=== PATIENT | male | born 2000 | race Caucasian/White ===

== ENCOUNTER 2021-07-08 21:49 | Inpatient (IN) | payer MEDICAID, SELFPAY ==
[2021-07-08 22:00] VITALS: BP 147/99; PULSE 80; RESP 16; TEMP 36.8; O2SAT 95
[2021-07-08 22:20] LABS: Basophils # 0.1 10^3/uL (0.0-0.1); Basophils % 0.8 %; Eosinophils # 0.2 10^3/uL (0.0-0.8); Eosinophils % 1.7 %; Hematocrit 43.1 % (42.0-52.0); Hemoglobin 13.6 g/dL (11.7-16.6); Lymphocytes # 1.1 10^3/uL (1.5-6.5); Lymphocytes % 11.6 %; Mean Corpuscular HGB Conc 31.6 g/dL (30.0-36.0); Mean Corpuscular Hemoglobin 30.4 pg (28.0-34.0); Mean Corpuscular Volume 96.2 fl (80-94); Mean Platelet Volume 10.5 fL (7.4-10.4); Monocytes % 10.2 %; Neutrophils # 6.85 10^3/uL (1.8-8.0); Neutrophils % 73.8 %; Nucleated Red Blood Cells % 0 %; Platelet Count 234 10^3/cmm (130-400); Red Blood Count 4.48 10^6/uL (4.1-5.3); Red Cell Distribution Width 13.8 % (12.1-15.1); White Blood Count 9.3 10^3/uL (4.5-13.0)
--- NOTE | 2021-07-08 22:29 | W.ED.PSYCH ---
HPI - Psych General: Chief Complaint: Psychiatric Symptoms Stated Complaint: MHE Time Seen by Provider: 07/08/21 22:11 Source: patient Mode of arrival: ambulatory Limitations: no limitations History of Present Illness: HPI Narrative: 20-year-old male states has been having some increased depression over the last 2 weeks. He states he recently started BuSpar and his depression has been worsening. He states that he voluntarily wants to get help. He states he voluntarily wants him admitted the psych unit. Denies any suicidality or plan. Denies any worsening proving factors. Associated symptoms: Reports depression Review of Systems Const: Denies: fever(s), chills, body aches or change in appetite Eyes: Denies: blurry vision or eye discomfort ENMT: Denies: throat pain or dental pain Card: Denies: chest pain Resp: Denies: dyspnea GI: Denies: abdominal pain, nausea, vomiting or diarrhea : Denies: dysuria Musc: Denies: neck pain or back pain Skin/Breast: Denies: rash Neuro: Denies: headache(s) Psych: Reports: depression Zachary/Lymph: Denies: easy bruising All/Imm: Denies: urticaria PFSH ED PFSH: Social History Smoking and tobacco status: current every day smoker e-cigarettes E-Cigarette Details: vaporizer device and with nicotine E-cig/vape details: 6 mg and smokeless tobacco Smokeless tobacco user: chewing tobacco Smokeless tobacco details: 1 can/3 days. Quit status (tobacco): has tried quititng Number of times tried to quit tobacco: 4 Second hand smoke exposure: No Physical Exam Const: COMMON NORMALS: no acute distress, patient oriented x3 and healthy appearing HENMT: COMMON NORMALS: normocephalic and atraumatic HEAD & SCALP: normocephalic and atraumatic Eye: COMMON NORMALS: Equal, round and reactive pupils present and EOMs intact bilaterally PUPIL: Yes Equal, round and reactive pupils present Neck/C-Spine: COMMON NORMALS: full ROM and supple Chest: COMMONS NORMALS: normal inspection of the chest and normal palpation of entire chest wall Resp: COMMON NORMALS: normal respiratory effort, No retractions, No use of accessory muscles and clear to auscultation bilaterally AUSCULTATION: clear to auscultation bilaterally Cardio: COMMON NORMALS: regular rate, regular rhythm and No murmurs present (Cardio) RATE: regular rate RHYTHM: regular rhythm GI: COMMON NORMALS: Normal to inspection, nondistended, normoactive bowel sounds present, Soft to palpation, non-tender and no masses PALPATION: Yes Soft to palpation Extremity: COMMON NORMALS: normal to inspection and full ROM Neuro: COMMON NORMALS: patient oriented x3, moves all extremities and no focal motor deficits Psych: COMMON NORMALS: mental status grossly normal, Normal thought process present and cooperative THOUGHT PROCESS: Normal thought process present Skin: COMMON NORMALS: no rashes or lesions noted and no wounds GENERAL SKIN EXAM: no rashes or lesions noted Course Vital Signs: Vital signs: Vital Signs Temperature 98.2 F 07/08/21 22:00 Pulse Rate 80 07/08/21 22:00 Respiratory Rate 16 07/08/21 22:00 Blood Pressure 147/99 07/08/21 22:00 Pulse Oximetry 95 07/08/21 22:00 MDM - Psych MDM Narrative: Medical decision making narrative: Patient presents here with depression voluntarily wants to be admitted to the psych facility. Patient is medically cleared I spoke to Dr. Marroquin who is admitting. Lab Data: Labs: Lab Results 07/08/21 22:15 WBC 9.3 10^3/uL 10^3/ uL (4.5-13.0) RBC 4.48 10^6/uL 10^6 /uL (4.1-5.3) Hgb 13.6 g/dL g/dL (11.7-16.6) Hct 43.1 % % (42.0-52.0) MCV 96.2 fl H fl (80-94) MCH 30.4 pg pg (28.0-34.0) MCHC 31.6 g/dL g/dL (30.0-36.0) RDW 13.8 % % (12.1-15.1) Plt Count 234 10^3/cmm 10^3 /cmm (130-400) MPV 10.5 fL H fL (7.4-10.4) Neut % (Auto) 73.8 % % Lymph % (Auto) 11.6 % % Nobles % (Auto) 10.2 % % Eos % (Auto) 1.7 % % Baso % (Auto) 0.8 % % Neut # (Auto) 6.85 10^3/uL 10^3 /uL (1.8-8.0) Lymph # (Auto) 1.1 10^3/uL L 10^ 3/uL (1.5-6.5) Nobles # (Auto) 1.0 10^3/uL H 10^ 3/uL (0.2-0.9) Eos # (Auto) 0.2 10^3/uL 10^3/ uL (0.0-0.8) Baso # (Auto) 0.1 10^3/uL 10^3/ uL (0.0-0.1) Nucleated RBC % (a uto) 0 % % Nucleated RBCs # 0.0 /100WBC /100W BC Discharge Plan Discharge Patient Disposition: Admitted As Inpatient Clinical Impression: Depression Qualifiers: Depression Type: unspecified Qualified Code(s): F32.9 - Major depressive disorder, single episode, unspecified Condition: Stable Coding Level of Care Code ED Steel Rule Die Maker for Diannag Fwd Exam Comprehensive
[2021-07-08 22:49] LABS: Alanine Aminotransferase 21 U/L (0-41); Albumin Level 4.2 g/dL (3.5-5.2); Alkaline Phosphatase 67 IU/L (40-130); Anion Gap 16.1 (5-19); Aspartate Amino Transferase 14 U/L (0-40); Blood Urea Nitrogen 11 mg/dL (6-20); Calcium 9.4 mg/dL (8.5-10.5); Carbon Dioxide 21 mmol/L (22-29); Chloride 107 mmol/L (98-107); Creatinine Clr Calc Pharmacy 130.8733; Globulin 1.9 g/dL (1.3-4.6); Glomerular Filtration Rate 143.8 mL/min (90-130); Glucose 110 mg/dL (65-115); Osmolality Calculated 290 mOsm/kg (285-295); Potassium 4.1 mmol/L (3.5-5.1); Sodium 140 mmol/L (136-145); Total Bilirubin 0.2 mg/dL (0.15-1.2); Total Protein 6.1 g/dL (6.6-8.7)
[2021-07-08 22:56] LABS: Acetaminophen < 5.0 ug/mL (10-30); Alcohol Level < 10 mg/dL (0-10); Salicylate < 0.3 mg/dL (3-10)
[2021-07-08 22:57] LABS: Amphetamines Screen Urine Negative (Negative); Barbiturates Screen Urine Negative (Negative); Benzodiazepines Screen Urine Negative (Negative); Cocaine Screen Urine Negative (Negative); Opiate Screen Urine Negative (Negative); PCP Screen Urine Negative (Negative); THC Screen Urine Positive (Negative)
--- NOTE | 2021-07-08 23:16 | PC.NURSE ---
called NPU to give report and nurse is not at nurses station at this time. stated nurse would call me back for report.
[2021-07-08 23:34] VITALS: RESP 16; TEMP 36.8; O2SAT 95
--- NOTE | 2021-07-08 23:34 | PC.NURSE ---
report called to Anne BELLO npu
[2021-07-08 23:41] VITALS: BP 153/90; PULSE 85; RESP 19; TEMP 36.6; O2SAT 96
[2021-07-09] MEDS: trazodone 50 mg Tablet PO ×2 (00:17→21:23)
[2021-07-09] MEDS: nicotine 2 mg Gum BUCCAL ×2 (00:17→22:28)
[2021-07-09 06:00] VITALS: BP 127/84; PULSE 95; RESP 20; TEMP 36.8; O2SAT 98
[2021-07-09] MEDS: tacrolimus 0.5 mg Capsule 1.5 MG PO ×2 (08:12→21:23)
[2021-07-09] MEDS: labetalol 200 mg Tablet PO ×2 (08:12→21:21)
[2021-07-09] MEDS: pantoprazole DR 40 mg Tablet PO (08:12)
[2021-07-09] MEDS: amlodipine 5 mg Tablet PO (08:12)
[2021-07-09] MEDS: buPROPion XL (24 HR) 150 mg Tablet PO (08:12)
[2021-07-09] MEDS: nicotine 21 mg Patch 1 PATCH TRANSDERMA (09:17)
--- NOTE | 2021-07-09 12:35 | NPU.GN ---
[facility] Topic:Coping Skills General Mood of Group:Refused group.
[2021-07-09 14:00] VITALS: BP 114/71; PULSE 68; RESP 18; TEMP 36.5; O2SAT 96
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
[2021-07-09 20:12] VITALS: BP 130/87; PULSE 72; RESP 15; TEMP 36.6; O2SAT 99
[2021-07-09] MEDS: doxepin 10 mg Capsule PO (21:20)
[2021-07-09 21:21] VITALS: BP 130/87
[2021-07-09] MEDS: losartan 50 mg Tablet 25 MG PO (21:21)
[2021-07-09] MEDS: escitalopram 10 mg Tablet 5 MG PO (21:24)
[2021-07-10 06:00] VITALS: BP 101/63; PULSE 68; RESP 18; TEMP 37.1; O2SAT 96
[2021-07-10] MEDS: amlodipine 5 mg Tablet PO (08:21)
[2021-07-10] MEDS: nicotine 2 mg Gum BUCCAL ×2 (08:21→17:29)
[2021-07-10] MEDS: pantoprazole DR 40 mg Tablet PO (08:21)
[2021-07-10] MEDS: escitalopram 10 mg Tablet PO (08:21)
[2021-07-10] MEDS: buPROPion XL (24 HR) 150 mg Tablet PO (08:22)
[2021-07-10] MEDS: labetalol 200 mg Tablet PO ×2 (08:23→22:07)
[2021-07-10] MEDS: tacrolimus 0.5 mg Capsule 1.5 MG PO ×2 (08:29→22:05)
[2021-07-10] MEDS: nicotine 21 mg Patch 1 PATCH TRANSDERMA (09:32)
[2021-07-10 14:00] VITALS: BP 105/71; PULSE 79; RESP 18; TEMP 36.9; O2SAT 97
--- NOTE | 2021-07-10 16:37 | PM.NPN ---
Subjective NPU Subjective: Interval history: Patient presents today reporting that he is feeling a little better. He denies any clear changes in his mood or depression. However, he does report that he slept as good as he is slept in a long time. And that he feels has lifted his mood a little. He endorses that overall things have been well here and he is optimistic about the possibility that the medication might help. He definitely denied any side effects of the medication. Mental Status Exam MSE Comments: This is a short, diminutive, white male, with hospital scrubs on with adequate grooming and eye contact. No abnormal movements except for psychomotor retardation. Cooperative with exam in no acute distress. Speech was decreased rate and volume. Mood described as depressed, but more optimistic; affect congruent. Thought process, organized. Thought content: patient denied any suicidal or homicidal ideation, there were no delusions reported or noted, patient denied any auditory or visual hallucinations. Attention, concentration, and memory appear intact but were not formally tested. He is alert and oriented times three. Insight and judgment are fair, impulse control limited. Vitals/I&O/Wt Last Vital Signs Temp 98.3 F 07/10/21 22:00 Pulse 87 07/10/21 22:00 Resp 19 H 07/10/21 22:00 BP 113/62 07/10/21 22:07 Pulse Ox 97 07/10/21 22:00 Data NPU : 07/08/21 22:15 07/08/21 22:15 A&P Additional A&P Information (1) Depression: (2) PTSD (post-traumatic stress disorder): (3) Methamphetamine abuse: Additional A&P Information This is a nearly 21-year-old, white male, with a long history of trauma, post-traumatic stress disorder, addiction, and loss, who presents struggling with his depression with a fairly recent medication change, open to changes in his medication. RECOMMENDATION AND PLAN: 1. Continue current medication. 2. Encourage individual, group, and milieu therapy. 3. Continue q-15 minute checks for safety. 4. Encourage sober living treatment after discharge at the highest level of care to which she is willing to commit. Involuntary Hold Information 96 Hour Hold: 96 Hour Involuntary Admission: No Attestations NPU Medical Necessity Statement*: Inpatient hospitalization is medically necessary and the clinically appropriate intervention, at this time. We will monitor medications and make changes as indicated. Likely length of stay is 2-4 days. Coding Level of Care Code Acute Talent Management Manager for Loida Menon
[2021-07-10 22:00] VITALS: BP 113/62; PULSE 87; RESP 19; TEMP 36.8; O2SAT 97
[2021-07-10] MEDS: doxepin 10 mg Capsule PO (22:04)
[2021-07-10] MEDS: trazodone 50 mg Tablet PO (22:06)
[2021-07-10 22:07] VITALS: BP 113/62
[2021-07-10] MEDS: losartan 50 mg Tablet 25 MG PO (22:07)
[2021-07-11 06:00] VITALS: BP 105/68; PULSE 61; RESP 17; TEMP 36.7; O2SAT 97
[2021-07-11] MEDS: tacrolimus 0.5 mg Capsule 1.5 MG PO ×2 (09:18→19:36)
[2021-07-11] MEDS: sulfamethoxazole-trimeth DS 160-800 mg Tablet 0.5 TAB PO (09:19)
[2021-07-11] MEDS: pantoprazole DR 40 mg Tablet PO (09:19)
[2021-07-11] MEDS: buPROPion XL (24 HR) 150 mg Tablet PO (09:19)
[2021-07-11] MEDS: predniSONE 10 mg Tablet PO (09:19)
[2021-07-11] MEDS: amlodipine 5 mg Tablet PO (09:19)
[2021-07-11] MEDS: escitalopram 10 mg Tablet PO (09:19)
[2021-07-11] MEDS: labetalol 200 mg Tablet PO ×2 (09:19→19:38)
[2021-07-11] MEDS: nicotine 21 mg Patch 1 PATCH TRANSDERMA (12:11)
--- NOTE | 2021-07-11 12:36 | PM.NPN ---
Subjective NPU Subjective: Interval history: Patient presents today reporting that he is feeling little bit better. He wondered about the length of time before the medication could be deemed effective though he reports that he does feel better today. We discussed his overall treatment, and making sure he gets in to see a parer since he has not seen one in a year, as well as the possibility of the COVID vaccination which he is currently against getting. We also discussed the risk benefits and alternatives of discharging in the next 48 hours possibly tomorrow and he understood and agreed to proceed as documented in this note. Mental Status Exam MSE Comments: This is a short, diminutive, white male, with hospital scrubs on with adequate grooming and eye contact. No abnormal movements except for psychomotor retardation. Cooperative with exam in no acute distress. Speech was decreased rate and volume. Mood described as a little better; affect congruent. Thought process, organized. Thought content: patient denied any suicidal or homicidal ideation, there were no delusions reported or noted, patient denied any auditory or visual hallucinations. Attention, concentration, and memory appear intact but were not formally tested. He is alert and oriented times three. Insight and judgment are fair, impulse control limited but improving. Vitals/I&O/Wt Last Vital Signs Temp 98.1 F 07/11/21 06:00 Pulse 61 07/11/21 06:00 Resp 17 07/11/21 06:00 BP 105/68 07/11/21 06:00 Pulse Ox 97 07/11/21 06:00 Data NPU : 07/08/21 22:15 07/08/21 22:15 A&P Additional A&P Information (1) Depression: (2) PTSD (post-traumatic stress disorder): (3) Methamphetamine abuse: This is a nearly 21-year-old, white male, with a long history of trauma, post-traumatic stress disorder, addiction, and loss, who presents struggling with his depression with a fairly recent medication change, open to changes in his medication. RECOMMENDATION AND PLAN: 1. Continue current medication. 2. Encourage individual, group, and milieu therapy. 3. Continue q-15 minute checks for safety. 4. Encourage sober living treatment after discharge at the highest level of care to which she is willing to commit. Involuntary Hold Information 96 Hour Hold: 96 Hour Involuntary Admission: No Attestations NPU Medical Necessity Statement*: Inpatient hospitalization is medically necessary and the clinically appropriate intervention, at this time. We will monitor medications and make changes as indicated. Likely length of stay is 1-3 days. Coding Level of Care Code Acute Automotive Brake Technician for Loida Menon
[2021-07-11 14:00] VITALS: BP 115/82; PULSE 71; RESP 20; TEMP 36.5; O2SAT 97
[2021-07-11] MEDS: hyDROXYzine 25 mg Capsule 50 MG PO (19:37)
[2021-07-11] MEDS: nicotine 2 mg Gum BUCCAL (19:37)
[2021-07-11] MEDS: trazodone 50 mg Tablet PO (19:37)
[2021-07-11] MEDS: doxepin 10 mg Capsule PO (19:38)
[2021-07-11] MEDS: losartan 50 mg Tablet 25 MG PO (19:38)
--- NOTE | 2021-07-11 19:40 | PC.NURSE ---
VISTERIL 50MG po GIVEN FOR ANXIETY REASSESSED @2034 PT REPORTS LESS ANXIETY.
[2021-07-11 20:19] VITALS: BP 111/75; PULSE 95; RESP 18; TEMP 36.8; O2SAT 97
[2021-07-12 06:00] VITALS: BP 111/75; PULSE 95; RESP 18; TEMP 36.8; O2SAT 97
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
[2021-07-12 09:02] VITALS: BP 111/75; PULSE 95; RESP 18; TEMP 36.8; O2SAT 97
[2021-07-12] MEDS: sulfamethoxazole-trimeth DS 160-800 mg Tablet 0.5 TAB PO (09:05)
[2021-07-12] MEDS: nicotine 21 mg Patch 1 PATCH TRANSDERMA (09:08)
[2021-07-12] MEDS: tacrolimus 0.5 mg Capsule 1.5 MG PO (09:52)
[2021-07-12] MEDS: predniSONE 10 mg Tablet PO (09:52)
[2021-07-12] MEDS: pantoprazole DR 40 mg Tablet PO (09:52)
[2021-07-12] MEDS: amlodipine 5 mg Tablet PO (09:52)
[2021-07-12] MEDS: labetalol 200 mg Tablet PO (09:53)
[2021-07-12] MEDS: buPROPion XL (24 HR) 150 mg Tablet PO (09:53)
[2021-07-12] MEDS: escitalopram 10 mg Tablet PO (09:53)
--- NOTE | 2021-07-12 15:32 | PC.RESP ---
SMOKING CESSATION INFORMATION SENT TO PATIENT.
== END 2021-07-12 16:00 | disposition home or self-care (01) | DRG 881 ==
LOC: ER 23:25 → NP 23:26
PROVIDERS: Admitting Provider Psychiatry & Neurology Psychiatry; Emergency Provider Emergency Medicine; PCP Family Medicine; Visit Provider Psychiatry & Neurology Psychiatry
DX: F32.9 Major depressive disorder, single episode, unspecified (principal); Z94.0 Kidney transplant status; F43.10 Post-traumatic stress disorder, unspecified; F15.10 Other stimulant abuse, uncomplicated; F12.90 Cannabis use, unspecified, uncomplicated; F17.290 Nicotine dependence, other tobacco product, uncomplicated; F17.220 Nicotine dependence, chewing tobacco, uncomplicated; Z62.810 Personal history of physical and sexual abuse in childhood; Z62.29 Other upbringing away from parents; Z81.8 Family history of other mental and behavioral disorders; Z81.3 Family history of other psychoactive substance abuse and dependence; Z81.1 Family history of alcohol abuse and dependence; Z79.899 Other long term (current) drug therapy
CPT/HCPCS: 80053; 80306; 80307; 85025; 97150; 97165; 99285; J7507; J7512; J7517

== ENCOUNTER → 2021-10-07 13:27 | Outpatient (BNVA) | payer MEDICAID, SELFPAY | PROVIDERS: PCP Family Medicine; Visit Provider Nurse Practitioner Family | DX: Z20.822 Contact with and (suspected) exposure to COVID-19 (principal) | CPT/HCPCS: 87635 ==

== ENCOUNTER 2022-02-03 14:37 | Emergency (ER) | payer MEDICARE, MEDICAID, SELFPAY ==
[2022-02-03 14:49] VITALS: BP 138/60; PULSE 86; RESP 16; TEMP 36.5; O2SAT 98; BMI 20.1
--- NOTE | 2022-02-03 15:05 | W.ED.GENADLT ---
HPI - General Adult General: Chief complaint: Anxiety Stated complaint: depression/anxiety Time Seen by Provider: 02/03/22 14:46 History of Present Illness: Patient is a 21-year-old male with a history anxiety and depression presenting to the emergency room for evaluation of worsening anxiety x 3-4 days. Patient tells me that he has been dealing with anxiety and paranoia for the last year. Patient currently takes hydralazine 50 mg of fluoxetine, 10 mg and haloperidol 5 mg daily for concerns of anxiety and takes medicine compliantly. Patient said in the last few days, he has feels overwhelmed and request for medicine for anxiety. Patient denies any focal medical complaints today. Patient denies any suicidal ideation or homicidal ideation. Patient denies any hearing voices or or seeing any hallucinations. Patient denies any paranoia since starting the Haldol. Onset: 3-4 days ago Duration:3-4days Location:home Severity:moderate Associated symptoms: Deny chest pain, dyspnea, nausea, rash, palpitations or vomiting Review of Systems Const: Denies: fever(s) or chills Eyes: Denies: change in vision ENMT: Denies: mouth pain Card: Denies: chest pain or palpitations Resp: Denies: dyspnea or non-productive cough GI: Denies: abdominal pain, nausea, vomiting or diarrhea : Denies: dysuria Musc: Denies: extremity pain Skin/Breast: Denies: rash or new lesions Neuro: Denies: weakness in extremities Psych: Reports: panic attacks Zachary/Lymph: Denies: easy bruising [facility] ED PFSH: Medical History (Updated 02/03/22 @ 15:08 by Andi Mahajan MD) Anxiety Depression Psychiatric care Social History Smoking and tobacco status: current every day smoker e-cigarettes E-Cigarette Details: vaporizer device and with nicotine E-cig/vape details: 6 mg and smokeless tobacco Smokeless tobacco user: chewing tobacco Smokeless tobacco details: 1 can/3 days. Quit status (tobacco): has tried quititng Number of times tried to quit tobacco: 4 Second hand smoke exposure: No Physical Exam Const: COMMON NORMALS: alert HENMT: COMMON NORMALS: atraumatic HEAD & SCALP: atraumatic MOUTH: moist mucous membranes not abnormal Eye: COMMON NORMALS: EOMs intact bilaterally and conjunctivae normal CONJUNCTIVA: Yes conjunctivae normal Neck/C-Spine: COMMON NORMALS: full ROM and supple Resp: COMMON NORMALS: normal respiratory effort and clear to auscultation bilaterally AUSCULTATION: clear to auscultation bilaterally Cardio: COMMON NORMALS: regular rate RATE: regular rate GI: COMMON NORMALS: Soft to palpation and non-tender PALPATION: Yes Soft to palpation Extremity: COMMON NORMALS: full ROM Neuro: SENSORIUM/ORIENTATION: Yes alert MOTOR EXAM: No Abnormal motor strength present and Other motor observations present (no focal motor deficits) Psych: COMMON NORMALS: speech normal SPEECH: Yes normal speech MOOD & AFFECT: Yes anxious Course Vital Signs: Vital signs: Vital Signs Temperature 97.7 F 02/03/22 14:49 Pulse Rate 86 02/03/22 14:49 Respiratory Rate 16 02/03/22 14:49 Blood Pressure 138/60 02/03/22 14:49 Pulse Oximetry 98 02/03/22 14:49 MDM - General Adult Medical Decision Making 21-year-old male presents emergency room with concerns for worsening anxiety in the last 3 to 4 days. On physical exam, patient is anxious mood. Rest of exam within normal limits. Patient denies any SI/HI or active hallucination currently. Patient received Ativan 2 mg with significant improvement in anxiety. I have given patient follow up with our rehabilitation caseworker to be seen by our outpatient C. Patient aware of a call from our rehabilitation caseworker to schedule for appointment(s) and verbalizes understanding of the importance of following up. Rx ativan PRN anxiety Disposition: Discharge. Patient counseled regarding diagnostic impression, treatment plan. Patient given ED strict return precautions to return for continuation, worsening, or development of new symptoms. Instructed to f/u w/ PCP regarding symptoms today. Patient verbalized understanding. Discharge Plan Discharge Patient Disposition: Home Clinical Impression: Anxiety Condition: Stable Prescriptions: New Ativan 1 mg tablet 1 mg PO Q8H PRN (Reason: anxiety) 3 Days Qty: 9 0RF No Action tacrolimus [Prograf] 1 mg capsule 1 mg PO Q12H 0RF Rx Instructions: take 1 1mg cap with tacrolimus 0.5mg cap every 12 hours mycophenolate mofetil 250 mg capsule 500 mg PO BID 0RF labetalol 200 mg tablet 200 mg PO BID 0RF tacrolimus 0.5 mg Capsule 0.5 mg PO Q12H 0RF Rx Instructions: take 1 0.5mg cap with tacrolimus 1mg cap every 12 hours losartan 50 mg Tablet 50 mg PO DAILY 0RF prednisone 10 mg Tablet 10 mg PO DAILY 0RF haloperidol 5 mg Tablet 2.5 mg PO BID 0RF Prozac 10 mg Tablet 10 mg PO DAILY 0RF hydroxyzine HCl 50 mg Tablet 50 mg PO Q6H PRN (Reason: Anxiety) 0RF amlodipine 5 mg Tablet 5 mg PO BEDTIME 0RF allopurinol 100 mg Tablet 100 mg PO DAILY 0RF Prilosec 40 mg Capsule,Delayed Release(Dr/Ec) 40 mg PO DAILY 0RF Vitamin D3 25 mcg (1,000 unit) Capsule 2,000 unit PO DAILY 0RF Discharge Orders: Discharge ED (Routine); Ordered 02/03/22 Ordered By: Andi Mahajan Referrals: Emanuel Pickett MD [Primary Care Provider] - Discharge Diet: Advance as tolerated Discharge Activity: Increase activity as tolerated Patient Instructions: Anxiety (ED) Activity Restrictions/Additional Instructions: Please come back to the emergency room if you need help, have any hallucinations, or you have any depression or have thoughts about hurting yourself or other people. Do not drive under the influence of medicine that you are prescribed today. Come back to the emergency room you have any new or concerning complaints. Our rehabilitation caseworker will have you [facility] in the next few days. You would be expected to have a phone call with our rehabilitation caseworker who will put you on the schedule. You can expect a call from us in the next 2-3 days. If you don't hear from us, call us back in the emergency room at [phone]. 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
[2022-02-03] MEDS: LORazepam 2 mg Tablet PO (15:19)
--- NOTE | 2022-02-03 15:34 | PC.PHAR ---
pt brought in medication bottles and pts verified medications
--- NOTE | 2022-02-05 13:45 | DCPLANNER ---
manager web application had message to speak with patient about services at [facility]. manager web application was unable to speak with patient or leave a voicemail at this time.
== END 2022-02-03 16:04 | disposition home or self-care (01) ==
PROVIDERS: Emergency Provider Emergency Medicine; PCP Family Medicine
DX: F41.9 Anxiety disorder, unspecified (principal); F17.290 Nicotine dependence, other tobacco product, uncomplicated; F17.220 Nicotine dependence, chewing tobacco, uncomplicated
CPT/HCPCS: 99283

== ENCOUNTER 2022-08-07 11:17 | Emergency (ER) | payer MEDICARE, MEDICAID, SELFPAY ==
[2022-08-07 11:24] VITALS: BP 132/94; BP 137/84; PULSE 67; PULSE 83; RESP 16; TEMP 36.5; O2SAT 97; O2SAT 99; BMI 23.8; BMI 25.6
--- NOTE | 2022-08-07 11:24 | ED_ITS ---
HPI - General Adult General: Chief complaint: Headache Stated complaint: nausea.migraine Time Seen by Provider: 08/07/22 11:21 History of Present Illness: Mr. 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 Onset of symptoms was this morning and was present when he awoke. Associated nausea which is improved with EMS treatment. Primarily frontal with some radiation of the back of the head and throbbing in nature. He does describe a history of headaches however he reports this is worse than prior though is now improved somewhat. Denies associated generalized changes in health. No new neurologic symptoms. No other specific changes in health, exacerbating, or alleviating factors identified. Onset (ago): hour(s) Location: head Severity: severe Quality: other (Throbbing) Associated symptoms: Reports nausea Review of Systems General: Reports: 10 or more systems reviewed and unremarkable except in HPI and below GI: Reports: nausea PFSH ED PFSH: Medical History Anxiety Depression Problems related to lack of adequate sleep Psychiatric care Substance abuse Social History Smoking and tobacco status: current every day smoker e-cigarettes E-Cigarette Details: vaporizer device and with nicotine E-cig/vape details: 6 mg and smokeless tobacco Smokeless tobacco user: chewing tobacco Smokeless tobacco details: 1 can/3 days. Quit status (tobacco): has tried quititng Number of times tried to quit tobacco: 4 Second hand smoke exposure: No Physical Exam Const: COMMON NORMALS: alert GENERAL APPEARANCE: cooperative and well developed HENMT: COMMON NORMALS: normocephalic and atraumatic HEAD & SCALP: normocephalic and atraumatic Eye: COMMON NORMALS: conjunctivae normal CONJUNCTIVA: Yes conjunctivae normal SCLERA: sclerae normal Neck/C-Spine: COMMON NORMALS: supple GENERAL: Yes trachea midline Resp: COMMON NORMALS: normal respiratory effort and clear to auscultation bilaterally EFFORT & INSPECTION: Yes able to speak in complete sentences AUSCULTATION: clear to auscultation bilaterally Cardio: COMMON NORMALS: regular rate and regular rhythm RATE: regular rate RHYTHM: regular rhythm GI: COMMON NORMALS: Soft to palpation PALPATION: Yes Soft to palpation and No Tenderness to palpation present (GI) Extremity: GENERAL: Yes normal exam except as noted and No edema Neuro: COMMON NORMALS: moves all extremities SENSORIUM/ORIENTATION: Yes alert and No Orientation impaired Psych: COMMON NORMALS: mental status grossly normal and Normal thought process present THOUGHT PROCESS: Normal thought process present Course Vital Signs: Vital signs: Vital Signs Temperature 97.7 F 08/07/22 11:24 Pulse Rate 78 08/07/22 13:37 Respiratory Rate 18 08/07/22 11:28 Blood Pressure 130/83 08/07/22 13:37 Pulse Oximetry 98 08/07/22 13:37 Oxygen Delivery Me thod 08/07/22 11:28 [facility] - General Adult Medical Decision Making 22-year-old gentleman with complex history including renal transplant presenting with GI complaints. Patient is nontoxic in appearance and vitals are satisfactory. Lab was notable for no leukocytosis, normal hemoglobin. Metabolic panel with mild evidence of dehydration. Given change in characteristic of headache CT imaging felt to be warranted and negative for acute intracranial pathology. Patient had significant improvement in symptoms with migraine cocktail medications. Satisfactory for outpatient management. The results of ED evaluation were discussed with the patient including prescriptions and/or symptomatic cares (if applicable) including appropriate and responsible use, followup plan, and return precautions. The patient verbalized understanding and felt safe for discharge. Medical Records I reviewed the patient's medical records. Lab Data I reviewed the patient's lab results. : 08/07/22 12:10 08/07/22 12:[address] 08/07/22 12:28 IMPRESSION: 1. No evidence of intracranial hemorrhage or mass effect. 2. No acute intracranial findings. Laboratory Results WBC 9.4 10^3/uL (4.0-10.0) 08/07/22 12:10 RBC 4.17 10^6/uL (4.1-5.3) 08/07/22 12:10 Hgb 12.4 g/dL (11.7-16.6) 08/07/22 12:10 Hct 37.1 % (42.0-52.0) L 08/07/22 12:10 MCV 89.0 fl (80-94) 08/07/22 12:10 MCH 29.7 pg (28.0-34.0) 08/07/22 12:10 MCHC 33.4 g/dL (30.0-36.0) 08/07/22 12:10 RDW 13.2 % (12.1-15.1) 08/07/22 12:10 Plt Count 250 10^3/cmm (130-400) 08/07/22 12:10 MPV 10.2 fL (7.4-10.4) 08/07/22 12:10 Neut % (Auto) 75.2 % 08/07/22 12:10 Lymph % (Auto) 8.7 % 08/07/22 12:10 [place] % (Auto) 13.2 % 08/07/22 12:10 Eos % (Auto) 1.9 % 08/07/22 12:10 Baso % (Auto) 0.6 % 08/07/22 12:10 Neut # (Auto) 7.08 10^3/uL (1.8-7.7) 08/07/22 12:10 Lymph # (Auto) 0.8 10^3/uL (0.8-4.8) 08/07/22 12:10 [place] # (Auto) 1.2 10^3/uL (0.2-0.9) H 08/07/22 12:10 Eos # (Auto) 0.2 10^3/uL (0.0-0.8) 08/07/22 12:10 Baso # (Auto) 0.1 10^3/uL (0.0-0.1) 08/07/22 12:10 Nucleated RBC % (auto) 0 % 08/07/22 12:10 Nucleated RBCs # 0.0 /100WBC 08/07/22 12:10 Sodium 134 mmol/L (136-145) L 08/07/22 12:10 Potassium 3.6 mmol/L (3.5-5.1) 08/07/22 12:10 Chloride 102 mmol/L (98-107) 08/07/22 12:10 Carbon Dioxide 18 mmol/L (22-29) L 08/07/22 12:10 Anion Gap 17.6 (5-19) 08/07/22 12:10 BUN 16 mg/dL (6-20) 08/07/22 12:10 Creatinine 1.1 mg/dL (0.7-1.2) 08/07/22 12:10 GFR Calculation 83.7 mL/min (90-130) L 08/07/22 12:10 Glucose 121 mg/dL (65-115) H 08/07/22 12:10 Calculated Osmolality 280 mOsm/kg (285-295) L 08/07/22 12:10 Calcium 9.5 mg/dL (8.5-10.5) 08/07/22 12:10 Total Bilirubin 0.4 mg/dL (0.15-1.2) 08/07/22 12:10 AST 12 U/L (0-40) 08/07/22 12:10 ALT 10 U/L (0-41) 08/07/22 12:10 Alkaline Phosphatase 128 U/L (40-130) 08/07/22 12:10 Total Protein 7.3 g/dL (6.6-8.7) 08/07/22 12:10 Albumin 4.1 g/dL (3.5-5.2) 08/07/22 12:10 Globulin 3.2 g/dL (1.3-4.6) 08/07/22 12:10 Discharge Plan Discharge Patient Disposition: Home Clinical Impression: Headache, Nausea Condition: Stable Prescriptions: New Reglan 10 mg tablet 10 mg PO Q6H PRN (Reason: headache) Qty: 10 0RF No Action tacrolimus [Prograf] 1 mg capsule 1 mg PO Q12H Rx Instructions: take 1 1mg cap with tacrolimus 0.5mg cap every 12 hours mycophenolate mofetil 250 mg capsule 500 mg PO BID labetalol 200 mg tablet 200 mg PO BID tacrolimus 0.5 mg Capsule 0.5 mg PO Q12H Rx Instructions: take 1 0.5mg cap with tacrolimus 1mg cap every 12 hours trazodone 50 mg tablet 50 mg PO BEDTIME doxepin 10 mg capsule 10 mg PO BEDTIME losartan 50 mg Tablet 50 mg PO DAILY prednisone 10 mg Tablet 10 mg PO DAILY amlodipine 5 mg Tablet 5 mg PO BEDTIME allopurinol 100 mg Tablet 100 mg PO DAILY omeprazole [Prilosec] 40 mg Capsule,Delayed Release(Dr/Ec) 40 mg PO DAILY cholecalciferol (vitamin D3) [Vitamin D3] 25 mcg (1,000 unit) Capsule 2,000 unit PO DAILY Discharge Orders: Discharge ED (Routine); Ordered 08/07/22 Ordered By: Adan Pisano Referrals: Emanuel Pickett MD [Primary Care Provider] - Discharge Diet: Usual diet Discharge Activity: Increase activity as tolerated Patient Instructions: Acute Headache (ED) Activity Restrictions/Additional Instructions: Thank you for visiting the emergency department. You were seen and evaluated for headache with nausea. The exact cause of your symptoms is unclear though may be related to migraine headache or other underlying headache disorder. We are pleased that you had improvement in the emergency department. I can prescribe Reglan which you can take with Benadryl, Tylenol, and ensure that you are staying hydrated for continued headache or nausea. Please follow-up with a primary care provider. Return to the emergency department for worsening symptoms, any new neurologic changes, or anything else that you are concerned about a feel needs emergency department evaluation. Coding Level of Care Code ED Digital Sales Manager for Loida Fwd Exam Comprehensive
[2022-08-07 11:28] VITALS: BP 132/94; PULSE 67; RESP 18; O2SAT 97
[2022-08-07] MEDS: acetaminophen 500 mg Tablet 1000 MG PO (12:05)
[2022-08-07] MEDS: metoclopramide 5 mg/mL SDV 2 mL 10 MG IVP (12:09)
[2022-08-07] MEDS: sodium chloride 0.9% 1,000 ML 999 ML IV (12:09)
[2022-08-07] MEDS: diphenhydrAMINE 50 mg/mL SDV 1mL 12.5 MG IVP (12:09)
[2022-08-07 12:27] LABS: Basophils # 0.1 10^3/uL (0.0-0.1); Basophils % 0.6 %; Eosinophils # 0.2 10^3/uL (0.0-0.8); Eosinophils % 1.9 %; Hematocrit 37.1 % (42.0-52.0); Hemoglobin 12.4 g/dL (11.7-16.6); Lymphocytes # 0.8 10^3/uL (0.8-4.8); Lymphocytes % 8.7 %; Mean Corpuscular HGB Conc 33.4 g/dL (30.0-36.0); Mean Corpuscular Hemoglobin 29.7 pg (28.0-34.0); Mean Platelet Volume 10.2 fL (7.4-10.4); Monocytes # 1.2 10^3/uL (0.2-0.9); Monocytes % 13.2 %; Neutrophils # 7.08 10^3/uL (1.8-7.7); Neutrophils % 75.2 %; Nucleated Red Blood Cells % 0 %; Platelet Count 250 10^3/cmm (130-400); Red Blood Count 4.17 10^6/uL (4.1-5.3); Red Cell Distribution Width 13.2 % (12.1-15.1); White Blood Count 9.4 10^3/uL (4.0-10.0)
--- NOTE | 2022-08-07 12:28 | CT_ITS ---
WS: [id number] CT HEAD TECHNIQUE: Noncontrast CT of the head obtained from the skullbase to the vertex. CLINICAL INFORMATION: headache COMPARISON: None. DLP: 1019.[address] scans at [facility] use at least one of these dose optimization techniques: automated e xposure control; mA and/or kV adjustment per patient size (includes targeted exams where dose is matc hed to clinical indication); or iterative reconstruction. FINDINGS: No evidence of intracranial hemorrhage or mass effect. Ventricular system and basal cisterns are phipps nt. No extra-axial fluid collections. No evidence of mass or mass effect. Normal aguayo-white different iation. Paranasal sinuses and mastoid air cells are well aerated. Mucosal thickening sphenoid sinus. .Normal visualized soft tissues. CT/CT head wo con* [id number] IMPRESSION: 1. No evidence of intracranial hemorrhage or mass effect. 2. No acute intracranial findings.
[2022-08-07 12:44] LABS: Alanine Aminotransferase 10 U/L (0-41); Albumin Level 4.1 g/dL (3.5-5.2); Alkaline Phosphatase 128 U/L (40-130); Aspartate Amino Transferase 12 U/L (0-40); Chloride 102 mmol/L (98-107); Glucose 121 mg/dL (65-115); Potassium 3.6 mmol/L (3.5-5.1); Sodium 134 mmol/L (136-145)
[2022-08-07 12:59] LABS: Anion Gap 17.6 (5-19); Blood Urea Nitrogen 16 mg/dL (6-20); Calcium 9.5 mg/dL (8.5-10.5); Carbon Dioxide 18 mmol/L (22-29); Globulin 3.2 g/dL (1.3-4.6); Glomerular Filtration Rate 83.7 mL/min (90-130); Osmolality Calculated 280 mOsm/kg (285-295); Total Bilirubin 0.4 mg/dL (0.15-1.2); Total Protein 7.3 g/dL (6.6-8.7)
[2022-08-07 13:37] VITALS: BP 130/83; PULSE 78; O2SAT 98
== END 2022-08-07 13:39 | disposition home or self-care (01) ==
PROVIDERS: Emergency Provider Emergency Medicine; PCP Family Medicine
DX: R51.9 Headache, unspecified (principal); R11.0 Nausea; F17.290 Nicotine dependence, other tobacco product, uncomplicated
CPT/HCPCS: 36415; 70450; 80053; 85025; 96361; 96374; 99285; J1200; J2765; J7030

== ENCOUNTER 2023-01-21 14:45 | Emergency (ER) | payer MEDICARE, MEDICAID, SELFPAY ==
[2023-01-21] VITALS (7 sets, daily range): BP systolic 129–151; BP diastolic 84–110; PULSE 81–88; RESP 16–20; TEMP 36.6; O2SAT 99–100; BMI 23.8
--- NOTE | 2023-01-21 14:44 | ED_ITS ---
Documented by User: Adan Pisano MD 02/04/23 01:46 HPI - Abdominal Pain General: Chief Complaint: Abdominal Pain Stated Complaint: Abdominal Pain Time Seen by Provider: 01/21/23 21:14 History of Present Illness: Mr Sainz is a 22-year-old gentleman with history of renal transplant secondary to FSGS presenting to the emergency department for abdominal pain. He reports 3 days ago he drank more soda than typical and subsequently developed flank pain on the right side near where his transplant is. Notes associated generalized malaise with some nausea and vomiting. Intensity is moderate to severe. No other specific changes in health, exacerbating, or alleviating factors identified. Patient typically follows with [facility] Onset (ago): day(s) Pain Consistency: constant Location: RLQ Quality: cramping and aching Exacerbating factors: nothing Relieving factors: nothing Associated Symptoms: Reports nausea and vomiting Review of Systems General: Reports: 10 or more systems reviewed and unremarkable except in HPI and below GI: Reports: nausea and vomiting PFSH ED PFSH: Medical History Anxiety Depression Problems related to lack of adequate sleep Psychiatric care Substance abuse Social History Smoking and tobacco status: current every day smoker e-cigarettes E-Cigarette Details: vaporizer device and with nicotine E-cig/vape details: 6 mg and smokele ss tobacco Smokeless tobacco user: chewing tobacco Smokeless tobacco details: 1 can/3 days. Quit status (tobacco): has tried quititng Number of times tried to quit tobacco: 4 Second hand smoke exposure: No Physical Exam Const: COMMON NORMALS: alert GENERAL APPEARANCE: cooperative and well developed HENMT: COMMON NORMALS: normocephalic and atraumatic HEAD & SCALP: normocephalic and atraumatic Eye: COMMON NORMALS: conjunctivae normal CONJUNCTIVA: Yes conjunctivae normal SCLERA: sclerae normal Neck/C-Spine: COMMON NORMALS: supple GENERAL: Yes trachea midline Resp: COMMON NORMALS: normal respiratory effort EFFORT & INSPECTION: Yes able to speak in complete sentences Cardio: COMMON NORMALS: regular rate and regular rhythm RATE: regular rate RHYTHM: regular rhythm GI: COMMON NORMALS: Soft to palpation PALPATION: Yes Soft to palpation, Yes Tenderness to palpation present (GI) Details: RLQ, No Guarding due to palpation present (GI) and No Rigid due to palpation Extremity: GENERAL: Yes normal exam except as noted and No edema Neuro: COMMON NORMALS: moves all extremities SENSORIUM/ORIENTATION: Yes alert and No Orientation impaired Psych: COMMON NORMALS: mental status grossly normal and Normal thought process present THOUGHT PROCESS: Normal thought process present Course Vital Signs: Vital signs: Vital Signs Temperature 97.9 F 01/21/23 14:51 Pulse Rate 83 01/21/23 21:20 Respiratory Rate 16 01/21/23 21:20 Blood Pressure 139/94 01/21/23 21:20 Pulse Oximetry 99 01/21/23 21:20 Oxygen Delivery Me thod Room Air 01/21/23 21:20 MDM - Abdominal Pain Medical Decision Making 22-year-old male with significant past medical history of renal transplant presenting to the emergency department for 2-day history of abdominal pain. Exam as above. No evidence of acute surgical abdomen. Labs notable for normal white blood cell count, hemoglobin 10.6, normal platelet count. Metabolic panel notable for significant elevation in creatinine compared to recent value from 6 months ago. He does report a hospitalization in the meantime where his discharge creatinine 2.1, admission creatinine 2.5 from past hospitalization in November. Urinalysis demonstrates 3+ protein on dipstick, 0- 4 white blood cells, 0-4 hyaline casts. Renal transplant ultrasound shows no hydronephrosis or perinephric fluid and reportedly appears within normal limits. I discussed the case with nephrology at [facility] who recommended transfer for further evaluation of rejection. Medical Records I reviewed the patient's medical records. Lab Data I reviewed the patient's lab results. 01/21/23 16:05 01/21/23 16:05 Labs/Radiology: Laboratory Results WBC 7.5 10^3/uL (4.0-10.0) 01/21/23 16:05 RBC 3.65 10^6/uL (4.1-5.3) L 01/21/23 16:05 Hgb 10.6 g/dL (11.7-16.6) L 01/21/23 16:05 Hct 32.8 % (42.0-52.0) L 01/21/23 16:05 MCV 89.9 fl (80-94) 01/21/23 16:05 MCH 29.0 pg (28.0-34.0) 01/21/23 16:05 MCHC 32.3 g/dL (30.0-36.0) 01/21/23 16:05 RDW 14.4 % (12.1-15.1) 01/21/23 16:05 Plt Count 223 10^3/cmm (130-400) 01/21/23 16:05 MPV 10.3 fL (7.4-10.4) 01/21/23 16:05 Neut % (Auto) 78.0 % 01/21/23 16:05 Lymph % (Auto) 7.6 % 01/21/23 16:05 [place] % (Auto) 12.5 % 01/21/23 16:05 Eos % (Auto) 1.1 % 01/21/23 16:05 Baso % (Auto) 0.5 % 01/21/23 16:05 Neut # (Auto) 5.87 10^3/uL (1.8-7.7) 01/21/23 16:05 Lymph # (Auto) 0.6 10^3/uL (0.8-4.8) L 01/21/23 16:05 [place] # (Auto) 0.9 10^3/uL (0.2-0.9) 01/21/23 16:05 Eos # (Auto) 0.1 10^3/uL (0.0-0.8) 01/21/23 16:05 Baso # (Auto) 0.0 10^3/uL (0.0-0.1) 01/21/23 16:05 Nucleated RBC % (auto) 0 % 01/21/23 16:05 Nucleated RBCs # 0.0 /100WBC 01/21/23 16:05 Sodium 140 mmol/L (136-145) 01/21/23 16:05 Potassium 3.9 mmol/L (3.5-5.1) 01/21/23 16:05 Chloride 105 mmol/L (98-107) 01/21/23 16:05 Carbon Dioxide 22 mmol/L (22-29) 01/21/23 16:05 Anion Gap 16.9 (5-19) 01/21/23 16:05 BUN 31 mg/dL (6-20) H 01/21/23 16:05 Creatinine 2.9 mg/dL (0.7-1.2) H 01/21/23 16:05 GFR Calculation 27.3 mL/min (90-130) L 01/21/23 16:05 Glucose 76 mg/dL (65-115) 01/21/23 16:05 Calculated Osmolality 295 mOsm/kg (285-295) 01/21/23 16:05 Lactate 0.9 mmol/L (0.5-2.2) 01/21/23 16:05 Calcium 9.3 mg/dL (8.5-10.5) 01/21/23 16:05 Total Bilirubin 0.4 mg/dL (0.15-1.2) 01/21/23 16:05 AST 11 U/L (0-40) 01/21/23 16:05 ALT 15 U/L (0-41) 01/21/23 16:05 Alkaline Phosphatase 102 U/L (40-130) 01/21/23 16:05 Total Protein 7.9 g/dL (6.6-8.7) 01/21/23 16:05 Albumin 4.9 g/dL (3.5-5.2) 01/21/23 16:05 Globulin 3.0 g/dL (1.3-4.6) 01/21/23 16:05 Lipase 21 U/L (13-60) 01/21/23 16:05 Urine Color Yellow (Yellow) 01/21/23 15:38 Urine Appearance Clear (CLEAR) 01/21/23 15:38 Urine pH 5 (5-7) 01/21/23 15:38 Ur Specific [place] 1.020 (1.005-1.030) 01/21/23 15:38 Urine Protein 3+ (Negative) H 01/21/23 15:38 Urine Glucose (UA) Norm (Normal) 01/21/23 15:38 Urine Ketones Negative (Negative) 01/21/23 15:38 Urine Blood Neg (Negative) 01/21/23 15:38 Urine Nitrate Negative (Negative) 01/21/23 15:38 Urine Bilirubin Neg (Negative) 01/21/23 15:38 Urine Urobilinogen Norm mg/dL (Negative) 01/21/23 15:38 Ur Leukocyte Esterase Negative (Negative) 01/21/23 15:38 Urine RBC None /hpf (0-2) 01/21/23 15:38 Urine WBC 0-4 /hpf (0-5) H 01/21/23 15:38 Ur Squamous Epith Cells None /hpf (0-5) 01/21/23 15:38 Amorphous Sediment Not Reportable 01/21/23 15:38 Urine Bacteria Trace /hpf (NONE) 01/21/23 15:38 Hyaline Casts 0-4 /lpf H 01/21/23 15:38 Ur Random Sodium 61 mmol/L 01/21/23 15:39 Urine Creatinine 132 mg/dL (39-259) 01/21/23 15:39 Tacrolimus (FK 506) 3.7 mcg/L L 01/21/23 16:05 Discharge Plan Discharge Patient Disposition: Left Against Medical Advice Clinical Impression: Abdominal pain Condition: Stable Prescriptions: No Action tacrolimus [Prograf] 1 mg capsule 1 mg PO Q12H Rx Instructions: take 1 1mg cap with tacrolimus 0.5mg cap every 12 hours mycophenolate mofetil 250 mg capsule 500 mg PO BID labetalol 200 mg tablet 200 mg PO BID tacrolimus 0.5 mg Capsule 0.5 mg PO Q12H Rx Instructions: take 1 0.5mg cap with tacrolimus 1mg cap every 12 hours metoclopramide HCl [Reglan] 10 mg tablet 10 mg PO Q6H PRN (Reason: headache) Qty: 10 0RF losartan 50 mg Tablet 50 mg PO DAILY amlodipine 5 mg Tablet 5 mg PO BEDTIME allopurinol 100 mg Tablet 100 mg PO DAILY cholecalciferol (vitamin D3) [Vitamin D3] 25 mcg (1,000 unit) Capsule 2,000 unit PO DAILY prednisone 20 mg tablet 20 mg PO DAILY trazodone 100 mg tablet 100 mg PO QPM methylphenidate HCl 5 mg tablet 5 mg PO BID sumatriptan succinate 50 mg tablet 50 mg PO DAILY pantoprazole 40 mg tablet,delayed release (DR/EC) 40 mg PO DAILY buspirone 10 mg tablet 10 mg PO BID mirtazapine 15 mg tablet 15 mg PO DAILY ondansetron 4 mg tablet,disintegrating 4 mg PO Q8H PRN (Reason: Nausea) Referrals: Emanuel Pickett MD [Primary Care Provider] - Coding Level of Care Code ED Muffler Tender for Chg Fwd Documented by User: Serafin Peña MD 01/21/23 21:30 HPI - Abdominal Pain General: Chief Complaint: Abdominal Pain Stated Complaint: Abdominal Pain Time Seen by Provider: 01/21/23 21:14 PFS ED PFSH: Medical History Anxiety Depression Problems related to lack of adequate sleep Psychiatric care Substance abuse Social History Smoking and tobacco status: current every day smoker e-cigarettes E-Cigarette Details: vaporizer device and with nicotine E-cig/vape details: 6 mg and smokeless tobacco Smokeless tobacco user: chewing tobacco Smokeless tobacco details: 1 can/3 days. Quit status (tobacco): has tried quititng Number of times tried to quit tobacco: 4 Second hand smoke exposure: No Course Vital Signs: Vital signs: Vital Signs Temperature 97.9 F 01/21/23 14:51 Pulse Rate 83 01/21/23 21:20 Respiratory Rate 16 01/21/23 21:20 Blood Pressure 139/94 01/21/23 21:20 Pulse Oximetry 99 01/21/23 21:20 Oxygen Delivery Me thod Room Air 01/21/23 21:20 MDM - Abdominal Pain Medical Decision Making 22-year-old male with significant past medical history of renal transplant presenting to the emergency department for 2-day history of abdominal pain. Exam as above. No evidence of acute surgical abdomen. Labs notable for normal white blood cell count, hemoglobin 10.6, normal platelet count. Metabolic panel notable for significant elevation in creatinine compared to recent value from 6 months ago. He does report a hospitalization in the meantime where his discharge creatinine 2.1, admission creatinine 2.5 from past hospitalization in November. Urinalysis demonstrates 3+ protein on dipstick, 0- 4 white blood cells, 0-4 hyaline casts. Renal transplant ultrasound shows no hydronephrosis or perinephric fluid and re portedly appears within normal limits. I discussed the case with nephrology at [facility] who recommended transfer for further evaluation of rejection. Dr. Butcher had this patient set up for transfer to [facility] while patient is sent here he decided that he did not want to go up spoke to him twice and informed him that his transplant physicians up there wanted him transferred as there is concern with his renal function I informed him that it is highly recommended for him to go if he signed out AMA he could go into renal rejection and failure he understands this and he did sign out AGAINST MEDICAL ADVICE he has medical decision-making capacity. Lab Data 01/21/23 16:05 01/21/23 16:05 Labs/Radiology: Laboratory Results WBC 7.5 10^3/uL (4.0-10.0) 01/21/23 16:05 RBC 3.65 10^6/uL (4.1-5.3) L 01/21/23 16:05 Hgb 10.6 g/dL (11.7-16.6) L 01/21/23 16:05 Hct 32.8 % (42.0-52.0) L 01/21/23 16:05 MCV 89.9 fl (80-94) 01/21/23 16:05 MCH 29.0 pg (28.0-34.0) 01/21/23 16:05 MCHC 32.3 g/dL (30.0-36.0) 01/21/23 16:05 RDW 14.4 % (12.1-15.1) 01/21/23 16:05 Plt Count 223 10^3/cmm (130-400) 01/21/23 16:05 MPV 10.3 fL (7.4-10.4) 01/21/23 16:05 Neut % (Auto) 78.0 % 01/21/23 16:05 Lymph % (Auto) 7.6 % 01/21/23 16:05 [place] % (Auto) 12.5 % 01/21/23 16:05 Eos % (Auto) 1.1 % 01/21/23 16:05 Baso % (Auto) 0.5 % 01/21/23 16:05 Neut # (Auto) 5.87 10^3/uL (1.8-7.7) 01/21/23 16:05 Lymph # (Auto) 0.6 10^3/uL (0.8-4.8) L 01/21/23 16:05 [place] # (Auto) 0.9 10^3/uL (0.2-0.9) 01/21/23 16:05 Eos # (Auto) 0.1 10^3/uL (0.0-0.8) 01/21/23 16:05 Baso # (Auto) 0.0 10^3/uL (0.0-0.1) 01/21/23 16:05 Nucleated RBC % (auto) 0 % 01/21/23 16:05 Nucleated RBCs # 0.0 /100WBC 01/21/23 16:05 Sodium 140 mmol/L (136-145) 01/21/23 16:05 Potassium 3.9 mmol/L (3.5-5.1) 01/21/23 16:05 Chloride 105 mmol/L (98-107) 01/21/23 16:05 Carbon Dioxide 22 mmol/L (22-29) 01/21/23 16:05 Anion Gap 16.9 (5-19) 01/21/23 16:05 BUN 31 mg/dL (6-20) H 01/21/23 16:05 Creatinine 2.9 mg/dL (0.7-1.2) H 01/21/23 16:05 GFR Calculation 27.3 mL/min (90-130) L 01/21/23 16:05 Glucose 76 mg/dL (65-115) 01/21/23 16:05 Calculated Osmolality 295 mOsm/kg (285-295) 01/21/23 16:05 Lactate 0.9 mmol/L (0.5-2.2) 01/21/23 16:05 Calcium 9.3 mg/dL (8.5-10.5) 01/21/23 16:05 Total Bilirubin 0.4 mg/dL (0.15-1.2) 01/21/23 16:05 AST 11 U/L (0-40) 01/21/23 16:05 ALT 15 U/L (0-41) 01/21/23 16:05 Alkaline Phosphatase 102 U/L (40-130) 01/21/23 16:05 Total Protein 7.9 g/dL (6.6-8.7) 01/21/23 16:05 Albumin 4.9 g/dL (3.5-5.2) 01/21/23 16:05 Globulin 3.0 g/dL (1.3-4.6) 01/21/23 16:05 Lipase 21 U/L (13-60) 01/21/23 16:05 Urine Color Yellow (Yellow) 01/21/23 15:38 Urine Appearance Clear (CLEAR) 01/21/23 15:38 Urine pH 5 (5-7) 01/21/23 15:38 Ur Specific [place] 1.020 (1.005-1.030) 01/21/23 15:38 Urine Protein 3+ (Negative) H 01/21/23 15:38 Urine Glucose (UA) Norm (Normal) 01/21/23 15:38 Urine Ketones Negative (Negative) 01/21/23 15:38 Urine Blood Neg (Negative) 01/21/23 15:38 Urine Nitrate Negative (Negative) 01/21/23 15:38 Urine Bilirubin Neg (Negative) 01/21/23 15:38 Urine Urobilinogen Norm mg/dL (Negative) 01/21/23 15:38 Ur Leukocyte Esterase Negative (Negative) 01/21/23 15:38 Urine RBC None /hpf (0-2) 01/21/23 15:38 Urine WBC 0-4 /hpf (0-5) H 01/21/23 15:38 Ur Squamous Epith Cells None /hpf (0-5) 01/21/23 15:38 Amorphous Sediment Not Reportable 01/21/23 15:38 Urine Bacteria Trace /hpf (NONE) 01/21/23 15:38 Hyaline Casts 0-4 /lpf H 01/21/23 15:38 Ur Random Sodium 61 mmol/L 01/21/23 15:39 Urine Creatinine 132 mg/dL (39-259) 01/21/23 15:39 Tacrolimus (FK 506) 3.7 mcg/L L 01/21/23 16:05 Discharge Plan Discharge Patient Disposition: Left Against Medical Advice Clinical Impression: Abdominal pain Condition: Stable Prescriptions: No Action tacrolimus [Prograf] 1 mg capsule 1 mg PO Q12H Rx Instructions: take 1 1mg cap with tacrolimus 0.5mg cap every 12 hours mycophenolate mofetil 250 mg capsule 500 mg PO BID labetalol 200 mg tablet 200 mg PO BID tacrolimus 0.5 mg Capsule 0.5 mg PO Q12H Rx Instructions: take 1 0.5mg cap with tacrolimus 1mg cap every 12 hours metoclopramide HCl [Reglan] 10 mg tablet 10 mg PO Q6H PRN (Reason: headache) Qty: 10 0RF losartan 50 mg Tablet 50 mg PO DAILY amlodipine 5 mg Tablet 5 mg PO BEDTIME allopurinol 100 mg Tablet 100 mg PO DAILY cholecalciferol (vitamin D3) [Vitamin D3] 25 mcg (1,000 unit) Capsule 2,000 unit PO DAILY prednisone 20 mg tablet 20 mg PO DAILY trazodone 100 mg tablet 100 mg PO QPM methylphenidate HCl 5 mg tablet 5 mg PO BID sumatriptan succinate 50 mg tablet 50 mg PO DAILY pantoprazole 40 mg tablet,delayed release (DR/EC) 40 mg PO DAILY buspirone 10 mg tablet 10 mg PO BID mirtazapine 15 mg tablet 15 mg PO DAILY ondansetron 4 mg tablet,disintegrating 4 mg PO Q8H PRN (Reason: Nausea) Referrals: Emanuel Pickett MD [Primary Care Provider] - Coding Level of Care Code ED Muffler Tender for Loida Menon
--- NOTE | 2023-01-21 16:05 | PC.NURSE ---
Medications were late due to inability to get IV. Left AC just now placed.
[2023-01-21] MEDS: sodium chloride 0.9% 1,000 ML 999 ML IV (16:08)
[2023-01-21] MEDS: morphine 4 mg/mL SDV 1 mL IVP ×2 (16:10→17:04)
[2023-01-21] MEDS: ondansetron 2 mg/ML SDV 2 mL 4 MG IVP (16:10)
[2023-01-21 16:12] LABS: Add Urine Microscopic? YES; Bilirubin Urine Neg (Negative); Blood Urine Neg (Negative); Glucose Urine UA Norm (Normal); Ketones Urine Negative (Negative); Leukocyte Esterase Urine Negative (Negative); Nitrate Urine Negative (Negative); Protein Urine 3+ (Negative); Urine Appearance Clear (CLEAR); Urine Color Yellow (Yellow); Urobilinogen Urine Norm (Negative); WBC Urine 0-4 /hpf (0-5); pH Urine 5 (5-7)
[2023-01-21 16:13] LABS: Add Urine Culture? No; Bacteria Urine TRACE /hpf; Hyaline Casts Urine 0-4 /lpf
[2023-01-21 16:32] LABS: Basophils % 0.5 %; Eosinophils # 0.1 10^3/uL (0.0-0.8); Eosinophils % 1.1 %; Hematocrit 32.8 % (42.0-52.0); Hemoglobin 10.6 g/dL (11.7-16.6); Lymphocytes # 0.6 10^3/uL (0.8-4.8); Lymphocytes % 7.6 %; Mean Corpuscular HGB Conc 32.3 g/dL (30.0-36.0); Mean Corpuscular Volume 89.9 fl (80-94); Mean Platelet Volume 10.3 fL (7.4-10.4); Monocytes # 0.9 10^3/uL (0.2-0.9); Monocytes % 12.5 %; Neutrophils # 5.87 10^3/uL (1.8-7.7); Nucleated Red Blood Cells % 0 %; Platelet Count 223 10^3/cmm (130-400); Red Blood Count 3.65 10^6/uL (4.1-5.3); Red Cell Distribution Width 14.4 % (12.1-15.1); White Blood Count 7.5 10^3/uL (4.0-10.0)
--- NOTE | 2023-01-21 16:36 | USR_ITS ---
PROCEDURE INFORMATION: Exam: US Retroperitoneal; Complete; Kidneys and Bladder Exam date and time: 01/21/2023 5:44 PM Age: 22 years old Clinical indication: Abdominal pain; Prior surgery; Surgery date: 6+ months; Surgery type: Transplant kd; Additional info: Abd pain, pain in transplanted kidney TECHNIQUE: Imaging protocol: Real-time ultrasound of the retroperitoneum with image documentation. Complete exam focused on the kidneys and bladder. COMPARISON: No relevant prior studies available. FINDINGS: Right kidney: Right-sided renal transplant seen with color blood flow without hydronephrosis or perinephric fluid.
[2023-01-21 17:00] LABS: Lactate (Lactic Acid level) 0.9 mmol/L (0.5-2.2)
[2023-01-21 17:01] LABS: Alanine Aminotransferase 15 U/L (0-41); Albumin Level 4.9 g/dL (3.5-5.2); Alkaline Phosphatase 102 U/L (40-130); Anion Gap 16.9 (5-19); Aspartate Amino Transferase 11 U/L (0-40); Blood Urea Nitrogen 31 mg/dL (6-20); Calcium 9.3 mg/dL (8.5-10.5); Carbon Dioxide 22 mmol/L (22-29); Chloride 105 mmol/L (98-107); Glomerular Filtration Rate 27.3 mL/min (90-130); Glucose 76 mg/dL (65-115); Lipase 21 U/L (13-60); Osmolality Calculated 295 mOsm/kg (285-295); Potassium 3.9 mmol/L (3.5-5.1); Sodium 140 mmol/L (136-145); Total Bilirubin 0.4 mg/dL (0.15-1.2); Total Protein 7.9 g/dL (6.6-8.7)
[2023-01-21 19:46] LABS: Urine Creatinine 132 mg/dL (39-259); Urine Random Sodium 61 mmol/L
[2023-01-21] MEDS: HYDROmorphone 1 mg/mL INJ 1 mL IVP (20:43)
== END 2023-01-21 21:21 | disposition left against medical advice (07) ==
PROVIDERS: Emergency Medicine; Emergency Provider Emergency Medicine; PCP Family Medicine
DX: R10.9 Unspecified abdominal pain (principal); Z53.21 Procedure and treatment not carried out due to patient leaving prior to being seen by health care provider; F17.290 Nicotine dependence, other tobacco product, uncomplicated; F17.220 Nicotine dependence, chewing tobacco, uncomplicated; Z94.0 Kidney transplant status
CPT/HCPCS: 76770; 76776; 80053; 80197; 81001; 82570; 83605; 83690; 84300; 85025; 87040; 96361; 96374; 96375; 96376; 99285; J1170; J2270; J2405; J7030

== ENCOUNTER 2023-10-28 20:42 | Inpatient (IN) | payer MEDICARE, MEDICAID, SELFPAY ==
[2023-10-28 20:44] VITALS: PULSE 84; RESP 20; TEMP 36.6; O2SAT 94; BMI 17.7
--- NOTE | 2023-10-28 21:02 | ECG_ITS ---
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 Measurements Intervals [place] Rate: 81 P: 73 KS: 141 QRS: 66 QRSD: 99 T: 71 QT: 420 QTc: 489 Interpretive Statements SINUS RHYTHM No previous ECG available for comparison Electronically Signed On 10-29-2023 21:47:13 [employer] by Nuha Garcia M.D. [id number]
--- NOTE | 2023-10-28 21:04 | W.ED.PSYCHS ---
Documented by User: SAMSON Ferrera 10/28/23 22:30 HPI - Psych General: Chief Complaint: Psychiatric Symptoms Stated Complaint: MHE Time Seen by Provider: 10/28/23 21:02 History of Present Illness: 23-year-old male patient comes in today for increased anxiety, increased depression, and reported hearing voices and seeing things. Tonight patient was upset and called EMS for assistance. Patient reports that it would be better for everyone if he was admitted to the stress unit. Patient denies suicidal homicidal thoughts. Patient is very guarded on what he discusses with me. At this time patient is voluntary. Patient has a history of renal transplant to [facility] with rejection and now is on dialysis on Thursday and Thursday. Last dialysis was today. Patient reports marijuana usage but has not used in the last 24 hours. Patient reports stopping tobacco use 5 months ago. Patient had used alcohol in the past when he was younger but has not recently. Patient also has a reported history of methamphetamine use when he was [age]. MD complaint: feels depressed Onset (ago): day(s) Duration: getting worse History of same: Yes Relieving factors: none Associated symptoms: Reports auditory hallucinations, visual hallucinations, delusions and depression; Deny homicidal ideation or suicidal ideation Treatments prior to arrival: none Review of Systems General: Reports: 10 or more systems reviewed and unremarkable except in HPI and below ENMT: Denies: throat pain Card: Denies: chest pain Resp: Denies: dyspnea Psych: Reports: anxiety, depression, visual hallucinations and auditory hallucinations; Denies: suicidal ideation or homicidal ideation [facility] ED PFSH: Medical History (Updated 10/28/23 @ 21:50 by SAMSON Ferrera) Problems related to lack of adequate sleep Substance abuse Depression Anxiety Social History Smoking and tobacco/nicotine status: current every day tobacco/nicotine user e-cigarettes E-Cigarette Details: vaporizer device and with nicotine E-cig/vape details: 6 mg and smokeless tobacco Smokeless tobacco user: chewing tobacco Smokeless tobacco details: 1 can/3 days. Quit status (tobacco/nicotine): has tried quititng Number of times tried to quit tobacco: 4 Second hand smoke exposure: No Physical Exam Const: COMMON NORMALS: alert HENMT: COMMON NORMALS: normocephalic HEAD & SCALP: normocephalic Neck/C-Spine: COMMON NORMALS: full ROM Chest: COMMONS NORMALS: normal inspection of the chest Resp: COMMON NORMALS: normal respiratory effort and clear to auscultation bilaterally AUSCULTATION: clear to auscultation bilaterally Cardio: COMMON NORMALS: regular rate and regular rhythm RATE: regular rate RHYTHM: regular rhythm GI: COMMON NORMALS: Soft to palpation and non-tender PALPATION: Yes Soft to palpation Back/Pelvis: COMMON NORMALS: thoracic and lumbar spine normal to inspection Extremity: COMMON NORMALS: normal to inspection Neuro: SENSORIUM/ORIENTATION: Yes alert Psych: COMMON NORMALS: cooperative and speech normal APPEARANCE: Yes disheveled ATTITUDE: Yes paranoid and Yes evasive ACTIVITY/MOTOR BEHAVIOR: Yes fidgeting and Yes restless SPEECH: Yes normal speech and Yes Pressured speech present MOOD & AFFECT: Yes depressed mood, Yes anxious and Yes tearful THOUGHT PROCESS: Circumstantial thought process present THOUGHT CONTENT: Yes delusions INSIGHT: Fair insight present (Psych) JUDGEMENT: Fair judgement present (Psych) Skin: COMMON NORMALS: turgor normal GENERAL SKIN EXAM: turgor normal Course Vital Signs: Vital signs: Vital Signs Temperature 98.5 F 10/28/23 23:39 Pulse Rate 81 10/28/23 23:39 Respiratory Rate 17 10/28/23 23:49 Blood Pressure 127/91 10/28/23 23:39 Pulse Oximetry 98 10/28/23 23:39 Oxygen Delivery Me thod Room Air 10/28/23 23:42 [facility] - Psych Medical Decision Making 23-year-old male patient comes in today for worsening depression and endorses having visual and auditory hallucinations over the last 2 to 3 days. Patient reports that he had recently stopped his marijuana usage in the last 2 to 3 days. Patient denies any other drug or alcohol use. Patient does get routine dialysis Wednesdays and Fridays. Patient routinely is on labetalol, hydralazine, and doxazosin. Lungs are clear to auscultation on exam. Skin is warm and dry. Differential diagnoses includes not limited to major depressive disorder with psychosis, substance use disorder, suicidal ideation, acute psychosis. Discussed patient with Dr. Marroquin, psychiatry, he agreed to your the patient to be admitted with consult for medicine. Discussed with Dr. Lange who agreed to consult for medicine. Reviewed with Dr. Stallworth, attending ER physician, he agreed with plan. Lab Data 10/28/23 21:26 10/28/23 21: Laboratory Results WBC 4.23 10^3/uL (3.29-11.43) 10/28/23 21: RBC 4.42 10^6/uL (3.85-5.65) 10/28/23 21: Hgb 14.00 g/dL (11.27-16.99) 10/28/23 21: Hct 42.5 % (37-53) 10/28/23 21: MCV 96.2 fl (82-101) 10/28/23 21: MCH 31.7 pg (27-33) 10/28/23: MCHC 32.9 g/dL (30-55) 10/28/23: RDW 14.1 % (12.1-15.1) 10/28/23: Plt Count 187 10^3/cmm (157-399) 10/28/23 21: MPV 10.8 fL (7.4-10.4) H 10/28/23 21: Neut % (Auto) 57.0 % 10/28/23: Lymph % (Auto) 15.8 % 10/28/23: Hardeman % (Auto) 23.6 % 10/28/23: Eos % (Auto) 1.7 % 10/28/23: Baso % (Auto) 1.7 % 10/28/23: Neut # (Auto) 2.41 10^3/uL (1.8-7.7) 10/28/23: Lymph # (Auto) 0.7 10^3/uL (0.8-4.8) L 10/28/23: Hardeman # (Auto) 1.0 10^3/uL (0.2-0.9) H 10/28/23 21: Eos # (Auto) 0.1 10^3/uL (0.0-0.8) 10/28/23 21: Baso # (Auto) 0.1 10^3/uL (0.0-0.1) 10/28/23: Nucleated RBC % (auto) 0 % 10/28/23 21: Nucleated RBCs # 0.0 /100WBC 10/28/23 21: Sodium 139 mmol/L (136-145) 10/28/23 21: Potassium 4.1 mmol/L (3.5-5.1) 10/28/23 21: Chloride 94 mmol/L (98-107) L 10/28/23 21: Carbon Dioxide 26 mmol/L (22-29) 10/28/23: Anion Gap 23.1 (5-19) H 10/28/23 21:26 BUN 12 mg/dL (6-20) 10/28/23 21: Creatinine 4.1 mg/dL (0.7-1.2) H 10/28/23 21: GFR Calculation 18.2 mL/min (90-130) L 10/28/23 21: Glucose 69 mg/dL (65-115) 10/28/23: Calculated Osmolality 286 mOsm/kg (285-295) 10/28/23: Calcium 10.7 mg/dL (8.5-10.5) H 10/28/23: Total Bilirubin 0.5 mg/dL (0.15-1.2) 10/28/23 21: AST 20 U/L (0-40) 10/28/23: ALT 13 U/L (0-41) 10/28/23: Alkaline Phosphatase 89 U/L (40-130) 10/28/23 21: Total Protein 7.6 g/dL (6.6-8.7) 10/28/23: Albumin 5.2 g/dL (3.5-5.2) 10/28/23: Globulin 2.4 g/dL (1.3-4.6) 10/28/23: TSH 1.38 uIU/mL (0.27-4.20) 10/28/23 21: Salicylates < 0.3 mg/dL (3-10) L 10/28/23: Acetaminophen < 5.0 ug/mL (10-30) L 10/28/23 21: Ethyl Alcohol < 10 mg/dL (0-10) 10/28/23 21:26 No radiology studies performed this visit Discharge Plan Discharge Patient Disposition: Admitted As Inpatient Admit Provider: Zach Marroquin Clinical Impression: Major depress, sev w/ psych, CKD (chronic kidney disease) stage V requiring chronic dialysis Condition: Stable Coding Level of Care Code ED Drive Tester for [place] Fwd Documented by User: Андрей Stallworth MD 10/29/23 03:30 HPI - Psych General: Chief Complaint: Psychiatric Symptoms Stated Complaint: MHE Time Seen by Provider: 10/28/23 21:02 [facility] ED PFSH: Medical History (Updated 10/28/23 @ 21:50 by SAMSON Ferrera) Problems related to lack of adequate sleep Substance abuse Depression Anxiety Social History Smoking and tobacco/nicotine status: current every day tobacco/nicotine user e-cigarettes E-Cigarette Details: vaporizer device and with nicotine E-cig/vape details: 6 mg and smokeless tobacco Smokeless tobacco user: chewing tobacco Smokeless tobacco details: 1 can/3 days. Quit status (tobacco/nicotine): has tried quititng Number of times tried to quit tobacco: 4 Second hand smoke exposure: No Course Vital Signs: Vital signs: Vital Signs Temperature 98.5 F 10/28/23 23:39 Pulse Rate 81 10/28/23 23:39 Respiratory Rate 17 10/28/23 23:49 Blood Pressure 127/91 10/28/23 23:39 Pulse Oximetry 98 10/28/23 23:39 Oxygen Delivery Me thod Room Air 10/28/23 23:42 MDM - Psych Medical Decision Making 23-year-old male patient comes in today for worsening depression and endorses having visual and auditory hallucinations over the last 2 to 3 days. Patient reports that he had recently stopped his marijuana usage in the last 2 to 3 days. Patient denies any other drug or alcohol use. Patient does get routine dialysis Wednesdays and Fridays. Patient routinely is on labetalol, hydralazine, and doxazosin. Lungs are clear to auscultation on exam. Skin is warm and dry. Differential diagnoses includes not limited to major depressive disorder with psychosis, substance use disorder, suicidal ideation, acute psychosis. Discussed patient with Dr. Marroquin, psychiatry, he agreed to your the patient to be admitted with consult for medicine. Discussed with Dr. Lange who agreed to consult for medicine. Reviewed with Dr. Stallworth, attending ER physician, he agreed with plan. I discussed the patient's history of present illness, physical exam findings, pertinent labs, pertinent radiographic exams and plan of care with the midlevel provider. I did personally have a [id number] evaluation and discussion with the patient regarding the plan of care and the need for further admission/transfer. Medical Records I reviewed the patient's medical records. Lab Data I reviewed the patient's lab results. 10/28/23 21:26 10/28/23: Laboratory Results WBC 4.23 10^3/uL (3.29-11.43) 10/28/23: RBC 4.42 10^6/uL (3.85-5.65) 10/28/23: Hgb 14.00 g/dL (11.27-16.99) 10/28/23: Hct 42.5 % (37-53) 10/28/23: MCV 96.2 fl (82-101) 10/28/23: MCH 31.7 pg (27-33) 10/28/23: MCHC 32.9 g/dL (30-55) 10/28/23: RDW 14.1 % (12.1-15.1) 10/28/23: Plt Count 187 10^3/cmm (157-399) 10/28/23: MPV 10.8 fL (7.4-10.4) H 10/28/23: Neut % (Auto) 57.0 % 10/28/23: Lymph % (Auto) 15.8 % 10/28/23: Hardeman % (Auto) 23.6 % 10/28/23: Eos % (Auto) 1.7 % 10/28/23: Baso % (Auto) 1.7 % 10/28/23 21: Neut # (Auto) 2.41 10^3/uL (1.8-7.7) 10/28/23: Lymph # (Auto) 0.7 10^3/uL (0.8-4.8) L 10/28/23 21: [place] # (Auto) 1.0 10^3/uL (0.2-0.9) H 10/28/23: Eos # (Auto) 0.1 10^3/uL (0.0-0.8) 10/28/23: Baso # (Auto) 0.1 10^3/uL (0.0-0.1) 10/28/23: Nucleated RBC % (auto) 0 % 10/28/23: Nucleated RBCs # 0.0 /100WBC 10/28/23 21: Sodium 139 mmol/L (136-145) 10/28/23 21: Potassium 4.1 mmol/L (3.5-5.1) 10/28/23 21: Chloride 94 mmol/L (98-107) L 10/28/23: Carbon Dioxide 26 mmol/L (22-29) 10/28/23: Anion Gap 23.1 (5-19) H 10/28/23 21: BUN 12 mg/dL (6-20) 10/28/23: Creatinine 4.1 mg/dL (0.7-1.2) H 10/28/23: GFR Calculation 18.2 mL/min (90-130) L 10/28/23 21: Glucose 69 mg/dL (65-115) 10/28/23 21: Calculated Osmolality 286 mOsm/kg (285-295) 10/28/23: Calcium 10.7 mg/dL (8.5-10.5) H 10/28/23: Total Bilirubin 0.5 mg/dL (0.15-1.2) 10/28/23: AST 20 U/L (0-40) 10/28/23: ALT 13 U/L (0-41) 10/28/23:26 Alkaline Phosphatase 89 U/L (40-130) 10/28/23 21:26 Total Protein 7.6 g/dL (6.6-8.7) 10/28/23 21:26 Albumin 5.2 g/dL (3.5-5.2) 10/28/23 21:26 Globulin 2.4 g/dL (1.3-4.6) 10/28/23 21:26 TSH 1.38 uIU/mL (0.27-4.20) 10/28/23 21:26 Salicylates < 0.3 mg/dL (3-10) L 10/28/23 21:26 Acetaminophen < 5.0 ug/mL (10-30) L 10/28/23 21:26 Ethyl Alcohol < 10 mg/dL (0-10) 10/28/23 21:26 Discharge Plan Discharge Patient Disposition: Admitted As Inpatient Admit Provider: Zach Marroquin Clinical Impression: Major depress, sev w/ psych, CKD (chronic kidney disease) stage V requiring chronic dialysis Condition: Stable Coding Level of Care Code ED Drive Tester for Loida Menon
[2023-10-28 21:29] LABS: Basophils # 0.1 10^3/uL (0.0-0.1); Basophils % 1.7 %; Eosinophils # 0.1 10^3/uL (0.0-0.8); Eosinophils % 1.7 %; Hematocrit 42.5 % (37-53); Lymphocytes # 0.7 10^3/uL (0.8-4.8); Lymphocytes % 15.8 %; Mean Corpuscular HGB Conc 32.9 g/dL (30-55); Mean Corpuscular Hemoglobin 31.7 pg (27-33); Mean Corpuscular Volume 96.2 fl (82-101); Mean Platelet Volume 10.8 fL (7.4-10.4); Monocytes % 23.6 %; Neutrophils # 2.41 10^3/uL (1.8-7.7); Nucleated Red Blood Cells % 0 %; Platelet Count 187 10^3/cmm (157-399); Red Blood Count 4.42 10^6/uL (3.85-5.65); Red Cell Distribution Width 14.1 % (12.1-15.1); White Blood Count 4.23 10^3/uL (3.29-11.43)
[2023-10-28 21:58] LABS: Alanine Aminotransferase 13 U/L (0-41); Albumin Level 5.2 g/dL (3.5-5.2); Alkaline Phosphatase 89 U/L (40-130); Aspartate Amino Transferase 20 U/L (0-40); Blood Urea Nitrogen 12 mg/dL (6-20); Calcium 10.7 mg/dL (8.5-10.5); Carbon Dioxide 26 mmol/L (22-29); Chloride 94 mmol/L (98-107); Globulin 2.4 g/dL (1.3-4.6); Glomerular Filtration Rate 18.2 mL/min (90-130); Glucose 69 mg/dL (65-115); Osmolality Calculated 286 mOsm/kg (285-295); Sodium 139 mmol/L (136-145); Thyroid Stimulating Hormone 1.38 uIU/mL (0.27-4.20); Total Bilirubin 0.5 mg/dL (0.15-1.2); Total Protein 7.6 g/dL (6.6-8.7)
[2023-10-28 22:01] LABS: Acetaminophen < 5.0 ug/mL (10-30); Alcohol Level < 10 mg/dL (0-10); Anion Gap 23.1 (5-19); Potassium 4.1 mmol/L (3.5-5.1); Salicylate < 0.3 mg/dL (3-10)
[2023-10-28 22:16] VITALS: BP 128/60
--- NOTE | 2023-10-28 22:19 | PC.NURSE ---
pt meds pt mother called about pt meds. this nurse asked pt about mom/ meds and he stated he needed her to bring them here since they are specialized meds.
[2023-10-28 23:39] VITALS: BP 127/91; PULSE 81; RESP 16; TEMP 36.9; O2SAT 98
[2023-10-28 23:49] VITALS: RESP 17
[2023-10-29 06:00] VITALS: RESP 16
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
--- NOTE | 2023-10-29 06:56 | P.CONIM_ITS ---
Providers/Reason For Consult 2 Consulting Physician/Specialty*: Melissa Lange MD/Hospitalist Reason for Consult*: Medical comorbidties, dialysis Requesting Physician: CHARITY Mccray Attending Physician: Zach Marroquin MD Primary Care Provider: Emanuel Pickett MD History of Present Illness History of Present Illness Vance Sainz is a 23 year old male with a history of renal transplant at [facility] in 2010 which was complicated by graft failure for which she is now back on dialysis over the past 1 year. It appears patient continues to take tacrolimus 2 mg every day, he does not take mycophenolate anymore though it does appear on his DEC. His HD schedule is MWF, he had last session on thursday. He is admitted today to [facility] due to depression and suicidal thoughts. Medicine service consulted to assist with BP medications and HD. Denies any chest pain, dyspnea, palpiattions, syncope. He is concerned about losing weight over the past year and poor appetite Review of Systems 2 General: Reports: 10 or more systems reviewed and unremarkable except in HPI and below Const: Denies: fever(s), chills or body aches Eyes: Denies: change in vision, blurry vision or photophobia ENMT: Reports: hoarseness; Denies: throat pain, enlarged tonsils, odynophagia or nasal congestion Card: Denies: chest pain, palpitations, irregular heart rhythm, edema, swelling of feet/ankles, lightheadedness, pre-syncope, dyspnea on exertion or orthopnea Resp: Denies: dyspnea, productive cough, non-productive cough, wheezing, stridor, pain on inspiration, change in phlegm color, hemoptysis or chest congestion GI: Denies: abdominal pain, nausea, vomiting, hematemesis, coffee ground emesis, dysphagia, heartburn, diarrhea, constipation, GI cramping, change in stool character, hematochezia or melena : Denies: flank pain, dysuria, urinary frequency, urinary urgency, urinary hesitancy or hematuria Musc: Denies: neck pain, back pain, extremity pain, joint swelling, joint warmth or deformity Neuro: Denies: headache(s), numbness in extremities, weakness in extremities, sensory changes, difficulty walking, frequent falls, dizziness, vertigo, behavioral changes, Slurred speech present or seizure-like activity Psych: Denies: anxiety, depression, suicidal ideation or homicidal ideation Endo: Denies: polyuria, polydipsia, tired all the time, cold intolerance or hot flashes Zachary/Lymph: Denies: easy bruising or easy bleeding Medications/Allergies Home Medications Medication Instructions Recorded Confirmed Last Taken Type labetalol 200 mg tablet 200 mg PO BID 05/10/21 01/21/23 01/20/23 History mycophenolate mofetil 250 mg 500 mg PO BID 05/10/21 10/28/23 01/20/23 History capsule (CellCept) tacrolimus 1 mg capsule, 1 mg PO Q12H 05/10/21 10/28/23 01/20/23 History immediate-release (Prograf) tacrolimus 0.5 mg capsule, 0.5 mg PO Q12H 07/09/21 01/21/23 01/20/23 History immediate-release allopurinol 100 mg tablet 100 mg PO DAILY 02/03/22 01/21/23 08/07/22 History amlodipine 5 mg tablet (Norvasc) 5 mg PO BEDTIME 02/03/22 10/28/23 01/20/23 History cholecalciferol (vitamin D3) 25 2,000 unit PO DAILY 02/03/22 01/21/23 01/20/23 History mcg (1,000 unit) capsule (Vitamin D3) losartan 50 mg tablet (Cozaar) 50 mg PO DAILY 02/03/22 10/28/23 01/20/23 History metoclopramide HCl 10 mg tablet 10 mg PO Q6H PRN headache #10 tabs 08/07/22 01/21/23 Unknown Rx (Reglan) buspirone 10 mg tablet 10 mg PO BID 01/21/23 01/21/23 Unknown History methylphenidate HCl 5 mg tablet 5 mg PO BID 01/21/23 01/21/23 01/20/23 History mirtazapine 15 mg tablet 15 mg PO DAILY 01/21/23 01/21/23 Unknown History ondansetron 4 mg disintegrating 4 mg PO Q8H PRN Nausea 01/21/23 01/21/23 Unknown History tablet pantoprazole 40 mg tablet,delayed 40 mg PO DAILY 01/21/23 01/21/23 Unknown History release prednisone 20 mg tablet 20 mg PO DAILY 01/21/23 10/28/2301/20/23 History sumatriptan succinate 50 mg tablet 50 mg PO DAILY migraine 01/21/23 01/21/23 Unknown History trazodone 100 mg tablet 100 mg PO QPM 01/21/23 10/28/23 01/20/23 History citalopram 10 mg tablet (Celexa) 10 mg PO DAILY 10/28/23 10/28/23 Unknown History doxazosin 4 mg tablet (Cardura) 4 mg PO DAILY 10/28/23 10/28/23 Unknown History hydralazine 100 mg tablet 100 mg PO BID 10/28/23 10/28/23 Unknown History vit B,C-folic ac 800 mcg-zinc 12.5 See Rx Instructions .Route .COMPLEX 10/28/23 10/28/23 Unknown History mg-selen-D3 2,000 unit-vit E tablet (RenaPlex-D) Allergies Allergy/AdvReac Type Severity Reaction Status Date / Time NSAIDS (Non-Steroidal Allergy Severe unable to Verified 01/21/23 15:17 Anti-Inflamma take due to kidney disease sertraline [From Zoloft] Allergy Unknown Verified 10/28/23 20:53 PFSH Acute 2 PFSH: Medical History Problems related to lack of adequate sleep Substance abuse Depression Anxiety Social History Smoking and tobacco/nicotine status: current every day tobacco/nicotine user e- cigarettes E-Cigarette Details: vaporizer device and with nicotine E-cig/vape details: 6 mg and smokeless tobacco Smokeless tobacco user: chewing tobacco Smokeless tobacco details: 1 can/3 days. Quit status (tobacco/nicotine): has tried quititng Number of times tried to quit tobacco: 4 Second hand smoke exposure: No Vitals/I&O/Wt Last Vital Signs Temp 98.5 F 10/28/23 23:39 Pulse 81 10/28/23 23:39 Resp 16 10/29/23 06:00 BP 127/91 10/28/23 23:39 Pulse Ox 98 10/28/23 23:39 O2 Del Method Room Air 10/28/23 23:42 Weight last 48 hrs Weight 43.998 kg Physical Exam 2 Narrative: General: No acute distress, AO x3 HEENT: PERRLA, pupils bilaterally equal and reactive, pallors not present Chest: Normal vesicular breath sounds, no added sounds, equal good air entry bilaterally CVS: S1-S2 regular, no murmurs, no tachycardia, no gallops, no rubs Abdomen: Soft, nontender, no organomegaly, bowel sounds present Neuro: No focal deficits, no facial deformity, AO x3, power 5/5 in all limbs Data 10/28/23 21:26 10/28/23 21:26 A&P Assessment and plan (1) CKD (chronic kidney disease): History of renal transplant and graft rejection. Follows with wheelchair van operator first responder out of [facility]. Currently on tacrolimus 2 mg every day. Patient states that he no longer takes mycophenolate. All his medications will need to be confirmed this morning by pharmacy. Will check tacrolimus level Nephrology service has been consulted to continue his maintenance hemodialysis schedule of Thursday. No current urgent indication for dialysis at this time. (2) Renal transplant failure and rejection: History of transplant at [facility] in 2010 It appears transplant failure and rejection may have been in the setting of medication noncompliance. (3) Hypertension: Continue his home regimen of doxazosin, labetalol, hydralazine and amlodipine 10 mg daily. Has medications that are listed on DEC need to be verified, I am able to see the above medications from the bottles that his mother has brought in today. Plan Depression and suicidal ideation: Admitted to n.p.o. for the same. Management per psychiatry Consult Attestations 2 Medical Necessity Statement: Per admitting Coding Level of Care Code Acute Code for Chg Fwd Moderate MDM includes number and complexity of problems actively addressed during encounter, amount and/or complexity of data reviewed/ordered and described risk of complication, morbidity or mortality of management as documented Diagnoses CKD (chronic kidney disease) N18.9 Renal transplant failure and rejection T86.12; T86.11 Hypertension I10
--- NOTE | 2023-10-29 07:55 | PC.NURSE ---
Patient reports that he is frustrated with poeople not being honest. Patient states that it is in general, not a specific person. Patient reports stressed and anxious. Patient states that he is not angry or depressed. Patient states that he is worried about the safety of everybody. Patient went on to say that everything in the dark will come to light.
[2023-10-29 08:27] LABS: Basophils # 0.1 10^3/uL (0.0-0.1); Basophils % 1.4 %; Eosinophils # 0.1 10^3/uL (0.0-0.8); Eosinophils % 2.9 %; Hematocrit 41.9 % (37-53); Lymphocytes # 0.7 10^3/uL (0.8-4.8); Lymphocytes % 15.2 %; Mean Corpuscular HGB Conc 32.2 g/dL (30-55); Mean Corpuscular Hemoglobin 31.1 pg (27-33); Mean Corpuscular Volume 96.5 fl (82-101); Mean Platelet Volume 10.7 fL (7.4-10.4); Monocytes % 19.9 %; Neutrophils # 2.95 10^3/uL (1.8-7.7); Neutrophils % 60.4 %; Nucleated Red Blood Cells % 0 %; Platelet Count 212 10^3/cmm (157-399); Red Blood Count 4.34 10^6/uL (3.85-5.65); White Blood Count 4.88 10^3/uL (3.29-11.43)
[2023-10-29 08:54] LABS: Anion Gap 25.2 (5-19); Blood Urea Nitrogen 21 mg/dL (6-20); Calcium 10.5 mg/dL (8.5-10.5); Carbon Dioxide 28 mmol/L (22-29); Chloride 93 mmol/L (98-107); Glomerular Filtration Rate 11.7 mL/min (90-130); Glucose 62 mg/dL (65-115); Osmolality Calculated 295 mOsm/kg (285-295); Potassium 4.2 mmol/L (3.5-5.1); Sodium 142 mmol/L (136-145)
[2023-10-29] MEDS: amlodipine 10 mg Tablet PO (09:01)
[2023-10-29] MEDS: hyDRALAzine 50 mg Tablet 100 MG PO ×3 (09:01→20:55)
[2023-10-29] MEDS: tacrolimus 0.5 mg Capsule 2 MG PO (11:17)
[2023-10-29] MEDS: sevelamer 800 mg Tablet PO ×3 (11:17→20:55)
[2023-10-29] MEDS: doxazosin 4 mg Tablet PO (11:17)
[2023-10-29] MEDS: labetalol 200 mg Tablet PO ×2 (11:17→17:46)
[2023-10-29 14:00] VITALS: BP 119/76; PULSE 91; RESP 16; TEMP 36.6; O2SAT 99
[2023-10-29 20:22] VITALS: BP 108/69; PULSE 101; RESP 17; TEMP 36.9; O2SAT 96
--- NOTE | 2023-10-29 20:26 | P.CONIM_ITS ---
Providers/Reason For Consult 2 Consulting Physician/Specialty*: kommana/Nephrology Reason for Consult*: ESRD Attending Physician: Zach Marroquin MD Primary Care Provider: Emanuel Pickett MD History of Present Illness History of Present Illness Vance Sainz is a 23 year old male with past medical history of failed renal transplant and now on dialysis for the last 1 year. Patient has right arm AV fistula. He is admitted today due to depression and suicidal ideations. Nephrology service consulted for continued dialysis. He is HD schedule is usually Thursday and last dialysis was on Thursday. He continues to take immunosuppressive meds including tacrolimus. He currently denies any complaints. Review of Systems 2 Narrative: Other ROS negative Medications/Allergies Home Medications Medication Instructions Recorded Confirmed Last Taken Type labetalol 200 mg tablet 200 mg PO BID 05/10/21 01/21/23 01/20/23 History mycophenolate mofetil 250 mg 500 mg PO BID 05/10/21 10/28/23 01/20/23 History capsule (CellCept) tacrolimus 1 mg capsule, 1 mg PO Q12H 05/10/21 10/28/23 01/20/23 History immediate-release (Prograf) tacrolimus 0.5 mg capsule, 0.5 mg PO Q12H 07/09/21 01/21/23 01/20/23 History immediate-release allopurinol 100 mg tablet 100 mg PO DAILY 02/03/22 01/21/23 08/07/22 History amlodipine 5 mg tablet (Norvasc) 5 mg PO BEDTIME 02/03/22 10/28/23 01/20/23 History cholecalciferol (vitamin D3) 25 2,000 unit PO DAILY 02/03/22 01/21/23 01/20/23 History mcg (1,000 unit) capsule (Vitamin D3) losartan 50 mg tablet (Cozaar) 50 mg PO DAILY 02/03/22 10/28/23 01/20/23 History metoclopramide HCl 10 mg tablet 10 mg PO Q6H PRN headache #10 tabs 08/07/22 01/21/23 Unknown Rx (Reglan) buspirone 10 mg tablet 10 mg PO BID 01/21/23 01/21/23 Unknown History methylphenidate HCl 5 mg tablet 5 mg PO BID 01/21/23 01/21/23 01/20/23 History mirtazapine 15 mg tablet 15 mg PO DAILY 01/21/23 01/21/23 Unknown History ondansetron 4 mg disintegrating 4 mg PO Q8H PRN Nausea 01/21/23 01/21/23 Unknown History tablet pantoprazole 40 mg tablet,delayed 40 mg PO DAILY 01/21/23 01/21/23 Unknown History release prednisone 20 mg tablet 20 mg PO DAILY 01/21/23 10/28/23 01/20/23 History sumatriptan succinate 50 mg tablet 50 mg PO DAILY migraine 01/21/23 01/21/23 Unknown History trazodone 100 mg tablet 100 mg PO QPM 01/21/23 10/28/23 01/20/23 History citalopram 10 mg tablet (Celexa) 10 mg PO DAILY 10/28/23 10/28/23 Unknown History doxazosin 4 mg tablet (Cardura) 4 mg PO DAILY 10/28/23 10/28/23 Unknown History hydralazine 100 mg tablet 100 mg PO BID 10/28/23 10/28/23 Unknown History vit B,C-folic ac 800 mcg-zinc 12.5 See Rx Instructions .Route .COMPLEX 10/28/23 10/28/23 Unknown History mg-selen-D3 2,000 unit-vit E tablet (RenaPlex-D) Allergies Allergy/AdvReac Type Severity Reaction Status Date / Time NSAIDS (Non-Steroidal Allergy Severe unable to Verified 01/21/23 15:17 Anti-Inflamma take due to kidney disease sertraline [From Zoloft] Allergy Unknown Verified 10/28/23 20:53 Current Medications Generic Name Dose Route Start Last Admin Trade Name Freq PRN Reason Stop Dose Admin Amlodipine Besylate 10 mg 10/29/23 09:00 10/29/23 09:01 Amlodipine 10 Mg Tablet PO 10 mg DAILY OMAR Administration Doxazosin Mesylate 4 mg 10/29/23 09:00 10/29/23 11:17 Doxazosin 4 Mg Tablet PO 4 mg DAILY OMAR Administration Hydralazine HCl 100 mg 10/29/23 09:00 10/29/23 15:13 Hydralazine 50 Mg Tablet PO 100 mg TID OMAR Administration Sevelamer Carbonate 800 mg 10/29/23 09:00 10/29/23 15:13 Sevelamer 800 Mg Tablet PO 800 mg TID OMAR Administration Tacrolimus 2 mg 10/29/23 09:00 10/29/23 11:17 Tacrolimus 0.5 Mg Capsule PO 2 mg DAILY OMAR Administration PFSH Acute 2 PFSH: Medical History Problems related to lack of adequate sleep Substance abuse Depression Anxiety Social History Smoking and tobacco/nicotine status: current every day tobacco/nicotine user e- cigarettes E-Cigarette Details: vaporizer device and with nicotine E-cig/vape details: 6 mg and smokeless tobacco Smokeless tobacco user: chewing tobacco Smokeless tobacco details: 1 can/3 days. Quit status (tobacco/nicotine): has tried quititng Number of times tried to quit tobacco: 4 Second hand smoke exposure: No Vitals/I&O/Wt Last Vital Signs Temp 98.4 F 10/29/23 20:22 Pulse 101 H 10/29/23 20:22 Resp 17 10/29/23 20:22 BP 108/69 10/29/23 20:22 Pulse Ox 96 10/29/23 20:22 O2 Del Method Room Air 10/29/23 20:22 Weight last 48 hrs Weight 43.998 kg Physical Exam 2 Narrative: awake, alert no edema Data 10/29/23 08:06 10/29/23 08:06 A&P Assessment and plan (1) CKD (chronic kidney disease) stage V requiring chronic dialysis: Plan 1. End-stage renal disease: On MWF schedule as outpatient last hemodialysis Thursday, plan for HD in a.m. 2. History of failed renal transplant, continue tacrolimus at home dose-to prevent acute rejection 3. Hypertension: Restart home meds Patient evaluated using audiovisual cart. Time spent 40 minutes. Consult Attestations 2 Medical Necessity Statement: per medicine team Coding Level of Care Code Acute Code for Chg Fwd Diagnoses CKD (chronic kidney disease) stage V requiring chronic dialysis N18.6; Z99.2
[2023-10-29 21:30] LABS: Hepatitis B Surface AB 46.6 (11.5-1000); Hepatitis B Surface Antigen Non-Reactive (Nonreactive)
[2023-10-29 23:05] LABS: Amphetamines Screen Urine Negative (Negative); Barbiturates Screen Urine Negative (Negative); Benzodiazepines Screen Urine Negative (Negative); Cocaine Screen Urine Negative (Negative); Glucose Urine UA Norm (Normal); Ketones Urine 1+ (Negative); Opiate Screen Urine Negative (Negative); PCP Screen Urine Negative (Negative); Protein Urine 3+ (Negative); THC Screen Urine Positive (Negative); Urine Appearance Turbid (CLEAR); Urine Color Yellow (Yellow); pH Urine 5 (5-7)
[2023-10-29 23:06] LABS: Add Urine Microscopic? YES; Bilirubin Urine 1+ (Negative); Blood Urine 2+ (Negative); Leukocyte Esterase Urine 1+ (Negative); Nitrate Urine Negative (Negative); Urobilinogen Urine Norm (Negative)
[2023-10-29 23:07] LABS: Bacteria Urine 2+ /hpf; Coarse Granular Casts Urine 0-4 /lpf; Mucus Urine 2+ /hpf; RBC Urine 15-25 /hpf (0-2); Squamous Epithelial Cell Urine 0-4 /hpf (0-5); WBC Urine 40-55 /hpf (0-5)
[2023-10-29 23:10] LABS: Hyaline Casts Urine 0-4 /lpf
[2023-10-29 23:11] LABS: Add Urine Culture? Yes
[2023-10-30 06:00] VITALS: RESP 16
--- NOTE | 2023-10-30 07:40 | P.NPUPN_ITS ---
Subjective NPU 2 Subjective: Patient presented today reporting that he was really struggling with excepting some of his behaviors from the past. He reported 1 behavior particular involved a cat dying but it was quite confusing as he described not killing the cat or doing anything to intentionally cause it harm but endorsing I have to be held responsible but although while denying any intentional harm to the cat. He reported there were many things like this and we discussed concerns of whether this was consistent with some of the reports of his phone and screen being compromised however represented something real in his life. We agreed we would check back in with him tomorrow to see where he is with these thoughts. He was set to have his dialysis today and has not received the Invega. We discussed the risks, benefits and alternatives he understood and agreed to proceed as is documented in this note. Mental Status Exam 2 MSE Comments: This is a short, diminutive, white male, in hospital scrubs on with adequate grooming and eye contact. No abnormal movements except for psychomotor retardation. Cooperative with exam in mild distress. Some tattoos on exposed skin and noted torturous vein versus port in his right forearm. Speech was decreased rate and volume with some significant pauses possibly consistent with thought blocking. Mood described as depressed; affect congruent, tearful and labile. Thought process, linear and at times organized. Thought content: patient denied any suicidal or homicidal ideation, there were no delusions reported or but some guardedness and likely paranoia noted, patient denied any auditory or visual hallucinations but some of the things that he described could be consistent with auditory and visual hallucinations. Attention and concentration appear limited, and memory appear unreliable but none were formally tested. He is alert and oriented times person and place. Insight and judgment are limited versus impaired, impulse control limited versus impaired. Vitals/I&O/Wt Last Vital Signs Temp 98.4 F 10/29/23 20:22 Pulse 101 H 10/29/23 20:22 Resp 16 10/30/23 06:00 BP 108/69 10/29/23 20:22 Pulse Ox 96 10/29/23 20:22 O2 Del Method Room Air 10/29/23 20:22 Weight last 48 hrs Weight 43.998 kg Data NPU 10/29/23 08:06 10/29/23 08:06 A&P Assessment and plan (1) Major depress, sev w/ psych: (2) Cannabis use disorder: (3) History of methamphetamine use: (4) PTSD (post-traumatic stress disorder): (5) Hypertension: (6) CKD (chronic kidney disease) stage V requiring chronic dialysis: (7) CKD (chronic kidney disease): (8) Renal transplant failure and rejection: Plan This is a 23-year-old, white male, with a long history of trauma, post-traumatic stress disorder, addiction, and loss, who presents struggling with his depression and likely psychosis and paranoia now receiving dialysis because he had organ rejection about 3 months ago with unclear sense of his last methamphetamine use, open to changes in his medication. RECOMMENDATION AND PLAN: 1. Continue current medication. Started Invega 3 mg p.o. daily. 2. Encourage individual, group, and milieu therapy. 3. Continue q-15 minute checks for safety. 4. Encourage sober living treatment after discharge at the highest level care to which he is willing to commit. Involuntary Hold Information 2 96 Hour Hold: 96 Hour Involuntary Admission: No Attestations NPU 2 Medical Necessity Statement*: Inpatient hospitalization is medically necessary and the clinically appropriate intervention, at this time. We will monitor medications and make changes as indicated. Likely length of stay is 3-5 days. Coding Level of Care Code Acute Code for [facility] Fwd Diagnoses Major depress, sev w/ psych F32.3 Cannabis use disorder F12.90 History of methamphetamine use F15.91 PTSD (post-traumatic stress disorder) F43.10 Hypertension I10 CKD (chronic kidney disease) stage V requiring chronic dialysis N18.6; Z99.2 CKD (chronic kidney disease) N18.9 Renal transplant failure and rejection T86.12; T86.11
--- NOTE | 2023-10-30 07:48 | PC.NURSE ---
patient escorted off unit with this nurse and security to room 274 for dialysis treatment. Patient left in the care of EUGENIA Rudolph. Approximation of treatment is 4 to 4.5 hours.
[2023-10-30 08:31] VITALS: BP 123/87; PULSE 73; RESP 16; TEMP 36.5
--- NOTE | 2023-10-30 08:33 | PC.HD ---
Consent for dialysis signed by patient. Venous acces x3 attempts. [id number] unit loading dose administered via venous needle at 0815 per gear cutting machine set up operator's orders.
[2023-10-30] MEDS: hyDRALAzine 50 mg Tablet 100 MG PO ×2 (11:57→19:52)
[2023-10-30] MEDS: sevelamer 800 mg Tablet PO ×3 (11:57→19:52)
[2023-10-30] MEDS: predniSONE 5 mg Tablet PO (11:57)
[2023-10-30] MEDS: tacrolimus 0.5 mg Capsule 2 MG PO (11:57)
[2023-10-30] MEDS: amlodipine 10 mg Tablet PO (11:57)
[2023-10-30] MEDS: labetalol 200 mg Tablet PO ×2 (11:58→19:52)
[2023-10-30] MEDS: paliperidone ER 3 mg Tablet PO (11:58)
[2023-10-30] MEDS: doxazosin 4 mg Tablet PO (11:58)
--- NOTE | 2023-10-30 13:08 | PC.NURSE ---
patient in room. patient appears anxious. Patient states that he is worried about the safety of everybody. Patient states that he cannot talk about it because of the repurcussions. Patient was able to draw with his finger the letter V as the first initial. Patient pointed at his blue sock; this nurse asked him if the color blue was an issue. Patient said no, that it was the police.
[2023-10-30 14:00] VITALS: BP 96/61; PULSE 89; RESP 13; TEMP 36.9; O2SAT 97
--- NOTE | 2023-10-30 14:48 | P.PN_ITS ---
Subjective 2 Subjective: GETTING hd Medications: Reviewed: Yes Vitals/I&O/Wt Last Vital Signs Temp 98.4 F 10/30/23 14:00 Pulse 89 10/30/23 14:00 Resp 13 10/30/23 14:00 BP 96/61 10/30/23 14:00 Pulse Ox 97 10/30/23 14:00 O2 Del Method Room Air 10/29/23 20:22 Weight last 48 hrs Weight 43.998 kg Physical Exam 2 Narrative: awake, alert no edema Data 10/29/23 08:06 10/29/23 08:06 A&P Assessment and plan (1) CKD (chronic kidney disease) stage V requiring chronic dialysis: Plan 1. End-stage renal disease: On MWF schedule as outpatient last hemodialysis Thursday, hd today 2. History of failed renal transplant, continue tacrolimus at home dose-to prevent acute rejection 3. Hypertension: Restart home meds Patient evaluated using audiovisual cart. Time spent 20 minutes. Attestations 2 Medical Necessity Statement*: per medicine Coding Level of Care Code Acute Code for Chg Fwd Diagnoses CKD (chronic kidney disease) stage V requiring chronic dialysis N18.6; Z99.2
[2023-10-30 14:51] VITALS: BP 124/79; PULSE 77; RESP 16; TEMP 36.8
--- NOTE | 2023-10-30 15:36 | PC.NURSE ---
Klaudia, promotional representative nurse, sent note down to this nurse with information pertaining to patient's dialysis treatment. Patient received heparin 1000 units at 0815; heparin 500 units at 0915; heparin 500 units at 1015. Dialysis was for three hours. NSS boluses 300. Removed 1100, with a net removal of 700. Patient complained of cramps, so Klaudia adjusted HD Rx per casino duty manager. This nurse unsure how to document heparin usage. Called Klaudia and left voice message for her to return call.
[2023-10-30 21:17] VITALS: BP 129/80; PULSE 95; RESP 18; TEMP 36.4; O2SAT 97
[2023-10-31] MEDS: ondansetron 4 MG Tablet PO (01:51)
[2023-10-31 06:00] VITALS: RESP 16
[2023-10-31] MEDS: sevelamer 800 mg Tablet PO ×3 (08:37→20:37)
[2023-10-31] MEDS: tacrolimus 0.5 mg Capsule 2 MG PO (08:37)
[2023-10-31] MEDS: amlodipine 10 mg Tablet PO (08:37)
[2023-10-31] MEDS: paliperidone ER 3 mg Tablet PO ×2 (08:37→15:09)
[2023-10-31] MEDS: labetalol 200 mg Tablet PO ×2 (08:37→20:37)
[2023-10-31] MEDS: hyDRALAzine 50 mg Tablet 100 MG PO ×2 (08:38→20:38)
[2023-10-31] MEDS: predniSONE 5 mg Tablet PO (08:38)
[2023-10-31] MEDS: acetaminophen 325 mg Tablet 650 MG PO ×2 (08:41→16:34)
--- NOTE | 2023-10-31 11:07 | P.PN_ITS ---
Subjective 2 Subjective: no new complaints Medications: Reviewed: Yes Vitals/I&O/Wt Last Vital Signs Temp 97.6 F 10/30/23 21:17 Pulse 95 10/30/23 21:17 Resp 16 10/31/23 06:00 BP 129/80 10/30/23 21:17 Pulse Ox 97 10/30/23 21:17 O2 Del Method Room Air 10/29/23 20:22 Weight last 48 hrs Weight 46.8 kg Physical Exam 2 Narrative: awake, alert no edema Data 10/29/23 08:06 10/29/23 08:06 A&P Assessment and plan (1) CKD (chronic kidney disease) stage V requiring chronic dialysis: Plan 1. End-stage renal disease: On MWF schedule as outpatient , next HD thursday 2. History of failed renal transplant, continue tacrolimus at home dose-to prevent acute rejection 3. Hypertension: Restart home meds Patient evaluated using audiovisual cart. Time spent 20 minutes. Attestations 2 Medical Necessity Statement*: per medicine team Coding Level of Care Code Acute Code for Chg Fwd Diagnoses CKD (chronic kidney disease) stage V requiring chronic dialysis N18.6; Z99.2
[2023-10-31 14:00] VITALS: BP 120/80; PULSE 93; RESP 15; TEMP 36.6; O2SAT 97
--- NOTE | 2023-10-31 19:25 | P.NPUPN_ITS ---
Subjective NPU 2 Subjective: Patient presented today continuing to be quite emotional and tearful but with the subject matter seeming incongruent with what was making him so tearful. 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 We discussed believing that he is having psychosis and the Invega being the treatment of choice. We discussed the risks, benefits and alternatives of increasing the Invega to 6 mg and he understood and agreed to proceed as is documented in this note. Mental Status Exam 2 MSE Comments: This is a short, diminutive, white male, in hospital scrubs on with adequate grooming and eye contact. No abnormal movements except for psychomotor retardation. Cooperative with exam in mild distress. Some tattoos on exposed skin and noted torturous vein versus port in his right forearm. Speech was decreased rate and volume with some significant pauses possibly consistent with thought blocking. Mood described as depressed; affect congruent, tearful and labile. Thought process, linear and at times organized. Thought content: patient denied any suicidal or homicidal ideation, there were no delusions reported or but some guardedness and likely paranoia noted, patient denied any auditory or visual hallucinations but some of the things that he described could be consistent with auditory and visual hallucinations. Attention and concentration appear limited, and memory appear unreliable but none were formally tested. He is alert and oriented times person and place. Insight and judgment are limited versus impaired, impulse control limited versus impaired. Vitals/I&O/Wt Last Vital Signs Temp 97.9 F 10/31/23 23:30 Pulse 84 10/31/23 23:30 Resp 18 10/31/23 23:30 BP 124/80 10/31/23 23:30 Pulse Ox 98 10/31/23 23:30 O2 Del Method Room Air 10/29/23 20:22 Weight last 48 hrs Weight 46.8 kg Data NPU 10/29/23 08:06 10/29/23 08:06 Micro: Microbiology 10/29/23 21:40 Urine Culture - Preliminary Urine,Clean Catch Microbiology 10/29/23 21:40 Urine,Clean Catch Urine Culture - Preliminary A&P Assessment and plan (1) CKD (chronic kidney disease) stage V requiring chronic dialysis: (2) Major depress, sev w/ psych: (3) Cannabis use disorder: (4) History of methamphetamine use: (5) PTSD (post-traumatic stress disorder): (6) Hypertension: (7) CKD (chronic kidney disease): (8) Renal transplant failure and rejection: Plan This is a 23-year-old, white male, with a long history of trauma, post-traumatic stress disorder, addiction, and loss, who presents struggling with his depression and likely psychosis and paranoia now receiving dialysis because he had organ rejection about 3 months ago with unclear sense of his last methamphetamine use, open to changes in his medication. RECOMMENDATION AND PLAN: 1. Continue current medication. Started Invega 3 mg p.o. daily. Increase to 6 mg p.o. daily. 2. Encourage individual, group, and milieu therapy. 3. Continue q-15 minute checks for safety. 4. Encourage sober living treatment after discharge at the highest level care to which he is willing to commit. Involuntary Hold Information 2 96 Hour Hold: 96 Hour Involuntary Admission: No Attestations NPU 2 Medical Necessity Statement*: Inpatient hospitalization is medically necessary and the clinically appropriate intervention, at this time. We will monitor medications and make changes as indicated. Likely length of stay is 3-5 days. Coding Level of Care Code Acute Code for [facility] Fwd Diagnoses CKD (chronic kidney disease) stage V requiring chronic dialysis N18.6; Z99.2 Major depress, sev w/ psych F32.3 Cannabis use disorder F12.90 History of methamphetamine use F15.91 PTSD (post-traumatic stress disorder) F43.10 Hypertension I10 CKD (chronic kidney disease) N18.9 Renal transplant failure and rejection T86.12; T86.11
[2023-10-31] MEDS: trazodone 50 mg Tablet PO ×2 (20:37→21:39)
[2023-10-31] MEDS: allopurinol 300 mg Tablet PO (20:39)
[2023-10-31 20:45] VITALS: BP 142/89; PULSE 81; RESP 18; O2SAT 99
[2023-10-31] MEDS: OLANZapine 5 mg ODT PO (23:26)
[2023-10-31 23:30] VITALS: BP 124/80; PULSE 84; RESP 18; TEMP 36.6; O2SAT 98
[2023-11-01 06:00] VITALS: RESP 16
--- NOTE | 2023-11-01 06:28 | P.NPUPN_ITS ---
Subjective NPU 2 Subjective: Patient presented today reporting that he is feeling a little better this morning. We discussed that it seems that could be the case as he was much less emotional and seemed less stuck on overvalued thoughts. We discussed that Dr. Tracy would be here tomorrow and work with him on continuing this progress. We discussed that he seems to be doing better on the 6 mg of Invega. He denied any side effects to the medications. Mental Status Exam 2 MSE Comments: This is a short, diminutive, white male, in hospital scrubs on with adequate grooming and eye contact. No abnormal movements except for psychomotor retardation. Cooperative with exam in mild distress. Some tattoos on exposed skin and noted torturous vein versus port in his right forearm. Speech was decreased rate and volume with some significant pauses possibly consistent with thought blocking. Mood described as a little better this morning; affect congruent, and less tearful and labile. Thought process, linear and at times organized. Thought content: patient denied any suicidal or homicidal ideation, there were no delusions reported or but some guardedness and likely paranoia noted, patient denied any auditory or visual hallucinations but some of the things that he described could be consistent with auditory and visual hallucinations. Attention and concentration appear limited, and memory appears unreliable but none were formally tested. He is alert and oriented times person and place. Insight and judgment are limited, impulse control impaired. Vitals/I&O/Wt Last Vital Signs Temp 97.9 F 10/31/23 23:30 Pulse 84 10/31/23 23:30 Resp 16 11/01/23 06:00 BP 124/80 10/31/23 23:30 Pulse Ox 98 10/31/23 23:30 O2 Del Method Room Air 10/29/23 20:22 Weight last 48 hrs Weight 46.8 kg Data NPU 10/29/23 08:06 10/29/23 08:06 Micro: Microbiology 10/29/23 21:40 Urine Culture - Preliminary Urine,Clean Catch Microbiology 10/29/23 21:40 Urine,Clean Catch Urine Culture - Preliminary A&P Assessment and plan (1) CKD (chronic kidney disease) stage V requiring chronic dialysis: (2) Major depress, sev w/ psych: (3) Cannabis use disorder: (4) History of methamphetamine use: (5) PTSD (post-traumatic stress disorder): (6) Hypertension: (7) CKD (chronic kidney disease): (8) Renal transplant failure and rejection: Plan This is a 23-year-old, white male, with a long history of trauma, post-traumatic stress disorder, addiction, and loss, who presents struggling with his depression and likely psychosis and paranoia now receiving dialysis because he had organ rejection about 3 months ago with unclear sense of his last methamphetamine use, open to changes in his medication. RECOMMENDATION AND PLAN: 1. Continue current medication. Started Invega 3 mg p.o. daily. Increased to 6 mg p.o. daily. 2. Encourage individual, group, and milieu therapy. 3. Continue q-15 minute checks for safety. 4. Encourage sober living treatment after discharge at the highest level care to which he is willing to commit. Involuntary Hold Information 2 96 Hour Hold: 96 Hour Involuntary Admission: No Attestations NPU 2 Medical Necessity Statement*: Inpatient hospitalization is medically necessary and the clinically appropriate intervention, at this time. We will monitor medications and make changes as indicated. Likely length of stay is 2-4 days. Coding Level of Care Code Acute Code for [facility] Fwd Diagnoses CKD (chronic kidney disease) stage V requiring chronic dialysis N18.6; Z99.2 Major depress, sev w/ psych F32.3 Cannabis use disorder F12.90 History of methamphetamine use F15.91 PTSD (post-traumatic stress disorder) F43.10 Hypertension I10 CKD (chronic kidney disease) N18.9 Renal transplant failure and rejection T86.12; T86.11
--- NOTE | 2023-11-01 06:34 | P.PN_ITS ---
Subjective 2 Subjective: no new complaints Medications: Reviewed: Yes Vitals/I&O/Wt Last Vital Signs Temp 97.9 F 10/31/23 23:30 Pulse 84 10/31/23 23:30 Resp 16 11/01/23 06:00 BP 124/80 10/31/23 23:30 Pulse Ox 98 10/31/23 23:30 O2 Del Method Room Air 10/29/23 20:22 Weight last 48 hrs Weight 46.8 kg Physical Exam 2 Narrative: awake, alert no edema Data 10/29/23 08:06 10/29/23 08:06 Micro: Microbiology 10/29/23 21:40 Urine Culture - Preliminary Urine,Clean Catch A&P Assessment and plan (1) CKD (chronic kidney disease) stage V requiring chronic dialysis: Plan 1. End-stage renal disease: On MWF schedule , next HD thursday 2. History of failed renal transplant, continue tacrolimus at home dose-to prevent acute rejection 3. Hypertension: Restart home meds Patient evaluated using audiovisual cart. Time spent 20 minutes. Attestations 2 Medical Necessity Statement*: per medicine Coding Level of Care Code Acute Code for [facility] Fwd Diagnoses CKD (chronic kidney disease) stage V requiring chronic dialysis N18.6; Z99.2
[2023-11-01] MEDS: paliperidone ER 6 mg Tablet PO (09:23)
[2023-11-01] MEDS: amlodipine 10 mg Tablet PO (09:23)
[2023-11-01] MEDS: predniSONE 5 mg Tablet PO (09:23)
[2023-11-01] MEDS: sevelamer 800 mg Tablet PO ×3 (09:24→20:32)
[2023-11-01] MEDS: tacrolimus 0.5 mg Capsule 2 MG PO (09:24)
[2023-11-01] MEDS: labetalol 200 mg Tablet PO ×2 (09:24→20:32)
[2023-11-01] MEDS: hyDRALAzine 50 mg Tablet 100 MG PO ×2 (09:24→20:32)
[2023-11-01] MEDS: doxazosin 4 mg Tablet PO (09:24)
[2023-11-01 14:00] VITALS: BP 136/84; PULSE 95; RESP 16; TEMP 36.6; O2SAT 96
[2023-11-01 20:04] VITALS: BP 141/109; PULSE 92; RESP 18; TEMP 36.6; O2SAT 98
[2023-11-01] MEDS: trazodone 50 mg Tablet PO (20:32)
[2023-11-01] MEDS: allopurinol 300 mg Tablet PO (20:32)
[2023-11-02 06:00] VITALS: BP 137/76; PULSE 82; RESP 16; O2SAT 97
--- NOTE | 2023-11-02 10:12 | P.PN_ITS ---
Subjective 2 Subjective: getting HD Medications: Reviewed: Yes Vitals/I&O/Wt Last Vital Signs Temp 97.9 F 11/01/23 20:04 Pulse 82 11/02/23 06:00 Resp 16 11/02/23 06:00 BP 137/76 11/02/23 06:00 Pulse Ox 97 11/02/23 06:00 O2 Del Method Room Air 11/01/23 20:04 Weight last 48 hrs Weight 46.04 kg Physical Exam 2 Narrative: awake, alert no edema Data 10/29/23 08:06 10/29/23 08:06 Micro: Microbiology 10/29/23 21:40 Urine Culture - Final Urine,Clean Catch A&P Assessment and plan (1) CKD (chronic kidney disease) stage V requiring chronic dialysis: Plan 1. End-stage renal disease: On MWF schedule , HD today 2. History of failed renal transplant, continue tacrolimus at home dose-to prevent acute rejection 3. Hypertension: Restarted home meds Patient evaluated using audiovisual cart. Time spent 20 minutes. Attestations 2 Medical Necessity Statement*: per medicne Coding Level of Care Code Acute Code for [facility] Fwd Diagnoses CKD (chronic kidney disease) stage V requiring chronic dialysis N18.6; Z99.2
[2023-11-02] MEDS: paliperidone ER 6 mg Tablet PO (11:56)
[2023-11-02] MEDS: predniSONE 5 mg Tablet PO (11:56)
[2023-11-02] MEDS: sevelamer 800 mg Tablet PO ×3 (11:56→20:09)
[2023-11-02] MEDS: amlodipine 10 mg Tablet PO (11:57)
[2023-11-02] MEDS: doxazosin 4 mg Tablet PO (11:57)
[2023-11-02 12:00] VITALS: BP 125/91
[2023-11-02] MEDS: labetalol 200 mg Tablet PO ×2 (12:01→20:09)
[2023-11-02] MEDS: hyDRALAzine 50 mg Tablet 100 MG PO ×2 (12:01→20:09)
[2023-11-02 14:00] VITALS: BP 123/77; PULSE 87; RESP 15; TEMP 36.7; O2SAT 98
[2023-11-02] MEDS: tacrolimus 0.5 mg Capsule 2 MG PO (17:40)
--- NOTE | 2023-11-02 18:55 | P.NPUPN_ITS ---
Subjective NPU 2 Subjective: 23-year-old male with a past history of methamphetamine abuse along with chronic kidney disease admitted with psychosis and depression. The patient continued to report that his thoughts were slowing down. He continued to describe hearing his own thoughts and stated that they were frequently negative. He continued to ruminate about the problems with his kidney were his own and somehow he reported feeling blame for not being able to manage his own medications and indirectly contributing to his kidney being rejected. He had reported no side effects from his Invega. He had expressed concern about wanting to have his thoughts under better control before he left the hospital. Mental Status Exam 2 MSE Comments: This is a short, diminutive, white male, in hospital scrubs on with adequate grooming and eye contact. No abnormal movements except for psychomotor retardation. He was cooperative with exam in mild distress. Some tattoos on exposed skin and noted torturous vein versus port in his right forearm. Speech was decreased rate and volume with some significant pauses possibly consistent with thought blocking. Mood described okay. His affect was mood incongruent and flat. Thought process was linear and organized. Thought content: patient denied any suicidal or homicidal ideation, there were no overt delusions but some overvalued ideas and some strange ideas of influence. Patient denied any auditory or visual hallucinations. Attention and concentration appear limited, and memory appears unreliable but none were formally tested. He is alert and oriented times person and place. Insight and judgment are limited, impulse control is impaired. Vitals/I&O/Wt Last Vital Signs Temp 98.0 F 11/02/23 14:00 Pulse 87 11/02/23 14:00 Resp 15 11/02/23 14:00 BP 123/77 11/02/23 14:00 Pulse Ox 98 11/02/23 14:00 O2 Del Method Room Air 11/01/23 20:04 Weight last 48 hrs Weight 46.04 kg Data NPU 10/29/23 08:06 10/29/23 08:06 A&P Assessment and plan (1) CKD (chronic kidney disease) stage V requiring chronic dialysis: Plan 1. End-stage renal disease: On MWF schedule , dialysis as scheduled. 2. History of failed renal transplant, continue tacrolimus at home dose-to prevent acute rejection 3. Continue invega 6 mg at night to target psychosis. Restart celexa 10mg daily. Involuntary Hold Information 2 96 Hour Hold: 96 Hour Involuntary Admission: No Attestations NPU 2 Medical Necessity Statement*: Inpatient hospitalization is medically necessary and the clinically appropriate intervention, at this time. We will monitor medications and make changes as indicated. His Likely length of stay is 2-4 days. Coding Level of Care Code Acute Code for [facility] Fwd Diagnoses CKD (chronic kidney disease) stage V requiring chronic dialysis N18.6; Z99.2
[2023-11-02 20:05] VITALS: BP 108/71; PULSE 97; RESP 16; TEMP 37.1; O2SAT 97
[2023-11-02] MEDS: allopurinol 300 mg Tablet PO (20:09)
[2023-11-02] MEDS: trazodone 50 mg Tablet PO ×2 (20:09→21:14)
[2023-11-03 06:00] VITALS: BP 109/63; PULSE 98; RESP 17; TEMP 36.8; O2SAT 98
--- NOTE | 2023-11-03 09:01 | P.PN_ITS ---
Subjective 2 Subjective: s/p HD yesterday Medications: Reviewed: Yes Vitals/I&O/Wt Last Vital Signs Temp 98.2 F 11/03/23 06:00 Pulse 98 11/03/23 06:00 Resp 17 11/03/23 06:00 BP 109/63 11/03/23 06:00 Pulse Ox 98 11/03/23 06:00 O2 Del Method Room Air 11/03/23 06:00 Physical Exam 2 Narrative: awake, alert no edema Data 10/29/23 08:06 10/29/23 08:06 A&P Assessment and plan (1) CKD (chronic kidney disease) stage V requiring chronic dialysis: Plan 1. End-stage renal disease: On MWF schedule , next HD tomorrow 2. History of failed renal transplant, continue tacrolimus at home dose-to prevent acute rejection 3. Hypertension: Restart home meds Patient evaluated using audiovisual cart. Time spent 20 minutes. Attestations 2 Medical Necessity Statement*: per primary team Coding Level of Care Code Acute Code for [facility] Fwd Diagnoses CKD (chronic kidney disease) stage V requiring chronic dialysis N18.6; Z99.2
[2023-11-03] MEDS: citalopram 20 mg Tablet 10 MG PO (09:24)
[2023-11-03] MEDS: predniSONE 5 mg Tablet PO (09:25)
[2023-11-03] MEDS: hyDRALAzine 50 mg Tablet 100 MG PO ×2 (09:25→21:06)
[2023-11-03] MEDS: labetalol 200 mg Tablet PO ×2 (09:25→21:07)
[2023-11-03] MEDS: doxazosin 4 mg Tablet PO (09:25)
[2023-11-03] MEDS: paliperidone ER 6 mg Tablet PO (09:25)
[2023-11-03] MEDS: amlodipine 10 mg Tablet PO (09:25)
[2023-11-03] MEDS: tacrolimus 0.5 mg Capsule 2 MG PO ×2 (09:26→21:07)
[2023-11-03] MEDS: sevelamer 800 mg Tablet PO ×2 (12:21→21:07)
[2023-11-03 14:00] VITALS: BP 119/76; PULSE 96; RESP 16; TEMP 36.6; O2SAT 97
--- NOTE | 2023-11-03 17:01 | P.NPUPN_ITS ---
Subjective NPU 2 Subjective: 23-year-old male with a past history of methamphetamine abuse along with chronic kidney disease admitted with psychosis and depression. The patient denied any psychotic symptoms at this time. He had reported ruminating less about his problems. He reported that he had not been as distracted by his own thoughts. He had continued to endorse depressed mood. He had endorsed some feelings of loneliness and reported being frustrated by his active medical problems including his kidney disease. He had reported that he had some blurriness of vision and was uncertain as to whether this was associated with his medications or his own chronic anxiety. Mental Status Exam 2 MSE Comments: This is a short, diminutive, white male, in hospital scrubs on with adequate grooming and eye contact. No abnormal movements except for psychomotor retardation. He was cooperative with exam in mild distress. Some tattoos on exposed skin and noted torturous vein versus port in his right forearm. Speech was more normal in rate and volume with no evidence of thought blocking noted. Mood described as depressed. His affect was mood congruent and restricted. Thought process was linear and organized. Thought content: patient denied any suicidal or homicidal ideation, there were no overt delusions and no clear paranoia noted. Patient denied any auditory or visual hallucinations. Attention and concentration appear limited, and memory appears unreliable but none were formally tested. He is alert and oriented times person and place. Insight and judgment are limited, impulse control is impaired. Vitals/I&O/Wt Last Vital Signs Temp 97.8 F 11/03/23 14:00 Pulse 96 11/03/23 14:00 Resp 16 11/03/23 14:00 BP 119/76 11/03/23 14:00 Pulse Ox 97 11/03/23 14:00 O2 Del Method Room Air 11/03/23 14:00 Data NPU 10/29/23 08:06 10/29/23 08:06 A&P Assessment and plan (1) CKD (chronic kidney disease) stage V requiring chronic dialysis: (2) Major depress, sev w/ psych: (3) Cannabis use disorder: (4) History of methamphetamine use: (5) PTSD (post-traumatic stress disorder): (6) Hypertension: (7) CKD (chronic kidney disease): (8) Renal transplant failure and rejection: Plan This is a 23-year-old, white male, with a long history of trauma, post-traumatic stress disorder, addiction, and loss, who presents struggling with his depression and likely psychosis and paranoia now receiving dialysis because he had organ rejection about 3 months ago with unclear sense of his last methamphetamine use, open to changes in his medication. RECOMMENDATION AND PLAN: 1. Continue current medication. Continue invega 6mg in am. Increase celexa to 20mg daily to target depression. 2. Encourage individual, group, and milieu therapy. 3. Continue q-15 minute checks for safety. 4. Encourage sober living treatment after discharge at the highest level care to which he is willing to commit. Involuntary Hold Information 2 96 Hour Hold: 96 Hour Involuntary Admission: No Attestations NPU 2 Medical Necessity Statement*: Inpatient hospitalization is medically necessary and the clinically appropriate intervention, at this time. We will monitor medications and make changes as indicated. His Likely length of stay is 3-5 days. Coding Level of Care Code Acute Code for [facility] Fwd Diagnoses CKD (chronic kidney disease) stage V requiring chronic dialysis N18.6; Z99.2 Major depress, sev w/ psych F32.3 Cannabis use disorder F12.90 History of methamphetamine use F15.91 PTSD (post-traumatic stress disorder) F43.10 Hypertension I10 CKD (chronic kidney disease) N18.9 Renal transplant failure and rejection T86.12; T86.11
[2023-11-03 20:46] VITALS: BP 134/81; PULSE 122; RESP 18; TEMP 36.8; O2SAT 98
[2023-11-03] MEDS: allopurinol 300 mg Tablet PO (21:07)
[2023-11-03] MEDS: trazodone 50 mg Tablet PO (22:22)
[2023-11-04 06:00] VITALS: BP 115/69; PULSE 86; RESP 16; TEMP 36.4; O2SAT 97
--- NOTE | 2023-11-04 10:46 | P.PN_ITS ---
Subjective 2 Subjective: geting hd Medications: Reviewed: Yes Vitals/I&O/Wt Last Vital Signs Temp 97.6 F 11/04/23 06:00 Pulse 86 11/04/23 06:00 Resp 16 11/04/23 06:00 BP 115/69 11/04/23 06:00 Pulse Ox 97 11/04/23 06:00 O2 Del Method Room Air 11/04/23 06:00 Physical Exam 2 Narrative: awake, alert no edema Data 10/29/23 08:06 10/29/23 08:06 A&P Assessment and plan (1) CKD (chronic kidney disease) stage V requiring chronic dialysis: Plan 1. End-stage renal disease: On MWF schedule , HD postponed till tomorow due to schedule issues 2. History of failed renal transplant, continue tacrolimus at home dose-to prevent acute rejection 3. Hypertension: Restart home meds Patient evaluated using audiovisual cart. Time spent 20 minutes. Attestations 2 Medical Necessity Statement*: per medicine Coding Level of Care Code Acute Code for [facility] Fwd Diagnoses CKD (chronic kidney disease) stage V requiring chronic dialysis N18.6; Z99.2
[2023-11-04] MEDS: doxazosin 4 mg Tablet PO ×2 (11:22→11:25)
[2023-11-04] MEDS: paliperidone ER 6 mg Tablet PO (11:22)
[2023-11-04] MEDS: tacrolimus 0.5 mg Capsule 2 MG PO ×2 (11:22→17:59)
[2023-11-04] MEDS: sevelamer 800 mg Tablet PO ×4 (11:23→21:26)
[2023-11-04] MEDS: predniSONE 5 mg Tablet PO (11:23)
[2023-11-04] MEDS: citalopram 20 mg Tablet PO (11:23)
[2023-11-04] MEDS: amlodipine 10 mg Tablet PO (11:23)
[2023-11-04] MEDS: hyDRALAzine 50 mg Tablet 100 MG PO ×2 (11:30→21:25)
[2023-11-04] MEDS: labetalol 200 mg Tablet PO ×2 (11:30→21:26)
[2023-11-04] MEDS: acetaminophen 325 mg Tablet 650 MG PO (11:39)
[2023-11-04 14:00] VITALS: BP 100/54; PULSE 103; RESP 14; TEMP 36.9; O2SAT 97
--- NOTE | 2023-11-04 17:08 | P.NPUPN_ITS ---
Subjective NPU 2 Subjective: 23-year-old male with a past history of methamphetamine abuse along with chronic kidney disease admitted with psychosis and depression. Patient reported that he was feeling better. He reported no side effects from his medications. He had reported having less worries about the future. He did not complain of any blurriness in vision today. He reported that he would be ready to return home soon. He had reported that he was not distracted by any internal thoughts at this time and denied any hallucinations. Mental Status Exam 2 MSE Comments: This is a short, diminutive, white male, in hospital scrubs on with adequate grooming and eye contact. No abnormal movements except for psychomotor retardation. He was cooperative with exam in mild distress. Some tattoos on exposed skin and noted torturous vein versus port in his right forearm. Speech was more normal in rate and volume with no evidence of thought blocking noted. Mood described as better. His affect remained somewhat flat. Thought process was linear and organized. Thought content: patient denied any suicidal or homicidal ideation, there were no overt delusions and no clear paranoia noted. Patient denied any auditory or visual hallucinations. Attention and concentration appear limited, and memory appears unreliable but none were formally tested. He is alert and oriented times person and place. Insight was improving and judgment is improving. Impulse control appeared to be improving as well. Vitals/I&O/Wt Last Vital Signs Temp 98.4 F 11/04/23 14:00 Pulse 103 H 11/04/23 14:00 Resp 14 11/04/23 14:00 BP 100/54 11/04/23 14:00 Pulse Ox 97 11/04/23 14:00 O2 Del Method Room Air 11/04/23 06:00 Data NPU 10/29/23 08:06 10/29/23 08:06 A&P Assessment and plan (1) CKD (chronic kidney disease) stage V requiring chronic dialysis: (2) Major depress, sev w/ psych: (3) Cannabis use disorder: (4) History of methamphetamine use: (5) PTSD (post-traumatic stress disorder): (6) Hypertension: (7) CKD (chronic kidney disease): (8) Renal transplant failure and rejection: Plan This is a 23-year-old, white male, with a long history of trauma, post-traumatic stress disorder, addiction, and loss, who presents struggling with his depression and likely psychosis and paranoia now receiving dialysis because he had organ rejection about 3 months ago with unclear sense of his last methamphetamine use, open to changes in his medication. RECOMMENDATION AND PLAN: 1. Continue current medication. Continue invega 6mg in am. Continue celexa at 20mg daily to target depression. 2. Encourage individual, group, and milieu therapy. 3. Continue q-15 minute checks for safety. 4. Encourage sober living treatment after discharge at the highest level care to which he is willing to commit. Involuntary Hold Information 2 96 Hour Hold: 96 Hour Involuntary Admission: No Attestations NPU 2 Medical Necessity Statement*: Inpatient hospitalization is medically necessary and the clinically appropriate intervention, at this time. We will monitor medications and make changes as indicated. His Likely length of stay is 1-2 days. Coding Level of Care Code Acute Code for [facility] Fwd Diagnoses CKD (chronic kidney disease) stage V requiring chronic dialysis N18.6; Z99.2 Major depress, sev w/ psych F32.3 Cannabis use disorder F12.90 History of methamphetamine use F15.91 PTSD (post-traumatic stress disorder) F43.10 Hypertension I10 CKD (chronic kidney disease) N18.9 Renal transplant failure and rejection T86.12; T86.11
[2023-11-04 20:46] VITALS: BP 138/89; PULSE 92; RESP 18; O2SAT 96
[2023-11-04] MEDS: trazodone 50 mg Tablet PO (21:27)
[2023-11-05 06:00] VITALS: BP 147/94; PULSE 83; RESP 16; TEMP 36.4; O2SAT 98
[2023-11-05] MEDS: ondansetron 4 MG Tablet PO (07:28)
--- NOTE | 2023-11-05 09:56 | P.PN_ITS ---
Subjective 2 Subjective: getting hD Medications: Reviewed: Yes Vitals/I&O/Wt Last Vital Signs Temp 97.5 F L 11/05/23 06:00 Pulse 83 11/05/23 06:00 Resp 16 11/05/23 06:00 BP 147/94 11/05/23 06:00 Pulse Ox 98 11/05/23 06:00 O2 Del Method Room Air 11/05/23 06:00 Physical Exam 2 Narrative: awake, alert no edema Data 10/29/23 08:06 10/29/23 08:06 A&P Assessment and plan (1) CKD (chronic kidney disease) stage V requiring chronic dialysis: Plan 1. End-stage renal disease: On MWF schedule , HD today 2. History of failed renal transplant, continue tacrolimus at home dose-to prevent acute rejection 3. Hypertension: Restart home meds Patient evaluated using audiovisual cart. Time spent 20 minutes. Attestations 2 Medical Necessity Statement*: per medicine Coding Level of Care Code Acute Code for [facility] Fwd Diagnoses CKD (chronic kidney disease) stage V requiring chronic dialysis N18.6; Z99.2
--- NOTE | 2023-11-05 12:00 | PC.NURSE ---
1000 Pt is off the unit having dialysis on med surg room 274.
--- NOTE | 2023-11-05 13:03 | PC.NURSE ---
1220 Escorted pt back to the unit with security, pt went straight to dayroom for lunch.
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
[2023-11-05 14:00] VITALS: BP 119/61; PULSE 99; RESP 14; TEMP 37; O2SAT 98
--- NOTE | 2023-11-05 14:10 | DCPLANNER ---
IMM was completed on 11/05/23 @ 2:07pm. Pt was given a copy of rights.
[2023-11-05 15:23] VITALS: BP 147/94; PULSE 83; RESP 16; TEMP 36.4; O2SAT 98
== END 2023-11-05 17:45 | disposition home or self-care (01) | DRG 885 ==
LOC: ER 22:44 → NP 23:24
PROVIDERS: Hospitalist; Internal Medicine; Student in an Organized Health Care Education/Training Program; Admitting Provider Psychiatry & Neurology Psychiatry; Emergency Provider Nurse Practitioner Family; PCP Family Medicine; Visit Provider Psychiatry & Neurology Psychiatry
DX: F33.3 Major depressive disorder, recurrent, severe with psychotic symptoms (principal); N18.6 End stage renal disease; Z94.0 Kidney transplant status; T86.11 Kidney transplant rejection; R45.851 Suicidal ideations; I12.0 Hypertensive chronic kidney disease with stage 5 chronic kidney disease or end stage renal disease; D84.821 Immunodeficiency due to drugs; F12.90 Cannabis use, unspecified, uncomplicated; F15.11 Other stimulant abuse, in remission; F43.10 Post-traumatic stress disorder, unspecified; Z72.0 Tobacco use; Z99.2 Dependence on renal dialysis; Z79.621 Long term (current) use of calcineurin inhibitor; Y83.8 Other surgical procedures as the cause of abnormal reaction of the patient, or of later complication, without mention of misadventure at the time of the procedure
CPT/HCPCS: 36415; 80048; 80053; 80197; 80306; 80307; 81001; 84443; 85025; 86706; 87086; 87340; 90935; 93005; 97150; 97165; 99285; J7507; J7512; Q0162

== ENCOUNTER 2024-04-22 14:31 | Inpatient (IN) | payer MEDICARE, MEDICAID, SELFPAY ==
[2024-04-22] VITALS (24 sets, daily range): BP systolic 122–167; BP diastolic 77–116; PULSE 65–86; RESP 12–27; TEMP 36.7; O2SAT 93–100
--- NOTE | 2024-04-22 14:43 | ECG_ITS ---
[facility] Test Date: 2024-04-22 Pat Name: Vance Sainz Department: Room: Gender: Male Radio Repairman: : [id number] Requested By: Serafin Peña Order Number: [id number] Danisha MD: Koby Shook M.D. Measurements Intervals [place] Rate: 70 P: 76 PA: 153 QRS: 78 QRSD: 95 T: 68 QT: 409 QTc: 442 Interpretive Statements SINUS RHYTHM Compared to ECG 10/28/2023 22:04:25 No significant changes Electronically Signed On 04-22-2024 18:39:48 CDT by Koby Shook M.D. [id number]
[2024-04-22] MEDS: ondansetron 2 mg/ML SDV 2 mL 4 MG IVP (15:14)
[2024-04-22 15:18] LABS: Basophils # 0.1 10^3/uL (0.0-0.1); Basophils % 1.3 %; Eosinophils # 0.3 10^3/uL (0.0-0.8); Hematocrit 33.1 % (37-53); Lymphocytes # 0.6 10^3/uL (0.8-4.8); Lymphocytes % 12.4 %; Mean Corpuscular Hemoglobin 31.3 pg (27-33); Mean Corpuscular Volume 97.6 fl (82-101); Mean Platelet Volume 10.5 fL (7.4-10.4); Monocytes # 0.7 10^3/uL (0.2-0.9); Monocytes % 14.9 %; Neutrophils # 2.99 10^3/uL (1.8-7.7); Neutrophils % 63.8 %; Nucleated Red Blood Cells % 0 %; Platelet Count 169 10^3/cmm (157-399); Red Blood Count 3.39 10^6/uL (3.85-5.65); Red Cell Distribution Width 14.6 % (12.1-15.1); White Blood Count 4.69 10^3/uL (3.29-11.43)
[2024-04-22 15:34] LABS: Alanine Aminotransferase 16 U/L (0-41); Albumin Level 4.6 g/dL (3.5-5.2); Alkaline Phosphatase 84 U/L (40-130); Anion Gap 20.3 (5-19); Aspartate Amino Transferase 15 U/L (0-40); Blood Urea Nitrogen 39 mg/dL (6-20); Calcium 9.3 mg/dL (8.5-10.5); Carbon Dioxide 27 mmol/L (22-29); Chloride 93 mmol/L (98-107); Globulin 2.2 g/dL (1.3-4.6); Glomerular Filtration Rate 8.8 mL/min (90-130); Glucose 74 mg/dL (65-115); Osmolality Calculated 286 mOsm/kg (285-295); Potassium 6.3 mmol/L (3.5-5.1); Sodium 134 mmol/L (136-145); Total Bilirubin 0.3 mg/dL (0.15-1.2); Total Protein 6.8 g/dL (6.6-8.7)
[2024-04-22 15:35] LABS: Acetaminophen < 5.0 ug/mL (10-30); Alcohol Level < 10 mg/dL (0-10); Salicylate < 0.3 mg/dL (3-10)
--- NOTE | 2024-04-22 15:38 | PC.NURSE ---
96 hr rights reviewed with patient @[id number] with assistance of [facility] alumni relations officer Mahamed. All education reviewed. Patient verbalized no concerns at this time to HS. Patient copy left with patient @bedside. No needs at this time.
--- NOTE | 2024-04-22 15:58 | W.ED.PSYCHS ---
HPI - Psych General: Chief Complaint: Psychiatric Symptoms Stated Complaint: intentional OD Time Seen by Provider: 04/22/24 14:36 Source: patient Mode of arrival: ambulatory Limitations: no limitations History of Present Illness: 23-year-old male is here with suicidal ideation he had taken 10 of his hydralazine and attempt to kill himself. This was roughly 2 hours ago. Patient has a history of dialysis he goes his receives dialysis Thursday. He states she is feels worthless and no one around living want to kill himself. Associated symptoms: Reports depression and suicidal ideation Review of Systems Const: Denies: fever(s), chills, body aches or change in appetite ENMT: Denies: throat pain or dental pain Card: Denies: chest pain Resp: Denies: dyspnea GI: Denies: abdominal pain, nausea, vomiting or diarrhea Musc: Denies: neck pain or back pain Skin/Breast: Denies: rash Neuro: Denies: headache(s) Psych: Reports: depression and suicidal ideation [facility] PFSH: Medical History Generalized anxiety disorder Other stimulant dependence, in remission Psychiatric care Problems related to lack of adequate sleep Substance abuse Depression Anxiety Social History Smoking and tobacco/nicotine status: current every day tobacco/nicotine user e-cigarettes E-Cigarette Details: vaporizer device and with nicotine E-cig/vape details: 6 mg and smokeless tobacco Smokeless tobacco user: chewing tobacco Smokeless tobacco details: 1 can/3 days. Quit status (tobacco/nicotine): has tried quititng Number of times tried to quit tobacco: 4 Second hand smoke exposure: No Physical Exam Const: COMMON NORMALS: patient oriented x3 HENMT: COMMON NORMALS: normocephalic and atraumatic HEAD & SCALP: normocephalic and atraumatic Neck/C-Spine: COMMON NORMALS: full ROM and supple Chest: COMMONS NORMALS: normal inspection of the chest Resp: COMMON NORMALS: normal respiratory effort, No retractions, No use of accessory muscles and clear to auscultation bilaterally AUSCULTATION: clear to auscultation bilaterally Cardio: COMMON NORMALS: regular rate, regular rhythm and No murmurs present (Cardio) RATE: regular rate RHYTHM: regular rhythm Extremity: COMMON NORMALS: normal to inspection and full ROM Neuro: COMMON NORMALS: patient oriented x3, moves all extremities and no focal motor deficits Psych: COMMON NORMALS: mental status grossly normal and cooperative MOOD & AFFECT: Yes depressed mood THOUGHT CONTENT: Yes Suicidality present Skin: COMMON NORMALS: no rashes or lesions noted and no wounds GENERAL SKIN EXAM: no rashes or lesions noted Course Vital Signs: Vital signs: Vital Signs Temperature 98.1 F 04/22/24 14:36 Pulse Rate 67 04/22/24 20:13 Respiratory Rate 20 H 04/22/24 20:13 Blood Pressure 152/97 04/22/24 20:13 Pulse Oximetry 100 04/22/24 20:13 Oxygen Delivery Me thod Room Air 04/22/24 14:36 [facility] - Psych Medical Decision Making Patient was presenting here after he tried to overdose on hydralazine he is found to be hyperkalemic he is a end-stage renal disease patient on dialysis I spoke to the hospitalist will admit as he likely needs dialysis before he is stable to go to the psych unit. I also spoke to psychiatrist and patient is on a 96-hour hold for suicidal ideations Lab Data 04/22/24 14:56 04/22/24 14:56 Laboratory Results WBC 4.69 10^3/uL (3.29-11.43) 04/22/24 14:56 RBC 3.39 10^6/uL (3.85-5.65) L 04/22/24 14:56 Hgb 10.60 g/dL (11.27-16.99) L 04/22/24 14:56 Hct 33.1 % (37-53) L 04/22/24 14:56 MCV 97.6 fl (82-101) 04/22/24 14:56 MCH 31.3 pg (27-33) 04/22/24 14:56 MCHC 32.0 g/dL (30-55) 04/22/24 14:56 RDW 14.6 % (12.1-15.1) 04/22/24 14:56 Plt Count 169 10^3/cmm (157-399) 04/22/24 14:56 MPV 10.5 fL (7.4-10.4) H 04/22/24 14:56 Neut % (Auto) 63.8 % 04/22/24 14:56 Lymph % (Auto) 12.4 % 04/22/24 14:56 [place] % (Auto) 14.9 % 04/22/24 14:56 Eos % (Auto) 7.0 % 04/22/24 14:56 Baso % (Auto) 1.3 % 04/22/24 14:56 Neut # (Auto) 2.99 10^3/uL (1.8-7.7) 04/22/24 14:56 Lymph # (Auto) 0.6 10^3/uL (0.8-4.8) L 04/22/24 14:56 [place] # (Auto) 0.7 10^3/uL (0.2-0.9) 04/22/24 14:56 Eos # (Auto) 0.3 10^3/uL (0.0-0.8) 04/22/24 14:56 Baso # (Auto) 0.1 10^3/uL (0.0-0.1) 04/22/24 14:56 Nucleated RBC % (auto) 0 % 04/22/24 14:56 Nucleated RBCs # 0.0 /100WBC 04/22/24 14:56 PT 12.90 SECONDS (12.1-14.9) 04/22/24 14:56 INR 0.94 (0.8-1.2) 04/22/24 14:56 Sodium 134 mmol/L (136-145) L 04/22/24 14:56 Sodium 139 mmol/L (136-145) 04/22/24 14:56 Potassium 6.3 mmol/L (3.5-5.1) H 04/22/24 14:56 Potassium 6.5 mmol/L (3.5-5.1) H* 04/22/24 14:56 Chloride 93 mmol/L (98-107) L 04/22/24 14:56 Chloride 96 mmol/L (98-107) L 04/22/24 14:56 Carbon Dioxide 26 mmol/L (22-29) 04/22/24 14:56 Carbon Dioxide 27 mmol/L (22-29) 04/22/24 14:56 Anion Gap 20.3 (5-19) H 04/22/24 14:56 Anion Gap 23.5 (5-19) H 04/22/24 14:56 BUN 39 mg/dL (6-20) H 04/22/24 14:56 BUN 40 mg/dL (6-20) H 04/22/24 14:56 Creatinine 7.7 mg/dL (0.7-1.2) H* 04/22/24 14:56 Creatinine 7.8 mg/dL (0.7-1.2) H* 04/22/24 14:56 GFR Calculation 8.7 mL/min (90-130) L 04/22/24 14:56 GFR Calculation 8.8 mL/min (90-130) L 04/22/24 14:56 Glucose 69 mg/dL (65-115) 04/22/24 14:56 Glucose 74 mg/dL (65-115) 04/22/24 14:56 POC Glucose 163 mg/dL (70-110) H 04/22/24 19:16 Calculated Osmolality 286 mOsm/kg (285-295) 04/22/24 14:56 Calculated Osmolality 296 mOsm/kg (285-295) H 04/22/24 14:56 Lactic Acid 1.6 mmol/L (0.5-2.2) 04/22/24 14:56 Calcium 9.3 mg/dL (8.5-10.5) 04/22/24 14:56 Calcium 9.5 mg/dL (8.5-10.5) 04/22/24 14:56 Total Bilirubin 0.3 mg/dL (0.15-1.2) 04/22/24 14:56 AST 15 U/L (0-40) 04/22/24 14:56 ALT 16 U/L (0-41) 04/22/24 14:56 Alkaline Phosphatase 84 U/L (40-130) 04/22/24 14:56 Creatine Kinase 111 U/L (39-308) 04/22/24 14:56 Troponin T Baseline 74 ng/L (0-15) H 04/22/24 17:50 NT-Pro-B Natriuret Pep 1042 pg/mL (0-125) H 04/22/24 17:50 Total Protein 6.8 g/dL (6.6-8.7) 04/22/24 14:56 Albumin 4.6 g/dL (3.5-5.2) 04/22/24 14:56 Globulin 2.2 g/dL (1.3-4.6) 04/22/24 14:56 Procalcitonin 0.47 ng/mL (0-0.5) 04/22/24 17:50 Salicylates < 0.3 mg/dL (3-10) L 04/22/24 14:56 Acetaminophen < 5.0 ug/mL (10-30) L 04/22/24 14:56 Ethyl Alcohol < 10 mg/dL (0-10) 04/22/24 14:56 All radiology interpretation(s) finalized by discharge Discharge Plan Discharge Patient Disposition: Admitted As Inpatient Admit Provider: Eliceo Hays Clinical Impression: Suicide attempt, Overdose of hydralazine, Hyperkalemia Condition: Stable Coding Level of Care Code ED Mysql Database Administrator for Loida Menon
[2024-04-22] MEDS: LORazepam 2 mg/mL INJ 1 mL 1 MG IVP (16:13)
[2024-04-22] MEDS: dextrose 10% 250 ML 1000 ML IV (16:14)
[2024-04-22] MEDS: insulin regular-human 100 units/1 mL 10 UNIT IVP (16:29)
[2024-04-22 17:32] LABS: Glucose Point of Care 36 mg/dL (70-110)
--- NOTE | 2024-04-22 17:47 | ECG_ITS ---
[facility] Test Date: 2024-04-22 Pat Name: Vance Sainz Department: Room: Gender: Male Architect: : 2000 Requested By: Eliceo Hays Order Number: [id number] Danisha MD: Koby Shook M.D. Measurements Intervals [place] Rate: 72 P: 70 CT: 148 QRS: 62 QRSD: 106 T: 60 QT: 430 QTc: 471 Interpretive Statements SINUS RHYTHM Compared to ECG 04/22/2024 15:16:21 No significant changes Electronically Signed On 04-22-2024 18:39:29 CDT by Koby Shook M.D. [email or web address] general hospitalAnimal Kingdomselect medical [facility], [facility].MyWants/store/OM/[id number]/[id number]
--- NOTE | 2024-04-22 18:08 | PM.HP ---
Providers/Chief Complaint Chief Complaint: intentional OD History of Present Illness Vance Sainz is a 23 year old male history of end-stage renal disease, on dialysis, history of renal transplant results from 2010, complicated by graft failure, currently on transplant rejection medications, dialysis schedule Thursday, who presents to [facility] due to suicide attempt. Patient was currently seen in the emergency room, normotensive, on room air, alert to person, to place, to time, he is tells me that he missed dialysis today, he reports taking hydralazine today and attempt to kill himself, he tells me he wants to kill himself. During my discussion, nursing staff will try to get an IV in him as he removed his IV he is easily redirectable, at times does become agitated, but can be redirected easily, he denies any drug use, he tells me he has not taken his transplant medications this morning. On examination patient appeared cool, clammy, he tells me he feels lightheaded, blood sugar was checked, it was 36, immediately we got him a cup of orange juice which he drank, I had ordered a milligram of glucagon subcu, in the meantime nurses were trying to get an IV, as soon as a got an IV which was within about 2 to 3 minutes, he was given an amp of D50, he feels a lot better, much more alert awake, at times does become agitated as the nurses keep trying for a second IV, but is redirectable, reexamined about 15 minutes later, recheck blood sugar in the 200s, denies feeling cool, does not appear to be clammy, denies feeling lightheaded again becoming very agitated with nurses answer attempting to get a second IV Review of Systems Const: Reports: fatigue and malaise; Denies: fever(s) or chills Card: Denies: chest pain Resp: Denies: dyspnea GI: Denies: abdominal pain Neuro: Denies: headache(s) Medications/Allergies Home Medications Medication Instructions Recorded Confirmed Last Taken Type labetalol 200 mg tablet 200 mg PO BID 05/10/21 01/07/24 01/20/23 History allopurinol 100 mg tablet 100 mg PO DAILY 04/18/22 03/21/24 10/20/22 History amlodipine 5 mg tablet (Norvasc) 5 mg PO BEDTIME 02/03/22 01/07/24 01/20/23 History cholecalciferol (vitamin D3) 25 2,000 unit PO DAILY 02/03/22 01/07/24 01/20/23 History mcg (1,000 unit) capsule (Vitamin D3) ondansetron 4 mg disintegrating 4 mg PO Q8H PRN Nausea 01/21/23 01/07/24 Unknown History tablet prednisone 20 mg tablet 20 mg PO DAILY 01/21/23 01/07/24 01/20/23 History doxazosin 4 mg tablet (Cardura) 4 mg PO DAILY 10/28/23 01/07/24 Unknown History hydralazine 100 mg tablet 100 mg PO BID 10/28/23 01/07/24 Unknown History vit B,C-folic ac 800 mcg-zinc 12.5 See Rx Instructions .Route .COMPLEX 10/28/23 01/07/24 Unknown History mg-selen-D3 2,000 unit-vit E tablet (RenaPlex-D) diphenhydramine HCl 25 mg capsule 25 mg PO Q8H PRN 12/03/23 01/07/24 Unknown History (Allergy (diphenhydramine)) heparin (porcine) 1,000 unit/mL intraperitoneal 12/03/23 01/07/24 Unknown History injection solution iron sucrose 100 mg iron/5 mL 100 mg IV DAILY 12/03/23 01/07/24 Unknown History intravenous solution nitroglycerin 0.4 mg sublingual 0.4 mg sublingual Q5M 12/03/23 01/07/24 Unknown History tablet tacrolimus 1 mg capsule, 2 mg PO Q12H 12/03/23 01/07/24 Unknown History immediate-release trazodone 100 mg tablet 100 mg PO QPM #30 tabs 12/03/23 01/07/24 Unknown Rx citalopram 20 mg tablet 30 mg (1.5 x 20 mg) PO DAILY #45 03/07/24 Unknown Rx tabs Allergies Allergy/AdvReac Type Severity Reaction Status Date / Time NSAIDS (Non-Steroidal Allergy Severe unable to Verified 01/07/24 11:42 Anti-Inflamma take due to kidney disease sertraline [From Zoloft] Allergy Unknown Verified 01/07/24 11:42 PFSH Acute PFSH: Medical History Generalized anxiety disorder Other stimulant dependence, in remission Psychiatric care Problems related to lack of adequate sleep Substance abuse Depression Anxiety Social History Smoking and tobacco/nicotine status: current every day tobacco/nicotine user e-cigarettes E-Cigarette Details: vaporizer device and with nicotine E-cig/vape details: 6 mg and smokeless tobacco Smokeless tobacco user: chewing tobacco Smokeless tobacco details: 1 can/3 days. Quit status (tobacco/nicotine): has tried quititng Number of times tried to quit tobacco: 4 Second hand smoke exposure: No Vitals/I&O/Wt Last Vital Signs Temp 98.1 F 04/22/24 14:36 Pulse 71 04/22/24 14:36 Resp 18 04/22/24 14:36 BP 128/77 04/22/24 14:36 Pulse Ox 99 04/22/24 14:36 O2 Del Method Room Air 04/22/24 14:36 04/22/24 04/22/24 04/22/24 06:59 14:59 22:59 Intake Total 250 / 250 Balance 250 / 250 Physical Exam Const: COMMON NORMALS: no acute distress and patient oriented x3 HENMT: COMMON NORMALS: normocephalic HEAD & SCALP: normocephalic Eye: COMMON NORMALS: Equal, round and reactive pupils present Resp: COMMON NORMALS: normal respiratory effort, No retractions and No use of accessory muscles Cardio: COMMON NORMALS: regular rate, regular rhythm, S1 normal heart sound present and S2 normal heart sound present RATE: regular rate RHYTHM: regular rhythm HEART SOUNDS: S1 normal heart sound present and S2 normal heart sound present GI: COMMON NORMALS: Normal to inspection, nondistended, normoactive bowel sounds present Extremity: COMMON NORMALS: no pedal edema Neuro: OTHER: Alert to person, to place, time moves upper and lower extremities, is able to talk, Data 04/22/24 14:56 04/22/24 14:56 A&P Assessment and plan (1) Acute encephalopathy: (2) Agitation: (3) Suicide attempt: (4) Overdose of hydralazine: (5) Hyperkalemia: (6) Missed dialysis: (7) Hypoglycemia: Plan Acute encephalopathy ? Can follow most commands easily becomes agitated at times does appear confused ? Could be from hypoglycemia -It could be from hydralazine overdose ? Neurochecks ? Aspiration precautions, -nih stroke scale ? Suicide precautions Agitation ? Ativan as needed Hyperkalemia -?has received insulin, D50 ? EKG no acute ST-T wave changes ? Will give an amp of calcium gluconate ? Recheck BMP, spoke to nephrology, if patient continues to have hyperkalemia, will need to receive dialysis urgently due to persistent hyperkalemia Missed dialysis Is possible dialysis today Hypoglycemia ? Status post D50, orange juice ? D10 at 75 cc an hour -Accu-Cheks q. hourly Suicide attempt ? Suicide precautions, admit to ICU Overdose of hydralazine ? Monitor EKGs every 4 hours ? Monitor for hypotension, dizziness, nausea ? Nausea control Full code SCDs for DVT prophylaxis Spoke to ER provider, spoke to Dr. Davis, severe hypoglycemia Attestations Medical Necessity Statement*: Patient requires hospitalization, inpatient, greater than 2 midnights, for hypoglycemia, missed dialysis, hyperkalemia, suicide attempt, agitation, encephalopathy Coding Level of Care Code Critical Care >/= 30 minutes Critical care time (in minutes): 35 The high probability of a clinically significant, sudden or life threatening deterioration, as referenced in this documentation, required my full and direct attention, intervention and personal management. The critical care time shown is in addition to time spent performing any reported separately billable procedures and includes the following: [x] Data and vital sign review and interpretation [x] Patient assessment, examination and intervention [x] Medication orders and management [x] Patient/Family updates as able [x] Care Coordination and Documentation. Diagnoses Acute encephalopathy G93.40 Agitation R45.1 Suicide attempt T14.91XA Overdose of hydralazine T46.5X1A Hyperkalemia E87.5 Missed dialysis Hypoglycemia E16.2
[2024-04-22 18:18] LABS: Anion Gap 23.5 (5-19); Blood Urea Nitrogen 40 mg/dL (6-20); Calcium 9.5 mg/dL (8.5-10.5); Carbon Dioxide 26 mmol/L (22-29); Chloride 96 mmol/L (98-107); Glomerular Filtration Rate 8.7 mL/min (90-130); Glucose 69 mg/dL (65-115); Lactic Sepsis W/Reflex 1.6 mmol/L (0.5-2.2); Osmolality Calculated 296 mOsm/kg (285-295); Sodium 139 mmol/L (136-145)
[2024-04-22 18:19] LABS: Troponin(5th) Baseline 74 ng/L (0-15)
[2024-04-22] MEDS: dextrose 50% syringe 50 mL (18:25)
[2024-04-22 18:26] LABS: Potassium 6.5 mmol/L (3.5-5.1)
[2024-04-22 18:27] LABS: Glucose Point of Care 111 mg/dL (70-110)
[2024-04-22 18:27] LABS: Glucose Point of Care 215 mg/dL (70-110)
[2024-04-22 18:27] LABS: Glucose Point of Care 108 mg/dL (70-110)
[2024-04-22 18:28] LABS: INR 0.94 (0.8-1.2)
[2024-04-22 18:30] LABS: Creatine Phosphokinase 111 U/L (39-308)
[2024-04-22 18:30] LABS: NT Pro B Type Natriuretic Pept 1042 pg/mL (0-125); Procalcitonin 0.47 ng/mL (0-0.5)
[2024-04-22] MEDS: calcium gluconate 0.1 gm/mL 10% SDV 10mL 1 GM IVP (18:37)
[2024-04-22] MEDS: pantoprazole 40 mg SDV IVP (18:37)
[2024-04-22 19:20] LABS: Glucose Point of Care 163 mg/dL (70-110)
[2024-04-22] MEDS: dextrose 10% 1,000 ML 75 ML IV ×2 (19:35→22:20)
--- NOTE | 2024-04-22 19:53 | P.CONIM_ITS ---
Providers/Reason For Consult 2 Consulting Physician/Specialty*: kommana/Nephrology Reason for Consult*: ESRD History of Present Illness History of Present Illness Vance Sainz is a 23 year old male Patient is a 23-year-old male with past medical history of end-stage renal disease on dialysis, failed renal transplant currently on MWF schedule presented to the emergency department due to intentional overdose with suicidal intent. In the emergency department his vital signs are stable but lab data is significant for severe hyperkalemia with a potassium of 6.3 on presentation. Potassium failed to improve with medical management. Patient denies any complaints and currently being admitted to ICU. Medications/Allergies Home Medications Medication Instructions Recorded Confirmed Last Taken Type labetalol 200 mg tablet 200 mg PO BID 05/10/21 01/07/24 01/20/23 History allopurinol 100 mg tablet 100 mg PO DAILY 02/03/22 01/07/24 08/07/22 History amlodipine 5 mg tablet (Norvasc) 5 mg PO BEDTIME 02/03/22 01/07/24 01/20/23 History cholecalciferol (vitamin D3) 25 2,000 unit PO DAILY 02/03/22 01/07/24 01/20/23 History mcg (1,000 unit) capsule (Vitamin D3) ondansetron 4 mg disintegrating 4 mg PO Q8H PRN Nausea 01/21/23 01/07/24 Unknown History tablet prednisone 20 mg tablet 20 mg PO DAILY 01/21/23 01/07/24 01/20/23 History doxazosin 4 mg tablet (Cardura) 4 mg PO DAILY 10/28/23 01/07/24 Unknown History hydralazine 100 mg tablet 100 mg PO BID 10/28/23 01/07/24 Unknown History vit B,C-folic ac 800 mcg-zinc 12.5 See Rx Instructions .Route .COMPLEX 10/28/23 01/07/24 Unknown History mg-selen-D3 2,000 unit-vit E tablet (RenaPlex-D) diphenhydramine HCl 25 mg capsule 25 mg PO Q8H PRN 12/03/23 01/07/24 Unknown History (Allergy (diphenhydramine)) heparin (porcine) 1,000 unit/mL intraperitoneal 12/03/23 01/07/24 Unknown History injection solution iron sucrose 100 mg iron/5 mL 100 mg IV DAILY 12/03/23 01/07/24 Unknown History intravenous solution nitroglycerin 0.4 mg sublingual 0.4 mg sublingual Q5M 12/03/23 01/07/24 Unknown History tablet tacrolimus 1 mg capsule, 2 mg PO Q12H 12/03/23 01/07/24 Unknown History immediate-release trazodone 100 mg tablet 100 mg PO QPM #30 tabs 12/03/23 01/07/24 Unknown Rx citalopram 20 mg tablet 30 mg (1.5 x 20 mg) PO DAILY #45 03/07/24 Unknown Rx tabs Allergies Allergy/AdvReac Type Severity Reaction Status Date / Time NSAIDS (Non-Steroidal Allergy Severe unable to Verified 01/07/24 11:42 Anti-Inflamma take due to kidney disease sertraline [From Zoloft] Allergy Unknown Verified 01/07/24 11:42 Current Medications Generic Name Dose Route Start Last Admin Trade Name Freq PRN Reason Stop Dose Admin Dextrose 1,000 mls @ 75 mls/hr 04/22/24 18:00 04/22/24 19:35 D10w IV 75 mls/hr .[id number] OMAR Administration Pantoprazole Sodium 40 mg 04/22/24 17:48 04/22/24 18:37 Pantoprazole 40 Mg Sdv IVP 40 mg Q24H OMAR Administration PFSH Acute 2 PFSH: Medical History (Updated 04/23/24 @ 09:40 by Kay Hurtado MD) CKD (chronic kidney disease) stage V requiring chronic dialysis Generalized anxiety disorder Other stimulant dependence, in remission Psychiatric care Problems related to lack of adequate sleep Substance abuse Depression Anxiety Social History Smoking and tobacco/nicotine status: current every day tobacco/nicotine user e- cigarettes E-Cigarette Details: vaporizer device and with nicotine E-cig/vape details: 6 mg and smokeless tobacco Smokeless tobacco user: chewing tobacco Smokeless tobacco details: 1 can/3 days. Quit status (tobacco/nicotine): has tried quititng Number of times tried to quit tobacco: 4 Second hand smoke exposure: No Vitals/I&O/Wt Last Vital Signs Temp 98.1 F 04/22/24 14:36 Pulse 71 04/22/24 14:36 Resp 18 04/22/24 14:36 BP 128/77 04/22/24 14:36 Pulse Ox 99 04/22/24 14:36 O2 Del Method Room Air 04/22/24 14:36 04/22/24 04/22/24 04/22/24 06:59 14:59 22:59 Intake Total 250 / 250 Balance 250 / 250 Data 04/23/24 06:09 04/23/24 04:14 A&P Assessment and plan (1) ESRD on hemodialysis: Plan 1. End-stage renal disease: On MWF schedule, HD today for hyperkalemia 2. Hyperkalemia: Low K diet and HD as above 3. Anemia: Hemoglobin 10.6, monitor RUBA with HD 4. Failed renal transplant, on tacrolimus 1 mg twice a day and prednisone 20 Mg daily 5. Depression with suicidal intent, management per primary team 6. Hypoglycemia, Patient evaluated using audiovisual cart. Time spent 40 minutes. Consult Attestations 2 Medical Necessity Statement: PER STEPHANIE Coding Level of Care Code Acute Code for Chg Fwd Diagnoses ESRD on hemodialysis N18.6; Z99.2
[2024-04-22] MEDS: sodium polystyrene sulfonate 15 gm/60 mL Btl PO (20:01)
[2024-04-22] MEDS: TACROLIMUS 1 MG PO (20:02)
--- NOTE | 2024-04-22 20:35 | PC.NURSE ---
Arrival to ICU: Pt arrived to ICU 7 @approximately 2029 and was connected to continuos cardiac monitoring. Pt immediately stated that he does not want any of this and will not let us do dialysis. Pt stated, You'll have to tie me down to do that, ill move until it infiltrates . Pt continued to refuse stating he wants to go on hospice care. Dr. Asher called @2111 to update on situation. About an hour later, after talking w/ Dr. Asher at bedside, pt agreed to do dialysis tonight. At approximately 2229 new order received for Benadryl 12.5 mg IVP ONCE for anxiety during dialysis.
--- NOTE | 2024-04-22 20:51 | ECG_ITS ---
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 Measurements Intervals [place] Rate: 68 P: 56 [place]: 131 QRS: 68 QRSD: 96 T: 64 QT: 410 QTc: 436 Interpretive Statements SINUS RHYTHM WITH SINUS ARRHYTHMIA VOLTAGE CRITERIA FOR LVH [MEETS CRITERIA IN ONE OF: R(aVL), S(V1), R(V5), R(V5/V6)+S(V1)] Compared to ECG 04/22/2024 18:05:46 Left ventricular hypertrophy now present Electronically Signed On 04-24-2024 19:33:33 CDT by Koby Shook M.D. https://[email or web address] Labsallegiance specialty hospital of greenvillePropellerblanchard valley health system [facility].Tactiga/store/NU/[id number] f
--- NOTE | 2024-04-22 20:51 | ECG_ITS ---
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 Measurements Intervals [place] Rate: 68 P: 56 [place]: 131 QRS: 68 QRSD: 96 T: 64 QT: 410 QTc: 436 Interpretive Statements SINUS RHYTHM WITH SINUS ARRHYTHMIA VOLTAGE CRITERIA FOR LVH [MEETS CRITERIA IN ONE OF: R(aVL), S(V1), R(V5), R(V5/V6)+S(V1)] Compared to ECG 04/22/2024 18:05:46 Left ventricular hypertrophy now present Electronically Signed On 04-24-2024 19:33:26 CDT by Koby Shook M.D. [email or web address].SueEasyjasper general hospitalWatrHubmercy health spring[facility].Tapit/store/NU/[id number] f
[2024-04-22 20:56] LABS: Glucose Point of Care 100 mg/dL (70-110)
[2024-04-22 21:16] LABS: Chol HDL Ratio 3.24 mg/dL (1.0-5.00); Cholesterol 149 mg/dL (0-200); HDL Cholesterol 46 mg/dL (60-100); LDL Cholesterol Calculated 91 mg/dL (50-129); LDL HDL Ratio 1.98 RATIO (0.00-3.22); Triglycerides 59 mg/dL (0-150)
[2024-04-22 21:54] LABS: Glucose Point of Care 122 mg/dL (70-110)
[2024-04-22 22:02] LABS: Troponin 5 2HR 69.48 ng/L (0-15)
[2024-04-22 22:03] LABS: Estmated Average Glucose 82; Hemoglobin A1C 4.5 % (4.0-6.0)
[2024-04-22] MEDS: heparin, porcine 1,000 unit/mL INJ 10 mL 1000 UNIT IV (22:03)
[2024-04-22 22:06] LABS: Troponin 5 2HR Delta -4.52 ABS# (0-10)
--- NOTE | 2024-04-22 22:19 | PC.NURSE ---
D10 Infusion: Pt arrived w/ 250ml bag of d10 hanging, bag infused @2220, MAR edited to reflect this.
--- NOTE | 2024-04-22 22:33 | PC.HD ---
Patient originally refusing dialysis, has agreed to proceed and electronic consent signed. Heparin 1000 units loading dose administered at 2204 via venous needle per squeezer operator's orders. Patient lying quietly.
[2024-04-22 22:44] LABS: Hepatitis B Surface AB 37.9 (11.5-1000); Hepatitis B Surface Antigen Non-Reactive (Nonreactive)
[2024-04-22] MEDS: diphenhydrAMINE 50 mg/mL SDV 1mL 12.5 MG IVP (22:50)
[2024-04-22 23:01] LABS: Glucose Point of Care 104 mg/dL (70-110)
--- NOTE | 2024-04-22 23:38 | ECG_ITS ---
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 Measurements Intervals [place] Rate: 91 P: 72 [place]: 132 QRS: 72 QRSD: 101 T: 73 QT: 378 QTc: 466 Interpretive Statements SINUS RHYTHM RIGHT ATRIAL ENLARGEMENT [0.3mV P-WAVE] Compared to ECG 04/22/2024 20:51:07 Atrial abnormality now present Sinus arrhythmia no longer present Left ventricular hypertrophy no longer present Electronically Signed On 04-24-2024 19:33:09 CDT by Koyb Shook M.D. [email or web address].Gilian Technologiesmartin luther hospital medical center.CinemaNow/store/OM/[id number]/[id number]
[2024-04-23] VITALS (30 sets, daily range): BP systolic 110–151; BP diastolic 59–115; PULSE 74–111; RESP 10–31; TEMP 36.6–37.7; O2SAT 93–99
[2024-04-23 00:21] LABS: Glucose Point of Care 118 mg/dL (70-110)
[2024-04-23 01:00] LABS: Troponin 5 6HR 69.26 ng/L (0-15)
[2024-04-23 01:06] LABS: Troponin 5 6HR Delta -4.74 ng/L (0-12)
[2024-04-23 01:19] LABS: Glucose Point of Care 122 mg/dL (70-110)
[2024-04-23 02:04] LABS: Glucose Point of Care 113 mg/dL (70-110)
--- NOTE | 2024-04-23 02:30 | ECG_ITS ---
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 Measurements Intervals [place] Rate: 108 P: 82 [place]: 135 QRS: 80 QRSD: 98 T: 68 QT: 345 QTc: 464 Interpretive Statements SINUS TACHYCARDIA RIGHT ATRIAL ENLARGEMENT [0.3mV P-WAVE] Compared to ECG 04/22/2024 23:38:04 Sinus rhythm no longer present Electronically Signed On 04-24-2024 19:32:50 CDT by Koby Shook M.D. [email or web address].Plan B Fundingjack hughston memorial hospitalChargemasteruniversity hospitals beachwood [facility] center.ThinAir [employer]/store/OM/[id number]/ecg/[id number]
[2024-04-23] MEDS: LORazepam 2 mg/mL INJ 1 mL 0.5 MG IVP (03:12)
[2024-04-23 03:27] LABS: Glucose Point of Care 115 mg/dL (70-110)
[2024-04-23 04:00] LABS: Glucose Point of Care 101 mg/dL (70-110)
[2024-04-23 05:09] LABS: Alanine Aminotransferase 17 U/L (0-41); Albumin Level 4.6 g/dL (3.5-5.2); Alkaline Phosphatase 90 U/L (40-130); Aspartate Amino Transferase 20 U/L (0-40); Blood Urea Nitrogen 18 mg/dL (6-20); Calcium 9.5 mg/dL (8.5-10.5); Carbon Dioxide 25 mmol/L (22-29); Chloride 95 mmol/L (98-107); Creatinine Clr Calc Pharmacy 14.4592; Globulin 2.5 g/dL (1.3-4.6); Glomerular Filtration Rate 14.8 mL/min (90-130); Glucose 96 mg/dL (65-115); Magnesium 2.4 mg/dL (1.7-2.3); Osmolality Calculated 286 mOsm/kg (285-295); Phosphorus 5.2 mg/dL (2.5-4.5); Sodium 137 mmol/L (136-145); Total Bilirubin 0.4 mg/dL (0.15-1.2); Total Protein 7.1 g/dL (6.6-8.7)
[2024-04-23 05:10] LABS: Glucose Point of Care 102 mg/dL (70-110)
[2024-04-23 05:11] LABS: Anion Gap 21.2 (5-19); Potassium 4.2 mmol/L (3.5-5.1)
[2024-04-23 06:01] LABS: Glucose Point of Care 107 mg/dL (70-110)
--- NOTE | 2024-04-23 06:30 | ECG_ITS ---
[facility] Test Date: 2024-04-23 Pat Name: Vance Sainz Department: Room: ICU07 Gender: Male Service Supervisor: : [id number] Requested By: Eliceo Hays Order Number: [id number] Danisha MD: Koby Shook M.D. Measurements Intervals [place] Rate: 81 P: 79 MN: 143 QRS: 77 QRSD: 98 T: 69 QT: 378 QTc: 440 Interpretive Statements SINUS RHYTHM WITH SINUS ARRHYTHMIA POSSIBLE RIGHT ATRIAL ENLARGEMENT [0.25mV P-WAVE] Compared to ECG 04/23/2024 02:30:10 Sinus tachycardia no longer present Electronically Signed On 04-24-2024 19:32:05 CDT by Koby Shook M.D. [email or web address]
[2024-04-23 06:44] LABS: Add Urine Microscopic? YES; Bilirubin Urine Neg (Negative); Blood Urine Neg (Negative); Glucose Urine UA Norm (Normal); Ketones Urine Negative (Negative); Leukocyte Esterase Urine Trace (Negative); Nitrate Urine Negative (Negative); Protein Urine 1+ (Negative); Urine Appearance Clear (CLEAR); Urine Color Yellow (Yellow); Urobilinogen Urine Norm (Negative); pH Urine 9 (5-7)
[2024-04-23 06:45] LABS: Add Urine Culture? No; Bacteria Urine TRACE /hpf
[2024-04-23 06:46] LABS: Amphetamines Screen Urine Negative (Negative); Barbiturates Screen Urine Negative (Negative); Benzodiazepines Screen Urine Negative (Negative); Cocaine Screen Urine Negative (Negative); Opiate Screen Urine Negative (Negative); PCP Screen Urine Negative (Negative); THC Screen Urine Positive (Negative)
[2024-04-23 06:53] LABS: Basophils # 0.1 10^3/uL (0.0-0.1); Basophils % 1.3 %; Eosinophils # 0.3 10^3/uL (0.0-0.8); Eosinophils % 5.6 %; Lymphocytes # 0.6 10^3/uL (0.8-4.8); Lymphocytes % 9.9 %; Mean Corpuscular HGB Conc 32.6 g/dL (30-55); Mean Corpuscular Hemoglobin 31.8 pg (27-33); Mean Corpuscular Volume 97.5 fl (82-101); Mean Platelet Volume 10.8 fL (7.4-10.4); Monocytes # 0.9 10^3/uL (0.2-0.9); Monocytes % 15.9 %; Neutrophils % 65.8 %; Nucleated Red Blood Cells % 0 %; Platelet Count 180 10^3/cmm (157-399); Red Blood Count 3.59 10^6/uL (3.85-5.65); Red Cell Distribution Width 14.6 % (12.1-15.1); White Blood Count 5.93 10^3/uL (3.29-11.43)
[2024-04-23 07:12] LABS: Glucose Point of Care 92 mg/dL (70-110)
[2024-04-23] MEDS: acetaminophen 325 mg Tablet 650 MG PO (07:46)
[2024-04-23] MEDS: ondansetron 2 mg/ML SDV 2 mL 4 MG IVP (07:46)
[2024-04-23] MEDS: predniSONE 20 mg Tablet PO (08:06)
[2024-04-23 09:41] LABS: Glucose Point of Care 106 mg/dL (70-110)
--- NOTE | 2024-04-23 09:41 | P.PN_ITS ---
Subjective 2 Subjective: Denies any complaints Medications: Reviewed: Yes Vitals/I&O/Wt Last Vital Signs Temp 98.8 F 04/23/24 08:00 Pulse 87 04/23/24 09:00 Resp 19 H 04/23/24 09:00 BP 110/74 04/23/24 09:00 Pulse Ox 98 04/23/24 09:00 O2 Del Method Room Air 04/23/24 09:00 04/22/24 04/23/24 04/23/24 22:59 06:59 14:59 Intake Total 400 / 400 880.00 / 1280.00 200 / 200 Output Total 3150 / 3150 Balance 400 / 400 -2270.00 / -1870.00 200 / 200 Weight last 48 hrs Weight 45.405 kg Weight 43.6 kg Weight 45.904 kg Physical Exam 2 Narrative: awake, alert , no distress On room air S1-S2 and regular rate and rhythm per report Lungs clear per report no edema Data 04/23/24 06:09 04/23/24 04:14 A&P Assessment and plan (1) ESRD on hemodialysis: Plan 1. End-stage renal disease: On MWF schedule, HD done as today due to hyperkalemia , next HD thursday 2. Hyperkalemia: Low K diet and HD as above 3. Anemia: Hemoglobin 10.6, monitor RUBA with HD 4. Failed renal transplant, on tacrolimus 1 mg twice a day and prednisone 20 Mg daily 5. Depression with suicidal intent, management per primary team 6. Hypoglycemia, Patient evaluated using audiovisual cart. Time spent 40 minutes. Attestations 2 Medical Necessity Statement*: Per medicine team Coding Level of Care Code Acute Code for [facility] Fwd Diagnoses ESRD on hemodialysis N18.6; Z99.2
[2024-04-23] MEDS: NON-FORMULARY MEDICATION (Vit B,C-Fa-Zinc-Selen-Vit D3-E [Renaplex-D] 800 mcg-12.5 mg -2,0 PO (10:03)
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
[2024-04-23] MEDS: dextrose 10% 1,000 ML 75 ML IV (10:59)
[2024-04-23 11:06] LABS: Glucose Point of Care 142 mg/dL (70-110)
[2024-04-23 11:06] LABS: Glucose Point of Care 105 mg/dL (70-110)
[2024-04-23 12:00] LABS: Glucose Point of Care 123 mg/dL (70-110)
[2024-04-23 13:16] LABS: Glucose Point of Care 106 mg/dL (70-110)
--- NOTE | 2024-04-23 13:56 | P.PN_ITS ---
Subjective 2 Subjective: Patient was seen this morning, he is alert oriented x 4, following all commands, he received dialysis last night for hyperkalemia, missed dialysis, denies any headache, no lightheadedness, dizziness, he continues to be on D10 due to development of hypoglycemic episodes, he denies any use of glipizide or glimepiride, the only medication he took was the hydralazine, we discussed that there are some associations with hypoglycemia and hydralazine, will wean him off the D10 and watch his blood sugars, if reasonable we can move him to neuropsych, he also tells me that he uses tacrolimus 2 mg p.o. every 12 hours will adjust his dose Vitals/I&O/Wt Last Vital Signs Temp 99.8 F H 04/23/24 12:00 Pulse 79 04/23/24 12:00 Resp 19 H 04/23/24 12:00 BP 133/88 04/23/24 12:00 Pulse Ox 96 04/23/24 12:00 O2 Del Method Room Air 04/23/24 12:00 04/22/24 04/23/24 04/23/24 22:59 06:59 14:59 Intake Total 400 / 400 880.00 / 1280.00 697.50 / 697.50 Output Total 3150 / 3150 Balance 400 / 400 -2270.00 / -1870.00 697.50 / 697.50 Weight last 48 hrs Weight 45.405 kg Weight 43.6 kg Weight 45.904 kg Physical Exam 2 Const: COMMON NORMALS: no acute distress and patient oriented x3 Resp: COMMON NORMALS: normal respiratory effort, No retractions, No use of accessory muscles and clear to auscultation bilaterally AUSCULTATION: clear to auscultation bilaterally Cardio: COMMON NORMALS: regular rate, regular rhythm, S1 normal heart sound present and S2 normal heart sound present RATE: regular rate RHYTHM: r egular rhythm HEART SOUNDS: S1 normal heart sound present and S2 normal heart sound present GI: COMMON NORMALS: Normal to inspection, nondistended, normoactive bowel sounds present and non-tender Extremity: COMMON NORMALS: no pedal edema Neuro: COMMON NORMALS: patient oriented x3 Psych: COMMON NORMALS: mental status grossly normal Data 04/23/24 06:09 04/23/24 04:14 A&P Assessment and plan (1) Acute encephalopathy: (2) Agitation: (3) Suicide attempt: (4) Overdose of hydralazine: (5) Hyperkalemia: (6) Missed dialysis: (7) Hypoglycemia: Plan Acute encephalopathy, resolved ? Can follow most commands easily becomes agitated at times does appear confused ? Could be from hypoglycemia -It could be from hydralazine overdose ? Neurochecks ? Aspiration precautions, -nih stroke scale ? Suicide precautions Agitation, resolved ? Ativan as needed Hyperkalemia, resolved -?has received insulin, D50 ? EKG no acute ST-T wave changes ? calcium gluconate ? Status post dialysis Missed dialysis Status post dialysis Hypoglycemia ? Status post D50, orange juice ? D10 at 75 cc an hour -Accu-Cheks q. hourly ? Will wean off D10 continue monitoring blood sugars Suicide attempt ? Suicide precautions, admit to ICU Overdose of hydralazine ? Monitor EKGs every 4 hours ? Monitor for hypotension, dizziness, nausea ? Nausea control End-stage renal disease, status post renal transplant, continue home prednisone, tacrolimus Full code SCDs for DVT prophylaxis Plan for today, monitor blood sugars, wean off D10 moved to the neuropsychiatric unit Attestations 2 Medical Necessity Statement*: Patient requires hospitalization for hydralazine overdose, persistent hypoglycemia potentially late effect of hydralazine Diagnoses Acute encephalopathy G93.40 Agitation R45.1 Suicide attempt T14.91XA Overdose of hydralazine T46.5X1A Hyperkalemia E87.5 Missed dialysis Hypoglycemia E16.2
[2024-04-23 14:06] LABS: Glucose Point of Care 111 mg/dL (70-110)
[2024-04-23 14:19] LABS: Glucose Point of Care 137 mg/dL (70-110)
[2024-04-23 15:13] LABS: Glucose Point of Care 119 mg/dL (70-110)
--- NOTE | 2024-04-23 15:49 | PC.NURSE ---
Report called to Julianna in NPU, Patient is to go to room 129. Patient will be transported after 1600.
[2024-04-23 16:03] LABS: Glucose Point of Care 107 mg/dL (70-110)
--- NOTE | 2024-04-23 16:17 | PC.NURSE ---
Patient transferred to NPU 129, via wheelchair with security. All belongings left with staff at manager front office including home meds. Patient in green scrubs with wristbands in place as well as dressing over fistula. Patient had no complaints and only request was to let his former PA know he was sorry for his actions on admission. Staff updated on glucose monitoring.
[2024-04-23 17:11] LABS: Glucose Point of Care 102 mg/dL (70-110)
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
--- NOTE | 2024-04-23 18:59 | PC.NURSE ---
Spoke with Dr. Hays on the phone who requested patient be taken off hourly glucose monitoring orders. He said to watch the patient's status and if he became cold or clammy to restart them. He requested staff take the patient's glucose at 2100.
[2024-04-23] MEDS: TACROLIMUS 1 MG PO (19:07)
[2024-04-23] MEDS: OLANZapine 5 mg ODT PO (21:07)
[2024-04-23 21:26] LABS: Glucose Point of Care 102 mg/dL (70-110)
[2024-04-23] MEDS: zolpidem 5 mg Tablet PO (22:42)
[2024-04-24 06:00] VITALS: BP 136/79; PULSE 70; RESP 16; TEMP 36.5; O2SAT 99
[2024-04-24] MEDS: TACROLIMUS 1 MG PO ×2 (08:51→18:24)
[2024-04-24] MEDS: NON-FORMULARY MEDICATION (Vit B,C-Fa-Zinc-Selen-Vit D3-E [Renaplex-D] 800 mcg-12.5 mg -2,0 PO (08:51)
[2024-04-24] MEDS: sevelamer 800 mg Tablet 1600 MG PO ×3 (08:51→17:40)
[2024-04-24] MEDS: predniSONE 20 mg Tablet PO (08:51)
--- NOTE | 2024-04-24 09:07 | P.PN_ITS ---
Subjective 2 Subjective: Feels well no nausea vomiting or shortness of breath. He states he is sorry that he took a blood pressure pills. He no longer wants to harm himself. Medications: Reviewed: Yes Medication Review Details: Current Medications Acetaminophen (Acetaminophen 325 Mg Tablet) 650 mg PO Q6H PRN PRN Reason: Mild/Mod Pain Or Temp >/= 101 Last Admin: 04/23/24 07:46 Dose: 650 mg Acetaminophen (Acetaminophen 325 Mg Tablet) 650 mg PO Q4H PRN PRN Reason: MILD PAIN Benztropine Mesylate (Benztropine 1 Mg Tablet) 1 mg PO BID PRN PRN Reason: Mild Extrapyramidal symptoms Camphor/Menthol/Phenol (Blistex Lip Oint 7 Gm Tube) 1 applic TOPICAL Q1H PRN PRN Reason: DRYNESS Diphenhydramine HCl (Diphenhydramine 50 Mg/Ml Sdv 1ml) 50 mg IM ONCE PRN PRN Reason: Severe Extrapyramidal Symptoms Diphenhydramine HCl (Diphenhydramine 50 Mg/Ml Sdv 1ml) 50 mg IM Q4H PRN PRN Reason: Severe Aggression Glucagon (Glucagon 1 Mg/Ml Kit 1 Ml) 1 mg IM ONCE PRN; Protocol PRN Reason: Adult Acute Hypoglycemia Nursing Prot. Haloperidol (Haloperidol 5 Mg Tablet) 5 mg PO Q4H PRN PRN Reason: AGITATION Haloperidol Lactate (Haloperidol Inj 5 Mg/Ml Inj 1 Ml) 5 mg IM Q4H PRN PRN Reason: Severe Aggression Hydroxyzine Pamoate (Hydroxyzine 25 Mg Capsule) 50 mg PO Q6H PRN PRN Reason: ANXIETY Dextrose (D5w) 500 mls @ 0 mls/hr IV ONCE PRN; Protocol PRN Reason: Adult Acute Hypoglycemia Prot Dextrose (D10w) 125 mls @ 750 mls/hr IV PRN PRN; Protocol PRN Reason: Adult Acute Hypoglycemia Nursing Protocol Dextrose (D10w) 250 mls @ 1,000 mls/hr IV PRN PRN; Protocol PRN Reason: Adult Acute Hypoglycemia Nursing Protocol Sodium Chloride (Sodium Chloride 0.9%) 1,000 mls @ 0 mls/hr IV .Q0M PRN PRN Reason: hypotension or symptomatic Albumin Human (Albumin) 12.5 gm in 50 mls @ 60 mls/hr IV PRN PRN PRN Reason: Hypotension and/or symptomatic Loperamide HCl (Loperamide 2 Mg Capsule) 2 mg PO Q6H PRN PRN Reason: DIARRHEA Lorazepam (Lorazepam 2 Mg/Ml Inj 1 Ml) 2 mg IM Q4H PRN PRN Reason: Severe Aggression Nicotine (Nicotine 21 Mg Patch) 1 patch TRANSDERMA DAILY PRN PRN Reason: NICOTINE WITHDRAWAL Nicotine Polacrilex (Nicotine 2 Mg Gum) 2 mg BUCCAL Q2H PRN PRN Reason: NICOTINE WITHDRAWAL Non-Formulary Medication (Vit B,B-Pb-Niic-Selen-Vit D3-E [Renaplex-D]) 0 tab PO DAILY [facility] Last Admin: 04/24/24 08:51 Dose: 1 tab Non-Formulary Medication Tacrolimus 1 Mg Capsule 0 each PO Q12H [facility] Last Admin: 04/24/24 08:51 Dose: 1 each Olanzapine (Olanzapine 5 Mg Odt) 5 mg PO Q4H PRN PRN Reason: Agitation/Psychosis Last Admin: 04/23/24 21:07 Dose: 5 mg Ondansetron HCl (Ondansetron 2 Mg/Ml Sdv 2 Ml) 4 mg IVP Q8H PRN PRN Reason: vomiting, or N/V if npo Last Admin: 04/23/24 07:46 Dose: 4 mg Ondansetron HCl (Ondansetron 4 Mg Tablet) 4 mg PO Q6H PRN PRN Reason: NAUSEA AND VOMITING Prednisone (Prednisone 20 Mg Tablet) 20 mg PO DAILY [facility] Last Admin: 04/24/24 08:51 Dose: 20 mg Sevelamer Carbonate (Sevelamer 800 Mg Tablet) 1,600 mg PO TIDWM [facility] Last Admin: 04/24/24 08:51 Dose: 1,600 mg Trazodone HCl (Trazodone 50 Mg Tablet) 50 mg PO BEDTIME PRN PRN Reason: SLEEP Zolpidem Tartrate (Zolpidem 5 Mg Tablet) 5 mg PO BEDTIME [facility] Last Admin: 04/23/24 22:42 Dose: 5 mg Vitals/I&O/Wt Last Vital Signs Temp 97.7 F 04/24/24 06:00 Pulse 70 04/24/24 06:00 Resp 16 04/24/24 06:00 BP 136/79 04/24/24 06:00 Pulse Ox 99 04/24/24 06:00 O2 Del Method Room Air 04/23/24 21:09 04/23/24 04/24/24 04/24/24 22:59 06:59 14:59 Intake Total 200 / 1097.50 Output Total 50 / 100 Balance 150 / 997.50 Weight last 48 hrs Weight 44.906 kg Weight 44.906 kg Weight 45.405 kg Weight 43.6 kg Weight 45.904 kg Physical Exam 2 Narrative: Comfortable sitting up no apparent distress. Vital signs noted. HEENT normocephalic atraumatic Neck is supple no JVP no carotid bruits. Lungs are clear to auscultation. Heart is regular no rubs or gallops. Abdomen soft positive bowel sounds. Remedies no edema. Right upper extremity AV fistula with good thrill and bruit. Neuro awake alert oriented x 3 Data 04/23/24 06:09 04/23/24 04:14 A&P Assessment and plan (1) ESRD on hemodialysis: Plan 1. End-stage renal disease: On MWF schedule 2. Hyperkalemia: Low K diet and HD Thursday and Thursday 3. Anemia: Hemoglobin 11.2, monitor RUBA with HD, may be able to lower his dose 4. Failed renal transplant, on tacrolimus 1 mg twice a day and prednisone 20 Mg daily. Would consider decreasing steroids if okay with his housecleaner given his suicidal intentions. Can continue tacrolimus and monitor levels. 5. Depression with suicidal intent, management per primary team 6. Hypoglycemia, Patient evaluated using audiovisual cart. Nurse examined the patient with hospice. Attestations 2 Medical Necessity Statement*: Per medicine and psychiatry. Time Spent in Patient Care: 16 - 35 minutes (>than 50% of time sp ent in counselling and/or direct pt care on unit) . Coding Level of Care Code Acute Code for Chg Fwd Diagnoses ESRD on hemodialysis N18.6; Z99.2
[2024-04-24 11:27] LABS: Albumin Level 4.6 g/dL (3.5-5.2); Alkaline Phosphatase 73 U/L (40-130); Blood Urea Nitrogen 41 mg/dL (6-20); Calcium 9.8 mg/dL (8.5-10.5); Carbon Dioxide 32 mmol/L (22-29); Chloride 92 mmol/L (98-107); Creatinine Clr Calc Pharmacy 8.3876; Globulin 2.4 g/dL (1.3-4.6); Glomerular Filtration Rate 7.6 mL/min (90-130); Glucose 74 mg/dL (65-115); Magnesium 2.7 mg/dL (1.7-2.3); Osmolality Calculated 297 mOsm/kg (285-295); Phosphorus 4.8 mg/dL (2.5-4.5); Sodium 139 mmol/L (136-145); Total Bilirubin 0.3 mg/dL (0.15-1.2)
[2024-04-24 11:45] LABS: Alanine Aminotransferase 18 U/L (0-41); Anion Gap 19.9 (5-19); Aspartate Amino Transferase 35 U/L (0-40); Potassium 4.9 mmol/L (3.5-5.1)
--- NOTE | 2024-04-24 12:01 | PC.NURSE ---
DR. GARCIA AND DR AGGARWAL NOTIFIED OF PATIENTS CREATININE LEVEL OF 8.7 PER PROTOCOL OF CRITICAL LAB VALUE CALLED BY LAB. PT ALERT AND ORIENTATED SPEAKING WITH DR. AGGARWAL VITAL SIGNS WITH IN NORMAL LIMITS. PT TO HAVE DIALYSIS TOMORROW IN THE AM. NO NEW ORDERS RECEIVED AT THIS TIME.
--- NOTE | 2024-04-24 13:49 | P.NPUPN_ITS ---
Subjective NPU 2 Subjective: 23-year-old male with a past history of methamphetamine abuse along with chronic kidney disease admitted with depression and anxiety. The patient had described having used a liquid form of THC and excessive amounts on the day prior to his dialysis. He had reported that he had been increasingly confused and agitated and acknowledges that he had refused lithium and had reported that he was different to the extent that the patient had reported that he wished to stop using marijuana as it appears to have affected him negatively. He had reported that he had been on an unspecified dose of Abilify to target mood instability. He had reported that his psychiatrist had been concerned about possible manic symptoms and had attempted to reduce the Celexa from 40 mg to 20 mg. Patient did not endorse any clear symptoms suggestive of nain but did report having problems with managing chronic worry. He had endorsed some chronic feelings of abandonment and reported having a difficult upbringing. He reports desire to get back on kidney transplant list. He had reported improved sleep with the Ambien last night. He had reported having chronic problems with managing worry. Mental Status Exam 2 MSE Comments: This is a short diminutive white male with adequate grooming and fair eye contact. There is no evidence of any abnormal involuntary motor movements, tics or tremors appreciated. There was evidence of moderate psychomotor retardation. He was cooperative on interview and appeared in moderate distress. There was some tattoos on his exposed skin. His speech was normal in regards to rate,rhythm, and prosody. His mood was described as depressed. His affect was restricted in range and mood congruent. His thought process was linear, logical and goal-directed. His thought content showed no evidence of homicidal ideation. He denied suicidal ideation but acknowledged the intent of his medication overdose. There was no clear evidence of delusional thinking. He did not appear to be responding to internal stimuli. He denied any auditory visual hallucinations. His attention span appeared adequate. His concentration appeared fair. His recent and remote memory was grossly intact. He was alert and oriented to person place time and situation. His insight is poor. His judgment is poor. His impulse control appeared impaired. Vitals/I&O/Wt Last Vital Signs Temp 97.7 F 04/24/24 06:00 Pulse 70 04/24/24 06:00 Resp 16 04/24/24 06:00 BP 136/79 04/24/24 06:00 Pulse Ox 99 04/24/24 06:00 O2 Del Method Room Air 04/23/24 21:09 04/23/24 04/24/24 04/24/24 22:59 06:59 14:59 Intake Total 200 / 1097.50 240 / 240 Output Total 50 / 100 Balance 150 / 997.50 240 / 240 Weight last 48 hrs Weight 44.906 kg Weight 44.906 kg Weight 45.405 kg Weight 43.6 kg Weight 45.904 kg Data NPU 04/23/24 06:09 04/24/24 10:44 A&P Assessment and plan (1) ESRD on hemodialysis: (2) Major depress, sev w/ psych: (3) Cannabis use disorder: (4) History of methamphetamine use: (5) PTSD (post-traumatic stress disorder): (6) Hypertension: (7) CKD (chronic kidney disease) stage V requiring chronic dialysis: (8) CKD (chronic kidney disease): (9) Renal transplant failure and rejection: Plan This is a 23-year-old, white male, with a long history of trauma, post-traumatic stress disorder, addiction, and multiple stressors , who presents after overdose on hydralazine with suicidal intent and endorsing depression. RECOMMENDATION AND PLAN: 1. Continue current medication including restarting Celexa as prescribed. Will restart abilify to target depression and mood instability. Continue ambien 5mg at night. 2. Encourage individual, group, and milieu therapy. 3. Continue q-15 minute checks for safety. 4. Encourage sober living treatment after discharge at the highest level care to which he is willing to commit. Involuntary Hold Information 2 96 Hour Hold: 96 Hour Involuntary Admission: Yes 96 Hour Hold Ending Date: 04/28/24 96 Hour Hold Ending Time: 15:00 Attestations NPU 2 Medical Necessity Statement*: Inpatient hospitalization is medically necessary and the clinically appropriate intervention, at this time. We will monitor medications and make changes as indicated.His likely length of stay is 5-7 days. Coding Level of Care Code Acute Code for g Fwd Diagnoses ESRD on hemodialysis N18.6; Z99.2 Major depress, sev w/ psych F32.3 Cannabis use disorder F12.90 History of methamphetamine use F15.91 PTSD (post-traumatic stress disorder) F43.10 Hypertension I10 CKD (chronic kidney disease) stage V requiring chronic dialysis N18.6; Z99.2 CKD (chronic kidney disease) N18.9 Renal transplant failure and rejection T86.12; T86.11
[2024-04-24 14:00] VITALS: BP 140/89; PULSE 84; RESP 15; TEMP 36.7; O2SAT 98
[2024-04-24] MEDS: citalopram 20 mg Tablet PO (14:15)
[2024-04-24] MEDS: ARIPiprazole 10 mg Tablet 5 MG PO (14:15)
[2024-04-24] MEDS: calcium carbonate 500 mg Chew Tablet PO (16:55)
[2024-04-24 20:51] VITALS: BP 129/73; PULSE 75; RESP 16; TEMP 36.8; O2SAT 98
[2024-04-24] MEDS: zolpidem 5 mg Tablet PO (21:17)
[2024-04-25 06:00] VITALS: BP 152/94; PULSE 76; RESP 16; TEMP 36.8; O2SAT 97
--- NOTE | 2024-04-25 08:23 | PM.PN ---
Subjective Subjective: The patient was seen and examined. Denies any complaints denies suicidal ideation. No nausea vomiting shortness of breath chest pain headaches itching cramps or diarrhea. Still urinates. Medications: Reviewed: Yes Medication Review Details: Current Medications Acetaminophen (Acetaminophen 325 Mg Tablet) 650 mg PO Q6H PRN PRN Reason: Mild/Mod Pain Or Temp >/= 101 Last Admin: 04/23/24 07:46 Dose: 650 mg Acetaminophen (Acetaminophen 325 Mg Tablet) 650 mg PO Q4H PRN PRN Reason: MILD PAIN Aripiprazole (Aripiprazole 10 Mg Tablet) 5 mg PO DAILY [facility] Last Admin: 04/24/24 14:15 Dose: 5 mg Benztropine Mesylate (Benztropine 1 Mg Tablet) 1 mg PO BID PRN PRN Reason: Mild Extrapyramidal symptoms Calcium Carbonate (Calcium Carbonate 500 Mg Chew Tablet) 500 mg PO Q4H PRN PRN Reason: INDIGESTION Last Admin: 04/24/24 16:55 Dose: 500 mg Camphor/Menthol/Phenol (Blistex Lip Oint 7 Gm Tube) 1 applic TOPICAL Q1H PRN PRN Reason: DRYNESS Citalopram Hydrobromide (Citalopram 20 Mg Tablet) 20 mg PO DAILY [facility] Diphenhydramine HCl (Diphenhydramine 50 Mg/Ml Sdv 1ml) 50 mg IM ONCE PRN PRN Reason: Severe Extrapyramidal Symptoms Diphenhydramine HCl (Diphenhydramine 50 Mg/Ml Sdv 1ml) 50 mg IM Q4H PRN PRN Reason: Severe Aggression Glucagon (Glucagon 1 Mg/Ml Kit 1 Ml) 1 mg IM ONCE PRN; Protocol PRN Reason: Adult Acute Hypoglycemia Nursing Prot. Haloperidol (Haloperidol 5 Mg Tablet) 5 mg PO Q4H PRN PRN Reason: AGITATION Haloperidol Lactate (Haloperidol Inj 5 Mg/Ml Inj 1 Ml) 5 mg IM Q4H PRN PRN Reason: Severe Aggression Hydroxyzine Pamoate (Hydroxyzine 25 Mg Capsule) 50 mg PO Q6H PRN PRN Reason: ANXIETY Dextrose (D5w) 500 mls @ 0 mls/hr IV ONCE PRN; Protocol PRN Reason: Adult Acute Hypoglycemia Prot Dextrose (D10w) 125 mls @ 750 mls/hr IV PRN PRN; Protocol PRN Reason: Adult Acute Hypoglycemia Nursing Protocol Dextrose (D10w) 250 mls @ 1,000 mls/hr IV PRN PRN; Protocol PRN Reason: Adult Acute Hypoglycemia Nursing Protocol Sodium Chloride (Sodium Chloride 0.9%) 1,000 mls @ 0 mls/hr IV .Q0M PRN PRN Reason: hypotension or symptomatic Albumin Human (Albumin) 12.5 gm in 50 mls @ 60 mls/hr IV PRN PRN PRN Reason: Hypotension and/or symptomatic Loperamide HCl (Loperamide 2 Mg Capsule) 2 mg PO Q6H PRN PRN Reason: DIARRHEA Lorazepam (Lorazepam 2 Mg/Ml Inj 1 Ml) 2 mg IM Q4H PRN PRN Reason: Severe Aggression Nicotine (Nicotine 21 Mg Patch) 1 patch TRANSDERMA DAILY PRN PRN Reason: NICOTINE WITHDRAWAL Nicotine Polacrilex (Nicotine 2 Mg Gum) 2 mg BUCCAL Q2H PRN PRN Reason: NICOTINE WITHDRAWAL Non-Formulary Medication (Vit B,I-Hi-Jmhz-Selen-Vit D3-E [Renaplex-D]) 0 tab PO DAILY [facility] Last Admin: 04/24/24 08:51 Dose: 1 tab Non-Formulary Medication Tacrolimus 1 Mg Capsule 0 each PO Q12H [facility] Last Admin: 04/24/24 18:24 Dose: 1 each Olanzapine (Olanzapine 5 Mg Odt) 5 mg PO Q4H PRN PRN Reason: Agitation/Psychosis Last Admin: 04/23/24 21:07 Dose: 5 mg Ondansetron HCl (Ondansetron 2 Mg/Ml Sdv 2 Ml) 4 mg IVP Q8H PRN PRN Reason: vomiting, or N/V if npo Last Admin: 04/23/24 07:46 Dose: 4 mg Ondansetron HCl (Ondansetron 4 Mg Tablet) 4 mg PO Q6H PRN PRN Reason: NAUSEA AND VOMITING Prednisone (Prednisone 20 Mg Tablet) 20 mg PO DAILY [facility] Last Admin: 04/24/24 08:51 Dose: 20 mg Sevelamer Carbonate (Sevelamer 800 Mg Tablet) 1,600 mg PO TIDWM [facility] Last Admin: 04/24/24 17:40 Dose: 1,600 mg Trazodone HCl (Trazodone 50 Mg Tablet) 50 mg PO BEDTIME PRN PRN Reason: SLEEP Zolpidem Tartrate (Zolpidem 5 Mg Tablet) 5 mg PO BEDTIME [facility] Last Admin: 04/24/24 21:17 Dose: 5 mg Vitals/I&O/Wt Last Vital Signs Temp 98.3 F 04/25/24 06:00 Pulse 76 04/25/24 06:00 Resp 16 04/25/24 06:00 BP 152/94 04/25/24 06:00 Pulse Ox 97 04/25/24 06:00 O2 Del Method Room Air 04/23/24 21:09 Weight last 48 hrs Weight 47.809 kg Weight 44.906 kg Weight 44.906 kg Physical Exam Narrative: Comfortable sitting up no apparent distress. Vital signs noted. HEENT normocephalic atraumatic Neck is supple no JVP no carotid bruits. Lungs are clear to auscultation. Heart is regular no rubs or gallops. Abdomen soft positive bowel sounds. Remedies no edema. Right upper extremity AV fistula with good thrill and bruit. Neuro awake alert oriented x 3 Data 04/23/24 06:09 04/24/24 10:44 A&P Assessment and plan (1) ESRD on hemodialysis: Plan 1. End-stage renal disease: On MWF schedule - hd today 2. Hyperkalemia: Low K diet and HD Thursday and Thursday 3. Anemia: Hemoglobin 11.4, lower RUBA dose with HD 4. Failed renal transplant, on tacrolimus 1 mg twice a day and prednisone 20 Mg daily. The patient is back on dialysis. The patient had suicidal ideations. Will decrease his steroid dose. 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 Can continue tacrolimus and monitor levels. 5. Depression with suicidal intent, management per primary team 6. Hypoglycemia-monitor sugar. Patient evaluated using audiovisual cart and the Nurse. Attestations Medical Necessity Statement*: As per medicine and psychiatry. Continue dialysis Thursday and Thursday. Time Spent in Patient Care: 16 - 35 minutes (>than 50% of time spent in counselling and/or direct pt care on unit). Coding Level of Care Code Acute Code for Chg Fwd Diagnoses ESRD on hemodialysis N18.6; Z99.2
--- NOTE | 2024-04-25 11:39 | PC.NURSE ---
[id number] pt off unit for dialysis. accompanied by CSU staff and security.
[2024-04-25 11:50] VITALS: BP 169/114; PULSE 68; RESP 16; TEMP 36.9
--- NOTE | 2024-04-25 11:53 | PC.HD ---
Patient requesting Benadryl during dialysis, as he receives it in clinic and it helps his anxiety. Primary RN notified of request.
[2024-04-25] MEDS: hyDRALAzine 50 mg Tablet 100 MG PO ×3 (12:56→20:22)
[2024-04-25 14:00] VITALS: BP 148/102; PULSE 101; RESP 16; TEMP 36.8; O2SAT 97
--- NOTE | 2024-04-25 14:30 | P.PN_ITS ---
Subjective 2 Subjective: This is progress note from 04/24/2024 -Patient was seen this morning, alert aw ramrio, following all commands, no complaints no nausea, no vomiting no abdominal pain, Vitals/I&O/Wt Last Vital Signs Temp 98.4 F 04/25/24 11:50 Pulse 68 04/25/24 11:50 Resp 16 04/25/24 11:50 BP 169/114 04/25/24 11:50 Pulse Ox 97 04/25/24 06:00 O2 Del Method Room Air 04/23/24 21:09 Weight last 48 hrs Weight 47.809 kg Weight 44.906 kg Weight 44.906 kg Physical Exam 2 Const: COMMON NORMALS: no acute distress and patient oriented x3 Resp: COMMON NORMALS: normal respiratory effort, No retractions, No use of accessory muscles and clear to auscultation bilaterally AUSCULTATION: clear to auscultation bilaterally Cardio: COMMON NORMALS: regular rate, regular rhythm, S1 normal heart sound present and S2 normal heart sound present RATE: regular rate RHYTHM: r egular rhythm HEART SOUNDS: S1 normal heart sound present and S2 normal heart sound present GI: COMMON NORMALS: Normal to inspection, nondistended, normoactive bowel sounds present and non-tender Extremity: COMMON NORMALS: no pedal edema Neuro: COMMON NORMALS: patient oriented x3 Psych: COMMON NORMALS: mental status grossly normal Data 04/23/24 06:09 04/24/24 10:44 A&P Assessment and plan (1) Acute encephalopathy: (2) Agitation: (3) Suicide attempt: (4) Overdose of hydralazine: (5) Hyperkalemia: (6) Missed dialysis: (7) Hypoglycemia: Plan Acute encephalopathy, resolved ? Can follow most commands easily becomes agitated at times does appear confused ? Could be from hypoglycemia -It could be from hydralazine overdose ? Neurochecks ? Aspiration precautions, -nih stroke scale ? Suicide precautions Agitation, resolved ? Ativan as needed Hyperkalemia, resolved -?has received insulin, D50 ? EKG no acute ST-T wave changes ? calcium gluconate ? Status post dialysis Missed dialysis Will receive dialysis tomorrow, Thursday Hypoglycemia, resolved ? Status post D50, orange juice ? D10 at 75 cc an hour -Accu-Cheks q. hourly ? Will wean off D10 continue monitoring blood sugars Suicide attempt ? Currently in neuropsychiatric unit Overdose of hydralazine, resolved ? Monitor EKGs every 4 hours ? Monitor for hypotension, dizziness, nausea ? Nausea control End-stage renal disease, status post renal transplant, continue home prednisone, tacrolimus Full code Plan for today, monitor neuropsychiatric unit, plans on dialysis tomorrow Attestations 2 Medical Necessity Statement*: Patient requires hospitalization for suicide attempt Diagnoses Acute encephalopathy G93.40 Agitation R45.1 Suicide attempt T14.91XA Overdose of hydralazine T46.5X1A Hyperkalemia E87.5 Missed dialysis Hypoglycemia E16.2
--- NOTE | 2024-04-25 14:51 | P.NPUPN_ITS ---
Subjective NPU 2 Subjective: 23-year-old male with a past history of methamphetamine abuse along with chronic kidney disease admitted with depression and anxiety. Patient completed dialysis today. He had reported that he was feeling better. Patient had a rise in blood pressure today and was restarted on his antihypertensives. He had reported feeling less hopeless and more motivated to discontinue using marijuana. He had continued to report some isolation. He had denied having any suicidal thoughts currently. He was pleasant and cooperative on the milieu and was able to attend groups without difficulty. He had reported improved sleep on Ambien at 5 mg at night. He denied feeling confused. He had attributed his confusion initially and suicidal ideation to a large dose of a powerful form of marijuana in a liquid form. . Mental Status Exam 2 MSE Comments: This is a short diminutive white male with adequate grooming and fair eye contact. There is no evidence of any abnormal involuntary motor movements, tics or tremors appreciated. There was evidence of mild psychomotor retardation. He was cooperative on interview and appeared in mild distress. There was some tattoos on his exposed skin. His speech was normal in regards to rate,rhythm, and prosody. His mood was described as a bit better. His affect was less restricted in range. His thought process was linear, logical and goal-directed. His thought content showed no evidence of homicidal ideation. He denied suicidal ideation currently. There was no clear evidence of delusional thinking. He did not appear to be responding to internal stimuli. He denied any auditory visual hallucinations. His attention span appeared adequate. His concentration appeared fair. His recent and remote memory was grossly intact. He was alert and oriented to person place time and situation. His insight is improving. His judgment is improving. His impulse control appeared better. Vitals/I&O/Wt Last Vital Signs Temp 98.4 F 04/25/24 11:50 Pulse 68 04/25/24 11:50 Resp 16 04/25/24 11:50 BP 169/114 04/25/24 11:50 Pulse Ox 97 04/25/24 06:00 O2 Del Method Room Air 04/23/24 21:09 Weight last 48 hrs Weight 47.809 kg Weight 44.906 kg Weight 44.906 kg Data NPU 04/23/24 06:09 04/24/24 10:44 A&P Assessment and plan (1) Acute encephalopathy: (2) Agitation: (3) Suicide attempt: (4) Overdose of hydralazine: (5) Hyperkalemia: (6) Missed dialysis: (7) Hypoglycemia: (8) ESRD on hemodialysis: (9) Major depress, sev w/ psych: (10) Cannabis use disorder: (11) History of methamphetamine use: (12) PTSD (post-traumatic stress disorder): (13) Hypertension: (14) CKD (chronic kidney disease) stage V requiring chronic dialysis: (15) CKD (chronic kidney disease): (16) Renal transplant failure and rejection: Plan This is a 23-year-old, white male, with a long history of trauma, post-traumatic stress disorder, addiction, and multiple stressors , who presents after overdose on hydralazine with suicidal intent and endorsing depression. RECOMMENDATION AND PLAN: 1. Increase Celexa to 30mg at night, abilify 10mg at night, Continue ambien 5mg at night for insomnia. 2. Encourage individual, group, and milieu therapy. 3. Continue q-15 minute checks for safety. 4. Encourage sober living treatment after discharge at the highest level care to which he is willing to commit. Involuntary Hold Information 2 96 Hour Hold: 96 Hour Involuntary Admission: Yes 96 Hour Hold Ending Date: 04/28/24 96 Hour Hold Ending Time: 15:00 Attestations NPU 2 Medical Necessity Statement*: Inpatient hospitalization is medically necessary and the clinically appropriate intervention, at this time. We will monitor medications and make changes as indicated.His likely length of stay is 3-5 days. Coding Level of Care Code Acute Code for [facility] Diagnoses Acute encephalopathy G93.40 Agitation R45.1 Suicide attempt T14.91XA Overdose of hydralazine T46.5X1A Hyperkalemia E87.5 Missed dialysis Hypoglycemia E16.2 ESRD on hemodialysis N18.6; Z99.2 Major depress, sev w/ psych F32.3 Cannabis use disorder F12.90 History of methamphetamine use F15.91 PTSD (post-traumatic stress disorder) F43.10 Hypertension I10 CKD (chronic kidney disease) stage V requiring chronic dialysis N18.6; Z99.2 CKD (chronic kidney disease) N18.9 Renal transplant failure and rejection T86.12; T86.11
--- NOTE | 2024-04-25 15:28 | PC.NURSE ---
@[id number] recieved critical lab results BUN 3, PHOSPHURUS 0.4, POTASSIUM 2.3 BY SEWING INSPECTOR CRISTINA MENDOZA. NOTIFED DR. GARCIA OF PT LAB VALUES. DR. ZHU STAT LAB REDRAW ON PT.
[2024-04-25 15:37] VITALS: BP 128/92; PULSE 75; RESP 16; TEMP 36.9
[2024-04-25] MEDS: ARIPiprazole 10 mg Tablet 5 MG PO ×2 (15:54→18:18)
[2024-04-25] MEDS: predniSONE 20 mg Tablet 10 MG PO (15:56)
[2024-04-25] MEDS: citalopram 20 mg Tablet PO (15:56)
[2024-04-25] MEDS: NON-FORMULARY MEDICATION (Vit B,C-Fa-Zinc-Selen-Vit D3-E [Renaplex-D] 800 mcg-12.5 mg -2,0 PO (16:00)
[2024-04-25] MEDS: sevelamer 800 mg Tablet 1600 MG PO (16:02)
[2024-04-25] MEDS: TACROLIMUS 1 MG PO (18:13)
[2024-04-25] MEDS: labetalol 200 mg Tablet PO (18:15)
[2024-04-25] MEDS: citalopram 20 mg Tablet 10 MG PO (18:19)
[2024-04-25 18:51] VITALS: BP 121/71
[2024-04-25 19:10] LABS: Basophils # 0.1 10^3/uL (0.0-0.1); Basophils % 0.9 %; Eosinophils # 0.1 10^3/uL (0.0-0.8); Eosinophils % 2.2 %; Hematocrit 29.5 % (37-53); Lymphocytes # 0.4 10^3/uL (0.8-4.8); Lymphocytes % 6.9 %; Mean Corpuscular HGB Conc 33.9 g/dL (30-55); Mean Corpuscular Hemoglobin 32.1 pg (27-33); Mean Corpuscular Volume 94.6 fl (82-101); Mean Platelet Volume 10.8 fL (7.4-10.4); Monocytes # 0.5 10^3/uL (0.2-0.9); Monocytes % 9.3 %; Neutrophils # 4.33 10^3/uL (1.8-7.7); Neutrophils % 80.3 %; Nucleated Red Blood Cells % 0 %; Platelet Count 161 10^3/cmm (157-399); Red Blood Count 3.12 10^6/uL (3.85-5.65); Red Cell Distribution Width 14.4 % (12.1-15.1); White Blood Count 5.39 10^3/uL (3.29-11.43)
[2024-04-25 19:25] LABS: Blood Urea Nitrogen 21 mg/dL (6-20); Calcium 9.6 mg/dL (8.5-10.5); Carbon Dioxide 30 mmol/L (22-29); Chloride 101 mmol/L (98-107); Creatinine Clr Calc Pharmacy 17.1786; Glomerular Filtration Rate 17.7 mL/min (90-130); Glucose 108 mg/dL (65-115); Magnesium 2.5 mg/dL (1.7-2.3); Osmolality Calculated 300 mOsm/kg (285-295); Phosphorus 1.9 mg/dL (2.5-4.5); Sodium 143 mmol/L (136-145)
[2024-04-25 19:29] LABS: Anion Gap 16.9 (5-19); Potassium 4.9 mmol/L (3.5-5.1)
[2024-04-25 19:50] LABS: Slide Review Slide Review Perform
[2024-04-25] MEDS: zolpidem 5 mg Tablet PO (20:22)
[2024-04-25 22:00] VITALS: BP 109/65; PULSE 90; RESP 17; TEMP 36.8; O2SAT 97
[2024-04-25] MEDS: trazodone 50 mg Tablet PO (23:20)
[2024-04-26 06:00] VITALS: BP 125/79; PULSE 73; RESP 16; TEMP 36.6; O2SAT 96
[2024-04-26 08:00] VITALS: BP 125/79; PULSE 73; RESP 16; TEMP 36.6
[2024-04-26] MEDS: sevelamer 800 mg Tablet 1600 MG PO ×2 (08:11→12:05)
[2024-04-26] MEDS: NON-FORMULARY MEDICATION (Vit B,C-Fa-Zinc-Selen-Vit D3-E [Renaplex-D] 800 mcg-12.5 mg -2,0 PO (08:42)
[2024-04-26] MEDS: citalopram 20 mg Tablet 30 MG PO (08:43)
[2024-04-26] MEDS: TACROLIMUS 1 MG PO (08:44)
[2024-04-26] MEDS: predniSONE 20 mg Tablet 10 MG PO (08:44)
[2024-04-26] MEDS: ARIPiprazole 10 mg Tablet PO (08:44)
[2024-04-26] MEDS: hyDRALAzine 50 mg Tablet 100 MG PO (08:44)
[2024-04-26] MEDS: labetalol 200 mg Tablet PO (08:44)
--- NOTE | 2024-04-26 09:37 | P.PN_ITS ---
Subjective 2 Subjective: The patient was seen and examined. The patient denies suicidal ideation. The patient states he is feeling better and handled dialysis well yesterday. He is sleeping well with Ambien. He denies nausea vomiting fevers chills itching or cramps or diarrhea. Medications: Reviewed: Yes Medication Review Details: Current Medications Acetaminophen (Acetaminophen 325 Mg Tablet) 650 mg PO Q6H PRN PRN Reason: Mild/Mod Pain Or Temp >/= 101 Last Admin: 04/23/24 07:46 Dose: 650 mg Acetaminophen (Acetaminophen 325 Mg Tablet) 650 mg PO Q4H PRN PRN Reason: MILD PAIN Amlodipine Besylate (Amlodipine 5 Mg Tablet) 5 mg PO DAILY [facility] Aripiprazole (Aripiprazole 10 Mg Tablet) 10 mg PO DAILY [facility] Last Admin: 04/26/24 08:44 Dose: 10 mg Benztropine Mesylate (Benztropine 1 Mg Tablet) 1 mg PO BID PRN PRN Reason: Mild Extrapyramidal symptoms Calcium Carbonate (Calcium Carbonate 500 Mg Chew Tablet) 500 mg PO Q4H PRN PRN Reason: INDIGESTION Last Admin: 04/24/24 16:55 Dose: 500 mg Camphor/Menthol/Phenol (Blistex Lip Oint 7 Gm Tube) 1 applic TOPICAL Q1H PRN PRN Reason: DRYNESS Citalopram Hydrobromide (Citalopram 20 Mg Tablet) 30 mg PO DAILY [facility] Last Admin: 04/26/24 08:43 Dose: 30 mg Diphenhydramine HCl (Diphenhydramine 50 Mg/Ml Sdv 1ml) 50 mg IM ONCE PRN PRN Reason: Severe Extrapyramidal Symptoms Diphenhydramine HCl (Diphenhydramine 50 Mg/Ml Sdv 1ml) 50 mg IM Q4H PRN PRN Reason: Severe Aggression Glucagon (Glucagon 1 Mg/Ml Kit 1 Ml) 1 mg IM ONCE PRN; Protocol PRN Reason: Adult Acute Hypoglycemia Nursing Prot. Haloperidol (Haloperidol 5 Mg Tablet) 5 mg PO Q4H PRN PRN Reason: AGITATION Haloperidol Lactate (Haloperidol Inj 5 Mg/Ml Inj 1 Ml) 5 mg IM Q4H PRN PRN Reason: Severe Aggression Hydralazine HCl (Hydralazine 50 Mg Tablet) 100 mg PO TID [facility] Last Admin: 04/26/24 08:44 Dose: 100 mg Hydroxyzine Pamoate (Hydroxyzine 25 Mg Capsule) 50 mg PO Q6H PRN PRN Reason: ANXIETY Dextrose (D5w) 500 mls @ 0 mls/hr IV ONCE PRN; Protocol PRN Reason: Adult Acute Hypoglycemia Prot Dextrose (D10w) 125 mls @ 750 mls/hr IV PRN PRN; Protocol PRN Reason: Adult Acute Hypoglycemia Nursing Protocol Dextrose (D10w) 250 mls @ 1,000 mls/hr IV PRN PRN; Protocol PRN Reason: Adult Acute Hypoglycemia Nursing Protocol Sodium Chloride (Sodium Chloride 0.9%) 1,000 mls @ 0 mls/hr IV .Q0M PRN PRN Reason: hypotension or symptomatic Albumin Human (Albumin) 12.5 gm in 50 mls @ 60 mls/hr IV PRN PRN PRN Reason: Hypotension and/or symptomatic Labetalol HCl (Labetalol 200 Mg Tablet) 200 mg PO BID [facility] Last Admin: 04/26/24 08:44 Dose: 200 mg Loperamide HCl (Loperamide 2 Mg Capsule) 2 mg PO Q6H PRN PRN Reason: DIARRHEA Lorazepam (Lorazepam 2 Mg/Ml Inj 1 Ml) 2 mg IM Q4H PRN PRN Reason: Severe Aggression Nicotine (Nicotine 21 Mg Patch) 1 patch TRANSDERMA DAILY PRN PRN Reason: NICOTINE WITHDRAWAL Nicotine Polacrilex (Nicotine 2 Mg Gum) 2 mg BUCCAL Q2H PRN PRN Reason: NICOTINE WITHDRAWAL Non-Formulary Medication (Vit B,A-Gp-[id number]-Selen-Vit D3-E [Renaplex-D]) 0 tab PO DAILY [facility] Last Admin: 04/26/24 08:42 Dose: 1 tab Non-Formulary Medication Tacrolimus 1 Mg Capsule 0 each PO Q12H OMAR Last Admin: 04/26/24 08:44 Dose: 1 each Olanzapine (Olanzapine 5 Mg Odt) 5 mg PO Q4H PRN PRN Reason: Agitation/Psychosis Last Admin: 04/23/24 21:07 Dose: 5 mg Ondansetron HCl (Ondansetron 2 Mg/Ml Sdv 2 Ml) 4 mg IVP Q8H PRN PRN Reason: vomiting, or N/V if npo Last Admin: 04/23/24 07:46 Dose: 4 mg Ondansetron HCl (Ondansetron 4 Mg Tablet) 4 mg PO Q6H PRN PRN Reason: NAUSEA AND VOMITING Prednisone (Prednisone 20 Mg Tablet) 10 mg PO DAILY [facility] Last Admin: 04/26/24 08:44 Dose: 10 mg Sevelamer Carbonate (Sevelamer 800 Mg Tablet) 1,600 mg PO TIDWM [facility] Last Admin: 04/26/24 08:11 Dose: 1,600 mg Trazodone HCl (Trazodone 50 Mg Tablet) 50 mg PO BEDTIME PRN PRN Reason: SLEEP Last Admin: 04/25/24 23:20 Dose: 50 mg Zolpidem Tartrate (Zolpidem 5 Mg Tablet) 5 mg PO BEDTIME [facility] Last Admin: 04/25/24 20:22 Dose: 5 mg Vitals/I&O/Wt Last Vital Signs Temp 97.9 F 04/26/24 06:00 Pulse 73 04/26/24 06:00 Resp 16 04/26/24 06:00 BP 125/79 04/26/24 06:00 Pulse Ox 96 04/26/24 06:00 O2 Del Method Room Air 04/26/24 06:00 04/25/24 04/26/24 04/26/24 22:59 06:59 14:59 Intake Total 300 / 300 Output Total 2300 / 2300 Balance -1999 / -1999 Weight last 48 hrs Weight 45.359 kg Weight 44.4 kg Weight 47.809 kg Physical Exam 2 Narrative: Comfortable sitting up no apparent distress. Vital signs noted. HEENT normocephalic atraumatic Neck is supple no JVP no carotid bruits. Lungs are clear to auscultation. Heart is regular no rubs or gallops. Abdomen soft positive bowel sounds. extremedies no edema. Right upper extremity AV fistula with good thrill and bruit. Neuro awake alert oriented x 3 Data 04/25/24 19:00 04/25/24 19:00 A&P Assessment and plan (1) ESRD on hemodialysis: See below Plan 1. End-stage renal disease: On MWF schedule - hd tomorrow 2. Hypertension- lower medications 3. Anemia: Hemoglobin 10 - RUBA dose with HD 4. Failed renal transplant, on tacrolimus 1 mg twice a day and prednisone 20 Mg daily. The patient is back on dialysis. The patient had suicidal ideations. I decrease his steroid dose. Please ensure that his outpatient flight operations specialist knows this. Can continue tacrolimus and monitor levels. 5. Depression with suicidal intent, management per primary team -agree w/ not using drugs 6. monitor sugar. Patient evaluated using audiovisual cart and the Nurse. Attestations 2 Medical Necessity Statement*: per psychiatry Time Spent in Patient Care: Greater than 35 minutes (>than 50% of time spent in counselling and/or direct pt care on unit) . Coding Level of Care Code Acute Code for [facility] Diagnoses ESRD on hemodialysis N18.6; Z99.2
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
[2024-04-26 12:58] VITALS: BP 125/79; PULSE 73; RESP 16; TEMP 36.6
--- NOTE | 2024-04-26 13:23 | DCPLANNER ---
IMM was given to pt and rights explained and copy was placed in pts file.
[2024-04-26 14:00] VITALS: BP 150/86; PULSE 76; RESP 16; TEMP 36.6; O2SAT 98
[2024-04-26] MEDS: hyDRALAzine 50 mg Tablet PO (15:30)
[2024-04-30 11:30] LABS: Amphetamine negative; Barbiturates negative; Benzodiazepines negative; Cocaine Metabolites negative; Delta 9 THC 12 ng/mL; Delta 9 THC Carboxy Acid 240 ng/mL; Marijuana(Tetrahydrocannabino) POSITIVE; Opiates negative; PCP (Phencyclidine) negative
== END 2024-04-26 16:20 | disposition home or self-care (01) | DRG 917 ==
LOC: ER 16:01 → ICU 19:56 → NP 04-23 16:00
PROVIDERS: Hospitalist; Admitting Provider Family Medicine; Emergency Provider Emergency Medicine; Visit Provider Family Medicine
DX: T46.5X2A Poisoning by other antihypertensive drugs, intentional self-harm, initial encounter (principal); N18.6 End stage renal disease; F32.3 Major depressive disorder, single episode, severe with psychotic features; R45.851 Suicidal ideations; G93.40 Encephalopathy, unspecified; T86.11 Kidney transplant rejection; I12.0 Hypertensive chronic kidney disease with stage 5 chronic kidney disease or end stage renal disease; Y99.9 Unspecified external cause status; Z99.2 Dependence on renal dialysis; Z62.810 Personal history of physical and sexual abuse in childhood; R45.1 Restlessness and agitation; F43.10 Post-traumatic stress disorder, unspecified; F17.290 Nicotine dependence, other tobacco product, uncomplicated; F17.220 Nicotine dependence, chewing tobacco, uncomplicated; E87.5 Hyperkalemia; E16.2 Hypoglycemia, unspecified; Z79.899 Other long term (current) drug therapy; D63.1 Anemia in chronic kidney disease; F15.11 Other stimulant abuse, in remission; F12.90 Cannabis use, unspecified, uncomplicated
CPT/HCPCS: 36415; 36416; 80048; 80053; 80061; 80197; 80306; 80307; 81001; 82550; 82962; 83036; 83605; 83735; 83880; 84100; 84145; 84443; 84484; 85025; 85610; 86706; 87340; 90935; 93005; 94664; 96374; 96375; 97150; 97165; 99285; C9113; J0612; J1200; J1644; J1815; J2060; J2405; J7512; J7799

== ENCOUNTER 2024-05-27 13:50 | Emergency (ER) | payer MEDICARE, MEDICAID, SELFPAY ==
[2024-05-27 13:51] VITALS: BP 145/106; PULSE 71; RESP 16; TEMP 36.4; O2SAT 98; BMI 20.7
--- NOTE | 2024-05-27 13:53 | ED_ITS ---
HPI - Nausea/Vomiting/Diarrhea 2 General: Chief complaint: Nausea/Vomiting/Diarrhea Stated complaint: n/v/d Time Seen by Provider: 05/27/24 13:51 Source: patient Mode of arrival: EMS Limitations: no limitations History of Present Illness: Patient is a 23-year-old male who presents to ED today via ambulance for evaluation of nausea, vomiting, diarrhea, abdominal pain that began today. He has not been running fevers. No sick contacts. No obvious poor food exposures. 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 He states he missed his dialysis appointment today secondary to symptoms. He does use marijuana daily. MD elicited complaint: nausea, vomiting, diarrhea and abdominal pain Onset (ago): hour(s) Associated nausea: Yes Associated abdominal pain: Yes Location of pain: Diffuse Radiation: diffuse Pain consistency: constant Severity: severe Quality: cramping Exacerbating factors: none Relieving factors: none Associated symtoms: Reports nausea; Denies chest pain, dizziness, dysuria, fatigue, headache(s) or malaise Review of Systems 2 Const: Denies: fever(s), chills, body aches, fatigue or malaise Card: Denies: chest pain Resp: Denies: dyspnea GI: Reports: abdominal pain, nausea, vomiting, diarrhea and GI cramping; Denies: hematemesis, hematochezia or melena : Denies: flank pain, difficulty urinating, dysuria, urinary frequency, urinary urgency or urinary hesitancy Musc: Denies: neck pain, back pain, extremity pain or joint pain Skin/Breast: Denies: rash Neuro: Denies: headache(s), numbness in extremities, weakness in extremities, sensory changes or dizziness PFSH ED 2 PFSH: Medical History CKD (chronic kidney disease) stage V requiring chronic dialysis Generalized anxiety disorder Other stimulant dependence, in remission Psychiatric care Problems related to lack of adequate sleep Substance abuse Depression Anxiety Social History Smoking and tobacco/nicotine status: current every day tobacco/nicotine user e- cigarettes E-Cigarette Details: vaporizer device and with nicotine E-cig/vape details: 6 mg and smokeless tobacco Smokeless tobacco user: chewing tobacco Smokeless tobacco details: 1 can/3 days. Quit status (tobacco/nicotine): has tried quititng Number of times tried to quit tobacco: 4 Second hand smoke exposure: No Physical Exam 2 Const: COMMON NORMALS: average body habitus, patient oriented x3, no limitations, alert and well nourished ORIENTATION/CONSCIOUSNESS: Yes awake, Yes oriented to person, Yes oriented to place and Yes oriented to time OTHER: mildly ill appearing; strong marijuana odor HENMT: COMMON NORMALS: normocephalic and atraumatic HEAD & SCALP: normal to inspection, normocephalic and atraumatic Eye: GENERAL EYE: appearance normal, both eyes and all related structures Resp: COMMON NORMALS: normal respiratory effort and clear to auscultation bilaterally AUSCULTATION: clear to auscultation bilaterally Cardio: COMMON NORMALS: regular rate and regular rhythm RATE: regular rate RHYTHM: regular rhythm GI: COMMON NORMALS: Normal to inspection, nondistended, normoactive bowel sounds present, Soft to palpation, No hepatosplenomegaly present and no masses INSPECTION: Yes normal to inspection AUSCULTATION: Yes normoactive bowel sounds PALPATION: Yes Soft to palpation, Yes Tenderness to palpation present (GI) (diffuse), No Guarding due to palpation present (GI), No Rigid due to palpation and Yes No hepatosplenomegaly present : COMMON NORMALS: Yes no CVA tenderness BLADDER/KIDNEY EXAM: Yes no CVA tenderness Back/Pelvis: COMMON NORMALS: no CVA tenderness and thoracic and lumbar spine normal to inspection Extremity: GENERAL: Yes normal exam except as noted Neuro: PHUC COMA SCALE: document GCS findings [place] coma scale eye opening: Spontaneous [place] coma scale verbal response: Orientated [place] coma scale motor response: Obey commands [place] coma scale total score: 15 COMMON NORMALS: patient oriented x3 SENSORIUM/ORIENTATION: Yes alert, Yes oriented to person, Yes oriented to place and Yes oriented to time Skin: COMMON NORMALS: no rashes or lesions noted GENERAL SKIN EXAM: no rashes or lesions noted Course 2 Consultations: Consultation #1: Dr. Michael-does not feel patient requires admission and recommend he receives dialysis tomorrow (1/2 session) and then normal (full session) as scheduled on Thursday. Vital Signs: Vital signs: Vital Signs Temperature 97.6 F 05/27/24 13:51 Pulse Rate 74 05/27/24 18:52 Respiratory Rate 16 05/27/24 13:51 Blood Pressure 118/76 05/27/24 18:52 Pulse Oximetry 96 05/27/24 18:52 Oxygen Delivery Me thod Room Air 05/27/24 13:51 MDM - Nausea/Vomiting/Diarrhea Medical Decision Making Patient has not had any further vomiting or diarrhea while here/after Ativan and Haldol. Suspect hyperemesis cannabis syndrome although CT scan showing findings consistent with gastritis. Will go and place on Protonix and Carafate. Patient missed his dialysis session today. I did discuss case/labs with Dr. Michael who does not feel patient needs to be hospitalized at this time. Patient states he was able to contact his dialysis clinic and they are agreeable to do a partial session tomorrow. He will then complete his full session as scheduled on Thursday. Strict return to ED precautions given. Medical Records I reviewed the patient's medical records. Lab Data I reviewed the patient's lab results. 05/27/24 14:28 05/27/24 15:06 Radiology Impressions Abdomen/Pelvis CT 05/27/24 17:03 IMPRESSION: 1. Mild gastric wall thickening suggestive of gastritis. 2. Urinary bladder wall questionably mildly thickened. Correlation for any evidence of cystitis suggested. 3. Expected appearance of the right lower quadrant transplant kidney on noncontrast CT. Other chronic findings above. COMMENTS: Consistent with the [employer]'s Incidental Findings Committee white paper (J Am Addie Radiol 2018): Any incidental renal lesion less than 1 cm or classified as too small to characterize, or any incidental cystic renal lesion characterized as simple-appearing, is likely benign. No follow-up imaging is recommended for these lesions per consensus recommendations based on imaging criteria. Laboratory Results WBC 12.20 10^3/uL (3.29-11.43) H 05/27/24 14:28 RBC 2.86 10^6/uL (3.85-5.65) L 05/27/24 14:28 Hgb 9.50 g/dL (11.27-16.99) L 05/27/24 14:28 Hct 28.9 % (37-53) L 05/27/24 14:28 MCV 101.0 fl (82-101) 05/27/24 14:28 MCH 33.2 pg (27-33) H 05/27/24 14:28 MCHC 32.9 g/dL (30-55) 05/27/24 14:28 RDW 16.9 % (12.1-15.1) H 05/27/24 14:28 Plt Count 163 10^3/cmm (157-399) 05/27/24 14:28 MPV 10.4 fL (7.4-10.4) 05/27/24 14:28 Neut % (Auto) 83.8 % 05/27/24 14:28 Lymph % (Auto) 3.2 % 05/27/24 14:28 [place] % (Auto) 10.8 % 05/27/24 14:28 Eos % (Auto) 1.4 % 05/27/24 14:28 Baso % (Auto) 0.4 % 05/27/24 14: Neut # (Auto) 10.22 10^3/uL (1.8-7.7) H 05/27/24 14:28 Lymph # (Auto) 0.4 10^3/uL (0.8-4.8) L 05/27/24 14:28 [place] # (Auto) 1.3 10^3/uL (0.2-0.9) H 05/27/24 14:28 Eos # (Auto) 0.2 10^3/uL (0.0-0.8) 05/27/24 14:28 Baso # (Auto) 0.1 10^3/uL (0.0-0.1) 05/27/24 14:28 Nucleated RBC % (auto) 0 % 05/27/24 14:28 Nucleated RBCs # 0.0 /100WBC 05/27/24 14:28 Sodium 142 mmol/L (136-145) 05/27/24 15:06 Potassium 5.1 mmol/L (3.5-5.1) 05/27/24 15:06 Chloride 96 mmol/L (98-107) L 05/27/24 15:06 Carbon Dioxide 25 mmol/L (22-29) 05/27/24 15:06 Anion Gap 26.1 (5-19) H 05/27/24 15:06 BUN 64 mg/dL (6-20) H 05/27/24 15:06 Creatinine 8.3 mg/dL (0.7-1.2) H* 05/27/24 15:06 GFR Calculation 8.1 mL/min (90-130) L 05/27/24 15:06 Glucose 72 mg/dL (65-115) 05/27/24 15:06 Calculated Osmolality 311 mOsm/kg (285-295) H 05/27/24 15:06 Calcium 9.3 mg/dL (8.5-10.5) 05/27/24 15:06 Phosphorus 8.6 mg/dL (2.5-4.5) H* 05/27/24 15:06 Magnesium 2.9 mg/dL (1.7-2.3) H 05/27/24 15:06 Total Bilirubin 0.3 mg/dL (0.15-1.2) 05/27/24 15:06 AST 14 U/L (0-40) 05/27/24 15:06 ALT 12 U/L (0-41) 05/27/24 15:06 Alkaline Phosphatase 74 U/L (40-130) 05/27/24 15:06 Total Protein 6.8 g/dL (6.6-8.7) 05/27/24 15:06 Albumin 4.7 g/dL (3.5-5.2) 05/27/24 15:06 Globulin 2.1 g/dL (1.3-4.6) 05/27/24 15:06 Lipase 74 U/L (13-60) H 05/27/24 15:06 All radiology interpretation(s) finalized by discharge Discharge Plan Discharge Patient Disposition: Home Clinical Impression: Renal transplant failure and rejection CKD (chronic kidney disease) Qualifiers: Chronic kidney disease stage: on chronic dialysis Qualified Code(s): N18.6 - End stage renal disease Gastritis Qualifiers: Gastritis type: unspecified gastritis Chronicity: acute Gastritis bleeding: w ithout bleeding Qualified Code(s): K29.00 - Acute gastritis without bleeding Condition: Stable Prescriptions: New Protonix 40 mg tablet,delayed release (DR/EC) 40 mg PO BID 14 Days Qty: 28 0RF Carafate 1 gram tablet 1 g PO TID 14 Days Qty: 42 0RF No Action labetalol 200 mg tablet 200 mg PO BID nitroglycerin 0.4 mg tablet, sublingual 0.4 mg sublingual Q5M Rx Instructions: do not exceed 3 doses per episode trazodone 100 mg tablet 100 mg PO QPM Qty: 30 0RF hydralazine 100 mg tablet 100 mg PO BID doxazosin [Cardura] 4 mg tablet 4 mg PO DAILY RenaPlex-D 800 mcg-12.5 mg -2,000 unit tablet 1 tab PO DAILY sevelamer carbonate 800 mg tablet 1,600 mg PO TIDWM zolpidem 5 mg Tablet 5 mg PO BEDTIME 30 Days Qty: 30 1RF aripiprazole 10 mg Tablet 10 mg PO DAILY 30 Days Qty: 30 1RF amlodipine [Norvasc] 5 mg Tablet 5 mg PO BEDTIME allopurinol 100 mg Tablet 100 mg PO DAILY prednisone 5 mg tablet 5 mg PO DAILY tacrolimus 1 mg capsule 2 mg PO BID aripiprazole 5 mg tablet 5 mg PO DAILY citalopram 20 mg tablet 20 mg PO DAILY Discharge Orders: Discharge ED (Routine); Ordered 05/27/24 Ordered By: Sandra Rojas Activity Restrictions/Additional Instructions: As we discussed I would like you to contact your [facility] dialysis clinic early tomorrow morning so you have an exact time of when to arrive for your partial dialysis session tomorrow. You need to then resume your full dialysis appointment on Thursday as scheduled. You may take your nausea meds that you have at home as needed. 2 prescriptions have been called into your pharmacy on file to help with your stomach pain. You need to return to the emergency department for worsening pain, worsening vomiting or diarrhea, fevers, generally feeling worse or unwell, or any other concerns you may have. 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
[2024-05-27 14:36] LABS: Basophils # 0.1 10^3/uL (0.0-0.1); Basophils % 0.4 %; Eosinophils # 0.2 10^3/uL (0.0-0.8); Eosinophils % 1.4 %; Hematocrit 28.9 % (37-53); Lymphocytes # 0.4 10^3/uL (0.8-4.8); Lymphocytes % 3.2 %; Mean Corpuscular HGB Conc 32.9 g/dL (30-55); Mean Corpuscular Hemoglobin 33.2 pg (27-33); Mean Platelet Volume 10.4 fL (7.4-10.4); Monocytes # 1.3 10^3/uL (0.2-0.9); Monocytes % 10.8 %; Neutrophils # 10.22 10^3/uL (1.8-7.7); Neutrophils % 83.8 %; Nucleated Red Blood Cells % 0 %; Platelet Count 163 10^3/cmm (157-399); Red Blood Count 2.86 10^6/uL (3.85-5.65); Red Cell Distribution Width 16.9 % (12.1-15.1)
[2024-05-27] MEDS: haloperidol inj 5 mg/mL INJ 1 mL 2.5 MG IVP (14:39)
[2024-05-27] MEDS: sodium chloride 0.9% 1,000 ML 999 ML IV (14:39)
[2024-05-27] MEDS: LORazepam 2 mg/mL INJ 1 mL 1 MG IVP (14:42)
[2024-05-27 15:36] VITALS: BP 123/81; PULSE 76; O2SAT 96
[2024-05-27 15:54] LABS: Alanine Aminotransferase 12 U/L (0-41); Albumin Level 4.7 g/dL (3.5-5.2); Alkaline Phosphatase 74 U/L (40-130); Anion Gap 26.1 (5-19); Aspartate Amino Transferase 14 U/L (0-40); Blood Urea Nitrogen 64 mg/dL (6-20); Calcium 9.3 mg/dL (8.5-10.5); Carbon Dioxide 25 mmol/L (22-29); Chloride 96 mmol/L (98-107); Creatinine Clr Calc Pharmacy 10.0511; Globulin 2.1 g/dL (1.3-4.6); Glomerular Filtration Rate 8.1 mL/min (90-130); Glucose 72 mg/dL (65-115); Lipase 74 U/L (13-60); Magnesium 2.9 mg/dL (1.7-2.3); Osmolality Calculated 311 mOsm/kg (285-295); Potassium 5.1 mmol/L (3.5-5.1); Sodium 142 mmol/L (136-145); Total Bilirubin 0.3 mg/dL (0.15-1.2); Total Protein 6.8 g/dL (6.6-8.7)
[2024-05-27 16:49] LABS: Phosphorus 8.6 mg/dL (2.5-4.5)
--- NOTE | 2024-05-27 17:03 | CTR_ITS ---
PROCEDURE INFORMATION: Exam: CT Abdomen And Pelvis Without Contrast Exam date and time: 05/27/2024 5:18 PM Age: 23 years old Clinical indication: Abdominal pain; Generalized; Prior surgery; Surgery date: 6+ months; Surgery type: Kidney transplant; Additional info: Abdominal pain, n/v/d TECHNIQUE: Imaging protocol: Computed tomography of the abdomen and pelvis without contrast. Radiation optimization: All CT scans at this facility use at least one of these dose optimization techniques: automated exposure control; mA and/or kV adjustment per patient size (includes targeted exams where dose is matched to clinical indication); or iterative reconstruction. COMPARISON: No relevant prior studies available. RADIATION DOSE METRICS: Total DLP (mGy-cm): 310.98 FINDINGS: Liver: Punctate calcified hepatic granulomas incidentally noted. Gallbladder and biliary ducts: Normal. No calcified stones. No ductal dilation. Pancreas: Normal. No ductal dilation. Spleen: Borderline splenic enlargement, nonspecific. Adrenal glands: Normal. No mass. Kidneys and ureters: Severely atrophic/small [place] kidneys. Nonobstructive left renal stones X 2 up to 2 mm. Nonobstructive punctate right renal stone. A 1.2 cm cyst in the upper pole of the right [place] kidney. Right lower quadrant transplant kidney appears normal in size without hydronephrosis or perinephric collection. No stone in the transplant kidney. Stomach and bowel: Mild thickening of the gastric wall especially of the antrum. Appendix: No evidence of appendicitis. Intraperitoneal space: Unremarkable. No free air. No significant fluid collection. Vasculature: Unremarkable. No abdominal aortic aneurysm. Lymph nodes: Unremarkable. No enlarged lymph nodes. Urinary bladder: Mild urinary bladder wall thickening. Reproductive: Unremarkable as visualized. Bones/joints: Unremarkable. No acute fracture. Soft tissues: Unremarkable. CT/CT abdomen pelvis wo con [id number] IMPRESSION: 1. Mild gastric wall thickening suggestive of gastritis. 2. Urinary bladder wall questionably mildly thickened. Correlation for any evidence of cystitis suggested. 3. Expected appearance of the right lower quadrant transplant kidney on noncontrast CT. Other chronic findings above. COMMENTS: Consistent with the [employer]'s Incidental Findings Committee white paper (J Am Addie Radiol 2018): Any incidental renal lesion less than 1 cm or classified as too small to characterize, or any incidental cystic renal lesion characterized as simple-appearing, is likely benign. No follow-up imaging is recommended for these lesions per consensus recommendations based on imaging criteria.
[2024-05-27 18:00] VITALS: BP 130/79; PULSE 76; O2SAT 96
[2024-05-27 18:25] VITALS: O2SAT 100
[2024-05-27] MEDS: morphine 4 mg/mL SDV 1 mL IVP (18:25)
[2024-05-27] MEDS: lidocaine 2% viscous 15 ML, aluminum-mag hydrox-simethicon 30 ML, sucralfate oral liq 1 GM PO (18:26)
[2024-05-27 18:52] VITALS: BP 118/76; PULSE 74; O2SAT 96
== END 2024-05-27 18:53 | disposition home or self-care (01) ==
PROVIDERS: Emergency Provider Physician Assistant
DX: N18.6 End stage renal disease (principal); K29.00 Acute gastritis without bleeding; T86.12 Kidney transplant failure; T86.11 Kidney transplant rejection; Y83.0 Surgical operation with transplant of whole organ as the cause of abnormal reaction of the patient, or of later complication, without mention of misadventure at the time of the procedure; N26.9 Renal sclerosis, unspecified
CPT/HCPCS: 36415; 74176; 80053; 83690; 83735; 84100; 85025; 96374; 96375; 99285; J1630; J2060; J2270; J7030

== ENCOUNTER 2024-07-02 19:25 | Emergency (ER) | payer MEDICARE, MEDICAID, SELFPAY ==
[2024-07-02 19:33] VITALS: BP 143/90; PULSE 87; RESP 14; TEMP 36.7; O2SAT 99; BMI 20.1
== END 2024-07-02 20:34 | disposition left against medical advice (07) ==
LOC: ER 19:35
PROVIDERS: Emergency Provider Family Medicine
DX: Z53.21 Procedure and treatment not carried out due to patient leaving prior to being seen by health care provider (principal)

== ENCOUNTER 2024-07-03 17:43 | Emergency (ER) | payer MEDICARE, MEDICAID, SELFPAY ==
[2024-07-03 17:50] VITALS: BP 155/102; PULSE 81; TEMP 36.6; O2SAT 99; BMI 20.7
--- NOTE | 2024-07-03 19:10 | W.ED.ANXIETY ---
HPI - Anxiety General: Chief Complaint: Anxiety Stated Complaint: MHE Time Seen by Provider: 07/03/24 18:15 History of Present Illness: 23-year-old male with multiple medical problems including end-stage renal disease on dialysis. He has longstanding anxiety. He has required more than 1 admission to our neuropsychiatric unit. He has been quite anxious about his health, more recent. He is transitioned off of aripiprazole, and onto Zyprexa, which does not seem to be helping. He presented to the crisis center last week and that medicine change was made at that point. He is not suicidal or homicidal. He says he does not wish to be in the hospital unless he absolutely has to be. He does however relate increasing anxiety, especially before and during dialysis on those days. He has missed 1 session of dialysis, and had to cut another short in the last week. Related Data Home Medications Medication Instructions Recorded Confirmed labetalol 200 mg tablet 200 mg PO BID 05/10/21 05/27/24 allopurinol 100 mg tablet 100 mg PO DAILY 02/03/22 05/27/24 amlodipine 5 mg tablet (Norvasc) 5 mg PO BEDTIME 02/03/22 05/27/24 doxazosin 4 mg tablet (Cardura) 4 mg PO DAILY 10/28/23 05/27/24 hydralazine 100 mg tablet 100 mg PO BID 10/28/23 05/27/24 vit B,C-folic ac 800 mcg-zinc 12.5 1 tab PO DAILY 10/28/23 05/27/24 mg-selen-D3 2,000 unit-vit E tablet (RenaPlex-D) nitroglycerin 0.4 mg sublingual 0.4 mg sublingual Q5M Chest Pain 12/03/23 05/27/24 tablet sevelamer carbonate 800 mg tablet 1,600 mg PO TIDWM phosphate binder 04/23/24 05/27/24 aripiprazole 5 mg tablet 5 mg PO DAILY 05/27/24 05/27/24 citalopram 20 mg tablet 20 mg PO DAILY 05/27/24 05/27/24 prednisone 5 mg tablet 5 mg PO DAILY 05/27/24 05/27/24 tacrolimus 1 mg capsule, 2 mg PO BID 05/27/24 05/27/24 immediate-release Previous Rx's Medication Instructions Recorded trazodone 100 mg tablet 100 mg PO QPM #30 tabs 12/03/23 aripiprazole 10 mg tablet 10 mg PO DAILY 30 days #30 tabs 04/26/24 zolpidem 5 mg tablet 5 mg PO BEDTIME 30 days #30 tabs 04/26/24 alprazolam 0.5 mg tablet 0.5 mg PO DAILY PRN anxiety #10 07/03/24 tabs Allergies Allergy/AdvReac Type Severity Reaction Status Date / Time NSAIDS (Non-Steroidal Allergy Severe unable to Verified 07/03/24 17:56 Anti-Inflamma take due to kidney disease grapefruit Allergy Unknown Verified 07/03/24 17:56 sertraline [From Zoloft] Allergy Unknown Verified 07/03/24 17:56 PFSH ED PFSH: Medical History CKD (chronic kidney disease) stage V requiring chronic dialysis Generalized anxiety disorder Other stimulant dependence, in remission Psychiatric care Problems related to lack of adequate sleep Substance abuse Depression Anxiety Social History Smoking and tobacco/nicotine status: current every day tobacco/nicotine user e-cigarettes E-Cigarette Details: vaporizer device and with nicotine E-cig/vape details: 6 mg and smokeless tobacco Smokeless tobacco user: chewing tobacco Smokeless tobacco details: 1 can/3 days. Quit status (tobacco/nicotine): has tried quititng Number of times tried to quit tobacco: 4 Second hand smoke exposure: No Physical Exam Const: GENERAL APPEARANCE: cooperative and anxious; not ill appearing and not frail appearing HENMT: COMMON NORMALS: normocephalic, atraumatic and Normal external nose present HEAD & SCALP: normocephalic and atraumatic FACE & SINUS: normal facial exam and face symmetric NOSE: Normal external nose present Eye: COMMON NORMALS: Equal, round and reactive pupils present and EOMs intact bilaterally PUPIL: Yes Equal, round and reactive pupils present Neck/C-Spine: GENERAL: Yes trachea midline Chest: CHEST: Yes Symmetrical chest wall rise Resp: COMMON NORMALS: normal respiratory effort, No retractions, No use of accessory muscles and clear to auscultation bilaterally AUSCULTATION: clear to auscultation bilaterally Cardio: COMMON NORMALS: regular rate and regular rhythm RATE: regular rate RHYTHM: regular rhythm GI: COMMON NORMALS: Normal to inspection, nondistended, normoactive bowel sounds present Extremity: COMMON NORMALS: no pedal edema Neuro: [place] COMA SCALE: document GCS findings [place] coma scale eye opening: Spontaneous [place] coma scale verbal response: Orientated [place] coma scale motor response: Obey commands [place] coma scale total score: 15 SENSORY EXAM: Yes extremities (intact) Psych: COMMON NORMALS: speech normal SPEECH: Yes normal speech Skin: COMMON NORMALS: no rashes or lesions noted GENERAL SKIN EXAM: no rashes or lesions noted Course Vital Signs: Vital signs: Vital Signs Temperature 97.8 F 07/03/24 17:50 Pulse Rate 81 07/03/24 21:02 Respiratory Rate 18 07/03/24 21:02 Blood Pressure 141/91 07/03/24 21:02 Pulse Oximetry 99 07/03/24 21:02 Oxygen Delivery Me thod Room Air 07/03/24 17:50 MDM - Anxiety Medical Decision Making Patient is essentially medically stable. He is quite anxious. As he relates, increases in his blood urea nitrogen have caused encephalopathic changes before, he would like these parameters checked. This is sound clinically. He is given 0.5 mg of alprazolam here while we wait to see if this helps his anxiety. Patient believes anxiety is reduced with small dose of alprazolam. BUN is 59, creatinine is 11, which is significantly elevated after short session of dialysis on Thursday. He has dialysis scheduled again tomorrow. Laboratories otherwise not terribly remarkable. His phosphorus is back down. Discussed the possibilities of treatment. 1 could consider propranolol on dialysis days to reduce anxiety. Benzodiazepines are another option. Since he was given a trial here and has seemed to help, he will be prescribed a short course of benzodiazepines. He has a [facility] appointment next week, where further discussion can be had about his anxiety. They know to return for any other symptoms. Lab Data 07/03/24 19:34 07/03/24 19:34 Laboratory Results WBC 6.37 10^3/uL (3.29-11.43) 07/03/24 19:34 RBC 3.79 10^6/uL (3.85-5.65) L 07/03/24 19:34 Hgb 12.70 g/dL (11.27-16.99) 07/03/24 19:34 Hct 38.3 % (37-53) 07/03/24 19:34 MCV 101.1 fl (82-101) H 07/03/24 19:34 MCH 33.5 pg (27-33) H 07/03/24 19:34 MCHC 33.2 g/dL (30-55) 07/03/24 19:34 RDW 14.6 % (12.1-15.1) 07/03/24 19:34 Plt Count 196 10^3/cmm (157-399) 07/03/24 19:34 MPV 10.3 fL (7.4-10.4) 07/03/24 19:34 Neut % (Auto) 67.5 % 07/03/24 19:34 Lymph % (Auto) 13.7 % 07/03/24 19:34 [place] % (Auto) 12.7 % 07/03/24 19:34 Eos % (Auto) 5.0 % 07/03/24 19:34 Baso % (Auto) 0.9 % 07/03/24 19:34 Neut # (Auto) 4.30 10^3/uL (1.8-7.7) 07/03/24 19:34 Lymph # (Auto) 0.9 10^3/uL (0.8-4.8) 07/03/24 19:34 [place] # (Auto) 0.8 10^3/uL (0.2-0.9) 07/03/24 19:34 Eos # (Auto) 0.3 10^3/uL (0.0-0.8) 07/03/24 19:34 Baso # (Auto) 0.1 10^3/uL (0.0-0.1) 07/03/24 19:34 Nucleated RBC % (auto) 0 % 07/03/24 19:34 Nucleated RBCs # 0.0 /100WBC 07/03/24 19:34 Sodium 142 mmol/L (136-145) 07/03/24 19:34 Potassium 3.7 mmol/L (3.5-5.1) 07/03/24 19:34 Chloride 93 mmol/L (98-107) L 07/03/24 19:34 Carbon Dioxide 29 mmol/L (22-29) 07/03/24 19:34 Anion Gap 23.7 (5-19) H 07/03/24 19:34 BUN 59 mg/dL (6-20) H 07/03/24 19:34 Creatinine 10.9 mg/dL (0.7-1.2) H* 07/03/24 19:34 GFR Calculation 5.9 mL/min (90-130) L 07/03/24 19:34 Glucose 74 mg/dL (65-115) 07/03/24 19:34 Calculated Osmolality 309 mOsm/kg (285-295) H 07/03/24 19:34 Calcium 9.8 mg/dL (8.5-10.5) 07/03/24 19:34 Phosphorus 7.8 mg/dL (2.5-4.5) H* 07/03/24 19:34 Magnesium 3.3 mg/dL (1.7-2.3) H 07/03/24 19:34 Total Bilirubin 0.3 mg/dL (0.15-1.2) 07/03/24 19:34 AST 13 U/L (0-40) 07/03/24 19:34 ALT 10 U/L (0-41) 07/03/24 19:34 Alkaline Phosphatase 77 U/L (40-130) 07/03/24 19:34 Total Protein 7.5 g/dL (6.6-8.7) 07/03/24 19:34 Albumin 5.2 g/dL (3.5-5.2) 07/03/24 19:34 Globulin 2.3 g/dL (1.3-4.6) 07/03/24 19:34 No radiology studies performed this visit Discharge Plan Discharge Patient Disposition: Home Clinical Impression: Acute anxiety Condition: Stable Prescriptions: New alprazolam 0.5 mg tablet 0.5 mg PO DAILY PRN (Reason: anxiety) Qty: 10 0RF No Action labetalol 200 mg tablet 200 mg PO BID nitroglycerin 0.4 mg tablet, sublingual 0.4 mg sublingual Q5M Rx Instructions: do not exceed 3 doses per episode trazodone 100 mg tablet 100 mg PO QPM Qty: 30 0RF hydralazine 100 mg tablet 100 mg PO BID doxazosin [Cardura] 4 mg tablet 4 mg PO DAILY RenaPlex-D 800 mcg-12.5 mg -2,000 unit tablet 1 tab PO DAILY sevelamer carbonate 800 mg tablet 1,600 mg PO TIDWM zolpidem 5 mg Tablet 5 mg PO BEDTIME 30 Days Qty: 30 1RF aripiprazole 10 mg Tablet 10 mg PO DAILY 30 Days Qty: 30 1RF amlodipine [Norvasc] 5 mg Tablet 5 mg PO BEDTIME allopurinol 100 mg Tablet 100 mg PO DAILY prednisone 5 mg tablet 5 mg PO DAILY tacrolimus 1 mg capsule 2 mg PO BID aripiprazole 5 mg tablet 5 mg PO DAILY citalopram 20 mg tablet 20 mg PO DAILY Discharge Orders: Discharge ED (Routine); Ordered 07/03/24 Ordered By: Barak Roberts Patient Instructions: Anxiety (ED), Opioid Safety, Pain Management Activity Restrictions/Additional Instructions: Take medication prior to dialysis as we discussed. Try to do this strictly, and not at other times. Discussed treatment options with your doctor at [facility] next week. It is imperative that you are able to attend full sessions of dialysis for your health. Return for any problems. 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
[2024-07-03] MEDS: ALPRAZolam 0.5 mg Tablet PO ×2 (19:30→21:01)
[2024-07-03 19:43] LABS: Basophils # 0.1 10^3/uL (0.0-0.1); Basophils % 0.9 %; Eosinophils # 0.3 10^3/uL (0.0-0.8); Hematocrit 38.3 % (37-53); Lymphocytes # 0.9 10^3/uL (0.8-4.8); Lymphocytes % 13.7 %; Mean Corpuscular HGB Conc 33.2 g/dL (30-55); Mean Corpuscular Hemoglobin 33.5 pg (27-33); Mean Corpuscular Volume 101.1 fl (82-101); Mean Platelet Volume 10.3 fL (7.4-10.4); Monocytes # 0.8 10^3/uL (0.2-0.9); Monocytes % 12.7 %; Neutrophils % 67.5 %; Nucleated Red Blood Cells % 0 %; Platelet Count 196 10^3/cmm (157-399); Red Blood Count 3.79 10^6/uL (3.85-5.65); Red Cell Distribution Width 14.6 % (12.1-15.1); White Blood Count 6.37 10^3/uL (3.29-11.43)
[2024-07-03 20:06] LABS: Alanine Aminotransferase 10 U/L (0-41); Albumin Level 5.2 g/dL (3.5-5.2); Alkaline Phosphatase 77 U/L (40-130); Anion Gap 23.7 (5-19); Aspartate Amino Transferase 13 U/L (0-40); Blood Urea Nitrogen 59 mg/dL (6-20); Calcium 9.8 mg/dL (8.5-10.5); Carbon Dioxide 29 mmol/L (22-29); Chloride 93 mmol/L (98-107); Creatinine Clr Calc Pharmacy 7.6536; Globulin 2.3 g/dL (1.3-4.6); Glomerular Filtration Rate 5.9 mL/min (90-130); Glucose 74 mg/dL (65-115); Magnesium 3.3 mg/dL (1.7-2.3); Osmolality Calculated 309 mOsm/kg (285-295); Potassium 3.7 mmol/L (3.5-5.1); Sodium 142 mmol/L (136-145); Total Bilirubin 0.3 mg/dL (0.15-1.2); Total Protein 7.5 g/dL (6.6-8.7)
[2024-07-03 20:19] LABS: Phosphorus 7.8 mg/dL (2.5-4.5)
[2024-07-03 21:02] VITALS: BP 141/91; PULSE 81; RESP 18; O2SAT 99
== END 2024-07-03 21:05 | disposition home or self-care (01) ==
PROVIDERS: Emergency Provider Emergency Medicine
DX: F41.9 Anxiety disorder, unspecified (principal); N18.5 Chronic kidney disease, stage 5; Z99.2 Dependence on renal dialysis; F17.290 Nicotine dependence, other tobacco product, uncomplicated; F17.220 Nicotine dependence, chewing tobacco, uncomplicated
CPT/HCPCS: 80053; 83735; 84100; 85025; 99283

== ENCOUNTER 2024-07-30 02:43 | Inpatient (IN) | payer MEDICARE, MEDICAID, SELFPAY ==
[2024-07-30 02:48] VITALS: BP 130/67; PULSE 78; RESP 20; TEMP 36.4; O2SAT 98; BMI 22.6
--- NOTE | 2024-07-30 03:00 | ED_ITS ---
Documented by User: Arturo Lacy DO 07/30/24 05:11 HPI - Anxiety 2 General: Chief Complaint: Anxiety Stated Complaint: panic attack SI Time Seen by Provider: 07/30/24 02:57 History of Present Illness: Patient presents to the ER with complaints of panic attacks worsening anxiety and intermittent suicidal thoughts. Patient says the doctor's been lowering his such psychiatric medicines and he feels like his anxiety and panic attacks are getting worse. He is seeing a psychiatrist out in [place] currently but they referred him to another psychiatrist has not seen yet. He has been having worsening anxiety and depression especially at times of dialysis where he is feels like he is just hooked up to machine and he does not have any reason to live. Patient states he does have occasional suicidal thoughts but can never go through with it because he does not want to .. Related Data Home Medications Medication Instructions Recorded Confirmed labetalol 200 mg tablet 200 mg PO BID 05/10/21 05/27/24 allopurinol 100 mg tablet 100 mg PO DAILY 02/03/22 05/27/24 amlodipine 5 mg tablet (Norvasc) 5 mg PO BEDTIME 02/03/22 05/27/24 doxazosin 4 mg tablet (Cardura) 4 mg PO DAILY 10/28/23 05/27/24 hydralazine 100 mg tablet 100 mg PO BID 10/28/23 05/27/24 vit B,C-folic ac 800 mcg-zinc 12.5 1 tab PO DAILY 10/28/23 05/27/24 mg-selen-D3 2,000 unit-vit E tablet (RenaPlex-D) nitroglycerin 0.4 mg sublingual 0.4 mg sublingual Q5M Chest Pain 12/03/23 05/27/24 tablet sevelamer carbonate 800 mg tablet 1,600 mg PO TIDWM phosphate binder 04/23/24 05/27/24 aripiprazole 5 mg tablet 5 mg PO DAILY 05/27/24 05/27/24 citalopram 20 mg tablet 20 mg PO DAILY 05/27/24 05/27/24 prednisone 5 mg tablet 5 mg PO DAILY 05/27/24 05/27/24 tacrolimus 1 mg capsule, 2 mg PO BID 05/27/24 05/27/24 immediate-release Previous Rx's Medication Instructions Recorded trazodone 100 mg tablet 100 mg PO QPM #30 tabs 12/03/23 aripiprazole 10 mg tablet 10 mg PO DAILY 30 days #30 tabs 04/26/24 zolpidem 5 mg tablet 5 mg PO BEDTIME 30 days #30 tabs 04/26/24 alprazolam 0.5 mg tablet 0.5 mg PO DAILY PRN anxiety #10 07/03/24 tabs Allergies Allergy/AdvReac Type Severity Reaction Status Date / Time NSAIDS (Non-Steroidal Allergy Severe unable to Verified 07/03/24 17:56 Anti-Inflamma take due to kidney disease grapefruit Allergy Unknown Verified 07/03/24 17:56 sertraline [From Zoloft] Allergy Unknown Verified 07/03/24 17:56 Review of Systems 2 General: Reports: 10 or more systems reviewed and unremarkable except in HPI and below PFSH ED 2 PFSH: Medical History CKD (chronic kidney disease) stage V requiring chronic dialysis Generalized anxiety disorder Other stimulant dependence, in remission Psychiatric care Problems related to lack of adequate sleep Substance abuse Depression Anxiety Social History Smoking and tobacco/nicotine status: current every day tobacco/nicotine user e- cigarettes E-Cigarette Details: vaporizer device and with nicotine E-cig/vape details: 6 mg and smokeless tobacco Smokeless tobacco user: chewing tobacco Smokeless tobacco details: 1 can/3 days. Quit status (tobacco/nicotine): has tried quititng Number of times tried to quit tobacco: 4 Second hand smoke exposure: No Physical Exam 2 Const: COMMON NORMALS: no acute distress, average body habitus, patient oriented x3, no limitations, healthy appearing, alert and well nourished HENMT: COMMON NORMALS: normocephalic, atraumatic, hearing grossly normal bilaterally, external ears normal, Normal external nose present and moist oral mucous membranes HEAD & SCALP: normocephalic and atraumatic NOSE: Normal external nose present EXTERNAL EAR: Yes external ears normal Neck/C-Spine: COMMON NORMALS: full ROM, no lymphadenopathy, supple, no meningeal signs, no JVD and Thyroid normal THYROID: Thyroid normal Chest: COMMONS NORMALS: normal inspection of the chest and normal palpation of entire chest wall Resp: COMMON NORMALS: normal respiratory effort, No retractions, No use of accessory muscles and clear to auscultation bilaterally AUSCULTATION: clear to auscultation bilaterally Cardio: COMMON NORMALS: no JVD, regular rate, regular rhythm, S1 normal heart sound present, S2 normal heart sound present, No gallops present (Cardio), No clicks present (Cardio), No murmurs present (Cardio) and No rub (Cardio) R ATE: regular rate RHYTHM: regular rhythm HEART SOUNDS: S1 normal heart sound present and S2 normal heart sound present GI: COMMON NORMALS: Normal to inspection, nondistended, normoactive bowel sounds present, Soft to palpation, non-tender, No hepatosplenomegaly present and no masses PALPATION: Yes Soft to palpation and Yes No hepatosplenomegaly present Neuro: COMMON NORMALS: patient oriented x3 SENSORIUM/ORIENTATION: Yes alert MENINGEAL SIGNS: Yes no meningeal signs Course 2 Vital Signs: Vital signs: Vital Signs Temperature 97.6 F 07/30/24 02:48 Pulse Rate 70 07/30/24 08:17 Respiratory Rate 20 H 07/30/24 02:48 Blood Pressure 143/93 07/30/24 08:17 Pulse Oximetry 97 07/30/24 08:17 Oxygen Delivery Me thod Room Air 07/30/24 08:17 MDM - Anxiety Medical Decision Making While waiting for lab work to clear patient made multiple suicidal type comments such as he has done he wants it all to be over, he does not have to write a note to anybody because he is already wrote 1, he is sick and tired of living this way, his mom said that he told her if he was going to commit suicide he would/open his dialysis fistula, and that if he tried the crisis center in the ER and neither one of them was able to give him help he was done and just wanted to end it. Medical Records I reviewed the patient's medical records. Lab Data I reviewed the patient's lab results. 07/30/24 03:40 07/30/24 03:40 Laboratory Results WBC 5.36 10^3/uL (3.29-11.43) 07/30/24 03:40 RBC 3.54 10^6/uL (3.85-5.65) L 07/30/24 03:40 Hgb 11.40 g/dL (11.27-16.99) 07/30/24 03:40 Hct 36.2 % (37-53) L 07/30/24 03:40 MCV 102.3 fl (82-101) H 07/30/24 03:40 MCH 32.2 pg (27-33) 07/30/24 03:40 MCHC 31.5 g/dL (30-55) 07/30/24 03:40 RDW 14.1 % (12.1-15.1) 07/30/24 03:40 Plt Count 198 10^3/cmm (157-399) 07/30/24 03:40 MPV 10.3 fL (7.4-10.4) 07/30/24 03:40 Neut % (Auto) 61.9 % 07/30/24 03:40 Lymph % (Auto) 16.8 % 07/30/24 03:40 [place] % (Auto) 12.3 % 07/30/24 03:40 Eos % (Auto) 6.9 % 07/30/24 03:40 Baso % (Auto) 1.5 % 07/30/24 03:40 Neut # (Auto) 3.32 10^3/uL (1.8-7.7) 07/30/24 03:40 Lymph # (Auto) 0.9 10^3/uL (0.8-4.8) 07/30/24 03:40 [place] # (Auto) 0.7 10^3/uL (0.2-0.9) 07/30/24 03:40 Eos # (Auto) 0.4 10^3/uL (0.0-0.8) 07/30/24 03:40 Baso # (Auto) 0.1 10^3/uL (0.0-0.1) 07/30/24 03:40 Nucleated RBC % (auto) 0 % 07/30/24 03:40 Nucleated RBCs # 0.0 /100WBC 07/30/24 03:40 Sodium 142 mmol/L (136-145) 07/30/24 03:40 Potassium 5.0 mmol/L (3.5-5.1) 07/30/24 03:40 Chloride 94 mmol/L (98-107) L 07/30/24 03:40 Carbon Dioxide 32 mmol/L (22-29) H 07/30/24 03:40 Anion Gap 21.0 (5-19) H 07/30/24 03:40 BUN 40 mg/dL (6-20) H 07/30/24 03:40 Creatinine 8.2 mg/dL (0.7-1.2) H* 07/30/24 03:40 GFR Calculation 8.1 mL/min (90-130) L 07/30/24 03:40 Glucose 90 mg/dL (65-115) 07/30/24 03:40 POC Glucose 97 mg/dL (70-110) 07/30/24 08:14 Calculated Osmolality 303 mOsm/kg (285-295) H 07/30/24 03:40 Calcium 9.6 mg/dL (8.5-10.5) 07/30/24 03:40 Phosphorus 7.2 mg/dL (2.5-4.5) H 07/30/24 03:40 Magnesium 3.0 mg/dL (1.7-2.3) H 07/30/24 03:40 Total Bilirubin 0.3 mg/dL (0.15-1.2) 07/30/24 03:40 AST 15 U/L (0-40) 07/30/24 03:40 ALT 14 U/L (0-41) 07/30/24 03:40 Alkaline Phosphatase 96 U/L (40-130) 07/30/24 03:40 Total Protein 8.1 g/dL (6.6-8.7) 07/30/24 03:40 Albumin 5.2 g/dL (3.5-5.2) 07/30/24 03:40 Globulin 2.9 g/dL (1.3-4.6) 07/30/24 03:40 Salicylates < 0.3 mg/dL (3-10) L 07/30/24 03:40 Acetaminophen 12.0 ug/mL (10-30) 07/30/24 03:40 Ethyl Alcohol < 10 mg/dL (0-10) 07/30/24 03:40 No radiology studies performed this visit Discharge Plan Discharge Patient Disposition: Admitted As Inpatient Clinical Impression: Acute anxiety, Suicidal ideation, ESRD on dialysis Condition: Stable Prescriptions: No Action labetalol 200 mg tablet 200 mg PO BID nitroglycerin 0.4 mg tablet, sublingual 0.4 mg sublingual Q5M Rx Instructions: do not exceed 3 doses per episode trazodone 100 mg tablet 100 mg PO QPM Qty: 30 0RF hydralazine 100 mg tablet 100 mg PO BID doxazosin [Cardura] 4 mg tablet 4 mg PO DAILY RenaPlex-D 800 mcg-12.5 mg -2,000 unit tablet 1 tab PO DAILY sevelamer carbonate 800 mg tablet 1,600 mg PO TIDWM zolpidem 5 mg Tablet 5 mg PO BEDTIME 30 Days Qty: 30 1RF aripiprazole 10 mg Tablet 10 mg PO DAILY 30 Days Qty: 30 1RF amlodipine [Norvasc] 5 mg Tablet 5 mg PO BEDTIME allopurinol 100 mg Tablet 100 mg PO DAILY prednisone 5 mg tablet 5 mg PO DAILY tacrolimus 1 mg capsule 2 mg PO BID aripiprazole 5 mg tablet 5 mg PO DAILY citalopram 20 mg tablet 20 mg PO DAILY alprazolam 0.5 mg tablet 0.5 mg PO DAILY PRN (Reason: anxiety) Qty: 10 0RF Referrals: Renetta Cole EMAIL PRODUCTION SPECIALIST [Primary Care Provider] - Sign Out Sign Out Data: Patient Sign Out occurred on 07/30/24 at 06:41. Patient's care was discussed, and care was transferred from Arturo Lacy DO to Wade Dan DO. Coding Level of Care Code ED Film Examiner for Chg Fwd Documented by User: Wade Dan DO 07/30/24 08:44 HPI - Anxiety 2 General: Chief Complaint: Anxiety Stated Complaint: panic attack SI Time Seen by Provider: 07/30/24 02:57 Related Data Home Medications Medication Instructions Recorded Confirmed labetalol 200 mg tablet 200 mg PO BID 05/10/21 05/27/24 allopurinol 100 mg tablet 100 mg PO DAILY 02/03/22 05/27/24 amlodipine 5 mg tablet (Norvasc) 5 mg PO BEDTIME 02/03/22 05/27/24 doxazosin 4 mg tablet (Cardura) 4 mg PO DAILY 10/28/23 05/27/24 hydralazine 100 mg tablet 100 mg PO BID 10/28/23 05/27/24 vit B,C-folic ac 800 mcg-zinc 12.5 1 tab PO DAILY 10/28/23 05/27/24 mg-selen-D3 2,000 unit-vit E tablet (RenaPlex-D) nitroglycerin 0.4 mg sublingual 0.4 mg sublingual Q5M Chest Pain 12/03/23 05/27/24 tablet sevelamer carbonate 800 mg tablet 1,600 mg PO TIDWM phosphate binder 04/23/24 05/27/24 aripiprazole 5 mg tablet 5 mg PO DAILY 05/27/24 05/27/24 citalopram 20 mg tablet 20 mg PO DAILY 05/27/24 05/27/24 prednisone 5 mg tablet 5 mg PO DAILY 05/27/24 05/27/24 tacrolimus 1 mg capsule, 2 mg PO BID 05/27/24 05/27/24 immediate-release Previous Rx's Medication Instructions Recorded trazodone 100 mg tablet 100 mg PO QPM #30 tabs 12/03/23 aripiprazole 10 mg tablet 10 mg PO DAILY 30 days #30 tabs 04/26/24 zolpidem 5 mg tablet 5 mg PO BEDTIME 30 days #30 tabs 04/26/24 alprazolam 0.5 mg tablet 0.5 mg PO DAILY PRN anxiety #10 07/03/24 tabs Allergies Allergy/AdvReac Type Severity Reaction Status Date / Time NSAIDS (Non-Steroidal Allergy Severe unable to Verified 07/03/24 17:56 Anti-Inflamma take due to kidney disease grapefruit Allergy Unknown Verified 07/03/24 17:56 sertraline [From Zoloft] Allergy Unknown Verified 07/03/24 17:56 PFSH ED 2 PFSH: Medical History CKD (chronic kidney disease) stage V requiring chronic dialysis Generalized anxiety disorder Other stimulant dependence, in remission Psychiatric care Problems related to lack of adequate sleep Substance abuse Depression Anxiety Social History Smoking and tobacco/nicotine status: current every day tobacco/nicotine user e- cigarettes E-Cigarette Details: vaporizer device and with nicotine E-cig/vape details: 6 mg and smokeless tobacco Smokeless tobacco user: chewing tobacco Smokeless tobacco details: 1 can/3 days. Quit status (tobacco/nicotine): has tried quititng Number of times tried to quit tobacco: 4 Second hand smoke exposure: No Course 2 Vital Signs: Vital signs: Vital Signs Temperature 97.6 F 07/30/24 02:48 Pulse Rate 70 07/30/24 08:17 Respiratory Rate 20 H 07/30/24 02:48 Blood Pressure 143/93 07/30/24 08:17 Pulse Oximetry 97 07/30/24 08:17 Oxygen Delivery Me thod Room Air 07/30/24 08:17 MDM - Anxiety Medical Decision Making While waiting for lab work to clear patient made multiple suicidal type comments such as he has done he wants it all to be over, he does not have to write a note to anybody because he is already wrote 1, he is sick and tired of living this way, his mom said that he told her if he was going to commit suicide he would/open his dialysis fistula, and that if he tried the crisis center in the ER and neither one of them was able to give him help he was done and just wanted to end it. Care assumed at change of shift. Patient previously was admitted for psychiatric issues but at that time he had overdosed on hydralazine and missed dialysis and he was hyperkalemic he was admitted to the floor and psychiatry was consulted. At this time he is stable he did receive his full course of dialysis yesterday he is not hyperkalemic. Discussed Dr. Marroquin will admit to [facility] consult nephrology for his regular dialysis with as scheduled. Lab Data 07/30/24 03:40 07/30/24 03:40 Laboratory Results WBC 5.36 10^3/uL (3.29-11.43) 07/30/24 03:40 RBC 3.54 10^6/uL (3.85-5.65) L 07/30/24 03:40 Hgb 11.40 g/dL (11.27-16.99) 07/30/24 03:40 Hct 36.2 % (37-53) L 07/30/24 03:40 MCV 102.3 fl (82-101) H 07/30/24 03:40 MCH 32.2 pg (27-33) 07/30/24 03:40 MCHC 31.5 g/dL (30-55) 07/30/24 03:40 RDW 14.1 % (12.1-15.1) 07/30/24 03:40 Plt Count 198 10^3/cmm (157-399) 07/30/24 03:40 MPV 10.3 fL (7.4-10.4) 07/30/24 03:40 Neut % (Auto) 61.9 % 07/30/24 03:40 Lymph % (Auto) 16.8 % 07/30/24 03:40 [place] % (Auto) 12.3 % 07/30/24 03:40 Eos % (Auto) 6.9 % 07/30/24 03:40 Baso % (Auto) 1.5 % 07/30/24 03:40 Neut # (Auto) 3.32 10^3/uL (1.8-7.7) 07/30/24 03:40 Lymph # (Auto) 0.9 10^3/uL (0.8-4.8) 07/30/24 03:40 [place] # (Auto) 0.7 10^3/uL (0.2-0.9) 07/30/24 03:40 Eos # (Auto) 0.4 10^3/uL (0.0-0.8) 07/30/24 03:40 Baso # (Auto) 0.1 10^3/uL (0.0-0.1) 07/30/24 03:40 Nucleated RBC % (auto) 0 % 07/30/24 03:40 Nucleated RBCs # 0.0 /100WBC 07/30/24 03:40 Sodium 142 mmol/L (136-145) 07/30/24 03:40 Potassium 5.0 mmol/L (3.5-5.1) 07/30/24 03:40 Chloride 94 mmol/L (98-107) L 07/30/24 03:40 Carbon Dioxide 32 mmol/L (22-29) H 07/30/24 03:40 Anion Gap 21.0 (5-19) H 07/30/24 03:40 BUN 40 mg/dL (6-20) H 07/30/24 03:40 Creatinine 8.2 mg/dL (0.7-1.2) H* 07/30/24 03:40 GFR Calculation 8.1 mL/min (90-130) L 07/30/24 03:40 Glucose 90 mg/dL (65-115) 07/30/24 03:40 POC Glucose 97 mg/dL (70-110) 07/30/24 08:14 Calculated Osmolality 303 mOsm/kg (285-295) H 07/30/24 03:40 Calcium 9.6 mg/dL (8.5-10.5) 07/30/24 03:40 Phosphorus 7.2 mg/dL (2.5-4.5) H 07/30/24 03:40 Magnesium 3.0 mg/dL (1.7-2.3) H 07/30/24 03:40 Total Bilirubin 0.3 mg/dL (0.15-1.2) 07/30/24 03:40 AST 15 U/L (0-40) 07/30/24 03:40 ALT 14 U/L (0-41) 07/30/24 03:40 Alkaline Phosphatase 96 U/L (40-130) 07/30/24 03:40 Total Protein 8.1 g/dL (6.6-8.7) 07/30/24 03:40 Albumin 5.2 g/dL (3.5-5.2) 07/30/24 03:40 Globulin 2.9 g/dL (1.3-4.6) 07/30/24 03:40 Salicylates < 0.3 mg/dL (3-10) L 07/30/24 03:40 Acetaminophen 12.0 ug/mL (10-30) 07/30/24 03:40 Ethyl Alcohol < 10 mg/dL (0-10) 07/30/24 03:40 Discharge Plan Discharge Patient Disposition: Admitted As Inpatient Clinical Impression: Acute anxiety, Suicidal ideation, ESRD on dialysis Condition: Stable Prescriptions: No Action labetalol 200 mg tablet 200 mg PO BID nitroglycerin 0.4 mg tablet, sublingual 0.4 mg sublingual Q5M Rx Instructions: do not exceed 3 doses per episode trazodone 100 mg tablet 100 mg PO QPM Qty: 30 0RF hydralazine 100 mg tablet 100 mg PO BID doxazosin [Cardura] 4 mg tablet 4 mg PO DAILY RenaPlex-D 800 mcg-12.5 mg -2,000 unit tablet 1 tab PO DAILY sevelamer carbonate 800 mg tablet 1,600 mg PO TIDWM zolpidem 5 mg Tablet 5 mg PO BEDTIME 30 Days Qty: 30 1RF aripiprazole 10 mg Tablet 10 mg PO DAILY 30 Days Qty: 30 1RF amlodipine [Norvasc] 5 mg Tablet 5 mg PO BEDTIME allopurinol 100 mg Tablet 100 mg PO DAILY prednisone 5 mg tablet 5 mg PO DAILY tacrolimus 1 mg capsule 2 mg PO BID aripiprazole 5 mg tablet 5 mg PO DAILY citalopram 20 mg tablet 20 mg PO DAILY alprazolam 0.5 mg tablet 0.5 mg PO DAILY PRN (Reason: anxiety) Qty: 10 0RF Referrals: Renetta Cole, EMAIL PRODUCTION SPECIALIST [Primary Care Provider] - Sign Out Sign Out Data: Patient Sign Out occurred on 07/30/24 at 06:41. Patient's care was discussed, and care was transferred from Arturo Lacy DO to Wade Dan DO. Coding Level of Care Code ED Film Examiner for Loida Menon
[2024-07-30] MEDS: LORazepam 2 mg/mL INJ 1 mL 1 MG IM ×2 (03:07→03:52)
--- NOTE | 2024-07-30 03:40 | PC.NURSE ---
pt now stating he wants to kill himself. in room.
[2024-07-30 03:50] LABS: Basophils # 0.1 10^3/uL (0.0-0.1); Basophils % 1.5 %; Eosinophils # 0.4 10^3/uL (0.0-0.8); Eosinophils % 6.9 %; Hematocrit 36.2 % (37-53); Lymphocytes # 0.9 10^3/uL (0.8-4.8); Lymphocytes % 16.8 %; Mean Corpuscular HGB Conc 31.5 g/dL (30-55); Mean Corpuscular Hemoglobin 32.2 pg (27-33); Mean Corpuscular Volume 102.3 fl (82-101); Mean Platelet Volume 10.3 fL (7.4-10.4); Monocytes # 0.7 10^3/uL (0.2-0.9); Monocytes % 12.3 %; Neutrophils # 3.32 10^3/uL (1.8-7.7); Neutrophils % 61.9 %; Nucleated Red Blood Cells % 0 %; Platelet Count 198 10^3/cmm (157-399); Red Blood Count 3.54 10^6/uL (3.85-5.65); Red Cell Distribution Width 14.1 % (12.1-15.1); White Blood Count 5.36 10^3/uL (3.29-11.43)
[2024-07-30 04:10] LABS: Alanine Aminotransferase 14 U/L (0-41); Albumin Level 5.2 g/dL (3.5-5.2); Alcohol Level < 10 mg/dL (0-10); Alkaline Phosphatase 96 U/L (40-130); Aspartate Amino Transferase 15 U/L (0-40); Blood Urea Nitrogen 40 mg/dL (6-20); Calcium 9.6 mg/dL (8.5-10.5); Carbon Dioxide 32 mmol/L (22-29); Chloride 94 mmol/L (98-107); Creatinine Clr Calc Pharmacy 10.4432; Globulin 2.9 g/dL (1.3-4.6); Glomerular Filtration Rate 8.1 mL/min (90-130); Glucose 90 mg/dL (65-115); Osmolality Calculated 303 mOsm/kg (285-295); Phosphorus 7.2 mg/dL (2.5-4.5); Salicylate < 0.3 mg/dL (3-10); Sodium 142 mmol/L (136-145); Total Bilirubin 0.3 mg/dL (0.15-1.2); Total Protein 8.1 g/dL (6.6-8.7)
[2024-07-30 04:14] LABS: Slide Review Slide Review Perform
--- NOTE | 2024-07-30 05:30 | PC.NURSE ---
96 Hour Involuntary Hold Patient Rights have been read to the patient and a copy of the same has been provided to him. Shipwright Renzo Joe was present at bedside at the time of presentation of Rights.
[2024-07-30] MEDS: OLANZapine 10 mg TABLET PO (07:00)
[2024-07-30] MEDS: LORazepam 2 mg/mL INJ 1 mL IM ×2 (07:00→16:57)
--- NOTE | 2024-07-30 07:29 | PC.NURSE ---
ASSUMED CARE OF PT FROM EUGENIA JAMES. PT VISIBLY UPSET AND ANXIOUS IN ROOM. PT SPEAKING IN HIGH PITCHED ON COMPREHENSIBLE SOUNDS. PSA OUTSIDE OF ROOM.
[2024-07-30 08:17] VITALS: BP 143/93; PULSE 70; O2SAT 97
--- NOTE | 2024-07-30 08:18 | PC.NURSE ---
PT REFUSED BREAKFAST DUE TO NOT FEELING HUNGRY. THIS NURSE WENT IN TO PT ROOM TO OBTAIN VITAL SIGNS AND CHECK BLOOD SUGAR DUE TO PT NOT EATING. PT STATES I WISH WEEKENDS COUNTED FOR MY HOLD. THIS NURSE VERBALIZED UNDERSTANDING AND ACKNOWLEDGED PT COMMENT. PT CONTINUED TO VERBALIZE BEING UPSET AND STATES I KNOW THIS PROCESS IS LONG, BUT I CAN'T KEEP LIVING LIKE THIS. SO I NEED TO BE HERE. BUT I CAN'T KEEP FEELING IN THIS WAY. MAYBE THIS MEANS MY TIME IS UP.
[2024-07-30 08:19] LABS: Glucose Point of Care 97 mg/dL (70-110)
[2024-07-30 15:14] VITALS: BP 121/67; PULSE 68; O2SAT 96
[2024-07-30 15:27] VITALS: BP 98/61; PULSE 113; RESP 17; O2SAT 97
[2024-07-30] MEDS: haloperidol 5 mg Tablet PO (16:03)
[2024-07-30] MEDS: hyDROXYzine 25 mg Capsule 50 MG PO (16:03)
[2024-07-30] MEDS: diphenhydrAMINE 50 mg/mL SDV 1mL IM (16:57)
--- NOTE | 2024-07-30 17:08 | PC.NURSE ---
During assessment, patient said to this nurse and to EUGENIA Ann that he is going to kill himself by cutting his fistula. Patient also said that after he is released, he is going to go home and kill himself. Patient pacing back and forth in his room. Attempts to verbally redirect were not successful. Patient fixated on feeling like he doesn't have any point to live any more. Patient also keeps saying that he is having a panic attack and no medications work for him. Patient said that being on the unit increases his anxiety level. Patient given vistaril and haldol by mouth. Patient still pacing room, crying, bumping into the wall. Patient given ativan 2mg IM and benadryl 50mg IM to patient for agitation and panic attack.
--- NOTE | 2024-07-30 17:18 | PC.NURSE ---
1:1 Patient told this nurse and EUGENIA Ann that he is going to kill himself by slitting his fistula. Patient said he is going to bleed out and there is nothing anybody will be able to do about it. Patient also said that he is not going to go to dialysis any longer so that he can . Because of his suicidal plan with access, 1:1 placed
--- NOTE | 2024-07-30 19:30 | P.CONIM_ITS ---
Providers/Reason For Consult 2 Consulting Physician/Specialty*: [facility] Reason for Consult*: ESRD Attending Physician: Zach Marroquin MD Primary Care Provider: Renetta Cole NP History of Present Illness History of Present Illness Vance Sainz is a 24 year old male Patient is a 24-year-old male with past medical history significant for end-stage renal disease on dialysis per Thursday schedule, history of hypertension, prior failed renal transplant, history of depression presented to the emergency department due to anxiety and suicidal ideation. Patient reported that he was going to end his life by cutting his aVF .with the emergency department vital signs are stable, lab data reviewed. Patient is admitted to the hospital due to suicidal ideation and/psychiatric evaluation. Review of Systems 2 Narrative: NEGATIVE Medications/Allergies Home Medications Medication Instructions Recorded Confirmed Last Taken Type labetalol 200 mg tablet 200 mg PO BID 05/10/21 05/27/24 05/26/24 History allopurinol 100 mg tablet 100 mg PO DAILY 02/03/22 07/30/24 1 Day Ago History ~07/29/24 amlodipine 5 mg tablet (Norvasc) 5 mg PO BEDTIME 02/03/22 07/30/24 1 Day Ago History ~07/29/24 doxazosin 4 mg tablet (Cardura) 4 mg PO DAILY 10/28/23 05/27/24 05/26/24 History hydralazine 100 mg tablet 100 mg PO BID 10/28/23 05/27/24 05/26/24 History vit B,C-folic ac 800 mcg-zinc 12.5 1 tab PO DAILY 10/28/23 05/27/24 05/26/24 History mg-selen-D3 2,000 unit-vit E tablet (RenaPlex-D) nitroglycerin 0.4 mg sublingual 0.4 mg sublingual Q5M Chest Pain 12/03/23 05/27/24 Unknown History tablet trazodone 100 mg tablet 100 mg PO QPM #30 tabs 12/03/23 05/27/24 05/26/24 Rx sevelamer carbonate 800 mg tablet 1,600 mg PO TIDWM phosphate binder 04/23/24 05/27/24 05/26/24 History aripiprazole 10 mg tablet 10 mg PO DAILY 30 days #30 tabs 04/26/24 05/27/24 Unknown Rx zolpidem 5 mg tablet 5 mg PO BEDTIME 30 days #30 tabs 04/26/24 05/27/24 05/26/24 Rx aripiprazole 5 mg tablet 5 mg PO DAILY 05/27/24 05/27/24 05/26/24 History citalopram 20 mg tablet 20 mg PO DAILY 05/27/24 05/27/24 05/26/24 History prednisone 5 mg tablet 5 mg PO DAILY 05/27/24 05/27/24 05/26/24 History tacrolimus 1 mg capsule, 2 mg PO BID 05/27/24 05/27/24 05/26/24 History immediate-release alprazolam 0.5 mg tablet 0.5 mg PO DAILY PRN anxiety #10 07/03/24 Unknown Rx tabs allopurinol 100 mg tablet mg 07/30/24 1 Day Ago History ~07/29/24 clonazepam 0.5 mg tablet mg 07/30/24 1 Day Ago History ~07/29/24 clonazepam 0.5 mg tablet mg 07/30/24 1 Day Ago History ~07/29/24 clonazepam 0.5 mg tablet mg 07/30/24 1 Day Ago History ~07/29/24 doxazosin 4 mg tablet mg 07/30/24 1 Day Ago History ~07/29/24 doxazosin 4 mg tablet mg 07/30/24 1 Day Ago History ~07/29/24 mycophenolate mofetil 250 mg mg PO 07/30/24 1 Day Ago History capsule ~07/29/24 mycophenolate mofetil 250 mg mg PO 07/30/24 1 Day Ago History capsule ~07/29/24 olanzapine 10 mg disintegrating mg 07/30/24 1 Day Ago History tablet ~07/29/24 olanzapine 10 mg disintegrating 10 mg PO BEDTIME 07/30/24 07/30/24 Unknown History tablet (Zyprexa Zydis) sevelamer carbonate 800 mg tablet mg 07/30/24 1 Day Ago History ~07/29/24 sevelamer carbonate 800 mg tablet mg 07/30/24 1 Day Ago History ~07/29/24 trazodone 100 mg tablet mg 07/30/24 1 Day Ago History ~07/29/24 zolpidem 5 mg tablet mg 07/30/24 1 Day Ago History ~07/29/24 zolpidem 5 mg tablet mg 07/30/24 1 Day Ago History ~07/29/24 Allergies Allergy/AdvReac Type Severity Reaction Status Date / Time NSAIDS (Non-Steroidal Allergy Severe unable to Verified 07/03/24 17:56 Anti-Inflamma take due to kidney disease grapefruit Allergy Unknown Verified 07/03/24 17:56 sertraline [From Zoloft] Allergy Unknown Verified 07/03/24 17:56 Current Medications Generic Name Dose Route Start Last Admin Trade Name Freq PRN Reason Stop Dose Admin Diphenhydramine HCl 50 mg 07/30/24 15:27 07/30/24 16:57 Diphenhydramine 50 Mg/Ml Sdv 1ml IM 50 mg ONCE PRN Administration Severe Extrapyramidal Symptoms Haloperidol 5 mg 07/30/24 15:27 07/30/24 16:03 Haloperidol 5 Mg Tablet PO 5 mg Q4H PRN Administration AGITATION Hydroxyzine Pamoate 50 mg 07/30/24 15:27 07/30/24 16:03 Hydroxyzine 25 Mg Capsule PO 50 mg Q6H PRN Administration ANXIETY Lorazepam 2 mg 07/30/24 15:27 07/30/24 16:57 Lorazepam 2 Mg/Ml Inj 1 Ml IM 2 mg Q4H PRN Administration Severe Aggression PFSH Acute 2 PFSH: Medical History CKD (chronic kidney disease) stage V requiring chronic dialysis Generalized anxiety disorder Other stimulant dependence, in remission Psychiatric care Problems related to lack of adequate sleep Substance abuse Depression Anxiety Social History Smoking and tobacco/nicotine status: current every day tobacco/nicotine user e- cigarettes E-Cigarette Details: vaporizer device and with nicotine E-cig/vape details: 6 mg and smokeless tobacco Smokeless tobacco user: chewing tobacco Smokeless tobacco details: 1 can/3 days. Quit status (tobacco/nicotine): has tried quititng Number of times tried to quit tobacco: 4 Second hand smoke exposure: No Vitals/I&O/Wt Last Vital Signs Temp 97.6 F 07/30/24 02:48 Pulse 113 H 07/30/24 15:27 Resp 17 07/30/24 15:27 BP 98/61 07/30/24 15:27 Pulse Ox 97 07/30/24 15:27 O2 Del Method Room Air 07/30/24 15:29 Weight last 48 hrs Weight 54.431 kg Physical Exam 2 Narrative: Awake , alert , depressed mood , HEENT s1s2 RRR per report Lungs clear per report no edema Data 07/30/24 03:40 07/30/24 03:40 A&P Assessment and plan (1) ESRD on hemodialysis: 1. End-stage renal disease: MWF schedule, status post dialysis on Thursday, next dialysis with Thursday 2. History of hypertension blood pressure stable, resume home meds 3. History of failed renal transplant , he takes tacrolimus 1 mg twice a day, will continue that. 4. Anemia: RUBA with HD 5. Depression and suicidal ideation, management per psychiatric team Patient evaluated using audiovisual cart. Time spent 40 minutes. Consult Attestations 2 Medical Necessity Statement: per medicine Coding Level of Care Code Acute Code for [facility] Fwd Diagnoses ESRD on hemodialysis N18.6; Z99.2
[2024-07-30 20:19] VITALS: BP 131/87; PULSE 83; RESP 16; O2SAT 97
[2024-07-30] MEDS: trazodone 50 mg Tablet PO (20:29)
[2024-07-30] MEDS: amlodipine 5 mg Tablet PO (20:30)
--- NOTE | 2024-07-30 22:37 | PC.NURSE ---
The patient has a sitter for active SI but when asked at this time he said he was not SI, sitter remains with patient.
[2024-07-31 06:00] VITALS: BP 116/75; PULSE 74; RESP 15; O2SAT 100
--- NOTE | 2024-07-31 06:24 | P.PN_ITS ---
Subjective 2 Subjective: Patient was seen and examined. No nausea vomiting shortness of breath chest pain headaches itching or cramps. No diarrhea Medications: Reviewed: Yes Medication Review Details: Current Medications Acetaminophen (Acetaminophen 325 Mg Tablet) 650 mg PO Q4H PRN PRN Reason: MILD PAIN Allopurinol (Allopurinol 100 Mg Tablet) 100 mg PO DAILY OMAR Alprazolam (Alprazolam 0.5 Mg Tablet) 0.5 mg PO PRN PRN PRN Reason: anxiety Amlodipine Besylate (Amlodipine 5 Mg Tablet) 5 mg PO BEDTIME OMAR Last Admin: 07/30/24 20:30 Dose: 5 mg Benztropine Mesylate (Benztropine 1 Mg Tablet) 1 mg PO BID PRN PRN Reason: Mild Extrapyramidal symptoms Camphor/Menthol/Phenol (Blistex Lip Oint 7 Gm Tube) 1 applic TOPICAL Q1H PRN PRN Reason: DRYNESS Citalopram Hydrobromide (Citalopram 20 Mg Tablet) 10 mg PO DAILY OMAR Clonazepam (Clonazepam 0.5 Mg Tablet) 0.5 mg PO BID OMAR Diphenhydramine HCl (Diphenhydramine 50 Mg/Ml Sdv 1ml) 50 mg IM ONCE PRN PRN Reason: Severe Extrapyramidal Symptoms Last Admin: 07/30/24 16:57 Dose: 50 mg Diphenhydramine HCl (Diphenhydramine 50 Mg/Ml Sdv 1ml) 50 mg IM Q4H PRN PRN Reason: Severe Aggression Doxazosin Mesylate (Doxazosin 4 Mg Tablet) 4 mg PO DAILY [facility] Doxazosin Mesylate (Doxazosin 4 Mg Tablet) 4 mg PO DAILY [facility] Haloperidol (Haloperidol 5 Mg Tablet) 5 mg PO Q4H PRN PRN Reason: AGITATION Last Admin: 07/30/24 16:03 Dose: 5 mg Haloperidol Lactate (Haloperidol Inj 5 Mg/Ml Inj 1 Ml) 5 mg IM Q4H PRN PRN Reason: Severe Aggression Hydroxyzine Pamoate (Hydroxyzine 25 Mg Capsule) 50 mg PO Q6H PRN PRN Reason: ANXIETY Last Admin: 07/30/24 16:03 Dose: 50 mg Loperamide HCl (Loperamide 2 Mg Capsule) 2 mg PO Q6H PRN PRN Reason: DIARRHEA Lorazepam (Lorazepam 2 Mg/Ml Inj 1 Ml) 2 mg IM Q4H PRN PRN Reason: Severe Aggression Last Admin: 07/30/24 16:57 Dose: 2 mg Nicotine (Nicotine 21 Mg Patch) 1 patch TRANSDERMA DAILY PRN PRN Reason: NICOTINE WITHDRAWAL Nicotine Polacrilex (Nicotine 2 Mg Gum) 2 mg BUCCAL Q2H PRN PRN Reason: NICOTINE WITHDRAWAL Non-Formulary Medication (Mycophenolate Mofetil) 250 mg PO BID OMAR Olanzapine (Olanzapine 5 Mg Odt) 5 mg PO Q4H PRN PRN Reason: Agitation/Psychosis Olanzapine (Olanzapine 10 Mg Odt) 10 mg PO BEDTIME OMAR Ondansetron HCl (Ondansetron 4 Mg Tablet) 4 mg PO Q6H PRN PRN Reason: NAUSEA AND VOMITING Sevelamer Carbonate (Sevelamer 800 Mg Tablet) 800 mg PO TIDWM OMAR Trazodone HCl (Trazodone 50 Mg Tablet) 50 mg PO BEDTIME PRN PRN Reason: SLEEP Last Admin: 07/30/24 20:29 Dose: 50 mg Trazodone HCl (Trazodone 100 Mg Tablet) 100 mg PO BEDTIME OMAR Zolpidem Tartrate (Zolpidem 5 Mg Tablet) 5 mg PO BEDTIME OMAR Vitals/I&O/Wt Last Vital Signs Temp 97.6 F 07/30/24 02:48 Pulse 74 07/31/24 06:00 Resp 15 07/31/24 06:00 BP 116/75 07/31/24 06:00 Pulse Ox 100 07/31/24 06:00 O2 Del Method Room Air 07/31/24 06:00 Weight last 48 hrs Weight 53.977 kg Weight 54.431 kg Physical Exam 2 Narrative: Comfortable in bed no apparent distress. HEENT normocephalic atraumatic. Vital signs noted. Neck is supple. Lungs are clear to auscultation. Heart is regular. Abdomen is soft positive bowel sounds. Extremities no edema right upper extremity AV fistula with good thrill and bruit. Neuro awake alert oriented x 3 Data 07/30/24 03:40 07/30/24 03:40 A&P Assessment and plan (1) ESRD on dialysis: 24-year-old gentleman history of ESRD failed renal transplant. History of anxiety history of drug use in the past. Patient here with suicidal ideation. 1. Psych evaluation appreciated. 2. ESRD plan dialysis tomorrow. 3. Blood pressure very well-controlled can hold amlodipine. 4. Hemoglobin acceptable. 5. Renal bone mineral metabolism check PTH and increase Renvela as phosphorus is elevated. If patient's potassium rises please give me a call in case needs dialysis today versus tomorrow. Plan see above Attestations 2 Medical Necessity Statement*: esrd, suicidial ideation Time Spent in Patient Care: 16 - 35 minutes (>than 50% of time sp ent in counselling and/or direct pt care on unit) . Coding Level of Care Code Acute Code for [facility] Fwd Diagnoses ESRD on dialysis N18.6; Z99.2
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
[2024-07-31] MEDS: CLONazepam 0.5 mg Tablet PO ×2 (08:59→17:28)
[2024-07-31] MEDS: citalopram 20 mg Tablet 10 MG PO (08:59)
[2024-07-31] MEDS: doxazosin 4 mg Tablet PO (08:59)
[2024-07-31] MEDS: allopurinol 100 mg Tablet PO (09:00)
[2024-07-31 09:25] LABS: Anion Gap 22.4 (5-19); Blood Urea Nitrogen 53 mg/dL (6-20); Carbon Dioxide 26 mmol/L (22-29); Chloride 98 mmol/L (98-107); Creatinine Clr Calc Pharmacy 7.6198; Glomerular Filtration Rate 5.7 mL/min (90-130); Glucose 71 mg/dL (65-115); Osmolality Calculated 305 mOsm/kg (285-295); Potassium 5.4 mmol/L (3.5-5.1); Sodium 141 mmol/L (136-145); Uric Acid 6.9 mg/dL (3.4-7.0)
--- NOTE | 2024-07-31 09:34 | PC.NURSE ---
This nurse notified by lab of critical creatinine level 11.2. This nurse notified Dr. Marroquin. Dr. Reyes Wilson also notified of critical creatinine level. Dr. Wilson said that this was fine. Dr. Wilson instructed this nurse to notify him of patient's potassium level to determine whether dialysis should be completed today verses tomorrow.
--- NOTE | 2024-07-31 09:38 | PC.NURSE ---
Shift assessment During shift assessment, patient denies suicidal ideation, homicidal ideation, and AVH. Patient rates anxiety 04/27 and depression /. Patient said that he wants to sleep the day away. Patient stated that he does not remember making the statements about wanting to slit his fistula to end his life. Patient denies these thoughts at this time. Patient calm during assessment. Sitter present.
[2024-07-31 09:49] LABS: Hepatitis B Surface Antigen Non-Reactive (Nonreactive); Hepatitis C Virus Antibody Non-Reactive (Nonreactive)
--- NOTE | 2024-07-31 10:19 | PC.NURSE ---
Attempted to notify nephrology Dr. Rankin of patient's potassium level, 5.4. Left voicemail for to return call.
--- NOTE | 2024-07-31 10:26 | PC.NURSE ---
Tiffanyyexalate Dr. Wilson returned phone call at approximately 1025. Telephone orders given to this nurse for kayexalate 30 grams by mouth, one time order. This nurse read back the order; order placed.
[2024-07-31] MEDS: sodium polystyrene sulfonate 15 gm/60 mL Btl 30 GM PO (11:17)
[2024-07-31] MEDS: sevelamer 800 mg Tablet 2400 MG PO ×2 (12:34→17:31)
[2024-07-31 14:00] VITALS: BP 129/81; PULSE 85; RESP 16; O2SAT 98
[2024-07-31] MEDS: loperamide 2 mg Capsule PO (14:32)
--- NOTE | 2024-07-31 19:07 | PC.NURSE ---
Per Dr. Marroquin order, patient taken off of 1:[address] Marroquin stated that he does not feel as though patient is a risk to self.
[2024-07-31] MEDS: trazodone 100 mg Tablet PO (19:44)
[2024-07-31] MEDS: zolpidem 5 mg Tablet PO (19:44)
[2024-07-31] MEDS: OLANZapine 10 mg ODT PO (19:45)
[2024-07-31] MEDS: divalproex DR 250 mg Tablet PO (20:39)
[2024-07-31 21:12] VITALS: BP 144/83; PULSE 89; RESP 18; TEMP 36.6; O2SAT 97
[2024-08-01] MEDS: propranolol 20 mg Tablet PO ×3 (00:35→15:43)
[2024-08-01 06:00] VITALS: BP 138/86; PULSE 63; RESP 18; TEMP 36.9; O2SAT 99
--- NOTE | 2024-08-01 06:58 | P.PN_ITS ---
Subjective 2 Subjective: feels better. denies further suicidial iseation. is tired. no n/v/f/c/bro/d Medications: Reviewed: Yes Medication Review Details: Current Medications Acetaminophen (Acetaminophen 325 Mg Tablet) 650 mg PO Q4H PRN PRN Reason: MILD PAIN Allopurinol (Allopurinol 100 Mg Tablet) 100 mg PO DAILY [facility] Last Admin: 07/31/24 09:00 Dose: 100 mg Benztropine Mesylate (Benztropine 1 Mg Tablet) 1 mg PO BID PRN PRN Reason: Mild Extrapyramidal symptoms Camphor/Menthol/Phenol (Blistex Lip Oint 7 Gm Tube) 1 applic TOPICAL Q1H PRN PRN Reason: DRYNESS Citalopram Hydrobromide (Citalopram 20 Mg Tablet) 10 mg PO DAILY [facility] Last Admin: 07/31/24 08:59 Dose: 10 mg Diphenhydramine HCl (Diphenhydramine 50 Mg/Ml Sdv 1ml) 50 mg IM ONCE PRN PRN Reason: Severe Extrapyramidal Symptoms Last Admin: 07/30/24 16:57 Dose: 50 mg Diphenhydramine HCl (Diphenhydramine 50 Mg/Ml Sdv 1ml) 50 mg IM Q4H PRN PRN Reason: Severe Aggression Divalproex Sodium (Divalproex Dr 250 Mg Tablet) 250 mg PO BID [facility] Last Admin: 07/31/24 20:39 Dose: 250 mg Doxazosin Mesylate (Doxazosin 4 Mg Tablet) 4 mg PO DAILY [facility] Last Admin: 07/31/24 09:09 Dose: Not Given Haloperidol (Haloperidol 5 Mg Tablet) 5 mg PO Q4H PRN PRN Reason: AGITATION Last Admin: 07/30/24 16:03 Dose: 5 mg Haloperidol Lactate (Haloperidol Inj 5 Mg/Ml Inj 1 Ml) 5 mg IM Q4H PRN PRN Reason: Severe Aggression Labetalol HCl (Labetalol 200 Mg Tablet) 200 mg PO BID [facility] Loperamide HCl (Loperamide 2 Mg Capsule) 2 mg PO Q6H PRN PRN Reason: DIARRHEA Last Admin: 07/31/24 14:32 Dose: 2 mg Lorazepam (Lorazepam 2 Mg/Ml Inj 1 Ml) 2 mg IM Q4H PRN PRN Reason: Severe Aggression Last Admin: 07/30/24 16:57 Dose: 2 mg Multivitamins (D-Yjualbb-Roepvtg C Tablet) 1 each PO DAILY [facility] Mycophenolate Mofetil (Mycophenolate Mofetil 500 Mg Tablet) 250 mg PO BID [facility] Last Admin: 07/31/24 19:44 Dose: 250 mg Nicotine (Nicotine 21 Mg Patch) 1 patch TRANSDERMA DAILY PRN PRN Reason: NICOTINE WITHDRAWAL Nicotine Polacrilex (Nicotine 2 Mg Gum) 2 mg BUCCAL Q2H PRN PRN Reason: NICOTINE WITHDRAWAL Olanzapine (Olanzapine 5 Mg Odt) 5 mg PO Q4H PRN PRN Reason: Agitation/Psychosis Olanzapine (Olanzapine 10 Mg Odt) 10 mg PO BEDTIME [facility] Last Admin: 07/31/24 19:45 Dose: 10 mg Ondansetron HCl (Ondansetron 4 Mg Tablet) 4 mg PO Q6H PRN PRN Reason: NAUSEA AND VOMITING Propranolol HCl (Propranolol 20 Mg Tablet) 20 mg PO TID PRN PRN Reason: ANXIETY Last Admin: 08/01/24 00:35 Dose: 20 mg Sevelamer Carbonate (Sevelamer 800 Mg Tablet) 2,400 mg PO TIDWM [facility] Last Admin: 07/31/24 17:31 Dose: 2,400 mg Tacrolimus (Tacrolimus 0.5 Mg Capsule) 1 mg PO BID [facility] Trazodone HCl (Trazodone 50 Mg Tablet) 50 mg PO BEDTIME PRN PRN Reason: SLEEP Last Admin: 07/30/24 20:29 Dose: 50 mg Trazodone HCl (Trazodone 100 Mg Tablet) 100 mg PO BEDTIME [facility] Last Admin: 07/31/24 19:44 Dose: 100 mg Zolpidem Tartrate (Zolpidem 5 Mg Tablet) 5 mg PO BEDTIME [facility] Last Admin: 07/31/24 19:44 Dose: 5 mg Vitals/I&O/Wt Last Vital Signs Temp 98.4 F 08/01/24 06:00 Pulse 63 08/01/24 06:00 Resp 18 08/01/24 06:00 BP 138/86 08/01/24 06:00 Pulse Ox 99 08/01/24 06:00 O2 Del Method Room Air 07/31/24 06:00 Weight last 48 hrs Weight 53.977 kg Physical Exam 2 Narrative: Comfortable in bed no apparent distress. HEENT normocephalic atraumatic. Vital signs noted. Neck is supple. Lungs are clear to auscultation. Heart is regular. Abdomen is soft positive bowel sounds. Extremities no edema right upper extremity AV fistula with good thrill and bruit. Neuro awake alert oriented x 3 Data 07/30/24 03:40 07/31/24 08:44 A&P Assessment and plan (1) ESRD on dialysis: 24-year-old gentleman history of ESRD failed renal transplant. History of anxiety history of drug use in the past. Patient here with suicidal ideation. 1. Psych evaluation appreciated. 2. ESRD plan dialysis today phos binders -check tacrolimus level prior to am dose 3. Blood pressure very well-controlled can hold amlodipine. 4. Hemoglobin acceptable. 5. Renal bone mineral metabolism check PTH and increase Renvela as phosphorus is elevated. 6. renal diet seen and examined w/ RN- telehealth visit using A/V equipement- RN examined pt. Plan see above Attestations 2 Medical Necessity Statement*: per psych Time Spent in Patient Care: 16 - 35 minutes (>than 50% of time sp ent in counselling and/or direct pt care on unit) . Coding Level of Care Code Acute Code for Chg Fwd Diagnoses ESRD on dialysis N18.6; Z99.2
[2024-08-01] MEDS: OLANZapine 5 mg ODT PO (08:28)
[2024-08-01] MEDS: nicotine 21 mg Patch 1 PATCH TRANSDERMA (08:28)
[2024-08-01 09:55] LABS: Basophils # 0.1 10^3/uL (0.0-0.1); Basophils % 1.2 %; Eosinophils # 0.3 10^3/uL (0.0-0.8); Eosinophils % 6.2 %; Hematocrit 30.2 % (37-53); Lymphocytes % 19.3 %; Mean Corpuscular HGB Conc 33.1 g/dL (30-55); Mean Corpuscular Volume 99.7 fl (82-101); Mean Platelet Volume 9.8 fL (7.4-10.4); Monocytes # 0.8 10^3/uL (0.2-0.9); Monocytes % 15.7 %; Neutrophils # 2.88 10^3/uL (1.8-7.7); Neutrophils % 57.2 %; Nucleated Red Blood Cells % 0 %; Platelet Count 157 10^3/cmm (157-399); Red Blood Count 3.03 10^6/uL (3.85-5.65); Red Cell Distribution Width 13.7 % (12.1-15.1); White Blood Count 5.03 10^3/uL (3.29-11.43)
[2024-08-01 10:19] LABS: Calcium 9.2 mg/dL (8.5-10.5)
[2024-08-01] MEDS: acetaminophen 325 mg Tablet 650 MG PO (10:22)
[2024-08-01 10:23] LABS: Parathyroid Hormone 247.8 pg/mL (15-65)
[2024-08-01 10:37] LABS: 25 Hydroxy Vitamin D 56 ng/mL (30-100); Alanine Aminotransferase 12 U/L (0-41); Albumin Level 4.2 g/dL (3.5-5.2); Alkaline Phosphatase 72 U/L (40-130); Anion Gap 23.4 (5-19); Aspartate Amino Transferase 20 U/L (0-40); Blood Urea Nitrogen 63 mg/dL (6-20); Carbon Dioxide 29 mmol/L (22-29); Chloride 92 mmol/L (98-107); Glomerular Filtration Rate 4.5 mL/min (90-130); Glucose 96 mg/dL (65-115); Osmolality Calculated 308 mOsm/kg (285-295); Potassium 4.4 mmol/L (3.5-5.1); Sodium 140 mmol/L (136-145); Thyroid Stimulating Hormone 0.27 uIU/mL (0.27-4.20); Total Bilirubin 0.2 mg/dL (0.15-1.2); Total Protein 6.2 g/dL (6.6-8.7)
[2024-08-01 10:49] LABS: Creatinine Clr Calc Pharmacy 6.2293; Phosphorus 10.2 mg/dL (2.5-4.5)
[2024-08-01] MEDS: diphenhydrAMINE 50 mg/mL SDV 1mL IM (11:14)
[2024-08-01] MEDS: LORazepam 2 mg/mL INJ 1 mL IM (12:41)
--- NOTE | 2024-08-01 12:46 | PC.NURSE ---
I received a call from Sharri Carey blanket maker and she states that she received a call from Sunshine Dao, coin wrapping machine operator stating that patient was requesting anxiety medication during dialysis. I presented to dialysis suite and discussed medication options with patient and Sunshine Dao in regards to being compatible with dialysis. Patient verbalized increased anxiety d/t dialysis procedure and it was decided between him, myself, and Sunshine Dao to administer Ativan PRN as ordered. I obtained medication from the [facility] and noted it was IM route. I called and spoke with Adam pharmacist and inquired if this could be administered via dialysis port. He stated yes, the formula was the same. I attempted to scan the medication, however the scanner didn't connect. I manually administered the medication while verifying patient's name and and comparing to the order. I observed as Sunshine Dao administered the medication via dialysis port. Patient tolerated procedure well. I called and spoke with Sunshine Goodman RN and informed her of the information noted above. She verbalizes understanding.
--- NOTE | 2024-08-01 12:55 | PC.NURSE ---
This RN was contacted by lab at approximately some time between [id number] with critical labs on patient's creatinine and phosphorus levels. Dr. Marroquin was immediately notified. No further orders at this time as patient has dialysis scheduled for today.
[2024-08-01 14:00] VITALS: BP 149/87; PULSE 80; RESP 16; TEMP 36.6; O2SAT 97
--- NOTE | 2024-08-01 15:06 | P.NPUPN_ITS ---
Subjective NPU 2 Subjective: Patient presented today reporting that he is feeling a little better after having a pretty bad night. He reports getting fairly anxious prior to dialysis. He reports being hopeful that the medication continues to assist him as he reports having thoughts today about things he might do when he gets home which has not been the case recently as far as where his mind drifts to. He denies any side effects to the medication and we discussed the possible increase in the Depakote tomorrow. We also discussed the possibility of considering an antidepressant but we would take 1 day at a time. Mental Status Exam 2 MSE Comments: This is a short, diminutive, white male, in hospital scrubs on with adequate grooming and eye contact. No abnormal movements except for psychomotor retardation. Cooperative with exam in moderate distress. Some tattoos on exposed skin and noted torturous port in his right forearm. Speech was decreased rate and volume with some significant pauses possibly related to his tearfulness. Mood described as possibly less depressed; affect congruent and less tearful. Thought process, linear and at times organized. Thought content: patient denied homicidal but endorsed suicidal ideation, there were no delusions reported or noted, patient denied any auditory or visual hallucinations. Attention and concentration appear intact, and memory appear mostly reliable but none were formally tested. He is alert and oriented times 3. Insight and judgment are limited versus impaired, impulse control limited versus impaired. Vitals/I&O/Wt Last Vital Signs Temp 98.4 F 08/01/24 06:00 Pulse 63 08/01/24 06:00 Resp 18 08/01/24 06:00 BP 138/86 08/01/24 06:00 Pulse Ox 99 08/01/24 06:00 O2 Del Method Room Air 07/31/24 06:00 Weight last 48 hrs Weight 53.977 kg Data NPU 08/01/24 09:32 08/01/24 09:32 A&P Assessment and plan (1) Other stimulant dependence, in remission: (2) Generalized anxiety disorder: (3) Acute anxiety: (4) Suicidal ideation: (5) Major depressive disorder, recurrent: (6) ESRD on hemodialysis: Plan This is a 24-year-old, white male, with a long history of trauma, post-traumatic stress disorder, addiction, and loss, who presents struggling with his depression but without psychosis and paranoia on this visit really struggling with finding a purpose to live as he is frustrated with his continual anxiety and depression. He has a history of addiction but denies recent problems with that. RECOMMENDATION AND PLAN: 1. Continue current medication. Started Depakote 250 mg p.o. twice daily. Consider a dialysis appropriate antidepressant. Also added propranolol for anxiety with the consideration of a benzodiazepine if that is ineffective. We also reviewed the possibility of Spravato or TMS as an alternative. Likely increased Depakote to 500 mg p.o. twice daily tomorrow. 2. Encourage individual, group, and milieu therapy. 3. Discontinue supposed to be one-to-one and placed on every 15 minute checks for safety. 4. Encourage sober living treatment after discharge at the highest level care to which he is willing to commit. Involuntary Hold Information 2 96 Hour Hold: 96 Hour Involuntary Admission: Yes 96 Hour Hold Ending Date: 08/05/24 96 Hour Hold Ending Time: 00:01 Attestations NPU 2 Medical Necessity Statement*: Inpatient hospitalization is medically necessary and the clinically appropriate intervention, at this time. We will monitor medications and make changes as indicated. His likely length of stay is 3 -6 days. Coding Level of Care Code Acute Code for Chg Fwd Diagnoses Other stimulant dependence, in remission F15.21 Generalized anxiety disorder F41.1 Acute anxiety F41.9 Suicidal ideation R45.851 Major depressive disorder, recurrent F33.9 ESRD on hemodialysis N18.6; Z99.2
[2024-08-01] MEDS: divalproex DR 250 mg Tablet PO ×2 (15:33→18:39)
[2024-08-01] MEDS: doxazosin 4 mg Tablet PO (15:33)
[2024-08-01] MEDS: b-complex-vitamin c Tablet 1 EACH PO (15:33)
[2024-08-01] MEDS: citalopram 20 mg Tablet 10 MG PO (15:34)
[2024-08-01] MEDS: labetalol 200 mg Tablet PO ×2 (15:34→18:39)
[2024-08-01] MEDS: allopurinol 100 mg Tablet PO (15:34)
[2024-08-01] MEDS: tacrolimus 0.5 mg Capsule 1 MG PO ×2 (15:34→18:38)
[2024-08-01 18:10] VITALS: BP 156/88; BP 160/115; PULSE 74; PULSE 76; RESP 18; TEMP 36.8
--- NOTE | 2024-08-01 18:43 | PC.NURSE ---
Patient refused cellcept and stated he didn't believe he needed to be taking this any longer. Patient also refused sevelamer because he says there was not much phosphorus in the dinner tonight. Importance of medication stressed to patient. Continued to refuse.
[2024-08-01] MEDS: OLANZapine 10 mg ODT PO (19:52)
[2024-08-01] MEDS: zolpidem 5 mg Tablet PO (19:52)
[2024-08-01] MEDS: trazodone 100 mg Tablet PO (19:52)
[2024-08-01 21:03] VITALS: BP 109/75; PULSE 105; RESP 18; TEMP 37.1; O2SAT 98
[2024-08-02 06:00] VITALS: BP 122/75; PULSE 63; RESP 16; TEMP 36.6; O2SAT 97
--- NOTE | 2024-08-02 07:59 | P.NPUPN_ITS ---
Subjective NPU 2 Subjective: Patient presented today reporting that he is doing better. He reports that he is feeling more optimistic and he feels the medication is helping. He reports that he is tolerating the medication without any side effects that are specific. We discussed seeing how he is feeling after his dialysis tomorrow. Mental Status Exam 2 MSE Comments: This is a short, diminutive, white male, in hospital scrubs on with adequate grooming and eye contact. No abnormal movements except for psychomotor retardation. Cooperative with exam in moderate distress. Some tattoos on exposed skin and noted torturous port in his right forearm. Speech was decreased rate and volume with some significant pauses possibly related to his tearfulness. Mood described as possibly less depressed; affect congruent and less tearful. Thought process, linear and at times organized. Thought content: patient denied homicidal but endorsed suicidal ideation, there were no delusions reported or noted, patient denied any auditory or visual hallucinations. Attention and concentration appear intact, and memory appear mostly reliable but none were formally tested. He is alert and oriented times 3. Insight and judgment are limited versus impaired, impulse control limited versus impaired. Vitals/I&O/Wt Last Vital Signs Temp 97.9 F 08/02/24 06:00 Pulse 63 08/02/24 06:00 Resp 16 08/02/24 06:00 BP 122/75 08/02/24 06:00 Pulse Ox 97 08/02/24 06:00 O2 Del Method Room Air 08/01/24 21:03 08/01/24 08/02/24 08/02/24 22:59 06:59 14:59 Intake Total 500 / 500 Output Total 2177 / 2177 Balance -1677 / -1677 Weight last 48 hrs Weight 0 g Data NPU 08/02/24 08:39 08/02/24 08:39 A&P Assessment and plan (1) Other stimulant dependence, in remission: (2) Generalized anxiety disorder: (3) Acute anxiety: (4) Suicidal ideation: (5) Major depressive disorder, recurrent: (6) ESRD on hemodialysis: Plan This is a 24-year-old, white male, with a long history of trauma, post-traumatic stress disorder, addiction, and loss, who presents struggling with his depression but without psychosis and paranoia on this visit really struggling with finding a purpose to live as he is frustrated with his continual anxiety and depression. He has a history of addiction but denies recent problems with that. RECOMMENDATION AND PLAN: 1. Continue current medication. Started Depakote 250 mg p.o. twice daily. Consider a dialysis appropriate antidepressant. Also added propranolol for anxiety with the consideration of a benzodiazepine if that is ineffective. We also reviewed the possibility of Spravato or TMS as an alternative. Increase Depakote to 500 mg p.o. twice daily. 2. Encourage individual, group, and milieu therapy. 3. Discontinue supposed to be one-to-one and placed on every 15 minute checks for safety. 4. Encourage sober living treatment after discharge at the highest level care to which he is willing to commit. Involuntary Hold Information 2 96 Hour Hold: 96 Hour Involuntary Admission: Yes 96 Hour Hold Ending Date: 08/05/24 96 Hour Hold Ending Time: 00:01 Attestations NPU 2 Medical Necessity Statement*: Inpatient hospitalization is medically necessary and the clinically appropriate intervention, at this time. We will monitor medications and make changes as indicated. His likely length of stay is 2-5 days. Coding Level of Care Code Acute Code for Chg Fwd Diagnoses Other stimulant dependence, in remission F15.21 Generalized anxiety disorder F41.1 Acute anxiety F41.9 Suicidal ideation R45.851 Major depressive disorder, recurrent F33.9 ESRD on hemodialysis N18.6; Z99.2
--- NOTE | 2024-08-02 08:05 | PM.PN ---
Subjective Subjective: seen and examined. feels well. not taking his renvela Medications: Reviewed: Yes Medication Review Details: Current Medications Acetaminophen (Acetaminophen 325 Mg Tablet) 650 mg PO Q4H PRN PRN Reason: MILD PAIN Last Admin: 08/01/24 10:22 Dose: 650 mg Allopurinol (Allopurinol 100 Mg Tablet) 100 mg PO DAILY [facility] Last Admin: 08/01/24 15:34 Dose: 100 mg Benztropine Mesylate (Benztropine 1 Mg Tablet) 1 mg PO BID PRN PRN Reason: Mild Extrapyramidal symptoms Camphor/Menthol/Phenol (Blistex Lip Oint 7 Gm Tube) 1 applic TOPICAL Q1H PRN PRN Reason: DRYNESS Citalopram Hydrobromide (Citalopram 20 Mg Tablet) 10 mg PO DAILY [facility] Last Admin: 08/01/24 15:34 Dose: 10 mg Diphenhydramine HCl (Diphenhydramine 50 Mg/Ml Sdv 1ml) 50 mg IM ONCE PRN PRN Reason: Severe Extrapyramidal Symptoms Last Admin: 07/30/24 16:57 Dose: 50 mg Diphenhydramine HCl (Diphenhydramine 50 Mg/Ml Sdv 1ml) 50 mg IM Q4H PRN PRN Reason: Severe Aggression Last Admin: 08/01/24 11:14 Dose: 50 mg Divalproex Sodium (Divalproex Dr 250 Mg Tablet) 250 mg PO BID [facility] Last Admin: 08/01/24 18:39 Dose: 250 mg Doxazosin Mesylate (Doxazosin 4 Mg Tablet) 4 mg PO DAILY [facility] Last Admin: 08/01/24 15:33 Dose: 4 mg Haloperidol (Haloperidol 5 Mg Tablet) 5 mg PO Q4H PRN PRN Reason: AGITATION Last Admin: 07/30/24 16:03 Dose: 5 mg Haloperidol Lactate (Haloperidol Inj 5 Mg/Ml Inj 1 Ml) 5 mg IM Q4H PRN PRN Reason: Severe Aggression Labetalol HCl (Labetalol 200 Mg Tablet) 200 mg PO BID [facility] Last Admin: 08/01/24 18:39 Dose: 200 mg Loperamide HCl (Loperamide 2 Mg Capsule) 2 mg PO Q6H PRN PRN Reason: DIARRHEA Last Admin: 07/31/24 14:32 Dose: 2 mg Lorazepam (Lorazepam 2 Mg/Ml Inj 1 Ml) 2 mg IM Q4H PRN PRN Reason: Severe Aggression Last Admin: 08/01/24 12:41 Dose: 2 mg Multivitamins (R-Asgbjtk-Gngkpci C Tablet) 1 each PO DAILY [facility] Last Admin: 08/01/24 15:33 Dose: 1 each Nicotine (Nicotine 21 Mg Patch) 1 patch TRANSDERMA DAILY PRN PRN Reason: NICOTINE WITHDRAWAL Last Admin: 08/01/24 08:28 Dose: 1 patch Nicotine Polacrilex (Nicotine 2 Mg Gum) 2 mg BUCCAL Q2H PRN PRN Reason: NICOTINE WITHDRAWAL Olanzapine (Olanzapine 5 Mg Odt) 5 mg PO Q4H PRN PRN Reason: Agitation/Psychosis Last Admin: 08/01/24 08:28 Dose: 5 mg Olanzapine (Olanzapine 10 Mg Odt) 10 mg PO BEDTIME [facility] Last Admin: 08/01/24 19:52 Dose: 10 mg Ondansetron HCl (Ondansetron 4 Mg Tablet) 4 mg PO Q6H PRN PRN Reason: NAUSEA AND VOMITING Propranolol HCl (Propranolol 20 Mg Tablet) 20 mg PO TID PRN PRN Reason: ANXIETY Last Admin: 08/01/24 15:43 Dose: 20 mg Sevelamer Carbonate (Sevelamer 800 Mg Tablet) 2,400 mg PO TIDWM [facility] Last Admin: 08/01/24 18:42 Dose: Not Given Tacrolimus (Tacrolimus 0.5 Mg Capsule) 1 mg PO BID [facility] Last Admin: 08/01/24 18:38 Dose: 1 mg Trazodone HCl (Trazodone 50 Mg Tablet) 50 mg PO BEDTIME PRN PRN Reason: SLEEP Last Admin: 07/30/24 20:29 Dose: 50 mg Trazodone HCl (Trazodone 100 Mg Tablet) 100 mg PO BEDTIME [facility] Last Admin: 08/01/24 19:52 Dose: 100 mg Zolpidem Tartrate (Zolpidem 5 Mg Tablet) 5 mg PO BEDTIME [facility] Last Admin: 08/01/24 19:52 Dose: 5 mg Vitals/I&O/Wt Last Vital Signs Temp 97.9 F 08/02/24 06:00 Pulse 63 08/02/24 06:00 Resp 16 08/02/24 06:00 BP 122/75 08/02/24 06:00 Pulse Ox 97 08/02/24 06:00 O2 Del Method Room Air 08/01/24 21:03 08/01/24 08/02/24 08/02/24 22:59 06:59 14:59 Intake Total 500 / 500 Output Total 2177 / 2177 Balance -1677 / -1677 Weight last 48 hrs Weight 0 g Physical Exam Narrative: Comfortable in bed no apparent distress. HEENT normocephalic atraumatic. Vital signs noted. Neck is supple. Lungs are clear to auscultation. Heart is regular. Abdomen is soft positive bowel sounds. Extremities no edema right upper extremity AV fistula with good thrill and bruit. Neuro awake alert oriented x 3 Data 08/01/24 09:32 08/01/24 09:32 A&P Assessment and plan (1) ESRD on dialysis: 24-year-old gentleman history of ESRD failed renal transplant. History of anxiety history of drug use in the past. Patient here with suicidal ideation. 1. Psych evaluation appreciated. 2. ESRD - thu phos binders -check tacrolimus level prior to am dose- taken 08-01-24 await results 3. Blood pressure very well-controlled 4. Hemoglobin acceptable. check iron studies 5. Renal bone mineral metabolism PTH 247. await vit d and increase Renvela as phosphorus is elevated. 6. renal diet hd tomorrow seen and examined w/ RN- telehealth visit using A/V equipement- RN examined pt. Plan see above Attestations Medical Necessity Statement*: per psych Time Spent in Patient Care: 16 - 35 minutes (>than 50% of time spent in counselling and/or direct pt care on unit). Coding Level of Care Code Acute Code for Chg Fwd Diagnoses ESRD on dialysis N18.6; Z99.2
[2024-08-02] MEDS: allopurinol 100 mg Tablet PO (08:24)
[2024-08-02] MEDS: citalopram 20 mg Tablet 10 MG PO (08:24)
[2024-08-02] MEDS: sevelamer 800 mg Tablet 2400 MG PO ×2 (08:24→17:30)
[2024-08-02] MEDS: tacrolimus 0.5 mg Capsule 1 MG PO ×2 (08:25→17:30)
[2024-08-02] MEDS: divalproex DR 250 mg Tablet PO (08:25)
[2024-08-02] MEDS: b-complex-vitamin c Tablet 1 EACH PO (08:25)
[2024-08-02] MEDS: labetalol 200 mg Tablet PO ×2 (08:25→17:31)
[2024-08-02] MEDS: OLANZapine 5 mg ODT PO (08:32)
[2024-08-02 08:51] LABS: Basophils # 0.1 10^3/uL (0.0-0.1); Basophils % 1.4 %; Eosinophils # 0.3 10^3/uL (0.0-0.8); Eosinophils % 6.4 %; Hematocrit 37.5 % (37-53); Lymphocytes # 1.1 10^3/uL (0.8-4.8); Mean Corpuscular HGB Conc 32.5 g/dL (30-55); Mean Corpuscular Hemoglobin 33.2 pg (27-33); Mean Corpuscular Volume 101.9 fl (82-101); Mean Platelet Volume 9.5 fL (7.4-10.4); Monocytes # 0.8 10^3/uL (0.2-0.9); Monocytes % 16.6 %; Neutrophils # 2.58 10^3/uL (1.8-7.7); Nucleated Red Blood Cells % 0 %; Platelet Count 181 10^3/cmm (157-399); Red Blood Count 3.68 10^6/uL (3.85-5.65); Red Cell Distribution Width 13.9 % (12.1-15.1); White Blood Count 4.87 10^3/uL (3.29-11.43)
[2024-08-02 09:10] LABS: Alanine Aminotransferase 13 U/L (0-41); Albumin Level 4.9 g/dL (3.5-5.2); Alkaline Phosphatase 85 U/L (40-130); Anion Gap 23.8 (5-19); Aspartate Amino Transferase 25 U/L (0-40); Blood Urea Nitrogen 32 mg/dL (6-20); Calcium 9.9 mg/dL (8.5-10.5); Carbon Dioxide 25 mmol/L (22-29); Chloride 95 mmol/L (98-107); Creatinine Clr Calc Pharmacy 0; Globulin 2.4 g/dL (1.3-4.6); Glomerular Filtration Rate 7.8 mL/min (90-130); Glucose 138 mg/dL (65-115); Magnesium 2.7 mg/dL (1.7-2.3); Osmolality Calculated 297 mOsm/kg (285-295); Phosphorus 7.5 mg/dL (2.5-4.5); Potassium 4.8 mmol/L (3.5-5.1); Sodium 139 mmol/L (136-145); Total Bilirubin 0.3 mg/dL (0.15-1.2); Total Protein 7.3 g/dL (6.6-8.7)
[2024-08-02 09:31] LABS: Iron 89 ug/dL (59-158); Percent Saturation 45.8 % (20-50); Total Iron Binding Capacity 194 mcg/dl; Unsaturated Iron Binding 105 ug/dL (112-347)
[2024-08-02 09:55] LABS: Ferritin > 1000 ng/mL (30-400)
[2024-08-02 14:00] VITALS: BP 102/68; PULSE 69; RESP 16; TEMP 36.5; O2SAT 98
[2024-08-02] MEDS: divalproex DR 250 mg Tablet 500 MG PO (17:30)
[2024-08-02 19:29] VITALS: BP 115/74; PULSE 76; RESP 16; TEMP 36.6; O2SAT 98
[2024-08-02] MEDS: OLANZapine 10 mg ODT PO (19:37)
[2024-08-02] MEDS: trazodone 100 mg Tablet PO (19:37)
[2024-08-02] MEDS: zolpidem 5 mg Tablet PO (19:38)
[2024-08-03] MEDS: OLANZapine 5 mg ODT PO ×2 (02:26→08:31)
[2024-08-03] MEDS: haloperidol 5 mg Tablet PO (03:30)
[2024-08-03 06:00] VITALS: BP 117/77; PULSE 75; RESP 16; TEMP 36.6; O2SAT 98
--- NOTE | 2024-08-03 07:13 | P.PN_ITS ---
Subjective 2 Subjective: no new c/o Medications: Reviewed: Yes Vitals/I&O/Wt Last Vital Signs Temp 97.8 F 08/03/24 06:00 Pulse 75 08/03/24 06:00 Resp 16 08/03/24 06:00 BP 117/77 08/03/24 06:00 Pulse Ox 98 08/03/24 06:00 O2 Del Method Room Air 08/03/24 06:00 Weight last 48 hrs Weight 0 g Physical Exam 2 Narrative: Comfortable in bed no apparent distress. HEENT normocephalic atraumatic. Vital signs noted. Neck is supple. Lungs are clear to auscultation. Heart is regular. Abdomen is soft positive bowel sounds. Extremities no edema right upper extremity AV fistula with good thrill and bruit. Neuro awake alert oriented x 3 Data 08/03/24 08:21 08/03/24 08:21 A&P Assessment and plan (1) ESRD on dialysis: 24-year-old gentleman history of ESRD failed renal transplant. History of anxiety history of drug use in the past. Patient here with suicidal ideation. 1. Psych evaluation appreciated. 2. ESRD - thu phos binders -check tacrolimus level prior to am dose- taken 08-01-24 await results 3. Blood pressure very well-controlled 4. Hemoglobin acceptable. check iron studies 5. Renal bone mineral metabolism PTH 247. await vit d and increase Renvela as phosphorus is elevated. 6. renal diet seen and examined w/ RN- telehealth visit using A/V equipement- RN examined pt. Plan see above Attestations 2 Medical Necessity Statement*: per anju Coding Level of Care Code Acute Code for Chg Fwd Diagnoses ESRD on dialysis N18.6; Z99.2
--- NOTE | 2024-08-03 07:26 | P.NPUPN_ITS ---
Subjective NPU 2 Subjective: Patient presented today reporting that he is doing okay. He reports that he is often spent after dialysis and hopes to get back to work. He reports that his schedule was pretty good as he worked last time on days other than dialysis. He also reports that he is trying to get on the move his dialysis to the last 1 in the day so that he could also possibly work on the early part of the days that he does dialysis. He reports that he is not feeling depressed and he is felt more optimistic over the last few days. He denied any problems with the increase in the Depakote. He denied any side effects to the medication we discussed discharge by Thursday morning but possibly tomorrow. Mental Status Exam 2 MSE Comments: This is a short, diminutive, white male, in hospital scrubs on with adequate grooming and eye contact. No abnormal movements except for psychomotor retardation. Cooperative with exam in no acute distress. Some tattoos on exposed skin and noted torturous port in his right forearm. Speech was more normal rate and volume with no notable pauses. Mood described as a lot better; affect congruent . Thought process, linear and at times organized. Thought content: patient denied homicidal but endorsed suicidal ideation, there were no delusions reported or noted, patient denied any auditory or visual hallucinations. Attention and concentration appear intact, and memory appear mostly reliable but none were formally tested. He is alert and oriented times 3. Insight, judgment and impulse control are all improving. Vitals/I&O/Wt Last Vital Signs Temp 97.8 F 08/03/24 06:00 Pulse 75 08/03/24 06:00 Resp 16 08/03/24 06:00 BP 117/77 08/03/24 06:00 Pulse Ox 98 08/03/24 06:00 O2 Del Method Room Air 08/03/24 06:00 Weight last 48 hrs Weight 0 g Data NPU 08/03/24 08:21 08/03/24 08:21 A&P Assessment and plan (1) Other stimulant dependence, in remission: (2) Generalized anxiety disorder: (3) Acute anxiety: (4) Suicidal ideation: (5) Major depressive disorder, recurrent: (6) ESRD on hemodialysis: Plan This is a 24-year-old, white male, with a long history of trauma, post-traumatic stress disorder, addiction, and loss, who presents struggling with his depression but without psychosis and paranoia on this visit really struggling with finding a purpose to live as he is frustrated with his continual anxiety and depression. He has a history of addiction but denies recent problems with that. RECOMMENDATION AND PLAN: 1. Continue current medication. Started Depakote 250 mg p.o. twice daily. Consider a dialysis appropriate antidepressant. Also added propranolol for anxiety with the consideration of a benzodiazepine if that is ineffective. We also reviewed the possibility of Spravato or TMS as an alternative. Increase Depakote to 500 mg p.o. twice daily. 2. Encourage individual, group, and milieu therapy. 3. Discontinue supposed to be one-to-one and placed on every 15 minute checks for safety. 4. Encourage sober living treatment after discharge at the highest level care to which he is willing to commit. 5. Likely discharge by Thursday. Involuntary Hold Information 2 96 Hour Hold: 96 Hour Involuntary Admission: Yes 96 Hour Hold Ending Date: 08/05/24 96 Hour Hold Ending Time: 00:01 Attestations NPU 2 Medical Necessity Statement*: Inpatient hospitalization is medically necessary and the clinically appropriate intervention, at this time. We will monitor medications and make changes as indicated. His likely length of stay is 1-3 days. Coding Level of Care Code Acute Code for Chg Fwd Diagnoses Other stimulant dependence, in remission F15.21 Generalized anxiety disorder F41.1 Acute anxiety F41.9 Suicidal ideation R45.851 Major depressive disorder, recurrent F33.9 ESRD on hemodialysis N18.6; Z99.2
[2024-08-03 08:30] LABS: Basophils # 0.1 10^3/uL (0.0-0.1); Basophils % 1.1 %; Eosinophils # 0.4 10^3/uL (0.0-0.8); Eosinophils % 7.6 %; Lymphocytes # 1.1 10^3/uL (0.8-4.8); Lymphocytes % 20.1 %; Mean Corpuscular HGB Conc 32.3 g/dL (30-55); Mean Corpuscular Hemoglobin 31.9 pg (27-33); Mean Corpuscular Volume 98.9 fl (82-101); Mean Platelet Volume 9.4 fL (7.4-10.4); Monocytes # 0.7 10^3/uL (0.2-0.9); Monocytes % 13.7 %; Neutrophils % 57.3 %; Nucleated Red Blood Cells % 0 %; Platelet Count 175 10^3/cmm (157-399); Red Blood Count 3.54 10^6/uL (3.85-5.65); Red Cell Distribution Width 13.7 % (12.1-15.1); White Blood Count 5.41 10^3/uL (3.29-11.43)
[2024-08-03 08:47] LABS: Alanine Aminotransferase 10 U/L (0-41); Albumin Level 4.9 g/dL (3.5-5.2); Alkaline Phosphatase 77 U/L (40-130); Anion Gap 25.5 (5-19); Aspartate Amino Transferase 14 U/L (0-40); Blood Urea Nitrogen 46 mg/dL (6-20); Calcium 9.5 mg/dL (8.5-10.5); Carbon Dioxide 24 mmol/L (22-29); Chloride 93 mmol/L (98-107); Creatinine Clr Calc Pharmacy 0; Globulin 2.3 g/dL (1.3-4.6); Glomerular Filtration Rate 5.8 mL/min (90-130); Glucose 127 mg/dL (65-115); Magnesium 2.7 mg/dL (1.7-2.3); Osmolality Calculated 299 mOsm/kg (285-295); Potassium 4.5 mmol/L (3.5-5.1); Sodium 138 mmol/L (136-145); Total Bilirubin 0.3 mg/dL (0.15-1.2); Total Protein 7.2 g/dL (6.6-8.7)
[2024-08-03 09:01] LABS: Phosphorus 7.9 mg/dL (2.5-4.5)
--- NOTE | 2024-08-03 09:01 | PC.NURSE ---
Lab contacted this RN to report critical labs. Creatinine was [address] Marroquin notified and no new orders at this time. Patient scheduled for dialysis this morning.
--- NOTE | 2024-08-03 10:03 | PC.NURSE ---
PT OFF UNIT FOR DIALYSIS.
--- NOTE | 2024-08-03 10:06 | PC.NURSE ---
SOME MEDICATION HELD DO TO PT HAVING DIALYSIS THIS AM.
[2024-08-03] MEDS: LORazepam 2 mg/mL INJ 1 mL 1 MG IVP ×2 (10:32→11:19)
[2024-08-03] MEDS: diphenhydrAMINE 50 mg/mL SDV 1mL IM (12:17)
[2024-08-03] MEDS: allopurinol 100 mg Tablet PO (13:58)
[2024-08-03] MEDS: sevelamer 800 mg Tablet 2400 MG PO ×2 (13:58→17:20)
[2024-08-03] MEDS: citalopram 20 mg Tablet 10 MG PO (13:58)
[2024-08-03] MEDS: divalproex DR 250 mg Tablet 500 MG PO ×2 (13:59→17:20)
[2024-08-03] MEDS: tacrolimus 0.5 mg Capsule 1 MG PO ×2 (13:59→17:20)
[2024-08-03] MEDS: b-complex-vitamin c Tablet 1 EACH PO (13:59)
[2024-08-03] MEDS: labetalol 200 mg Tablet PO ×2 (13:59→17:20)
[2024-08-03 14:00] VITALS: BP 126/92; PULSE 74; RESP 18
[2024-08-03] MEDS: nicotine 2 mg Gum BUCCAL (15:33)
[2024-08-03 16:02] VITALS: BP 133/86; BP 139/95; PULSE 80; PULSE 84; RESP 18; TEMP 36.9
[2024-08-03 16:15] LABS: Tacrolimus, Highly Sensitive <1.0 mcg/L
[2024-08-03 20:17] VITALS: BP 108/66; PULSE 65; RESP 18; TEMP 36.6; O2SAT 99
[2024-08-03] MEDS: zolpidem 5 mg Tablet PO (20:51)
[2024-08-03] MEDS: trazodone 100 mg Tablet PO (20:51)
[2024-08-03] MEDS: OLANZapine 10 mg ODT PO (20:51)
[2024-08-04] MEDS: nicotine 2 mg Gum BUCCAL (05:59)
[2024-08-04 06:00] VITALS: BP 100/64; PULSE 88; RESP 20; TEMP 36.7; O2SAT 99
[2024-08-04] MEDS: CLONazepam 0.5 mg Tablet PO (06:40)
--- NOTE | 2024-08-04 06:44 | PC.NURSE ---
Klonopin Patient stated he had mild anxiety and requested anxiety medication. Dr. Marroquin contacted and order received for klonopin 0.5 mg BID PRN for anxiety.
[2024-08-04] MEDS: b-complex-vitamin c Tablet 1 EACH PO (08:10)
[2024-08-04] MEDS: divalproex DR 250 mg Tablet 500 MG PO (08:11)
[2024-08-04] MEDS: allopurinol 100 mg Tablet PO (08:11)
[2024-08-04] MEDS: sevelamer 800 mg Tablet 2400 MG PO (08:11)
[2024-08-04] MEDS: labetalol 200 mg Tablet PO (08:11)
[2024-08-04] MEDS: citalopram 20 mg Tablet 10 MG PO (08:11)
[2024-08-04] MEDS: tacrolimus 0.5 mg Capsule 1 MG PO (08:11)
--- NOTE | 2024-08-04 08:28 | P.PN_ITS ---
Subjective 2 Subjective: no new c/o Medications: Reviewed: Yes Vitals/I&O/Wt Last Vital Signs Temp 98.1 F 08/04/24 06:00 Pulse 88 08/04/24 06:00 Resp 20 H 08/04/24 06:00 BP 100/64 08/04/24 06:00 Pulse Ox 99 08/04/24 06:00 O2 Del Method Room Air 08/03/24 06:00 08/03/24 08/04/24 08/04/24 22:59 06:59 14:59 Intake Total 400 / 400 Output Total 1904 / 1904 Balance -1504 / -1504 Weight last 48 hrs Weight 0 g Physical Exam 2 Narrative: Comfortable in bed no apparent distress. HEENT normocephalic atraumatic. Vital signs noted. Neck is supple. Lungs are clear to auscultation. Heart is regular. Abdomen is soft positive bowel sounds. Extremities no edema right upper extremity AV fistula with good thrill and bruit. Neuro awake alert oriented x 3 Data 08/03/24 08:21 08/03/24 08:21 A&P Assessment and plan (1) ESRD on dialysis: 24-year-old gentleman history of ESRD failed renal transplant. History of anxiety history of drug use in the past. Patient here with suicidal ideation. 1. Psych evaluation appreciated. 2. ESRD - thu phos binders -check tacrolimus level prior to am dose- taken 08-01-24 await results 3. Blood pressure very well-controlled 4. Hemoglobin acceptable. check iron studies 5. Renal bone mineral metabolism PTH 247. await vit d and increase Renvela as phosphorus is elevated. 6. renal diet seen and examined w/ RN- telehealth visit using A/V equipement- RN examined pt. Plan see above Attestations 2 Medical Necessity Statement*: per medicne Coding Level of Care Code Acute Code for Chg Fwd Diagnoses ESRD on dialysis N18.6; Z99.2
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
[2024-08-04 09:51] LABS: Alanine Aminotransferase 10 U/L (0-41); Alkaline Phosphatase 83 U/L (40-130); Anion Gap 21.5 (5-19); Aspartate Amino Transferase 16 U/L (0-40); Blood Urea Nitrogen 30 mg/dL (6-20); Calcium 9.9 mg/dL (8.5-10.5); Carbon Dioxide 30 mmol/L (22-29); Chloride 93 mmol/L (98-107); Creatinine Clr Calc Pharmacy 0; Globulin 2.4 g/dL (1.3-4.6); Glomerular Filtration Rate 9.1 mL/min (90-130); Glucose 78 mg/dL (65-115); Magnesium 2.8 mg/dL (1.7-2.3); Osmolality Calculated 295 mOsm/kg (285-295); Phosphorus 5.4 mg/dL (2.5-4.5); Potassium 4.5 mmol/L (3.5-5.1); Sodium 140 mmol/L (136-145); Total Bilirubin 0.3 mg/dL (0.15-1.2); Total Protein 7.4 g/dL (6.6-8.7)
--- NOTE | 2024-08-04 10:06 | DCPLANNER ---
IMM completed on 08/04/2024 @ 1005. Pt was given a copy of rights and he stated he understood his rights.
[2024-08-04 10:32] VITALS: BP 100/64; PULSE 88; RESP 20; TEMP 36.7; O2SAT 99
[2024-08-04] MEDS: nicotine 21 mg Patch 1 PATCH TRANSDERMA (12:15)
[2024-08-04 15:21] LABS: Vit D 1,25 (Oh)2, Total 35 pg/mL (18-72); Vit D2 1,25 (Oh)2 <8 pg/mL; Vit D3 1,25 (Oh)2 35 pg/mL
== END 2024-08-04 13:08 | disposition home or self-care (01) | DRG 885 ==
LOC: ER 08:44 → NP 13:47
PROVIDERS: Emergency Medicine; Hospitalist; Internal Medicine Nephrology; Admitting Provider Psychiatry & Neurology Psychiatry; Emergency Provider Family Medicine; PCP Nurse Practitioner Family; Visit Provider Psychiatry & Neurology Psychiatry
DX: F33.9 Major depressive disorder, recurrent, unspecified (principal); N18.6 End stage renal disease; R45.851 Suicidal ideations; I13.11 Hypertensive heart and chronic kidney disease without heart failure, with stage 5 chronic kidney disease, or end stage renal disease; Z94.0 Kidney transplant status; F41.1 Generalized anxiety disorder; F15.21 Other stimulant dependence, in remission; F17.290 Nicotine dependence, other tobacco product, uncomplicated; Z99.2 Dependence on renal dialysis; D64.9 Anemia, unspecified; F43.10 Post-traumatic stress disorder, unspecified
CPT/HCPCS: 36415; 36416; 80048; 80053; 80197; 80307; 82306; 82310; 82652; 82728; 82962; 83540; 83550; 83735; 83970; 84100; 84443; 84550; 85025; 86706; 86803; 87340; 90935; 96372; 97150; 97165; 99285; J1200; J2060; J7507; J7517; Q0162

== ENCOUNTER 2024-08-25 18:33 | Emergency (ER) | payer MEDICARE, MEDICAID, SELFPAY ==
[2024-08-25 18:37] VITALS: BP 132/76; PULSE 80; RESP 16; TEMP 36.6; O2SAT 97; BMI 20.7
--- NOTE | 2024-08-25 18:54 | ED.C_ITS ---
HPI - Psych General: Chief Complaint: Psychiatric Symptoms Stated Complaint: MHE Time Seen by Provider: 08/25/24 18:41 History of Present Illness: 24-year-old male with a history of anxie ty and chronic benzodiazepine use who presents to the emergency room with anxiety and panic attacks all day. He says he is not suicidal or homicidal but is afraid he is going to . He ran out of his [employer]. He has not had anything for couple days. He says he accidentally took it all early. His refill is due in 2 days. He is afraid he might be withdrawing. Related Data Home Medications Medication Instructions Recorded Confirmed allopurinol 100 mg tablet 100 mg PO DAILY 02/03/22 07/30/24 citalopram 10 mg tablet (Celexa) 10 mg PO DAILY 07/30/24 07/30/24 doxazosin 4 mg tablet (Cardura) 4 mg PO DAILY 07/30/24 07/30/24 olanzapine 10 mg disintegrating 10 mg PO BEDTIME 07/30/24 07/30/24 tablet (Zyprexa Zydis) trazodone 100 mg tablet 100 mg PO BEDTIME 07/30/24 07/30/24 zolpidem 5 mg tablet (Ambien) 5 mg PO BEDTIME 07/30/24 07/30/24 Previous Rx's Medication Instructions Recorded B-complex with vitamin C 1 tab PO DAILY 30 days #30 tabs 08/04/24 clonazepam 0.5 mg tablet (Klonopin) 0.5 mg PO BID 30 days #60 tabs 08/04/24 divalproex 500 mg tablet,delayed 500 mg PO BID 30 days #60 tabs 08/04/24 release haloperidol 5 mg tablet 5 mg PO DAILY PRN Agitation 30 08/04/24 days #30 tabs labetalol 200 mg tablet 200 mg PO BID 30 days #60 tabs 08/04/24 propranolol 20 mg tablet 20 mg PO TID PRN Anxiety 30 days 08/04/24 #90 tabs sevelamer carbonate 800 mg tablet 2,400 mg (3 x 800 mg) PO TIDWM 30 08/04/24 days #270 tabs tacrolimus 1 mg capsule, 1 mg PO BID 30 days #60 caps 08/04/24 immediate-release clonazepam 0.5 mg tablet (Klonopin) 0.5 mg PO Q8H PRN anxiety #6 tabs 08/25/24 Allergies Allergy/AdvReac Type Severity Reaction Status Date / Time NSAIDS (Non-Steroidal Allergy Severe unable to Verified 07/03/24 17:56 Anti-Inflamma take due to kidney disease grapefruit Allergy Unknown Verified 07/03/24 17:56 sertraline [From Zoloft] Allergy Unknown Verified 07/03/24 17:56 Review of Systems Narrative: Constitutional symptoms: Negative except as documented in HPI. Skin symptoms: Negative except as documented in HPI. Eye symptoms: Negative except as documented in HPI. ENMT symptoms: Negative except as documented in HPI. Respiratory symptoms: Negative except as documented in HPI. Cardiovascular symptoms: Negative except as documented in HPI. Gastrointestinal symptoms: Negative except as documented in HPI. Genitourinary symptoms: Negative except as documented in HPI. Musculoskeletal symptoms: Negative except as documented in HPI. Neurologic symptoms: Negative except as documented in HPI. Psychiatric symptoms: Negative except as documented in HPI. Endocrine symptoms: Negative except as documented in HPI. PFSH ED PFSH: Medical History CKD (chronic kidney disease) stage V requiring chronic dialysis Generalized anxiety disorder Other stimulant dependence, in remission Psychiatric care Problems related to lack of adequate sleep Substance abuse Depression Anxiety Social History Smoking and tobacco/nicotine status: current every day tobacco/nicotine user e- cigarettes E-Cigarette Details: vaporizer device and with nicotine E-cig/vape details: 6 mg and smokeless tobacco Smokeless tobacco user: chewing tobacco Smokeless tobacco details: 1 can/3 days. Quit status (tobacco/nicotine): has tried quititng Number of times tried to quit tobacco: 4 Second hand smoke exposure: No Physical Exam Narrative: EXAM NARRATIVE: General: Alert, no acute distress. Skin: Warm, dry. Head: Normocephalic, atraumatic. Neck: Supple, trachea midline. Eye: Extraocular movements are intact. Ears, nose, mouth and throat: mucosa moist. Cardiovascular: Regular, Normal peripheral perfusion. Respiratory: Lungs are clear to auscultation, respirations are non-labored, breath sounds are equal, Symmetrical chest wall expansion. Gastrointestinal: Soft, Nontender, Non distended Musculoskeletal: Normal ROM, no deformity. Neurological: Alert and oriented, No focal neurological deficit observed. Psychiatric: Cooperative, patient is very anxious and tearful. He denies suicidal and homicidal ideation. Course Vital Signs: Vital signs: Vital Signs Temperature 98 F 08/25/24 18:37 Pulse Rate 80 08/25/24 18:37 Respiratory Rate 16 08/25/24 18:37 Blood Pressure 132/76 08/25/24 18:37 Pulse Oximetry 97 08/25/24 18:37 Oxygen Delivery Me thod Room Air 08/25/24 18:37 MDM - Psych Medical Decision Making Patient's vitals do not indicate that he is actively withdrawing but he is having an acute panic attack. He is at risk for withdrawal so I will give him a couple of days of Klonopin until he can get his filled. I discussed with him that if he does this repeatedly that likely his prescribing physician will stop prescribing benzodiazepines for him. Assessment and plan: Anxiety, panic attack ?IM Ativan here in the emergency room. - Discharged home - Discussed plan with patient. Answered any questions. - Evaluation and treatment of this problem were appropriate in the emergency setting. No radiology studies performed this visit Discharge Plan Discharge Patient Disposition: Home Clinical Impression: Acute anxiety Condition: Stable Prescriptions: New clonazepam [Klonopin] 0.5 mg tablet 0.5 mg PO Q8H PRN (Reason: anxiety) Qty: 6 0RF No Action trazodone 100 mg tablet 100 mg PO BEDTIME zolpidem [Ambien] 5 mg tablet 5 mg PO BEDTIME doxazosin [Cardura] 4 mg tablet 4 mg PO DAILY olanzapine [Zyprexa Zydis] 10 mg tablet,disintegrating 10 mg PO BEDTIME citalopram [Celexa] 10 mg Tablet 10 mg PO DAILY B-complex with vitamin C Tablet 1 tab PO DAILY 30 Days Qty: 30 1RF sevelamer carbonate 800 mg Tablet 2,400 mg PO TIDWM 30 Days Qty: 270 1RF divalproex 500 mg tablet,delayed release (DR/EC) 500 mg PO BID 30 Days Qty: 60 1RF labetalol 200 mg Tablet 200 mg PO BID 30 Days Qty: 60 1RF haloperidol 5 mg Tablet 5 mg PO DAILY PRN (Reason: Agitation) 30 Days Qty: 30 1RF propranolol 20 mg Tablet 20 mg PO TID PRN (Reason: Anxiety) 30 Days Qty: 90 1RF tacrolimus 1 mg capsule 1 mg PO BID 30 Days Qty: 60 1RF clonazepam [Klonopin] 0.5 mg tablet 0.5 mg PO BID 30 Days Qty: 60 1RF allopurinol 100 mg Tablet 100 mg PO DAILY Discharge Orders: Discharge ED (Routine); Ordered 08/25/24 Ordered By: Nadia Pepe Referrals: Renetta Cole INK PRINTER [Primary Care Provider] - Discharge Diet: Usual diet Discharge Activity: Increase activity as tolerated Patient Instructions: Opioid Safety, Pain Management Activity Restrictions/Additional Instructions: Please follow-up with the [facility] behavioral health crisis center tomorrow or the next day. Phone number is [phone]. There is a 24-hour crisis hotline with the number of [phone]. Hours of operation are 8 AM to 6 PM. Thank you for choosing [facility] for your healthcare needs today. Please realize this is an emergency room and that we are providing you with a medical screening exam and this may not be complete and all inclusive of all the testing and or work up that you may need to determine your ailment or severity of your illness. You have been screened and evaluated and felt safe for discharge. Health conditions do change or evolve sometimes and as such it is important that you follow up with your Primary Doctor to be re checked, 3-5 days is a general good time frame for follow up. You are always welcome to return to the ED for re assessment if your symptoms are worsening or you have new concerns Coding Level of Care Code ED Curtain Inspector for Loida Menon
[2024-08-25] MEDS: LORazepam 2 mg/mL INJ 1 mL IM (19:21)
[2024-08-25 19:35] VITALS: BP 148/78; PULSE 89; O2SAT 99
== END 2024-08-25 19:36 | disposition home or self-care (01) ==
PROVIDERS: Emergency Provider Emergency Medicine; PCP Nurse Practitioner Family
DX: F41.9 Anxiety disorder, unspecified (principal); F17.290 Nicotine dependence, other tobacco product, uncomplicated; N18.9 Chronic kidney disease, unspecified
CPT/HCPCS: 96372; 99284; J2060

== ENCOUNTER 2024-09-11 08:19 | Emergency (ER) | payer MEDICARE, MEDICAID, SELFPAY ==
[2024-09-11 08:24] VITALS: BP 147/87; PULSE 74; RESP 22; TEMP 36.7; O2SAT 98; BMI 20.7
[2024-09-11 08:53] LABS: Basophils # 0.1 10^3/uL (0.0-0.1); Basophils % 1.2 %; Eosinophils # 0.3 10^3/uL (0.0-0.8); Hematocrit 29.1 % (37-53); Lymphocytes # 0.7 10^3/uL (0.8-4.8); Lymphocytes % 11.6 %; Mean Corpuscular HGB Conc 30.9 g/dL (30-55); Mean Corpuscular Hemoglobin 32.6 pg (27-33); Mean Corpuscular Volume 105.4 fl (82-101); Mean Platelet Volume 10.7 fL (7.4-10.4); Monocytes # 0.7 10^3/uL (0.2-0.9); Monocytes % 12.5 %; Neutrophils # 3.87 10^3/uL (1.8-7.7); Neutrophils % 68.2 %; Nucleated Red Blood Cells % 0 %; Platelet Count 127 10^3/cmm (157-399); Red Blood Count 2.76 10^6/uL (3.85-5.65); White Blood Count 5.68 10^3/uL (3.29-11.43)
--- NOTE | 2024-09-11 09:04 | W.ED.PSYCHS ---
HPI - Psych General: Chief Complaint: Psychiatric Symptoms Stated Complaint: mhe, back and neck pain Time Seen by Provider: 09/11/24 08:22 History of Present Illness: 24-year-old male presents emergency room planing neck and back pain which is chronic he is also extremely anxious he took 2 doses of his Klonopin this morning about 3 hours ago for a total of 1 mg he usually takes 1/2 mg twice a day. He was hospitalized last month for suicidal ideation in the interim he has been hospitalized for hyperkalemia and fever earlier in the week that was a [facility] in [place] he says they never found a specific cause of the fever and he was discharged home. He has taken his sumatriptan prior to coming in for migraine. He is also on Haldol propranolol as needed for anxiety and citalopram. Associated symptoms: Reports depression Related Data Home Medications Medication Instructions Recorded Confirmed allopurinol 100 mg tablet 100 mg PO DAILY 02/03/22 09/11/24 citalopram 10 mg tablet (Celexa) 10 mg PO DAILY 07/30/24 09/11/24 doxazosin 4 mg tablet (Cardura) 4 mg PO DAILY 07/30/24 09/11/24 olanzapine 10 mg disintegrating 10 mg PO BEDTIME 07/30/24 09/11/24 tablet (Zyprexa Zydis) trazodone 100 mg tablet 100 mg PO BEDTIME 07/30/24 09/11/24 amlodipine 10 mg tablet 10 mg PO DAILY 09/11/24 09/11/24 clonazepam 1 mg tablet 1 mg PO TID PRN Anxiety 09/11/24 09/11/24 labetalol 100 mg tablet 200 mg PO BID 09/11/24 09/11/24 ondansetron 4 mg disintegrating 4 mg PO Q6H PRN Nausea And Vomiting 09/11/24 09/11/24 tablet sumatriptan succinate 25 mg tablet See Rx Instructions .Route .COMPLEX 09/11/24 09/11/24 venlafaxine 37.5 mg 37.5 mg PO DAILY 09/11/24 09/11/24 capsule,extended release 24 hr vit B,C-folic ac 800 mcg-zinc 12.5 1 tab PO DAILY 09/11/24 09/11/24 mg-selen-D3 2,000 unit-vit E tablet (RenaPlex-D) Previous Rx's Medication Instructions Recorded B-complex with vitamin C 1 tab PO DAILY 30 days #30 tabs 08/04/24 divalproex 500 mg tablet,delayed 500 mg PO BID 30 days #60 tabs 08/04/24 release sevelamer carbonate 800 mg tablet 2,400 mg (3 x 800 mg) PO TIDWM 30 08/04/24 days #270 tabs tacrolimus 1 mg capsule, 1 mg PO BID 30 days #60 caps 08/04/24 immediate-release Allergies Allergy/AdvReac Type Severity Reaction Status Date / Time NSAIDS (Non-Steroidal Allergy Severe unable to Verified 09/11/24 08:42 Anti-Inflamma take due to kidney disease grapefruit Allergy Unknown Verified 09/11/24 08:42 sertraline [From Zoloft] Allergy Unknown Verified 09/11/24 08:42 Review of Systems Const: Denies: fever(s) or chills Card: Denies: chest pain Resp: Denies: dyspnea GI: Denies: abdominal pain : Denies: dysuria, urinary frequency or urinary urgency Musc: Denies: neck pain or back pain Skin/Breast: Denies: rash Psych: Reports: anxiety, depression and mood swings PFSH ED PFSH: Medical History CKD (chronic kidney disease) stage V requiring chronic dialysis Generalized anxiety disorder Other stimulant dependence, in remission Psychiatric care Problems related to lack of adequate sleep Substance abuse Depression Anxiety Social History Smoking and tobacco/nicotine status: current every day tobacco/nicotine user e-cigarettes E-Cigarette Details: vaporizer device and with nicotine E-cig/vape details: 6 mg and smokeless tobacco Smokeless tobacco user: chewing tobacco Smokeless tobacco details: 1 can/3 days. Quit status (tobacco/nicotine): has tried quititng Number of times tried to quit tobacco: 4 Second hand smoke exposure: No Physical Exam Const: GENERAL APPEARANCE: cooperative ORIENTATION/CONSCIOUSNESS: Yes awake, Yes oriented to person, Yes oriented to place and Yes oriented to time HENMT: COMMON NORMALS: normocephalic, atraumatic and hearing grossly normal bilaterally HEAD & SCALP: normocephalic and atraumatic Resp: COMMON NORMALS: normal respiratory effort, No retractions, No use of accessory muscles and clear to auscultation bilaterally AUSCULTATION: clear to auscultation bilaterally Cardio: COMMON NORMALS: regular rate, regular rhythm and No murmurs present (Cardio) RATE: regular rate RHYTHM: regular rhythm GI: COMMON NORMALS: Soft to palpation and No hepatosplenomegaly present AUSCULTATION: Yes normoactive bowel sounds PALPATION: Yes Soft to palpation, No Tenderness to palpation present (GI), No Guarding due to palpation present (GI) and Yes No hepatosplenomegaly present Extremity: COMMON NORMALS: normal to inspection, capillary refill normal, no clubbing, cyanosis or edema, no calf tenderness and no pedal edema Neuro: SENSORIUM/ORIENTATION: Yes oriented to person, Yes oriented to place and Yes oriented to time Skin: COMMON NORMALS: no rashes or lesions noted GENERAL SKIN EXAM: no rashes or lesions noted Course Vital Signs: Vital signs: Vital Signs Temperature 98.1 F 09/11/24 08:24 Pulse Rate 74 09/11/24 08:24 Respiratory Rate 22 H 09/11/24 08:24 Blood Pressure 147/87 09/11/24 08:24 Pulse Oximetry 98 09/11/24 08:24 Oxygen Delivery Me thod Room Air 09/11/24 08:24 [facility] - Psych Medical Decision Making Patient denies suicidal and homicidal ideation. His back and neck pain is chronic. He is taken milligram of Klonopin at clonazepam this morning I do not feel comfortable giving any more benzodiazepines this time he took them just now 2 hours prior to arrival. We recommended propranolol 20 mg and 5 mg of Haldol which was previously on his as needed last he refuses those stating that he gets more aggressive with the Haldol and that his kidney doctor told him he should not take propranolol. Reviewed his case with Dr. Berg is on-call and Dr. Marroquin who is managing crisis stabilization. At this point I do not have anything that requires admission. Dr. Berg and Dr. Marroquin are both familiar with him. After reviewing the case and discussing his presentation today will discharge patient from the emergency room and have him go proceed to crisis stabilization Dr. Marroquin will review his medications and make adjustments as appropriate. Labs do not indicate patient scheduled dialysis will be appropriate. Medical Records I reviewed the patient's medical records. Lab Data I reviewed the patient's lab results. 09/11/24 08:47 09/11/24 08:47 Laboratory Results WBC 5.68 10^3/uL (3.29-11.43) 09/11/24 08:47 RBC 2.76 10^6/uL (3.85-5.65) L 09/11/24 08:47 Hgb 9.00 g/dL (11.27-16.99) L 09/11/24 08:47 Hct 29.1 % (37-53) L 09/11/24 08:47 MCV 105.4 fl (82-101) H 09/11/24 08:47 MCH 32.6 pg (27-33) 09/11/24 08:47 MCHC 30.9 g/dL (30-55) 09/11/24 08:47 RDW 17.0 % (12.1-15.1) H 09/11/24 08:47 Plt Count 127 10^3/cmm (157-399) L 09/11/24 08:47 MPV 10.7 fL (7.4-10.4) H 09/11/24 08:47 Neut % (Auto) 68.2 % 09/11/24 08:47 Lymph % (Auto) 11.6 % 09/11/24 08:47 Jerauld % (Auto) 12.5 % 09/11/24 08:47 Eos % (Auto) 6.0 % 09/11/24 08:47 Baso % (Auto) 1.2 % 09/11/24 08:47 Neut # (Auto) 3.87 10^3/uL (1.8-7.7) 09/11/24 08:47 Lymph # (Auto) 0.7 10^3/uL (0.8-4.8) L 09/11/24 08:47 Jerauld # (Auto) 0.7 10^3/uL (0.2-0.9) 09/11/24 08:47 Eos # (Auto) 0.3 10^3/uL (0.0-0.8) 09/11/24 08:47 Baso # (Auto) 0.1 10^3/uL (0.0-0.1) 09/11/24 08:47 Nucleated RBC % (auto) 0 % 09/11/24 08:47 Nucleated RBCs # 0.0 /100WBC 09/11/24 08:47 Sodium 143 mmol/L (136-145) 09/11/24 08:47 Potassium 4.8 mmol/L (3.5-5.1) 09/11/24 08:47 Chloride 101 mmol/L (98-107) 09/11/24 08:47 Carbon Dioxide 27 mmol/L (22-29) 09/11/24 08:47 Anion Gap 19.8 (5-19) H 09/11/24 08:47 BUN 33 mg/dL (6-20) H 09/11/24 08:47 Creatinine 8.6 mg/dL (0.7-1.2) H* 09/11/24 08:47 GFR Calculation 7.7 mL/min (90-130) L 09/11/24 08:47 Glucose 92 mg/dL (65-115) 09/11/24 08:47 Calculated Osmolality 303 mOsm/kg (285-295) H 09/11/24 08:47 Calcium 9.3 mg/dL (8.5-10.5) 09/11/24 08:47 Total Bilirubin 0.2 mg/dL (0.15-1.2) 09/11/24 08:47 AST 12 U/L (0-40) 09/11/24 08:47 ALT 9 U/L (0-41) 09/11/24 08:47 Alkaline Phosphatase 67 U/L (40-130) 09/11/24 08:47 Total Protein 6.2 g/dL (6.6-8.7) L 09/11/24 08:47 Albumin 4.3 g/dL (3.5-5.2) 09/11/24 08:47 Globulin 1.9 g/dL (1.3-4.6) 09/11/24 08:47 Salicylates < 0.3 mg/dL (3-10) L 09/11/24 08:47 Acetaminophen 5.4 ug/mL (10-30) L 09/11/24 08:47 No radiology studies performed this visit Discharge Plan Discharge Patient Disposition: Home Clinical Impression: Acute anxiety, ESRD on hemodialysis, Chronic back pain Depression Qualifiers: Depression Type: unspecified Qualified Code(s): F32.9 - Major depressive disorder, single episode, unspecified Condition: Stable Prescriptions: No Action trazodone 100 mg tablet 100 mg PO BEDTIME doxazosin [Cardura] 4 mg tablet 4 mg PO DAILY olanzapine [Zyprexa Zydis] 10 mg tablet,disintegrating 10 mg PO BEDTIME citalopram [Celexa] 10 mg Tablet 10 mg PO DAILY B-complex with vitamin C Tablet 1 tab PO DAILY 30 Days Qty: 30 1RF sevelamer carbonate 800 mg Tablet 2,400 mg PO TIDWM 30 Days Qty: 270 1RF divalproex 500 mg tablet,delayed release (DR/EC) 500 mg PO BID 30 Days Qty: 60 1RF tacrolimus 1 mg capsule 1 mg PO BID 30 Days Qty: 60 1RF allopurinol 100 mg Tablet 100 mg PO DAILY venlafaxine 37.5 mg capsule,extended release 24hr 37.5 mg PO DAILY sumatriptan succinate 25 mg tablet See Rx Instructions .ROUTE .COMPLEX Rx Instructions: TAKE 1 TO 2 TABS BY MOUTH EVERY 2 HOURS NEEDED FOR PAIN FOR MIGRAINE HEADACHE-DO NOT EXCEED 4 TABS IN 24 HOURS. clonazepam 1 mg tablet 1 mg PO TID PRN (Reason: Anxiety) labetalol 100 mg tablet 200 mg PO BID ondansetron 4 mg tablet,disintegrating 4 mg PO Q6H PRN (Reason: Nausea And Vomiting) RenaPlex-D 800 mcg-12.5 mg -2,000 unit tablet 1 tab PO DAILY amlodipine 10 mg tablet 10 mg PO DAILY Discharge Orders: Discharge ED (Routine); Ordered 09/11/24 Ordered By: Wade aDn Referrals: Renetta Cole NP [Primary Care Provider] - Discharge Diet: Usual diet Discharge Activity: Increase activity as tolerated Patient Instructions: Opioid Safety, Pain Management Activity Restrictions/Additional Instructions: Thank you for choosing [facility] for your healthcare needs today. It is very important that you follow up as instructed or that you return to the Emergency Department should you have concerns or if your condition changes or worsens in any way. You are seen in the emergency room for anxiety. After reviewing all your medications and discussing with the on-call psychiatrist and the psychiatrist managing crisis stabilization they recommended that we have you go to crisis stabilization from the emergency room where they can review your medications and adjust. Because of your dialysis and the multiple medications you are on medication adjustments are complicated. Coding Level of Care Code ED Machine Clerical Verifier for Loida Menon
[2024-09-11 09:10] LABS: Acetaminophen 5.4 ug/mL (10-30); Alanine Aminotransferase 9 U/L (0-41); Albumin Level 4.3 g/dL (3.5-5.2); Alkaline Phosphatase 67 U/L (40-130); Anion Gap 19.8 (5-19); Aspartate Amino Transferase 12 U/L (0-40); Blood Urea Nitrogen 33 mg/dL (6-20); Calcium 9.3 mg/dL (8.5-10.5); Carbon Dioxide 27 mmol/L (22-29); Chloride 101 mmol/L (98-107); Creatinine Clr Calc Pharmacy 9.6176; Globulin 1.9 g/dL (1.3-4.6); Glomerular Filtration Rate 7.7 mL/min (90-130); Glucose 92 mg/dL (65-115); Osmolality Calculated 303 mOsm/kg (285-295); Potassium 4.8 mmol/L (3.5-5.1); Salicylate < 0.3 mg/dL (3-10); Sodium 143 mmol/L (136-145); Total Bilirubin 0.2 mg/dL (0.15-1.2); Total Protein 6.2 g/dL (6.6-8.7)
--- NOTE | 2024-09-11 09:48 | PC.PHAR ---
states on the doctor wrote new order for Venlafaxine 37.5 that has not been picked up yet. Pt is to take Citalopram 10 mg 5 more days then stop. states do not give the Haloperidol 5mg-removed from list. also states pt saw kidney doctor on Thursday who said to stop Propranolol 20 mg due to kidney function.
[2024-09-11] MEDS: orphenadrine 30 mg/mL Inj 2 mL 60 MG IM (11:04)
[2024-09-11] MEDS: ketorolac 60 mg/2 mL INJ IM (11:04)
== END 2024-09-11 12:02 | disposition home or self-care (01) ==
PROVIDERS: Emergency Provider Family Medicine; PCP Nurse Practitioner Family
DX: F41.8 Other specified anxiety disorders (principal); M54.9 Dorsalgia, unspecified; F32.9 Major depressive disorder, single episode, unspecified; N18.6 End stage renal disease; Z99.2 Dependence on renal dialysis; F17.290 Nicotine dependence, other tobacco product, uncomplicated
CPT/HCPCS: 80053; 80307; 85025; 96372; 99284; J1885; J2360

== ENCOUNTER 2024-10-27 22:30 | Emergency (ER) | payer MEDICARE, MEDICAID, SELFPAY ==
[2024-10-27 22:35] VITALS: BP 168/113; PULSE 104; RESP 18; TEMP 36.8; O2SAT 98; BMI 20.7
--- NOTE | 2024-10-27 23:46 | ED_ITS ---
HPI - Anxiety 2 General: Chief Complaint: Anxiety Stated Complaint: anxious doc said get labs Time Seen by Provider: 10/27/24 23:31 Source: patient and family Mode of arrival: ambulatory Limitations: no limitations History of Present Illness: Patient is a 24-year-old male who presents to ED today with a complaint of severe anxiety over the past several days. He is having significant fear of . He states he has made suicidal comments recently to his parents but states that he did not mean them. He states he would never attempt suicide as he fears too much. He has recently had some superficial cutting to his wrist that he did out of anger. Patient states he was told by his nurse practitioner for mental health provider at [facility] that anytime he feels this way he needs to immediately go to the emergency department for his labs to be checked as there could be a physical reason instead of mental. He does have a history of kidney disease and is on chronic dialysis. He did receive his Thursday and Thursday dialysis and is scheduled for dialysis tomorrow 1:00. I did speak to patient's mother and father in the waiting room. He has a follow-up appointment with at [facility] next . Patient does not want to be admitted to [facility] as he is gone here previously and it has not helped . Parents state they do not have anything to 96 him at this time. complaint: anxiety Onset (ago): day(s) Provoking factors: emotional stress and medication change (parents state he is not compliant with medications) Associated symptoms: Reports no associated symptoms; Deny chest pain, fever(s), nausea, palpitations or vomiting Related Data Home Medications Medication Instructions Recorded Confirmed allopurinol 100 mg tablet 100 mg PO DAILY 02/03/22 09/11/24 citalopram 10 mg tablet (Celexa) 10 mg PO DAILY 07/30/24 09/11/24 doxazosin 4 mg tablet (Cardura) 4 mg PO DAILY 07/30/24 09/11/24 olanzapine 10 mg disintegrating 10 mg PO BEDTIME 07/30/24 09/11/24 tablet (Zyprexa Zydis) trazodone 100 mg tablet 100 mg PO BEDTIME 07/30/24 09/11/24 amlodipine 10 mg tablet 10 mg PO DAILY 09/11/24 09/11/24 clonazepam 1 mg tablet 1 mg PO TID PRN Anxiety 09/11/24 09/11/24 labetalol 100 mg tablet 200 mg PO BID 09/11/24 09/11/24 ondansetron 4 mg disintegrating 4 mg PO Q6H PRN Nausea And Vomiting 09/11/24 09/11/24 tablet sumatriptan succinate 25 mg tablet See Rx Instructions .Route .COMPLEX 09/11/24 09/11/24 venlafaxine 37.5 mg 37.5 mg PO DAILY 09/11/24 09/11/24 capsule,extended release 24 hr vit B,C-folic ac 800 mcg-zinc 12.5 1 tab PO DAILY 09/11/24 09/11/24 mg-selen-D3 2,000 unit-vit E tablet (RenaPlex-D) Previous Rx's Medication Instructions Recorded B-complex with vitamin C 1 tab PO DAILY 30 days #30 tabs 08/04/24 divalproex 500 mg tablet,delayed 500 mg PO BID 30 days #60 tabs 08/04/24 release sevelamer carbonate 800 mg tablet 2,400 mg (3 x 800 mg) PO TIDWM 30 08/04/24 days #270 tabs tacrolimus 1 mg capsule, 1 mg PO BID 30 days #60 caps 08/04/24 immediate-release Allergies Allergy/AdvReac Type Severity Reaction Status Date / Time NSAIDS (Non-Steroidal Allergy Severe unable to Verified 09/11/24 08:42 Anti-Inflamma take due to kidney disease grapefruit Allergy Unknown Verified 09/11/24 08:42 sertraline [From Zoloft] Allergy Unknown Verified 09/11/24 08:42 Review of Systems 2 Const: Denies: fever(s) Card: Denies: chest pain or palpitations Resp: Denies: dyspnea GI: Denies: abdominal pain, nausea or vomiting : Denies: flank pain Psych: Reports: anxiety and irritability; Denies: visual hallucinations, auditory hallucinations, suicidal ideation or homicidal ideation PFSH ED 2 PFSH: Medical History CKD (chronic kidney disease) stage V requiring chronic dialysis Generalized anxiety disorder Other stimulant dependence, in remission Psychiatric care Problems related to lack of adequate sleep Substance abuse Depression Anxiety Social History Smoking and tobacco/nicotine status: never used tobacco/nicotine Quit status (tobacco/nicotine): has tried quititng Number of times tried to quit tobacco: 4 Second hand smoke exposure: No Physical Exam 2 Const: COMMON NORMALS: no acute distress, patient oriented x3, alert and well nourished GENERAL APPEARANCE: cooperative Resp: COMMON NORMALS: normal respiratory effort and clear to auscultation bilaterally AUSCULTATION: clear to auscultation bilaterally Cardio: COMMON NORMALS: regular rate and regular rhythm RATE: regular rate RHYTHM: regular rhythm Neuro: PHUC COMA SCALE: document GCS findings Vichy coma scale eye opening: Spontaneous Vichy coma scale verbal response: Orientated Phuc coma scale motor response: Obey commands Phuc coma scale total score: 15 COMMON NORMALS: patient oriented x3, moves all extremities, no focal motor deficits, no sensory deficits noted and gait normal SENSORIUM/ORIENTATION: Yes alert Psych: COMMON NORMALS: mental status grossly normal, Normal thought process present, cooperative, normal affect, activity/motor behavior normal, denies hallucinations, denies homicidal ideation and denies suicidal ideation A PPEARANCE: Yes grossly normal ATTITUDE: Yes engaged ACTIVITY/MOTOR BEHAVIOR: Yes appropriate eye contact and No psychomotor agitation SPEECH: Y es excessive MOOD & AFFECT: Yes euthymic mood THOUGHT PROCESS: Normal thought process present THOUGHT CONTENT: Yes Normal thought content present ATTENTION/CONCENTRATION: Yes attention grossly intact and Yes concentration grossly intact MEMORY/COGNITION: Yes memory grossly intact and Yes cognition grossly intact INSIGHT: Fair insight present (Psych) JUDGEMENT: Fair judgement present (Psych) Skin: COMMON NORMALS: no rashes or lesions noted GENERAL SKIN EXAM: no rashes or lesions noted Course 2 Vital Signs: Vital signs: Vital Signs Temperature 98.3 F 10/27/24 22:35 Pulse Rate 97 10/28/24 00:11 Respiratory Rate 16 10/28/24 00:11 Blood Pressure 168/113 10/27/24 22:35 Pulse Oximetry 99 10/28/24 00:11 Oxygen Delivery Me thod Room Air 10/27/24 22:35 MDM - Anxiety Medical Decision Making Patient is a 24-year-old male here requesting blood work to see if there is anything physically that could be causing his increased anxiety. Patient clinically appears in no acute distress. I do not have any indication for a 96- hour hold. His blood work overall at this point is nonactionable. He has chronic kidney disease on dialysis. He is scheduled for dialysis today at 1:00. He has follow-up with [facility] on . Return to ED precautions given. Medical Records I reviewed the patient's medical records. Lab Data I reviewed the patient's lab results. 10/28/24 00:01 10/28/24 00:01 Laboratory Results WBC 5.08 10^3/uL (3.29-11.43) 10/28/24 00:01 RBC 3.45 10^6/uL (3.85-5.65) L 10/28/24 00:01 Hgb 11.40 g/dL (11.27-16.99) 10/28/24 00:01 Hct 34.4 % (37-53) L 10/28/24 00: MCV 99.7 fl (82-101) 10/28/24 00:01 MCH 33.0 pg (27-33) 10/28/24 00: MCHC 33.1 g/dL (30-55) 10/28/24 00:01 RDW 15.3 % (12.1-15.1) H 10/28/24 00:01 Plt Count 172 10^3/cmm (157-399) 10/28/24 00:01 MPV 11.2 fL (7.4-10.4) H 10/28/24 00:01 Neut % (Auto) 59.8 % 10/28/24 00:01 Lymph % (Auto) 20.1 % 10/28/24 00:01 Ciales % (Auto) 15.2 % 10/28/24 00:01 Eos % (Auto) 3.9 % 10/28/24 00:01 Baso % (Auto) 1.0 % 10/28/24 00:01 Neut # (Auto) 3.04 10^3/uL (1.8-7.7) 10/28/24 00:01 Lymph # (Auto) 1.0 10^3/uL (0.8-4.8) 10/28/24 00:01 [place]es # (Auto) 0.8 10^3/uL (0.2-0.9) 10/28/24 00:01 Eos # (Auto) 0.2 10^3/uL (0.0-0.8) 10/28/24 00:01 Baso # (Auto) 0.1 10^3/uL (0.0-0.1) 10/28/24 00:01 Nucleated RBC % (auto) 0 % 10/28/24 00:01 Nucleated RBCs # 0.0 /100WBC 10/28/24 00:01 Sodium 139 mmol/L (136-145) 10/28/24 00:01 Potassium 3.2 mmol/L (3.5-5.1) L 10/28/24 00:01 Chloride 95 mmol/L (98-107) L 10/28/24 00:01 Carbon Dioxide 29 mmol/L (22-29) 10/28/24 00:01 Anion Gap 18.2 (5-19) 10/28/24 00:01 BUN 24 mg/dL (6-20) H 10/28/24 00:01 Creatinine 8.3 mg/dL (0.7-1.2) H* 10/28/24 00:01 GFR Calculation 8.0 mL/min (90-130) L 10/28/24 00:01 Glucose 115 mg/dL (65-115) 10/28/24 00:01 Calculated Osmolality 293 mOsm/kg (285-295) 10/28/24 00:01 Calcium 9.1 mg/dL (8.5-10.5) 10/28/24 00:01 Phosphorus 3.7 mg/dL (2.5-4.5) 10/28/24 00:01 Magnesium 2.4 mg/dL (1.7-2.3) H 10/28/24 00:01 Total Bilirubin 0.3 mg/dL (0.15-1.2) 10/28/24 00:01 AST 14 U/L (0-40) 10/28/24 00:01 ALT 7 U/L (0-41) 10/28/24 00:01 Alkaline Phosphatase 68 U/L (40-130) 10/28/24 00:01 Total Protein 6.6 g/dL (6.6-8.7) 10/28/24 00:01 Albumin 4.6 g/dL (3.5-5.2) 10/28/24 00: Globulin 2.0 g/dL (1.3-4.6) 10/28/24 00:01 No radiology studies performed this visit Discharge Plan Discharge Patient Disposition: Home Clinical Impression: Chronic anxiety CKD (chronic kidney disease) Qualifiers: Chronic kidney disease stage: on chronic dialysis Qualified Code(s): N18.6 - End stage renal disease Condition: Stable Prescriptions: No Action trazodone 100 mg tablet 100 mg PO BEDTIME doxazosin [Cardura] 4 mg tablet 4 mg PO DAILY olanzapine [Zyprexa Zydis] 10 mg tablet,disintegrating 10 mg PO BEDTIME citalopram [Celexa] 10 mg Tablet 10 mg PO DAILY B-complex with vitamin C Tablet 1 tab PO DAILY 30 Days Qty: 30 1RF sevelamer carbonate 800 mg Tablet 2,400 mg PO TIDWM 30 Days Qty: 270 1RF divalproex 500 mg tablet,delayed release (DR/EC) 500 mg PO BID 30 Days Qty: 60 1RF tacrolimus 1 mg capsule 1 mg PO BID 30 Days Qty: 60 1RF allopurinol 100 mg Tablet 100 mg PO DAILY venlafaxine 37.5 mg capsule,extended release 24hr 37.5 mg PO DAILY sumatriptan succinate 25 mg tablet See Rx Instructions .ROUTE .COMPLEX Rx Instructions: TAKE 1 TO 2 TABS BY MOUTH EVERY 2 HOURS NEEDED FOR PAIN FOR MIGRAINE HEADACHE-DO NOT EXCEED 4 TABS IN 24 HOURS. clonazepam 1 mg tablet 1 mg PO TID PRN (Reason: Anxiety) labetalol 100 mg tablet 200 mg PO BID ondansetron 4 mg tablet,disintegrating 4 mg PO Q6H PRN (Reason: Nausea And Vomiting) RenaPlex-D 800 mcg-12.5 mg -2,000 unit tablet 1 tab PO DAILY amlodipine 10 mg tablet 10 mg PO DAILY Discharge Orders: Discharge ED (Routine); Ordered 10/28/24 Ordered By: Sandra Rojas Referrals: Renetta Cole TITLE CHECKER [Primary Care Provider] - Activity Restrictions/Additional Instructions: Plan for your scheduled dialysis today at 1:00. Your parents have stated you have a mental health appointment at [facility] next -please attend this appointment so they can adjust medications if needed. Return to the emergency department immediately for any suicidal or homicidal thoughts. You can also utilize our Crisis [facility]. Coding Level of Care Code ED Tracer Lathe Set Up Operator for Loida Menon
[2024-10-28 00:08] LABS: Basophils # 0.1 10^3/uL (0.0-0.1); Eosinophils # 0.2 10^3/uL (0.0-0.8); Eosinophils % 3.9 %; Hematocrit 34.4 % (37-53); Lymphocytes % 20.1 %; Mean Corpuscular HGB Conc 33.1 g/dL (30-55); Mean Corpuscular Volume 99.7 fl (82-101); Mean Platelet Volume 11.2 fL (7.4-10.4); Monocytes # 0.8 10^3/uL (0.2-0.9); Monocytes % 15.2 %; Neutrophils # 3.04 10^3/uL (1.8-7.7); Neutrophils % 59.8 %; Nucleated Red Blood Cells % 0 %; Platelet Count 172 10^3/cmm (157-399); Red Blood Count 3.45 10^6/uL (3.85-5.65); Red Cell Distribution Width 15.3 % (12.1-15.1); White Blood Count 5.08 10^3/uL (3.29-11.43)
[2024-10-28 00:11] VITALS: PULSE 97; RESP 16; O2SAT 99
[2024-10-28] MEDS: ALPRAZolam 0.5 mg Tablet PO (00:27)
[2024-10-28 00:28] LABS: Alanine Aminotransferase 7 U/L (0-41); Albumin Level 4.6 g/dL (3.5-5.2); Alkaline Phosphatase 68 U/L (40-130); Anion Gap 18.2 (5-19); Aspartate Amino Transferase 14 U/L (0-40); Blood Urea Nitrogen 24 mg/dL (6-20); Calcium 9.1 mg/dL (8.5-10.5); Carbon Dioxide 29 mmol/L (22-29); Chloride 95 mmol/L (98-107); Creatinine Clr Calc Pharmacy 9.9652; Glucose 115 mg/dL (65-115); Magnesium 2.4 mg/dL (1.7-2.3); Osmolality Calculated 293 mOsm/kg (285-295); Phosphorus 3.7 mg/dL (2.5-4.5); Potassium 3.2 mmol/L (3.5-5.1); Sodium 139 mmol/L (136-145); Total Bilirubin 0.3 mg/dL (0.15-1.2); Total Protein 6.6 g/dL (6.6-8.7)
[2024-10-28] MEDS: LORazepam 1 mg Tablet PO (01:01)
== END 2024-10-28 00:55 | disposition home or self-care (01) ==
PROVIDERS: Emergency Provider Physician Assistant; PCP Nurse Practitioner Family
DX: F41.8 Other specified anxiety disorders (principal); N18.5 Chronic kidney disease, stage 5; Z99.2 Dependence on renal dialysis
CPT/HCPCS: 36415; 80053; 83735; 84100; 85025; 99283

== ENCOUNTER 2024-11-05 03:04 | Emergency (ER) | payer MEDICARE, MEDICAID, SELFPAY ==
[2024-11-05 03:09] VITALS: BP 171/132; PULSE 78; RESP 18; TEMP 37; O2SAT 100; BMI 21.3
--- NOTE | 2024-11-05 03:38 | W.ED.ANXIETY ---
HPI - Anxiety General: Chief Complaint: Anxiety Stated Complaint: severe anxiety chest tightness migraine Time Seen by Provider: 11/05/24 03:23 History of Present Illness: Patient presents to the ER with complaint of anxiety. Patient said he has been out of his Klonopin for the last 3 days and can pick it up tomorrow. Patient said he had a migraine today and his chest was tight he is short of breath due to his anxiety he says dog ate his bottle of Klonopin. Was seen earlier at [facility] was given 1 Klonopin. Patient is still having anxiety. Related Data Home Medications Medication Instructions Recorded Confirmed allopurinol 100 mg tablet 100 mg PO DAILY 02/03/22 09/11/24 citalopram 10 mg tablet (Celexa) 10 mg PO DAILY 07/30/24 09/11/24 doxazosin 4 mg tablet (Cardura) 4 mg PO DAILY 07/30/24 09/11/24 olanzapine 10 mg disintegrating 10 mg PO BEDTIME 07/30/24 09/11/24 tablet (Zyprexa Zydis) trazodone 100 mg tablet 100 mg PO BEDTIME 07/30/24 09/11/24 amlodipine 10 mg tablet 10 mg PO DAILY 09/11/24 09/11/24 clonazepam 1 mg tablet 1 mg PO TID PRN Anxiety 09/11/24 09/11/24 labetalol 100 mg tablet 200 mg PO BID 09/11/24 09/11/24 ondansetron 4 mg disintegrating 4 mg PO Q6H PRN Nausea And Vomiting 09/11/24 09/11/24 tablet sumatriptan succinate 25 mg tablet See Rx Instructions .Route .COMPLEX 09/11/24 09/11/24 venlafaxine 37.5 mg 37.5 mg PO DAILY 09/11/24 09/11/24 capsule,extended release 24 hr vit B,C-folic ac 800 mcg-zinc 12.5 1 tab PO DAILY 09/11/24 09/11/24 mg-selen-D3 2,000 unit-vit E tablet (RenaPlex-D) Previous Rx's Medication Instructions Recorded B-complex with vitamin C 1 tab PO DAILY 30 days #30 tabs 08/04/24 divalproex 500 mg tablet,delayed 500 mg PO BID 30 days #60 tabs 10/17/24 release sevelamer carbonate 800 mg tablet 2,400 mg (3 x 800 mg) PO TIDWM 30 08/04/24 days #270 tabs tacrolimus 1 mg capsule, 1 mg PO BID 30 days #60 caps 08/04/24 immediate-release Allergies Allergy/AdvReac Type Severity Reaction Status Date / Time NSAIDS (Non-Steroidal Allergy Severe unable to Verified 09/11/24 08:42 Anti-Inflamma take due to kidney disease grapefruit Allergy Unknown Verified 09/11/24 08:42 sertraline [From Zoloft] Allergy Unknown Verified 09/11/24 08:42 Review of Systems General: Reports: 10 or more systems reviewed and unremarkable except in HPI and below PFSH ED PFSH: Medical History CKD (chronic kidney disease) stage V requiring chronic dialysis Generalized anxiety disorder Other stimulant dependence, in remission Psychiatric care Problems related to lack of adequate sleep Substance abuse Depression Anxiety Social History Smoking and tobacco/nicotine status: never used tobacco/nicotine Quit status (tobacco/nicotine): has tried quititng Number of times tried to quit tobacco: 4 Second hand smoke exposure: No Physical Exam Const: COMMON NORMALS: no acute distress, average body habitus, patient oriented x3, no limitations, healthy appearing, alert and well nourished HENMT: COMMON NORMALS: normocephalic, atraumatic, hearing grossly normal bilaterally, external ears normal, Normal external nose present and moist oral mucous membranes HEAD & SCALP: normocephalic and atraumatic NOSE: Normal external nose present EXTERNAL EAR: Yes external ears normal Neck/C-Spine: COMMON NORMALS: no JVD Chest: COMMONS NORMALS: normal inspection of the chest and normal palpation of entire chest wall Resp: COMMON NORMALS: normal respiratory effort, No retractions, No use of accessory muscles and clear to auscultation bilaterally AUSCULTATION: clear to auscultation bilaterally Cardio: COMMON NORMALS: no JVD, regular rate, regular rhythm, S1 normal heart sound present, S2 normal heart sound present, No gallops present (Cardio), No clicks present (Cardio), No murmurs present (Cardio) and No rub (Cardio) RATE: regular rate RHYTHM: regular rhythm HEART SOUNDS: S1 normal heart sound present and S2 normal heart sound present GI: COMMON NORMALS: Normal to inspection, nondistended, normoactive bowel sounds present, Soft to palpation, non-tender, No hepatosplenomegaly present and no masses PALPATION: Yes Soft to palpation and Yes No hepatosplenomegaly present Neuro: COMMON NORMALS: patient oriented x3 SENSORIUM/ORIENTATION: Yes alert Course Vital Signs: Vital signs: Vital Signs Temperature 98.6 F 11/05/24 03:09 Pulse Rate 78 11/05/24 03:09 Respiratory Rate 18 11/05/24 03:09 Blood Pressure 171/132 11/05/24 03:09 Pulse Oximetry 100 11/05/24 03:09 Oxygen Delivery Me thod Room Air 11/05/24 03:09 MDM - Anxiety Medical Decision Making Patient spends Klonopin for last 3 days. Patient will be given 1 mg Ativan IM. Discharged home. He can fill his Klonopin tomorrow. Medical Records I reviewed the patient's medical records. Lab Data I reviewed the patient's lab results. No radiology studies performed this visit Discharge Plan Discharge Patient Disposition: Home Clinical Impression: Acute anxiety Condition: Stable Prescriptions: No Action trazodone 100 mg tablet 100 mg PO BEDTIME doxazosin [Cardura] 4 mg tablet 4 mg PO DAILY olanzapine [Zyprexa Zydis] 10 mg tablet,disintegrating 10 mg PO BEDTIME citalopram [Celexa] 10 mg Tablet 10 mg PO DAILY B-complex with vitamin C Tablet 1 tab PO DAILY 30 Days Qty: 30 1RF sevelamer carbonate 800 mg Tablet 2,400 mg PO TIDWM 30 Days Qty: 270 1RF divalproex 500 mg tablet,delayed release (DR/EC) 500 mg PO BID 30 Days Qty: 60 1RF tacrolimus 1 mg capsule 1 mg PO BID 30 Days Qty: 60 1RF allopurinol 100 mg Tablet 100 mg PO DAILY venlafaxine 37.5 mg capsule,extended release 24hr 37.5 mg PO DAILY sumatriptan succinate 25 mg tablet See Rx Instructions .ROUTE .COMPLEX Rx Instructions: TAKE 1 TO 2 TABS BY MOUTH EVERY 2 HOURS NEEDED FOR PAIN FOR MIGRAINE HEADACHE-DO NOT EXCEED 4 TABS IN 24 HOURS. clonazepam 1 mg tablet 1 mg PO TID PRN (Reason: Anxiety) labetalol 100 mg tablet 200 mg PO BID ondansetron 4 mg tablet,disintegrating 4 mg PO Q6H PRN (Reason: Nausea And Vomiting) RenaPlex-D 800 mcg-12.5 mg -2,000 unit tablet 1 tab PO DAILY amlodipine 10 mg tablet 10 mg PO DAILY Discharge Orders: Discharge ED (Routine); Ordered 11/05/24 Ordered By: Arturo Lacy Referrals: Renetta Cole SECURITY PATROL OFFICER [Primary Care Provider] - 1 week Patient Instructions: Anxiety (ED) Activity Restrictions/Additional Instructions: Thank you for choosing [facility] for your healthcare needs today. Please realize that you were seen in the emergency department and that we are providing you with an emergency medical screening exam and this may not be a complete and all exclusive of all testing and/or medical workup we may need to determine your element or severity of your illness. It is very important that you follow-up as instructed with your primary care provider or specialist for the additional evaluation and to discuss your medical treatment plan. You may return to the emergency department should you have concerns or if your condition changes or worsens in any way. Coding Level of Care Code ED Sprinkler Fitter Apprentice for Loida Menon
[2024-11-05] MEDS: LORazepam 2 mg/mL INJ 1 mL 1 MG IM (03:45)
[2024-11-05 03:52] VITALS: BP 154/109; PULSE 72; O2SAT 98
[2024-11-05 03:54] VITALS: BP 154/109; PULSE 72; O2SAT 98
== END 2024-11-05 03:56 | disposition home or self-care (01) ==
PROVIDERS: Emergency Provider Emergency Medicine; PCP Nurse Practitioner Family
DX: F41.8 Other specified anxiety disorders (principal); N18.5 Chronic kidney disease, stage 5; Z99.2 Dependence on renal dialysis
CPT/HCPCS: 96372; 99284; J2060

== ENCOUNTER 2024-12-19 23:25 | Emergency (ER) | payer MEDICARE, MEDICAID, SELFPAY ==
[2024-12-19 23:39] VITALS: BP 126/72; PULSE 77; RESP 16; TEMP 36.3; O2SAT 98
--- NOTE | 2024-12-19 23:46 | ECG_ITS ---
[facility] Test Date: 2024-12-19 Pat Name: Vance Sainz Department: Room: Gender: Male Dining Chair Seat Cushion Trimmer: : [id number] Requested By: Arturo Lacy Order Number: [id number] Raman MD: Koby Shook M.D. Measurements Intervals [employer] Rate: 80 P: 76 RI: 142 QRS: 73 QRSD: 99 T: 52 QT: 403 QTc: 467 Interpretive Statements SINUS RHYTHM Compared to ECG 04/23/2024 06:25:37 Sinus arrhythmia no longer present Electronically Signed On 12-24-2024 18:13:36 LAW FIRM CONSULTANT by Koby Shook M.D. [email or web address]
[2024-12-20 01:48] LABS: Basophils % 1.1 %; Eosinophils # 0.2 10^3/uL (0.0-0.8); Eosinophils % 4.4 %; Hematocrit 31.7 % (37-53); Lymphocytes # 0.4 10^3/uL (0.8-4.8); Lymphocytes % 9.7 %; Mean Corpuscular HGB Conc 32.8 g/dL (30-55); Mean Corpuscular Hemoglobin 31.4 pg (27-33); Mean Corpuscular Volume 95.8 fl (82-101); Mean Platelet Volume 10.9 fL (7.4-10.4); Monocytes # 0.6 10^3/uL (0.2-0.9); Monocytes % 16.1 %; Neutrophils # 2.47 10^3/uL (1.8-7.7); Neutrophils % 68.4 %; Nucleated Red Blood Cells % 0 %; Platelet Count 156 10^3/cmm (157-399); Red Blood Count 3.31 10^6/uL (3.85-5.65); Red Cell Distribution Width 14.6 % (12.1-15.1); White Blood Count 3.61 10^3/uL (3.29-11.43)
[2024-12-20 02:09] LABS: Alanine Aminotransferase 9 U/L (0-41); Albumin Level 4.7 g/dL (3.5-5.2); Alkaline Phosphatase 82 U/L (40-130); Aspartate Amino Transferase 12 U/L (0-40); Blood Urea Nitrogen 60 mg/dL (6-20); Calcium 9.1 mg/dL (8.5-10.5); Carbon Dioxide 27 mmol/L (22-29); Chloride 94 mmol/L (98-107); Creatinine Clr Calc Pharmacy 4.9599; Globulin 2.3 g/dL (1.3-4.6); Glomerular Filtration Rate 3.7 mL/min (90-130); Glucose 119 mg/dL (65-115); Osmolality Calculated 310 mOsm/kg (285-295); Sodium 141 mmol/L (136-145); Total Bilirubin 0.3 mg/dL (0.15-1.2)
[2024-12-20 02:28] LABS: Magnesium 3.4 mg/dL (1.7-2.3); Phosphorus 7.4 mg/dL (2.5-4.5)
[2024-12-20 02:59] VITALS: BP 135/63; PULSE 73; RESP 16; O2SAT 99
--- NOTE | 2024-12-20 03:01 | W.ED.GENADLT ---
HPI - General Adult General: Chief complaint: General Medical Stated complaint: Neck Pain\Vomit\Hurts All Over Time Seen by Provider: 12/20/24 02:52 History of Present Illness: Patient presents to the ER with complaining of being sick and in pain for the last couple days. He says the pain is more in his neck and his upper back. Patient says he also has burning in his eyes. Has been around sick contacts. Patient is a dialysis patient he said he missed a treatment on Thursday and treatment today because he could not get out of bed. Patient does think his phosphorus is high because when this usually happens he has itchy. Bumps on his arms. Patient does say he has dialysis at 7:30 in the morning if we can just get his pain under control he will go to dialysis which should make him feel better overall. Related Data Home Medications ?Medication ?Instructions ?Recorded ?Confirmed allopurinol 100 mg tablet 100 mg PO DAILY 02/03/22 09/11/24 citalopram 10 mg tablet (Celexa) 10 mg PO DAILY 07/30/24 09/11/24 doxazosin 4 mg tablet (Cardura) 4 mg PO DAILY 07/30/24 09/11/24 olanzapine 10 mg disintegrating 10 mg PO BEDTIME 07/30/24 09/11/24 tablet (Zyprexa Zydis) trazodone 100 mg tablet 100 mg PO BEDTIME 07/30/24 09/11/24 amlodipine 10 mg tablet 10 mg PO DAILY 09/11/24 09/11/24 clonazepam 1 mg tablet 1 mg PO TID PRN Anxiety 09/11/24 09/11/24 labetalol 100 mg tablet 200 mg PO BID 09/11/24 09/11/24 ondansetron 4 mg disintegrating 4 mg PO Q6H PRN Nausea And Vomiting 09/11/24 09/11/24 tablet sumatriptan succinate 25 mg tablet See Rx Instructions .Route .COMPLEX 09/11/24 09/11/24 venlafaxine 37.5 mg 37.5 mg PO DAILY 09/11/24 09/11/24 capsule,extended release 24 hr vit B,C-folic ac 800 mcg-zinc 12.5 1 tab PO DAILY 09/11/24 09/11/24 mg-selen-D3 2,000 unit-vit E tablet (RenaPlex-D) Previous Rx's ?Medication ?Instructions ?Recorded B-complex with vitamin C 1 tab PO DAILY 30 days #30 tabs 08/04/24 divalproex 500 mg tablet,delayed 500 mg PO BID 30 days #60 tabs 08/04/24 release sevelamer carbonate 800 mg tablet 2,400 mg (3 x 800 mg) PO TIDWM 30 08/04/24 days #270 tabs tacrolimus 1 mg capsule, 1 mg PO BID 30 days #60 caps 08/04/24 immediate-release Allergies Allergy/AdvReac Type Severity Reaction Status Date / Time NSAIDS (Non-Steroidal Allergy Severe unable to Verified 12/19/24 23:47 Anti-Inflamma take due to kidney disease grapefruit Allergy Unknown Verified 12/19/24 23:47 sertraline (From Zoloft) Allergy Unknown Verified 12/19/24 23:47 Review of Systems General: Reports: 10 or more systems reviewed and unremarkable except in HPI and below PFSH ED PFSH: Medical History CKD (chronic kidney disease) stage V requiring chronic dialysis Generalized anxiety disorder Other stimulant dependence, in remission Psychiatric care Problems related to lack of adequate sleep Substance abuse Depression Anxiety Social History Smoking and tobacco/nicotine status: never used tobacco/nicotine Quit status (tobacco/nicotine): has tried quititng Number of times tried to quit tobacco: 4 Second hand smoke exposure: No Physical Exam Const: COMMON NORMALS: no acute distress, average body habitus, patient oriented x3, no limitations, healthy appearing, alert and well nourished HENMT: COMMON NORMALS: normocephalic, atraumatic, hearing grossly normal bilaterally, external ears normal, Normal external nose present, moist oral mucous membranes and oropharynx normal HEAD & SCALP: normocephalic and atraumatic NOSE: Normal external nose present EXTERNAL EAR: Yes external ears normal Neck/C-Spine: COMMON NORMALS: full ROM, no lymphadenopathy, supple, no meningeal signs, no JVD and Thyroid normal THYROID: Thyroid normal Chest: COMMONS NORMALS: normal inspection of the chest and normal palpation of entire chest wall Resp: COMMON NORMALS: normal respiratory effort, No retractions, No use of accessory muscles and clear to auscultation bilaterally AUSCULTATION: clear to auscultation bilaterally Cardio: COMMON NORMALS: no JVD, regular rate, regular rhythm, S1 normal heart sound present, S2 normal heart sound present, No gallops present (Cardio), No clicks present (Cardio), No murmurs present (Cardio) and No rub (Cardio) RATE: regular rate RHYTHM: regular rhythm HEART SOUNDS: S1 normal heart sound present and S2 normal heart sound present GI: COMMON NORMALS: Normal to inspection, nondistended, normoactive bowel sounds present, Soft to palpation, non-tender, No hepatosplenomegaly present and no masses PALPATION: Yes Soft to palpation and Yes No hepatosplenomegaly present Neuro: COMMON NORMALS: patient oriented x3 SENSORIUM/ORIENTATION: Yes alert MENINGEAL SIGNS: Yes no meningeal signs Course Vital Signs: Vital signs: Vital Signs Temperature 97.4 F L 12/19/24 23:39 Pulse Rate 69 12/20/24 04:35 Respiratory Rate 16 12/20/24 04:35 Blood Pressure 117/71 12/20/24 04:35 Pulse Oximetry 98 12/20/24 04:35 Oxygen Delivery Me thod Room Air 12/20/24 04:19 [facility] - General Adult Medical Decision Making Labwork was obtained revealed a white count 3.6, elevated BUN/creatinine of 60 and 16.3, Potassium 4.0,calcium 9.1, phosphorus 7.4, magnesium 3.4, negative for flu COVID RSV. Patient was given 0.5 mg of Dilaudid, patient will be discharging instructed to go straight to dialysis at his 730 appointment this morning. Lab Data 12/20/24 01:31 12/20/24 01:31 Laboratory Results WBC 3.61 10^3/uL (3.29-11.43) 12/20/24 01:31 RBC 3.31 10^6/uL (3.85-5.65) L 12/20/24 01:31 Hgb 10.40 g/dL (11.27-16.99) L 12/20/24 01:31 Hct 31.7 % (37-53) L 12/20/24 01:31 MCV 95.8 fl (82-101) 12/20/24 01:31 MCH 31.4 pg (27-33) 12/20/24 01:31 MCHC 32.8 g/dL (30-55) 12/20/24 01: RDW 14.6 % (12.1-15.1) 12/20/24 01:31 Plt Count 156 10^3/cmm (157-399) L 12/20/24 01:31 MPV 10.9 fL (7.4-10.4) H 12/20/24 01:31 Neut % (Auto) 68.4 % 12/20/24 01: Lymph % (Auto) 9.7 % 12/20/24 01: [place] % (Auto) 16.1 % 12/20/24 01: Eos % (Auto) 4.4 % 12/20/24 01: Baso % (Auto) 1.1 % 12/20/24 01: Neut # (Auto) 2.47 10^3/uL (1.8-7.7) 12/20/24 01: Lymph # (Auto) 0.4 10^3/uL (0.8-4.8) L 12/20/24 01:31 [place] # (Auto) 0.6 10^3/uL (0.2-0.9) 12/20/24 01: Eos # (Auto) 0.2 10^3/uL (0.0-0.8) 12/20/24 01: Baso # (Auto) 0.0 10^3/uL (0.0-0.1) 12/20/24 01: Nucleated RBC % (auto) 0 % 12/20/24 01: Nucleated RBCs # 0.0 /100WBC 12/20/24 01: Sodium 141 mmol/L (136-145) 12/20/24 01: Potassium 4.0 mmol/L (3.5-5.1) 12/20/24 01: Chloride 94 mmol/L (98-107) L 12/20/24 01: Carbon Dioxide 27 mmol/L (22-29) 12/20/24 01: Anion Gap 24.0 (5-19) H 12/20/24 01:31 BUN 60 mg/dL (6-20) H 12/20/24 01:31 Creatinine 16.3 mg/dL (0.7-1.2) H* 12/20/24 01:31 GFR Calculation 3.7 mL/min (90-130) L 12/20/24 01:31 Glucose 119 mg/dL (65-115) H 12/20/24 01:31 Calculated Osmolality 310 mOsm/kg (285-295) H 12/20/24 01:31 Calcium 9.1 mg/dL (8.5-10.5) 12/20/24 01:31 Phosphorus 7.4 mg/dL (2.5-4.5) H 12/20/24 01:31 Magnesium 3.4 mg/dL (1.7-2.3) H 12/20/24 01:31 Total Bilirubin 0.3 mg/dL (0.15-1.2) 12/20/24 01:31 AST 12 U/L (0-40) 12/20/24 01:31 ALT 9 U/L (0-41) 12/20/24 01:31 Alkaline Phosphatase 82 U/L (40-130) 12/20/24 01:31 Total Protein 7.0 g/dL (6.6-8.7) 12/20/24 01:31 Albumin 4.7 g/dL (3.5-5.2) 12/20/24 01:31 Globulin 2.3 g/dL (1.3-4.6) 12/20/24 01:31 Influenza A (PCR) Negative (Negative) 12/20/24 03:01 Influenza Type B (PCR) Negative (Negative) 12/20/24 03:01 RSV (PCR) Negative (Negative) 12/20/24 03:01 SARS-CoV-2 (PCR) Negative (Negative) 12/20/24 03:01 All radiology interpretation(s) finalized by discharge Discharge Plan Discharge Patient Disposition: Home Clinical Impression: ESRD on hemodialysis, Acute neck pain Condition: Stable Prescriptions: No Action trazodone 100 mg tablet 100 mg PO BEDTIME doxazosin [Cardura] 4 mg tablet 4 mg PO DAILY olanzapine [Zyprexa Zydis] 10 mg tablet,disintegrating 10 mg PO BEDTIME citalopram [Celexa] 10 mg Tablet 10 mg PO DAILY B-complex with vitamin C Tablet 1 tab PO DAILY 30 Days Qty: 30 1RF sevelamer carbonate 800 mg Tablet 2,400 mg PO TIDWM 30 Days Qty: 270 1RF divalproex 500 mg tablet,delayed release (DR/EC) 500 mg PO BID 30 Days Qty: 60 1RF tacrolimus 1 mg capsule 1 mg PO BID 30 Days Qty: 60 1RF allopurinol 100 mg Tablet 100 mg PO DAILY venlafaxine 37.5 mg capsule,extended release 24hr 37.5 mg PO DAILY sumatriptan succinate 25 mg tablet See Rx Instructions .ROUTE .COMPLEX Rx Instructions: TAKE 1 TO 2 TABS BY MOUTH EVERY 2 HOURS NEEDED FOR PAIN FOR MIGRAINE HEADACHE-DO NOT EXCEED 4 TABS IN 24 HOURS. clonazepam 1 mg tablet 1 mg PO TID PRN (Reason: Anxiety) labetalol 100 mg tablet 200 mg PO BID ondansetron 4 mg tablet,disintegrating 4 mg PO Q6H PRN (Reason: Nausea And Vomiting) RenaPlex-D 800 mcg-12.5 mg -2,000 unit tablet 1 tab PO DAILY amlodipine 10 mg tablet 10 mg PO DAILY Discharge Orders: Discharge ED (Routine); Ordered 12/20/24 Ordered By: Arturo Lacy Patient Instructions: Back Pain (ED), End Stage Kidney Disease (ED), Acute Neck Pain (ED) Activity Restrictions/Additional Instructions: Your labs in the ER showed you are negative for COVID flu and influenza. It also showed your BUNs/creatinine, magnesium, phosphorus are all high. Please follow-up with dialysis this morning at 730 at your previously scheduled time dialysis is the treatment of choice for all your lab abnormalities.Activity restrictions/additional instructions: Thank you for choosing [facility] for your healthcare needs today. Please realize that you were seen in the emergency department and that we are providing you with an emergency medical screening exam and this may not be a complete and all exclusive of all testing and/or medical workup we may need to determine your element or severity of your illness. It is very important that you follow-up as instructed with your primary care provider or specialist for the additional evaluation and to discuss your medical treatment plan. You may return to the emergency department should you have concerns or if your condition changes or worsens in any way. Print Language: Frisian Coding Level of Care Code ED Through Operator for Loida Menon
[2024-12-20 03:46] LABS: Influenza A NEGATIVE (Negative); Influenza B NEGATIVE (Negative); Respiratory Syncytial Virus Ce NEGATIVE (Negative); SARS-CoV-2 PCR NEGATIVE (Negative)
[2024-12-20 03:53] VITALS: BP 135/63; PULSE 71; RESP 16; O2SAT 98
[2024-12-20 04:12] VITALS: RESP 16; O2SAT 99
[2024-12-20] MEDS: HYDROmorphone 1 mg/mL INJ 1 mL 0.5 MG IVP (04:12)
[2024-12-20 04:19] VITALS: BP 125/84; PULSE 69; RESP 16; O2SAT 95
[2024-12-20 04:35] VITALS: BP 117/71; PULSE 69; RESP 16; O2SAT 98
== END 2024-12-20 04:35 | disposition home or self-care (01) ==
PROVIDERS: Emergency Provider Emergency Medicine
DX: N18.6 End stage renal disease (principal); Z99.2 Dependence on renal dialysis; M54.2 Cervicalgia; Z11.52 Encounter for screening for COVID-19; Z87.891 Personal history of nicotine dependence
CPT/HCPCS: 36415; 80053; 83735; 84100; 85025; 87637; 93005; 96374; 99284; J1171

== ENCOUNTER 2025-01-09 16:49 | Emergency (ER) | payer MEDICARE, MEDICAID, SELFPAY ==
[2025-01-09 16:51] VITALS: PULSE 71; RESP 20; TEMP 36.4; O2SAT 100
--- NOTE | 2025-01-09 17:00 | ED_ITS ---
HPI - Weakness 2 General: Chief complaint: Weakness Stated complaint: headache Time Seen by Provider: 01/09/25 16:50 Source: patient Mode of arrival: ambulatory Limitations: no limitations History of Present Illness: 24-year-old male history of end-stage re nal disease he is on dialysis last dialysis was Thursday states that he had a friend freddy Garcia on Thursday and feels like he is going to withdrawal states he has been feeling shaky has been having pain all over states he missed dialysis today due to that. He denies any vomiting or diarrhea denies any fevers. PFSH ED 2 PFSH: Medical History (Updated 01/09/25 @ 19:15 by Serafin Peña MD) CKD (chronic kidney disease) stage V requiring chronic dialysis Generalized anxiety disorder Other stimulant dependence, in remission Problems related to lack of adequate sleep Substance abuse Depression Anxiety Social History Smoking and tobacco/nicotine status: never used tobacco/nicotine Quit status (tobacco/nicotine): has tried quititng Number of times tried to quit tobacco: 4 Second hand smoke exposure: No Course 2 Vital Signs: Vital signs: Vital Signs Temperature 97.5 F L 01/09/25 16:51 Pulse Rate 69 01/09/25 18:31 Respiratory Rate 20 H 01/09/25 16:51 Pulse Oximetry 100 01/09/25 18:31 Oxygen Delivery Me thod Room Air 01/09/25 16:51 MDM - Weakness Medical Decision Making Patient presents here with back pain headache concerns of withdrawals from his Klonopin. He feels much improved here after meds some mild hyperkalemia did give him a dose insulin he states he is getting dialysis tomorrow he stable for discharge did write him 10 Klonopin he is follow-up with PCP is to receive dialysis schedule tomorrow return if worsening. Medical Records I reviewed the patient's medical records. Lab Data I reviewed the patient's lab results. 01/09/25 17:04 01/09/25 17:04 Laboratory Results WBC 4.96 10^3/uL (3.29-11.43) 01/09/25 17:04 RBC 3.60 10^6/uL (3.85-5.65) L 01/09/25 17:04 Hgb 11.10 g/dL (11.27-16.99) L 01/09/25 17:04 Hct 35.0 % (37-53) L 01/09/25 17:04 MCV 97.2 fl (82-101) 01/09/25 17:04 MCH 30.8 pg (27-33) 01/09/25 17:04 MCHC 31.7 g/dL (30-55) 01/09/25 17:04 RDW 14.6 % (12.1-15.1) 01/09/25 17:04 Plt Count 187 10^3/cmm (157-399) 01/09/25 17:04 MPV 11.5 fL (7.4-10.4) H 01/09/25 17:04 Neut % (Auto) 67.2 % 01/09/25 17:04 Lymph % (Auto) 16.3 % 01/09/25 17:04 [place] % (Auto) 10.5 % 01/09/25 17:04 Eos % (Auto) 4.2 % 01/09/25 17:04 Baso % (Auto) 1.4 % 01/09/25 17:04 Neut # (Auto) 3.33 10^3/uL (1.8-7.7) 01/09/25 17:04 Lymph # (Auto) 0.8 10^3/uL (0.8-4.8) 01/09/25 17:04 [place] # (Auto) 0.5 10^3/uL (0.2-0.9) 01/09/25 17:04 Eos # (Auto) 0.2 10^3/uL (0.0-0.8) 01/09/25 17:04 Baso # (Auto) 0.1 10^3/uL (0.0-0.1) 01/09/25 17:04 Nucleated RBC % (auto) 0 % 01/09/25 17:04 Nucleated RBCs # 0.0 /100WBC 01/09/25 17:04 Sodium 140 mmol/L (136-145) 01/09/25 17:04 Potassium 5.8 mmol/L (3.5-5.1) H 01/09/25 17:04 Chloride 98 mmol/L (98-107) 01/09/25 17:04 Carbon Dioxide 19 mmol/L (22-29) L 01/09/25 17:04 Anion Gap 28.8 (5-19) H 01/09/25 17:04 BUN 74 mg/dL (6-20) H 01/09/25 17:04 Creatinine 11.0 mg/dL (0.7-1.2) H* 01/09/25 17:04 GFR Calculation 5.8 mL/min (90-130) L 01/09/25 17:04 Glucose 75 mg/dL (65-115) 01/09/25 17:04 POC Glucose 101 mg/dL (70-110) 01/09/25 19:12 Calculated Osmolality 311 mOsm/kg (285-295) H 01/09/25 17:04 Calcium 9.6 mg/dL (8.5-10.5) 01/09/25 17:04 Total Bilirubin 0.3 mg/dL (0.15-1.2) 01/09/25 17:04 AST 15 U/L (0-40) 01/09/25 17:04 ALT 8 U/L (0-41) 01/09/25 17:04 Alkaline Phosphatase 92 U/L (40-130) 01/09/25 17:04 Total Protein 7.2 g/dL (6.6-8.7) 01/09/25 17:04 Albumin 4.9 g/dL (3.5-5.2) 01/09/25 17:04 Globulin 2.3 g/dL (1.3-4.6) 01/09/25 17:04 All radiology interpretation(s) finalized by discharge EKG Data EKG 1: I personally reviewed and interpreted this EKG as follows: EKG interpretation date: 01/09/25 EKG interpretation time: 17:02 Interpretation: nsr hr [address] or t wave abnormalities qrs 98 qtc 426 Discharge Plan Discharge Patient Disposition: Home Clinical Impression: ESRD on dialysis, Generalized anxiety disorder, Head ache Condition: Stable Prescriptions: New clonazepam [Klonopin] 1 mg tablet 1 mg PO BID PRN (Reason: anxiety) Qty: 10 0RF No Action trazodone 100 mg tablet 100 mg PO BEDTIME doxazosin [Cardura] 4 mg tablet 4 mg PO DAILY olanzapine [Zyprexa Zydis] 10 mg tablet,disintegrating 10 mg PO BEDTIME citalopram [Celexa] 10 mg Tablet 10 mg PO DAILY B-complex with vitamin C Tablet 1 tab PO DAILY 30 Days Qty: 30 1RF sevelamer carbonate 800 mg Tablet 2,400 mg PO TIDWM 30 Days Qty: 270 1RF divalproex 500 mg tablet,delayed release (DR/EC) 500 mg PO BID 30 Days Qty: 60 1RF tacrolimus 1 mg capsule 1 mg PO BID 30 Days Qty: 60 1RF allopurinol 100 mg Tablet 100 mg PO DAILY venlafaxine 37.5 mg capsule,extended release 24hr 37.5 mg PO DAILY sumatriptan succinate 25 mg tablet See Rx Instructions .ROUTE .COMPLEX Rx Instructions: TAKE 1 TO 2 TABS BY MOUTH EVERY 2 HOURS NEEDED FOR PAIN FOR MIGRAINE HEADACHE-DO NOT EXCEED 4 TABS IN 24 HOURS. clonazepam 1 mg tablet 1 mg PO TID PRN (Reason: Anxiety) labetalol 100 mg tablet 200 mg PO BID ondansetron 4 mg tablet,disintegrating 4 mg PO Q6H PRN (Reason: Nausea And Vomiting) RenaPlex-D 800 mcg-12.5 mg -2,000 unit tablet 1 tab PO DAILY amlodipine 10 mg tablet 10 mg PO DAILY Discharge Orders: Discharge ED (Routine); Ordered 01/09/25 Ordered By: Serafin Peña Discharge Diet: Advance as tolerated Discharge Activity: Resume usual activity Patient Instructions: End Stage Kidney Disease (ED) Print Language: Kazakh Coding Level of Care Code ED Team Driver for [facility] Fwd Related Data Home Medications ?Medication ?Instructions ?Recorded ?Confirmed allopurinol 100 mg tablet 100 mg PO DAILY 02/03/22 citalopram 10 mg tablet (Celexa) 10 mg PO DAILY 09/11/24 doxazosin 4 mg tablet (Cardura) 4 mg PO DAILY 07/30/24 09/11/24 olanzapine 10 mg disintegrating 10 mg PO BEDTIME 07/3009/11/24 tablet (Zyprexa Zydis) trazodone 100 mg tablet 100 mg PO BEDTIME 07/30/24 1 11/11/23 amlodipine 10 mg tablet 10 mg PO DAILY 09/11/2408/20 clonazepam 1 mg tablet 1 mg PO TID PRN Anxiety 08/2009/11/24 labetalol 100 mg tablet 200 mg PO BID 09/11/2409/11 ondansetron 4 mg disintegrating 4 mg PO Q6H PRN Nausea And Vomiting 09/11/24 09/11/24 tablet sumatriptan succinate 25 mg tablet See Rx Instructions .Route .COMPLEX 09/11/24 09/11/24 venlafaxine 37.5 mg 37.5 mg PO DAILY 09/11/24 capsule,extended release 24 hr vit B,C-folic ac 800 mcg-zinc 12.5 1 tab PO DAILY 08/2009/11/24 mg-selen-D3 2,000 unit-vit E tablet (RenaPlex-D) Previous Rx's ?Medication ?Instructions ?Recorded B-complex with vitamin C 1 tab PO DAILY 30 days #30 t abs 08/04/24 divalproex 500 mg tablet,delayed 500 mg PO BID 30 days #60 tabs 08/04/24 release sevelamer carbonate 800 mg tablet 2,400 mg (3 x 800 mg ) PO TIDWM 30 08/04/24 days #270 tabs tacrolimus 1 mg capsule, 1 mg PO BID 30 days #60 caps 08/04/24 immediate-release clonazepam 1 mg tablet (Klonopin) 1 mg PO BID PRN anxi ety #10 tabs 01/09/25 Allergies Allergy/AdvReac Type Severity Reaction Status Date / Time NSAIDS (Non-Steroidal Allergy Severe unable to Verified 12/19/24 23:47 Anti-Inflamma take due to kidney disease grapefruit Allergy Unknown Verified 12/19/24 23:47 sertraline (From Zoloft) Allergy Unknown Verified 12/19/24 23:47
--- NOTE | 2025-01-09 17:02 | ECG_ITS ---
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 Measurements Intervals [place] Rate: 62 P: 78 MS: 142 QRS: 89 QRSD: 98 T: 74 QT: 420 QTc: 429 Interpretive Statements SINUS RHYTHM Compared to ECG 12/19/2024 23:50:16 No significant changes Electronically Signed On 01-09-2025 20:56:50 CDT by Nuha Garcia M.D. [email or web address]
[2025-01-09] MEDS: LORazepam 2 mg/mL INJ 1 mL 1 MG IVP (17:07)
[2025-01-09] MEDS: morphine 4 mg/mL SDV 1 mL IVP (17:07)
[2025-01-09 17:11] LABS: Basophils # 0.1 10^3/uL (0.0-0.1); Basophils % 1.4 %; Eosinophils # 0.2 10^3/uL (0.0-0.8); Eosinophils % 4.2 %; Lymphocytes # 0.8 10^3/uL (0.8-4.8); Lymphocytes % 16.3 %; Mean Corpuscular HGB Conc 31.7 g/dL (30-55); Mean Corpuscular Hemoglobin 30.8 pg (27-33); Mean Corpuscular Volume 97.2 fl (82-101); Mean Platelet Volume 11.5 fL (7.4-10.4); Monocytes # 0.5 10^3/uL (0.2-0.9); Monocytes % 10.5 %; Neutrophils # 3.33 10^3/uL (1.8-7.7); Neutrophils % 67.2 %; Nucleated Red Blood Cells % 0 %; Platelet Count 187 10^3/cmm (157-399); Red Cell Distribution Width 14.6 % (12.1-15.1); White Blood Count 4.96 10^3/uL (3.29-11.43)
[2025-01-09 17:32] LABS: Alanine Aminotransferase 8 U/L (0-41); Albumin Level 4.9 g/dL (3.5-5.2); Alkaline Phosphatase 92 U/L (40-130); Anion Gap 28.8 (5-19); Aspartate Amino Transferase 15 U/L (0-40); Blood Urea Nitrogen 74 mg/dL (6-20); Calcium 9.6 mg/dL (8.5-10.5); Carbon Dioxide 19 mmol/L (22-29); Chloride 98 mmol/L (98-107); Creatinine Clr Calc Pharmacy 7.1737; Globulin 2.3 g/dL (1.3-4.6); Glomerular Filtration Rate 5.8 mL/min (90-130); Glucose 75 mg/dL (65-115); Osmolality Calculated 311 mOsm/kg (285-295); Potassium 5.8 mmol/L (3.5-5.1); Sodium 140 mmol/L (136-145); Total Bilirubin 0.3 mg/dL (0.15-1.2); Total Protein 7.2 g/dL (6.6-8.7)
[2025-01-09] MEDS: HYDROmorphone 0.5 MG/0.5 ML INJ IVP (18:27)
[2025-01-09] MEDS: insulin regular-human 100 units/1 mL 10 UNIT IVP (18:28)
[2025-01-09] MEDS: dextrose 10% 250 ML 1000 ML IV (18:30)
[2025-01-09 18:31] VITALS: PULSE 69; O2SAT 100
[2025-01-09 19:15] LABS: Glucose Point of Care 101 mg/dL (70-110)
[2025-01-09 19:41] VITALS: BP 151/115; PULSE 68; O2SAT 100
== END 2025-01-09 19:37 | disposition home or self-care (01) ==
PROVIDERS: Emergency Provider Emergency Medicine
DX: N18.6 End stage renal disease (principal); Z99.2 Dependence on renal dialysis; F41.8 Other specified anxiety disorders; R51.9 Headache, unspecified; Z72.0 Tobacco use
CPT/HCPCS: 36416; 80053; 82962; 85025; 93005; 96361; 96374; 96375; 99284; J1171; J1815; J2060; J2270; J7799

== ENCOUNTER 2025-02-08 08:09 | Emergency (ER) | payer MEDICARE, MEDICAID, SELFPAY ==
[2025-02-08 08:22] VITALS: BP 143/98; PULSE 75; RESP 18; TEMP 36.3; O2SAT 99; BMI 20.7
[2025-02-08 09:00] VITALS: BP 148/97
[2025-02-08] MEDS: labetalol 5 mg/mL SDV 20mL 20 MG IVP (09:09)
[2025-02-08] MEDS: acetaminophen 500 mg Tablet 1000 MG PO (09:09)
[2025-02-08] MEDS: CLONazepam 0.5 mg Tablet 1 MG PO (09:10)
[2025-02-08] MEDS: prochlorperazine 10 mg/2 mL Inj IVP (09:20)
[2025-02-08] MEDS: diphenhydrAMINE 50 mg/mL SDV 1mL IVP (09:20)
[2025-02-08] MEDS: sodium chloride 0.9% 500 ML 999 ML IV (09:21)
[2025-02-08 09:35] VITALS: PULSE 74; O2SAT 97
[2025-02-08 10:11] VITALS: BP 129/92; PULSE 76; O2SAT 99
--- NOTE | 2025-02-08 10:11 | W.ED.HA ---
HPI - Headache General: Chief Complaint: Headache Stated Complaint: Headache Time Seen by Provider: 02/08/25 08:20 History of Present Illness: 24-year-old male presents emergency department reporting a headache for 2 hours prior to arrival. No thunderclap headache. In fact, patient states his headache has been persistent for about 1 week. He has a history of uncontrolled hypertension. He is ESRD on dialysis Thursday. 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 He reports this morning he has taken his hydralazine, amlodipine, labetalol. Blood pressure 143/98 on arrival. Patient reports the headache has been persistent since discharge from the hospital. This blood pressure is actually quite good for him. He usually runs in the 160s to 180s systolic. No neurologic symptoms, fevers, trauma. He reports some light sensitivity and nausea without vomiting. Patient reports he does have a history of headaches even before his hospitalization last week. Associated symptoms: Deny chest pain, fever(s), rash, syncope or vomiting Related Data Home Medications ?Medication ?Instructions ?Recorded ?Confirmed allopurinol 100 mg tablet 100 mg PO DAILY 02/03/22 09/11/24 citalopram 10 mg tablet (Celexa) 10 mg PO DAILY 07/30/24 09/11/24 doxazosin 4 mg tablet (Cardura) 4 mg PO DAILY 07/30/24 09/11/24 olanzapine 10 mg disintegrating 10 mg PO BEDTIME 07/30/24 09/11/24 tablet (Zyprexa Zydis) trazodone 100 mg tablet 100 mg PO BEDTIME 07/30/24 09/11/24 amlodipine 10 mg tablet 10 mg PO DAILY 09/11/24 09/11/24 clonazepam 1 mg tablet 1 mg PO TID PRN Anxiety 09/11/24 09/11/24 labetalol 100 mg tablet 200 mg PO BID 09/11/24 09/11/24 ondansetron 4 mg disintegrating 4 mg PO Q6H PRN Nausea And Vomiting 09/11/24 09/11/24 tablet sumatriptan succinate 25 mg tablet See Rx Instructions .Route .COMPLEX 09/11/24 09/11/24 venlafaxine 37.5 mg 37.5 mg PO DAILY 09/11/24 09/11/24 capsule,extended release 24 hr vit B,C-folic ac 800 mcg-zinc 12.5 1 tab PO DAILY 09/11/24 09/11/24 mg-selen-D3 2,000 unit-vit E tablet (RenaPlex-D) Previous Rx's ?Medication ?Instructions ?Recorded B-complex with vitamin C 1 tab PO DAILY 30 days #30 tabs 08/04/24 divalproex 500 mg tablet,delayed 500 mg PO BID 30 days #60 tabs 08/04/24 release sevelamer carbonate 800 mg tablet 2,400 mg (3 x 800 mg) PO TIDWM 30 08/04/24 days #270 tabs tacrolimus 1 mg capsule, 1 mg PO BID 30 days #60 caps 08/04/24 immediate-release clonazepam 1 mg tablet (Klonopin) 1 mg PO BID PRN anxiety #10 tabs 01/09/25 Allergies Allergy/AdvReac Type Severity Reaction Status Date / Time NSAIDS (Non-Steroidal Allergy Severe unable to Verified 12/19/24 23:47 Anti-Inflamma take due to kidney disease grapefruit Allergy Unknown Verified 12/19/24 23:47 sertraline (From Zoloft) Allergy Unknown Verified 12/19/24 23:47 Review of Systems General: Reports: 10 or more systems reviewed and unremarkable except in HPI and below Const: Denies: fever(s), chills or body aches Eyes: Denies: change in vision ENMT: Denies: throat pain Card: Denies: chest pain, edema or syncope Resp: Denies: dyspnea or productive cough GI: Denies: abdominal pain, vomiting or diarrhea Musc: Denies: neck pain, back pain, extremity pain or extremity swelling Skin/Breast: Denies: rash or erythema Neuro: Denies: numbness in extremities, weakness in extremities, lack of coordination or difficulty walking PFSH ED PFSH: Medical History (Updated 02/08/25 @ 10:13 by Mahamed Smith MD) CKD (chronic kidney disease) stage V requiring chronic dialysis Generalized anxiety disorder Other stimulant dependence, in remission Problems related to lack of adequate sleep Substance abuse Depression Anxiety Social History Smoking and tobacco/nicotine status: never used tobacco/nicotine Quit status (tobacco/nicotine): has tried quititng Number of times tried to quit tobacco: 4 Second hand smoke exposure: No Physical Exam Const: COMMON NORMALS: no limitations, alert and well nourished EXAM LIMITATIONS: no altered mental status HENMT: COMMON NORMALS: normocephalic, atraumatic and external ears normal HEAD & SCALP: normocephalic and atraumatic EXTERNAL EAR: Yes external ears normal MOUTH: no muffled voice Eye: COMMON NORMALS: EOMs intact bilaterally, conjunctivae normal and no scleral icterus CONJUNCTIVA: Yes conjunctivae normal Neck/C-Spine: COMMON NORMALS: no JVD GENERAL: Yes normal visual inspection and Yes trachea midline Resp: COMMON NORMALS: normal respiratory effort and No use of accessory muscles Cardio: COMMON NORMALS: no JVD, regular rate and regular rhythm RATE: regular rate RHYTHM: regular rhythm Extremity: COMMON NORMALS: normal to inspection Neuro: COMMON NORMALS: moves all extremities, no focal motor deficits and no sensory deficits noted SENSORIUM/ORIENTATION: Yes alert SPEECH: speech normal Psych: COMMON NORMALS: mental status grossly normal, Normal thought process present, cooperative, normal affect and speech normal SPEECH: Yes normal speech THOUGHT PROCESS: Normal thought process present Skin: COMMON NORMALS: no rashes or lesions noted, turgor normal and no jaundice GENERAL SKIN EXAM: no rashes or lesions noted and turgor normal Course Vital Signs: Vital signs: Vital Signs Temperature 97.4 F L 02/08/25 08:22 Pulse Rate 74 02/08/25 09:35 Respiratory Rate 18 02/08/25 08:22 Blood Pressure 148/97 02/08/25 09:00 Pulse Oximetry 97 02/08/25 09:35 Oxygen Delivery Me thod Room Air 02/08/25 08:22 MDM - Headache Medical Decision Making 24-year-old male with recent hypertension related encephalopathy with reported seizures from it. He was treated and discharged on multiple blood pressure medications. He endorses he did take his blood pressure medications prior to coming here. He has had a headache since he left the hospital. He reports location is in the back of his head and in the front of his head and behind his eyes. His examination today is reassuring. Low suspicion for subarachnoid hemorrhage, meningitis, dural venous sinus thrombosis, press, stroke, and other malignant causes of headache. There is some concern there may be intention for secondary gain. Patient was given Tylenol, clonazepam, Compazine and Benadryl. Update:1010 am BP 129/92 Patient resting comfortably. Dialysis is at noon. Pt will be discharged. No radiology studies performed this visit Discharge Plan Discharge Patient Disposition: Home Clinical Impression: Headache, Elevated blood pressure reading Condition: Stable Prescriptions: No Action trazodone 100 mg tablet 100 mg PO BEDTIME doxazosin [Cardura] 4 mg tablet 4 mg PO DAILY olanzapine [Zyprexa Zydis] 10 mg tablet,disintegrating 10 mg PO BEDTIME citalopram [Celexa] 10 mg Tablet 10 mg PO DAILY B-complex with vitamin C Tablet 1 tab PO DAILY 30 Days Qty: 30 1RF sevelamer carbonate 800 mg Tablet 2,400 mg PO TIDWM 30 Days Qty: 270 1RF divalproex 500 mg tablet,delayed release (DR/EC) 500 mg PO BID 30 Days Qty: 60 1RF tacrolimus 1 mg capsule 1 mg PO BID 30 Days Qty: 60 1RF allopurinol 100 mg Tablet 100 mg PO DAILY venlafaxine 37.5 mg capsule,extended release 24hr 37.5 mg PO DAILY sumatriptan succinate 25 mg tablet See Rx Instructions .ROUTE .COMPLEX Rx Instructions: TAKE 1 TO 2 TABS BY MOUTH EVERY 2 HOURS NEEDED FOR PAIN FOR MIGRAINE HEADACHE-DO NOT EXCEED 4 TABS IN 24 HOURS. clonazepam 1 mg tablet 1 mg PO TID PRN (Reason: Anxiety) labetalol 100 mg tablet 200 mg PO BID ondansetron 4 mg tablet,disintegrating 4 mg PO Q6H PRN (Reason: Nausea And Vomiting) RenaPlex-D 800 mcg-12.5 mg -2,000 unit tablet 1 tab PO DAILY amlodipine 10 mg tablet 10 mg PO DAILY clonazepam [Klonopin] 1 mg tablet 1 mg PO BID PRN (Reason: anxiety) Qty: 10 0RF Discharge Orders: Discharge ED (Routine); Ordered 02/08/25 Ordered By: Mahamed Smith Referrals: Renetta Cole NP [Primary Care Provider] - Patient Instructions: Hypertension (ED), General Headache (ED), Pain Management Activity Restrictions/Additional Instructions: Your blood pressure has been controlled. You have received multiple medications for your headache. Please proceed to dialysis today for your noon appointment, 02/08/2025 Please read all discharge instructions and abide by recommendations and return precautions. Make an appointment to follow-up with your primary care doctor as directed for follow-up. Return to ER if getting worse or other emergent symptoms. Print Language: Guinean Coding Level of Care Code ED Patient Services Clerk for Loida Menon
[2025-02-08 10:28] VITALS: BP 125/84; PULSE 74; O2SAT 97
== END 2025-02-08 10:34 | disposition home or self-care (01) ==
PROVIDERS: Emergency Provider Emergency Medicine; PCP Nurse Practitioner Family
DX: R51.9 Headache, unspecified (principal); R03.0 Elevated blood-pressure reading, without diagnosis of hypertension; N18.5 Chronic kidney disease, stage 5; Z99.2 Dependence on renal dialysis
CPT/HCPCS: 96361; 96374; 96375; 99284; J0780; J1200; J3490; J7040; J9999

== ENCOUNTER 2025-02-12 05:59 | Inpatient (IN) | payer MEDICARE, MEDICAID, SELFPAY ==
[2025-02-12] VITALS (50 sets, daily range): BP systolic 117–165; BP diastolic 77–113; PULSE 66–108; RESP 2–33; TEMP 36.1–36.6; O2SAT 88–100; BMI 24.5; BMI 25.8
--- NOTE | 2025-02-12 06:11 | XRR_ITS ---
PROCEDURE INFORMATION: Exam: XR Chest Exam date and time: 02/12/2025 6:14 AM Age: 24 years old Clinical indication: Cough and shortness of breath; Cough with SOB TECHNIQUE: Imaging protocol: Radiologic exam of the chest. Views: 1 view. COMPARISON: CT abdomen pelvis con [id number] 05/27/2024 5:18 PM FINDINGS: Lungs: There is moderately extensive right lower lobe infiltrate. Pleural spaces: Unremarkable. No pleural effusion. No pneumothorax. Heart/Mediastinum: The heart size is not well assessed. Bones/joints: Unremarkable. XR/XR chest 1V portable [id number] IMPRESSION: Moderately extensive right lower lobe infiltrate.
--- NOTE | 2025-02-12 06:11 | CTR_ITS ---
PROCEDURE INFORMATION: Exam: CT Head Without Contrast Exam date and time: 02/12/2025 6:22 AM Age: 24 years old Clinical indication: Pain; Headache; Persistent BHANDARI x 1 week TECHNIQUE: Imaging protocol: Computed tomography of the head without contrast. Radiation optimization: All CT scans at this facility use at least one of these dose optimization techniques: automated exposure control; mA and/or kV adjustment per patient size (includes targeted exams where dose is matched to clinical indication); or iterative reconstruction. COMPARISON: CT head wo con* [id number] 08/07/2022 12:38 PM RADIATION DOSE METRICS: Total DLP (mGy-cm): 999.78 FINDINGS: Brain: Normal. No hemorrhage. Unremarkable white matter. No mass effect. Cerebral ventricles: No ventriculomegaly. Paranasal sinuses: There is mild sphenoid sinus mucosal thickening. Mastoid air cells: Visualized mastoid air cells are well aerated. Bones: Unremarkable. No acute fracture. Soft tissues: Unremarkable. CT/CT head wo con* [id number] IMPRESSION: No acute intracranial abnormality.
[2025-02-12 06:21] LABS: Basophils # 0.1 10^3/uL (0.0-0.1); Basophils % 0.5 %; Eosinophils # 0.3 10^3/uL (0.0-0.8); Eosinophils % 2.9 %; Hematocrit 29.4 % (37-53); Lymphocytes # 0.8 10^3/uL (0.8-4.8); Lymphocytes % 8.1 %; Mean Corpuscular HGB Conc 31.3 g/dL (30-55); Mean Corpuscular Hemoglobin 30.9 pg (27-33); Mean Corpuscular Volume 98.7 fl (82-101); Mean Platelet Volume 10.8 fL (7.4-10.4); Monocytes # 1.4 10^3/uL (0.2-0.9); Monocytes % 13.8 %; Neutrophils # 7.29 10^3/uL (1.8-7.7); Neutrophils % 74.3 %; Nucleated Red Blood Cells % 0 %; Platelet Count 123 10^3/cmm (157-399); Red Blood Count 2.98 10^6/uL (3.85-5.65); Red Cell Distribution Width 15.6 % (12.1-15.1); White Blood Count 9.82 10^3/uL (3.29-11.43)
--- NOTE | 2025-02-12 06:30 | W.ED.HA ---
HPI - Headache General: Chief Complaint: Headache Stated Complaint: headache Time Seen by Provider: 02/12/25 06:01 Source: patient and EMS Mode of arrival: EMS Limitations: no limitations History of Present Illness: 24-year-old male history of end-stage renal disease on dialysis he receives dialysis Thursday. He states he had missed dialysis last Thursday he did not get his full session on Thursday due to having a headache. Has had a history of headache in the past with migraines states that this headache it started 5 days ago rates it a 6 out of 10 he states he is also developed cough and shortness of breath that started yesterday he is requiring 3 L of oxygen here denies any fever Associated symptoms: Deny chest pain, fever(s), nausea, rash or vomiting Related Data Home Medications ?Medication ?Instructions ?Recorded ?Confirmed trazodone 100 mg tablet 100 mg PO BEDTIME 07/30/24 02/08/25 amlodipine 10 mg tablet 10 mg PO DAILY 09/11/24 02/08/25 labetalol 100 mg tablet 200 mg PO BID 09/11/24 02/08/25 sumatriptan succinate 25 mg tablet See Rx Instructions .Route .COMPLEX 09/11/24 02/08/25 venlafaxine 37.5 mg 37.5 mg PO DAILY 09/11/24 02/08/25 capsule,extended release 24 hr vit B,C-folic ac 800 mcg-zinc 12.5 1 tab PO DAILY 09/11/24 02/08/25 mg-selen-D3 2,000 unit-vit E tablet (RenaPlex-D) hydralazine 50 mg tablet See Rx Instructions .Route .COMPLEX 02/08/25 02/08/25 hydrocodone 5 mg-acetaminophen 325 1 tab PO QID PRN Pain 02/08/25 02/08/25 mg tablet levetiracetam 500 mg tablet See Rx Instructions .Route .COMPLEX 02/08/25 02/08/25 losartan 25 mg tablet 25 mg PO DAILY 02/08/25 02/08/25 Previous Rx's ?Medication ?Instructions ?Recorded B-complex with vitamin C 1 tab PO DAILY 30 days #30 tabs 08/04/24 divalproex 500 mg tablet,delayed 500 mg PO BID 30 days #60 tabs 08/04/24 release sevelamer carbonate 800 mg tablet 2,400 mg (3 x 800 mg) PO TIDWM 30 08/04/24 days #270 tabs clonazepam 1 mg tablet (Klonopin) 1 mg PO BID PRN anxiety #10 tabs 01/09/25 Allergies Allergy/AdvReac Type Severity Reaction Status Date / Time NSAIDS (Non-Steroidal Allergy Severe unable to Verified 12/19/24 23:47 Anti-Inflamma take due to kidney disease grapefruit Allergy Unknown Verified 12/19/24 23:47 sertraline (From Zoloft) Allergy Unknown Verified 12/19/24 23:47 Review of Systems Const: Denies: fever(s), chills, body aches or change in appetite ENMT: Denies: throat pain or dental pain Card: Denies: chest pain Resp: Reports: dyspnea and non-productive cough GI: Denies: abdominal pain, nausea, vomiting or diarrhea : Denies: dysuria Musc: Denies: neck pain or back pain Skin/Breast: Denies: rash Neuro: Reports: headache(s) PFSH ED PFSH: Medical History CKD (chronic kidney disease) stage V requiring chronic dialysis Generalized anxiety disorder Other stimulant dependence, in remission Problems related to lack of adequate sleep Substance abuse Depression Anxiety Social History Smoking and tobacco/nicotine status: never used tobacco/nicotine Quit status (tobacco/nicotine): has tried quititng Number of times tried to quit tobacco: 4 Second hand smoke exposure: No Physical Exam Const: COMMON NORMALS: patient oriented x3 HENMT: COMMON NORMALS: normocephalic and atraumatic HEAD & SCALP: normocephalic and atraumatic Eye: COMMON NORMALS: Equal, round and reactive pupils present and EOMs intact bilaterally PUPIL: Yes Equal, round and reactive pupils present Neck/C-Spine: COMMON NORMALS: full ROM and supple Chest: COMMONS NORMALS: normal inspection of the chest Resp: EFFORT & INSPECTION: Yes respiratory distress AUSCULTATION: rales Cardio: COMMON NORMALS: regular rate, regular rhythm and No murmurs present (Cardio) RATE: regular rate RHYTHM: regular rhythm GI: COMMON NORMALS: Normal to inspection, nondistended, normoactive bowel sounds present, Soft to palpation, non-tender and no masses PALPATION: Yes Soft to palpation Extremity: COMMON NORMALS: normal to inspection and full ROM Neuro: COMMON NORMALS: patient oriented x3, moves all extremities and no focal motor deficits Psych: COMMON NORMALS: mental status grossly normal, Normal thought process present and cooperative THOUGHT PROCESS: Normal thought process present Skin: COMMON NORMALS: no rashes or lesions noted and no wounds GENERAL SKIN EXAM: no rashes or lesions noted Course Vital Signs: Vital signs: Vital Signs Temperature 98 F 02/12/25 06:06 Pulse Rate 93 02/12/25 06:40 Respiratory Rate 19 H 02/12/25 06:10 Blood Pressure 158/113 02/12/25 06:10 Pulse Oximetry 94 02/12/25 06:40 Oxygen Delivery Me thod Oxymask 02/12/25 06:40 Oxygen Flow Rate 6 02/12/25 06:40 MDM - Headache Medical Decision Making Patient presents here with right lower lobe infiltrate with respiratory failure with hypoxia he also has hyperkalemia likely due to missing dialysis did give him insulin D50 started on antibiotics will BiPAP spoke to hospitalist will admit to ICU will speak to nephrology as well. Medical Records I reviewed the patient's medical records. Lab Data I reviewed the patient's lab results. 02/12/25 06:18 02/12/25 06:18 Radiology Impressions Chest X-Ray 02/12/25 06:11 IMPRESSION: Moderately extensive right lower lobe infiltrate. Head CT 02/12/25 06:11 IMPRESSION: No acute intracranial abnormality. Laboratory Results WBC 9.82 10^3/uL (3.29-11.43) 02/12/25 06:18 RBC 2.98 10^6/uL (3.85-5.65) L 02/12/25 06:18 Hgb 9.20 g/dL (11.27-16.99) L 02/12/25 06:18 Hct 29.4 % (37-53) L 02/12/25 06:18 MCV 98.7 fl (82-101) 02/12/25 06:18 MCH 30.9 pg (27-33) 02/12/25 06:18 MCHC 31.3 g/dL (30-55) 02/12/25 06:18 RDW 15.6 % (12.1-15.1) H 02/12/25 06:18 Plt Count 123 10^3/cmm (157-399) L 02/12/25 06:18 MPV 10.8 fL (7.4-10.4) H 02/12/25 06:18 Neut % (Auto) 74.3 % 02/12/25 06:18 Lymph % (Auto) 8.1 % 02/12/25 06:18 [place] % (Auto) 13.8 % 02/12/25 06:18 Eos % (Auto) 2.9 % 02/12/25 06:18 Baso % (Auto) 0.5 % 02/12/25 06:18 Neut # (Auto) 7.29 10^3/uL (1.8-7.7) 02/12/25 06:18 Lymph # (Auto) 0.8 10^3/uL (0.8-4.8) 02/12/25 06:18 [place] # (Auto) 1.4 10^3/uL (0.2-0.9) H 02/12/25 06:18 Eos # (Auto) 0.3 10^3/uL (0.0-0.8) 02/12/25 06:18 Baso # (Auto) 0.1 10^3/uL (0.0-0.1) 02/12/25 06:18 Nucleated RBC % (auto) 0 % 02/12/25 06:18 Nucleated RBCs # 0.0 /100WBC 02/12/25 06:18 Specimen Type Arterial 02/12/25 06:42 Sample Site Radial, left 02/12/25 06:42 ABG pH 7.45 (7.35-7.45) 02/12/25 06:42 ABG pCO2 39.7 mmHg (35-45) 02/12/25 06:42 ABG pO2 55.6 mmHg (80.0-100.0) L 02/12/25 06:42 ABG HCO3 27.6 mmol/L (22-26) H 02/12/25 06:42 ABG O2 Saturation 89.5 02/12/25 06:42 ABG Base Excess 3.3 mmol/L (-2.0-2.0) H 02/12/25 06:42 Paul Test Pos 02/12/25 06:42 A-a O2 Gradient 6.0 mmHg (5-10) 02/12/25 06:42 Hematocrit 27.9 % (42-52) L 02/12/25 06:42 Hgb O2 Saturation 85.9 % (95-100) L 02/12/25 06:42 Carboxyhemoglobin 2.8 %THgb (0.4-20.1) 02/12/25 06:42 Methemoglobin 1.2 % (0.4-1.5) 02/12/25 06:42 Total Hemoglobin 9.1 g/dL (14-18) L 02/12/25 06:42 Sodium 138.0 mmol/L (131-143) 02/12/25 06:42 Potassium 6.1 mmol/L (3.5-5.0) H 02/12/25 06:42 Glucose 75.0 mg/dL (70-115) 02/12/25 06:42 Ionized Calcium 1.1 mmol/L (1.1-1.4) 02/12/25 06:42 O2 Delivery Device Oxy mask 02/12/25 06:42 O2 Liters/Min 4.0 % 02/12/25 06:42 Industrial Sociologist ID [email or web address] 02/12/25 06:42 Sodium 138 mmol/L (136-145) 02/12/25 06:18 Potassium 6.6 mmol/L (3.5-5.1) H* 02/12/25 06:18 Chloride 98 mmol/L (98-107) 02/12/25 06:18 Carbon Dioxide 23 mmol/L (22-29) 02/12/25 06:18 Anion Gap 23.6 (5-19) H 02/12/25 06:18 BUN 50 mg/dL (6-20) H 02/12/25 06:18 Creatinine 9.8 mg/dL (0.7-1.2) H* 02/12/25 06:18 GFR Calculation 6.6 mL/min (90-130) L 02/12/25 06:18 Glucose 74 mg/dL (65-115) 02/12/25 06:18 Calculated Osmolality 298 mOsm/kg (285-295) H 02/12/25 06:18 Calcium 9.0 mg/dL (8.5-10.5) 02/12/25 06:18 Total Bilirubin 0.4 mg/dL (0.15-1.2) 02/12/25 06:18 AST 10 U/L (0-40) 02/12/25 06:18 ALT 8 U/L (0-41) 02/12/25 06:18 Alkaline Phosphatase 72 U/L (40-130) 02/12/25 06:18 Total Protein 6.1 g/dL (6.6-8.7) L 02/12/25 06:18 Albumin 4.0 g/dL (3.5-5.2) 02/12/25 06:18 Globulin 2.1 g/dL (1.3-4.6) 02/12/25 06:18 All radiology interpretation(s) finalized by discharge EKG Data EKG 1: I personally reviewed and interpreted this EKG as follows: EKG interpretation date: 02/12/25 EKG interpretation time: 06:56 Interpretation: nsr hr [address] elevation qrs 89 qtc 430 Critical Care Time Critical Care Time: Critical Care Time: Yes Total Critical Care Time: 40 Attestation: The high probability of a clinically significant, sudden or life threatening deterioration of the patient's renal system(s) required my full and direct attention, intervention and personal management. The critical care time is as shown. This time is in addition to time spent performing any reported procedures but includes the following: [x] Data and vital sign review and interpretation [x] Patient assessment, examination and intervention [x] Documentation [x] Medication orders and management Discharge Plan Discharge Patient Disposition: Admitted As Inpatient Clinical Impression: ESRD on dialysis, Acute hyperkalemia, Pneumonia, Acute respiratory failure with hypoxia Condition: Stable Prescriptions: No Action trazodone 100 mg tablet 100 mg PO BEDTIME B-complex with vitamin C Tablet 1 tab PO DAILY 30 Days Qty: 30 1RF sevelamer carbonate 800 mg Tablet 2,400 mg PO TIDWM 30 Days Qty: 270 1RF divalproex 500 mg tablet,delayed release (DR/EC) 500 mg PO BID 30 Days Qty: 60 1RF levetiracetam 500 mg tablet See Rx Instructions .ROUTE .COMPLEX Rx Instructions: 500 mg orally hydrocodone-acetaminophen 5-325 mg tablet 1 tab PO QID PRN (Reason: Pain) losartan 25 mg tablet 25 mg PO DAILY hydralazine 50 mg tablet See Rx Instructions .ROUTE .COMPLEX Rx Instructions: Take 1 Tablet (50 mg) by mouth every 8 hours. Take an additional dose every 6 hours prn if SBP > 160, DBP >100. venlafaxine 37.5 mg capsule,extended release 24hr 37.5 mg PO DAILY sumatriptan succinate 25 mg tablet See Rx Instructions .ROUTE .COMPLEX Rx Instructions: TAKE 1 TO 2 TABS BY MOUTH EVERY 2 HOURS NEEDED FOR PAIN FOR MIGRAINE HEADACHE-DO NOT EXCEED 4 TABS IN 24 HOURS. labetalol 100 mg tablet 200 mg PO BID RenaPlex-D 800 mcg-12.5 mg -2,000 unit tablet 1 tab PO DAILY amlodipine 10 mg tablet 10 mg PO DAILY clonazepam [Klonopin] 1 mg tablet 1 mg PO BID PRN (Reason: anxiety) Qty: 10 0RF Referrals: Renetta Cole NP [Primary Care Provider] - Print Language: Zimbabwean Coding Level of Care Code ED Weed Thinner for Loida Menon
[2025-02-12 06:38] LABS: Alanine Aminotransferase 8 U/L (0-41); Alkaline Phosphatase 72 U/L (40-130); Anion Gap 23.6 (5-19); Aspartate Amino Transferase 10 U/L (0-40); Blood Urea Nitrogen 50 mg/dL (6-20); Carbon Dioxide 23 mmol/L (22-29); Chloride 98 mmol/L (98-107); Creatinine Clr Calc Pharmacy 9.0365; Globulin 2.1 g/dL (1.3-4.6); Glomerular Filtration Rate 6.6 mL/min (90-130); Glucose 74 mg/dL (65-115); Osmolality Calculated 298 mOsm/kg (285-295); Sodium 138 mmol/L (136-145); Total Bilirubin 0.4 mg/dL (0.15-1.2); Total Protein 6.1 g/dL (6.6-8.7)
[2025-02-12] MEDS: metoclopramide 5 mg/mL SDV 2 mL 10 MG IVP (06:38)
[2025-02-12 06:42] LABS: Potassium 6.6 mmol/L (3.5-5.1)
[2025-02-12] MEDS: diphenhydrAMINE 50 mg/mL SDV 1mL IVP (06:44)
[2025-02-12] MEDS: cefTRIAXone 1,000 mg SDV 1000 MG IVP (06:50)
[2025-02-12 06:53] LABS: ABG PCO2 39.7 mmHg (35-45); ABG PH Result 7.45 (7.35-7.45); Arterial Blood Gas Hematocrit 27.9 % (42-52); Base Excess ABG 3.3 mmol/L (-2.0-2.0); Blood Gas Allen Test Pos; Blood Gas Sample Site Radial, left; Blood Gas Sample Type Arterial; Carboxyhemoglobin 2.8 %THgb (0.4-20.1); HCO3 ABG 27.6 mmol/L (22-26); HGB O2 Sat 85.9 % (95-100); Ionized Calcium Level - ABG 1.1 mmol/L (1.1-1.4); Methemoglobin 1.2 % (0.4-1.5); Oxygen Device OXY MASK; Oxygen Saturation ABG 89.5; PO2 ABG 55.6 mmHg (80.0-100.0); Potassium Level - ABG 6.1 mmol/L (3.5-5.0); Total Hemoglobin 9.1 g/dL (14-18)
--- NOTE | 2025-02-12 06:56 | ECG_ITS ---
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
[2025-02-12] MEDS: dextrose 10% 250 ML 1000 ML IV ×4 (07:11→11:22)
[2025-02-12 07:15] LABS: NT Pro B Type Natriuretic Pept 46526 pg/mL (0-125)
[2025-02-12 07:18] LABS: Glucose Point of Care 114 mg/dL (70-110)
[2025-02-12 07:18] LABS: Glucose Point of Care 140 mg/dL (70-110)
[2025-02-12] MEDS: calcium gluconate 0.1 gm/mL 10% SDV 10mL 1 GM IVP (07:35)
[2025-02-12] MEDS: insulin regular-human 100 units/1 mL 10 UNIT IVP (07:40)
[2025-02-12] MEDS: AZITHROMYCIN ADD-Vantage 500 MG in 0.9% NaCl ADD-Vantage 250 ML 250 MG IV (07:42)
[2025-02-12 07:45] LABS: Glucose Point of Care 307 mg/dL (70-110)
--- NOTE | 2025-02-12 07:54 | PM.CONSULT ---
Providers/Reason For Consult Consulting Physician/Specialty*: kommana/Nephrology Reason for Consult*: ESRD Primary Care Provider: Reentta Cole NP History of Present Illness History of Present Illness Vance Sainz is a 24 year old male patient is a 24-year-old male with past medical history of end-stage renal disease on dialysis, history of failed renal transplant, on Thursday schedule for dialysis presented to the emergency department due to shortness of breath. He was noted to be hypoglycemic, currently admitted to ICU. Lab data significant for hypokalemia with a potassium of 6.6 in the ED. Review of Systems Narrative: NEGATIVE Medications/Allergies Home Medications ?Medication ?Instructions ?Recorded ?Confirmed ?Last Taken ?Type B-complex with vitamin C 1 tab PO DAILY 30 days #30 tabs 08/04/24 02/12/25 09/10/24 Rx divalproex 500 mg tablet,delayed 500 mg PO BID 30 days #60 tabs 08/04/24 02/12/25 09/10/24 Rx release amlodipine 10 mg tablet 10 mg PO DAILY 09/11/24 02/12/25 09/10/24 History labetalol 100 mg tablet 200 mg PO BID 09/11/24 02/12/25 09/10/24 History venlafaxine 37.5 mg 37.5 mg PO DAILY 09/11/24 02/12/25 Unknown History capsule,extended release 24 hr vit B,C-folic ac 800 mcg-zinc 12.5 1 tab PO DAILY 09/11/24 02/12/25 09/10/24 History mg-selen-D3 2,000 unit-vit E tablet (RenaPlex-D) clonazepam 1 mg tablet (Klonopin) 1 mg PO BID PRN anxiety #10 tabs 01/09/25 02/12/25 Unknown Rx hydralazine 50 mg tablet See Rx Instructions .Route .COMPLEX 02/08/25 02/12/25 Unknown History hydrocodone 5 mg-acetaminophen 325 1 tab PO QID PRN Pain 02/08/25 02/12/25 Unknown History mg tablet losartan 25 mg tablet 25 mg PO DAILY 02/08/25 02/12/25 Unknown History levetiracetam 500 mg tablet See Rx Instructions .Route .COMPLEX 02/12/25 02/12/25 Unknown History sevelamer carbonate 800 mg tablet See Rx Instructions .Route .COMPLEX 02/12/25 02/12/25 Unknown History trazodone 50 mg tablet 50 mg PO BEDTIME 02/12/25 02/12/25 Unknown History Allergies Allergy/AdvReac Type Severity Reaction Status Date / Time NSAIDS (Non-Steroidal Allergy Severe unable to Verified 12/19/24 23:47 Anti-Inflamma take due to kidney disease grapefruit Allergy Unknown Verified 12/19/24 23:47 sertraline (From Zoloft) Allergy Unknown Verified 12/19/24 23:47 PFSH Acute PFSH: Medical History (Updated 02/12/25 @ 15:52 by Raquel Berry MD) Hypoglycemia CKD (chronic kidney disease) stage V requiring chronic dialysis Generalized anxiety disorder Other stimulant dependence, in remission Problems related to lack of adequate sleep Substance abuse Depression Anxiety Social History Smoking and tobacco/nicotine status: never used tobacco/nicotine Quit status (tobacco/nicotine): has tried quititng Number of times tried to quit tobacco: 4 Second hand smoke exposure: No Vitals/I&O/Wt Last Vital Signs Temp 98 F 02/12/25 06:06 Pulse 88 02/12/25 07:10 Resp 33 H 02/12/25 07:10 BP 165/90 02/12/25 07:10 Pulse Ox 88 L 02/12/25 07:10 O2 Del Method Oxymask 02/12/25 07:10 O2 Flow Rate 6 02/12/25 07:10 02/11/25 02/12/25 02/12/25 22:59 06:59 14:59 Intake Total 0 / 0 500 / 500 Balance 0 / 0 500 / 500 Weight last 48 hrs Weight 58.967 kg Physical Exam Narrative: somnolent , NO DISTRESS PEERLA S1S2 RRR per report Lungs + crackles per report Abd soft , non tender per report No edema Data 02/12/25 06:18 02/12/25 06:18 Micro: Microbiology 02/12/25 06:35 Blood Culture - Preliminary Blood SPECIMEN COLLECTED 02/12/25 06:35 Blood Culture - Preliminary Blood SPECIMEN COLLECTED A&P Assessment and plan (1) ESRD on dialysis: 24-year-old gentleman history of ESRD failed renal transplant. History of anxiety history of drug use in the past. pt presented with SOB . 1. ESRD - thu, missed HD , hd today 3. HTN , BP elevated , resume home meds 4. Anemia , RUBA with HD 5. Renal bone mineral metabolism , continue Renvela . 6. Failed renal transplant 7. Hypoglycemia , 8. Hyperkalemia , HD a above and low K diet seen and examined w/ RN- telehealth visit using A/V equipement- RN examined pt. Plan see above PDMP PDMP Reviewed: Not Reviewed Consult Attestations Medical Necessity Statement: PER STEPHANIE Coding Level of Care Code Acute Code for Chg Fwd Diagnoses ESRD on dialysis N18.6; Z99.2
[2025-02-12] MEDS: LORazepam 2 mg/mL INJ 1 mL 0.5 MG IVP (08:11)
[2025-02-12 08:23] LABS: Hepatitis B Surface AB 25.9 (11.5-1000); Hepatitis B Surface Antigen Non-Reactive (Nonreactive)
--- NOTE | 2025-02-12 08:45 | PC.NURSE ---
VERBAL ORDER FROM PÉREZ TO GIVE D50 SYRINGE 25MG.
[2025-02-12] MEDS: dextrose 50% syringe 50 mL IVP (08:48)
--- NOTE | 2025-02-12 09:13 | PC.NURSE ---
pt was wanting to leave AMA, stating he cant wear the oxygen mask when he is having a panic attack. this rn educated the pt on his condition and the importance of staying for dialysis. pt was getting agitated and stated he wanted to leave, provider notified. when this RN returned to the room pt was diaphoretic and restless. RN checked pts FSBG and it was 26, gave pt orange juice and provider gave verbal order to EUGENIA Sandra for medication. FSBG recheck was in the 170s.
[2025-02-12 10:08] LABS: Adenovirus Not Detected (NOT DETECT); Chlamydia Pneumoniae Not Detected (NOT DETECT); Coronavirus 229E,HKU1,NL63,OC4 Not Detected (NOT DETECT); Human Metapneumovirus Not Detected (NOT DETECT); Human Rhinovirus/Enterovirus Not Detected (NOT DETECT); Influenza A Not Detected (NOT DETECT); Influenza A H1 Not Detected (NOT DETECT); Influenza A H1-2009 Not Detected (NOT DETECT); Influenza A H3 Not Detected (NOT DETECT); Influenza B Not Detected (NOT DETECT); Mycoplasma Pneumoniae Not Detected (NOT DETECT); Parainfluenza Virus Type 1 Not Detected (NOT DETECT); Parainfluenza Virus Type 2 Not Detected (NOT DETECT); Parainfluenza Virus Type 3 Not Detected (NOT DETECT); Parainfluenza Virus Type 4 Not Detected (NOT DETECT); Respiratory Syncytial Virus A Not Detected (NOT DETECT); Respiratory Syncytial Virus B Not Detected (NOT DETECT); SARS-COV-2 Not Detected (NOT DETECT)
--- NOTE | 2025-02-12 10:16 | PC.NURSE ---
FSBG recheck- 47, provider notified. D10 infusing FSBG is 170s.
[2025-02-12 10:36] LABS: Glucose Point of Care 47 mg/dL (70-110)
[2025-02-12 10:36] LABS: Glucose Point of Care 174 mg/dL (70-110)
[2025-02-12 10:36] LABS: Glucose Point of Care 172 mg/dL (70-110)
[2025-02-12 10:36] LABS: Glucose Point of Care 162 mg/dL (70-110)
[2025-02-12 10:36] LABS: Glucose Point of Care 26 mg/dL (70-110)
--- NOTE | 2025-02-12 11:00 | PC.NURSE ---
admit from er somewhat lethargic, has had ativan in er for panic attack noted blood sugar lower given iv bolus of d10 and repeat of one , dialysis started at this time o2 at 6l nc in use,
--- NOTE | 2025-02-12 11:15 | PM.HP ---
Providers/Chief Complaint Admitting Physician: Raquel Berry MD Primary Care Provider: Renetta Cole NP Chief Complaint: headache History of Present Illness Vance Sainz is a 24 year old male history of end-stage renal disease, on dialysis, history of renal transplant results from 2010, complicated by graft failure, currently on transplant rejection medications, dialysis schedule Thursday, non compliant with HD who presents to [facility] for Severe dry cough and shortness of breath. Denies any complaint of chest pain, dizziness, palpitations, nausea/vomiting/diarrhea or urinary complaints. He is a very poor historian. Had continuous dry cough and unable to answer questions appropriately. He further states that he missed dialysis on Thursday. He has been admitted to [facility] in the past for depression and suicidal thoughts. He received regular insulin 10 units and calcium gluconate for hyperkalemia of 6.6 in ED. His blood sugar was found to be 27 improved with orange juice. Blood sugar currently 162 in ICU. In the ER was found to have hemoglobin of 9.2, platelets 123, potassium 6.6, creatinine 9.8, hypoxic with saturation of 85% on room air, BNP 46 526. Review of Systems General: Reports: 10 or more systems reviewed and unremarkable except in HPI and below Medications/Allergies Home Medications ?Medication ?Instructions ?Recorded ?Confirmed ?Last Taken ?Type B-complex with vitamin C 1 tab PO DAILY 30 days #30 tabs 08/04/24 02/12/25 09/10/24 Rx divalproex 500 mg tablet,delayed 500 mg PO BID 30 days #60 tabs 08/04/24 02/12/25 09/10/24 Rx release amlodipine 10 mg tablet 10 mg PO DAILY 09/11/24 02/12/25 09/10/24 History labetalol 100 mg tablet 200 mg PO BID 09/11/24 02/12/25 09/10/24 History venlafaxine 37.5 mg 37.5 mg PO DAILY 09/11/24 02/12/25 Unknown History capsule,extended release 24 hr vit B,C-folic ac 800 mcg-zinc 12.5 1 tab PO DAILY 09/11/24 02/12/25 09/10/24 History mg-selen-D3 2,000 unit-vit E tablet (RenaPlex-D) clonazepam 1 mg tablet (Klonopin) 1 mg PO BID PRN anxiety #10 tabs 01/09/25 02/12/25 Unknown Rx hydralazine 50 mg tablet See Rx Instructions .Route .COMPLEX 02/08/25 02/12/25 Unknown History hydrocodone 5 mg-acetaminophen 325 1 tab PO QID PRN Pain 02/08/25 02/12/25 Unknown History mg tablet losartan 25 mg tablet 25 mg PO DAILY 02/08/25 02/12/25 Unknown History levetiracetam 500 mg tablet See Rx Instructions .Route .COMPLEX 02/12/25 02/12/25 Unknown History sevelamer carbonate 800 mg tablet See Rx Instructions .Route .COMPLEX 02/12/25 02/12/25 Unknown History trazodone 50 mg tablet 50 mg PO BEDTIME 02/12/25 02/12/25 Unknown History Allergies Allergy/AdvReac Type Severity Reaction Status Date / Time NSAIDS (Non-Steroidal Allergy Severe unable to Verified 12/19/24 23:47 Anti-Inflamma take due to kidney disease grapefruit Allergy Unknown Verified 12/19/24 23:47 sertraline (From Zoloft) Allergy Unknown Verified 12/19/24 23:47 PFSH Acute PFSH: Medical History (Updated 02/12/25 @ 15:52 by Raquel Berry MD) Hypoglycemia CKD (chronic kidney disease) stage V requiring chronic dialysis Generalized anxiety disorder Other stimulant dependence, in remission Problems related to lack of adequate sleep Substance abuse Depression Anxiety Social History Smoking and tobacco/nicotine status: never used tobacco/nicotine Quit status (tobacco/nicotine): has tried quititng Number of times tried to quit tobacco: 4 Second hand smoke exposure: No Vitals/I&O/Wt Last Vital Signs Temp 98 F 02/12/25 06:06 Pulse 81 02/12/25 10:45 Resp 20 H 02/12/25 10:45 BP 128/81 02/12/25 10:35 Pulse Ox 95 02/12/25 10:45 O2 Del Method Nasal Cannula 02/12/25 10:45 O2 Flow Rate 8 02/12/25 10:45 02/11/25 02/12/25 02/12/25 22:59 06:59 14:59 Intake Total 0 / 0 500 / 500 Balance 0 / 0 500 / 500 Weight last 48 hrs Weight 62 kg Weight 58.967 kg Physical Exam Narrative: He is alert, awake and oriented x3 chest- b/l coarse crackles present CVS normal heart sounds Abdomen-soft, NT ND normal bowel sounds Ext- no edema Data 02/12/25 06:18 02/12/25 06:18 Micro: Microbiology 02/12/25 06:35 Blood Culture - Preliminary Blood SPECIMEN COLLECTED 02/12/25 06:35 Blood Culture - Preliminary Blood SPECIMEN COLLECTED A&P Assessment and plan (1) Acute respiratory failure with hypoxia: (2) Pneumonia: (3) Acute hyperkalemia: (4) Major depressive disorder, recurrent: (5) ESRD on dialysis: (6) Generalized anxiety disorder: (7) Hypertension: (8) Renal transplant failure and rejection: (9) Hypoglycemia: Plan Vance Sainz is a 24 year old male history of end-stage renal disease, on dialysis, history of renal transplant results from 2010, complicated by graft failure, currently on transplant rejection medications, dialysis schedule Thursday, non compliant with HD who presents to [facility] for Severe dry cough and shortness of breath, missed HD on thursday. He received regular insulin 10 units and calcium gluconate for hyperkalemia of 6.6 in ED. His blood sugar was found to be 27 improved with orange juice. Blood sugar currently 162 in ICU. In the ER was found to have hemoglobin of 9.2, platelets 123, potassium 6.6, creatinine 9.8, hypoxic with saturation of 85% on room air, BNP 46 526. Chest x-ray showed IMPRESSION: Moderately extensive right lower lobe infiltrate. CT head negative for acute finding #Acute hypoxic respiratory failure-likely secondary to fluid overload and RLL pneumonia Missed hemodialysis on Thursday and had partial dialysis on thursday due to headache. BNP 46 526, creatinine 9.8 Nephrology consulted, patient to received HD today. Will follow-up nephrology for further recommendations #Right lower lobe pneumonia- Chest x-ray consistent with moderately extensive right lower lobe infiltrate Received IV ceftriaxone and azithromycin in ED Continue supplemental oxygen to keep saturation more than 90% Monitor in ICU #Hyperkalemia-potassium 6.6, likely secondary to missed dialysis Received regular insulin 10 units, calcium gluconate in ED Blood sugar was 27, improved to 162 after D10 and orange juice in ICU Will monitor for now #Persistent hypoglycemia- requiring multiple D10's Likely secondary to poor po intake Cannot rule out substance abuse. Will do D10 drip at 40 cc/hr for now. If persists, will need further workup for hypoglycemia Migraine headaches-Was recently admitted to [facility] for migraine BHANDARI last week. Will do po norco 5/325mg q6h prn for pain Home medication needs to be reconciled. Will try to obtain more history from the patient after dialysis. GI prophylaxis with IV Protonix daily DVT prophylaxis with subcutaneous Lovenox CODE STATUS discussed with patient, he is full code. Family counseled and educated about plan of care. PDMP PDMP Reviewed: Not Reviewed Attestations Medical Necessity Statement*: He needs continued hospitalization crossing 2 midnights for management of acute hypoxic respiratory failure, fluid overload, right lower lobe pneumonia with IV antibiotics, hemodialysis and ICU monitoring Time Spent in Patient Care: 45 minutes Coding Level of Care Code Acute Code for [facility] Fwd Diagnoses Acute respiratory failure with hypoxia J96.01 Pneumonia J18.9 Acute hyperkalemia E87.5 Major depressive disorder, recurrent F33.9 ESRD on dialysis N18.6; Z99.2 Generalized anxiety disorder F41.1 Hypertension I10 Renal transplant failure and rejection T86.12; T86.11 Hypoglycemia E16.2 Time Spent (min) 45
[2025-02-12 11:23] LABS: Glucose Point of Care 59 mg/dL (70-110)
[2025-02-12] MEDS: heparin, porcine 1,000 unit/mL INJ 10 mL 1000 UNIT IV (11:25)
[2025-02-12 11:49] LABS: Glucose Point of Care 121 mg/dL (70-110)
[2025-02-12] MEDS: pantoprazole 40 mg SDV IVP (11:51)
[2025-02-12] MEDS: enoxaparin 40 mg/0.4 mL Syringe SUBCUT (11:52)
[2025-02-12 12:11] LABS: Glucose Point of Care 80 mg/dL (70-110)
[2025-02-12] MEDS: dextrose 10% 125 ML 750 ML IV (13:03)
[2025-02-12 13:04] LABS: Glucose Point of Care 86 mg/dL (70-110)
[2025-02-12 14:52] LABS: Glucose Point of Care 96 mg/dL (70-110)
--- NOTE | 2025-02-12 15:56 | PC.NURSE ---
girlfriend here awaken pt while awake started requesting pain medication for headache and neck pain
[2025-02-12] MEDS: dextrose 10% 1,000 ML 40 ML IV (15:59)
[2025-02-12 17:36] LABS: Glucose Point of Care 87 mg/dL (70-110)
[2025-02-12 17:37] LABS: Glucose Point of Care 113 mg/dL (70-110)
[2025-02-12 17:37] LABS: Glucose Point of Care 91 mg/dL (70-110)
--- NOTE | 2025-02-12 18:27 | PC.NURSE ---
Verbal order for morphine and hydrazine from Dr. Berry.
[2025-02-12] MEDS: morphine 4 mg/mL SDV 1 mL 2 MG IVP (18:42)
[2025-02-12] MEDS: hyDRALAzine 25 mg Tablet PO (18:49)
[2025-02-12 18:55] LABS: Glucose Point of Care 92 mg/dL (70-110)
[2025-02-12 19:28] LABS: Glucose Point of Care 94 mg/dL (70-110)
[2025-02-12 20:26] LABS: Glucose Point of Care 100 mg/dL (70-110)
[2025-02-12] MEDS: sevelamer 800 mg Tablet PO (20:28)
[2025-02-12] MEDS: levETIRAcetam 500 mg Tablet PO (20:28)
[2025-02-12 21:28] LABS: Glucose Point of Care 101 mg/dL (70-110)
[2025-02-12 22:44] LABS: Glucose Point of Care 91 mg/dL (70-110)
[2025-02-12 23:36] LABS: Glucose Point of Care 83 mg/dL (70-110)
[2025-02-12] MEDS: HYDROcodone-acetaminophen 5-325 mg Tablet 1 TAB PO (23:38)
[2025-02-13] VITALS (71 sets, daily range): BP systolic 129–184; BP diastolic 79–124; PULSE 71–107; RESP 13–28; TEMP 36.2–37.3; O2SAT 90–100
[2025-02-13 00:31] LABS: Glucose Point of Care 115 mg/dL (70-110)
[2025-02-13 01:59] LABS: Glucose Point of Care 105 mg/dL (70-110)
[2025-02-13 02:30] LABS: Glucose Point of Care 89 mg/dL (70-110)
[2025-02-13 03:32] LABS: Glucose Point of Care 118 mg/dL (70-110)
--- NOTE | 2025-02-13 04:10 | PC.NURSE ---
Refusal Patient refused morning labs when phlebotomy rounded. Patient requested that lab come back at 0600 stating, The hospital isn't the place to rest. Dr Mayen aware. Lab agreed to come back and draw at 0600.
[2025-02-13 04:41] LABS: Glucose Point of Care 128 mg/dL (70-110)
[2025-02-13 05:41] LABS: Glucose Point of Care 82 mg/dL (70-110)
[2025-02-13 06:26] LABS: Glucose Point of Care 90 mg/dL (70-110)
[2025-02-13 06:44] LABS: Basophils % 0.9 %; Eosinophils # 0.2 10^3/uL (0.0-0.8); Eosinophils % 4.3 %; Hematocrit 28.1 % (37-53); Lymphocytes # 0.8 10^3/uL (0.8-4.8); Lymphocytes % 17.7 %; Mean Corpuscular HGB Conc 31.7 g/dL (30-55); Mean Corpuscular Hemoglobin 30.5 pg (27-33); Mean Corpuscular Volume 96.2 fl (82-101); Mean Platelet Volume 10.5 fL (7.4-10.4); Monocytes # 0.8 10^3/uL (0.2-0.9); Monocytes % 16.2 %; Neutrophils # 2.81 10^3/uL (1.8-7.7); Neutrophils % 60.5 %; Nucleated Red Blood Cells % 0 %; Platelet Count 137 10^3/cmm (157-399); Red Blood Count 2.92 10^6/uL (3.85-5.65); Red Cell Distribution Width 15.1 % (12.1-15.1); White Blood Count 4.64 10^3/uL (3.29-11.43)
[2025-02-13 07:00] LABS: Alanine Aminotransferase < 5 U/L (0-41); Albumin Level 3.3 g/dL (3.5-5.2); Alkaline Phosphatase 68 U/L (40-130); Anion Gap 15.9 (5-19); Aspartate Amino Transferase 7 U/L (0-40); Blood Urea Nitrogen 25 mg/dL (6-20); Calcium 8.3 mg/dL (8.5-10.5); Carbon Dioxide 29 mmol/L (22-29); Chloride 97 mmol/L (98-107); Creatinine Clr Calc Pharmacy 13.2176; Globulin 1.8 g/dL (1.3-4.6); Glomerular Filtration Rate 10.2 mL/min (90-130); Glucose 83 mg/dL (65-115); Osmolality Calculated 288 mOsm/kg (285-295); Potassium 4.9 mmol/L (3.5-5.1); Sodium 137 mmol/L (136-145); Total Bilirubin 0.3 mg/dL (0.15-1.2); Total Protein 5.1 g/dL (6.6-8.7)
[2025-02-13 07:25] LABS: Glucose Point of Care 117 mg/dL (70-110)
[2025-02-13 07:31] LABS: NT Pro B Type Natriuretic Pept 33381 pg/mL (0-125)
[2025-02-13] MEDS: levETIRAcetam 500 mg Tablet PO ×2 (08:29→17:35)
[2025-02-13] MEDS: sevelamer 800 mg Tablet PO ×3 (08:29→17:35)
[2025-02-13] MEDS: divalproex DR 500 mg Tablet PO ×2 (08:29→17:35)
[2025-02-13] MEDS: HYDROcodone-acetaminophen 5-325 mg Tablet 1 TAB PO ×3 (08:34→20:58)
[2025-02-13] MEDS: hyDRALAzine 25 mg Tablet PO (09:44)
[2025-02-13] MEDS: TRAMadol 50 mg Tablet PO ×3 (10:08→22:58)
[2025-02-13] MEDS: losartan 50 mg Tablet PO (10:09)
--- NOTE | 2025-02-13 10:11 | PC.NURSE ---
Patient is complaining of a headache. NUrse administered hydrocodone and later a dose of hydralazine for hypertension. Patient continues to be in pain and told nurse that if he doesn't get pain relief, he will leave ama, go home and smoke pot for pain relief, and go to his already scheduled outpatient dialysis appointment instead of staying for in hospital dialysis. Nurse alerted Dr mukherjee to continued pain and hypertension. REceived orders for tramadol and losartan. When giving tramadol and losartan, patient again stated his desire to leave AMA if the tramadol does not work. Nurse explained to him that he has the right to leave ama and we cannot hold him against his will, and explained the reasoning for his hospitalization and risks of leaving, missing dialysis again, and needing to be readmitted.
[2025-02-13 10:45] LABS: Glucose Point of Care 125 mg/dL (70-110)
[2025-02-13 10:56] LABS: Glucose Point of Care 83 mg/dL (70-110)
--- NOTE | 2025-02-13 10:58 | P.PN_ITS ---
Subjective 2 Subjective: feels better today Medications: Reviewed: Yes Vitals/I&O/Wt Last Vital Signs Temp 97.5 F L 02/13/25 07:31 Pulse 80 02/13/25 10:30 Resp 22 H 02/13/25 04:00 BP 174/123 02/13/25 10:09 Pulse Ox 98 02/13/25 10:30 O2 Del Method Room Air 02/13/25 10:30 O2 Flow Rate 4 02/12/25 14:14 02/12/25 02/13/25 02/13/25 22:59 06:59 14:59 Intake Total 720.667 / 2095.667 600 / 2695.667 Output Total 3500 / 3500 0 / 3500 Balance -2779.333 / -1404.333 600 / -804.333 Weight last 48 hrs Weight 58.967 kg Weight 59 kg Weight 62 kg Weight 58.967 kg Physical Exam 2 Narrative: awake , alert , NO DISTRESS PEERLA S1S2 RRR per report Lungs + crackles per report Abd soft , non tender per report No edema Data 02/13/25 06:27 02/13/25 06:27 Micro: Microbiology 02/12/25 06:35 Blood Culture - Preliminary Blood NEGATIVE TO DATE 02/12/25 06:35 Blood Culture - Preliminary Blood NEGATIVE TO DATE A&P Assessment and plan (1) ESRD on dialysis: 24-year-old gentleman history of ESRD failed renal transplant. History of anxiety history of drug use in the past. pt presented with SOB . 1. ESRD - thu, s/p HD yesterday and due to HD today --> can DC to his out pt HD center if pt medically stable otherwise 3. HTN , BP elevated , resumed home meds 4. Anemia , s/p RUBA with HD 5. Renal bone mineral metabolism , continue Renvela . 6. Failed renal transplant 7. Hypoglycemia , 8. Hyperkalemia , s/p HD a above and low K diet seen and examined w/ RN- telehealth visit using A/V equipement- RN examined pt. Plan see above PDMP PDMP Reviewed: Not Reviewed Attestations 2 Medical Necessity Statement*: per valentinatn Coding Level of Care Code Acute Code for Chg Fwd Diagnoses ESRD on dialysis N18.6; Z99.2
[2025-02-13] MEDS: amlodipine 10 mg Tablet PO (11:20)
[2025-02-13] MEDS: labetalol 200 mg Tablet PO ×2 (11:20→17:35)
[2025-02-13] MEDS: hyDRALAzine 50 mg Tablet PO ×2 (11:20→19:35)
[2025-02-13] MEDS: pantoprazole 40 mg SDV IVP (11:22)
[2025-02-13 11:45] LABS: Cortisol Random 2.41 ug/dL (2.47-19.5)
[2025-02-13 11:54] LABS: Procalcitonin 0.64 ng/mL (0-0.5); Thyroid Stimulating Hormone 0.99 uIU/mL (0.27-4.20); Vitamin B12 440 pg/mL (232-1245)
[2025-02-13 12:05] LABS: Iron 109 ug/dL (59-158); Percent Saturation 68.1 % (20-50); Total Iron Binding Capacity 160 mcg/dl; Unsaturated Iron Binding 51 ug/dL (112-347)
[2025-02-13 12:25] LABS: Glucose Point of Care 110 mg/dL (70-110)
[2025-02-13] MEDS: hyDRALAzine 20 mg/mL INJ 1 mL 10 MG IVP (12:50)
[2025-02-13] MEDS: cosyntropin 0.25 mg SDV IVP (13:21)
[2025-02-13 13:53] LABS: Cosyntropin Baseline 2.88 mcg/dL
[2025-02-13 14:15] LABS: Estmated Average Glucose 88; Hemoglobin A1C 4.7 % (4.0-6.0)
[2025-02-13] MEDS: CLONazepam 1 mg Tablet PO (14:15)
[2025-02-13] MEDS: diphenhydrAMINE 25 mg Capsule PO ×2 (14:15→15:52)
[2025-02-13 14:23] LABS: Cosyntropin 30 Minute 12.84 mcg/dL
[2025-02-13 14:39] LABS: Glucose Point of Care 85 mg/dL (70-110)
[2025-02-13] MEDS: ondansetron 2 mg/ML SDV 2 mL 4 MG IVP (14:42)
[2025-02-13 15:05] LABS: Cosyntropin 1 Hour 16.62 mcg/dL
[2025-02-13 16:43] LABS: Glucose Point of Care 92 mg/dL (70-110)
--- NOTE | 2025-02-13 17:27 | P.PN_ITS ---
Subjective 2 Subjective: no new complaints Medications: Reviewed: Yes Vitals/I&O/Wt Last Vital Signs Temp 97.1 F L 02/13/25 12:00 Pulse 88 02/13/25 16:00 Resp 20 H 02/13/25 16:00 BP 134/93 02/13/25 16:00 Pulse Ox 100 02/13/25 16:00 O2 Del Method Room Air 02/13/25 16:00 O2 Flow Rate 4 02/12/25 14:14 02/13/25 02/13/25 02/13/25 06:59 14:59 22:59 Intake Total 600 / 2695.667 781.333 / 781.333 Output Total 0 / 3500 Balance 600 / -804.333 781.333 / 781.333 Weight last 48 hrs Weight 58.967 kg Weight 59 kg Weight 62 kg Weight 58.967 kg Physical Exam 2 Narrative: awake , alert , NO DISTRESS PEERLA S1S2 RRR per report Lungs + crackles per report Abd soft , non tender per report No edema Data 02/13/25 06:27 02/13/25 06:27 Micro: Microbiology 02/12/25 06:35 Blood Culture - Preliminary Blood NEGATIVE TO DATE 02/12/25 06:35 Blood Culture - Preliminary Blood NEGATIVE TO DATE A&P Assessment and plan (1) ESRD on dialysis: 24-year-old gentleman history of ESRD failed renal transplant. History of anxiety history of drug use in the past. pt presented with SOB . 1. ESRD - thu, s/p HD yesterday and due to HD today --> can DC to his out pt HD center if pt medically stable otherwise 3. HTN , BP elevated , resumed home meds 4. Anemia , s/p RUBA with HD 5. Renal bone mineral metabolism , continue Renvela . 6. Failed renal transplant 7. Hypoglycemia , 8. Hyperkalemia , s/p HD a above and low K diet seen and examined w/ RN- telehealth visit using A/V equipement- RN examined pt. Plan see above PDMP PDMP Reviewed: Not Reviewed Coding Level of Care Code Acute Code for Chg Fwd Diagnoses ESRD on dialysis N18.6; Z99.2
[2025-02-13] MEDS: heparin, porcine 1,000 unit/mL INJ 10 mL 1000 UNIT IV (17:41)
[2025-02-13 17:59] LABS: Glucose Point of Care 141 mg/dL (70-110)
--- NOTE | 2025-02-13 19:21 | PC.NURSE ---
SHift SUmmary: Received dialysis in the afternoon. 1L of fluid removed. Blood pressure was high in the morning, but started to stay in the 140's systolic after home blood pressure medications were started. Frequent complaints of pain (headache), hydrocodone and tramadol given for pain.
[2025-02-13 20:58] LABS: Glucose Point of Care 83 mg/dL (70-110)
[2025-02-13 22:56] LABS: Glucose Point of Care 75 mg/dL (70-110)
[2025-02-13 23:44] LABS: Glucose Point of Care 102 mg/dL (70-110)
[2025-02-14] VITALS (21 sets, daily range): BP systolic 132–157; BP diastolic 79–106; PULSE 68–98; RESP 16–28; TEMP 36.6–36.7; O2SAT 93–100
[2025-02-14 03:40] LABS: Glucose Point of Care 157 mg/dL (70-110)
[2025-02-14] MEDS: hyDRALAzine 50 mg Tablet PO (03:40)
[2025-02-14 03:52] LABS: Basophils % 0.7 %; Eosinophils # 0.2 10^3/uL (0.0-0.8); Eosinophils % 5.1 %; Hematocrit 28.3 % (37-53); Lymphocytes # 0.7 10^3/uL (0.8-4.8); Lymphocytes % 17.6 %; Mean Corpuscular HGB Conc 31.8 g/dL (30-55); Mean Corpuscular Hemoglobin 31.1 pg (27-33); Mean Corpuscular Volume 97.9 fl (82-101); Mean Platelet Volume 10.3 fL (7.4-10.4); Monocytes # 0.5 10^3/uL (0.2-0.9); Monocytes % 11.4 %; Neutrophils # 2.68 10^3/uL (1.8-7.7); Neutrophils % 64.7 %; Nucleated Red Blood Cells % 0 %; Platelet Count 152 10^3/cmm (157-399); Red Blood Count 2.89 10^6/uL (3.85-5.65); Red Cell Distribution Width 15.6 % (12.1-15.1); White Blood Count 4.14 10^3/uL (3.29-11.43)
[2025-02-14 04:24] LABS: Alanine Aminotransferase 8 U/L (0-41); Albumin Level 3.6 g/dL (3.5-5.2); Alkaline Phosphatase 67 U/L (40-130); Aspartate Amino Transferase 10 U/L (0-40); Blood Urea Nitrogen 15 mg/dL (6-20); Calcium 8.6 mg/dL (8.5-10.5); Carbon Dioxide 31 mmol/L (22-29); Chloride 98 mmol/L (98-107); Creatinine Clr Calc Pharmacy 18.3868; Globulin 1.8 g/dL (1.3-4.6); Glucose 121 mg/dL (65-115); Osmolality Calculated 290 mOsm/kg (285-295); Sodium 139 mmol/L (136-145); Total Bilirubin 0.3 mg/dL (0.15-1.2); Total Protein 5.4 g/dL (6.6-8.7)
[2025-02-14 04:25] LABS: Chol HDL Ratio 2.64 mg/dL (1.0-5.00); Cholesterol 103 mg/dL (0-200); HDL Cholesterol 39 mg/dL (60-100); LDL Cholesterol Calculated 41 mg/dL (50-129); Magnesium 2.2 mg/dL (1.7-2.3); Triglycerides 115 mg/dL (0-150); VLDL Cholestrol Calculation 23 mg/dL (0-30)
[2025-02-14 04:37] LABS: Folate Level 5.2 ng/mL (4.5-32.2)
[2025-02-14] MEDS: TRAMadol 50 mg Tablet PO (04:44)
[2025-02-14 06:14] LABS: Glucose Point of Care 59 mg/dL (70-110)
[2025-02-14 06:48] LABS: Glucose Point of Care 76 mg/dL (70-110)
--- NOTE | 2025-02-14 07:30 | PC.NURSE ---
Nicotine chew can .oted on pt's bedside table
--- NOTE | 2025-02-14 07:56 | PC.NURSE ---
Pt stated I do not need any advice. Trust me I have been doing this since I was 5, I know what I am doing Referring to his renal disease and dialysis.
[2025-02-14 08:13] LABS: Glucose Point of Care 82 mg/dL (70-110)
[2025-02-14] MEDS: labetalol 200 mg Tablet PO (08:25)
[2025-02-14] MEDS: sevelamer 800 mg Tablet PO (08:25)
[2025-02-14] MEDS: levETIRAcetam 500 mg Tablet PO (08:25)
[2025-02-14] MEDS: divalproex DR 500 mg Tablet PO (08:25)
[2025-02-14] MEDS: losartan 50 mg Tablet PO (08:26)
[2025-02-14] MEDS: amlodipine 10 mg Tablet PO (08:29)
[2025-02-14] MEDS: CLONazepam 1 mg Tablet PO (09:22)
[2025-02-14 09:23] LABS: Glucose Point of Care 140 mg/dL (70-110)
--- NOTE | 2025-02-14 09:30 | P.PN_ITS ---
Subjective 2 Subjective: s/p HD yesterday Medications: Reviewed: Yes Vitals/I&O/Wt Last Vital Signs Temp 98.1 F 02/14/25 06:18 Pulse 98 02/14/25 05:39 Resp 23 H 02/14/25 05:00 BP 157/106 02/14/25 08:26 Pulse Ox 93 02/14/25 05:00 O2 Del Method Room Air 02/13/25 16:00 O2 Flow Rate 4 02/12/25 14:14 02/13/25 02/14/25 02/14/25 22:59 06:59 14:59 Intake Total 740 / 1521.333 Output Total 1500 / 1500 Balance -760 / 21.333 Weight last 48 hrs Weight 58.5 kg Weight 58.967 kg Weight 59 kg Weight 62 kg Physical Exam 2 Narrative: awake , alert , NO DISTRESS PEERLA S1S2 RRR per report Lungs + crackles per report Abd soft , non tender per report No edema Data 02/14/25 03:25 02/14/25 03:25 Micro: Microbiology 02/12/25 06:35 Blood Culture - Preliminary Blood NEGATIVE TO DATE 02/12/25 06:35 Blood Culture - Preliminary Blood NEGATIVE TO DATE A&P Assessment and plan (1) ESRD on dialysis: 24-year-old gentleman history of ESRD failed renal transplant. History of anxiety history of drug use in the past. pt presented with SOB . 1. ESRD - thu, HD yesterday 3. HTN , BP elevated , resumed home meds 4. Anemia , s/p RUBA with HD 5. Renal bone mineral metabolism , continue Renvela . 6. Failed renal transplant 7. Hypoglycemia , improved 8. Hyperkalemia , s/p HD a above and low K diet seen and examined w/ RN- telehealth visit using A/V equipement- RN examined pt. Plan see above PDMP PDMP Reviewed: Not Reviewed Attestations 2 Medical Necessity Statement*: per anju Coding Level of Care Code Acute Code for Chg Fwd Diagnoses ESRD on dialysis N18.6; Z99.2
--- NOTE | 2025-02-14 10:09 | PM.DCS ---
Discharge Providers Date of Admission: 02/12/25 07:05 Date of Discharge: February 14, 2025 Attending Provider at Admission: Raquel Berry MD Attending Provider at Discharge: Deven Shah MD Primary Care Provider: Renetta Cole NP Diagnoses at Discharge Discharge Diagnosis (1) ESRD on dialysis: Status: Acute (2) Adrenal insufficiency: Status: Acute (3) Acute hyperkalemia: Status: Acute (4) CKD (chronic kidney disease): Status: Chronic Qualifiers: Chronic kidney disease stage: on chronic dialysis Qualified Code(s): N18.6 - End stage renal disease; Z99.2 - Dependence on renal dialysis (5) Renal transplant failure and rejection: Status: Acute (6) Acute respiratory failure with hypoxia: Status: Acute (7) Hypoglycemia: Status: Acute Reason for Visit Reason for Visit: headache Brief History: Vance Sainz is a 24 year old male history of end-stage renal disease, on dialysis, history of renal transplant results from 2010, complicated by graft failure, currently on transplant rejection medications, dialysis schedule Thursday, non compliant with HD who presents to [facility] for Severe dry cough and shortness of breath. Denies any complaint of chest pain, dizziness, palpitations, nausea/vomiting/diarrhea or urinary complaints. He is a very poor historian. Had continuous dry cough and unable to answer questions appropriately. He further states that he missed dialysis on Thursday. He has been admitted to [facility] in the past for depression and suicidal thoughts. He received regular insulin 10 units and calcium gluconate for hyperkalemia of 6.6 in ED. His blood sugar was found to be 27 improved with orange juice. Blood sugar currently 162 in ICU. In the ER was found to have hemoglobin of 9.2, platelets 123, potassium 6.6, creatinine 9.8, hypoxic with saturation of 85% on room air, BNP 46 526 Hospital Course Hospital Course Patient was admitted to the hospital for evaluation and management of hypoxic respiratory failure in setting of fluid overload, concerns for right lower lobe pneumonia, hyperkalemia in setting of end-stage renal disease on hemodialysis. Nephrology was consulted and he was started on emergent dialysis. He was also found to have persistent hypoglycemia for which she was continued on D10 fluid. During hospitalization he was found to have uncontrolled hypertension for which his home antihypertensives were adjusted. Further workup was done for persistent hypoglycemia in which she was found to have adrenal insufficiency with low cortisol levels and poor response to cosyntropin stimulation test. He is been discharged in stable condition advised to follow-up on his outpatient dialysis sessions, antihypertensives were adjusted with losartan dose increased to 50 mg daily while continuing his other oral antihypertensive. He has been discharged on 10 mg of prednisone for next 4 weeks followed by 5 mg daily. Physical Exam Narrative: He is alert, awake and oriented x3 chest- b/l coarse crackles present CVS normal heart sounds Abdomen-soft, NT ND normal bowel sounds Ext- no edema Discharge Data Studies Completed and Pending Completed Studies During Hospitalization Category Date Time Status CT head wo con* [id number] Stat Cat Scan 02/12/25 06:11 Completed CXRP [XR chest 1V portable [id number]] Stat Exams 02/12/25 06:11 Completed Pending at discharge Category Date Time Status Adrenocorticotropic Hormone Routine Lab 02/13/25 16:14 Received Blood Culture Stat Lab 02/12/25 06:35 Results Complete Blood Count w/Auto AM LABS Lab 02/15/25 04:00 Ordered Comprehensive Metabolic Panel AM LABS Lab 02/15/25 04:00 Ordered MAG [Magnesium] AM LABS Lab 02/15/25 04:00 Ordered MAG [Magnesium] AM LABS Lab 02/16/25 04:00 Ordered Radiology Impressions Chest X-Ray 02/12/25 06:11 IMPRESSION: Moderately extensive right lower lobe infiltrate. Head CT 02/12/25 06:11 IMPRESSION: No acute intracranial abnormality. Laboratory Results WBC 4.14 10^3/uL (3.29-11.43) 02/14/25 03:25 RBC 2.89 10^6/uL (3.85-5.65) L 02/14/25 03:25 Hgb 9.00 g/dL (11.27-16.99) L 02/14/25 03:25 Hct 28.3 % (37-53) L 02/14/25 03:25 MCV 97.9 fl (82-101) 02/14/25 03:25 MCH 31.1 pg (27-33) 02/14/25 03:25 MCHC 31.8 g/dL (30-55) 02/14/25 03:25 RDW 15.6 % (12.1-15.1) H 02/14/25 03:25 Plt Count 152 10^3/cmm (157-399) L 02/14/25 03:25 MPV 10.3 fL (7.4-10.4) 02/14/25 03:25 Neut % (Auto) 64.7 % 02/14/25 03:25 Lymph % (Auto) 17.6 % 02/14/25 03:25 [place] % (Auto) 11.4 % 02/14/25 03:25 Eos % (Auto) 5.1 % 02/14/25 03:25 Baso % (Auto) 0.7 % 02/14/25 03:25 Neut # (Auto) 2.68 10^3/uL (1.8-7.7) 02/14/25 03:25 Lymph # (Auto) 0.7 10^3/uL (0.8-4.8) L 02/14/25 03:25 [place] # (Auto) 0.5 10^3/uL (0.2-0.9) 02/14/25 03:25 Eos # (Auto) 0.2 10^3/uL (0.0-0.8) 02/14/25 03:25 Baso # (Auto) 0.0 10^3/uL (0.0-0.1) 02/14/25 03:25 Nucleated RBC % (auto) 0 % 02/14/25 03:25 Nucleated RBCs # 0.0 /100WBC 02/14/25 03:25 Specimen Type Arterial 02/12/25 06:42 Sample Site Radial, left 02/12/25 06:42 ABG pH 7.45 (7.35-7.45) 02/12/25 06:42 ABG pCO2 39.7 mmHg (35-45) 02/12/25 06:42 ABG pO2 55.6 mmHg (80.0-100.0) L 02/12/25 06:42 ABG HCO3 27.6 mmol/L (22-26) H 02/12/25 06:42 ABG O2 Saturation 89.5 02/12/25 06:42 ABG Base Excess 3.3 mmol/L (-2.0-2.0) H 02/12/25 06:42 Paul Test Pos 02/12/25 06:42 A-a O2 Gradient 6.0 mmHg (5-10) 02/12/25 06:42 Hematocrit 27.9 % (42-52) L 02/12/25 06:42 Hgb O2 Saturation 85.9 % (95-100) L 02/12/25 06:42 Carboxyhemoglobin 2.8 %THgb (0.4-20.1) 02/12/25 06:42 Methemoglobin 1.2 % (0.4-1.5) 02/12/25 06:42 Total Hemoglobin 9.1 g/dL (14-18) L 02/12/25 06:42 Sodium 138.0 mmol/L (131-143) 02/12/25 06:42 Potassium 6.1 mmol/L (3.5-5.0) H 02/12/25 06:42 Glucose 75.0 mg/dL (70-115) 02/12/25 06:42 Ionized Calcium 1.1 mmol/L (1.1-1.4) 02/12/25 06:42 O2 Delivery Device Oxy mask 02/12/25 06:42 O2 Liters/Min 4.0 % 02/12/25 06:42 Direct Support Staff ID [email or web address] 02/12/25 06:42 Sodium 139 mmol/L (136-145) 02/14/25 03:25 Potassium 5.0 mmol/L (3.5-5.1) 02/14/25 03:25 Chloride 98 mmol/L (98-107) 02/14/25 03:25 Carbon Dioxide 31 mmol/L (22-29) H 02/14/25 03:25 Anion Gap 15.0 (5-19) 02/14/25 03:25 BUN 15 mg/dL (6-20) 02/14/25 03:25 Creatinine 4.8 mg/dL (0.7-1.2) H 02/14/25 03:25 GFR Calculation 15.0 mL/min (90-130) L 02/14/25 03:25 Glucose 121 mg/dL (65-115) H 02/14/25 03:25 POC Glucose 140 mg/dL (70-110) H 02/14/25 09:19 Estimat Average Glucose 88 02/13/25 06:27 Hemoglobin A1c 4.7 % (4.0-6.0) 02/13/25 06:27 Calculated Osmolality 290 mOsm/kg (285-295) 02/14/25 03:25 Calcium 8.6 mg/dL (8.5-10.5) 02/14/25 03:25 Magnesium 2.2 mg/dL (1.7-2.3) 02/14/25 03:25 Iron 109 ug/dL (59-158) 02/13/25 06:27 TIBC 160 mcg/dl 02/13/25 06: % Saturation 68.1 % (20-50) H 02/13/25 06:27 Unsat Iron Binding 51 ug/dL (112-347) L 02/13/25 06:27 Total Bilirubin 0.3 mg/dL (0.15-1.2) 02/14/25 03:25 AST 10 U/L (0-40) 02/14/25 03:25 ALT 8 U/L (0-41) 02/14/25 03:25 Alkaline Phosphatase 67 U/L (40-130) 02/14/25 03:25 NT-Pro-B Natriuret Pep 99429 pg/mL (0-125) H 02/13/25 06:27 Total Protein 5.4 g/dL (6.6-8.7) L 02/14/25 03:25 Albumin 3.6 g/dL (3.5-5.2) 02/14/25 03:25 Globulin 1.8 g/dL (1.3-4.6) 02/14/25 03:25 Triglycerides 115 mg/dL (0-150) 02/14/25 03:25 Cholesterol 103 mg/dL (0-200) 02/14/25 03:25 LDL Cholesterol, Calc 41 mg/dL (50-129) L 02/14/25 03:25 Total VLDL Cholesterol 23 mg/dL (0-30) 02/14/25 03:25 HDL Cholesterol 39 mg/dL (60-100) L 02/14/25 03:25 Cholesterol/HDL Ratio 2.64 mg/dL (1.0-5.00) 02/14/25 03:25 Vitamin B12 440 pg/mL (232-1245) 02/13/25 06: Folate 5.2 ng/mL (4.5-32.2) 02/14/25 03:25 Procalcitonin 0.64 ng/mL (0-0.5) H 02/13/25 06: TSH 0.99 uIU/mL (0.27-4.20) 02/13/25 06: Random Cortisol 2.41 ug/dL (2.47-19.5) L 02/13/25 06: Cortisol Response 02/13/25 13:16 Adenovirus (PCR) Not detected (NOT DETECT) 02/12/25 08:04 C. pneumoniae DNA (PCR) Not detected (NOT DETECT) 02/12/25 08:04 Coronavirus 229E (PCR) Not detected (NOT DETECT) 02/12/25 08:04 Hep Bs Antigen Non-reactive (Nonreactive) 02/12/25 06:18 Hep Bs Antibody 25.9 (11.5-1000) 02/12/25 06:18 Human Metapneumovir PCR Not detected (NOT DETECT) 02/12/25 08:04 Influenza A (H1) PCR Not detected (NOT DETECT) 02/12/25 08:04 Influ A (H1/09) PCR Not detected (NOT DETECT) 02/12/25 08:04 Influenza A (H3) PCR Not detected (NOT DETECT) 02/12/25 08:04 Influenza Type A (PCR) Not detected (NOT DETECT) 02/12/25 08:04 Influenza Type B (PCR) Not detected (NOT DETECT) 02/12/25 08:04 M. pneumoniae (PCR) Not detected (NOT DETECT) 02/12/25 08:04 Parainfluenza 1 (PCR) Not detected (NOT DETECT) 02/12/25 08:04 Parainfluenza 2 (PCR) Not detected (NOT DETECT) 02/12/25 08:04 Parainfluenza 3 (PCR) Not detected (NOT DETECT) 02/12/25 08:04 Parainfluenza 4 (PCR) Not detected (NOT DETECT) 02/12/25 08:04 RSV Type A (PCR) Not detected (NOT DETECT) 02/12/25 08:04 RSV Type B (PCR) Not detected (NOT DETECT) 02/12/25 08:04 Entero/Rhino (PCR) Not detected (NOT DETECT) 02/12/25 08:04 SARS-CoV-2 (PCR) Not detected (NOT DETECT) 02/12/25 08:04 Vitals Last Vital Signs Temp 98.1 F 02/14/25 06:18 Pulse 98 02/14/25 05:39 Resp 23 H 02/14/25 05:00 BP 157/106 02/14/25 08:26 Pulse Ox 93 02/14/25 05:00 O2 Del Method Room Air 02/13/25 16:00 O2 Flow Rate 4 02/12/25 14:14 Discharge Plan Discharge Patient Disposition: Home Condition: Stable Prescriptions: New prednisone 5 mg tablet 5 mg PO DAILY Qty: 60 2RF Rx Instructions: Take 10 mg for 4 weeks, then 5 mg daily Continued B-complex with vitamin C Tablet 1 tab PO DAILY 30 Days Qty: 30 1RF divalproex 500 mg tablet,delayed release (DR/EC) 500 mg PO BID 30 Days Qty: 60 1RF hydrocodone-acetaminophen 5-325 mg tablet 1 tab PO QID PRN (Reason: Pain) hydralazine 50 mg tablet See Rx Instructions .ROUTE .COMPLEX Rx Instructions: Take 1 Tablet (50 mg) by mouth every 8 hours. Take an additional dose every 6 hours prn if SBP > 160, DBP >100. trazodone 50 mg tablet 50 mg PO BEDTIME levetiracetam 500 mg tablet See Rx Instructions .ROUTE .COMPLEX Rx Instructions: Take 1 Tablet (500 mg) by mouth 2 times daily. If you have dialysis before 9 AM, please wait to take your morning dose of Keppra until after dialysis. sevelamer carbonate 800 mg tablet See Rx Instructions .ROUTE .COMPLEX Rx Instructions: TAKE 1 TO 2 TABLETS BY MOUTH THREE TIMES DAILY WITH MEALS (TAKE 2 FOR A LARGE MEAL) venlafaxine 37.5 mg capsule,extended release 24hr 37.5 mg PO DAILY labetalol 100 mg tablet 200 mg PO BID RenaPlex-D 800 mcg-12.5 mg -2,000 unit tablet 1 tab PO DAILY amlodipine 10 mg tablet 10 mg PO DAILY clonazepam [Klonopin] 1 mg tablet 1 mg PO BID PRN (Reason: anxiety) Qty: 10 0RF Changed losartan 25 mg tablet 50 mg PO DAILY Qty: 60 0RF Discharge Orders: Discharge Order (Routine); Ordered 02/14/25 Ordered By: Deven Shah Referrals: Renetta Cole NP [Primary Care Provider] - 02/21/25 10:30 am Patient Instructions: Prednisone (By mouth), Hypoglycemia, Viral Pneumonia (DC), Hyperkalemia (DC), Hypoxia (GEN), Opioid Safety Discharge Attestations Time Spent in Discharge Care*: greater than 30 min Specific Discharge Activities: educating patient, educating and/or supporting family/caregiver, discussing with pcp/other providers, discussing with insurance case manager/social workers/dc planners, documenting/other paperwork and evaluating patient/reviewing data Status at Discharge: Behavioral status at discharge: cooperative, Functional status at discharge: independent ambulation, Overall status at discharge: patient is back to baseline Quality Metrics Clinical Quality Measures [ No reported AMI, CVA or VTE this stay] Coding Level of Care Code 06849 Total time (in minutes) for Discharge: 70 Diagnoses ESRD on dialysis N18.6; Z99.2 Adrenal insufficiency E27.40 Acute hyperkalemia E87.5 CKD (chronic kidney disease) N18.6; Z99.2 Chronic kidney disease stage: on chronic dialysis Renal transplant failure and rejection T86.12; T86.11 Acute respiratory failure with hypoxia J96.01 Hypoglycemia E16.2
[2025-02-14 10:17] LABS: Glucose Point of Care 101 mg/dL (70-110)
[2025-02-16 17:45] LABS: Adrenocorticotropic Hormone 7 pg/mL (6-50)
== END 2025-02-14 11:10 | disposition home or self-care (01) | DRG 640 ==
LOC: ER 09:36 → ICU 10:05
PROVIDERS: Hospitalist; Admitting Provider Internal Medicine; Emergency Provider Emergency Medicine; PCP Nurse Practitioner Family; Visit Provider Student in an Organized Health Care Education/Training Program
DX: E87.70 Fluid overload, unspecified (principal); J18.9 Pneumonia, unspecified organism; J96.01 Acute respiratory failure with hypoxia; N18.6 End stage renal disease; F33.9 Major depressive disorder, recurrent, unspecified; T86.12 Kidney transplant failure; E27.40 Unspecified adrenocortical insufficiency; Z79.899 Other long term (current) drug therapy; Z88.6 Allergy status to analgesic agent; F41.1 Generalized anxiety disorder; F32.A Depression, unspecified; F41.9 Anxiety disorder, unspecified; E87.5 Hyperkalemia; Z99.2 Dependence on renal dialysis; E16.2 Hypoglycemia, unspecified
CPT/HCPCS: 36415; 36416; 36600; 70450; 71045; 80051; 80053; 80061; 82024; 82330; 82533; 82607; 82746; 82805; 82962; 83036; 83540; 83550; 83735; 83880; 84145; 84443; 85025; 86706; 87040; 87340; 87486; 87581; 87633; 90935; 93005; 94664; 96365; 96372; 96374; 96375; 96376; 99291; J0360; J0456; J0612; J0696; J0834; J1200; J1644; J1650; J1815; J2060; J2270; J2405; J2470; J2765; J7050; J7799; J9999; Q3014

== ENCOUNTER 2025-03-07 21:30 | Emergency (ER) | payer MEDICARE, MEDICAID, SELFPAY ==
[2025-03-07 21:37] VITALS: BP 126/79; PULSE 77; RESP 16; TEMP 36.6; O2SAT 98; BMI 20.7
--- NOTE | 2025-03-07 21:39 | ECG_ITS ---
[facility] [place] [facility] Date: 2025-03-07 Pat Name: Vance Sainz Department: Room: Gender: Male Training Technician: : 2000 Requested By: Serafin Peña Order Number: [id number] Danisha MD: Nuha Garcia M.D. Measurements Intervals [place] Rate: 63 P: 78 OK: 141 QRS: 75 QRSD: 102 T: 81 QT: 478 QTc: 493 Interpretive Statements SINUS RHYTHM PROLONGED QT INTERVAL Compared to ECG 02/12/2025 06:56:14 Prolonged QT interval now present Electronically Signed On 03-09-2025 18:13:31 CDT by Nuha Garcia M.D. [email or web address]
--- NOTE | 2025-03-07 21:50 | XRR_ITS ---
PROCEDURE INFORMATION: Exam: XR Chest Exam date and time: 03/07/2025 9:50 PM Age: 24 years old Clinical indication: Shortness of breath; Additional info: SOB TECHNIQUE: Imaging protocol: Radiologic exam of the chest. Views: 1 view. COMPARISON: CR (CHEST, ) 02/12/2025 6:14 AM FINDINGS: Lungs: Unremarkable. No consolidation. Pleural spaces: Unremarkable. No pleural effusion. No pneumothorax. Heart/Mediastinum: Unremarkable. No cardiomegaly. Bones/joints: Unremarkable. XR/XR chest 1V portable [id number] IMPRESSION: No acute findings.
--- NOTE | 2025-03-07 21:55 | W.ED.GENADLT ---
HPI - General Adult General: Chief complaint: General Medical Stated complaint: Missed dialysis neck & back pain Time Seen by Provider: 03/07/25 21:49 Source: patient Mode of arrival: ambulatory Limitations: no limitations History of Present Illness: 24-year-old male history of end-stage renal disease on dialysis states that he had missed his dialysis on Thursday his last Allises Thursday is scheduled tomorrow states he feels like he is having some slight fluid overload states he is also having some neck pain. Denies any fever denies any chest pain denies vomiting diarrhea Associated symptoms: Deny chest pain, dyspnea, headache(s), nausea, rash or vomiting Related Data Home Medications ?Medication ?Instructions ?Recorded ?Confirmed amlodipine 10 mg tablet 10 mg PO DAILY 09/11/24 02/13/25 labetalol 100 mg tablet 200 mg PO BID 09/11/24 02/13/25 venlafaxine 37.5 mg 37.5 mg PO DAILY 09/11/24 02/12/25 capsule,extended release 24 hr vit B,C-folic ac 800 mcg-zinc 12.5 1 tab PO DAILY 09/11/24 02/12/25 mg-selen-D3 2,000 unit-vit E tablet (RenaPlex-D) hydralazine 50 mg tablet See Rx Instructions .Route .COMPLEX 02/08/25 02/13/25 hydrocodone 5 mg-acetaminophen 325 1 tab PO QID PRN Pain 02/08/25 02/13/25 mg tablet levetiracetam 500 mg tablet See Rx Instructions .Route .COMPLEX 02/12/25 02/13/25 sevelamer carbonate 800 mg tablet See Rx Instructions .Route .COMPLEX 02/12/25 02/13/25 trazodone 50 mg tablet 50 mg PO BEDTIME 02/12/25 02/13/25 Previous Rx's ?Medication ?Instructions ?Recorded B-complex with vitamin C 1 tab PO DAILY 30 days #30 tabs 08/04/24 divalproex 500 mg tablet,delayed 500 mg PO BID 30 days #60 tabs 08/04/24 release clonazepam 1 mg tablet (Klonopin) 1 mg PO BID PRN anxiety #10 tabs 01/09/25 losartan 25 mg tablet 50 mg (2 x 25 mg) PO DAILY #60 tabs 02/14/25 prednisone 5 mg tablet 5 mg PO DAILY #60 tabs 02/14/25 Allergies Allergy/AdvReac Type Severity Reaction Status Date / Time NSAIDS (Non-Steroidal Allergy Severe unable to Verified 03/07/25 21:42 Anti-Inflamma take due to kidney disease grapefruit Allergy Unknown Verified 03/07/25 21:42 sertraline (From Zoloft) Allergy Unknown Verified 03/07/25 21:42 Review of Systems Const: Denies: fever(s), chills, body aches or change in appetite Eyes: Denies: blurry vision or eye discomfort ENMT: Denies: throat pain or dental pain Card: Denies: chest pain Resp: Denies: dyspnea GI: Denies: abdominal pain, nausea, vomiting or diarrhea Musc: Reports: back pain; Denies: neck pain Skin/Breast: Denies: rash Neuro: Denies: headache(s) PFSH ED PFSH: Medical History Adrenal insufficiency Hypoglycemia CKD (chronic kidney disease) stage V requiring chronic dialysis Generalized anxiety disorder Other stimulant dependence, in remission Problems related to lack of adequate sleep Substance abuse Depression Anxiety Social History Smoking and tobacco/nicotine status: never used tobacco/nicotine Quit status (tobacco/nicotine): has tried quititng Number of times tried to quit tobacco: 4 Second hand smoke exposure: No Physical Exam Const: COMMON NORMALS: no acute distress, patient oriented x3 and healthy appearing HENMT: COMMON NORMALS: normocephalic and atraumatic HEAD & SCALP: normocephalic and atraumatic Eye: COMMON NORMALS: conjunctivae normal CONJUNCTIVA: Yes conjunctivae normal Neck/C-Spine: COMMON NORMALS: full ROM and supple Chest: COMMONS NORMALS: normal inspection of the chest and normal palpation of entire chest wall Resp: COMMON NORMALS: normal respiratory effort, No retractions, No use of accessory muscles and clear to auscultation bilaterally AUSCULTATION: clear to auscultation bilaterally Cardio: COMMON NORMALS: regular rate, regular rhythm and No murmurs present (Cardio) RATE: regular rate RHYTHM: regular rhythm Extremity: COMMON NORMALS: normal to inspection and full ROM Neuro: COMMON NORMALS: patient oriented x3, moves all extremities and no focal motor deficits Psych: COMMON NORMALS: mental status grossly normal, Normal thought process present and cooperative THOUGHT PROCESS: Normal thought process present Skin: COMMON NORMALS: no rashes or lesions noted and no wounds GENERAL SKIN EXAM: no rashes or lesions noted Course Vital Signs: Vital signs: Vital Signs Temperature 97.9 F 03/07/25 21:37 Pulse Rate 77 03/07/25 21:37 Respiratory Rate 16 03/07/25 21:37 Blood Pressure 126/79 03/07/25 21:37 Pulse Oximetry 98 03/07/25 21:37 [facility] - General Adult Medical Decision Making Patient presents here with neck pain he has chronic kidney disease advance his dialysis potassium here is normal he is well-appearing here he stable for discharge he is to go to his dialysis appointment tomorrow. He understands agrees to plan Medical Records I reviewed the patient's medical records. Lab Data I reviewed the patient's lab results. 03/07/25 22:01 03/07/25 22:01 Radiology Impressions Chest X-Ray 03/07/25 21:50 IMPRESSION: No acute findings. Laboratory Results WBC 5.60 10^3/uL (3.29-11.43) 03/07/25 22:01 RBC 3.18 10^6/uL (3.85-5.65) L 03/07/25 22:01 Hgb 10.20 g/dL (11.27-16.99) L 03/07/25 22:01 Hct 30.5 % (37-53) L 03/07/25 22:01 MCV 95.9 fl (82-101) 03/07/25 22:01 MCH 32.1 pg (27-33) 03/07/25 22: MCHC 33.4 g/dL (30-55) 03/07/25 22:01 RDW 18.2 % (12.1-15.1) H 03/07/25 22:01 Plt Count 193 10^3/cmm (157-399) 03/07/25 22:01 MPV 10.0 fL (7.4-10.4) 03/07/25 22:01 Neut % (Auto) 78.8 % 03/07/25 22:01 Lymph % (Auto) 8.9 % 03/07/25 22:01 [place] % (Auto) 10.5 % 03/07/25 22:01 Eos % (Auto) 0.9 % 03/07/25 22:01 Baso % (Auto) 0.7 % 03/07/25 22: Neut # (Auto) 4.41 10^3/uL (1.8-7.7) 03/07/25 22:01 Lymph # (Auto) 0.5 10^3/uL (0.8-4.8) L 03/07/25 22:01 [place] # (Auto) 0.6 10^3/uL (0.2-0.9) 03/07/25 22: Eos # (Auto) 0.1 10^3/uL (0.0-0.8) 03/07/25 22: Baso # (Auto) 0.0 10^3/uL (0.0-0.1) 03/07/25 22:01 Nucleated RBC % (auto) 0 % 03/07/25 22: Nucleated RBCs # 0.0 /100WBC 03/07/25 22: Sodium 138 mmol/L (136-145) 03/07/25 22: Potassium 4.2 mmol/L (3.5-5.1) 03/07/25 22: Chloride 93 mmol/L (98-107) L 03/07/25 22: Carbon Dioxide 21 mmol/L (22-29) L 03/07/25 22: Anion Gap 28.2 (5-19) H 03/07/25 22: BUN 71 mg/dL (6-20) H 03/07/25 22: Creatinine 15.8 mg/dL (0.7-1.2) H* 03/07/25 22: GFR Calculation 3.8 mL/min (90-130) L 03/07/25 22: Glucose 134 mg/dL (65-115) H 03/07/25 22: Calculated Osmolality 309 mOsm/kg (285-295) H 03/07/25 22: Calcium 8.9 mg/dL (8.5-10.5) 03/07/25 22: Total Bilirubin 0.2 mg/dL (0.15-1.2) 03/07/25 22: AST 10 U/L (0-40) 03/07/25 22:01 ALT 7 U/L (0-41) 03/07/25 22:01 Alkaline Phosphatase 88 U/L (40-130) 03/07/25 22:01 NT-Pro-B Natriuret Pep 22877 pg/mL (0-125) H 03/07/25 22:01 Total Protein 6.6 g/dL (6.6-8.7) 03/07/25 22:01 Albumin 4.4 g/dL (3.5-5.2) 03/07/25 22:01 Globulin 2.2 g/dL (1.3-4.6) 03/07/25 22:01 All radiology interpretation(s) finalized by discharge EKG Data EKG 1: I personally reviewed and interpreted this EKG as follows: EKG interpretation date: 03/07/25 EKG interpretation time: 21:44 Interpretation: nsr hr [address] or t wave abnormalities qrs 102 qtc 486 Computer generated interpretation: Chest X-Ray 03/07/25 21:50 IMPRESSION: No acute findings. Discharge Plan Discharge Patient Disposition: Home Clinical Impression: Neck pain CKD (chronic kidney disease) Qualifiers: Chronic kidney disease stage: on chronic dialysis Qualified Code(s): N18.6 - End stage renal disease Condition: Stable Prescriptions: No Action B-complex with vitamin C Tablet 1 tab PO DAILY 30 Days Qty: 30 1RF divalproex 500 mg tablet,delayed release (DR/EC) 500 mg PO BID 30 Days Qty: 60 1RF hydrocodone-acetaminophen 5-325 mg tablet 1 tab PO QID PRN (Reason: Pain) hydralazine 50 mg tablet See Rx Instructions .ROUTE .COMPLEX Rx Instructions: Take 1 Tablet (50 mg) by mouth every 8 hours. Take an additional dose every 6 hours prn if SBP > 160, DBP >100. trazodone 50 mg tablet 50 mg PO BEDTIME levetiracetam 500 mg tablet See Rx Instructions .ROUTE .COMPLEX Rx Instructions: Take 1 Tablet (500 mg) by mouth 2 times daily. If you have dialysis before 9 AM, please wait to take your morning dose of Keppra until after dialysis. sevelamer carbonate 800 mg tablet See Rx Instructions .ROUTE .COMPLEX Rx Instructions: TAKE 1 TO 2 TABLETS BY MOUTH THREE TIMES DAILY WITH MEALS (TAKE 2 FOR A LARGE MEAL) prednisone 5 mg tablet 5 mg PO DAILY Qty: 60 2RF Rx Instructions: Take 10 mg for 4 weeks, then 5 mg daily losartan 25 mg tablet 50 mg PO DAILY Qty: 60 0RF venlafaxine 37.5 mg capsule,extended release 24hr 37.5 mg PO DAILY labetalol 100 mg tablet 200 mg PO BID RenaPlex-D 800 mcg-12.5 mg -2,000 unit tablet 1 tab PO DAILY amlodipine 10 mg tablet 10 mg PO DAILY clonazepam [Klonopin] 1 mg tablet 1 mg PO BID PRN (Reason: anxiety) Qty: 10 0RF Discharge Orders: Discharge ED (Routine); Ordered 03/07/25 Ordered By: Serafin Peña Referrals: Renetta Cole TAX ACCOUNTANT [Primary Care Provider, Nurse Practitioner] - 4-7 days Discharge Diet: Advance as tolerated Discharge Activity: Resume usual activity Patient Instructions: Acute Neck Pain (ED) Print Language: Greenlandic Coding Level of Care Code ED Product Safety Test Engineer for Loida Menon
[2025-03-07 22:10] LABS: Basophils % 0.7 %; Eosinophils # 0.1 10^3/uL (0.0-0.8); Eosinophils % 0.9 %; Hematocrit 30.5 % (37-53); Lymphocytes # 0.5 10^3/uL (0.8-4.8); Lymphocytes % 8.9 %; Mean Corpuscular HGB Conc 33.4 g/dL (30-55); Mean Corpuscular Hemoglobin 32.1 pg (27-33); Mean Corpuscular Volume 95.9 fl (82-101); Monocytes # 0.6 10^3/uL (0.2-0.9); Monocytes % 10.5 %; Neutrophils # 4.41 10^3/uL (1.8-7.7); Neutrophils % 78.8 %; Nucleated Red Blood Cells % 0 %; Platelet Count 193 10^3/cmm (157-399); Red Blood Count 3.18 10^6/uL (3.85-5.65); Red Cell Distribution Width 18.2 % (12.1-15.1)
[2025-03-07] MEDS: ondansetron 2 mg/ML SDV 2 mL 4 MG IVP (22:18)
[2025-03-07] MEDS: morphine 4 mg/mL SDV 1 mL IVP (22:18)
[2025-03-07 22:41] LABS: Alanine Aminotransferase 7 U/L (0-41); Albumin Level 4.4 g/dL (3.5-5.2); Alkaline Phosphatase 88 U/L (40-130); Anion Gap 28.2 (5-19); Aspartate Amino Transferase 10 U/L (0-40); Blood Urea Nitrogen 71 mg/dL (6-20); Calcium 8.9 mg/dL (8.5-10.5); Carbon Dioxide 21 mmol/L (22-29); Chloride 93 mmol/L (98-107); Creatinine Clr Calc Pharmacy 5.2349; Globulin 2.2 g/dL (1.3-4.6); Glomerular Filtration Rate 3.8 mL/min (90-130); Glucose 134 mg/dL (65-115); NT Pro B Type Natriuretic Pept 23833 pg/mL (0-125); Osmolality Calculated 309 mOsm/kg (285-295); Potassium 4.2 mmol/L (3.5-5.1); Sodium 138 mmol/L (136-145); Total Bilirubin 0.2 mg/dL (0.15-1.2); Total Protein 6.6 g/dL (6.6-8.7)
[2025-03-07] MEDS: methocarbamol 750 mg Tablet 1500 MG PO (23:01)
[2025-03-07 23:09] VITALS: BP 117/57; PULSE 66; RESP 16; O2SAT 97
== END 2025-03-07 23:11 | disposition home or self-care (01) ==
PROVIDERS: Emergency Provider Emergency Medicine; PCP Nurse Practitioner Family
DX: M54.2 Cervicalgia (principal); Z87.891 Personal history of nicotine dependence; N18.6 End stage renal disease; Z99.2 Dependence on renal dialysis
CPT/HCPCS: 36415; 71045; 80053; 83880; 85025; 93005; 96374; 96375; 99285; J2270; J2405; J9999

== ENCOUNTER 2025-04-04 19:02 | Inpatient (IN) | payer MEDICARE, MEDICAID, SELFPAY ==
[2025-04-04 19:08] VITALS: BP 158/100; PULSE 75; RESP 16; TEMP 36.5; O2SAT 98; BMI 22.6
--- NOTE | 2025-04-04 19:29 | W.ED.PSYCHS ---
HPI - Psych General: Chief Complaint: Psychiatric Symptoms Stated Complaint: 96 HOUR HOLD Time Seen by Provider: 04/04/25 19:14 Source: patient and police Limitations: no limitations History of Present Illness: 24-year-old male is here with police for suicidal ideation patient has made 2 suicidal threats last 2 days today and got upset with his family told him that he was going to cut himself to kill himself he does admit to this states that he has been depressed and angry he does have a history of end-stage renal disease is on dialysis did miss his last dialysis appointment has no medical complaints at this time. Related Data Home Medications ?Medication ?Instructions ?Recorded ?Confirmed amlodipine 10 mg tablet 10 mg PO DAILY 09/11/24 04/05/25 labetalol 100 mg tablet 200 mg PO BID 09/11/24 04/05/25 vit B,C-folic ac 800 mcg-zinc 12.5 1 tab PO DAILY 09/11/24 04/05/25 mg-selen-D3 2,000 unit-vit E tablet (RenaPlex-D) hydrocodone 5 mg-acetaminophen 325 1 tab PO QID PRN Pain 02/08/25 04/05/25 mg tablet levetiracetam 500 mg tablet See Rx Instructions .Route .COMPLEX 02/12/25 04/05/25 sevelamer carbonate 800 mg tablet 800 - 1,600 mg PO TID 02/12/25 04/05/25 trazodone 50 mg tablet 50 mg PO BEDTIME 02/12/25 04/05/25 hydralazine 100 mg tablet 100 mg PO TID 04/05/25 04/05/25 losartan 25 mg tablet 25 mg PO DAILY 04/05/25 04/05/25 methocarbamol 500 mg tablet 500 - 1,000 mg PO Q6H PRN Muscle 04/05/25 04/05/25 Spasm olanzapine 10 mg tablet 15 mg PO BEDTIME 04/05/25 04/05/25 ondansetron 4 mg disintegrating 4 mg PO Q6H PRN Nausea And Vomiting 04/05/25 04/05/25 tablet sumatriptan 20 mg/actuation nasal 20 mg intranasal Q12H PRN Migraine 04/05/25 04/05/25 spray Headache Previous Rx's ?Medication ?Instructions ?Recorded B-complex with vitamin C 1 tab PO DAILY 30 days #30 tabs 10/17/24 divalproex 500 mg tablet,delayed 500 mg PO BID 30 days #60 tabs 08/04/24 release clonazepam 1 mg tablet (Klonopin) 1 mg PO BID PRN anxiety #10 tabs 01/09/25 prednisone 5 mg tablet 5 mg PO DAILY #60 tabs 02/14/25 Allergies Allergy/AdvReac Type Severity Reaction Status Date / Time NSAIDS (Non-Steroidal Allergy Severe unable to Verified 04/04/25 19:07 Anti-Inflamma take due to kidney disease sertraline (From Zoloft) Allergy Unknown Verified 04/04/25 19:07 [facility] ED PFSH: Medical History Adrenal insufficiency Hypoglycemia CKD (chronic kidney disease) stage V requiring chronic dialysis Generalized anxiety disorder Other stimulant dependence, in remission Problems related to lack of adequate sleep Substance abuse Depression Anxiety Social History Smoking and tobacco/nicotine status: never used tobacco/nicotine Quit status (tobacco/nicotine): has tried quititng Number of times tried to quit tobacco: 4 Second hand smoke exposure: No Physical Exam Const: COMMON NORMALS: no acute distress, patient oriented x3 and healthy appearing HENMT: COMMON NORMALS: normocephalic and atraumatic HEAD & SCALP: normocephalic and atraumatic Eye: COMMON NORMALS: conjunctivae normal CONJUNCTIVA: Yes conjunctivae normal Neck/C-Spine: COMMON NORMALS: full ROM and supple Chest: COMMONS NORMALS: normal inspection of the chest Resp: COMMON NORMALS: normal respiratory effort, No retractions, No use of accessory muscles and clear to auscultation bilaterally AUSCULTATION: clear to auscultation bilaterally Cardio: COMMON NORMALS: regular rate, regular rhythm and No murmurs present (Cardio) RATE: regular rate RHYTHM: regular rhythm Extremity: COMMON NORMALS: normal to inspection and full ROM Neuro: COMMON NORMALS: patient oriented x3, moves all extremities and no focal motor deficits Psych: COMMON NORMALS: mental status grossly normal, Normal thought process present and cooperative THOUGHT PROCESS: Normal thought process present THOUGHT CONTENT: Yes Suicidality present Skin: COMMON NORMALS: no rashes or lesions noted and no wounds GENERAL SKIN EXAM: no rashes or lesions noted Course Vital Signs: Vital signs: Vital Signs Temperature 97.7 F 04/04/25 19:08 Pulse Rate 61 04/05/25 04:10 Respiratory Rate 18 04/05/25 04:10 Blood Pressure 182/124 04/05/25 04:43 Pulse Oximetry 99 04/05/25 04:10 Oxygen Delivery Me thod Room Air 04/05/25 04:10 MDM - Psych Medical Decision Making Patient presents here with suicidal ideations he has been medically cleared does have a history end-stage renal disease spoke to psychiatrist will admit also spoke to archery instructor and hospitalist will be consulted for his end-stage renal disease. Medical Records I reviewed the patient's medical records. Lab Data I reviewed the patient's lab results. 04/04/25 19:43 04/05/25 06:46 Laboratory Results WBC 4.66 10^3/uL (3.29-11.43) 04/04/25 19:43 RBC 3.49 10^6/uL (3.85-5.65) L 04/04/25 19:43 Hgb 11.10 g/dL (11.27-16.99) L 04/04/25 19:43 Hct 34.1 % (37-53) L 04/04/25 19:43 MCV 97.7 fl (82-101) 04/04/25 19:43 MCH 31.8 pg (27-33) 04/04/25 19:43 MCHC 32.6 g/dL (30-55) 04/04/25 19:43 RDW 17.1 % (12.1-15.1) H 04/04/25 19:43 Plt Count 103 10^3/cmm (157-399) L 04/04/25 19:43 MPV 11.4 fL (7.4-10.4) H 04/04/25 19:43 Neut % (Auto) 65.3 % 04/04/25 19:43 Lymph % (Auto) 18.0 % 04/04/25 19:43 Luna % (Auto) 12.0 % 04/04/25 19:43 Eos % (Auto) 3.4 % 04/04/25 19:43 Baso % (Auto) 1.1 % 04/04/25 19:43 Neut # (Auto) 3.04 10^3/uL (1.8-7.7) 04/04/25 19:43 Lymph # (Auto) 0.8 10^3/uL (0.8-4.8) 04/04/25 19:43 Luna # (Auto) 0.6 10^3/uL (0.2-0.9) 04/04/25 19:43 Eos # (Auto) 0.2 10^3/uL (0.0-0.8) 04/04/25 19:43 Baso # (Auto) 0.1 10^3/uL (0.0-0.1) 04/04/25 19:43 Nucleated RBC % (auto) 0 % 04/04/25 19:43 Nucleated RBCs # 0.0 /100WBC 04/04/25 19:43 Sodium 144 mmol/L (136-145) 04/05/25 06:46 Potassium 5.1 mmol/L (3.5-5.1) 04/05/25 06:46 Chloride 100 mmol/L (98-107) 04/05/25 06:46 Carbon Dioxide 22 mmol/L (22-29) 04/05/25 06:46 Anion Gap 27.1 (5-19) H 04/05/25 06:46 BUN 71 mg/dL (6-20) H 04/05/25 06:46 Creatinine 15.0 mg/dL (0.7-1.2) H* 04/05/25 06:46 GFR Calculation 4.0 mL/min (90-130) L 04/05/25 06:46 Glucose 70 mg/dL (65-115) 04/05/25 06:46 Calculated Osmolality 317 mOsm/kg (285-295) H 04/05/25 06:46 Calcium 8.8 mg/dL (8.5-10.5) 04/05/25 06:46 Total Bilirubin 0.2 mg/dL (0.15-1.2) 04/04/25 19:43 AST 10 U/L (0-40) 04/04/25 19:43 ALT 7 U/L (0-41) 04/04/25 19:43 Alkaline Phosphatase 73 U/L (40-130) 04/04/25 19:43 Total Protein 6.8 g/dL (6.6-8.7) 04/04/25 19:43 Albumin 4.6 g/dL (3.5-5.2) 04/04/25 19:43 Globulin 2.2 g/dL (1.3-4.6) 04/04/25 19:43 Salicylates < 0.3 mg/dL (3-10) L 04/04/25 19:43 Acetaminophen < 5.0 ug/mL (10-30) L 04/04/25 19:43 Ethyl Alcohol < 10 mg/dL (0-10) 04/04/25 19:43 Influenza A (PCR) Negative (Negative) 04/04/25 20:05 Influenza Type B (PCR) Negative (Negative) 04/04/25 20:05 RSV (PCR) Negative (Negative) 04/04/25 20:05 SARS-CoV-2 (PCR) Negative (Negative) 04/04/25 20:05 No radiology studies performed this visit Discharge Plan Discharge Patient Disposition: Admitted As Inpatient Clinical Impression: ESRD on dialysis, Suicidal ideation Condition: Stable Coding Level of Care Code ED Non Destructive Evaluation Manager for Loida Menon
--- NOTE | 2025-04-04 19:51 | ECG_ITS ---
[facility] 2025[facility]04 Pat Name: Vance Sainz Department: Room: Gender: Male Home Manager: : [id number] Requested By: Serafin Peña Order Number: [id number] Danisha MD: Nuha Garcia M.D. Measurements Intervals [place] Rate: 71 P: 66 PA: 140 QRS: 42 QRSD: 94 T: 50 QT: 426 QTc: 463 Interpretive Statements SINUS RHYTHM LEFT ATRIAL ENLARGEMENT [-0.15mV P-WAVE IN V1/V2] Compared to ECG 03/07/2025 21:44:02 Atrial abnormality now present Prolonged QT interval no longer present Electronically Signed On 04-06-2025 06:09:23 CDT by Nuha Garcia M.D. [email or web address]
--- NOTE | 2025-04-04 20:01 | PC.NURSE ---
this nurse asked pt for urine. pt states he is a dialysis and kidney pt and he does not produce urine. dr merida notified.
[2025-04-04 20:03] LABS: Basophils # 0.1 10^3/uL (0.0-0.1); Basophils % 1.1 %; Eosinophils # 0.2 10^3/uL (0.0-0.8); Eosinophils % 3.4 %; Hematocrit 34.1 % (37-53); Lymphocytes # 0.8 10^3/uL (0.8-4.8); Mean Corpuscular HGB Conc 32.6 g/dL (30-55); Mean Corpuscular Hemoglobin 31.8 pg (27-33); Mean Corpuscular Volume 97.7 fl (82-101); Mean Platelet Volume 11.4 fL (7.4-10.4); Monocytes # 0.6 10^3/uL (0.2-0.9); Neutrophils # 3.04 10^3/uL (1.8-7.7); Neutrophils % 65.3 %; Nucleated Red Blood Cells % 0 %; Platelet Count 103 10^3/cmm (157-399); Red Blood Count 3.49 10^6/uL (3.85-5.65); Red Cell Distribution Width 17.1 % (12.1-15.1); White Blood Count 4.66 10^3/uL (3.29-11.43)
[2025-04-04 20:21] LABS: Alanine Aminotransferase 7 U/L (0-41); Albumin Level 4.6 g/dL (3.5-5.2); Alkaline Phosphatase 73 U/L (40-130); Anion Gap 25.2 (5-19); Aspartate Amino Transferase 10 U/L (0-40); Blood Urea Nitrogen 68 mg/dL (6-20); Calcium 8.9 mg/dL (8.5-10.5); Carbon Dioxide 22 mmol/L (22-29); Chloride 99 mmol/L (98-107); Creatinine Clr Calc Pharmacy 6.2054; Globulin 2.2 g/dL (1.3-4.6); Glomerular Filtration Rate 4.4 mL/min (90-130); Glucose 83 mg/dL (65-115); Osmolality Calculated 311 mOsm/kg (285-295); Potassium 5.2 mmol/L (3.5-5.1); Sodium 141 mmol/L (136-145); Total Bilirubin 0.2 mg/dL (0.15-1.2); Total Protein 6.8 g/dL (6.6-8.7)
[2025-04-04 20:29] LABS: Acetaminophen < 5.0 ug/mL (10-30); Alcohol Level < 10 mg/dL (0-10); Salicylate < 0.3 mg/dL (3-10)
[2025-04-04 20:51] LABS: Slide Review Slide Review Perform
--- NOTE | 2025-04-04 20:51 | PC.NURSE ---
96 HH Pt served with copy of 96 HH by this RN and security. Pt A&Ox3, pleasant and cooperative at this time. I know what I said, I shouldn't have said that , I've been through this 8 or 9 times already .
[2025-04-04 21:31] LABS: Influenza A NEGATIVE (Negative); Influenza B NEGATIVE (Negative); Respiratory Syncytial Virus Ce NEGATIVE (Negative); SARS-CoV-2 PCR NEGATIVE (Negative)
[2025-04-05] VITALS (9 sets, daily range): BP systolic 157–186; BP diastolic 102–124; PULSE 61–97; RESP 16–20; TEMP 36.5–36.7; O2SAT 97–99
[2025-04-05] MEDS: LORazepam 2 mg Tablet PO ×2 (04:19→09:35)
[2025-04-05] MEDS: labetalol 200 mg Tablet PO ×2 (04:43→18:33)
[2025-04-05] MEDS: losartan 50 mg Tablet 200 MG PO (04:43)
[2025-04-05] MEDS: amlodipine 10 mg Tablet PO (04:43)
[2025-04-05] MEDS: trazodone 50 mg Tablet PO ×2 (04:44→22:31)
[2025-04-05 07:23] LABS: Anion Gap 27.1 (5-19); Blood Urea Nitrogen 71 mg/dL (6-20); Calcium 8.8 mg/dL (8.5-10.5); Carbon Dioxide 22 mmol/L (22-29); Chloride 100 mmol/L (98-107); Glucose 70 mg/dL (65-115); Osmolality Calculated 317 mOsm/kg (285-295); Potassium 5.1 mmol/L (3.5-5.1); Sodium 144 mmol/L (136-145)
--- NOTE | 2025-04-05 11:15 | PM.CONSULT ---
Providers/Reason For Consult Consulting Physician/Specialty*: edison moore Md/ telenephrology Reason for Consult*: ESRD care Requesting Physician: Dr Hawkins and Dr Peña Primary Care Provider: Renetta Cole NP History of Present Illness History of Present Illness Vance Sainz is a 24 year old male history of ESRD status post donor renal transplant that failed in 2023. The patient has been on dialysis for the last year however still has residual renal function. Patient has psychiatric diseases and is on multiple medications. The patient is on dialysis Thursday. Patient missed dialysis on Thursday. The patient stated suicidal ideations injection affect emergency room where he was admitted for 96-hour hold. Renal was called to provide dialysis. Review of Systems Narrative: The patient denies nausea vomiting shortness of breath chest pain headaches itching cramps or diarrhea. No leg pain. The patient states that he gets significant anxiety and needs Benadryl with dialysis. Medications/Allergies Home Medications ?Medication ?Instructions ?Recorded ?Confirmed ?Last Taken ?Type B-complex with vitamin C 1 tab PO DAILY 30 days #30 tabs 08/04/24 04/05/25 09/10/24 Rx divalproex 500 mg tablet,delayed 500 mg PO BID 30 days #60 tabs 08/04/24 04/05/25 09/10/24 Rx release amlodipine 10 mg tablet 10 mg PO DAILY 09/11/24 04/05/25 04/04/25 History labetalol 100 mg tablet 200 mg PO BID 09/11/24 04/05/25 02/12/25 09:00 History vit B,C-folic ac 800 mcg-zinc 12.5 1 tab PO DAILY 09/11/24 04/05/25 09/10/24 History mg-selen-D3 2,000 unit-vit E tablet (RenaPlex-D) clonazepam 1 mg tablet (Klonopin) 1 mg PO BID PRN anxiety #10 tabs 01/09/25 04/05/25 02/12/25 09:00 Rx hydrocodone 5 mg-acetaminophen 325 1 tab PO QID PRN Pain 02/08/25 04/05/25 02/10/25 09:00 History mg tablet levetiracetam 500 mg tablet See Rx Instructions .Route .COMPLEX 02/12/25 04/05/25 02/11/25 09:00 History sevelamer carbonate 800 mg tablet 800 - 1,600 mg PO TID 02/12/25 04/05/25 02/12/25 09:00 History trazodone 50 mg tablet 50 mg PO BEDTIME 02/12/25 04/05/25 01/30/25 21:00 History prednisone 5 mg tablet 5 mg PO DAILY #60 tabs 02/14/25 04/05/25 Unknown Rx hydralazine 100 mg tablet 100 mg PO TID 04/05/25 04/05/25 Unknown History losartan 25 mg tablet 25 mg PO DAILY 04/05/25 04/05/25 Unknown History methocarbamol 500 mg tablet 500 - 1,000 mg PO Q6H PRN Muscle 04/05/25 04/05/25 Unknown History Spasm olanzapine 10 mg tablet 15 mg PO BEDTIME 04/05/25 04/05/25 Unknown History ondansetron 4 mg disintegrating 4 mg PO Q6H PRN Nausea And Vomiting 04/05/25 04/05/25 Unknown History tablet sumatriptan 20 mg/actuation nasal 20 mg intranasal Q12H PRN Migraine 04/05/25 04/05/25 Unknown History spray Headache Allergies Allergy/AdvReac Type Severity Reaction Status Date / Time NSAIDS (Non-Steroidal Allergy Severe unable to Verified 04/04/25 19:07 Anti-Inflamma take due to kidney disease sertraline (From Zoloft) Allergy Unknown Verified 04/04/25 19:07 Current Medications Generic Name Dose Route Start Last Admin Trade Name Freq PRN Reason Stop Dose Admin Losartan Potassium 200 mg 04/05/25 04:45 04/05/25 04:43 Losartan 50 Mg Tablet PO 200 mg ONCE OMAR Administration PFSH Acute PFSH: Medical History Adrenal insufficiency Hypoglycemia CKD (chronic kidney disease) stage V requiring chronic dialysis Generalized anxiety disorder Other stimulant dependence, in remission Problems related to lack of adequate sleep Substance abuse Depression Anxiety Social History Smoking and tobacco/nicotine status: never used tobacco/nicotine Quit status (tobacco/nicotine): has tried quititng Number of times tried to quit tobacco: 4 Second hand smoke exposure: No Vitals/I&O/Wt Last Vital Signs Temp 97.7 F 04/04/25 19:08 Pulse 61 04/05/25 04:10 Resp 18 04/05/25 04:10 BP 182/124 04/05/25 04:43 Pulse Ox 99 04/05/25 04:10 O2 Del Method Room Air 04/05/25 04:10 04/04/25 04/05/25 04/05/25 22:59 06:59 14:59 Intake Total 0 / 0 Balance 0 / 0 Weight last 48 hrs Weight 54.431 kg Physical Exam Narrative: The patient is comfortable in bed no apparent distress. Vital signs noted blood pressure elevated. HEENT normocephalic atraumatic. Neck is supple no JVP no carotid bruits. Lungs are clear to auscultation. Heart is regular without significant rubs or gallops. Abdomen is soft positive bowel sounds. Extremities right upper extremity AV fistula with good thrill and bruit. Legs without significant edema. Neuro awake alert oriented x 3. The patient denies suicidal ideations to me. The patient was seen and examined using audiovisual equipment with the aid of a nurse. Data 04/04/25 19:43 04/05/25 06:46 A&P Assessment and plan (1) ESRD on hemodialysis: 24-year-old gentleman history of ESRD, history of failed donor renal transplant. 1. Hypertension restart outpatient medications take fluid off on dialysis. restart amlodipine and beta hamida 2. ESRD for hemodialysis today. The patient missed dialysis on April 03, 2025. 3 and half hours on a 2K bath, remove 2.5 L. 3. Psychiatry care as needed 4. renal transplant- continue low dose prednisone seen and examined using A/V equipment and TN. pt consents to telehealth and dialysis Plan see above PDMP PDMP Reviewed: Not Reviewed Consult Attestations Medical Necessity Statement: esrd, htn urgency Time Spent in Patient Care: Greater than 35 minutes (>than 50% of time spent in counselling and/or direct pt care on unit). Coding Level of Care Code Acute Code for Chg Fwd Diagnoses ESRD on hemodialysis N18.6; Z99.2
[2025-04-05 12:17] LABS: Hepatitis B Surface AB 57.6 (11.5-1000); Hepatitis B Surface Antigen Non-Reactive (Nonreactive); Hepatitis C Virus Antibody Non-Reactive (Nonreactive)
--- NOTE | 2025-04-05 13:21 | PM.CONSULT ---
Providers/Reason For Consult Consulting Physician/Specialty*: Hospitalist Reason for Consult*: ESRD Primary Care Provider: Renetta Cole NP History of Present Illness History of Present Illness Vance Sainz is a 24 year old male with a history of end-stage renal disease (ESRD) on dialysis, generalized anxiety disorder, depression, substance use disorder, adrenal insufficiency, and seizure disorder. The patient was assessed in the emergency department due to suicidal ideation and making threats to self-harm over the past two days, reportedly triggered by family conflict and recent emotional distress. The patient has been feeling increasingly depressed and angry, missed the last dialysis appointment, and reports extremely high anxiety, especially while hospitalized and unable to contact family. The patient denies current suicidal intent, stating that previous threats were made out of anger and not meant seriously. I said that I was going to stab myself, it was something stupid I said that I did not mean . The patient also reports panic attacks, mild memory problems, and difficulty managing medications without family support. There is a history of substance use, including marijuana use here and there. The patient is currently admitted for further assessment and treatment, with ongoing concerns about blood pressure control and medication management, including seizure and adrenal insufficiency medications. The patient expresses frustration with communication barriers and lack of ability to have family support while hospitalized. My mom usually goes over my medications . Review of Systems Psych: Reports: anxiety and other (Self-harm/suicidal statements) Medications/Allergies Home Medications ?Medication ?Instructions ?Recorded ?Confirmed ?Last Taken ?Type B-complex with vitamin C 1 tab PO DAILY 30 days #30 tabs 08/04/24 04/05/25 09/10/24 Rx divalproex 500 mg tablet,delayed 500 mg PO BID 30 days #60 tabs 08/04/24 04/05/25 09/10/24 Rx release amlodipine 10 mg tablet 10 mg PO DAILY 09/11/24 04/05/25 04/04/25 History labetalol 100 mg tablet 200 mg PO BID 09/11/24 04/05/25 02/12/25 09:00 History vit B,C-folic ac 800 mcg-zinc 12.5 1 tab PO DAILY 09/11/24 04/05/25 09/10/24 History mg-selen-D3 2,000 unit-vit E tablet (RenaPlex-D) clonazepam 1 mg tablet (Klonopin) 1 mg PO BID PRN anxiety #10 tabs 01/09/25 04/05/25 02/12/25 09:00 Rx hydrocodone 5 mg-acetaminophen 325 1 tab PO QID PRN Pain 02/08/25 04/05/25 02/10/25 09:00 History mg tablet levetiracetam 500 mg tablet See Rx Instructions .Route .COMPLEX 02/12/25 04/05/25 02/11/25 09:00 History sevelamer carbonate 800 mg tablet 800 - 1,600 mg PO TID 02/12/25 04/05/25 02/12/25 09:00 History trazodone 50 mg tablet 50 mg PO BEDTIME 02/12/25 04/05/25 01/30/25 21:00 History prednisone 5 mg tablet 5 mg PO DAILY #60 tabs 02/14/25 04/05/25 Unknown Rx hydralazine 100 mg tablet 100 mg PO TID 04/05/25 04/05/25 Unknown History losartan 25 mg tablet 25 mg PO DAILY 04/05/25 04/05/25 Unknown History methocarbamol 500 mg tablet 500 - 1,000 mg PO Q6H PRN Muscle 04/05/25 04/05/25 Unknown History Spasm olanzapine 10 mg tablet 15 mg PO BEDTIME 04/05/25 04/05/25 Unknown History ondansetron 4 mg disintegrating 4 mg PO Q6H PRN Nausea And Vomiting 04/05/25 04/05/25 Unknown History tablet sumatriptan 20 mg/actuation nasal 20 mg intranasal Q12H PRN Migraine 04/05/25 04/05/25 Unknown History spray Headache Allergies Allergy/AdvReac Type Severity Reaction Status Date / Time NSAIDS (Non-Steroidal Allergy Severe unable to Verified 04/04/25 19:07 Anti-Inflamma take due to kidney disease sertraline (From Zoloft) Allergy Unknown Verified 04/04/25 19:07 Current Medications Generic Name Dose Route Start Last Admin Trade Name Freq PRN Reason Stop Dose Admin Losartan Potassium 200 mg 04/05/25 04:45 04/05/25 04:43 Losartan 50 Mg Tablet PO 200 mg ONCE OMAR Administration PFSH Acute PFSH: Medical History Adrenal insufficiency Hypoglycemia CKD (chronic kidney disease) stage V requiring chronic dialysis Generalized anxiety disorder Other stimulant dependence, in remission Problems related to lack of adequate sleep Substance abuse Depression Anxiety Social History (Updated 04/05/25 @ 13:29 by Rocky Colin MD) Smoking and tobacco/nicotine status: never used tobacco/nicotine Quit status (tobacco/nicotine): has tried quititng Number of times tried to quit tobacco: 4 Second hand smoke exposure: No Alcohol intake: never Substance/Drug Use: current Substance/Drug use frequency: Special occassions/opportunity only Substance/Drug use type: Marijuana Vitals/I&O/Wt Last Vital Signs Temp 97.7 F 04/04/25 19:08 Pulse 61 04/05/25 04:10 Resp 18 04/05/25 04:10 BP 182/124 04/05/25 04:43 Pulse Ox 99 04/05/25 04:10 O2 Del Method Room Air 04/05/25 04:10 04/04/25 04/05/25 04/05/25 22:59 06:59 14:59 Intake Total 0 / 0 Balance 0 / 0 Weight last 48 hrs Weight 54.431 kg Physical Exam Narrative: Sitting up in the edge of bed. Const: COMMON NORMALS: patient oriented x3 and alert GENERAL APPEARANCE: cooperative ORIENTATION/CONSCIOUSNESS: Yes awake HENMT: COMMON NORMALS: oropharynx normal Neck/C-Spine: COMMON NORMALS: no JVD Resp: COMMON NORMALS: normal respiratory effort and clear to auscultation bilaterally AUSCULTATION: clear to auscultation bilaterally Cardio: COMMON NORMALS: no JVD, regular rhythm, S1 normal heart sound present, S2 normal heart sound present and No murmurs present (Cardio) RHYTHM: regular rhythm HEART SOUNDS: S1 normal heart sound present and S2 normal heart sound present GI: COMMON NORMALS: Normal to inspection, nondistended, normoactive bowel sounds present, Soft to palpation and non-tender PALPATION: Yes Soft to palpation Extremity: COMMON NORMALS: no joint enlargement and no pedal edema Neuro: COMMON NORMALS: patient oriented x3 and moves all extremities SENSORIUM/ORIENTATION: Yes alert Skin: COMMON NORMALS: no rashes or lesions noted GENERAL SKIN EXAM: no rashes or lesions noted Data 04/04/25 19:43 04/05/25 06:46 A&P Assessment and plan (1) Suicidal ideation: Pending further assessment and management by psychiatry. With threats of self-harm/suicide made to the family. States he is not intending to harm himself, it was just something stupid I said and did not meet . He had been upset and missed dialysis on Thursday, states he was just tired and sleeping and not because of overdosing on Klonopin. His girlfriend recently broke up with him. One-to-one sitter. Pending admission to neuropsychiatric unit. (2) Major depressive disorder, recurrent: With recent stressors. Pending further assessment management by psychiatry. (3) ESRD on dialysis: Nephrology is consulted and managing. He is going to go for dialysis. Continue renal diet/low potassium. Noted mild hyperkalemia. Reviewed vitals, CMP, hepatitis panel, nephrology note. Reviewed ED provider note, discussed with ED provider. (4) Acute anxiety: With history of panic attacks. Received Ativan IV. Further assessment management by psychiatry. (5) Elevated blood pressure reading: Blood pressure was elevated this morning 182/124. Received treatment with amlodipine losartan and labetalol. Requested recheck vitals. Hydralazine labetalol losartan. Monitor blood pressures. (6) Adrenal insufficiency: Continue prednisone. (7) Acute hyperkalemia: Low potassium diet. Plan Seizure disorder: Continue Keppra, valproate. His mother is going to look through medication bottles at his home to see if there have been any changes. PDMP PDMP Reviewed: Not Reviewed Consult Attestations Medical Necessity Statement: Admission over 2 midnights dissipated for assessment management of suicidal ideation and gentleman with underlying ESRD on dialysis. Diagnoses Suicidal ideation R45.851 Major depressive disorder, recurrent F33.9 ESRD on dialysis N18.6; Z99.2 Acute anxiety F41.9 Elevated blood pressure reading R03.0 Adrenal insufficiency E27.40 Acute hyperkalemia E87.5
[2025-04-05] MEDS: LORazepam 1 MG/0.5 ML injection IM (13:35)
--- NOTE | 2025-04-05 15:52 | PC.PHAR ---
Mom states she is not sure if pt should be taking Divalproex 500mg bid, Labetalol 100mg bid, and Levetiracetam 500mg bid. Pt did not do well with olanzapine and it was not picked up at the pharmacy-mom says probably should not be giving it.
[2025-04-05] MEDS: nicotine 2 mg Gum BUCCAL (17:51)
[2025-04-05] MEDS: hyDROXYzine 25 mg Capsule 50 MG PO ×2 (17:51→22:30)
--- NOTE | 2025-04-05 19:12 | PC.NURSE ---
pt off unit for dialysis at this time.
[2025-04-05] MEDS: diphenhydrAMINE 50 mg/mL SDV 1mL 25 MG IVP (19:49)
--- NOTE | 2025-04-05 22:22 | PC.HD ---
With 30 minutes of HD remaining, patient began complaining of feeling lightheaded, with general overall pain and stating he felt like he was starting a panic attack. Savings Counselor notified; ok to terminate treatment early. 2000 mL removed. Primary RN notified.
--- NOTE | 2025-04-05 22:24 | PC.NURSE ---
PATIENT BACK FROM DIALYSIS AT THIS TIME. DIALYSIS NURSE REPORTED THAT PATIENT BECAME VERY ANXIOUS, DR ORTIZ NOTIFIED AND DIALYSIS SESSION TERMINATED 30MINUTES EARLY. NURSES REPORTED 2 LITERS FLUID WAS REMOVED. VITALS OBTAINED AND BEDTIME MEDS GIVEN.
[2025-04-05] MEDS: hyDRALAzine 25 mg Tablet 100 MG PO (22:30)
[2025-04-05] MEDS: levETIRAcetam 500 mg Tablet PO (22:30)
[2025-04-05] MEDS: divalproex DR 500 mg Tablet PO (22:30)
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
[2025-04-06 06:00] VITALS: BP 144/91; PULSE 68; RESP 16; O2SAT 96
[2025-04-06] MEDS: hyDRALAzine 25 mg Tablet 100 MG PO ×2 (08:14→14:53)
[2025-04-06] MEDS: nicotine 4 mg lozenge MUCOUS MEM (08:15)
[2025-04-06] MEDS: divalproex DR 500 mg Tablet PO ×2 (08:15→17:10)
[2025-04-06] MEDS: amlodipine 10 mg Tablet PO (08:15)
[2025-04-06] MEDS: levETIRAcetam 500 mg Tablet PO ×2 (08:15→17:10)
[2025-04-06] MEDS: b-complex-vitamin c Tablet 1 EACH PO (08:18)
[2025-04-06] MEDS: labetalol 200 mg Tablet PO ×2 (08:33→17:10)
[2025-04-06] MEDS: losartan 50 mg Tablet 25 MG PO (08:38)
[2025-04-06 08:51] LABS: Alanine Aminotransferase 7 U/L (0-41); Albumin Level 4.7 g/dL (3.5-5.2); Alkaline Phosphatase 79 U/L (40-130); Anion Gap 20.9 (5-19); Aspartate Amino Transferase 11 U/L (0-40); Blood Urea Nitrogen 33 mg/dL (6-20); Calcium 9.5 mg/dL (8.5-10.5); Carbon Dioxide 26 mmol/L (22-29); Chloride 98 mmol/L (98-107); Creatinine Clr Calc Pharmacy 8.7788; Globulin 2.4 g/dL (1.3-4.6); Glomerular Filtration Rate 6.9 mL/min (90-130); Glucose 74 mg/dL (65-115); Magnesium 2.7 mg/dL (1.7-2.3); Osmolality Calculated 296 mOsm/kg (285-295); Phosphorus 6.2 mg/dL (2.5-4.5); Potassium 4.9 mmol/L (3.5-5.1); Sodium 140 mmol/L (136-145); Total Bilirubin 0.3 mg/dL (0.15-1.2); Total Protein 7.1 g/dL (6.6-8.7)
[2025-04-06 08:57] LABS: Amphetamines Screen Urine Negative (Negative); Barbiturates Screen Urine Negative (Negative); Benzodiazepines Screen Urine Negative (Negative); Cocaine Screen Urine Negative (Negative); Opiate Screen Urine Positive (Negative); PCP Screen Urine Negative (Negative); THC Screen Urine Positive (Negative)
--- NOTE | 2025-04-06 09:16 | PM.PN ---
Subjective Subjective: seen and examined. no n/v/f/c/bro/d. has anxiety. Medications: Reviewed: Yes Medication Review Details: Current Medications Acetaminophen (Acetaminophen 325 Mg Tablet) 650 mg PO Q4H PRN PRN Reason: MILD PAIN Amlodipine Besylate (Amlodipine 10 Mg Tablet) 10 mg PO DAILY [facility] Last Admin: 04/06/25 08:15 Dose: 10 mg Benztropine Mesylate (Benztropine 1 Mg Tablet) 1 mg PO BID PRN PRN Reason: Mild Extrapyramidal symptoms Camphor/Menthol/Phenol (Blistex Lip Oint 7 Gm Tube) 1 applic TOPICAL Q1H PRN PRN Reason: DRYNESS Diphenhydramine HCl (Diphenhydramine 50 Mg/Ml Sdv 1ml) 25 mg IVP PRN PRN PRN Reason: dialysis Last Admin: 04/05/25 19:49 Dose: 25 mg Diphenhydramine HCl (Diphenhydramine 50 Mg/Ml Sdv 1ml) 50 mg IM ONCE PRN PRN Reason: Severe Extrapyramidal Symptoms Diphenhydramine HCl (Diphenhydramine 50 Mg/Ml Sdv 1ml) 50 mg IM Q4H PRN PRN Reason: Severe Aggression Divalproex Sodium (Divalproex Dr 500 Mg Tablet) 500 mg PO BID [facility] Last Admin: 04/06/25 08:15 Dose: 500 mg Haloperidol (Haloperidol 5 Mg Tablet) 5 mg PO Q4H PRN PRN Reason: AGITATION Haloperidol Lactate (Haloperidol Inj 5 Mg/Ml Inj 1 Ml) 5 mg IM Q4H PRN PRN Reason: Severe Aggression Hydralazine HCl (Hydralazine 25 Mg Tablet) 100 mg PO TID [facility] Last Admin: 04/06/25 08:14 Dose: 100 mg Hydroxyzine Pamoate (Hydroxyzine 25 Mg Capsule) 50 mg PO Q6H PRN PRN Reason: ANXIETY Last Admin: 04/05/25 22:30 Dose: 50 mg Labetalol HCl (Labetalol 200 Mg Tablet) 200 mg PO BID [facility] Last Admin: 04/06/25 08:33 Dose: 200 mg Levetiracetam (Levetiracetam 500 Mg Tablet) 500 mg PO BID [facility] Last Admin: 04/06/25 08:15 Dose: 500 mg Loperamide HCl (Loperamide 2 Mg Capsule) 2 mg PO Q6H PRN PRN Reason: DIARRHEA Lorazepam (Lorazepam 1 Mg/0.5 Ml Injection) 2 mg IM Q4H PRN PRN Reason: Severe Aggression Losartan Potassium (Losartan 50 Mg Tablet) 200 mg PO ONCE [facility] Last Admin: 04/05/25 04:43 Dose: 200 mg Losartan Potassium (Losartan 50 Mg Tablet) 25 mg PO DAILY [facility] Last Admin: 04/06/25 08:38 Dose: 25 mg Multivitamins (Y-Vfwsmfm-Tdogiwe C Tablet) 1 each PO DAILY [facility] Last Admin: 04/06/25 08:18 Dose: 1 each Nicotine (Nicotine 21 Mg Patch) 1 patch TRANSDERMA DAILY PRN PRN Reason: NICOTINE WITHDRAWAL Nicotine Polacrilex (Nicotine 2 Mg Gum) 2 mg BUCCAL Q2H PRN PRN Reason: NICOTINE WITHDRAWAL Last Admin: 04/05/25 17:51 Dose: 2 mg Nicotine Polacrilex (Nicotine 4 Mg Lozenge) 4 mg MUCOUS MEM Q2H PRN PRN Reason: NICOTINE CRAVINGS Last Admin: 04/06/25 08:15 Dose: 4 mg Olanzapine (Olanzapine 5 Mg Odt) 5 mg PO Q4H PRN PRN Reason: Agitation/Psychosis Ondansetron HCl (Ondansetron 4 Mg Tablet) 4 mg PO Q6H PRN PRN Reason: NAUSEA AND VOMITING Prednisone (Prednisone 5 Mg Tablet) 5 mg PO DAILY [facility] Trazodone HCl (Trazodone 50 Mg Tablet) 50 mg PO BEDTIME PRN PRN Reason: SLEEP Last Admin: 04/05/25 22:31 Dose: 50 mg Vitals/I&O/Wt Last Vital Signs Temp 97.8 F 04/05/25 22:30 Pulse 68 04/06/25 06:00 Resp 16 04/06/25 06:00 BP 144/91 04/06/25 06:00 Pulse Ox 96 04/06/25 06:00 O2 Del Method Room Air 04/05/25 18:00 04/05/25 04/06/25 04/06/25 22:59 06:59 14:59 Intake Total 300 / 300 Output Total 2300 / 2300 Balance -1999 / -1999 Weight last 48 hrs Weight 49.6 kg Weight 54.431 kg Physical Exam Narrative: The patient is comfortable in bed no apparent distress. Vital signs noted blood pressure elevated but improving. HEENT normocephalic atraumatic. Neck is supple no JVP no carotid bruits. Lungs are clear to auscultation. Heart is regular without significant rubs or gallops. Abdomen is soft positive bowel sounds. Extremities right upper extremity AV fistula with good thrill and bruit. Legs without significant edema. Neuro awake alert oriented x 3. The patient denies suicidal ideations to me. The patient was seen and examined using audiovisual equipment with the aid of a nurse. Data 04/04/25 19:43 04/06/25 08:09 A&P Assessment and plan (1) ESRD on hemodialysis: 24-year-old gentleman history of ESRD, history of failed donor renal transplant. 1. Hypertension -improving on outpatient medications and dialysis 2. ESRD- S/P hemodialysis yesterday. The patient missed dialysis on April 03, 2025. repeat HD tomorrow 3 and half hours on a 2K bath, remove 2 L. 3. Psychiatry care as needed 4. renal transplant- continue low dose prednisone seen and examined using A/V equipment wuth the aide of a nurse. pt consents to telehealth and dialysis Plan see above PDMP PDMP Reviewed: Not Reviewed Attestations Medical Necessity Statement*: per psychiatry Time Spent in Patient Care: 16 - 35 minutes (>than 50% of time spent in counselling and/or direct pt care on unit). Coding Level of Care Code Acute Code for Chg Fwd Diagnoses ESRD on hemodialysis N18.6; Z99.2
--- NOTE | 2025-04-06 10:06 | PC.NURSE ---
Dr. Marroquin informed of critical lab creatnine of 9.4, no new orders given .
[2025-04-06] MEDS: predniSONE 5 mg Tablet PO (10:35)
[2025-04-06] MEDS: sevelamer 800 mg Tablet PO ×2 (10:47→21:13)
[2025-04-06] MEDS: nicotine 2 mg Gum BUCCAL ×2 (12:19→14:56)
[2025-04-06 14:00] VITALS: BP 127/73; PULSE 84; RESP 18; TEMP 36.9; O2SAT 96
[2025-04-06 17:58] LABS: Glucose Point of Care 150 mg/dL (70-110)
[2025-04-06 19:39] LABS: Anion Gap 24.8 (5-19); Blood Urea Nitrogen 44 mg/dL (6-20); Carbon Dioxide 22 mmol/L (22-29); Chloride 98 mmol/L (98-107); Creatinine Clr Calc Pharmacy 7.4343; Glomerular Filtration Rate 5.7 mL/min (90-130); Glucose 99 mg/dL (65-115); Osmolality Calculated 297 mOsm/kg (285-295); Sodium 138 mmol/L (136-145)
[2025-04-06 19:41] VITALS: BP 115/58; PULSE 72; RESP 16; TEMP 36.7; O2SAT 97
[2025-04-06 19:45] LABS: Potassium 6.8 mmol/L (3.5-5.1)
[2025-04-06 20:18] VITALS: PULSE 68
--- NOTE | 2025-04-06 20:18 | ECG_ITS ---
[facility] Test Date: 2025-04-06 Pat Name: Vance Sainz Department: Room: 125 Gender: Male Clod Puller: : 2000 Requested By: Mercedez Montero Order Number: [id number] Danisha MD: Beti Johnson M.D. Measurements Intervals [place] Rate: 68 P: 78 ME: 139 QRS: 77 QRSD: 97 T: 68 QT: 452 QTc: 482 Interpretive Statements SINUS RHYTHM MODERATE T-WAVE ABNORMALITY, CONSIDER ANTERIOR ISCHEMIA [-0.1+ mV T-WAVE IN V3/V4] Compared to ECG 04/04/2025 19:51:04 T-wave abnormality now present Possible ischemia now present Atrial abnormality no longer present Electronically Signed On 04-09-2025 19:31:44 CDT by Beti Johnson M.D. [email or web address]
[2025-04-06] MEDS: ondansetron hcl ODT 4 mg Tab PO (20:40)
[2025-04-06] MEDS: sodium polystyrene sulfonate 15 gm/60 mL Btl 30 GM PO (21:13)
--- NOTE | 2025-04-06 23:27 | PC.NURSE ---
Patient with nausea during nursing assessment. Critical lab values reported to this RN. Dr. Nascimento notified with order received. Patient denies anxiety, depression, SI/HI, AVH. He mostly isolating to his room this evening.
[2025-04-07] MEDS: loperamide 2 mg Capsule PO (01:02)
[2025-04-07 02:10] LABS: Alanine Aminotransferase 6 U/L (0-41); Albumin Level 4.5 g/dL (3.5-5.2); Alkaline Phosphatase 74 U/L (40-130); Anion Gap 24.7 (5-19); Aspartate Amino Transferase 10 U/L (0-40); Blood Urea Nitrogen 44 mg/dL (6-20); Calcium 9.5 mg/dL (8.5-10.5); Carbon Dioxide 25 mmol/L (22-29); Chloride 96 mmol/L (98-107); Creatinine Clr Calc Pharmacy 6.9345; Globulin 2.3 g/dL (1.3-4.6); Glomerular Filtration Rate 5.3 mL/min (90-130); Glucose 77 mg/dL (65-115); Magnesium 2.9 mg/dL (1.7-2.3); Osmolality Calculated 302 mOsm/kg (285-295); Phosphorus 6.6 mg/dL (2.5-4.5); Potassium 4.7 mmol/L (3.5-5.1); Sodium 141 mmol/L (136-145); Total Bilirubin 0.3 mg/dL (0.15-1.2); Total Protein 6.8 g/dL (6.6-8.7)
[2025-04-07 06:00] VITALS: BP 159/97; PULSE 73; RESP 18; O2SAT 95
[2025-04-07] MEDS: OLANZapine 5 mg ODT PO (07:51)
--- NOTE | 2025-04-07 08:47 | PM.PN ---
Subjective Subjective: had pains last night. he feels better after kayexalate. he has anxiety Medications: Reviewed: Yes Medication Review Details: Current Medications Acetaminophen (Acetaminophen 325 Mg Tablet) 650 mg PO Q4H PRN PRN Reason: MILD PAIN Amlodipine Besylate (Amlodipine 10 Mg Tablet) [address] [facility] Last Admin: 04/06/25 08:15 Dose: 10 mg Benztropine Mesylate (Benztropine 1 Mg Tablet) 1 mg PO BID PRN PRN Reason: Mild Extrapyramidal symptoms Camphor/Menthol/Phenol (Blistex Lip Oint 7 Gm Tube) 1 applic TOPICAL Q1H PRN PRN Reason: DRYNESS Diphenhydramine HCl (Diphenhydramine 50 Mg/Ml Sdv 1ml) 50 mg IM ONCE PRN PRN Reason: Severe Extrapyramidal Symptoms Diphenhydramine HCl (Diphenhydramine 50 Mg/Ml Sdv 1ml) 50 mg IM Q4H PRN PRN Reason: Severe Aggression Diphenhydramine HCl (Diphenhydramine 50 Mg/Ml Sdv 1ml) 25 mg IVP DAILY PRN PRN Reason: ITCHING Divalproex Sodium (Divalproex Dr 500 Mg Tablet) [address] [facility] Last Admin: 04/06/25 17:10 Dose: 500 mg Haloperidol (Haloperidol 5 Mg Tablet) 5 mg PO Q4H PRN PRN Reason: AGITATION Haloperidol Lactate (Haloperidol Inj 5 Mg/Ml Inj 1 Ml) 5 mg IM Q4H PRN PRN Reason: Severe Aggression Hydralazine HCl (Hydralazine 25 Mg Tablet) [address] [facility] Last Admin: 04/06/25 20:25 Dose: Not Given Hydroxyzine Pamoate (Hydroxyzine 25 Mg Capsule) 50 mg PO Q6H PRN PRN Reason: ANXIETY Last Admin: 04/05/25 22:30 Dose: 50 mg Labetalol HCl (Labetalol 200 Mg Tablet) [address] [facility] Last Admin: 04/06/25 17:10 Dose: 200 mg Levetiracetam (Levetiracetam 500 Mg Tablet) [address] [facility] Last Admin: 04/06/25 17:10 Dose: 500 mg Loperamide HCl (Loperamide 2 Mg Capsule) 2 mg PO Q6H PRN PRN Reason: DIARRHEA Last Admin: 04/07/25 01:02 Dose: 2 mg Lorazepam (Lorazepam 1 Mg/0.5 Ml Injection) 2 mg IM Q4H PRN PRN Reason: Severe Aggression Losartan Potassium (Losartan 50 Mg Tablet) [address] [facility] Last Admin: 04/05/25 04:43 Dose: 200 mg Losartan Potassium (Losartan 50 Mg Tablet) [address] [facility] Last Admin: 04/06/25 08:38 Dose: 25 mg Multivitamins (S-Riyenfu-Waobevn C Tablet) [address] [facility] Last Admin: 04/06/25 08:18 Dose: 1 each Nicotine (Nicotine 21 Mg Patch) 1 patch TRANSDERMA DAILY PRN PRN Reason: NICOTINE WITHDRAWAL Nicotine Polacrilex (Nicotine 2 Mg Gum) 2 mg BUCCAL Q2H PRN PRN Reason: NICOTINE WITHDRAWAL Last Admin: 04/06/25 14:56 Dose: 2 mg Nicotine Polacrilex (Nicotine 4 Mg Lozenge) 4 mg MUCOUS MEM Q2H PRN PRN Reason: NICOTINE CRAVINGS Last Admin: 04/06/25 08:15 Dose: 4 mg Olanzapine (Olanzapine 5 Mg Odt) 5 mg PO Q4H PRN PRN Reason: Agitation/Psychosis Last Admin: 04/07/25 07:51 Dose: 5 mg Ondansetron HCl (Ondansetron 4 Mg Tablet) 4 mg PO Q6H PRN PRN Reason: NAUSEA AND VOMITING Prednisone (Prednisone 5 Mg Tablet) [address] [facility] Last Admin: 04/06/25 10:35 Dose: 5 mg Sevelamer Carbonate (Sevelamer 800 Mg Tablet) [address] [facility] Last Admin: 04/06/25 21:13 Dose: 800 mg Trazodone HCl (Trazodone 50 Mg Tablet) 50 mg PO BEDTIME PRN PRN Reason: SLEEP Last Admin: 04/05/25 22:31 Dose: 50 mg Vitals/I&O/Wt Last Vital Signs Temp 98.1 F 04/06/25 19:41 Pulse 73 04/07/25 06:00 Resp 18 04/07/25 06:00 BP 159/97 04/07/25 06:00 Pulse Ox 95 04/07/25 06:00 O2 Del Method Room Air 04/06/25 14:00 04/06/25 04/07/25 04/07/25 22:59 06:59 14:59 Intake Total 120 / 120 Balance 120 / 120 Weight last 48 hrs Weight 49.6 kg Physical Exam Narrative: The patient is comfortable in bed no apparent distress. Vital signs noted blood pressure mildly elevated but improving. HEENT normocephalic atraumatic. Neck is supple no JVP no carotid bruits. Lungs are clear to auscultation. Heart is regular without significant rubs or gallops. Abdomen is soft positive bowel sounds. Extremities + arm AV fistula with good thrill and bruit. Legs without significant edema. Neuro awake alert oriented x 3. The patient denies suicidal ideation to me. The patient was seen and examined using audiovisual equipment with the aid of a nurse. Data 04/04/25 19:43 04/07/25 01:23 A&P Assessment and plan (1) ESRD on hemodialysis: 24-year-old gentleman history of ESRD, history of failed donor renal transplant. 1. Hypertension -monitor w/ dialysis, low dose losartan add furosemide 2. ESRD- HD now- 3.4 hr, remove 2.2 l, 2k bath repeat HD tomorrow 3 hyperkalemia- HD and low k diet 4. Psychiatry care as needed 5. renal transplant- continue low dose prednisone seen and examined using A/V equipment wuth the aide of a nurse. pt consents to telehealth and dialysis Plan see above PDMP PDMP Reviewed: Not Reviewed Attestations Medical Necessity Statement*: per psychiatry and ESRD on HD Time Spent in Patient Care: 16 - 35 minutes (>than 50% of time spent in counselling and/or direct pt care on unit). Coding Level of Care Code Acute Code for Chg Fwd Diagnoses ESRD on hemodialysis N18.6; Z99.2
--- NOTE | 2025-04-07 09:04 | PC.NURSE ---
@[id number] pt off unit to med-surg unit for dialysis.
[2025-04-07 09:10] VITALS: BP 163/111; PULSE 84; RESP 16; TEMP 36.8
--- NOTE | 2025-04-07 09:54 | PC.NURSE ---
pulled ivp benadryl 50mg bottle for administration for dialysis.Gave medication to dialysis nurse for administraition of medication
[2025-04-07 12:33] VITALS: BP 171/107; PULSE 91; RESP 16; TEMP 36.7; O2SAT 99
--- NOTE | 2025-04-07 12:39 | PC.NURSE ---
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 PT ALERT AND ORIENTATED X 4 VITAL SIGNS TAKEN WNL.
[2025-04-07] MEDS: sevelamer 800 mg Tablet PO (12:50)
[2025-04-07] MEDS: levETIRAcetam 500 mg Tablet PO ×2 (12:50→17:20)
[2025-04-07] MEDS: labetalol 200 mg Tablet PO ×2 (12:50→17:20)
[2025-04-07] MEDS: amlodipine 10 mg Tablet PO (12:51)
[2025-04-07] MEDS: divalproex DR 500 mg Tablet PO ×2 (12:51→17:20)
[2025-04-07] MEDS: hyDRALAzine 25 mg Tablet 100 MG PO (12:51)
[2025-04-07] MEDS: nicotine 2 mg Gum BUCCAL ×2 (12:51→17:20)
[2025-04-07 12:52] VITALS: BP 171/107
[2025-04-07] MEDS: b-complex-vitamin c Tablet 1 EACH PO (12:52)
[2025-04-07] MEDS: predniSONE 5 mg Tablet PO (12:52)
[2025-04-07] MEDS: losartan 50 mg Tablet 25 MG PO (12:52)
--- NOTE | 2025-04-07 14:02 | DCPLANNER ---
IMM completed 04/07/2025 @ 0357 and pt was given a copy of rights.
[2025-04-07 17:47] VITALS: BP 164/109; PULSE 84; RESP 16; TEMP 36.8
[2025-04-07] MEDS: hyDROXYzine 25 mg Capsule 50 MG PO (19:17)
[2025-04-07 19:32] VITALS: BP 153/101; PULSE 77; RESP 18; TEMP 36.9; O2SAT 99
== END 2025-04-07 19:50 | disposition home or self-care (01) | DRG 885 ==
LOC: ER 04-05 11:47 → NP 04-05 15:28
PROVIDERS: Internal Medicine Nephrology; Admitting Provider Psychiatry & Neurology Psychiatry; Emergency Provider Emergency Medicine; PCP Nurse Practitioner Family; Visit Provider Psychiatry & Neurology Psychiatry
DX: F33.9 Major depressive disorder, recurrent, unspecified (principal); N18.6 End stage renal disease; R45.851 Suicidal ideations; Z94.0 Kidney transplant status; E27.40 Unspecified adrenocortical insufficiency; F15.21 Other stimulant dependence, in remission; F41.9 Anxiety disorder, unspecified; Z99.2 Dependence on renal dialysis; Z62.820 Parent-biological child conflict; F43.10 Post-traumatic stress disorder, unspecified; Z91.158 Patient's noncompliance with renal dialysis for other reason; E87.5 Hyperkalemia; G40.909 Epilepsy, unspecified, not intractable, without status epilepticus; R03.0 Elevated blood-pressure reading, without diagnosis of hypertension
CPT/HCPCS: 36415; 36416; 80048; 80053; 80306; 80307; 82962; 83735; 84100; 85025; 86706; 86803; 87340; 87637; 90935; 93005; 96372; 97150; 97165; 99285; J1200; J2060; J7512; J9999; Q0162

== ENCOUNTER 2025-04-11 20:27 | Inpatient (IN) | payer MEDICARE, MEDICAID, SELFPAY ==
[2025-04-11 20:33] VITALS: BP 234/135; PULSE 69; RESP 17; TEMP 36.8; O2SAT 99; BMI 17.9
--- OUTSIDE RECORDS SUMMARY | 2025-04-11 20:33 | XMS_ITS | Clinical Summary ---
Author Organization [facility] Address [address] [place] [address] Phone Care Team Providers Care Card Brusher Name Role Phone Unavailable Primary Care Provider Unavailabl e Allergies Active Allergy Reactions Criticality Noted Date Comments Nsaids (Non-Steroidal Anti-Inflammatory Drug) Unknown 06/24/2023 Remdesivir Other (See Comments) 07/22/2023 Pt doesnot want to take Sertraline Other (See Comments) Medium 09/14/2019 Causes suicidal thoughts. Medications predniSONE (DELTASONE) 5 mg tablet Take 5 mg by mouth daily. 05/19/20 23 Active calcitRIOL (ROCALTROL) 0.25 mcg capsule Take 0.75 mcg by mouth daily. Post dialysis 01/10/20 25 026 Active clonazePAM (KlonoPIN) 1 mg tablet Take 1 mg by mouth see administration instructions. Just on dialysis days 3x a week 02/01/20 25 Active levETIRAcetam (Keppra) 500 mg tablet Take 1 Tablet (500 mg) by mouth 2 times daily. If you have dilaysis before 9 AM, please wait to take your morning dose of Keppra until after dialysis. 60 Tablet 1 02/03/20 25 Active amLODIPine (NORVASC) 10 mg tablet Take 1 Tablet (10 mg) by mouth daily. 30 Tablet 2 02/04/20 25 Active hydrALAZINE (APRESOLINE) 50 mg tablet Take 1 Tablet (50 mg) by mouth every 8 hours. Take an additional dose every 6 hours prn if SBP > 160, DBP >100. 90 Tablet 2 04/18/20 25 Active labetaloL (NORMODYNE) 100 mg tablet Take 1 Tablet (100 mg) by mouth 2 times daily. 60 Tablet 2 02/04/20 Active losartan (COZAAR) 25 mg tablet Take 1 Tablet (25 mg) by mouth daily. 30 Tablet 2 02/04/20 Active HYDROcodone-acetam inophen (NORCO) 5-325 mg tabletIndications: PRES (posterior reversible encephalopathy syndrome) Take 1 Tablet by mouth every 6 hours as needed for Pain, Severe. Max Daily Amount: 4 Tablets 12 Tablet 6:53 PM CDT 02/04/20 Active Active Problems Problem Noted Date Diagnosed Date Cannabis use disorder 02/02/2025 Seizure disorder 01/31/2025 PRES (posterior reversible encephalopathy syndro me) 01/31/2025 Hypertensive emergency 01/31/2025 ESRD (end stage renal disease) 01/31/2025 History of renal transplant 01/31/2025 Seizure 01/31/2025 Encounters Date Type Department Care Team Description 03/14/2025 External Device Data [facility] Provider, Abstract 03/09/2025 External Device Data [facility] Provider, Abstract 03/09/2025 External Device Data [facility] Provider, Abstract 03/08/2025 External Device Data [facility] Provider, Abstract 02/21/2025 External Device Data [facility] Provider, Abstract 02/14/2025 External Device Data [facility] Provider, Abstract 02/14/2025 External Device Data [facility] Provider, Abstract 02/12/2025 - 02/12/2025 11:59 PM CDT Hospital Encounter [facility] Emergency Medical Services [address] [phone] [facility] Discharge Disposition: [facility] 02/10/2025 8:36 PM CDT - 02/10/2025 8:49 PM CDT Emergency [facility] Emergency Department [address] [place] [phone] Discharge Disposition: Left Against Medical Advice 02/10/2025 - 02/10/2025 11:59 PM CDT Hospital Encounter [facility] Emergency Medical Services [address] [phone] [facility]position: [facility] 02/10/2025 Travel 02/07/2025 External Device Data [facility] Provider, Abstract 02/07/2025 External Device Data [facility] Provider, Abstract 02/07/2025 External Device Data [facility] Provider, Abstract 01/31/2025 9:33 AM CDT - 02/03/2025 6:43 PM CDT Hospital Encounter [facility] Neurology [address] [place] [address] Baljeet Gallardo MD Samavedam, Sandhya, MD Nemargommula, Swetha, MD Dhakal, Prabin, MD PRES (posterior reversible encephalopathy syndrome) Discharge Disposition: Home or Self Care 01/31/2025 Travel 01/09/2025 - 01/09/2025 11:59 PM CDT Hospital Encounter [facility] Emergency Medical Services [facility] [address] [place] [address] [facility] Discharge Disposition: [facility] from Last 3 Months Immunizations Immunization Administration Dates Next Due (ACTHIB/HIBERIX)(2 MOS-5 YRS /6 WKS-4 YRS) HAEMOPHILUS INFLUENZAE TYPE B VACCINE (HIB), PRP-T CONJUGATE, 4 DOSE, 0.5 ML IM 12/09/2001,03/18/2001,2000,11/26,2000 (ADACEL/BOOSTRIX)(10 YR UP) TDAP VACCINE, 0.5ML, IM 07/27/2017 (GARDASIL 9)(9-45 YRS) HUMAN PAPILLOMAVIRUS VACCINE, TYPES 6, 11, 16, 18, 31, 33, 45, 52, 58, NONAVALENT (9VHPV), 2 OR 3 DOSE, IM 09/17/2018,07/27/2017,05/19/2017 (HAVRIX/VAQTA)(12 MO-18 YRS) HEPATITIS A VACCINE 0.5 ML PED/ADOL 2 DOSE, IM 02/05/2011,07/31/2010 (INFANRIX)(6 WKS-6 YRS) DIPT HERIA, TETANUS TOXOIDS, AND ACCELLULAR PERTUSSIS VACCINE (DTAP), 0.5 ML IM 02/28/2005,12/09/2001,03/18/2001,11/26,2000 (IPOL)(6 WKS AND UP) POLIOVI NANCY VACCINE, INACTIVATED (IPV), 3 DOSE, SUBCUT OR IM 03/18/2005,02/28/2005,03/18/2001,12/16,2000,2000 (M-M-R II/PRIORIX)(12 MO UP) MEASLES, MUMPS AND RUBELLA VIRUS VACCINE, 0.5 ML IM/SUBCUT 02/28/2005,09/14/2001 (MENACTRA)(9 MO-55 YR) MENIN GOCOCCAL POLYSACCHARIDE A, C, Y AND W-135 DIPTHERIA TOXOID CONJUGATE VACCINE, (PF), 0.5ML, IM 12/30/2016,09/06/2010 (PNEUMOVAX 23)(50 YRS UP) PN EUMOCOCCAL POLYSACCHARIDE (PPV23) 0.5 ML, IM 12/14/2023,08/30/2010 (PREVNAR 13)(6 WKS UP) PNEUM OCOCCAL CONJUGATE (PCV13) 0.5 ML, IM 07/27/2017 (PREVNAR 20)(6 WKS UP) PNEUM OCOCCAL CONJUGATE VACCINE 20-VALENT (PCV20), POLYSACCHARIDE [id number] CONJUGATE, ADJUVANT 0.5 ML (PF) IM 12/14/2024 (RECOMBIVAX HB/ENGERIX-B)(0- 19 YRS) HEPATITIS B VACCINE 5 MCG/0.5 ML OR 10 MCG/0.5 ML PED OR ADOL 3 DOSE (PF), IM 05/18/2001,2000,2000,09/16 (VARIVAX)(12 MOS UP)VARICELL A VIRUS VACCINE (PF) 0.5 ML, SUB CUT 09/14/2001 INFLUENZA VACCINE QUADRIVALE NT 6 MOS UP PF IM 09/19/2020,09/15/2019,09/17/2018,07/27,07/29/2016,08/16/2015,07/25/2014 Influenza Seasonal Unspecifi ed Formulation IM 07/16/2012 Influenza Virus Vaccine, Spl it Virus (Incl. Purified Surface antigen)-retired CODE 07/11/2009 Influenza, Unspecified Formulation 08/16,07/16/2012,08/05/2011,08/19,09/21/2003 Pneumococcal 7-valent conjug ate vaccine IM 09/21/2003 Social History Tobacco Use Types Packs/Day Years Used Date Smoking Tobacco: Never Smokeless Tobacco: Former Chew Alcohol Use Standard Drinks/Week Comments Never 0 (1 standard drink = 0.6 oz pur e alcohol) Feeling Safe Answer Date Recorded Are you in a relationship wi th someone who hurts you emotionally and/or physically? 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 Gender Identity Not on file Sexual Orientation Not on file Last Filed Vital Signs Vital Sign Reading Time Taken Comments Blood Pressure 148/97 02/10/2025 5:26 PM CDT Pulse 80 02/10/2025 5:26 PM CDT Temperature 36.4 C (97.5 F) 02/10/2025 5:26 PM CDT Respiratory Rate 18 02/10/2025 5:26 PM CDT Oxygen Saturation 96% 02/10/2025 5:26 PM CDT Inhaled Oxygen Concentration - - Weight 48.9 kg (107 lb 12.9 oz) 02/02/2025 6:00 AM CDT Height 157.5 cm (5' 2 ) 02/10/2025 5:26 PM CDT Body Mass Index 19.72 01/31/2025 1:05 PM CDT Plan of Treatment Health Maintenance Due Date Last Done Comments INFLUENZA VACCINE (#1) 2024 , 09/15/2019, 09/17/2018, Additional history exists DTAP/TDAP/TD VACCINES (7 - T d or Tdap) 07/27/2027 07/27/2017, 02/28/2005, 12/09/2001, Additional history exists HEPATITIS B VACCINES Completed 05/18/2001, 2000, 2000, Additional history exists HPV VACCINES Completed 09/17/2018, 06/2017, 05/19/2017 Procedures Procedure Name Priority Date/Time Associated Diagnosis Comments BASIC METABOLIC PANEL Stat 02/10/2025 6:20 PM CDT CBC WITH DIFFERENTIAL Stat 02/10/2025 6:20 PM CDT TELEMETRY REPORT 02/07/2025 3:10 AM CDT HEMODIALYSIS Routine 02/03/2025 1:45 PM CDT BASIC METABOLIC PANEL Routine 02/03/2025 10:27 AM CDT CBC WITH DIFFERENTIAL Routine 02/03/2025 10:27 AM CDT POC GLUCOSE Routine 02/03/2025 7:47 AM CDT POC GLUCOSE Routine 02/03/2025 5:00 AM CDT POC GLUCOSE Routine 02/03/2025 12:11 AM CDT POC GLUCOSE Routine 02/02/2025 9:32 PM CDT POC GLUCOSE Routine 02/02/2025 5:03 PM CDT POC GLUCOSE Routine 02/02/2025 11:10 AM CDT POC GLUCOSE Routine 02/02/2025 8:05 AM CDT BASIC METABOLIC PANEL Routine 02/02/2025 4:18 AM CDT CBC WITH DIFFERENTIAL Routine 02/02/2025 4:18 AM CDT POC GLUCOSE Routine 02/02/2025 4:17 AM CDT POC GLUCOSE Routine 02/01/2025 11:11 PM CDT MRI BRAIN WO CONTRAST Routine 02/01/2025 10:53 PM CDT POC GLUCOSE Routine 02/01/2025 8:47 PM CDT POC GLUCOSE Routine 02/01/2025 6:18 PM CDT BASIC METABOLIC PANEL Routine 02/01/2025 4:17 PM CDT POC GLUCOSE Routine 02/01/2025 12:43 PM CDT CBC WITH DIFFERENTIAL Routine 02/01/2025 10:31 AM CDT POC GLUCOSE Routine 02/01/2025 9:22 AM CDT EEG VIDEO MONITORING Stat 02/01/2025 7:34 AM CDT EEG VIDEO MONITORING Routine 02/01/2025 7:00 AM CDT POC GLUCOSE Routine 01/31/2025 11:53 PM CDT POC GLUCOSE Routine 01/31/2025 8:11 PM CDT POC GLUCOSE Routine 01/31/2025 4:59 PM CDT LACTIC ACID Stat 01/31/2025 4:[address] CERVICAL SPINE WO CONTRAST Stat 01/31/2025 1:[address] HEAD WO CONTRAST Stat 01/31/2025 1 :33 PM CDT EKG 12-LEAD Stat 01/31/2025 12:16 PM CDT URINALYSIS W/REFLEX MICROSCOPIC Stat 01/31/2025 10:40 AM CDT DRUG SCREEN, URINE Stat 01/31/2025 10 :40 AM CDT BLOOD GAS ARTERIAL Stat 01/31/2025 10 :27 AM CDT CK Stat 01/31/2025 9:47 AM CDT ACETAMINOPHEN LEVEL Stat 01/31/2025 9 :47 AM CDT SALICYLATE LEVEL Stat 01/31/2025 9:47 AM CDT ETHANOL LEVEL Stat 01/31/2025 9:47 AM CDT COMPREHENSIVE METABOLIC PANEL Stat 01/31/2025 9:47 AM CDT PTT Stat 01/31/2025 9:47 AM CDT PROTIME-INR Stat 01/31/2025 9:47 AM CDT CBC WITH DIFFERENTIAL Stat 01/31/2025 9:47 AM CDT CRITICAL CARE Routine 01/31/2025 9:33 AM CDT from Last 3 Months Results * (ABNORMAL) CBC WITH DIFFERENTIAL (02/10/2025 6:20 PM CDT) Only the most recent of5 resultswithin the time period is included. [facility] WBC 5.5 4.5 - 11.0 K/uL 02/10/2025 6:55 PM CDT [facility] RBC 2.77(L) 4.60 - 6.20 M/uL 02/10/2025 6:[address] [facility] HEMOGLOBIN 8.8(L) 14.0 - 18.0 g/dL 02/10/2025 6:[address] [facility] HEMATOCRIT 27.1(L) 41.0 - 53.0 % 02/10/2025 6:[address] [facility] MCV 97.8 84.0 - 103.0 fL 02/10/2025 6:[address] [facility] MCH 31.8 27.0 - 34.0 pg 02/10/2025 6:55 PM [facility] MCHC 32.5 30.0 - 35.0 g/dL 02/10/2025 6:55 PM [facility] PLATELETS 132(L) 140 - 440 K/uL 02/10/2025 6:55 PM [facility] MPV 10.2 8.9 - 12.8 fL 02/10/2025 6:[address] [facility] RDW 15.7(H) 11.0 - 14.5 % 02/10/2025 6:55 PM [facility] RDW-STDEV 57.1(H) 37.0 - 54.0 fL 02/10/2025 6:55 PM [facility] NEUTROPHILS 71 42 - 75 % 02/10/2025 6:55 PM [facility] LYMPHOCYTES 9(L) 24 - 44 % 02/10/2025 6:55 PM [facility] MONOCYTES 15(H) 2 - 10 % 02/10/2025 6:55 PM [facility] EOSINOPHILS 4 0 - 7 % 02/10/2025 6:55 PM [facility] BASOPHILS 1 0 - 1 % 02/10/2025 6:55 PM [facility] IMMATURE GRANULOCYTES 0 0 - 2 % 02/10/2025 6:55 PM [facility] NEUTROPHIL ABSOLUTE 3.87 2.00 - 8.00 K/uL 02/10/2025 6:55 PM [facility] LYMPHOCYTE ABSOLUTE 0.50(L) 1.20 - 4.00 K/uL 02/10/2025 6:55 PM [facility] MONOCYTE ABSOLUTE 0.81(H) 0.10 - 0.60 K/uL 02/10/2025 6:55 PM [facility] EOSINOPHIL ABSOLUTE 0.24 0.00 - 0.70 K/uL 02/10/2025 6:55 PM [facility] BASOPHILS ABSOLUTE 0.04 0.00 - 0.20 K/uL 02/10/2025 6:[address] [facility] IMMATURE GRANULOCYTES ABSOLUTE 0.02 0.00 - 0.10 K/uL 02/10/2025 6:[address] [facility] SMEAR REVIEWED: NN - No Action Needed 02/10/2025 6:[address] [facility] Blood Venipuncture / Unknown 02/10/2025 6:20 PM CDT 02/10/2025 6:34 PM CDT Asa Sebastianjulia Carey [employer] HEMATOLOGY ORDERABLES Final Result [facility] CLIA # [id number] [address] [place] [id number] * (ABNORMAL) BASIC METABOLIC PANEL (02/10/2025 6:20 PM CDT) Only the most recent of4 resultswithin the time period is included. SODIUM 142 136 - 145 mmol/L 02/10/2025 7:07 PM [facility] POTASSIUM 5.1 3.5 - 5.1 mmol/L 02/10/2025 7:07 PM [facility] CHLORIDE 99 98 - 107 mmol/L 02/10/2025 7:07 PM [facility] CO2 27 22 - 29 mmol/L 02/10/2025 7:[address] [facility] CALCIUM 8.9 8.6 - 10.0 mg/dL 02/10/2025 7:07 PM [facility] BUN 30(H) 6 - 20 mg/dL 02/10/2025 7:07 PM [facility] CREATININE 6.42(H) 0.67 - 1.17 mg/dL 02/10/2025 7:07 PM [facility] GLUCOSE 85 74 - 99 mg/dL 02/10/2025 7:07 PM [facility] GFR 12(L) >=60 mL/min/1. 73 sq meter 02/10/2025 7:[address] [facility] Comment:eGFR calculated with 2020 CKD-EPI equation. Vegetarian diet, extremely high or low muscle mass, and may affect results. Cystatin C with Glomerular Filtration Rate is a suitable alternative for these patients. ANION GAP 16 9 - 20 mmol/L 02/10/2025 7:[address] [facility] Blood Venipuncture / Unknown 02/10/2025 6:20 PM CDT 02/10/2025 6:35 PM CDT Stan Carey [employer] CHEMISTRY ORDERABLES Final R esult [facility] CLIA # [id number] [address] [place] [id number] * TELEMETRY REPORT (02/07/2025 3:10 AM CDT) us Provider Scanning ECG ORDERABLES Final Result * HEMODIALYSIS (02/03/2025 1:45 PM CDT) Narrative Pily Rae MD - 02/03/2025 1:45 PM CDT Pily Rae MD 02/03/2025 1:59 PM [facility] - Procedure Note Primary Organisation And Methods Analyst: Dr. Shahriar Byers PROCEDURE: Intermittent Hemodialysis INDICATION: end stage renal disease Procedure: Utilizing the patient's arteriovenous fistula as a vascular access, the patient was initiated on hemodialysis. Dialysis is planned for 4 hours. Blood flow of 400 ml per minute and Dialysate flow of 600 ml per minute were prescribed. The bath used was 2 mEq/L potassium, 3 mEq/L calcium, 140 mEq/L sodium and 35 mEq/L bicarbonate. UF goal: 4L, BP stable. Revaclear 400 hollow fiber dialyzer was used. heparin was used for anticoagulation. No complications have been encountered to this point. I was present during dialysis, and was available for the entirety of the dialysis treatment. # Compliant with frequency and duration of dialysis: no Physical Exam: BP (!) 161/110 (BP Location: Left arm, Patient Position (BP): Supine) Pulse 75 Temp 97.7 F (36.5 C) Resp 20 Ht 5' 2 (1.575 m) Wt 48.9 kg (107 lb 12.9 oz) SpO2 99% BMI 19.72 kg/m States going home today Assesment and Plan: ESRD: on HD per his MWF outpatient schedule. Will see on HD days while inpatient. Anemia of chronic kidney disease: hgb at goal Hypertension: admitted with PRES, non compliant with medications outpatient. On amlodipine, labetalol, hydralazine - added losartan 25 mg daily. Ultrafiltration with hemodialysis today Pedro Parrish NP [facility] 02/03/25, 1:45 PM Elida Barth NP DIALYSIS ORDERABLES Final Result * (ABNORMAL) POC GLUCOSE (02/03/2025 7:47 AM CDT) Only the most recent of16 resultswithin the time period is included. GLUCOSE POC 133(H) 74 - 99 mg/dL 02/03/2025 7:47 AM CDT [facility] SPECIMEN SOURCE, GLUCOSE POC Capillary 02/03/2025 7:47 AM CDT [facility] Blood, whole 02/03/2025 7:47 AM CDT 02/03/2025 8:13 AM CDT Volodymyr Harrell MD POINT OF CARE TESTING Final Res ult [facility] CLIA # [id number] [address] [place] [address] [place] [address] * MRI BRAIN WO CONTRAST (02/01/2025 10:53 PM CDT) Anatomical Region Laterality Modality Head Magnetic Resonan ce 02/01/2025 10:5 3 PM CDT Impressions 02/02/2025 7:35 AM CDT IMPRESSION: MR findings most suggestive of PRES. Cortical and left cerebellar diffusion restriction abnormality can be seen in the setting of seizure. Differential diagnosis does include infectious/inflammatory etiologies and other white matter disease. Seizure specific sequences are motion degraded and nondiagnostic. Given the patient's history of renal transplant and recreational drug use, recommend a follow-up brain MRI with and without contrast to ensure resolution of findings. Narrative 02/02/2025 7:35 AM CDT EXAM: MRI BRAIN WO CONTRAST DATE/TIME OF EXAM: 02/01/2025 10:53 PM REASON FOR STUDY: PRES DIAGNOSIS: Seizure (CMS/HCC) COMPARISON: None TECHNIQUE: Multiplanar, multisequence MR imaging was performed of the brain without contrast. FINDINGS: BRAIN PARENCHYMA: There is T2/FLAIR signal abnormality with cortical and subcortical edema predominantly within a posterior distribution, but also involving the frontal and parietal lobes, in a watershed distribution, and bilateral cerebellar hemispheres. The DWI sequence demonstrates cortical diffusion abnormality involving the bilateral frontal lobes, posterior parietal lobes and occipital lobes, and left cerebellum with ADC values similar to slightly decreased compared to agree matter and FLAIR signal change in these locations. Seizure specific sequences are motion degraded and nondiagnostic. No acute infarct. A few patchy areas of remote microhemorrhage are noted in the right occipital lobe, and in the bilateral frontal and parietal lobes. No recent parenchymal hemorrhage. No midline shift. No cerebellar tonsillar herniation. VENTRICLES/EXTRA-AXIAL SPACES: No hydrocephalus. No abnormal extra-axial fluid collection. MAJOR ARTERIAL T2 FLOW VOIDS: Intact. EXTRACRANIAL STRUCTURES: No mastoid effusion. No paranasal sinus fluid level. Orbits are grossly unremarkable, within study sensitivity. Procedure Note Romy Gerardo MD - 02/02/2025 EXAM: MRI BRAIN WO CONTRAST DATE/TIME OF EXAM: 02/01/2025 10:53 PM REASON FOR STUDY: PRES DIAGNOSIS: Seizure (CMS/HCC) COMPARISON: None TECHNIQUE: Multiplanar, multisequence MR imaging was performed of the brain without contrast. FINDINGS: BRAIN PARENCHYMA: There is T2/FLAIR signal abnormality with cortical and subcortical edema predominantly within a posterior distribution, but also involving the frontal and parietal lobes, in a watershed distribution, and bilateral cerebellar hemispheres. The DWI sequence demonstrates cortical diffusion abnormality involving the bilateral frontal lobes, posterior parietal lobes and occipital lobes, and left cerebellum with ADC values similar to slightly decreased compared to agree matter and FLAIR signal change in these locations. Seizure specific sequences are motion degraded and nondiagnostic. No acute infarct. A few patchy areas of remote microhemorrhage are noted in the right occipital lobe, and in the bilateral frontal and parietal lobes. No recent parenchymal hemorrhage. No midline shift. No cerebellar tonsillar herniation. VENTRICLES/EXTRA-AXIAL SPACES: No hydrocephalus. No abnormal extra-axial fluid collection. MAJOR ARTERIAL T2 FLOW VOIDS: Intact. EXTRACRANIAL STRUCTURES: No mastoid effusion. No paranasal sinus fluid level. Orbits are grossly unremarkable, within study sensitivity. IMPRESSION: MR findings most suggestive of PRES. Cortical and left cerebellar diffusion restriction abnormality can be seen in the setting of seizure. Differential diagnosis does include infectious/inflammatory etiologies and other white matter disease. Seizure specific sequences are motion degraded and nondiagnostic. Given the patient's history of renal transplant and recreational drug use, recommend a follow-up brain MRI with and without contrast to ensure resolution of findings. us Sandi Valdivia NP MR ORDERABLES Final Resul t * EEG VIDEO MONITORING (02/01/2025 7:34 AM CDT) Narrative Manny Frost MD - 02/01/2025 7:34 AM CDT Manny Frost MD 02/01/2025 7:41 AM [facility] CONTINUOUS ELECTROENCEPHALOGRAM (EEG) REPORT Patient Name: Vance Campbell Patient Patient : 2000 Patient Age: 24 y.o. Patient gender: male Ordering provider: Kay Garcia MD Date(s) of Service: START TIME: 01/31/25 155 END TIME: 02/01/25 0736 Type of study: Continuous 24 hr Video EEG Monitoring Report Reason for study/diagnosis: 24 y.o. male with seizure. EEG was performed to evaluate for seizures. Current medications: Current Facility-Administered Medications: [COMPLETED] LORazepam (ATIVAN) 2 mg/mL injection 2 mg, 2 mg, IV, ONE time only, Baljeet Gallardo MD, 2 mg at 01/31/25 1005 [COMPLETED] levETIRAcetam (KEPPRA) 500 mg/5 mL injection 1,000 mg, 1,000 mg, IV, ONE time only, Baljeet Gallardo MD, 1,000 mg at 01/31/25 1033 [COMPLETED] ondansetron (ZOFRAN) 4 mg/2 mL injection 4 mg, 4 mg, IV, ONE time only, Baljeet Gallardo MD, 4 mg at 01/31/25 1207 [COMPLETED] morphine 4 mg/mL injection 4 mg, 4 mg, IV, ONE time only, Baljeet Gallardo MD, 4 mg at 01/31/25 1259 calcitRIOL (ROCALTROL) capsule 0.75 mcg, 0.75 mcg, Oral, daily, Luke Seals MD niCARdipine (CARDENE) 25 mg in sodium chloride 0.9 % 250 mL infusion, 0-15 mg/hr, IV, titrate, Baljeet Gallardo MD, Last Rate: 50 mL/hr at 01/31/25 1434, 5 mg/hr at 01/31/25 1434 [START ON 02/01/2025] predniSONE (DELTASONE) tablet 5 mg, 5 mg, Oral, daily WITH breakfast, Luke Seals MD labetaloL (NORMODYNE) tablet 200 mg, 200 mg, Oral, BID, Kay Garcia MD levETIRAcetam (KEPPRA) 500 mg/5 mL injection 500 mg, 500 mg, IV, BID, Kay Garcia MD naloxone (NARCAN) 0.4 mg/mL injection 0.1-0.4 mg, 0.1-0.4 mg, IV, see admin instructions, Kay Garcia MD replacement reminder - Potassium, 1 Each, See Admin Instructions, see admin instructions, Kay Garcia MD replacement reminder-Magnesium, 1 Each, See Admin Instructions, see admin instructions, Kay Garcia MD replacement reminder - Phosphorus, 1 Each, See Admin Instructions, see admin instructions, Kay Garcia MD replacement reminder-Calcium, 1 Each, See Admin Instructions, see admin instructions, Kay Garcia MD acetaminophen (TYLENOL) tablet 650 mg, 650 mg, Oral, every 6 hours PRN, Kay aGrcia MD famotidine (PEPCID) tablet 20 mg, 20 mg, Oral, BID, Kay Garcia MD dextrose 5 % - sodium chloride 0.9 % infusion, , IV, see admin instructions, Kay Garcia MD dextrose 50% (D50) syringe 12.5 Gram, 12.5 Gram, IV, see admin instructions, Kay Garcia MD dextrose 50% (D50) syringe 25 Gram, 25 Gram, IV, see admin instructions, Kay Garcia MD glucagon HCL 1 mg/mL injection 1 mg, 1 mg, IM, see admin instructions, Kay Garcia MD insulin lispro (HumaLOG,ADMELOG) injection 0-12 Units, 0-12 Units, subCUT, every 4 hours, Kay Garcia MD amLODIPine (NORVASC) tablet 10 mg, 10 mg, Oral, daily BEDTIME, Kay Garcia MD [DISCONTINUED] MIDAZOLAM (PF) 1 MG/ML INJECTION SOLUTION (CABINET OVERRIDE), , , , [DISCONTINUED] amLODIPine (NORVASC) 1 mg/mL oral suspension compound 10 mg, 10 mg, Oral, daily BEDTIME, Kay Garcia MD TECHNICAL SUMMARY: Prolonged video monitoring EEG study performed with electrodes placed according to the International 10-20 system. ARTIFACTS: yes INTERRUPTIONS: none EEG DETAILS: The patient's video portion was simultaneously reviewed as appropriate with the patient's EEG recording. EEG BACKGROUND: Posterior dominant rhythm: absent Continuity: continuous Predominant background frequencies: diffuse delta with overriding faster frequencies and generalized rhythmic delta Reactivity: unclear Variability: present FOCAL ABNORMALITIES: none EPILEPTIFORM/RHYTHMIC/PERIODIC ABNORMALITIES: none SEIZURE: none EVENTS: none SLEEP/STATE CHANGES: No clear sleep architecture. ACTIVATION: Hyperventilation: not performed Photic stimulation: not performed INTERPRETATION: This is an abnormal EEG due to Moderate to severe background slowing consistent with encephalopathy, nonspecific as to etiology. Interpreting physician: Manny Frost MD Luke Seals MD NEUROLOGY ORDERABLES Stevan ebenezer Result - Final * LACTIC ACID (01/31/2025 4:55 PM CDT) LACTIC ACID 0.6 <=2.0 mmol/L 01/31/2025 5:[address] [facility] Blood Venipuncture / Unknown 01/31/2025 4:55 PM CDT 01/31/2025 5:16 PM CDT Luke Seals MD CHEMISTRY ORDERABLES Fin al Result [facility] CLIA # [id number] [address] [facility] [place] [address] * CT CERVICAL SPINE WO CONTRAST (01/31/2025 1:33 PM CDT) Anatomical Region Laterality Modality Spine Computed Tomogra phy 01/31/2025 1:34 PM CDT Impressions 01/31/2025 1:40 PM CDT IMPRESSION: Please see below. Exam: CT CERVICAL SPINE WO CONTRAST Date/Time of Exam: 01/31/2025 1:33 PM Reason For Exam: Neck pain, acute, no red flags. Diagnosis: Seizure (CMS/HCC). Technique: CT of the cervical spine was performed without the administration of intravenous contrast. Findings: Mild reversal of the cervical lordosis. Mild multilevel endplate degeneration. No fracture or subluxation. No loss of vertebral body or disc height. No narrowing of the bony spinal canal. The visualized paraspinous soft tissues are unremarkable. IMPRESSION: No acute findings. Narrative Procedure Note Ricardo Mayen MD - 01/31/2025 IMPRESSION: Please see below. Exam: CT CERVICAL SPINE WO CONTRAST Date/Time of Exam: 01/31/2025 1:33 PM Reason For Exam: Neck pain, acute, no red flags. Diagnosis: Seizure (CMS/HCC). Technique: CT of the cervical spine was performed without the administration of intravenous contrast. Findings: Mild reversal of the cervical lordosis. Mild multilevel endplate degeneration. No fracture or subluxation. No loss of vertebral body or disc height. No narrowing of the bony spinal canal. The visualized paraspinous soft tissues are unremarkable. IMPRESSION: No acute findings. Baljeet Gallardo MD CT ORDERABLES Fi nal Result * CT HEAD WO CONTRAST (01/31/2025 1:33 PM CDT) Anatomical Region Laterality Modality Head Computed Tomogra phy 01/31/2025 1:33 PM CDT Impressions 01/31/2025 1:38 PM CDT IMPRESSION: Prominent areas of vasogenic edema in the brain as described. Leading diagnostic consideration is PRES. Recommend follow-up with contrast-enhanced brain MRI. Narrative 01/31/2025 1:38 PM CDT Exam: CT HEAD WO CONTRAST Date/Time of Exam: 01/31/2025 1:33 PM Reason For Exam: Seizure, new-onset, no history of trauma. Diagnosis: Seizure (CMS/HCC). Technique: CT of the head was performed without the administration of intravenous contrast. Findings: There is prominent vasogenic edema involving the parietal lobes, occipital lobes, posterior temporal lobes. There is less pronounced edema within the superior frontal lobes and bilateral cerebellar hemispheres. The pattern of involvement is most suggestive of PRES. No midline shift or brain herniation. No parenchymal hemorrhage. No hydrocephalus. No air-fluid level in the visual is paranasal sinuses. Mastoids are clear. No fracture. Procedure Note Ricardo Mayen MD - 01/31/2025 Exam: CT HEAD WO CONTRAST Date/Time of Exam: 01/31/2025 1:33 PM Reason For Exam: Seizure, new-onset, no history of trauma. Diagnosis: Seizure (CMS/HCC). Technique: CT of the head was performed without the administration of intravenous contrast. Findings: There is prominent vasogenic edema involving the parietal lobes, occipital lobes, posterior temporal lobes. There is less pronounced edema within the superior frontal lobes and bilateral cerebellar hemispheres. The pattern of involvement is most suggestive of PRES. No midline shift or brain herniation. No parenchymal hemorrhage. No hydrocephalus. No air-fluid level in the visual is paranasal sinuses. Mastoids are clear. No fracture. IMPRESSION: Prominent areas of vasogenic edema in the brain as described. Leading diagnostic consideration is PRES. Recommend follow-up with contrast-enhanced brain MRI. 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2000 Requested By: Order Number: [id number] Dansiha MURRAY: Prince Valentin Measurements Intervals [place] Rate: 95 P: 72 [place]: 146 QRS: 48 QRSD: 96 T: 60 QT: 367 QTc: 462 Interpretive Statements Normal sinus rhythm Non specific ST- T wave changes Abnormal ECG Electronically Signed On 02-01-2025 20:11:32 CDT by Prince Valentin Procedure Note Prince Valentin MD - 02/01/[address] [address] Test Date: 2025-01-31 Pat Name: VANCE CAMPBELL Department: 11 Room: 18 18 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 : 2000 Requested By: Order Number: [id number] Danisha MURRAY: Prince Valentin Measurements Intervals [place] Rate: 95 P: 72 [place]: 146 QRS: 48 QRSD: 96 T: 60 QT: 367 QTc: 462 Interpretive Statements Normal sinus rhythm Non specific ST- T wave changes Abnormal ECG Electronically Signed On 02-01-2025 20:11:32 CDT by Prince Valentin us Baljeet Gallardo MD ECG ORDERABLES Fi nal Result INTERFACE SYSTEM Refer to clinic/hospital department * (ABNORMAL) DRUG SCREEN, URINE (01/31/2025 10:40 AM CDT) AMPHETAMINE QUAL, URINE Negative Negative 01/31/2025 11:26 AM [facility] BARBITURATE QUAL, URINE Negative Negative 01/31/2025 11:26 AM [facility] BENZODIAZEPINE QUAL, URINE Negative Negative 01/31/2025 11:26 AM [facility] COCAINE QUAL URINE Negative Negative 01/31/2025 11:26 AM [facility] OPIATE QUAL, URINE Negative Negative 01/31/2025 11:26 AM [facility] CANNABINOIDS QUAL, URINE Presumptive Positive(A) Negative 01/31/2025 11:26 AM [facility] OXYCODONE QUAL, URINE Negative Negative 01/31/2025 11:26 AM [facility] METHADONE QUAL, URINE Negative Negative 01/31/2025 11:26 AM [facility] FENTANYL QUAL, URINE Negative Negative 01/31/2025 11:26 AM [facility] CREATININE, URINE 38.6(L) 40.0 - 278.0 mg/dL 01/31/2025 11:26 AM [facility] Comment:Reference Range vari es with fluid intake and diet. Urine URINE SPECIMEN OBTAINED BY CLEAN CATCH PROCEDURE / Unknown Collection / Unknown 01/31/2025 10:40 AM T 01/31/2025 10:43 AM [facility] Narrative [facility] - 01/31/2025 11:26 AM [facility] This test is a qualitative screen. The presumptive positive results should not be used for legal purposes. If confirmation of results is desired, the lab must be contacted without delay. Drug Ref. Range Screening Threshold Amphetamines Negative 500 ng/mL Barbiturates Negative 200 ng/mL Benzodiazepines Negative 100 ng/mL Cannabinoids Negative 50 ng/mL Cocaine Metabolite Negative 300 ng/mL Opiate Negative 300 ng/mL Oxycodone Negative 100 ng/mL Methadone Negative 300 ng/mL Fentanyl Negative 5 ng/mL us Baljeet Gallardo MD URINE ORDERABLES F inal Result [facility] CLIA # [id number] [facility] [address] [place] [address] * (ABNORMAL) URINALYSIS WITH REFLEX MICROSCOPIC (01/31/2025 10:40 AM CDT) COLOR UA Colorless(A ) Pale to Dark Yellow 01/31/2025 10:56 AM [facility] CLARITY UA Clear Clear 01/31/2025 10:56 AM [facility] SPECIFIC GRAVITY UA 1.006 1.003 - 1.035 01/31/2025 10:56 AM [facility] PH UA 8.0 5.0 - 8.0 01/31/2025 10:56 AM [facility] LEUKOCYTE ESTERASE UA Negative Negative 01/31/2025 10:56 AM [facility] NITRITE UA Negative Negative 01/31/2025 10:56 AM [facility] PROTEIN UA 1+(A) Negative 01/31/2025 10:56 AM [facility] GLUCOSE UA 1+(A) Negative 01/31/2025 10:56 AM [facility] KETONES UA Negative Negative 01/31/2025 10:56 AM [facility] UROBILINOGEN UA <2.0 <2.0 mg/dL 10:56 AM [facility] BILIRUBIN UA Negative Negative 01/31/2025 10:56 AM [facility] BLOOD UA Negative Negative 01/31/2025 10:56 AM [facility] WBC UA 0-2 0 - 2 /hpf 01/31/2025 10:56 AM [facility] RBC UA 3-5(A) 0 - 2 /hpf 01/31/2025 10:56 AM [facility] BACTERIA UA Negative Negative /hpf 01/31/2025 10:56 AM [facility] Urine URINE SPECIMEN OBTAINED BY CLEAN CATCH PROCEDURE / Unknown Collection / Unknown 01/31/2025 10:40 AM CDT 01/31/2025 10:44 AM CDT Baljeet Gallardo MD URINE ORDERABLES F inal Result [facility] CLIA # [id number] [facility] [address] [address] [place] [address] * (ABNORMAL) BLOOD GAS ARTERIAL (01/31/2025 10:27 AM CDT) PH BLOOD POC 7.39 7.35 - 7.45 01/31/2025 10:[address] [facility] PCO2 POC 39 35 - 45 mm Hg 01/31/2025 10:[address] [facility] PO2 POC 85 80 - 105 mm Hg 01/31/2025 10:27 AM [facility] HCO3 (CALC) POC 24 22 - 26 mmol/L 01/31/2025 10:[address] [facility] HEMOGLOBIN POC 10.1(L) 12.0 - 18.0 g/dL 01/31/2025 10:[address] [facility] BASE EXCESS POC -1 -2 - 3 mmol/L 01/31/2025 10:27 AM [facility] O2 SATURATION POC 98 95 - 98 % 01/31/2025 10:27 AM [facility] SODIUM POC 138 138 - 146 mmol/L 01/31/2025 10:[address] [facility] POTASSIUM POC 4.6 3.5 - 4.9 mmol/L 01/31/2025 10:[address] [facility] HEMATOCRIT POC 30(L) 38 - 51 % 01/31/2025 10:[address] [facility] PH TEMP CORRECT 7.39 7.35 - 7.45 01/31/2025 10:[address] [facility] PCO2 TEMP CORRECT 39 35 - 45 mm Hg 01/31/2025 10:[address] [facility] PO2 TEMP CORRECT 85 80 - 105 mm Hg 01/31/2025 10:[address] [facility] SPECIMEN SOURCE, GASES POC Arterial 01/31/2025 10:[address] [facility] CALCIUM IONIZED POC 4.4(L) 4.8 - 5.2 mg/dL 01/31/2025 10:[address] [facility] TCO2 (CALC) POC 25 23 - 27 mmol/L 01/31/2025 10:[address] [facility] PUNC SITE POC ART PUNCT 01/31/2025 10:[address] [facility] Blood, arterial 01/31/2025 1 0:27 AM CDT 01/31/2025 10:29 AM CDT Baljeet Gallardo MD ABG ORDERABLES Fi nal Result Performing Organization Address City/State/[facility] Co de Phone Number [facility] CLIA # [id number] [address] [place] [address] * (ABNORMAL) PTT (01/31/2025 9:47 AM CDT) PTT 22.8(L) 24.8 - 37.2 seconds 01/31/2025 10:[address] [facility] Blood Venipuncture / Unknown 01/31/2025 9:47 AM CDT 01/31/2025 10:[address] [facility] - 01/31/2025 10:16 AM CDT Therapeutic Range: Hi-level PE/DVT heparin protocol 80.1 - 95.0 sec Lo-level PE/DVT heparin protocol 70.1 - 85.0 sec Cardiac Heparin Protocol 70.1 - 100.0 sec Baljeet Gallardo MD HEMATOLOGY ORDERAB LES Final Result [facility] CLIA # [id number] [address] [address] [place], [place] [address] * (ABNORMAL) PROTIME-INR (01/31/2025 9:47 AM CDT) PROTIME 15.2(H) 12.6 - 14.6 Seconds 01/31/2025 10:[address] [facility] INR 1.2 0.8 - 1.2 01/31/2025 10:[address] [facility] Blood Venipuncture / Unknown 01/31/2025 9:47 AM CDT 01/31/2025 10:02 AM CDT Narrative [facility] [email or web address] [facility] - 01/31/2025 10:16 AM CDT Expected Values for INR: DVT/PE Goal INR 2.5; range 2.0 - 3.0 Valve Replacement Tissue Goal INR 2.5; range 2.0 - 3.0 Valve Replacement Mechanical Goal INR 3.0; range 2.5 - 3.5 POST-MO Goal INR 2.5; range 2.0 - 3.0 or Goal INR 3.0; range 2.5 - 3.5 Atrial Fibrillation Goal INR 2.5; range 2.0 - 3.0 Ischemic Stroke Goal INR 2.5; range 2.0 - 3.0 Baljeet Gallardo MD HEMATOLOGY ORDERAB LES Final Result [facility] CLIA # [id number] [address] [address] * CK (01/31/2025 9:47 AM CDT) CK 223 39 - 308 U/L 01/31/2025 1:[address] [facility] Blood Venipuncture / Unknown 01/31/2025 9:47 AM CDT 01/31/2025 10:02 AM CDT us Luke Seals MD CHEMISTRY ORDERABLES Fin al Result Performing Organization Address [facility] Co de Phone Number [facility] [email or web address] [facility] CLIA # [id number] [address] [facility] [place] [address] * ETHANOL LEVEL (01/31/2025 9:47 AM CDT) ETHANOL <10.10 <10.10 mg/dL 01/31/2025 10:[address] [facility] ETHANOL % <0.01 <=0.01 %w/v 01/31/2025 10:[address] [facility] Blood Venipuncture / Unknown 01/31/2025 9:47 AM CDT 01/31/2025 10:02 AM CDT us Baljeet Gallardo MD CHEMISTRY ORDERABL ES Final Result Performing Organization Address [facility] Co de Phone Number [facility] CLIA # [id number] [address] [address] * (ABNORMAL) ACETAMINOPHEN LEVEL (01/31/2025 9:47 AM CDT) ACETAMINOPHEN LEVEL <5(L) 10 - 30 ug/mL 01/31/2025 10:[address] [facility] Blood Venipuncture / Unknown 01/31/2025 9:47 AM CDT 01/31/2025 10:02 AM CDT us Baljeet Gallardo MD CHEMISTRY ORDERABL ES Final Result Performing Organization Address City/[facility]/ZIP Co de Phone Number [facility] [email or web address] [facility] CLIA # [id number] [address] [place] [address] * (ABNORMAL) SALICYLATE LEVEL (01/31/2025 9:47 AM CDT) Pathologist [facility] SALICYLATE LEVEL <0.3(L) 3.0 - 10.0 mg/dL 01/31/2025 10:[address] [facility] Blood Venipuncture / Unknown 01/31/2025 9:47 AM CDT 01/31/2025 10:02 AM CDT us Baljeet Gallardo MD CHEMISTRY ORDERABL ES Final Result [facility] CLIA # [id number] [address] [place] [address] * (ABNORMAL) COMPREHENSIVE METABOLIC PANEL (01/31/2025 9:47 AM CDT) Pathologist [facility] SODIUM 146(H) 136 - 145 mmol/L 01/31/2025 10:[address] [facility] POTASSIUM 4.9 3.5 - 5.1 mmol/L 01/31/2025 10:[address] [facility] CHLORIDE 97(L) 98 - 107 mmol/L 01/31/2025 10:[address] [facility] CO2 14(L) 22 - 29 mmol/L 01/31/2025 10:[address] [facility] CALCIUM 9.1 8.6 - 10.0 mg/dL 01/31/2025 10:[address] [facility] BUN 29(H) 6 - 20 mg/dL 01/31/2025 10:[address] [facility] CREATININE 7.08(H) 0.67 - 1.17 mg/dL 01/31/2025 10:[address] [facility] GLUCOSE 151(H) 74 - 99 mg/dL 01/31/2025 10:[address] [facility] TOTAL PROTEIN 7.3 6.4 - 8.3 g/dL 01/31/2025 10:[address] [facility] ALBUMIN 4.8 3.5 - 5.2 g/dL 01/31/2025 10:[address] [facility] BILIRUBIN TOTAL 0.3 0.2 - 1.0 mg/dL 01/31/2025 10:[address] [facility] ALKALINE PHOSPHATASE 101 40 - 129 U/L 01/31/2025 10:[address] [facility] AST 19 10 - 50 U/L 01/31/2025 10:[address] [facility] Comment:Hemolysis present. R esult may be falsely elevated. ALT 11 <=50 U/L 01/31/2025 10:[address] [facility] GFR 10(L) >=60 mL/min/1. 73 sq meter 01/31/2025 10:[address] [facility] Comment:eGFR calculated with 2020 CKD-EPI equation. Vegetarian diet, extremely high or low muscle mass, and may affect results. Cystatin C with Glomerular Filtration Rate is a suitable alternative for these patients. ANION GAP 35(H) 9 - 20 mmol/L 01/31/2025 10:[address] [facility] Blood Venipuncture / Unknown 01/31/2025 9:47 AM CDT 01/31/2025 10:02 AM CDT us Baljeet Gallardo MD CHEMISTRY ORDERABL ES Final Result 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 renal failure Critical care was time spent personally by me on the following activities: Blood draw for specimens, development of treatment plan with patient or surrogate, discussions with consultants, evaluation of patient's response to treatment, examination of patient, review of old charts, re-evaluation of patient's condition, pulse oximetry, ordering and review of radiographic studies, ordering and review of laboratory studies, ordering and performing treatments and interventions and obtaining history from patient or surrogate I assumed direction of critical care for this patient from another provider in my specialty: no Care discussed with: admitting provider Baljeet Gallardo MD PROCEDURE/MINOR GOMEZ RGICAL ORDERABLES Final Result from Last 3 Months Insurance [place]ICAID [place] [employer] RX Member Subscriber Plan / Payer (Ef fective 2025-Present) Name:Vance Campbell Relation to Subscriber:Self Name:Vance Campbell Subscriber ID:Not on file Payer ID:Not on file Group ID:[id number] Type:RX Medicare Part D Address: [address] Advance Directives For more information, please contact: [phone] * Full Code (Latest Code Status on File) Date Activated Date Inactivated Comments 01/31/2025 2:27 PM 02/03/2025 8:44 PM
--- NOTE | 2025-04-11 20:56 | ECG_ITS ---
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
--- NOTE | 2025-04-11 21:00 | PC.NURSE ---
patient has multiple c/o. He is a HD patient that has missed dialysis a few times over last 2 weeks. He normally goes M,W,F. He did last treatment was thursday. He states his neck and back were in such pain he did not feel like going. Today his neck pain and back pain have intensified so that he came to ED. He states on way here he began having vision changes. States it comes and goes.
[2025-04-11] MEDS: losartan 50 mg Tablet 25 MG PO (21:31)
[2025-04-11] MEDS: amlodipine 10 mg Tablet PO (21:32)
[2025-04-11] MEDS: sodium chloride 0.9% 500 ML IV (21:33)
[2025-04-11] MEDS: LORazepam 1 MG/0.5 ML injection 2 MG IVP (21:33)
[2025-04-11 21:36] VITALS: RESP 18
[2025-04-11] MEDS: morphine 4 mg/mL SDV 1 mL IVP (21:36)
[2025-04-11] MEDS: acetaminophen 1,000 MG/100 ML PIGGYBACK 400 MG IV (21:38)
--- NOTE | 2025-04-11 21:47 | ED_ITS ---
HPI - General Adult 2 General: Chief complaint: Eye Problems Stated complaint: vision loss, back pain, BHANDARI, missed dialysis appts Time Seen by Provider: 04/11/25 20:45 History of Present Illness: Patient with end-stage renal disease on dialysis presents after missing dialysis for four days, the longest interval without treatment. Reports severe, persistent pain primarily in the neck and head, with pain radiating down the spine. Patient has not urinated since the onset of symptoms and notes prior increased urination followed by cessation. Reports anxiety and recent psychiatric admission after missing a dialysis session, with ongoing sleep disturbance and panic attacks. Has not been able to consistently take blood pressure medications due to nausea and inability to tolerate oral intake. Denies vomiting but experiences significant nausea and fear of emesis worsening blood pressure. No current shortness of breath or signs of fluid overload. No recent vomiting, but mouth watering and nausea present. No mention of fever, chest pain, or other acute symptoms. Girlfriend notes that patient becomes suicidal anytime he goes home and refuses to take his medications. He has not taken any medication in roughly 1 week. This includes [employer] Home Medications ?Medication ?Instructions ?Recorded ?Confirmed amlodipine 10 mg tablet 10 mg PO DAILY 09/11/2403/19 labetalol 100 mg tablet 200 mg PO BID 09/11/2404/05 vit B,C-folic ac 800 mcg-zinc 12.5 1 tab PO DAILY 08/2004/05/25 mg-selen-D3 2,000 unit-vit E tablet (RenaPlex-D) levetiracetam 500 mg tablet See Rx Instructions .Route .COMPLEX 02/12/25 04/05/25 sevelamer carbonate 800 mg tablet 800 - 1,600 mg PO TI D 02/12/25 04/05/25 trazodone 50 mg tablet 50 mg PO BEDTIME 02/12/25 hydralazine 100 mg tablet 100 mg PO TID 04/05/2504/05 losartan 25 mg tablet 25 mg PO DAILY 04/05/2503/19 methocarbamol 500 mg tablet 500 - 1,000 mg PO Q6H PRN Muscle 04/05/25 04/05/25 Spasm sumatriptan 20 mg/actuation nasal 20 mg intranasal Q12 H PRN Migraine 04/05/25 04/05/25 spray Headache Previous Rx's ?Medication ?Instructions ?Recorded B-complex with vitamin C 1 tab PO DAILY 30 days #30 t abs 08/04/24 divalproex 500 mg tablet,delayed 500 mg PO BID 30 days #60 tabs 08/04/24 release clonazepam 1 mg tablet (Klonopin) 1 mg PO BID PRN anxi ety #10 tabs 01/09/25 prednisone 5 mg tablet 5 mg PO DAILY #60 tabs 02/14 Allergies Allergy/AdvReac Type Severity Reaction Status Date / Time NSAIDS (Non-Steroidal Allergy Severe unable to Verified 04/04/25 19:07 Anti-Inflamma take due to kidney disease sertraline (From Zoloft) Allergy Unknown Verified 04/04/25 19:07 [facility] ED 2 PFSH: Medical History Adrenal insufficiency Hypoglycemia CKD (chronic kidney disease) stage V requiring chronic dialysis Generalized anxiety disorder Other stimulant dependence, in remission Problems related to lack of adequate sleep Substance abuse Depression Anxiety Social History (Updated 04/05/25 @ 13:29 by Rocky Colin MD) Smoking and tobacco/nicotine status: never used tobacco/nicotine Quit status (tobacco/nicotine): has tried quititng Number of times tried to quit tobacco: 4 Second hand smoke exposure: No Alcohol intake: never Substance/Drug Use: current Substance/Drug use frequency: Special occassions/opportunity only Physical Exam 2 Const: COMMON NORMALS: no acute distress, patient oriented x3 and alert HENMT: COMMON NORMALS: normocephalic and atraumatic HEAD & SCALP: n ormocephalic and atraumatic OTHER: Mild signs of ketones on breath. Dry mucous membranes. Eye: COMMON NORMALS: Equal, round and reactive pupils present, EOMs intact bilaterally and no scleral icterus PUPIL: Yes Equal, round and reactive pupils present Neck/C-Spine: OTHER: No midline tenderness. Full range of motion with no increase in pain. Some muscular hypertrophy bilaterally most prominent at the level of C4 with mild tenderness with palpation of paraspinal musculature Resp: OTHER: Borderline tachypneic, clear lungs, no wheezes or rales. Cardio: OTHER: Borderline tachycardic, regular rhythm. GI: COMMON NORMALS: Normal to inspection, nondistended, normoactive bowel sounds present, Soft to palpation and non-tender PALPATION: Yes Soft to palpation Neuro: COMMON NORMALS: patient oriented x3 SENSORIUM/ORIENTATION: Yes alert Skin: COMMON NORMALS: no rashes or lesions noted GENERAL SKIN EXAM: no rashes or lesions noted Course 2 Vital Signs: Vital signs: Vital Signs Temperature 98.2 F 04/11/25 20:33 Pulse Rate 84 04/12/25 03:00 Respiratory Rate 18 04/12/25 03:00 Blood Pressure 177/118 04/12/25 03:00 Pulse Oximetry 93 04/12/25 03:00 Oxygen Delivery Me thod Room Air 04/12/25 03:00 MDM - General Adult Medical Decision Making In summary, patient arrives borderline tachycardic, borderline tachypneic, clinically appearing dehydrated. Metabolic panel shows creatinine of 16 which is somewhat higher than previously recorded. He has decreased urine output and clear lungs. He was given 1.5 L normal saline which helped significantly. Headache is much better with treatment. Blood pressure has dropped with treatment of pain. Potassium is stable at 5 and EKG does not show signs of hyperkalemia or other metabolic derangement requiring immediate dialysis. High anion gap is likely multifactorial but primarily uremic in nature. I will contact nephrology to see if we can get him dialyzed first thing in the morning and will likely observe him overnight in the emergency department until this can be performed as there are no beds available inpatient for him to be admitted. I will repeat a BMP after fluids are finished to see if anion gap is improving. While in the emergency department, patient had a grand mal seizure after which she was given Ativan and Keppra. At that time, I had not realized he was not taking his Keppra and suspect that subtherapeutic level plays a significant contributing factor in his seizure today. Girlfriend tearfully tells me that when at home, patient gives up open life and refuses to take any medications and refuses to go to dialysis. He was just discharged from inpatient psychiatry 4 days ago. I spoke with the hospitalist on-call concerning his care and he will be admitted to their service for further observation and dialysis and possibly psychiatric consultation. Lab Data 04/11/25 21:30 04/12/25 00:08 Laboratory Results WBC 4.76 10^3/uL (3.29-11.43) 04/11/25 21: RBC 3.78 10^6/uL (3.85-5.65) L 04/11/25 21: Hgb 11.70 g/dL (11.27-16.99) 04/11/25 21: Hct 36.2 % (37-53) L 04/11/25 21: MCV 95.8 fl (82-101) 04/11/25 21: MCH 31.0 pg (27-33) 04/11/25 21: MCHC 32.3 g/dL (30-55) 04/11/25 21: RDW 16.3 % (12.1-15.1) H 04/11/25: Plt Count 106 10^3/cmm (157-399) L 04/11/25 21: MPV 10.8 fL (7.4-10.4) H 04/11/25 21: Neut % (Auto) 64.2 % 04/11/25 21: Lymph % (Auto) 14.9 % 04/11/25 21: [place] % (Auto) 13.9 % 04/11/25 21: Eos % (Auto) 5.5 % 04/11/25: Baso % (Auto) 1.3 % 04/11/25: Neut # (Auto) 3.06 10^3/uL (1.8-7.7) 04/11/25: Lymph # (Auto) 0.7 10^3/uL (0.8-4.8) L 04/11/25 21: [place] # (Auto) 0.7 10^3/uL (0.2-0.9) 04/11/25: Eos # (Auto) 0.3 10^3/uL (0.0-0.8) 04/11/25: Baso # (Auto) 0.1 10^3/uL (0.0-0.1) 04/11/25: Nucleated RBC % (auto) 0 % 04/11/25: Nucleated RBCs # 0.0 /100WBC 04/11/25 21: Specimen Type Venous 04/11/25 22:17 Paul Test N/a 04/11/25 22:17 VBG pH 7.36 (7.32-7.42) 04/11/25 22:17 VBG pCO2 31.4 mmHg (41-51) L 04/11/25 22:17 VBG pO2 116.0 mmHg (25-40) H 04/11/25 22:17 VBG HCO3 17.9 mmol/L (24-28) L 04/11/25 22:17 VBG Base Excess -6.5 mmol/L (-3.0-3.0) L 04/11/25 22:17 VBG Hematocrit 36.2 % (42-52) L 04/11/25 22:17 Input Output Clerk ID [email or web address] 04/11/25 22:17 Sodium 142 mmol/L (136-145) 04/12/25 00:08 Potassium 4.4 mmol/L (3.5-5.1) 04/12/25 00:08 Chloride 101 mmol/L (98-107) 04/12/25 00:08 Carbon Dioxide 19 mmol/L (22-29) L 04/12/25 00:08 Anion Gap 26.4 (5-19) H 04/12/25 00:08 BUN 61 mg/dL (6-20) H 04/12/25 00:08 Creatinine 15.5 mg/dL (0.7-1.2) H* 04/12/25 00:08 GFR Calculation 3.9 mL/min (90-130) L 04/12/25 00:08 Glucose 115 mg/dL (65-115) 04/12/25 00:08 POC Glucose 104 mg/dL (70-110) 04/11/25 23:02 Calculated Osmolality 312 mOsm/kg (285-295) H 04/12/25 00:08 Calcium 8.0 mg/dL (8.5-10.5) L 04/12/25 00:08 Magnesium 3.1 mg/dL (1.7-2.3) H 04/11/25 21:30 Total Bilirubin 0.3 mg/dL (0.15-1.2) 04/11/25 21:30 AST 11 U/L (0-40) 04/11/25 21:30 ALT 7 U/L (0-41) 04/11/25 21:30 Alkaline Phosphatase 76 U/L (40-130) 04/11/25 21:30 Total Protein 6.8 g/dL (6.6-8.7) 04/11/25 21:30 Albumin 4.5 g/dL (3.5-5.2) 04/11/25 21:30 Globulin 2.3 g/dL (1.3-4.6) 04/11/25 21:30 All radiology interpretation(s) finalized by discharge EKG Data EKG 1: Interpretation: Time?2143?normal sinus rhythm, rate of 61, no ST segment elevation or depression, no T wave inversions, normal T wave morphology but T waves are somewhat taller than normal. No symmetry of T wave. Narrow QRS complexes of 93 ms duration. QTc = 481 Discharge Plan Discharge Clinical Impression: ESRD on hemodialysis, Generalized anxiety disorder, Depression, Noncompliance with medication regimen, Seizure disorder, grand mal, Seizure secondary to subtherapeutic anticonvulsant medication, Uremic acidosis, Increased anion gap metabolic acidosis Condition: Stable Prescriptions: No Action B-complex with vitamin C Tablet 1 tab PO DAILY 30 Days Qty: 30 1RF divalproex 500 mg tablet,delayed release (DR/EC) 500 mg PO BID 30 Days Qty: 60 1RF trazodone 50 mg tablet 50 mg PO BEDTIME levetiracetam 500 mg tablet See Rx Instructions .ROUTE .COMPLEX Rx Instructions: Take 1 Tablet (500 mg) by mouth 2 times daily. If you have dialysis before 9 AM, please wait to take your morning dose of Keppra until after dialysis. sevelamer carbonate 800 mg tablet 800 - 1,600 mg PO TID prednisone 5 mg tablet 5 mg PO DAILY Qty: 60 2RF Rx Instructions: Take 10 mg for 4 weeks, then 5 mg daily sumatriptan 20 mg/actuation spray,non-aerosol 20 mg INTRANASAL Q12H PRN (Reason: Migraine Headache) methocarbamol 500 mg tablet 500 - 1,000 mg PO Q6H PRN (Reason: Muscle Spasm) hydralazine 100 mg tablet 100 mg PO TID losartan 25 mg tablet 25 mg PO DAILY labetalol 100 mg tablet 200 mg PO BID RenaPlex-D 800 mcg-12.5 mg -2,000 unit tablet 1 tab PO DAILY amlodipine 10 mg tablet 10 mg PO DAILY clonazepam [Klonopin] 1 mg tablet 1 mg PO BID PRN (Reason: anxiety) Qty: 10 0RF Referrals: Renetta Cole, [facility]ATIONS LIAISON [Primary Care Provider, Nurse Practitioner] Discharge Diet: Usual diet Print Language: Bulgarian Coding Level of Care Code ED Interior Surface Insulation Worker for Loida Menon
[2025-04-11 21:49] LABS: Basophils # 0.1 10^3/uL (0.0-0.1); Basophils % 1.3 %; Eosinophils # 0.3 10^3/uL (0.0-0.8); Eosinophils % 5.5 %; Hematocrit 36.2 % (37-53); Lymphocytes # 0.7 10^3/uL (0.8-4.8); Lymphocytes % 14.9 %; Mean Corpuscular HGB Conc 32.3 g/dL (30-55); Mean Corpuscular Volume 95.8 fl (82-101); Mean Platelet Volume 10.8 fL (7.4-10.4); Monocytes # 0.7 10^3/uL (0.2-0.9); Monocytes % 13.9 %; Neutrophils # 3.06 10^3/uL (1.8-7.7); Neutrophils % 64.2 %; Nucleated Red Blood Cells % 0 %; Platelet Count 106 10^3/cmm (157-399); Red Blood Count 3.78 10^6/uL (3.85-5.65); Red Cell Distribution Width 16.3 % (12.1-15.1); White Blood Count 4.76 10^3/uL (3.29-11.43)
[2025-04-11 22:00] VITALS: BP 209/137; PULSE 65; RESP 12; O2SAT 98
[2025-04-11 22:07] LABS: Alanine Aminotransferase 7 U/L (0-41); Albumin Level 4.5 g/dL (3.5-5.2); Alkaline Phosphatase 76 U/L (40-130); Aspartate Amino Transferase 11 U/L (0-40); Blood Urea Nitrogen 63 mg/dL (6-20); Calcium 8.9 mg/dL (8.5-10.5); Carbon Dioxide 18 mmol/L (22-29); Chloride 98 mmol/L (98-107); Creatinine Clr Calc Pharmacy 4.2855; Globulin 2.3 g/dL (1.3-4.6); Glomerular Filtration Rate 3.7 mL/min (90-130); Glucose 56 mg/dL (65-115); Magnesium 3.1 mg/dL (1.7-2.3); Osmolality Calculated 312 mOsm/kg (285-295); Sodium 143 mmol/L (136-145); Total Bilirubin 0.3 mg/dL (0.15-1.2); Total Protein 6.8 g/dL (6.6-8.7)
--- NOTE | 2025-04-11 22:24 | PC.NURSE ---
pts blood sugar noted to be 56 . pt given grape/cranberry juice and stephanie crackers .
[2025-04-11 22:49] LABS: Base Excess VBG -6.5 mmol/L (-3.0-3.0); Blood Gas Sample Type Venous; HCO3 VBG 17.9 mmol/L (24-28); PCO2 VBG 31.4 mmHg (41-51); Venous Blood Gas Hematocrit 36.2 % (42-52); pH VBG 7.36 (7.32-7.42)
[2025-04-11] MEDS: sodium chloride 0.9% 1,000 ML 999 ML IV (22:49)
[2025-04-11 23:00] VITALS: BP 195/130; PULSE 67; RESP 22; O2SAT 97
[2025-04-11 23:05] LABS: Glucose Point of Care 104 mg/dL (70-110)
[2025-04-11 23:53] VITALS: BP 202/139; PULSE 75; RESP 22; O2SAT 98
[2025-04-12] VITALS (84 sets, daily range): BP systolic 141–213; BP diastolic 81–154; PULSE 67–120; RESP 1–25; TEMP 36.1–37.2; O2SAT 91–100
[2025-04-12 00:28] LABS: Anion Gap 26.4 (5-19); Blood Urea Nitrogen 61 mg/dL (6-20); Carbon Dioxide 19 mmol/L (22-29); Chloride 101 mmol/L (98-107); Glomerular Filtration Rate 3.9 mL/min (90-130); Glucose 115 mg/dL (65-115); Osmolality Calculated 312 mOsm/kg (285-295); Potassium 4.4 mmol/L (3.5-5.1); Sodium 142 mmol/L (136-145)
[2025-04-12] MEDS: morphine 4 mg/mL SDV 1 mL IVP ×3 (00:47→23:17)
[2025-04-12] MEDS: levETIRAcetam 2,000 MG/200 ML PREMIX 400 MG IV (02:46)
[2025-04-12] MEDS: LORazepam 1 MG/0.5 ML injection 4 MG IVP (02:46)
--- NOTE | 2025-04-12 05:25 | PM.HP ---
Providers/Chief Complaint Admitting Physician: Daron Ayala MD Primary Care Provider: Renetta Cole NP Chief Complaint: vision loss, back pain, BHANDARI, missed dialysis appts History of Present Illness Vance Sainz is a 24 year old male comes in with complaints of headache and neck pain. He denies previous injury but states this has been chronic pain. This has been worsened with missed dialysis but then he states he is in so much pain that he cannot sit through dialysis. Patient was recently admitted to ER bed hold on 04/05/2025 after seen by EMD physician 04/04/2025. Patient had evaluation by Dr. Marroquin and was on a 96-hour hold. He and proved with treatment and counseling and group therapy and was discharged on the . Patient reports that he did not take his medications and did not go to dialysis. He states that he in part did not take medications because he did not feel good and thought he would vomited up and then gives unclear logic that if he took his medications he was afraid he would have low blood pressure or cardiac arrest from taking medication and not going to dialysis. Patient is tangential and telling me that he wants to have a kidney transplant and that there are 10 people that want to give him a kidney but his doctor is blocking it. When asked about his previous failed kidney transplant he states that he took his medicines but just missed taking his rejection medicines twice and went into rejection. Patient tells me that he did not go to dialysis in part because he wants to go on hospice but then when queried about going on hospice and foregoing dialysis he states he wants to do dialysis because he wants to get better. This culminates in our mutual agreement that he should see the psychiatrist. He states that it is bullshit what is happening here and that I am not listening to his reasons for why he did not do dialysis. States that he would like to talk to Dr. Marroquin and that he is the only doctor that knows him. I explained to the patient that his blood pressure is high and we would treat him with medication for that. Patient reported that he sees the numbers or stroke levels and that this is in the territory of lawsuit but he does not want to go that way. Additionally I explained he would be admitted and when a bed available would go upstairs. Furthermore we would need to speak with mentally impaired teacher to arrange dialysis and that he would be observed in the hospital until he did not have further seizures. Also he states that he does not have seizures at home and what is going on and why this is face swollen. I told him that it was because of missing medications and that he had a seizure disorder. He states that he is only had 1 seizure before. I talked with Dr. Rae and the patient is already had losartan and amlodipine in the emergency department Early during his presentation to treat his blood pressure. Dr. Rae has reevaluated the patient regarding his inconsistent wishes for dialysis. Patient confirmed that he does not want to have dialysis and Dr. Rae is calling mentally impaired teacher on-call. I have ordered additional blood pressure medication in the form of Trandate 200 mg and hydralazine. Review of Systems Narrative: General chronic head and neck pain GI no nausea vomiting Medications/Allergies Home Medications ?Medication ?Instructions ?Recorded ?Confirmed ?Last Taken ?Type B-complex with vitamin C 1 tab PO DAILY 30 days #30 tabs 08/04/24 04/05/25 09/10/24 Rx divalproex 500 mg tablet,delayed 500 mg PO BID 30 days #60 tabs 08/04/24 04/05/25 09/10/24 Rx release amlodipine 10 mg tablet 10 mg PO DAILY 09/11/24 04/05/25 04/04/25 History labetalol 100 mg tablet 200 mg PO BID 09/11/24 04/05/25 02/12/25 09:00 History vit B,C-folic ac 800 mcg-zinc 12.5 1 tab PO DAILY 09/11/24 04/05/25 09/10/24 History mg-selen-D3 2,000 unit-vit E tablet (RenaPlex-D) clonazepam 1 mg tablet (Klonopin) 1 mg PO BID PRN anxiety #10 tabs 01/09/25 04/05/25 02/12/25 09:00 Rx levetiracetam 500 mg tablet See Rx Instructions .Route .COMPLEX 02/12/25 04/05/25 02/11/25 09:00 History sevelamer carbonate 800 mg tablet 800 - 1,600 mg PO TID 02/12/25 04/05/25 02/12/25 09:00 History trazodone 50 mg tablet 50 mg PO BEDTIME 02/12/25 04/05/25 01/30/25 21:00 History prednisone 5 mg tablet 5 mg PO DAILY #60 tabs 02/14/25 04/05/25 Unknown Rx hydralazine 100 mg tablet 100 mg PO TID 04/05/25 04/05/25 Unknown History losartan 25 mg tablet 25 mg PO DAILY 04/05/25 04/05/25 Unknown History methocarbamol 500 mg tablet 500 - 1,000 mg PO Q6H PRN Muscle 04/05/25 04/05/25 Unknown History Spasm sumatriptan 20 mg/actuation nasal 20 mg intranasal Q12H PRN Migraine 04/05/25 04/05/25 Unknown History spray Headache Allergies Allergy/AdvReac Type Severity Reaction Status Date / Time NSAIDS (Non-Steroidal Allergy Severe unable to Verified 04/04/25 19:07 Anti-Inflamma take due to kidney disease sertraline (From Zoloft) Allergy Unknown Verified 04/04/25 19:07 PFSH Acute PFSH: Medical History Adrenal insufficiency Hypoglycemia CKD (chronic kidney disease) stage V requiring chronic dialysis Generalized anxiety disorder Other stimulant dependence, in remission Problems related to lack of adequate sleep Substance abuse Depression Anxiety Social History (Updated 04/12/25 @ 05:42 by Daron Ayala MD) Smoking and tobacco/nicotine status: unknown if used tobacco/nicotine Quit status (tobacco/nicotine): has tried quititng Number of times tried to quit tobacco: 4 Second hand smoke exposure: No Alcohol intake: never Substance/Drug Use: current Substance/Drug use frequency: Special occassions/opportunity only Additional social history: Patient uses marijuana 1 g every other day he has remote history of some meth use. He reports chewing tobacco and using nicotine pouches but denies smoking cigarettes. He denies suicidal ideation. Patient is companied by his girlfriend and his CODE STATUS is always been full code Vitals/I&O/Wt Last Vital Signs Temp 98.2 F 04/11/25 20:33 Pulse 81 04/12/25 04:00 Resp 15 04/12/25 04:00 BP 169/111 04/12/25 04:00 Pulse Ox 98 04/12/25 04:00 O2 Del Method Room Air 04/12/25 03:00 04/11/25 04/11/2504/12/25 14:59 22:59 06:59 Intake Total 100 / 100 Balance 100 / 100 Weight last 48 hrs Weight 43.091 kg Physical Exam Narrative: General well-developed well-nourished male awaken from sleep. Initially speaks in mumbling voice with illogical report of why he did not take his medications or go to dialysis. When discussion simplifies to the fact that he is sick because he did not do his dialysis or take his medications history changes to his report that he does not want to do dialysis and wants to go on hospice and is talk to somebody about that and that it is right but it has been blocked. He states he understands that doctors would not want him to do that. I told him it was within his right to refuse dialysis and go on hospice and asked if that is what he wanted to do. Patient states he wants dialysis. CV regular rate and rhythm with loud precordial heart sounds Lungs clear to auscultation bilaterally Abdomen positive bowel sounds soft Calves no edema Arms Bruit and thrill noted in the right arm Data 04/11/25 21:30 04/12/25 00:08 A&P Assessment and plan (1) Seizure secondary to subtherapeutic anticonvulsant medication: Patient had a Keppra load in the emergency department and will be continued on his home Keppra and Depakote. No further seizures since his 2000 mg load. If no seizures for 24 hours will be discharged home (2) ESRD on hemodialysis: Chemical Engineering Teacher on-call being contacted by Dr. Rae and will proceed with dialysis if nephrology is agreeable. Counseled the patient that he needs to go to his scheduled dialysis 3 times a week (3) Renal transplant failure and rejection: Patient reports intermittent noncompliance with his medications that he thinks led to rejection of his kidney. He is seeking additional kidney transplant. I counseled him that he needs to show compliance with his dialysis and medications and that compliance is typical requirement to the transplant organ program. (4) Hypertension: Will give labetalol 200 mg and hydralazine 100 mg now (5) Generalized anxiety disorder: Continue home meds. Will ask psychiatrist to see him in the morning PDMP PDMP Reviewed: Not Reviewed Attestations Medical Necessity Statement*: Patient is admitted to hospital with plans for dialysis. Depending on the course of stability and potential need for psychiatric admission he will be here for 1 to 2 days for medical stabilization. Coding Level of Care Code Acute Code for Chg Fwd Diagnoses Seizure secondary to subtherapeutic anticonvulsant medication R56.9; Z79.899 ESRD on hemodialysis N18.6; Z99.2 Renal transplant failure and rejection T86.12; T86.11 Hypertension I10 Generalized anxiety disorder F41.1 Time Spent (min) 70
[2025-04-12] MEDS: labetalol 200 mg Tablet PO ×2 (05:52→20:10)
[2025-04-12] MEDS: hyDRALAzine 50 mg Tablet 100 MG PO ×3 (05:52→20:10)
[2025-04-12] MEDS: nicardipine 20 MG/200 ML PREMIX 50 MG IV ×2 (06:50→13:15)
--- NOTE | 2025-04-12 08:20 | PC.PHAR ---
Verified medications with pts' mom when he was admitted last week. Pt was reluctant to go over home meds today, but finally did. Nothing was added at discharge from [facility].
--- NOTE | 2025-04-12 10:17 | PC.NURSE ---
PER VERBAL ORDER FROM DR. GUADARRAMA PT TO BE TITRATED OFF OF NICARDIPINE AND GIVEN SCHEDULED PO BLOOD PRESSURE MEDICATIONS.
[2025-04-12] MEDS: acetaminophen 325 mg Tablet 650 MG PO (10:20)
[2025-04-12] MEDS: ondansetron 2 mg/ML SDV 2 mL 4 MG IVP (11:03)
[2025-04-12] MEDS: divalproex DR 500 mg Tablet PO ×2 (11:05→20:10)
[2025-04-12] MEDS: amlodipine 10 mg Tablet PO (11:06)
--- NOTE | 2025-04-12 11:31 | PC.NURSE ---
PT VERBALIZED HE IS UPSET THAT HE IS NOT GETTING PAIN MEDICATION. THIS NURSE SPOKE TO HOSPITALIST DR. GUADARRAMA AND SHE STATED SHE WANTED 650MG OF TYLENOL GIVEN. PT CUSSING AND DISSATISFIED WITH MEDICATION. PT STATES THAT SHIT DONT WORK.
--- NOTE | 2025-04-12 11:35 | PC.NURSE ---
PT STATES HE WOULD LIKE TO SPEAK WITH A PATIENT [employer] REGARDING HIS CARE. AMARILYS WALLACE NOTIFIED.
[2025-04-12] MEDS: predniSONE 5 mg Tablet PO (12:52)
[2025-04-12] MEDS: b-complex-vitamin c Tablet 1 EACH PO (12:52)
[2025-04-12] MEDS: levETIRAcetam 500 mg Tablet PO ×2 (12:52→20:10)
--- NOTE | 2025-04-12 14:21 | PM.CONSULT ---
Providers/Reason For Consult Consulting Physician/Specialty*: [facility] /nephrology Reason for Consult*: ESRD Attending Physician: Melissa Lange MD Primary Care Provider: Renetta Cole NP History of Present Illness History of Present Illness Vance Sainz is a 24 year old male With past medical history of end-stage renal disease on dialysis per Thursday schedule, failed kidney transplant, depression, substance abuse, vitamin insufficiency, seizure presented to the emergency departmentm due to complaints of headache and neck pain. Patient missed dialysis on Thursday. Last dialysis was Thursday according to the patient. In the ED patient was noted to be hypertensive with a blood pressure systolic in the 230s range. He was started on Cardene drip and admitted to ICU. Review of Systems Narrative: negative Medications/Allergies Home Medications ?Medication ?Instructions ?Recorded ?Confirmed ?Last Taken ?Type B-complex with vitamin C 1 tab PO DAILY 30 days #30 tabs 08/04/24 04/12/25 09/10/24 Rx divalproex 500 mg tablet,delayed 500 mg PO BID 30 days #60 tabs 08/04/24 04/12/25 09/10/24 Rx release amlodipine 10 mg tablet 10 mg PO DAILY 09/11/24 04/12/25 04/04/25 History labetalol 100 mg tablet 200 mg PO BID 09/11/24 04/12/25 02/12/25 09:00 History vit B,C-folic ac 800 mcg-zinc 12.5 1 tab PO DAILY 09/11/24 04/12/25 09/10/24 History mg-selen-D3 2,000 unit-vit E tablet (RenaPlex-D) clonazepam 1 mg tablet (Klonopin) 1 mg PO BID PRN anxiety #10 tabs 01/09/25 04/12/25 02/12/25 09:00 Rx levetiracetam 500 mg tablet See Rx Instructions .Route .COMPLEX 02/12/25 04/12/25 02/11/25 09:00 History sevelamer carbonate 800 mg tablet 800 - 1,600 mg PO TID 02/12/25 04/12/25 02/12/25 09:00 History trazodone 50 mg tablet 50 mg PO BEDTIME 02/12/25 04/12/25 01/30/25 21:00 History prednisone 5 mg tablet 5 mg PO DAILY #60 tabs 02/14/25 04/12/25 Unknown Rx hydralazine 100 mg tablet 100 mg PO TID 04/05/25 04/12/25 Unknown History losartan 25 mg tablet 25 mg PO DAILY 04/05/25 04/12/25 Unknown History methocarbamol 500 mg tablet 500 - 1,000 mg PO Q6H PRN Muscle 04/05/25 04/12/25 Unknown History Spasm sumatriptan 20 mg/actuation nasal 20 mg intranasal Q12H PRN Migraine 04/05/25 04/12/25 Unknown History spray Headache Allergies Allergy/AdvReac Type Severity Reaction Status Date / Time NSAIDS (Non-Steroidal Allergy Severe unable to Verified 04/04/25 19:07 Anti-Inflamma take due to kidney disease sertraline (From Zoloft) Allergy Unknown Verified 04/04/25 19:07 Current Medications Generic Name Dose Route Start Last Admin Trade Name Freq PRN Reason Stop Dose Admin Amlodipine Besylate 10 mg 04/12/25 10:00 04/12/25 11:06 Amlodipine 10 Mg Tablet PO 10 mg DAILY OMAR Administration Divalproex Sodium 500 mg 04/12/25 10:00 04/12/25 11:[address] 500 Mg Tablet PO 500 mg BID OMAR Administration Heparin Sodium (Porcine) 5,000 unit 04/12/25 10:00 04/12/25 11:08 Heparin 5,000 Unit/Ml Inj 1 Ml SUBCUT Not Given Q12H OMAR Hydralazine HCl 100 mg 04/12/25 05:30 04/12/25 05:52 Hydralazine 50 Mg Tablet PO 100 mg ONCE OMAR Administration Nicardipine/Sodium Chloride 20 mg in 200 mls @ 0 mls/hr 04/12/25 06:15 04/12/25 13:15 Cardene IV 5 mg/hr .Q0M OMAR 50 mls/hr Protocol Administration Per Protocol Levetiracetam 500 mg 04/12/25 11:00 04/12/25 12:52 Levetiracetam 500 Mg Tablet PO 500 mg BID OMAR Administration Morphine Sulfate 4 mg 04/12/25 13:13 04/12/25 14:12 Morphine 4 Mg/Ml Sdv 1 Ml IVP 4 mg Q6H PRN Administration SEVERE PAIN Multivitamins 1 each 04/12/25 10:00 04/12/25 12:52 D-Retvqbb-Wmnhuhs C Tablet PO 1 each DAILY OMAR Administration Non-Formulary Medication 1 tab 04/12/25 10:00 04/12/25 12:48 Vit B,A-Em-Tanu-Selen-Vit D3-E [Renaplex-D] PO Not Given DAILY OMAR Ondansetron HCl 4 mg 04/12/25 10:00 04/12/25 11:03 Ondansetron 2 Mg/Ml Sdv 2 Ml IVP 4 mg Q8H PRN Administration vomiting, or N/V if npo Prednisone 5 mg 04/12/25 10:00 04/12/25 12:52 Prednisone 5 Mg Tablet PO 5 mg DAILY OMAR Administration Sevelamer Carbonate 1,600 mg 04/12/25 12:00 04/12/25 12:54 Sevelamer 800 Mg Tablet PO Not Given TIDWM OMAR PFSH Acute PFSH: Medical History Adrenal insufficiency Hypoglycemia CKD (chronic kidney disease) stage V requiring chronic dialysis Generalized anxiety disorder Other stimulant dependence, in remission Problems related to lack of adequate sleep Substance abuse Depression Anxiety Social History (Updated 04/12/25 @ 05:42 by Daron Ayala MD) Smoking and tobacco/nicotine status: unknown if used tobacco/nicotine Quit status (tobacco/nicotine): has tried quititng Number of times tried to quit tobacco: 4 Second hand smoke exposure: No Alcohol intake: never Substance/Drug Use: current Substance/Drug use frequency: Special occassions/opportunity only Additional social history: Patient uses marijuana 1 g every other day he has remote history of some meth use. He reports chewing tobacco and using nicotine pouches but denies smoking cigarettes. He denies suicidal ideation. Patient is companied by his girlfriend and his CODE STATUS is always been full code Vitals/I&O/Wt Last Vital Signs Temp 98.2 F 04/11/25 20:33 Pulse 76 04/12/25 12:42 Resp 12 04/12/25 14:12 BP 169/108 04/12/25 12:42 Pulse Ox 100 04/12/25 12:42 O2 Del Method Room Air 04/12/25 11:40 04/11/25 04/12/2525 22:59 06:59 14:59 Intake Total 100 / 100 400.000 / 400.000 Balance 100 / 100 400.000 / 400.000 Weight last 48 hrs Weight 43.5 kg Weight 43.091 kg Physical Exam Narrative: Patient awake alert, no distress, on room air No JVD HEENT-PERRLA S1-S2 regular rate and rhythm per report Lungs clear per report Abdomen soft nontender per report Extremities no edema Data 04/11/25 21:30 04/12/25 00:08 A&P Assessment and plan (1) ESRD on dialysis: Plan 1. End-stage renal disease: Noncompliant with dialysis, now presents with hypertensive urgency and generalized weakness. Plan for HD today 2. Failed renal transplant: Continue prednisone 5 mg daily which is his home dose 3. Hypertensive urgency: Was started on Cardene drip in the ER, Home medications resumed, blood pressure should improve after HD 4. History of seizure 5. Metabolic acidosis: Mild monitor 6. History of anxiety and depression Patient evaluated using audiovisual cart. Patient consented for dialysis. Time spent 45 minutes PDMP PDMP Reviewed: Not Reviewed Consult Attestations Medical Necessity Statement: Per medicine team Coding Level of Care Code Acute Code for Chg Fwd Diagnoses ESRD on dialysis N18.6; Z99.2
--- NOTE | 2025-04-12 15:51 | PM.MISC ---
Miscellaneous Note Purpose of Documentation: Overnight labs and H&P reviewed. Patient continues to be on a Cardene drip, currently at 2.5. He has received amlodipine 10 mg p.o. daily, hydralazine 100 mg 3 times daily, labetalol 200 mg twice daily, losartan 25 mg daily. Will increase losartan to 75 mg daily. Extra dose of 25 mg p.o. now. Additionally start Imdur 30 mg p.o. daily. Will aim to switch amlodipine to nifedipine. Patient ordered for dialysis today. Additionally needs psychiatry evaluation
[2025-04-12] MEDS: losartan 50 mg Tablet 25 MG PO (17:02)
[2025-04-12] MEDS: lidocaine 2% viscous 15 ML, aluminum-mag hydrox-simethicon 30 ML, sucralfate oral liq 1 GM PO (17:05)
[2025-04-12] MEDS: heparin, porcine 1,000 unit/mL INJ 10 mL 1000 UNIT IV (18:35)
[2025-04-12] MEDS: diphenhydrAMINE 50 mg/mL SDV 1mL IVP (19:48)
[2025-04-12] MEDS: trazodone 50 mg Tablet PO (20:10)
--- NOTE | 2025-04-12 22:37 | XRR_ITS ---
PROCEDURE INFORMATION: Exam: XR Left Hand Exam date and time: 04/12/2025 10:53 PM Age: 24 years old Clinical indication: Pain; Swelling; Hand; Left; Additional info: Pain and swelling TECHNIQUE: Imaging protocol: Radiologic exam of the left hand. Views: 3 or more views. COMPARISON: No relevant prior studies available. FINDINGS: Bones/joints: Acute minimally comminuted fracture of the ulnar aspect of the 2nd metacarpal head. Soft tissues: Soft tissue swelling of the dorsal hand and proximal index finger. XR/XR hand LT min 3V* [id number] IMPRESSION: Acute minimally comminuted fracture of the ulnar aspect of the 2nd metacarpal head.
--- NOTE | 2025-04-12 22:37 | XRR_ITS ---
PROCEDURE INFORMATION: Exam: XR Right Hand Exam date and time: 04/12/2025 10:51 PM Age: 24 years old Clinical indication: Pain; Swelling; Hand; Right; Additional info: Pain and swelling TECHNIQUE: Imaging protocol: Radiologic exam of the right hand. Views: 3 or more views. COMPARISON: No relevant prior studies available. FINDINGS: Bones/joints: No definite acute fracture or dislocation. Tiny hyperdensity adjacent to the hamate and triquetrum on AP view may represent a tiny osseous fragment from unknown donor site versus foreign body material. Soft tissues: See Bones/joints finding. XR/XR hand RT min 3V* [id number] IMPRESSION: 1. No definite acute fracture or dislocation. 2. Tiny hyperdensity adjacent to the hamate and triquetrum on AP view may represent a tiny osseous fragment from unknown donor site versus foreign body material.
[2025-04-12 22:51] LABS: Glucose Point of Care 75 mg/dL (70-110)
[2025-04-12] MEDS: sevelamer 800 mg Tablet 1600 MG PO (22:56)
--- NOTE | 2025-04-12 23:24 | PC.NURSE ---
Called to patient room due to patient being anxious and stating he wanted to leave this facility. Upon entering patient was ranting and stating he was going to rehan this hospital due to them trying to kill him in the [facility] by giving him and other patients the wrong food . Patient rambled about having the names and phone numbers of other contacts and witnesses he met in [facility] and they were all going to rehan this facility for wrong doing and malpractice. Continued rambling about lie detector tests for his case, and his thoughts were very erratic but oriented to person, time, place, situation. Stated he was not being treated appropriately here because nobody had done a thing about his blurred vision, one of the reasons he came to the hospital. He was angry because he thought his vision issues were not mentioned in his chart and he was leaving before this facility does something to him that he won't survive. Explained to patient that blurred vision was listed as a chief complaint when he checked in, but his blood pressure has been very high and it could be related to that. Attempted to get a list of complaints and provide education and treatment plan to patient, but was consistently interrupted before being able to finish explanation. Informed patient he has the right to leave against medical advice and patient stated he was going to look for a ride so he could leave. Spoke with Dr. Ayala and made aware of above complaints, no pipe testing technician on staff, MD stated that could be addressed tomorrow if he continued to be concerned. Also stated if patient was alert and oriented, dialysis completed, and patient wants to leave he if free to do so. Contacted warehouse supervisor 3rd shift and made aware. Discussed with Mr Sainz Dr. Ayala treatment plan. Reiterated that vision blurring was listed as a complaint, but I could not guarantee he could be seen. Patient continued to be argumentative and stated that he had seen one previously and they told him his vision would be blurry because of his blood pressure, but he wanted to make sure we at this facility weren't messing him up because he was going to rehan us. Also made aware that if he wanted to leave since he is alert and oriented he would be able to do so. It would be advised that he stays, as his blood pressure was 190's/130's and if he left without treatment he could . When asked if he understood his risks to his life and his health patient stated I understand, but I don't trust you guys . AMA paperwork offered, and patient stated I'm not signing that so you guys aren't responsible for messing up. Nice try, I'm not signing that. I want to go in an ambulance to another hospital that will take care of me. Patient then stated that nobody had noticed the swelling in his hand and he could barely move it. Patient had been moving hand freely throughout entire conversation, holding his phone intermittently and voiced no complaints until that time. Spoke with Dr. Ayala again and informed that patient wanted to be transferred. Discussed his needs, and ultimately this hospital is able to provide the services for his care, so unable to transfer. Discussed vision and Dr. Ayala asked to do bedside vision exam, and approved xrays of hands. Informed patient of inability to transfer tonight, and was agreeable to stay for the night and allow treatment. Xrays done of bilateral hands as patient requested. Limited bedside vision exam as follows At 10 feet both eyes read through line 8 with two errors At 10 feet right eye, read through line 6 no errors At 10 feet left eye, read through line 6 with no errors Following x rays and eye exam, patient began to calm and speak in more reasonable tone, less confrontational, and more receptive to nurses in this unit. Stated again he had seen an pipe testing technician and knew blurred vision was related to uncontrolled blood pressure (per his pipe testing technician) but he was just sad because he didn't want to go blind. Explained to patient that it was not in my scope of practice to provide any kind of professional opinion regarding his vision, but he was able to read that exact same in both eyes individually at 10 feet. Patient was more calm and stated he appreciated being heard and he would calm down and quit giving us such a hard time . Snacks then provided as patient asked, and laid down to sleep.
[2025-04-13] VITALS (109 sets, daily range): BP systolic 127–210; BP diastolic 78–135; PULSE 73–100; RESP 10–31; TEMP 36.6–36.9; O2SAT 86–99
[2025-04-13] MEDS: acetaminophen 325 mg Tablet 650 MG PO (00:20)
[2025-04-13] MEDS: CLONazepam 1 mg Tablet PO ×2 (00:20→12:09)
[2025-04-13] MEDS: nicardipine 20 MG/200 ML PREMIX 25 MG IV (01:11)
[2025-04-13 05:53] LABS: Anion Gap 23.5 (5-19); Blood Urea Nitrogen 33 mg/dL (6-20); Carbon Dioxide 24 mmol/L (22-29); Chloride 98 mmol/L (98-107); Creatinine Clr Calc Pharmacy 6.7388; Glomerular Filtration Rate 6.2 mL/min (90-130); Glucose 86 mg/dL (65-115); Magnesium 2.9 mg/dL (1.7-2.3); Osmolality Calculated 299 mOsm/kg (285-295); Phosphorus 5.9 mg/dL (2.5-4.5); Potassium 4.5 mmol/L (3.5-5.1); Sodium 141 mmol/L (136-145)
--- NOTE | 2025-04-13 06:21 | P.NPUHP_ITS ---
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
[2025-04-13] MEDS: nicardipine 20 MG/200 ML PREMIX 500 MG IV (06:29)
[2025-04-13 07:47] LABS: Glucose Point of Care 93 mg/dL (70-110)
[2025-04-13] MEDS: predniSONE 5 mg Tablet PO (08:22)
[2025-04-13] MEDS: isosorbide mononitrate ER 30 mg Tablet PO (08:23)
[2025-04-13] MEDS: HYDROcodone-acetaminophen 5-325 mg Tablet 1 TAB PO (08:23)
[2025-04-13] MEDS: sevelamer 800 mg Tablet 1600 MG PO ×3 (08:23→17:17)
[2025-04-13] MEDS: hyDRALAzine 50 mg Tablet 100 MG PO (08:24)
[2025-04-13] MEDS: levETIRAcetam 500 mg Tablet PO ×2 (08:24→17:17)
[2025-04-13] MEDS: divalproex DR 500 mg Tablet PO ×2 (08:24→17:17)
[2025-04-13] MEDS: pantoprazole DR 40 mg Tablet PO (08:24)
[2025-04-13] MEDS: losartan 50 mg Tablet 75 MG PO (08:25)
[2025-04-13] MEDS: labetalol 200 mg Tablet PO ×2 (08:25→17:17)
--- NOTE | 2025-04-13 08:33 | PC.NURSE ---
Addendum entered by Doroteo Mcghee RN 04/13/25 11:56: After speaking with AOC, patient was then agreeable to stay for treatment and took PO medications. Original Note: Upon morning assessment, right AC IV was infiltrated. NUrse removed IV. Was uncussessful at starting another. Nurse called access nurse and he was also unable to start a new IV despite using ultrasound. Access nurse states that he would be hesitatnt attempting a midline due to infiltration and access nurse believes that he would likely be unsuccesful with placement. Nurse alerted Dr Lange to no IV access. Cardene drip is currently off. Dr lange has changed pain medicaiton form IV morphine to PO hydrocodone. States new IV is not needed. Patient has complaints of pain this morning. Unable to give the IV morphine due to no access, nurse offered hydrocodone. Patient has become upset by this, he wants IV morphine specifically. He is now refusing all morning medications, and he has refused his oral blood pressure medications as well. He states that he may leave AMA but wants to speak to a patient advocate first. Nurse alerted supervisor [employer] of the patient advocate request.
--- NOTE | 2025-04-13 09:16 | US_ITS ---
WS: [id number] ULTRASOUND SOFT TISSUES LEFT cervical chain. HISTORY: swelling over the posterior left neck ? lipoma COMPARISON: None available. TECHNIQUE: 2-D and color Doppler imaging is submitted. Ultrasound directed over the posterior LEFT neck. There is no mass or soft tissue thickening identified. No visible lipoma. US/US soft tissue head neck [id number] IMPRESSION: Negative ultrasound posterior LEFT neck.
--- NOTE | 2025-04-13 09:19 | PM.PN ---
Subjective Subjective: The patient was seen and examined in the ICU. Patient feels better after dialysis yesterday. However the patient is upset that he is not getting IV pain medication. He has back and neck pain. He is able to move all extremities. He would like to go home. He denies shortness of breath. Medications: Reviewed: Yes Medication Review Details: Current Medications Acetaminophen (Acetaminophen 325 Mg Tablet) 650 mg PO Q6H PRN PRN Reason: Mild/Mod Pain Or Temp >/= 101 Last Admin: 04/13/25 00:20 Dose: 650 mg Hydrocodone Bitart/Acetaminophen (Hydrocodone-Acetaminophen 5-325 Mg Tablet) 1 tab PO Q4H PRN PRN Reason: MODERATE PAIN Last Admin: 04/13/25 08:23 Dose: 1 tab Clonazepam (Clonazepam 1 Mg Tablet) 1 mg PO BID PRN PRN Reason: ANXIETY Last Admin: 04/13/25 00:20 Dose: 1 mg Divalproex Sodium (Divalproex Dr 500 Mg Tablet) [address] [facility] Last Admin: 04/13/25 08:24 Dose: 500 mg Heparin Sodium (Porcine) (Heparin 5,000 Unit/Ml Inj 1 Ml) 5,[address] [facility] Last Admin: 04/12/25 22:09 Dose: Not Given Hydralazine HCl (Hydralazine 50 Mg Tablet) [address] [facility] Last Admin: 04/13/25 08:24 Dose: 100 mg Nicardipine/Sodium Chloride (Cardene) 20 mg in 200 mls @ 0 mls/hr IV .Q0M [facility]; Protocol Last Admin: 04/13/25 06:29 Dose: 50 mg/hr, 500 mls/hr Sodium Chloride (Sodium Chloride 0.9%) 1,000 mls @ 0 mls/hr IV .Q0M PRN PRN Reason: hypotension or symptomatic Albumin Human (Albumin) 12.5 gm in 50 mls @ 60 mls/hr IV PRN PRN PRN Reason: Hypotension and/or symptomatic Isosorbide Mononitrate (Isosorbide Mononitrate Er 30 Mg Tablet) [address] [facility] Last Admin: 04/13/25 08:23 Dose: 30 mg Labetalol HCl (Labetalol 200 Mg Tablet) [address] [facility] Last Admin: 04/13/25 08:25 Dose: 200 mg Levetiracetam (Levetiracetam 500 Mg Tablet) [address] [facility] Last Admin: 04/13/25 08:24 Dose: 500 mg Losartan Potassium (Losartan 50 Mg Tablet) [address] [facility] Last Admin: 04/13/25 08:25 Dose: 75 mg Methocarbamol (Methocarbamol 500 Mg Tablet) 500 - 1,000 mg PO Q6H PRN PRN Reason: Muscle Spasm Morphine Sulfate (Morphine 4 Mg/Ml Sdv 1 Ml) 4 mg IVP Q6H PRN PRN Reason: SEVERE PAIN Last Admin: 04/12/25 23:17 Dose: 4 mg Nifedipine (Nifedipine Er (24 Hr) 30 Mg Tablet) [address] [facility] Non-Formulary Medication (Sumatriptan) 20 mg INTRANASAL Q12H PRN PRN Reason: Migraine Headache Ondansetron HCl (Ondansetron 2 Mg/Ml Sdv 2 Ml) 4 mg IVP Q8H PRN PRN Reason: vomiting, or N/V if npo Last Admin: 04/12/25 11:03 Dose: 4 mg Pantoprazole Sodium (Pantoprazole Dr 40 Mg Tablet) [address] [facility] Last Admin: 04/13/25 08:24 Dose: 40 mg Prednisone (Prednisone 5 Mg Tablet) [address] [facility] Last Admin: 04/13/25 08:22 Dose: 5 mg Sevelamer Carbonate (Sevelamer 800 Mg Tablet) 1,[address] [facility] Last Admin: 04/13/25 08:23 Dose: 1,600 mg Trazodone HCl (Trazodone 50 Mg Tablet) [address] [facility] Last Admin: 04/12/25 20:10 Dose: 50 mg Vitals/I&O/Wt Last Vital Signs Temp 98.1 F 04/13/25 04:00 Pulse 94 04/13/25 04:45 Resp 14 04/13/25 04:45 BP 185/120 04/13/25 08:25 Pulse Ox 97 04/13/25 01:25 O2 Del Method Room Air 04/12/25 11:40 04/12/25 04/13/25 04/13/25 22:59 06:59 14:59 Intake Total 165.000 / 565.000 132.5 / 697.500 Balance 165.000 / 565.000 132.5 / 697.500 Weight last 48 hrs Weight 43.545 kg Weight 43.5 kg Weight 43.091 kg Physical Exam Narrative: The patient is comfortable sitting up in bed no apparent distress. Vital signs noted blood pressure elevated but better than yesterday. HEENT normocephalic atraumatic. Neck is supple no JVP. Lungs are clear to auscultation. Heart is regular no rubs or gallops. Abdomen is soft positive bowel sounds. Extremities no edema positive AV fistula. Neuro awake alert oriented x 3 Data 04/11/25 21:30 04/13/25 05:00 A&P Assessment and plan (1) ESRD on hemodialysis: 24-year-old man history of failed renal transplant. Patient was here last week and was discharged on the . The patient did not go to dialysis after discharge and then came back in yesterday with severe hypertension not feeling well nausea vomiting. The patient was on a Cardene drip which is now off patient dialysis. Patient is concerned that he is not being treated for his pains. 1. ESRD: Repeat hemodialysis for 3 and half hours as tolerated try to remove 2 L on the 3K bath. If the patient refuses dialysis send there is no emergent need for today. I explained to the patient that if he misses frequent dialysis he is at increased cardiovascular risk. However with dialysis he can live a long and productive life. Patient is also encouraged to go to dialysis as an outpatient. 2. Hypertension would continue amlodipine 10 mg daily or nifedipine XL, labetalol 200 mg twice daily. I do not know if discharging him on losartan is a good idea as he misses dialysis frequently and I am afraid he can become hyperkalemic. Similarly I would avoid spironolactone. The patient is currently on hydralazine which I think will be difficult for him to take 3 times daily. 3. Would consider giving the patient Lokelma on discharge as he misses dialysis frequently and has episodes of hyperkalemia. 4. Appreciate psychiatry helping us out. 5. Hemoglobin acceptable. Patient seen and examined with a nurse using audiovisual equipment. Patient consented to telehealth and to dialysis. Plan See above, dialysis today treat blood pressure. PDMP PDMP Reviewed: Not Reviewed Attestations Medical Necessity Statement*: Hypertensive urgency, end-stage renal disease Time Spent in Patient Care: 16 - 35 minutes (>than 50% of time spent in counselling and/or direct pt care on unit). Coding Level of Care Code Acute Code for g Fwd Diagnoses ESRD on hemodialysis N18.6; Z99.2
[2025-04-13] MEDS: methocarbamol 500 mg Tablet PO (10:44)
[2025-04-13] MEDS: NIFEdipine ER (24 hr) 30 mg Tablet 90 MG PO (10:45)
[2025-04-13] MEDS: oxyCODONE-APAP 5-325 mg Tablet 1 TAB PO ×2 (12:14→17:17)
--- NOTE | 2025-04-13 13:00 | PC.NURSE ---
Off floor for dialysis
[2025-04-13] MEDS: diphenhydrAMINE 50 mg/mL SDV 1mL 25 MG IVP (13:55)
[2025-04-13] MEDS: heparin, porcine 1,000 unit/mL INJ 10 mL 1000 UNIT IV (16:41)
--- NOTE | 2025-04-13 16:49 | PM.PN ---
Vitals/I&O/Wt Last Vital Signs Temp 97.9 F 04/13/25 08:15 Pulse 87 04/13/25 09:30 Resp 14 04/13/25 09:30 BP 193/124 04/13/25 09:30 Pulse Ox 98 04/13/25 08:15 O2 Del Method Room Air 04/13/25 08:15 04/13/25 04/13/25 04/13/25 06:59 14:59 22:59 Intake Total 132.5 / 697.500 Balance 132.5 / 697.500 Weight last 48 hrs Weight 43.545 kg Weight 43.5 kg Weight 43.091 kg Data 04/11/25 21:30 04/13/25 05:00 A&P PDMP PDMP Reviewed: Not Reviewed Coding Level of Care Code Acute Code for Chg Lynsey
[2025-04-13 19:18] LABS: Glucose Point of Care 95 mg/dL (70-110)
--- NOTE | 2025-04-13 19:38 | P.DS_ITS ---
Discharge Providers Date of Admission: 04/12/25 04:00 Date of Discharge: April 13, 2025 Attending Provider at Admission: Daron Ayala MD Attending Provider at Discharge: Melissa Lange MD Primary Care Provider: Renetta Cole NP Diagnoses at Discharge Discharge Diagnosis (1) ESRD on hemodialysis: Status: Acute Reason for Visit Reason for Visit: vision loss, back pain, BHANDARI, missed dialysis appts Hospital Course Hospital Course Vance Sainz is a 24 year old male With past medical history of end-stage renal disease on dialysis per Thursday schedule, failed kidney transplant,depression, substance abuse, vitamin insufficiency, h/o seizure presented to the emergency department due to complaints of headache and neck pain. Patient missed dialysis on Thursday by choice as he feels hopeless. His significant other reported that patient has not taken antiepileptics and not gone for dialysis. In the ED patient was noted to be hypertensive with a blood pressure systolic in the 230s range. He was started on Cardene drip and admitted to ICU.Oral anti hypertensives were adjusted as follows and cardene drip weaned off: Amlodipine was discontinued, nifedipine was started as a new medication, Labetalol and hydralazine were continued, Imdur 30mg was added and Losartan was discontinued due to h/o non compliance with dialysis and increased risk of hyperkalemia. His BP did well with these interventions and this evening BP is at 139/82 mmHG. He received 2 sessions of dialysis in the hospital and is recommended to continue dialysis tomorrow. He reported chronic headache and neck pain for which he requested referral to pain management.There was noted to be mild swelling in the posterior neck region which was reducible on laying flat. This was suspected to be a lipoma, US was performed which did not show any abnormalities in the area. Patient declined MRI due to claustrophobia. Patient and mother state that he had an MRI at a recent admission in [place] where no obvious source was found for the headache . He is encouarged to follow through with pain management referral. He feels well this evening and wishes to be discharged home. He is clinically improved, ambulating in the hallway without issues. no visual disturbances at this time. Physical Exam Narrative: General: No acute distress, AO x3 HEENT: PERRLA, pupils bilaterally equal and reactive, pallors not present Chest: Normal vesicular breath sounds, no added sounds, equal good air entry bilaterally CVS: S1-S2 regular, no murmurs, no tachycardia, no gallops, no rubs Abdomen: Soft, nontender, no organomegaly, bowel sounds present Neuro: No focal deficits, no facial deformity, AO x3, power 5/5 in all limbs Discharge Data Studies Completed and Pending Completed Studies During Hospitalization Category Date Time Status XR hand LT min 3V* [id number] Routine Exams 04/12/25 22:37 Completed XR hand RT min 3V* [id number] Routine Exams 04/12/25 22:37 Completed US soft tissue head neck [id number] Routine Ultrasound 04/13/25 09:16 Completed Pending at discharge Category Date Time Status Basic Metabolic Panel AM LABS Lab 04/14/25 04:00 Ordered Basic Metabolic Panel AM LABS Lab 04/15/25 04:00 Ordered Beta-Hydroxybutyrate Stat Lab 04/11/25 22:35 Received Magnesium AM LABS Lab 04/14/25 04:00 Ordered Magnesium AM LABS Lab 04/15/25 04:00 Ordered Phosphorus AM LABS Lab 04/14/25 04:00 Ordered Phosphorus AM LABS Lab 04/15/25 04:00 Ordered Radiology Impressions Hand X-Ray 04/12/25 22:37 IMPRESSION: 1. No definite acute fracture or dislocation. 2. Tiny hyperdensity adjacent to the hamate and triquetrum on AP view may represent a tiny osseous fragment from unknown donor site versus foreign body material. Head/Neck Ultrasound 04/13/25 09:16 IMPRESSION: Negative ultrasound posterior LEFT neck. Laboratory Results WBC 4.76 10^3/uL (3.29-11.43) 04/11/25 21:30 RBC 3.78 10^6/uL (3.85-5.65) L 04/11/25 21:30 Hgb 11.70 g/dL (11.27-16.99) 04/11/25 21:30 Hct 36.2 % (37-53) L 04/11/25 21:30 MCV 95.8 fl (82-101) 04/11/25 21:30 MCH 31.0 pg (27-33) 04/11/25 21:30 MCHC 32.3 g/dL (30-55) 04/11/25 21:30 RDW 16.3 % (12.1-15.1) H 04/11/25 21:30 Plt Count 106 10^3/cmm (157-399) L 04/11/25 21:30 MPV 10.8 fL (7.4-10.4) H 04/11/25 21:30 Neut % (Auto) 64.2 % 04/11/25 21:30 Lymph % (Auto) 14.9 % 04/11/25 21:30 [place] % (Auto) 13.9 % 04/11/25 21:30 Eos % (Auto) 5.5 % 04/11/25 21:30 Baso % (Auto) 1.3 % 04/11/25 21:30 Neut # (Auto) 3.06 10^3/uL (1.8-7.7) 04/11/25 21: Lymph # (Auto) 0.7 10^3/uL (0.8-4.8) L 04/11/25 21:30 [place] # (Auto) 0.7 10^3/uL (0.2-0.9) 04/11/25 21:30 Eos # (Auto) 0.3 10^3/uL (0.0-0.8) 04/11/25 21:30 Baso # (Auto) 0.1 10^3/uL (0.0-0.1) 04/11/25 21: Nucleated RBC % (auto) 0 % 04/11/25 21: Nucleated RBCs # 0.0 /100WBC 04/11/25 21:30 Specimen Type Venous 04/11/25 22:17 Sample Site Not Reportable 04/11/25 22:17 Paul Test N/a 04/11/25 22:17 VBG pH 7.36 (7.32-7.42) 04/11/25 22:17 VBG pCO2 31.4 mmHg (41-51) L 04/11/25 22:17 VBG pO2 116.0 mmHg (25-40) H 04/11/25 22:17 VBG HCO3 17.9 mmol/L (24-28) L 04/11/25 22:17 VBG Base Excess -6.5 mmol/L (-3.0-3.0) L 04/11/25 22:17 VBG Hematocrit 36.2 % (42-52) L 04/11/25 22:17 O2 Delivery Device Not Reportable 04/11/25 22:17 Plodder Operator ID [email or web address] 04/11/25 22:17 Sodium 141 mmol/L (136-145) 04/13/25 05:00 Potassium 4.5 mmol/L (3.5-5.1) 04/13/25 05:00 Chloride 98 mmol/L (98-107) 04/13/25 05:00 Carbon Dioxide 24 mmol/L (22-29) 04/13/25 05:00 Anion Gap 23.5 (5-19) H 04/13/25 05:00 BUN 33 mg/dL (6-20) H 04/13/25 05:00 Creatinine 10.4 mg/dL (0.7-1.2) H* 04/13/25 05:00 GFR Calculation 6.2 mL/min (90-130) L 04/13/25 05:00 Glucose 86 mg/dL (65-115) 04/13/25 05:00 POC Glucose 95 mg/dL (70-110) 04/13/25 19:05 Calculated Osmolality 299 mOsm/kg (285-295) H 04/13/25 05:00 Calcium 9.0 mg/dL (8.5-10.5) 04/13/25 05:00 Phosphorus 5.9 mg/dL (2.5-4.5) H 04/13/25 05:00 Magnesium 2.9 mg/dL (1.7-2.3) H 04/13/25 05:00 Total Bilirubin 0.3 mg/dL (0.15-1.2) 04/11/25 21:30 AST 11 U/L (0-40) 04/11/25 21:30 ALT 7 U/L (0-41) 04/11/25 21:30 Alkaline Phosphatase 76 U/L (40-130) 04/11/25 21:30 Total Protein 6.8 g/dL (6.6-8.7) 04/11/25 21:30 Albumin 4.5 g/dL (3.5-5.2) 04/11/25 21:30 Globulin 2.3 g/dL (1.3-4.6) 04/11/25 21:30 Vitals Last Vital Signs Temp 98.2 F 04/13/25 19:26 Pulse 78 04/13/25 19:26 Resp 15 04/13/25 19:26 BP 139/82 04/13/25 19:26 Pulse Ox 98 04/13/25 19:26 O2 Del Method Room Air 04/13/25 08:15 Discharge Plan Discharge Patient Disposition: Home Condition: Stable Prescriptions: New oxycodone 5 mg capsule 5 mg PO Q8H PRN (Reason: pain) 5 Days Qty: 15 0RF pantoprazole 40 mg Tablet,Delayed Release (Dr/Ec) 40 mg PO DAILY 30 Days Qty: 30 0RF nifedipine 30 mg Tablet Extended Release 24hr 90 mg PO DAILY 30 Days Qty: 30 0RF isosorbide mononitrate 30 mg Tablet Extended Release 24 Hr 30 mg PO DAILY 30 Days Qty: 30 0RF Continued B-complex with vitamin C Tablet 1 tab PO DAILY 30 Days Qty: 30 1RF divalproex 500 mg tablet,delayed release (DR/EC) 500 mg PO BID 30 Days Qty: 60 1RF trazodone 50 mg tablet 50 mg PO BEDTIME levetiracetam 500 mg tablet See Rx Instructions .ROUTE .COMPLEX Rx Instructions: Take 1 Tablet (500 mg) by mouth 2 times daily. If you have dialysis before 9 AM, please wait to take your morning dose of Keppra until after dialysis. sevelamer carbonate 800 mg tablet 800 - 1,600 mg PO TID prednisone 5 mg tablet 5 mg PO DAILY Qty: 60 2RF Rx Instructions: Take 10 mg for 4 weeks, then 5 mg daily sumatriptan 20 mg/actuation spray,non-aerosol 20 mg INTRANASAL Q12H PRN (Reason: Migraine Headache) methocarbamol 500 mg tablet 500 - 1,000 mg PO Q6H PRN (Reason: Muscle Spasm) hydralazine 100 mg tablet 100 mg PO TID labetalol 100 mg tablet 200 mg PO BID RenaPlex-D 800 mcg-12.5 mg -2,000 unit tablet 1 tab PO DAILY clonazepam [Klonopin] 1 mg tablet 1 mg PO BID PRN (Reason: anxiety) Qty: 10 0RF Discontinued losartan 25 mg tablet 25 mg PO DAILY amlodipine 10 mg tablet 10 mg PO DAILY Discharge Orders: Discharge Order (Routine); Ordered 04/13/25 Ordered By: Melissa Lange Referrals: Rneetta Cole NP [Primary Care Provider, Nurse Practitioner] - 4-7 days Referral Note: Please call for an follow-up appointment with 4 to 7 days. Thank you! Barrett Arreola MD [Physician, Pain Management] Discharge Diet: Usual diet Discharge Activity: Resume usual activity Patient Instructions: Opioid Safety, Patient Portal & [facility] Instructions Activity Restrictions/Additional Instructions: please keep your dialysis per schedule and take all your medications as prescribed. Do not miss your seziure medication Discharge Attestations Time Spent in Discharge Care*: greater than 30 min Status at Discharge: Behavioral status at discharge: [facility] , Quality Metrics Clinical Quality Measures [ No reported AMI, CVA or VTE this stay] Coding Level of Care Code Acute Code for Chg Fwd Diagnoses ESRD on hemodialysis N18.6; Z99.2
[2025-04-13] MEDS: morphine 4 mg/mL SDV 1 mL IVP (20:01)
[2025-04-15 23:39] LABS: Beta-Hydroxybutyrate 2.74 mmol/L
== END 2025-04-13 20:47 | disposition home or self-care (01) | DRG 682 ==
LOC: ER 04-12 04:06 → ER IP 04-12 05:13 → ICU 04-12 10:10 → CSU 04-13 11:53
PROVIDERS: Admitting Provider Internal Medicine; Emergency Provider Student in an Organized Health Care Education/Training Program; PCP Nurse Practitioner Family; Visit Provider Student in an Organized Health Care Education/Training Program
DX: I12.0 Hypertensive chronic kidney disease with stage 5 chronic kidney disease or end stage renal disease (principal); N18.6 End stage renal disease; E87.20 Acidosis, unspecified; T86.11 Kidney transplant rejection; F33.9 Major depressive disorder, recurrent, unspecified; I16.0 Hypertensive urgency; Z99.2 Dependence on renal dialysis; Z91.158 Patient's noncompliance with renal dialysis for other reason; R56.9 Unspecified convulsions; T42.6X6A Underdosing of other antiepileptic and sedative-hypnotic drugs, initial encounter; Z91.128 Patient's intentional underdosing of medication regimen for other reason; F40.240 Claustrophobia; G47.00 Insomnia, unspecified; F41.0 Panic disorder [episodic paroxysmal anxiety]; R00.0 Tachycardia, unspecified; E86.0 Dehydration; Z79.891 Long term (current) use of opiate analgesic; M54.9 Dorsalgia, unspecified; M54.2 Cervicalgia; Z63.9 Problem related to primary support group, unspecified; Z62.820 Parent-biological child conflict; F15.21 Other stimulant dependence, in remission; F17.220 Nicotine dependence, chewing tobacco, uncomplicated
CPT/HCPCS: 36415; 36416; 73130; 76536; 80048; 80053; 82010; 82803; 82962; 83735; 84100; 85025; 90935; 93005; 96365; 96375; 96376; 99285; J0131; J1200; J1644; J1953; J2060; J2270; J2404; J2405; J7030; J7040; J7512; J9999; Q3014

== ENCOUNTER 2025-05-09 21:26 | Emergency (ER) | payer OTHER, MEDICAID, SELFPAY ==
[2025-05-09 21:27] VITALS: BP 200/129; PULSE 75; RESP 16; TEMP 36.6; O2SAT 98; BMI 16.6
--- OUTSIDE RECORDS SUMMARY | 2025-05-09 21:35 | XMS_ITS | Encounter Summary ---
Author Organization [facility], [facility] Address [address] [place] [address] Phone Care Team Providers Care Grip Name Role Phone Unavailable Primary Care Provider Unavailabl e Encounter Details Date Type Department Care Team (Late st Contact Info) Description 08/27/2022 Orders Only [facility] [address] [place] [address] Kidney transplant status Social History Tobacco Use Types Packs/Day Years Used Date Smoking Tobacco: Never Assessed Sex and Gender Information Value Date Recorded Sex Assigned at Not on file Legal Sex Male 12:34 PM EST Gender Identity Not on file Sexual Orientation Not on file documented as of this encounter Plan of Treatment Not on file documented as of this encounter Visit Diagnoses Diagnosis Kidney transplant status documented in this encounter
--- OUTSIDE RECORDS SUMMARY | 2025-05-09 21:35 | XMS_ITS | Encounter Summary ---
Author Organization [facility], [facility] Address [address] [address] Phone Care Team Providers Care Property And Supply Officer Name Role Phone Unavailable Primary Care Provider Unavailabl e Reason for Visit * Reason Comments Med Refill Encounter Details Date Type Department Care Team (Late st Contact Info) Description 04/14/2024 Refill [facility] [address] [facility] [address] [place] [address] Shahriar Byers MD [address] [address] Social History Tobacco Use Types Packs/Day Years Used Date Smoking Tobacco: Never Assessed Sex and Gender Information Value Date Recorded Sex Assigned at Not on file Legal Sex Male 12:34 PM EST Gender Identity Not on file Sexual Orientation Not on file documented as of this encounter Plan of Treatment Not on file documented as of this encounter Visit Diagnoses Not on filedocumented in this encounter
--- OUTSIDE RECORDS SUMMARY | 2025-05-09 21:35 | XMS_ITS | Clinical Summary ---
Author Organization [employer] [employer] [facility], [facility] Address [address] [place] [address] Phone Care Team Providers Care Custom Dressmaker Name Role Phone Unavailable Primary Care Provider Unavailabl e Encounters Date Type Department Care Team Description 05/05/2025 Treatment [facility], [facility] [address] [place] [phone] Saskia Navas NP End stage renal disease; Dependence on renal dialysis 05/03/2025 Refill [facility] [place], [facility] [address] [place] [address] Jasmin Carson MA 05/01/2025 Orders Only [facility] [place] [facility], [facility] [address] [place] [address] Shahriar Byers MD 04/28/[address] [place] [address] Store [facility], [facility] [address] [place] [address] Saskia Navas NP End stage renal disease; Dependence on renal dialysis 04/24/2025 Orders Only [place] [place] [facility], [facility] [address] [place] [address] Shahriar Byers MD 04/19/[address] [place] [address] [facility] [employer] [facility], [facility] [address] [place] [address] Saskia Navas NP End stage renal disease; Dependence on renal dialysis 04/18/2025 Orders Only [place] [facility], [facility] [address] [place] [phone] Shahriar Byers MD 03/29/[address] [place] [address] [facility], [facility] [address] [place] [address] Saskia Navas NP End stage renal disease; Dependence on renal dialysis 03/27/2025 Orders Only [facility], [facility] [address] [place] [address] Shahriar Byers MD 03/22/[address] [place] [address] Store [facility], [facility] [address] [place] [address] Saskia Navas NP End stage renal disease; Dependence on renal dialysis 03/20/2025 [facility], [facility] [address] [place] [phone] Shahriar Byers MD 03/15/[address] [place] [address] [facility], [facility] [address] [place] [phone] Shahriar Byers MD End stage renal disease; Dependence on renal dialysis 03/13/2025 Orders Only [facility], [facility] [address] [place] [address] Shahriar Byers MD 03/08/[address] [place] [address] [facility], [facility] [address] [place] [phone] Saskia Navas, TINO End stage renal disease; Dependence on renal dialysis; 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 03/01/[address] [place] [address] [facility], [facility] [address] [place] [address] Saskia Navas NP End stage renal disease; Dependence on renal dialysis; 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 02/27/2025 Orders Only [facility], [facility] [address] [place] [address] Shahriar Byers MD 02/22/2025 Orders Only [facility], [facility] [address] [place] [address] Shahriar Byers MD 02/22/[address] [place], [place] [address]rology [facility], [facility] [address] [place] [phone] Saskia Navas NP End stage renal disease; Dependence on renal dialysis 02/17/2025 Orders Only [facility], [facility] [address] [place] [address] Shahriar Byers MD 02/15/2025 Orders Only [facility], [facility] [address] [place] [address] Shahriar Byers MD 02/15/2025 [facility] in D[facility] Clinic [address] [place] [address], [facility] [address] [place] [address] Saskia Navas NP 02/15/[address] [place], [place] [address]rology [facility], [facility] [address] [place] [phone] Saskia Navas, TINO End stage renal disease; Dependence on renal dialysis from Last 3 Months Social History Tobacco Use Types Packs/Day Years Used Date Smoking Tobacco: Never Assessed Sex and Gender Information Value Date Recorded Sex Assigned at Not on file Legal Sex Male 12:34 PM EST Gender Identity Not on file Sexual Orientation Not on file Plan of Treatment Health Maintenance Due Date Last Done Comments Hepatitis B Vaccine (1 of 1 - Risk Dialysis 4-dose series) 05/18/2002 05/18/2001, 2000, 2000, Additional history exists Influenza Vaccine (#1) 2025 , 09/15/2019, 09/17/2018, Additional history exists Pneumococcal Vaccine: Peds ( 0 to 5 Years) and At-Risk Patients (6 to 49 Years) (4 of 4 - PCV20 or PCV21) 2050 12/14/2023, 07/27/2017, 08/30/2010, Additional history exists Procedures Procedure Name Priority Date/Time Associated Diagnosis Comments HD KINETICS Routine 05/01/2025 POST CHEMISTRY Routine 05/01/2025 CHEMISTRY Routine 05/01/2025 HEMATOLOGY Routine 05/01/2025 HEMATOLOGY Routine 04/24/2025 HEMATOLOGY Routine 04/18/2025 [facility] Routine 03/27/2025 HD KINETICS Routine 03/27/2025 CHEMISTRY Routine 03/27/2025 POST CHEMISTRY Routine 03/27/2025 HEMATOLOGY Routine 03/27/2025 CHEMISTRY Routine 03/20/2025 HEMATOLOGY Routine 03/20/2025 HEMATOLOGY Routine 03/13/2025 [facility] RESULTS Routine 02/27/2025 HD KINETICS Routine 02/27/2025 POST CHEMISTRY Routine 02/27/2025 TRACE ELEMENTS Routine 02/27/2025 IMMUNO CHEMISTRY Routine 02/27/2025 SPECIAL CHEMISTRY Routine 02/27/2025 CHEMISTRY Routine 02/27/2025 HEMATOLOGY Routine 02/27/2025 CHEMISTRY Routine 02/27/2025 HEMATOLOGY Routine 02/22/2025 CULTURE,BLOOD-2ND SET Routine 02/17/2025 BLOOD CULTURE Routine 02/17/2025 HEMATOLOGY Routine 02/15/2025 from Last 3 Months Results * HD KINETICS (05/01/2025) Only the most recent of3 resultswithin the time period is included. % Urea Reduction 75 65 - 80 % [facility] 05/01/2025 05/03/2025 11: 10 AM CDT Narrative Resulting Agency Comment Specimen source: Plasma Shahriar Byers MD LAB BLOOD ORDERABLES Final Result Performing Organization Address [facility] Co de Phone Number [facility] See order comments or contact performing lab Unknown, [place] * POST CHEMISTRY (05/01/2025) Only the most recent of3 resultswithin the time period is included. BUN Post Dialysis 18 6 - 19 mg/dL [facility] 05/01/2025 05/03/2025 11: 10 AM CDT Narrative [facility] - 05/03/2025 Unless otherwise specified, test(s) performed at: [facility], [address] [place] [id number] YARD JOCKEY: Ryan Singer M.D. For any questions, please call customer service at FREQUENCY:MONTHLY Resulting Agency Comment Specimen source: Plasma Shahriar Byers MD LAB BLOOD ORDERABLES Final Result Performing Organization Address City/[facility]/ZIP Co de Phone Number [facility] See order comments or contact performing lab Unknown, [place] * (ABNORMAL) HEMATOLOGY (05/01/2025) Only the most recent of9 resultswithin the time period is included. Neutrophils 72.2 40.0 - 75.0 % [facility] Lymphocytes Relative 9.2(L) 19.0 - 48.0 % [facility] Monocytes 8.0 3.0 - 10.0 % [facility] Eosinophils Relative 6.7 0.0 - 7.0 % [facility] Basophils Relative 1.2 0.0 - 1.5 % [facility] PHILLIP 2.6 0.0 - 4.0 % [facility] WBC 6.66 4.80 - 10.80 1000/mcL [facility] RBC 3.19(L) 4.70 - 6.10 mill/mcL [facility] Hematocrit 30.4(L) 42.0 - 52.0 % [facility] MCV 95 80 - 100 fl [facility] MCH 32.1(H) 27.0 - 31.0 pg [facility] MCHC 33.6 30.0 - 36.0 g/dL [facility] RDW 19.1(H) 11.5 - 14.5 % [facility] Hemoglobin 10.2(L) 14.0 - 18.0 g/dL [facility] Hemoglobin x 3 30.6(L) 42.0 - 54.0 % [facility] Platelets 156 130 - 400 1000/mcL [facility] 05/01/2025 05/02/2025 12: 37 PM CDT Narrative [facility] - 05/02/2025 Unless otherwise specified, test(s) performed at: [facility], [address] [place] [id number] YARD JOCKEY: Ryan Singer M.D. For any questions, please call customer service at FREQUENCY:MONTHLY Resulting Agency Comment Specimen source: Blood Shahriar Byers MD LAB BLOOD ORDERABLES Final Result [facility] See order comments or contact performing lab Unknown, [place] * (ABNORMAL) [facility] Chemistry (05/01/2025) Only the most recent of5 resultswithin the time period is included. BUN 73(H) 6 - 19 mg/dL [facility] Creatinine 11.48(H) 0.60 - 1.30 mg/dL [facility] BUN/Creatinine Ratio 6.4(L) 10.0 - 20.0 [facility] Sodium 137 136 - 145 mEq/L [facility] Potassium 5.2(H) 3.5 - 5.1 mEq/L [facility] Chloride 97 96 - 108 mEq/L [facility] Bicarbonate (CO2) 21(L) 22 - 29 mEq/L [facility] Calcium 8.8 8.4 - 10.2 mg/dL [facility] Corrected Calcium 8.5 8.4 - 10.2 mg/dL [facility] Comment: Corrected Calcium is not equivalent to measured Ionized Calcium. Phosphorus 10.8(H) 2.6 - 4.5 mg/dL [facility] Calcium Phosphorus Product 95(H) 0 - 54 [facility] Calcium Phosporus Product, Cor 92(H) 0 - 54 [facility] Total Protein 6.3 6.0 - 8.5 g/dL [facility] Albumin 4.4 3.5 - 5.2 g/dL [facility] Globulin, Total 1.9(L) 2.0 - 4.0 g/dL [facility] A/G Ratio 2.3(H) 1.0 - 2.0 [facility] Iron 45 45 - 160 mcg/dL [facility] UIBC 169 155 - 355 mcg/dL [facility] TIBC 214 185 - 515 mcg/dL [facility] Iron Saturation (TSat) 21 20 - 55 % [facility] 05/01/2025 05/02/2025 12: 44 PM CDT Narrative [facility] - 05/02/2025 Unless otherwise specified, test(s) performed at: [facility], [address] [place], [place] [id number] YARD JOCKEY: Ryan Singer M.D. For any questions, please call customer service at FREQUENCY:MONTHLY Resulting Agency Comment Specimen source: Serum us Shahriar Byers MD LAB BLOOD ORDERABLES Final Result [facility] See order comments or contact performing lab Unknown, [place] * [facility] Results (03/27/2025) Only the most recent of2 resultswithin the time period is included. nPCR_HD 0.84 [facility] eNPCR 0.82 [facility] PCR 38.13 [facility] spKt/V Gotch 2.17 [facility] eKt/V Gotch 1.86 [facility] WSTDKT/V 2.8 [facility] eKt/V ([place]) 1.94 [facility] spKt/V (Daugirdas II) 2.24 [facility] eKdrt/V 1.86 [facility] 03/27/2025 03/27/2025 [facility] Ordering Provider LAB BLOOD ORDERABLES Final Result [facility] Contact Performing lab Unknown, [place] * SPECIAL CHEMISTRY (02/27/2025) Pathologist [facility] Folate 4.8 ng/mL [facility] Comment: Reference Range: Deficient: <3.4 ng/mL Indeterminate: 3.4-5.4 ng/mL Normal: >5.4 ng/mL Vitamin D, 25-OH, Total 52.8 30.0 - 100.0 ng/mL [facility] Comment: Please Note: Effective August 17, 2023, the methodology for this test has changed to the [employer] in [employer]. 02/27/2025 03/01/2025 11: 32 AM CDT Narrative Resulting Agency Comment Specimen source: Serum Shahriar Byers MD LAB BLOOD BANK TEST O RDERABLES Final Result [facility] See order comments or contact performing lab Unknown, [place] * IMMUNO CHEMISTRY (02/27/2025) Pathologist [facility] Hep B Surface Ag Negative Negative [facility] Hepatitis B Surface Ab 18 mIU/mL [facility] Comment: The anti-HBs (Hepatitis B surface antibody) is greater than or equal to 10 mIU/mL and implies immunity. The patient has either had an antibody response to HBV vaccination, received a transfusion, or has recovered from HBV infection. For post-vaccination antibody testing guidelines for the general public, refer to MMWR October 10, 2005/Vol.54 (No. 16); 1-23, and for healthcare workers, refer to MMWR October 07, 2013/Vol.62 (No. 10); 1-18. Reference Range: <10 mIU/mL Non-Immune >=10 mIU/mL Immune The magnitude of the measured result above 10 mIU/mL is not indicative of the total amount of antibody present. Hepatitis C Antibody Nonreactive Nonreactive [facility] Comment: No HCV antibody detected. The above test result was obtained using Siemens Centaur XP chemiluminescent method. Results obtained with different assay methods or kits cannot be used interchangeably. S/CO Ratio 0.08 0.00 - 0.79 [facility] Comment: s/co ratio Interpretation Supplemental testing <0.80 Nonreactive No further testing required. 0.80-0.99 Equivocal HCV RNA Quantitative Real-Time PCR is recommended. 1.00->11.00 Reactive HCV RNA Quantitative Real-Time PCR is recommended to distinguish active from resolved cases. 02/27/2025 03/01/2025 11: 32 AM CDT Narrative [facility] - 03/01/2025 Unless otherwise specified, test(s) performed at: [facility] [address] YARD JOCKEY: Ryan Singer M.D. For any questions, please call customer service at FREQUENCY:MONTHLY Resulting Agency Comment Specimen source: Serum us Shahriar Byers MD LAB BLOOD ORDERABLES Edited Result - Final [facility] See order comments or contact performing lab [facility], [place] * TRACE ELEMENTS (02/27/2025) Aluminum <5 0 - 10 mcg/L [facility] Comment: This test was developed and its performance characteristics determined by [facility]. It has not been cleared or approved by the FDA. The laboratory is regulated under CLIA as qualified to perform high complexity testing. This test is used for clinical purposes. It should not be regarded as investigational or for research. 02/27/2025 03/01/2025 10: 15 AM CDT Narrative [facility] - 03/01/2025 Unless otherwise specified, test(s) performed at: [facility] [address] YARD JOCKEY: Ryan Singer M.D. For any questions, please call customer service at FREQUENCY:MONTHLY Resulting Agency Comment Specimen source: Serum Shahriar Byers MD LAB BLOOD ORDERABLES Final Result Performing Organization Address [facility] Co de Phone Number [facility] See order comments or contact performing lab Unknown, [place] * Blood culture (02/17/2025) Culture Result See below [facility] Comment: No Aerobic or Anaerobic Growth after 5 Days of Incubation. 02/17/2025 02/21/2025 9:3 2 AM CDT Narrative [facility] - 02/26/2025 Unless otherwise specified, test(s) performed at: [facility], [address] [place], [place] [id number] YARD JOCKEY: Ryan Singer M.D. For any questions, please call customer service at FREQUENCY:OTHER Resulting Agency Comment Specimen source: Blood/Dialysis Bloodline Shahriar Byers MD LAB MICROBIOLOGY - GE NERAL ORDERABLES Final Result Performing Organization Address [facility] de Phone Number [facility] See order comments or contact performing lab Unknown, [place] * Blood culture (02/17/2025) Culture, Blood See below [facility] Comment: No Aerobic or Anaerobic Growth after 5 Days of Incubation. 02/17/2025 02/21/2025 9:3 2 AM CDT Narrative [facility] - 02/26/2025 Unless otherwise specified, test(s) performed at: [facility], [address] [place] [id number] YARD JOCKEY: Ryan Singer M.D. For any questions, please call customer service at FREQUENCY:OTHER Resulting Agency Comment Specimen source: Blood/FISTULA/GRAFT Shahriar Byers MD LAB MICROBIOLOGY - GE NERAL ORDERABLES Final Result Performing Organization Address [facility] Co de Phone Number [facility] See order comments or contact performing lab Unknown, [place] from Last 3 Months Insurance Medicaid [place] ([id number]) [facility] Medicare
--- OUTSIDE RECORDS SUMMARY | 2025-05-09 21:35 | XMS_ITS | Clinical Summary ---
Author Organization [facility] Address [address] [place] [address] Phone Care Team Providers Care Neck Skewer Name Role Phone Unavailable Primary Care Provider Unavailabl e Allergies Active Allergy Reactions Criticality Noted Date Comments Grapefruit Extract 03/09/2018 Other reaction(s): Other Contraindicated due to medications Nsaids (Non-Steroidal Anti-Inflammatory Drug) High 05/10/2011 Kidney transplant Sertraline Medium 09/14/2019 Other reaction(s): Psychiatric Causes suicidal thoughts. Medications amLODIPine (Norvasc) 10 mg tablet TAKE ONE TABLET BY MOUTH DAILY AT 9PM AT BEDTIME FOR HIGH BLOOD PRESSURE DISORDER 3 Active buPROPion XL (Wellbutrin XL) 150 mg 24 hr tablet TAKE 1 TABLET BY MOUTH EVERY MORNING FOR 30 DAYS 2 Active busPIRone (Buspar) 15 mg tablet TAKE ONE TABLET BY MOUTH TWICE DAILY @ 9AM-5PM 3 Active cholecalciferol (Vitamin D-3) 25 mcg (1,000 unit) capsule Take 0.05 mg by mouth 1 (one) time each day. 1 Active labetaloL (Normodyne) 300 mg tablet 3 Active LORazepam (Ativan) 0.5 mg tablet TAKE 1 (ONE) TABLET BY MOUTH EVERY 6 HOURS NEEDED FOR ANXIETY (USE FOR SEVERE PANIC OR ANXIETY A BACKUP) REASONS: FEELING ANXIOUS 3 Active losartan (Cozaar) 25 mg tablet 3 Active mirtazapine (Remeron) 15 mg tablet TAKE TWO TABLETS BY MOUTH DAILY AT 9PM AT BEDTIME 3 Active mycophenolate (Cellcept) 250 mg capsule TAKE TWO CAPSULES BY MOUTH TWICE DAILY @ 9AM-5PM 3 Active ondansetron ODT (Zofran-ODT) 4 mg disintegrating tablet DISSOLVE ONE TABLET ON THE TONGUE EVERY 6 HOURS NEEDED FOR NAUSEA AND VOMITING (VIAL) 3 Active pantoprazole (ProtoNix) 40 mg EC tablet TAKE ONE TABLET BY MOUTH DAILY AT 9AM 3 Active sodium bicarbonate 650 mg tablet TAKE ONE TABLET BY MOUTH TWICE DAILY @ 9AM & 5PM 3 Active SUMAtriptan (Imitrex) 50 mg tablet TAKE 1 TABLET BY MOUTH AT ONSET OF MIGRAINE. MAY REPEAT ONCE AFTER 2 HOURS IF NEEDED (MAX DAILY DOSE 200 MG / 24 HOURS) (ORIG) 3 Active tacrolimus (Prograf) 0.5 mg capsule TAKE 1 (ONE) CAPSULE BY MOUTH 2 TIMES DAILY 2 Active valGANciclovir (Valcyte) 450 mg tablet Take 450 mg by mouth 1 (one) time each day. 3 Active Social History Tobacco Use Types Packs/Day Years Used Date Smoking Tobacco: Never Assessed PHQ-2 Answer Date Recorded Patient Health Questionnaire-2 Score 0 03/18/2023 Sex and Gender Information Value Date Recorded Sex Assigned at Not on file Legal Sex Male 6:07 AM CDT Gender Identity Not on file Sexual Orientation Not on file Last Filed Vital Signs Vital Sign Reading Time Taken Comments Blood Pressure 164/112 03/18/2023 1:05 PM CDT Pulse 64 03/18/2023 1:05 PM CDT Temperature - - Respiratory Rate - - Oxygen Saturation - - Inhaled Oxygen Concentration - - Weight 52 kg (114 lb 9.6 oz) 03/18/2023 1:05 PM CDT Height - - Body Mass Index - - Plan of Treatment Health Maintenance Due Date Last Done Comments Creatinine Level 2000 Lipid Panel 2000 Potassium Level 2000 MMR Vaccines (1 of 1 - Standard series) 10/12/2001 Varicella Vaccines (1 of 2 - 13+ 2-dose series) 2013 HPV Vaccines (1 - Male 3-dose series) 2015 Pneumococcal Vaccine: 50+ Years (3 of 3 - PCV20 or PCV21) 09/21/2017 07/27/2017, 08/30/2010, 09/21/2003 Pneumococcal Vaccine (3 of 3 - PCV20 or PCV21) 09/21/2017 07/27/2017, 08/30/2010, 09/21/2003 Depression Screening 2018 Social Drivers of Health (SDoH) 2018 Hepatitis B Vaccines (1 of 3 - 19+ 3-dose series) 2019 Medicare Initial AWV [id number] 11/19/2022 COVID-19 Vaccine (1 - 2023- season) 2024 Influenza Vaccine (#1) 2025 , 09/15/2019, 09/17/2018, Additional history exists DTaP,Tdap,and Td Vaccines (7 - Td or Tdap) 07/27/2027 07/27/2017, 02/28/2005, 12/09/2001, Additional history exists Zoster Vaccines (1 of 2) 2050 09/14/2001 RSV Vaccines (1 - 1-dose 75+ series) 2075 HIB Vaccines Aged Out No longer eligi ble based on patient's age to complete this topic Hepatitis A Vaccines Aged Out No long er eligible based on patient's age to complete this topic IPV Vaccines Aged Out No longer eligi ble based on patient's age to complete this topic Meningococcal B Vaccine Aged Out No l onger eligible based on patient's age to complete this topic Meningococcal Vaccine Aged Out No kali samreen eligible based on patient's age to complete this topic Rotavirus Vaccines Aged Out No longer eligible based on patient's age to complete this topic Insurance [facility]
--- OUTSIDE RECORDS SUMMARY | 2025-05-09 21:35 | XMS_ITS | Encounter Summary ---
Author Organization [facility], [facility] Address [address] [place] [address] Phone Care Team Providers Care Nutrition Manager Name Role Phone Unavailable Primary Care Provider Unavailabl e Encounter Details Date Type Department Care Team (Late st Contact Info) Description 05/05/2025 Treatment [facility], [facility] [address] [place] [address] Saskia Navas NP [address] [facility] [address] [facility] [address] [place] [address] End stage renal disease; Dependence on renal dialysis Social History Tobacco Use Types Packs/Day Years Used Date Smoking Tobacco: Never Assessed Sex and Gender Information Value Date Recorded Sex Assigned at Not on file Legal Sex Male 12:34 PM EST Gender Identity Not on file Sexual Orientation Not on file documented as of this encounter Miscellaneous Notes * Dialysis Note - Saskia Navas NP - 05/05/2025 12:00 AM CDT Patient: Vance Sainz, 2000, 24y, M Dialysis Location: [facility] Attending Life Guard: Shahriar Byers Service Date: 05/05/2025 Service Provider: Saskia Navas NP I met face to face with the patient today. 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 Cast is off. No further outburst. Reinforce low phos diet. REviewed dc summary from 04/26 and went over medications with him. I gave him the dc summary med listfor him to review. He missed his appointment for mental health with Jayne Bradley, states he will reschedule. He is supposed to see pain clinic at [facility] for Neck pain. Medications and labs reviewed. HOME MEDICATIONS Home Medications: trazodone 50 mg, by mouth, Take 1 tablet every night at bedtime NOT TAKING 05/05 amlodipine 5 mg, by mouth, Take 1 tablet once a day Sevelamer Carbonate Tablet (Renvela) 800 mg, By Mouth, Take 2 Tablet Three times a day With Meals Take 1-2 tablets po TID with meals. 2 tablets for larger meals and 1 for smaller meals. divalproex 500 mg, by mouth, 1 tablet twice a day B Complex Plus Vitamin C (vitamin b comp and c no.3) 42-74-22-5-300 mg, by mouth, 1 capsule once a day Protonix (pantoprazole) 40 mg, by mouth, Take 1 tablet once a day oxycodone 5 mg, by mouth, 1 tablet every eight hours as needed for pain clonazepam 1 mg, by mouth, Take 1 tablet twice a day as directed hydralazine 100 mg, by mouth, Take 1 tablet three times a day for high blood pressure RenaPlex-D (vit b,k-gc-vsau-selen-vit d3-e) 800 mcg-12.5 mg-2,000 unit, by mouth, Take 1 tablet once a day labetalol 100 mg, by mouth, Take 2 tablet twice a day levetiracetam 500 mg, by mouth, Take 1 tablet twice a day prednisone 5 mg, by mouth, Take 1 tablet once a day Pt. to take 10mg daily for 4wks starting 02/14/2025, then back to 5mg daily. methocarbamol 1,000 mg, by mouth, Take 1 tablet every six hours as needed for cramping sumatriptan 20 mg/actuation, into one nostril, 1 spray every twelve hours as needed Allergies: No Known Allergies LAST HOSPITALIZATION Discharge Diagnosis: I10 Essential (primary) hypertension Admission Date 04/12/25 Discharge Date 04/13/25 DIALYSIS PRESCRIPTION IHD 3x Week Start date: 04/28/25 Dialyzer: 180NRe Optiflux BFR: 400 DFR: Autoflow 2 Potassium: 2.0 Sodium: 137 EDW: 44.8 Duration: 3:45 Calcium: 2.5 Bicarb: 35 Rx updated on: 04/28/2025 TREATMENT ASSESSMENT Comments: 160/97 on rounds. Not taking medications correctly Blood pressure elevated. No changes indicated. BP Stand Pre 05/03/2025: 150/98 05/01/2025: 181/121 04/28/2025: 155/92 BP Sit Pre 05/03/2025: 155/97 05/01/2025: 181/125 04/28/2025: 154/87 BP Stand Post 05/03/2025: 144/88 05/01/2025: 166/97 04/28/2025: 130/78 BP Sit Post 05/03/2025: 152/86 05/01/2025: 149/98 04/28/2025: 105/86 Tx Duration 05/03/2025: 3:45 05/01/2025: 2:22 04/28/2025: 3:48 Missed Treatments 1 - last 30 days 2 - last 60 days 04/10 - recent FLUID ASSESSMENT Comments: Fluid status acceptable. Interdialytic weight gain acceptable. No changes indicated. EDW (kg) 05/03/2025: 44.8 05/01/2025: 44.8 04/28/2025: 45.4 Weight Pre (kg) 05/03/2025: 46.9 05/01/2025: 48.0 04/28/2025: 47.0 Weight Post (kg) 05/03/2025: 44.9 05/01/2025: 46.0 04/28/2025: 44.8 PWV (kg) 05/03/2025: 0.1 05/01/2025: 1.2 04/28/2025: -0.6 UF Rate (mL/kg/hr) 05/03/2025: 11.9 05/01/2025: 18.4 04/28/2025: 12.9 ACCESS ASSESSMENT Access Type: AVFistula Access SubType: Standard Access Status: Active (In Use) - 08/14/2023 Access Location: Right Forearm Created: --/--/---- Flow 05/03/2025: 842 04/28/2025: 576 03/24/2025: 1290 Vascular access reviewed. Current access is permanent and functioning well. ANEMIA ASSESSMENT HGB at goal. Treatment protocol ordered. 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 Resumed dialysis in 2022 at [facility]. Patient is stable. Patient discussed with nursing. Patient data updated 05/05/2025 at 1:06 PM Signed By: Saskia Navas NP on 05/05/2025 1:09:24 PM documented in this encounter Plan of Treatment Not on file documented as of this encounter Visit Diagnoses Diagnosis End stage renal disease Dependence on renal dialysis documented in this encounter
--- OUTSIDE RECORDS SUMMARY | 2025-05-09 21:35 | XMS_ITS | Encounter Summary ---
Author Organization [facility], [facility] Address [address] [place] [address] Phone Care Team Providers Care Machine Oiler Name Role Phone Unavailable Primary Care Provider Unavailabl e Encounter Details Date Type Department Care Team (Late st Contact Info) Description 05/01/2025 Orders Only [facility] [address] [place] [address] Shahriar Byers MD [address] [facility] [address] [place] [address] Social History Tobacco Use Types Packs/Day Years Used Date Smoking Tobacco: Never Assessed Sex and Gender Information Value Date Recorded Sex Assigned at Not on file Legal Sex Male 12:34 PM EST Gender Identity Not on file Sexual Orientation Not on file documented as of this encounter Plan of Treatment Not on file documented as of this encounter Procedures Procedure Name Priority Date/Time Associated Diagnosis Comments HD KINETICS Routine 05/01/2025 POST CHEMISTRY Routine 05/01/2025 HEMATOLOGY Routine 05/01/2025 CHEMISTRY Routine 05/01/2025 documented in this encounter Results * HD KINETICS (05/01/2025) % Urea Reduction 75 65 - 80 % [facility] 05/01/2025 05/03/2025 11: 10 AM CDT Narrative Resulting Agency Comment Specimen source: Plasma Shahriar Byers MD LAB BLOOD ORDERABLES Final Result [facility] See order comments or contact performing lab Unknown, [place] * POST CHEMISTRY (05/01/2025) Pathologist [facility] BUN Post Dialysis 18 6 - 19 mg/dL [facility] 05/01/2025 05/03/2025 11: 10 AM CDT Narrative [facility] - 05/03/2025 Unless otherwise specified, test(s) performed at: [facility], [address] [place], [place] [id number] [employer]OUNT[employer] HUNTER: Ryan Singer M.D. For any questions, please call customer service at FREQUENCY:MONTHLY Resulting Agency Comment Specimen source: Plasma Shahriar Byers MD LAB BLOOD ORDERABLES Final Result Performing Organization Address City/[facility]/ZIP Co de Phone Number [facility] See order comments or contact performing lab Unknown, [place] * (ABNORMAL) [facility] (05/01/2025) BUN 73(H) 6 - 19 mg/dL [facility] [...] 05/02/2025 Unless otherwise specified, test(s) performed at: [facility], [address] [place] [id number] [employer] HUNTER: Ryan Singer M.D. For any questions, please call customer service at FREQUENCY:MONTHLY Resulting Agency Comment Specimen source: Serum Shahriar Byers MD LAB BLOOD ORDERABLES Final Result [facility] See order comments or contact performing lab Unknown, [place] * (ABNORMAL) HEMATOLOGY (05/01/2025) Neutrophils 72.2 40.0 - 75.0 % [facility] [...] Labs Platelets 156 130 - 400 1000/mcL [facility] 05/01/2025 05/02/2025 12: 37 PM CDT Narrative [facility] - 05/02/2025 Unless otherwise specified, test(s) performed at: [facility], [address] [place] [id number] [employer] HUNTER: Ryan Singer M.D. For any questions, please call customer service at FREQUENCY:MONTHLY Resulting Agency Comment Specimen source: Blood us Shahriar Byers MD LAB BLOOD ORDERABLES Final Result [facility] See order comments or contact performing lab Unknown, [place] documented in this encounter Visit Diagnoses Not on filedocumented in this encounter
--- OUTSIDE RECORDS SUMMARY | 2025-05-09 21:35 | XMS_ITS | Encounter Summary ---
Author Organization [facility] Address [address] [address] Phone Care Team Providers Care Methods Examiner Name Role Phone Unavailable Primary Care Provider Unavailabl e Encounter Details Date Type Department Care Team (Late st Contact Info) Description 04/01/2023 Telephone [facility] [address] [address] Shawn Betancourt MD [address] [place] [address] Social History Tobacco Use Types Packs/Day Years Used Date Smoking Tobacco: Never Assessed PHQ-2 Answer Date Recorded Patient Health Questionnaire-2 Score 0 03/18/2023 Sex and Gender Information Value Date Recorded Sex Assigned at Not on file Legal Sex Male 6:07 AM CDT Gender Identity Not on file Sexual Orientation Not on file COVID-19 Exposure Response Date Recorded In the last 10 days, have yo u been in contact with someone who was confirmed or suspected to have Coronavirus/COVID-19? No / Unsure 03/18/2023 12:54 PM CDT documented as of this encounter Plan of Treatment Not on file documented as of this encounter Visit Diagnoses Not on filedocumented in this encounter
--- OUTSIDE RECORDS SUMMARY | 2025-05-09 21:35 | XMS_ITS | Clinical Summary ---
Author Organization [facility] Address [address] [place] [address] Phone Care Team Providers Care Livestock Rancher Name Role Phone Unavailable Primary Care Provider [...] > 160, DBP >100. 90 Tablet 2 02/04/20 25 Active labetaloL (NORMODYNE) 100 mg tablet Take 1 Tablet (100 mg) by mouth 2 times daily. 60 Tablet 2 02/04/20 25 Active losartan (COZAAR) 25 mg tablet Take 1 Tablet (25 mg) by mouth daily. 30 Tablet 2 02/04/20 25 Active HYDROcodone-acetam inophen (NORCO) 5-325 mg tabletIndications: [...] Encounters Date Type Department Care Team Description 05/03/2025 External Device Data STL ABSTRACTION Provider, Abstract 04/27/2025 1:26 AM CDT - 04/27/2025 3:02 AM CDT Emergency [facility] [address] [place] [id number] Demario Felipe MD Neck pain (Primary Dx); ESRD on hemodialysis ([facility]); Poorly-controlled hypertension Discharge Disposition: Home or Self Care 04/27/2025 Travel 04/25/2025 2:50 PM CDT Ancillary Procedure [place] [address] [facility] [phone] Shahriar Mckeon PA Closed dislocation of left elbow, initial encounter 04/25/2025 2:25 PM CDT Ancillary Procedure [place] [address] [place] [phone] Shahriar Mckeon PA Left hand pain; Right hand pain 04/25/2025 2:20 PM CDT Office Visit [place] [address] [place] [phone] [place], [place] Closed nondisplaced fracture of other part of second metacarpal bone of left hand, initial encounter (Primary Dx); Left hand pain; Right hand pain; Closed dislocation of left elbow, initial encounter 04/18/2025 External Device Data STL ABSTRACTION Provider, Abstract 04/11/2025 External Device Data STL ABSTRACTION Provider, Abstract 03/14/2025 External Device Data STL ABSTRACTION Provider, [...] - 02/12/2025 11:59 PM CDT Hospital Encounter [facility] [address] [phone] [facility] Discharge Disposition: RUST 02/10/2025 8:36 PM CDT - 02/10/2025 8:49 PM CDT Emergency [facility] [address] [place] [phone] Discharge Disposition: Left Against Medical Advice 02/10/2025 - 02/10/2025 11:59 PM CDT Hospital Encounter [address] [phone] [facility] Discharge Disposition: 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 Gender Identity Not on file Sexual Orientation Not on file Last Filed Vital Signs Vital Sign Reading Time Taken Comments Blood Pressure 176/128 04/27/2025 2:30 AM CDT Pulse 79 04/27/2025 2:30 AM CDT Temperature 36.8 C (98.3 F) 04/26/2025 11:29 PM CDT Respiratory Rate 16 04/26/2025 11:29 PM CDT Oxygen Saturation 98% 04/27/2025 2:30 AM CDT Inhaled Oxygen Concentration - - Weight 45.8 kg (101 lb) 04/26/2025 4:38 PM CDT Height 154.9 cm (5' 1 ) 04/26/2025 4:38 PM CDT Body Mass Index 19.08 04/26/2025 4:38 PM CDT Plan of Treatment Upcoming Encounters Date Type Department Care Team (Late st Contact Info) Description 05/16/2025 3:00 PM CDT Office Visit [facility] [address] [place] [phone] Garry Randolph MD [address] [place] [phone] Health Maintenance Due Date Last Done Comments INFLUENZA VACCINE (#1) 2025 , 09/15/2019, 09/17/2018, Additional history exists DTAP/TDAP/TD VACCINES (7 - T d or Tdap) 07/27/2027 07/27/2017, 02/28/2005, 12/09/2001, Additional history exists HEPATITIS B VACCINES Completed 05/18/2001, 2000, 2000, Additional history exists HPV VACCINES Completed 09/17/2018, 06/2017, 05/19/2017 Procedures Procedure Name Priority Date/Time Associated Diagnosis Comments CT CERVICAL SPINE WO CONTRAST Stat 04/26/2025 9:[address] HEAD WO CONTRAST Stat 04/26/2025 9 :44 PM CDT COMPREHENSIVE METABOLIC PANEL Stat 04/26/2025 9:24 PM CDT CBC WITH DIFFERENTIAL Stat 04/26/2025 9:24 PM CDT INSERT PERIPHERAL IV Stat 04/26/2025 9:20 PM CDT XR ELBOW 3+ VW LEFT Stat 04/25/2025 2 :57 PM CDT Closed dislocation of left elbow, initial encounter XR HAND 3+ VW BILAT Routine 04/25/2025 2 :28 PM CDT Left hand pain Right hand pain BASIC METABOLIC PANEL Stat 02/10/2025 6:20 PM CDT CBC WITH DIFFERENTIAL Stat 02/10/2025 6:20 PM CDT TELEMETRY REPORT 02/07/2025 3:10 AM CDT from Last 3 Months Results * CT CERVICAL SPINE WO CONTRAST (04/26/2025 9:44 PM CDT) Anatomical Region Laterality Modality Spine Computed Tomogra phy 04/26/2025 9:35 PM CDT Impressions 04/27/2025 8:59 AM CDT IMPRESSION: No acute cervical spine abnormalities. Narrative 04/27/2025 8:59 AM CDT EXAM: Cervical spine CT without contrast. One or more of the following dose reduction techniques were utilized: automated exposure control[AEC], adjustment of mA and/or KV according to patient size, use of iterative reconstruction technique, CT scan done according to ALARA or ALARA image gently. HISTORY: Neck pain, acute, no red flags COMPARISON: CT scan dated 01/31/2025 FINDINGS: No fractures, dislocations or acute malalignment of the cervical spine. Mild cervical spine degenerative changes without substantial spinal canal or neural foraminal stenoses. Preserved intervertebral disc heights. Remainder unremarkable. Procedure Note Barrett Lockhart MD - 04/27/2025 EXAM: Cervical spine CT without contrast. One or more of the following dose reduction techniques were utilized: automated exposure control[AEC], adjustment of mA and/or KV according to patient size, use of iterative reconstruction technique, CT scan done according to ALARA or ALARA image gently. HISTORY: Neck pain, acute, no red flags COMPARISON: CT scan dated 01/31/2025 FINDINGS: No fractures, dislocations or acute malalignment of the cervical spine. Mild cervical spine degenerative changes without substantial spinal canal or neural foraminal stenoses. Preserved intervertebral disc heights. Remainder unremarkable. IMPRESSION: No acute cervical spine abnormalities. Constance Lim RAILROAD CAR PAINTER CT ORDERABLES Final R esult * CT HEAD WO CONTRAST (04/26/2025 9:44 PM CDT) Anatomical Region Laterality Modality Head Computed Tomogra phy 04/26/2025 9:35 PM CDT Impressions 04/27/2025 9:39 AM CDT IMPRESSION: No acute intracranial abnormality. Narrative 04/27/2025 9:39 AM CDT EXAM: Head CT without contrast. One or more of the following dose reduction techniques were utilized: automated exposure control[AEC], adjustment of mA and/or KV according to patient size, use of iterative reconstruction technique, CT scan done according to ALARA or ALARA image gently. HISTORY: Headache, sudden, severe COMPARISON: CT scan dated 01/31/2025 FINDINGS: No intracranial hemorrhage, mass effect, fractures or evidence of evolving infarct. No hydrocephalus. Resolution of the prior bilateral parenchymal signal abnormality suggestive of PRES. Bilateral maxillary sinusitis or mucous retention cysts.. Remainder unremarkable. Procedure Note Barrett Lockhart MD - 04/27/2025 EXAM: Head CT without contrast. One or more of the following dose reduction techniques were utilized: automated exposure control[AEC], adjustment of mA and/or KV according to patient size, use of iterative reconstruction technique, CT scan done according to ALARA or ALARA image gently. HISTORY: Headache, sudden, severe COMPARISON: CT scan dated 01/31/2025 FINDINGS: No intracranial hemorrhage, mass effect, fractures or evidence of evolving infarct. No hydrocephalus. Resolution of the prior bilateral parenchymal signal abnormality suggestive of PRES. Bilateral maxillary sinusitis or mucous retention cysts.. Remainder unremarkable. IMPRESSION: No acute intracranial abnormality. Constance Joseph [facility] CT ORDERABLES Final R esult * (ABNORMAL) CBC WITH DIFFERENTIAL (04/26/2025 9:24 PM CDT) Only the most recent of2 resultswithin the time period is included. Pathologist [facility] WBC 11.0 4.5 - 11.0 K/uL 04/26/2025 9:[address] [facility] RBC 3.38(L) 4.60 - 6.20 M/uL 04/26/2025 9:[address] [facility] HEMOGLOBIN 10.3(L) 14.0 - 18.0 g/dL 04/26/2025 9:[address] [facility] HEMATOCRIT 33.3(L) 41.0 - 53.0 % 04/26/2025 9:[address] [facility] MCV 98.5 84.0 - 103.0 fL 04/26/2025 9:54 PM CDT [facility] MCH 30.5 27.0 - 34.0 pg 04/26/2025 9:54 [facility] MCHC 30.9 30.0 - 35.0 g/dL 04/26/2025 9:54 PM [facility] PLATELETS 213 140 - 440 K/uL 04/26/2025 9:[address] [facility] MPV 10.9 8.9 - 12.8 fL 04/26/2025 9:54 PM [facility] RDW 17.2(H) 11.0 - 14.5 % 04/26/2025 9:[address] [facility] RDW-STDEV 60.4(H) 37.0 - 54.0 fL 04/26/2025 9:54 PM [facility] NEUTROPHILS 92(H) 42 - 75 % 04/26/2025 9:54 PM [facility] LYMPHOCYTES 4(L) 24 - 44 % 04/26/2025 9:[address] [facility] MONOCYTES 2 2 - 10 % 04/26/2025 9:54 PM [facility] EOSINOPHILS 1 0 - 7 % 04/26/2025 9:54 PM [facility] BASOPHILS 1 0 - 1 % 04/26/2025 9:54 PM [facility] IMMATURE GRANULOCYTES 1 0 - 2 % 04/26/2025 9:[address] [facility] NEUTROPHIL ABSOLUTE 10.16(H) 2.00 - 8.00 K/uL 04/26/2025 9:54 PM [facility] LYMPHOCYTE ABSOLUTE 0.47(L) 1.20 - 4.00 K/uL 04/26/2025 9:54 PM [facility] MONOCYTE ABSOLUTE 0.22 0.10 - 0.60 K/uL 04/26/2025 9:54 PM CDT [facility] EOSINOPHIL ABSOLUTE 0.06 0.00 - 0.70 K/uL 04/26/2025 9:54 PM CDT [facility] BASOPHILS ABSOLUTE 0.05 0.00 - 0.20 K/uL 04/26/2025 9:54 PM CDT [facility] IMMATURE GRANULOCYTES ABSOLUTE 0.07 0.00 - 0.10 K/uL 04/26/2025 9:54 PM CDT [facility] SMEAR REVIEWED: NN - No Action Needed 04/26/2025 9:54 PM T [facility] Blood Venipuncture / Unknown 04/26/2025 9:24 PM CDT 04/26/2025 9:39 PM CDT Constance Joseph McTeer RAILROAD CAR PAINTER HEMATOLOGY ORDERABLES F inal Result [facility] # [id number] [facility] [address] [place] [address] * (ABNORMAL) COMPREHENSIVE METABOLIC PANEL (04/26/2025 9:24 PM CDT) Pathologist [facility] SODIUM 137 136 - 145 mmol/L 04/26/2025 10:15 PM CDT [facility] POTASSIUM 5.8(H) 3.5 - 5.1 mmol/L 04/26/2025 10:15 PM T [facility] CHLORIDE 95(L) 98 - 107 mmol/L 04/26/2025 10:15 PM CDT [facility] CO2 27 22 - 29 mmol/L 04/26/2025 10:15 PM CDT [facility] CALCIUM 9.4 8.6 - 10.0 mg/dL 04/26/2025 10:15 PM CDT [facility] BUN 22(H) 6 - 20 mg/dL 04/26/2025 10:15 PM CDT [facility] CREATININE 4.63(H) 0.67 - 1.17 mg/dL 04/26/2025 10:15 PM CDT [facility] GLUCOSE 98 74 - 99 mg/dL 04/26/2025 10:15 PM CDT [facility] TOTAL PROTEIN 7.4 6.4 - 8.3 g/dL 04/26/2025 10:15 PM CDT [facility] ALBUMIN 5.0 3.5 - 5.2 g/dL 04/26/2025 10:15 PM CDT [facility] BILIRUBIN TOTAL 0.2 0.0 - 1.0 mg/dL 04/26/2025 10:15 PM CDT [facility] ALKALINE PHOSPHATASE 95 40 - 129 U/L 04/26/2025 10:15 PM CDT [facility] AST 11 10 - 50 U/L 04/26/2025 10:15 PM CDT [facility] ALT 7 <=50 U/L 04/26/2025 10:15 PM CDT [facility] GFR 17(L) >=60 mL/min/1. 73 sq meter 04/26/2025 10:15 PM CDT [facility] Comment:eGFR calculated with 2020 CKD-EPI equation. Vegetarian diet, extremely high or low muscle mass, and may affect results. Cystatin C with Glomerular Filtration Rate is a suitable alternative for these patients. ANION GAP 15 9 - 20 mmol/L 04/26/2025 10:15 PM T [facility] Blood Venipuncture / Unknown 04/26/2025 9:24 PM CDT 04/26/2025 9:39 PM CDT us Constance Lim RAILROAD CAR PAINTER CHEMISTRY ORDERABLES Fi nal Result [facility] CLIA # [id number] [address] [place] [id number] * INSERT PERIPHERAL IV (04/26/2025 9:20 PM CDT) Narrative Nahum Matos RN - 04/26/2025 9:20 PM CDT Nahum Matos RN 04/26/2025 9:39 PM VASCULAR ACCESS TEAM Peripheral IV insertion with lab collection PATIENT NAME: Vance Sainz DATE OF : 2000 [facility]: [id number] DATE: 04/26/2025 Room: Room/bed info not found Admit Date: (Not on file) Hospital day: LOS: 0 days PERIPHERAL IV INSERTION and LAB COLLECTION Ultrasound assessment was performed to assess adequacy of vascular anatomy Adequate vessel was located Insertion site cleansed for 30 seconds with Chlora-prep. Site allowed to dry before ultrasound guided needle stick. A 22 Gauge 1.75 Inch peripheral IV was successfully placed using ultrasound guidance in the left, upper Arm Secure port adhesive used Yes 1 attempts 35 minutes required to complete procedure Labs collected Yes Blood Cultures collected No Positive blood return noted Neutral pressure cap applied Catheter Flushed with 5ml of Normal Saline Transparent dressing applied with date, time and initials of cowoker inserting. LDA documentation is contained in EMR flowsheet Patient tolerated well. Nahum Matos RN Constance Joseph McTeer RAILROAD CAR PAINTER IV THERAPY ORDERABLES F inal Result * XR ELBOW 3+ VW LEFT (04/25/2025 2:57 PM CDT) Anatomical Region Laterality Modality Upper Extremity Computed Radiogr aphy Narrative 04/26/2025 8:52 AM CDT X-rays obtained of the left elbow on April 25, 2025 independently reviewed which does not demonstrate any acute osseous abnormalities, fractures, or dislocations noted. Shahriar Mckeon PA DIAGNOSTIC IMAGING ORDERABLES Fi nal Result * XR HAND 3+ VW BILAT (04/25/2025 2:28 PM CDT) Anatomical Region Laterality Modality Wrist / Hand Computed Radiogr aphy Narrative 04/26/2025 8:52 AM CDT X-rays obtained of bilateral hands on 04/25/2025 are independently reviewed which demonstrates a subtle fracture along the ulnar aspect of the second metacarpal head with no other acute osseous abnormalities appreciated. With regards to the right hand there is what appears to be chronic and healed fifth metacarpal neck fracture. Shahriar NASH DIAGNOSTIC IMAGING ORDERABLES Fi nal Result * (ABNORMAL) BASIC METABOLIC PANEL (02/10/2025 6:20 PM CDT) SODIUM 142 136 - 145 mmol/L 02/10/2025 7:07 PM CDT [facility] POTASSIUM 5.1 3.5 - 5.1 mmol/L 02/10/2025 7:07 PM CDT [facility] CHLORIDE 99 98 - 107 mmol/L 02/10/2025 7:07 PM CDT [facility] CO2 27 22 - 29 mmol/L 02/10/2025 7:07 PM CDT [facility] CALCIUM 8.9 8.6 - 10.0 mg/dL 02/10/2025 7:07 PM CDT [facility] BUN 30(H) 6 - 20 mg/dL 02/10/2025 7:07 PM CDT [facility] CREATININE 6.42(H) 0.67 - 1.17 mg/dL 02/10/2025 7:07 PM T [facility] GLUCOSE 85 74 - 99 mg/dL 02/10/2025 7:07 PM T [facility] GFR 12(L) >=60 mL/min/1. 73 sq meter 02/10/2025 7:07 PM T [facility] Comment:eGFR calculated with 2020 CKD-EPI equation. Vegetarian diet, extremely high or low muscle mass, and may affect results. Cystatin C with Glomerular Filtration Rate is a suitable alternative for these patients. ANION GAP 16 9 - 20 mmol/L 02/10/2025 7:07 PM T [facility] Blood Venipuncture / Unknown 02/10/2025 6:20 PM CDT 02/10/2025 6:35 PM CDT Stan Carey WILDFIRE PREVENTION SPECIALIST CHEMISTRY ORDERABLES Final R esult [facility] Musement [facility] CLIA # [id number] [address] [facility] [place] [address] * TELEMETRY REPORT (02/07/2025 3:10 AM CDT) us Provider Scanning ECG ORDERABLES Final Result from Last 3 Months Insurance [place] [employer] RX Member Subscriber Plan / Payer (Ef fective 2025-Present) Name:Vance Sainz Relation to Subscriber:Self Name:Vance Sainz Subscriber ID:Not on file Payer ID:Not on file Group ID:[id number] Type:RX Medicare Part D Address: [place] Advance Directives For more information, please contact: [phone] * Full Code (Latest Code Status on File) Date Activated Date Inactivated Comments 01/31/2025 2:27 PM 02/03/2025 8:44 PM
--- OUTSIDE RECORDS SUMMARY | 2025-05-09 21:35 | XMS_ITS | Encounter Summary ---
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 [address] [facility] [address] [place] [address] Social History Tobacco Use Types Packs/Day Years Used Date Smoking Tobacco: Never Assessed Sex and Gender Information Value Date Recorded Sex Assigned at Not on file Legal Sex Male 12:34 PM EST Gender Identity Not on file Sexual Orientation Not on file documented as of this encounter Progress Notes * Saskia Peterson NP - 02/15/2025 12:00 AM CDT Patient: Vance Sainz : 2000 Note Type: Dialysis TCM Service Date: 02/15/2025 The patient was seen for a mcev-hw-lzor visit as part of Transitional Care Management services. 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 COMMENTS: See jennifer 1.0. Also hospitalized at [facility] this week for vol overload and hyperkalemia 02/12-02/14. Medications reviewed with him today HOSPITALIZATION SUMMARY Patient transitioned from: Hospital Patient transitioned to: Home Admit Date: 02/12/2025 Discharge Date: 02/14/2025 Discharged info reviewed: No outstanding diagnostic tests and treatments Reason for admission: vol overload and hyperkalemia HOME MEDICATIONS Discharge med list reviewed - changes reconciled and discussed with patient. Active treatment medication orders reviewed - no changes. COMMENTS: Reviewed and updated list in p-hub. Current [facility] Outpatient Medications amlodipine 10 mg tablet Take 1 tablet by mouth once a day. clonazepam 1 mg tablet Take 1 tablet by mouth every eight hours as directed. hydralazine 50 mg tablet Take 1 tablet by mouth three times a day. labetalol 100 mg tablet Take 2 tablet by mouth twice a day. levetiracetam 500 mg tablet Take 1 tablet by mouth twice a day. losartan 50 mg tablet prednisone 5 mg tablet Take 1 tablet by mouth once a day. [Pt. to take 10mg daily for 4wks starting 02/14/2025, then back to 5mg daily.] RenaPlex-D 800 mcg-12.5 mg-2,000 unit tablet Take 1 tablet by mouth once a day. sevelamer carbonate 800 mg tablet Take 1-2 tablet by mouth three times a day with meals. trazodone 50 mg tablet Take 1 tablet by mouth every night at bedtime. Current [facility] Allergies Allergen: No Known Allergies Allergen: No Known Drug Allergies Allergen: No Known Food Allergies TREATMENT MEDICATIONS ORDERS Heparin Sodium (Porcine) 1,000 Units/mL Systemic 2000 units IVP Every Treatment 09/30/2024 - 09/29/2025 Heparin Sodium (Porcine) 1,000 Units/mL Systemic 300 units IVP Every Treatment 09/30/2024 - 09/29/2025 Lidocaine HCl 2% (Xylocaine 2%) 0.2 mL ID Every Treatment 09/30/2024 - 09/29/2025 Mircera 60 mcg IVP Every 2 weeks During Dialysis 02/10/2025 - 02/09/2026 Vitamin D (Calcitriol) Oral 0.75 mcg ORAL Every Treatment Post Dialysis 01/09/2025 - 01/08/2026 PHYSICAL EXAM Exam performed. Vital Signs Reviewed. CV - Blood pressure noted. CV - RRR. 1+ edema. DIALYSIS PRESCRIPTION Dry weight during admission reviewed - no change to EDW. 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 Has not been as compliant, signing off early, missing treatments. Continue to work on compliance, monthly labs. Hypertension, improving. Continue current medications. Reviewed list with him. PRES. Work on BP control, follow up with neurology. Needs appointment. Discussed with staff. VISIT DIAGNOSES CPT Code 54667 - High complexity, seen within 7 days of discharge. N18.6 End stage renal disease COMMENTS: not been as compliant, signing off early, missing treatments. Continue to work on compliance, monthly labs. 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 Needs appointment. Discussed with staff. I12.0 Hypertensive chronic kidney disease with stage 5 chronic kidney disease or end stage renal disease COMMENTS: Continue current medications. Reviewed list with him. Work on UF. Signed by: SASKIA PETERSON NP on 02/15/2025 at 12:42:16 PM Transcribed by: SASKIA PETERSON NP on 02/15/2025 at 12:42:16 PM documented in this encounter Plan of Treatment Not on file documented as of this encounter Visit Diagnoses Not on filedocumented in this encounter
--- OUTSIDE RECORDS SUMMARY | 2025-05-09 21:35 | XMS_ITS | Encounter Summary ---
Author Organization [facility] Address [address] [place] [address] Care Team Providers Care Patient Support Partner Name Role Phone Unavailable Primary Care Provider Unavailabl e Encounter Details Date Type Department Care Team (Late st Contact Info) Description 05/03/2025 External Device Data ST[place] ABSTRACTION Provider, Abstract NO ADDRESS ON FILE Social History Tobacco Use Types Packs/Day Years Used Date Smoking Tobacco: Never Smokeless Tobacco: Former Chew Alcohol Use Standard Drinks/Week Comments Never 0 (1 standard drink = 0.6 oz pur e alcohol) Sex and Gender Information Value Date Recorded Sex Assigned at Not on file Legal Sex Male 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
--- OUTSIDE RECORDS SUMMARY | 2025-05-09 21:35 | XMS_ITS | Encounter Summary ---
Author Organization [facility], [facility] Address [address] [place] [address] Phone Care Team Providers Care Baggage And Mail Agent Name Role Phone Unavailable Primary Care Provider Unavailabl e Reason for Visit * Reason Onset Date Comments Med Refill 05/03/2025 Encounter Details Date Type Department Care Team (Late st Contact Info) Description 05/03/2025 [facility] [address] [facility] [address] [place] [address] Jasmin Carson MA [address] [facility] [address] [place] [address] Social History Tobacco Use Types [...]
--- NOTE | 2025-05-09 22:47 | XRR_ITS ---
PROCEDURE INFORMATION: Exam: XR Chest Exam date and time: 05/09/2025 10:52 PM Age: 24 years old Clinical indication: Dyspnea; Additional info: SOB TECHNIQUE: Imaging protocol: Radiologic exam of the chest. Views: 1 view. COMPARISON: CR (CHEST, ) 03/07/2025 9:50 PM FINDINGS: Lungs: Unremarkable. No consolidation. Pleural spaces: Unremarkable. No pleural effusion. No pneumothorax. Heart/Mediastinum: Unremarkable. No cardiomegaly. Bones/joints: Unremarkable. XR/XR chest 1V portable [id number] IMPRESSION: No acute findings.
--- NOTE | 2025-05-09 22:48 | W.ED.RECABL ---
HPI - Recheck/Abnormal Lab/Rx General: Chief Complaint: Recheck/Abnormal Lab/Rx Stated Complaint: Missed Dial\Wants to be Check Out Time Seen by Provider: 05/09/25 22:27 History of Present Illness: Patient comes in asking to have his labs checked. States that he missed dialysis 2 days ago and then again today secondary to his chronic pain. States he is scheduled for noon tomorrow but is concerned that his labs may be elevated including his potassium. Denies any shortness of breath. On physical exam his lungs are clear to auscultation. He is asking for pain medication. I informed him we would be glad to treat his pain with nonnarcotics. He states that he has had steroids in the past which helped. Will give him 650 mg of p.o. Tylenol as well as 40 mg of p.o. steroids, check labs, chest x-ray, and reassess. Related Data Home Medications ?Medication ?Instructions ?Recorded ?Confirmed labetalol 100 mg tablet 200 mg PO BID 09/11/24 04/12/25 vit B,C-folic ac 800 mcg-zinc 12.5 1 tab PO DAILY 09/11/24 04/12/25 mg-selen-D3 2,000 unit-vit E tablet (RenaPlex-D) levetiracetam 500 mg tablet See Rx Instructions .Route .COMPLEX 02/12/25 04/12/25 sevelamer carbonate 800 mg tablet 800 - 1,600 mg PO TID 02/12/25 04/12/25 trazodone 50 mg tablet 50 mg PO BEDTIME 02/12/25 04/12/25 hydralazine 100 mg tablet 100 mg PO TID 04/05/25 04/12/25 methocarbamol 500 mg tablet 500 - 1,000 mg PO Q6H PRN Muscle 04/05/25 04/12/25 Spasm sumatriptan 20 mg/actuation nasal 20 mg intranasal Q12H PRN Migraine 04/05/25 04/12/25 spray Headache Previous Rx's ?Medication ?Instructions ?Recorded B-complex with vitamin C 1 tab PO DAILY 30 days #30 tabs 08/04/24 divalproex 500 mg tablet,delayed 500 mg PO BID 30 days #60 tabs 08/04/24 release clonazepam 1 mg tablet (Klonopin) 1 mg PO BID PRN anxiety #10 tabs 01/09/25 prednisone 5 mg tablet 5 mg PO DAILY #60 tabs 02/14/25 isosorbide mononitrate 30 mg 30 mg PO DAILY 30 days #30 tabs 04/13/25 tablet,extended release 24 hr nifedipine 30 mg tablet,extended 90 mg (3 x 30 mg) PO DAILY 30 days 04/13/25 release 24 hr #30 tabs pantoprazole 40 mg tablet,delayed 40 mg PO DAILY 30 days #30 tabs 04/13/25 release Allergies Allergy/AdvReac Type Severity Reaction Status Date / Time NSAIDS (Non-Steroidal Allergy Severe unable to Verified 04/04/25 19:07 Anti-Inflamma take due to kidney disease sertraline (From Zoloft) Allergy Unknown Verified 04/04/25 19:07 Review of Systems Const: Denies: fever(s) ENMT: Denies: throat pain or odynophagia Card: Denies: chest pain or palpitations Resp: Denies: dyspnea or productive cough GI: Denies: abdominal pain, nausea or vomiting PFSH ED PFSH: Medical History (Updated 05/10/25 @ 00:07 by Ariel Aaron MD) Adrenal insufficiency Hypoglycemia CKD (chronic kidney disease) stage V requiring chronic dialysis Generalized anxiety disorder Other stimulant dependence, in remission Problems related to lack of adequate sleep Substance abuse Depression Anxiety Social History (Updated 04/12/25 @ 05:42 by Daron Ayala MD) Smoking and tobacco/nicotine status: unknown if used tobacco/nicotine Quit status (tobacco/nicotine): has tried quititng Number of times tried to quit tobacco: 4 Second hand smoke exposure: No Alcohol intake: never Substance/Drug Use: current Substance/Drug use frequency: Special occassions/opportunity only Additional social history: Patient uses marijuana 1 g every other day he has remote history of some meth use. He reports chewing tobacco and using nicotine pouches but denies smoking cigarettes. He denies suicidal ideation. Patient is companied by his girlfriend and his CODE STATUS is always been full code Physical Exam Const: COMMON NORMALS: no acute distress, patient oriented x3, healthy appearing and alert HENMT: COMMON NORMALS: normocephalic and atraumatic HEAD & SCALP: normocephalic and atraumatic Eye: COMMON NORMALS: EOMs intact bilaterally Neck/C-Spine: COMMON NORMALS: full ROM and supple Resp: COMMON NORMALS: normal respiratory effort, No retractions and No use of accessory muscles Cardio: COMMON NORMALS: regular rate and regular rhythm RATE: regular rate RHYTHM: regular rhythm GI: COMMON NORMALS: Normal to inspection, nondistended, normoactive bowel sounds present, Soft to palpation and non-tender PALPATION: Yes Soft to palpation Extremity: COMMON NORMALS: normal to inspection and full ROM Neuro: COMMON NORMALS: patient oriented x3 SENSORIUM/ORIENTATION: Yes alert Course Vital Signs: Vital signs: Vital Signs Temperature 97.8 F 05/09/25 21:27 Pulse Rate 75 05/09/25 21:27 Respiratory Rate 16 05/09/25 21:27 Blood Pressure 200/129 05/09/25 21:27 Pulse Oximetry 98 05/09/25 21: Oxygen Delivery Me thod Room Air 05/09/25 21:27 MDM - Recheck/Abnormal Lab/Rx Medical Decision Making On reassessment I talked with patient about his test results. His potassium was 5.3. His creatinine is 13. His chest x-ray shows no pulmonary edema. He is resting comfortably on gurney. We discussed the importance of not missing dialysis this morning. Will discharge at this time with precautions to return for worsening or changing symptoms. Lab Data 05/09/25 23:11 05/09/25 23:11 Radiology Impressions Chest X-Ray 05/09/25 22:47 IMPRESSION: No acute findings. Laboratory Results WBC 6.29 10^3/uL (3.29-11.43) 05/09/25 23:11 RBC 3.26 10^6/uL (3.85-5.65) L 05/09/25 23:11 Hgb 10.60 g/dL (11.27-16.99) L 05/09/25 23:11 Hct 32.8 % (37-53) L 05/09/25 23:11 MCV 100.6 fl (82-101) 05/09/25 23:11 MCH 32.5 pg (27-33) 05/09/25 23:11 MCHC 32.3 g/dL (30-55) 05/09/25 23:11 RDW 18.1 % (12.1-15.1) H 05/09/25 23:11 Plt Count 152 10^3/cmm (157-399) L 05/09/25 23:11 MPV 11.5 fL (7.4-10.4) H 05/09/25 23:11 Neut % (Auto) 70.3 % 05/09/25 23:11 Lymph % (Auto) 12.1 % 05/09/25 23:11 Weber % (Auto) 12.4 % 05/09/25 23:11 Eos % (Auto) 3.5 % 05/09/25 23:11 Baso % (Auto) 1.4 % 05/09/25 23:11 Neut # (Auto) 4.42 10^3/uL (1.8-7.7) 05/09/25 23:11 Lymph # (Auto) 0.8 10^3/uL (0.8-4.8) 05/09/25 23:11 Weber # (Auto) 0.8 10^3/uL (0.2-0.9) 05/09/25 23:11 Eos # (Auto) 0.2 10^3/uL (0.0-0.8) 05/09/25 23:11 Baso # (Auto) 0.1 10^3/uL (0.0-0.1) 05/09/25 23:11 Nucleated RBC % (auto) 0 % 05/09/25 23:11 Nucleated RBCs # 0.0 /100WBC 05/09/25 23:11 Sodium 139 mmol/L (136-145) 05/09/25 23:11 Potassium 5.3 mmol/L (3.5-5.1) H 05/09/25 23:11 Chloride 92 mmol/L (98-107) L 05/09/25 23:11 Carbon Dioxide 25 mmol/L (22-29) 05/09/25 23:11 Anion Gap 27.3 (5-19) H 05/09/25 23:11 BUN 76 mg/dL (6-20) H 05/09/25 23:11 Creatinine 13.8 mg/dL (0.7-1.2) H* 05/09/25 23:11 GFR Calculation 4.4 mL/min (90-130) L 05/09/25 23:11 Glucose 87 mg/dL (65-115) 05/09/25 23:11 Calculated Osmolality 310 mOsm/kg (285-295) H 05/09/25 23:11 Calcium 8.9 mg/dL (8.5-10.5) 05/09/25 23:11 All radiology interpretation(s) finalized by discharge Discharge Plan Discharge Patient Disposition: Home Clinical Impression: Acute hyperkalemia Condition: Stable Prescriptions: No Action B-complex with vitamin C Tablet 1 tab PO DAILY 30 Days Qty: 30 1RF divalproex 500 mg tablet,delayed release (DR/EC) 500 mg PO BID 30 Days Qty: 60 1RF trazodone 50 mg tablet 50 mg PO BEDTIME levetiracetam 500 mg tablet See Rx Instructions .ROUTE .COMPLEX Rx Instructions: Take 1 Tablet (500 mg) by mouth 2 times daily. If you have dialysis before 9 AM, please wait to take your morning dose of Keppra until after dialysis. sevelamer carbonate 800 mg tablet 800 - 1,600 mg PO TID prednisone 5 mg tablet 5 mg PO DAILY Qty: 60 2RF Rx Instructions: Take 10 mg for 4 weeks, then 5 mg daily sumatriptan 20 mg/actuation spray,non-aerosol 20 mg INTRANASAL Q12H PRN (Reason: Migraine Headache) methocarbamol 500 mg tablet 500 - 1,000 mg PO Q6H PRN (Reason: Muscle Spasm) hydralazine 100 mg tablet 100 mg PO TID nifedipine 30 mg Tablet Extended Release 24hr 90 mg PO DAILY 30 Days Qty: 30 0RF isosorbide mononitrate 30 mg Tablet Extended Release 24 Hr 30 mg PO DAILY 30 Days Qty: 30 0RF pantoprazole 40 mg Tablet,Delayed Release (Dr/Ec) 40 mg PO DAILY 30 Days Qty: 30 0RF labetalol 100 mg tablet 200 mg PO BID RenaPlex-D 800 mcg-12.5 mg -2,000 unit tablet 1 tab PO DAILY clonazepam [Klonopin] 1 mg tablet 1 mg PO BID PRN (Reason: anxiety) Qty: 10 0RF Discharge Orders: Discharge ED (Routine); Ordered 05/10/25 Ordered By: Ariel Aaron Referrals: Renetta Cole ASSISTANT SALES CENTER MANAGER [Primary Care Provider, Nurse Practitioner] Patient Instructions: Hemodialysis (DC), Patient Portal & [facility]ria Instructions Print Language: Japanese Coding Level of Care Code ED Inbound Customer Service Agent for Diannag Lynsey
[2025-05-09 23:33] LABS: Hematocrit 32.8 % (37-53); Hemoglobin 10.60 g/dL (11.27-16.99); Mean Corpuscular HGB Conc 32.3 g/dL (30-55); Mean Corpuscular Hemoglobin 32.5 pg (27-33); Mean Corpuscular Volume 100.6 fl (82-101); Nucleated Red Blood Cells % 0 %; Platelet Count 152 10^3/cmm (157-399); Red Blood Count 3.26 10^6/uL (3.85-5.65); White Blood Count 6.29 10^3/uL (3.29-11.43)
[2025-05-09 23:57] LABS: Anion Gap 27.3 (5-19); Blood Urea Nitrogen 76 mg/dL (6-20); Calcium 8.9 mg/dL (8.5-10.5); Carbon Dioxide 25 mmol/L (22-29); Chloride 92 mmol/L (98-107); Creatinine Clr Calc Pharmacy 4.6601; Glucose 87 mg/dL (65-115); Osmolality Calculated 310 mOsm/kg (285-295); Potassium 5.3 mmol/L (3.5-5.1); Sodium 139 mmol/L (136-145)
[2025-05-10 00:50] VITALS: BP 157/116; PULSE 80; RESP 18; TEMP 36.8; O2SAT 97
== END 2025-05-10 00:53 | disposition home or self-care (01) ==
PROVIDERS: Emergency Provider Emergency Medicine; PCP Nurse Practitioner Family
DX: E87.5 Hyperkalemia (principal); Z72.0 Tobacco use; N18.9 Chronic kidney disease, unspecified
CPT/HCPCS: 36415; 71045; 80048; 85025; 99284; J7512; J9999

== ENCOUNTER 2025-06-03 18:08 | Emergency (ER) | payer OTHER, MEDICAID, SELFPAY ==
--- OUTSIDE RECORDS SUMMARY | 2025-05-29 14:40 | XMS_ITS | Encounter Summary ---
Author Organization [facility] Address [address] [place] [address] Care Team Providers Care Summer School Coordinator Name Role Phone Beverly Veronica MD Primary Care Provider [phone] Reason for Referral * Eval and Treat (Routine) - Open Specialty Diagnoses / Procedures Referred By Contac t Referred To Contact Diagnoses Seizure disorder (CMS/HCC) Procedures NE OFFICE/OUTPATIENT ESTABLISHED MOD MDM 30 MIN NE OFFICE/OUTPATIENT NEW MODERATE MDM 45 MINUTES Beverly Veronica MD [address] [place] [address] Phone: tel: fax: [facility] Pre-Registration [place] CALL TO MAKE APPOINTMENT ONLY [address] [place] [address] Phone: tel: fax: Referral ID Status Reason Start Date Expiration Date Visits Re quested Visits Authorized [id number] Open 05/29/2025 05/29/2026 1 1 Reason for Visit * Reason Comments Establish Care Sore On the bottom of lef t foot Encounter Details Date Type Department Care Team (Late st Contact Info) Description 05/29/2025 2:40 PM CDT Office Visit [facility] Medicine [address] [address] eBverly Veronica MD [address] [place] [phone] Abrasion, foot without infection (Primary Dx); Seizure disorder ([facility]); Severe major depressive disorder ([facility]); ESRD (end stage renal disease) (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 Gender Identity Not on file Sexual Orientation Not on file documented as of this encounter Last Filed Vital Signs Vital Sign Reading Time Taken Comments Blood Pressure 132/84 05/29/2025 3:08 PM CDT Pulse 98 05/29/2025 3:08 PM CDT Temperature 36.6 C (97.9 F) 05/29/2025 3:08 PM CDT Respiratory Rate 18 05/29/2025 3:08 PM CDT Oxygen Saturation 98% 05/29/2025 3:08 PM CDT Inhaled Oxygen Concentration - - Weight 47.7 kg (105 lb 3.2 oz) 05/29/2025 3:08 P M CDT Height 154.9 cm (5' 1 ) 05/29/2025 3:08 PM CDT Body Mass Index 19.88 05/29/2025 3:08 PM CDT documented in this encounter Progress Notes * Beverly Veronica MD - 05/29/2025 3:10 PM CDT Images from the original note were not included. HISTORY OF PRESENT ILLNESS Vance Sainz, a 24 y.o. male presents with a Chief Complaint of Establish Care and Sore (On the bottom of left foot) Subjective Here today to establish care, previously seen at [facility] Wound on his left sole of his foot, scratched it open Used peroxide and NIYAH, covered with gauze- now stuck Patient Active Problem List Diagnosis Code Seizure disorder ([facility]) G40.909 PRES (posterior reversible encephalopathy syndrome) I67.83 Hypertensive emergency I16.1 ESRD (end stage renal disease) ([facility]) N18.6 History of renal transplant Z94.0 Cannabis use disorder F12.90 Chronic neck pain M54.2, G89.29 Myofascial pain M79.18 DDD (degenerative disc disease), cervical M50.30 Cervical spondylosis without myelopathy M47.812 Adjustment disorder with mixed anxiety and depressed mood F43.23 Anemia in chronic kidney disease (CKD) N18.9, D63.1 Renal transplant failure and rejection T86.12, T86.11 Anxiety F41.9 Chronic kidney disease, stage 5 (CMS/HCC) N18.5 Dependence on renal dialysis Z99.2 Depression F32.A Disorder of phosphorus metabolism, unspecified E83.30 Factor V Leiden mutation D68.51 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 HENT: Negative. Respiratory: Negative for cough and shortness of breath. Cardiovascular: Negative. Gastrointestinal: Negative for abdominal pain, constipation, diarrhea, nausea and vomiting. Genitourinary: Negative. Musculoskeletal: Negative. Skin: Negative. Neurological: Negative. Psychiatric/Behavioral: Negative. Objective PHYSICAL EXAM BP 132/84 Pulse 98 Temp 97.9 ??F (36.6 ??C) (Temporal) Resp 18 Ht 5' 1 (1.549 m) Wt 47.7kg (105 lb 3.2 oz) SpO2 98% BMI 19.88 kg/m?? Physical Exam Vitals reviewed. Constitutional: General: He is not in acute distress. Appearance: Normal appearance. HENT: Head: Normocephalic and atraumatic. Nose: Nose normal. Eyes: Extraocular Movements: Extraocular movements intact. Conjunctiva/sclera: Conjunctivae normal. Cardiovascular: Rate and Rhythm: Normal rate and regular rhythm. Heart sounds: Normal heart sounds. Pulmonary: Effort: Pulmonary effort is normal. No respiratory distress. Breath sounds: Normal breath sounds. No wheezing or rales. Abdominal: General: Bowel sounds are normal. There is no distension. Palpations: Abdomen is soft. Tenderness: There is no abdominal tenderness. Musculoskeletal: Feet: Skin: General: Skin is warm and dry. Neurological: General: No focal deficit present. Mental Status: He is alert and oriented to person, place, and time. Psychiatric: Mood and Affect: Mood normal. Behavior: Behavior normal. Behavior is cooperative. No results found for any visits on 05/29/25 (from the past 24 hours). Assessment ASSESSMENT and PLAN: ICD-10-CM ICD-9-CM 1. Abrasion, foot without infection S90.819A 917.0 Superficial Not currently infected Gauze removed NIYAH and bandage applied, change daily and if soiled 2. Seizure disorder ([facility]) G40.909 345.90 AMB REFERRAL TO NEUROLOGY 3. Severe major depressive disorder (CMS/HCC) F32.2 296.23 managing 4. ESRD (end stage renal disease) ([facility]) N18.6 585.6 Currently on dialysis after renal transplant as a child Nephrology managing Beverly Veronica MD Outpatient Medications Marked as Taking for the 05/29/25 encounter (Office Visit) with Desiree Veronica MD Medication Sig Dispense Refill vit B,H-OW-shds-selen-vit D3-E (RenaPlex-D) 800 mcg-12.5 mg -2,000 unit Tablet Take 1 Tablet by mouth. FLUoxetine (PROzac) 10 mg capsule Take 1 Capsule by mouth daily. methocarbamoL (ROBAXIN) 1,000 mg Tablet tablet Take 1 Tablet by mouth every 6 hours. methoxy peg-epoetin beta (MIRCERA INJECTION) 75 mcg every 2 weeks. amLODIPine (NORVASC) 10 mg tablet Take 1 Tablet (10 mg) by mouth daily. 30 Tablet 2 hydrALAZINE (APRESOLINE) 50 mg tablet Take 1 Tablet (50 mg) by mouth every 8 hours. Take an additional dose every 6 hours prn if SBP > 160, DBP >100. 90 Tablet 2 labetaloL (NORMODYNE) 100 mg tablet Take 1 Tablet (100 mg) by mouth 2 times daily. 60 Tablet 2 losartan (COZAAR) 25 mg tablet Take 1 Tablet (25 mg) by mouth daily. 30 Tablet 2 calcitRIOL (ROCALTROL) 0.25 mcg capsule Take 0.75 mcg by mouth daily. Post dialysis clonazePAM (KlonoPIN) 1 mg tablet Take 1 mg by mouth see administration instructions. Just on dialysis days 3x a week predniSONE (DELTASONE) 5 mg tablet Take 5 mg by mouth daily. Depression Screen Positive: PHQ-2 score >= 3 or PHQ-9 score >= 9 PHQ-2 Total: 3 (05/29/2025 3:06 PM) PHQ-9 Total: 22 (05/29/2025 3:06 PM) DEPRESSION PLAN OF CARE His depression screen was positive. He is currently managed by [facility] documented in this encounter Plan of Treatment Upcoming Encounters Date Type Department Care Team (Late st Contact Info) Description 06/15/2025 12:15 PM CDT Appointment [facility] [address] [place] [address] Garry Randolph MD [address] [place] [address] 12/05/2025 2:40 PM FIELD SUPERINTENDENT Office Visit [address] [phone] Beverly Veronica MD [address] [phone] Scheduled Referrals Name Type Priority Associated Diagnoses Orde r Schedule AMB REFERRAL TO NEUROLOGY Outpatient Referral Routine Seizure disorder ([facility]/HCC) Ordered: 05/29/2025 documented as of this encounter Visit Diagnoses Diagnosis Abrasion, foot without infection- Primary Abrasion or friction burn of foot and toe(s), without mention of infection Seizure disorder (CMS/HCC) Unspecified epilepsy without mention of intractable epilepsy Severe major depressive disorder (CMS/HCC) ESRD (end stage renal disease) (CMS/HCC) End stage renal disease documented in this encounter Additional Health Concerns Assessment Noted Time PHQ-9 Depression Total Score: 3 05/29/20 3:06 PM CDT documented as of this encounter Care Teams Summer School Coordinator Relationship Specialty Start Date End Date Beverly Veronica MD [address] [phone] PCP - General Family Practice 05/29/25 documented as of this encounter
[2025-06-03] VITALS (7 sets, daily range): BP systolic 160–214; BP diastolic 116–143; PULSE 67–77; RESP 16–19; TEMP 36.7; O2SAT 99–100; BMI 18.8
--- OUTSIDE RECORDS SUMMARY | 2025-06-03 18:20 | XMS_ITS | Encounter Summary ---
Author Organization [facility], [facility] Address [address] [place] [address] Phone Care Team Providers Care Supervisor Drilling And Shooting Name Role Phone Unavailable Primary Care Provider Unavailabl e Encounter Details Date Type Department Care Team (Late st Contact Info) Description 05/26/2025 [facility] [address] [place] [address] Saskia Navas NP [address] [facility] [address] [place] [address] End stage renal disease; Dependence [...] Dialysis Note - Saskia Navas NP - 05/26/2025 12:00 AM CDT Patient: Vance Sainz, 2000, 24y, M Dialysis Location: [place] Attending Office Specialist: Shahriar Byers Service Date: 05/26/2025 Service Provider: Saskia Navas NP I met face to face with the patient today. 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 Wants me to speak to his girl so we can know how he bad he feels. He states he has trouble remembering all of the stuff. He states she will need to get ride to come to unit. Patient advised i would speak with her next week on rounds and for her to come with him. He has follow up scheduled with pain clinic as well as mental health next week. He reports he always feels bad after dialysis and it is getting worse. Will await labs on Thursday. States he wants to get his medications straightened out. Staff has provided him numerous med list and he never completes. I have spent time with him reviewing medications as well. We gave him anothe rmed list to take home. He is to review the list, compare what he is taking and bring back next week. Medications and labs reviewed. HOME MEDICATIONS Home Medications: nifedipine 90 mg, by mouth, Take 1 tablet once a day isosorbide mononitrate 30 mg, by mouth, Take 1 tablet once a day trazodone 50 mg, by mouth, Take 1 [...] C (vitamin b comp and c no.3) 80-65-83-5-300 mg, by mouth, 1 capsule once a day Protonix (pantoprazole) 40 mg, by mouth, Take 1 tablet once a day clonazepam 1 mg, by mouth, Take 1 tablet twice a day as directed hydralazine 100 mg, by mouth, Take 1 tablet three times a day for high blood pressure RenaPlex-D (vit b,i-hu-ggru-selen-vit d3-e) 800 mcg-12.5 mg-2,000 unit, by mouth, [...] DIALYSIS PRESCRIPTION IHD 3x Week Start date: 05/17/25 Dialyzer: 180NRe Optiflux BFR: 400 DFR: Autoflow 2 Potassium: 2.0 Sodium: 137 EDW: 44.5 Duration: 3:45 Calcium: 2.5 Bicarb: 35 Rx updated on: 05/17/2025 TREATMENT ASSESSMENT Blood pressure controlled. No changes indicated. BP Stand Pre 05/26/2025: 94/44 05/25/2025: 157/92 05/23/2025: 201/136 BP Sit Pre 05/26/2025: 96/46 05/25/2025: 166/100 05/23/2025: 227/138 BP Stand Post 05/26/2025: 123/49 05/25/2025: 120/50 05/23/2025: 130/73 BP Sit Post 05/26/2025: 103/54 05/25/2025: 126/54 05/23/2025: 130/88 Tx Duration 05/26/2025: 3:42 05/25/2025: 3:48 05/23/2025: 2:34 Missed Treatments 1 - last 30 days 3 - last 60 days 05/09 - recent FLUID ASSESSMENT Comments: Fluid status acceptable. Interdialytic weight gain acceptable. No changes indicated. EDW (kg) 05/26/2025: 44.5 05/25/2025: 44.5 05/23/2025: 44.5 Weight Pre (kg) 05/26/2025: 44.6 05/25/2025: 46.3 05/23/2025: 47.8 Weight Post (kg) 05/26/2025: 44.3 05/25/2025: 44.6 05/23/2025: 44.7 PWV (kg) 05/26/2025: -0.2 05/25/2025: 0.1 05/23/2025: 0.2 UF Rate (mL/kg/hr) 05/26/2025: 1.8 05/25/2025: 10 05/23/2025: 27 ACCESS ASSESSMENT Access Type: AVFistula Access SubType: Standard Access Status: Active (In Use) - 08/14/2023 Access Location: Right Forearm Created: --/--/---- Flow 05/26/2025: 385 05/03/2025: 842 04/28/2025: 576 Vascular access reviewed. Current access is permanent and functioning well. ANEMIA ASSESSMENT HGB at goal. 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 Resumed dialysis in 2022 at [facility]. Patient is stable. Patient discussed with nursing. Patient data updated 05/26/2025 at 4:55 PM Signed By: Saskia Navas NP on 05/26/2025 5:03:30 PM documented in this encounter Plan of Treatment Not on file documented as of this encounter Visit Diagnoses Diagnosis End stage renal disease Dependence on renal dialysis documented in this encounter
--- OUTSIDE RECORDS SUMMARY | 2025-06-03 18:21 | XMS_ITS | Encounter Summary ---
Author Organization [facility], [facility] Address [address] [address] Phone Care Team Providers Care Financial Planning Adviser Name Role Phone Unavailable Primary Care Provider Unavailabl e Reason for Visit * Reason Comments Med Refill Encounter Details Date Type Department Care Team (Late st Contact Info) Description 04/14/2024 Refill [facility] [address] [facility] [address] [place] [address] Shahriar Byers MD [address] [address] Social History Tobacco Use Types [...]
--- OUTSIDE RECORDS SUMMARY | 2025-06-03 18:21 | XMS_ITS | Encounter Summary ---
Author Organization [facility], [facility] Address [address] [place] [address] Phone Care Team Providers Care Central Office Worker Name Role Phone Unavailable Primary Care Provider Unavailabl e Encounter Details Date Type Department Care Team (Late st Contact Info) Description 05/30/2025 Orders Only [facility] [address] [place] [address] Shahriar Byers MD [address] [place] [address] Social History Tobacco Use Types [...] Date/Time Associated Diagnosis Comments HD KINETICS Routine 05/30/2025 SPECIAL CHEMISTRY Routine 05/30/2025 POST CHEMISTRY Routine 05/30/2025 HEMATOLOGY Routine 05/30/2025 CHEMISTRY Routine 05/30/2025 CHEMISTRY Routine 05/30/2025 [facility] RESULTS Routine 05/30/2025 documented in this encounter Results * [facility] Results (05/30/2025) Pathologist [facility] spKt/V Got 2.27 [facility] Center PCR 52.97 [facility] eKdrt/V 1.94 [facility] WSTDKT/V 2.8 [facility] spKt/V (Daugirdas II) 2.35 [facility] eKt/V Gotch 1.94 [facility] e Center nPCR_HD 1.20 [facility] eNPCR 1.06 [facility] eKt/V ([place]) 2.03 [facility] 05/30/2025 05/30/2025 [facility] Ordering Provider LAB BLOOD ORDERABLES Final Result [facility] Center Contact Performing lab Unknown, [place] * (ABNORMAL) HD KINETICS (05/30/2025) Pathologist [facility] % Urea Reduction 84(H) 65 - 80 % [facility] 05/30/2025 05/31/2025 10: 48 AM CDT Narrative Resulting Agency Comment Specimen source: Plasma Shahriar Byers MD LAB BLOOD ORDERABLES Final Result [facility] See order comments or contact performing lab Unknown, [place] * POST CHEMISTRY (05/30/2025) Pathologist [facility] BUN Post Dialysis 11 6 - 19 mg/dL [facility] 05/30/2025 05/31/2025 10: 48 AM CDT Narrative [facility] - 05/31/2025 Unless otherwise specified, test(s) performed at: [facility], [address] [place] [address] ONLINE PUBLISHER: Ryan Singer M.D. For any questions, please call customer service at FREQUENCY:MONTHLY Resulting Agency Comment Specimen source: Plasma Shahriar Byers MD LAB BLOOD ORDERABLES Final Result [facility] See order comments or contact performing lab Unknown, [place] * (ABNORMAL) HEMATOLOGY (05/30/2025) Pathologist [facility] Neutrophils 78.0(H) 40.0 - 75.0 % [facility] Lymphocytes Relative 10.9(L) 19.0 - 48.0 % [facility] Monocytes 5.4 3.0 - 10.0 % [facility] Eosinophils Relative 2.5 0.0 - 7.0 % [facility] Basophils Relative 1.4 0.0 - 1.5 % [facility] PHILLIP 1.7 0.0 - 4.0 % [facility] WBC 7.57 4.80 - 10.80 1000/mcL [facility] RBC 3.34(L) 4.70 - 6.10 mill/mcL [facility] Hematocrit 32.9(L) 42.0 - 52.0 % [facility] MCV 98 80 - 100 fl [facility] MCH 32.9(H) 27.0 - 31.0 pg [facility] MCHC 33.4 30.0 - 36.0 g/dL [facility] RDW 17.0(H) 11.5 - 14.5 % [facility] Hemoglobin 11.0(L) 14.0 - 18.0 g/dL [facility] Comment: Verified by repeat analysis. Hemoglobin x 3 33(L) 42.0 - 54.0 % [facility] Platelets 145 130 - 400 1000/mcL [facility] 05/30/2025 05/31/2025 1:1 8 PM CDT Narrative [facility] - 05/31/2025 Unless otherwise specified, test(s) performed at: [facility], [address] [place] [address] ONLINE PUBLISHER: Ryan Singer M.D. For any questions, please call customer service at FREQUENCY:MONTHLY Resulting Agency Comment Specimen source: Blood us Shahriar Byers MD LAB BLOOD ORDERABLES Final Result [facility] See order comments or contact performing lab Unknown, [place] * SPECIAL CHEMISTRY (05/30/2025) [facility] Vitamin D, 25-OH, Total 45.2 30.0 - 100.0 ng/mL [facility] Comment: Please Note: Effective August 17, 2023, the methodology for this test has changed to the [facility]. 05/30/2025 05/31/2025 10: 40 AM CDT Narrative Resulting Agency Comment Specimen source: Serum us Shahriar Byers MD LAB BLOOD BANK TEST O RDERABLES Final Result [facility] See order comments or contact performing lab Unknown, [place] * (ABNORMAL) [facility] (05/30/2025) BUN 69(H) 6 - 19 mg/dL [facility] Creatinine 13.24(H) 0.60 - 1.30 mg/dL [facility] BUN/Creatinine Ratio 5.2(L) 10.0 - 20.0 [facility] Sodium 141 136 - 145 mEq/L [facility] Potassium 4.4 3.5 - 5.1 mEq/L [facility] Chloride 100 96 - 108 mEq/L [facility] Bicarbonate (CO2) 21(L) 22 - 29 mEq/L [facility] Calcium 9.1 8.4 - 10.2 mg/dL [facility] Corrected Calcium 8.9 8.4 - 10.2 mg/dL [facility] Comment: Corrected Calcium is not equivalent to measured Ionized Calcium. Phosphorus 7.7(H) 2.6 - 4.5 mg/dL [facility] Calcium Phosphorus Product 70(H) 0 - 54 [facility] Calcium Phosporus Product, Cor 69(H) 0 - 54 [facility] Alkaline Phosphatase 73 40 - 129 U/L [facility] Total Protein 6.2 6.0 - 8.5 g/dL [facility] Albumin 4.3 3.5 - 5.2 g/dL [facility] Globulin, Total 1.9(L) 2.0 - 4.0 g/dL [facility] A/G Ratio 2.3(H) 1.0 - 2.0 [facility] Magnesium 3.0(H) 1.6 - 2.6 mg/dL [facility] Ferritin 1,274(H) 22 - 322 ng/mL [facility] Iron 147 45 - 160 mcg/dL [facility] UIBC 45(L) 155 - 355 mcg/dL [facility] TIBC 192 185 - 515 mcg/dL [facility] Iron Saturation (TSat) 77(H) 20 - 55 % [facility] 05/30/2025 05/31/2025 10: 40 AM CDT Narrative [facility] - 05/31/2025 Unless otherwise specified, test(s) performed at: [facility], [address] [place] [id number] ONLINE PUBLISHER: Ryan Singer M.D. For any questions, please call customer service at FREQUENCY:MONTHLY Resulting Agency Comment Specimen source: Serum Shahriar Byers MD LAB BLOOD ORDERABLES Final Result Performing Organization Address [facility]/ZIP Co de Phone Number [facility] See order comments or contact performing lab Unknown, [place] * (ABNORMAL) [facility] (05/30/2025) PTH 375(H) 16 - 80 pg/mL [facility] 05/30/2025 05/31/2025 9:1 4 AM CDT [facility]ative [facility]/2025 Unless otherwise specified, test(s) performed at: [facility], [address] [place] [id number] ONLINE PUBLISHER: Ryan Singer M.D. For any questions, please call customer service at FREQUENCY:MONTHLY Resulting Agency Comment Specimen source: Plasma Shahriar Byers MD LAB BLOOD ORDERABLES Final Result [facility] See order comments or contact performing lab Unknown, [place] documented in this encounter Visit Diagnoses Not on filedocumented in this encounter
--- OUTSIDE RECORDS SUMMARY | 2025-06-03 18:21 | XMS_ITS | Clinical Summary ---
Author Organization [facility], [facility] Address [address] [place] [address] Phone Care Team Providers Care Malthouse Laborer Name Role Phone Unavailable Primary Care Provider Unavailabl e Encounters Date Type Department Care Team Description 05/30/2025 Orders Only [place] [facility] [address] [place] [address] Shahriar Byers MD 05/26/[address] [place] [address] [facility] [address] [place] [phone] Saskia Navas NP End stage renal disease; Dependence on renal dialysis 05/25/[address] [place] [address] [facility] [address] [place] [address] Saskia Navas NP End stage renal disease; Dependence on renal dialysis 05/23/2025 Orders Only [place] [facility] [address] [place] [address] Shahriar Byers MD 05/15/2025 Orders Only [place] [facility] [employer] [address] [place] [address] Shahriar Byers MD 05/10/2025 Orders Only [facility], [facility] [address] [place] [address] Shahriar Byers MD 05/10/[address] [place] [address] [facility], [facility] [address] [place] [address] Shahriar Byers MD End stage renal disease; Dependence on renal dialysis 05/05/[address] [place] [address] [facility], [facility] [address] [place] [address] Saskia Navas, TINO End stage renal disease; Dependence on renal dialysis 05/03/2025 [facility] [address] [place] [address] Jasmin Carson MA 05/01/2025 [facility] [address] [place] [address] Shahriar Byers MD 04/28/[address] [place] [address], [facility] [address] [place] [address] Saskia Navas, TINO End stage renal disease; Dependence on renal dialysis 04/24/2025 Orders Only [facility] [address] [place] [address] Shahriar Byers MD 04/19/[address] [place] [address], [facility] [address] [place] [address] Saskia Navas, TINO End stage renal disease; Dependence on renal dialysis 04/18/2025 Orders Only [place] [facility] [address] [place] [address] Shahriar Byers MD 03/29/[address] [place], [place] [address] [address] [place] [address] Saskia Navas, TINO End stage renal disease; Dependence on renal dialysis 03/27/2025 Orders Only [facility], [facility] [address] [place] [address] Shahriar Byers MD 03/22/[address] [place] [address] [facility] [address] [place] [address] Saskia Navas NP End stage renal disease; Dependence on renal dialysis 03/20/2025 Orders Only [facility] [address] [place] [address] Shahriar Byers MD 03/15/2025 Treatment [facility] [address] [place] [address] Shahriar Byers MD End stage renal disease; Dependence on renal dialysis 03/13/2025 Orders Only [place] [facility] [address] [place] [address] Shahriar Byers MD 03/08/2025 Treatment [facility] [address] [place] [address] Saskia Navas NP End stage renal disease; Dependence on renal dialysis; 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 from Last 3 Months Social History Tobacco [...] Procedure Name Priority Date/Time Associated Diagnosis Comments [facility] LAB RESULTS Routine 05/30/2025 HD KINETICS Routine 05/30/2025 POST CHEMISTRY Routine 05/30/2025 HEMATOLOGY Routine 05/30/2025 SPECIAL CHEMISTRY Routine 05/30/2025 CHEMISTRY Routine 05/30/2025 CHEMISTRY Routine 05/30/2025 CHEMISTRY Routine 05/23/2025 HEMATOLOGY Routine 05/23/2025 HEMATOLOGY Routine 05/15/2025 HEMATOLOGY Routine 05/10/2025 HD KINETICS Routine 05/01/2025 POST CHEMISTRY Routine 05/01/2025 CHEMISTRY Routine 05/01/2025 HEMATOLOGY Routine 05/01/2025 HEMATOLOGY Routine 04/24/2025 HEMATOLOGY Routine 04/18/2025 [facility]RA EDUARDO LAB RESULTS Routine 03/27/2025 HD KINETICS Routine 03/27/2025 CHEMISTRY Routine 03/27/2025 POST CHEMISTRY Routine 03/27/2025 HEMATOLOGY Routine 03/27/2025 CHEMISTRY Routine 03/20/2025 HEMATOLOGY Routine 03/20/2025 HEMATOLOGY Routine 03/13/2025 from Last 3 Months Results * (ABNORMAL) HD KINETICS (05/30/2025) Only the most recent of3 resultswithin the time period is included. % Urea Reduction 84(H) 65 - 80 % [facility] 05/30/2025 05/31/2025 10: 48 AM CDT Narrative Resulting Agency Comment Specimen source: Plasma Shahriar Byers MD LAB BLOOD ORDERABLES Final Result Performing Organization Address [facility] de Phone Number [facility] See order comments or contact performing lab Unknown, [place] * SPECIAL CHEMISTRY (05/30/2025) Pathologist [facility] Vitamin D, 25-OH, Total 45.2 30.0 - 100.0 ng/mL [facility] Comment: Please Note: Effective August 17, 2023, the methodology for this test has changed to the SIEMENS E-DuctionAUR. 05/30/2025 05/31/2025 10: 40 AM CDT Narrative Resulting Agency Comment Specimen source: Serum Shahriar Byers MD LAB BLOOD BANK TEST O RDERABLES Final Result Performing Organization Address [facility] de Phone Number [facility] See order comments or contact performing lab Unknown, [place] * POST CHEMISTRY (05/30/2025) Only the most recent of3 resultswithin the time period is included. Pathologist [facility] BUN Post Dialysis 11 6 - 19 mg/dL [facility] 05/30/2025 05/31/2025 10: 48 AM CDT Narrative S[facility]RAE - 05/31/2025 Unless otherwise specified, test(s) performed at: [facility], [address] [place] [id number] HOME OFFICE CLAIMS EXAMINER: Ryan Singer M.D. For any questions, please call customer service at FREQUENCY:MONTHLY Resulting Agency Comment Specimen source: Plasma Shahriar Byers MD LAB BLOOD ORDERABLES Final Result Performing Organization Address [facility]/ZIP Co de Phone Number [facility] See order comments or contact performing lab Unknown, [place] * (ABNORMAL) HEMATOLOGY (05/30/2025) Only the most recent of10 resultswithin the time period is included. Neutrophils 78.0(H) 40.0 - 75.0 % Spectra [...] 05/30/2025 05/31/2025 1:1 8 PM CDT Narrative SPECTRAE - 05/31/2025 Unless otherwise specified, test(s) performed at: [facility], [address] [place], [place] [id number] HOME OFFICE CLAIMS EXAMINER: Ryan Singer M.D. For any questions, please call customer service at FREQUENCY:MONTHLY Resulting Agency Comment Specimen source: Blood Shahriar Byers MD LAB BLOOD ORDERABLES Final Result [facility] See order comments or contact performing lab Unknown, [place] * (ABNORMAL) [facility] Chemistry (05/30/2025) Only the most recent of6 resultswithin the time period is included. BUN 69(H) 6 - 19 mg/dL Spectra [...] 05/30/2025 05/31/2025 10: 40 AM CDT Narrative SPECTRAE - 05/31/2025 Unless otherwise specified, test(s) performed at: [facility], [address] [place] [id number] HOME OFFICE CLAIMS EXAMINER: Ryan Singer M.D. For any questions, please call customer service at FREQUENCY:MONTHLY Resulting Agency Comment Specimen source: Serum Shahriar Byers MD LAB BLOOD ORDERABLES Final Result [facility] See order comments or contact performing lab Unknown, [place] * [facility] ED[facility] Lab Results (05/30/2025) Only the most recent of2 resultswithin the time period is included. spKt/V Gotch 2.27 [facility] PCR 52.97 [facility] eKdrt/V 1.94 [facility] Center WSTDKT/V 2.8 Knowledge Center spKt/V (Daugirdas II) 2.35 Knowledge Center eKt/V Gotch 1.94 [facility] nPCR_HD 1.20 [facility] eNPCR 1.06 Knowledge Center eKt/V (Tattersall) 2.03 Knowledge Center 05/30/2025 05/30/2025 [facility] Ordering Provider LAB BLOOD ORDERABLES Final Result [facility] Center Contact Performing lab Unknown, [place] from Last 3 Months Insurance Medicaid [place] ([facility]) [facility] Medicare
--- OUTSIDE RECORDS SUMMARY | 2025-06-03 18:21 | XMS_ITS | Clinical Summary ---
Author Organization [facility] Address [address] [place] [address] Phone Care Team Providers Care Residential Director Name Role Phone Beverly Veronica MD Primary Care Provider [phone] Allergies Active Allergy Reactions Criticality Noted Date Comments Nsaids (Non-Steroidal Anti-Inflammatory Drug) Unknown 06/24/2023 Remdesivir Other (See Comments) 07/22/2023 Pt doesnot want to take Sertraline Other (See Comments) Medium 09/14/2019 Causes suicidal thoughts. Medications predniSONE (DELTASONE) 5 mg tablet Take 5 mg by mouth daily. 3 Active calcitRIOL (ROCALTROL) 0.25 mcg capsule Take 0.75 mcg by mouth daily. Post dialysis 5 026 Active clonazePAM (KlonoPIN) 1 mg tablet Take 1 mg by mouth see administration instructions. Just on dialysis days 3x a week 5 Active amLODIPine (NORVASC) 10 mg tablet Take 1 Tablet (10 mg) by mouth daily. 30 Tablet 2 5 Active hydrALAZINE (APRESOLINE) 50 mg tablet Take 1 Tablet (50 mg) by mouth every 8 hours. Take an additional dose every 6 hours prn if SBP > 160, DBP >100. 90 Tablet 2 5 Active labetaloL (NORMODYNE) 100 mg tablet Take 1 Tablet (100 mg) by mouth 2 times daily. 60 Tablet 2 5 Active losartan (COZAAR) 25 mg tablet Take 1 Tablet (25 mg) by mouth daily. 30 Tablet 2 5 Active vit B,L-JC-lxbl-se mishel-vit D3-E (RenaPlex-D) 800 mcg-12.5 mg -2,000 unit Tablet Take 1 Tablet by mouth. 5 Active FLUoxetine (PROzac) 10 mg capsule Take 1 Capsule by mouth daily. 5 Active methocarbamoL (ROBAXIN) 1,000 mg Tablet tablet Take 1 Tablet by mouth every 6 hours. 5 Active methoxy peg-epoetin beta (MIRCERA INJECTION) 75 mcg every 2 weeks. 026 Active Active Problems Problem Noted Date Diagnosed Date Chronic neck pain 05/16/2025 Myofascial pain 05/16/2025 DDD (degenerative disc disease), cervical 2024 Cervical spondylosis without myelopathy 05/16/20 Cannabis use disorder 02/02/2025 Seizure disorder 01/31/2025 PRES (posterior reversible encephalopathy syndro me) 01/31/2025 Hypertensive emergency 01/31/2025 ESRD (end stage renal disease) 01/31/2025 Disorder of phosphorus metabolism, unspecified 1 Secondary hyperparathyroidism of renal origin Dependence on renal dialysis 08/12/2023 Anxiety 07/31/2023 Anemia in chronic kidney disease (CKD) 3 PTSD (post-traumatic stress disorder) 09/14/2019 Renal transplant failure and rejection 4 History of renal transplant 11/19/2011 Overview (05/29/2025): 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 Has had AMR. Biopsy in 11/17/2022: ACR 2B, Chronic active AMR with moderate glomerulitis (g2), mild peritubular capillaritis (ptc1), and focal C4D staining (C4d2). Occasional double contouring of glomerular basement membrane (TXP Glomerulopathy). 2 out of 22 Glomerulosclerosis. IFTA 30-40%. Arteriolar hyalinosis, ATI. Rxed with Thymoglobulin 6mg/kg + Solumedrol 500mg x 3 + IVIG 1 g/kg X2. Biopsy in 01/26/2023: Chronic active AMR with moderate glomerulitis & peritubular capillaritis, negative C4d, and TXP Glomerulopathy. 0 out of 17 Glomerulosclerosis. IFTA 70%. Arteriolar hyalinosis. Rxed with Solumedrol 500mg x 3 + IVIG 1 g/kg X2. Biopsy in 04/03/2023: Borderline ACR + Chronic active C4D negative AMR with Transplant Glomerulopathy + Arteriolar Hyalinosis (CNI Tox.), 2 of 19 glomeruli are globally sclerotic, 25%-30% IFTA. Rxed with: Solumedrol 500 mg x3 + IVIG 1g x2 + Rituximab 375 mg/m2 X 2 doses (2 weeks papart). 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 Plan: -D/C coumadin -start aspirin 81mg Adjustment disorder with mixed anxiety and depre ssed mood 05/13/2011 Overview (05/29/2025): Trying to set consistent limits with behavior, taking meds. Continue Risperdal. Seeing psych/counselor from home as well. Depression 03/13/2010 Overview (05/29/2025): Assessment: Vance has difficulty coping with his hopitalizations and his social situation. Concern for self contamination of line. Plan: Con't psychology care and follow recs. Chronic kidney disease, stage 5 02/13/2010 Overview (05/29/2025): Assessment: H&H 10.6 and 30.9 in recommended range with epo regiment. Ranged 9 to 10 during admission Ferritin 363m urib 70.1, TIBC 109 Plan: Epogen 3x/week up to 3150 units starting 05/20 from 2500 units. Continue oral iron for now as iron studies are excellent. Follow H/H. Follow Fe studies. Resolved Problems Problem Noted Date Diagnosed Date Resolved Date Seizure 01/31/2025 05/29/2025 Encounters Date Type Department Care Team Description 05/30/2025 External Device Data ST[facility] ABSTRACTION Provider, Abstract 05/29/2025 2:40 PM CDT Office Visit [address] [address] Beverly Veronica MD Abrasion, foot without infection (Primary Dx); Seizure disorder ([facility]); Severe major depressive disorder ([facility]); ESRD (end stage renal disease) ([facility]) 05/24/2025 External Device Data STL ABSTRACTION Provider, Abstract 05/16/2025 3:00 PM CDT Office Visit [facility] [address] [place] [address] Garry Randolph MD Chronic neck pain (Primary Dx); Myofascial pain; DDD (degenerative disc disease), cervical; Cervical spondylosis without myelopathy; Cervical stenosis of spinal canal 05/16/2025 External Device Data STL ABSTRACTION Provider, Abstract 05/03/2025 External Device Data STL ABSTRACTION Provider, Abstract 04/27/2025 1:26 AM CDT - 04/27/2025 3:02 AM CDT Emergency [facility] Emergency Department [address] [place] [address] Demario Felipe MD Neck pain (Primary Dx); ESRD on hemodialysis ([facility]); Poorly-controlled hypertension Discharge Disposition: Home or Self Care 04/27/2025 Travel 04/26/2025 12:15 AM CDT - 04/26/2025 11:59 PM CDT Hospital Encounter [facility] Emergency Medical Services [facility] [address] [place] [address] Ambulance, [facility] Discharge Disposition: Short [facility] 04/25/2025 2:50 PM CDT Ancillary Procedure [facility] [address] [place] [address] Shahriar Mckeon PA Closed dislocation of left elbow, initial encounter 04/25/2025 2:25 PM CDT Ancillary Procedure [facility] [address] [address] Shahriar Mckeon PA Left hand pain; Right hand pain 04/25/2025 2:20 PM CDT Office Visit [facility] [address] [address] Shahriar Mckeon PA Closed nondisplaced fracture of other part [...] PNEUM OCOCCAL CONJUGATE VACCINE 20-VALENT (PCV20), POLYSACCHARIDE [id number] CONJUGATE, ADJUVANT 0.5 ML (PF) IM 12/14/2024 [...] on file 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 Gender Identity Not on file Sexual Orientation [...] Mass Index 19.88 05/29/2025 3:08 PM CDT Plan of Treatment Upcoming Encounters Date Type Department Care Team (Late st Contact Info) Description 06/15/2025 12:15 PM CDT Appointment [facility] [address] [place] [address] Garry Randolph MD [address] [place] [address] 12/05/2025 2:40 PM RACK ROOM WORKER Office Visit [facility] [place] [address] [address] Beverly Veronica MD [address] [address] Health Maintenance Due Date Last Done Comments HEPATITIS B VACCINES (1 of 1 - Risk Dialysis 4-dose series) 05/18/2002 05/18/2001, 2000, 2000, Additional history exists [place]) Preventative Visit/Annual Wellness Visit 10/19/2024 INFLUENZA VACCINE (#1) 2025 , 09/15/2019, 09/17/2018, Additional history exists DTAP/TDAP/TD VACCINES (7 - T d or Tdap) 07/27/2027 07/27/2017, 02/28/2005, 12/09/2001, Additional history exists HPV VACCINES Completed 09/17/2018, [...] CDT Left hand pain Right hand pain from Last 3 Months Results * CT [...] IMPRESSION: No acute cervical spine abnormalities. [facility] ORDERABLES Final R esult * CT [...] IMPRESSION: No acute intracranial abnormality. [facility] ORDERABLES Final R esult * (ABNORMAL) CBC WITH DIFFERENTIAL (04/26/2025 9:24 PM CDT) [facility] WBC 11.0 4.5 - 11.0 K/uL 04/26/2025 9:54 PM CDT [facility] RBC 3.38(L) 4.60 - 6.20 M/uL 04/26/2025 9:54 PM CDT [facility] HEMOGLOBIN 10.3(L) 14.0 - 18.0 g/dL 04/26/2025 9:54 PM CDT [facility] HEMATOCRIT 33.3(L) 41.0 - 53.0 % 04/26/2025 9:54 PM CDT [facility] MCV 98.5 84.0 - 103.0 fL 04/26/2025 9:54 PM CDT [facility] MCH 30.5 27.0 - 34.0 pg 04/26/2025 9:54 PM CDT [facility] MCHC 30.9 30.0 - 35.0 g/dL 04/26/2025 9:54 PM CDT [facility] PLATELETS 213 140 - 440 K/uL 04/26/2025 9:[facility] MPV 10.9 8.9 - 12.8 fL 04/26/2025 9:54 PM [facility] RDW 17.2(H) 11.0 - 14.5 % 04/26/2025 9:54 PM [facility] RDW-STDEV 60.4(H) 37.0 - 54.0 fL 04/26/2025 9:54 PM T [facility] NEUTROPHILS 92(H) 42 - 75 % 04/26/2025 9:54 PM [facility] LYMPHOCYTES 4(L) 24 - 44 % 04/26/2025 9:54 PM T [facility] MONOCYTES 2 2 - 10 % 04/26/2025 9:54 PM CDT [facility] EOSINOPHILS 1 0 - 7 % 04/26/2025 9:54 PM [facility] BASOPHILS 1 0 - 1 % 04/26/2025 9:54 PM [facility] IMMATURE GRANULOCYTES 1 0 - 2 % 04/26/2025 9:54 PM [facility] NEUTROPHIL ABSOLUTE 10.16(H) 2.00 - 8.00 K/uL 04/26/2025 9:54 PM [facility] LYMPHOCYTE ABSOLUTE 0.47(L) 1.20 - 4.00 K/uL 04/26/2025 9:54 PM [facility] MONOCYTE ABSOLUTE 0.22 0.10 - 0.60 K/uL 04/26/2025 9:54 PM [facility] EOSINOPHIL ABSOLUTE 0.06 0.00 - 0.70 K/uL 04/26/2025 9:54 PM CDT [facility] BASOPHILS ABSOLUTE 0.05 0.00 - 0.20 K/uL 04/26/2025 9:54 PM [facility] IMMATURE GRANULOCYTES ABSOLUTE 0.07 0.00 - 0.10 K/uL 04/26/2025 9:54 PM [facility] SMEAR REVIEWED: NN - No Action Needed 04/26/2025 9:54 PM [facility] Blood Venipuncture / Unknown 04/26/2025 9:24 PM CDT 04/26/2025 9:39 PM CDT Constance Joseph McTeer VIDEO GAME TECHNICIAN HEMATOLOGY ORDERABLES F inal Result [facility] CLIA # [id number] [address] [address] [place] [address] * (ABNORMAL) COMPREHENSIVE METABOLIC PANEL (04/26/2025 9:24 PM CDT) Pathologist [facility] SODIUM 137 136 - 145 mmol/L 04/26/2025 10:15 PM CDT [facility] POTASSIUM 5.8(H) 3.5 - 5.1 mmol/L 04/26/2025 10:15 PM CDT [facility] CHLORIDE 95(L) 98 - 107 mmol/L 04/26/2025 10:15 PM CDT [facility] CO2 27 22 - 29 mmol/L 04/26/2025 10:15 PM CDT [facility] CALCIUM 9.4 8.6 - 10.0 mg/dL 04/26/2025 10:15 PM CDT [facility] BUN 22(H) 6 - 20 mg/dL 04/26/2025 10:15 PM CDT [facility] CREATININE 4.63(H) 0.67 - 1.17 mg/dL 04/26/2025 10:15 PM CDT [facility] GLUCOSE 98 74 - 99 mg/dL 04/26/2025 10:15 PM CDT [facility] TOTAL PROTEIN 7.4 6.4 - 8.3 g/dL 04/26/2025 10:15 PM CDT [facility] ALBUMIN 5.0 3.5 - 5.2 g/dL 04/26/2025 10:15 PM CDT [facility] BILIRUBIN TOTAL 0.2 0.0 - 1.0 mg/dL 04/26/2025 10:15 PM CDT [facility] ALKALINE PHOSPHATASE 95 40 - 129 U/L 04/26/2025 10:15 PM CDT [facility] AST 11 10 - 50 U/L 04/26/2025 10:15 PM CDT [facility] ALT 7 <=50 U/L 04/26/2025 10:15 PM CDT [facility] GFR 17(L) >=60 mL/min/1. 73 sq meter 04/26/2025 10:15 PM CDT [facility] Comment:eGFR calculated with 2020 CKD-EPI equation. Vegetarian diet, extremely high or low muscle mass, and may affect results. Cystatin C with Glomerular Filtration Rate is a suitable alternative for these patients. ANION GAP 15 9 - 20 mmol/L 04/26/2025 10:15 PM CDT [facility] Blood Venipuncture / Unknown 04/26/2025 9:24 PM CDT 04/26/2025 9:39 PM CDT Constance Lim VIDEO GAME TECHNICIAN CHEMISTRY ORDERABLES Fi nal Result [facility] CLIA # [id number] [address] [place] [id number] * INSERT PERIPHERAL IV (04/26/2025 9:20 PM CDT) Narrative Nahum Matos RN - 04/26/2025 9:20 PM CDT Nahum Matos RN 04/26/2025 9:39 PM VASCULAR ACCESS TEAM Peripheral IV insertion with lab collection PATIENT NAME: Vance Sainz DATE OF : 2000 CSN: [id number] DATE: 04/26/2025 Room: Room/bed info not found [...] well. Nahum Matos RN Constance Joseph McTeer VIDEO GAME TECHNICIAN IV THERAPY ORDERABLES F inal Result * XR ELBOW 3+ VW LEFT (04/25/2025 2:57 PM CDT) Anatomical Region Laterality Modality Upper Extremity Computed Radiogr aphy Narrative 04/26/2025 8:52 AM CDT X-rays obtained of the left elbow on April 25, 2025 independently reviewed which does not demonstrate any acute osseous abnormalities, fractures, or dislocations noted. [facility] DIAGNOSTIC [facility] ORDERABLES Fi nal Result * [...] chronic and healed fifth metacarpal neck fracture. [facility] DIAGNO[facility] ORDERABLES Fi nal Result from Last 3 Months Insurance * Guarantor: Vance Sainz Account Type Relation to Patient Date of Phone Billing Address Personal/Family Self [address] [address] MEDICAID [place] [facility] DUAL COMPLETE HMO DSNP [facility] [id number] RX [employer] RX Member Subscriber Plan / Payer (Ef fective 2025-Present) Name:Alistair Vance Barrera Relation to Subscriber:Self Name:Vance Sainz Subscriber ID:Not on file Payer ID:Not on file Group ID:[id number] Type:RX Medicare Part D Address: [address] Advance Directives For more information, please contact: [phone] * Full Code (Latest Code Status on File) Date Activated Date Inactivated Comments 01/31/2025 2:27 PM 02/03/2025 8:44 PM Care Teams Residential Director Relationship Specialty Start Date End Date Beverly Veronica MD [address] [place] [phone] PCP - General Family Practice 05/29/25
--- OUTSIDE RECORDS SUMMARY | 2025-06-03 18:21 | XMS_ITS | Clinical Summary ---
Author Organization [facility] Address [address] [place] [address] Phone Care Team Providers Care Service Order Dispatcher Chief Name Role Phone Unavailable Primary Care Provider [...] patient's age to complete this topic Insurance [facility] MEDICARE
--- OUTSIDE RECORDS SUMMARY | 2025-06-03 18:21 | XMS_ITS | Encounter Summary ---
Author Organization [facility] Address [address] [place] [address] Care Team Providers Care Health Counselor Name Role Phone Beverly Veronica MD Primary Care Provider [phone] Encounter Details Date Type Department Care Team (Late Contact Info) Description 05/30/2025 External Device Data [facility] ABSTRACTION Provider, Abstract NO ADDRESS ON FILE Social History Tobacco Use Types Packs/Day Years Used Date Smoking Tobacco: Never Smokeless Tobacco: Former Chew Alcohol Use Standard Drinks/Week Comments Never 0 (1 standard drink = 0.6 oz pur e alcohol) Sex and Gender Information Value Date Recorded Sex Assigned at Not on file 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 Gender Identity Not on file Sexual Orientation Not on file documented as of this encounter Plan of Treatment Upcoming Encounters Date Type Department Care Team (Late Contact Info) Description 06/15/2025 12:15 PM CDT Appointment [facility] [address] [place] [address] Garry Randolph MD [address] [place] [address] 12/05/2025 2:40 PM SOLAR ENERGY SYSTEM INSTALLER HELPER [facility] [place] [address] [address] Beverly Veronica MD [address] [address] documented as of this encounter Visit Diagnoses Not on filedocumented in this encounter Additional Health Concerns Assessment Noted Time PHQ-9 Depression Total Score: 3 05/29/20 25 3:06 PM CDT documented as of this encounter Care Teams Health Counselor Relationship Specialty Start Date End Date Beverly Veronica MD [address] [place] [phone] PCP - General Family Practice 05/29/25 documented as of this encounter
--- OUTSIDE RECORDS SUMMARY | 2025-06-03 18:21 | XMS_ITS | Encounter Summary ---
Author Organization [facility] Address [address] [facility] [address] [place] [address] Phone Care Team Providers Care System Manager Name Role Phone Unavailable Primary Care Provider Unavailabl e Encounter Details Date Type Department Care Team (Late st Contact Info) Description 02/15/2025 TCM in Dialysis Clinic [facility] [place] [address] [place] [address] [place] [address] Saskia Peterson WALLPAPER INSPECTOR AND SHIPPER [address] [facility] [address] [place] [address] Social History Tobacco Use Types [...] 02/15/2025 The patient was seen for a mytz-[id number] visit as part of Transitional Care Management services. 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 COMMENTS: See jennifer 1.0. Also hospitalized at [facility] this week for vol overload and hyperkalemia [...] Reviewed and updated list in p-hub. Current [facility] Medications amlodipine 10 mg tablet Take [...] by mouth every night at bedtime. Current [facility] Allergies Allergen: No Known Allergies Allergen: No [...] 99.1*F Current Dialysis Vitals BP Sit: 145/84 AP/MACHINE REPAIRER MAINTENANCE: -- Pulse: 88 CARE COORDINATION Post-discharge follow-up [...] Discussed with staff. VISIT DIAGNOSES CPT Code 04590 - High complexity, seen within 7 days [...]
--- OUTSIDE RECORDS SUMMARY | 2025-06-03 18:21 | XMS_ITS | Encounter Summary ---
Author Organization [facility] Address [address] [address] Phone Care Team Providers Care Farm Tractor Operator Name Role Phone Unavailable Primary Care Provider Unavailabl e Encounter Details Date Type Department Care Team (Late st Contact Info) Description 04/01/2023 Telephone [facility] [address] [address] Shawn Betancourt MD [address] [place] [address] Social History Tobacco Use Types Packs/Day Years [...]
--- OUTSIDE RECORDS SUMMARY | 2025-06-03 18:21 | XMS_ITS | Encounter Summary ---
Author Organization [place] [facility] Address [address] [facility] [address] [place] [address] Phone Care Team Providers Care Crm Dynamics Developer Name Role Phone Unavailable Primary Care Provider Unavailabl e Encounter Details Date Type Department Care Team (Late st Contact Info) Description 08/27/2022 [facility] [address] [facility] [address] [place] [address] Kidney transplant status Social History [...]
--- NOTE | 2025-06-03 18:24 | ECG_ITS ---
[facility]: 2025-06-03 Pat Name: Vance Sainz Department: Room: Gender: Male Catalog Specialist: : 2000 Requested By: Max Quiles Order Number: [id number] Danisha MD: Orlando Brown M.D. Measurements Intervals [place] Rate: 82 P: 86 LA: 143 QRS: 78 QRSD: 96 T: 65 QT: 389 QTc: 457 Interpretive Statements SINUS RHYTHM VOLTAGE CRITERIA FOR LVH [MEETS CRITERIA IN ONE OF: R(aVL), S(V1), R(V5), R(V5/V6)+S(V1)] INTERPRETATION BASED ON A DEFAULT AGE OF 40 YEARS Compared to ECG 04/11/2025 21:44:01 Left ventricular hypertrophy now present ANTEROSEPTAL T WAVE INVERSION NO LONGER PRESENT Electronically Signed On 06-03-2025 22:01:39 CDT by Orlando Brown M.D. [id number]
--- NOTE | 2025-06-03 18:37 | ECG_ITS ---
[facility] Date: 2025-06-03 Pat Name: Vance Sainz Department: Room: Gender: Male Lead Sales Consultant: : 2000 Requested By: Barak Patricia Order Number: [id number] Raman MD: Orlando Brown M.D. Measurements Intervals [place] Rate: 70 P: 81 TN: 139 QRS: 75 QRSD: 98 T: 61 QT: 419 QTc: 454 Interpretive Statements SINUS RHYTHM VOLTAGE CRITERIA FOR LVH Compared to ECG 04/11/2025 21:44:01 NO SIGNIFICANT CHANGE Electronically Signed On 06-03-2025 22:04:42 CDT by Orlando Brown M.D. [email or web address]
--- NOTE | 2025-06-03 18:52 | CTR_ITS ---
PROCEDURE INFORMATION: Exam: CT Head Without Contrast Exam date and time: 06/03/2025 7:03 PM Age: 24 years old Clinical indication: Pain; Headache; BHANDARI with hypertension TECHNIQUE: Imaging protocol: Computed tomography of the head without contrast. Radiation optimization: All CT scans at this facility use at least one of these dose optimization techniques: automated exposure control; mA and/or kV adjustment per patient size (includes targeted exams where dose is matched to clinical indication); or iterative reconstruction. COMPARISON: CT head wo con* [id number] 02/12/2025 6:22 AM RADIATION DOSE METRICS: Total DLP (mGy-cm): 1056.27 FINDINGS: Brain: Normal. No hemorrhage. Unremarkable white matter. No mass effect. Cerebral ventricles: No ventriculomegaly. Paranasal sinuses: Sphenoidal sinus and left maxillary sinus mucosal polyps versus retention cysts. Mastoid air cells: Visualized mastoid air cells are well aerated. Bones: Unremarkable. No acute fracture. Soft tissues: Unremarkable. CT/CT head wo con* [id number] IMPRESSION: No acute intracranial abnormality. Paranasal sinus mucosal polyps versus retention cysts.
--- NOTE | 2025-06-03 18:52 | XRR_ITS ---
PROCEDURE INFORMATION: Exam: XR Chest Exam date and time: 06/03/2025 6:56 PM Age: 24 years old Clinical indication: Hypertensive. ; Additional info: HTN, TECHNIQUE: Imaging protocol: Radiologic exam of the chest. Views: 1 view. COMPARISON: CR (CHEST, ) 05/09/2025 10:52 PM FINDINGS: Lungs: Unremarkable. No consolidation. Pleural spaces: Unremarkable. No pleural effusion. No pneumothorax. Heart/Mediastinum: Unremarkable. No cardiomegaly. Bones/joints: Unremarkable. XR/XR chest 1V [id number] IMPRESSION: No acute findings.
--- NOTE | 2025-06-03 19:06 | W.ED.GENADLT ---
HPI - General Adult General: Chief complaint: General Medical Stated complaint: weakness, danaherra Time Seen by Provider: 06/03/25 18:33 History of Present Illness: Chief complaint is blood pressure elevated. The patient states that he is on dialysis and he had dialysis on Thursday and had all his medications until Thursday. He states that he has had some social crisis and was worried about where he was going to live and his social situation and he states that he missed dialysis and stopped taking all his medications. He states he started feeling some pressure sensation on his head and feeling like his blood pressure is elevated which she has had before when his blood pressure gets out of control so he decided to come here to get his labs checked and make sure he is okay. History obtained from patient and his mother. Related Data Home Medications ?Medication ?Instructions ?Recorded ?Confirmed labetalol 100 mg tablet 200 mg PO BID 09/11/24 04/12/25 vit B,C-folic ac 800 mcg-zinc 12.5 1 tab PO DAILY 09/11/24 04/12/25 mg-selen-D3 2,000 unit-vit E tablet (RenaPlex-D) levetiracetam 500 mg tablet See Rx Instructions .Route .COMPLEX 02/12/25 04/12/25 sevelamer carbonate 800 mg tablet 800 - 1,600 mg PO TID 02/12/25 04/12/25 trazodone 50 mg tablet 50 mg PO BEDTIME 02/12/25 04/12/25 hydralazine 100 mg tablet 100 mg PO TID 04/05/25 04/12/25 methocarbamol 500 mg tablet 500 - 1,000 mg PO Q6H PRN Muscle 04/05/25 04/12/25 Spasm sumatriptan 20 mg/actuation nasal 20 mg intranasal Q12H PRN Migraine 04/05/25 04/12/25 spray Headache Previous Rx's ?Medication ?Instructions ?Recorded B-complex with vitamin C 1 tab PO DAILY 30 days #30 tabs 08/04/24 divalproex 500 mg tablet,delayed 500 mg PO BID 30 days #60 tabs 08/04/24 release clonazepam 1 mg tablet (Klonopin) 1 mg PO BID PRN anxiety #10 tabs 01/09/25 prednisone 5 mg tablet 5 mg PO DAILY #60 tabs 02/14/25 Allergies Allergy/AdvReac Type Severity Reaction Status Date / Time NSAIDS (Non-Steroidal Allergy Severe unable to Verified 04/04/25 19:07 Anti-Inflamma take due to kidney disease sertraline (From Zoloft) Allergy Unknown Verified 04/04/25 19:07 [facility] ED PFSH: Medical History (Updated 06/03/25 @ 21:07 by Max Quiles MD) Adrenal insufficiency Hypoglycemia CKD (chronic kidney disease) stage V requiring chronic dialysis Generalized anxiety disorder Other stimulant dependence, in remission Problems related to lack of adequate sleep Substance abuse Depression Anxiety Social History (Updated 04/12/25 @ 05:42 by Daron Ayala MD) Smoking and tobacco/nicotine status: unknown if used tobacco/nicotine Quit status (tobacco/nicotine): has tried quititng Number of times tried to quit tobacco: 4 Second hand smoke exposure: No Alcohol intake: never Substance/Drug Use: current Substance/Drug use frequency: Special occassions/opportunity only Additional social history: Patient uses marijuana 1 g every other day he has remote history of some meth use. He reports chewing tobacco and using nicotine pouches but denies smoking cigarettes. He denies suicidal ideation. Patient is companied by his girlfriend and his CODE STATUS is always been full code Physical Exam Narrative: EXAM NARRATIVE: Patient sitting up in the bed alert very talkative active and energetic. He is moving his neck freely. Pupils equal and reactive to light. Normal appearing conjunctiva. Full range ocular motion. Neck is supple. No tenderness over his neck or back. Heart regular rhythm. Lung sounds are clear. He does have JVD bilaterally. Abdomen soft nontender. Extremities warm appear well-perfused. No pitting edema. He has his fistula in his arm with a thrill. Patient speech is clear. No drift in his arms. He moves his legs freely. Denies suicidal ideation. Course Vital Signs: Vital signs: Vital Signs Temperature 98.0 F 06/03/25 18:21 Pulse Rate 72 06/03/25 20:58 Respiratory Rate 18 06/03/25 20:58 Blood Pressure 160/116 06/03/25 20:58 Pulse Oximetry 99 06/03/25 20:58 Oxygen Delivery Me thod Room Air 06/03/25 18:44 MDM - General Adult Medical Decision Making Patient is alert talkative interactive. He states he is been noncompliant with his medication. He states he used to be on seizure medication but stopped taking all of it quite sometime back. No recent seizure. He states that he has not had any of his medications since Thursday due to some social situations. He states he is safe and he is here with his mother and he denies any suicidal ideation and denies any drug abuse. He states he did his dialysis on Thursday but has not had dialysis since then. He states no fever. No chest pain or shortness of breath or vomiting or black or bloody stools. No leg pain or swelling. He denies any shortness of breath. He states he just feels a little off and like some pressure on his head like he feels when his blood pressure gets too high. He states he is supposed to be on hydralazine 100 mg 3 times a day and on labetalol and he states he takes amlodipine and losartan as well. Patient has labetalol and hydralazine on his current medication list. I ordered a dose of 100 mg of hydralazine p.o. and 20 mg of labetalol IV. I ordered CT of his head CBC CMP to check his electrolytes and hemoglobin. Will monitor his response. I advised the importance of medication compliance and scheduled dialysis. The patient is breathing comfortably. Will check his potassium to see if there is indication for emergent dialysis. Patient EKG to my interpretation shows sinus rhythm with a rate of 70 bpm. Patient now tells me he is waiting for pain management for his chronic pain in his head and neck. He tells me that he takes 5 mg of amlodipine daily and he takes 50 mg of losartan daily but states he is prescribed 25 mg daily but he had increased his own dose because of his blood pressure. I ordered 25 mg of losartan p.o. and 5 mg amlodipine p.o. Patient's blood pressures improved already. Patient states additionally they will give him as needed clonidine when he is at dialysis when his blood pressure is elevated. Patient's white count is 5.4. Patient hemoglobin 10.5. Platelet count 158. Metabolic panel is pending. Chest x-ray negative for acute process per radiology. CT of the head does not show acute intracranial abnormality. Patient states he gets headache cocktails with Benadryl and other medications he cannot remember and requested a migraine cocktail. I ordered Compazine and Benadryl IV. Patient states he has not had any sudden onset headache to suggest sentinel leak. He states that his chronic recurrent headaches associated with his blood pressure. He states he has been on sumatriptan in the past as well for these headaches. He has no meningeal signs. Denies fever. He is moving his neck freely. I have discussed with the patient at length treatment plan and testing and workup. He states he came here to get his labs checked since he had missed his last hemodialysis. I advised patient pending evaluation and treatment plan. He understands serious risk of electrolyte abnormality and fluid overload among other potential causes of his symptoms. I have checked on the patient multiple times. His blood pressure has been improving. Patient decided to leave AGAINST MEDICAL ADVICE however and states that is taking too long and he is leaving. Patient's initial metabolic panel hemolyzed according to the lab. I have called lab to check on his blood work and they are continuing to work on it and a second sample was obtained. Patient however was unwilling to stay and has left AGAINST MEDICAL ADVICE prior to completing his medical screening evaluation. Patient shows capacity is capable and informed and I do not find indication to hold the patient against as well. Patient understands serious potential life-threatening causes of his symptoms and elevated blood pressure and reasoning for workup and evaluation. Lab Data 06/03/25 19:53 06/03/25 20:57 Radiology Impressions Chest X-Ray 06/03/25 18:52 IMPRESSION: No acute findings. Head CT 06/03/25 18:52 IMPRESSION: No acute intracranial abnormality. Paranasal sinus mucosal polyps versus retention cysts. Laboratory Results WBC 5.44 10^3/uL (3.29-11.43) 06/03/25 19:53 RBC 3.31 10^6/uL (3.85-5.65) L 06/03/25 19:53 Hgb 10.50 g/dL (11.27-16.99) L 06/03/25 19:53 Hct 31.8 % (37-53) L 06/03/25 19:53 MCV 96.1 fl (82-101) 06/03/25 19:53 MCH 31.7 pg (27-33) 06/03/25 19:53 MCHC 33.0 g/dL (30-55) 06/03/25 19:53 RDW 17.0 % (12.1-15.1) H 06/03/25 19:53 Plt Count 158 10^3/cmm (157-399) 06/03/25 19:53 MPV 11.4 fL (7.4-10.4) H 06/03/25 19:53 Neut % (Auto) 62.0 % 06/03/25 19:53 Lymph % (Auto) 16.9 % 06/03/25 19:53 [place] % (Auto) 15.3 % 06/03/25 19:53 Eos % (Auto) 3.9 % 06/03/25 19:53 Baso % (Auto) 1.7 % 06/03/25 19:53 Neut # (Auto) 3.38 10^3/uL (1.8-7.7) 06/03/25 19:53 Lymph # (Auto) 0.9 10^3/uL (0.8-4.8) 06/03/25 19:53 [place] # (Auto) 0.8 10^3/uL (0.2-0.9) 06/03/25 19:53 Eos # (Auto) 0.2 10^3/uL (0.0-0.8) 06/03/25 19:53 Baso # (Auto) 0.1 10^3/uL (0.0-0.1) 06/03/25 19:53 Nucleated RBC % (auto) 0 % 06/03/25 19:53 Nucleated RBCs # 0.0 /100WBC 06/03/25 19:53 Sodium Cancelled 06/03/25 19:53 Potassium Cancelled 06/03/25 19:53 Chloride Cancelled 06/03/25 19:53 Carbon Dioxide Cancelled 06/03/25 19:53 Anion Gap Cancelled 06/03/25 19:53 BUN Cancelled 06/03/25 19:53 Creatinine Cancelled 06/03/25 19:53 GFR Calculation Cancelled 06/03/25 19:53 Glucose Cancelled 06/03/25 19:53 POC Glucose 128 mg/dL (70-110) H 06/03/25 18:27 Calculated Osmolality Cancelled 06/03/25 19:53 Calcium Cancelled 06/03/25 19:53 Total Bilirubin Cancelled 06/03/25 19:53 AST Cancelled 06/03/25 19:53 ALT Cancelled 06/03/25 19:53 Alkaline Phosphatase Cancelled 06/03/25 19:53 Total Protein Cancelled 06/03/25 19:53 Albumin Cancelled 06/03/25 19:53 Globulin Cancelled 06/03/25 19:53 All radiology interpretation(s) finalized by discharge Discharge Plan Discharge Patient Disposition: Left Against Medical Advice Clinical Impression: Noncompliance with medication regimen, Hypertension CKD (chronic kidney disease) Qualifiers: Chronic kidney disease stage: on chronic dialysis Qualified Code(s): N18.6 - End stage renal disease Condition: Fair Prescriptions: No Action B-complex with vitamin C Tablet 1 tab PO DAILY 30 Days Qty: 30 1RF divalproex 500 mg tablet,delayed release (DR/EC) 500 mg PO BID 30 Days Qty: 60 1RF trazodone 50 mg tablet 50 mg PO BEDTIME levetiracetam 500 mg tablet See Rx Instructions .ROUTE .COMPLEX Rx Instructions: Take 1 Tablet (500 mg) by mouth 2 times daily. If you have dialysis before 9 AM, please wait to take your morning dose of Keppra until after dialysis. sevelamer carbonate 800 mg tablet 800 - 1,600 mg PO TID prednisone 5 mg tablet 5 mg PO DAILY Qty: 60 2RF Rx Instructions: Take 10 mg for 4 weeks, then 5 mg daily sumatriptan 20 mg/actuation spray,non-aerosol 20 mg INTRANASAL Q12H PRN (Reason: Migraine Headache) methocarbamol 500 mg tablet 500 - 1,000 mg PO Q6H PRN (Reason: Muscle Spasm) hydralazine 100 mg tablet 100 mg PO TID labetalol 100 mg tablet 200 mg PO BID RenaPlex-D 800 mcg-12.5 mg -2,000 unit tablet 1 tab PO DAILY clonazepam [Klonopin] 1 mg tablet 1 mg PO BID PRN (Reason: anxiety) Qty: 10 0RF Referrals: Renetta Cole LOCOMOTIVE PIPE FITTER [Primary Care Provider, Nurse Practitioner] Print Language: Kyrgyz Coding Level of Care Code ED Gas Meter Mechanic for Loida Menon
[2025-06-03] MEDS: labetalol 5 mg/mL SDV 20mL 20 MG IVP (19:54)
[2025-06-03 20:00] LABS: Hematocrit 31.8 % (37-53); Hemoglobin 10.50 g/dL (11.27-16.99); Mean Corpuscular HGB Conc 33.0 g/dL (30-55); Mean Corpuscular Hemoglobin 31.7 pg (27-33); Mean Corpuscular Volume 96.1 fl (82-101); Nucleated Red Blood Cells % 0 %; Platelet Count 158 10^3/cmm (157-399); Red Blood Count 3.31 10^6/uL (3.85-5.65); White Blood Count 5.44 10^3/uL (3.29-11.43)
[2025-06-03] MEDS: diphenhydrAMINE 50 mg/mL SDV 1mL 25 MG IVP (20:15)
[2025-06-03 21:26] LABS: Alanine Aminotransferase < 5 U/L (0-41); Albumin Level 4.6 g/dL (3.5-5.2); Alkaline Phosphatase 91 U/L (40-130); Anion Gap 25.4 (5-19); Aspartate Amino Transferase 10 U/L (0-40); Calcium 8.8 mg/dL (8.5-10.5); Carbon Dioxide 20 mmol/L (22-29); Chloride 95 mmol/L (98-107); Creatinine Clr Calc Pharmacy 5.1810; Globulin 1.7 g/dL (1.3-4.6); Glucose 84 mg/dL (65-115); Osmolality Calculated 306 mOsm/kg (285-295); Potassium 4.4 mmol/L (3.5-5.1); Sodium 136 mmol/L (136-145); Total Protein 6.3 g/dL (6.6-8.7)
[2025-06-03 21:28] LABS: Blood Urea Nitrogen 82 mg/dL (6-20)
== END 2025-06-03 21:07 | disposition left against medical advice (07) ==
PROVIDERS: Emergency Provider Emergency Medicine; PCP Nurse Practitioner Family
DX: I12.0 Hypertensive chronic kidney disease with stage 5 chronic kidney disease or end stage renal disease (principal); N18.5 Chronic kidney disease, stage 5; Z99.2 Dependence on renal dialysis; Z91.158 Patient's noncompliance with renal dialysis for other reason
CPT/HCPCS: 36415; 36416; 70450; 71045; 80053; 82962; 85025; 93005; 96374; 96375; 99285; J0780; J1200; J3490; J9999

== ENCOUNTER 2025-06-04 18:51 | Observation (INO) | payer OTHER, MEDICAID, SELFPAY ==
--- OUTSIDE RECORDS SUMMARY | 2025-05-29 14:40 | XMS_ITS | Encounter Summary ---
Author Organization [facility] Address [address] [place] [address] Care Team Providers Care Manager Risk Management Name Role Phone Beverly Veronica MD Primary Care Provider [phone] Reason for Referral * Eval and Treat (Routine) - Open Specialty Diagnoses / Procedures Referred By Contac t Referred To Contact Diagnoses Seizure disorder (CMS/HCC) Procedures ID OFFICE/OUTPATIENT ESTABLISHED MOD MDM 30 MIN ID OFFICE/OUTPATIENT NEW MODERATE MDM 45 MINUTES Beverly Veronica MD [address] [place] [address] Phone: tel: fax: [facility] [address] CALL TO MAKE APPOINTMENT ONLY [address] [place] [address] Phone: tel: fax: Referral ID Status Reason Start Date Expiration Date Visits Re quested Visits Authorized [id number] Open 05/29/2025 05/29/2026 1 1 Reason for Visit * Reason Comments Establish Care Sore On the bottom of lef t foot Encounter Details Date Type Department Care Team (Late st Contact Info) Description 05/29/2025 2:40 PM CDT Office Visit [facility] Medicine [address] [address] Beverly Veronica MD [address] [place] [phone] Abrasion, foot without infection (Primary Dx); Seizure disorder ([facility]); Severe major depressive disorder ([facility]); ESRD (end stage renal disease) ([facility]) Social History Tobacco Use Types Packs/Day Years Used Date Smoking Tobacco: Never Smokeless Tobacco: Former Chew Alcohol Use Standard Drinks/Week Comments Never 0 (1 standard drink = 0.6 oz pur e alcohol) Sex and Gender Information Value Date Recorded Sex Assigned at Not on file Legal Sex 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 Seizure disorder ([facility]) G40.909 345.90 AMB REFERRAL TO NEUROLOGY 3. Severe major depressive disorder (CMS/HCC) F32.2 296.23 managing 4. ESRD (end stage renal disease) ([facility]) N18.6 585.6 Currently on dialysis after renal transplant as a child Nephrology managing Beverly Veronica MD Outpatient Medications Marked as Taking for the 05/29/25 encounter (Office Visit) with Desiree Veronica MD Medication Sig Dispense Refill vit B,B-ZN-jfyk-selen-vit D3-E (RenaPlex-D) 800 mcg-12.5 mg -2,000 unit [...] Info) Description 06/15/2025 12:15 PM CDT Appointment [facility] [address] [place] [address] Garry Randolph MD [address] [place] [address] 12/05/2025 2:40 PM SUPPLY AND DISTRIBUTION MANAGER Office Visit [address] [phone] Beverly Veronica MD [address] [phone] Scheduled Referrals Name Type Priority Associated Diagnoses Orde r Schedule AMB REFERRAL TO NEUROLOGY Outpatient Referral Routine Seizure disorder ([facility]/HCC) Ordered: 05/29/2025 documented as of this encounter [...] documented as of this encounter Care Teams Manager Risk Management Relationship Specialty Start Date End Date Beverly Veronica MD [address] [phone] PCP - General Family Practice 05/29/25 documented as of this encounter
[2025-06-04 18:52] VITALS: BP 155/89; PULSE 78; RESP 18; TEMP 36.9; O2SAT 100; BMI 19.3
--- OUTSIDE RECORDS SUMMARY | 2025-06-04 18:55 | XMS_ITS | Encounter Summary ---
Author Organization [facility] [employer] Address [address] [place] [address] Phone Care Team Providers Care Ase Certified Technician Name Role Phone Unavailable Primary Care Provider Unavailabl e Encounter Details Date Type Department Care Team (Late st Contact Info) Description 05/30/2025 Orders Only [facility] [address] [place] [address] Shahriar Byers MD [address] [place] [address] Social History Tobacco Use Types [...] * [facility] EDUARDO Lab Results (05/30/2025) Pathologist [facility] spKt/V Got 2.27 [facility] ge Center PCR 52.97 [facility] eKdrt/V 1.94 [facility] WSTDKT/V 2.8 [facility] spKt/V (Daugirdas II) 2.35 [facility] eKt/V Gotch 1.94 [facility] e Center nPCR_HD 1.20 [facility] eNPCR 1.06 [facility] eKt/V (Tattersall) 2.03 [facility] 05/30/2025 05/30/2025 [facility] Ordering Provider LAB BLOOD ORDERABLES Final Result [facility] Contact Performing lab Unknown, [place] * (ABNORMAL) HD KINETICS (05/30/2025) Pathologist [facility] % Urea Reduction 84(H) 65 - 80 % [facility] 05/30/2025 05/31/2025 10: 48 AM CDT Narrative Resulting Agency Comment Specimen source: Plasma Shahriar Byers MD LAB BLOOD ORDERABLES Final Result [employer] [facility] See order comments or contact performing lab Unknown, [place] * POST CHEMISTRY (05/30/2025) Pathologist [facility] BUN Post Dialysis 11 6 - 19 mg/dL [facility] 05/30/2025 05/31/2025 10: 48 AM CDT Narrative [facility] - 05/31/2025 Unless otherwise specified, test(s) performed at: [facility], [address] [place] [address] PAINTER MAINTENANCE: Ryan Singer M.D. For any questions, please call customer service at FREQUENCY:MONTHLY Resulting Agency Comment Specimen source: Plasma Shahriar Byers MD LAB BLOOD ORDERABLES Final Result [employer] [facility] See order comments or contact performing lab Unknown, [place] * (ABNORMAL) HEMATOLOGY (05/30/2025) Pathologist [facility] Neutrophils 78.0(H) 40.0 - 75.0 % Spect[facility] [...] 05/30/2025 05/31/2025 1:1 8 PM CDT Narrative [facility] - 05/31/2025 Unless otherwise specified, test(s) performed at: [facility], [address] [place] [address] PAINTER MAINTENANCE: Ryan Singer M.D. For any questions, please call customer service at FREQUENCY:MONTHLY Resulting Agency Comment Specimen source: Blood us Shahriar Byers MD LAB BLOOD ORDERABLES Final Result [facility] See order comments or contact performing lab Unknown, [place] * SPECIAL CHEMISTRY (05/30/2025) [facility] Vitamin D, 25-OH, Total 45.2 30.0 - 100.0 ng/mL [facility] Comment: Please Note: Effective August 17, 2023, the methodology for this test has changed to the [facility]. 05/30/2025 05/31/2025 10: 40 AM CDT Narrative Resulting Agency Comment Specimen source: Serum us hSahriar Byers MD LAB BLOOD BANK TEST O [...] 05/30/2025 05/31/2025 10: 40 AM CDT [facility]ative [facility] - 05/31/2025 Unless otherwise specified, test(s) performed at: [facility], [address] [place] [address] PAINTER MAINTENANCE: Ryan Singer M.D. For any questions, please call customer service at FREQUENCY:MONTHLY Resulting Agency Comment Specimen source: Serum Shahriar Byers MD LAB BLOOD ORDERABLES Final Result Performing Organization Address [facility]/ZIP Co de Phone Number [facility] See order comments or contact performing lab Unknown, [place] * (ABNORMAL) [facility] Chemistry (05/30/2025) PTH 375(H) 16 - 80 pg/mL [facility] 05/30/2025 05/31/2025 9:1 4 AM CDT Narrative [facility] 05/31/2025 Unless otherwise specified, test(s) performed at: [facility], [address] [place] [address] PAINTER MAINTENANCE: Ryan Singer M.D. For any questions, please call customer service at FREQUENCY:MONTHLY Resulting Agency Comment Specimen source: Plasma Shahriar Byers MD LAB BLOOD ORDERABLES Final Result [facility] See order comments or contact performing lab Unknown, [place] documented in this encounter Visit Diagnoses Not on filedocumented in this encounter
--- OUTSIDE RECORDS SUMMARY | 2025-06-04 18:55 | XMS_ITS | Clinical Summary ---
Author Organization [facility] Address [address] [place] [address] Phone Care Team Providers Care Web Press Operator Assistant Name Role Phone Beverly Veronica MD Primary Care Provider [phone]- [phone] Allergies Active Allergy Reactions Criticality Noted Date [...] daily. 30 Tablet 2 5 Active vit B,W-ZF-plvp-se mishel-vit D3-E (RenaPlex-D) 800 mcg-12.5 mg -2,000 [...] Abstract 05/29/2025 2:40 PM CDT Office Visit [address] [address] Beverly Veronica MD Abrasion, foot without infection (Primary Dx); Seizure disorder ([facility]); Severe major depressive disorder ([facility]); ESRD (end stage renal disease) ([facility]) 05/24/2025 External Device Data STL ABSTRACTION Provider, Abstract 05/16/2025 3:00 PM CDT Office Visit [facility] [address] [place] [address] Garry Randolph MD Chronic neck pain (Primary Dx); Myofascial pain; DDD (degenerative disc disease), cervical; Cervical spondylosis without myelopathy; Cervical stenosis of spinal canal 05/16/2025 External Device Data STL ABSTRACTION Provider, Abstract 05/03/2025 External Device Data STL ABSTRACTION Provider, Abstract 04/27/2025 1:26 AM CDT - 04/27/2025 3:02 AM CDT Emergency [facility] Emergency Department [address] [place] [address] Demario Felipe MD Neck pain (Primary Dx); ESRD on hemodialysis ([facility]); Poorly-controlled hypertension Discharge Disposition: Home or Self Care 04/27/2025 Travel 04/26/2025 12:15 AM CDT - 04/26/2025 11:59 PM CDT Hospital Encounter [facility] Emergency Medical Services [facility] [address] [place] [address] Ambulance, [facility] Discharge Disposition: [facility] 04/25/2025 2:50 PM CDT Ancillary Procedure [facility] Orthopedics Orthopedic [facility] [address] [place] [address] Shahriar Mckeon PA Closed dislocation of left elbow, initial encounter 04/25/2025 2:25 PM CDT Ancillary Procedure [facility] [address] [address] Shahriar Mckeon PA Left hand pain; Right hand pain 04/25/2025 2:20 PM CDT Office Visit [facility] Orthopedic [facility] [address] [address] Shahriar Mckeon PA Closed nondisplaced fracture of [...] PNEUM OCOCCAL CONJUGATE VACCINE 20-VALENT (PCV20), POLYSACCHARIDE [id number] CONJUGATE, ADJUVANT 0.5 ML (PF) IM 12/14/2024 [...] on file Legal Sex 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 [facility] ORDERABLES Final R esult * [...] IMPRESSION: No acute intracranial abnormality. [facility] ORDERABLES Final R esult * (ABNORMAL) CBC WITH DIFFERENTIAL (04/26/2025 9:24 PM CDT) [facility] WBC 11.0 4.5 - 11.0 K/uL 04/26/2025 9:54 PM CDT [facility] RBC 3.38(L) 4.60 - 6.20 M/uL 04/26/2025 9:54 PM CDT [facility] HEMOGLOBIN 10.3(L) 14.0 - 18.0 g/dL 04/26/2025 9:54 PM CDT [facility] HEMATOCRIT 33.3(L) 41.0 - 53.0 % 04/26/2025 9:54 PM CDT [facility] MCV 98.5 84.0 - 103.0 fL 04/26/2025 9:54 PM CDT [facility] MCH 30.5 27.0 - 34.0 pg 04/26/2025 9:54 PM CDT [facility] MCHC 30.9 30.0 - 35.0 g/dL 04/26/2025 9:54 PM CDT [facility] PLATELETS 213 140 - 440 K/uL 04/26/2025 9:54 PM [facility] MPV 10.9 8.9 - 12.8 fL 04/26/2025 9:54 PM [facility] RDW 17.2(H) 11.0 - 14.5 % 04/26/2025 9:54 PM [facility] RDW-STDEV 60.4(H) 37.0 - 54.0 fL 04/26/2025 9:54 PM T [facility] NEUTROPHILS 92(H) 42 - 75 % 04/26/2025 9:54 PM [facility] LYMPHOCYTES 4(L) 24 - 44 % 04/26/2025 9:54 PM T [facility] MONOCYTES 2 2 - 10 % 04/26/2025 9:54 PM CDT [facility] EOSINOPHILS 1 0 - 7 % 04/26/2025 9:54 PM [facility] BASOPHILS 1 0 - 1 % 04/26/2025 9:54 PM [facility] IMMATURE GRANULOCYTES 1 0 - 2 % 04/26/2025 9:54 PM [facility] NEUTROPHIL ABSOLUTE 10.16(H) 2.00 - 8.00 K/uL 04/26/2025 9:54 PM [facility] LYMPHOCYTE ABSOLUTE 0.47(L) 1.20 - 4.00 K/uL 04/26/2025 9:54 PM [facility] MONOCYTE ABSOLUTE 0.22 0.10 - 0.60 K/uL 04/26/2025 9:54 PM [facility] EOSINOPHIL ABSOLUTE 0.06 0.00 - 0.70 K/uL 04/26/2025 9:54 PM CDT [facility] BASOPHILS ABSOLUTE 0.05 0.00 - 0.20 K/uL 04/26/2025 9:54 PM [facility] IMMATURE GRANULOCYTES ABSOLUTE 0.07 0.00 - 0.10 K/uL 04/26/2025 9:54 PM [facility] SMEAR REVIEWED: NN - No Action Needed 04/26/2025 9:54 PM [facility] Blood Venipuncture / Unknown 04/26/2025 9:24 PM CDT 04/26/2025 9:39 PM CDT Constance Joseph McTeer TRIM CREW SUPERVISOR HEMATOLOGY ORDERABLES F inal Result [facility] CLIA # [id number] [address] [address] [place] [address] * (ABNORMAL) COMPREHENSIVE METABOLIC PANEL (04/26/2025 9:24 PM CDT) Pathologist [facility] SODIUM 137 136 - 145 mmol/L 04/26/2025 10:15 PM CDT [facility] POTASSIUM 5.8(H) 3.5 - 5.1 mmol/L 04/26/2025 10:15 PM CDT [facility] CHLORIDE 95(L) 98 - 107 mmol/L 04/26/2025 10:15 PM CDT [facility] CO2 27 22 - 29 mmol/L 04/26/2025 10:15 PM CDT [facility] CALCIUM 9.4 8.6 - 10.0 mg/dL 04/26/2025 10:15 PM CDT [facility] BUN 22(H) 6 - 20 mg/dL 04/26/2025 10:15 PM CDT [facility] CREATININE 4.63(H) 0.67 - 1.17 mg/dL 04/26/2025 10:15 PM CDT [facility] GLUCOSE 98 74 - 99 mg/dL 04/26/2025 10:15 PM CDT [facility] TOTAL PROTEIN 7.4 6.4 - 8.3 g/dL 04/26/2025 10:15 PM CDT [facility] ALBUMIN 5.0 3.5 - 5.2 g/dL 04/26/2025 10:15 PM CDT [facility] BILIRUBIN TOTAL 0.2 0.0 - 1.0 mg/dL 04/26/2025 10:15 PM CDT [facility] ALKALINE PHOSPHATASE 95 40 - 129 U/L 04/26/2025 10:15 PM CDT [facility] AST 11 10 - 50 U/L 04/26/2025 10:15 PM CDT [facility] ALT 7 <=50 U/L 04/26/2025 10:15 PM CDT [facility] GFR 17(L) >=60 mL/min/1. 73 sq meter 04/26/2025 10:15 PM CDT [facility] Comment:eGFR calculated with 2020 CKD-EPI equation. Vegetarian diet, extremely high or low muscle mass, and may affect results. Cystatin C with Glomerular Filtration Rate is a suitable alternative for these patients. ANION GAP 15 9 - 20 mmol/L 04/26/2025 10:15 PM CDT [facility] Blood Venipuncture / Unknown 04/26/2025 9:24 PM CDT 04/26/2025 9:39 PM CDT Constance Lim TRIM CREW SUPERVISOR CHEMISTRY ORDERABLES Fi nal Result [facility] CLIA # [id number] [address] [place] [address] * INSERT PERIPHERAL IV (04/26/2025 9:20 PM CDT) Narrative Nahum Matos RN - 04/26/2025 9:20 PM CDT Nahum Matos RN 04/26/2025 9:39 PM VASCULAR ACCESS TEAM Peripheral IV insertion with lab collection PATIENT NAME: Vance Sainz DATE OF : 2000 CSN: [id number] DATE: 04/26/2025 Room: Room/bed info not found [...] well. Nahum Matos RN Constance Joseph [facility] TRIM CREW SUPERVISOR IV THERAPY ORDERABLES F inal Result * XR ELBOW 3+ VW LEFT (04/25/2025 2:57 PM CDT) Anatomical Region Laterality Modality Upper Extremity Computed Radiogr aphy Narrative 04/26/2025 8:52 AM CDT X-rays obtained of the left elbow on April 25, 2025 independently reviewed which does not demonstrate any acute osseous abnormalities, fractures, or dislocations noted. [facility] ORDERABLES Fi nal Result * [...] chronic and healed fifth metacarpal neck fracture. [facility] ORDERABLES Fi nal Result from Last 3 Months Insurance MEDICAID [place] [facility] DUAL COMPLETE HMO DSNP [facility] [id number] RX [employer] RX Member Subscriber Plan / Payer (Ef fective 2025-Present) Name:Alistair Vance Barrera Relation to Subscriber:Self Name:Vance Sainz Subscriber ID:Not on file Payer ID:Not on file Group ID:[id number] Type:RX Medicare Part D Address: [address] Advance Directives For more information, please contact: [phone] * Full Code (Latest Code Status on File) Date Activated Date Inactivated Comments 01/31/2025 2:27 PM 02/03/2025 8:44 PM Care Teams Web Press Operator Assistant Relationship Specialty Start Date End Date Beverly Veronica MD [address] [place] [phone] PCP - General Family Practice 05/29/25
--- OUTSIDE RECORDS SUMMARY | 2025-06-04 18:55 | XMS_ITS | Encounter Summary ---
Author Organization [facility] [employer], [facility] Address [address] [facility] [address] [place] [address] Phone Care Team Providers Care Iron Erector Name Role Phone Unavailable Primary Care Provider Unavailabl e Encounter Details Date Type Department Care Team (Late st Contact Info) Description 02/15/2025 TCM in Dialysis [facility] [employer], [facility] [address] [place] [address] Saskia Peterson ENGLISH AND READING INSTRUCTOR [address] [facility] [address] [place] [address] Social History Tobacco Use Types [...] 02/15/2025 The patient was seen for a lltl-hs-poak visit as part of Transitional Care Management services. 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 COMMENTS: See jennifer 1.0. Also hospitalized at [facility] this week for vol overload and [...] Reviewed and updated list in p-hub. Current [facility] Outpatient Medications amlodipine 10 mg [...] by mouth every night at bedtime. Current [facility] Allergies Allergen: No Known Allergies [...] 99.1*F Current Dialysis Vitals BP Sit: 145/84 AP/SANDER OPERATOR: -- Pulse: 88 CARE COORDINATION Post-discharge follow-up [...] Discussed with staff. VISIT DIAGNOSES CPT Code 38629 - High complexity, seen within 7 days [...]
--- OUTSIDE RECORDS SUMMARY | 2025-06-04 18:55 | XMS_ITS | Encounter Summary ---
Author Organization [facility] Address 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 Gender Identity Not on file Sexual Orientation Not on file documented as of this encounter Plan of Treatment Upcoming Encounters Date Type Department Care Team (Late Contact Info) Description 06/15/2025 12:15 PM CDT Appointment [facility] [address] [place] [address] Garry Randolph MD [address] [place] [address] 12/05/2025 2:40 PM PSYCHOLOGY FELLOW Office Visit [facility] Medicine [place] [address] [address] Beverly Veronica MD [address] [address] documented as of this encounter Visit Diagnoses Not on filedocumented in this encounter Additional Health Concerns Assessment Noted Time PHQ-9 Depression Total Score: 3 05/29/20 25 3:06 PM CDT documented as of this encounter Care Teams Oliver Filter Operator Relationship Specialty Start Date End Date Beverly Veronica MD [address] [place] [address] PCP - General Family Practice 05/29/25 documented as of this encounter
--- OUTSIDE RECORDS SUMMARY | 2025-06-04 18:55 | XMS_ITS | Encounter Summary ---
Author Organization [facility] [employer], [facility] Address [address] [address] Phone Care Team Providers Care Medical Staff Services Manager Name Role Phone Unavailable Primary Care Provider Unavailabl e Reason for Visit * Reason Comments Med Refill Encounter Details Date Type Department Care Team (Late st Contact Info) Description 04/14/2024 Refill [facility] [address] [facility] [address] [place] [address] Shahriar Byers MD [address] [address] Social History Tobacco Use Types [...]
--- OUTSIDE RECORDS SUMMARY | 2025-06-04 18:55 | XMS_ITS | Clinical Summary ---
Author Organization [employer] Address [address] [place] [address] Phone Care Team Providers Care Manager Implementation Name Role Phone Unavailable Primary Care Provider [...] patient's age to complete this topic Insurance [facility]ICARE
--- OUTSIDE RECORDS SUMMARY | 2025-06-04 18:55 | XMS_ITS | Encounter Summary ---
Author Organization [facility] Address [address] [address] Phone Care Team Providers Care Handbag Designer Name Role Phone Unavailable Primary Care Provider Unavailabl e Encounter Details Date Type Department Care Team (Late st Contact Info) Description 04/01/2023 Telephone [facility] [address] [address] Shawn Betancourt MD [address] [place] [address] Social History Tobacco Use Types Packs/Day Years [...]
--- OUTSIDE RECORDS SUMMARY | 2025-06-04 18:55 | XMS_ITS | Clinical Summary ---
Author Organization [facility], [facility] Address [address] [place] [address] Phone Care Team Providers Care School Office Assistant Name Role Phone Unavailable Primary Care Provider Unavailabl e Encounters Date Type Department Care Team Description 05/30/2025 Orders Only [place] [facility], [facility] [address] [place] [address] Shahriar Byers MD 05/26/[address] [place] [address] [facility], [facility] [address] [place] [address] Saskia Navas NP End stage renal disease; Dependence on renal dialysis 05/25/[address] [place] [address] [facility], [facility] [address] [place] [address] Saskia Navas NP End stage renal disease; Dependence on renal dialysis 05/23/2025 Orders Only [facility], [facility] [address] [place] [address] Shahriar Byers MD 05/15/2025 Orders Only [facility] [address] [place] [address] Shahriar Byers MD 05/10/2025 Orders Only [email or web address], [facility] [address] [place] [address] Shahriar Byers MD 05/10/[address] [place] [address] [email or web address], [facility] [address] [place] [address] Shahriar Byers MD End stage renal disease; Dependence on renal dialysis 05/05/[address] [place] [address] Nephrology [facility], [facility] [address] [place] [address] Saskia Navas, TINO End stage renal disease; Dependence on renal dialysis 05/03/2025 [facility], [facility] [address] [place] [address] Jasmin Carson MA 05/01/2025 Orders [facility], [facility] [address] [place] [address] Shahriar Byers MD 04/28/[address] [place] [address], [facility] [address] [place] [address] Saskia Navas, TINO End stage renal disease; Dependence on renal dialysis 04/24/2025 Orders Only [place] [facility], [facility] [address] [place] [address] Shahriar Byers MD 04/19/[address] [place] [address], [facility] [address] [place] [address] Saskia Navas, TINO End stage renal disease; Dependence on renal dialysis 04/18/2025 Orders Only [place] [facility], [facility] [address] [place] [address] Shahriar Byers MD 03/29/[address] [place], [place] [address]rology [facility], [facility] [address] [place] [address] Saskia Navas, TINO End stage renal disease; Dependence on renal dialysis 03/27/2025 Orders Only [facility], [facility] [address] [place] [address] Shahriar Byers MD 03/22/[address] [place] [address] [facility], [facility] [address] [place] [address] Saskia Navas NP End stage renal disease; Dependence on renal dialysis 03/20/2025 Orders Only [facility], [facility] [address] [place] [address] Shahriar Byers MD 03/15/2025 Treatment [facility], [facility] [address] [place] [address] Shahriar Byers MD End stage renal disease; Dependence on renal dialysis 03/13/2025 Orders Only [place] [facility], [facility] [address] [place] [address] Shahriar Byers MD 03/08/2025 Treatment [facility], [facility] [address] [place] [address] Saskia Navas NP End stage [...] Urea Reduction 84(H) 65 - 80 % [facility] 05/30/2025 05/31/2025 10: 48 AM CDT Narrative Resulting Agency Comment Specimen source: Plasma Shahriar Byers MD LAB BLOOD ORDERABLES Final Result Performing Organization Address [facility] de Phone Number [employer] See order comments or contact performing lab Unknown, [place] * SPECIAL CHEMISTRY (05/30/2025) Pathologist [facility] Vitamin D, 25-OH, Total 45.2 30.0 - 100.0 ng/mL [facility] Comment: Please Note: Effective August 17, 2023, the methodology for this test has changed to the [employer]. 05/30/2025 05/31/2025 10: 40 AM CDT Narrative Resulting Agency Comment Specimen source: Serum Shahriar Byers MD LAB BLOOD BANK TEST O RDERABLES Final Result Performing Organization Address [facility] de Phone Number [employer] See order comments or contact performing lab Unknown, [place] * POST CHEMISTRY (05/30/2025) Only the most recent of3 resultswithin the time period is included. Pathologist [facility] BUN Post Dialysis 11 6 - 19 mg/dL [facility] 05/30/2025 05/31/2025 10: 48 AM CDT Narrative [facility] - 05/31/2025 Unless otherwise specified, test(s) performed at: [facility], [address] [place] [id number] DISTRICT ADMINISTRATOR: Ryan Singer M.D. For any questions, please call customer service at FREQUENCY:MONTHLY Resulting Agency Comment Specimen source: Plasma Shahriar Byers MD LAB BLOOD ORDERABLES Final Result Performing Organization Address [facility]/ZIP Co de Phone Number [facility] [...] 05/31/2025 Unless otherwise specified, test(s) performed at: [facility], [address] [place], [place] [id number] DISTRICT ADMINISTRATOR: Ryan Singer M.D. For any questions, please call customer service at FREQUENCY:MONTHLY Resulting Agency Comment Specimen source: Blood Shahriar Byers MD LAB BLOOD ORDERABLES Final Result [facility] See order comments or contact performing [...] 05/31/2025 Unless otherwise specified, test(s) performed at: [facility], [address] [place] [id number] DISTRICT ADMINISTRATOR: Ryan Singer M.D. For any questions, please [...] II) 2.35 Knowledge Center eKt/V Gotch 1.94 [facility] nPCR_HD 1.20 Knowledge Center eNPCR 1.06 Knowledge Center eKt/V ([place]) 2.03 [facility] Center 05/30/2025 05/30/2025 [facility] [place] LAB BLOOD ORDERABLES Final Result [facility] Center Contact Performing lab Unknown, [place] from Last 3 Months Insurance Medicaid [place] ([facility]) [facility] Medicare
--- OUTSIDE RECORDS SUMMARY | 2025-06-04 18:55 | XMS_ITS | Encounter Summary ---
Author Organization [facility], [facility] Address [address] [place] [address] Phone Care Team Providers Care Conduit Reamer Operator Name Role Phone Unavailable Primary Care Provider Unavailabl e Encounter Details Date Type Department Care Team (Late st Contact Info) Description 08/27/2022 [facility] [address] [place] [address] Kidney transplant status Social History [...]
--- NOTE | 2025-06-04 18:58 | ECG_ITS ---
[facility] Test Date: 2025-06-04 Pat Name: Vance Sainz Department: Room: Gender: Male Legislative Correspondent: : 2000 Requested By: Serafin Peña Order Number: [id number] Raman MD: Orlando Brown M.D. Measurements Intervals [place] Rate: 83 P: 67 SD: 138 QRS: 38 QRSD: 97 T: 47 QT: 401 QTc: 473 Interpretive Statements SINUS RHYTHM POSSIBLE LEFT ATRIAL ENLARGEMENT [-0.1mV P-WAVE IN V1/V2] Compared to ECG 06/03/2025 18:47:03 Left ventricular hypertrophy no longer present Electronically Signed On 06-05-2025 13:47:06 CDT by Orlando Brown M.D. [email or web address]
[2025-06-04 19:25] LABS: Hematocrit 31.6 % (37-53); Hemoglobin 10.40 g/dL (11.27-16.99); Mean Corpuscular HGB Conc 32.9 g/dL (30-55); Mean Corpuscular Hemoglobin 32.1 pg (27-33); Mean Corpuscular Volume 97.5 fl (82-101); Nucleated Red Blood Cells % 0 %; Platelet Count 150 10^3/cmm (157-399); Red Blood Count 3.24 10^6/uL (3.85-5.65); White Blood Count 5.18 10^3/uL (3.29-11.43)
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
[2025-06-04 19:48] LABS: Alanine Aminotransferase < 5 U/L (0-41); Albumin Level 4.6 g/dL (3.5-5.2); Alkaline Phosphatase 91 U/L (40-130); Anion Gap 30.2 (5-19); Aspartate Amino Transferase 9 U/L (0-40); Calcium 9.1 mg/dL (8.5-10.5); Carbon Dioxide 18 mmol/L (22-29); Chloride 94 mmol/L (98-107); Creatinine Clr Calc Pharmacy 4.5666; Globulin 2.1 g/dL (1.3-4.6); Glucose 124 mg/dL (65-115); Magnesium 3.6 mg/dL (1.7-2.3); Osmolality Calculated 312 mOsm/kg (285-295); Potassium 5.2 mmol/L (3.5-5.1); Sodium 137 mmol/L (136-145); Total Protein 6.7 g/dL (6.6-8.7)
[2025-06-04 20:00] VITALS: BP 143/92; PULSE 69; RESP 17; O2SAT 99
[2025-06-04 20:10] LABS: Blood Urea Nitrogen 88 mg/dL (6-20)
[2025-06-04 22:00] VITALS: BP 140/92; PULSE 76; RESP 18; O2SAT 98
[2025-06-04] MEDS: HYDROcodone-acetaminophen 5-325 mg Tablet 1 TAB PO (22:49)
[2025-06-05] VITALS: BP 140/100; PULSE 87; RESP 18; O2SAT 97
--- NOTE | 2025-06-05 00:15 | PM.HP ---
Providers/Chief Complaint Admitting Physician: Daron Ayala MD Primary Care Provider: Renetta Cole NP Chief Complaint: missed dialysis History of Present Illness Vance Saniz is a 24 year old male with history of noncompliance and missed dialysis as well as a failed transplant kidney in part due to noncompliance but patient states that he was given remdesivir for COVID and shortly after that his kidney failed in 2021 completely. GFR had increased from 16 up to 20 just before that per patient's recollection. 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 He has missed dialysis since his last 1 on Thursday due to social turmoil at home unable to get a ride unable to have a place to live etc. He is companied by his girlfriend Chantell Patient states he is on a 1500 cc fluid restriction by doctors direction and estimates that to be 50 ounces but he states he does not restrict his fluid at all and that it just disappears does not seem to cause fluid weight gain or swelling. He denies shortness of breath or leg edema. Patient came in here today because he said headache congestion some blurry vision is found to have creatinine of 17.6 potassium 5.2, BUN 88 CO2 18 and wants to stay for admission. Dr. Roberts spoke with Dr. Hurtado who plans to start dialysis at 5 AM. Patient states he is unable to do dialysis without his anxiety medicine but has misplaced those at home. States he had missed some of his blood pressure medications as well so blood pressure has been as high as 190/108 patient was seen in the emergency department yesterday and left AMA. Review of Systems Narrative: Patient reports headache but denies chest pain he denies testicular swelling or scrotal swelling. Patient denies leg edema. Patient denies seizure Medications/Allergies Home Medications ?Medication ?Instructions ?Recorded ?Confirmed ?Last Taken ?Type B-complex with vitamin C 1 tab PO DAILY 30 days #30 tabs 08/04/24 04/12/25 09/10/24 Rx divalproex 500 mg tablet,delayed 500 mg PO BID 30 days #60 tabs 08/04/24 04/12/25 09/10/24 Rx release labetalol 100 mg tablet 200 mg PO BID 09/11/24 04/12/25 02/12/25 09:00 History vit B,C-folic ac 800 mcg-zinc 12.5 1 tab PO DAILY 09/11/24 04/12/25 09/10/24 History mg-selen-D3 2,000 unit-vit E tablet (RenaPlex-D) clonazepam 1 mg tablet (Klonopin) 1 mg PO BID PRN anxiety #10 tabs 01/09/25 04/12/25 02/12/25 09:00 Rx levetiracetam 500 mg tablet See Rx Instructions .Route .COMPLEX 02/12/25 04/12/25 02/11/25 09:00 History sevelamer carbonate 800 mg tablet 800 - 1,600 mg PO TID 02/12/25 04/12/25 02/12/25 09:00 History trazodone 50 mg tablet 50 mg PO BEDTIME 02/12/25 04/12/25 01/30/25 21:00 History prednisone 5 mg tablet 5 mg PO DAILY #60 tabs 02/14/25 04/12/25 Unknown Rx hydralazine 100 mg tablet 100 mg PO TID 04/05/25 04/12/25 Unknown History methocarbamol 500 mg tablet 500 - 1,000 mg PO Q6H PRN Muscle 04/05/25 04/12/25 Unknown History Spasm sumatriptan 20 mg/actuation nasal 20 mg intranasal Q12H PRN Migraine 04/05/25 04/12/25 Unknown History spray Headache Allergies Allergy/AdvReac Type Severity Reaction Status Date / Time NSAIDS (Non-Steroidal Allergy Severe unable to Verified 04/04/25 19:07 Anti-Inflamma take due to kidney disease sertraline (From Zoloft) Allergy Unknown Verified 04/04/25 19:07 PFSH Acute PFSH: Medical History (Updated 06/05/25 @ 00:21 by Daron Ayala MD) Noncompliance with renal dialysis Adrenal insufficiency Hypoglycemia CKD (chronic kidney disease) stage V requiring chronic dialysis Generalized anxiety disorder Other stimulant dependence, in remission Problems related to lack of adequate sleep Substance abuse Depression Anxiety Social History (Updated 06/05/25 @ 00:19 by Daron Ayala MD) Smoking and tobacco/nicotine status: unknown if used tobacco/nicotine Quit status (tobacco/nicotine): has tried quititng Number of times tried to quit tobacco: 4 Second hand smoke exposure: No Alcohol intake: never Substance/Drug Use: current Substance/Drug use frequency: Special occassions/opportunity only Additional social history: Patient uses marijuana 1 g every other day he has remote history of some meth use. He reports chewing tobacco and using nicotine pouches but denies smoking cigarettes. He denies suicidal ideation. Patient is companied by his girlfriend and his CODE STATUS is always been full code I confirmed with the patient on 06/05/2025 that he wants full CODE STATUS by Daron Ayala MD Vitals/I&O/Wt Last Vital Signs Temp 98.4 F 06/04/25 18:52 Pulse 76 06/04/25 22:00 Resp 18 06/04/25 22:00 BP 140/92 06/04/25 22:00 Pulse Ox 98 06/04/25 22:00 O2 Del Method Room Air 06/04/25 22:00 Weight last 48 hrs Weight 46.266 kg Physical Exam Narrative: General well-developed well-nourished small statured male in no acute cardiopulmonary distress CV regular rate and rhythm Lungs clear to auscultation bilaterally Abdomen positive bowel tones soft nontender Calves no tenderness cords pretrip edema Data 06/04/25 19:19 06/04/25 19:19 A&P Assessment and plan 1. Noncompliance with renal dialysis: Patient missed his dialysis after Thursday's dialysis. He is uremic with metabolic acidosis. Potassium is high but volume overload is notable by weight for 6 kg but patient states he is only 2 kg up. He is not having trouble breathing 2. Increased anion gap metabolic acidosis: As above 3. Uremic acidosis: As above 4. Noncompliance with medication regimen: Patient missed some of his blood pressure medicines day before yesterday but currently blood pressure is acceptable at 140/92. Will add as needed hydralazine to his home regimen while in the hospital awaiting dialysis PDMP PDMP Reviewed: Not Reviewed Attestations Medical Necessity Statement*: Patient admitted to hospital having missed dialysis and will require greater than 2 midnights Coding Level of Care Code Acute Code for Chg Fwd Diagnoses Noncompliance with renal dialysis Z91.158 Increased anion gap metabolic acidosis E87.29 Uremic acidosis N25.89 Noncompliance with medication regimen Z91.148 Time Spent (min) 55
--- NOTE | 2025-06-05 02:59 | PC.NURSE ---
Went to patient's room to start IV and prepare him to go to his room. I woke him and his significant other was no longer in the room. He had a text on his phone telling him this and he became upset and stated he was going to sign out AMA. He has been on the phone with his father since 209. I have been in and out of the room 3 different times and I asked if he was planning on staying and he advised No, I'm going home on Hospice. I explained to him if he wasn't going to stay we are going to give his room that is assigned to another patient in the ED because we have another patient that needs the bed as well. He informed me that he still has not made up his mind and that we can give the bed to the other patient that needs one. His father is on the phone and proceeded to tell me I was rude and I should not be kicking him out of his bed . The patient explained to his father I was not kicking him out of a bed it's just allowing someone else have his inpatient bed that is waiting on one as well. Called [facility] Specialist, Nisreen, explained the situation to her and the bed will passed to the next patient needing one while this patient is deciding what his next step is.
[2025-06-05 04:00] VITALS: BP 143/87; PULSE 82; RESP 14; O2SAT 98
--- NOTE | 2025-06-05 04:00 | PC.NURSE ---
patient continues to be on the phone with his father and significant other. I explained to him we needed to figure out what we are going to do and he states he is still on the phone trying to find my vehicle . I explained to him again he needs to decide.
[2025-06-05] MEDS: HYDROcodone-acetaminophen 5-325 mg Tablet 1 TAB PO ×2 (05:05→09:29)
[2025-06-05 05:14] VITALS: BP 145/97; PULSE 76; RESP 16; O2SAT 97
[2025-06-05 05:40] VITALS: BMI 19.5
[2025-06-05 05:50] VITALS: BP 155/109; PULSE 73; RESP 15; TEMP 36.7; O2SAT 97
[2025-06-05 06:11] LABS: Anion Gap 29.2 (5-19); Calcium 8.7 mg/dL (8.5-10.5); Carbon Dioxide 18 mmol/L (22-29); Chloride 94 mmol/L (98-107); Creatinine Clr Calc Pharmacy 4.3324; Glucose 75 mg/dL (65-115); Magnesium 3.6 mg/dL (1.7-2.3); Osmolality Calculated 311 mOsm/kg (285-295); Potassium 4.2 mmol/L (3.5-5.1); Sodium 137 mmol/L (136-145)
[2025-06-05 07:15] VITALS: BP 153/99; PULSE 77; RESP 16; TEMP 37
[2025-06-05 07:19] LABS: Blood Urea Nitrogen 93 mg/dL (6-20)
--- NOTE | 2025-06-05 07:51 | PC.NURSE ---
Patient taken to dialysis this morning and is off the floor
[2025-06-05] MEDS: diphenhydrAMINE 50 mg/mL SDV 1mL IM (08:03)
[2025-06-05] MEDS: b-complex-vitamin c Tablet 1 EACH PO (09:29)
[2025-06-05] MEDS: divalproex DR 500 mg Tablet PO (09:29)
--- NOTE | 2025-06-05 09:37 | PC.NURSE ---
Went to dialysis to see patient and administer am medications with PRNs for pain and anxiety. Dr Asher in to see patient. Patient indicated plan to leave AMA after dialysis. Dr Asher is aware.
--- NOTE | 2025-06-05 11:03 | PM.MISC ---
Miscellaneous Note Note: agree with A&P per admitting doc pt in dialysis this morning laying comfortably in bed, does complain of a headache ordered tyelonol
[2025-06-05 11:54] VITALS: BP 151/101; PULSE 71; RESP 16; TEMP 36.9
--- NOTE | 2025-06-05 11:57 | PM.CONSULT ---
Providers/Reason For Consult Consulting Physician/Specialty*: [facility]/Nephrology Reason for Consult*: ESRD Attending Physician: Reyna Asher MD Primary Care Provider: Renetta Cole NP History of Present Illness History of Present Illness Vance Sainz is a 24 year old male With past medical history of end-stage renal disease on dialysis per Thursday schedule, failed kidney transplant, depression, substance abuse, vitamin insufficiency, seizure presented to the emergency department after missing HD x 2 sessions. Labs reviewed Review of Systems Narrative: negative Medications/Allergies Home Medications ?Medication ?Instructions ?Recorded ?Confirmed ?Last Taken ?Type B-complex with vitamin C 1 tab PO DAILY 30 days #30 tabs 08/04/24 04/12/25 09/10/24 Rx divalproex 500 mg tablet,delayed 500 mg PO BID 30 days #60 tabs 08/04/24 04/12/25 09/10/24 Rx release labetalol 100 mg tablet 200 mg PO BID 09/11/24 04/12/25 02/12/25 09:00 History vit B,C-folic ac 800 mcg-zinc 12.5 1 tab PO DAILY 09/11/24 04/12/25 09/10/24 History mg-selen-D3 2,000 unit-vit E tablet (RenaPlex-D) clonazepam 1 mg tablet (Klonopin) 1 mg PO BID PRN anxiety #10 tabs 01/09/25 04/12/25 02/12/25 09:00 Rx levetiracetam 500 mg tablet See Rx Instructions .Route .COMPLEX 02/12/25 04/12/25 02/11/25 09:00 History sevelamer carbonate 800 mg tablet 800 - 1,600 mg PO TID 02/12/25 04/12/25 02/12/25 09:00 History trazodone 50 mg tablet 50 mg PO BEDTIME 02/12/25 04/12/25 01/30/25 21:00 History prednisone 5 mg tablet 5 mg PO DAILY #60 tabs 02/14/25 04/12/25 Unknown Rx hydralazine 100 mg tablet 100 mg PO TID 04/05/25 04/12/25 Unknown History methocarbamol 500 mg tablet 500 - 1,000 mg PO Q6H PRN Muscle 04/05/25 04/12/25 Unknown History Spasm sumatriptan 20 mg/actuation nasal 20 mg intranasal Q12H PRN Migraine 04/05/25 04/12/25 Unknown History spray Headache Allergies Allergy/AdvReac Type Severity Reaction Status Date / Time NSAIDS (Non-Steroidal Allergy Severe unable to Verified 04/04/25 19:07 Anti-Inflamma take due to kidney disease sertraline (From Zoloft) Allergy Unknown Verified 04/04/25 19:07 Current Medications Generic Name Dose Route Start Last Admin Trade Name Sarah PRN Reason Stop Dose Admin Acetaminophen 650 mg 06/05/25 00:39 06/05/25 00:47 Acetaminophen 325 Mg Tablet PO 650 mg Q6H PRN Administration MILD PAIN Hydrocodone Bitart/Acetaminophen 1 tab 06/04/25 22:00 06/05/25 09:29 Hydrocodone-Acetaminophen 5-325 Mg Tablet PO 1 tab Q4H PRN Administration MODERATE TO SEVERE PAIN Clonazepam 1 mg 06/04/25 21:05 06/05/25 09:28 Clonazepam 1 Mg Tablet PO 1 mg BID PRN Administration ANXIETY Divalproex Sodium 500 mg 06/05/25 09:00 06/05/25 09:[address] 500 Mg Tablet PO 500 mg BID OMAR Administration Heparin Sodium (Porcine) 5,000 unit 06/04/25 22:00 06/05/25 11:26 Heparin 5,000 Unit/Ml Inj 1 Ml SUBCUT Not Given Q12H OMAR Hydralazine HCl 100 mg 06/05/25 09:00 06/05/25 09:29 Hydralazine 50 Mg Tablet PO 100 mg TID OMAR Administration Labetalol HCl 200 mg 06/05/25 09:00 06/05/25 09:29 Labetalol 200 Mg Tablet PO 200 mg BID OMAR Administration Levetiracetam 500 mg 06/04/25 21:15 06/05/25 09:29 Levetiracetam 500 Mg Tablet PO 500 mg BID OMAR Administration Methocarbamol 500 mg 06/04/25 21:05 06/05/25 05:05 Methocarbamol 500 Mg Tablet PO 500 mg Q6H PRN Administration Muscle Spasm Multivitamins 1 each 06/05/25 09:00 06/05/25 09:29 R-Ijzuiug-Lnckjzn C Tablet PO 1 each DAILY OMAR Administration Prednisone 5 mg 06/05/25 09:00 06/05/25 09:29 Prednisone 5 Mg Tablet PO 5 mg DAILY OMAR Administration Sevelamer Carbonate 1,600 mg 06/05/25 09:00 06/05/25 09:29 Sevelamer 800 Mg Tablet PO Not Given TID OMAR PFSH Acute PFSH: Medical History (Updated 06/05/25 @ 00:21 by Daron Ayala MD) Noncompliance with renal dialysis Adrenal insufficiency Hypoglycemia CKD (chronic kidney disease) stage V requiring chronic dialysis Generalized anxiety disorder Other stimulant dependence, in remission Problems related to lack of adequate sleep Substance abuse Depression Anxiety Social History (Updated 06/05/25 @ 00:19 by Daron Ayala MD) Smoking and tobacco/nicotine status: unknown if used tobacco/nicotine Quit status (tobacco/nicotine): has tried quititng Number of times tried to quit tobacco: 4 Second hand smoke exposure: No Alcohol intake: never Substance/Drug Use: current Substance/Drug use frequency: Special occassions/opportunity only Additional social history: Patient uses marijuana 1 g every other day he has remote history of some meth use. He reports chewing tobacco and using nicotine pouches but denies smoking cigarettes. He denies suicidal ideation. Patient is companied by his girlfriend and his CODE STATUS is always been full code I confirmed with the patient on 06/05/2025 that he wants full CODE STATUS by Daron Ayala MD Vitals/I&O/Wt Last Vital Signs Temp 98.4 F 06/05/25 11:54 Pulse 71 06/05/25 11:54 Resp 16 06/05/25 11:54 BP 151/101 06/05/25 11:54 Pulse Ox 97 06/05/25 05:50 O2 Del Method Room Air 06/05/25 06:14 06/04/25 06/05/25 06/05/25 22:59 06:59 14:59 Intake Total 400 / 400 Output Total 2775 / 2775 Balance -2375 / -2375 Weight last 48 hrs Weight 45 kg Weight 47.264 kg Weight 47.264 kg Weight 46.777 kg Weight 46.266 kg Physical Exam Narrative: awake , alert peerla S1S2 RRR per report Lung clear per report Abd soft , non tender No edema Data 06/04/25 19:19 06/05/25 05:34 A&P Assessment and plan 1. ESRD on hemodialysis: 1.ESRD:missed HD and now presented with volume overload and hyperkalemia. HD today and UF 3 L 2. Hypertension : resume home medications 3. Hyperkalemia , K 5.2 ,HD on 2K dialysate , low k diet 4. Anemia :Hb 10.4 , monitor 5. metabolic acidosis , should improve with HD Patient seen and examined with a nurse using audiovisual equipment. Patient consented to telehealth and to dialysis. Plan: See above, dialysis today treat blood pressure. PDMP PDMP Reviewed: Not Reviewed Consult Attestations Medical Necessity Statement: per medicine Coding Level of Care Code Acute Code for Chg Fwd Diagnoses ESRD on hemodialysis N18.6; Z99.2
--- NOTE | 2025-06-05 12:25 | PC.NURSE ---
Patient left AMA at this time. Dr Asher was informed and signed AMA paper.
--- NOTE | 2025-06-05 13:28 | P.DS_ITS ---
Discharge Providers Date of Admission: 06/04/25 20:54 Date of Discharge: July 03, 2025 Attending Provider at Admission: Daron Ayala MD Attending Provider at Discharge: Reyna Asher MD Primary Care Provider: Renetta Cole NP Diagnoses at Discharge Discharge Diagnosis 1. ESRD on hemodialysis: Reason for Visit Reason for Visit: missed dialysis Hospital Course Hospital Course PT LEFT AMA Physical Exam Narrative: PT LEFT AMA Discharge Data Studies Completed and Pending Laboratory Results WBC 5.18 10^3/uL (3.29-11.43) 06/04/25 19:19 RBC 3.24 10^6/uL (3.85-5.65) L 06/04/25 19:19 Hgb 10.40 g/dL (11.27-16.99) L 06/04/25 19:19 Hct 31.6 % (37-53) L 06/04/25 19:19 MCV 97.5 fl (82-101) 06/04/25 19:19 MCH 32.1 pg (27-33) 06/04/25 19:19 MCHC 32.9 g/dL (30-55) 06/04/25 19:19 RDW 17.2 % (12.1-15.1) H 06/04/25 19:19 Plt Count 150 10^3/cmm (157-399) L 06/04/25 19:19 MPV 11.3 fL (7.4-10.4) H 06/04/25 19:19 Neut % (Auto) 76.9 % 06/04/25 19:19 Lymph % (Auto) 12.0 % 06/04/25 19:19 Hubbard % (Auto) 9.1 % 06/04/25 19:19 Eos % (Auto) 0.8 % 06/04/25 19:19 Baso % (Auto) 1.0 % 06/04/25 19:19 Neut # (Auto) 3.99 10^3/uL (1.8-7.7) 06/04/25 19:19 Lymph # (Auto) 0.6 10^3/uL (0.8-4.8) L 06/04/25 19:19 Hubbard # (Auto) 0.5 10^3/uL (0.2-0.9) 06/04/25 19:19 Eos # (Auto) 0.0 10^3/uL (0.0-0.8) 06/04/25 19:19 Baso # (Auto) 0.1 10^3/uL (0.0-0.1) 06/04/25 19:19 Nucleated RBC % (auto) 0 % 06/04/25 19:19 Nucleated RBCs # 0.0 /100WBC 06/04/25 19:19 Sodium 137 mmol/L (136-145) 06/05/25 05:34 Potassium 4.2 mmol/L (3.5-5.1) 06/05/25 05:34 Chloride 94 mmol/L (98-107) L 06/05/25 05:34 Carbon Dioxide 18 mmol/L (22-29) L 06/05/25 05:34 Anion Gap 29.2 (5-19) H 06/05/25 05:34 BUN 93 mg/dL (6-20) H* 06/05/25 05:34 Creatinine 18.7 mg/dL (0.7-1.2) H* 06/05/25 05:34 GFR Calculation 3.1 mL/min (90-130) L 06/05/25 05:34 Glucose 75 mg/dL (65-115) 06/05/25 05:34 POC Glucose 127 mg/dL (70-110) H 06/04/25 19:53 Calculated Osmolality 311 mOsm/kg (285-295) H 06/05/25 05:34 Calcium 8.7 mg/dL (8.5-10.5) 06/05/25 05:34 Phosphorus 8.7 mg/dL (2.5-4.5) H* D 06/05/25 05:34 Magnesium 3.6 mg/dL (1.7-2.3) H 06/05/25 05:34 Total Bilirubin 0.2 mg/dL (0.15-1.2) 06/04/25 19:19 AST 9 U/L (0-40) 06/04/25 19:19 ALT < 5 U/L (0-41) 06/04/25 19:19 Alkaline Phosphatase 91 U/L (40-130) 06/04/25 19:19 Total Protein 6.7 g/dL (6.6-8.7) 06/04/25 19:19 Albumin 4.6 g/dL (3.5-5.2) 06/04/25 19:19 Globulin 2.1 g/dL (1.3-4.6) 06/04/25 19:19 Vitals Last Vital Signs Temp 98.4 F 06/05/25 11:54 Pulse 71 06/05/25 11:54 Resp 16 06/05/25 11:54 BP 151/101 06/05/25 11:54 Pulse Ox 97 06/05/25 05:50 O2 Del Method Room Air 06/05/25 06:14 Discharge Plan Discharge Patient Disposition: Left Against Medical Advice Condition: Stable Prescriptions: No Action sumatriptan 20 mg/actuation spray,non-aerosol 20 mg INTRANASAL Q12H PRN (Reason: Migraine Headache) hydralazine 100 mg tablet 100 mg PO TID labetalol 100 mg tablet 200 mg PO BID clonazepam [Klonopin] 1 mg tablet 1 mg PO BID PRN (Reason: anxiety) Qty: 10 0RF fluoxetine 10 mg capsule 10 mg PO DAILY acetaminophen 325 mg Tablet 650 mg PO Q6H PRN (Reason: Mild/Mod Pain Or Temp >/= 101) Qty: 30 0RF losartan 50 mg Tablet 50 mg PO DAILY Qty: 30 0RF nifedipine 30 mg Tablet Extended Release 24hr 90 mg PO DAILY Qty: 30 0RF clonidine HCl 0.1 mg Tablet 0.2 mg PO TID Qty: 90 0RF divalproex 500 mg Tablet,Delayed Release (Dr/Ec) 500 mg PO BID Qty: 60 0RF Referrals: Renetta Cole RESPIRATORY THERAPY INSTRUCTOR [Primary Care Provider, Nurse Practitioner] Patient Instructions: Opioid Safety, Pain Management, Patient Portal & [facility] Instructions Discharge Attestations Time Spent in Discharge Care*: other Status at Discharge: Behavioral status at discharge: cooperative , Quality Metrics Clinical Quality Measures [ No reported AMI, CVA or VTE this stay] Coding Level of Care Code Acute Code for Chg Fwd Diagnoses ESRD on hemodialysis N18.6; Z99.2
--- OUTSIDE RECORDS SUMMARY | 2025-06-09 14:09 | XMS_ITS | Encounter Summary ---
Author Organization [facility], [facility] Address [address] [place] [address] Phone Care Team Providers Care Clerk Rating Name Role Phone Unavailable Primary Care Provider Unavailabl e Encounter Details Date Type Department Care Team (Late st Contact Info) Description 06/05/2025 Orders Only [facility] [address] [place] [address] Shahriar Byers MD [address] [facility] [address] [place] [address] Social History Tobacco Use Types [...] Procedure Name Priority Date/Time Associated Diagnosis Comments HEMATOLOGY Routine 06/05/2025 documented in this encounter Results * (ABNORMAL) HEMATOLOGY (06/05/2025) Hemoglobin 9.6(L) 14.0 - 18.0 g/dL [facility] Hemoglobin x 3 28.8(L) 42.0 - 54.0 % [facility] 06/05/2025 06/06/2025 12: 20 PM CDT Narrative [facility] - 06/06/2025 Unless otherwise specified, test(s) performed at: [facility], [address] [place] [address] INSTRUMENT REPAIRER: Ryan Singer, M.D. For any questions, please call customer service at FREQUENCY:OTHER Resulting Agency Comment Specimen source: Blood us Shahriar Byers MD LAB BLOOD ORDERABLES Final Result [facility] See order comments or contact performing lab Unknown, [place] documented in this encounter Visit Diagnoses Not on filedocumented in this encounter
--- OUTSIDE RECORDS SUMMARY | 2025-06-09 14:09 | XMS_ITS | Encounter Summary ---
Author Organization [facility], [facility] Address [address] [address] Phone Care Team Providers Care Parking Lot Signaler Name Role Phone Unavailable Primary Care Provider Unavailabl e Reason for Visit * Reason Comments Med Refill Encounter Details Date Type Department Care Team (Late st Contact Info) Description 04/14/2024 Refill [facility] [address] [facility] [address] [place] [address] Shahriar Byers MD [address] [address] Social History Tobacco Use Types [...]
--- OUTSIDE RECORDS SUMMARY | 2025-06-09 14:09 | XMS_ITS | Encounter Summary ---
Author Organization [facility], [facility] Address [address] [facility] [address] [place] [address] Phone Care Team Providers Care Postdoctoral Research Associate Name Role Phone Unavailable Primary Care Provider Unavailabl e Encounter Details Date Type Department Care Team (Late st Contact Info) Description 08/27/2022 [facility] [address] [facility] [address] [place] [address] Kidney transplant status Social History [...]
--- OUTSIDE RECORDS SUMMARY | 2025-06-09 14:09 | XMS_ITS | Clinical Summary ---
Author Organization [facility] Address [address] [place] [address] Phone Care Team Providers Care Helicopter Pilot Name Role Phone Unavailable Primary Care Provider [...] patient's age to complete this topic Insurance [facility]
--- OUTSIDE RECORDS SUMMARY | 2025-06-09 14:09 | XMS_ITS | Clinical Summary ---
Author Organization [facility] Address [address] [place] [address] Phone Care Team Providers Care Warehouse Technician Name Role Phone Beverly Veronica MD Primary Care Provider [phone] Allergies Active Allergy Reactions Criticality Noted Date [...] daily. 30 Tablet 2 5 Active vit B,B-FT-oxst-se mishel-vit D3-E (RenaPlex-D) 800 mcg-12.5 mg -2,000 [...] Abstract 05/29/2025 2:40 PM CDT Office Visit [address] [address] Beverly Veronica MD Abrasion, foot without infection (Primary Dx); Seizure disorder ([facility]); Severe major depressive disorder ([facility] ESRD (end stage renal disease) ([facility]) 05/24/2025 External Device Data STL ABSTRACTION Provider, Abstract 05/16/2025 3:00 PM CDT Office Visit [facility] [address] [place] [address] Garry Randolph MD Chronic neck pain (Primary Dx); Myofascial pain; DDD (degenerative disc disease), cervical; Cervical spondylosis without myelopathy; Cervical stenosis of spinal canal 05/16/2025 External Device Data STL ABSTRACTION Provider, Abstract 05/03/2025 External Device Data STL ABSTRACTION Provider, Abstract 04/27/2025 1:26 AM CDT - 04/27/2025 3:02 AM CDT Emergency [facility] Emergency Department [address] [place] [address] Demario Felipe MD Neck pain (Primary Dx); ESRD on hemodialysis ([facility]); Poorly-controlled hypertension Discharge Disposition: Home or Self Care 04/27/2025 Travel 04/26/2025 12:15 AM CDT - 04/26/2025 11:59 PM CDT Hospital Encounter [facility] Emergency Medical Services [facility] [address] [place] [address] Ambulance, [facility] Discharge Disposition: Short [facility] 04/25/2025 2:50 PM CDT Ancillary Procedure [facility] [address] [place] [address] Shahriar Mckeon PA Closed dislocation of left elbow, initial encounter 04/25/2025 2:25 PM CDT Ancillary Procedure [facility] [address] [phone] Shahriar Mckeon PA Left hand pain; Right hand pain 04/25/2025 2:20 PM CDT Office Visit [facility] [address] [address] Shahriar Mckeon PA Closed nondisplaced fracture of [...] PNEUM OCOCCAL CONJUGATE VACCINE 20-VALENT (PCV20), POLYSACCHARIDE VUN620 CONJUGATE, ADJUVANT 0.5 ML (PF) IM 12/14/2024 [...] who hurts you emotionally and/or physically? No 04/26/2025 Food Insecurity Answer Date Recorded Patient needs follow up regardin 02/10/2025 Transportation Needs Answer Date Record ed Patient needs follow up regardin 02/10/2025 Housing Stability Answer Date Recorded Social/Environmental Concerns No concerns Utility Needs Answer Date Recorded Patient needs follow up regardin 02/10/2025 Sex and Gender Information Value Date Recorded Sex Assigned at Not on file Legal Sex Male 8:04 PM DISTRIBUTION CENTER MANAGER Gender Identity Not on file Sexual [...] Info) Description 06/15/2025 12:15 PM CDT Appointment [facility] [address] [place] [address] Garry Randolph MD [address] [place] [address] 12/05/2025 2:40 PM DISTRIBUTION CENTER MANAGER Office Visit [facility] Medicine [address] [phone] Beverly Veronica MD [address] [address] Health Maintenance Due Date Last [...] No acute cervical spine abnormalities. Constance Lim [facility] ORDERABLES Final R esult * [...] IMPRESSION: No acute intracranial abnormality. Constance Joseph [facility] CT ORDERABLES Final R esult * (ABNORMAL) CBC WITH DIFFERENTIAL (04/26/2025 9:24 PM CDT) Pathologist [facility] WBC 11.0 4.5 - 11.0 K/uL 04/26/2025 9:54 PM CDT [facility] RBC 3.38(L) 4.60 - 6.20 M/uL 04/26/2025 9:54 PM CDT [facility] HEMOGLOBIN 10.3(L) 14.0 - 18.0 g/dL 04/26/2025 9:54 PM CDT [facility] HEMATOCRIT 33.3(L) 41.0 - 53.0 % 04/26/2025 9:54 PM CDT [facility] MCV 98.5 84.0 - 103.0 fL 04/26/2025 9:54 PM CDT [facility] MCH 30.5 27.0 - 34.0 pg 04/26/2025 9:54 PM CDT [facility] MCHC 30.9 30.0 - 35.0 g/dL 04/26/2025 9:54 PM [facility] PLATELETS 213 140 - 440 K/uL 04/26/2025 9:54 PM [facility] MPV 10.9 8.9 - 12.8 fL 04/26/2025 9:54 PM [facility] RDW 17.2(H) 11.0 - 14.5 % 04/26/2025 9:54 PM [facility] RDW-STDEV 60.4(H) 37.0 - 54.0 fL 04/26/2025 9:54 PM [facility] NEUTROPHILS 92(H) 42 - 75 % 04/26/2025 9:54 PM [facility] LYMPHOCYTES 4(L) 24 - 44 % 04/26/2025 9:54 PM [facility] MONOCYTES 2 2 - 10 % 04/26/2025 9:54 PM [facility] EOSINOPHILS 1 0 - 7 % 04/26/2025 9:54 PM [facility] BASOPHILS 1 0 - 1 % 04/26/2025 9:54 PM [facility] IMMATURE GRANULOCYTES 1 0 - 2 % 04/26/2025 9:54 PM [facility] NEUTROPHIL ABSOLUTE 10.16(H) 2.00 - 8.00 K/uL 04/26/2025 9:54 PM [facility] LYMPHOCYTE ABSOLUTE 0.47(L) 1.20 - 4.00 K/uL 04/26/2025 9:54 PM [facility] MONOCYTE ABSOLUTE 0.22 0.10 - 0.60 K/uL 04/26/2025 9:[facility]OLUTE 0.06 0.00 - 0.70 K/uL 04/26/2025 9:54 [facility] BASOPHILS ABSOLUTE 0.05 0.00 - 0.20 K/uL 04/26/2025 9:54 PM [facility] IMMATURE GRANULOCYTES ABSOLUTE 0.07 0.00 - 0.10 K/uL 04/26/2025 9:54 PM CDT [facility] SMEAR REVIEWED: NN - No Action Needed 04/26/2025 9:54 PM CDT [facility] Blood Venipuncture / Unknown 04/26/2025 9:24 PM CDT 04/26/2025 9:39 PM CDT Constance Lim ARABIC TRANSLATOR HEMATOLOGY ORDERABLES F inal Result [facility] # [id number] [facility] [address] [place] [address] * (ABNORMAL) COMPREHENSIVE METABOLIC PANEL (04/26/2025 9:24 PM CDT) SODIUM 137 136 - 145 mmol/L 04/26/2025 10:15 PM CDT [facility] POTASSIUM 5.8(H) 3.5 - 5.1 mmol/L 04/26/2025 10:15 PM CDT [facility] CHLORIDE 95(L) 98 - 107 mmol/L 04/26/2025 10:15 PM CDT [facility] CO2 27 22 - 29 mmol/L 04/26/2025 10:15 PM CDT [facility] CALCIUM 9.4 8.6 - 10.0 mg/dL 04/26/2025 10:15 PM CDT [facility] BUN 22(H) 6 - 20 mg/dL 04/26/2025 10:15 PM CDT [facility] CREATININE 4.63(H) 0.67 - 1.17 mg/dL 04/26/2025 10:15 PM CDT [facility] GLUCOSE 98 74 - 99 mg/dL 04/26/2025 10:15 PM CDT [facility] TOTAL PROTEIN 7.4 6.4 - 8.3 g/dL 04/26/2025 10:15 PM CDT [facility] ALBUMIN 5.0 3.5 - 5.2 g/dL 04/26/2025 10:15 PM CDT [facility] BILIRUBIN TOTAL 0.2 0.0 - 1.0 mg/dL 04/26/2025 10:15 PM CDT [facility] ALKALINE PHOSPHATASE 95 40 - 129 U/L 04/26/2025 10:15 PM CDT [facility] AST 11 10 - 50 U/L 04/26/2025 10:15 PM CDT [facility] ALT 7 <=50 U/L 04/26/2025 10:15 PM CDT [facility] GFR 17(L) >=60 mL/min/1. 73 sq meter 04/26/2025 10:15 PM CDT [facility] Comment:eGFR calculated with 2020 CKD-EPI equation. Vegetarian diet, extremely high or low muscle mass, and may affect results. Cystatin C with Glomerular Filtration Rate is a suitable alternative for these patients. ANION GAP 15 9 - 20 mmol/L 04/26/2025 10:15 PM CDT [facility] Blood Venipuncture / Unknown 04/26/2025 9:24 PM CDT 04/26/2025 9:39 PM CDT Constance Lim ARABIC TRANSLATOR CHEMISTRY ORDERABLES Fi nal Result [facility] CLIA # [id number] [address] [place] [address] * INSERT PERIPHERAL IV (04/26/2025 9:20 PM CDT) Narrative Nahum Matos RN - 04/26/2025 9:20 PM CDT Nahum Matos RN 04/26/2025 9:39 PM VASCULAR ACCESS TEAM Peripheral IV insertion with lab collection PATIENT NAME: Vance Sainz DATE OF : 2000 CSN: [id number] DATE: 04/26/2025 Room: Room/bed info not found [...] flowsheet Patient tolerated well. Nahum Matos RN Result [facility] Constance Lim ARABIC TRANSLATOR IV THERAPY ORDERABLES F inal Result * XR ELBOW 3+ VW LEFT (04/25/2025 2:57 PM CDT) Anatomical Region Laterality Modality Upper Extremity Computed Radiogr aphy Narrative 04/26/2025 8:52 AM CDT X-rays obtained of the left elbow on April 25, 2025 independently reviewed which does not demonstrate any acute osseous abnormalities, fractures, or dislocations noted. Result [facility] [place] DIAGNOSTIC IMAGING ORDERABLES Fi nal Result * [...] chronic and healed fifth metacarpal neck fracture. Result [facility] [place] DIAGNOSTIC [place] ORDERABLES Fi nal Result from Last 3 Months Insurance [place] [address] [place] [address] DUAL COMPLETE HMO NP [facility] [id number] RX [employer] RX Member Subscriber Plan / Payer (Ef fective 2025-Present) Name:Vance Sainz Relation to Subscriber:Self Name:Vance Sainz Subscriber ID:Not on file Payer ID:Not on file Group ID:[id number] Type:RX Medicare Part D Address: [address] Advance Directives For more information, please contact: [phone] * Full Code (Latest Code Status on File) Date Activated Date Inactivated Comments 01/31/2025 2:27 PM 02/03/2025 8:44 PM Care Teams Warehouse Technician Relationship Specialty Start Date End Date Beverly Veronica MD [address] [place] [phone] PCP - General Family Practice 05/29/25
--- OUTSIDE RECORDS SUMMARY | 2025-06-09 14:09 | XMS_ITS | Encounter Summary ---
Author Organization [place] [facility], [facility] Address [address] [facility] [address] [place] [address] Phone Care Team Providers Care Test Consultant Name Role Phone Unavailable Primary Care Provider Unavailabl e Encounter Details Date Type Department Care Team (Late st Contact Info) Description 02/15/2025 TCM in Dialysis Clinic [facility], [facility] [address] [place] [address] Saskia Peterson REGISTERED PHLEBOTOMIST PART TIME [address] [facility] [address] [place] [address] Social History Tobacco Use Types [...] 02/15/2025 The patient was seen for a [id number] visit as part of Transitional Care Management services. 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 COMMENTS: See jennifer 1.0. Also hospitalized at [facility] this week for vol overload and hyperkalemia [...] Reviewed and updated list in p-hub. Current [facility] Outpatient Medications amlodipine 10 mg tablet Take [...] by mouth every night at bedtime. Current [facility] Allergies Allergen: No Known Allergies Allergen: No [...] 99.1*F Current Dialysis Vitals BP Sit: 145/84 AP/REAL ESTATE PROCESSOR: -- Pulse: 88 CARE COORDINATION Post-discharge follow-up [...] Discussed with staff. VISIT DIAGNOSES CPT Code 70958 - High complexity, seen within 7 days [...]
--- OUTSIDE RECORDS SUMMARY | 2025-06-09 14:09 | XMS_ITS | Clinical Summary ---
Author Organization [place] [facility], [facility] Address [address] [place] [address] Phone Care Team Providers Care Security Operations Center Analyst Name Role Phone Unavailable Primary Care Provider Unavailabl e Encounters Date Type Department Care Team Description 06/05/2025 Orders Only [facility], [facility] [address] [place] [phone] Shahriar Byers MD 05/30/2025 Orders Only [facility], [facility] [address] [place] [address] Shahriar Byers MD 05/26/2025 Treatment [facility], [facility] [address] [place] [phone] Saskia Navas NP End stage renal disease; Dependence on renal dialysis 05/25/[address] [place] [address] [facility], [facility] [address] [place] [address] Saskia Navas NP End stage renal disease; Dependence on renal dialysis 05/23/2025 Orders Only [facility], [facility] [address] [place] [address] Shahriar Byers MD 05/15/2025 Orders Only [facility] [address] [place] [address] Shahriar Byers MD 05/10/2025 Orders Only [facility], [facility] [address] [place] [address] Shahriar Byers MD 05/10/[address] [place] [address] Nephrology [facility], [facility] [address] [place] [address] Shahriar Byers MD End stage renal disease; Dependence on renal dialysis 05/05/2025 [facility], [facility] [address] [place] [address] Saskia Navas, TINO End stage renal disease; Dependence on renal dialysis 05/03/2025 Refill [facility], [facility] [address] [place] [address] Jasmin Carson MA 05/01/2025 Orders Only [facility], [facility] [address] [place] [address] Shahriar Byers MD 04/28/[address] [place], [place] [address]rology [facility], [facility] [address] [place] [address] Saskia Navas, GREEN MEAT GRADER End stage renal disease; Dependence on renal dialysis 04/24/2025 Orders Only [facility], [facility] [address] [place] [address] Shahriar Byers MD 04/19/[address] [place], [place] [address], [facility] [address] [place] [address] Saskia Navas, GREEN MEAT GRADER End stage renal disease; Dependence on renal dialysis 04/18/2025 Orders Only [facility], [facility] [address] [place] [address] Shahriar Byers MD 03/29/2025 Treatment [facility], [facility] [address] [place] [address] Saskia Navas, TINO End stage renal disease; Dependence on renal dialysis 03/27/2025 Orders Only [facility], [facility] [address] [place] [address] Shahriar Byers MD 03/22/2025 Treatment [facility], [facility] [address] [place] [address] Saskia Navas NP End stage renal disease; Dependence on renal dialysis 03/20/2025 Orders Only [facility], [facility] [address] [place] [address] Shahriar Byers MD 03/15/2025 Treatment [facility], [facility] [address] [place] [address] Shahriar Byers MD End stage renal disease; Dependence on renal dialysis 03/13/2025 Orders Only [facility], [facility] [address] [place] [address] Shahriar Byers MD from Last 3 Months Social History Tobacco [...] Date/Time Associated Diagnosis Comments HEMATOLOGY Routine 06/05/2025 [facility] RESULTS Routine 05/30/2025 HD [...] from Last 3 Months Results * (ABNORMAL) HEMATOLOGY (06/05/2025) Only the most recent of11 resultswithin the time period is included. Hemoglobin 9.6(L) 14.0 - 18.0 g/dL [facility] Hemoglobin x 3 28.8(L) 42.0 - 54.0 % [facility] 06/05/2025 06/06/2025 12: 20 PM CDT Narrative [facility] - 06/06/2025 Unless otherwise specified, test(s) performed at: [facility], [address] [place] [address] COMIC BOOK WRITER: Ryan Singer M.D. For any questions, please call customer service at FREQUENCY:OTHER Resulting Agency Comment Specimen source: Blood Shahriar Byers MD LAB BLOOD ORDERABLES Final Result Performing Organization Address City/[facility]/ZIP Co de Phone Number [facility] See order comments or contact performing lab Unknown, [place] * (ABNORMAL) HD KINETICS (05/30/2025) Only the most recent of3 resultswithin the time period is included. % Urea Reduction 84(H) 65 - 80 % [facility] 05/30/2025 05/31/2025 10: 48 AM CDT Narrative Resulting Agency Comment Specimen source: Plasma Shahriar Byers MD LAB BLOOD ORDERABLES Final Result Performing Organization Address City/[facility]/ZIP Co de Phone Number [facility] See order comments or contact performing lab Unknown, [place] * SPECIAL CHEMISTRY (05/30/2025) Vitamin D, 25-OH, Total 45.2 30.0 - 100.0 ng/mL [facility] Comment: Please Note: Effective August 17, 2023, the methodology for this test has changed to the [facility]. 05/30/2025 05/31/2025 10: 40 AM CDT Narrative Resulting Agency Comment Specimen source: Serum Shahriar Byers MD LAB BLOOD BANK TEST O RDERABLES Final Result [facility] See order comments or contact performing lab Unknown, [place] * POST CHEMISTRY (05/30/2025) Only the most recent of3 resultswithin the time period is included. BUN Post Dialysis 11 6 - 19 mg/dL [facility] 05/30/2025 05/31/2025 10: 48 AM CDT Narrative [facility] - 05/31/2025 Unless otherwise specified, test(s) performed at: [facility], [address] [place] [address] COMIC BOOK WRITER: Ryan Singer M.D. For any questions, please call customer service at FREQUENCY:MONTHLY Resulting Agency Comment Specimen source: Plasma Shahriar Byers MD LAB BLOOD ORDERABLES Final Result Performing Organization Address [facility] Co de Phone Number [facility] See order comments or contact performing lab [...] 05/31/2025 Unless otherwise specified, test(s) performed at: [facility], [address] [place] [address] COMIC BOOK WRITER: Ryan Singer M.D. For any questions, please call customer service at FREQUENCY:MONTHLY Resulting Agency Comment Specimen source: Serum Shahriar Byers MD LAB BLOOD ORDERABLES Final Result [employer] [facility] See order comments or contact performing lab Unknown, [place] * [facility] Lab Results (05/30/2025) Only the most recent of2 resultswithin the time period is included. spKt/V Gotch 2.27 [facility] ge Center PCR 52.97 [facility] eKdrt/V 1.94 [facility] WSTDKT/V 2.8 [facility] spKt/V (Daugirdas II) 2.35 [facility] eKt/V Gotch 1.94 [facility] e Center nPCR_HD 1.20 [facility] eNPCR 1.06 [facility] eKt/V (Tattersall) 2.03 [facility] 05/30/2025 05/30/2025 us Eduardo Ordering Provider LAB BLOOD ORDERABLES Final Result [facility] Contact Performing lab Unknown, [place] from Last 3 Months Insurance Medicaid [place] (SKMO0) UHC Medicare
--- OUTSIDE RECORDS SUMMARY | 2025-06-09 14:09 | XMS_ITS | Encounter Summary ---
Author Organization [facility] Address [address] [address] Phone Care Team Providers Care Postal Support Employee Name Role Phone Unavailable Primary Care Provider Unavailabl e Encounter Details Date Type Department Care Team (Late st Contact Info) Description 04/01/2023 Telephone [facility] BUILDING [address] [address] Shawn Betancourt MD [address] [place] [address] Social History Tobacco Use Types Packs/Day Years [...]
== END 2025-06-05 12:28 | disposition left against medical advice (07) ==
LOC: ER 21:37 → ER IP 22:07 → CSU 06-05 07:46 → ER IP 06-09 14:07
PROVIDERS: Emergency Medicine; Admitting Provider Internal Medicine; Emergency Provider Emergency Medicine; PCP Nurse Practitioner Family; Visit Provider Internal Medicine
DX: N18.6 End stage renal disease (principal); Z99.2 Dependence on renal dialysis; Z53.29 Procedure and treatment not carried out because of patient's decision for other reasons; T86.12 Kidney transplant failure; E16.2 Hypoglycemia, unspecified; F41.8 Other specified anxiety disorders; Z91.158 Patient's noncompliance with renal dialysis for other reason; E87.29 Other acidosis; N25.89 Other disorders resulting from impaired renal tubular function; Z91.148 Patient's other noncompliance with medication regimen for other reason
CPT/HCPCS: 36415; 36416; 70450; 71045; 80048; 80053; 82962; 83735; 84100; 85025; 90935; 93005; 96374; 96375; 99285; G0378; J0780; J1200; J3490; J7512; J9999

== ENCOUNTER 2025-06-10 16:31 | Emergency (ER) | payer OTHER, MEDICAID, SELFPAY ==
--- OUTSIDE RECORDS SUMMARY | 2025-06-10 16:36 | XMS_ITS | Encounter Summary ---
Author Organization [facility] [facility], [facility] Address [address] [address] Phone Care Team Providers Care Manager Mac Name Role Phone Unavailable Primary Care Provider Unavailabl e Reason for Visit * Reason Comments Med Refill Encounter Details Date Type Department Care Team (Late st Contact Info) Description 04/14/2024 Refill [facility] [address] [facility] [address] [place] [address] Shahriar Byers MD [address] [address] Social History Tobacco Use Types [...]
--- OUTSIDE RECORDS SUMMARY | 2025-06-10 16:36 | XMS_ITS | Encounter Summary ---
Author Organization [facility], [facility] Address [address] [place] [address] Phone Care Team Providers Care Asbestos Brake Lining Finisher Helper Name Role Phone Unavailable Primary Care Provider Unavailabl e Encounter Details Date Type Department Care Team (Late st Contact Info) Description 06/05/2025 Orders Only [facility] [address] [place] [address] Shahriar Byers MD [address] [facility] [address] [place] [address] Social History Tobacco Use Types [...] x 3 28.8(L) 42.0 - 54.0 % [facility] 06/05/2025 06/06/2025 12: 20 PM CDT Narrative [facility] - 06/06/2025 Unless otherwise specified, test(s) performed at: [facility], [address] [place] [address] REPAIR MANAGER: Ryan Singer, M.D. For any questions, please call customer service at FREQUENCY:OTHER Resulting Agency Comment Specimen source: Blood us Shahriar Byers MD LAB BLOOD ORDERABLES Final Result [facility] See order comments or contact performing lab Unknown, [place] documented in this encounter Visit Diagnoses Not on filedocumented in this encounter
--- OUTSIDE RECORDS SUMMARY | 2025-06-10 16:36 | XMS_ITS | Clinical Summary ---
Author Organization [facility] Address [address] [place] [address] Phone Care Team Providers Care Pet Trainer Name Role Phone Unavailable Primary Care Provider [...] patient's age to complete this topic Insurance [facility]
--- OUTSIDE RECORDS SUMMARY | 2025-06-10 16:36 | XMS_ITS | Encounter Summary ---
Author Organization [facility], [facility] Address [address] [facility] [address] [place] [address] Phone Care Team Providers Care Certified Financial Planner Name Role Phone Unavailable Primary Care Provider Unavailabl e Encounter Details Date Type Department Care Team (Late st Contact Info) Description 02/15/2025 TCM in Dialysis Clinic [facility], [facility] [address] [place] [address] Saskia Peterson APPEALS AND GENERALIST CLERK [address] [facility] [address] [place] [address] Social History Tobacco Use Types [...] 02/15/2025 The patient was seen for a cfnz-uw-seol visit as part of Transitional Care Management services. 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 COMMENTS: See jennifer 1.0. Also hospitalized at [facility] this week for vol overload and [...] Reviewed and updated list in p-hub. Current [facility] Outpatient Medications amlodipine 10 mg tablet [...] by mouth every night at bedtime. Current [facility] Allergies Allergen: No Known Allergies Allergen: [...] 99.1*F Current Dialysis Vitals BP Sit: 145/84 AP/POWERHOUSE OILER: -- Pulse: 88 CARE COORDINATION Post-discharge follow-up [...] Discussed with staff. VISIT DIAGNOSES CPT Code 91043 - High complexity, seen within 7 days [...]
--- OUTSIDE RECORDS SUMMARY | 2025-06-10 16:36 | XMS_ITS | Clinical Summary ---
Author Organization [facility] Address [address] [place] [address] Phone Care Team Providers Care Woods Manager Name Role Phone Beverly Veronica MD Primary Care Provider [phone]- [phone] Allergies Active Allergy Reactions Criticality Noted Date [...] daily. 30 Tablet 2 5 Active vit B,C-CK-hhnw-se mishel-vit D3-E (RenaPlex-D) 800 mcg-12.5 mg -2,000 [...] Abstract 05/29/2025 2:40 PM CDT Office Visit [address] [address] Beverly Veronica MD Abrasion, foot without infection (Primary Dx); Seizure disorder ([facility] Severe major depressive disorder ([facility]); ESRD (end stage renal disease) ([facility]) 05/24/2025 External Device Data STL ABSTRACTION Provider, Abstract 05/16/2025 3:00 PM CDT Office Visit [facility] [address] [place] [address] Garry Randolph MD Chronic neck pain (Primary Dx); Myofascial pain; DDD (degenerative disc disease), cervical; Cervical spondylosis without myelopathy; Cervical stenosis of spinal canal 05/16/2025 External Device Data STL ABSTRACTION Provider, Abstract 05/03/2025 External Device Data STL ABSTRACTION Provider, Abstract 04/27/2025 1:26 AM CDT - 04/27/2025 3:02 AM CDT Emergency [facility] Emergency Department [address] [place] [address] Demario Felipe MD Neck pain (Primary Dx); ESRD on hemodialysis ([facility]); Poorly-controlled hypertension Discharge Disposition: Home or Self Care 04/27/2025 Travel 04/26/2025 12:15 AM CDT - 04/26/2025 11:59 PM CDT Hospital Encounter [facility] Emergency Medical Services [facility] [address] [place] [address] Ambulance, [facility] Discharge [facility] 04/25/2025 2:50 PM CDT Ancillary Procedure [facility] Orthopedics [facility]opedic [facility] [address] [place] [address] Shahriar Mckeon PA Closed dislocation of left elbow, initial encounter 04/25/2025 2:25 PM CDT Ancillary Procedure [facility] [address], [place] [address] Shahriar Mckeon PA Left hand pain; Right hand pain 04/25/2025 2:20 PM CDT Office Visit [facility] [address] [place] [address] Shahriar Mckoen PA Closed nondisplaced fracture of other part [...] PNEUM OCOCCAL CONJUGATE VACCINE 20-VALENT (PCV20), POLYSACCHARIDE [id number] CONJUGATE, ADJUVANT 0.5 ML (PF) IM 12/14/2024 [...] on file Legal 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 Constance Joseph McTeer DISPLAY MECHANIC CT ORDERABLES Final R esult * CT [...] IMPRESSION: No acute intracranial abnormality. Constance Joseph [facility] CT ORDERABLES Final R esult * (ABNORMAL) CBC WITH DIFFERENTIAL (04/26/2025 9:24 PM CDT) [facility] WBC 11.0 4.5 - 11.0 K/uL 04/26/2025 9:54 PM CDT [facility] RBC 3.38(L) 4.60 - 6.20 M/uL 04/26/2025 9:54 PM CDT [facility] HEMOGLOBIN 10.3(L) 14.0 - 18.0 g/dL 04/26/2025 9:54 PM CDT [facility] HEMATOCRIT 33.3(L) 41.0 - 53.0 % 04/26/2025 9:54 PM CDT [facility] MCV 98.5 84.0 - 103.0 fL 04/26/2025 9:54 PM CDT [facility] MCH 30.5 27.0 - 34.0 pg 04/26/2025 9:54 PM CDT [facility] MCHC 30.9 30.0 - 35.0 g/dL 04/26/2025 9:54 PM CDT [facility] PLATELETS 213 140 - 440 K/uL 04/26/2025 9:54 PM [facility] MPV 10.9 8.9 - 12.8 fL 04/26/2025 9:54 PM [facility] RDW 17.2(H) 11.0 - 14.5 % 04/26/2025 9:54 PM [facility] RDW-STDEV 60.4(H) 37.0 - 54.0 fL 04/26/2025 9:54 PM T [facility] NEUTROPHILS 92(H) 42 - 75 % 04/26/2025 9:54 PM [facility] LYMPHOCYTES 4(L) 24 - 44 % 04/26/2025 9:54 PM [facility] MONOCYTES 2 2 - 10 % 04/26/2025 9:54 PM [facility] EOSINOPHILS 1 0 - 7 % 04/26/2025 9:54 PM [facility] BASOPHILS 1 0 - 1 % 04/26/2025 9:54 PM [facility] IMMATURE GRANULOCYTES 1 0 - 2 % 04/26/2025 9:54 PM [facility] NEUTROPHIL ABSOLUTE 10.16(H) 2.00 - 8.00 K/uL 04/26/2025 9:54 PM [facility] LYMPHOCYTE ABSOLUTE 0.47(L) 1.20 - 4.00 K/uL 04/26/2025 9:54 PM [facility] MONOCYTE ABSOLUTE 0.22 0.10 - 0.60 K/uL 04/26/2025 9:54 PM [facility] EOSINOPHIL ABSOLUTE 0.06 0.00 - 0.70 K/uL 04/26/2025 9:54 PM [facility] BASOPHILS ABSOLUTE 0.05 0.00 - 0.20 K/uL 04/26/2025 9:54 PM [facility] IMMATURE GRANULOCYTES ABSOLUTE 0.07 0.00 - 0.10 K/uL 04/26/2025 9:54 PM [facility] SMEAR REVIEWED: NN - No Action Needed 04/26/2025 9:54 PM CDT [facility] Blood Venipuncture / Unknown 04/26/2025 9:24 PM CDT 04/26/2025 9:39 PM CDT Constance Joseph McTeer DISPLAY MECHANIC HEMATOLOGY ORDERABLES F inal Result [facility] CLIA # [id number] [address] [address] [place] [address] * (ABNORMAL) COMPREHENSIVE METABOLIC PANEL (04/26/2025 9:24 PM CDT) SODIUM 137 136 - 145 mmol/L 04/26/2025 10:15 PM CDT [facility] POTASSIUM 5.8(H) 3.5 - 5.1 mmol/L 04/26/2025 10:15 PM CDT [facility] CHLORIDE 95(L) 98 - 107 mmol/L 04/26/2025 10:15 PM CDT [facility] CO2 27 22 - 29 mmol/L 04/26/2025 10:15 PM T [facility] CALCIUM 9.4 8.6 - 10.0 mg/dL 04/26/2025 10:15 PM T [facility] BUN 22(H) 6 - 20 mg/dL 04/26/2025 10:15 PM CDT [facility] CREATININE 4.63(H) 0.67 - 1.17 mg/dL 04/26/2025 10:15 PM CDT [facility] GLUCOSE 98 74 - 99 mg/dL 04/26/2025 10:15 PM CDT [facility] TOTAL PROTEIN 7.4 6.4 - 8.3 g/dL 04/26/2025 10:15 PM CDT [facility] ALBUMIN 5.0 3.5 - 5.2 g/dL 04/26/2025 10:15 PM CDT [facility] BILIRUBIN TOTAL 0.2 0.0 - 1.0 mg/dL 04/26/2025 10:15 PM CDT [facility] ALKALINE PHOSPHATASE 95 40 - 129 U/L 04/26/2025 10:15 PM CDT [facility] AST 11 10 - 50 U/L 04/26/2025 10:15 PM CDT [facility] ALT 7 <=50 U/L 04/26/2025 10:15 PM CDT [facility] GFR 17(L) >=60 mL/min/1. 73 sq meter 04/26/2025 10:15 PM CDT [facility] Comment:eGFR calculated with 2020 CKD-EPI equation. Vegetarian diet, extremely high or low muscle mass, and may affect results. Cystatin C with Glomerular Filtration Rate is a suitable alternative for these patients. ANION GAP 15 9 - 20 mmol/L 04/26/2025 10:15 PM CDT [facility] Blood Venipuncture / Unknown 04/26/2025 9:24 PM CDT 04/26/2025 9:39 PM CDT Constance Lim DISPLAY MECHANIC CHEMISTRY ORDERABLES Fi nal Result [facility] CLIA # [id number] [address] [place] [address] * INSERT PERIPHERAL IV (04/26/2025 9:20 PM CDT) Narrative Nahum Matos RN - 04/26/2025 9:20 PM CDT Nahum Matos RN 04/26/2025 9:39 PM VASCULAR ACCESS TEAM Peripheral IV insertion with lab collection PATIENT NAME: Vance Sainz DATE OF : 2000 CSN: [id number] DATE: 04/26/2025 Room: Room/bed info not found [...] well. Nahum Matos RN Constance Joseph McTeer DISPLAY MECHANIC IV THERAPY ORDERABLES F inal Result * XR ELBOW 3+ VW LEFT (04/25/2025 2:57 PM CDT) Anatomical Region Laterality Modality Upper Extremity Computed Radiogr aphy Narrative 04/26/2025 8:52 AM CDT X-rays obtained of the left elbow on April 25, 2025 independently reviewed which does not demonstrate any acute osseous abnormalities, fractures, or dislocations noted. [employer] DIAGNOSTIC IMAGING ORDERABLES Fi nal Result * [...] chronic and healed fifth metacarpal neck fracture. [employer] DIAGNOSTIC IMAGING ORDERABLES Fi nal Result from Last 3 Months Insurance [place]ICAID [place] [facility] DUAL COMPLETE HMO DSNP [facility] [id number] RX [employer] RX Member Subscriber Plan / Payer (Ef fective 2025-Present) Name:Vance Sainz Relation to Subscriber:Self Name:Vance Sainz Subscriber ID:Not on file Payer ID:Not on file Group ID:[id number] Type:RX Medicare Part D Address: [place] Advance Directives For more information, please contact: [phone] * Full Code (Latest Code Status on File) Date Activated Date Inactivated Comments 01/31/2025 2:27 PM 02/03/2025 8:44 PM Care Teams Woods Manager Relationship Specialty Start Date End Date Beverly Veronica MD [address] [place] [phone] PCP - General Family Practice 05/29/25
--- OUTSIDE RECORDS SUMMARY | 2025-06-10 16:36 | XMS_ITS | Encounter Summary ---
Author Organization [facility] Address [address] [address] Phone Care Team Providers Care Card Grinder Name Role Phone Unavailable Primary Care Provider Unavailabl e Encounter Details Date Type Department Care Team (Late st Contact Info) Description 04/01/2023 Telephone [facility] [address] [address] Shawn Betancourt MD [address] [place] [address] Social History Tobacco Use Types Packs/Day Years [...]
--- OUTSIDE RECORDS SUMMARY | 2025-06-10 16:36 | XMS_ITS | Clinical Summary ---
Author Organization [facility], [facility] Address [address] [place] [address] Phone Care Team Providers Care Funeral Car Chauffeur Name Role Phone Unavailable Primary Care Provider Unavailabl e Encounters Date Type Department Care Team Description 06/05/2025 Orders Only [facility], [facility] [address] [place] [address] Shahriar Byers MD 05/30/2025 Orders Only [facility], [facility] [address] [place] [address] Shahriar Byers MD 05/26/2025 Treatment [facility], [facility] [address] [place] [address] Saskia Navas NP End stage renal disease; Dependence on renal dialysis 05/25/[address] [place] [address] [facility], [facility] [address] [place] [address] Saskia Navas NP End stage renal disease; Dependence on renal dialysis 05/23/2025 Orders [facility], [facility] [address] [place] [address] Shahriar Byers MD 05/15/2025 Orders Only [facility] [address] [place] [address] Shahriar Byers MD 05/10/2025 Orders Only [facility], [facility] [address] [place] [address] Shahriar Byers MD 05/10/[address] [place] [address] Nephrology [facility], [facility] [address] [place] [address] Shahriar Byers MD End stage renal disease; Dependence on renal dialysis 05/05/2025 [facility], [facility] [address] [place] [address] Saskia Navas, TINO End stage renal disease; Dependence on renal dialysis 05/03/2025 Refill [facility], [facility] [address] [place] [address] Jasmin Carson MA 05/01/2025 Orders Only [facility], [facility] [address] [place] [address] Shahriar Byers MD 04/28/[address] [place], [place] [address]rology [facility], [facility] [address] [place] [address] Saskia Navas, CONCRETE POURER End stage renal disease; Dependence on renal dialysis 04/24/2025 Orders Only [facility], [facility] [address] [place] [address] Shahriar Byers MD 04/19/[address] [place], [place] [address]rology [facility], [facility] [address] [place] [address] Saskia Navas, CONCRETE POURER End stage renal disease; Dependence on renal dialysis 04/18/2025 Orders Only [facility], [facility] [address] [place] [address] Shahriar Byers MD 03/29/2025 Treatment [facility] Ne[facility], [facility] [address] [place] [address] Saskia Navas, TINO End stage renal disease; Dependence on renal dialysis 03/27/2025 Orders Only [facility], [facility] [address] [place] [address] Shahriar Byers MD 03/22/2025 Treatment [facility] Ne[facility], [facility] [address] [place] [address] Saskia Navas NP End stage renal disease; Dependence on renal dialysis 03/20/2025 Orders Only [facility], [facility] [address] [place] [address] Shahriar Byers MD 03/15/2025 Treatment [facility], [facility] [address] [place] [address] Shahriar Byers MD End stage renal disease; Dependence on renal dialysis 03/13/2025 Orders Only [facility], [facility] [address] [place] [address] Shahriar Byers MD from Last [...] 06/06/2025 Unless otherwise specified, test(s) performed at: [facility], [address] [place] [address] DIRECTOR PRIVATE MUSIC [employer]ER[employer] AGENCY: Ryan Singer M.D. For any questions, please call customer service at FREQUENCY:OTHER Resulting Agency Comment Specimen source: Blood Shahriar Byers MD LAB BLOOD ORDERABLES Final Result Performing Organization Address City/[facility]/ZIP Co de Phone Number [facility] See order comments or contact performing lab Unknown, [place] * (ABNORMAL) HD KINETICS (05/30/2025) Only the most recent of3 resultswithin the time period is included. % Urea Reduction 84(H) 65 - 80 % [facility] 05/30/2025 05/31/2025 10: 48 AM CDT Narrative Resulting Agency Comment Specimen source: Plasma Shahriar Byers MD LAB BLOOD ORDERABLES Final Result Performing Organization Address City/[facility]/ZIP Co de Phone Number [facility] See order comments or contact performing lab Unknown, [place] * SPECIAL CHEMISTRY (05/30/2025) Vitamin D, 25-OH, Total 45.2 30.0 - 100.0 ng/mL [facility] Comment: Please Note: Effective August 17, 2023, the methodology for this test has changed to the [facility]. 05/30/2025 05/31/2025 10: 40 AM CDT Narrative Resulting Agency Comment Specimen source: Serum Shahriar Byers MD LAB BLOOD BANK TEST O RDERABLES Final Result [facility] See order comments or contact performing lab Unknown, [place] * POST CHEMISTRY (05/30/2025) Only the most recent of3 resultswithin the time period is included. BUN Post Dialysis 11 6 - 19 mg/dL [facility] 05/30/2025 05/31/2025 10: 48 AM CDT Narrative [facility] - 05/31/2025 Unless otherwise specified, test(s) performed at: [facility], [address] [place] [address] DIRECTOR [employer]ER[employer] AGENCY: Ryan Singer M.D. For any questions, please call customer service at FREQUENCY:MONTHLY Resulting Agency Comment Specimen source: Plasma Shahriar Byers MD LAB BLOOD ORDERABLES Final Result Performing Organization Address [facility] Co de Phone Number [facility] See order comments or contact performing lab [...] 05/31/2025 Unless otherwise specified, test(s) performed at: [facility], [address] [place] [address] DIRECTOR [employer] MUS[employer]ERAPY AGENCY: Ryan Singer M.D. For any questions, please call customer service at FREQUENCY:MONTHLY Resulting Agency Comment Specimen source: Serum Shahriar Byers MD LAB BLOOD ORDERABLES Final Result [facility] See order comments or contact performing lab Unknown, [place] * [facility] Lab Results (05/30/2025) Only the most recent of2 resultswithin the time period is included. spKt/V Gotch 2.27 [facility] ge Center PCR 52.97 [facility] eKdrt/V 1.94 [facility] WSTDKT/V 2.8 [facility] spKt/V (Daugirdas II) 2.35 [facility] eKt/V Gotch 1.94 [facility] e Center nPCR_HD 1.20 [facility] eNPCR 1.06 [facility] eKt/V ([place]) 2.03 [facility] 05/30/2025 05/30/2025 us Eduardo Ordering Provider LAB BLOOD ORDERABLES Final Result [facility] Contact Performing lab Unknown, [place] from Last 3 Months Insurance Medicaid [place] (SKMO0) UHC Medicare
--- OUTSIDE RECORDS SUMMARY | 2025-06-10 16:36 | XMS_ITS | Encounter Summary ---
Author Organization [facility] [facility], [facility] Address [address] [facility] [address] [place] [address] Phone Care Team Providers Care Shoe Repairman Name Role Phone Unavailable Primary Care Provider Unavailabl e Encounter Details Date Type Department Care Team (Late st Contact Info) Description 08/27/2022 [facility] [address] [facility] [address] [place] [address] Kidney transplant status Social History [...]
[2025-06-10 16:55] VITALS: BP 163/106; PULSE 71; RESP 16; TEMP 36.4; O2SAT 98; BMI 18.8
--- NOTE | 2025-06-10 17:15 | ECG_ITS ---
[facility] 2025[facility]10 Pat Name: Vance Sainz Department: Room: Gender: Male Broadcast Program Director: : 2000 Requested By: Reilly Dinero Order Number: [id number] Raman MD: Nuha Garcia M.D. Measurements Intervals [place] Rate: 61 P: 78 CT: 151 QRS: 73 QRSD: 98 T: 74 QT: 483 QTc: 488 Interpretive Statements SINUS RHYTHM PROLONGED QT INTERVAL Compared to ECG 06/04/2025 18:58:04 Prolonged QT interval now present Electronically Signed On 06-11-2025 19:07:59 CDT by Nuha Garcia M.D. [email or web address]
[2025-06-10 17:24] VITALS: BP 136/91; PULSE 74; O2SAT 98
[2025-06-10] MEDS: HYDROcodone-acetaminophen 7.5-325 mg Tablet 1 TAB PO (17:24)
--- NOTE | 2025-06-10 17:30 | ED_ITS ---
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 This patient was admitted to the hospital on Thursday where he received dialysis in the hospital, subsequently was discharged home. States that he has been missing his dialysis sessions this week, stating that he was told that they were not necessary but also stating he has had issues getting there. He notes that he has been making urine with increasing frequency recently. With his current headache, states that he tried ibuprofen and Advil at home without relief, stating that he was previously told he cannot take NSAIDs because his kidneys are anyways. He states that he smokes marijuana at home for management of his pain. He denies fever, chills, vision changes, focal weakness, numbness, chest pain, or shortness of breath. He is scheduled to follow-up with his special needs nanny on Thursday to discuss long-term management options. He took Compazine and Benadryl prior to coming in. MD elicited complaint: headache Pertinent past history: migraines and other (Chronic kidney disease stage V on dialysis) Onset (ago): day(s) Onset description: gradually Location: diffuse and down into neck Severity: severe Pain scale (0-10): 9 Exacerbating factors: movement of head/neck Associated symptoms: Deny chest pain, confusion, fever(s), lightheadedness, nausea, rash or vomiting Related Data Home Medications ?Medication ?Instructions ?Recorded ?Confirmed labetalol 100 mg tablet 200 mg PO BID 09/11/2404/12 vit B,C-folic ac 800 mcg-zinc 12.5 1 tab PO DAILY 08/2004/12/25 mg-selen-D3 2,000 unit-vit E tablet (RenaPlex-D) levetiracetam 500 mg tablet See Rx Instructions .Route .COMPLEX 02/12/25 04/12/25 sevelamer carbonate 800 mg tablet 800 - 1,600 mg PO TI D 02/12/25 04/12/25 trazodone 50 mg tablet 50 mg PO BEDTIME 02/12/25 hydralazine 100 mg tablet 100 mg PO TID 04/05/2504/12 methocarbamol 500 mg tablet 500 - 1,000 mg PO Q6H PRN Muscle 04/05/25 04/12/25 Spasm sumatriptan 20 mg/actuation nasal 20 mg intranasal Q12 H PRN Migraine 04/05/25 04/12/25 spray Headache Previous Rx's ?Medication ?Instructions ?Recorded B-complex with vitamin C 1 tab PO DAILY 30 days #30 t abs 08/04/24 divalproex 500 mg tablet,delayed 500 mg PO BID 30 days #60 tabs 08/04/24 release clonazepam 1 mg tablet (Klonopin) 1 mg PO BID PRN anxi ety #10 tabs 01/09/25 prednisone 5 mg tablet 5 mg PO DAILY #60 tabs 02/14 Allergies Allergy/AdvReac Type Severity Reaction Status Date / Time NSAIDS (Non-Steroidal Allergy Severe unable to Verified 04/04/25 19:07 Anti-Inflamma take due to kidney disease sertraline (From Zoloft) Allergy Unknown Verified 04/04/25 19:07 Review of Systems 2 General: Reports: 10 or more systems reviewed and unremarkable except in HPI and below Const: Denies: fever(s), chills or fatigue Eyes: Denies: change in vision ENMT: Denies: throat pain, ear or mastoid pain or nasal discharge Card: Denies: chest pain, palpitations, swelling of feet/ankles or lightheadedness Resp: Denies: dyspnea, productive cough or wheezing GI: Denies: abdominal pain, nausea, vomiting, diarrhea or constipation : Denies: flank pain, difficulty urinating, dysuria or urinary frequency Musc: Reports: neck pain; Denies: back pain or joint pain Skin/Breast: Denies: rash Neuro: Reports: headache(s) and dizziness; Denies: numbness in extremities, weakness in extremities, sensory changes, lack of coordination, confusion, Slurred speech present or seizure-like activity PFSH ED 2 PFSH: Medical History Noncompliance with renal dialysis Adrenal insufficiency Hypoglycemia CKD (chronic kidney disease) stage V requiring chronic dialysis Generalized anxiety disorder Other stimulant dependence, in remission Problems related to lack of adequate sleep Substance abuse Depression Anxiety Social History Smoking and tobacco/nicotine status: unknown if used tobacco/nicotine Quit status (tobacco/nicotine): has tried quititng Number of times tried to quit tobacco: 4 Second hand smoke exposure: No Alcohol intake: never Substance/Drug Use: current Substance/Drug use frequency: Special occassions/opportunity only Additional social history: Patient uses marijuana 1 g every other day he has remote history of some meth use. He reports chewing tobacco and using nicotine pouches but denies smoking cigarettes. He denies suicidal ideation. Patient is companied by his girlfriend and his CODE STATUS is always been full code I confirmed with the patient on 06/05/2025 that he wants full CODE STATUS by Daron Ayala MD Physical Exam 2 Const: COMMON NORMALS: no acute distress, patient oriented x3 and no limitations GENERAL APPEARANCE: cooperative, well developed and disheveled ORIENTATION/CONSCIOUSNESS: Yes awake, Yes oriented to person, Yes oriented to place and Yes oriented to time HENMT: COMMON NORMALS: normocephalic, atraumatic and hearing grossly normal bilaterally HEAD & SCALP: normocephalic and atraumatic Eye: COMMON NORMALS: Equal, round and reactive pupils present, EOMs intact bilaterally and conjunctivae normal CONJUNCTIVA: Yes conjunctivae normal P UPIL: Yes Equal, round and reactive pupils present Neck/C-Spine: COMMON NORMALS: full ROM, supple and no JVD Resp: COMMON NORMALS: normal respiratory effort, No retractions, No use of accessory muscles and clear to auscultation bilaterally AUSCULTATION: clear to auscultation bilaterally Cardio: COMMON NORMALS: no JVD, regular rate, regular rhythm, No clicks present (Cardio), No murmurs present (Cardio) and No rub (Cardio) RATE: r egular rate RHYTHM: regular rhythm GI: COMMON NORMALS: Normal to inspection, nondistended, normoactive bowel sounds present, Soft to palpation and non-tender AUSCULTATION: Yes normoactive bowel sounds PALPATION: Yes Soft to palpation RECTAL EXAM: Yes deferred Extremity: COMMON NORMALS: normal to inspection, full ROM and capillary refill normal Neuro: COMMON NORMALS: patient oriented x3, CN's II-XII intact bilaterally, moves all extremities, no focal motor deficits and no sensory deficits noted SENSORIUM/ORIENTATION: Yes oriented to person, Yes oriented to place and Yes oriented to time Skin: COMMON NORMALS: no rashes or lesions noted GENERAL SKIN EXAM: no rashes or lesions noted Course 2 Vital Signs: Vital signs: Vital Signs Temperature 97.6 F 06/10/25 16:55 Pulse Rate 62 06/10/25 19:21 Respiratory Rate 16 06/10/25 16:55 Blood Pressure 144/100 06/10/25 19:21 Pulse Oximetry 97 06/10/25 19:21 Oxygen Delivery Me thod Room Air 06/10/25 19:00 MDM - Headache Medical Decision Making This is a 24-year-old male with end-stage renal disease on hemodialysis and history of migraines, presenting with headache, neck pain, dizziness after missing dialysis sessions this week. He is neurologically intact and hemodynamically stable. Lab evaluation shows severe renal impairment with creatinine of 20.7, GFR of 2.8, BUN 84, mildly elevated phosphorus 9.3, and magnesium 3.9. His potassium however is normal. His QTc is 46, EKG is not showing any acute rhythm changes. His headache appears consistent with a migraine or other benign headache, possibly exacerbated by missed dialysis and recent cannabis use for pain. Given his normal potassium, stable neuroexam, and absence of emergent uremic or volume overload symptoms, he does not require urgent inpatient dialysis. Discussed with him importance to keep scheduled for dialysis and attend his appointments, he endorsed understanding with this. Informed him to return with any acute new or worsening. Lab Data 06/10/25 17:37 06/10/25 17:37 Laboratory Results WBC 4.73 10^3/uL (3.29-11.43) 06/10/25 17:37 RBC 3.07 10^6/uL (3.85-5.65) L 06/10/25 17:37 Hgb 9.80 g/dL (11.27-16.99) L 06/10/25 17:37 Hct 31.2 % (37-53) L 06/10/25 17:37 MCV 101.6 fl (82-101) H 06/10/25 17:37 MCH 31.9 pg (27-33) 06/10/25 17:37 MCHC 31.4 g/dL (30-55) 06/10/25 17:37 RDW 16.7 % (12.1-15.1) H 06/10/25 17:37 Plt Count 115 10^3/cmm (157-399) L 06/10/25 17:37 MPV 11.3 fL (7.4-10.4) H 06/10/25 17:37 Neut % (Auto) 66.7 % 06/10/25 17:37 Lymph % (Auto) 15.6 % 06/10/25 17:37 [place] % (Auto) 13.7 % 06/10/25 17:37 Eos % (Auto) 2.7 % 06/10/25 17:37 Baso % (Auto) 1.1 % 06/10/25 17:37 Neut # (Auto) 3.15 10^3/uL (1.8-7.7) 06/10/25 17:37 Lymph # (Auto) 0.7 10^3/uL (0.8-4.8) L 06/10/25 17:37 [place] # (Auto) 0.7 10^3/uL (0.2-0.9) 06/10/25 17:37 Eos # (Auto) 0.1 10^3/uL (0.0-0.8) 06/10/25 17:37 Baso # (Auto) 0.1 10^3/uL (0.0-0.1) 06/10/25 17:37 Nucleated RBC % (auto) 0 % 06/10/25 17:37 Nucleated RBCs # 0.0 /100WBC 06/10/25 17:37 Sodium 139 mmol/L (136-145) 06/10/25 17:37 Potassium 5.1 mmol/L (3.5-5.1) 06/10/25 17:37 Chloride 94 mmol/L (98-107) L 06/10/25 17:37 Carbon Dioxide 16 mmol/L (22-29) L 06/10/25 17:37 Anion Gap 34.1 (5-19) H 06/10/25 17:37 BUN 84 mg/dL (6-20) H* 06/10/25 17:37 Creatinine 20.7 mg/dL (0.7-1.2) H* 06/10/25 17:37 GFR Calculation 2.8 mL/min (90-130) L 06/10/25 17:37 Glucose 86 mg/dL (65-115) 06/10/25 17:37 Calculated Osmolality 313 mOsm/kg (285-295) H 06/10/25 17:37 Calcium 8.8 mg/dL (8.5-10.5) 06/10/25 17:37 Phosphorus 9.3 mg/dL (2.5-4.5) H* 06/10/25 17:37 Magnesium 3.9 mg/dL (1.7-2.3) H 06/10/25 17:37 Total Bilirubin 0.2 mg/dL (0.15-1.2) 06/10/25 17:37 AST 13 U/L (0-40) 06/10/25 17:37 ALT 6 U/L (0-41) 06/10/25 17:37 Alkaline Phosphatase 83 U/L (40-130) 06/10/25 17:37 Total Protein 6.4 g/dL (6.6-8.7) L 06/10/25 17:37 Albumin 4.5 g/dL (3.5-5.2) 06/10/25 17:37 Globulin 1.9 g/dL (1.3-4.6) 06/10/25 17:37 No radiology studies performed this visit Discharge Plan Discharge Patient Disposition: Home Clinical Impression: ESRD on dialysis Headache Qualifiers: Headache type: unspecified Headache chronicity pattern: acute headache I ntractability: intractable Qualified Code(s): R51.9 - Headache, unspecified Condition: Stable Prescriptions: No Action B-complex with vitamin C Tablet 1 tab PO DAILY 30 Days Qty: 30 1RF divalproex 500 mg tablet,delayed release (DR/EC) 500 mg PO BID 30 Days Qty: 60 1RF trazodone 50 mg tablet 50 mg PO BEDTIME levetiracetam 500 mg tablet See Rx Instructions .ROUTE .COMPLEX Rx Instructions: Take 1 Tablet (500 mg) by mouth 2 times daily. If you have dialysis before 9 AM, please wait to take your morning dose of Keppra until after dialysis. sevelamer carbonate 800 mg tablet 800 - 1,600 mg PO TID prednisone 5 mg tablet 5 mg PO DAILY Qty: 60 2RF Rx Instructions: Take 10 mg for 4 weeks, then 5 mg daily sumatriptan 20 mg/actuation spray,non-aerosol 20 mg INTRANASAL Q12H PRN (Reason: Migraine Headache) methocarbamol 500 mg tablet 500 - 1,000 mg PO Q6H PRN (Reason: Muscle Spasm) hydralazine 100 mg tablet 100 mg PO TID labetalol 100 mg tablet 200 mg PO BID RenaPlex-D 800 mcg-12.5 mg -2,000 unit tablet 1 tab PO DAILY clonazepam [Klonopin] 1 mg tablet 1 mg PO BID PRN (Reason: anxiety) Qty: 10 0RF Discharge Orders: Discharge ED (Routine); Ordered 06/10/25 Ordered By: Reilly Mcmullen Referrals: Beverly Veronica MD [Primary Care Provider, [facility]] Patient Instructions: Patient Portal & Adria Instructions Activity Restrictions/Additional Instructions: CKD Headache Discharge Discharge Instructions: Stage V CKD on Dialysis, Headache Diagnosis/ED Course: 24-year-old male with stage V CKD on hemodialysis, missed recent sessions, presented with headache. Labs notable for potassium 5.1 mmol/L, BUN 84 mg/dL (down from 93), creatinine 20.7 mg/dL (up from 18.7), phosphorus 9.3 mg/dL (up from 8.7), magnesium 3.9 mg/dL (up from 3.6). No urgent indication for dialysis. Migraine treated with dexamethasone, diphenhydramine, and hydrocodone- acetaminophen. Discharged with a limited supply of hydrocodone-acetaminophen. --- 1. Dialysis Adherence and Follow-Up - Strongly encourage resumption of scheduled dialysis sessions. Missed dialysis increases risk for life-threatening electrolyte disturbances, volume overload, and uremic symptoms. - Monitor for symptoms of uremia (nausea, vomiting, confusion, pericarditis, pleuritis), volume overload (dyspnea, edema), and severe electrolyte abnormalities (muscle weakness, arrhythmia). - If unable to attend dialysis, contact nephrology immediately for alternative arrangements. 2. Medication Safety - Hydrocodone-acetaminophen: Use the lowest effective dose for the shortest duration. Opioids are associated with increased risk of altered mental status, falls, fractures, hospitalization, and mortality in dialysis patients, even at low doses. Monitor for sedation, confusion, constipation, and respiratory depression. - Avoid exceeding 3 g acetaminophen per day to minimize hepatotoxicity. - Avoid NSAIDs due to nephrotoxicity and increased risk of adverse renal and cardiovascular events. - Migraine management: Non-pharmacologic strategies (hydration, sleep hygiene, avoidance of triggers) are preferred. Triptans may be considered with dose adjustment; lasmiditan is safe in ESKD. NSAIDs should be avoided. - Review all OTC and herbal medications: Many are nephrotoxic or interact with prescribed drugs. Consult nephrology or pharmacy before starting new agents. 3. Dietary Recommendations - Potassium: Restrict dietary potassium to <3 g/day if predialysis potassium >6 mmol/L. Current potassium is 5.1 mmol/L; reinforce dietary potassium restriction. - Phosphorus: Restrict dietary phosphorus and use phosphate binders as prescribed. Hyperphosphatemia increases risk for vascular calcification and bone disease. - Magnesium: Monitor levels; current magnesium is elevated. Avoid magnesium- containing antacids and supplements. - Salt and Fluid: Restrict sodium intake to <2.3 g/day and fluid to 1?1.5 L/day, individualized to interdialytic weight gain and residual urine output. - Protein: Maintain recommended intake of 1.0?1.2 g/kg/day. 4. Warning Signs and When to Seek Care - Seek immediate care for chest pain, shortness of breath, confusion, severe weakness, palpitations, persistent vomiting, or inability to urinate. - Report new or worsening headache, especially if associated with visual changes, focal neurologic deficits, or altered mental status. 5. Follow-Up - Schedule prompt nephrology follow-up to reassess dialysis adequacy, laboratory trends, and medication safety. - Consider headache specialist referral if recurrent or refractory headaches. 6. Vaccinations - Ensure up-to-date hepatitis B, pneumococcal, and COVID-19 vaccinations. 7. Additional Notes - Opioid-induced constipation is common; consider bowel regimen if needed. - Avoid caffeine excess, as it may exacerbate dialysis headache. Patient Education Provided. All instructions reviewed. --- Print Language: Uzbek Coding Level of Care Code ED Supervisor Firearms for Loida Menon
[2025-06-10 17:33] VITALS: O2SAT 100
[2025-06-10 17:42] LABS: Hematocrit 31.2 % (37-53); Hemoglobin 9.80 g/dL (11.27-16.99); Mean Corpuscular HGB Conc 31.4 g/dL (30-55); Mean Corpuscular Hemoglobin 31.9 pg (27-33); Mean Corpuscular Volume 101.6 fl (82-101); Nucleated Red Blood Cells % 0 %; Platelet Count 115 10^3/cmm (157-399); Red Blood Count 3.07 10^6/uL (3.85-5.65); White Blood Count 4.73 10^3/uL (3.29-11.43)
[2025-06-10] MEDS: diphenhydrAMINE 50 mg/mL SDV 1mL 25 MG IVP (17:49)
[2025-06-10 17:59] LABS: Alanine Aminotransferase 6 U/L (0-41); Albumin Level 4.5 g/dL (3.5-5.2); Alkaline Phosphatase 83 U/L (40-130); Aspartate Amino Transferase 13 U/L (0-40); Calcium 8.8 mg/dL (8.5-10.5); Carbon Dioxide 16 mmol/L (22-29); Chloride 94 mmol/L (98-107); Globulin 1.9 g/dL (1.3-4.6); Glucose 86 mg/dL (65-115); Magnesium 3.9 mg/dL (1.7-2.3); Osmolality Calculated 313 mOsm/kg (285-295); Sodium 139 mmol/L (136-145); Total Protein 6.4 g/dL (6.6-8.7)
[2025-06-10 18:00] LABS: Anion Gap 34.1 (5-19); Potassium 5.1 mmol/L (3.5-5.1)
[2025-06-10 18:01] VITALS: PULSE 66; O2SAT 98
[2025-06-10 18:03] LABS: Blood Urea Nitrogen 84 mg/dL (6-20)
[2025-06-10 18:04] LABS: Creatinine Clr Calc Pharmacy 3.8545
--- NOTE | 2025-06-10 18:15 | PC.NURSE ---
pt requesting something to eat, CHARITY Mcmullen notified and okay. PT given pudding and crackers.
[2025-06-10 19:00] VITALS: BP 144/100; PULSE 63; O2SAT 97
[2025-06-10] MEDS: HYDROcodone-acetaminophen 7.5-325 mg Tablet 2 TAB PO (19:16)
[2025-06-10 19:21] VITALS: BP 144/100; PULSE 62; O2SAT 97
== END 2025-06-10 19:25 | disposition home or self-care (01) ==
PROVIDERS: Emergency Provider Physician Assistant; PCP Family Medicine
DX: N18.6 End stage renal disease (principal); Z99.2 Dependence on renal dialysis; R51.9 Headache, unspecified
CPT/HCPCS: 36415; 80053; 83735; 84100; 85025; 93005; 96374; 96375; 99284; J1100; J1200; J9999

== ENCOUNTER 2025-06-27 20:15 | Observation (INO) | payer OTHER, MEDICAID, SELFPAY ==
--- NOTE | 2025-06-27 20:17 | XRR_ITS ---
PROCEDURE INFORMATION: Exam: XR Chest Exam date and time: 06/27/2025 8:24 PM Age: 24 years old Clinical indication: Shortness of breath; Additional info: SOB TECHNIQUE: Imaging protocol: Radiologic exam of the chest. Views: 1 view. COMPARISON: CR (CHEST, ) 06/03/2025 6:56 PM FINDINGS: Lungs: New hazy opacity in the left lateral lower lung. Pleural spaces: Unremarkable. No pleural effusion. No pneumothorax. Heart/Mediastinum: Unremarkable. No cardiomegaly. Bones/joints: Unremarkable. XR/XR chest 1V portable [id number] IMPRESSION: New hazy opacity in the left lateral lower lung, concerning for pneumonia.
--- OUTSIDE RECORDS SUMMARY | 2025-06-27 20:22 | XMS_ITS | Encounter Summary ---
Author Organization [facility] [place] [facility], [facility] Address [address] [place] [address] Phone Care Team Providers Care Pvc Loader Name Role Phone Unavailable Primary Care Provider Unavailabl e Encounter Details Date Type Department Care Team (Late st Contact Info) Description 02/15/2025 TCM in Dialysis Clinic [facility] [address] [place] [address] Saskia Peterson [employer] DIRECTOR [address] [facility] [address] [place] [address] Social History Tobacco Use Types [...] 02/15/2025 The patient was seen for a [id number] visit as part of Transitional Care Management services. 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 COMMENTS: See jennifer 1.0. Also hospitalized at [facility] this week for vol overload and hyperkalemia [...] Reviewed and updated list in p-hub. Current [facility] Outpatient Medications amlodipine 10 mg [...] by mouth every night at bedtime. Current [facility] Allergies Allergen: No Known Allergies [...] 99.1*F Current Dialysis Vitals BP Sit: 145/84 AP/SKI PRODUCTION SUPERVISOR: -- Pulse: 88 CARE COORDINATION Post-discharge [...] Discussed with staff. VISIT DIAGNOSES CPT Code 83148 - High complexity, seen within 7 days [...]
--- OUTSIDE RECORDS SUMMARY | 2025-06-27 20:22 | XMS_ITS | Clinical Summary ---
Author Organization [facility] Address [address] [place] [address] Phone Care Team Providers Care Substitute Crossing Guard Name Role Phone Beverly Veronica MD Primary Care Provider [phone]- [phone] Allergies Active Allergy Reactions Criticality Noted Date [...] daily. 30 Tablet 2 5 Active vit B,B-EU-fkwf-se mishel-vit D3-E (RenaPlex-D) 800 mcg-12.5 mg -2,000 [...] Encounters Date Type Department Care Team Description 06/20/2025 External Device Data STL ABSTRACTION Provider, Abstract 06/20/2025 Results Follow-Up [facility] Pain Management [address] [place] [address] Garry Randolph MD MRI CERVICAL WO CONTRAST 06/15/2025 11:29 AM CDT - 06/15/2025 11:59 PM CDT Hospital Encounter [facility] [address] [place] [address] Garry Randolph MD Discharge Disposition: Home or Self Care 05/30/2025 External Device Data STL ABSTRACTION Provider, Abstract 05/29/2025 2:40 PM CDT Office Visit [facility] Family Medicine [address] [address] Beverly Veronica MD Abrasion, foot without infection (Primary Dx); Seizure disorder ([facility]); Severe major depressive disorder ([facility]); ESRD (end stage renal disease) ([facility]) 05/24/2025 External Device Data STL ABSTRACTION Provider, Abstract 05/16/2025 3:00 PM CDT Office Visit [facility] Pain Management [address] [place] [address] Garry Randolph MD Chronic neck pain (Primary Dx); Myofascial pain; DDD (degenerative disc disease), cervical; Cervical spondylosis without myelopathy; Cervical stenosis of spinal canal 05/16/2025 External Device Data STL ABSTRACTION Provider, Abstract 05/03/2025 External Device Data STL ABSTRACTION Provider, Abstract 04/27/2025 1:26 AM CDT - 04/27/2025 3:02 AM CDT Emergency [facility] Emergency Department [address] [place] [address] Demario Felipe MD Neck pain (Primary Dx); ESRD on hemodialysis ([facility]); Poorly-controlled hypertension Discharge Disposition: Home or Self Care 04/27/2025 Travel 04/26/2025 12:15 AM CDT - 04/26/2025 11:59 PM CDT Hospital Encounter [facility] Emergency Medical Services [facility] [address] [place] [address] Ambulance, [facility] Discharge Disposition: [facility] 04/25/2025 2:50 PM CDT Ancillary Procedure [facility] Orthopedics [facility] [address] [place] [address] Shahriar Mckeon PA Closed dislocation of left elbow, initial encounter 04/25/2025 2:25 PM CDT Ancillary Procedure [facility] [address] [place] [address] Shahriar Mckeon PA Left hand pain; Right hand pain 04/25/2025 2:20 PM CDT Office [facility] [id number] [place] [address] Shahriar Mckeon PA Closed nondisplaced fracture of [...] PNEUM OCOCCAL CONJUGATE VACCINE 20-VALENT (PCV20), POLYSACCHARIDE [id number] CONJUGATE, ADJUVANT 0.5 ML (PF) IM 12/14/2024 [...] on file 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 Gender Identity Not on file Sexual Orientation [...] Care Team (Late st Contact Info) Description 12/05/2025 2:40 PM SLOT ATTENDANT Office Visit [facility] [address] [phone] Beverly Veronica MD [address] [address] Health Maintenance Due Date Last [...] Procedure Name Priority Date/Time Associated Diagnosis Comments MRI CERVICAL WO CONTRAST Routine 06/15/2025 12:52 PM CDT Chronic neck pain Myofascial pain DDD (degenerative disc disease), cervical Cervical spondylosis without myelopathy Cervical stenosis of spinal canal CT CERVICAL SPINE WO CONTRAST Stat 04/26/2025 [...] pain from Last 3 Months Results * MRI CERVICAL WO CONTRAST (06/15/2025 12:52 PM CDT) Anatomical Region Laterality Modality Spine Magnetic Resonan ce 06/15/2025 12:5 2 PM CDT Impressions 06/16/2025 8:42 AM CDT IMPRESSION: Very mild degenerative changes. No significant canal or foraminal narrowing identified by MRI. Narrative 06/16/2025 8:42 AM CDT EXAM: MRI CERVICAL WO CONTRAST DATE/TIME OF EXAM: 06/15/2025 12:52 PM REASON FOR STUDY: Spinal stenosis, cervical DIAGNOSIS: Chronic neck pain; Chronic neck pain; Myofascial pain; DDD (degenerative disc disease), cervical; Cervical spondylosis without myelopathy; Cervical stenosis of spinal canal COMPARISON: April 26, 2025 TECHNIQUE: MRI cervical spine without contrast. FINDINGS: Bones: No evidence of an acute fracture. Probable hemangioma C6 vertebral body and C4 vertebral body Alignment: Straightened cervical sagittal alignment. Cervical Cord: No cord signal abnormality. Soft Tissue: No acute abnormality. Craniocervical junction: Within normal limits. Cervical Vertebral Artery Flow Voids: Maintained major vertebral artery T2 flow voids. C2-C3: No significant intervertebral disc space narrowing. No significant canal or foraminal stenosis. C3-C4: No significant intervertebral disc space narrowing. Uncinate and facet arthropathy. Mild right foraminal stenosis. C4-C5: No significant intervertebral disc space narrowing. No significant canal or foraminal stenosis. C5-C6: No significant intervertebral disc space narrowing. Uncinate and facet arthropathy. Mild right foraminal stenosis. C6-C7: No significant intervertebral disc space narrowing. No significant canal or foraminal stenosis. C7-T1: No significant intervertebral disc space narrowing. No significant canal or foraminal stenosis. Procedure Note Romy Gerardo MD - 06/16/2025 EXAM: MRI CERVICAL WO CONTRAST DATE/TIME OF EXAM: 06/15/2025 12:52 PM REASON FOR STUDY: Spinal stenosis, cervical DIAGNOSIS: Chronic neck pain; Chronic neck pain; Myofascial pain; DDD (degenerative disc disease), cervical; Cervical spondylosis without myelopathy; Cervical stenosis of spinal canal COMPARISON: April 26, 2025 TECHNIQUE: MRI cervical spine without contrast. FINDINGS: Bones: No evidence of an acute fracture. Probable hemangioma C6 vertebral body and C4 vertebral body Alignment: Straightened cervical sagittal alignment. Cervical Cord: No cord signal abnormality. Soft Tissue: No acute abnormality. Craniocervical junction: Within normal limits. Cervical Vertebral Artery Flow Voids: Maintained major vertebral artery T2 flow voids. C2-C3: No significant intervertebral disc space narrowing. No significant canal or foraminal stenosis. C3-C4: No significant intervertebral disc space narrowing. Uncinate and facet arthropathy. Mild right foraminal stenosis. C4-C5: No significant intervertebral disc space narrowing. No significant canal or foraminal stenosis. C5-C6: No significant intervertebral disc space narrowing. Uncinate and facet arthropathy. Mild right foraminal stenosis. C6-C7: No significant intervertebral disc space narrowing. No significant canal or foraminal stenosis. C7-T1: No significant intervertebral disc space narrowing. No significant canal or foraminal stenosis. IMPRESSION: Very mild degenerative changes. No significant canal or foraminal narrowing identified by MRI. us Garry Randolph MD MR ORDERABLES Final Resu lt * CT CERVICAL SPINE WO CONTRAST (04/26/2025 [...] No acute cervical spine abnormalities. Constance Lim [facility] CT ORDERABLES Final R esult * [...] IMPRESSION: No acute intracranial abnormality. [facility]stance [facility] LECT[facility]ER CT ORDERABLES Final R esult * (ABNORMAL) CBC WITH DIFFERENTIAL (04/26/2025 9:24 PM CDT) WBC 11.0 4.5 - 11.0 K/uL 04/26/2025 9:54 PM CDT [facility] RBC 3.38(L) 4.60 - 6.20 M/uL 04/26/2025 9:54 PM CDT [facility] HEMOGLOBIN 10.3(L) 14.0 - 18.0 g/dL 04/26/2025 9:54 PM [facility] HEM[facility] 33.3(L) 41.0 - 53.0 % 04/26/2025 9:54 PM CDT [facility] MCV 98.5 84.0 - 103.0 fL 04/26/2025 9:54 PM CDT [facility] MCH 30.5 27.0 - 34.0 pg 04/26/2025 9:54 PM [facility] MCHC 30.9 30.0 - 35.0 g/dL 04/26/2025 9:54 PM [facility] PLATELETS 213 140 - 440 K/uL 04/26/2025 9:54 PM [facility] MPV 10.9 8.9 - 12.8 fL 04/26/2025 9:54 PM [facility] RDW 17.2(H) 11.0 - 14.5 % 04/26/2025 9:54 PM [facility] RDW-STDEV 60.4(H) 37.0 - 54.0 fL 04/26/2025 9:54 PM [facility] NEUTROPHILS 92(H) 42 - 75 % 04/26/2025 9:54 PM [facility] LYMPHOCYTES 4(L) 24 - 44 % 04/26/2025 9:54 PM CDT [facility] MONOCYTES 2 2 - 10 % 04/26/2025 9:54 PM CDT [facility] EOSINOPHILS 1 0 - 7 % 04/26/2025 9:54 PM CDT [facility] BASOPHILS 1 0 - 1 % 04/26/2025 9:54 PM CDT [facility] IMMATURE GRANULOCYTES 1 0 - 2 % 04/26/2025 9:54 PM CDT [facility] NEUTROPHIL ABSOLUTE 10.16(H) 2.00 - 8.00 K/uL 04/26/2025 9:54 PM CDT [facility] LYMPHOCYTE ABSOLUTE 0.47(L) 1.20 - 4.00 K/uL 04/26/2025 9:54 PM CDT [facility] MONOCYTE ABSOLUTE 0.22 0.10 - 0.60 K/uL 04/26/2025 9:54 PM CDT [facility] EOSINOPHIL ABSOLUTE 0.06 0.00 - 0.70 K/uL 04/26/2025 9:54 PM CDT [facility] BASOPHILS ABSOLUTE 0.05 0.00 - 0.20 K/uL 04/26/2025 9:54 PM CDT [facility] IMMATURE GRANULOCYTES ABSOLUTE 0.07 0.00 - 0.10 K/uL 04/26/2025 9:54 PM CDT [facility] SMEAR REVIEWED: NN - No Action Needed 04/26/2025 9:54 PM CDT [facility] Blood Venipuncture / Unknown 04/26/2025 9:24 PM CDT 04/26/2025 9:39 PM CDT Constance Lim MANAGEMENT LECTURER HEMATOLOGY ORDERABLES F inal Result [facility] CLIA # [id number] [address] [address] [place] [address] * (ABNORMAL) COMPREHENSIVE METABOLIC PANEL (04/26/2025 9:24 PM [facility]) [facility] SODIUM 137 136 - 145 mmol/L 04/26/2025 10:15 PM [facility] POTASSIUM 5.8(H) 3.5 - 5.1 mmol/L 04/26/2025 10:15 PM [facility] CHLORIDE 95(L) 98 - 107 mmol/L 04/26/2025 10:15 PM [facility] CO2 27 22 - 29 mmol/L 04/26/2025 10:15 PM [facility] CALCIUM 9.4 8.6 - 10.0 mg/dL 04/26/2025 10:15 PM [facility] BUN 22(H) 6 - 20 mg/dL 04/26/2025 10:15 PM [facility] CREATININE 4.63(H) 0.67 - 1.17 mg/dL 04/26/2025 10:15 PM [facility] GLUCOSE 98 74 - 99 mg/dL 04/26/2025 10:15 PM [facility] TOTAL PROTEIN 7.4 6.4 - 8.3 g/dL 04/26/2025 10:15 PM [facility] ALBUMIN 5.0 3.5 - 5.2 g/dL 04/26/2025 10:15 PM [facility] BILIRUBIN TOTAL 0.2 0.0 - 1.0 mg/dL 04/26/2025 10:15 PM [facility] ALKALINE PHOSPHATASE 95 40 - 129 U/L 04/26/2025 10:15 PM [facility] AST 11 10 - 50 U/L 04/26/2025 10:15 PM [facility] ALT 7 <=50 U/L 04/26/2025 10:15 PM [facility] GFR 17(L) >=60 mL/min/1. 73 sq meter 04/26/2025 10:15 PM [facility] Comment:eGFR calculated with 2020 CKD-EPI equation. Vegetarian diet, extremely high or low muscle mass, and may affect results. Cystatin C with Glomerular Filtration Rate is a suitable alternative for these patients. ANION GAP 15 9 - 20 mmol/L 04/26/2025 10:[address] [facility] Blood Venipuncture / Unknown 04/26/2025 9:24 PM CDT 04/26/2025 9:39 PM [facility]T [facility] CHEMISTRY ORDERABLES Fi nal Result [facility] CLIA # [id number] [address] [place] [address] * INSERT PERIPHERAL IV (04/26/2025 9:20 PM CDT) Narrative Nahum Matos RN - 04/26/2025 9:20 PM CDT Nahum Matos RN 04/26/2025 9:39 PM VASCULAR ACCESS TEAM Peripheral IV insertion with lab collection PATIENT NAME: Vance Sainz DATE OF : 2000 CSN: [id number] DATE: 04/26/2025 Room: Room/bed info not found [...] Patient tolerated well. Nahum Matos RN Constance Lim MANAGEMENT LECTURER IV THERAPY ORDERABLES F inal Result * XR ELBOW 3+ VW LEFT (04/25/2025 2:57 PM CDT) Anatomical Region Laterality Modality Upper Extremity Computed Radiogr aphy Narrative 04/26/2025 8:52 AM CDT X-rays obtained of the left elbow on April 25, 2025 independently reviewed which does not demonstrate any acute osseous abnormalities, fractures, or dislocations noted. [facility] ORDERABLES Fi nal Result * [...] chronic and healed fifth metacarpal neck fracture. [facility] ORDERABLES Fi nal Result from Last 3 Months Insurance [place] RX [employer] RX Member Subscriber Plan / Payer (Ef fective 2025-Present) Name:Alistair, Vance Barrera Relation to Subscriber:Self Name:Vance Sainz Subscriber ID:Not on file Payer ID:Not on file Group ID:[id number] Type:RX Medicare Part D Address: [place] Advance Directives For more information, please contact: [phone] * Full Code (Latest Code Status on File) Date Activated Date Inactivated Comments 01/31/2025 2:27 PM 02/03/2025 8:44 PM Care Teams Substitute Crossing Guard Relationship Specialty Start Date End Date Beverly Veronica MD [address] [place] [phone] PCP - General Family Practice 05/29/25
--- OUTSIDE RECORDS SUMMARY | 2025-06-27 20:22 | XMS_ITS | Encounter Summary ---
Author Organization [facility], [facility] Address [address] [address] Phone Care Team Providers Care Cruise Guide Name Role Phone Unavailable Primary Care Provider Unavailabl e Reason for Visit * Reason Comments Med Refill Encounter Details Date Type Department Care Team (Late st Contact Info) Description 04/14/2024 Refill [facility] [address] [facility] [address] [place] [address] Shahriar Byers MD [address] [address] Social History Tobacco Use Types [...]
--- OUTSIDE RECORDS SUMMARY | 2025-06-27 20:22 | XMS_ITS | Encounter Summary ---
Author Organization [facility] Address [address] [address] Phone Care Team Providers Care Director Business Development Name Role Phone Unavailable Primary Care Provider Unavailabl e Encounter Details Date Type Department Care Team (Late st Contact Info) Description 04/01/2023 Telephone [facility] [address] [address] Shawn Betancourt MD [address] [place] [address] Social History Tobacco Use Types Packs/Day Years [...]
--- OUTSIDE RECORDS SUMMARY | 2025-06-27 20:22 | XMS_ITS | Encounter Summary ---
Author Organization [facility] Address 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 Gender Identity Not on file Sexual Orientation Not on file documented as of this encounter Miscellaneous Notes * Result Encounter Note - Garry Randolph MD - 06/20/2025 5:10 PM CDT Imaging reviewed Reversal of cervical lordosis Suspected C6 hemangioma in vertebral body Smaller C4 hemangioma No sit disc herniation No sig central canal stenosis Would probably hold off any injection therapies at this time May benefit from PT documented in this encounter Plan of Treatment Upcoming Encounters Date Type Department Care Team (Late st Contact Info) Description 12/05/2025 2:40 PM MARINE UNDERWRITER Office Visit [facility] [address] [phone] Beverly Veronica MD [address] [phone] documented as of this encounter Visit Diagnoses Not on filedocumented in this encounter Additional Health Concerns Assessment Noted Time PHQ-9 Depression Total Score: 3 05/29/20 25 3:06 PM CDT documented as of this encounter Care Teams Network Program Manager Relationship Specialty Start Date End Date Beevrly Veronica MD [address] [address] PCP - General Family Practice 05/29/25 documented as of this encounter
--- OUTSIDE RECORDS SUMMARY | 2025-06-27 20:22 | XMS_ITS | Encounter Summary ---
Author Organization [facility], [facility] Address [address] [facility] [address] [place] [address] Phone Care Team Providers Care Radiotelephone Operator Name Role Phone Unavailable Primary Care Provider Unavailabl e Encounter Details Date Type Department Care Team (Late st Contact Info) Description 08/27/2022 [facility] [address] [facility] [address] [place] [address] Kidney transplant status Social History [...]
--- OUTSIDE RECORDS SUMMARY | 2025-06-27 20:22 | XMS_ITS | Clinical Summary ---
Author Organization [facility], [facility] Address [address] [place] [address] Phone Care Team Providers Care Cigarette Packing Machine Operator Name Role Phone Unavailable Primary Care Provider Unavailabl e Encounters Date Type Department Care Team Description 06/20/2025 Orders Only [facility], [facility] [address] [place] [address] Shahriar Byers MD 06/14/[address] [facility], [facility] [address] [place] [address] Shahriar Byers MD End stage renal disease; Dependence on renal dialysis 06/12/2025 Orders Only [place] [address] [place] [address] Shahriar Byers MD 06/05/2025 Orders Only [facility], [facility] [address] [place] [address] Shahriar Byers MD 05/30/2025 Orders Only [facility], [facility] [address] [place] [address] Shahriar Byers MD 05/26/[address] [facility], [facility] [address] [place] [address] Saskia Navas NP End stage renal disease; Dependence on renal dialysis 05/25/[address] [facility], [facility] [address] [place] [address] Saskia Navas NP End stage renal disease; Dependence on renal dialysis 05/23/2025 Orders Only [facility], [facility] [address] [place] [address] Shahriar Byers MD 05/15/2025 [facility], [facility] [address] [place] [address] Shahriar Byers MD 05/10/2025 [facility] [address] [place] [address] Shahriar Byers MD 05/10/[address] [place] [address], [facility] [address] [place] [address] Shahriar Byers MD End stage renal disease; Dependence on renal dialysis 05/05/2025 [facility] [address] [place] [address] Saskia Navas, TINO End stage renal disease; Dependence on renal dialysis 05/03/2025 Refill [facility], [facility] [address] [place] [address] Jasmin Carson MA 05/01/2025 Orders Only [facility], [facility] [address] [place] [address] Shahriar Byers MD 04/28/2025 [facility], [facility] [address] [place] [address] Saskia Navas, TINO End stage renal disease; Dependence on renal dialysis 04/24/2025 Orders Only [facility], [facility] [address] [place] [address] Shahriar Byers MD 04/19/2025 [facility], [facility] [address] [place] [phone] Saskia Navas NP End stage renal disease; Dependence on renal dialysis 04/18/2025 Orders Only [facility] [address] [place] [address] Shahriar Byers MD 03/29/[address] [facility], [facility] [address] [place] [address] Saskia Navas NP End stage renal disease; Dependence on renal dialysis 03/27/2025 Orders Only [facility], [facility] [address] [place] [address] Shahriar Byers MD from Last [...] Priority Date/Time Associated Diagnosis Comments HEMATOLOGY Routine 06/20/2025 CHEMISTRY Routine 06/12/2025 HEMATOLOGY Routine 06/12/2025 HEMATOLOGY Routine 06/05/2025 [facility] RESULTS [...] POST CHEMISTRY Routine 03/27/2025 HEMATOLOGY Routine 03/27/2025 from Last 3 Months Results * (ABNORMAL) HEMATOLOGY (06/20/2025) Only the most recent of11 resultswithin the time period is included. Hemoglobin 8.4(L) 14.0 - 18.0 g/dL [facility] Hemoglobin x 3 25.2(L) 42.0 - 54.0 % [facility] 06/20/2025 06/21/2025 3:0 4 PM CDT Narrative [facility] - 06/21/2025 Unless otherwise specified, test(s) performed at: [facility], [address] [place], [place] [id number] JUNIOR LINUX ADMINISTRATOR: Ryan Singer M.D. For any questions, please call customer service at FREQUENCY:OTHER Resulting Agency Comment Specimen source: Blood Shahriar Byers MD LAB BLOOD ORDERABLES Final Result Performing Organization Address City/[facility]/ZIP Co de Phone Number [facility] See order comments or contact performing lab Unknown, [place] * (ABNORMAL) [facility] Chemistry (06/12/2025) Only the most recent of6 resultswithin the time period is included. BUN 107(H) 6 - 19 mg/dL [facility] Creatinine 23.32(H) 0.60 - 1.30 mg/dL [facility] BUN/Creatinine Ratio 4.6(L) 10.0 - 20.0 [facility] Sodium 136 136 - 145 mEq/L [facility] Potassium 4.9 3.5 - 5.1 mEq/L [facility] Chloride 96 96 - 108 mEq/L [facility] Bicarbonate (CO2) 14(L) 22 - 29 mEq/L [facility] Calcium 8.9 8.4 - 10.2 mg/dL [facility] Glucose 99 70 - 100 mg/dL [facility] 06/12/2025 06/14/2025 9:5 0 AM CDT Narrative [facility] - 06/14/2025 Unless otherwise specified, test(s) performed at: [facility], [address] [place], [place] [id number] JUNIOR LINUX ADMINISTRATOR: Ryan Singer M.D. For any questions, please call customer service at FREQUENCY:OTHER Resulting Agency Comment Specimen source: Serum Shahriar Byers MD LAB BLOOD ORDERABLES Final Result [facility] See order comments or contact performing lab Unknown, [place] * (ABNORMAL) HD KINETICS (05/30/2025) Only the most recent of3 resultswithin the time period is included. [facility] % Urea Reduction 84(H) 65 - 80 % [facility] 05/30/2025 05/31/2025 10: 48 AM CDT Narrative Resulting Agency Comment Specimen source: Plasma Shahriar Byers MD LAB BLOOD ORDERABLES Final Result Performing Organization Address [facility] Co de Phone Number [facility] See order comments or contact performing lab Unknown, [place] * SPECIAL CHEMISTRY (05/30/2025) Pathologist [facility] Vitamin D, 25-OH, Total 45.2 30.0 - 100.0 ng/mL [facility] Comment: Please Note: Effective August 17, 2023, the methodology for this test has changed to the [facility] [email or web address]. 05/30/2025 05/31/2025 10: 40 AM CDT Narrative Resulting Agency Comment Specimen source: Serum Result [facility] Shahriar Byers MD LAB BLOOD BANK TEST O RDERABLES Final Result Performing Organization Address [facility] de Phone Number [facility] See order comments or contact performing lab Unknown, [place] * POST CHEMISTRY (05/30/2025) Only the most recent of3 resultswithin the time period is included. [facility] BUN Post Dialysis 11 6 - 19 mg/dL [facility] 05/30/2025 05/31/2025 10: 48 AM CDT Narrative [facility] - 05/31/2025 Unless otherwise specified, test(s) performed at: [facility], [address] [place] [id number] JUNIOR LINUX ADMINISTRATOR: Ryan Singer M.D. For any questions, [...] II) 2.35 [facility] eKt/V Gotch 1.94 [facility] nPCR_HD 1.20 [facility] eNPCR 1.06 [facility] eKt/V ([place]) 2.03 [facility] 05/30/2025 05/30/2025 [facility] Ordering Provider LAB BLOOD ORDERABLES Final Result Performing Organization Address City/[facility]/ZIP Co de Phone Number [facility] Contact Performing lab Unknown, [place] from Last 3 Months Insurance Medicaid [place] ([id number]) [facility] Medicare
--- OUTSIDE RECORDS SUMMARY | 2025-06-27 20:22 | XMS_ITS | Encounter Summary ---
Author Organization [facility] Address 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 Gender Identity Not on file Sexual Orientation Not on file documented as of this encounter Plan of Treatment Upcoming Encounters Date Type Department Care Team ([facility] Contact Info) Description 12/05/2025 2:40 PM QUEEN PRODUCER Office Visit [address] [phone] Beverly Veronica MD [address] [place] [phone] documented as of this encounter Visit Diagnoses Not on filedocumented in this encounter Additional Health Concerns Assessment Noted Time PHQ-9 Depression Total Score: 3 05/29/20 25 3:06 PM CDT documented as of this encounter Care Teams Wire Coating Operator Metal Relationship Specialty Start Date End Date Beverly Veronica MD [address] [place] [phone] PCP - General Family Practice 05/29/25 documented as of this encounter
--- OUTSIDE RECORDS SUMMARY | 2025-06-27 20:23 | XMS_ITS | Encounter Summary ---
Author Organization [facility], [facility] Address [address] [place] [address] Phone Care Team Providers Care Dry Lumber Grader Name Role Phone Unavailable Primary Care Provider Unavailabl e Encounter Details Date Type Department Care Team (Late st Contact Info) Description 06/20/2025 Orders Only [facility] [address] [place] [address] Shahriar Byers MD [address] [facility] [address] [place] [address] Social History Tobacco Use Types [...] Date/Time Associated Diagnosis Comments HEMATOLOGY Routine 06/20/2025 documented in this encounter Results * (ABNORMAL) HEMATOLOGY (06/20/2025) Hemoglobin 8.4(L) 14.0 - 18.0 g/dL [facility] Hemoglobin x 3 25.2(L) 42.0 - 54.0 % [facility] 06/20/2025 06/21/2025 3:0 4 PM CDT Narrative [facility] - 06/21/2025 Unless otherwise specified, test(s) performed at: [facility], [address] [place] [address] VULCANIZING PRESS OPERATOR: Ryan Singer M.D. For any questions, please call customer service at FREQUENCY:OTHER Resulting Agency Comment Specimen source: Blood us Shahriar Byers MD LAB BLOOD ORDERABLES Final Result [facility] See order comments or contact performing lab Unknown, [place] documented in this encounter Visit Diagnoses Not on filedocumented in this encounter
--- OUTSIDE RECORDS SUMMARY | 2025-06-27 20:23 | XMS_ITS | Clinical Summary ---
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
[2025-06-27 20:34] VITALS: BP 226/146; PULSE 76; RESP 18; TEMP 36.6; O2SAT 98
--- NOTE | 2025-06-27 20:38 | ECG_ITS ---
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 Measurements Intervals [place] Rate: 73 P: 62 HI: 140 QRS: 62 QRSD: 85 T: 42 QT: 432 QTc: 476 Interpretive Statements SINUS RHYTHM Compared to ECG 06/10/2025 17:21:54 Prolonged QT interval no longer present Electronically Signed On 06-28-2025 21:12:23 CDT by Orlando Brown M.D. [email or web address]
[2025-06-27 21:01] LABS: Hematocrit 21.1 % (37-53); Mean Corpuscular HGB Conc 30.3 g/dL (30-55); Mean Corpuscular Hemoglobin 31.5 pg (27-33); Mean Corpuscular Volume 103.9 fl (82-101); Nucleated Red Blood Cells % 0 %; Platelet Count 70 10^3/cmm (157-399); Red Blood Count 2.03 10^6/uL (3.85-5.65); White Blood Count 5.58 10^3/uL (3.29-11.43)
[2025-06-27 21:30] LABS: Alanine Aminotransferase 13 U/L (0-41); Albumin Level 4.2 g/dL (3.5-5.2); Alkaline Phosphatase 68 U/L (40-130); Calcium 8.0 mg/dL (8.5-10.5); Carbon Dioxide 18 mmol/L (22-29); Chloride 103 mmol/L (98-107); Creatinine Clr Calc Pharmacy 4.3457; Globulin 2.1 g/dL (1.3-4.6); Glucose 69 mg/dL (65-115); Osmolality Calculated 323 mOsm/kg (285-295); Sodium 142 mmol/L (136-145); Total Protein 6.3 g/dL (6.6-8.7)
[2025-06-27 21:32] VITALS: BP 236/145; PULSE 73; RESP 16; O2SAT 97
[2025-06-27 21:36] LABS: Blood Urea Nitrogen 98 mg/dL (6-20); Hemoglobin 6.40 g/dL (11.27-16.99)
[2025-06-27 21:37] LABS: Anion Gap 27.0 (5-19); Aspartate Amino Transferase 21 U/L (0-40); Potassium 6.0 mmol/L (3.5-5.1)
[2025-06-27 21:42] LABS: Hematocrit 21.0 % (37-53); Hemoglobin 6.60 g/dL (11.27-16.99)
[2025-06-27] MEDS: LORazepam 1 MG/0.5 ML injection 0.5 MG IVP (21:45)
[2025-06-27] MEDS: hyDRALAzine 20 mg/mL INJ 1 mL IVP ×3 (21:46→23:07)
[2025-06-27 22:02] LABS: NT Pro B Type Natriuretic Pept > 70000 pg/mL (0-125)
[2025-06-27] MEDS: insulin regular-human 100 units/1 mL 10 UNIT IVP (22:13)
--- NOTE | 2025-06-27 22:16 | W.ED.SOB ---
HPI - SOB/Dyspnea General: Chief Complaint: Shortness of Breath/Dyspnea Stated Complaint: Water in Lungs\Headache Time Seen by Provider: 06/27/25 20:18 Source: patient Mode of arrival: ambulatory Limitations: no limitations History of Present Illness: HPI Narrative: 24-year-old male history of end-stage renal disease noncompliant history on his dialysis patient states he has not went over to dialysis in over a week states for the last 2 days he been having some pains in his neck along with shortness of breath feeling like he has gained water weight. He denies any vomiting diarrhea denies any chest pain. Denies any cough or fever Associated symptoms: Deny abdominal pain, chest pain, fever(s), nausea or vomiting Related Data Home Medications ?Medication ?Instructions ?Recorded ?Confirmed labetalol 100 mg tablet 200 mg PO BID 09/11/24 04/12/25 vit B,C-folic ac 800 mcg-zinc 12.5 1 tab PO DAILY 09/11/24 04/12/25 mg-selen-D3 2,000 unit-vit E tablet (RenaPlex-D) levetiracetam 500 mg tablet See Rx Instructions .Route .COMPLEX 02/12/25 04/12/25 sevelamer carbonate 800 mg tablet 800 - 1,600 mg PO TID 02/12/25 04/12/25 trazodone 50 mg tablet 50 mg PO BEDTIME 02/12/25 04/12/25 hydralazine 100 mg tablet 100 mg PO TID 04/05/25 04/12/25 methocarbamol 500 mg tablet 500 - 1,000 mg PO Q6H PRN Muscle 04/05/25 04/12/25 Spasm sumatriptan 20 mg/actuation nasal 20 mg intranasal Q12H PRN Migraine 04/05/25 04/12/25 spray Headache Previous Rx's ?Medication ?Instructions ?Recorded B-complex with vitamin C 1 tab PO DAILY 30 days #30 tabs 08/04/24 divalproex 500 mg tablet,delayed 500 mg PO BID 30 days #60 tabs 08/04/24 release clonazepam 1 mg tablet (Klonopin) 1 mg PO BID PRN anxiety #10 tabs 01/09/25 prednisone 5 mg tablet 5 mg PO DAILY #60 tabs 02/14/25 Allergies Allergy/AdvReac Type Severity Reaction Status Date / Time NSAIDS (Non-Steroidal Allergy Severe unable to Verified 06/27/25 20:41 Anti-Inflamma take due to kidney disease sertraline (From Zoloft) Allergy Unknown Verified 06/27/25 20:41 Review of Systems Const: Denies: fever(s), chills, body aches or change in appetite ENMT: Denies: throat pain or dental pain Card: Denies: chest pain Resp: Reports: dyspnea GI: Denies: abdominal pain, nausea, vomiting or diarrhea Musc: Denies: neck pain or back pain Skin/Breast: Denies: rash Neuro: Denies: headache(s) PFSH ED PFSH: Medical History Noncompliance with renal dialysis Adrenal insufficiency Hypoglycemia CKD (chronic kidney disease) stage V requiring chronic dialysis Generalized anxiety disorder Other stimulant dependence, in remission Problems related to lack of adequate sleep Substance abuse Depression Anxiety Social History Smoking and tobacco/nicotine status: unknown if used tobacco/nicotine Quit status (tobacco/nicotine): has tried quititng Number of times tried to quit tobacco: 4 Second hand smoke exposure: No Alcohol intake: never Substance/Drug Use: current Substance/Drug use frequency: Special occassions/opportunity only Additional social history: Patient uses marijuana 1 g every other day he has remote history of some meth use. He reports chewing tobacco and using nicotine pouches but denies smoking cigarettes. He denies suicidal ideation. Patient is companied by his girlfriend and his CODE STATUS is always been full code I confirmed with the patient on 06/05/2025 that he wants full CODE STATUS by Daron Ayala MD Course Vital Signs: Vital signs: Vital Signs Temperature 97.9 F 06/27/25 20:34 Pulse Rate 105 H 06/27/25 22:51 Respiratory Rate 22 H 06/27/25 22:59 Blood Pressure 189/126 06/27/25 22:51 Pulse Oximetry 98 06/27/25 22:59 Oxygen Delivery Me thod Room Air 06/27/25 22:51 MDM - SOB/Dyspnea Medical Decision Making Patient presents here with dyspnea is hyperkalemic along with fluid overloaded and anemic likely from missing his dialysis he has no signs of bleeding at this time. Spoke to hospitalist will admit at this time. Medical Records I reviewed the patient's medical records. Lab Data I reviewed the patient's lab results. 06/27/25 21:38 06/27/25 20:52 Labs/Radiology: Radiology Impressions Chest X-Ray 06/27/25 20:17 IMPRESSION: New hazy opacity in the left lateral lower lung, concerning for pneumonia. Laboratory Results WBC 5.58 10^3/uL (3.29-11.43) 06/27/25 20:52 RBC 2.03 10^6/uL (3.85-5.65) L 06/27/25 20:52 Hgb 6.60 g/dL (11.27-16.99) L 06/27/25 21:38 Hct 21.0 % (37-53) L 06/27/25 21:38 MCV 103.9 fl (82-101) H 06/27/25 20:52 MCH 31.5 pg (27-33) 06/27/25 20:52 MCHC 30.3 g/dL (30-55) 06/27/25 20:52 RDW 16.3 % (12.1-15.1) H 06/27/25 20:52 Plt Count 70 10^3/cmm (157-399) L 06/27/25 20:52 MPV 12.1 fL (7.4-10.4) H 06/27/25 20:52 Neut % (Auto) 69.0 % 06/27/25 20:52 Lymph % (Auto) 11.8 % 06/27/25 20:52 [place] % (Auto) 15.9 % 06/27/25 20:52 Eos % (Auto) 2.2 % 06/27/25 20:52 Baso % (Auto) 0.7 % 06/27/25 20:52 Neut # (Auto) 3.85 10^3/uL (1.8-7.7) 06/27/25 20:52 Lymph # (Auto) 0.7 10^3/uL (0.8-4.8) L 06/27/25 20:52 [place] # (Auto) 0.9 10^3/uL (0.2-0.9) 06/27/25 20:52 Eos # (Auto) 0.1 10^3/uL (0.0-0.8) 06/27/25 20:52 Baso # (Auto) 0.0 10^3/uL (0.0-0.1) 06/27/25 20:52 Nucleated RBC % (auto) 0 % 06/27/25 20:52 Nucleated RBCs # 0.0 /100WBC 06/27/25 20:52 Sodium 142 mmol/L (136-145) 06/27/25 20:52 Potassium 6.0 mmol/L (3.5-5.1) H 06/27/25 20:52 Chloride 103 mmol/L (98-107) 06/27/25 20:52 Carbon Dioxide 18 mmol/L (22-29) L 06/27/25 20:52 Anion Gap 27.0 (5-19) H 06/27/25 20:52 BUN 98 mg/dL (6-20) H* 06/27/25 20:52 Creatinine 19.1 mg/dL (0.7-1.2) H* 06/27/25 20:52 GFR Calculation 3.1 mL/min (90-130) L 06/27/25 20:52 Glucose 69 mg/dL (65-115) 06/27/25 20:52 Calculated Osmolality 323 mOsm/kg (285-295) H 06/27/25 20:52 Calcium 8.0 mg/dL (8.5-10.5) L 06/27/25 20:52 Total Bilirubin 0.2 mg/dL (0.15-1.2) 06/27/25 20:52 AST 21 U/L (0-40) 06/27/25 20:52 ALT 13 U/L (0-41) 06/27/25 20:52 Alkaline Phosphatase 68 U/L (40-130) 06/27/25 20:52 NT-Pro-B Natriuret Pep > 60933 pg/mL (0-125) H 06/27/25 20:52 Total Protein 6.3 g/dL (6.6-8.7) L 06/27/25 20:52 Albumin 4.2 g/dL (3.5-5.2) 06/27/25 20:52 Globulin 2.1 g/dL (1.3-4.6) 06/27/25 20:52 Blood Type A Negative 06/27/25 22:02 Rho(D) Type Rh negative 06/27/25 22:02 Antibody Screen Negative 06/27/25 22:02 Crossmatch See Detail 06/27/25 22:02 All radiology interpretation(s) finalized by discharge EKG Data EKG 1: I personally reviewed and interpreted this EKG as follows: EKG Interpretation Date: 06/27/25 EKG interpretation time: 20:38 Interpretation: nsr hr [address] elevation qrs 85 qtc 457 Critical Care Time Critical Care Time: Critical Care Time: Yes Total Critical Care Time: 45 Attestation: The high probability of a clinically significant, sudden or life threatening deterioration of the patient's renal system(s) required my full and direct attention, intervention and personal management. The critical care time is as shown. This time is in addition to time spent performing any reported procedures but includes the following: [x] Data and vital sign review and interpretation [x] Patient assessment, examination and intervention [x] Documentation [x] Medication orders and management Discharge Plan Discharge Patient Disposition: Admitted As Inpatient Clinical Impression: Hypertension, ESRD on hemodialysis, Acute hyperkalemia, Volume overload, Anemia Condition: Stable Coding Level of Care Code ED Apparel Manager for Loida Menon
--- NOTE | 2025-06-27 22:47 | PM.HP ---
Providers/Chief Complaint Admitting Physician: MERCEDEZ CORDERO DO--- patient seen and evaluated before 12 midnight Primary Care Provider: Beverly Veronica MD Chief Complaint: Water in Lungs\Headache History of Present Illness Vance Sainz is a 24 year old male with medical history significant for chronic renal failure on chronic hemodialysis with medical noncompliance to medical care and noncompliance to hemodialysis. Patient had not dialyzed for the past 1 week coming in this time short of breath volume overloaded hypertensive urgency systolic over 200s and diastolic greater than 110. Patient had received 2 doses of IV 20 mg hydralazine at 2 separate times with systolic blood pressure coming down to 180s. Upon my recycling blood pressure evaluated and patient systolic went back to the 200s and another dose of hydralazine 20 mg given along with oral 50 mg of hydralazine given. Nephrology had been called had not called back patient needed an emergent hemodialysis. Patient is with much electrolyte imbalances with potassium of 6 BUN 98 and creatinine of 19.1. Serum glucose 69. Patient hemoglobin is 6.6, pretty anemic and partly due to hemodilution from large volume overload. Patient with jugular venous distention of over 10 cm at 45 degrees ankle. Patient will be en route to stepdown unit. There are no EKG changes. Review of Systems Narrative: System review of all 10 organ review is significant for cardiovascular failure due to renal failure with volume overload. Otherwise unremarkable Medications/Allergies Home Medications ?Medication ?Instructions ?Recorded ?Confirmed ?Last Taken ?Type B-complex with vitamin C 1 tab PO DAILY 30 days #30 tabs 08/04/24 04/12/25 09/10/24 Rx divalproex 500 mg tablet,delayed 500 mg PO BID 30 days #60 tabs 08/04/24 04/12/25 09/10/24 Rx release labetalol 100 mg tablet 200 mg PO BID 09/11/24 04/12/25 02/12/25 09:00 History vit B,C-folic ac 800 mcg-zinc 12.5 1 tab PO DAILY 09/11/24 04/12/25 09/10/24 History mg-selen-D3 2,000 unit-vit E tablet (RenaPlex-D) clonazepam 1 mg tablet (Klonopin) 1 mg PO BID PRN anxiety #10 tabs 01/09/25 04/12/25 02/12/25 09:00 Rx levetiracetam 500 mg tablet See Rx Instructions .Route .COMPLEX 02/12/25 04/12/25 02/11/25 09:00 History sevelamer carbonate 800 mg tablet 800 - 1,600 mg PO TID 02/12/25 04/12/25 02/12/25 09:00 History trazodone 50 mg tablet 50 mg PO BEDTIME 02/12/25 04/12/25 01/30/25 21:00 History prednisone 5 mg tablet 5 mg PO DAILY #60 tabs 02/14/25 04/12/25 Unknown Rx hydralazine 100 mg tablet 100 mg PO TID 04/05/25 04/12/25 Unknown History methocarbamol 500 mg tablet 500 - 1,000 mg PO Q6H PRN Muscle 04/05/25 04/12/25 Unknown History Spasm sumatriptan 20 mg/actuation nasal 20 mg intranasal Q12H PRN Migraine 04/05/25 04/12/25 Unknown History spray Headache Allergies Allergy/AdvReac Type Severity Reaction Status Date / Time NSAIDS (Non-Steroidal Allergy Severe unable to Verified 06/27/25 20:41 Anti-Inflamma take due to kidney disease sertraline (From Zoloft) Allergy Unknown Verified 06/27/25 20:41 PFSH Acute PFSH: Medical History Noncompliance with renal dialysis Adrenal insufficiency Hypoglycemia CKD (chronic kidney disease) stage V requiring chronic dialysis Generalized anxiety disorder Other stimulant dependence, in remission Problems related to lack of adequate sleep Substance abuse Depression Anxiety Social History Smoking and tobacco/nicotine status: unknown if used tobacco/nicotine Quit status (tobacco/nicotine): has tried quititng Number of times tried to quit tobacco: 4 Second hand smoke exposure: No Alcohol intake: never Substance/Drug Use: current Substance/Drug use frequency: Special occassions/opportunity only Additional social history: Patient uses marijuana 1 g every other day he has remote history of some meth use. He reports chewing tobacco and using nicotine pouches but denies smoking cigarettes. He denies suicidal ideation. Patient is companied by his girlfriend and his CODE STATUS is always been full code I confirmed with the patient on 06/05/2025 that he wants full CODE STATUS by Daron Ayala MD Vitals/I&O/Wt Last Vital Signs Temp 97.9 F 06/27/25 20:34 Pulse 73 06/27/25 21:32 Resp 16 06/27/25 21:32 BP 236/145 06/27/25 21:32 Pulse Ox 97 06/27/25 21:32 O2 Del Method Room Air 06/27/25 21:32 06/27/25 06/27/25 06/27/25 06:59 14:59 22:59 Intake Total 250 / 250 Balance 250 / 250 Weight last 48 hrs Weight 50.349 kg Physical Exam Narrative: Generally patient is ill-appearing complaining of headaches generalized more so weakness. HEENT normocephalic atraumatic neck neck is with jugular venous distention to 10 cm at an angle of 45 degrees head of the bed up, neck neck is supple cardiovascular heart rate is regular lungs are diminished at the bases bilaterally abdomen soft nontender nondistended unremarkable extremities are intact no edema has good pulses neurology he has no focality lab studies lab studies significant for hemoglobin of 6.6 potassium of 6 BUN of 98 and creatinine of 19.1 Data 06/27/25 21:38 06/27/25 20:52 A&P Assessment and plan 1. Hypertensive urgency: 2. ESRD on hemodialysis: 3. Noncompliance with renal dialysis: 4. Increased anion gap metabolic acidosis: 5. Uremic acidosis: 6. Noncompliance with medication regimen: 7. Acute hyperkalemia: 8. Methamphetamine abuse: 9. Depression: 10. Volume overload: 11. Anemia: Plan: #1 Hypertensive urgency Initiated IV hydralazine x 3 different doses in the emergency room and at different times, now we are adding oral hydralazine at 50 mg x 1 - Will continue to monitor - Nephrology consulted from the emergency room had not responded yet for an emergent hemodialysis -Will continue to monitor blood pressure closely #2 Volume overload with electrolyte imbalance such as hyperkalemia - Patient needs urgent hemodialysis #3 End-stage renal disease on chronic hemodialysis - Patient is very noncompliant does not go to hemodialysis and has been off dialysis for 1 week - Patient is in need for hemodialysis at this time #4 Anemia - This is anemia of chronic disease compounded with likely a hemodialysis lesion from volume overload - Patient was get transfusion but will be in the setting of hemodialysis or else there will be worsening of volume overload at this time - Will repeat H&H and get hemodialysis as quickly as possible #5 Medical noncompliance with medication - Patient is with multiple blood pressure medication but does not take them and has ongoing constant hypertensive urgency and emergency - Optimize then with follow-up with education for the patient on subject matter-General Noncompliance #6 Anion gap metabolic acidosis secondary to chronic renal failure - Without adequate dialysis - Continue to treat and monitor PDMP PDMP Reviewed: Not Reviewed Attestations Medical Necessity Statement*: Patient with much volume overload hypertensive crisis electrolyte imbalance significant for hyperkalemia in need of urgent hemodialysis this serves inpatient care for optimization of care. Patient needs at least 2 midnights Coding Level of Care Code 04127 Diagnoses Hypertensive urgency I16.0 ESRD on hemodialysis N18.6; Z99.2 Noncompliance with renal dialysis Z91.158 Increased anion gap metabolic acidosis E87.29 Uremic acidosis N25.89 Noncompliance with medication regimen Z91.148 Acute hyperkalemia E87.5 Methamphetamine abuse F15.10 Depression F32.A Volume overload E87.70 Anemia D64.9 Time Spent (min) 60
[2025-06-27 22:51] VITALS: BP 189/126; PULSE 105; RESP 18; O2SAT 98
[2025-06-27 22:59] VITALS: RESP 22; O2SAT 98
[2025-06-27] MEDS: morphine 4 mg/mL SDV 1 mL IVP (22:59)
[2025-06-27 23:40] VITALS: BP 192/119; PULSE 105; RESP 20; O2SAT 97
[2025-06-28] VITALS (42 sets, daily range): BP systolic 140–226; BP diastolic 98–147; PULSE 63–96; RESP 13–23; TEMP 36.3–36.7; O2SAT 92–99
[2025-06-28] MEDS: morphine 4 mg/mL SDV 1 mL 2 MG IVP ×3 (01:23→09:47)
--- NOTE | 2025-06-28 01:33 | ECG_ITS ---
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 Measurements Intervals Mora Rate: 85 P: 69 SD: 138 QRS: 52 QRSD: 98 T: 51 QT: 404 QTc: 481 Interpretive Statements SINUS RHYTHM PROLONGED QT INTERVAL Compared to ECG 06/10/2025 17:21:54 QT INTERVAL HAS MILDLY INCREASED Electronically Signed On 06-28-2025 21:20:27 CDT by Orlando Brown M.D. [id number] [id number]
--- NOTE | 2025-06-28 01:53 | PC.NURSE ---
contacted MD about patient experience an increased amount of anxiety, and stated complaining of chest pain, an EKG was obtained, no new orders obtained. informed MD that BP is still elevated at 174/119, MD ordered 100mg of hydrazine once now. orders entered
--- NOTE | 2025-06-28 02:17 | PC.NURSE ---
patient refused one time order of hydralazine 100mg, this nurse explained the importance of trying to lower blood pressure and the hydralazine has brought you down from 240 to 170s systolic, the patient said that we cannot keep throwing the same medication at his blood pressure that we need to try something else. MD inform of the whole conversation between this nurse and patient, and notified of the medication refusal, no new orders received at this time
--- NOTE | 2025-06-28 02:28 | PM.CONSULT ---
Providers/Reason For Consult Consulting Physician/Specialty*: [facility]/Nephrology Reason for Consult*: ESRD Attending Physician: Mercedez Cordero MD Primary Care Provider: Beverly Veronica MD History of Present Illness History of Present Illness Vance Sainz is a 24 year old male Vance Sainz is a 24 year old male With past medical history of end-stage renal disease on dialysis per Thursday schedule, failed kidney transplant, depression, substance abuse, vitamin insufficiency, seizure presented to the emergency department after missing HD x 1 week. BP elevated - 222/122 in ER. Labs reviewed -Noted hyperkalemia Review of Systems Narrative: negative Medications/Allergies Home Medications ?Medication ?Instructions ?Recorded ?Confirmed ?Last Taken ?Type labetalol 100 mg tablet 200 mg PO BID 09/11/24 06/28/25 02/12/25 09:00 History clonazepam 1 mg tablet (Klonopin) 1 mg PO BID PRN anxiety #10 tabs 01/09/25 06/28/25 02/12/25 09:00 Rx prednisone 5 mg tablet 5 mg PO DAILY #60 tabs 02/14/25 06/28/25 Unknown Rx hydralazine 100 mg tablet 100 mg PO TID 04/05/25 06/28/25 Unknown History sumatriptan 20 mg/actuation nasal 20 mg intranasal Q12H PRN Migraine 04/05/25 06/28/25 Unknown History spray Headache amlodipine 10 mg tablet 10 mg PO DAILY 06/28/25 06/28/25 Unknown History fluoxetine 10 mg capsule 10 mg PO DAILY 06/28/25 06/28/25 Unknown History losartan 25 mg tablet 25 mg PO DAILY 06/28/25 06/28/25 Unknown History ondansetron 4 mg disintegrating 1 mg PO Q6H PRN Nausea And Vomiting 06/28/25 06/28/25 Unknown History tablet Allergies Allergy/AdvReac Type Severity Reaction Status Date / Time NSAIDS (Non-Steroidal Allergy Severe unable to Verified 06/27/25 20:41 Anti-Inflamma take due to kidney disease sertraline (From Zoloft) Allergy Unknown Verified 06/27/25 20:41 Current Medications Generic Name Dose Route Start Last Admin Trade Name Freq PRN Reason Stop Dose Admin Morphine Sulfate 2 mg 06/28/25 00:23 06/28/25 01:23 Morphine 4 Mg/Ml Sdv 1 Ml IVP 2 mg Q4H PRN Administration SEVERE PAIN PFSH Acute PFSH: Medical History (Updated 06/27/25 @ 23:15 by Mercedez Cordero MD) Noncompliance with renal dialysis Adrenal insufficiency Hypoglycemia CKD (chronic kidney disease) stage V requiring chronic dialysis Generalized anxiety disorder Other stimulant dependence, in remission Problems related to lack of adequate sleep Substance abuse Depression Anxiety Social History Smoking and tobacco/nicotine status: unknown if used tobacco/nicotine Quit status (tobacco/nicotine): has tried quititng Number of times tried to quit tobacco: 4 Second hand smoke exposure: No Alcohol intake: never Substance/Drug Use: current Substance/Drug use frequency: Special occassions/opportunity only Additional social history: Patient uses marijuana 1 g every other day he has remote history of some meth use. He reports chewing tobacco and using nicotine pouches but denies smoking cigarettes. He denies suicidal ideation. Patient is companied by his girlfriend and his CODE STATUS is always been full code I confirmed with the patient on 06/05/2025 that he wants full CODE STATUS by Daron Ayala MD Vitals/I&O/Wt Last Vital Signs Temp 97.9 F 06/27/25 20:34 Pulse 92 06/28/25 00:26 Resp 22 H 06/28/25 01:23 BP 168/115 06/28/25 00:26 Pulse Ox 96 06/28/25 00:26 O2 Del Method Room Air 06/28/25 00:24 06/27/25 06/27/25 06/28/25 14:59 22:59 06:59 Intake Total 250 / 250 250 / 500 Balance 250 / 250 250 / 500 Weight last 48 hrs Weight 52.299 kg Weight 50.349 kg Physical Exam Narrative: awake , alert , no distress on room air No JVD PEERLA S1S2 RRR per report Lungs clear per report Abd - soft , non tender Ext -No edema Data 06/29/25 02:27 06/29/25 02:27 A&P Assessment and plan 1. ESRD on hemodialysis: 1.ESRD:missed HD and now presented with volume overload and hyperkalemia. Urgent HD today and UF 3 L , will repeat HD in Am 2. Hypertension : bP elevated , UF wih hD , resume home medications 3. Hyperkalemia , K 6.0 ,HD on 1K dialysate , low k diet 4. Anemia :Hb 6.5 , monitor , recommend transfusion , will order Epogen when BP improves 5. metabolic acidosis , should improve with HD Patient seen and examined with a nurse using audiovisual equipment. Patient consented to telehealth and to dialysis. Plan: per medicine PDMP PDMP Reviewed: Not Reviewed Coding Level of Care Code Acute Code for Chg Fwd Diagnoses ESRD on hemodialysis N18.6; Z99.2
[2025-06-28 03:44] LABS: Mean Corpuscular HGB Conc 31.1 g/dL (30-55); Mean Corpuscular Hemoglobin 31.7 pg (27-33); Mean Corpuscular Volume 102.0 fl (82-101); Nucleated Red Blood Cells % 0 %; Platelet Count 85 10^3/cmm (157-399); Red Blood Count 2.05 10^6/uL (3.85-5.65); White Blood Count 8.74 10^3/uL (3.29-11.43)
[2025-06-28] MEDS: heparin, porcine 1,000 unit/mL INJ 10 mL 1000 UNIT IV (03:56)
[2025-06-28] MEDS: diphenhydrAMINE 50 mg/mL SDV 1mL IVP (03:56)
[2025-06-28 04:06] LABS: Alanine Aminotransferase 12 U/L (0-41); Albumin Level 4.0 g/dL (3.5-5.2); Alkaline Phosphatase 68 U/L (40-130); Anion Gap 32.3 (5-19); Aspartate Amino Transferase 16 U/L (0-40); Calcium 8.2 mg/dL (8.5-10.5); Carbon Dioxide 16 mmol/L (22-29); Chloride 96 mmol/L (98-107); Creatinine Clr Calc Pharmacy 4.3886; Globulin 2.0 g/dL (1.3-4.6); Glucose 77 mg/dL (65-115); Magnesium 2.9 mg/dL (1.7-2.3); Osmolality Calculated 319 mOsm/kg (285-295); Potassium 5.3 mmol/L (3.5-5.1); Sodium 139 mmol/L (136-145); Total Protein 6.0 g/dL (6.6-8.7)
[2025-06-28 04:13] LABS: Blood Urea Nitrogen 103 mg/dL (6-20)
[2025-06-28 04:14] LABS: Hematocrit 20.9 % (37-53); Hemoglobin 6.50 g/dL (11.27-16.99)
--- NOTE | 2025-06-28 06:16 | PC.NURSE ---
All blood and vitals taken from Shania BELLO the dialysis nurse. vitals and infusion documented by this nurse given that Shania BELLO does not have access to [facility]
[2025-06-28] MEDS: divalproex DR 500 mg Tablet PO ×2 (08:03→17:08)
--- NOTE | 2025-06-28 08:41 | PC.PHAR ---
Guardian/friend verified pts' current medications. Several were discontinued. Pt is no longer taking: B complex with c, Divalproex 500mg, Levetiracetam 500mg, Methocarbamol 500mg, Renaplex d 800mg, Sevelamer Carbonate 800mg, or Trazodone 50mg.
--- NOTE | 2025-06-28 10:37 | PC.NURSE ---
This nurse assumed care approximately 0930, IV was pulled out upon entering room. patient refused to have iv anywhere but left FA, patient not happy with care during hospital stay, would not suggest anything to help stay be better, MD on unit aware of bp in the 200s/100s plan to allow oral antihypertensives time to work
--- NOTE | 2025-06-28 11:45 | P.PN_ITS ---
Subjective 2 Subjective: 24-year-old man reports he had an MRI done in a trailer at [facility] a month ago but has not been given results. Patient refused his oral hydralazine this morning. I started him on amlodipine clonidine and labetalol which I believe he has taken. Patient states he is feeling improved but that yesterday and last night is the worst he has ever been treated in the hospital. RNs report that he was threatening lawsuit. Patient has not been going to dialysis. His potassium was 6. He underwent urgent dialysis and potassium now 5.6. Patient states he has not spoken with Dr. Hurtado on the telemedicine yet Vitals/I&O/Wt Last Vital Signs Temp 97.5 F L 06/28/25 08:15 Pulse 76 06/28/25 08:15 Resp 16 06/28/25 09:47 BP 204/122 06/28/25 08:15 Pulse Ox 98 06/28/25 09:47 O2 Del Method Room Air 06/28/25 08:00 06/27/25 06/28/25 06/28/25 22:59 06:59 14:59 Intake Total 250 / 250 850 / 1100 1250 / 1250 Output Total 2355 / 2355 Balance 250 / 250 850 / 1100 -1105 / -1105 Weight last 48 hrs Weight 52.2 kg Weight 52.299 kg Weight 50.349 kg Physical Exam 2 Narrative: General well-developed male in no acute cardiopulmonary distress CV regular rate and rhythm Lungs clear Skin exam warm Calves no tenderness to pretibial edema Data 06/28/25 03:22 06/28/25 03:22 A&P Assessment and plan 1. Hypertensive urgency: I think this is due to noncompliance and volume overload. Patient has refused some of his medications here. Working with these limitations I have put him on amlodipine, labetalol and clonidine. Will resume losartan 25 mg daily as well 2. Volume overload: Continue with dialysis and anticipate another session tomorrow morning. 3. Noncompliance with renal dialysis: Dialysis per Dr. Hurtado. I have counseled the patient regarding need to continue with regular outpatient dialysis in the past. Will further counseling services director him tomorrow. PDMP PDMP Reviewed: Not Reviewed Attestations 2 Medical Necessity Statement*: Patient remains in the hospital require additional midnight for dialysis Coding Level of Care Code 95662 Diagnoses Hypertensive urgency I16.0 Volume overload E87.70 Noncompliance with renal dialysis Z91.158 Time Spent (min) 32
--- NOTE | 2025-06-28 12:52 | PC.NURSE ---
3rd IV pulled out this shift, waiting on IV access to give ordered vasotech ivp, Dr. Ayala notified. Patient requested to speak to a supervisor type disk quality control regarding care received in hospital
--- NOTE | 2025-06-28 13:18 | PC.NURSE ---
patient advocate came to speak with patient, patient requested she came back later
--- NOTE | 2025-06-28 13:49 | PC.NURSE ---
patient refusing IV, Dr. Aylaa made aware
--- OUTSIDE RECORDS SUMMARY | 2025-06-28 15:46 | XMS_ITS | Encounter Summary ---
Author Organization [facility] Address 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 Gender Identity Not on file Sexual Orientation Not on file documented as of this encounter Plan of Treatment Upcoming Encounters Date Type Department Care Team ([facility] Contact Info) Description 12/05/2025 2:40 PM MACHINE FOLDER Office Visit [address] [phone] Beverly Veronica MD [address] [place] [address] [phone] documented as of this encounter Visit Diagnoses Not on filedocumented in this encounter Additional Health Concerns Assessment Noted Time PHQ-9 Depression Total Score: 3 05/29/20 25 3:06 PM CDT documented as of this encounter Care Teams Patternmaker Wood Relationship Specialty Start Date End Date Beverly Veronica MD [address] [place] [phone] PCP - General Family Practice 05/29/25 documented as of this encounter
--- OUTSIDE RECORDS SUMMARY | 2025-06-28 15:46 | XMS_ITS | Encounter Summary ---
Author Organization [facility] Address [address] [place] [address] Phone Care Team Providers Care Clinical Lab Scientist Name Role Phone Unavailable Primary Care Provider Unavailabl e Encounter Details Date Type Department Care Team (Late st Contact Info) Description 06/20/2025 Orders Only [facility] [address] [place] [address] Shahriar Byers MD [address] [facility] [address] [place] [address] Social History Tobacco Use Types [...] x 3 25.2(L) 42.0 - 54.0 % [facility] 06/20/2025 06/21/2025 3:0 4 PM CDT Narrative [facility] - 06/21/2025 Unless otherwise specified, test(s) performed at: [facility], [address] [place] [address] GROUP CAPTAIN: Ryan Singer M.D. For any questions, please call customer service at FREQUENCY:OTHER Resulting Agency Comment Specimen source: Blood us Shahriar Byers MD LAB BLOOD ORDERABLES Final Result [facility] See order comments or contact performing lab Unknown, [place] documented in this encounter Visit Diagnoses Not on filedocumented in this encounter
--- OUTSIDE RECORDS SUMMARY | 2025-06-28 15:46 | XMS_ITS | Clinical Summary ---
Author Organization [facility] Address [address] [place] [address] Phone Care Team Providers Care Agricultural Mechanic Name Role Phone Unavailable Primary Care Provider [...] patient's age to complete this topic Insurance [facility] [employer] MEDICARE
--- OUTSIDE RECORDS SUMMARY | 2025-06-28 15:46 | XMS_ITS | Encounter Summary ---
Author Organization [facility] Address 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 Gender Identity Not on file Sexual Orientation Not on file documented as of this encounter Plan of Treatment Upcoming Encounters Date Type Department Care Team ([facility] Contact Info) Description 12/05/2025 2:40 PM ZIPPER REPAIRER Office Visit [address] [phone] Beverly Veronica MD [address] [place] [address] [phone] documented as of this encounter Visit Diagnoses Not on filedocumented in this encounter Additional Health Concerns Assessment Noted Time PHQ-9 Depression Total Score: 3 05/29/20 25 3:06 PM CDT documented as of this encounter Care Teams Blanchard Grinder Operator Relationship Specialty Start Date End Date Beverly Veronica MD [address] [place] [phone] PCP - General Family Practice 05/29/25 documented as of this encounter
--- OUTSIDE RECORDS SUMMARY | 2025-06-28 15:46 | XMS_ITS | Clinical Summary ---
Author Organization [facility] Address [address] [place] [address] Phone Care Team Providers Care Stock Digger Name Role Phone Beverly Veronica MD Primary Care Provider [phone]- [phone] Allergies Active Allergy Reactions Criticality Noted Date [...] daily. 30 Tablet 2 5 Active vit B,Z-UA-eiyz-se mishel-vit D3-E (RenaPlex-D) 800 mcg-12.5 mg -2,000 [...] Encounters Date Type Department Care Team Description 06/27/2025 External Device Data STL ABSTRACTION Provider, Abstract 06/20/2025 External Device Data STL ABSTRACTION Provider, Abstract 06/20/2025 Results Follow-Up [facility] [address] [place] [address] Garry Randolph MD MRI CERVICAL WO CONTRAST 06/15/2025 11:29 AM CDT - 06/15/2025 11:59 PM CDT Hospital Encounter [facility] MRI [place] [address] [place] [address] Garry Randolph MD Discharge Disposition: Home or Self Care 05/30/2025 External Device Data STL ABSTRACTION Provider, Abstract 05/29/2025 2:40 PM CDT Office Visit [address] [address] Beverly Veronica MD Abrasion, foot without infection (Primary Dx); Seizure disorder ([facility] Severe major depressive disorder ([facility]); ESRD (end stage renal disease) ([facility]) 05/24/2025 External Device Data STL ABSTRACTION Provider, Abstract 05/16/2025 3:00 PM CDT Office Visit [facility] [address] [place] [phone] Garry Randolph MD Chronic neck pain (Primary Dx); Myofascial pain; DDD (degenerative disc disease), cervical; Cervical spondylosis without myelopathy; Cervical stenosis of spinal canal 05/16/2025 External Device Data STL ABSTRACTION Provider, Abstract 05/03/2025 External Device Data STL ABSTRACTION Provider, Abstract 04/27/2025 1:26 AM CDT - 04/27/2025 3:02 AM CDT Emergency [facility] [address] [place] [address] Demario Felipe MD Neck pain (Primary Dx); ESRD on hemodialysis ([facility]); Poorly-controlled hypertension Discharge Disposition: Home or Self Care 04/27/2025 Travel 04/26/2025 12:15 AM CDT - 04/26/2025 11:59 PM CDT Hospital Encounter [facility] Emergency Medical Services [facility] [address] [place] [address] Ambulance, [facility] Discharge Disposition: [facility] 04/25/2025 2:50 PM CDT Ancillary Procedure [facility] [address] [address] [place] [address] Shahriar Mckeon PA Closed dislocation of left elbow, initial encounter 04/25/2025 2:25 PM CDT Ancillary Procedure [address] [address] [place] [address] Shahriar Mckeon PA Left hand pain; Right hand pain 04/25/2025 2:20 PM CDT Office Visit [address] [place] [address] Shahriar Mckeon OR Closed nondisplaced fracture of other part of [...] PNEUM OCOCCAL CONJUGATE VACCINE 20-VALENT (PCV20), POLYSACCHARIDE [id number] CONJUGATE, ADJUVANT 0.5 ML (PF) IM 12/14/2024 [...] on file 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 Constance Lim RN CARDIOLOGY CT ORDERABLES Final R esult * CT [...] IMPRESSION: No acute intracranial abnormality. Constance Joseph McTeer RN CARDIOLOGY CT ORDERABLES Final R esult * (ABNORMAL) CBC WITH DIFFERENTIAL (04/26/2025 9:24 PM CDT) [facility] WBC 11.0 4.5 - 11.0 K/uL 04/26/2025 9:54 PM CDT [facility] RBC 3.38(L) 4.60 - 6.20 M/uL 04/26/2025 9:54 PM CDT [facility] HEMOGLOBIN 10.3(L) 14.0 - 18.0 g/dL 04/26/2025 9:54 PM [facility] H[facility] 33.3(L) 41.0 - 53.0 % 04/26/2025 9:54 PM CDT [facility] MCV 98.5 84.0 - 103.0 fL 04/26/2025 9:54 PM [facility] MCH 30.5 27.0 - 34.0 pg 04/26/2025 9:54 PM [facility] MCHC 30.9 30.0 - 35.0 g/dL 04/26/2025 9:54 PM [facility] PLATELETS 213 140 - 440 K/uL 04/26/2025 9:54 PM [facility] MPV 10.9 8.9 - 12.8 fL 04/26/2025 9:54 PM [facility] RDW 17.2(H) 11.0 - 14.5 % 04/26/2025 9:54 PM [facility] RDW-STDEV 60.4(H) 37.0 - 54.0 fL 04/26/2025 9:54 PM [facility] NEUTROPHILS 92(H) 42 - 75 % 04/26/2025 9:54 PM CDT [facility] LYMPHOCYTES 4(L) 24 - 44 % 04/26/2025 9:54 PM CDT [facility] MONOCYTES 2 2 - 10 % 04/26/2025 9:54 PM CDT [facility] EOSINOPHILS 1 0 - 7 % 04/26/2025 9:54 PM CDT [facility] BASOPHILS 1 0 - 1 % 04/26/2025 9:54 PM CDT [facility] IMMATURE GRANULOCYTES 1 0 - 2 % 04/26/2025 9:54 PM CDT [facility] NEUTROPHIL ABSOLUTE 10.16(H) 2.00 - 8.00 K/uL 04/26/2025 9:54 PM CDT [facility] LYMPHOCYTE ABSOLUTE 0.47(L) 1.20 - 4.00 K/uL 04/26/2025 9:54 PM CDT [facility] MONOCYTE ABSOLUTE 0.22 0.10 - 0.60 K/uL 04/26/2025 9:54 PM CDT [facility] EOSINOPHIL ABSOLUTE 0.06 0.00 - 0.70 K/uL 04/26/2025 9:54 PM CDT [facility] BASOPHILS ABSOLUTE 0.05 0.00 - 0.20 K/uL 04/26/2025 9:54 PM CDT [facility] IMMATURE GRANULOCYTES ABSOLUTE 0.07 0.00 - 0.10 K/uL 04/26/2025 9:54 PM CDT [facility] SMEAR REVIEWED: NN - No Action Needed 04/26/2025 9:54 PM CDT [facility] Blood Venipuncture / Unknown 04/26/2025 9:24 PM CDT 04/26/2025 9:39 PM CDT Constance Lim RN CARDIOLOGY HEMATOLOGY ORDERABLES F inal Result [facility] CLIA # [id number] [address] [address] [place] [address] * (ABNORMAL) COMPREHENSIVE METABOLIC PANEL (04/26/2025 9:24 PM CDT) [facility] SODIUM 137 136 - 145 mmol/L 04/26/2025 10:15 PM T [facility] POTASSIUM 5.8(H) 3.5 - 5.1 mmol/L 04/26/2025 10:15 PM [facility] CHLORIDE 95(L) 98 - 107 mmol/L 04/26/2025 10:15 PM T [facility] CO2 27 22 - 29 mmol/L 04/26/2025 10:15 PM [facility] CALCIUM 9.4 8.6 - 10.0 mg/dL 04/26/2025 10:15 PM [facility] BUN 22(H) 6 - 20 mg/dL 04/26/2025 10:15 PM [facility] CREATININE 4.63(H) 0.67 - 1.17 mg/dL 04/26/2025 10:15 PM [facility] GLUCOSE 98 74 - 99 mg/dL 04/26/2025 10:15 PM [facility] TOTAL PROTEIN 7.4 6.4 - 8.3 g/dL 04/26/2025 10:15 PM [facility] ALBUMIN 5.0 3.5 - 5.2 g/dL 04/26/2025 10:15 PM [facility] BILIRUBIN TOTAL 0.2 0.0 - 1.0 mg/dL 04/26/2025 10:15 PM [facility] ALKALINE PHOSPHATASE 95 40 - 129 U/L 04/26/2025 10:15 PM [facility] AST 11 10 - 50 U/L 04/26/2025 10:15 PM [facility] ALT 7 <=50 U/L 04/26/2025 10:15 PM [facility] GFR 17(L) >=60 mL/min/1. 73 sq meter 04/26/2025 10:15 PM [facility] Comment:eGFR calculated with 2020 CKD-EPI equation. Vegetarian diet, extremely high or low muscle mass, and may affect results. Cystatin C with Glomerular Filtration Rate is a suitable alternative for these patients. ANION GAP 15 9 - 20 mmol/L 04/26/2025 10:15 PM CDT [facility] Blood Venipuncture / Unknown 04/26/2025 9:24 PM CDT 04/26/2025 9:39 PM CDT Constance Makir RN CARDIOLOGY CHEMISTRY ORDERABLES Fi nal Result [facility] CLIA # [id number] [facility] [address] * INSERT PERIPHERAL IV (04/26/2025 9:20 PM CDT) Narrative Nahum Matos RN - 04/26/2025 9:20 PM CDT Nahum Matos RN 04/26/2025 9:39 PM VASCULAR ACCESS TEAM Peripheral IV insertion with lab collection PATIENT NAME: Vance Sainz DATE OF : 2000 CSN: [id number] DATE: 04/26/2025 Room: Room/bed info not found [...] tolerated well. Nahum Matos RN Constance Lim RN CARDIOLOGY IV THERAPY ORDERABLES F inal Result * XR ELBOW 3+ VW LEFT (04/25/2025 2:57 PM CDT) Anatomical Region Laterality Modality Upper Extremity Computed Radiogr aphy Narrative 04/26/2025 8:52 AM CDT X-rays obtained of the left elbow on April 25, 2025 independently reviewed which does not demonstrate any acute osseous abnormalities, fractures, or dislocations noted. [facility] ORDERABLES Fi nal Result * [...] chronic and healed fifth metacarpal neck fracture. [facility] ORDERABLES Fi nal Result from Last 3 Months Insurance MEDICAID [place] RX [employer] RX Member Subscriber Plan / Payer (Ef fective 2025-Present) Name:Vance Sainz Relation to Subscriber:Self Name:Vance Sainz Subscriber ID:Not on file Payer ID:Not on file Group ID:[id number] Type:RX Medicare Part D Address: [place] Advance Directives For more information, please contact: [phone] * Full Code (Latest Code Status on File) Date Activated Date Inactivated Comments 01/31/2025 2:27 PM 02/03/2025 8:44 PM Care Teams Stock Digger Relationship Specialty Start Date End Date Beverly Veronica MD [address] [place] [phone] PCP - General Family Practice 05/29/25
--- OUTSIDE RECORDS SUMMARY | 2025-06-28 15:46 | XMS_ITS | Encounter Summary ---
Author Organization [facility], [facility] Address [address] [facility] [address] [place] [address] Phone Care Team Providers Care Track Sweeper Name Role Phone Unavailable Primary Care Provider Unavailabl e Encounter Details Date Type Department Care Team (Late st Contact Info) Description 08/27/2022 [facility] [address] [facility] [address] [place] [address] Kidney transplant status Social History [...]
--- OUTSIDE RECORDS SUMMARY | 2025-06-28 15:46 | XMS_ITS | Clinical Summary ---
Author Organization [place] [facility], [facility] Address [address] [place] [address] Phone Care Team Providers Care Embedded Systems Developer Name Role Phone Unavailable Primary Care Provider Unavailabl e Encounters Date Type Department Care Team Description 06/20/2025 Orders Only [facility], [facility] [address] [place] [address] Shahriar Byers MD 06/14/2025 Treatment [facility], [facility] [address] [place] [address] Shahriar Byers MD End stage renal disease; Dependence on renal dialysis 06/12/2025 Orders Only [place] [facility] [address] [place] [address] Shahriar Byers MD 06/05/2025 Orders Only [place] [facility], [facility] [address] [place] [address] Shahriar Byers MD 05/30/2025 Orders Only [place] [facility], [facility] [address] [place] [address] Shahriar Byers MD 05/26/2025 Treatment [facility], [facility] [address] [place] [address] Saskia Navas NP End stage renal disease; Dependence on renal dialysis 05/25/2025 Treatment [facility], [facility] [address] [place] [address] Saskia Navas NP End stage renal disease; Dependence on renal dialysis 05/23/2025 Orders Only [facility], [facility] [address] [place] [address] Shahriar Byers MD 05/15/2025 Orders Only [facility], [facility] [address] [place] [address] Shahriar Byers MD 05/10/2025 [facility], [facility] [address] [place] [address] Shahriar Byers MD 05/10/[address] [place] [address], [facility] [address] [place] [address] Shahriar Byers MD End stage renal disease; Dependence on renal dialysis 05/05/2025 [facility], [facility] [address] [place] [address] Saskia Navas, TINO End stage renal disease; Dependence on renal dialysis 05/03/2025 Refill [facility], [facility] [address] [place] [address] Jasmin Carson MA 05/01/2025 Orders Only [facility], [facility] [address] [place] [address] Shahriar Byers MD 04/28/2025 [facility], [facility] [address] [place] [address] Saskia Navas, TINO End stage renal disease; Dependence on renal dialysis 04/24/2025 Orders Only [facility], [facility] [address] [place] [address] Shahriar Byers MD 04/19/2025 [facility], [facility] [address] [place] [phone] Saskia Navas NP End stage renal disease; Dependence on renal dialysis 04/18/2025 Orders Only [facility], [facility] [address] [place] [address] Shahriar Byers MD 03/29/2025 Treatment [facility], [facility] [address] [place] [address] Saskia Navas, TINO End stage renal disease; [...] 05/01/2025 HEMATOLOGY Routine 04/24/2025 HEMATOLOGY Routine 04/18/2025 from Last 3 Months Results * (ABNORMAL) HEMATOLOGY (06/20/2025) Only the most recent of10 resultswithin the time period is included. Hemoglobin 8.4(L) 14.0 - 18.0 g/dL [facility] Hemoglobin x 3 25.2(L) 42.0 - 54.0 % [facility] 06/20/2025 06/21/2025 3:0 4 PM CDT Narrative [facility] - 06/21/2025 Unless otherwise specified, test(s) performed at: [facility], [address] [place] [id number] GLOBE MOUNTER: Ryan Singer M.D. For any questions, please call customer service at FREQUENCY:OTHER Resulting Agency Comment Specimen source: Blood Shahriar Byers MD LAB BLOOD ORDERABLES Final Result Performing Organization Address [facility] de Phone Number [facility] See order comments or contact performing lab Unknown, [place] * (ABNORMAL) [facility] Chemistry (06/12/2025) Only the most recent of5 resultswithin the [...] 06/14/2025 Unless otherwise specified, test(s) performed at: [facility], [address] [place] [address] GLOBE MOUNTER: Ryan Singer M.D. For any questions, please call customer service at FREQUENCY:OTHER Resulting Agency Comment Specimen source: Serum Shahriar Byers MD LAB BLOOD ORDERABLES Final Result Performing Organization Address [facility] de Phone Number [facility] See order comments or contact performing lab Unknown, [place] * (ABNORMAL) [facility] (05/30/2025) Only the most recent of2 resultswithin the time period is included. % Urea Reduction 84(H) 65 - 80 % [facility] 05/30/2025 05/31/2025 10: 48 AM CDT Narrative Resulting Agency Comment Specimen source: Plasma Shahriar Byers MD LAB BLOOD ORDERABLES Final Result Performing Organization Address [facility] de Phone Number [facility] See order comments or contact performing lab Unknown, [place] * SPECIAL CHEMISTRY (05/30/2025) Pathologist [facility] Vitamin D, 25-OH, Total 45.2 30.0 - 100.0 ng/mL [facility] Comment: Please Note: Effective August 17, 2023, the methodology for this test has changed to the [facility]. 05/30/2025 05/31/2025 10: 40 AM CDT Narrative Resulting Agency Comment Specimen source: Serum Shahriar Byers MD LAB BLOOD BANK TEST O RDERABLES Final Result [facility] See order comments or contact performing lab Unknown, [place] * POST CHEMISTRY (05/30/2025) Only the most recent of2 resultswithin the time period is included. Pathologist [facility] BUN Post Dialysis 11 6 - 19 mg/dL [facility] 05/30/2025 05/31/2025 10: 48 AM CDT Narrative [facility] - 05/31/2025 Unless otherwise specified, test(s) performed at: [facility], [address] [place] [address] GLOBE MOUNTER: Ryan Singer M.D. For any questions, please call customer service at FREQUENCY:MONTHLY Resulting Agency Comment Specimen source: Plasma Shahriar Byers MD LAB BLOOD ORDERABLES Final Result [facility] See order comments or contact performing lab Unknown, [place] * [facility] Lab Results (05/30/2025) Pathologist [facility] spKt/V Gotch 2.27 [facility] PCR 52.97 [facility] eKdrt/V 1.94 [facility] WSTDKT/V 2.8 [facility] spKt/V (Daugirdas II) 2.35 [facility] eKt/V Gotch 1.94 [facility] nPCR_HD 1.20 [facility] eNPCR 1.06 [facility] eKt/V ([place]) 2.03 [facility] 05/30/2025 05/30/2025 us Eduardo Ordering Provider LAB BLOOD ORDERABLES Final Result [facility] Contact Performing lab Unknown, [place] from Last 3 Months Insurance Medicaid [place] ([id number]) [facility] Medicare
--- OUTSIDE RECORDS SUMMARY | 2025-06-28 15:46 | XMS_ITS | Encounter Summary ---
Author Organization [place] [facility] [employer], [facility] Address [address] [address] Phone Care Team Providers Care Straw Baler Name Role Phone Unavailable Primary Care Provider Unavailabl e Reason for Visit * Reason Comments Med Refill Encounter Details Date Type Department Care Team (Late st Contact Info) Description 04/14/2024 Refill [facility] [address] [facility] [address] [place] [address] Shahriar Byers MD [address] [address] Social History Tobacco Use Types [...]
--- OUTSIDE RECORDS SUMMARY | 2025-06-28 15:46 | XMS_ITS | Encounter Summary ---
Author Organization [facility] Address [address] [address] Phone Care Team Providers Care Technical Proposal Writer Name Role Phone Unavailable Primary Care Provider Unavailabl e Encounter Details Date Type Department Care Team (Late st Contact Info) Description 04/01/2023 Telephone [facility] BU[facility] [address] [address] Shawn Betancourt MD [address] [place] [address] Social History Tobacco Use Types Packs/Day Years [...]
--- OUTSIDE RECORDS SUMMARY | 2025-06-28 15:46 | XMS_ITS | Encounter Summary ---
Author Organization [place] [facility] [employer], [facility] Address [address] [facility] [address] [place] [address] Phone Care Team Providers Care Optical Manager Name Role Phone Unavailable Primary Care Provider Unavailabl e Encounter Details Date Type Department Care Team (Late st Contact Info) Description 02/15/2025 TCM in Dialysis Clinic [facility] [employer], [facility] [address] [place] [address] Saskia Peterson OBSTETRICAL NURSE [address] [facility] [address] [place] [address] Social History Tobacco Use Types Packs/Day Years Used Date Smoking Tobacco: Never Assessed Sex and Gender Information Value Date Recorded Sex Assigned at Not on file Legal Sex Male 12:34 PM EST Gender Identity Not on file Sexual Orientation Not on file documented as of this encounter Progress Notes * Saskia Peterson NP - 02/15/2025 12:00 AM CDT Patient: Vnace Sainz : 2000 Note Type: Dialysis TCM Service Date: 02/15/2025 The patient was seen for a iwer-ww-vuvv visit as part of Transitional Care Management services. 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 COMMENTS: See jennifer 1.0. Also hospitalized at [facility] this week for vol overload and [...] Reviewed and updated list in p-hub. Current [facility] Outpatient Medications amlodipine 10 mg tablet [...] by mouth every night at bedtime. Current [facility] Allergies Allergen: No Known Allergies Allergen: [...] 99.1*F Current Dialysis Vitals BP Sit: 145/84 AP/SALES TEAM MEMBER: -- Pulse: 88 CARE COORDINATION Post-discharge follow-up [...] Discussed with staff. VISIT DIAGNOSES CPT Code 23166 - High complexity, seen within 7 days [...]
--- OUTSIDE RECORDS SUMMARY | 2025-06-28 15:46 | XMS_ITS | Encounter Summary ---
Author Organization [facility] Address [address] [place] [address] Care Team Providers Care Folder Machine Operator Name Role Phone Beverly Veronica MD Primary Care Provider +1- [phone] Encounter Details Date Type Department Care Team (Late st Contact Info) Description 06/20/2025 Results Follow-Up 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 Gender Identity Not on file Sexual Orientation [...] st Contact Info) Description 12/05/2025 2:40 PM CHIEF ACCOUNTANT Office Visit [facility] [address] [phone] Beverly Veronica MD [address] [phone] documented as of this encounter Visit Diagnoses Not on filedocumented in this encounter Additional Health Concerns Assessment Noted Time PHQ-9 Depression Total Score: 3 05/29/20 25 3:06 PM CDT documented as of this encounter Care Teams Folder Machine Operator Relationship Specialty Start Date End Date Beverly Veronica MD [address] [address] PCP - General Family Practice 05/29/25 documented as of this encounter
[2025-06-28] MEDS: nitroglycerin 1 gm/inch oint Pkt 1.5 INCH TOPICAL (17:50)
[2025-06-28] MEDS: HYDROcodone-acetaminophen 5-325 mg Tablet 1 TAB PO ×2 (17:50→21:04)
--- NOTE | 2025-06-28 17:57 | PC.NURSE ---
BP persistently high, patient not Wanting IV placed, Dr abarca put in orders per mar
[2025-06-29] VITALS (11 sets, daily range): BP systolic 130–199; BP diastolic 75–125; PULSE 65–86; RESP 10–21; TEMP 36.8–37.1; O2SAT 95–99
--- NOTE | 2025-06-29 00:51 | PC.NURSE ---
Patient stating he has severe headache and is requesting sumatriptan which he takes at home as needed. contacted regarding request. Dr. Ayala ordered 60mg subcutaneous sumatriptan once.
--- NOTE | 2025-06-29 00:53 | PC.NURSE ---
Patient is continuously removing himself from the conveyor monitor to walk around the unit. This nurse and LEASE ADMINISTRATION ANALYST have placed patient back on the monitor to check his vitals.
--- NOTE | 2025-06-29 00:55 | PC.NURSE ---
Addendum entered by Yennifer Jacobsen RN 06/29/25 02:12: Spoke with Dr. Cordero regarding blood pressure continuing to be high. Order received for patient's home dose of oral hydralizine 100mg TID start now. Original Note: Patient continues to have high blood pressures. Patient asked what we are doing to control his blood pressure and was told he has received all his oral antihypertensives as ordered and the next step is a prn order of IVP hydralizine. Patient is refusing an IV to be placed. Dr. Cordero notified that patient is still having high blood pressures and that patient is refusing an IV for IV medications.
--- NOTE | 2025-06-29 01:02 | PC.NURSE ---
Patient is refusing the nitro paste, he states he is not having chest pain.
[2025-06-29 02:55] LABS: Hematocrit 27.3 % (37-53); Hemoglobin 8.80 g/dL (11.27-16.99); Mean Corpuscular HGB Conc 32.2 g/dL (30-55); Mean Corpuscular Hemoglobin 30.6 pg (27-33); Mean Corpuscular Volume 94.8 fl (82-101); Nucleated Red Blood Cells % 0 %; Platelet Count 91 10^3/cmm (157-399); Red Blood Count 2.88 10^6/uL (3.85-5.65); White Blood Count 4.20 10^3/uL (3.29-11.43)
[2025-06-29 03:13] LABS: Alanine Aminotransferase 11 U/L (0-41); Albumin Level 3.9 g/dL (3.5-5.2); Alkaline Phosphatase 68 U/L (40-130); Anion Gap 21.1 (5-19); Aspartate Amino Transferase 17 U/L (0-40); Blood Urea Nitrogen 54 mg/dL (6-20); Calcium 8.3 mg/dL (8.5-10.5); Carbon Dioxide 28 mmol/L (22-29); Chloride 97 mmol/L (98-107); Creatinine Clr Calc Pharmacy 6.9584; Globulin 2.0 g/dL (1.3-4.6); Glucose 94 mg/dL (65-115); Magnesium 2.4 mg/dL (1.7-2.3); Osmolality Calculated 307 mOsm/kg (285-295); Potassium 5.1 mmol/L (3.5-5.1); Sodium 141 mmol/L (136-145); Total Protein 5.9 g/dL (6.6-8.7)
--- NOTE | 2025-06-29 07:02 | PM.PN ---
Subjective Subjective: no new c/o Medications: Reviewed: Yes Vitals/I&O/Wt Last Vital Signs Temp 98.3 F 06/29/25 04:00 Pulse 75 06/29/25 05:44 Resp 21 H 06/29/25 04:00 BP 177/119 06/29/25 04:00 Pulse Ox 95 06/29/25 04:00 O2 Del Method Room Air 06/29/25 04:00 06/28/25 06/29/25 06/29/25 22:59 06:59 14:59 Intake Total 100 / 1550 240 / 1790 Output Total 0 / 2355 0 / 2355 Balance 100 / -805 240 / -565 Weight last 48 hrs Weight 51.846 kg Weight 52.2 kg Weight 52.299 kg Weight 50.349 kg Physical Exam Narrative: awake , alert , no distress on room air No JVD PEERLA S1S2 RRR per report Lungs clear per report Abd - soft , non tender Ext -No edema Data 06/29/25 02:27 06/29/25 02:27 A&P Assessment and plan 1. ESRD on hemodialysis: 1.ESRD:missed HD and now presented with volume overload and hyperkalemia. s/p hD yeterday and HD again today 2. Hypertension : bP elevated , UF wih hD , resume home medications 3. Hyperkalemia ,, low k diet 4. Anemia : , s/p transfusion , will order Epogen 5. metabolic acidosis , improved with HD Patient seen and examined with a nurse using audiovisual equipment. Patient consented to telehealth and to dialysis. Plan: per medicine PDMP PDMP Reviewed: Not Reviewed Attestations Medical Necessity Statement*: per [facility] Coding Level of Care Code Acute Code for Chg Fwd Diagnoses ESRD on hemodialysis N18.6; Z99.2
[2025-06-29] MEDS: NIFEdipine ER (24 hr) 30 mg Tablet 90 MG PO (08:12)
[2025-06-29] MEDS: divalproex DR 500 mg Tablet PO ×2 (08:13→17:31)
[2025-06-29] MEDS: diphenhydrAMINE 50 mg/mL SDV 1mL IVP (11:30)
[2025-06-29] MEDS: HYDROcodone-acetaminophen 5-325 mg Tablet 1 TAB PO (17:31)
--- NOTE | 2025-06-29 17:40 | PM.DCS ---
Discharge Providers Date of Admission: 06/27/25 22:47 Date of Discharge: June 29, 2025 Attending Provider at Admission: Mercedez Cordero MD Attending Provider at Discharge: Daron Ayala MD Primary Care Provider: Beverly Veronica MD Diagnoses at Discharge Discharge Diagnosis 1. ESRD on hemodialysis: Details from hospital stay: Patient is counseled regarding the need to do dialysis 3 times a week as scheduled. He is cautioned against missing dialysis which causes metabolic acidosis and toxins leading to [id number] blood pressure which risks stroke both ischemic and hemorrhagic as well as endorgan damage to his heart. Patient voices understanding 2. Hypertensive urgency: Details from hospital stay: Much improved. Continue with medications as above. Counseled patient that goal blood pressures 130/80 or lower and that weaning medications would start at a systolic of below 120 Reason for Visit Reason for Visit: Water in Lungs\Headache Brief History: Vance Sainz is a 24 year old male with medical history significant for chronic renal failure on chronic hemodialysis with medical noncompliance to medical care and noncompliance to hemodialysis. Patient had not dialyzed for the past 1 week coming in this time short of breath volume overloaded hypertensive urgency systolic over 200s and diastolic greater than 110. Patient had received 2 doses of IV 20 mg hydralazine at 2 separate times with systolic blood pressure coming down to 180s. Upon my recycling blood pressure evaluated and patient systolic went back to the 200s and another dose of hydralazine 20 mg given along with oral 50 mg of hydralazine given. Nephrology had been called had not called back patient needed an emergent hemodialysis. Patient is with much electrolyte imbalances with potassium of 6 BUN 98 and creatinine of 19.1. bicarb 18. Serum glucose 69. Patient hemoglobin is 6.6, pretty anemic and partly due to hemodilution from large volume overload. Patient with jugular venous distention of over 10 cm at 45 degrees ankle. Patient will be en route to stepdown unit. There are no EKG changes. Hospital Course Hospital Course Patient's blood pressure initially quite hard to control required IV hydralazine. He pulled 3 IVs and then refused IV started. I ordered oral labetalol 200 mg twice a day clonidine 0.2 mg 3 times daily, losartan 50 mg daily, Nitropaste 1.5 inch every 6 hours, hydralazine 100 mg 3 times daily. Patient's blood pressure improved after 2 dialysis cyst sessions and CO2 now [address] Hurtado started nifedipine XL 90 mg daily. Blood pressure now 130/84 I counseled the patient that missing dialysis causes metabolic acidosis and toxins to build up in his body which makes blood pressure hard to control, causes headache nausea blurry vision anxiety. Patient voices understanding. I encouraged him to do dialysis 3 times a week as scheduled and he is talking about doing dialysis 3 hours 3 times a week. He states that he is deafly going to go to dialysis on Thursday. I told him that he should talk to his well cleaner more and make sure that he is getting dialysis done regularly 3 days a week. Ideally the more dialysis the better to stimulate normal renal function. Physical Exam Narrative: General well-developed well-nourished male in no acute cardiopulmonary stress CV regular rate and rhythm Lungs clear to auscultation bilaterally Abdomen positive bowel tones soft nontender Calves no tenderness or pretibial edema Mentation alert oriented pleasant patient voices appreciation of counseling tonight Discharge Data Studies Completed and Pending Completed Studies During Hospitalization Category Date Time Status XR chest 1V portable [id number] Stat Exams 06/27/25 20:17 Completed Radiology Impressions Chest X-Ray 06/27/25 20:17 IMPRESSION: New hazy opacity in the left lateral lower lung, concerning for pneumonia. Laboratory Results WBC 4.20 10^3/uL (3.29-11.43) 06/29/25 02:27 RBC 2.88 10^6/uL (3.85-5.65) L 06/29/25 02:27 Hgb 8.80 g/dL (11.27-16.99) L D 06/29/25 02:27 Hct 27.3 % (37-53) L D 06/29/25 02:27 MCV 94.8 fl (82-101) D 06/29/25 02:27 MCH 30.6 pg (27-33) 06/29/25 02:27 MCHC 32.2 g/dL (30-55) 06/29/25 02:27 RDW 17.0 % (12.1-15.1) H 06/29/25 02:27 Plt Count 91 10^3/cmm (157-399) L 06/29/25 02:27 MPV 11.3 fL (7.4-10.4) H 06/29/25 02:27 Neut % (Auto) 58.4 % 06/29/25 02:27 Lymph % (Auto) 16.4 % 06/29/25 02:27 [place] % (Auto) 21.4 % 06/29/25 02:27 Eos % (Auto) 2.4 % 06/29/25 02:27 Baso % (Auto) 1.2 % 06/29/25 02:27 Neut # (Auto) 2.45 10^3/uL (1.8-7.7) 06/29/25 02:27 Lymph # (Auto) 0.7 10^3/uL (0.8-4.8) L 06/29/25 02:27 [place] # (Auto) 0.9 10^3/uL (0.2-0.9) 06/29/25 02:27 Eos # (Auto) 0.1 10^3/uL (0.0-0.8) 06/29/25 02:27 Baso # (Auto) 0.1 10^3/uL (0.0-0.1) 06/29/25 02:27 Nucleated RBC % (auto) 0 % 06/29/25 02:27 Nucleated RBCs # 0.0 /100WBC 06/29/25 02:27 Sodium 141 mmol/L (136-145) 06/29/25 02:27 Potassium 5.1 mmol/L (3.5-5.1) 06/29/25 02:27 Chloride 97 mmol/L (98-107) L 06/29/25 02:27 Carbon Dioxide 28 mmol/L (22-29) 06/29/25 02:27 Anion Gap 21.1 (5-19) H 06/29/25 02:27 BUN 54 mg/dL (6-20) H 06/29/25 02:27 Creatinine 12.1 mg/dL (0.7-1.2) H* 06/29/25 02:27 GFR Calculation 5.2 mL/min (90-130) L 06/29/25 02:27 Glucose 94 mg/dL (65-115) 06/29/25 02:27 POC Glucose 88 mg/dL (70-110) 06/28/25 06:33 Calculated Osmolality 307 mOsm/kg (285-295) H 06/29/25 02:27 Calcium 8.3 mg/dL (8.5-10.5) L 06/29/25 02:27 Phosphorus 6.3 mg/dL (2.5-4.5) H 06/29/25 02:27 Magnesium 2.4 mg/dL (1.7-2.3) H 06/29/25 02:27 Total Bilirubin 0.4 mg/dL (0.15-1.2) 06/29/25 02:27 AST 17 U/L (0-40) 06/29/25 02:27 ALT 11 U/L (0-41) 06/29/25 02:27 Alkaline Phosphatase 68 U/L (40-130) 06/29/25 02:27 NT-Pro-B Natriuret Pep > 65199 pg/mL (0-125) H 06/27/25 20:52 Total Protein 5.9 g/dL (6.6-8.7) L 06/29/25 02:27 Albumin 3.9 g/dL (3.5-5.2) 06/29/25 02:27 Globulin 2.0 g/dL (1.3-4.6) 06/29/25 02:27 Blood Type A Negative 06/27/25 22:02 Rho(D) Type Rh negative 06/27/25 22:02 Antibody Screen Negative 06/27/25 22:02 Crossmatch See Detail 06/27/25 22:02 Vitals Last Vital Signs Temp 98.6 F 06/29/25 17:03 Pulse 84 06/29/25 17:03 Resp 18 06/29/25 17:03 BP 130/84 06/29/25 17:03 Pulse Ox 97 06/29/25 15:17 O2 Del Method Room Air 06/29/25 15:17 Discharge Plan Discharge Patient Disposition: Home Condition: Stable Prescriptions: New divalproex 500 mg Tablet,Delayed Release (Dr/Ec) 500 mg PO BID Qty: 60 0RF losartan 50 mg Tablet 50 mg PO DAILY Qty: 30 0RF nifedipine 30 mg Tablet Extended Release 24hr 90 mg PO DAILY Qty: 30 0RF acetaminophen 325 mg Tablet 650 mg PO Q6H PRN (Reason: Mild/Mod Pain Or Temp >/= 101) Qty: 30 0RF clonidine HCl 0.1 mg Tablet 0.2 mg PO TID Qty: 90 0RF Continued sumatriptan 20 mg/actuation spray,non-aerosol 20 mg INTRANASAL Q12H PRN (Reason: Migraine Headache) hydralazine 100 mg tablet 100 mg PO TID labetalol 100 mg tablet 200 mg PO BID clonazepam [Klonopin] 1 mg tablet 1 mg PO BID PRN (Reason: anxiety) Qty: 10 0RF fluoxetine 10 mg capsule 10 mg PO DAILY Discontinued prednisone 5 mg tablet 5 mg PO DAILY Qty: 60 2RF amlodipine 10 mg tablet 10 mg PO DAILY losartan 25 mg tablet 25 mg PO DAILY ondansetron 4 mg tablet,disintegrating 1 mg PO Q6H PRN (Reason: Nausea And Vomiting) Discharge Order = DC NOW: Discharge Order (Routine); Ordered 06/29/25 Ordered By: Daron Ayala Referrals: Beverly Veronica MD [Primary Care Provider, [facility]] - 07/06/25 11:40 am Discharge Diet: Usual diet Patient Instructions: Nifedipine (By mouth), Clonidine (By mouth), Acetaminophen (By mouth), Losartan (By mouth), Divalproex (By mouth), Hyperkalemia (DC), Hypertensive Crisis (DC), Opioid Safety, Patient Portal & Adria Instructions Activity Restrictions/Additional Instructions: Follow a low potassium dialysis diet and restrict your fluid to 1200 cc daily continue with dialysis Thursday with your next dialysis on Thursday. When you missed dialysis your metabolic acidosis due to toxins that build up makes your blood pressure high causes headache and anxiety. Additionally blood pressure becomes uncontrollable and you are at risk for stroke or brain hemorrhage which is life-threatening. Discharge Attestations Time Spent in Discharge Care*: greater than 30 min Time Spent in Smoking Cessation: None Status at Discharge: Behavioral status at discharge: cooperative, Quality Metrics Clinical Quality Measures [ No reported AMI, CVA or VTE this stay] Coding Level of Care Code Acute Code for Chg Fwd Diagnoses ESRD on hemodialysis N18.6; Z99.2 Hypertensive urgency I16.0 Time Spent (min) 35
--- NOTE | 2025-06-29 18:34 | PC.NURSE ---
Patient discharged. Educated on new medications, changed medications, and discontinued medications. Medications sent to [facility]. New appointment, Diet instructions, and instructions to followup with dialysis. Signature form signed. Waiting in the patient discharge lounge with girlfriend.
--- OUTSIDE RECORDS SUMMARY | 2025-07-05 08:36 | XMS_ITS | Encounter Summary ---
Author Organization [facility] Address [address] [address] Phone Care Team Providers Care Supervisor Drying Name Role Phone Unavailable Primary Care Provider Unavailabl e Encounter Details Date Type Department Care Team (Late st Contact Info) Description 04/01/2023 Telephone [facility] [address] [address] Shawn Betancourt MD [address] [place] [address] Social History Tobacco Use Types Packs/Day Years [...]
--- OUTSIDE RECORDS SUMMARY | 2025-07-05 08:36 | XMS_ITS | Encounter Summary ---
Author Organization [facility], [facility] Address [address] [address] Phone Care Team Providers Care Reservations And Ticketing Agent Name Role Phone Unavailable Primary Care Provider Unavailabl e Reason for Visit * Reason Comments Med Refill Encounter Details Date Type Department Care Team (Late st Contact Info) Description 04/14/2024 Refill [facility] [address] [facility] [address] [place] [address] Shahriar Byers MD [address] [address] Social History Tobacco Use Types [...]
--- OUTSIDE RECORDS SUMMARY | 2025-07-05 08:36 | XMS_ITS | Encounter Summary ---
Author Organization [facility] Address 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 Gender Identity Not on file Sexual Orientation [...] Care Team (Late st Contact Info) Description 07/06/2025 11:40 AM CDT Office Visit [address] [phone] Beverly Veronica MD [address] [place] [phone] 12/05/2025 2:40 PM AIRCRAFT PART ASSEMBLER Office Visit [address] [phone] Beverly Veronica MD [address] [place] [phone] documented as of this encounter Visit Diagnoses Not on filedocumented in this encounter Additional Health Concerns Assessment Noted Time PHQ-9 Depression Total Score: 3 05/29/20 25 3:06 PM CDT documented as of this encounter Care Teams Scrap Handler Relationship Specialty Start Date End Date Beverly Veronica MD [address] [place] [phone] PCP - General Family Practice 05/29/25 documented as of this encounter
--- OUTSIDE RECORDS SUMMARY | 2025-07-05 08:36 | XMS_ITS | Clinical Summary ---
Author Organization [facility] Address [address] [place] [address] Phone Care Team Providers Care Diesel Service Technician Name Role Phone Unavailable Primary Care [...] Vaccines (1 of 1 - Standard series) 2001 Varicella Vaccines (1 of 2 - 13+ [...] Vaccines (1 - 1-dose 75+ series) 2075 IPV Vaccines Completed 03/18/2005, 02/16, 03/18/2001, Additional history exists HIB Vaccines Aged Out No longer eligi [...] patient's age to complete this topic Insurance [employer] MEDICARE
--- OUTSIDE RECORDS SUMMARY | 2025-07-05 08:36 | XMS_ITS | Encounter Summary ---
Author Organization [facility], [facility] Address [address] [facility] [address] [place] [address] Phone Care Team Providers Care Property Custodian Name Role Phone Unavailable Primary Care Provider Unavailabl e Encounter Details Date Type Department Care Team (Late st Contact Info) Description 08/27/2022 [facility] [address] [facility] [address] [place] [address] Kidney transplant status Social History [...]
--- OUTSIDE RECORDS SUMMARY | 2025-07-05 08:36 | XMS_ITS | Encounter Summary ---
Author Organization [facility] Address 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 * Telephone Encounter - Niki Quesada - 06/30/2025 10:31 AM CDT 06/30/2025 10:31 AM Reached out to pt per Marnie. Call will not go through. Tried several attempts. Niki * Telephone Encounter - Asya Youngblood - 06/29/2025 11:47 AM CDT Copied from [facility] #[id number]. Topic: Established Patient Care >> Jun 29, 2025 11:42 AM Asya Mckeon wrote: Is the patient established with a [facility] provider? Yes, select appropriate option in Discharge Facility SmartList Caller Name: Harjinder with [facility] Callback Number: [phone] Call Notes: Calling reporting pt will be discharging today 06/29 from [facility] hypertension urgency. Scheduled pt for first available 07/06 outside of 5 days, please call pt for earlier appt if possible, Harjinder states she will fax over records to provider Patient is High Risk Where was the patient discharged from? Hospital Is there availability to schedule the patient within 5 calendar days of discharge? No, in person appointment not available or call came after 5 days of discharge documented in this encounter Plan of Treatment Upcoming Encounters Date Type Department Care Team (Late st Contact Info) Description 07/06/2025 11:40 AM CDT Office Visit [facility] [address] [phone] Beverly Veronica MD [address] [phone] 12/05/2025 2:40 PM CORRECTION OFFICER SUPERVISOR Office Visit [facility] [address] [phone] Beverly Veronica MD [address] [phone] documented as of this encounter Visit Diagnoses Not on filedocumented in this encounter Additional Health Concerns Assessment Noted Time PHQ-9 Depression Total Score: 3 05/29/20 25 3:06 PM CDT documented as of this encounter Care Teams Mill Tender Second Operator Relationship Specialty Start Date End Date Beverly Veronica MD [address] [phone] PCP - General Family Practice 05/29/25 documented as of this encounter
--- OUTSIDE RECORDS SUMMARY | 2025-07-05 08:36 | XMS_ITS | Clinical Summary ---
Author Organization [facility] Address [address] [place] [address] Phone Care Team Providers Care Material Handler Name Role Phone Beverly Veronica MD Primary Care Provider +1- [phone] Allergies Active Allergy Reactions Criticality Noted Date [...] daily. 30 Tablet 2 5 Active vit B,P-QM-nmay-se mishel-vit D3-E (RenaPlex-D) 800 mcg-12.5 mg -2,000 [...] Encounters Date Type Department Care Team Description 07/04/2025 Orders Only [facility] [place] [address] [place] [address] Provider, Abstract 06/29/2025 Telephone [facility] [address] [phone] Beverly Veronica MD Information 06/27/2025 External Device Data STL ABSTRACTION Provider, Abstract 06/20/2025 External Device Data [facility] ABSTRACTION Provider, Abstract 06/20/2025 Results Follow-Up [facility] [address] [place] [address] Garry [place] MD MRI CERVICAL WO CONTRAST 06/15/2025 11:29 AM CDT - 06/15/2025 11:59 PM CDT Hospital Encounter [facility] [place] [address] [place] [phone] Garry [place] MD Discharge Disposition: Home or Self Care 05/30/2025 External Device Data STL ABSTRACTION Provider, Abstract 05/29/2025 2:40 PM CDT Office Visit [address] [phone] Beverly Veronica MD Abrasion, foot without infection (Primary Dx); Seizure disorder ([facility]); Severe major depressive disorder ([facility]); ESRD (end stage renal disease) ([facility]) 05/24/2025 External Device Data STL ABSTRACTION Provider, Abstract 05/16/2025 3:00 PM CDT Office Visit [facility] [address] [place] [address] Garry [place] MD Chronic neck pain (Primary Dx); Myofascial pain; DDD (degenerative disc disease), cervical; Cervical spondylosis without myelopathy; Cervical stenosis of spinal canal 05/16/2025 External Device Data STL ABSTRACTION Provider, Abstract 05/03/2025 External Device Data STL ABSTRACTION Provider, Abstract 04/27/2025 1:26 AM CDT - 04/27/2025 3:[address] [facility] Emergency Department [address] [place] [address] Demario Felipe MD Neck pain (Primary Dx); ESRD on hemodialysis ([facility]); Poorly-controlled hypertension Discharge Disposition: Home or Self Care 04/27/2025 Travel 04/26/2025 12:15 AM CDT - 04/26/2025 11:59 PM CDT Hospital Encounter [facility] Emergency Medical Services [facility] [address] [place] [address] Ambulance, [facility] Discharge Disposition: [facility] 04/25/2025 2:50 PM CDT Ancillary Procedure [facility] [place] [id number] [facility] [place] [address] [place] Closed dislocation of left elbow, initial encounter 04/25/2025 2:25 PM CDT Ancillary Procedure [facility] [address] [place] [address] [facility] [place], [place] Left hand pain; Right hand pain 04/25/2025 2:20 PM CDT Office Visit [address] [place] [address] [facility] [place], [place] Closed nondisplaced fracture of other part of [...] PNEUM OCOCCAL CONJUGATE VACCINE 20-VALENT (PCV20), POLYSACCHARIDE [id number] CONJUGATE, ADJUVANT 0.5 ML (PF) IM 12/14/2024 [...] on file Legal Sex Male 8:04 PM STABBER Gender Identity Not on file Sexual Orientation [...] Description 07/06/2025 11:40 AM CDT Office Visit [address] [address] Beverly Veronica MD [address] [place] [address] 12/05/2025 2:40 PM STABBER Office Visit [address] [address] Beverly Veronica MD [address] [place] [address] Health Maintenance Due Date Last Done Comments HEPATITIS B VACCINES (1 of 1 - Risk Dialysis 4-dose series) 05/18/2002 05/18/2001, 2000, 2000, Additional history exists Medicare Advantage ([place]) Preventative Visit/Annual Wellness Visit 10/19/2024 INFLUENZA VACCINE (#1) 2025 , 09/15/2019, 09/17/2018, Additional history exists DTAP/TDAP/TD VACCINES (7 - T d or Tdap) 07/27/2027 07/27/2017, 02/28/2005, 12/09/2001, Additional history exists HPV VACCINES Completed 09/17/2018, 06/2017, 05/19/2017 Procedures Procedure Name Priority Date/Time Associated Diagnosis Comments COMPREHENSIVE METABOLIC PANEL Routine 06/29/2025 10:20 AM CDT COMPREHENSIVE METABOLIC PANEL Routine 06/28/2025 10:21 AM CDT COMPREHENSIVE METABOLIC PANEL Routine 06/27/2025 10:20 AM CDT MRI CERVICAL WO CONTRAST Routine 06/15/2025 12:52 [...] pain from Last 3 Months Results * COMPREHENSIVE METABOLIC PANEL (06/29/2025 10:20 AM CDT) Only the most recent of4 resultswithin the time period is included. Blood us Abstract Provider CHEMISTRY ORDERABLES Final Res ult * MRI CERVICAL WO CONTRAST (06/15/2025 12:52 [...] canal or foraminal narrowing identified by MRI. Garry [place] MD MR ORDERABLES Final Resu [...] unremarkable. IMPRESSION: No acute cervical spine abnormalities. [facility] CT ORDERABLES Final R esult * CT [...] Remainder unremarkable. IMPRESSION: No acute intracranial abnormality. [facility] CT ORDERABLES Final R esult * (ABNORMAL) CBC WITH DIFFERENTIAL (04/26/2025 9:24 PM CDT) [facility] WBC 11.0 4.5 - 11.0 K/uL 04/26/2025 9:54 PM CDT [facility] RBC 3.38(L) 4.60 - 6.20 M/uL 04/26/2025 9:54 PM [facility] HEMOGLOBIN 10.3(L) 14.0 - 18.0 g/dL 04/26/2025 9:54 PM [facility] HEMATOCRIT 33.3(L) 41.0 - 53.0 % 04/26/2025 9:54 PM [facility] MCV 98.5 84.0 - 103.0 fL 04/26/2025 9:54 PM [facility] MCH 30.5 27.0 - 34.0 pg 04/26/2025 9:54 PM [facility] MCHC 30.9 30.0 - 35.0 g/dL 04/26/2025 9:54 PM [facility] PLATELETS 213 140 - 440 K/uL 04/26/2025 9:54 PM [facility] MPV 10.9 8.9 - 12.8 fL 04/26/2025 9:54 PM [facility] RDW 17.2(H) 11.0 - 14.5 % 04/26/2025 9:54 PM [facility] RDW-STDEV 60.4(H) 37.0 - 54.0 fL 04/26/2025 9:54 PM [facility] NEUTROPHILS 92(H) 42 - 75 % 04/26/2025 9:54 PM [facility] LYMPHOCYTES 4(L) 24 - 44 % 04/26/2025 9:54 PM [facility] MONOCYTES 2 2 - 10 % 04/26/2025 9:54 PM [facility] EOSINOPHILS 1 0 - 7 % 04/26/2025 9:54 PM [facility] BASOPHILS 1 0 - 1 % 04/26/2025 9:54 PM [facility] IMMATURE GRANULOCYTES 1 0 - 2 % 04/26/2025 9:54 PM [facility] NEUTROPHIL ABSOLUTE 10.16(H) 2.00 - 8.00 K/uL 04/26/2025 9:54 PM CDT [facility] LYMPHOCYTE ABSOLUTE 0.47(L) 1.20 - 4.00 K/uL 04/26/2025 9:54 PM CDT [facility] MONOCYTE ABSOLUTE 0.22 0.10 - 0.60 K/uL 04/26/2025 9:54 PM CDT [facility] EOSINOPHIL ABSOLUTE 0.06 0.00 - 0.70 K/uL 04/26/2025 9:54 PM CDT [facility] BASOPHILS ABSOLUTE 0.05 0.00 - 0.20 K/uL 04/26/2025 9:54 PM CDT [facility] IMMATURE GRANULOCYTES ABSOLUTE 0.07 0.00 - 0.10 K/uL 04/26/2025 9:54 PM CDT [facility] SMEAR REVIEWED: NN - No Action Needed 04/26/2025 9:54 PM CDT [facility] Blood Venipuncture / Unknown 04/26/2025 9:24 PM CDT 04/26/2025 9:39 PM CDT Constance Lim REAL ESTATE LOAN OFFICER HEMATOLOGY ORDERABLES F inal Result [facility] CLIA # [id number] [facility] [address] * INSERT PERIPHERAL IV (04/26/2025 9:20 PM CDT) Narrative Nahum Matos RN - 04/26/2025 9:20 PM CDT Nahum Matos RN 04/26/2025 9:39 PM VASCULAR ACCESS TEAM Peripheral IV insertion with lab collection PATIENT NAME: Vance Sainz DATE OF : 2000 CSN: [id number] DATE: 04/26/2025 Room: Room/bed info not found [...] Patient tolerated well. Nahum Matos RN Constance Makir REAL ESTATE LOAN OFFICER IV THERAPY ORDERABLES F inal Result * XR ELBOW 3+ VW LEFT (04/25/2025 2:57 PM CDT) Anatomical Region Laterality Modality Upper Extremity Computed Radiogr aphy Narrative 04/26/2025 8:52 AM CDT X-rays obtained of the left elbow on April 25, 2025 independently reviewed which does not demonstrate any acute osseous abnormalities, fractures, or dislocations noted. [employer] DIAGNOSTIC IMAGING ORDERABLES Fi nal Result * [...] chronic and healed fifth metacarpal neck fracture. [employer] [facility]AGNO[facility] ORDERABLES Fi nal Result from Last 3 Months Insurance [place] [facility] DUAL COMPLETE HMO DSNP [facility] [id number] RX [employer] RX Member Subscriber Plan / Payer (Ef fective 2025-Present) Name:Vance Sainz Relation to Subscriber:Self Name:Vance Sainz Subscriber ID:Not on file Payer ID:Not on file Group ID:[id number] Type:RX Medicare Part D Address: [place] Advance Directives For more information, please contact: [phone] * Full Code (Latest Code Status on File) Date Activated Date Inactivated Comments 01/31/2025 2:27 PM 02/03/2025 8:44 PM Care Teams Material Handler Relationship Specialty Start Date End Date Beverly Veronica MD [address] [place] [phone] PCP - General Family Practice 05/29/25
--- OUTSIDE RECORDS SUMMARY | 2025-07-05 08:36 | XMS_ITS | Encounter Summary ---
Author Organization [facility] Address [address] [place] [address] Care Team Providers Care Veterinary Radiologist Name Role Phone Beverly Veronica MD Primary Care Provider +1- [phone] Encounter Details Date Type Department Care Team (Late Contact Info) Description 06/27/2025 External Device Data [...] on file Legal Sex Male 8:04 PM ASSISTANT FINANCE DIRECTOR Gender Identity Not on file Sexual Orientation Not on file documented as of this encounter Plan of Treatment Upcoming Encounters Date Type Department Care Team ([facility] Contact Info) Description 07/06/2025 11:40 AM CDT Office Visit [address] [phone] Beverly Veronica MD [address] [place] [phone] 12/05/2025 2:40 PM ASSISTANT FINANCE DIRECTOR Office Visit [facility] [address] [address] Beverly Veronica MD [address] [address] documented as of this encounter Visit Diagnoses Not on filedocumented in this encounter Additional Health Concerns Assessment Noted Time PHQ-9 Depression Total Score: 3 05/29/20 3:06 PM CDT documented as of this encounter Care Teams Veterinary Radiologist Relationship Specialty Start Date End Date Beverly Veronica MD [address] [place] [address] PCP - General Family Practice 05/29/25 documented as of this encounter
--- OUTSIDE RECORDS SUMMARY | 2025-07-05 08:36 | XMS_ITS | Encounter Summary ---
Author Organization [facility], [facility] Address [address] [place] [address] Phone Care Team Providers Care Local Driver Name Role Phone Unavailable Primary Care Provider Unavailabl e Encounter Details Date Type Department Care Team (Late st Contact Info) Description 02/15/2025 TCM in Dialysis Clinic [facility] [address] [place] [address] Saskia Peterson HUMAN RESOURCES DESIGNATE [address] [facility] [address] [place] [address] Social History Tobacco Use Types [...] 02/15/2025 The patient was seen for a afgj-bh-gwlj visit as part of Transitional Care Management services. 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 Schedule: Shift: 2 INTERACTIVE CONTACT Contact with the patient or caregiver was made or attempted within 2 business days of discharge - details in the medical record. COMMENTS: See jennifer 1.0. Also hospitalized at [facility] this week for vol overload and [...] Reviewed and updated list in p-hub. Current [facility] Outpatient Medications amlodipine 10 mg tablet [...] by mouth every night at bedtime. Current [facility] Allergies Allergen: No Known Allergies Allergen: [...] 99.1*F Current Dialysis Vitals BP Sit: 145/84 AP/MANAGER TRUST: -- Pulse: 88 CARE COORDINATION Post-discharge follow-up [...] Discussed with staff. VISIT DIAGNOSES CPT Code 97085 - High complexity, seen within 7 days [...]
--- OUTSIDE RECORDS SUMMARY | 2025-07-05 08:36 | XMS_ITS | Clinical Summary ---
Author Organization [facility], [facility] Address [address] [place] [address] Phone Care Team Providers Care Hris Specialist Name Role Phone Unavailable Primary Care Provider Unavailabl e Encounters Date Type Department Care Team Description 06/20/2025 Orders Only [facility], [facility] [address] [place] [address] Shahriar Byesr MD 06/14/2025 Treatment [facility], [facility] [address] [place] [address] Shahriar Byers MD End stage renal disease; Dependence on renal dialysis 06/12/2025 Orders Only [facility] [address] [place] [address] Shahriar Byers MD 06/05/2025 Orders Only [facility], [facility] [address] [place] [address] Shahriar Byers MD 05/30/2025 Orders Only [facility], [facility] [address] [place] [address] Shahriar Byers MD 05/26/2025 Treatment [facility], [facility] [address] [place] [address] Saskia Navas NP End stage renal disease; Dependence on renal dialysis 05/25/2025 Treatment [facility], [facility] [address] [place] [address] Saskia Navas NP End stage renal disease; Dependence on renal dialysis 05/23/2025 Orders Only [facility], [facility] [address] [place] [address] Shahriar Byers MD 05/15/2025 Orders Only [facility], [facility] [address] [place] [address] Shahriar Byers MD 05/10/2025 Orders Only [facility], [facility] [address] [place] [address] Shahriar Byers MD 05/10/[address] [place] [address], [facility] [address] [place] [address] Shahriar Byers MD End stage renal disease; Dependence on renal dialysis 05/05/2025 [facility], [facility] [address] [place] [address] Saskia Navas, TINO End stage renal disease; Dependence on renal dialysis 05/03/2025 Refill [facility], [facility] [address] [place] [address] Jasmin Carson MA 05/01/2025 Orders Only [facility], [facility] [address] [place] [address] Shahriar Byers MD 04/28/2025 [facility], [facility] [address] [place] [address] Saskia Navas, TINO End stage renal disease; Dependence on renal dialysis 04/24/2025 Orders Only [facility], [facility] [address] [place] [address] Shahriar Byers MD 04/19/2025 [facility], [facility] [address] [place] [phone] Saskia Navas NP End stage renal disease; Dependence on renal dialysis 04/18/2025 Orders Only [facility] [address] [place] [phone] Shahriar Byers MD from Last 3 Months [...] included. Hemoglobin 8.4(L) 14.0 - 18.0 g/dL [facility] Hemoglobin x 3 25.2(L) 42.0 - 54.0 % [facility] 06/20/2025 06/21/2025 3:0 4 PM CDT Narrative [facility] - 06/21/2025 Unless otherwise specified, test(s) performed at: [facility], [address] [place] [address] HAT SIZER: Ryan Singer M.D. For any questions, please call customer service at FREQUENCY:OTHER Resulting Agency Comment Specimen source: Blood Shahriar Byers MD LAB BLOOD ORDERABLES Final Result [facility] See order comments or contact performing lab [...] 06/14/2025 Unless otherwise specified, test(s) performed at: [facility], [address] [place] [address] HAT SIZER: Ryan Singer M.D. For any questions, please call customer service at FREQUENCY:OTHER Resulting Agency Comment Specimen source: Serum Shahriar Byers MD LAB BLOOD ORDERABLES Final Result Performing Organization Address City/[facility]/ZIP Co de Phone Number [facility] [employer] [employer] See order comments or contact performing lab Unknown, [place] * (ABNORMAL) HD [facility]INETICS (05/30/2025) Only the most recent of2 resultswithin the time period is included. Pathologist [facility] % Urea Reduction 84(H) 65 - 80 % [facility] 05/30/2025 05/31/2025 10: 48 AM CDT Narrative Resulting Agency Comment Specimen source: Plasma Shahriar Byers MD LAB BLOOD ORDERABLES Final Result [facility] [employer] [facility] See order comments or contact performing lab Unknown, [place] * SPECIAL CHEMISTRY (05/30/2025) Pathologist [facility] Vitamin D, 25-OH, Total 45.2 30.0 - 100.0 ng/mL [facility] Comment: Please Note: Effective August 17, 2023, the methodology for this test has changed to the [facility]. 05/30/2025 05/31/2025 10: 40 AM CDT Narrative Resulting Agency Comment Specimen source: Serum Shahriar Byers MD LAB BLOOD BANK TEST O RDERABLES Final Result [facility] [employer] [facility] See order comments or contact performing lab Unknown, [place] * POST CHEMISTRY (05/30/2025) Only the most recent of2 resultswithin the time period is included. BUN Post Dialysis 11 6 - 19 mg/dL [facility] 05/30/2025 05/31/2025 10: 48 AM CDT Narrative [facility] - 05/31/2025 Unless otherwise specified, test(s) performed at: [facility], [address] [place] [address] HAT SIZER: Ryan Singer M.D. For any questions, please call customer service at FREQUENCY:MONTHLY Resulting Agency Comment Specimen source: Plasma Shahriar Byers MD LAB BLOOD ORDERABLES Final Result Performing Organization Address City/[facility] Co de Phone Number [facility] [employer] See order comments or contact performing lab Unknown, [place] * [facility] Lab Results (05/30/2025) spKt/V Gotch 2.27 [facility] PCR 52.97 [facility] eKdrt/V 1.94 [facility] WSTDKT/V 2.8 [facility] spKt/V (Daugirdas II) 2.35 [facility] eKt/V Gotch 1.94 [facility] nPCR_HD 1.20 [facility] eNPCR 1.06 [facility] eKt/V (Tattersall) 2.03 [facility] 05/30/2025 05/30/2025 [place] Ordering Provider LAB BLOOD ORDERABLES Final Result [facility] Contact Performing lab Unknown, [place] from Last 3 Months Insurance Medicaid [place] (SKMO0) [facility] Medicare
--- OUTSIDE RECORDS SUMMARY | 2025-07-05 08:36 | XMS_ITS | Encounter Summary ---
Author Organization [facility] Address [address] [place] [address] Care Team Providers Care Office Clerk Routine Name Role Phone Beverly Veronica MD Primary Care Provider +1- [phone] Encounter Details Date Type Department Care Team ([facility] Contact Info) Description 07/04/2025 Orders Only [facility] [place] [address] [place] [address] Provider, Abstract NO ADDRESS ON FILE Social [...] on file Legal Sex Male 8:04 PM HAIR DRYER Gender Identity Not on file Sexual Orientation Not on file documented as of this encounter Plan of Treatment Upcoming Encounters Date Type Department Care Team ([facility] Contact Info) Description 07/06/2025 11:40 AM CDT Office Visit [facility] [place] [address] [address] Beverly Veronica MD [address] [address] 12/05/2025 2:40 PM HAIR DRYER Office Visit [facility] [address] [phone] Beverly Veronica MD [address] [address] documented as of this encounter Procedures Procedure Name Priority Date/Time Associated Diagnosis Comments COMPREHENSIVE METABOLIC PANEL Routine 06/29/2025 10:20 AM CDT COMPREHENSIVE METABOLIC PANEL Routine 06/28/2025 10:21 AM CDT COMPREHENSIVE METABOLIC PANEL Routine 06/27/2025 10:20 AM CDT documented in this encounter Results * COMPREHENSIVE METABOLIC PANEL (06/29/2025 10:20 AM CDT) Blood us Abstract Provider CHEMISTRY ORDERABLES Final Res ult * COMPREHENSIVE METABOLIC PANEL (06/28/2025 10:21 AM CDT) Blood us Abstract Provider CHEMISTRY ORDERABLES Final Res ult * COMPREHENSIVE METABOLIC PANEL (06/27/2025 10:20 AM CDT) Blood us Abstract Provider CHEMISTRY ORDERABLES Final Res ult documented in this encounter Visit Diagnoses Not on filedocumented in this encounter Additional Health Concerns Assessment Noted Time PHQ-9 Depression Total Score: 3 05/29/20 25 3:06 PM CDT documented as of this encounter Care Teams Office Clerk Routine Relationship Specialty Start Date End Date Beverly Veronica MD [address] [address] PCP - General Family Practice 05/29/25 documented as of this encounter
== END 2025-06-29 18:36 | disposition home or self-care (01) ==
LOC: ER 23:09 → CSU 06-28 01:43
PROVIDERS: Admitting Provider Internal Medicine; Emergency Provider Emergency Medicine; PCP Family Medicine; Visit Provider Internal Medicine
DX: E87.79 Other fluid overload (principal); N18.6 End stage renal disease; I12.0 Hypertensive chronic kidney disease with stage 5 chronic kidney disease or end stage renal disease; T86.11 Kidney transplant rejection; E87.20 Acidosis, unspecified; Z99.2 Dependence on renal dialysis; Z91.158 Patient's noncompliance with renal dialysis for other reason; E87.5 Hyperkalemia; D63.1 Anemia in chronic kidney disease; F15.10 Other stimulant abuse, uncomplicated; F32.A Depression, unspecified; I16.0 Hypertensive urgency; Z53.20 Procedure and treatment not carried out because of patient's decision for unspecified reasons; Z91.148 Patient's other noncompliance with medication regimen for other reason; I49.8 Other specified cardiac arrhythmias; R94.31 Abnormal electrocardiogram [ECG] [EKG]; D49.9 Neoplasm of unspecified behavior of unspecified site; Z79.52 Long term (current) use of systemic steroids; F12.90 Cannabis use, unspecified, uncomplicated; F17.220 Nicotine dependence, chewing tobacco, uncomplicated; F17.290 Nicotine dependence, other tobacco product, uncomplicated; X58.XXXA Exposure to other specified factors, initial encounter
CPT/HCPCS: 36415; 36416; 36430; 71045; 80053; 82962; 83735; 83880; 84100; 85014; 85018; 85025; 86850; 86900; 86920; 90935; 93005; 96372; 96374; 96375; 96376; 99291; G0378; J0360; J1200; J1644; J1815; J2060; J2270; J3030; J3490; J7799; J9999; P9016; P9040; Q3014

== ENCOUNTER 2025-07-08 21:02 | Emergency (ER) | payer OTHER, MEDICAID, SELFPAY ==
[2025-07-08 21:08] VITALS: BP 175/123; PULSE 76; RESP 20; TEMP 36.6; O2SAT 100; BMI 18.8
--- OUTSIDE RECORDS SUMMARY | 2025-07-08 21:09 | XMS_ITS | Encounter Summary ---
Author Organization [facility], [facility] Address [address] [facility] [address] [place] [address] Phone Care Team Providers Care Chassis Engineer Name Role Phone Unavailable Primary Care Provider Unavailabl e Encounter Details Date Type Department Care Team (Late st Contact Info) Description 08/27/2022 Orders Only [facility] [address] [facility] [address] [place] [address] Kidney transplant status Social History [...]
--- OUTSIDE RECORDS SUMMARY | 2025-07-08 21:09 | XMS_ITS | Encounter Summary ---
Author Organization [facility], [facility] Address [address] [address] Phone Care Team Providers Care Retail General Manager Name Role Phone Unavailable Primary Care Provider Unavailabl e Reason for Visit * Reason Comments Med Refill Encounter Details Date Type Department Care Team (Late st Contact Info) Description 04/14/2024 Refill [facility] [address] [facility] [address] [place] [address] Shahriar Byers MD [address] [address] Social History Tobacco Use Types [...]
--- OUTSIDE RECORDS SUMMARY | 2025-07-08 21:09 | XMS_ITS | Encounter Summary ---
Author Organization [facility] Address [address] [place] [address] Care Team Providers Care Soapstoner Name Role Phone Beverly Veronica MD Primary Care Provider +1- [phone] Reason for Visit * Reason Comments Information Encounter Details Date Type Department Care Team ([facility] st Contact Info) Description 06/29/[address] [address] Beverly Veronica MD [address] [place] [phone] Information Social History Tobacco Use Types Packs/Day [...] on file Legal Sex Male 8:04 PM AB INITIO ETL DEVELOPER Gender Identity Not on file Sexual Orientation [...] - 06/29/2025 11:47 AM CDT Copied from [facility] #[id number]. Topic: Established Patient Care >> Jun 29, 2025 11:42 AM Asya Mckeon wrote: Is the patient established with a [facility] provider? Yes, select appropriate option in Discharge Facility SmartList Caller Name: Harjinder with [facility] Callback Number: [phone] Call Notes: Calling reporting pt will be discharging today 06/29 from [facility] hypertension urgency. Scheduled pt for first [...] st Contact Info) Description 12/05/2025 2:40 PM AB INITIO ETL DEVELOPER Office Visit [facility] [address] [address] Beverly Veronica MD [address] [address] documented as of this encounter Visit Diagnoses Not on filedocumented in this encounter Additional Health Concerns Assessment Noted Time PHQ-9 Depression Total Score: 3 05/29/20 25 3:06 PM CDT documented as of this encounter Care Teams Soapstoner Relationship Specialty Start Date End Date Beverly Veronica MD [address] [place] [phone] PCP - General Family Practice 05/29/25 documented as of this encounter
--- OUTSIDE RECORDS SUMMARY | 2025-07-08 21:09 | XMS_ITS | Encounter Summary ---
Author Organization [employer] [facility], [facility] Address [address] [facility] [address] [place] [address] Phone Care Team Providers Care Supervisor Byproducts Name Role Phone Unavailable Primary Care Provider Unavailabl e Encounter Details Date Type Department Care Team (Late st Contact Info) Description 02/15/2025 TCM in Dialysis Clinic [facility] [employer], [facility] [address] [place] [address] Saskia Peterson BUILDING CUSTODIAN [address] [facility] [address] [place] [address] Social History Tobacco Use Types [...] 02/15/2025 The patient was seen for a grbp-bj-jdhx visit as part of Transitional Care Management services. 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 COMMENTS: See jennifer 1.0. Also hospitalized at [facility] this week for vol overload and [...] Reviewed and updated list in p-hub. Current [facility] Outpatient Medications amlodipine 10 mg [...] by mouth every night at bedtime. Current [facility] Allergies Allergen: No Known Allergies [...] 99.1*F Current Dialysis Vitals BP Sit: 145/84 AP/ENGINEERING CLERK: -- Pulse: 88 CARE COORDINATION Post-discharge follow-up [...] Discussed with staff. VISIT DIAGNOSES CPT Code 53851 - High complexity, seen within 7 days [...]
--- OUTSIDE RECORDS SUMMARY | 2025-07-08 21:09 | XMS_ITS | Encounter Summary ---
Author Organization [facility] [employer], [facility] Address [address] [place] [address] Phone Care Team Providers Care Avionics Installer Name Role Phone Unavailable Primary Care Provider Unavailabl e Encounter Details Date Type Department Care Team (Late st Contact Info) Description 07/06/2025 Orders Only [facility] [place] [facility] [address] [place] [address] Shahriar Byers MD [address] [facility] [address] [place] [address] Social History Tobacco Use Types [...] Date/Time Associated Diagnosis Comments HD KINETICS Routine 07/06/2025 POST CHEMISTRY Routine 07/06/2025 CHEMISTRY Routine 07/06/2025 documented in this encounter Results * (ABNORMAL) HD KINETICS (07/06/2025) % Urea Reduction 44(L) 65 - 80 % [id number] Labs 07/06/2025 07/08/2025 11: 29 AM CDT Narrative [facility] - 07/08/2025 Unless otherwise specified, test(s) performed at: [facility], [address] [place], [place] [id number] STRE[address] CONTRACTOR: Ryan Singer M.D. For any questions, please call customer service at FREQUENCY:OTHER Resulting Agency Comment Specimen source: Plasma Shahriar Byers MD LAB BLOOD ORDERABLES Final Result Performing Organization Address [facility] Co de Phone Number [facility] See order comments or contact performing lab Unknown, [place] * (ABNORMAL) [facility] Chemistry (07/06/2025) BUN 25(H) 6 - 19 mg/dL [facility] 07/06/2025 07/08/2025 10: 50 AM CDT Narrative [facility] - 07/08/2025 Unless otherwise specified, test(s) performed at: [facility], [address] [place] [address] CONTRACTOR: Ryan Singer M.D. For any questions, please call customer service at FREQUENCY:OTHER Resulting Agency Comment Specimen source: Serum Shahriar Byers MD LAB BLOOD ORDERABLES Final Result Performing Organization Address [facility] Co de Phone Number [facility] See order comments or contact performing lab Unknown, [place] * POST CHEMISTRY (07/06/2025) BUN Post Dialysis 14 6 - 19 mg/dL [facility] 07/06/2025 07/08/2025 11: 29 AM CDT Narrative [facility] - 07/08/2025 Unless otherwise specified, test(s) performed at: [facility] n, [address] [place] [address] CONTRACTOR: Ryan Singer M.D. For any questions, please call customer service at FREQUENCY:OTHER Resulting Agency Comment Specimen source: Plasma Shahriar Byers MD LAB BLOOD ORDERABLES Final Result Performing Organization Address City/[facility]/ZIP Co de Phone Number [facility] See order comments or contact performing lab Unknown, [place] documented in this encounter Visit Diagnoses Not on filedocumented in this encounter
--- OUTSIDE RECORDS SUMMARY | 2025-07-08 21:09 | XMS_ITS | Clinical Summary ---
Author Organization [facility] Address [address] [place] [address] Phone Care Team Providers Care Stubber Name Role Phone Beverly Veronica MD Primary Care Provider +1- [phone] Allergies Active Allergy Reactions Criticality Noted Date [...] daily. 30 Tablet 2 5 Active vit B,U-RT-uger-se mishel-vit D3-E (RenaPlex-D) 800 mcg-12.5 mg -2,000 [...] Department Care Team Description 07/04/2025 Orders Only [facility] Health Information Management [place] [address] [place] [address] Provider, Abstract 06/29/2025 Telephone [facility] [address] [phone] Beverly Veronica MD Information 06/27/2025 External Device Data STL ABSTRACTION Provider, Abstract 06/20/2025 External Device Data STL ABSTRACTION Provider, Abstract 06/20/2025 Results Follow-Up [facility] Pain Management [address] [place] [address] Garry Randolph MD MRI CERVICAL WO CONTRAST 06/15/2025 11:29 AM CDT - 06/15/2025 11:59 PM CDT Hospital Encounter [facility] MRI [place] [address] [place] [phone] Garry Randolph MD Discharge Disposition: Home or Self Care 05/30/2025 External Device Data STL ABSTRACTION Provider, Abstract 05/29/2025 2:40 PM CDT Office Visit [address] [phone] Beverly Veronica MD Abrasion, foot without infection (Primary Dx); Seizure disorder ([facility]); Severe major depressive disorder ([facility]); ESRD (end stage renal disease) ([facility]) 05/24/2025 External Device Data STL ABSTRACTION Provider, Abstract 05/16/2025 3:00 PM CDT Office Visit [facility] Pain Management [address] [place] [address] Garry Randolph MD Chronic neck pain (Primary Dx); Myofascial pain; DDD (degenerative disc disease), cervical; Cervical spondylosis without myelopathy; Cervical stenosis of spinal canal 05/16/2025 External Device Data STL ABSTRACTION Provider, Abstract 05/03/2025 External Device Data STL ABSTRACTION Provider, Abstract 04/27/2025 1:26 AM CDT - 04/27/2025 3:[address] [facility] Emergency Department [address] [place] [place] [address] Demario Felipe MD Neck pain (Primary Dx); ESRD on hemodialysis ([facility]); Poorly-controlled hypertension Discharge Disposition: Home or Self Care 04/27/2025 Travel 04/26/2025 12:15 AM CDT - 04/26/2025 11:59 PM CDT Hospital Encounter [facility] Emergency Medical Services [facility] [address] [place] [address] Ambulance, [facility] Discharge Disposition: [facility] 04/25/2025 2:50 PM CDT Ancillary Procedure [facility] [place] [address] [place] [address] Shahriar Mckeon [place] Closed dislocation of left elbow, initial encounter 04/25/2025 2:25 PM CDT Ancillary Procedure [facility] [address] [place] [address] [facility] [place], [place] Left hand pain; Right hand pain 04/25/2025 2:20 PM CDT Office Visit [address] [place] [address] [facility] [place], [place] Closed nondisplaced fracture of other part of [...] PNEUM OCOCCAL CONJUGATE VACCINE 20-VALENT (PCV20), POLYSACCHARIDE MSS706 CONJUGATE, ADJUVANT 0.5 ML (PF) IM 12/14/2024 [...] on file 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 Constance Lim VISITOR SERVICES ASSOCIATE CT ORDERABLES Final R esult * CT [...] IMPRESSION: No acute intracranial abnormality. Constance Joseph McTeefaith VISITOR SERVICES ASSOCIATE CT ORDERABLES Final R esult * (ABNORMAL) CBC WITH DIFFERENTIAL (04/26/2025 9:24 PM CDT) [facility] WBC 11.0 4.5 - 11.0 K/uL 04/26/2025 9:54 PM CDT [facility] LABORATORY [facility] RBC 3.38(L) 4.60 - 6.20 M/uL 04/26/2025 9:54 PM CDT [facility] LABORATORY [facility] HEMOGLOBIN 10.3(L) 14.0 - 18.0 g/dL 04/26/2025 9:54 PM CDT [facility] LABORATORY [facility] HEMATOCRIT 33.3(L) 41.0 - 53.0 % 04/26/2025 9:54 PM T [facility] MCV 98.5 84.0 - 103.0 fL 04/26/2025 9:54 PM CDT [facility] MCH 30.5 27.0 - 34.0 pg 04/26/2025 9:54 PM [facility] MCHC 30.9 30.0 - 35.0 g/dL 04/26/2025 9:54 PM [facility] PLATELETS 213 140 - 440 K/uL 04/26/2025 9:54 PM [facility] MPV 10.9 8.9 - 12.8 fL 04/26/2025 9:54 PM [facility] RDW 17.2(H) 11.0 - 14.5 % 04/26/2025 9:54 PM [facility] RDW-STDEV 60.4(H) 37.0 - 54.0 fL 04/26/2025 9:54 PM [facility] NEUTROPHILS 92(H) 42 - 75 % 04/26/2025 9:54 PM [facility] LYMPHOCYTES 4(L) 24 - 44 % 04/26/2025 9:54 PM [facility] MONOCYTES 2 2 - 10 % 04/26/2025 9:54 PM [facility] EOSINOPHILS 1 0 - 7 % 04/26/2025 9:54 PM [facility] BASOPHILS 1 0 - 1 % 04/26/2025 9:54 PM [facility] IMMATURE GRANULOCYTES 1 0 - 2 % 04/26/2025 9:54 PM [facility] NEUTROPHIL ABSOLUTE 10.16(H) 2.00 - 8.00 K/uL 04/26/2025 9:54 PM [facility] LYMPHOCYTE ABSOLUTE 0.47(L) 1.20 - 4.00 K/uL 04/26/2025 9:54 [facility] 0.22 0.10 - 0.60 K/uL 04/26/2025 9:54 PM CDT [facility] EOSINOPHIL ABSOLUTE 0.06 0.00 - 0.70 K/uL 04/26/2025 9:54 PM CDT [facility] BASOPHILS ABSOLUTE 0.05 0.00 - 0.20 K/uL 04/26/2025 9:54 PM CDT [facility] IMMATURE GRANULOCYTES ABSOLUTE 0.07 0.00 - 0.10 K/uL 04/26/2025 9:54 PM CDT [facility] SMEAR REVIEWED: NN - No Action Needed 04/26/2025 9:54 PM CDT [facility] Blood Venipuncture / Unknown 04/26/2025 9:24 PM CDT 04/26/2025 9:39 PM CDT Constance Lim VISITOR SERVICES ASSOCIATE HEMATOLOGY ORDERABLES F inal Result [facility] CLIA # [id number] [address] [place] [address] * INSERT PERIPHERAL IV (04/26/2025 9:20 PM CDT) Narrative Nahum Matos RN - 04/26/2025 9:20 PM CDT Nahum Matos RN 04/26/2025 9:39 PM VASCULAR ACCESS TEAM Peripheral IV insertion with lab collection PATIENT NAME: Vance Sainz DATE OF : 2000 CSN: [id number] DATE: 04/26/2025 Room: Room/bed info not found [...] in EMR flowsheet Patient tolerated well. Nahum Matos, EUGENIA Constance Makir VISITOR SERVICES ASSOCIATE IV THERAPY ORDERABLES F inal Result * XR ELBOW 3+ VW LEFT (04/25/2025 2:57 PM CDT) Anatomical Region Laterality Modality Upper Extremity Computed Radiogr aphy Narrative 04/26/2025 8:52 AM CDT X-rays obtained of the left elbow on April 25, 2025 independently reviewed which does not demonstrate any acute osseous abnormalities, fractures, or dislocations noted. Shahriar [employer] PA DIAGNOSTIC IMAGING ORDERABLES Fi nal Result [...] chronic and healed fifth metacarpal neck fracture. Foradian PA DIAGNOSTIC IMAGING ORDERABLES Fi nal Result from Last 3 Months Insurance [place] [facility] [id number] RX [employer] RX Member Subscriber Plan / Payer (Ef fective 2025-Present) Name:Vance Sainz Relation to Subscriber:Self Name:Vance Sainz Subscriber ID:Not on file Payer ID:Not on file Group ID:[id number] Type:RX Medicare Part D Address: [place] [place] Advance Directives For more information, please contact: [phone] * Full Code (Latest Code Status on File) Date Activated Date Inactivated Comments 01/31/2025 2:27 PM 02/03/2025 8:44 PM Care Teams Stubber Relationship Specialty Start Date End Date Beverly Veronica MD [address] [place] [phone] PCP - General Family Practice 05/29/25
--- OUTSIDE RECORDS SUMMARY | 2025-07-08 21:09 | XMS_ITS | Clinical Summary ---
Author Organization [employer] Address [address] [place] [address] Phone Care Team Providers Care Roll Or Tape Edge Machine Operator Name Role Phone Unavailable Primary [...] patient's age to complete this topic Insurance [employer] MEDICARE
--- OUTSIDE RECORDS SUMMARY | 2025-07-08 21:09 | XMS_ITS | Encounter Summary ---
Author Organization [facility] Address 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 Gender Identity Not on file Sexual Orientation Not on file documented as of this encounter Plan of Treatment Upcoming Encounters Date Type Department Care Team ([facility] Contact Info) Description 12/05/2025 2:40 PM PHOTOGRAPHIC PLATE MAKER Office Visit [facility] Family Medicine [place] [address] [phone] Beverly Veronica MD [address] [phone] documented as of this encounter Procedures Procedure [...] documented as of this encounter Care Teams Check Cashier Relationship Specialty Start Date End Date Beverly Veronica MD [address] [address] PCP - General Family Practice 05/29/25 documented as of this encounter
--- OUTSIDE RECORDS SUMMARY | 2025-07-08 21:09 | XMS_ITS | Encounter Summary ---
Author Organization [facility] Address [address] [address] Phone Care Team Providers Care Food Safety Officer Name Role Phone Unavailable Primary Care Provider Unavailabl e Encounter Details Date Type Department Care Team (Late st Contact Info) Description 04/01/2023 Telephone [facility] [address] [address] Shawn Betancourt MD [address] [place] [address] Social History Tobacco Use Types Packs/Day Years [...]
--- OUTSIDE RECORDS SUMMARY | 2025-07-08 21:09 | XMS_ITS | Encounter Summary ---
Author Organization [facility] [employer] [facility], [facility] Address [address] [place] [address] Phone Care Team Providers Care Senior Mechanical Engineer Name Role Phone Unavailable Primary Care Provider Unavailabl e Encounter Details Date Type Department Care Team (Late st Contact Info) Description 07/06/2025 Treatment [facility] [address] [place] [address] Saskia Navas NP [address] [place] [address] End stage renal disease; Dependence [...] Dialysis Note - Saskia Navas NP - 07/06/2025 12:00 AM CDT Patient: Vance Sainz, 2000, 24y, M Dialysis Location: [facility] Attending Rubber Compounder Supervisor: Shahriar Byers Service Date: 07/06/2025 Service Provider: Saskia Navas NP I met face to face with the patient today. 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 Last treatment here prior to yesterday was on 06/20. Has gone to OSH for other treatments when he felt needed. Requested RUBA and iron yesterday, was told would have to wait until labs back to determine dosing. BP high. We went through med list, he reports ER told him to stop labetolol. Pulse 99 on rounds. Was taking 200 mg bid, go back to 100 mg bid. He has at home. He is also on clonidine 2-3 times daily but is unsure what dose. asked him to take pic of bottle to show staff when here next. Medications and labs reviewed. HOME MEDICATIONS Home Medications: losartan 50 mg, by mouth, 1 tablet once a day clonidine HCl tablet, 2-3 times daily labetalol 100 mg, by mouth, Take 1 tablet twice a day Not trazodone 50 mg, by mouth, Take 1 tablet every night at bedtime NOT TAKING 05/05 Sevelamer Carbonate Tablet (Renvela) 800 mg, By Mouth, Take 2 Tablet Three times a day With Meals Take 1-2 tablets po TID with meals. 2 tablets for larger meals and 1 for smaller meals. divalproex 500 mg, by mouth, 1 tablet twice a day B Complex Plus Vitamin C (vitamin b comp and c no.3) 79-68-03-5-300 mg, by mouth, 1 capsule once a day clonazepam 1 mg, by mouth, Take 1 tablet twice a day as directed hydralazine 100 mg, by mouth, Take 1 tablet three times a day for high blood pressure RenaPlex-D (vit b,z-ee-whzf-selen-vit d3-e) 800 mcg-12.5 mg-2,000 unit, by mouth, Take 1 tablet once a day levetiracetam 500 mg, by mouth, [...] No Known Allergies LAST HOSPITALIZATION Discharge Diagnosis: I16.9 Hypertensive crisis, unspecified Admission Date 06/28/25 Discharge Date 06/30/25 TRANSPLANT Comments: working on getting listed for transplant, but needs better compliance. DIALYSIS PRESCRIPTION IHD 3x Week Start date: 06/22/25 Dialyzer: 180NRe Optiflux BFR: 400 DFR: Autoflow 2 Potassium: 2.0 Sodium: 137 EDW: 45 Duration: 3:45 Calcium: 2.5 Bicarb: 35 Rx updated on: 06/20/2025 TREATMENT ASSESSMENT Comments: non compliant Blood pressure elevated. Medications adjusted. BP Stand Pre 07/05/2025: 201/132 06/20/2025: 197/123 06/16/2025: 136/89 BP Sit Pre 07/05/2025: 193/123 06/20/2025: 204/122 06/16/2025: 135/87 BP Stand Post 07/05/2025: 181/106 06/20/2025: 172/100 06/16/2025: 139/76 BP Sit Post 07/05/2025: 179/109 06/20/2025: 181/102 06/16/2025: 136/67 Tx Duration 07/05/2025: 1:40 06/20/2025: 3:06 06/16/2025: 2:03 Missed Treatments 7 - last 30 days 10 - last 60 days 07/01 - recent FLUID ASSESSMENT Comments: Fluid status not acceptable. Interdialytic weight gain not acceptable. No changes indicated. EDW (kg) 07/05/2025: 45.0 06/20/2025: 45.0 06/16/2025: 45.0 Weight Pre (kg) 07/05/2025: 49.1 06/20/2025: 49.1 06/16/2025: 47.0 Weight Post (kg) 07/05/2025: 47.3 06/20/2025: 47.5 06/16/2025: 46.5 PWV (kg) 07/05/2025: 2.3 06/20/2025: 2.5 06/16/2025: 1.5 UF Rate (mL/kg/hr) 07/05/2025: 22.8 06/20/2025: 10.9 06/16/2025: 5.2 ADEQUACY ASSESSMENT Comments: labs pending Prescription compliance not acceptable. Counseled patient regarding prescription compliance. spKt/V, URR 05/30/2025: 2.35, 84.0 05/01/2025: 1.62, 75.0 03/27/2025: 2.24, 85.0 ACCESS ASSESSMENT Access Type: AVFistula Access SubType: Standard Access Status: Active (In Use) - 08/14/2023 Access Location: Right Forearm Created: --/--/---- Flow 05/26/2025: 385 05/03/2025: 842 04/28/2025: 576 Vascular access reviewed. Current access is permanent and functioning well. ANEMIA ASSESSMENT HGB 06/20/2025: 8.4 06/12/2025: 10.0 06/05/2025: 9.6 Ferritin 05/30/2025: 1274.0 05/23/2025: 1219.0 03/20/2025: 1212.0 Mircera, IVP (mcg) 05/05/2025: 75 04/21/2025: 75 Iron Sucrose (Venofer) (mg) 05/15/2025: 100 05/12/2025: 100 05/10/2025: 100 BMM ASSESSMENT PTH, Intact 05/30/2025: 375.0 02/27/2025: 694.0 01/30/2025: 607.0 Calcium, Phosphorus 06/12/2025: 8.9, - 05/30/2025: 9.1, 7.7 05/01/2025: 8.8, 10.8 Vitamin D (Calcitriol) Oral (mcg) 07/05/2025: 0.75 06/20/2025: 0.75 06/16/2025: 0.75 NUTRITION ASSESSMENT Potassium, Albumin 06/12/2025: 4.9, - 05/30/2025: 4.4, 4.3 05/01/2025: 5.2, 4.4 eNPCR 05/30/2025: 1.06 05/01/2025: 0.94 03/27/2025: 0.82 PHYSICAL EXAM Exam Performed. Vital Signs Reviewed. CV - Blood pressure noted. 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 Resumed dialysis in 2022 at [facility]. Patient is stable. Patient discussed with nursing. Patient data updated 07/06/2025 at 9:14 AM Signed By: Saskia Navas NP on 07/06/2025 9:34:34 AM documented in this encounter Plan of Treatment Not on file documented as of this encounter Visit Diagnoses Diagnosis End stage renal disease Dependence on renal dialysis documented in this encounter
--- OUTSIDE RECORDS SUMMARY | 2025-07-08 21:09 | XMS_ITS | Clinical Summary ---
Author Organization [facility], [facility] Address [address] [place] [address] Phone Care Team Providers Care Animal Laboratory Helper Name Role Phone Unavailable Primary Care Provider Unavailabl e Encounters Date Type Department Care Team Description 07/06/2025 Orders Only [facility], [facility] [address] [place] [address] Shahriar Byers MD 07/06/2025 Treatment [facility], [facility] [address] [place] [phone] Saskia Navas NP End stage renal disease; Dependence on renal dialysis 07/05/2025 Orders Only [facility] [address] [place] [address] Shahriar Byers MD 06/20/2025 Orders Only [facility] [facility], [facility] [address] [place] [address] Shahriar Byers MD 06/14/2025 Treatment [facility] [employer], [facility] [address] [place] [address] Shahriar Byers MD End stage renal disease; Dependence on renal dialysis 06/12/2025 Orders Only [facility], [facility] [address] [place] [address] Shahriar Byers MD 06/05/2025 Orders Only [facility] [facility], [facility] [address] [place] [id number] Shahriar Byers MD 05/30/2025 Orders Only [facility], [facility] [address] [place] [address] Shahriar Byers MD 05/26/[address] [place], [place] [address]rology [facility], [facility] [address] [place] [address] Saskia Navas, TINO End stage renal disease; Dependence on renal dialysis 05/25/2025 [facility], [facility] [address] [place] [address] Saskia Navas, TINO End stage renal disease; Dependence on renal dialysis 05/23/2025 [facility], [facility] [address] [place] [address] Shahriar Byers MD 05/15/2025 Orders Only [facility], [facility] [address] [place] [address] Shahriar Byers MD 05/10/2025 [facility], [facility] [address] [place] [address] Shahriar Byers MD 05/10/2025 [facility], [facility] [address] [place] [address] Shahriar Byers MD End stage renal disease; Dependence on renal dialysis 05/05/2025 Treatment [facility], [facility] [address] [place] [address] Saskia Navas NP End stage renal disease; Dependence on renal dialysis 05/03/2025 Refill [facility], [facility] [address] [place] [address] Jasmin Carson MA 05/01/2025 Orders Only [facility], [facility] [address] [place] [phone] Shahriar Byers MD 04/28/2025 Treatment [facility], [facility] [address] [place] [address] Saskia Navas, TINO End stage renal disease; Dependence on renal dialysis 04/24/2025 Orders Only [facility], [facility] [address] [place] [address] Shahriar Byers MD 04/19/2025 Treatment [facility], [facility] [address] [place] [address] Saskia Navas, TINO End stage renal disease; Dependence on renal dialysis 04/18/2025 Orders Only [facility], [facility] [address] [place] [address] Shahriar Byers MD from Last [...] Associated Diagnosis Comments HD KINETICS Routine 07/06/2025 CHEMISTRY Routine 07/06/2025 POST CHEMISTRY Routine 07/06/2025 HEMATOLOGY Routine 07/05/2025 HEMATOLOGY Routine 06/20/2025 CHEMISTRY Routine 06/12/2025 HEMATOLOGY [...] 3 Months Results * (ABNORMAL) HD KINETICS (07/06/2025) Only the most recent of3 resultswithin the time period is included. % Urea Reduction 44(L) 65 - 80 % [facility] 07/06/2025 07/08/2025 11: 29 AM CDT Narrative [facility] - 07/08/2025 Unless otherwise specified, test(s) performed at: [facility], [address] [place] [address] TARGET SETTER: Ryan Singer M.D. For any questions, please call customer service at FREQUENCY:OTHER Resulting Agency Comment Specimen source: Plasma Shahriar Byers MD LAB BLOOD ORDERABLES Final Result Performing Organization Address [facility] de Phone Number [email or web address] See order comments or contact performing lab Unknown, [place] * POST CHEMISTRY (07/06/2025) Only the most recent of3 resultswithin the time period is included. BUN Post Dialysis 14 6 - 19 mg/dL [facility] 07/06/2025 07/08/2025 11: 29 AM CDT Narrative [facility] - 07/08/2025 Unless otherwise specified, test(s) performed at: [facility], [address] [place], [place] [id number] TARGET SETTER: Ryan Singer M.D. For any questions, please call customer service at FREQUENCY:OTHER Resulting Agency Comment Specimen source: Plasma Shahriar Byers MD LAB BLOOD ORDERABLES Final Result Performing Organization Address [facility] de Phone Number [email or web address] See order comments or contact performing lab Unknown, [place] * (ABNORMAL) [facility] Chemistry (07/06/2025) Only the most recent of6 resultswithin the time period is included. BUN 25(H) 6 - 19 mg/dL [facility] 07/06/2025 07/08/2025 10: 50 AM CDT Narrative [facility] - 07/08/2025 Unless otherwise specified, test(s) performed at: [facility], [address] [place] [id number] TARGET SETTER: Ryan Singer M.D. For any questions, please call customer service at FREQUENCY:OTHER Resulting Agency Comment Specimen source: Serum us Shahriar Byers MD LAB BLOOD ORDERABLES Final Result [facility] See order comments or contact performing lab Unknown, [place] * (ABNORMAL) HEMATOLOGY (07/05/2025) Only the most recent of11 resultswithin the time period is included. Neutrophils 70.6 40.0 - 75.0 % [facility] Lymphocytes Relative 10.5(L) 19.0 - 48.0 % [facility] Monocytes 11.2(H) 3.0 - 10.0 % [facility] Eosinophils Relative 3.2 0.0 - 7.0 % [facility] Basophils Relative 1.2 0.0 - 1.5 % [facility] PHILLIP 3.3 0.0 - 4.0 % [facility] WBC 7.49 4.80 - 10.80 1000/mcL [facility] RBC 3.10(L) 4.70 - 6.10 mill/mcL [facility] Hematocrit 29.0(L) 42.0 - 52.0 % [facility] MCV 94 80 - 100 fl [facility] MCH 30.9 27.0 - 31.0 pg [facility] MCHC 33.0 30.0 - 36.0 g/dL [facility] RDW 15.7(H) 11.5 - 14.5 % [facility] Hemoglobin 9.6(L) 14.0 - 18.0 g/dL [facility] Hemoglobin x 3 28.8(L) 42.0 - 54.0 % [facility] Platelets 101(L) 130 - 400 1000/mcL [facility] 07/05/2025 07/06/2025 1:4 7 PM CDT Narrative [facility] - 07/06/2025 Unless otherwise specified, test(s) performed at: [facility], [address] [place] [id number] TARGET SETTER: Ryan Singer M.D. For any questions, please call customer service at FREQUENCY:MONTHLY Resulting Agency Comment Specimen source: Blood Shahriar Byers MD LAB BLOOD ORDERABLES Final Result [facility] See order comments or contact performing lab Unknown, [place] * SPECIAL CHEMISTRY (05/30/2025) Vitamin D, 25-OH, Total 45.2 30.0 - 100.0 ng/mL [facility] Comment: Please Note: Effective August 17, 2023, the methodology for this test has changed to the [employer]. 05/30/2025 05/31/2025 10: 40 AM CDT Narrative Resulting Agency Comment Specimen source: Serum Shahriar Byers MD LAB BLOOD BANK TEST O RDERABLES Final Result Performing Organization Address City/[facility]/ZIP Co de Phone Number [facility] See order comments or contact performing lab Unknown, [place] * [facility] Results (05/30/2025) spKt/V Gotch 2.27 [facility] PCR 52.97 [facility] eKdrt/V 1.94 [facility] WSTDKT/V 2.8 [facility] spKt/V (Daugirdas II) 2.35 [facility] eKt/V Gotch 1.94 [facility] nPCR_HD 1.20 [facility] eNPCR 1.06 [facility] eKt/V ([place]) 2.03 [facility] 05/30/2025 05/30/2025 Eduardo Ordering Provider LAB BLOOD ORDERABLES Final Result [facility] Contact Performing lab Unknown, [place] from Last 3 Months Insurance Medicaid [place] ([id number]) [facility] Medicare
--- OUTSIDE RECORDS SUMMARY | 2025-07-08 21:09 | XMS_ITS | Encounter Summary ---
Author Organization [facility] Address [address] [place] [address] Care Team Providers Care Contracts Advisor Name Role Phone Beverly Veronica MD Primary Care Provider [phone]- [phone] Encounter Details Date Type Department Care Team (Late st Contact Info) Description 06/20/2025 Results Follow-Up [facility] [address] [place] [address] Garry Randolph MD [address] [place] [address] MRI CERVICAL WO CONTRAST Social [...] on file Legal Sex Male 8:04 PM [employer] Gender Identity Not on file Sexual Orientation [...] st Contact Info) Description 12/05/2025 2:40 PM [employer] Office Visit [facility] [address] [phone] Beverly Veronica MD [address] [phone] documented as of this encounter Visit Diagnoses Not on filedocumented in this encounter Additional Health Concerns Assessment Noted Time PHQ-9 Depression Total Score: 3 05/29/20 25 3:06 PM CDT documented as of this encounter Care Teams Contracts Advisor Relationship Specialty Start Date End Date Beverly Veronica MD [address] [address] PCP - General Family Practice 05/29/25 documented as of this encounter
--- OUTSIDE RECORDS SUMMARY | 2025-07-08 21:09 | XMS_ITS | Encounter Summary ---
Author Organization [facility] Address [address] [place] [address] Phone Care Team Providers Care Knot Borer Name Role Phone Unavailable Primary Care Provider Unavailabl e Encounter Details Date Type Department Care Team (Late st Contact Info) Description 07/05/2025 Orders Only [facility] [address] [place] [address] Shahriar Byers MD [address] [facility] [address] [place] [address] Social History Tobacco Use Types [...] Priority Date/Time Associated Diagnosis Comments HEMATOLOGY Routine 07/05/2025 documented in this encounter Results * (ABNORMAL) HEMATOLOGY (07/05/2025) Neutrophils 70.6 40.0 - 75.0 % [facility] [...] 07/06/2025 Unless otherwise specified, test(s) performed at: [facility], [address] [place] [id number] PRE WAVE ASSEMBLER: Ryan Singer M.D. For any questions, please call customer service at FREQUENCY:MONTHLY Resulting Agency Comment Specimen source: Blood us Shahriar Byers MD LAB BLOOD ORDERABLES Final Result [facility] See order comments or contact performing lab Unknown, [place] documented in this encounter Visit Diagnoses Not on filedocumented in this encounter
--- NOTE | 2025-07-08 21:19 | ED_ITS ---
HPI - Headache General: Chief Complaint: Headache Stated Complaint: SOB Time Seen by Provider: 07/08/25 21:05 History of Present Illness: Patient is a 24-year-old with ESRD on HD TTS, just discharged from [facility] yesterday, and missed his dialysis today. Last HD was . He presents for a headache posterior portion of his head and his neck. He had an MRI at [facility] and is awaiting outpatient pain management. Patient is not having any other symptoms other than his head and his neck, and elevation blood pressure. On evaluation initially, he was quite hypertensive. He did not have any nausea, vomiting. His dad gives a history of his blood pressure being chronically high. Associated symptoms: Deny chest pain, fever(s), nausea or vomiting Related Data Home Medications ?Medication ?Instructions ?Recorded ?Confirmed labetalol 100 mg tablet 200 mg PO BID 09/11/2406/28 hydralazine 100 mg tablet 100 mg PO TID 04/05/2506/28 sumatriptan 20 mg/actuation nasal 20 mg intranasal Q12 H PRN Migraine 04/05/25 06/28/25 spray Headache fluoxetine 10 mg capsule 10 mg PO DAILY 06/28/2506/19 Previous Rx's ?Medication ?Instructions ?Recorded clonazepam 1 mg tablet (Klonopin) 1 mg PO BID PRN anxi ety #10 tabs 01/09/25 acetaminophen 325 mg tablet 650 mg (2 x 325 mg) PO Q6H PRN 06/29/25 Mild/Mod Pain Or Temp >/= 101 #30 tabs clonidine HCl 0.1 mg tablet 0.2 mg (2 x 0.1 mg) PO TID #90 tabs 06/29/25 divalproex 500 mg tablet,delayed 500 mg PO BID #60 tab s 06/29/25 release losartan 50 mg tablet 50 mg PO DAILY #30 tabs 06/19 11/12 nifedipine 30 mg tablet,extended 90 mg (3 x 30 mg) PO DAILY #30 tabs 06/29/25 release 24 hr methocarbamol 750 mg tablet 750 mg PO Q8H PRN muscle s pasm #30 07/08/25 tabs Allergies Allergy/AdvReac Type Severity Reaction Status Date / Time NSAIDS (Non-Steroidal Allergy Severe unable to Verified 06/27/25 20:41 Anti-Inflamma take due to kidney disease sertraline (From Zoloft) Allergy Unknown Verified 06/27/25 20:41 Review of Systems General: Reports: 10 or more systems reviewed and unremarkable except in HPI and below Const: Denies: fever(s) or chills Eyes: Denies: change in vision or blurry vision ENMT: Denies: throat pain or mouth pain Card: Denies: chest pain or palpitations Resp: Reports: dyspnea; Denies: productive cough GI: Denies: abdominal pain, nausea or vomiting : Reports: other (Oligoanuria); Denies: flank pain or difficulty urinating Musc: Reports: neck pain; Denies: back pain, extremity pain or extremity swelling Neuro: Reports: headache(s); Denies: numbness in extremities Psych: Reports: anxiety and mood swings; Denies: depression PFSH ED PFSH: Medical History (Updated 07/08/25 @ 23:39 by CHARITY Carlos) Noncompliance with renal dialysis Adrenal insufficiency Hypoglycemia CKD (chronic kidney disease) stage V requiring chronic dialysis Generalized anxiety disorder Other stimulant dependence, in remission Problems related to lack of adequate sleep Substance abuse Depression Anxiety Social History Smoking and tobacco/nicotine status: unknown if used tobacco/nicotine Quit status (tobacco/nicotine): has tried quititng Number of times tried to quit tobacco: 4 Second hand smoke exposure: No Alcohol intake: never Substance/Drug Use: current Substance/Drug use frequency: Special occassions /opportunity only Additional social history: Patient uses marijuana 1 g every other day he has remote history of some meth use. He reports chewing tobacco and using nicotine pouches but denies smoking cigarettes. He denies suicidal ideation. Patient is companied by his girlfriend and his CODE STATUS is always been full code I confirmed with the patient on 06/05/2025 that he wants full CODE STATUS by Daron Ayala MD Physical Exam Const: COMMON NORMALS: no acute distress, average body habitus, patient oriented x3 and no limitations HENMT: COMMON NORMALS: normocephalic, atraumatic and hearing grossly normal bilaterally HEAD & SCALP: normocephalic and atraumatic Lymph: LYMPHATIC: no lymphadenopathy noted Chest: COMMONS NORMALS: normal inspection of the chest Resp: COMMON NORMALS: normal respiratory effort, No retractions and clear to auscultation bilaterally AUSCULTATION: clear to auscultation bilaterally Cardio: COMMON NORMALS: regular rate and regular rhythm RATE: regular rate RHYTHM: regular rhythm GI: COMMON NORMALS: Normal to inspection, nondistended, normoactive bowel sounds present, Soft to palpation, non-tender and No hepatosplenomegaly present PALPATION: Yes Soft to palpation and Yes No hepatosplenomegaly present : COMMON NORMALS: Yes no CVA tenderness BLADDER/KIDNEY EXAM: Yes no CVA tenderness Back/Pelvis: COMMON NORMALS: no CVA tenderness Extremity: COMMON NORMALS: normal to inspection, full ROM, capillary refill normal and no joint enlargement NARRATIVE EXTREMITY EXAM: AV fistula for dialysis intact GENERAL: Yes AV fistula and No calf tenderness Neuro: COMMON NORMALS: patient oriented x3, CN's II-XII intact bilaterally and moves all extremities Psych: COMMON NORMALS: mental status grossly normal Course Vital Signs: Vital signs: Vital Signs Temperature 98 F 07/08/25 21:08 Pulse Rate 80 07/08/25 22:33 Respiratory Rate 16 07/08/25 22:33 Blood Pressure 186/115 07/08/25 22:33 Pulse Oximetry 99 07/08/25 22:33 MDM - Headache Medical Decision Making Patient is a 24-year-old male with ESRD on HD TTS presented with ongoing posterior headache, neck pain. Recent MRI at [facility] showed no acute findings. This has not changed and worsened since missing his dialysis today. Patient has a history of noncompliance as well. In any event he is following up with his primary care physician. He does not have any complaints that would be concerning to obtain labs. His oxygen saturation is 99%. He will be discharged home after control of his headache/neck pain. He is improved after Norflex, he has requested Compazine, sumatriptan, Benadryl. Blood pressure has decreased substantially to 160/99 after Norflex, hydralazine, and clonidine. He is to follow-up with his primary care physician on Thursday to repeat labs or the dialysis unit, to see if he can be dialyzed on Thursday. Medical Records I reviewed the patient's medical records. All radiology interpretation(s) finalized by discharge Discharge Plan Discharge Patient Disposition: Home Clinical Impression: Tension headache, Neck pain, Noncompliance Condition: Stable Prescriptions: New methocarbamol 750 mg tablet 750 mg PO Q8H PRN (Reason: muscle spasm) Qty: 30 0RF No Action sumatriptan 20 mg/actuation spray,non-aerosol 20 mg INTRANASAL Q12H PRN (Reason: Migraine Headache) hydralazine 100 mg tablet 100 mg PO TID labetalol 100 mg tablet 200 mg PO BID clonazepam [Klonopin] 1 mg tablet 1 mg PO BID PRN (Reason: anxiety) Qty: 10 0RF fluoxetine 10 mg capsule 10 mg PO DAILY acetaminophen 325 mg Tablet 650 mg PO Q6H PRN (Reason: Mild/Mod Pain Or Temp >/= 101) Qty: 30 0RF losartan 50 mg Tablet 50 mg PO DAILY Qty: 30 0RF nifedipine 30 mg Tablet Extended Release 24hr 90 mg PO DAILY Qty: 30 0RF clonidine HCl 0.1 mg Tablet 0.2 mg PO TID Qty: 90 0RF divalproex 500 mg Tablet,Delayed Release (Dr/Ec) 500 mg PO BID Qty: 60 0RF Discharge Orders: Discharge ED (Routine); Ordered 07/08/25 Ordered By: Naye Loyd Referrals: Beverly Veronica MD [Primary Care Provider, Family Practice] Discharge Diet: Usual diet and Low Salt Discharge Activity: Resume usual activity Patient Instructions: Acute Headache (ED), Patient Portal & [facility]ria Instructions Activity Restrictions/Additional Instructions: -- Call your doctor on Thursday for follow-up. Set an alarm. Call dialysis unit on Thursday early when they open. Set an alarm. See if they can dialyze you on Thursday. Return to ED if you have worsening symptoms or need additional workup tomorrow. Print Language: Mongolian Coding Level of Care Code ED Still Photographer for Loida Menon
[2025-07-08 21:28] VITALS: BP 175/123; PULSE 82; RESP 16; O2SAT 99
[2025-07-08 21:32] VITALS: BP 172/121
[2025-07-08] MEDS: orphenadrine 30 mg/mL Inj 2 mL 60 MG IM (21:32)
[2025-07-08 22:33] VITALS: BP 186/115; PULSE 80; RESP 16; O2SAT 99
[2025-07-08] MEDS: diphenhydrAMINE 50 mg/mL SDV 1mL IM (23:47)
[2025-07-08 23:48] VITALS: BP 163/99; PULSE 93; RESP 18; O2SAT 99
== END 2025-07-08 23:49 | disposition home or self-care (01) ==
PROVIDERS: Emergency Provider Physician Assistant; PCP Family Medicine
DX: G44.209 Tension-type headache, unspecified, not intractable (principal); M54.2 Cervicalgia; N18.6 End stage renal disease; Z99.2 Dependence on renal dialysis; Z91.158 Patient's noncompliance with renal dialysis for other reason
CPT/HCPCS: 96372; 99284; J0780; J1200; J2360; J3030; J9999

== ENCOUNTER 2025-07-10 11:00 | Observation (INO) | payer OTHER, MEDICAID, SELFPAY ==
[2025-07-10] VITALS (10 sets, daily range): BP systolic 160–224; BP diastolic 110–158; PULSE 79–109; RESP 16–22; TEMP 36.3–36.8; O2SAT 90–98; BMI 21.5
--- NOTE | 2025-07-10 11:05 | ECG_ITS ---
[facility] Date: 2025-07-10 Pat Name: Vance Sainz Department: Room: Gender: Male Metal Bumper: : [id number] Requested By: Nadia Rice Order Number: [id number] Raman MD: Nuha Garcia M.D. Measurements Intervals Melvin Rate: 83 P: 62 OH: 129 QRS: 9 QRSD: 97 T: 50 QT: 408 QTc: 480 Interpretive Statements SINUS RHYTHM Compared to ECG 06/28/2025 01:33:50 Prolonged QT interval no longer present Electronically Signed On 07-10-2025 20:20:41 CDT by Nuha Garcia M.D. [email or web address]
--- NOTE | 2025-07-10 11:06 | W.ED.SOB ---
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 Apparently he missed his dialysis Thursday and only did a partial dialysis on . He says he woke up this morning feeling extremely short of breath. He has a productive cough. No known fevers. No chest pain. Related Data Home Medications ?Medication ?Instructions ?Recorded ?Confirmed labetalol 100 mg tablet 200 mg PO BID 09/11/24 06/28/25 hydralazine 100 mg tablet 100 mg PO TID 04/05/25 06/28/25 sumatriptan 20 mg/actuation nasal 20 mg intranasal Q12H PRN Migraine 04/05/25 06/28/25 spray Headache fluoxetine 10 mg capsule 10 mg PO DAILY 06/28/25 06/28/25 Previous Rx's ?Medication ?Instructions ?Recorded clonazepam 1 mg tablet (Klonopin) 1 mg PO BID PRN anxiety #10 tabs 01/09/25 acetaminophen 325 mg tablet 650 mg (2 x 325 mg) PO Q6H PRN 06/29/25 Mild/Mod Pain Or Temp >/= 101 #30 tabs clonidine HCl 0.1 mg tablet 0.2 mg (2 x 0.1 mg) PO TID #90 tabs 06/29/25 divalproex 500 mg tablet,delayed 500 mg PO BID #60 tabs 06/29/25 release losartan 50 mg tablet 50 mg PO DAILY #30 tabs 06/29/25 nifedipine 30 mg tablet,extended 90 mg (3 x 30 mg) PO DAILY #30 tabs 06/29/25 release 24 hr methocarbamol 750 mg tablet 750 mg PO Q8H PRN muscle spasm #30 07/08/25 tabs Allergies Allergy/AdvReac Type Severity Reaction Status Date / Time NSAIDS (Non-Steroidal Allergy Severe unable to Verified 06/27/25 20:41 Anti-Inflamma take due to kidney disease sertraline (From Zoloft) Allergy Unknown Verified 06/27/25 20:41 Review of Systems Narrative: Constitutional symptoms: Negative except as documented in HPI. Skin symptoms: Negative except as documented in HPI. Eye symptoms: Negative except as documented in HPI. ENMT symptoms: Negative except as documented in HPI. Respiratory symptoms: Negative except as documented in HPI. Cardiovascular symptoms: Negative except as documented in HPI. Gastrointestinal symptoms: Negative except as documented in HPI. Genitourinary symptoms: Negative except as documented in HPI. Musculoskeletal symptoms: Negative except as documented in HPI. Neurologic symptoms: Negative except as documented in HPI. Psychiatric symptoms: Negative except as documented in HPI. Endocrine symptoms: Negative except as documented in HPI. PFSH ED PFSH: Medical History (Updated 07/10/25 @ 12:40 by Nadia Pepe MD) Noncompliance with renal dialysis Adrenal insufficiency Hypoglycemia CKD (chronic kidney disease) stage V requiring chronic dialysis Generalized anxiety disorder Other stimulant dependence, in remission Problems related to lack of adequate sleep Substance abuse Depression Anxiety Social History Smoking and tobacco/nicotine status: unknown if used tobacco/nicotine Quit status (tobacco/nicotine): has tried quititng Number of times tried to quit tobacco: 4 Second hand smoke exposure: No Alcohol intake: never Substance/Drug Use: current Substance/Drug use frequency: Special occassions/opportunity only Additional social history: Patient uses marijuana 1 g every other day he has remote history of some meth use. He reports chewing tobacco and using nicotine pouches but denies smoking cigarettes. He denies suicidal ideation. Patient is companied by his girlfriend and his CODE STATUS is always been full code I confirmed with the patient on 06/05/2025 that he wants full CODE STATUS by Daron Ayala MD Physical Exam Narrative: EXAM NARRATIVE: General: Alert, no acute distress. Skin: Warm, dry. Head: Normocephalic, atraumatic. Neck: Supple, trachea midline. Eye: Extraocular movements are intact. Ears, nose, mouth and throat: mucosa moist. Cardiovascular: Regular, Normal peripheral perfusion. Right forearm AV fistula Respiratory: Coarse lung sounds, frequent cough Gastrointestinal: Soft, Nontender, Non distended Musculoskeletal: Normal ROM, no deformity. Neurological: Alert and oriented, No focal neurological deficit observed. Psychiatric: Cooperative, appropriate mood & affect. Course Vital Signs: Vital signs: Vital Signs Temperature 97.6 F 07/10/25 11:03 Pulse Rate 87 07/10/25 11:48 Respiratory Rate 18 07/10/25 11:03 Blood Pressure 220/120 07/10/25 11:48 Pulse Oximetry 98 07/10/25 11:48 Oxygen Delivery Me thod Room Air 07/10/25 11:48 MDM - SOB/Dyspnea Medical Decision Making Differential diagnosis for patient with shortness of breath includes but is not limited to and based on the above HPI, review of systems and physical exam: Pneumonia. Bronchitis. Asthma or COPD with acute exacerbation. Acute coronary syndrome / [place]. Pulmonary embolism. Anxiety. Congestive heart failure. Viral infections including influenza and Covid-19. Atrial fibrillation. Anxiety. Pleural effusion. Pneumothorax. Orders placed to evaluate differential diagnosis based on the above differential, HPI and physical exam EKG: Time 1146. Rate 83. Normal sinus rhythm, No ST-T changes, no ectopy, normal [place] & QRS intervals, This was reviewed and interpreted by myself the ER physician at 11:50 AM Chest x-ray: Pulmonary edema, cardiomegaly. This was reviewed and interpreted by myself the emergency room physician. I also reviewed the radiology report. Lab Review: Laboratory results were reviewed and interpreted by myself the emergency room physician. No leukocytosis. Stable anemia with a hemoglobin 7.8. Potassium slightly elevated at 5.7. BUN and creatinine are very elevated at 94 and 13. I reviewed the patient's medical record. 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 No increased work of breathing. No altered mental status. No focal motor deficits. Consultation: I spoke with Dr. Whitfield who is identification and records commander for nephrology who will arrange for dialysis emergently. Consultation: I spoke with Dr. Kenny who is on-call for the hospitalist service who agrees to observation for dialysis. Assessment and plan: End-stage renal disease on dialysis Pulmonary edema Medical noncompliance Malignant hypertension ?IV labetalol. IV Dilaudid. -I discussed the patient with the hospitalist on-call who is admitting the patient. - Discussed findings and plan with patient. Answered any questions. - All laboratory values were reviewed and interpreted personally by myself, the ER physician - All imaging was reviewed and interpreted personally by myself, the ER physician. - Evaluation and treatment of this problem were appropriate in the emergency setting Lab Data 07/10/25 11:19 07/10/25 11:19 Labs/Radiology: Radiology Impressions Chest X-Ray 07/10/25 11:39 IMPRESSION: 1. Interstitial infiltrates noted throughout both lungs that may represent interstitial pneumonia or pulmonary edema. Laboratory Results WBC 8.31 10^3/uL (3.29-11.43) 07/10/25 11:19 RBC 2.54 10^6/uL (3.85-5.65) L 07/10/25 11:19 Hgb 7.80 g/dL (11.27-16.99) L 07/10/25 11:19 Hct 24.1 % (37-53) L 07/10/25 11:19 MCV 94.9 fl (82-101) 07/10/25 11:19 MCH 30.7 pg (27-33) 07/10/25 11:19 MCHC 32.4 g/dL (30-55) 07/10/25 11:19 RDW 14.8 % (12.1-15.1) 07/10/25 11:19 Plt Count 88 10^3/cmm (157-399) L 07/10/25 11:19 MPV 10.7 fL (7.4-10.4) H 07/10/25 11:19 Neut % (Auto) 72.3 % 07/10/25 11:19 Lymph % (Auto) 10.8 % 07/10/25 11:19 Crisp % (Auto) 12.5 % 07/10/25 11:19 Eos % (Auto) 3.0 % 07/10/25 11:19 Baso % (Auto) 1.0 % 07/10/25 11:19 Neut # (Auto) 6.01 10^3/uL (1.8-7.7) 07/10/25 11:19 Lymph # (Auto) 0.9 10^3/uL (0.8-4.8) 07/10/25 11:19 Crisp # (Auto) 1.0 10^3/uL (0.2-0.9) H 07/10/25 11:19 Eos # (Auto) 0.3 10^3/uL (0.0-0.8) 07/10/25 11:19 Baso # (Auto) 0.1 10^3/uL (0.0-0.1) 07/10/25 11:19 Nucleated RBC % (auto) 0 % 07/10/25 11:19 Nucleated RBCs # 0.0 /100WBC 07/10/25 11:19 Sodium 139 mmol/L (136-145) 07/10/25 11:19 Potassium 5.7 mmol/L (3.5-5.1) H 07/10/25 11:19 Chloride 97 mmol/L (98-107) L 07/10/25 11:19 Carbon Dioxide 21 mmol/L (22-29) L 07/10/25 11:19 Anion Gap 26.7 (5-19) H 07/10/25 11:19 BUN 94 mg/dL (6-20) H* D 07/10/25 11:19 Creatinine 13.1 mg/dL (0.7-1.2) H* 07/10/25 11:19 GFR Calculation 4.7 mL/min (90-130) L 07/10/25 11:19 Glucose 81 mg/dL (65-115) 07/10/25 11:19 Calculated Osmolality 316 mOsm/kg (285-295) H 07/10/25 11:19 Lactic Acid 1.0 mmol/L (0.5-2.2) 07/10/25 11:19 Calcium 8.3 mg/dL (8.5-10.5) L 07/10/25 11:19 Total Bilirubin 0.2 mg/dL (0.15-1.2) 07/10/25 11:19 AST 21 U/L (0-40) 07/10/25 11:19 ALT 11 U/L (0-41) 07/10/25 11:19 Alkaline Phosphatase 76 U/L (40-130) 07/10/25 11:19 C-Reactive Protein 3.0 mg/L (0.0-4.9) 07/10/25 11:19 Total Protein 5.8 g/dL (6.6-8.7) L 07/10/25 11:19 Albumin 4.1 g/dL (3.5-5.2) 07/10/25 11:19 Globulin 1.7 g/dL (1.3-4.6) 07/10/25 11:19 All radiology interpretation(s) finalized by discharge Discharge Plan Discharge Patient Disposition: Placed in Observation Clinical Impression: ESRD on dialysis, Pulmonary edema, Malignant hypertension, Medical non-compliance Coding Level of Care Code ED Utility Operator Yarn for Loida Menon
--- OUTSIDE RECORDS SUMMARY | 2025-07-10 11:07 | XMS_ITS | Encounter Summary ---
Author Organization [facility], [facility] Address [address] [place] [address] Phone Care Team Providers Care Strategic Debriefing Officer Name Role Phone Unavailable Primary Care Provider Unavailabl e Encounter Details Date Type Department Care Team (Late st Contact Info) Description 07/06/2025 Treatment [facility] [address] [place] [address] Saskia Navas NP [address] [place] [address] End stage renal disease; Dependence [...] Vance Sainz, 2000, 24y, M Dialysis Location: [place] Attending Sales Program Manager: Shahriar Byers Service Date: 07/06/2025 Service Provider: [...] C (vitamin b comp and c no.3) 76-92-56-5-300 mg, by mouth, 1 capsule once a day clonazepam 1 mg, by mouth, Take 1 tablet twice a day as directed hydralazine 100 mg, by mouth, Take 1 tablet three times a day for high blood pressure RenaPlex-D (vit b,v-gq-ukft-selen-vit d3-e) 800 mcg-12.5 mg-2,000 unit, by mouth, [...] moderate glomerulonephritis. Resumed dialysis in 2022 at [facility]. Patient is stable. Patient discussed with nursing. Patient data updated 07/06/2025 at 9:14 AM Signed By: Saskia Navas NP on 07/06/2025 9:34:34 AM documented in this encounter Plan of Treatment Not on file documented as of this encounter Visit Diagnoses Diagnosis End stage renal disease Dependence on renal dialysis documented in this encounter
--- OUTSIDE RECORDS SUMMARY | 2025-07-10 11:07 | XMS_ITS | Encounter Summary ---
Author Organization [facility] Address [address] [place] [address] Phone Care Team Providers Care Single Spindle Screw Machine Operator Name Role Phone Unavailable Primary Care Provider Unavailabl e Encounter Details Date Type Department Care Team (Late st Contact Info) Description 07/05/2025 Orders Only [facility] [address] [place] [address] Shahriar Byers MD [address] [facility] [address] [place] [address] Social History Tobacco Use Types [...] 07/06/2025 Unless otherwise specified, test(s) performed at: [facility], [address] [place] [id number] BLANKET MAKER: Ryan Singer M.D. For any questions, please call customer service at FREQUENCY:MONTHLY Resulting Agency Comment Specimen source: Blood us Shahriar Byers MD LAB BLOOD ORDERABLES Final Result [facility] See order comments or contact performing lab Unknown, [place] documented in this encounter Visit Diagnoses Not on filedocumented in this encounter
--- OUTSIDE RECORDS SUMMARY | 2025-07-10 11:07 | XMS_ITS | Encounter Summary ---
Author Organization [facility] Address 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 Topic: Established Patient Care >> Jun 29, 2025 11:42 AM Asya Mckeon wrote: Is the patient established with a [facility] provider? Yes, select appropriate option in Discharge Facility SmartList Caller Name: Harjinder with [facility] Callback Number: [phone] Call Notes: Calling reporting pt will be [...] st Contact Info) Description 12/05/2025 2:40 PM PULLEY WORKER Office Visit [facility] [address] [address] Beverly Veronica MD [address] [address] documented as of this encounter Visit Diagnoses Not on filedocumented in this encounter Additional Health Concerns Assessment Noted Time PHQ-9 Depression Total Score: 3 05/29/20 25 3:06 PM CDT documented as of this encounter Care Teams Motorcycle Sales Associate Relationship Specialty Start Date End Date Beverly Veronica MD [address] [place] [phone] PCP - General Family Practice 05/29/25 documented as of this encounter
--- OUTSIDE RECORDS SUMMARY | 2025-07-10 11:07 | XMS_ITS | Encounter Summary ---
Author Organization [facility] Address [address] [address] Phone Care Team Providers Care Auto Bumper Straightener Name Role Phone Unavailable Primary Care Provider Unavailabl e Encounter Details Date Type Department Care Team (Late st Contact Info) Description 04/01/2023 Telephone [facility] [address] [phone] Shawn Betancourt MD [address] [place] [address] Social History Tobacco Use Types Packs/Day Years [...]
--- OUTSIDE RECORDS SUMMARY | 2025-07-10 11:07 | XMS_ITS | Encounter Summary ---
Author Organization [facility], [facility] Address [address] [address] Phone Care Team Providers Care Development Expert Name Role Phone Unavailable Primary Care Provider Unavailabl e Reason for Visit * Reason Comments Med Refill Encounter Details Date Type Department Care Team (Late st Contact Info) Description 04/14/2024 Refill [facility] [address] [facility] [address] [place] [address] Shahriar Byers MD [address] [address] Social History Tobacco Use Types [...]
--- OUTSIDE RECORDS SUMMARY | 2025-07-10 11:07 | XMS_ITS | Clinical Summary ---
Author Organization [facility] Address [address] [place] [address] Phone Care Team Providers Care Pharm Tech Name Role Phone Beverly Veronica MD Primary Care Provider [phone]- [phone] Allergies Active Allergy Reactions Criticality Noted Date [...] daily. 30 Tablet 2 5 Active vit B,U-FT-tesj-se mishel-vit D3-E (RenaPlex-D) 800 mcg-12.5 mg -2,000 [...] Department Care Team Description 07/04/2025 Orders Only [facility] Information Management [place] [address] [place] [address] Provider, Abstract 06/29/2025 Telephone [facility] [address] [phone] Beverly Veronica MD Information 06/27/2025 External Device Data STL ABSTRACTION Provider, Abstract 06/20/2025 External Device Data [facility] ABSTRACTION Provider, Abstract 06/20/2025 Results Follow-Up [facility] [address] [place] [address] Garry Randolph MD MRI CERVICAL WO CONTRAST 06/15/2025 11:29 AM CDT - 06/15/2025 11:59 PM CDT Hospital Encounter [facility] [place] [address] [place] [phone] Garry Randolph MD Discharge Disposition: Home or Self Care 05/30/2025 External Device Data ST[facility] ABSTRACTION Provider, Abstract 05/29/2025 2:40 PM CDT Office Visit [address] [phone] Beverly Veronica MD Abrasion, foot without infection (Primary Dx); Seizure disorder ([facility]); Severe major depressive disorder ([facility]); ESRD (end stage renal disease) ([facility]) 05/24/2025 External Device Data ST[facility] ABSTRACTION Provider, Abstract 05/16/2025 3:00 PM CDT Office Visit [facility] [address] [place] [address] Garry Randolph MD Chronic neck pain (Primary Dx); Myofascial pain; DDD (degenerative disc disease), cervical; Cervical spondylosis without myelopathy; Cervical stenosis of spinal canal 05/16/2025 External Device Data ST[facility] ABSTRACTION Provider, Abstract 05/03/2025 External Device Data [facility] ABSTRACTION Provider, Abstract 04/27/2025 1:26 AM CDT - 04/27/2025 3:02 AM CDT Emergency [facility] Emergency Department [address] [place] [address] Demario Felipe MD Neck pain (Primary Dx); ESRD on hemodialysis ([facility]); Poorly-controlled hypertension Discharge Disposition: Home or Self Care 04/27/2025 Travel 04/26/2025 12:15 AM CDT - 04/26/2025 11:59 PM CDT Hospital Encounter [facility] Emergency Medical Services [facility] [address] [place] [address] Ambulance, [facility] Discharge Disposition: [facility] 04/25/2025 2:50 PM CDT Ancillary Procedure [facility] [place] [id number] [facility] [place] [address] Shahriar Mckeon MD Closed dislocation of left elbow, initial encounter 04/25/2025 2:25 PM CDT Ancillary Procedure [facility] [address] [place] [address] [facility] Shahriar, MD Left hand pain; Right hand pain 04/25/2025 2:20 PM CDT Office Visit [address] [place] [address] [facility] Shahriar, MD Closed nondisplaced fracture of other part of [...] PNEUM OCOCCAL CONJUGATE VACCINE 20-VALENT (PCV20), POLYSACCHARIDE DIN502 CONJUGATE, ADJUVANT 0.5 ML (PF) IM 12/14/2024 [...] file 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 Constance Lim LIGHTING ADVISER CT ORDERABLES Final R esult * CT [...] Remainder unremarkable. IMPRESSION: No acute intracranial abnormality. Cosntance Joseph McTeefaith LIGHTING ADVISER CT ORDERABLES Final R esult * (ABNORMAL) CBC WITH DIFFERENTIAL (04/26/2025 9:24 PM CDT) [facility] WBC 11.0 4.5 - 11.0 K/uL 04/26/2025 9:54 PM CDT [facility] RBC 3.38(L) 4.60 - 6.20 M/uL 04/26/2025 9:54 PM CDT [facility] HEMOGLOBIN 10.3(L) 14.0 - 18.0 g/dL 04/26/2025 9:54 PM CDT [facility] HEMATOCRIT 33.3(L) 41.0 - 53.0 % 04/26/2025 9:54 PM T [facility] MCV 98.5 84.0 - 103.0 fL 04/26/2025 9:54 PM CDT [facility] MCH 30.5 27.0 - 34.0 pg 04/26/2025 9:54 PM [facility] MCHC 30.9 30.0 - 35.0 g/dL 04/26/2025 9:54 PM [facility] PLATELETS 213 140 - 440 K/uL 04/26/2025 9:54 PM [facility] MPV 10.9 8.9 - 12.8 fL 04/26/2025 9:54 PM [facility] RDW 17.2(H) 11.0 - 14.5 % 04/26/2025 9:54 PM [facility] RDW-STDEV 60.4(H) 37.0 - 54.0 fL 04/26/2025 9:54 PM [facility] NEUTROPHILS 92(H) 42 - 75 % 04/26/2025 9:54 PM [facility] LYMPHOCYTES 4(L) 24 - 44 % 04/26/2025 9:54 PM [facility] MONOCYTES 2 2 - 10 % 04/26/2025 9:54 PM [facility] EOSINOPHILS 1 0 - 7 % 04/26/2025 9:54 PM [facility] BASOPHILS 1 0 - 1 % 04/26/2025 9:54 PM [facility] IMMATURE GRANULOCYTES 1 0 - 2 % 04/26/2025 9:54 PM [facility] NEUTROPHIL ABSOLUTE 10.16(H) 2.00 - 8.00 K/uL 04/26/2025 9:54 PM [facility] LYMPHOCYTE ABSOLUTE 0.47(L) 1.20 - 4.00 K/uL 04/26/2025 9:54 [address] [facility] MONOC[facility]TE ABSOLUTE 0.22 0.10 - 0.60 K/uL 04/26/2025 9:54 PM CDT [facility] EOSINOPHIL ABSOLUTE 0.06 0.00 - 0.70 K/uL 04/26/2025 9:54 PM CDT [facility] BASOPHILS ABSOLUTE 0.05 0.00 - 0.20 K/uL 04/26/2025 9:54 PM CDT [facility] IMMATURE GRANULOCYTES ABSOLUTE 0.07 0.00 - 0.10 K/uL 04/26/2025 9:54 PM CDT [facility] SMEAR REVIEWED: NN - No Action Needed 04/26/2025 9:54 PM CDT [facility] Blood Venipuncture / Unknown 04/26/2025 9:24 PM CDT 04/26/2025 9:39 PM CDT Constance Lim LIGHTING ADVISER HEMATOLOGY ORDERABLES F inal Result [facility] CLIA # [id number] [address] [place] [address] * INSERT PERIPHERAL IV (04/26/2025 9:20 PM CDT) Narrative Nahum Matos RN - 04/26/2025 9:20 PM CDT Nahum Matos RN 04/26/2025 9:39 PM VASCULAR ACCESS TEAM Peripheral IV insertion with lab collection PATIENT NAME: Vance Sainz DATE OF : 2000 CSN: [id number] DATE: 04/26/2025 Room: Room/bed info not found [...] tolerated well. Nahum Matos, EUGENIA Constance Makir LIGHTING ADVISER IV THERAPY ORDERABLES F inal Result * XR ELBOW 3+ VW LEFT (04/25/2025 2:57 PM CDT) Anatomical Region Laterality Modality Upper Extremity Computed Radiogr aphy Narrative 04/26/2025 8:52 AM CDT X-rays obtained of the left elbow on April 25, 2025 independently reviewed which does not demonstrate any acute osseous abnormalities, fractures, or dislocations noted. Shahriar Baxano PA DIAGNOSTIC IMAGING ORDERABLES Fi nal Result [...] chronic and healed fifth metacarpal neck fracture. Flimper PA DIAGNOSTIC IMAGING ORDERABLES Fi nal Result from Last 3 Months Insurance [place]ICA[place]MO [facility] [id number] RX [employer] RX Member Subscriber Plan / Payer (Ef fective 2025-Present) Name:Vance Sainz Relation to Subscriber:Self Name:Vance Sainz Subscriber ID:Not on file Payer ID:Not on file Group ID:[id number] Type:RX Medicare Part D Address: [place] Advance Directives For more information, please contact: [phone] * Full Code (Latest Code Status on File) Date Activated Date Inactivated Comments 01/31/2025 2:27 PM 02/03/2025 8:44 PM Care Teams Pharm Tech Relationship Specialty Start Date End Date Beverly Veronica MD [address] [place] [phone] PCP - General Family Practice 05/29/25
--- OUTSIDE RECORDS SUMMARY | 2025-07-10 11:07 | XMS_ITS | Encounter Summary ---
Author Organization [place] [facility] [employer], [facility] Address [address] [facility] [address] [place] [address] Phone Care Team Providers Care Punch Machine Operator Name Role Phone Unavailable Primary Care Provider Unavailabl e Encounter Details Date Type Department Care Team (Late st Contact Info) Description 08/27/2022 [facility] [employer] [employer] [address] [facility] [address] [place] [address] Kidney transplant status Social History [...]
--- OUTSIDE RECORDS SUMMARY | 2025-07-10 11:07 | XMS_ITS | Encounter Summary ---
Author Organization [place] [facility] [employer], [facility] Address [address] [place] [address] Phone Care Team Providers Care Legal Office Administrator Name Role Phone Unavailable Primary Care Provider Unavailabl e Encounter Details Date Type Department Care Team (Late st Contact Info) Description 07/06/2025 Orders Only [place] [facility] [employer] [address] [place] [address] Shahriar Byers MD [address] [facility] [address] [place] [address] Social History Tobacco Use Types [...] Urea Reduction 44(L) 65 - 80 % [facility] 07/06/2025 07/08/2025 11: 29 AM CDT Narrative [facility]RA[facility] - 07/08/2025 Unless otherwise specified, test(s) performed at: [facility], [address] [place], [place] [id number] COMMERCIAL CREDIT REVIEWER: Ryan Singer M.D. For any questions, please call customer service at FREQUENCY:OTHER Resulting Agency Comment Specimen source: Plasma Shahriar Byers MD LAB BLOOD ORDERABLES Final Result Performing Organization Address [facility] Co de Phone Number [facility] See order comments or contact performing lab Unknown, [place] * (ABNORMAL) [facility] Chemistry (07/06/2025) BUN 25(H) 6 - 19 mg/dL [facility] 07/06/2025 07/08/2025 10: 50 AM CDT Narrative [facility] - 07/08/2025 Unless otherwise specified, test(s) performed at: [facility], [address] [place] [id number] COMMERCIAL CREDIT REVIEWER: Ryan Singer M.D. For any questions, please call customer service at FREQUENCY:OTHER Resulting Agency Comment Specimen source: Serum Shahriar Byers MD LAB BLOOD ORDERABLES Final Result Performing Organization Address [facility] Co de Phone Number [facility] See order comments or contact performing lab Unknown, [place] * POST CHEMISTRY (07/06/2025) BUN Post Dialysis 14 6 - 19 mg/dL [facility] 07/06/2025 07/08/2025 11: 29 AM CDT Narrative [facility] - 07/08/2025 Unless otherwise specified, test(s) performed at: [facility], [address] [place] [id number] COMMERCIAL CREDIT REVIEWER: Ryan Singer M.D. For any questions, please call customer service at FREQUENCY:OTHER Resulting Agency Comment Specimen source: Plasma Shahriar Byers MD LAB BLOOD ORDERABLES Final Result Performing Organization Address City/[facility]/ZIP Co de Phone Number [facility] See order comments or contact performing lab Unknown, [place] documented in this encounter Visit Diagnoses Not on filedocumented in this encounter
--- OUTSIDE RECORDS SUMMARY | 2025-07-10 11:07 | XMS_ITS | Clinical Summary ---
Author Organization [employer] Address [address] [place] [address] Phone Care Team Providers Care Supervisor Industrial Arts Education Name Role Phone Unavailable Primary Care Provider [...] patient's age to complete this topic [facility] [employer] MEDICARE
--- OUTSIDE RECORDS SUMMARY | 2025-07-10 11:07 | XMS_ITS | Encounter Summary ---
Author Organization [facility] Address [address] [place] [address] Care Team Providers Care Pulp Roller Name Role Phone Beverly Veronica MD Primary Care Provider [phone]- [phone] Encounter Details Date Type Department Care Team ([facility] Contact Info) Description 07/04/2025 Orders Only [facility] Health Information Management [address] [place] [address] Provider, Abstract NO ADDRESS ON FILE Social [...] on file Legal Sex Male 8:04 PM CASHIER TUBE ROOM Gender Identity Not on file Sexual Orientation Not on file documented as of this encounter Plan of Treatment Upcoming Encounters Date Type Department Care Team ([facility] Contact Info) Description 12/05/2025 2:40 PM CASHIER TUBE ROOM Office Visit [facility] [place] [address] [address] Beverly Veronica MD [address] [phone] documented as of this encounter Procedures Procedure [...] documented as of this encounter Care Teams Pulp Roller Relationship Specialty Start Date End Date Beverly Veroniac MD [address] [phone] PCP - General Family Practice 05/29/25 documented as of this encounter
--- OUTSIDE RECORDS SUMMARY | 2025-07-10 11:07 | XMS_ITS | Encounter Summary ---
Author Organization [facility] Address [address] [place] [address] Care Team Providers Care Jockey Agent Name Role Phone Beverly Veronica MD Primary Care Provider [phone]- [phone] Encounter Details Date Type Department Care Team (Late st Contact Info) Description 06/20/2025 Results Follow-Up [facility] [address] [place] [address] Garry Randolph MD [address] [place] [address] MRI CERVICAL WO CONTRAST Social [...] on file Legal Sex Male 8:04 PM GANG SUPERVISOR Gender Identity Not on file Sexual [...] st Contact Info) Description 12/05/2025 2:40 PM GANG SUPERVISOR Office Visit [facility] [address] [phone] Beverly Veronica MD [address] [phone] documented as of this encounter Visit Diagnoses Not on filedocumented in this encounter Additional Health Concerns Assessment Noted Time PHQ-9 Depression Total Score: 3 05/29/20 25 3:06 PM CDT documented as of this encounter Care Teams Jockey Agent Relationship Specialty Start Date End Date Beverly Veronica MD [address] [phone] PCP - General Family Practice 05/29/25 documented as of this encounter
--- OUTSIDE RECORDS SUMMARY | 2025-07-10 11:07 | XMS_ITS | Encounter Summary ---
Author Organization [place] [facility] [employer], [facility] Address [address] [place] [address] Phone Care Team Providers Care Professional Housing Consultant Name Role Phone Unavailable Primary Care Provider Unavailabl e Encounter Details Date Type Department Care Team (Late st Contact Info) Description 02/15/2025 TCM in Dialysis Clinic [facility] [employer], [facility] [address] [place] [address] Saskia Peterson [employer] [address] [facility] [address] [place] [address] Social History Tobacco Use Types [...] 02/15/2025 The patient was seen for a hgit-sn-bgat visit as part of Transitional Care Management services. 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 COMMENTS: See jennifer 1.0. Also hospitalized at [facility] this week for vol overload and hyperkalemia [...] Reviewed and updated list in p-hub. Current [facility] Outpatient Medications amlodipine 10 mg tablet Take [...] by mouth every night at bedtime. Current [facility] Allergies Allergen: No Known Allergies Allergen: No [...] 99.1*F Current Dialysis Vitals BP Sit: 145/84 AP/CLINICAL NURSE MANAGER: -- Pulse: 88 CARE COORDINATION Post-discharge follow-up [...] Discussed with staff. VISIT DIAGNOSES CPT Code 07548 - High complexity, seen within 7 days [...]
--- OUTSIDE RECORDS SUMMARY | 2025-07-10 11:07 | XMS_ITS | Clinical Summary ---
Author Organization [place] [facility], [facility] Address [address] [place] [address] Phone Care Team Providers Care Solar Installation Foreman Name Role Phone Unavailable Primary Care Provider Unavailabl e Encounters Date Type Department Care Team Description 07/06/2025 Orders Only [place] [facility], [facility] [address] [place] [address] Shahriar Byers MD 07/06/2025 Treatment [facility], [facility] [address] [place] [phone] Saskia Navas NP End stage renal disease; Dependence on renal dialysis 07/05/2025 Orders Only [place] [facility] [address] [place] [address] Shahriar Byers MD 06/20/2025 Orders Only [place] [facility], [facility] [address] [place] [address] Shahriar Byers MD 06/14/2025 Treatment [facility], [facility] [address] [place] [address] Shahriar Byers MD End stage renal disease; Dependence on renal dialysis 06/12/2025 Orders Only [place] [facility], [facility] [address] [place] [address] Shahriar Byers MD 06/05/2025 Orders Only [place] [facility], [facility] [address] [place] [address] Shahriar Byers MD 05/30/2025 Orders Only [facility], [facility] [address] [place] [address] Shahriar Byers MD 05/26/[address] [place], [place] [address]rology [facility], [facility] [address] [place] [address] Saskia Navas, TINO End stage renal disease; Dependence on renal dialysis 05/25/2025 [facility], [facility] [address] [place] [address] Saskia Navas, TINO End stage renal disease; Dependence on renal dialysis 05/23/2025 [facility], [facility] [address] [place] [address] Shahriar Byers MD 05/15/2025 Orders Only [place] [facility], [facility] [address] [place] [address] Shahriar Byers MD 05/10/2025 Orders [facility], [facility] [address] [place] [address] Shahriar Byers MD 05/10/2025 [facility], [facility] [address] [place] [address] Shahriar Byers MD End stage renal disease; Dependence on renal dialysis 05/05/2025 Treatment [facility], [facility] [address] [place] [address] Saskia Nvaas NP End stage renal disease; Dependence on renal dialysis 05/03/2025 Refill [facility], [facility] [address] [place] [address] Jasmin Carson MA 05/01/2025 Orders Only [place] [facility], [facility] [address] [place] [address] Shahriar Byers MD 04/28/2025 Treatment [facility], [facility] [address] [place] [address] Saskia Navas, TINO End stage renal disease; Dependence on renal dialysis 04/24/2025 Orders Only [place] [facility], [facility] [address] [place] [address] Shahriar Byers MD 04/19/2025 Treatment [facility], [facility] [address] [place] [address] Saskia Navas, TINO End stage renal disease; Dependence on renal dialysis 04/18/2025 Orders Only [place] [facility], [facility] [address] [place] [address] Shahriar Byers MD from Last [...] Urea Reduction 44(L) 65 - 80 % [facility] 07/06/2025 07/08/2025 11: 29 AM CDT Narrative SPECTRAE - 07/08/2025 Unless otherwise specified, test(s) performed at: [facility], [address] [place] [address] COTTON DISPATCHER: Ryan Singer M.D. For any questions, please call customer service at FREQUENCY:OTHER Resulting Agency Comment Specimen source: Plasma Shahriar Byers MD LAB BLOOD ORDERABLES Final Result Performing Organization Address [facility] de Phone Number [facility] See order comments or contact performing lab Unknown, [place] * POST CHEMISTRY (07/06/2025) Only the most recent of3 resultswithin the time period is included. BUN Post Dialysis 14 6 - 19 mg/dL [facility] 07/06/2025 07/08/2025 11: 29 AM CDT Narrative [facility] - 07/08/2025 Unless otherwise specified, test(s) performed at: [facility], [address] [place], [place] [id number] COTTON DISPATCHER: Ryan Singer M.D. For any questions, please call customer service at FREQUENCY:OTHER Resulting Agency Comment Specimen source: Plasma Shahriar Byers MD LAB BLOOD ORDERABLES Final Result Performing Organization Address [facility] de Phone Number [facility] See order comments or contact performing lab Unknown, [place] * (ABNORMAL) [facility] (07/06/2025) Only the most recent of6 resultswithin the time period is included. BUN 25(H) 6 - 19 mg/dL [facility] 07/06/2025 07/08/2025 10: 50 AM CDT Narrative [facility] - 07/08/2025 Unless otherwise specified, test(s) performed at: [facility], [address] [place] [id number] COTTON DISPATCHER: Ryan Singer M.D. For any questions, please call customer service at FREQUENCY:OTHER Resulting Agency Comment Specimen source: Serum us Shahriar Byers MD LAB BLOOD ORDERABLES Final Result [facility] See order comments or contact performing [...] 07/06/2025 Unless otherwise specified, test(s) performed at: [facility], [address] [place] [id number] COTTON DISPATCHER: Ryan Singer M.D. For any questions, please call customer service at FREQUENCY:MONTHLY Resulting Agency Comment Specimen source: Blood Shahriar Byers MD LAB BLOOD ORDERABLES Final Result [facility] See order comments or contact performing lab Unknown, [place] * SPECIAL CHEMISTRY (05/30/2025) Vitamin D, 25-OH, Total 45.2 30.0 - 100.0 ng/mL [facility] Comment: Please Note: Effective August 17, 2023, the methodology for this test has changed to the [facility]. 05/30/2025 05/31/2025 10: 40 AM CDT Narrative Resulting Agency Comment Specimen source: Serum Shahriar Byers MD LAB BLOOD BANK TEST O RDERABLES Final Result Performing Organization Address City/[facility]/ZIP Co de Phone Number [facility] See order comments or contact performing lab Unknown, [place] * [facility] Results (05/30/2025) spKt/V Gotch 2.27 [facility] PCR 52.97 [facility] Center eKdrt/V 1.94 Knowledge Center WSTDKT/V 2.8 Knowledge Center spKt/V (Daugirdas II) 2.35 Knowledge Center eKt/V Gotch [facility].[address] [facility] nPCR_HD 1.20 [facility] Center eNPCR 1.06 [facility] Center eKt/V ([place]all) 2.03 [facility] 05/30/2025 05/30/2025 Eduardo Ordering Provider LAB BLOOD ORDERABLES Final Result [facility] Contact Performing lab Unknown, [place] from Last 3 Months Insurance Medicaid [place] ([id number]) [facility] Medicare
--- NOTE | 2025-07-10 11:17 | PC.NURSE ---
PT became very agitated and angry with staff. PT stated to jessica BELLO i want a new nurse your a fucking bitch and a liar. this nurse verbally de-escalated PT and switched PT nurses.
[2025-07-10 11:39] LABS: Hematocrit 24.1 % (37-53); Hemoglobin 7.80 g/dL (11.27-16.99); Mean Corpuscular HGB Conc 32.4 g/dL (30-55); Mean Corpuscular Hemoglobin 30.7 pg (27-33); Mean Corpuscular Volume 94.9 fl (82-101); Nucleated Red Blood Cells % 0 %; Platelet Count 88 10^3/cmm (157-399); Red Blood Count 2.54 10^6/uL (3.85-5.65); White Blood Count 8.31 10^3/uL (3.29-11.43)
--- NOTE | 2025-07-10 11:39 | XR_ITS ---
WS: [id number] Exam: XR chest 1V portable [id number] Date/Time of Exam: 07/10/2025 11:46 AM Reason For Exam: Shortness of breath Comparison 06/27/2025. Diffuse interstitial infiltrates throughout both lungs that may represent interstitial pneumonia or pulmonary edema. Cardiomediastinal silhouette is unremarkable for technique. No pleural effusions or pneumothorax. Normal bony structures. XR/XR chest 1V portable [id number] IMPRESSION: 1. Interstitial infiltrates noted throughout both lungs that may represent inte rstitial pneumonia or pulmonary edema.
[2025-07-10 11:54] LABS: Lactic Sepsis W/Reflex 1.0 mmol/L (0.5-2.2)
[2025-07-10 11:55] LABS: Alanine Aminotransferase 11 U/L (0-41); Albumin Level 4.1 g/dL (3.5-5.2); Alkaline Phosphatase 76 U/L (40-130); Anion Gap 26.7 (5-19); Aspartate Amino Transferase 21 U/L (0-40); Calcium 8.3 mg/dL (8.5-10.5); Carbon Dioxide 21 mmol/L (22-29); Chloride 97 mmol/L (98-107); Creatinine Clr Calc Pharmacy 6.4031; Globulin 1.7 g/dL (1.3-4.6); Glucose 81 mg/dL (65-115); Osmolality Calculated 316 mOsm/kg (285-295); Potassium 5.7 mmol/L (3.5-5.1); Sodium 139 mmol/L (136-145); Total Protein 5.8 g/dL (6.6-8.7)
[2025-07-10 12:01] LABS: Blood Urea Nitrogen 94 mg/dL (6-20)
[2025-07-10] MEDS: labetalol 5 mg/mL SDV 20mL 20 MG IVP (12:27)
[2025-07-10] MEDS: HYDROmorphone 0.5 MG/0.5 ML INJ 1 MG IVP (12:47)
--- NOTE | 2025-07-10 13:08 | PM.CONSULT ---
Providers/Reason For Consult Consulting Physician/Specialty*: [facility]/Nephrology Reason for Consult*: ESRD Primary Care Provider: Beverly Veronica MD History of Present Illness History of Present Illness Vance Sainz is a 24 year old male with past medical history significant for end-stage renal disease on dialysis per TTS schedule schedule, history of substance abuse, depression, anxiety presented to the emergency department due to shortness of breath. Patient missed dialysis on Thursday. In the ER patient was noted to have high blood pressure with initial blood pressures of 220/120, lab data showed hemoglobin of 7.8 and potassium of 5.7, BUN 94 and creatinine of 13.1. Review of Systems Narrative: NEGATIVE Medications/Allergies Home Medications ?Medication ?Instructions ?Recorded ?Confirmed ?Last Taken ?Type labetalol 100 mg tablet 200 mg PO BID 09/11/24 07/10/25 02/12/25 09:00 History clonazepam 1 mg tablet (Klonopin) 1 mg PO BID PRN anxiety #10 tabs 01/09/25 07/10/25 02/12/25 09:00 Rx hydralazine 100 mg tablet 100 mg PO TID 04/05/25 07/10/25 Unknown History sumatriptan 20 mg/actuation nasal 20 mg intranasal Q12H PRN Migraine 04/05/25 07/10/25 Unknown History spray Headache fluoxetine 10 mg capsule 10 mg PO DAILY 06/28/25 07/10/25 07/09/25 History acetaminophen 325 mg tablet 650 mg (2 x 325 mg) PO Q6H PRN 06/29/25 07/10/25 07/09/25 Rx Mild/Mod Pain Or Temp >/= 101 #30 tabs clonidine HCl 0.1 mg tablet 0.2 mg (2 x 0.1 mg) PO TID #90 tabs 06/29/25 07/10/25 07/09/25 Rx divalproex 500 mg tablet,delayed 500 mg PO BID #60 tabs 06/29/25 07/10/25 07/09/25 Rx release losartan 50 mg tablet 50 mg PO DAILY #30 tabs 06/29/25 07/10/25 07/09/25 Rx methocarbamol 750 mg tablet 750 mg PO Q8H PRN muscle spasm #30 07/08/25 07/10/25 07/09/25 Rx tabs nifedipine 30 mg tablet,extended 90 mg PO DAILY 07/10/25 07/10/25 Unknown History release 24 hr Allergies Allergy/AdvReac Type Severity Reaction Status Date / Time NSAIDS (Non-Steroidal Allergy Severe unable to Verified 06/27/25 20:41 Anti-Inflamma take due to kidney disease sertraline (From Zoloft) Allergy Unknown Verified 06/27/25 20:41 PFSH Acute PFSH: Medical History (Updated 07/10/25 @ 13:59 by Kareem Harmon MD) Noncompliance with renal dialysis Adrenal insufficiency Hypoglycemia CKD (chronic kidney disease) stage V requiring chronic dialysis Generalized anxiety disorder Other stimulant dependence, in remission Problems related to lack of adequate sleep Substance abuse Depression Anxiety Surgical History (Updated 07/10/25 @ 13:59 by Kareem Harmon MD) Kidney transplant recipient Social History (Updated 07/10/25 @ 14:01 by Kareem Harmon MD) Smoking and tobacco/nicotine status: tobacco/nicotine user, details unknown e-cigarettes E-Cigarette Details: vaporizer device and with nicotine E-cig/vape details: 6 mg and smokeless tobacco Smokeless tobacco user: chewing tobacco Smokeless tobacco details: 1 can/3 days. Quit status (tobacco/nicotine): has tried quititng Number of times tried to quit tobacco: 4 Second hand smoke exposure: No Alcohol intake: never Substance/Drug Use: current Substance/Drug use frequency: Special occassions/opportunity only Additional social history: Patient uses marijuana 1 g every other day he has remote history of some meth use. He reports chewing tobacco and using nicotine pouches but denies smoking cigarettes. He denies suicidal ideation. Patient is companied by his girlfriend and his CODE STATUS is always been full code confirmed with the patient on 06/05/2025 that he wants full CODE STATUS by Daron Ayala MD Patient admits to THC use Vitals/I&O/Wt Last Vital Signs Temp 97.6 F 07/10/25 11:03 Pulse 87 07/10/25 11:48 Resp 18 07/10/25 11:03 BP 220/120 07/10/25 11:48 Pulse Ox 98 07/10/25 11:48 O2 Del Method Room Air 07/10/25 11:48 Weight last 48 hrs Weight 51.71 kg Physical Exam Narrative: awake , alert , no distress PEERLA + JVD S1S2 RRR Lungs + crackles Abd soft , non tender no edema skin no rash Data 07/11/25 04:15 07/11/25 04:15 Micro: Microbiology 07/10/25 11:21 Blood Culture - Preliminary Blood SPECIMEN COLLECTED 07/10/25 11:19 Blood Culture - Preliminary Blood SPECIMEN COLLECTED A&P Assessment and plan 1. ESRD on dialysis: 2. ESRD on hemodialysis: 1.ESRD:missed HD and now presented with volume overload and hyperkalemia. emergent HD today 2. Hypertension : bP elevated , UF wih hD , resume home medications 3. Hyperkalemia ,, low k diet 4. Anemia : , , will order Epogen 5. metabolic acidosis , should improve with HD Patient seen and examined with a nurse using audiovisual equipment. Patient consented to telehealth and to dialysis. Plan: per medicine PDMP PDMP Reviewed: Not Reviewed Coding Level of Care Code Acute Code for Chg Fwd Diagnoses ESRD on dialysis N18.6; Z99.2 ESRD on hemodialysis N18.6; Z99.2
[2025-07-10 13:41] LABS: Respiratory Syncytial Virus Ce NEGATIVE (Negative); SARS-CoV-2 PCR NEGATIVE (Negative)
--- NOTE | 2025-07-10 13:51 | PM.HP ---
Providers/Chief Complaint Admitting Physician: Dr. Harmon Primary Care Provider: Beverly Veronica MD Chief Complaint: SOB History of Present Illness Vance Sainz is a 24 year old male presenting with SOB and pulmonary congestion after missed dialysis. He has been having difficulty keeping to his dialysis schedule in clinic and has been getting supplemental dialysis at various hospitals. He was at [facility] on Thursday and had dialysis there for 3 hours per patient. He has since had incomplete dialysis 1 or 2 other times and missed Thursday dialysis. He presents now with increased work of breathing and he is coughing up mucus and has increased anxiety. PMHx is significant for kidney transplant which has now been failing for the last 2 years after covid infection. He also has had chronic neck pain. Recently he had an outpatient MRI ordered and he has the disc with him from that, however he has not had follow up with the ordering physician since then. Review of Systems Const: Reports: malaise Eyes: Denies: blurry vision Card: Denies: chest pain or palpitations Resp: Reports: productive cough and chest congestion GI: Denies: abdominal pain, nausea or vomiting : Denies: difficulty urinating Musc: Reports: neck pain Skin/Breast: Denies: rash, pruritus or erythema Neuro: Denies: confusion Psych: Reports: anxiety Medications/Allergies Home Medications ?Medication ?Instructions ?Recorded ?Confirmed ?Last Taken ?Type labetalol 100 mg tablet 200 mg PO BID 09/11/24 06/28/25 02/12/25 09:00 History clonazepam 1 mg tablet (Klonopin) 1 mg PO BID PRN anxiety #10 tabs 01/09/25 06/28/25 02/12/25 09:00 Rx hydralazine 100 mg tablet 100 mg PO TID 04/05/25 06/28/25 Unknown History sumatriptan 20 mg/actuation nasal 20 mg intranasal Q12H PRN Migraine 04/05/25 06/28/25 Unknown History spray Headache fluoxetine 10 mg capsule 10 mg PO DAILY 06/28/25 06/28/25 Unknown History acetaminophen 325 mg tablet 650 mg (2 x 325 mg) PO Q6H PRN 06/29/25 Unknown Rx Mild/Mod Pain Or Temp >/= 101 #30 tabs clonidine HCl 0.1 mg tablet 0.2 mg (2 x 0.1 mg) PO TID #90 tabs 06/29/25 Unknown Rx divalproex 500 mg tablet,delayed 500 mg PO BID #60 tabs 06/29/25 Unknown Rx release losartan 50 mg tablet 50 mg PO DAILY #30 tabs 06/29/25 Unknown Rx methocarbamol 750 mg tablet 750 mg PO Q8H PRN muscle spasm #30 07/08/25 Unknown Rx tabs nifedipine 30 mg tablet,extended 90 mg PO DAILY 07/10/25 07/10/25 Unknown History release 24 hr Allergies Allergy/AdvReac Type Severity Reaction Status Date / Time NSAIDS (Non-Steroidal Allergy Severe unable to Verified 06/27/25 20:41 Anti-Inflamma take due to kidney disease sertraline (From Zoloft) Allergy Unknown Verified 06/27/25 20:41 PFSH Acute PFSH: Medical History (Updated 07/10/25 @ 13:59 by Kareem Harmon MD) Noncompliance with renal dialysis Adrenal insufficiency Hypoglycemia CKD (chronic kidney disease) stage V requiring chronic dialysis Generalized anxiety disorder Other stimulant dependence, in remission Problems related to lack of adequate sleep Substance abuse Depression Anxiety Surgical History (Updated 07/10/25 @ 13:59 by Kareem Harmon MD) Kidney transplant recipient Social History (Updated 07/10/25 @ 14:01 by Kareem Harmon MD) Smoking and tobacco/nicotine status: tobacco/nicotine user, details unknown e-cigarettes E-Cigarette Details: vaporizer device and with nicotine E-cig/vape details: 6 mg and smokeless tobacco Smokeless tobacco user: chewing tobacco Smokeless tobacco details: 1 can/3 days. Quit status (tobacco/nicotine): has tried quititng Number of times tried to quit tobacco: 4 Second hand smoke exposure: No Alcohol intake: never Substance/Drug Use: current Substance/Drug use frequency: Special occassions/opportunity only Additional social history: Patient uses marijuana 1 g every other day he has remote history of some meth use. He reports chewing tobacco and using nicotine pouches but denies smoking cigarettes. He denies suicidal ideation. Patient is companied by his girlfriend and his CODE STATUS is always been full code confirmed with the patient on 06/05/2025 that he wants full CODE STATUS by Daron Ayala MD Patient admits to THC use Other PFSH information: Supplemental PFSH Information: Patient adopted, parents incarcerated. Does not know family history. Vitals/I&O/Wt Last Vital Signs Temp 97.6 F 07/10/25 11:03 Pulse 87 07/10/25 11:48 Resp 18 07/10/25 11:03 BP 220/120 07/10/25 11:48 Pulse Ox 98 07/10/25 11:48 O2 Del Method Room Air 07/10/25 11:48 Weight last 48 hrs Weight 51.71 kg Physical Exam Const: COMMON NORMALS: patient oriented x3 HENMT: COMMON NORMALS: normocephalic (some scabs on scalp that he has picked are bleeding) Eye: COMMON NORMALS: Equal, round and reactive pupils present and EOMs intact bilaterally Lymph: LYMPHATIC: no lymphadenopathy noted Resp: EFFORT & INSPECTION: Yes symmetric chest movement AUSCULTATION: crackles (throughout) Cardio: COMMON NORMALS: no JVD, regular rate, regular rhythm, S1 normal heart sound present, S2 normal heart sound present and No gallops present (Cardio) GI: COMMON NORMALS: Soft to palpation, non-tender and no masses Extremity: COMMON NORMALS: full ROM, no clubbing, cyanosis or edema and no pedal edema Neuro: COMMON NORMALS: patient oriented x3 and CN's II-XII intact bilaterally Psych: ATTITUDE: Yes agitated Data 07/10/25 11:19 07/10/25 11:19 Micro: Microbiology 07/10/25 11:21 Blood Culture - Preliminary Blood SPECIMEN COLLECTED 07/10/25 11:19 Blood Culture - Preliminary Blood SPECIMEN COLLECTED A&P Assessment and plan 1. Kidney transplant failure: 2. Medical non-compliance: 3. Malignant hypertension: 4. Pulmonary edema: 5. ESRD on hemodialysis: Plan: 24 year old male presenting after missed dialysis with pulmonary congestion. ESRD - kidney transplant at young age, now failing, on dialysis about last 2 years - missed or incomplete dialysis over at least the last week, admitted previously for similar issue. - He has been getting dialysis at hospitals rather than his clinic when symptoms become too severe. - per patient had dialysis at [facility] on Thursday, tolerated 3 hours and since and 1 or 2 incomplete dialysis sessions and missed on Thursday. - nephrology consulted for mgmt of dialysis - CXR with interstitial infiltrates - afebrile, no leukocytosis - can start on empiric rocephin Anemia of chronic disease: ESRD - he required blood transfusion about 3 weeks ago, now 7.8. - monitor Hypertensive urgency - 2/2 missed dialysis - cont. home regimen: catapres, labetalol, losartan, nifedipine Anxiety - states he stopped taking clonazepam - cont. fluoxetine - cont. hydralazine Seizure disorder - depakote Chronic neck pain - cont. robaxin - he has had outpatient MRI done, but has yet to follow up for results/recommendations - he had left neck US ordered in March that was negative. - cont. sumatriptan - pain control ordered PPx: heparin Diet: renal Disposition - full code PDMP PDMP Reviewed: Not Reviewed Attestations Medical Necessity Statement*: Admit to observation for missed dialysis Time Spent in Patient Care: Greater than 35 minutes (>than 50% of time spent in counselling and/or direct pt care on unit). Coding Level of Care Code Acute Code for [facility] Diagnoses Kidney transplant failure T86.12 Medical non-compliance Z91.199 Malignant hypertension I10 Pulmonary edema J81.1 ESRD on hemodialysis N18.6; Z99.2
[2025-07-10] MEDS: LORazepam 1 MG/0.5 ML injection IVP (14:41)
[2025-07-10] MEDS: diphenhydrAMINE 50 mg/mL SDV 1mL IVP (15:07)
[2025-07-10] MEDS: hyDRALAzine 20 mg/mL INJ 1 mL 10 MG IVP (16:00)
[2025-07-10] MEDS: HYDROmorphone 0.5 MG/0.5 ML INJ IVP ×3 (16:07→23:46)
--- NOTE | 2025-07-10 17:06 | PC.HD ---
Prior to treatment initiation, verbal orders received from Dr. Hurtado to change dialysate bath from 3k to 2k due to potassium value of 5.7. Also, at 1700, verbal orders received from Dr. Hurtado to increase UF goal from 3L to 3.5L as tolerated.
[2025-07-10] MEDS: divalproex DR 500 mg Tablet PO (18:42)
[2025-07-10] MEDS: cefTRIAXone 1,000 mg SDV 1000 MG IVP (18:50)
[2025-07-11] VITALS (11 sets, daily range): BP systolic 138–224; BP diastolic 88–147; PULSE 64–99; RESP 16–18; TEMP 36.7–37.3; O2SAT 95–98
[2025-07-11] MEDS: HYDROmorphone 0.5 MG/0.5 ML INJ IVP ×4 (04:11→19:20)
[2025-07-11 04:52] LABS: Hematocrit 23.9 % (37-53); Hemoglobin 7.80 g/dL (11.27-16.99); Mean Corpuscular HGB Conc 32.6 g/dL (30-55); Mean Corpuscular Hemoglobin 31.1 pg (27-33); Mean Corpuscular Volume 95.2 fl (82-101); Nucleated Red Blood Cells % 0 %; Platelet Count 94 10^3/cmm (157-399); Red Blood Count 2.51 10^6/uL (3.85-5.65); White Blood Count 6.51 10^3/uL (3.29-11.43)
[2025-07-11 05:34] LABS: Anion Gap 20.9 (5-19); Blood Urea Nitrogen 43 mg/dL (6-20); Calcium 8.6 mg/dL (8.5-10.5); Carbon Dioxide 25 mmol/L (22-29); Chloride 101 mmol/L (98-107); Creatinine Clr Calc Pharmacy 10.8920; Glucose 87 mg/dL (65-115); Magnesium 2.5 mg/dL (1.7-2.3); Osmolality Calculated 304 mOsm/kg (285-295); Potassium 4.9 mmol/L (3.5-5.1); Sodium 142 mmol/L (136-145)
[2025-07-11] MEDS: divalproex DR 500 mg Tablet PO ×2 (09:38→17:51)
[2025-07-11] MEDS: NIFEdipine ER (24 hr) 30 mg Tablet 90 MG PO (09:39)
--- NOTE | 2025-07-11 11:08 | PC.CHAP ---
Pastoral Care Encounter/Spiritual Assessment Type of Contact [] Declined home attendant visit [] Patient/Family/Request visit [] Outpatient visit [] Follow-up visit [] Physician referral [] Code/Alert [x] Routine visit [] Staff referral [] Actively dying [] Patient sleeping [x] Family support [] [] Out of room [] Palliative care [] [] Receiving care in room [] Pre-surgical visit [] Trauma [] Long length of stay [] ICU visit [] Other: Relational/Emotional Strength [x] Patient feels connected with others/family/visitors/staff [] Distress [] Loneliness/isolation [] Abandonment Spirituality of Patient [x] Person of Dee [x] Attends Religious of their Dee [x] Believes in Prayer [x] Reads Bible or Faith materials [] There are Spiritual issues to be addressed Rock Climbing Instructor Interventions [x] Prayer [x] Active listening [x] Non-anxious presence [x] Spiritual/emotional support [] Crisis/trauma care [] Spiritual counseling [] Bereavement support [] Provided bereavement packet [] Provided Bible/devotional materials [] Provided toy/stuffed animal, coloring book to patient or family member [] Provided Communion [] Anointing/[place] [] Salvation [xxxxxxxxxxxxxxxxxxxxxxxx] Completed spiritual assessment [] Other: Impact on Illness or Injury [] Angry [] Fearful [] Anxious [] Often cries [] Exhaustion [] Unable to work [] Unable to attend yazidi [] Unable to walk/stand [] Unable to read [] Unable to drive [] Unable to eat/drink [] Unable to sleep [] Unable to be with family [] Patient intubated [] Other: Summary Time spent with patient 5 min
--- NOTE | 2025-07-11 12:42 | PM.PN ---
Subjective Subjective: BP remains high c/o pain and anxiety s/p HD yesterday Medications: Reviewed: Yes Vitals/I&O/Wt Last Vital Signs Temp 98.2 F 07/11/25 11:12 Pulse 70 07/11/25 11:12 Resp 16 07/11/25 11:12 BP 198/121 07/11/25 11:12 Pulse Ox 98 07/11/25 11:12 O2 Del Method Room Air 07/11/25 11:12 07/10/25 07/11/25 07/11/25 22:59 06:59 14:59 Intake Total 300 / 300 Output Total 3350 / 3350 200 / 3550 Balance -3050 / -3050 -200 / -3250 Weight last 48 hrs Weight 47.899 kg Weight 50 kg Weight 51.71 kg Weight 51.71 kg Physical Exam Narrative: awake , alert , no distress PEERLA + JVD S1S2 RRR Lungs + crackles Abd soft , non tender no edema skin no rash Data 07/11/25 04:15 07/11/25 04:15 Micro: Microbiology 07/10/25 11:19 Blood Culture - Preliminary Blood NEGATIVE TO DATE 07/10/25 11:21 Blood Culture - Preliminary Blood NEGATIVE TO DATE A&P Assessment and plan 1. ESRD on dialysis: 2. ESRD on hemodialysis: 1.ESRD:missed HD and presented with volume overload and hyperkalemia. emergent HD yesterday and HD again today 2. Hypertension : bP elevated , UF wih hD , resumed home medications 3. Hyperkalemia ,, low k diet 4. Anemia : ,s/p Epogen 5. metabolic acidosisimproved, with HD Patient seen and examined with a nurse using audiovisual equipment. Patient consented to telehealth and to dialysis. Plan: per medicine PDMP PDMP Reviewed: Not Reviewed Attestations Medical Necessity Statement*: per [facility] Coding Level of Care Code Acute Code for [facility] Fwd Diagnoses ESRD on dialysis N18.6; Z99.2 ESRD on hemodialysis N18.6; Z99.2
[2025-07-11] MEDS: LORazepam 1 MG/0.5 ML injection IVP (13:24)
--- NOTE | 2025-07-11 14:13 | P.PN_ITS ---
Subjective 2 Subjective: Breathing better today, lungs less congested. Vitals/I&O/Wt Last Vital Signs Temp 98.2 F 07/11/25 11:12 Pulse 70 07/11/25 11:12 Resp 16 07/11/25 11:12 BP 198/121 07/11/25 11:12 Pulse Ox 98 07/11/25 11:12 O2 Del Method Room Air 07/11/25 11:12 07/10/25 07/11/25 07/11/25 22:59 06:59 14:59 Intake Total 300 / 300 240 / 240 Output Total 3350 / 3350 200 / 3550 Balance -3050 / -3050 -200 / -3250 240 / 240 Weight last 48 hrs Weight 47.899 kg Weight 50 kg Weight 51.71 kg Weight 51.71 kg Physical Exam 2 Narrative: Physical Exam Const: patient oriented x 3 HENMT: normocephalic: yahaira e scabs on scalp t hat he has picked are bleeding Eye: Equal, round and r eactive pupils pre sent and EOMs inta ct bilaterally Lymph: no lymphadenopathy noted Resp: symmetric chest mo vement AUSCULTATI ON: relatively eva ar with minimal cr ackles Cardio: no JVD, regular ra te, regular rhythm , S1 normal heart sound present, S2 normal heart sound present and No ga llops present GI: Soft to palpation, non-tender and no masses Extremity: full ROM, no clubb ing, cyanosis or e urbano and no pedal edema Neuro: patient oriented x 3 and CN's II-XII intact bilaterally Psych: ATTITUDE: Yes agit ated Data 07/11/25 04:15 07/11/25 04:15 Micro: Microbiology 07/10/25 11:19 Blood Culture - Preliminary Blood NEGATIVE TO DATE 07/10/25 11:21 Blood Culture - Preliminary Blood NEGATIVE TO DATE A&P Assessment and plan 1. Kidney transplant failure: 2. Medical non-compliance: 3. Malignant hypertension: 4. Pulmonary edema: Plan: 24 year old male presenting after missed dialysis with pulmonary congestion. ESRD - kidney transplant at young age, now failing, on dialysis about last 2 years - missed or incomplete dialysis over at least the last week, admitted previously for similar issue. - He has been getting dialysis at hospitals rather than his clinic when symptoms become too severe. - per patient had dialysis at [facility] on Thursday, tolerated 3 hours and since and 1 or 2 incomplete dialysis sessions and missed on Thursday. - nephrology consulted for mgmt of dialysis - CXR with interstitial infiltrates - afebrile, no leukocytosis - can start on empiric rocephin - had emergent HD yesterday per nephrology, again today Anemia of chronic disease: ESRD - he required blood transfusion about 3 weeks ago, now 7.8. - epogen per nephrology - monitor Hypertensive urgency - 2/2 missed dialysis - cont. home regimen: catapres, labetalol, losartan, nifedipine - IV labetalol PRN - HTN will be very difficult to control until he is consistent with dialysis. Anxiety - states he stopped taking clonazepam - cont. fluoxetine - cont. hydralazine Seizure disorder - depakote Chronic neck pain - cont. robaxin - he has had outpatient MRI done, but has yet to follow up for results/recommendations - we can request the radiology interpretation. - he had left neck US ordered in March that was negative. - cont. sumatriptan - pain control ordered PPx: heparin Diet: renal Disposition - full code - dialysis PDMP PDMP Reviewed: Not Reviewed Attestations 2 Medical Necessity Statement*: Observation for missed dialysis, fluid overload Time Spent in Patient Care: 16 - 35 minutes (>than 50% of time sp ent in counselling and/or direct pt care on unit) . Coding Level of Care Code Acute Code for [facility] Diagnoses Kidney transplant failure T86.12 Medical non-compliance Z91.199 Malignant hypertension I10 Pulmonary edema J81.1
[2025-07-11] MEDS: diphenhydrAMINE 50 mg/mL SDV 1mL IVP (15:26)
[2025-07-11] MEDS: heparin, porcine 1,000 unit/mL INJ 10 mL 1000 UNIT IV (15:27)
[2025-07-11] MEDS: cefTRIAXone 1,000 mg SDV 1000 MG IVP (17:50)
[2025-07-12] VITALS: BP 148/105; PULSE 74; RESP 16; TEMP 36.5; O2SAT 98
[2025-07-12] MEDS: HYDROmorphone 0.5 MG/0.5 ML INJ IVP ×4 (00:15→11:13)
[2025-07-12 01:00] VITALS: BP 135/85; PULSE 72; RESP 17; TEMP 36.5; O2SAT 96
[2025-07-12 04:00] VITALS: BP 160/104; PULSE 71; RESP 18; TEMP 36.8; O2SAT 98
[2025-07-12 04:24] LABS: Hematocrit 23.2 % (37-53); Hemoglobin 7.40 g/dL (11.27-16.99); Mean Corpuscular HGB Conc 31.9 g/dL (30-55); Mean Corpuscular Hemoglobin 30.1 pg (27-33); Mean Corpuscular Volume 94.3 fl (82-101); Nucleated Red Blood Cells % 0 %; Platelet Count 103 10^3/cmm (157-399); Red Blood Count 2.46 10^6/uL (3.85-5.65); White Blood Count 3.96 10^3/uL (3.29-11.43)
[2025-07-12 04:50] LABS: Anion Gap 20.3 (5-19); Blood Urea Nitrogen 33 mg/dL (6-20); Calcium 8.5 mg/dL (8.5-10.5); Carbon Dioxide 28 mmol/L (22-29); Chloride 98 mmol/L (98-107); Creatinine Clr Calc Pharmacy 14.9475; Glucose 89 mg/dL (65-115); Magnesium 2.3 mg/dL (1.7-2.3); Osmolality Calculated 299 mOsm/kg (285-295); Potassium 5.3 mmol/L (3.5-5.1); Sodium 141 mmol/L (136-145)
[2025-07-12] MEDS: divalproex DR 500 mg Tablet PO (05:33)
[2025-07-12 07:37] VITALS: BP 185/122; PULSE 71; RESP 16; TEMP 36.5; O2SAT 98
[2025-07-12 07:38] VITALS: BP 185/122
[2025-07-12] MEDS: NIFEdipine ER (24 hr) 30 mg Tablet 90 MG PO (07:38)
--- NOTE | 2025-07-12 10:05 | P.PN_ITS ---
Subjective 2 Subjective: s/p HD yesterday Medications: Reviewed: Yes Vitals/I&O/Wt Last Vital Signs Temp 97.7 F 07/12/25 07:37 Pulse 71 07/12/25 07:37 Resp 16 07/12/25 07:37 BP 185/122 07/12/25 07:38 Pulse Ox 98 07/12/25 07:37 O2 Del Method Room Air 07/12/25 07:37 07/11/25 07/12/25 07/12/25 22:59 06:59 14:59 Intake Total 980 / 1220 480 / 480 Output Total 2842 / 2842 Balance -1862 / -1622 480 / 480 Weight last 48 hrs Weight 45.767 kg Weight 46.8 kg Weight 47.899 kg Weight 50 kg Weight 51.71 kg Weight 51.71 kg Physical Exam 2 Narrative: awake , alert , no distress PEERLA + JVD S1S2 RRR Lungs + crackles Abd soft , non tender no edema skin no rash Data 07/12/25 04:00 07/12/25 04:00 Micro: Microbiology 07/10/25 11:19 Blood Culture - Preliminary Blood NEGATIVE TO DATE 07/10/25 11:21 Blood Culture - Preliminary Blood NEGATIVE TO DATE A&P Assessment and plan 1. ESRD on dialysis: 2. ESRD on hemodialysis: 1.ESRD:missed HD and presented with volume overload and hyperkalemia. emergent HD thursday and thursday 2. Hypertension : bP elevated , UF wih hD , resumed home medications 3. Hyperkalemia ,, low k diet , ordered Kayexylate , asked to take lokelma @ home 4. Anemia : ,s/p Epogen 5. metabolic acidosis -improved, with HD Patient seen and examined with a nurse using audiovisual equipment. Patient consented to telehealth and to dialysis. Plan: per medicine PDMP PDMP Reviewed: Not Reviewed Attestations 2 Medical Necessity Statement*: per medicine Coding Level of Care Code Acute Code for [facility] Diagnoses ESRD on dialysis N18.6; Z99.2 ESRD on hemodialysis N18.6; Z99.2
--- NOTE | 2025-07-12 10:47 | P.DS_ITS ---
Discharge Providers Date of Admission: 07/10/25 14:38 Date of Discharge: July 12, 2025 Attending Provider at Admission: Kareem Harmon MD Attending Provider at Discharge: Kareem Harmon MD Primary Care Provider: Beverly Veronica MD Diagnoses at Discharge Discharge Diagnosis 1. ESRD on dialysis: 2. ESRD on hemodialysis: Reason for Visit Reason for Visit: SOB Hospital Course Hospital Course 24 year old male presenting after missed dialysis with pulmonary congestion. ESRD - kidney transplant at young age, now failing, on dialysis about last 2 years - missed or incomplete dialysis over at least the last week, admitted previously for similar issue. - He has been getting dialysis at hospitals rather than his clinic when symptoms become too severe. - per patient had dialysis at [facility] on Thursday, tolerated 3 hours and since and 1 or 2 incomplete dialysis sessions and missed on Thursday. - nephrology consulted for mgmt of dialysis - CXR with interstitial infiltrates - afebrile, no leukocytosis - can start on empiric rocephin - had emergent HD on 07/10 and again on 07/11 per nephrology - cont. dialysis at outpatient center. Anemia of chronic disease: ESRD - he required blood transfusion about 3 weeks ago, now 7.8. - epogen per nephrology - monitor Hyperkalemia - given kayexylate, lokelma for home Hypertensive urgency - 2/2 missed dialysis - cont. home regimen: catapres, labetalol, losartan, nifedipine - IV labetalol PRN - HTN will be very difficult to control until he is consistent with dialysis. Anxiety - states he stopped taking clonazepam - cont. fluoxetine - cont. hydralazine Seizure disorder - depakote Chronic neck pain - cont. robaxin - he has had outpatient MRI done, but has yet to follow up for results/recommendations - we can request the radiology interpretation. - he had left neck US ordered in March that was negative. - cont. sumatriptan - pain control ordered - follow up as outpatient with ordering physician for results/recommendations. PPx: heparin Diet: renal Disposition - full code - cont. scheduled dialysis at designated dialysis center Physical Exam Narrative: Physical Exam Const: patient oriented x 3, HENMT: normocephalic: some scabs on scalp that he has picked are bleeding/scabbed over. Eye: Equal, round and reactive pupils present and EOMs intact bilaterally Lymph: no lymphadenopathy noted Resp: symmetric chest movement AUSCULTATION: relatively clear with minimal crackles Cardio: no JVD, regular rate, regular rhythm, S1 normal heart sound present, S2 normal heart sound present and No gallops present GI: Soft to palpation, non-tender and no masses Extremity: full ROM, no clubbing, cyanosis or edema and no pedal edema Neuro: patient oriented x 3 and CN's II-XII intact bilaterally Psych: ATTITUDE: Yes agitated Discharge Data Studies Completed and Pending Completed Studies During Hospitalization Category Date Time Status XR chest 1V portable [id number] Stat Exams 07/10/25 11:39 Completed Pending at discharge Category Date Time Status Blood Culture Stat Lab 07/10/25 11:21 Results Potassium Routine Lab 07/12/25 11:04 Ordered Radiology Impressions Chest X-Ray 07/10/25 11:39 IMPRESSION: 1. Interstitial infiltrates noted throughout both lungs that may represent interstitial pneumonia or pulmonary edema. Laboratory Results WBC 3.96 10^3/uL (3.29-11.43) 07/12/25 04:00 RBC 2.46 10^6/uL (3.85-5.65) L 07/12/25 04:00 Hgb 7.40 g/dL (11.27-16.99) L 07/12/25 04:00 Hct 23.2 % (37-53) L 07/12/25 04:00 MCV 94.3 fl (82-101) 07/12/25 04:00 MCH 30.1 pg (27-33) 07/12/25 04:00 MCHC 31.9 g/dL (30-55) 07/12/25 04:00 RDW 14.5 % (12.1-15.1) 07/12/25 04:00 Plt Count 103 10^3/cmm (157-399) L 07/12/25 04:00 MPV 10.7 fL (7.4-10.4) H 07/12/25 04:00 Neut % (Auto) 47.6 % 07/12/25 04:00 Lymph % (Auto) 22.2 % 07/12/25 04:00 [place] % (Auto) 24.7 % 07/12/25 04:00 Eos % (Auto) 4.0 % 07/12/25 04:00 Baso % (Auto) 1.0 % 07/12/25 04:00 Neut # (Auto) 1.88 10^3/uL (1.8-7.7) 07/12/25 04:00 Lymph # (Auto) 0.9 10^3/uL (0.8-4.8) 07/12/25 04:00 [place] # (Auto) 1.0 10^3/uL (0.2-0.9) H 07/12/25 04:00 Eos # (Auto) 0.2 10^3/uL (0.0-0.8) 07/12/25 04:00 Baso # (Auto) 0.0 10^3/uL (0.0-0.1) 07/12/25 04:00 Nucleated RBC % (auto) 0 % 07/12/25 04:00 Nucleated RBCs # 0.0 /100WBC 07/12/25 04:00 Sodium 141 mmol/L (136-145) 07/12/25 04:00 Potassium 5.3 mmol/L (3.5-5.1) H 07/12/25 04:00 Chloride 98 mmol/L (98-107) 07/12/25 04:00 Carbon Dioxide 28 mmol/L (22-29) 07/12/25 04:00 Anion Gap 20.3 (5-19) H 07/12/25 04:00 BUN 33 mg/dL (6-20) H 07/12/25 04:00 Creatinine 5.4 mg/dL (0.7-1.2) H 07/12/25 04:00 GFR Calculation 13.1 mL/min (90-130) L 07/12/25 04:00 Glucose 89 mg/dL (65-115) 07/12/25 04:00 Calculated Osmolality 299 mOsm/kg (285-295) H 07/12/25 04:00 Lactic Acid 1.0 mmol/L (0.5-2.2) 07/10/25 11:19 Calcium 8.5 mg/dL (8.5-10.5) 07/12/25 04:00 Phosphorus 5.2 mg/dL (2.5-4.5) H 07/12/25 04:00 Magnesium 2.3 mg/dL (1.7-2.3) 07/12/25 04:00 Total Bilirubin 0.2 mg/dL (0.15-1.2) 07/10/25 11:19 AST 21 U/L (0-40) 07/10/25 11:19 ALT 11 U/L (0-41) 07/10/25 11:19 Alkaline Phosphatase 76 U/L (40-130) 07/10/25 11:19 C-Reactive Protein 3.0 mg/L (0.0-4.9) 07/10/25 11:19 Total Protein 5.8 g/dL (6.6-8.7) L 07/10/25 11:19 Albumin 4.1 g/dL (3.5-5.2) 07/10/25 11:19 Globulin 1.7 g/dL (1.3-4.6) 07/10/25 11:19 Influenza A (PCR) Negative (Negative) 07/10/25 12:51 Influenza Type B (PCR) Negative (Negative) 07/10/25 12:51 RSV (PCR) Negative (Negative) 07/10/25 12:51 SARS-CoV-2 (PCR) Negative (Negative) 07/10/25 12:51 Vitals Last Vital Signs Temp 97.7 F 07/12/25 07:37 Pulse 71 07/12/25 07:37 Resp 16 07/12/25 07:37 BP 185/122 07/12/25 07:38 Pulse Ox 98 07/12/25 07:37 O2 Del Method Room Air 07/12/25 07:37 Discharge Plan Discharge Patient Disposition: Home Condition: Stable Prescriptions: New oxycodone 5 mg tablet 5 mg PO Q6H PRN (Reason: pain) Qty: 14 0RF cefdinir 300 mg capsule 300 mg PO BID 5 Days Qty: 10 0RF Lokelma 5 gram powder in packet 5 g PO DAILY Qty: 11 2RF Continued sumatriptan 20 mg/actuation spray,non-aerosol 20 mg INTRANASAL Q12H PRN (Reason: Migraine Headache) hydralazine 100 mg tablet 100 mg PO TID nifedipine 30 mg tablet extended release 24hr 90 mg PO DAILY labetalol 100 mg tablet 200 mg PO BID clonazepam [Klonopin] 1 mg tablet 1 mg PO BID PRN (Reason: anxiety) Qty: 10 0RF fluoxetine 10 mg capsule 10 mg PO DAILY acetaminophen 325 mg Tablet 650 mg PO Q6H PRN (Reason: Mild/Mod Pain Or Temp >/= 101) Qty: 30 0RF losartan 50 mg Tablet 50 mg PO DAILY Qty: 30 0RF clonidine HCl 0.1 mg Tablet 0.2 mg PO TID Qty: 90 0RF divalproex 500 mg Tablet,Delayed Release (Dr/Ec) 500 mg PO BID Qty: 60 0RF methocarbamol 750 mg tablet 750 mg PO Q8H PRN (Reason: muscle spasm) Qty: 30 0RF Discharge Order = DC NOW: Discharge Order (Routine); Ordered 07/12/25 Ordered By: Kareem Harmon Referrals: [facility] [Outside] [facility]) [Outside] Referral Note: If you are having difficulty with transportation to dialysis this may be an option to assist w/ transportation. Reilly Ring [Referring, Family Practice] - 07/14/25 11:00 am Patient Instructions: Oxycodone/Acetaminophen (By mouth), Cefdinir (By mouth) (Omnicef), Pulmonary Edema (DC), End Stage Kidney Disease (DC), Opioid Safety, Patient Portal & [facility] Instructions Discharge Attestations Time Spent in Discharge Care*: greater than 30 min Specific Discharge Activities: educating patient, educating and/or supporting family/caregiver, discussing with pcp/other providers, discussing with child welfare caseworker/social workers/dc planners, documenting/other paperwork and evaluating patient/reviewing data Status at Discharge: Behavioral status at discharge: cooperative , Quality Metrics Clinical Quality Measures [ No reported AMI, CVA or VTE this stay] Coding Level of Care Code Acute Code for [facility]g Fwd Diagnoses ESRD on dialysis N18.6; Z99.2 ESRD on hemodialysis N18.6; Z99.2
[2025-07-12 11:10] LABS: Potassium 5.0 mmol/L (3.5-5.1)
== END 2025-07-12 11:29 | disposition home or self-care (01) ==
LOC: ER 12:40 → ER IP 14:39 → MEDSURG 14:42
PROVIDERS: Hospitalist; Admitting Provider Internal Medicine; Emergency Provider Emergency Medicine; PCP Family Medicine; Visit Provider Internal Medicine
DX: I12.0 Hypertensive chronic kidney disease with stage 5 chronic kidney disease or end stage renal disease (principal); N18.6 End stage renal disease; Z99.2 Dependence on renal dialysis; D63.1 Anemia in chronic kidney disease; E87.5 Hyperkalemia; G40.909 Epilepsy, unspecified, not intractable, without status epilepticus; J81.1 Chronic pulmonary edema; T86.12 Kidney transplant failure; Y84.8 Other medical procedures as the cause of abnormal reaction of the patient, or of later complication, without mention of misadventure at the time of the procedure; E16.2 Hypoglycemia, unspecified; F41.8 Other specified anxiety disorders; F17.290 Nicotine dependence, other tobacco product, uncomplicated
CPT/HCPCS: 36415; 71045; 80048; 80053; 83605; 83735; 84100; 84132; 85025; 86140; 87040; 87637; 90935; 93005; 96372; 96374; 96375; 96376; 99285; G0378; J0360; J0696; J1171; J1200; J1644; J2060; J3490; J9999; Q3014; Q5105

== ENCOUNTER 2025-07-17 14:10 | Inpatient (IN) | payer OTHER, MEDICAID, SELFPAY ==
--- OUTSIDE RECORDS SUMMARY | 2025-07-14 11:20 | XMS_ITS | Encounter Summary ---
Author Organization [facility] Address [address] [place] [address] Care Team Providers Care Registration Representative Name Role Phone Beverly Veronica MD Primary Care Provider +1- [phone] Reason for Visit * Reason Comments ER Follow Up Encounter Details Date Type Department Care Team ([facility] st Contact Info) Description 07/14/2025 11:20 AM CDT Office Visit [address] [address] Beverly Veronica MD [address] [place] [phone] Acute pulmonary edema (CMS/HCC) (Primary Dx); Abscess; ESRD (end stage renal disease) (CMS/HCC); Chronic neck pain; Refused influenza vaccine Social History Tobacco Use Types Packs/Day Years [...] on file Legal Sex Male 8:04 PM GRAB HOOKER Gender Identity Not on file Sexual Orientation Not on file documented as of this encounter Last Filed Vital Signs Vital Sign Reading Time Taken Comments Blood Pressure 138/86 07/14/2025 11:21 AM CDT Pulse 77 07/14/2025 11:21 AM CDT Temperature 36.7 C (98.1 F) 07/14/2025 11:21 AM CDT Respiratory Rate 18 07/14/2025 11:21 AM CDT Oxygen Saturation 98% 07/14/2025 11:21 AM CDT Inhaled Oxygen Concentration - - Weight 47.4 kg (104 lb 9.6 oz) 07/14/2025 11:21 AM CDT Height 154.9 cm (5' 1 ) 07/14/2025 11:21 AM CDT Body Mass Index 19.76 07/14/2025 11:21 AM CDT documented in this encounter Progress Notes * Beverly Veronica MD - 07/14/2025 11:22 AM CDT Images from the original note were not included. HISTORY OF PRESENT ILLNESS Vance Sainz, a 25 y.o. male presents with a Chief Complaint of ER Follow Up Subjective Here today for ER follow up Taken to [facility] ER via ambulance on Thursday with pulmonary edema and HTN, emergency HD both days, had missed the weekend before [place] the Thursday before in ER and discharge to home No [place] or most recent [facility] admission records available for review today Left groin spots Bilateral ear lobe cysts that drain and won't go away Patient Active Problem List Diagnosis Code Seizure disorder ([facility]) G40.909 PRES (posterior reversible encephalopathy syndrome) I67.83 Hypertensive emergency I16.1 ESRD (end stage renal disease) ([facility]) N18.6 History of renal transplant Z94.0 Cannabis [...] F43.10 Secondary hyperparathyroidism of renal origin N25.81 Ex-smoker Z87.891 REVIEW OF SYSTEMS Review of Systems Constitutional: Negative for activity change, appetite change, chills and fatigue. HENT: Negative. Respiratory: Negative for cough and shortness of breath. Cardiovascular: Negative. Gastrointestinal: Negative for abdominal pain, constipation, diarrhea, nausea and vomiting. Genitourinary: Negative. Musculoskeletal: Negative. Skin: Negative. Neurological: Negative. Psychiatric/Behavioral: Negative. Objective PHYSICAL EXAM BP 138/86 Pulse 77 Temp 98.1 ??F (36.7 ??C) (Temporal) Resp 18 Ht 5' 1 (1.549 m) Wt 47.4kg (104 lb 9.6 oz) SpO2 98% BMI 19.76 kg/m?? Physical Exam Vitals reviewed. Constitutional: General: He is not in acute distress. Appearance: Normal appearance. HENT: Head: Normocephalic and atraumatic. Comments: No cysts appreciated today in either ear lobe Nose: Nose normal. Eyes: Extraocular Movements: Extraocular [...] soft. Tenderness: There is no abdominal tenderness. Genitourinary: Comments: Induration, no erythema/warmth/fluctuance Skin: General: Skin is warm and dry. Neurological: General: No focal deficit present. Mental Status: He is alert and oriented to person, place, and time. Psychiatric: Mood and Affect: Mood normal. Behavior: Behavior normal. Behavior is cooperative. No results found for any visits on 07/14/25 (from the past 24 hours). Assessment ASSESSMENT and PLAN: ICD-10-CM ICD-9-CM 1. Acute pulmonary edema (CMS/HCC) J81.0 518.4 Resolved s/p HD CTAB Will review records once/if recieved 2. Abscess L02.91 682.9 Improving from exam today May use NIYAH and monitor Precautiosn given 3. ESRD (end stage renal disease) ([facility]) N18.6 585.6 Stable Cont HD Not currently on the transplant list 4. Chronic neck pain M54.2 723.1 G89.29 338.29 Reviewed MRI Pain managment managing 5. Refused influenza vaccine Z28.21 V64.06 Beverly Veronica MD Outpatient Medications Marked as Taking for the 07/14/25 encounter (Office Visit) with Desiree Veronica MD Medication Sig Dispense Refill cefdinir (OMNICEF) 300 mg capsule Take 1 Capsule by mouth 2 times daily. divalproex (DEPAKOTE) 500 mg delayed release tablet Take 1 Tablet by mouth 2 times daily. HYDROcodone-acetaminophen (NORCO) 5-325 mg tablet TAKE 1 TO 2 TABLETS ORALLY EVERY 6 HOURS vit B,I-WL-vbxz-selen-vit D3-E (RenaPlex-D) 800 mcg-12.5 mg -2,000 unit [...] tablet Take 5 mg by mouth daily. documented in this encounter Plan of Treatment Upcoming Encounters Date Type Department Care Team (Late st Contact Info) Description 12/05/2025 2:40 PM GRAB HOOKER Office Visit [address] [address] Beverly Veronica MD [address] [address] documented as of this encounter Visit Diagnoses Diagnosis Acute pulmonary edema (CMS/HCC)- Primary Acute edema of lung, unspecified Abscess Cellulitis and abscess of unspecified site ESRD (end stage renal disease) End stage renal disease Chronic neck pain Cervicalgia Refused influenza vaccine Vaccination not carried out because of patient refusal documented in this encounter Additional Health Concerns Assessment Noted Time PHQ-9 Depression Total Score: 3 05/29/20 3:06 PM CDT documented as of this encounter Care Teams Registration Representative Relationship Specialty Start Date End Date Beverly Veronica MD [address] [place] [phone] PCP - General Family Practice 05/29/25 documented as of this encounter
[2025-07-17] VITALS (82 sets, daily range): BP systolic 141–218; BP diastolic 92–149; PULSE 76–128; RESP 11–36; TEMP 36.4–37.1; O2SAT 93–100; BMI 20.7
--- NOTE | 2025-07-17 14:12 | XR_ITS ---
WS: [id number] XR chest 1V portable [id number] REASON FOR EXAM: dyspnea/cough FINDINGS: Compared to the previous examination of 07/10/2025, improvement in the bilateral reticular and groundglass lung opacities with moderate remaining residual bilaterally. No other interval change or new finding. XR/XR chest 1V portable [id number] IMPRESSION: Presumed improving pneumonitis as above.
--- OUTSIDE RECORDS SUMMARY | 2025-07-17 14:22 | XMS_ITS | Encounter Summary ---
Author Organization [facility] Address [address] [address] Phone Care Team Providers Care Tiedown Operator Name Role Phone Unavailable Primary Care Provider Unavailabl e Reason for Visit * Reason Comments Med Refill Encounter Details Date Type Department Care Team (Late st Contact Info) Description 04/14/2024 Refill [facility] [address] [facility] [address] [place] [address] Shahriar Byers MD [address] [address] Social History Tobacco Use Types [...]
--- OUTSIDE RECORDS SUMMARY | 2025-07-17 14:22 | XMS_ITS | Encounter Summary ---
Author Organization [facility], [facility] Address [address] [place] [address] Phone Care Team Providers Care Valve Maker Name Role Phone Unavailable Primary Care Provider Unavailabl e Encounter Details Date Type Department Care Team (Late st Contact Info) Description 20[address] [facility] [address] [place] [address] Shahriar Byers MD [address] [facility] [address] [facility] [address] [place] [address] End stage renal disease; Dependence on renal dialysis Social History Tobacco Use Types Packs/Day Years Used Date Smoking Tobacco: Never Assessed Sex and Gender Information Value Date Recorded Sex Assigned at Not on file Legal Sex Male 12:34 PM EST Gender Identity Not on file Sexual Orientation Not on file documented as of this encounter Miscellaneous Notes * Dialysis Note - Shahriar Byers MD - 2025 12:00 AM CDT Patient: Vance Sainz, 2000, 25y, M Dialysis Location: [place] Attending Senior Wealth Advisor: Shahriar Byers Service Date: 2025 Service Provider: Shahriar Byers MD I met face to face with the patient today. 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 again stressed best health outcomes with 3x/wk treatments. Knows risk of missed Hd treatments. States he is going to work on doing better going forward. Medications and labs reviewed. HOME MEDICATIONS Home Medications: labetalol 100 mg, by mouth, Take 1 tablet twice a day losartan 50 mg, by mouth, 1 tablet once a day clonidine HCl tablet, 2-3 times daily trazodone 50 mg, by mouth, Take 1 [...] C (vitamin b comp and c no.3) 90-13-85-5-300 mg, by mouth, 1 capsule once a day clonazepam 1 mg, by mouth, Take 1 tablet twice a day as directed hydralazine 100 mg, by mouth, Take 1 tablet three times a day for high blood pressure RenaPlex-D (vit b,f-zq-jcbw-selen-vit d3-e) 800 mcg-12.5 mg-2,000 unit, by mouth, [...] No Known Allergies LAST HOSPITALIZATION Discharge Diagnosis: J81.0 Acute pulmonary edema E87.70 Fluid overload, unspecified E87.5 Hyperkalemia Admission Date 07/10/25 Discharge Date 07/12/25 TRANSPLANT Comments: working on getting listed for transplant, but needs better compliance. DIALYSIS PRESCRIPTION IHD 3x Week Start date: 06/22/25 Dialyzer: 180NRe Optiflux BFR: 400 DFR: Autoflow 2 Potassium: 2.0 Sodium: 137 EDW: 45 Duration: 3:45 Calcium: 2.5 Bicarb: 35 Rx updated on: 06/20/2025 TREATMENT ASSESSMENT Comments: non compliant, missed Hd treatments, meds Blood pressure elevated. No changes indicated. BP Stand Pre 07/06/2025: 182/134 07/05/2025: 201/132 06/20/2025: 197/123 BP Sit Pre 07/06/2025: 191/131 07/05/2025: 193/123 06/20/2025: 204/122 BP Stand Post 07/06/2025: 202/123 07/05/2025: 181/106 06/20/2025: 172/100 BP Sit Post 07/06/2025: 168/120 07/05/2025: 179/109 06/20/2025: 181/102 Tx Duration 07/06/2025: 1:56 07/05/2025: 1:40 06/20/2025: 3:06 Missed Treatments 7 - last 30 days 11 - last 60 days 07/10 - recent FLUID ASSESSMENT Comments: non compliant, missed treatments Fluid status not acceptable. Interdialytic weight gain acceptable. No changes indicated. EDW (kg) 07/06/2025: 45.0 07/05/2025: 45.0 06/20/2025: 45.0 Weight Pre (kg) 07/06/2025: 47.3 07/05/2025: 49.1 06/20/2025: 49.1 Weight Post (kg) 07/06/2025: 45.7 07/05/2025: 47.3 06/20/2025: 47.5 PWV (kg) 07/06/2025: 0.7 07/05/2025: 2.3 06/20/2025: 2.5 UF Rate (mL/kg/hr) 07/06/2025: 18.1 07/05/2025: 22.8 06/20/2025: 10.9 ADEQUACY ASSESSMENT Comments: labs pending Adequacy target not met. Prescription compliance not acceptable. Counseled patient regarding prescription compliance. spKt/V, URR 07/06/2025: 0.68, 44.0 05/30/2025: 2.35, 84.0 05/01/2025: 1.62, 75.0 ACCESS ASSESSMENT Access Type: AVFistula Access SubType: Standard Access Status: Active (In Use) - 08/14/2023 Access Location: Right Forearm Created: --/--/---- Flow 05/26/2025: 385 05/03/2025: 842 04/28/2025: 576 Vascular access reviewed. Current access is permanent and functioning well. ANEMIA ASSESSMENT HGB below goal. Iron parameters acceptable. URBA dose adequate. No changes indicated. HGB 07/05/2025: 9.6 06/20/2025: 8.4 06/12/2025: 10.0 Ferritin 05/30/2025: 1274.0 05/23/2025: 1219.0 03/20/2025: 1212.0 Mircera, IVP (mcg) 05/05/2025: 75 04/21/2025: 75 Iron Sucrose (Venofer) (mg) 05/15/2025: 100 05/12/2025: 100 05/10/2025: 100 BMM ASSESSMENT PTH controlled. Calcium controlled. Phosphorus elevated. BMM meds adherence acceptable. Counseled pt on meds adherence. PTH, Intact 05/30/2025: 375.0 02/27/2025: 694.0 01/30/2025: 607.0 Calcium, Phosphorus 06/12/2025: 8.9, - 05/30/2025: 9.1, 7.7 05/01/2025: 8.8, 10.8 Vitamin D (Calcitriol) Oral (mcg) 07/06/2025: 0.75 07/05/2025: 0.75 06/20/2025: 0.75 NUTRITION ASSESSMENT Potassium controlled. Albumin controlled. No changes indicated. Potassium, Albumin 06/12/2025: 4.9, - 05/30/2025: 4.4, 4.3 05/01/2025: 5.2, 4.4 eNPCR 07/06/2025: 0.33 05/30/2025: 1.06 05/01/2025: 0.94 PHYSICAL EXAM Exam Performed. Vital Signs Reviewed. Lungs - Clear. CV - RRR. 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 Resumed dialysis in 2022 at [facility]. Patient data updated 2025 at 11:04 AM Signed By: Shahriar Byers MD on 2025 11:09:38 AM documented in this encounter Plan of Treatment Not on file documented as of this encounter Visit Diagnoses Diagnosis End stage renal disease Dependence on renal dialysis documented in this encounter
--- OUTSIDE RECORDS SUMMARY | 2025-07-17 14:22 | XMS_ITS | Encounter Summary ---
Author Organization [facility] Address [address] [address] Phone Care Team Providers Care Lime Kiln Operator Name Role Phone Unavailable Primary Care Provider Unavailabl e Encounter Details Date Type Department Care Team (Late st Contact Info) Description 04/01/2023 Telephone [facility] [address] [address] Shawn Betancourt MD [address] [place] [address] Social History Tobacco Use Types Packs/Day Years [...]
--- OUTSIDE RECORDS SUMMARY | 2025-07-17 14:22 | XMS_ITS | Encounter Summary ---
Author Organization [facility], [facility] Address [address] [facility] [address] [place] [address] Phone Care Team Providers Care Vamper Name Role Phone Unavailable Primary Care Provider Unavailabl e Encounter Details Date Type Department Care Team (Late st Contact Info) Description 08/27/2022 [facility] [address] [facility] [address] [place] [address] Kidney transplant status Social History [...]
--- OUTSIDE RECORDS SUMMARY | 2025-07-17 14:22 | XMS_ITS | Clinical Summary ---
Author Organization [facility] Address [address] [place] [address] Phone Care Team Providers Care Programming Manager Name Role Phone Unavailable Primary Care [...] patient's age to complete this topic Insurance [employer] MEDICARE
--- OUTSIDE RECORDS SUMMARY | 2025-07-17 14:22 | XMS_ITS | Encounter Summary ---
Author Organization [facility] Address 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 Gender Identity Not on file Sexual [...] st Contact Info) Description 12/05/2025 2:40 PM INDUSTRIAL RELATIONS WORKER Office Visit [facility] [address] [address] Beverly Veronica MD [address] [address] documented as of this encounter Visit Diagnoses Not on filedocumented in this encounter Additional Health Concerns Assessment Noted Time PHQ-9 Depression Total Score: 3 05/29/20 25 3:06 PM CDT documented as of this encounter Care Teams Quencher Operator Relationship Specialty Start Date End Date Beverly Veronica MD [address] [address] PCP - General Family Practice 05/29/25 documented as of this encounter
--- OUTSIDE RECORDS SUMMARY | 2025-07-17 14:22 | XMS_ITS | Encounter Summary ---
Author Organization [facility] Address [address] [place] [address] Phone Care Team Providers Care Daycare Manager Name Role Phone Unavailable Primary Care Provider Unavailabl e Encounter Details Date Type Department Care Team (Late st Contact Info) Description 2025 Orders Only [facility] [address] [place] [address] Shahriar Byers MD [address] [place] [address] Social History Tobacco Use [...] Date/Time Associated Diagnosis Comments HD KINETICS Routine 2025 SPECIAL CHEMISTRY Routine 2025 POST CHEMISTRY Routine 2025 HEMATOLOGY Routine 2025 CHEMISTRY Routine 2025 CHEMISTRY Routine 2025 [facility] RESULTS Routine 2025 documented in this encounter Results * [facility] Results (2025) WSTDKT/V 0.8 [facility] eKt/V (Tattersall) 1.14 [facility] spKt/V (Daugirdas II) 1.43 [facility] 2025 2025 [facility] Ordering Provider LAB BLOOD ORDERABLES Final Result [facility] Contact Performing lab Unknown, [place] * SPECIAL CHEMISTRY (2025) [facility] Vitamin D, 25-OH, Total 48.0 30.0 - 100.0 ng/mL [facility] Comment: Please Note: Effective August 17, 2023, the methodology for this test has changed to the PixelatedAUR. 2025 07/14/2025 9:3 3 AM CDT Narrative Resulting Agency Comment Specimen source: Serum Shahriar Byers MD LAB BLOOD BANK TEST O RDERABLES Final Result Performing Organization Address City/[facility]/ZIP Co de Phone Number [facility] See order comments or contact performing lab Unknown, [place] * HD KINETICS (2025) [facility] % Urea Reduction 69 65 - 80 % [facility] 2025 07/14/2025 9:4 7 AM CDT Narrative Resulting Agency Comment Specimen source: Plasma Shahriar Byers MD LAB BLOOD ORDERABLES Final Result [facility] See order comments or contact performing lab Unknown, [place] * (ABNORMAL) POST CHEMISTRY (2025) [facility] BUN Post Dialysis 20(H) 6 - 19 mg/dL [facility] 2025 07/14/2025 9:4 7 AM CDT Narrative [facility] - 07/14/2025 Unless otherwise specified, test(s) performed at: [facility], [address] [place] [id number] WELDER SETTER RESISTANCE MACHINE: Ryan Singer M.D. For any questions, please call customer service at FREQUENCY:MONTHLY Resulting Agency Comment Specimen source: Plasma us Shahriar Byers MD LAB BLOOD ORDERABLES Final Result [facility] See order comments or contact performing lab Unknown, [place] * (ABNORMAL) [facility] (2025) BUN 64(H) 6 - 19 mg/dL [facility] Creatinine 8.35(H) 0.60 - 1.30 mg/dL [facility] BUN/Creatinine Ratio 7.7(L) 10.0 - 20.0 [facility] Sodium 140 136 - 145 mEq/L [facility] Potassium 5.3(H) 3.5 - 5.1 mEq/L [facility] Chloride 101 96 - 108 mEq/L [facility] Bicarbonate (CO2) 26 22 - 29 mEq/L [facility] Calcium 8.7 8.4 - 10.2 mg/dL [facility] Corrected Calcium 8.6 8.4 - 10.2 mg/dL [facility] Comment: Corrected Calcium is not equivalent to measured Ionized Calcium. Phosphorus 6.2(H) 2.6 - 4.5 mg/dL [facility] Calcium Phosphorus Product 54 0 - 54 [facility] Calcium Phosporus Product, Cor 53 0 - 54 [facility] Calcium, Ion 4.8 4.6 - 5.4 mg/dL [facility] Comment: Ionized Calcium has been corrected to pH 7.4. Alkaline Phosphatase 73 40 - 129 U/L [facility] Total Protein 5.6(L) 6.0 - 8.5 g/dL [facility] Albumin 4.1 3.5 - 5.2 g/dL [facility] Globulin, Total 1.5(L) 2.0 - 4.0 g/dL [facility] A/G Ratio 2.7(H) 1.0 - 2.0 [facility] Glucose 85 70 - 100 mg/dL [facility] Magnesium 2.4 1.6 - 2.6 mg/dL [facility] Iron 200(H) 45 - 160 mcg/dL [facility] UIBC 26(L) 155 - 355 mcg/dL [facility] TIBC 226 185 - 515 mcg/dL [facility] Iron Saturation (TSat) 88(H) 20 - 55 % [facility] Ferritin 1,533(H) 22 - 322 ng/mL [facility] 2025 07/14/2025 9:3 3 AM CDT Narrative [facility] - 07/14/2025 Unless otherwise specified, test(s) performed at: [facility], [address] [place] [address] WELDER SETTER RESISTANCE MACHINE: Ryan Singer M.D. For any questions, please call customer service at FREQUENCY:MONTHLY Resulting Agency Comment Specimen source: Serum Shahriar Byers MD LAB BLOOD ORDERABLES Edited Result - [facility] See order comments or contact performing lab Unknown, [place] * (ABNORMAL) HEMATOLOGY (2025) Hemoglobin 9.0(L) 14.0 - 18.0 g/dL [facility] Hemoglobin x 3 27(L) 42.0 - 54.0 % [facility] 2025 07/14/2025 9:5 9 AM CDT Narrative [facility] - 07/14/2025 Unless otherwise specified, test(s) performed at: [facility], [address] [place] [address] WELDER SETTER RESISTANCE MACHINE: Ryan Singer M.D. For any questions, please call customer service at FREQUENCY:MONTHLY Resulting Agency Comment Specimen source: Blood Shahriar Byers MD LAB BLOOD ORDERABLES Final Result [facility] See order comments or contact performing lab Unknown, [place] * (ABNORMAL) [facility] (2025) PTH 905(H) 16 - 80 pg/mL [facility] 2025 07/14/2025 9:5 9 AM CDT Narrative [facility] - 07/14/2025 Unless otherwise specified, test(s) performed at: [facility], [address] [place] [id number] WELDER SETTER RESISTANCE MACHINE: Ryan Singer M.D. For any questions, please call customer service at FREQUENCY:MONTHLY Resulting Agency Comment Specimen source: Plasma us Shahriar Byers MD LAB BLOOD ORDERABLES Final Result [facility] See order comments or contact performing lab Unknown, [place] documented in this encounter Visit Diagnoses Not on filedocumented in this encounter
--- OUTSIDE RECORDS SUMMARY | 2025-07-17 14:22 | XMS_ITS | Encounter Summary ---
Author Organization [facility] Address 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 Topic: Established Patient Care >> Jun 29, 2025 11:42 AM Asya Mckeon wrote: Is the patient established with a [facility] provider? Yes, select appropriate option in Discharge Facility SmartList Caller Name: Harjinder with [facility] Callback Number: [phone] Call Notes: Calling reporting pt will be discharging today 06/29 from [facility] hypertension urgency. Scheduled pt for first available [...] st Contact Info) Description 12/05/2025 2:40 PM FOOD AND BEVERAGE CASHIER Office Visit [facility] [address] [address] Beverly Veronica MD [address] [phone] documented as of this encounter Visit Diagnoses Not on filedocumented in this encounter Additional Health Concerns Assessment Noted Time PHQ-9 Depression Total Score: 3 05/29/20 25 3:06 PM CDT documented as of this encounter Care Teams Hvac Mechanical Engineer Relationship Specialty Start Date End Date Beverly Veronica MD [address] [place] [phone] PCP - General Family Practice 05/29/25 documented as of this encounter
--- OUTSIDE RECORDS SUMMARY | 2025-07-17 14:22 | XMS_ITS | Clinical Summary ---
Author Organization [facility] Address [address] [place] [address] Phone Care Team Providers Care Woven Paper Hat Mender Name Role Phone Beverly Veronica MD Primary Care Provider [phone] Allergies Active Allergy Reactions Criticality Noted Date [...] daily. 30 Tablet 2 5 Active vit B,G-FZ-yexn-se mishel-vit D3-E (RenaPlex-D) 800 mcg-12.5 mg -2,000 unit Tablet Take 1 Tablet by mouth. 5 Active FLUoxetine (PROzac) 10 mg capsule Take 1 Capsule by mouth daily. 5 Active methocarbamoL (ROBAXIN) 1,000 mg Tablet tablet Take 1 Tablet by mouth every 6 hours. 5 Active methoxy peg-epoetin beta (MIRCERA INJECTION) 75 mcg every 2 weeks. 5 Active cefdinir (OMNICEF) 300 mg capsule Take 1 Capsule by mouth 2 times daily. 5 Active divalproex (DEPAKOTE) 500 mg delayed release tablet Take 1 Tablet by mouth 2 times daily. 5 Active HYDROcodone-ac etaminophen (NORCO) 5-325 mg tablet TAKE 1 TO 2 TABLETS ORALLY EVERY 6 HOURS 5 Active Active Problems Problem Noted Date Diagnosed Date Ex-smoker 07/14/2025 Chronic neck pain 05/16/2025 Myofascial pain 05/16/2025 DDD (degenerative disc disease), cervical 2024 Cervical spondylosis without myelopathy 05/16/20 25 Cannabis use disorder 02/02/2025 Seizure disorder 01/31/2025 [...] Encounters Date Type Department Care Team Description 07/14/2025 11:20 AM CDT Office Visit [address] [phone] Beverly Veronica MD Acute pulmonary edema (CMS/HCC) (Primary Dx); Abscess; ESRD (end stage renal disease) (CMS/HCC); Chronic neck pain; Refused influenza vaccine 07/08/2025 6:50 AM CDT - 07/08/2025 11:59 PM CDT Hospital Encounter [facility] [address] [address] [facility] Discharge Disposition: [facility] 07/06/2025 1:50 PM CDT - 07/06/2025 11:59 PM CDT Hospital Encounter [facility] [address] [phone] [facility] Discharge Disposition: [facility] 07/04/[address] [facility] Health Information Management [place] [address] [place] [address] Provider, Abstract 07/03/2025 6:45 AM CDT - 07/03/2025 11:59 PM CDT Hospital Encounter [facility] [address] [address] [facility] Discharge Disposition: [facility] 06/29/2025 Telephone [facility] [address] [address] Beverly Veronica MD Information 06/27/2025 External Device Data STL ABSTRACTION Provider, Abstract 06/20/2025 External Device Data ST[facility] ABSTRACTION Provider, Abstract 06/20/2025 Results Follow-Up [facility] Pain Management [address] [place] [address] Garry Randolph MD MRI CERVICAL WO CONTRAST 06/15/2025 11:29 AM CDT - 06/15/2025 11:59 PM CDT Hospital Encounter [facility] [place] [address] [place] [address] Garry Randolph MD Discharge Disposition: Home or Self Care 05/30/2025 External Device Data STL ABSTRACTION Provider, Abstract 05/29/2025 2:40 PM CDT Office Visit [facility] Family Medicine [address] [address] Beverly Veronica MD Abrasion, foot without infection (Primary Dx); Seizure disorder ([facility]); Severe major depressive disorder ([facility]); ESRD (end stage renal disease) ([facility]) 05/24/2025 External Device Data ST[facility] ABSTRACTION Provider, Abstract 05/16/2025 3:00 PM CDT Office Visit [facility] [address] [place] [address] Garry Randolph MD Chronic neck pain (Primary Dx); Myofascial pain; DDD (degenerative disc disease), cervical; Cervical spondylosis without myelopathy; Cervical stenosis of spinal canal 05/16/2025 External Device Data ST[facility] ABSTRACTION Provider, Abstract 05/03/2025 External Device Data STL ABSTRACTION Provider, Abstract 04/27/2025 1:26 AM CDT - 04/27/2025 3:02 AM CDT Emergency [facility] Emergency Department [address] [place] [address] Demario Felipe MD Neck pain (Primary Dx); ESRD on hemodialysis ([facility]); Poorly-controlled hypertension Discharge Disposition: Home or Self Care 04/27/2025 Travel 04/26/2025 12:15 AM CDT - 04/26/2025 11:59 PM CDT Hospital Encounter [facility] [address] [place] [address] Ambulance, [facility] Discharge Disposition: [facility] 04/25/2025 2:50 PM CDT Ancillary Procedure [facility] Orthopedics Orthopedic [facility] [address] [place] [address] Shahriar Mckeon PA Closed dislocation of left elbow, initial encounter 04/25/2025 2:25 PM CDT Ancillary Procedure [facility] [address] [place] [address] Shahriar Mckeon PA Left hand pain; Right hand pain 04/25/2025 2:20 PM CDT Office Visit [facility] [place] [id number] [place] [address] Shahriar Mckeon PA Closed nondisplaced fracture of [...] PNEUM OCOCCAL CONJUGATE VACCINE 20-VALENT (PCV20), POLYSACCHARIDE VQU217 CONJUGATE, ADJUVANT 0.5 ML (PF) IM 12/14/2024 [...] on file Legal Sex Male 8:04 PM [employer] Gender Identity Not on file Sexual Orientation [...] Mass Index 19.76 07/14/2025 11:21 AM CDT Plan of Treatment Upcoming Encounters Date Type Department Care Team (Late st Contact Info) Description 12/05/2025 2:40 PM [employer] Office Visit [address] [phone] Beverly Veronica MD [address] [phone] Health Maintenance Due Date Last Done Comments [...] No acute cervical spine abnormalities. [facility] ORDER[facility]LES Final R esult * CT [...] No acute intracranial abnormality. Constance Joseph [facility] ORDERABLES Final R esult * (ABNORMAL) CBC WITH DIFFERENTIAL (04/26/2025 9:24 PM CDT) [facility] WBC 11.0 4.5 - 11.0 K/uL 04/26/2025 9:54 PM CDT [facility] RBC 3.38(L) 4.60 - 6.20 M/uL 04/26/2025 9:54 PM CDT [facility] HEMOGLOBIN 10.3(L) 14.0 - 18.0 g/dL 04/26/2025 9:54 PM T [facility] HEMATOCRIT 33.3(L) 41.0 - 53.0 % 04/26/2025 9:54 PM CDT [facility] MCV 98.5 84.0 - 103.0 fL 04/26/2025 9:54 PM CDT [facility] MCH 30.5 27.0 - 34.0 pg 04/26/2025 9:54 PM CDT [facility] MCHC 30.9 30.0 - 35.0 g/dL 04/26/2025 9:54 PM CDT [facility] PLATELETS 213 140 - 440 K/uL 04/26/2025 9:54 PM [facility] MPV 10.9 8.9 - 12.8 fL 04/26/2025 9:54 PM [facility] RDW 17.2(H) 11.0 - 14.5 % 04/26/2025 9:54 PM [facility] RDW-STDEV 60.4(H) 37.0 - 54.0 fL 04/26/2025 9:54 PM [facility] NEUTROPHILS 92(H) 42 - 75 % 04/26/2025 9:54 PM [facility] LYMPHOCYTES 4(L) 24 - 44 % 04/26/2025 9:54 PM [facility] MONOCYTES 2 2 - 10 % 04/26/2025 9:54 PM [facility] EOSINOPHILS 1 0 - 7 % 04/26/2025 9:54 PM [facility] BASOPHILS 1 0 - 1 % 04/26/2025 9:54 PM [facility] IMMATURE GRANULOCYTES 1 0 - 2 % 04/26/2025 9:54 PM [facility] NEUTROPHIL ABSOLUTE 10.16(H) 2.00 - 8.00 K/uL 04/26/2025 9:54 PM [facility] LYMPHOCYTE ABSOLUTE 0.47(L) 1.20 - 4.00 K/uL 04/26/2025 9:54 PM [facility] MONOCYTE ABSOLUTE 0.22 0.10 - 0.60 K/uL 04/26/2025 9:54 PM [facility] EOSINOPHIL ABSOLUTE 0.06 0.00 - 0.70 K/uL 04/26/2025 9:54 PM [facility] BASOPHILS ABSOLUTE 0.05 0.00 - 0.20 K/uL 04/26/2025 9:54 PM [facility] IMMATURE GRANULOCYTES ABSOLUTE 0.07 0.00 - 0.10 K/uL 04/26/2025 9:54 PM [facility] SMEAR REVIEWED: NN - No Action Needed 04/26/2025 9:54 PM [facility] TAMMY Blood Venipuncture / Unknown 04/26/2025 9:24 PM CDT 04/26/2025 9:39 PM CDT Constance Joseph [facility] SENIOR STAFF ACCOUNTANT HEMATOLOGY ORDERABLES F inal Result [facility] CLIA # [id number] [facility] [address] [place] [address] * INSERT PERIPHERAL IV (04/26/2025 9:20 PM CDT) Narrative Nahum Matos RN - 04/26/2025 9:20 PM CDT Nahum Matos RN 04/26/2025 9:39 PM VASCULAR ACCESS TEAM Peripheral IV insertion with lab collection PATIENT NAME: Vance Sainz DATE OF : 2000 CSN: [id number] DATE: 04/26/2025 Room: Room/bed info not found [...] tolerated well. Nahum Matos RN Constance Lim SENIOR STAFF ACCOUNTANT IV THERAPY ORDERABLES F inal Result * XR ELBOW 3+ VW LEFT (04/25/2025 2:57 PM CDT) Anatomical Region Laterality Modality Upper Extremity Computed Radiogr aphy Narrative 04/26/2025 8:52 AM CDT X-rays obtained of the left elbow on April 25, 2025 independently reviewed which does not demonstrate any acute osseous abnormalities, fractures, or dislocations noted. [employer] DIAGNOSTIC IMAGING ORDERABLES Fi nal Result * [...] chronic and healed fifth metacarpal neck fracture. Chance (app) DIAGNOSTIC IMAGING ORDERABLES Fi nal Result from Last 3 Months Insurance [place]ICA[place] DUAL COMPLETE O [facility] [id number] RX [employer] RX Member Subscriber Plan / Payer (Ef fective 2025-Present) Name:Vance Sainz Relation to Subscriber:Self Name:Vance Sainz Subscriber ID:Not on file Payer ID:Not on file Group ID:[id number] Type:RX Medicare Part D Address: [place] Advance Directives For more information, please contact: [phone] * Full Code (Latest Code Status on File) Date Activated Date Inactivated Comments 01/31/2025 2:27 PM 02/03/2025 8:44 PM Care Teams Woven Paper Hat Mender Relationship Specialty Start Date End Date Beverly Veronica MD [address] [place] [phone] PCP - General Family Practice 05/29/25
--- OUTSIDE RECORDS SUMMARY | 2025-07-17 14:22 | XMS_ITS | Encounter Summary ---
Author Organization [facility], [facility] Address [address] [place] [address] Phone Care Team Providers Care Line Fisher Name Role Phone Unavailable Primary Care Provider Unavailabl e Encounter Details Date Type Department Care Team (Late st Contact Info) Description 02/15/2025 TCM in Dialysis [facility], [facility] [address] [place] [address] Saskia Peterson DATA ENTRY TECHNICIAN [address] [facility] [address] [place] [address] Social History Tobacco Use Types [...] 02/15/2025 The patient was seen for a [id number] visit as part of Transitional Care Management services. 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 COMMENTS: See jennifer 1.0. Also hospitalized at [facility] this week for vol overload and hyperkalemia [...] list in p-hub. Current [facility] Outpatient Medications amlodipine 10 mg [...] night at bedtime. Current [facility] Allergies Allergen: No Known Allergies [...] 99.1*F Current Dialysis Vitals BP Sit: 145/84 AP/PROCESS CONTROLLER: -- Pulse: 88 CARE COORDINATION Post-discharge follow-up [...] Discussed with staff. VISIT DIAGNOSES CPT Code 83020 - High complexity, seen within 7 days [...]
--- OUTSIDE RECORDS SUMMARY | 2025-07-17 14:22 | XMS_ITS | Clinical Summary ---
Author Organization [facility], [facility] Address [address] [place] [address] Phone Care Team Providers Care Emergency Department Nurse Name Role Phone Unavailable Primary Care Provider Unavailabl e Encounters Date Type Department Care Team Description 2025 Orders Only [facility], [facility] [address] [place] [address] Shahriar Byers MD 2025 Treatment [facility], [facility] [address] [place] [address] Shahriar Byers MD End stage renal disease; Dependence on renal dialysis 07/06/2025 Orders Only [facility] [address] [place] [address] Shahriar Byers MD 07/06/2025 Treatment [facility], [facility] [address] [place] [address] Saskia Navas NP End stage renal disease; Dependence on renal dialysis 07/05/2025 Orders Only [facility] [address] [place] [address] Shahriar Byers MD 06/20/2025 Orders Only [facility] [address] [place] [address] Shahriar Byers MD 06/14/2025 Treatment [facility], [facility] [address] [place] [address] Shahriar Byers MD End stage renal disease; Dependence on renal dialysis 06/12/2025 Orders Only [facility], [facility] [address] [place] [address] Shahriar Byers MD 06/05/2025 [facility], [facility] [address] [place] [address] Shahriar Byers MD 05/30/2025 Orders Only [facility], [facility] [address] [place] [address] Shahriar Byers MD 05/26/2025 Treatment [facility], [facility] [address] [place] [address] Saskia Navas NP End stage renal disease; Dependence on renal dialysis 05/25/2025 Treatment [facility], [facility] [address] [place] [address] Saskia Navas NP End stage renal disease; Dependence on renal dialysis 05/23/2025 Orders Only [facility], [facility] [address] [place] [address] Shahriar Byers MD 05/15/2025 Orders Only [facility], [facility] [address] [place] [address] Shahriar Byers MD 05/10/2025 Orders Only [facility], [facility] [address] [place] [address] Shahriar Byers MD 05/10/2025 Treatment [facility], [facility] [address] [place] [address] Shahriar Byers MD End stage renal disease; Dependence on renal dialysis 05/05/2025 Treatment [facility], [facility] [address] [place] [address] Saskia Navas, TINO End stage renal disease; Dependence on renal dialysis 05/03/2025 Refill [facility] [address] [place] [address] Jasmin Carson MA 05/01/2025 Orders Only [facility], [facility] [address] [place] [address] Shahriar Byers MD 04/28/2025 [facility], [facility] [address] [place] [address] Saskia Navas, TINO End stage renal disease; Dependence on renal dialysis 04/24/2025 Orders Only [facility], [facility] [address] [place] [address] Shahriar Byers MD 04/19/2025 Treatment [facility], [facility] [address] [place] [address] Saskia Navas NP End stage renal disease; Dependence on renal dialysis 04/18/2025 Orders Only [facility], [facility] [address] [place] [address] Shahriar Byers MD from Last 3 Months [...] Diagnosis Comments [facility] RESULTS Routine 2025 SPECIAL CHEMISTRY Routine 2025 HD KINETICS Routine 2025 POST CHEMISTRY Routine 2025 CHEMISTRY Routine 2025 HEMATOLOGY Routine 2025 CHEMISTRY Routine 2025 [facility] RESULTS Routine 07/06/2025 HD KINETICS Routine 07/06/2025 CHEMISTRY Routine 07/06/2025 POST CHEMISTRY Routine 07/06/2025 HEMATOLOGY Routine 07/05/2025 HEMATOLOGY Routine 06/20/2025 CHEMISTRY Routine 06/12/2025 HEMATOLOGY Routine 06/12/2025 HEMATOLOGY Routine 06/05/2025 [facility] RESULTS Routine 05/30/2025 HD KINETICS Routine 05/30/2025 POST CHEMISTRY Routine 05/30/2025 HEMATOLOGY Routine 05/30/2025 SPECIAL CHEMISTRY Routine 05/30/2025 CHEMISTRY Routine 05/30/2025 CHEMISTRY Routine 05/30/2025 CHEMISTRY Routine 05/23/2025 HEMATOLOGY Routine 05/23/2025 HEMATOLOGY Routine 05/15/2025 HEMATOLOGY Routine 05/10/2025 HD KINETICS Routine 05/01/2025 POST CHEMISTRY Routine 05/01/2025 CHEMISTRY Routine 05/01/2025 HEMATOLOGY Routine 05/01/2025 HEMATOLOGY Routine 04/24/2025 HEMATOLOGY Routine 04/18/2025 from Last 3 Months Results * HD KINETICS (2025) Only the most recent of4 resultswithin the time period is included. % Urea Reduction 69 65 - 80 % [facility] 2025 07/14/2025 9:4 7 AM CDT Narrative Resulting Agency Comment Specimen source: Plasma Shahriar Byers MD LAB BLOOD ORDERABLES Final Result [facility] See order comments or contact performing lab Unknown, [place] * SPECIAL CHEMISTRY (2025) Only the most recent of2 resultswithin the time period is included. Vitamin D, 25-OH, Total 48.0 30.0 - 100.0 ng/mL [facility] Comment: Please Note: Effective August 17, 2023, the methodology for this test has changed to the [facility]. 2025 07/14/2025 9:3 3 AM CDT Narrative Resulting Agency Comment Specimen source: Serum Result [facility] Shahriar Byers MD LAB BLOOD BANK TEST O RDERABLES Final Result Performing Organization Address [facility] de Phone Number [facility] [employer] See order comments or contact performing lab Unknown, [place] * (ABNORMAL) POST CHEMISTRY (2025) Only the most recent of4 resultswithin the time period is included. BUN Post Dialysis 20(H) 6 - 19 mg/dL [facility] 2025 07/14/2025 9:4 7 AM CDT Narrative [facility] - 07/14/2025 Unless otherwise specified, test(s) performed at: [place] [address] SOLDERER ASSEMBLER: Ryan Singer M.D. For any questions, please call customer service at FREQUENCY:MONTHLY Resulting Agency Comment Specimen source: Plasma Shahriar Byers MD LAB BLOOD ORDERABLES Final Result Performing Organization Address [facility] de Phone Number [facility] [employer] See order comments or contact performing lab Unknown, [place] * (ABNORMAL) HEMATOLOGY (2025) Only the most recent of12 resultswithin the time period is included. Hemoglobin 9.0(L) 14.0 - 18.0 g/dL [facility] Hemoglobin x 3 27(L) 42.0 - 54.0 % [facility] 2025 07/14/2025 9:5 9 AM CDT Narrative [facility] - 07/14/2025 Unless otherwise specified, test(s) performed at: [facility], [address] [place] [address] SOLDERER ASSEMBLER: Ryan Singer M.D. For any questions, please call customer service at FREQUENCY:MONTHLY Resulting Agency Comment Specimen source: Blood Shahriar Byers MD LAB BLOOD ORDERABLES Final Result [facility] See order comments or contact performing lab Unknown, [place] * (ABNORMAL) [facility] Chemistry (2025) Only the most recent of8 resultswithin the time period is included. BUN 64(H) 6 - 19 mg/dL [facility] [...] 07/14/2025 Unless otherwise specified, test(s) performed at: [facility], [address] [place] [address] SOLDERER ASSEMBLER: Ryan Singer M.D. For any questions, please call customer service at FREQUENCY:MONTHLY Resulting Agency Comment Specimen source: Serum Shahriar Byers MD LAB BLOOD ORDERABLES Edited Result - Final [facility] See order comments or contact performing lab Unknown, [place] * [facility] Lab Results (2025) Only the most recent of3 resultswithin the time period is included. WSTDKT/V 0.8 [facility] eKt/V (Tattersall) 1.14 [facility] spKt/V (Daugirdas II) 1.43 [facility] 2025 2025 Eduardo Ordering Provider LAB BLOOD ORDERABLES Final Result Performing Organization Address City/[facility]/ZIP Co de Phone Number [facility] Contact Performing lab Unknown, [place] from Last 3 Months Insurance Medicaid [place] ([id number]) [facility] Medicare
--- NOTE | 2025-07-17 14:34 | ECG_ITS ---
[facility] Date: 2025-07-17 Pat Name: Vance Sainz Department: Room: Gender: Male Renewals Manager: : 2000 Requested By: Wade Rice Order Number: [id number] Danisha MD: Koby Shook M.D. Measurements Intervals [place] Rate: 108 P: 65 FL: 154 QRS: 9 QRSD: 101 T: 58 QT: 444 QTc: 597 Interpretive Statements SINUS TACHYCARDIA WITH FREQUENT VENTRICULAR PREMATURE COMPLEXES POSSIBLE LEFT ATRIAL ENLARGEMENT [-0.1mV P-WAVE IN V1/V2] T WAVE INVERSION IN SEPTAL LEADS Compared to ECG 07/10/2025 11:46:14 Ventricular premature complex(es) now present Sinus rhythm no longer present Electronically Signed On 07-20-2025 08:48:13 CDT by Koby Shook M.D. [email or web address]
[2025-07-17 14:39] LABS: Hematocrit 21.1 % (37-53); Hemoglobin 6.60 g/dL (11.27-16.99); Mean Corpuscular HGB Conc 31.3 g/dL (30-55); Mean Corpuscular Hemoglobin 30.0 pg (27-33); Mean Corpuscular Volume 95.9 fl (82-101); Nucleated Red Blood Cells % 0 %; Platelet Count 132 10^3/cmm (157-399); Red Blood Count 2.20 10^6/uL (3.85-5.65); White Blood Count 6.92 10^3/uL (3.29-11.43)
[2025-07-17 14:55] LABS: Alanine Aminotransferase 12 U/L (0-41); Albumin Level 3.9 g/dL (3.5-5.2); Alkaline Phosphatase 92 U/L (40-130); Anion Gap 29.1 (5-19); Aspartate Amino Transferase 13 U/L (0-40); Chloride 95 mmol/L (98-107); Creatinine Clr Calc Pharmacy 6.2120; Globulin 2.1 g/dL (1.3-4.6); Glucose 77 mg/dL (65-115); Sodium 138 mmol/L (136-145); Total Protein 6.0 g/dL (6.6-8.7)
[2025-07-17 14:58] LABS: Calcium 8.5 mg/dL (8.5-10.5); Carbon Dioxide 22 mmol/L (22-29); Osmolality Calculated 319 mOsm/kg (285-295)
[2025-07-17 15:05] LABS: Potassium 7.1 mmol/L (3.5-5.1)
[2025-07-17 15:06] LABS: Blood Urea Nitrogen 110 mg/dL (6-20)
--- NOTE | 2025-07-17 15:12 | W.ED.SOB ---
HPI - SOB/Dyspnea General: Chief Complaint: Shortness of Breath/Dyspnea Stated Complaint: sob Time Seen by Provider: 07/17/25 14:12 History of Present Illness: HPI Narrative: 25-year-old male presents to the emergency room complaining of increased shortness of breath. 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 He has felt very weak he is also complaining a lot of pain in his neck particularly on the left side of his neck. No weakness in the arms. He has seen pain management he said previous had an MRI scheduled to have a cervical nerve block injection done. Associated symptoms: Deny abdominal pain, chest pain, extremity pain or fever(s) Related Data Home Medications ?Medication ?Instructions ?Recorded ?Confirmed labetalol 100 mg tablet 200 mg PO BID 09/11/24 07/17/25 hydralazine 100 mg tablet 100 mg PO TID 04/05/25 07/17/25 sumatriptan 20 mg/actuation nasal 20 mg intranasal Q12H PRN Migraine 04/05/25 07/17/25 spray Headache fluoxetine 10 mg capsule 10 mg PO DAILY 06/28/25 07/17/25 nifedipine 30 mg tablet,extended 90 mg PO DAILY 07/10/25 07/17/25 release 24 hr prednisone 5 mg tablet See Rx Instructions .Route .COMPLEX 07/17/25 07/17/25 sevelamer carbonate 800 mg tablet See Rx Instructions .Route .COMPLEX 07/17/25 07/17/25 Previous Rx's ?Medication ?Instructions ?Recorded clonazepam 1 mg tablet (Klonopin) 1 mg PO BID PRN anxiety #10 tabs 01/09/25 acetaminophen 325 mg tablet 650 mg (2 x 325 mg) PO Q6H PRN 06/29/25 Mild/Mod Pain Or Temp >/= 101 #30 tabs clonidine HCl 0.1 mg tablet 0.2 mg (2 x 0.1 mg) PO TID #90 tabs 06/29/25 divalproex 500 mg tablet,delayed 500 mg PO BID #60 tabs 06/29/25 release losartan 50 mg tablet 50 mg PO DAILY #30 tabs 06/29/25 methocarbamol 750 mg tablet 750 mg PO Q8H PRN muscle spasm #30 07/08/25 tabs oxycodone 5 mg tablet 5 mg PO Q6H PRN pain #14 tabs 07/12/25 sodium zirconium cyclosilicate 5 5 g PO DAILY #11 ea 07/12/25 gram oral powder packet (Lokelma) Allergies Allergy/AdvReac Type Severity Reaction Status Date / Time NSAIDS (Non-Steroidal Allergy Severe unable to Verified 06/27/25 20:41 Anti-Inflamma take due to kidney disease sertraline (From Zoloft) Allergy Unknown Verified 06/27/25 20:41 Review of Systems Const: Reports: fatigue and malaise; Denies: fever(s) or chills Card: Denies: chest pain Resp: Denies: dyspnea GI: Denies: abdominal pain : Denies: dysuria, urinary frequency or urinary urgency Musc: Reports: neck pain; Denies: back pain or extremity pain Skin/Breast: Denies: rash PFSH ED PFSH: Medical History Noncompliance with renal dialysis Adrenal insufficiency Hypoglycemia CKD (chronic kidney disease) stage V requiring chronic dialysis Generalized anxiety disorder Other stimulant dependence, in remission Problems related to lack of adequate sleep Substance abuse Depression Anxiety Surgical History Kidney transplant recipient Social History Smoking and tobacco/nicotine status: tobacco/nicotine user, details unknown e-cigarettes E-Cigarette Details: vaporizer device and with nicotine E-cig/vape details: 6 mg and smokeless tobacco Smokeless tobacco user: chewing tobacco Smokeless tobacco details: 1 can/3 days. Quit status (tobacco/nicotine): has tried quititng Number of times tried to quit tobacco: 4 Second hand smoke exposure: No Alcohol intake: never Substance/Drug Use: current Substance/Drug use frequency: Special occassions/opportunity only Additional social history: Patient uses marijuana 1 g every other day he has remote history of some meth use. He reports chewing tobacco and using nicotine pouches but denies smoking cigarettes. He denies suicidal ideation. Patient is companied by his girlfriend and his CODE STATUS is always been full code confirmed with the patient on 06/05/2025 that he wants full CODE STATUS by Daron Ayala MD Patient admits to THC use Physical Exam Const: GENERAL APPEARANCE: cooperative ORIENTATION/CONSCIOUSNESS: Yes awake, Yes oriented to person, Yes oriented to place and Yes oriented to time HENMT: COMMON NORMALS: normocephalic, atraumatic and hearing grossly normal bilaterally HEAD & SCALP: normocephalic and atraumatic Resp: COMMON NORMALS: normal respiratory effort, No retractions, No use of accessory muscles and clear to auscultation bilaterally AUSCULTATION: clear to auscultation bilaterally Cardio: COMMON NORMALS: regular rate, regular rhythm and No murmurs present (Cardio) RATE: regular rate RHYTHM: regular rhythm GI: COMMON NORMALS: Soft to palpation and No hepatosplenomegaly present AUSCULTATION: Yes normoactive bowel sounds PALPATION: Yes Soft to palpation, No Tenderness to palpation present (GI), No Guarding due to palpation present (GI) and Yes No hepatosplenomegaly present Extremity: COMMON NORMALS: normal to inspection, capillary refill normal, no clubbing, cyanosis or edema, no calf tenderness and no pedal edema OTHER: Examination of the right forearm shows a fistula in the forearm with good hum and thrill. Neuro: SENSORIUM/ORIENTATION: Yes oriented to person, Yes oriented to place and Yes oriented to time Skin: COMMON NORMALS: no rashes or lesions noted GENERAL SKIN EXAM: no rashes or lesions noted Course Vital Signs: Vital signs: Vital Signs Temperature 97.6 F 07/17/25 14:11 Pulse Rate 80 07/17/25 15:40 Respiratory Rate 22 H 07/17/25 15:33 Blood Pressure 198/144 07/17/25 14:11 Pulse Oximetry 99 07/17/25 15:33 Oxygen Delivery Me thod Room Air 07/17/25 15:33 MDM - SOB/Dyspnea Medical Decision Making Patient's renal transplant had previously failed he is significantly hyperkalemic today he is also anemic. Accelerated hypertension as well he was given hydralazine and then subsequently labetalol. He ordered a unit of blood to be transfused I will start him on calcium gluconate sodium bicarb and D5 along with insulin and albuterol to treat his hyperkalemia. Discussed with hospitalist orders written. Patient's white count is normal. On the chest x-ray is a had noted some ground glass appearance of believe that is likely fluid overload rather than pneumonia at this time. Medical Records I reviewed the patient's medical records. Lab Data I reviewed the patient's lab results. 07/17/25 14:32 07/17/25 14:32 Labs/Radiology: Radiology Impressions Chest X-Ray 07/17/25 14:12 IMPRESSION: Presumed improving pneumonitis as above. Laboratory Results WBC 6.92 10^3/uL (3.29-11.43) 07/17/25 14:32 RBC 2.20 10^6/uL (3.85-5.65) L 07/17/25 14:32 Hgb 6.60 g/dL (11.27-16.99) L 07/17/25 14:32 Hct 21.1 % (37-53) L 07/17/25 14:32 MCV 95.9 fl (82-101) 07/17/25 14:32 MCH 30.0 pg (27-33) 07/17/25 14:32 MCHC 31.3 g/dL (30-55) 07/17/25 14:32 RDW 14.9 % (12.1-15.1) 07/17/25 14:32 Plt Count 132 10^3/cmm (157-399) L 07/17/25 14:32 MPV 10.0 fL (7.4-10.4) 07/17/25 14:32 Neut % (Auto) 68.2 % 07/17/25 14:32 Lymph % (Auto) 10.0 % 07/17/25 14:32 Charlton % (Auto) 17.1 % 07/17/25 14:32 Eos % (Auto) 3.0 % 07/17/25 14:32 Baso % (Auto) 1.0 % 07/17/25 14:32 Neut # (Auto) 4.72 10^3/uL (1.8-7.7) 07/17/25 14:32 Lymph # (Auto) 0.7 10^3/uL (0.8-4.8) L 07/17/25 14:32 Charlton # (Auto) 1.2 10^3/uL (0.2-0.9) H 07/17/25 14:32 Eos # (Auto) 0.2 10^3/uL (0.0-0.8) 07/17/25 14:32 Baso # (Auto) 0.1 10^3/uL (0.0-0.1) 07/17/25 14:32 Nucleated RBC % (auto) 0 % 07/17/25 14:32 Nucleated RBCs # 0.0 /100WBC 07/17/25 14:32 Sodium 138 mmol/L (136-145) 07/17/25 14:32 Potassium 7.1 mmol/L (3.5-5.1) H* 07/17/25 14:32 Chloride 95 mmol/L (98-107) L 07/17/25 14:32 Carbon Dioxide 22 mmol/L (22-29) 07/17/25 14:32 Anion Gap 29.1 (5-19) H 07/17/25 14:32 BUN 110 mg/dL (6-20) H* D 07/17/25 14:32 Creatinine 13.2 mg/dL (0.7-1.2) H* 07/17/25 14:32 GFR Calculation 4.6 mL/min (90-130) L 07/17/25 14:32 Glucose 77 mg/dL (65-115) 07/17/25 14:32 Calculated Osmolality 319 mOsm/kg (285-295) H 07/17/25 14:32 Calcium 8.5 mg/dL (8.5-10.5) 07/17/25 14:32 Phosphorus 5.5 mg/dL (2.5-4.5) H 07/17/25 14:32 Total Bilirubin 0.2 mg/dL (0.15-1.2) 07/17/25 14:32 AST 13 U/L (0-40) 07/17/25 14:32 ALT 12 U/L (0-41) 07/17/25 14:32 Alkaline Phosphatase 92 U/L (40-130) 07/17/25 14:32 Total Protein 6.0 g/dL (6.6-8.7) L 07/17/25 14:32 Albumin 3.9 g/dL (3.5-5.2) 07/17/25 14:32 Globulin 2.1 g/dL (1.3-4.6) 07/17/25 14:32 PTH Intact 592.8 pg/mL (15-65) H 07/17/25 14:32 Calcium (PTH Intact) 8.3 mg/dL (8.5-10.5) L 07/17/25 14:32 All radiology interpretation(s) finalized by discharge EKG Data EKG 1: Interpretation: EKG 07/17/2025 sinus tachycardia with PVCs rate of 108 UT interval 154 QTc [address] No acute ST changes noted does have peaked T waves. Compared to EKG done 07/10/2025 Discharge Plan Discharge Patient Disposition: Admitted As Inpatient Clinical Impression: Acute hyperkalemia, ESRD on hemodialysis, Anemia, Kidney transplant failure, Neck pain Condition: Stable Coding Level of Care Code ED Airworthiness Safety Inspector for Loida Menon
--- NOTE | 2025-07-17 15:30 | P.CONIM_ITS ---
Providers/Reason For Consult 2 Consulting Physician/Specialty*: merlin moore md / telenephrology Reason for Consult*: ESRD and hyperkalemia Requesting Physician: Dr Hawkins Primary Care Provider: Beverly Veronica MD History of Present Illness History of Present Illness Vance Sainz is a 25 year old male h/o ESRD on HD , , Thu, failed renal transplant, depression, substance abuse, seizure history. Patient missed HD and presented w/ weakness and found to have a hgb of 6.6, potasisum of 7.1 and cr of 13. renal was called to [facility] for HD and ESRD care. Review of Systems 2 Narrative: The patient missed dialysis on Thursday as he was short of breath and weak. The patient is short of breath as headaches weakness and complains of high blood pressure. The patient feels that his hemoglobin is low. The patient states that he is not bleeding that he knows of. The patient has a poor appetite nausea some vomiting some itching and cramps. Rest of the review of system is as above Medications/Allergies Home Medications ?Medication ?Instructions ?Recorded ?Confirmed ?Last Taken ?Type labetalol 100 mg tablet 200 mg PO BID 09/11/2407/1002/12/25 09:00 History clonazepam 1 mg tablet (Klonopin) 1 mg PO BID PRN anxi ety #10 tabs 01/09/25 07/10/25 02/12/25 09:00 Rx hydralazine 100 mg tablet 100 mg PO TID 04/05/2507/10 Unknown History sumatriptan 20 mg/actuation nasal 20 mg intranasal Q12 H PRN Migraine 04/05/25 07/10/25 Unknown History spray Headache fluoxetine 10 mg capsule 10 mg PO DAILY 06/28/25/12/1307/09/25 History acetaminophen 325 mg tablet 650 mg (2 x 325 mg) PO Q6H PRN 06/29/25 07/10/25 07/09/25 Rx Mild/Mod Pain Or Temp >/= 101 #30 tabs clonidine HCl 0.1 mg tablet 0.2 mg (2 x 0.1 mg) PO TID #90 tabs 06/29/25 07/10/25 07/09/25 Rx divalproex 500 mg tablet,delayed 500 mg PO BID #60 tab s 06/29/25 07/10/25 07/09/25 Rx release losartan 50 mg tablet 50 mg PO DAILY #30 tabs 06/1907/10/25 07/09/25 Rx methocarbamol 750 mg tablet 750 mg PO Q8H PRN muscle s pasm #30 07/08/25 07/10/25 07/09/25 Rx tabs nifedipine 30 mg tablet,extended 90 mg PO DAILY 07/10/25 Unknown History release 24 hr oxycodone 5 mg tablet 5 mg PO Q6H PRN pain #14 tab s 07/12/25 Unknown Rx sodium zirconium cyclosilicate 5 5 g PO DAILY #11 ea 0 07/12/25 Unknown Rx gram oral powder packet (Lokelma) prednisone 5 mg tablet See Rx Instructions .Route . COMPLEX 07/17/25 07/17/25 Unknown History sevelamer carbonate 800 mg tablet See Rx Instructions .Route .COMPLEX 07/17/25 07/17/25 Unknown History Allergies Allergy/AdvReac Type Severity Reaction Status Date / Time NSAIDS (Non-Steroidal Allergy Severe unable to Verified 06/27/25 20:41 Anti-Inflamma take due to kidney disease sertraline (From Zoloft) Allergy Unknown Verified 06/27/25 20:41 PFSH Acute 2 PFSH: Medical History (Updated 07/17/25 @ 15:14 by Wade Dan DO) Noncompliance with renal dialysis Adrenal insufficiency Hypoglycemia CKD (chronic kidney disease) stage V requiring chronic dialysis Generalized anxiety disorder Other stimulant dependence, in remission Problems related to lack of adequate sleep Substance abuse Depression Anxiety Surgical History Kidney transplant recipient Social History Smoking and tobacco/nicotine status: tobacco/nicotine user, details unknown e- cigarettes E-Cigarette Details: vaporizer device and with nicotine E-cig/vape details: 6 mg and smokeless tobacco Smokeless tobacco user: chewing tobacco Smokeless tobacco details: 1 can/3 days. Quit status (tobacco/nicotine): has tried quititng Number of times tried to quit tobacco: 4 Second hand smoke exposure: No Alcohol intake: never Substance/Drug Use: current Substance/Drug use frequency: Special occassions/opportunity only Additional social history: Patient uses marijuana 1 g every other day he has remote history of some meth use. He reports chewing tobacco and using nicotine pouches but denies smoking cigarettes. He denies suicidal ideation. Patient is companied by his girlfriend and his CODE STATUS is always been full code confirmed with the patient on 06/05/2025 that he wants full CODE STATUS by Daron Ayala MD Patient admits to THC use Vitals/I&O/Wt Last Vital Signs Temp 97.6 F 07/17/25 14:11 Pulse 77 07/17/25 14:11 Resp 16 07/17/25 14:11 BP 198/144 07/17/25 14:11 Pulse Ox 100 07/17/25 14:11 O2 Del Method Room Air 07/17/25 14:11 Weight last 48 hrs Weight 49.895 kg Physical Exam 2 Narrative: Patient is lying in bed no apparent distress vital signs noted blood pressure elevated. HEENT is normocephalic atraumatic. Neck is supple. Lungs have crackles bilaterally heart regular positive S1-S2. Abdomen soft positive bowel sounds. Extremities right upper extremity AV fistula with good thrill and bruit. Neuro awake alert oriented x 3. Positive leg edema. Data 07/17/25 14:32 07/17/25 14:32 A&P Assessment and plan 1. ESRD on dialysis: 25-year-old man ESRD unfortunately misses dialysis at times. 1. Will perform emergent dialysis now for hyperkalemia and metabolic acidosis. Patient is post to take Lokelma at home. 2. Anemia will start Epogen when blood pressure improves. Will send the iron studies. 3. Hypertension monitor with dialysis today and tomorrow and can restart home medications. 4. Monitor phosphorus use binders and should improve with dialysis. 5. Consider sending a urine tox. The patient was seen and examined with the aid of a nurse using A/V equipment. The patient consented to telehealth and to hemodialysis. Patient's questions were answered in detail Plan: See above plan hemodialysis today and tomorrow for hypertension and hyperkalemia. PDMP PDMP Reviewed: Not Reviewed Consult Attestations 2 Medical Necessity Statement: Hypertension, anemia, hyperkalemia, increased anion gap metabolic acidosis needing emergent dialysis Time Spent in Patient Care: Greater than 35 minutes (>than 50% of time spent in counselling and/or direct pt care on unit) . Coding Level of Care Code Acute Code for Chg Fwd Diagnoses ESRD on dialysis N18.6; Z99.2
--- NOTE | 2025-07-17 15:38 | PC.PHAR ---
Pt states nothing has changed on his med list since the last time he was here. Pt did not answer when asked last time he took any meds. Pt really focused on not being taken care of respectfully and kindly. Wants a patient advocate assigned.
[2025-07-17] MEDS: hyDRALAzine 20 mg/mL INJ 1 mL IVP (15:59)
[2025-07-17 16:05] LABS: Calcium 8.3 mg/dL (8.5-10.5)
[2025-07-17] MEDS: calcium chloride 10% Syr 10 mL 1 GM IVP (16:05)
[2025-07-17] MEDS: labetalol 5 mg/mL SDV 20mL 10 MG IVP (16:20)
[2025-07-17] MEDS: sodium bicarbonate 150 MEQ in dextrose 5% 200 ML 700 MEQ IV (16:22)
[2025-07-17] MEDS: insulin regular-human 100 units/1 mL 10 UNIT IVP (16:23)
[2025-07-17 16:24] LABS: Iron 78 ug/dL (59-158); Total Iron Binding Capacity 191 mcg/dl; Unsaturated Iron Binding 113 ug/dL (112-347)
[2025-07-17 16:34] LABS: Hepatitis B Surface Antigen Non-Reactive (Nonreactive)
[2025-07-17 16:38] LABS: Ferritin 1939 ng/mL (30-400)
--- NOTE | 2025-07-17 16:41 | P.HP_ITS ---
Providers/Chief Complaint 2 Admitting Physician: Deven Shah MD Primary Care Provider: Beverly Veronica MD Chief Complaint: sob History of Present Illness Vance Sainz is a 25 year old male with past medical history of ESRD on hemodialysis, uncontrolled hypertension, anemia presents to the ER today because of difficulty in breathing and headaches. Patient supposed to get dialysis Thursday. He missed his dialysis on Thursday because of neck pain. In the ER was found to have hyperkalemia, congestive heart failure, hypertensive emergency. Patient has so far received 20 of hydralazine, 10 of IV labetalol. Complaining of neck pain. Current blood pressure of 198/144 mmHg. Patient is complaining of neck pain. States he is to follow-up with pain management clinic as an outpatient and is requesting Dilaudid. Patient denies any melena, bleeding. States last bowel movement was yesterday which was normal consistency brown in color. Denies any hematemesis. Review of Systems 2 General: Reports: 10 or more systems reviewed and unremarkable except in HPI and below Const: Denies: fever(s), chills, body aches, change in appetite, change in weight, malaise, night sweats, diaphoresis, change in sleep pattern, daytime sleepiness or snoring Eyes: Denies: change in vision, blurry vision, photophobia, eye discomfort or eye discharge ENMT: Denies: throat pain, enlarged tonsils, hoarseness, mouth pain, oral sores, dry mouth, tinnitus, nasal congestion or post nasal drip Card: Denies: chest pain, palpitations, irregular heart rhythm, edema, swelling of feet/ankles, lightheadedness, syncope, pre-syncope, dyspnea on exertion, orthopnea, leg pain with exertion or acrocyanosis Resp: Denies: dyspnea, productive cough, non-productive cough, wheezing, stridor, pain on inspiration, change in phlegm color, hemoptysis or chest congestion GI: Denies: abdominal pain, nausea, vomiting, hematemesis, coffee ground emesis, dysphagia, heartburn, diarrhea, constipation, bloating, GI cramping, change in bowel habits, pain on defecation, hematochezia or melena : Denies: flank pain, difficulty urinating, dysuria, urinary frequency, urinary urgency, urinary hesitancy, urinary dribbling, difficulty starting urination, change in urine stream, nocturia or hematuria Musc: Denies: neck pain, back pain, extremity pain, joint pain, joint swelling, joint redness, joint stiffness or limited range of motion Neuro: Denies: headache(s), numbness in extremities, weakness in extremities, sensory changes, lack of coordination, difficulty walking, frequent falls, dizziness, vertigo, confusion, Slurred speech present, difficulty communicating thoughts or seizure-like activity Psych: Denies: anxiety, depression, mood swings, panic attacks, hopelessness or irritability Endo: Denies: polyuria, polydipsia, tired all the time, cold intolerance, excessive sweating, flushing or heat intolerance Zachary/Lymph: Denies: easy bruising or easy bleeding All/Imm: Denies: tongue swelling, facial swelling or acute wheezing Medications/Allergies Home Medications ?Medication ?Instructions ?Recorded ?Confirmed ?Last Taken ?Type labetalol 100 mg tablet 200 mg PO BID 09/11/2407/1702/12/25 09:00 History clonazepam 1 mg tablet (Klonopin) 1 mg PO BID PRN anxi ety #10 tabs 01/09/25 07/17/25 02/12/25 09:00 Rx hydralazine 100 mg tablet 100 mg PO TID 04/05/2507/17 Unknown History sumatriptan 20 mg/actuation nasal 20 mg intranasal Q12 H PRN Migraine 04/05/25 07/17/25 Unknown History spray Headache fluoxetine 10 mg capsule 10 mg PO DAILY 06/28/25 09/2 07/1307/09/25 History acetaminophen 325 mg tablet 650 mg (2 x 325 mg) PO Q6H PRN 06/29/25 07/17/25 07/09/25 Rx Mild/Mod Pain Or Temp >/= 101 #30 tabs clonidine HCl 0.1 mg tablet 0.2 mg (2 x 0.1 mg) PO TID #90 tabs 06/29/25 07/17/25 07/09/25 Rx divalproex 500 mg tablet,delayed 500 mg PO BID #60 tab s 06/29/25 07/17/25 07/09/25 Rx release losartan 50 mg tablet 50 mg PO DAILY #30 tabs 09/1 11/1207/17/25 07/09/25 Rx methocarbamol 750 mg tablet 750 mg PO Q8H PRN muscle s pasm #30 07/08/25 07/17/25 07/09/25 Rx tabs nifedipine 30 mg tablet,extended 90 mg PO DAILY 07/17/25 Unknown History release 24 hr oxycodone 5 mg tablet 5 mg PO Q6H PRN pain #14 tab s 07/12/25 07/17/25 Unknown Rx sodium zirconium cyclosilicate 5 5 g PO DAILY #11 ea 0 07/12/25 07/17/25 Unknown Rx gram oral powder packet (Lokelma) prednisone 5 mg tablet See Rx Instructions .Route . COMPLEX 07/17/25 07/17/25 Unknown History sevelamer carbonate 800 mg tablet See Rx Instructions .Route .COMPLEX 07/17/25 07/17/25 Unknown History Allergies Allergy/AdvReac Type Severity Reaction Status Date / Time NSAIDS (Non-Steroidal Allergy Severe unable to Verified 06/27/25 20:41 Anti-Inflamma take due to kidney disease sertraline (From Zoloft) Allergy Unknown Verified 06/27/25 20:41 PFSH Acute 2 PFSH: Medical History (Updated 07/17/25 @ 16:50 by Deven Shah MD) Anemia Renal transplant failure and rejection Kidney transplant failure Noncompliance with renal dialysis Adrenal insufficiency Hypoglycemia CKD (chronic kidney disease) stage V requiring chronic dialysis Generalized anxiety disorder Other stimulant dependence, in remission Problems related to lack of adequate sleep Substance abuse Depression Anxiety Surgical History Kidney transplant recipient Social History Smoking and tobacco/nicotine status: tobacco/nicotine user, details unknown e- cigarettes E-Cigarette Details: vaporizer device and with nicotine E-cig/vape details: 6 mg and smokeless tobacco Smokeless tobacco user: chewing tobacco Smokeless tobacco details: 1 can/3 days. Quit status (tobacco/nicotine): has tried quititng Number of times tried to quit tobacco: 4 Second hand smoke exposure: No Alcohol intake: never Substance/Drug Use: current Substance/Drug use frequency: Special occassions/opportunity only Additional social history: Patient uses marijuana 1 g every other day he has remote history of some meth use. He reports chewing tobacco and using nicotine pouches but denies smoking cigarettes. He denies suicidal ideation. Patient is companied by his girlfriend and his CODE STATUS is always been full code confirmed with the patient on 06/05/2025 that he wants full CODE STATUS by Daron Ayala MD Patient admits to THC use Vitals/I&O/Wt Last Vital Signs Temp 97.6 F 07/17/25 14:11 Pulse 80 07/17/25 15:40 Resp 22 H 07/17/25 15:33 BP 198/144 07/17/25 14:11 Pulse Ox 99 07/17/25 15:33 O2 Del Method Room Air 07/17/25 15:33 Weight last 48 hrs Weight 49.895 kg Physical Exam 2 Narrative: General: No acute distress, AO x3, chronically sick appearing, fistula present in right arm HEENT: PERRLA, pupils bilaterally equal and reactive Chest: Normal vesicular breath sounds, bilateral soft crackles present in lower zone up to mid chest, equal good air entry bilaterally CVS: S1-S2 regular, no murmurs, no tachycardia, no gallops, no rubs Abdomen: Soft, nontender, no organomegaly, bowel sounds present Neuro: No focal deficits, no facial deformity, AO x3, power 5/5 in all limbs Data 07/17/25 14:32 07/17/25 14:32 Micro: Microbiology 07/17/25 15:33 Blood Culture - Preliminary Blood SPECIMEN COLLECTED 07/17/25 15:21 Blood Culture - Preliminary Blood SPECIMEN COLLECTED A&P Assessment and plan 1. ESRD on hemodialysis: Noncompliant with treatment. Nephrology on board. Supposed to get hemodialysis Thursday, , Thursday. Plan for emergent dialysis. 2. Hypertensive urgency: Goal blood pressure less than 140/90 mmHg. Continue with home dose of clonidine, hydralazine, labetalol, nifedipine. Start on nicardipine drip for now with target blood pressure of 25% of presenting goal blood pressure of 200 systolic. Check urine drug screen, serum drug screen. 3. Malignant hypertension: 4. Anemia: Denies any active bleeding. Most likely in setting of end-stage renal disease. Check reticulocyte count, iron panel, vitamin B12 and folate level. Target hemoglobin more than 8. Transfuse 1 unit of PRBC. Protonix twice daily. Check stool for occult blood. 5. Neck pain: Most likely in setting of malignant hypertension. Patient requesting Dilaudid. For now we will start on OxyContin 10 twice daily, continue with home dose of oxycodone ER 5 mg every 6 hours as needed. 6. Headache: 7. Noncompliance with medication regimen: 8. Acute hyperkalemia: Received treatment in the ER. Plan for emergent dialysis. Repeat BMP in evening. 9. Congestive heart failure: Most likely in setting of hypertensive emergency. Check echocardiogram. 10. Missed dialysis: Plan: Renal dialysis diet Protonix PUD prophylaxis Heparin 5000 every 12 hourly DVT prophylaxis PDMP PDMP Reviewed: Not Reviewed Attestations 2 Medical Necessity Statement*: Admission for more than 2 midnights for management of malignant hypertension incisional disease on hemodialysis, shortness of breath setting of congestive heart failure, acute hyperkalemia in setting of missed dialysis Critical Care Time: The high probability of a clinically significant, sudden or life threatening deterioration of the patient's [renal, cardiac] system(s) required my full and direct attention, intervention and personal management. The critical care time is as shown. This time is in addition to time spent performing any reported procedures but includes the following: [x] Data and vital sign review and interpretation [x] Patient assessment, examination and intervention [x] Documentation [x] Medication orders and management Critical Care Time (min): 70 Coding Level of Care Code Critical Care >/= 30 minutes Critical care time (in minutes): 70 The high probability of a clinically significant, sudden or life threatening deterioration, as referenced in this documentation, required my full and direct attention, intervention and personal management. The critical care time shown is in addition to time spent performing any reported separately billable procedures and includes the following: [x] Data and vital sign review and interpretation [x ] Patient assessment, examination and intervention [x] Medication orders and management [x] Patient/Family updates as able [x] Care Coordination and Documentation. Diagnoses ESRD on hemodialysis N18.6; Z99.2 Hypertensive urgency I16.0 Malignant hypertension I10 Anemia D64.9 Neck pain M54.2 Headache R51.9 Noncompliance with medication regimen Z91.148 Acute hyperkalemia E87.5 Congestive heart failure I50.9 Missed dialysis
[2025-07-17] MEDS: morphine 4 mg/mL SDV 1 mL 2 MG IVP (17:24)
[2025-07-17] MEDS: oxyCODONE 10 mg ER (12 HR) Tablet PO (19:17)
[2025-07-17] MEDS: divalproex DR 500 mg Tablet PO (19:17)
[2025-07-17] MEDS: pantoprazole 40 mg SDV IVP (19:18)
[2025-07-17 19:40] LABS: Vitamin B12 689 pg/mL (232-1245)
[2025-07-17] MEDS: nicardipine 20 MG/200 ML PREMIX 50 MG IV (20:10)
--- NOTE | 2025-07-17 20:36 | PC.NURSE ---
This RN called to bedside for pt becoming loud and aggressive with nursing staff. Pt sitting up in bed with hemodialysis at bedside, A&Ox3. Pt making statements like my 16 year old step daughter just two weeks ago and you guys wont let me say goodbye to my girlfriend. I've done this for 20 years and I've never been so disrespected in my life. They never make me sit here in pain like this. All I need is Dilaudid, they gave it to me last time every three hours then sent me home with a script of Oxy, bro. Pt informed that nursing staff can not provide medications that are not ordered by the physician. Pt stating I don't want to , I'm not suicidal, but I'm ready to let nature take its course . Pt is insistent on becoming argumentative with staff regardless of the numerous times staff tried to accommodate requests. Physician called to bedside.
[2025-07-17] MEDS: diphenhydrAMINE 50 mg/mL SDV 1mL 25 MG IVP (21:04)
[2025-07-17] MEDS: HYDROmorphone 0.5 MG/0.5 ML INJ 0.4 MG IVP (21:04)
[2025-07-17 21:28] LABS: Anion Gap 20.8 (5-19); Blood Urea Nitrogen 52 mg/dL (6-20); Calcium 9.7 mg/dL (8.5-10.5); Carbon Dioxide 27 mmol/L (22-29); Chloride 98 mmol/L (98-107); Creatinine Clr Calc Pharmacy 15.2092; Glucose 103 mg/dL (65-115); Osmolality Calculated 308 mOsm/kg (285-295); Potassium 3.8 mmol/L (3.5-5.1); Sodium 142 mmol/L (136-145)
[2025-07-17] MEDS: ondansetron 2 mg/ML SDV 2 mL 4 MG IVP (23:30)
--- NOTE | 2025-07-17 23:37 | PC.HD ---
Patient signed off dialysis treatment 50 minutes early. Electronic AMA signed by patient. Copy printed and placed in patient chart. Patient stated he just couldn't take it anymore and signed off early. Patient was advised of the importance of finishing his dialysis treatment and this RN recommended he attempt to continue, but patient stated he was within his rights to sign off early.
[2025-07-17] MEDS: nicardipine 20 MG/200 ML PREMIX 75 MG IV (23:45)
[2025-07-18] VITALS (167 sets, daily range): BP systolic 126–169; BP diastolic 66–126; PULSE 70–98; RESP 2–31; TEMP 36.6–37.2; O2SAT 87–100
[2025-07-18] MEDS: HYDROmorphone 0.5 MG/0.5 ML INJ 0.2 MG IVP ×2 (00:49→06:20)
[2025-07-18] MEDS: nicardipine 20 MG/200 ML PREMIX 50 MG IV (03:08)
[2025-07-18 04:31] LABS: Hematocrit 23.8 % (37-53); Hemoglobin 7.80 g/dL (11.27-16.99); Mean Corpuscular HGB Conc 32.8 g/dL (30-55); Mean Corpuscular Hemoglobin 29.9 pg (27-33); Mean Corpuscular Volume 91.2 fl (82-101); Nucleated Red Blood Cells % 0 %; Platelet Count 127 10^3/cmm (157-399); Red Blood Count 2.61 10^6/uL (3.85-5.65); White Blood Count 6.23 10^3/uL (3.29-11.43)
--- NOTE | 2025-07-18 05:00 | PC.NURSE ---
BEHAVIOR Around approx 2030 while getting hemodialysis patient becoming increasingly agitated and shouting at nursing staff, boarding house manager at bedside. Patient is A&Ox3 and making statements such as I'm done with this shit, if I leave here and my blood is going to be on your hands I'm not suicidal, if I was suicidal I would just cut across my fistula and bleed out, I'm just going to leave and let god finish what he started. I don't understand why you wont just give me Dilaudid, you are refusing to treat my pain
--- NOTE | 2025-07-18 05:00 | PC.NURSE ---
Upon arrival to unit patient was complaining of neck pain and asking if his lulu could stay with him. Became angry when he was informed of the visitor policy and told nurse that they were homeless and nurses were [facility] for making her sleep on the street and he would leave if she was not allowed to stay. When nurse brought lulu from waiting room she inquired if she was allowed to stay, when she was informed of visitor policy she stated, Thank God, I really want to go home . Pt. nurse administered pain meds according to MAR, and approx 30 min later pt became increasingly irritable and stated his pain was why he skipped dialysis on Thursday and he would leave if this [facility] didn't help him . He repeatedly specifically requested Dilaudid, but stated they would not give it to him in the ED due to his shortness of breath which had resolved. Explained that he had received pain meds, but since currently receiving dialysis most pain meds would not be as effective since they are filtered out. Pt stated he knew that and continued to escalate behavior. When attempting to educate patient he became more loud and argumentative with this nurse, making multiple threats that he would leave AMA. Informed pt that he was able to make his own decisions and if he decided to leave I would provide him the paperwork necessary and we would stop treatment but it would be discouraged in his current condition. Pt interrupted and stated If I leave I hope I on the front porch of this place and my blood is on your hands. I'm done with this shit. I'm not suicidal, but if I don't get what I want I'm going to leave AMA and let God finish what he started. I want the Dilaudid. Pt. then added he was angry that staff did not let his lulu come back in from the restroom and tell him goodbye, which did not happen. Began adding that if she did not come back and tell him goodbye he would leave AMA and what [facility] staff were, as lulu's daughter had attempted suicide two weeks prior and everyone in his life had just left him. Repeatedly stated I'm just going to end it. Unhook me. I'm ready to . I'm not suicidal though. If I was suicidal I would just cut my fistula or something. Called warehouse examiner to bedside, who observed behavior and continued to offer solutions while pt continued attempting to argue and repeatedly stated if I leave and , my blood is on your hands . Called Dr. Osuna to bedside, gave verbal orders for Dilaudid as seen in MAR. Pt was agreeable to treatment, but continued hostility with staff. Pt. eventually requested to terminate dialysis early as seen in dialysis note.
[2025-07-18 05:04] LABS: Alanine Aminotransferase 11 U/L (0-41); Albumin Level 3.7 g/dL (3.5-5.2); Alkaline Phosphatase 87 U/L (40-130); Anion Gap 19.4 (5-19); Aspartate Amino Transferase 11 U/L (0-40); Blood Urea Nitrogen 53 mg/dL (6-20); Calcium 8.7 mg/dL (8.5-10.5); Carbon Dioxide 27 mmol/L (22-29); Chloride 100 mmol/L (98-107); Creatinine Clr Calc Pharmacy 11.2418; Globulin 2.1 g/dL (1.3-4.6); Glucose 99 mg/dL (65-115); Magnesium 2.2 mg/dL (1.7-2.3); Osmolality Calculated 304 mOsm/kg (285-295); Potassium 6.4 mmol/L (3.5-5.1); Sodium 140 mmol/L (136-145); Total Protein 5.8 g/dL (6.6-8.7)
[2025-07-18] MEDS: oxyCODONE 5 mg IR Tab/Cap PO ×3 (05:22→20:10)
[2025-07-18] MEDS: pantoprazole 40 mg SDV IVP (06:20)
[2025-07-18] MEDS: NIFEdipine ER (24 hr) 30 mg Tablet 90 MG PO (08:24)
[2025-07-18] MEDS: oxyCODONE 10 mg ER (12 HR) Tablet PO ×2 (08:25→17:53)
[2025-07-18] MEDS: divalproex DR 500 mg Tablet PO ×2 (08:26→17:53)
--- NOTE | 2025-07-18 12:28 | PM.DCS ---
Discharge Providers Date of Admission: 07/17/25 16:26 Date of Discharge: July 18, 2025 Attending Provider at Admission: Deven Shah MD Attending Provider at Discharge: Deven Shah MD Consults: Telemetry nephrology Primary Care Provider: Beverly Veronica MD Diagnoses at Discharge Discharge Diagnosis 1. ESRD on hemodialysis: 2. Hypertensive urgency: 3. Malignant hypertension: 4. Anemia: 5. Neck pain: 6. Headache: 7. Noncompliance with medication regimen: 8. Acute hyperkalemia: 9. Congestive heart failure: 10. Missed dialysis: Reason for Visit Reason for Visit: sob Hospital Course Hospital Course Vance Sainz is a 25 year old male with past medical history of ESRD on hemodialysis, uncontrolled hypertension, anemia presents to the ER today because of difficulty in breathing and headaches. Patient supposed to get dialysis Thursday. He missed his dialysis on Thursday because of neck pain. In the ER was found to have hyperkalemia, congestive heart failure, hypertensive emergency. Patient has so far received 20 of hydralazine, 10 of IV labetalol. Complaining of neck pain. Current blood pressure of 198/144 mmHg. Patient is complaining of neck pain. States he is to follow-up with pain management clinic as an outpatient and is requesting Dilaudid. Patient denies any melena, bleeding. States last bowel movement was yesterday which was normal consistency brown in color. Denies any hematemesis. He was treated for hyperkalemia, HTN emergency leading to flash edema due to diastolic HF with emergent dialysis. His symptoms improved after dialysis, with improvement in his blood pressures. He needed repeat dialysis on 07/18. He is being discharged home on adjusted anti-HTN meds with counseling to maintain hemodialysis schedule as before. Physical Exam Narrative: General: No acute distress, AO x3, chronically sick appearing, fistula present in right arm HEENT: PERRLA, pupils bilaterally equal and reactive Chest: Normal vesicular breath sounds, bilateral soft crackles present in lower zone up to mid chest, equal good air entry bilaterally CVS: S1-S2 regular, no murmurs, no tachycardia, no gallops, no rubs Abdomen: Soft, nontender, no organomegaly, bowel sounds present Neuro: No focal deficits, no facial deformity, AO x3, power 5/5 in all limbs Discharge Data Studies Completed and Pending Completed Studies During Hospitalization Category Date Time Status XR chest 1V portable [id number] Stat Exams 07/17/25 14:12 Completed CV. echo complete* [id number] Routine Ultrasound 07/18/25 16:44 Completed Pending at discharge Category Date Time Status Blood Culture Stat Lab 07/17/25 15:33 Results Complete Blood Count w/Auto AM LABS Lab 07/19/25 04:00 Ordered Complete Blood Count w/Auto AM LABS Lab 07/20/25 04:00 Ordered Comprehensive Metabolic Panel AM LABS Lab 07/19/25 04:00 Ordered Comprehensive Metabolic Panel AM LABS Lab 07/20/25 04:00 Ordered Drug Screen Serum [Serum Drug Panel 7] Stat Lab 07/17/25 19:08 Received Drug Screen, Urine (OZH) Stat Lab 07/17/25 16:22 Ordered Magnesium AM LABS Lab 07/19/25 04:00 Ordered Magnesium AM LABS Lab 07/20/25 04:00 Ordered Occult Blood Stool [Immunochemical Fecal OCB] Routine Lab 07/17/25 14:50 Uncollected Phosphorus AM LABS Lab 07/19/25 04:00 Ordered Phosphorus AM LABS Lab 07/20/25 04:00 Ordered Radiology Impressions Chest X-Ray 07/17/25 14:12 IMPRESSION: Presumed improving pneumonitis as above. EChocardiogram CONCLUSIONS LV systolic function is normal with EF of 55-60% Mild mitral regurgitation No comparison studies are available. Koby Shook MD (Electronically Signed) Final Date: 18 July 2025 Laboratory Results WBC 6.23 10^3/uL (3.29-11.43) 07/18/25 04:14 RBC 2.61 10^6/uL (3.85-5.65) L 07/18/25 04:14 Hgb 7.80 g/dL (11.27-16.99) L 07/18/25 04:14 Hct 23.8 % (37-53) L 07/18/25 04:14 MCV 91.2 fl (82-101) 07/18/25 04:14 MCH 29.9 pg (27-33) 07/18/25 04:14 MCHC 32.8 g/dL (30-55) 07/18/25 04:14 RDW 14.8 % (12.1-15.1) 07/18/25 04:14 Plt Count 127 10^3/cmm (157-399) L 07/18/25 04:14 MPV 9.7 fL (7.4-10.4) 07/18/25 04:14 Neut % (Auto) 66.5 % 07/18/25 04:14 Lymph % (Auto) 10.4 % 07/18/25 04:14 [place]ilton % (Auto) 20.5 % 07/18/25 04:14 Eos % (Auto) 1.4 % 07/18/25 04:14 Baso % (Auto) 0.6 % 07/18/25 04:14 Reticulocyte % (Auto) 0.8 % (0.5-2.0) 07/17/25 14:32 Neut # (Auto) 4.13 10^3/uL (1.8-7.7) 07/18/25 04:14 Lymph # (Auto) 0.7 10^3/uL (0.8-4.8) L 07/18/25 04:14 [place] # (Auto) 1.3 10^3/uL (0.2-0.9) H 07/18/25 04:14 Eos # (Auto) 0.1 10^3/uL (0.0-0.8) 07/18/25 04:14 Baso # (Auto) 0.0 10^3/uL (0.0-0.1) 07/18/25 04:14 Nucleated RBC % (auto) 0 % 07/18/25 04:14 Nucleated RBCs # 0.0 /100WBC 07/18/25 04:14 Sodium 140 mmol/L (136-145) 07/18/25 04:14 Potassium 6.4 mmol/L (3.5-5.1) H 07/18/25 04:14 Chloride 100 mmol/L (98-107) 07/18/25 04:14 Carbon Dioxide 27 mmol/L (22-29) 07/18/25 04:14 Anion Gap 19.4 (5-19) H 07/18/25 04:14 BUN 53 mg/dL (6-20) H 07/18/25 04:14 Creatinine 7.3 mg/dL (0.7-1.2) H* 07/18/25 04:14 GFR Calculation 9.2 mL/min (90-130) L 07/18/25 04:14 Glucose 99 mg/dL (65-115) 07/18/25 04:14 POC Glucose 105 mg/dL (70-110) 07/17/25 20:58 Calculated Osmolality 304 mOsm/kg (285-295) H 07/18/25 04:14 Calcium 8.7 mg/dL (8.5-10.5) 07/18/25 04:14 Phosphorus 4.5 mg/dL (2.5-4.5) 07/18/25 04:14 Magnesium 2.2 mg/dL (1.7-2.3) 07/18/25 04:14 Iron 78 ug/dL (59-158) 07/17/25 14:32 TIBC 191 mcg/dl 07/17/25 14:32 % Saturation 40.8 % (20-50) 07/17/25 14:32 Unsat Iron Binding 113 ug/dL (112-347) 07/17/25 14:32 Ferritin 1939 ng/mL (30-400) H 07/17/25 14:32 Total Bilirubin 0.2 mg/dL (0.15-1.2) 07/18/25 04:14 AST 11 U/L (0-40) 07/18/25 04:14 ALT 11 U/L (0-41) 07/18/25 04:14 Alkaline Phosphatase 87 U/L (40-130) 07/18/25 04:14 Total Protein 5.8 g/dL (6.6-8.7) L 07/18/25 04:14 Albumin 3.7 g/dL (3.5-5.2) 07/18/25 04:14 Globulin 2.1 g/dL (1.3-4.6) 07/18/25 04:14 Vitamin B12 689 pg/mL (232-1245) 07/17/25 14:32 25-OH Vitamin D Total 43 ng/mL (30-100) 07/17/25 14:32 Folate 8.0 ng/mL (4.5-32.2) 07/18/25 04:14 PTH Intact 592.8 pg/mL (15-65) H 07/17/25 14:32 Calcium (PTH Intact) 8.3 mg/dL (8.5-10.5) L 07/17/25 14:32 Hep Bs Antigen Non-reactive (Nonreactive) 07/17/25 14:32 Hep Bs Antibody 26.0 (11.5-1000) 07/17/25 14:32 Hepatitis C Antibody Non-reactive (Nonreactive) 07/17/25 14:32 Blood Type A Negative 07/17/25 15:33 Rho(D) Type Rh negative 07/17/25 15:33 Antibody Screen Negative 07/17/25 15:33 Crossmatch See Detail 07/17/25 15:33 Vitals Last Vital Signs Temp 98.0 F 07/18/25 08:30 Pulse 77 07/18/25 12:20 Resp 12 07/18/25 11:55 BP 141/108 07/18/25 12:20 Pulse Ox 95 07/18/25 12:20 O2 Del Method Room Air 07/18/25 08:30 Discharge Plan Discharge Patient Disposition: Home Condition: Stable Prescriptions: Continued sumatriptan 20 mg/actuation spray,non-aerosol 20 mg INTRANASAL Q12H PRN (Reason: Migraine Headache) hydralazine 100 mg tablet 100 mg PO TID nifedipine 30 mg tablet extended release 24hr 90 mg PO DAILY oxycodone 5 mg tablet 5 mg PO Q6H PRN (Reason: pain) Qty: 14 0RF Lokelma 5 gram powder in packet 5 g PO DAILY Qty: 11 2RF prednisone 5 mg tablet See Rx Instructions .ROUTE .COMPLEX Rx Instructions: TAKE 2 TABLETS BY MOUTH DAILY FOR 4 WEEKS, THEN 1 DAILY THEREAFTER. sevelamer carbonate 800 mg tablet See Rx Instructions .ROUTE .COMPLEX Rx Instructions: TAKE 2 TABLETS BY MOUTH DAILY FOR 4 WEEKS, THEN 1 TABLET DAILY THEREAFTER. labetalol 100 mg tablet 200 mg PO BID clonazepam [Klonopin] 1 mg tablet 1 mg PO BID PRN (Reason: anxiety) Qty: 10 0RF fluoxetine 10 mg capsule 10 mg PO DAILY acetaminophen 325 mg Tablet 650 mg PO Q6H PRN (Reason: Mild/Mod Pain Or Temp >/= 101) Qty: 30 0RF losartan 50 mg Tablet 50 mg PO DAILY Qty: 30 0RF clonidine HCl 0.1 mg Tablet 0.2 mg PO TID Qty: 90 0RF divalproex 500 mg Tablet,Delayed Release (Dr/Ec) 500 mg PO BID Qty: 60 0RF methocarbamol 750 mg tablet 750 mg PO Q8H PRN (Reason: muscle spasm) Qty: 30 0RF Referrals: [facility] [Outside] Beverly Veronica MD [Primary Care Provider, Family Practice] - 07/20/25 10:00 am Referral Note: this is at [facility] [phone] Patient Instructions: Pulmonary Edema (ED), Hyperkalemia (DC), Opioid Safety, Patient Portal & Adria Instructions Activity Restrictions/Additional Instructions: Check your blood pressure daily at home maintain a blood pressure diary. Goal blood pressures less than 140/90 mmHg. Avoid Motrin. Discharge Attestations Time Spent in Discharge Care*: greater than 30 min Specific Discharge Activities: educating patient, educating and/or supporting family/caregiver, discussing with pcp/other providers, discussing with field nurse case manager/social workers/dc planners, documenting/other paperwork and evaluating patient/reviewing data Status at Discharge: Cognitive status at discharge: cognitively intact, Behavioral status at discharge: cooperative and can be uncooperative, Functional status at discharge: independent ambulation, Overall status at discharge: patient is back to baseline Quality Metrics Clinical Quality Measures [ No reported AMI, CVA or VTE this stay] Coding Level of Care Code 86899 Total time (in minutes) for Discharge: 65 Diagnoses ESRD on hemodialysis N18.6; Z99.2 Hypertensive urgency I16.0 Malignant hypertension I10 Anemia D64.9 Neck pain M54.2 Headache R51.9 Headache chronicity pattern: acute headache Headache type: unspecified Intractability: intractable Noncompliance with medication regimen Z91.148 Acute hyperkalemia E87.5 Congestive heart failure I50.9 Missed dialysis
--- NOTE | 2025-07-18 14:43 | P.PN_ITS ---
Subjective 2 Subjective: no new c/o Medications: Reviewed: Yes Vitals/I&O/Wt Last Vital Signs Temp 98.0 F 07/18/25 08:30 Pulse 77 07/18/25 12:20 Resp 18 07/18/25 13:20 BP 141/108 07/18/25 12:20 Pulse Ox 100 07/18/25 13:20 O2 Del Method Room Air 07/18/25 08:30 07/17/25 07/18/25 07/18/25 22:59 06:59 14:59 Intake Total 485.833 / 972.185 7941.001 / 1680.834 Output Total 2649 / 2649 Balance 485.833 / 485.833 -1453.999 / -968.166 Weight last 48 hrs Weight 52.481 kg Weight 52.481 kg Weight 50 kg Weight 52.481 kg Weight 49.895 kg Physical Exam 2 Narrative: Patient is lying in bed no apparent distress vital signs noted blood pressure elevated. HEENT is normocephalic atraumatic. Neck is supple. Lungs have crackles bilaterally heart regular positive S1-S2. Abdomen soft positive bowel sounds. Extremities right upper extremity AV fistula with good thrill and bruit. Neuro awake alert oriented x 3. Positive leg edema. Data 07/18/25 04:14 07/18/25 04:14 Micro: Microbiology 07/17/25 15:33 Blood Culture - Preliminary Blood SPECIMEN COLLECTED 07/17/25 15:21 Blood Culture - Preliminary Blood SPECIMEN COLLECTED A&P Assessment and plan 1. ESRD on dialysis: 2. ESRD on hemodialysis: 1. ESRD:missed HD and presented with volume overload and hyperkalemia. HD today 2. Hypertension : resumed home meds 3. Hyperkalemia ,, low k diet 4. Anemia : ,s/p Epogen 5. metabolic acidosis -improved, with HD Patient seen and examined with a nurse using audiovisual equipment. Patient consented to telehealth and to dialysis. Plan: per medicine PDMP PDMP Reviewed: Not Reviewed Attestations 2 Medical Necessity Statement*: per medicine Coding Level of Care Code Acute Code for Chg Fwd Diagnoses ESRD on dialysis N18.6; Z99.2 ESRD on hemodialysis N18.6; Z99.2
[2025-07-18] MEDS: heparin, porcine 1,000 unit/mL INJ 10 mL 1000 UNIT IV (16:40)
--- NOTE | 2025-07-18 16:44 | USCV_ITS ---
Vance Sainz Age: 25 Gender: M : 2000 Exam Date: 07/18/2025 08:49 Ordering Phys: Deven Shah MD Technologist: ART Exam Location: [facility] [place] Indication: Hypertensive Urgency BP: 162 / 112 HR: 78 Rhythm: Sinus Technical Quality: Adequate MEASUREMENTS (Male / Female) Normal Values 2D ECHO LV Diastolic Diameter PLAX 5.4 cm 4.2 - 5.9 / 3.9 - 5.3 cm IVS Diastolic Thickness 1.1 cm 0.6 - 1.0 / 0.6 - 0.9 cm IVS Systolic Thickness 1.6 cm LVPW Diastolic Thickness 1.6 cm 0.6 - 1.0 / 0.6 - 0.9 cm LVPW Systolic Thickness 2.0 cm LVOT Diameter 2.0 cm LV Ejection Fraction 2D Teich 61.1 % LV Ejection Fraction MOD 4C 60.0 % LV Ejection Fraction MOD 2C 57.0 % LV Ejection Fraction 2C AL 59.8 % LA Diameter 4.0 cm RA Systolic Volume 4C AL 35.8 ml RA Systolic Volume 4C MOD 35.2 ml Aorta at Sinotubular Diameter 2.8 cm IVC Diameter 2.0 cm M-MODE LA Ao Ratio MM 1.4 AV Cusp Separation MM 1.3 cm DOPPLER AV Peak Velocity 140.0 cm/s LVOT Peak Velocity 118.0 cm/s AV Area Cont Eq vti 2.3 cm squared AV Area Cont Eq pk 2.5 cm squared MV Peak Velocity 111.0 cm/s MV Area PHT 5.0 cm squared Mitral E to A Ratio 1.3 TR Peak Velocity 140.0 cm/s TR Peak Gradient 7.8 mmHg TV Peak E Velocity 124.0 cm/s PV Peak Velocity 130.0 cm/s FINDINGS Left Ventricle Normal left ventricular size and systolic function, EF is normal with EF of 55-60%. No regional wall motion abnormalities. Right Ventricle Normal in size and function Right Atrium Normal in size Left Atrium Normal in size Mitral Valve Structurally normal valve. Mild mitral regurgitation. Aortic Valve Structurally normal aortic valve. No significant stenosis or regurgitation. Tricuspid Valve Insufficient TR jet to create RVSP. Pulmonic Valve Not well visualized Pericardium Normal Aorta Normal in size IVC Appears to be normal CONCLUSIONS LV systolic function is normal with EF of 55-60% Mild mitral regurgitation No comparison studies are available. Koby Shook MD (Electronically Signed) Final Date: 18 July 2025 11:37 S
[2025-07-18] MEDS: diphenhydrAMINE 50 mg/mL SDV 1mL 25 MG IVP (17:01)
--- NOTE | 2025-07-18 18:28 | PC.NURSE ---
SHift SUmmary: Uneventful shift. rested in bed throughout the day waiting on dialysis. At the time of this note patient is receiving dialysis which is a condition for discharge later tonight.
--- NOTE | 2025-07-18 19:49 | P.EN_ITS ---
Event Note Event Note: patient been on oxycodone for his chronic pain management however ran out of medications, prescribed for 2 days untill seen by his PCP. the patient was informed about the plan of care and agreed with it oxycodone being a controlled substance adequate education provided for all the side effects/complications and potential abuse with adequate PCP follow up Event Notes Attestations Time Spent in Patient Care: less than 15 minutes (>than 50% of time spent in counselling and/or direct pt care on unit) .
[2025-07-25 08:30] LABS: Marijuana(Tetrahydrocannabino) POSITIVE
== END 2025-07-18 20:40 | disposition home or self-care (01) | DRG 291 ==
LOC: ER 15:14 → ICU 16:26
PROVIDERS: Internal Medicine Nephrology; Admitting Provider Student in an Organized Health Care Education/Training Program; Emergency Provider Family Medicine; PCP Family Medicine; Visit Provider Internal Medicine
DX: I13.2 Hypertensive heart and chronic kidney disease with heart failure and with stage 5 chronic kidney disease, or end stage renal disease (principal); I50.31 Acute diastolic (congestive) heart failure; N18.6 End stage renal disease; T86.12 Kidney transplant failure; E27.40 Unspecified adrenocortical insufficiency; E87.20 Acidosis, unspecified; I16.0 Hypertensive urgency; G89.29 Other chronic pain; F41.1 Generalized anxiety disorder; F15.21 Other stimulant dependence, in remission; G47.00 Insomnia, unspecified; F32.A Depression, unspecified; F17.290 Nicotine dependence, other tobacco product, uncomplicated; F17.220 Nicotine dependence, chewing tobacco, uncomplicated; D63.1 Anemia in chronic kidney disease; M54.2 Cervicalgia; E87.5 Hyperkalemia; Z99.2 Dependence on renal dialysis; Z91.158 Patient's noncompliance with renal dialysis for other reason
CPT/HCPCS: 36415; 36416; 36430; 71045; 80048; 80053; 80307; 82306; 82310; 82607; 82728; 82746; 82962; 83540; 83550; 83735; 83970; 84100; 85025; 85045; 86706; 86803; 86850; 86900; 86920; 87040; 87340; 90935; 93005; 93306; 94640; 94664; 96365; 96372; 96375; 99285; J0360; J1171; J1200; J1644; J1815; J2270; J2404; J2405; J2470; J3490; J7060; J7613; J9999; P9016; Q3014; Q5105

== ENCOUNTER 2025-07-31 02:52 | Emergency (ER) | payer OTHER, MEDICAID, SELFPAY ==
[2025-07-31 02:56] VITALS: BP 159/110; PULSE 73; RESP 16; TEMP 36.4; O2SAT 100; BMI 20.7
--- OUTSIDE RECORDS SUMMARY | 2025-07-31 03:00 | XMS_ITS | Encounter Summary ---
Author Organization [facility] Address [address] [place] [address] Phone Care Team Providers Care Rotary Bar Operator Name Role Phone Unavailable Primary Care Provider Unavailabl e Encounter Details Date Type Department Care Team (Late st Contact Info) Description 02/15/2025 TCM in Dialysis Clinic [facility] [address] [place] [address] Saskia Peterson [employer]EMAN [address] [facility] [address] [place] [address] Social History Tobacco Use Types [...] 02/15/2025 The patient was seen for a [id number] visit as part of Transitional Care Management services. 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 COMMENTS: See jennifer 1.0. Also hospitalized at [facility] this week for vol overload [...] Reviewed and updated list in p-hub. Current [facility] Outpatient Medications amlodipine 10 mg tablet [...] by mouth every night at bedtime. Current [facility] Allergies Allergen: No Known Allergies Allergen: [...] 99.1*F Current Dialysis Vitals BP Sit: 145/84 AP/ALGEBRA TUTOR: -- Pulse: 88 CARE COORDINATION Post-discharge follow-up [...] Discussed with staff. VISIT DIAGNOSES CPT Code 37651 - High complexity, seen within 7 days [...]
--- OUTSIDE RECORDS SUMMARY | 2025-07-31 03:00 | XMS_ITS | Clinical Summary ---
Author Organization [facility], [facility] Address [address] [place] [address] Phone Care Team Providers Care Residential Living Assistant Name Role Phone Unavailable Primary Care Provider Unavailabl e Encounters Date Type Department Care Team Description 07/27/2025 Treatment [facility] [address] [place] [address] Saskia Navas, TINO Hyperkalemia; Hypertensive urgency; End stage renal disease; Dependence on renal dialysis 07/27/2025 TCM in Dialysis Clinic [facility], [facility] [address] [place] [address] Saskia Navas NP 07/25/2025 Orders Only [facility], [facility] [address] [place] [address] Shahriar Byers MD 07/20/2025 Orders Only [facility], [facility] [address] [place] [address] Shahriar Byers MD 07/20/2025 Treatment [facility] [employer], [facility] [address] [place] [address] Saskia Navas NP End stage renal disease; Dependence on renal dialysis 2025 Orders Only [facility] [employer], [facility] [address] [place] [address] Shahriar Byers MD 2025 Treatment [facility] [employer], [facility] [address] [place] [address] Shahriar Byers MD End stage renal disease; Dependence on renal dialysis 07/06/2025 [facility], [facility] [address] [place] [address] Shahriar Byers MD 07/06/[address] [place] [address], [facility] [address] [place] [address] Saskia Navas NP End stage renal disease; Dependence on renal dialysis 07/05/2025 [facility], [facility] [address] [place] [address] Shahriar Byers MD 06/20/2025 Orders Only [facility], [facility] [address] [place] [address] Shahriar Byers MD 06/14/2025 Treatment [facility], [facility] [address] [place] [address] Shahriar Byers MD End stage renal disease; Dependence on renal dialysis 06/12/2025 Orders [facility], [facility] [address] [place] [address] Shahriar Byers MD 06/05/2025 Orders Only [facility] [address] [place] [address] Shahriar Byers MD 05/30/2025 Orders Only [facility], [facility] [address] [place] [address] Shahriar Byers MD 05/26/[address] [place], [place] [address]rology [facility], [facility] [address] [place] [address] Saskia Navas NP End stage renal disease; Dependence on renal dialysis 05/25/[address] [place] [address] [facility], [facility] [address] [place] [address] Saskia Navas NP End stage renal disease; Dependence on renal dialysis 05/23/2025 Orders Only [facility], [facility] [address] [place] [address] Shahriar Byers MD 05/15/2025 Orders Only [facility], [facility] [address] [place] [address] Shahriar Byers MD 05/10/2025 Orders Only [facility], [facility] [address] [place] [address] Shahriar Byers MD 05/10/[address] [place], [place] [address] [facility], [facility] [address] [place] [address] Shahriar Byers MD End stage renal disease; Dependence on renal dialysis 05/05/2025 Treatment [facility], [facility] [address] [place] [address] Saskia Navas NP End stage renal disease; Dependence on renal dialysis 05/03/2025 Refill [facility], [facility] [address] [place] [address] Jasmin Carson MA 05/01/2025 Orders Only [facility], [facility] [address] [place] [address] Shahriar Byers MD from Last [...] Priority Date/Time Associated Diagnosis Comments HEMATOLOGY Routine 07/25/2025 HEMATOLOGY Routine 07/20/2025 TRACE ELEMENTS Routine 2025 [facility] RESULTS Routine 2025 SPECIAL [...] 05/01/2025 CHEMISTRY Routine 05/01/2025 HEMATOLOGY Routine 05/01/2025 from Last 3 Months Results * (ABNORMAL) HEMATOLOGY (07/25/2025) Only the most recent of12 resultswithin the time period is included. Hemoglobin 8.0(L) 14.0 - 18.0 g/dL [facility] Hemoglobin x 3 24(L) 42.0 - 54.0 % [facility] 07/25/2025 07/26/2025 10: 45 AM CDT Narrative DENNIS - 07/26/2025 Unless otherwise specified, test(s) performed at: [facility], [address] [place] [id number] HEALTH AIDE: Ryan Singer M.D. For any questions, please call customer service at FREQUENCY:OTHER Resulting Agency Comment Specimen source: Blood Shahriar Byers MD LAB BLOOD ORDERABLES Final Result Performing Organization Address [facility] Co de Phone Number [facility] See order comments or contact performing lab Unknown, [place] * HD KINETICS (2025) Only the most recent of4 resultswithin the time period is included. % Urea Reduction 69 65 - 80 % [facility] 2025 07/14/2025 9:4 7 AM CDT Narrative Resulting Agency Comment Specimen source: Plasma Shahriar Byers MD LAB BLOOD ORDERABLES Final Result Performing Organization Address [facility] de Phone Number [employer] See order comments or contact performing lab Unknown, [place] * SPECIAL CHEMISTRY (2025) Only the most recent of2 resultswithin the time period is included. Vitamin D, 25-OH, Total 48.0 30.0 - 100.0 ng/mL [facility] Comment: Please Note: Effective August 17, 2023, the methodology for this test has changed to the [facility]. 2025 07/14/2025 9:3 3 AM CDT Narrative Resulting Agency Comment Specimen source: Serum Shahriar Byers MD LAB BLOOD BANK TEST O RDERABLES Final Result Performing Organization Address [facility] de Phone Number [employer] See order comments or contact performing lab Unknown, [place] * (ABNORMAL) POST CHEMISTRY (2025) Only the most recent of4 resultswithin the time period is included. BUN Post Dialysis 20(H) 6 - 19 mg/dL [facility] 2025 07/14/2025 9:4 7 AM CDT Narrative [facility] - 07/14/2025 Unless otherwise specified, test(s) performed at: [facility], [address] [place], [place] [id number] HEALTH AIDE: Ryan Singer M.D. For any questions, please call customer service at FREQUENCY:MONTHLY Resulting Agency Comment Specimen source: Plasma Shahriar Byers MD LAB BLOOD ORDERABLES Final Result Performing Organization Address [facility] de Phone Number [facility] See order comments or contact performing lab Unknown, [place] * TRACE ELEMENTS (2025) Pathologist [facility] Aluminum <5 0 - 10 mcg/L [facility] Comment: This test was developed and its performance characteristics determined by [facility]. It has not been cleared or approved by the FDA. The laboratory is regulated under CLIA as qualified to perform high complexity testing. This test is used for clinical purposes. It should not be regarded as investigational or for research. 2025 07/14/2025 9:3 2 AM CDT Narrative [facility] - 07/18/2025 Unless otherwise specified, test(s) performed at: [facility], [address] [place], [place] [id number] HEALTH AIDE: Ryan Singer M.D. For any questions, please call customer service at FREQUENCY:MONTHLY Resulting Agency Comment Specimen source: Serum Shahriar Byers MD LAB BLOOD ORDERABLES Final Result Performing Organization Address [facility] de Phone Number [employer] See order comments or contact performing lab Unknown, [place] * (ABNORMAL) [facility] (2025) Only the most recent of8 resultswithin the time period is included. Pathologist [facility] BUN 64(H) 6 - 19 mg/dL [facility] [...] 07/14/2025 Unless otherwise specified, test(s) performed at: [facility], [address] [place] [address] HEALTH AIDE: Ryan Singer M.D. For any questions, please call customer service at FREQUENCY:MONTHLY Resulting Agency Comment Specimen source: Serum us Shahriar Byers MD LAB BLOOD ORDERABLES Edited Result - Final [facility] See order comments or contact performing lab Unknown, [place] * [facility] Results (2025) Only the most recent of3 resultswithin the time period is included. WSTDKT/V 0.8 [facility] eKt/V (Tattersall) 1.14 [facility] spKt/V (Daugirdas II) 1.43 [facility] 2025 2025 us Eduardo Ordering Provider LAB BLOOD ORDERABLES Final Result [facility] Contact Performing lab Unknown, [place] from Last 3 Months Insurance Medicaid [place] ([id number]) UHC Medicare
--- OUTSIDE RECORDS SUMMARY | 2025-07-31 03:00 | XMS_ITS | Encounter Summary ---
Author Organization [facility] Address [address] [place] [address] Care Team Providers Care Electro Optics Engineer Name Role Phone Beverly Veronica MD Primary Care Provider +1- [phone] Encounter Details Date Type Department Care Team (Late st Contact Info) Description 06/20/2025 Results Follow-Up [facility] [address] [place] [address] Garry Randolph MD [address] [place] [address] MRI CERVICAL WO CONTRAST Social [...] on file Legal Sex Male 8:04 PM HEAD OF DATA Gender Identity Not on file Sexual Orientation [...] st Contact Info) Description 12/05/2025 2:40 PM HEAD OF DATA Office Visit [facility] [address] [address] Beverly Veronica MD [address] [address] documented as of this encounter Visit Diagnoses Not on filedocumented in this encounter Additional Health Concerns Assessment Noted Time PHQ-9 Depression Total Score: 3 05/29/20 25 3:06 PM CDT documented as of this encounter Care Teams Electro Optics Engineer Relationship Specialty Start Date End Date Beverly Veronica MD [address] [address] PCP - General Family Practice 05/29/25 documented as of this encounter
--- OUTSIDE RECORDS SUMMARY | 2025-07-31 03:00 | XMS_ITS | Encounter Summary ---
Author Organization [facility] Address [address] [address] Phone Care Team Providers Care Student Dean Name Role Phone Unavailable Primary Care Provider Unavailabl e Encounter Details Date Type Department Care Team (Late st Contact Info) Description 04/01/2023 Telephone [facility] [address] [address] Shawn Betancourt MD [address] [place] [address] Social History Tobacco Use Types Packs/Day Years [...]
--- OUTSIDE RECORDS SUMMARY | 2025-07-31 03:00 | XMS_ITS | Encounter Summary ---
Author Organization [facility] Address [address] [place] [address] Care Team Providers Care Feller Machine Operator Name Role Phone Beverly Veronica MD Primary Care Provider +1- [phone] Encounter Details Date Type Department Care Team (Late Contact Info) Description 07/25/2025 External Device Data STL ABSTRACTION Provider, Abstract [...] on file Legal Sex Male 8:04 PM MANAGEMENT TRAINEE PROGRAM STORES Gender Identity Not on file Sexual Orientation Not on file documented as of this encounter Plan of Treatment Upcoming Encounters Date Type Department Care Team (Late Contact Info) Description 12/05/2025 2:40 PM MANAGEMENT TRAINEE PROGRAM STORES Office Visit [address] [phone] Beverly Veronica MD [address] [address] documented as of this encounter Visit Diagnoses Not on filedocumented in this encounter Additional Health Concerns Assessment Noted Time PHQ-9 Depression Total Score: 3 05/29/20 25 3:06 PM CDT documented as of this encounter Care Teams Feller Machine Operator Relationship Specialty Start Date End Date Beverly Veronica MD [address] [address] PCP - General Family Practice 05/29/25 documented as of this encounter
--- OUTSIDE RECORDS SUMMARY | 2025-07-31 03:00 | XMS_ITS | Encounter Summary ---
Author Organization [facility], [facility] Address [address] [place] [address] Phone Care Team Providers Care Director Of Distribution Name Role Phone Unavailable Primary Care Provider Unavailabl e Encounter Details Date Type Department Care Team (Late st Contact Info) Description 07/25/2025 Orders Only [facility] [address] [place] [address] Shahriar Byers MD [address] [facility] [address] [place] [address] Social History Tobacco Use Types [...] Date/Time Associated Diagnosis Comments HEMATOLOGY Routine 07/25/2025 documented in this encounter Results * (ABNORMAL) HEMATOLOGY (07/25/2025) Hemoglobin 8.0(L) 14.0 - 18.0 g/dL [facility] Hemoglobin x 3 24(L) 42.0 - 54.0 % [facility] 07/25/2025 07/26/2025 10: 45 AM CDT Narrative [facility] - 07/26/2025 Unless otherwise specified, test(s) performed at: [facility], [address] [place], [place] [id number] CASHIER HOST/HOSTESS: Ryan Singer, M.D. For any questions, please call customer service at FREQUENCY:OTHER Resulting Agency Comment Specimen source: Blood us Shahriar Byers MD LAB BLOOD ORDERABLES Final Result [facility] See order comments or contact performing lab Unknown, [place] documented in this encounter Visit Diagnoses Not on filedocumented in this encounter
--- OUTSIDE RECORDS SUMMARY | 2025-07-31 03:00 | XMS_ITS | Encounter Summary ---
Author Organization [facility] Address [address] [place] [address] Care Team Providers Care Car Usher Name Role Phone Beverly Veronica MD Primary Care Provider +1- [phone] Encounter Details Date Type Department Care Team [...] on file Legal Sex Male 8:04 PM NIGHT TIME NANNY Gender Identity Not on file Sexual Orientation Not on file documented as of this encounter Plan of Treatment Upcoming Encounters Date Type Department Care Team (Late Contact Info) Description 12/05/2025 2:40 PM NIGHT TIME NANNY Office Visit [address] [phone] Beverly Veronica MD [address] [address] documented as of this encounter Visit Diagnoses Not on filedocumented in this encounter Additional Health Concerns Assessment Noted Time PHQ-9 Depression Total Score: 3 05/29/20 25 3:06 PM CDT documented as of this encounter Care Teams Car Usher Relationship Specialty Start Date End Date Beverly Veronica MD [address] [address] PCP - General Family Practice 05/29/25 documented as of this encounter
--- OUTSIDE RECORDS SUMMARY | 2025-07-31 03:00 | XMS_ITS | Encounter Summary ---
Author Organization [facility] Address [address] [place] [address] Care Team Providers Care Tour Conductor Name Role Phone Beverly Veronica MD Primary Care Provider +1- [phone] Reason for Visit * Reason Comments Information Encounter Details Date Type Department Care Team ([facility] st Contact Info) Description 06/29/2025 Telephone [facility] [address] [address] Beverly Veronica MD [address] [place] [address] Information Social History Tobacco Use Types [...] on file Legal Sex Male 8:04 PM MEDICAL RECORD RETRIEVAL SPECIALIST Gender Identity Not on file Sexual Orientation [...] - 06/29/2025 11:47 AM CDT Copied from [facility] #[id number]. Topic: Established Patient Care >> Jun 29, 2025 11:42 AM Asya Mckeon wrote: Is the patient established with a [facility] provider? Yes, select appropriate option in Discharge Facility SmartList Caller Name: Harjinder with [facility] Callback Number: [phone] Call Notes: Calling reporting pt will be discharging today 06/29 from [facility] hypertension urgency. Scheduled pt for first [...] st Contact Info) Description 12/05/2025 2:40 PM MEDICAL RECORD RETRIEVAL SPECIALIST Office Visit [facility] [address] [address] Beverly Veronica MD [address] [address] documented as of this encounter Visit Diagnoses Not on filedocumented in this encounter Additional Health Concerns Assessment Noted Time PHQ-9 Depression Total Score: 3 05/29/20 25 3:06 PM CDT documented as of this encounter Care Teams Tour Conductor Relationship Specialty Start Date End Date Beverly Veronica MD [address] [place] [phone] PCP - General Family Practice 05/29/25 documented as of this encounter
--- OUTSIDE RECORDS SUMMARY | 2025-07-31 03:00 | XMS_ITS | Encounter Summary ---
Author Organization [facility] Address [address] [place] [address] Care Team Providers Care Health Screener Name Role Phone Beverly Veronica MD Primary Care Provider +1- [phone] Encounter Details Date Type Department Care Team ([facility] Contact Info) Description 07/19/2025 Orders Only [facility] Information Management [place] [address] [place] [id number] Provider, Abstract NO ADDRESS ON FILE Social [...] on file Legal Sex Male 8:04 PM ENERGY PROJECTS LEAD Gender Identity Not on file Sexual Orientation Not on file documented as of this encounter Plan of Treatment Upcoming Encounters Date Type Department Care Team (Late Contact Info) Description 12/05/2025 2:40 PM ENERGY PROJECTS LEAD Office Visit [facility] [place] [address] [phone] Beverly Veronica MD [address] [address] documented as of this encounter Procedures Procedure Name Priority Date/Time Associated Diagnosis Comments COMPREHENSIVE METABOLIC PANEL Routine 07/18/2025 8:51 AM CDT ECHO COMPLETE Routine 07/18/2025 8:50 AM CDT BASIC METABOLIC PANEL Routine 07/17/2025 8:52 AM CDT COMPREHENSIVE METABOLIC PANEL Routine 07/17/2025 8:51 AM CDT documented in this encounter Results * COMPREHENSIVE METABOLIC PANEL (07/18/2025 8:51 AM CDT) Blood us Abstract Provider CHEMISTRY ORDERABLES Final Res ult * ECHO COMPLETE - CONTRAST AND STRAIN IF INDICATED (07/18/2025 8:50 AM CDT) us Abstract Provider US ORDERABLES Final Result * BASIC METABOLIC PANEL (07/17/2025 8:52 AM CDT) Blood us Abstract Provider CHEMISTRY ORDERABLES Final Res ult * COMPREHENSIVE METABOLIC PANEL (07/17/2025 8:51 AM CDT) Blood us Abstract Provider CHEMISTRY ORDERABLES Final Res ult documented in this encounter Visit Diagnoses Not on filedocumented in this encounter Additional Health Concerns Assessment Noted Time PHQ-9 Depression Total Score: 3 05/29/20 25 3:06 PM CDT documented as of this encounter Care Teams Health Screener Relationship Specialty Start Date End Date Beverly Veronica MD [address] [address] PCP - General Family Practice 05/29/25 documented as of this encounter
--- OUTSIDE RECORDS SUMMARY | 2025-07-31 03:00 | XMS_ITS | Clinical Summary ---
Author Organization [facility] Address [address] [place] [address] Phone Care Team Providers Care Motor Vehicle Escort Driver Name Role Phone Unavailable Primary Care [...] patient's age to complete this topic Insurance [employer] MEDICARE
--- OUTSIDE RECORDS SUMMARY | 2025-07-31 03:00 | XMS_ITS | Encounter Summary ---
Author Organization [facility], [facility] Address [address] [address] Phone Care Team Providers Care Communications Operator Name Role Phone Unavailable Primary Care Provider Unavailabl e Reason for Visit * Reason Comments Med Refill Encounter Details Date Type Department Care Team (Late st Contact Info) Description 04/14/2024 Refill [facility] [address] [facility] [address] [place] [address] Shahriar Byers MD [address] [address] Social History Tobacco Use Types [...]
--- OUTSIDE RECORDS SUMMARY | 2025-07-31 03:00 | XMS_ITS | Encounter Summary ---
Author Organization [facility] [employer], [facility] Address [address] [place] [address] Phone Care Team Providers Care Forklift Picker Name Role Phone Unavailable Primary Care Provider Unavailabl e Encounter Details Date Type Department Care Team (Late st Contact Info) Description 07/27/2025 Treatment [facility] [employer], [facility] [address] [place] [address] Saskia Navas NP [address] [facility] [address] [place] [address] Hyperkalemia; Hypertensive urgency; End stage renal disease; [...] Dialysis Note - Saskia Navas NP - 07/27/2025 12:00 AM CDT Patient: Vance Sainz, 2000, 25y, M Dialysis Location: [facility] Attending Banking Consultant: Shahriar Byers Service Date: 07/27/2025 Service Provider: Saskia Navas NP I met face to face with the patient today. 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 Reviewed medications, out ofseveral. New rx sent to pharmacy. Took max on Thursday and he felt terrible. Better on Thursday. Discussed need for UF to better manage fluid status to help with hypertension. He is agreeable. Medications and labs reviewed. HOME MEDICATIONS Home Medications: nifedipine 90 mg, by mouth, Take 1 tablet once a day as directed prednisone 5 mg, by mouth, Take 1 tablet once a day as directed history of kidney transplant Lokelma (sodium zirconium cyclosilicate) 5 gram, dissolved in water, Take 1 packet once a day as directed oxycodone 5 mg, by mouth, Take 1 tablet every six hours as needed for pain fluoxetine 10 mg, by mouth, Take 1 capsule once a day as directed labetalol 100 mg, by mouth, Take 2 tablet twice a day clonidine HCl tablet 0.1 mg, as directed, Take 2 tablet three times a day as directed losartan 50 mg, by mouth, 1 tablet once a day Sevelamer Carbonate Tablet (Renvela) 800 mg, By Mouth, Take 2 Tablet Three times a day With Meals Take 1-2 tablets po TID with meals. 2 tablets for larger meals and 1 for smaller meals. divalproex 500 mg, by mouth, 1 tablet twice a day clonazepam 1 mg, by mouth, Take 1 tablet twice a day as directed hydralazine 100 mg, by mouth, Take 1 tablet three times a day for high blood pressure methocarbamol 750 mg, by mouth, Take 1 tablet every eight hours as needed for muscle spasm sumatriptan 20 mg/actuation, into one nostril, 1 spray every twelve hours as needed Allergies: No Known Allergies LAST HOSPITALIZATION Discharge Diagnosis: I10 Essential (primary) hypertension E87.5 Hyperkalemia Admission Date 07/17/25 Discharge Date 07/18/25 DIALYSIS PRESCRIPTION IHD 3x Week Start date: 07/18/25 Dialyzer: 180NRe Optiflux BFR: 400 DFR: Autoflow 2 Potassium: 2.0 Sodium: 137 EDW: 45 Duration: 3:00 Calcium: 2.5 Bicarb: 35 Rx updated on: 07/17/2025 TREATMENT ASSESSMENT Comments: non compliant, missed Hd treatments, meds Blood pressure elevated. No changes indicated. BP Stand Pre 07/25/2025: 207/136 07/22/2025: 219/151 07/20/2025: 225/143 BP Sit Pre 07/25/2025: 201/125 07/22/2025: 227/146 07/20/2025: 219/145 BP Stand Post 07/25/2025: 189/115 07/22/2025: 204/138 07/20/2025: 194/121 BP Sit Post 07/25/2025: 193/115 07/22/2025: 214/142 07/20/2025: 198/31 Prescribed Tx time 07/25/2025: 3:00 07/22/2025: 3:00 07/20/2025: 3:00 Tx Duration 07/25/2025: 2:59 07/22/2025: 3:03 07/20/2025: 1:35 Missed Treatments 5 - last 30 days 12 - last 60 days 07/15 - recent FLUID ASSESSMENT Comments: non compliant, missed treatments Fluid status not acceptable. Interdialytic weight gain not acceptable. Optimal weight discussed. EDW (kg) 07/25/2025: 45.0 07/22/2025: 45.0 07/20/2025: 45.0 Weight Pre (kg) 07/25/2025: 51.6 07/22/2025: 53.9 07/20/2025: 53.2 Weight Post (kg) 07/25/2025: 50.0 07/22/2025: 49.5 07/20/2025: 51.7 PWV (kg) 07/25/2025: 5.0 07/22/2025: 4.5 07/20/2025: 6.7 UF Rate (mL/kg/hr) 07/25/2025: 10.7 07/22/2025: 29.1 07/20/2025: 18.3 ACCESS ASSESSMENT Access Type: AVFistula Access SubType: Standard Access Status: Active (In Use) - 08/14/2023 Access Location: Right Forearm Created: --/--/---- Flow 05/26/2025: 385 05/03/2025: 842 04/28/2025: 576 Vascular access reviewed. Current access is permanent and functioning well. ANEMIA ASSESSMENT Comments: suspect some dilutional with vol excess. HGB below goal. Treatment protocol ordered. 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 Resumed dialysis in 2022 at [facility]. Patient is stable. Patient discussed with nursing. Patient data updated 07/27/2025 at 9:51 AM Signed By: Saskia Navas NP on 07/27/2025 9:53:22 AM documented in this encounter Plan of Treatment Not on file documented as of this encounter Visit Diagnoses Diagnosis Hyperkalemia Hypertensive urgency End stage renal disease Dependence on renal dialysis documented in this encounter
--- OUTSIDE RECORDS SUMMARY | 2025-07-31 03:00 | XMS_ITS | Encounter Summary ---
Author Organization [facility] [employer], [facility] Address [address] [place] [address] Phone Care Team Providers Care Equipment Installer Name Role Phone Unavailable Primary Care Provider Unavailabl e Encounter Details Date Type Department Care Team (Late st Contact Info) Description 07/27/2025 TCM in Dialysis Clinic [facility] [employer] [employer], [facility] [address] [place] [address] Saskia Navas NP [address] [facility] [address] [facility] [address] [place] [address] Social History Tobacco Use Types Packs/Day Years Used Date Smoking Tobacco: Never Assessed Sex and Gender Information Value Date Recorded Sex Assigned at Not on file Legal Sex Male 12:34 PM EST Gender Identity Not on file Sexual Orientation Not on file documented as of this encounter Progress Notes * Saskia Navas NP - 07/27/2025 12:00 AM CDT Patient: Vance Sainz, 2000, 25y, M Dialysis Location: [facility] Attending Ceo [place]: Shahriar Byers Service Date: 07/27/2025 Service Provider: Saskia Navas NP I met face to face with the patient today. HOSPITALIZATION SUMMARY Patient has transitioned in the past 30 days from: Hospital. Setting patient transitioned to: Home. Admission Date: 07/17/2025 Discharge Date: 07/18/2025 Reason for admission: Hyperkalemia, hypertenisve urgency Discharge diagnosis: I10 Essential (primary) hypertension E87.5 Hyperkalemia Discharge information reviewed: No outstanding diagnostic tests and treatments DIAGNOSES Conditions addressed during visit: I16.0 Hypertensive urgency Comments: Monitor BP. Encourage medication compliance and dialysis compliance to better manage vol status. Prn clonidine at treatment. E87.5 Hyperkalemia Comments: Monitor lab. Encourage low K diet. Continue potassium binder. Encourage dialysis compliance. MEDICATIONS Comments: out of nifedipine, prednisone and hydralazine. Updated rx sent to pharmacy. Discharge med list reviewed - changes reconciled and discussed with patient. Active treatment medication orders reviewed - no changes. PHYSICAL EXAM Exam Performed. Vital Signs Reviewed. CV - Blood pressure noted. CV - RRR. EXT - 2+ edema. DIALYSIS PRESCRIPTION Dry weight during admission reviewed - no change to EDW. CARE COORDINATION Comments: PCP Post discharge follow-up appointments reviewed with the patient. IMPRESSION & PLAN Comments: ESRD on IC HD, non compliant. Encouraged compliance with treatment and medications. Continue monthly labs. continue TTS treatment at [facility]. Malignant hypertension with non compliance with medication and treatment. Updated rx he has been out of. Will try to set up UF tomorrow Hyperkalemia due to non compliance. Continue Low K diet. Continue potassium binder. Continue to track labs. Signed By: Saskia Navas NP on 07/27/2025 9:51:10 AM documented in this encounter Plan of Treatment Not on file documented as of this encounter Visit Diagnoses Not on filedocumented in this encounter
--- OUTSIDE RECORDS SUMMARY | 2025-07-31 03:00 | XMS_ITS | Clinical Summary ---
Author Organization [facility] Address [address] [place] [address] Phone Care Team Providers Care Caterer Helper Name Role Phone Beverly Veronica MD Primary Care Provider [phone] Allergies Active Allergy Reactions Criticality Noted Date [...] days 3x a week 02/01/20 25 Active amLODIPine (NORVASC) 10 mg tablet [...] daily. 30 Tablet 2 02/04/20 25 Active vit B,D-EB-evii-se mishel-vit D3-E (RenaPlex-D) 800 mcg-12.5 mg -2,000 unit Tablet Take 1 Tablet by mouth. 02/16/20 25 Active FLUoxetine (PROzac) 10 mg capsule Take 1 Capsule by mouth daily. 05/19/20 25 Active methocarbamoL (ROBAXIN) 1,000 mg Tablet tablet Take 1 Tablet by mouth every 6 hours. 04/14/20 25 Active methoxy peg-epoetin beta (MIRCERA INJECTION) 75 mcg every 2 weeks. 04/21/20 25 026 Active cefdinir (OMNICEF) 300 mg capsule Take 1 Capsule by mouth 2 times daily. 07/12/20 25 Active divalproex (DEPAKOTE) 500 mg delayed release tablet Take 1 Tablet by mouth 2 times daily. 06/30/20 25 Active oxyCODONE (ROXICODONE) 5 mg tabletIndicati ons:Chronic neck pain Take 1 Tablet (5 mg) by mouth every 8 hours as needed for Pain. Max Daily Amount: 15 mg 21 Tablet 07/21/20 25 Active naloxone (NARCAN) 4 mg/spray [place], Non-Aerosol EMERGENCY USE ONLY: Administer 1 spray (4 mg) in one nostril one time. May repeat in alternating nostrils every 2-3 min until responsive or EMS arrives. 2 Each 3 07/21/20 25 Active HYDROcodone-ac etaminophen (NORCO) 5-325 mg tablet TAKE 1 TO 2 TABLETS ORALLY EVERY 6 HOURS 03/28/20 25 025 Discontinu ed(Alterna te therapy prescribed ) Active Problems Problem Noted Date Diagnosed Date Ex-smoker 07/14/2025 Chronic neck pain 05/16/2025 Myofascial pain 05/16/2025 DDD (degenerative disc disease), cervical 2024 Cervical spondylosis without myelopathy 05/16/20 25 Cannabis use disorder 02/02/2025 Seizure disorder 01/31/2025 PRES (posterior reversible encephalopathy syndro me) 01/31/2025 ESRD (end stage renal disease) 01/31/2025 [...] Problem Noted Date Diagnosed Date Resolved Date Hypertensive emergency 01/31/202507/21 Seizure 01/31/2025 05/29/2025 Encounters Date Type Department Care Team Description 07/25/2025 External Device Data ST[facility] ABSTRACTION Provider, Abstract 07/25/2025 External Device Data [facility] ABSTRACTION Provider, Abstract 07/21/2025 11:40 AM CDT Office Visit [address] [address] Beverly Veronica MD Chronic neck pain (Primary Dx); Dependence on renal dialysis; Anemia in chronic kidney disease, on chronic dialysis (CMS/[facility]) 07/20/2025 12:20 AM CDT - 07/20/2025 11:59 PM CDT Hospital Encounter [facility] [address] [place] [phone] Ambulance, [facility] Discharge Disposition: Home or Self Care 07/19/2025 Orders Only [facility] Health Information Management [place] [address] [place] [address] Provider, Abstract 07/14/2025 11:20 AM CDT Office Visit [address] [phone] Beverly Veronica MD Acute pulmonary edema (CMS/HCC) (Primary Dx); Abscess; ESRD (end stage renal disease) (CMS/HCC); Chronic neck pain; Refused influenza vaccine 07/10/2025 - 07/10/2025 11:59 PM CDT Hospital Encounter [facility] [address] [address] Ambulance, [facility] Discharge Disposition: [facility] 07/08/2025 6:50 AM CDT - 07/08/2025 11:59 PM CDT Hospital Encounter [facility] [address] [address] [facility] 07/06/2025 1:50 PM CDT - 07/06/2025 11:59 PM CDT Hospital Encounter [facility] [address] [address] [facility] 07/04/2025 Orders Only [facility] Health Information Management [place] [address] [place] [address] Provider, Abstract 07/03/2025 6:45 AM CDT - 07/03/2025 11:59 PM CDT Hospital Encounter [address] [address] [facility] 06/29/2025 Telephone [facility] Family Medicine [place] [address] [address] Beverly Veronica MD Information 06/27/2025 External Device Data [facility] ABSTRACTION Provider, Abstract 06/20/2025 External Device Data [facility] ABSTRACTION Provider, Abstract 06/20/2025 Results Follow-Up [facility] Pain [facility] [address] [place] [address] Garry Randolph MD MRI CERVICAL WO CONTRAST 06/15/2025 11:29 AM CDT - 06/15/2025 11:59 PM CDT Hospital Encounter [facility] [address] [place] [address] Garry Randolph MD Discharge Disposition: Home or Self Care 05/30/2025 External Device Data ST[facility] ABSTRACTION Provider, Abstract 05/29/2025 2:40 PM CDT Office Visit [facility] [place] [address] [address] Beverly Veronica MD Abrasion, foot without infection (Primary Dx); Seizure disorder ([facility]/HCC); Severe major depressive disorder ([facility]/HCC); ESRD (end stage renal disease) ([facility]/HCC) 05/24/2025 External Device Data ST[facility] ABSTRACTION Provider, Abstract 05/16/2025 3:00 PM CDT Office Visit [facility] Pain [facility] [address] [place] [address] Garry Randolph MD Chronic neck pain (Primary [...] PNEUM OCOCCAL CONJUGATE VACCINE 20-VALENT (PCV20), POLYSACCHARIDE [id number] CONJUGATE, ADJUVANT 0.5 ML (PF) IM 12/14/2024 [...] on file Legal Sex Male 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 Gender Identity Not on file Sexual Orientation Not on file Last Filed Vital Signs Vital Sign Reading Time Taken Comments Blood Pressure 146/88 07/21/2025 11:45 AM CDT Pulse 84 07/21/2025 11:45 AM CDT Temperature 36.7 C (98.1 F) 07/21/2025 11:45 AM CDT Respiratory Rate 19 07/21/2025 11:45 AM CDT Oxygen Saturation 98% 07/21/2025 11:45 AM CDT Inhaled Oxygen Concentration - - Weight 52.8 kg (116 lb 6.4 oz) 07/21/2025 11:45 AM CDT Height 154.9 cm (5' 1 ) 07/21/2025 11:45 AM CDT Body Mass Index 21.99 07/21/2025 11:45 AM CDT Plan of Treatment Upcoming Encounters Date Type Department Care Team (Late st Contact Info) Description 12/05/2025 2:40 PM PROGRAM PROPOSALS COORDINATOR Office Visit [facility] [address] [phone] Beverly Veronica MD [address] [address] Health Maintenance Due Date Last [...] METABOLIC PANEL Routine 07/17/2025 8:51 AM CDT COMPREHENSIVE METABOLIC PANEL Routine 06/29/2025 10:20 AM CDT COMPREHENSIVE METABOLIC PANEL Routine 06/28/2025 10:21 AM CDT COMPREHENSIVE METABOLIC PANEL Routine 06/27/2025 10:20 AM CDT MRI CERVICAL WO CONTRAST Routine 06/15/2025 12:52 PM CDT Chronic neck pain Myofascial pain DDD (degenerative disc disease), cervical Cervical spondylosis without myelopathy Cervical stenosis of spinal canal from Last 3 Months Results * COMPREHENSIVE METABOLIC PANEL (07/18/2025 8:51 AM CDT) Only the most recent of5 resultswithin the time period is included. Blood [...] Randolph MD MR ORDERABLES Final Resu lt from Last 3 Months Insurance [place] D[place] COMPLETE HMO DSNP [facility] [id number] RX [employer] RX Member Subscriber Plan / Payer (Ef fective 2025-Present) Name:Vance Sainz Relation to Subscriber:Self Name:Vance Sainz Subscriber ID:Not on file Payer ID:Not on file Group ID:[id number] Type:RX Medicare Part D Address: [place] Advance Directives For more information, please contact: [phone] * Full Code (Latest Code Status on File) Date Activated Date Inactivated Comments 01/31/2025 2:27 PM 02/03/2025 8:44 PM Care Teams Caterer Helper Relationship Specialty Start Date End Date Beverly Veronica MD [address] [place] [phone] PCP - General Family Practice 05/29/25
--- OUTSIDE RECORDS SUMMARY | 2025-07-31 03:00 | XMS_ITS | Encounter Summary ---
Author Organization [employer], [facility] Address [address] [facility] [facility] [address] [place] [address] Phone Care Team Providers Care Roller Printer Name Role Phone Unavailable Primary Care Provider Unavailabl e Encounter Details Date Type Department Care Team (Late st Contact Info) Description 08/27/2022 [facility] [employer] [facility] [address] [facility] [facility] [address] [place] [address] Kidney transplant status Social History [...]
[2025-07-31] MEDS: HYDROmorphone 0.5 MG/0.5 ML INJ 1 MG IM (03:57)
[2025-07-31 03:59] VITALS: BP 157/106; PULSE 69; O2SAT 98
--- NOTE | 2025-07-31 04:00 | ED_ITS ---
HPI - Back Pain/Injury 2 General: Chief Complaint: Back Pain/Injury Stated Complaint: Head, Neck and Back Pain Time Seen by Provider: 07/31/25 03:30 History of Present Illness: 25-year-old male with end-stage renal di ifeanyi on dialysis. He is well-known to the emergency department service. He presents with an exacerbation of his chronic neck pain which has been going on for the last 3 days or so. He had pain medication filled by his primary physician around 11 days ago, but has run out. He states that he received a weeks worth at that time. He took his last pill yesterday without improvement. He goes to dialysis on Thursday and Thursday. He has not missed dialysis. He is concerned because his neck usually hurts when his blood pressure is significantly elevated, but it was not that high this morning. Related Data Home Medications ?Medication ?Instructions ?Recorded ?Confirmed labetalol 100 mg tablet 200 mg PO BID 09/11/2407/17 hydralazine 100 mg tablet 100 mg PO TID 04/05/2507/17 sumatriptan 20 mg/actuation nasal 20 mg intranasal Q12 H PRN Migraine 04/05/25 07/17/25 spray Headache fluoxetine 10 mg capsule 10 mg PO DAILY 06/28/2506/20 nifedipine 30 mg tablet,extended 90 mg PO DAILY 07/17/25 release 24 hr prednisone 5 mg tablet See Rx Instructions .Route . COMPLEX 07/17/25 07/17/25 sevelamer carbonate 800 mg tablet See Rx Instructions .Route .COMPLEX 07/17/25 07/17/25 Previous Rx's ?Medication ?Instructions ?Recorded clonazepam 1 mg tablet (Klonopin) 1 mg PO BID PRN anxi ety #10 tabs 01/09/25 acetaminophen 325 mg tablet 650 mg (2 x 325 mg) PO Q6H PRN 06/29/25 Mild/Mod Pain Or Temp >/= 101 #30 tabs clonidine HCl 0.1 mg tablet 0.2 mg (2 x 0.1 mg) PO TID #90 tabs 06/29/25 divalproex 500 mg tablet,delayed 500 mg PO BID #60 tab s 06/29/25 release losartan 50 mg tablet 50 mg PO DAILY #30 tabs 06/19 11/12 methocarbamol 750 mg tablet 750 mg PO Q8H PRN muscle s pasm #30 07/08/25 tabs sodium zirconium cyclosilicate 5 5 g PO DAILY #11 ea 0 07/12/25 gram oral powder packet (Lokelma) Allergies Allergy/AdvReac Type Severity Reaction Status Date / Time NSAIDS (Non-Steroidal Allergy Severe unable to Verified 06/27/25 20:41 Anti-Inflamma take due to kidney disease sertraline (From Zoloft) Allergy Unknown Verified 06/27/25 20:41 PFSH ED 2 PFSH: Medical History Anemia Renal transplant failure and rejection Kidney transplant failure Noncompliance with renal dialysis Adrenal insufficiency Hypoglycemia CKD (chronic kidney disease) stage V requiring chronic dialysis Generalized anxiety disorder Other stimulant dependence, in remission Problems related to lack of adequate sleep Substance abuse Depression Anxiety Surgical History Kidney transplant recipient Social History Smoking and tobacco/nicotine status: tobacco/nicotine user, details unknown e- cigarettes E-Cigarette Details: vaporizer device and with nicotine E-cig/vape details: 6 mg and smokeless tobacco Smokeless tobacco user: chewing tobacco Smokeless tobacco details: 1 can/3 days. Quit status (tobacco/nicotine): has tried quititng Number of times tried to quit tobacco: 4 Second hand smoke exposure: No Alcohol intake: never Substance/Drug Use: current Substance/Drug use frequency: Special occassions/opportunity only Additional social history: Patient uses marijuana 1 g every other day he has remote history of some meth use. He reports chewing tobacco and using nicotine pouches but denies smoking cigarettes. He denies suicidal ideation. Patient is companied by his girlfriend and his CODE STATUS is always been full code confirmed with the patient on 06/05/2025 that he wants full CODE STATUS by Daron Ayala MD Patient admits to THC use Physical Exam 2 Const: GENERAL APPEARANCE: cooperative and anxious; not ill appearing and not frail appearing HENMT: COMMON NORMALS: normocephalic, atraumatic and Normal external nose present HEAD & SCALP: normocephalic and atraumatic FACE & SINUS: normal facial exam and face symmetric NOSE: Normal external nose present Eye: COMMON NORMALS: Equal, round and reactive pupils present and EOMs intact bilaterally PUPIL: Yes Equal, round and reactive pupils present Neck/C-Spine: GENERAL: Yes trachea midline Chest: CHEST: Yes Symmetrical chest wall rise Resp: COMMON NORMALS: normal respiratory effort, No retractions, No use of accessory muscles and clear to auscultation bilaterally AUSCULTATION: clear to auscultation bilaterally Cardio: COMMON NORMALS: regular rate and regular rhythm RATE: regular rate RHYTHM: regular rhythm GI: COMMON NORMALS: Normal to inspection, nondistended, normoactive bowel sounds present Extremity: COMMON NORMALS: no pedal edema Neuro: PHUC COMA SCALE: document GCS findings [place] coma scale eye opening: Spontaneous Phuc coma scale verbal response: Orientated [place] coma scale motor response: Obey commands [place] coma scale total score: 15 S ENSORY EXAM: Yes extremities (intact) Psych: COMMON NORMALS: speech normal SPEECH: Yes normal speech Skin: COMMON NORMALS: no rashes or lesions noted GENERAL SKIN EXAM: no rashes or lesions noted Course 2 Vital Signs: Vital signs: Vital Signs Temperature 97.6 F 07/31/25 02:56 Pulse Rate 69 07/31/25 03:59 Respiratory Rate 16 07/31/25 02:56 Blood Pressure 157/106 07/31/25 03:59 Pulse Oximetry 98 07/31/25 03:59 Oxygen Delivery Me thod Room Air 07/31/25 02:56 MDM - Back Pain/Injury Medical Decision Making At first, the patient complained that he wanted to just go home . He then allowed us to draw blood to check potassium and sugar levels. He is given an injection of hydromorphone here intramuscularly for pain. He was told that while I can treat his pain here, I cannot prescribe him pain medication for home. He can call his doctor later today to follow-up regarding that. Hemoglobin 8.3 which is improved. Potassium is 5.8. Magnesium is 2.8. These are essentially this patient's baseline. He will be discharged. As above. Labs 07/31/25 04:00 07/31/25 04:00 Laboratory Results WBC 6.09 10^3/uL (3.29-11.43) 07/31/25 04:00 RBC 2.63 10^6/uL (3.85-5.65) L 07/31/25 04:00 Hgb 8.30 g/dL (11.27-16.99) L 07/31/25 04:00 Hct 26.4 % (37-53) L 07/31/25 04:00 MCV 100.4 fl (82-101) 07/31/25 04:00 MCH 31.6 pg (27-33) 07/31/25 04:00 MCHC 31.4 g/dL (30-55) 07/31/25 04:00 RDW 17.2 % (12.1-15.1) H 07/31/25 04:00 Plt Count 181 10^3/cmm (157-399) 07/31/25 04:00 MPV 10.2 fL (7.4-10.4) 07/31/25 04:00 Neut % (Auto) 59.8 % 07/31/25 04:00 Lymph % (Auto) 14.1 % 07/31/25 04:00 [place] % (Auto) 16.7 % 07/31/25 04:00 Eos % (Auto) 8.0 % 07/31/25 04:00 Baso % (Auto) 0.7 % 07/31/25 04:00 Neut # (Auto) 3.64 10^3/uL (1.8-7.7) 07/31/25 04:00 Lymph # (Auto) 0.9 10^3/uL (0.8-4.8) 07/31/25 04:00 [place] # (Auto) 1.0 10^3/uL (0.2-0.9) H 07/31/25 04:00 Eos # (Auto) 0.5 10^3/uL (0.0-0.8) 07/31/25 04:00 Baso # (Auto) 0.0 10^3/uL (0.0-0.1) 07/31/25 04:00 Nucleated RBC % (auto) 0 % 07/31/25 04:00 Nucleated RBCs # 0.0 /100WBC 07/31/25 04:00 Sodium 139 mmol/L (136-145) 07/31/25 04:00 Potassium 5.8 mmol/L (3.5-5.1) H 07/31/25 04:00 Chloride 96 mmol/L (98-107) L 07/31/25 04:00 Carbon Dioxide 27 mmol/L (22-29) 07/31/25 04:00 Anion Gap 21.8 (5-19) H 07/31/25 04:00 BUN 58 mg/dL (6-20) H 07/31/25 04:00 Creatinine 8.0 mg/dL (0.7-1.2) H* 07/31/25 04:00 GFR Calculation 8.3 mL/min (90-130) L 07/31/25 04:00 Glucose 106 mg/dL (65-115) 07/31/25 04:00 Calculated Osmolality 305 mOsm/kg (285-295) H 07/31/25 04:00 Calcium 9.3 mg/dL (8.5-10.5) 07/31/25 04:00 Phosphorus 6.1 mg/dL (2.5-4.5) H 07/31/25 04:00 Magnesium 2.8 mg/dL (1.7-2.3) H 07/31/25 04:00 No radiology studies performed this visit Discharge Plan Discharge Patient Disposition: Home Clinical Impression: Hypertension, Neck pain, ESRD on hemodialysis Depression Qualifiers: Depression Type: unspecified Qualified Code(s): F32.9 - Major depressive disorder, single episode, unspecified Condition: Stable Prescriptions: No Action sumatriptan 20 mg/actuation spray,non-aerosol 20 mg INTRANASAL Q12H PRN (Reason: Migraine Headache) hydralazine 100 mg tablet 100 mg PO TID nifedipine 30 mg tablet extended release 24hr 90 mg PO DAILY Lokelma 5 gram powder in packet 5 g PO DAILY Qty: 11 2RF prednisone 5 mg tablet See Rx Instructions .ROUTE .COMPLEX Rx Instructions: TAKE 2 TABLETS BY MOUTH DAILY FOR 4 WEEKS, THEN 1 DAILY THEREAFTER. sevelamer carbonate 800 mg tablet See Rx Instructions .ROUTE .COMPLEX Rx Instructions: TAKE 2 TABLETS BY MOUTH DAILY FOR 4 WEEKS, THEN 1 TABLET DAILY THEREAFTER. labetalol 100 mg tablet 200 mg PO BID clonazepam [Klonopin] 1 mg tablet 1 mg PO BID PRN (Reason: anxiety) Qty: 10 0RF fluoxetine 10 mg capsule 10 mg PO DAILY acetaminophen 325 mg Tablet 650 mg PO Q6H PRN (Reason: Mild/Mod Pain Or Temp >/= 101) Qty: 30 0RF losartan 50 mg Tablet 50 mg PO DAILY Qty: 30 0RF clonidine HCl 0.1 mg Tablet 0.2 mg PO TID Qty: 90 0RF divalproex 500 mg Tablet,Delayed Release (Dr/Ec) 500 mg PO BID Qty: 60 0RF methocarbamol 750 mg tablet 750 mg PO Q8H PRN (Reason: muscle spasm) Qty: 30 0RF Discharge Orders: Discharge ED (Routine); Ordered 07/31/25 Ordered By: Barak Roberts Referrals: Beverly Veronica MD [Primary Care Provider, Family Practice] Patient Instructions: Neck Pain (ED), Opioid Safety, Pain Management, Patient Portal & [facility]ria Instructions Activity Restrictions/Additional Instructions: Call your doctor later this morning to see if anything can be done about your pain medication regimen. Attend dialysis tomorrow as scheduled. Return for problems. Print Language: [place] Coding Level of Care Code ED Retail Sales Vitamin Consultant for Loida Menon
[2025-07-31 04:05] LABS: Hematocrit 26.4 % (37-53); Hemoglobin 8.30 g/dL (11.27-16.99); Mean Corpuscular HGB Conc 31.4 g/dL (30-55); Mean Corpuscular Hemoglobin 31.6 pg (27-33); Mean Corpuscular Volume 100.4 fl (82-101); Nucleated Red Blood Cells % 0 %; Platelet Count 181 10^3/cmm (157-399); Red Blood Count 2.63 10^6/uL (3.85-5.65); White Blood Count 6.09 10^3/uL (3.29-11.43)
[2025-07-31 04:33] LABS: Anion Gap 21.8 (5-19); Blood Urea Nitrogen 58 mg/dL (6-20); Calcium 9.3 mg/dL (8.5-10.5); Carbon Dioxide 27 mmol/L (22-29); Chloride 96 mmol/L (98-107); Glucose 106 mg/dL (65-115); Magnesium 2.8 mg/dL (1.7-2.3); Osmolality Calculated 305 mOsm/kg (285-295); Potassium 5.8 mmol/L (3.5-5.1); Sodium 139 mmol/L (136-145)
[2025-07-31 04:53] LABS: Creatinine Clr Calc Pharmacy 10.2498
[2025-07-31] MEDS: oxyCODONE-APAP 5-325 mg Tablet 2 TAB PO (05:17)
[2025-07-31 05:23] VITALS: BP 155/119; PULSE 72; O2SAT 100
== END 2025-07-31 05:24 | disposition home or self-care (01) ==
PROVIDERS: Emergency Provider Emergency Medicine; PCP Family Medicine
DX: M54.2 Cervicalgia (principal); F32.9 Major depressive disorder, single episode, unspecified; I12.0 Hypertensive chronic kidney disease with stage 5 chronic kidney disease or end stage renal disease; N18.6 End stage renal disease; Z99.2 Dependence on renal dialysis; F17.290 Nicotine dependence, other tobacco product, uncomplicated; F17.220 Nicotine dependence, chewing tobacco, uncomplicated
CPT/HCPCS: 36415; 80048; 83735; 84100; 85025; 96372; 99284; J1171; J9999

== ENCOUNTER 2025-08-10 04:21 | Inpatient (IN) | payer OTHER, MEDICAID, SELFPAY ==
[2025-08-10] VITALS (51 sets, daily range): BP systolic 125–227; BP diastolic 76–175; PULSE 60–105; RESP 11–27; TEMP 35.6–37.1; O2SAT 95–100; BMI 20.7; BMI 20.8
--- OUTSIDE RECORDS SUMMARY | 2025-08-10 04:31 | XMS_ITS | Clinical Summary ---
Author Organization [facility] Address [address] [place] [address] Phone Care Team Providers Care Food Services Manager Name Role Phone Unavailable Primary [...] patient's age to complete this topic Insurance [employer] UNITED HEALTHCARE MEDICARE
--- OUTSIDE RECORDS SUMMARY | 2025-08-10 04:31 | XMS_ITS | Encounter Summary ---
Author Organization [facility] Address 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 Gender Identity Not on file Sexual Orientation [...] st Contact Info) Description 12/05/2025 2:40 PM SUGARCANE RESEARCH TECHNICIAN Office Visit [facility] [address] [phone] Beverly Veronica MD [address] [phone] documented as of this encounter Visit Diagnoses Not on filedocumented in this encounter Additional Health Concerns Assessment Noted Time PHQ-9 Depression Total Score: 3 05/29/20 25 3:06 PM CDT documented as of this encounter Care Teams Radio Interference Investigator Relationship Specialty Start Date End Date Beverly Veronica MD [address] [phone] PCP - General Family Practice 05/29/25 documented as of this encounter
--- OUTSIDE RECORDS SUMMARY | 2025-08-10 04:31 | XMS_ITS | Clinical Summary ---
Author Organization [facility] Address [address] [place] [address] Phone Care Team Providers Care Multiple Coil Winder Name Role Phone Beverly Veronica MD Primary Care Provider +1- [phone] Allergies Active Allergy Reactions Criticality Noted Date [...] 30 Tablet 2 02/04/20 25 Active vit B,G-KG-pwij-se mishel-vit D3-E (RenaPlex-D) 800 mcg-12.5 mg -2,000 [...] mouth 2 times daily. 06/30/20 25 Active naloxone (NARCAN) 4 mg/spray [place], Non-Aerosol EMERGENCY USE ONLY: Administer 1 spray (4 mg) in one nostril one time. May repeat in alternating nostrils every 2-3 min until responsive or EMS arrives. 2 Each 3 07/21/20 25 Active oxyCODONE (ROXICODONE) 5 mg tabletIndicati ons:Chronic neck pain Take 1 Tablet (5 mg) by mouth every 8 hours as needed for Pain. Max Daily Amount: 15 mg 21 Tablet 08/03/20 25 Active HYDROcodone-ac etaminophen (NORCO) 5-325 mg tablet TAKE 1 TO 2 TABLETS ORALLY EVERY 6 HOURS 03/28/20 25 025 Discontinu ed(Alterna te therapy prescribed ) oxyCODONE (ROXICODONE) 5 mg tabletIndicati ons:Chronic neck pain Take 1 Tablet (5 mg) by mouth every 8 hours as needed for Pain. Max Daily Amount: 15 mg 21 Tablet 07/21/20 25 025 Discontinu ed(Reorder ) Active Problems Problem Noted Date Diagnosed [...] Encounters Date Type Department Care Team Description 08/02/[address] [phone] Beverly Veronica MD Chronic neck pain 08/01/2025 External Device Data [facility] ABSTRACTION Provider, Abstract 07/25/2025 External Device Data [facility] Provider, Abstract 07/25/2025 External Device Data [facility] Provider, Abstract 07/21/2025 11:40 AM CDT Office Visit [address] [phone] Beverly Veronica MD Chronic neck pain (Primary Dx); Dependence on renal dialysis; Anemia in chronic kidney disease, on chronic dialysis ([facility]) 07/20/2025 12:20 AM CDT - 07/20/2025 11:59 PM CDT Hospital Encounter [facility] Emergency Medical Services [facility] [address] [place] [phone] [facility] Disposition: Home or Self Care 07/19/2025 Orders Only [facility] Information [facility] [address] [place] [address] Provider, Abstract 07/14/2025 11:20 AM CDT Office Visit [address] [phone] Beverly Veronica MD Acute pulmonary edema (CMS/HCC) (Primary Dx); Abscess; ESRD (end stage renal disease) (CMS/HCC); Chronic neck pain; Refused influenza vaccine 07/10/2025 - 07/10/2025 11:59 PM CDT Hospital Encounter [facility] Emergency Medical Services [address] [phone] [facility]: [facility] 07/08/2025 6:50 AM CDT - 07/08/2025 11:59 PM CDT Hospital Encounter [facility] Emergency Medical Services [address] [phone] [facility] Disposition: [facility] 07/06/2025 1:50 PM CDT - 07/06/2025 11:59 PM CDT Hospital Encounter [facility] Emergency Medical Services [address] [phone] [facility] Disposition: [facility] 07/04/2025 Orders Only [facility] Information [facility] [address] [place] [address] Provider, Abstract 07/03/2025 6:45 AM CDT - 07/03/2025 11:59 PM CDT Hospital Encounter [facility] Emergency Medical Services [address] [phone] [facility] Disposition: [facility] 06/29/[address] [phone] Beverly Veronica MD Information 06/27/2025 External Device Data [facility] Provider, Abstract 06/20/2025 External Device Data [facility] Provider, Abstract 06/20/2025 Results Follow-Up [facility] [address] [place] [address] Garry Randolph MD MRI CERVICAL WO CONTRAST 06/15/2025 11:29 AM CDT - 06/15/2025 11:59 PM CDT Hospital Encounter [facility] MRI [place] [address] [place] [phone] Garry Randolph MD Discharge Disposition: Home or Self Care 05/30/2025 External Device Data [facility] ABSTRACTION Provider, Abstract 05/29/2025 2:40 PM CDT Office Visit [address] [phone] Beverly Veronica MD Abrasion, foot without infection (Primary Dx); Seizure disorder ([facility]); Severe major depressive disorder ([facility]); ESRD (end stage renal disease) ([facility]) 05/24/2025 External Device Data [facility] ABSTRACTION Provider, Abstract 05/16/2025 3:00 PM CDT Office Visit [facility] [address] [place] [address] Garry Randolph MD Chronic neck pain (Primary [...] PNEUM OCOCCAL CONJUGATE VACCINE 20-VALENT (PCV20), POLYSACCHARIDE [id number] CONJUGATE, ADJUVANT 0.5 ML (PF) IM 12/14/2024 [...] on file 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 [address] [phone] Beverly Veronica MD [address] [phone] Health Maintenance Due Date Last [...] lt from Last 3 Months Insurance MEDICAID [place] DUAL COMPLETE O [facility] [id number] RX [employer] RX Member Subscriber Plan / Payer (Ef fective 2025-Present) Name:Vance Sainz Bruce Relation to Subscriber:Self Name:Vance Sainz Subscriber ID:Not on file Payer ID:Not on file Group ID:[id number] Type:RX Medicare Part D Address: [address] Advance Directives For more information, please contact: [phone] * Full Code (Latest Code Status on File) Date Activated Date Inactivated Comments 01/31/2025 2:27 PM 02/03/2025 8:44 PM Care Teams Multiple Coil Winder Relationship Specialty Start Date End Date Beverly Veronica MD [address] [place] [phone] PCP - General Family Practice 05/29/25
--- OUTSIDE RECORDS SUMMARY | 2025-08-10 04:31 | XMS_ITS | Encounter Summary ---
Author Organization [facility] Address [address] [place] [address] Care Team Providers Care Showplace Manager Name Role Phone Beverly Veronica MD Primary Care Provider [phone]- [phone] Reason for Visit * Reason Comments Medication Refill Encounter Details Date Type Department Care Team ([facility] st Contact Info) Description 08/02/[address] 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 Also reminded patient about giving the provider 48 hours to refill his medication and to call sooner when needing a refill. * Telephone Encounter - Amy Grullon LPN - 08/02/2025 9:12 AM CDT Called [facility] in [place] and they will be calling the patient sometime today to schedule. Medication Refill Request Last Fill Date:07/21/25 Recent and Future Visits: Recent Visits Date Type Provider Dept 07/21/25 Office Visit Beverly Veronica MD [facility] 07/14/25 Office Visit Beverly Veronica MD [facility] 05/29/25 Office Visit Beverly Veronica MD [facility] Showing recent visits within past 540 days with a meds authorizing provider and meeting all other requirements Future Appointments Date Type Provider Dept 12/05/25 Appointment Beverly Veronica MD [facility] Showing future appointments within next 365 days with a meds authorizing provider and meeting all other requirements * Telephone Encounter - Amanda Galvez - 08/02/2025 8:56 AM CDT Copied from [facility] #[id number]. Topic: Medication Request >> Aug 02, 2025 8:50 AM Amanda Valenzuela wrote: Caller Name: Vance Callback Number: [phone] Medication (Ask patient/caregiver to spell if possible): oxyCODONE (ROXICODONE) 5 mg tablet Note: All medication prescriptions can be requested using one CRM Preferred Pharmacy: [facility] - [place], [place] - [address] Call Notes: Patient said he has been sick. He has been in the hospital and he has about 15 pounds of fluid on him. Patient said he has dialysis today at 12:45 and it requesting to get a refill on this for his neck pain before he goes to his appointment. Patient said he has not received a call from the referral for pain management. Please call patient to discuss. Did caller contact the correct clinic for prescribing provider? Yes Ask caller if the refill is for a controlled medication. Is this for a controlled Medication? Yes Is there an encounter open? No documented in this encounter Plan of Treatment Upcoming Encounters Date Type Department Care Team (Late st Contact Info) Description 12/05/2025 2:40 PM IMPORT CUSTOMER SERVICE MANAGER Office Visit [facility] [address] [phone] Beverly Veronica MD [address] [place] [phone] documented as of this encounter Visit Diagnoses Diagnosis Chronic neck pain Cervicalgia documented in this encounter Additional Health Concerns Assessment Noted Time PHQ-9 Depression Total Score: 3 05/29/20 25 3:06 PM CDT documented as of this encounter Care Teams Showplace Manager Relationship Specialty Start Date End Date Beverly Veronica MD [address] [place] [phone] PCP - General Family Practice 05/29/25 documented as of this encounter
--- OUTSIDE RECORDS SUMMARY | 2025-08-10 04:31 | XMS_ITS | Encounter Summary ---
Author Organization [facility] Address 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 Topic: Established Patient Care >> Jun 29, 2025 11:42 AM Asya Mckeon wrote: Is the patient established with a [facility] provider? Yes, select appropriate option in Discharge Facility SmartList Caller Name: Harjinder with [facility] Callback Number: [phone] Call Notes: Calling reporting pt will be [...] st Contact Info) Description 12/05/2025 2:40 PM DIRECTOR CORRECTIONAL AGENCY Office Visit [facility] [address] [phone] Beverly Veronica MD [address] [phone] documented as of this encounter Visit Diagnoses Not on filedocumented in this encounter Additional Health Concerns Assessment Noted Time PHQ-9 Depression Total Score: 3 05/29/20 25 3:06 PM CDT documented as of this encounter Care Teams Heel Emery Buffer Relationship Specialty Start Date End Date Beverly Veronica MD [address] [place] [phone] PCP - General Family Practice 05/29/25 documented as of this encounter
--- OUTSIDE RECORDS SUMMARY | 2025-08-10 04:31 | XMS_ITS | Encounter Summary ---
Author Organization [facility] Address [address] [address] Phone Care Team Providers Care Emissions Testing And Repair Technician Name Role Phone Unavailable Primary Care Provider Unavailabl e Encounter Details Date Type Department Care Team (Late st Contact Info) Description 04/01/2023 Telephone [facility] [address] [address] Shawn Betancourt MD [address] [place] [address] Social History Tobacco Use Types Packs/Day Years [...]
[2025-08-10 04:59] LABS: Hematocrit 31.0 % (37-53); Hemoglobin 10.00 g/dL (11.27-16.99); Mean Corpuscular HGB Conc 32.3 g/dL (30-55); Mean Corpuscular Hemoglobin 31.0 pg (27-33); Mean Corpuscular Volume 96.0 fl (82-101); Nucleated Red Blood Cells % 0 %; Platelet Count 138 10^3/cmm (157-399); Red Blood Count 3.23 10^6/uL (3.85-5.65); White Blood Count 4.81 10^3/uL (3.29-11.43)
--- NOTE | 2025-08-10 05:16 | W.ED.ANXIETY ---
HPI - Anxiety General: Chief Complaint: Anxiety Stated Complaint: anxiety Time Seen by Provider: 08/10/25 04:26 History of Present Illness: 25yo M w/pmhx of ESRD on HD T, Th, S w/cc of anxiety and missing dialysis for the last week due to anxiety. He states that he's unable to go until his anxiety is addressed and fixed. He has not had a fever, denies shortness of breath/orthopnea, leg swelling, chest pain (though he reports his chest is tight due to anxiety), abdominal pain/cramping, n/v. He states he makes very little urine. He is quite hypertensive and states I might have missed a couple of doses, I don't always take my medication but took it yesterday. Patient is verbally hostile and is demanding medication for anxiety otherwise I won't go to dialysis, will go on hospice and at the age of 25. My creatitine is probably like 20. 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 You should know what that does to your brain and does not let you make good decisions. I asked susan if he is feeling suicidal, he stated he is not suicidal and does not have a plan to kill himself. Related Data Home Medications ?Medication ?Instructions ?Recorded ?Confirmed labetalol 100 mg tablet 200 mg PO BID 09/11/24 07/17/25 hydralazine 100 mg tablet 100 mg PO TID 04/05/25 07/17/25 sumatriptan 20 mg/actuation nasal 20 mg intranasal Q12H PRN Migraine 04/05/25 07/17/25 spray Headache fluoxetine 10 mg capsule 10 mg PO DAILY 06/28/25 07/17/25 nifedipine 30 mg tablet,extended 90 mg PO DAILY 07/10/25 07/17/25 release 24 hr prednisone 5 mg tablet See Rx Instructions .Route .COMPLEX 07/17/25 07/17/25 sevelamer carbonate 800 mg tablet See Rx Instructions .Route .COMPLEX 07/17/25 07/17/25 Previous Rx's ?Medication ?Instructions ?Recorded clonazepam 1 mg tablet (Klonopin) 1 mg PO BID PRN anxiety #10 tabs 01/09/25 acetaminophen 325 mg tablet 650 mg (2 x 325 mg) PO Q6H PRN 06/29/25 Mild/Mod Pain Or Temp >/= 101 #30 tabs clonidine HCl 0.1 mg tablet 0.2 mg (2 x 0.1 mg) PO TID #90 tabs 06/29/25 divalproex 500 mg tablet,delayed 500 mg PO BID #60 tabs 06/29/25 release losartan 50 mg tablet 50 mg PO DAILY #30 tabs 06/29/25 methocarbamol 750 mg tablet 750 mg PO Q8H PRN muscle spasm #30 07/08/25 tabs sodium zirconium cyclosilicate 5 5 g PO DAILY #11 ea 07/12/25 gram oral powder packet (Lokelma) Allergies Allergy/AdvReac Type Severity Reaction Status Date / Time NSAIDS (Non-Steroidal Allergy Severe unable to Verified 06/27/25 20:41 Anti-Inflamma take due to kidney disease sertraline (From Zoloft) Allergy Unknown Verified 06/27/25 20:41 [facility] ED PFSH: Medical History (Updated 08/10/25 @ 06:17 by Lizz Boles MD) Anemia Renal transplant failure and rejection Kidney transplant failure Noncompliance with renal dialysis Adrenal insufficiency Hypoglycemia CKD (chronic kidney disease) stage V requiring chronic dialysis Generalized anxiety disorder Other stimulant dependence, in remission Problems related to lack of adequate sleep Substance abuse Depression Anxiety Surgical History Kidney transplant recipient Social History Smoking and tobacco/nicotine status: tobacco/nicotine user, details unknown e-cigarettes E-Cigarette Details: vaporizer device and with nicotine E-cig/vape details: 6 mg and smokeless tobacco Smokeless tobacco user: chewing tobacco Smokeless tobacco details: 1 can/3 days. Quit status (tobacco/nicotine): has tried quititng Number of times tried to quit tobacco: 4 Second hand smoke exposure: No Alcohol intake: never Substance/Drug Use: current Substance/Drug use frequency: Special occassions/opportunity only Additional social history: Patient uses marijuana 1 g every other day he has remote history of some meth use. He reports chewing tobacco and using nicotine pouches but denies smoking cigarettes. He denies suicidal ideation. Patient is companied by his girlfriend and his CODE STATUS is always been full code confirmed with the patient on 06/05/2025 that he wants full CODE STATUS by Daron Ayala MD Patient admits to [facility] use Physical Exam Narrative: EXAM NARRATIVE: Vital signs were reviewed. Patient is alert and oriented. Patient is breathing comfortably, no increased WOB or accessory muscle use. SpO2 is above 95% on RA. Patient has clear lungs b/l, no rhonchi, wheezing or crackles. +Hypertension. No tachycardia. Abdomen is soft, nondistended and nontender. Patient is moving all extremities, no deformity or gross injury. No lower extremity edema or asymmetry. No clinical signs of volume overload. Course Vital Signs: Vital signs: Vital Signs Temperature 97.6 F 08/10/25 04:26 Pulse Rate 60 08/10/25 04:26 Respiratory Rate 16 08/10/25 04:26 Blood Pressure 197/136 08/10/25 04:38 Pulse Oximetry 100 08/10/25 04:26 Oxygen Delivery Me thod Room Air 08/10/25 04:26 MDM - Anxiety Medical Decision Making 25yo M w/cc of axiety and missing dialysis for one week. He's also hypertensive and has not been compliant w/medications. Differential diagnosis includes compress limited to, life-threatening electrolyte abnormality such as hyperkalemia, anemia, volume overload, asymptomatic hypertension versus hypertensive emergency, anxiety, seeking secondary gain, manipulative behavior, other. On exam, he's quite hypertensive. He was treated w/IV labetalol, hydroxyzine for anxiety, tylenol for pain. He was evaluated w/CBC, CMP. EKG. patient has a normal white blood cell count and is not anemic. Patient's creatinine is 17, potassium is 7.7. Treatment was initiated with IV calcium, dextrose, insulin and bicarb. BP treated w/IV labetalol and hydralazine. Admitted for emergent dialysis. Lab Data 08/10/25 04:54 08/10/25 04:54 Laboratory Results WBC 4.81 10^3/uL (3.29-11.43) 08/10/25 04:54 RBC 3.23 10^6/uL (3.85-5.65) L 08/10/25 04:54 Hgb 10.00 g/dL (11.27-16.99) L 08/10/25 04:54 Hct 31.0 % (37-53) L 08/10/25 04:54 MCV 96.0 fl (82-101) 08/10/25 04:54 MCH 31.0 pg (27-33) 08/10/25 04:54 MCHC 32.3 g/dL (30-55) 08/10/25 04:54 RDW 17.1 % (12.1-15.1) H 08/10/25 04:54 Plt Count 138 10^3/cmm (157-399) L 08/10/25 04:54 MPV 10.2 fL (7.4-10.4) 08/10/25 04:54 Neut % (Auto) 52.2 % 08/10/25 04:54 Lymph % (Auto) 19.1 % 08/10/25 04:54 Rankin % (Auto) 21.0 % 08/10/25 04:54 Eos % (Auto) 5.8 % 08/10/25 04:54 Baso % (Auto) 1.5 % 08/10/25 04:54 Neut # (Auto) 2.51 10^3/uL (1.8-7.7) 08/10/25 04:54 Lymph # (Auto) 0.9 10^3/uL (0.8-4.8) 08/10/25 04:54 Rankin # (Auto) 1.0 10^3/uL (0.2-0.9) H 08/10/25 04:54 Eos # (Auto) 0.3 10^3/uL (0.0-0.8) 08/10/25 04:54 Baso # (Auto) 0.1 10^3/uL (0.0-0.1) 08/10/25 04:54 Nucleated RBC % (auto) 0 % 08/10/25 04:54 Nucleated RBCs # 0.0 /100WBC 08/10/25 04:54 Sodium 138 mmol/L (136-145) 08/10/25 04:54 Potassium 7.7 mmol/L (3.5-5.1) H* 08/10/25 04:54 Chloride 85 mmol/L (98-107) L 08/10/25 04:54 Carbon Dioxide 20 mmol/L (22-29) L 08/10/25 04:54 Anion Gap 40.7 (5-19) H 08/10/25 04:54 BUN 138 mg/dL (6-20) H* D 08/10/25 04:54 Creatinine 17.1 mg/dL (0.7-1.2) H* 08/10/25 04:54 GFR Calculation 3.4 mL/min (90-130) L 08/10/25 04:54 Glucose 81 mg/dL (65-115) 08/10/25 04:54 Calculated Osmolality 330 mOsm/kg (285-295) H 08/10/25 04:54 Calcium 8.9 mg/dL (8.5-10.5) 08/10/25 04:54 Total Bilirubin 0.3 mg/dL (0.15-1.2) 08/10/25 04:54 AST 11 U/L (0-40) 08/10/25 04:54 ALT 9 U/L (0-41) 08/10/25 04:54 Alkaline Phosphatase 102 U/L (40-130) 08/10/25 04:54 Total Protein 7.2 g/dL (6.6-8.7) 08/10/25 04:54 Albumin 4.9 g/dL (3.5-5.2) 08/10/25 04:54 Globulin 2.3 g/dL (1.3-4.6) 08/10/25 04:54 No radiology studies performed this visit EKG Data EKG 1: Interpretation: Sinus bradycardia with a heart rate of 55, normal axis, mildly prolonged QT, narrow complex, no ST segment elevation. Patient may be developing some peaking of the T waves in the precordial leads. Discharge Plan Discharge Patient Disposition: Admitted As Inpatient Clinical Impression: Missed dialysis, Acute hyperkalemia Condition: Stable Coding Level of Care Code ED Service Officer for Loida Menon
[2025-08-10 05:19] LABS: Alanine Aminotransferase 9 U/L (0-41); Albumin Level 4.9 g/dL (3.5-5.2); Alkaline Phosphatase 102 U/L (40-130); Anion Gap 40.7 (5-19); Aspartate Amino Transferase 11 U/L (0-40); Calcium 8.9 mg/dL (8.5-10.5); Carbon Dioxide 20 mmol/L (22-29); Chloride 85 mmol/L (98-107); Creatinine Clr Calc Pharmacy 4.7952; Globulin 2.3 g/dL (1.3-4.6); Glucose 81 mg/dL (65-115); Sodium 138 mmol/L (136-145); Total Protein 7.2 g/dL (6.6-8.7)
--- NOTE | 2025-08-10 05:20 | ECG_ITS ---
[facility] 2025[facility]08[facility]10 Pat Name: Vance Sainz Department: Room: Gender: Male Hand Turner: : 2000 Requested By: Lizz Boles Order Number: [id number] Danisha MD: Nuha Garcia M.D. Measurements Intervals [place] Rate: 55 P: 70 CO: 159 QRS: 28 QRSD: 101 T: 72 QT: 480 QTc: 463 Interpretive Statements SINUS BRADYCARDIA PROLONGED QT INTERVAL Compared to ECG 07/17/2025 14:34:53 Prolonged QT interval now present Sinus tachycardia no longer present Ventricular premature complex(es) no longer present T-wave abnormality no longer present Electronically Signed On 08-11-2025 15:26:05 CDT by Nuha Garcia M.D. [email or web address]
[2025-08-10 05:30] LABS: Blood Urea Nitrogen 138 mg/dL (6-20); Osmolality Calculated 330 mOsm/kg (285-295); Potassium 7.7 mmol/L (3.5-5.1)
[2025-08-10] MEDS: labetalol 5 mg/mL SDV 20mL 20 MG IVP (05:47)
[2025-08-10] MEDS: calcium gluconate 0.1 gm/mL 10% SDV 10mL 1 GM IVP (05:47)
--- NOTE | 2025-08-10 06:25 | PM.HP ---
Providers/Chief Complaint Admitting Physician: MERCEDEZ CORDERO--DO Primary Care Provider: Beverly Veronica MD Chief Complaint: anxiety History of Present Illness Vance Sainz is a 25 year old male with history of mental problem, chronic renal failure on chronic renal hemodialysis who had missed dialysis for 1 week coming into the emergency room with complaints of agitation with hypertensive emergency. Initial blood pressure was 197/37 and at the time the ED call regarding this patient for evaluation for admission blood pressure was 227/154. Potassium 7.7 creatinine at 17. EKG with changes of peaked P wave. Patient had been given 20 mg of IV labetalol and a 20 mg of IV hydralazine for blood pressure. Patient had also been given 1 amp of bicarb, 1 amp of calcium gluconate, insulin in the emergency room. Nephrology has been consulted with Dr. frost for an emergent hemodialysis. This admission called a little after 6 AM today. Patient will be going to ICU. I have given 2 A of calcium gluconate. Patient outside for hypertensive urgency does not have any chest pains. Patient debated whether to stay on not and finally I had gone in to talk to him and he calmed down and he is staying and will be going to ICU. Hopefully with dialysis the blood pressure will be controlled somewhat and all electrolytes imbalances will be optimized. Patient had gotten a lot of combos about the things that he need to have. He does have very bad anxiety disorder and the ED attending had given 2 mg of IV Ativan to calm him down. I will get psych on board patient is familiar with Dr. Tracy Review of Systems Narrative: System review upon ten ogram review where significant for cardiovascular events with uncontrolled blood pressure and mental regarding anxiety and depression and renal failure. Medications/Allergies Home Medications ?Medication ?Instructions ?Recorded ?Confirmed ?Last Taken ?Type labetalol 100 mg tablet 200 mg PO BID 09/11/24 07/17/25 02/12/25 09:00 History clonazepam 1 mg tablet (Klonopin) 1 mg PO BID PRN anxiety #10 tabs 01/09/25 07/17/25 02/12/25 09:00 Rx hydralazine 100 mg tablet 100 mg PO TID 04/05/25 07/17/25 Unknown History sumatriptan 20 mg/actuation nasal 20 mg intranasal Q12H PRN Migraine 04/05/25 07/17/25 Unknown History spray Headache fluoxetine 10 mg capsule 10 mg PO DAILY 06/28/25 07/17/25 07/09/25 History acetaminophen 325 mg tablet 650 mg (2 x 325 mg) PO Q6H PRN 06/29/25 07/17/25 07/09/25 Rx Mild/Mod Pain Or Temp >/= 101 #30 tabs clonidine HCl 0.1 mg tablet 0.2 mg (2 x 0.1 mg) PO TID #90 tabs 06/29/25 07/17/25 07/09/25 Rx divalproex 500 mg tablet,delayed 500 mg PO BID #60 tabs 06/29/25 07/17/25 07/09/25 Rx release losartan 50 mg tablet 50 mg PO DAILY #30 tabs 06/29/25 07/17/25 07/09/25 Rx methocarbamol 750 mg tablet 750 mg PO Q8H PRN muscle spasm #30 07/08/25 07/17/25 07/09/25 Rx tabs nifedipine 30 mg tablet,extended 90 mg PO DAILY 07/10/25 07/17/25 Unknown History release 24 hr sodium zirconium cyclosilicate 5 5 g PO DAILY #11 ea 07/12/25 07/17/25 Unknown Rx gram oral powder packet (Lokelma) prednisone 5 mg tablet See Rx Instructions .Route .COMPLEX 07/17/25 07/17/25 Unknown History sevelamer carbonate 800 mg tablet See Rx Instructions .Route .COMPLEX 07/17/25 07/17/25 Unknown History Allergies Allergy/AdvReac Type Severity Reaction Status Date / Time NSAIDS (Non-Steroidal Allergy Severe unable to Verified 06/27/25 20:41 Anti-Inflamma take due to kidney disease sertraline (From Zoloft) Allergy Unknown Verified 06/27/25 20:41 PFSH Acute PFSH: Medical History Anemia Renal transplant failure and rejection Kidney transplant failure Noncompliance with renal dialysis Adrenal insufficiency Hypoglycemia CKD (chronic kidney disease) stage V requiring chronic dialysis Generalized anxiety disorder Other stimulant dependence, in remission Problems related to lack of adequate sleep Substance abuse Depression Anxiety Surgical History Kidney transplant recipient Social History Smoking and tobacco/nicotine status: tobacco/nicotine user, details unknown e-cigarettes E-Cigarette Details: vaporizer device and with nicotine E-cig/vape details: 6 mg and smokeless tobacco Smokeless tobacco user: chewing tobacco Smokeless tobacco details: 1 can/3 days. Quit status (tobacco/nicotine): has tried quititng Number of times tried to quit tobacco: 4 Second hand smoke exposure: No Alcohol intake: never Substance/Drug Use: current Substance/Drug use frequency: Special occassions/opportunity only Additional social history: Patient uses marijuana 1 g every other day he has remote history of some meth use. He reports chewing tobacco and using nicotine pouches but denies smoking cigarettes. He denies suicidal ideation. Patient is companied by his girlfriend and his CODE STATUS is always been full code confirmed with the patient on 06/05/2025 that he wants full CODE STATUS by Daron Ayala MD Patient admits to THC use Vitals/I&O/Wt Last Vital Signs Temp 97.6 F 08/10/25 04:26 Pulse 64 08/10/25 05:50 Resp 16 08/10/25 04:26 BP 227/154 08/10/25 05:50 Pulse Ox 99 08/10/25 05:50 O2 Del Method Room Air 08/10/25 05:50 Weight last 48 hrs Weight 49.895 kg Physical Exam Narrative: Generally patient is awake and alert but constantly talking very anxious. Patient does have anxiety disorder but not on any medication that he is taking now HEENT normocephalic atraumatic neck neck is supple cardiovascular heart is regular lungs are pretty much clear abdomen soft nontender nondistended unremarkable extremities are intact no edema has good pulses neurology has no focality lab studies lab studies reviewed and noted. Chemistry be repeated at this time and pending Data 08/10/25 04:54 08/10/25 04:54 A&P Assessment and plan 1. Acute hyperkalemia: 2. Missed dialysis: 3. Missed dialysis: 4. Congestive heart failure: 5. Hyperkalemia: 6. Neck pain: 7. Acute hyperkalemia: 8. Medical non-compliance: 9. Malignant hypertension: 10. Pulmonary edema: 11. Hypertensive urgency: Plan: Chronic renal failure on chronic hemodialysis - Worsening condition because of patient noncompliance have been of dialysis for a week according to him. - Renal has been consulted for emergent hemodialysis in ICU. - Patient going to ICU for care at this time. - Patient had received insulin and potassium, calcium gluconate ordered to protect the heart - EKG abnormal with peaked T waves - Patient will be immediately dialyzed with nephrology on case Dr. jay Malignant hypertension with emergency - Patient is noncompliant on multiple blood pressure medication that he does not take - Patient has gotten multiple hydralazine IV along with labetalol - Hemodialysis will definitely help control blood pressure control multiple electrolyte imbalance Anxiety disorder/depression - Patient supposed to be on antianxiety and does not stay on them and now very anxious - Had received 2 mg of IV Ativan - I am at this time getting psychiatric Dr. Tracy on case to manage anxiety disorder and major depression Hypokalemia with EKG changes of peaked T waves - Medication has been given to optimize hyperkalemia along with giving calcium gluconate to protect the heart - Patient for emergent hemodialysis at this time. GI and DVT prophylaxis in place PDMP PDMP Reviewed: Last Reviewed 08/10/25 07:36 by Mercedez Cordero MD Attestations Medical Necessity Statement*: Patient is with multiple electrolyte imbalances and needing emergent hemodialysis regarding hyperkalemia renal failure and volume overload and will need at least 2 midnights for optimization of care Coding Level of Care Code 73874 Diagnoses Acute hyperkalemia E87.5 Missed dialysis Congestive heart failure I50.9 Hyperkalemia E87.5 Neck pain M54.2 Medical non-compliance Z91.199 Malignant hypertension I10 Pulmonary edema J81.1 Hypertensive urgency I16.0 Time Spent (min) 70
--- NOTE | 2025-08-10 06:54 | PC.NURSE ---
Medications delayed from third shift lieutenant D/T PT being uncooperative and deciding if he was going to stay or AMA
[2025-08-10] MEDS: hyDRALAzine 20 mg/mL INJ 1 mL IVP (07:05)
[2025-08-10] MEDS: LORazepam 1 MG/0.5 ML injection 2 MG IVP (07:05)
[2025-08-10] MEDS: sodium bicarbonate 8.4% syr 150 MEQ in dextrose 5% 200 ML 700 MEQ IV (07:10)
--- NOTE | 2025-08-10 07:13 | PC.NURSE ---
POC glucose 106 at time of med administration dextrose infusion given before insulin
[2025-08-10 07:31] LABS: NT Pro B Type Natriuretic Pept > 70000 pg/mL (0-125)
--- NOTE | 2025-08-10 07:38 | PC.NURSE ---
PT refused to dress in hospital gown
--- NOTE | 2025-08-10 08:31 | PC.PHAR ---
Last med rec completed 07/17/25. Current med rec completed with [facility] with last fill dates and day supply added in pharmacy notes. Unable to wake pt after he got settled in ICU, to ask when he last took any medications. Pt has a history of non compliance with medications.
[2025-08-10] MEDS: divalproex DR 500 mg Tablet PO ×2 (08:50→16:56)
[2025-08-10] MEDS: insulin regular-human 100 units/1 mL 10 UNIT IVP (08:53)
[2025-08-10] MEDS: calcium gluconate 0.9% NaCL 1 GM/50 ML PREMIX IV ×2 (09:05→09:08)
[2025-08-10 09:16] LABS: Anion Gap 26.6 (5-19); Calcium 8.7 mg/dL (8.5-10.5); Carbon Dioxide 26 mmol/L (22-29); Chloride 91 mmol/L (98-107); Creatinine Clr Calc Pharmacy 6.7823; Glucose 87 mg/dL (65-115); Osmolality Calculated 315 mOsm/kg (285-295); Potassium 4.6 mmol/L (3.5-5.1); Sodium 139 mmol/L (136-145)
[2025-08-10 09:24] LABS: Alcohol Level < 10 mg/dL (0-10); Blood Urea Nitrogen 89 mg/dL (6-20)
[2025-08-10] MEDS: morphine 4 mg/mL SDV 1 mL 2 MG IVP (10:35)
--- NOTE | 2025-08-10 11:20 | PC.NURSE ---
Pt was resting with eyes closed duering dialysis, he suddenly sat up crying so hard his words were unintelligible. Finally heard cramps, dialysis nurse and I rubbed his legs, hot blankets provided. He became more distraught. Upon exciting room to get his medication this nurse heard him say I am so tired of this I just want to quit and go home, if I I . This nurse said oh-no then Pt replied I mean I am tired of this hurting during dialysis, I want to go home on hospice Dr Hays notified of pt's comment sand discomfort. Moprhine 2mg IVP orderd and admin. His PRn clonzapam admin. Dialysis continued, pt went back to resting with eyes closed. Resp even and unlabored Limbs and facial muscles relaxed. BP elevated , will continue to monitor.
--- NOTE | 2025-08-10 11:22 | PM.CONSULT ---
Providers/Reason For Consult Consulting Physician/Specialty*: kommana/Nephrology Reason for Consult*: ESRD Attending Physician: Eliceo Hays MD Primary Care Provider: Beverly Veronica MD History of Present Illness History of Present Illness Vance Sainz is a 25 year old male h/o ESRD on HD , , Thu, failed renal transplant, depression, substance abuse, seizure history. Patient missed HD and presented w/ weakness and found to have a potasisum of 7.7 and cr of 12.1 . renal was called to [facility] for HD and ESRD care. Review of Systems Narrative: negative Medications/Allergies Home Medications ?Medication ?Instructions ?Recorded ?Confirmed ?Last Taken ?Type labetalol 100 mg tablet 200 mg PO BID 09/11/24 08/10/25 02/12/25 09:00 History clonazepam 1 mg tablet (Klonopin) 1 mg PO BID PRN anxiety #10 tabs 01/09/25 08/10/25 02/12/25 09:00 Rx hydralazine 100 mg tablet 100 mg PO TID 04/05/25 08/10/25 Unknown History sumatriptan 20 mg/actuation nasal 20 mg intranasal Q12H PRN Migraine 04/05/25 08/10/25 Unknown History spray Headache fluoxetine 10 mg capsule 10 mg PO DAILY 06/28/25 08/10/25 07/09/25 History acetaminophen 325 mg tablet 650 mg (2 x 325 mg) PO Q6H PRN 06/29/25 08/10/25 07/09/25 Rx Mild/Mod Pain Or Temp >/= 101 #30 tabs clonidine HCl 0.1 mg tablet 0.2 mg (2 x 0.1 mg) PO TID #90 tabs 06/29/25 08/10/25 07/09/25 Rx divalproex 500 mg tablet,delayed 500 mg PO BID #60 tabs 06/29/25 08/10/25 07/09/25 Rx release losartan 50 mg tablet 50 mg PO DAILY #30 tabs 06/29/25 08/10/25 07/09/25 Rx methocarbamol 750 mg tablet 750 mg PO Q8H PRN muscle spasm #30 07/08/25 08/10/25 07/09/25 Rx tabs sodium zirconium cyclosilicate 5 5 g PO DAILY #11 ea 07/12/25 08/10/25 Unknown Rx gram oral powder packet (kelnh) prednisone 5 mg tablet 5 mg PO DAILY 07/17/25 08/10/25 Unknown History sevelamer carbonate 800 mg tablet See Rx Instructions .Route .COMPLEX 07/17/25 08/10/25 Unknown History nifedipine 90 mg tablet,extended 90 mg PO DAILY 08/10/25 08/10/25 Unknown History release oxycodone 5 mg tablet 5 mg PO Q8H PRN Pain 08/10/25 08/10/25 Unknown History Allergies Allergy/AdvReac Type Severity Reaction Status Date / Time NSAIDS (Non-Steroidal Allergy Severe unable to Verified 06/27/25 20:41 Anti-Inflamma take due to kidney disease sertraline (From Zoloft) Allergy Unknown Verified 06/27/25 20:41 Current Medications Generic Name Dose Route Start Last Admin Trade Name Freq PRN Reason Stop Dose Admin Clonazepam 1 mg 08/10/25 08:18 08/10/25 10:29 Clonazepam 1 Mg Tablet PO 1 mg BID PRN Administration anxiety Divalproex Sodium 500 mg 08/10/25 08:20 08/10/25 08:[address] 500 Mg Tablet PO 500 mg BID OMAR Administration Fluoxetine HCl 10 mg 08/10/25 08:20 08/10/25 08:49 Fluoxetine 10 Mg Capsule PO 10 mg DAILY OMAR Administration Labetalol HCl 300 mg 08/10/25 08:20 08/10/25 08:49 Labetalol 200 Mg Tablet PO 300 mg BID OMAR Administration Losartan Potassium 50 mg 08/10/25 08:20 08/10/25 08:49 Losartan 50 Mg Tablet PO 50 mg DAILY OMAR Administration PFSH Acute PFSH: Medical History Anemia Renal transplant failure and rejection Kidney transplant failure Noncompliance with renal dialysis Adrenal insufficiency Hypoglycemia CKD (chronic kidney disease) stage V requiring chronic dialysis Generalized anxiety disorder Other stimulant dependence, in remission Problems related to lack of adequate sleep Substance abuse Depression Anxiety Surgical History Kidney transplant recipient Social History Smoking and tobacco/nicotine status: tobacco/nicotine user, details unknown e-cigarettes E-Cigarette Details: vaporizer device and with nicotine E-cig/vape details: 6 mg and smokeless tobacco Smokeless tobacco user: chewing tobacco Smokeless tobacco details: 1 can/3 days. Quit status (tobacco/nicotine): has tried quititng Number of times tried to quit tobacco: 4 Second hand smoke exposure: No Alcohol intake: never Substance/Drug Use: current Substance/Drug use frequency: Special occassions/opportunity only Additional social history: Patient uses marijuana 1 g every other day he has remote history of some meth use. He reports chewing tobacco and using nicotine pouches but denies smoking cigarettes. He denies suicidal ideation. Patient is companied by his girlfriend and his CODE STATUS is always been full code confirmed with the patient on 06/05/2025 that he wants full CODE STATUS by Daron Ayala MD Patient admits to THC use Vitals/I&O/Wt Last Vital Signs Temp 98.1 F 08/10/25 08:19 Pulse 77 08/10/25 08:19 Resp 14 08/10/25 10:35 BP 168/109 08/10/25 08:49 Pulse Ox 99 08/10/25 10:35 O2 Del Method Room Air 08/10/25 07:05 08/09/25 08/10/25 08/10/25 22:59 06:59 14:59 Intake Total 355 / 355 Balance 355 / 355 Weight last 48 hrs Weight 50 kg Weight 49.895 kg Physical Exam Narrative: c/o pain , requests pin pain meds S1S2 RRR No jvd Lungs clear erick Abd soft , non tender Ext no edema Skin no rash Data 08/10/25 04:54 08/10/25 08:48 A&P Assessment and plan 1. ESRD on hemodialysis: 1. ESRD:missed HD and presented with volume overload and hyperkalemia. HD today 2. Hypertension : resumed home meds 3. Hyperkalemia ,, low k diet , hd on a low k diet 4. Anemia : , monitor Patient seen and examined with a nurse using audiovisual equipment. Patient consented to telehealth and to dialysis. 2. ESRD on dialysis: Plan: per medicine PDMP PDMP Reviewed: Not Reviewed Coding Level of Care Code Acute Code for g Fwd Diagnoses ESRD on hemodialysis N18.6; Z99.2 ESRD on dialysis N18.6; Z99.2
[2025-08-10 14:40] LABS: Anion Gap 24.2 (5-19); Blood Urea Nitrogen 39 mg/dL (6-20); Calcium 9.5 mg/dL (8.5-10.5); Carbon Dioxide 26 mmol/L (22-29); Chloride 92 mmol/L (98-107); Creatinine Clr Calc Pharmacy 11.0899; Glucose 76 mg/dL (65-115); Osmolality Calculated 292 mOsm/kg (285-295); Potassium 5.2 mmol/L (3.5-5.1); Sodium 137 mmol/L (136-145)
[2025-08-10] MEDS: NIFEdipine ER (24 hr) 30 mg Tablet 90 MG PO (16:08)
[2025-08-10] MEDS: morphine 4 mg/mL SDV 1 mL IVP ×2 (17:05→21:30)
--- NOTE | 2025-08-10 19:14 | P.PN_ITS ---
Subjective 2 Subjective: - Patient was seen this morning - He is alert to person, to place, to ti me follows all commands, resting receiving dialysis, has no complaints - Patient had received dialysis, he is s een in bed, his girlfriend is at bedside - Discussed with Vance in detail the mor bidity and mortality associate with missing dialysis, risk of hyperkalemia - He tells me that he did not have a rid e to go to dialysis over the last week - Discussed options that are available, discussed we could have case workers help him set up rides, and ways to get to dialysis - However he has declined - Vance did voiced to nursing staff that he just wants to go home and , if he wants to be on hospice - Vance denies ever saying this - He denies any suicidal ideation - Denies any homicidal ideation - Denies any plan - Discussed with him that can missing di alysis was this is an attempt to kill himself, he denies this adamantly - Discussed with Vance the importance of compliance with dialysis, morbidity and mortality - I am willing to help him in any way to ensure that he can get the help that he needs, but he is already regular, rides to go to dialysis Vitals/I&O/Wt Last Vital Signs Temp 96.1 F L 08/10/25 15:22 Pulse 66 08/10/25 18:00 Resp 14 08/10/25 18:00 BP 170/117 08/10/25 18:00 Pulse Ox 98 08/10/25 18:00 O2 Del Method Room Air 08/10/25 18:00 08/10/25 08/10/25 08/10/25 06:59 14:59 22:59 Intake Total 705 / 705 500 / 1205 Output Total 3000 / 3000 Balance 705 / 705 -2500 / -1795 Weight last 48 hrs Weight 47.4 kg Weight 50 kg Weight 49.895 kg Physical Exam 2 Const: COMMON NORMALS: no acute distress and patient oriented x3 HENMT: COMMON NORMALS: normocephalic HEAD & SCALP: normocephalic Resp: COMMON NORMALS: normal respiratory effort, No retractions, No use of accessory muscles and clear to auscultation bilaterally AUSCULTATION: clear to auscultation bilaterally Cardio: COMMON NORMALS: regular rate, regular rhythm, S1 normal heart sound present and S2 normal heart sound present RATE: regular rate RHYTHM: r egular rhythm HEART SOUNDS: S1 normal heart sound present and S2 normal heart sound present GI: COMMON NORMALS: Normal to inspection, nondistended, normoactive bowel sounds present and non-tender Extremity: COMMON NORMALS: no pedal edema Neuro: COMMON NORMALS: patient oriented x3 Psych: COMMON NORMALS: mental status grossly normal Data 08/10/25 04:54 08/10/25 14:19 A&P Assessment and plan 1. Acute hyperkalemia: 2. Missed dialysis: 3. Missed dialysis: 4. Congestive heart failure: 5. Hyperkalemia: 6. Neck pain: 7. Acute hyperkalemia: 8. Medical non-compliance: 9. Malignant hypertension: 10. Pulmonary edema: 11. Hypertensive urgency: Plan: Chronic renal failure on chronic hemodialysis -Hyperkalemia, with EKG changes - Missed dialysis as outpatient for the last week - Status post urgent dialysis in the ICU - Will monitor closely repeat BMP Malignant hypertension with hypertensive urgency - resume home blood pressure medications - Will consider Cardene drip based on clinical progress Anxiety disorder/depression - Psychiatry consulted - Continue home psychotropic medication GI and DVT prophylaxis in place PDMP PDMP Reviewed: Last Reviewed 08/10/25 08:10 by Eliceo Hays MD Attestations 2 Medical Necessity Statement*: Requires hospitalization for missed dialysis, hyperkalemia, malignant hypertension Diagnoses Acute hyperkalemia E87.5 Missed dialysis Congestive heart failure I50.9 Hyperkalemia E87.5 Neck pain M54.2 Medical non-compliance Z91.199 Malignant hypertension I10 Pulmonary edema J81.1 Hypertensive urgency I16.0
--- NOTE | 2025-08-10 19:20 | PC.NURSE ---
SHift summary: Pt rested in bed throughout shift. He rested with his eyes closed for the majority of time. He reports posterior neck pain. Acetaminophen admin once morphine admin twice. ( See MAR). He had dialysis : 2.5 liters removed. Calcium IVPB admin. His BUN, Creatinine and potassium levels improved from admitting labs. He had one large emotional outburst. He leveled out mid afternoon and attempted to be peasant. He barely picks at his meal trays but requested pudding frequently. No urine output, so unable to send any to lab.
[2025-08-10] MEDS: heparin 5,000 unit/mL INJ 1 mL 5000 UNIT SUBCUT (19:46)
[2025-08-10 21:45] LABS: Anion Gap 22.8 (5-19); Blood Urea Nitrogen 45 mg/dL (6-20); Calcium 9.5 mg/dL (8.5-10.5); Carbon Dioxide 26 mmol/L (22-29); Chloride 92 mmol/L (98-107); Creatinine Clr Calc Pharmacy 8.9338; Glucose 78 mg/dL (65-115); Osmolality Calculated 290 mOsm/kg (285-295); Potassium 5.8 mmol/L (3.5-5.1); Sodium 135 mmol/L (136-145)
--- NOTE | 2025-08-10 21:52 | PC.NURSE ---
Patient with critical cr at 9.0 and potassium 5.8. reported to Dr. pineda
[2025-08-11] VITALS (44 sets, daily range): BP systolic 104–154; BP diastolic 59–103; PULSE 60–94; RESP 10–23; TEMP 36.6–37.2; O2SAT 94–100
[2025-08-11] MEDS: morphine 4 mg/mL SDV 1 mL IVP (03:59)
[2025-08-11] MEDS: NIFEdipine ER (24 hr) 30 mg Tablet 90 MG PO (04:28)
[2025-08-11] MEDS: divalproex DR 500 mg Tablet PO ×2 (04:29→19:46)
[2025-08-11] MEDS: diphenhydrAMINE 50 mg/mL SDV 1mL IVP (04:29)
[2025-08-11 05:27] LABS: Alanine Aminotransferase 6 U/L (0-41); Albumin Level 4.5 g/dL (3.5-5.2); Alkaline Phosphatase 86 U/L (40-130); Anion Gap 25.6 (5-19); Aspartate Amino Transferase 11 U/L (0-40); Blood Urea Nitrogen 46 mg/dL (6-20); Calcium 10.0 mg/dL (8.5-10.5); Carbon Dioxide 26 mmol/L (22-29); Chloride 91 mmol/L (98-107); Creatinine Clr Calc Pharmacy 8.7396; Globulin 2.2 g/dL (1.3-4.6); Glucose 81 mg/dL (65-115); Magnesium 2.7 mg/dL (1.7-2.3); Osmolality Calculated 295 mOsm/kg (285-295); Potassium 5.6 mmol/L (3.5-5.1); Sodium 137 mmol/L (136-145); Total Protein 6.7 g/dL (6.6-8.7)
[2025-08-11] MEDS: ondansetron 2 mg/ML SDV 2 mL 4 MG IVP (05:42)
--- NOTE | 2025-08-11 06:26 | PC.NURSE ---
RN contacted Dr. hightower. notified of critical Cr and Phosphorus. K also made aware
[2025-08-11] MEDS: diphenhydrAMINE 50 mg/mL SDV 1mL 25 MG IVP ×2 (08:40→17:42)
--- NOTE | 2025-08-11 10:24 | PC.NURSE ---
Vance's father called for update. Vance verbalized permission to give update.
--- NOTE | 2025-08-11 10:52 | PC.SOCIAL ---
IMM Update pg 2 of IMM Updated and reviewed w/ patient. Copy provided and copy dated, initialed and placed in chart.
--- NOTE | 2025-08-11 15:34 | P.PN_ITS ---
Subjective 2 Subjective: doing well Medications: Reviewed: Yes Vitals/I&O/Wt Last Vital Signs Temp 98.9 F 08/11/25 13:30 Pulse 64 08/11/25 14:00 Resp 12 08/11/25 13:30 BP 117/78 08/11/25 13:30 Pulse Ox 98 08/11/25 13:30 O2 Del Method Room Air 08/11/25 13:30 08/11/25 08/11/25 08/11/25 06:59 14:59 22:59 Intake Total 200 / 1405 220 / 220 Output Total 0 / 3000 0 / 0 Balance 200 / -1595 220 / 220 Weight last 48 hrs Weight 47.4 kg Weight 50 kg Weight 49.895 kg Physical Exam 2 Narrative: awake , alert S1S2 RRR No jvd Lungs clear erick Abd soft , non tender Ext no edema Skin no rash Data 08/10/25 04:54 08/11/25 04:37 A&P Assessment and plan 1. ESRD on hemodialysis: 1. ESRD:missed HD and presented with volume overload and hyperkalemia. HD yesterday and today 2. Hypertension : resumed home meds 3. Hyperkalemia ,, low k diet , hd on a low k diet 4. Anemia : , monitor 5. MBD - on renvela , phso elevated Patient seen and examined with a nurse using audiovisual equipment. Patient consented to telehealth and to dialysis. 2. ESRD on dialysis: Plan: per medicine PDMP PDMP Reviewed: Not Reviewed Attestations 2 [facility] Necessity Statement*: [facility] Coding Level of Care Code Acute Code for Chg Fwd Diagnoses ESRD on hemodialysis N18.6; Z99.2 ESRD on dialysis N18.6; Z99.2
--- NOTE | 2025-08-11 15:45 | PC.NURSE ---
Jen at [facility] in [facility] notified pt will be discharging and expect him tomorrow on his regular dialysis day. [phone]
--- NOTE | 2025-08-11 15:50 | P.DS_ITS ---
Discharge Providers Date of Admission: 08/10/25 07:02 Date of Discharge: August 11, 2025 Attending Provider at Admission: Mercedez Cordero MD Attending Provider at Discharge: Eliceo Hays MD Primary Care Provider: Beverly Veronica MD Diagnoses at Discharge Discharge Diagnosis 1. ESRD on hemodialysis: 2. ESRD on dialysis: Reason for Visit Reason for Visit: anxiety Hospital Course Hospital Course This is a 25-year-old male with a past medical history of chronic renal failure, history of missing dialysis, history of noncompliance, history of renal transplant failure and rejection, depression anxiety, who presents [facility] after missing dialysis over 1 week Patient presented to [facility] for chronic renal failure on chronic hemodialysis - With hyperkalemia, with EKG changes - Received urgent dialysis as inpatient - EKG changes have resolved, - Will receive dialysis before discharge on 08/11/2025 - I had a detailed discussion with Vance about the morbidity and mortality associate with end-stage renal disease/dialysis and missing dialysis, including but not limited to hyperkalemia - I have offered solutions, and might help to try to figure out why he is missing dialysis - However he tells me that he missed dialysis due to issues with his rides, which I tried to help him in arranging that he transport to dialysis, but he then subsequently tells me he has it figured out and does not need help - Discussed about compliance with dialysis, morbidity and mortality associate with noncompliance, he voiced understanding, all questions answered For malignant hypertension and hypertensive urgency - Patient reports missing his medications - Concern for noncompliance - Patient was started on his home medications and required titration - Discussed compliance with blood pressure medication regimen - Discussed with him the morbidity and mortality associated with noncompliance, hypertensive urgency/emergency - He voiced understanding, all questions answered, agreed to proceed For anxiety/depression - Denies any suicidal ideation, homicidal ideation, denies feeling down depressed or sad - Initially had reported to the nursing staff that he went to go home on hospice but he recants that statement and it was taken out of contacts in terms of patient's narcotics - I have been upfront and clear with the patient that I will not prescribe him narcotics on discharge - Patient has received narcotics from various physicians on 08/03, 07/12 -He reports diffuse musculoskeletal aches and pain, but has no specific pain complaints. Recommended further workup and follow-up with primary care provider - He will need to follow-up with primary care provider for further workup for his pain Physical Exam Const: COMMON NORMALS: no acute distress and patient oriented x3 Resp: COMMON NORMALS: normal respiratory effort, No retractions, No use of accessory muscles and clear to auscultation bilaterally AUSCULTATION: clear to auscultation bilaterally Cardio: COMMON NORMALS: regular rate, regular rhythm, S1 normal heart sound present and S2 normal heart sound present RATE: regular rate RHYTHM: regular rhythm HEART SOUNDS: S1 normal heart sound present and S2 normal heart sound present GI: COMMON NORMALS: Normal to inspection, nondistended, normoactive bowel morenita nds present and non-tender Extremity: COMMON NORMALS: no pedal edema Neuro: COMMON NORMALS: patient oriented x3 Psych: COMMON NORMALS: mental status grossly normal Discharge Data Studies Completed and Pending Pending at discharge Category Date Time Status Comprehensive Metabolic Panel AM LABS Lab 08/12/25 04:00 Ordered Comprehensive Metabolic Panel AM LABS Lab 08/13/25 04:00 Ordered Drug Screen, Urine (O[facility]) Routine Lab 08/10/25 08:08 Uncollected Laboratory Results WBC 4.81 10^3/uL (3.29-11.43) 08/10/25 04:54 RBC 3.23 10^6/uL (3.85-5.65) L 08/10/25 04:54 Hgb 10.00 g/dL (11.27-16.99) L 08/10/25 04:54 Hct 31.0 % (37-53) L 08/10/25 04:54 MCV 96.0 fl (82-101) 08/10/25 04:54 MCH 31.0 pg (27-33) 08/10/25 04:54 MCHC 32.3 g/dL (30-55) 08/10/25 04:54 RDW 17.1 % (12.1-15.1) H 08/10/25 04:54 Plt Count 138 10^3/cmm (157-399) L 08/10/25 04:54 MPV 10.2 fL (7.4-10.4) 08/10/25 04:54 Neut % (Auto) 52.2 % 08/10/25 04:54 Lymph % (Auto) 19.1 % 08/10/25 04:54 [place] % (Auto) 21.0 % 08/10/25 04:54 Eos % (Auto) 5.8 % 08/10/25 04:54 Baso % (Auto) 1.5 % 08/10/25 04:54 Neut # (Auto) 2.51 10^3/uL (1.8-7.7) 08/10/25 04:54 Lymph # (Auto) 0.9 10^3/uL (0.8-4.8) 08/10/25 04:54 [place] # (Auto) 1.0 10^3/uL (0.2-0.9) H 08/10/25 04:54 Eos # (Auto) 0.3 10^3/uL (0.0-0.8) 08/10/25 04:54 Baso # (Auto) 0.1 10^3/uL (0.0-0.1) 08/10/25 04:54 Nucleated RBC % (auto) 0 % 08/10/25 04:54 Nucleated RBCs # 0.0 /100WBC 08/10/25 04:54 Sodium 137 mmol/L (136-145) 08/11/25 04:37 Potassium 5.6 mmol/L (3.5-5.1) H 08/11/25 04:37 Chloride 91 mmol/L (98-107) L 08/11/25 04:37 Carbon Dioxide 26 mmol/L (22-29) 08/11/25 04:37 Anion Gap 25.6 (5-19) H 08/11/25 04:37 BUN 46 mg/dL (6-20) H 08/11/25 04:37 Creatinine 9.2 mg/dL (0.7-1.2) H* 08/11/25 04:37 GFR Calculation 7.0 mL/min (90-130) L 08/11/25 04:37 Glucose 81 mg/dL (65-115) 08/11/25 04:37 POC Glucose 106 mg/dL (70-110) 08/10/25 07:05 Calculated Osmolality 295 mOsm/kg (285-295) 08/11/25 04:37 Calcium 10.0 mg/dL (8.5-10.5) 08/11/25 04:37 Phosphorus 10.6 mg/dL (2.5-4.5) H* 08/11/25 04:37 Magnesium 2.7 mg/dL (1.7-2.3) H 08/11/25 04:37 Total Bilirubin 0.3 mg/dL (0.15-1.2) 08/11/25 04:37 AST 11 U/L (0-40) 08/11/25 04:37 ALT 6 U/L (0-41) 08/11/25 04:37 Alkaline Phosphatase 86 U/L (40-130) 08/11/25 04:37 NT-Pro-B Natriuret Pep > 76413 pg/mL (0-125) H 08/10/25 04:54 Total Protein 6.7 g/dL (6.6-8.7) 08/11/25 04:37 Albumin 4.5 g/dL (3.5-5.2) 08/11/25 04:37 Globulin 2.2 g/dL (1.3-4.6) 08/11/25 04:37 Ethyl Alcohol < 10 mg/dL (0-10) 08/10/25 08:48 Vitals Last Vital Signs Temp 98.9 F 08/11/25 13:30 Pulse 64 08/11/25 14:00 Resp 12 08/11/25 13:30 BP 117/78 08/11/25 13:30 Pulse Ox 98 08/11/25 13:30 O2 Del Method Room Air 08/11/25 13:30 Discharge Plan Discharge Patient Disposition: Home Condition: Stable Prescriptions: Continued sumatriptan 20 mg/actuation spray,non-aerosol 20 mg INTRANASAL Q12H PRN (Reason: Migraine Headache) hydralazine 100 mg tablet 100 mg PO TID Lokelma 5 gram powder in packet 5 g PO DAILY Qty: 11 2RF prednisone 5 mg tablet 5 mg PO DAILY sevelamer carbonate 800 mg tablet See Rx Instructions .ROUTE .COMPLEX Rx Instructions: TAKE 2 TABLETS BY MOUTH DAILY FOR 4 WEEKS, THEN 1 TABLET DAILY THEREAFTER. clonazepam [Klonopin] 1 mg tablet 1 mg PO BID PRN (Reason: anxiety) Qty: 10 0RF fluoxetine 10 mg capsule 10 mg PO DAILY acetaminophen 325 mg Tablet 650 mg PO Q6H PRN (Reason: Mild/Mod Pain Or Temp >/= 101) Qty: 30 0RF clonidine HCl 0.1 mg Tablet 0.2 mg PO TID Qty: 90 0RF divalproex 500 mg Tablet,Delayed Release (Dr/Ec) 500 mg PO BID Qty: 60 0RF methocarbamol 750 mg tablet 750 mg PO Q8H PRN (Reason: muscle spasm) Qty: 30 0RF nifedipine 90 mg tablet extended release 90 mg PO DAILY 30 Days Qty: 30 0RF Changed labetalol 100 mg tablet 300 mg PO BID 30 Days Qty: 180 0RF losartan 50 mg Tablet 100 mg PO DAILY 30 Days Qty: 120 0RF Discontinued oxycodone 5 mg tablet 5 mg PO Q8H MDD 15mg PRN (Reason: Pain) Referrals: Beverly Veronica MD [Primary Care Provider, [facility]] Discharge Diet: Cardiac Discharge Activity: Resume usual activity Patient Instructions: Opioid Safety, Pain Management, Patient Portal & Adria Instructions Activity Restrictions/Additional Instructions: - Please follow-up with primary care provider - Follow-up with primary care provider for refills of your benzodiazepines and narcotics - Please take blood pressure medications as prescribed - Follow-up with Discharge Attestations Time Spent in Discharge Care*: greater than 30 min Status at Discharge: Cognitive status at discharge: cognitively intact , Behavioral status at discharge: cooperative and can be uncooperative , Quality Metrics Clinical Quality Measures [ No reported AMI, CVA or VTE this stay] Coding Level of Care Code Acute Code for Chg Fwd Diagnoses ESRD on hemodialysis N18.6; Z99.2 ESRD on dialysis N18.6; Z99.2
--- NOTE | 2025-08-11 16:20 | P.NPUCON_ITS ---
Providers/Reason for Consult 2 Consulting Physican/Specialty*: Carlos Tracy MD/Psychiatry Reason for Consult*: suicidal ideation. Attending Physician: Eliceo Hays MD Primary Care Provider: Beverly Veronica MD Psych Consult HPI History of Present Illness Vance Sainz is a 25 year old male with end-stage renal disease on dialysis with a history of depression and anxiety. The patient denied any suicidal ideation. He had reported that he was feeling better. He had reported that he had been receiving follow-up with Jack Ly at [facility] but stated that it had been a few months since he was seen in [place]. The patient reported that he had trouble with making his appointments on a regular basis for dialysis. He had stated that he was no longer on the kidney transplant list. He had denied any recent drug use. He denied any feelings of hopelessness or worthlessness. He reported that he had not yet started psychotherapy. Meds Home Medications and Allergies Home Medications ?Medication ?Instructions ?Recorded ?Confirmed ?Last Taken ?Type clonazepam 1 mg tablet (Klonopin) 1 mg PO BID PRN anxi ety #10 tabs 01/09/25 08/10/25 02/12/25 09:00 Rx hydralazine 100 mg tablet 100 mg PO TID 04/05/2508/10 Unknown History sumatriptan 20 mg/actuation nasal 20 mg intranasal Q12 H PRN Migraine 04/05/25 08/10/25 Unknown History spray Headache fluoxetine 10 mg capsule 10 mg PO DAILY 06/28/25 10/01/1007/09/25 History acetaminophen 325 mg tablet 650 mg (2 x 325 mg) PO Q6H PRN 06/29/25 08/10/25 07/09/25 Rx Mild/Mod Pain Or Temp >/= 101 #30 tabs clonidine HCl 0.1 mg tablet 0.2 mg (2 x 0.1 mg) PO TID #90 tabs 06/29/25 08/10/25 07/09/25 Rx divalproex 500 mg tablet,delayed 500 mg PO BID #60 tab s 06/29/25 08/10/25 07/09/25 Rx release methocarbamol 750 mg tablet 750 mg PO Q8H PRN muscle s pasm #30 07/08/25 08/10/25 07/09/25 Rx tabs sodium zirconium cyclosilicate 5 5 g PO DAILY #11 ea 0 07/12/25 08/10/25 Unknown Rx gram oral powder packet (Lokelma) prednisone 5 mg tablet 5 mg PO DAILY 07/17/2508/10 Unknown History sevelamer carbonate 800 mg tablet See Rx Instructions .Route .COMPLEX 07/17/25 08/10/25 Unknown History labetalol 100 mg tablet 300 mg (3 x 100 mg) PO BID 3 0 days 08/11/25 Unknown Rx #180 tabs losartan 50 mg tablet 100 mg (2 x 50 mg) PO DAILY 30 08/11/25 Unknown Rx days #120 tabs nifedipine 90 mg tablet,extended 90 mg PO DAILY 30 day s #30 tabs 08/11/25 Unknown Rx release Allergies Allergy/AdvReac Type Severity Reaction Status Date / Time NSAIDS (Non-Steroidal Allergy Severe unable to Verified 06/27/25 20:41 Anti-Inflamma take due to kidney disease sertraline (From Zoloft) Allergy Unknown Verified 06/27/25 20:41 Current Medications Current Medications Generic Name Dose Route Start Last Admin Trade Name Freq PRN Reason Stop Dose Admin Acetaminophen 650 mg 08/10/25 06:09 08/11/25 15:02 Acetaminophen 325 Mg Tablet PO 650 mg Q6H PRN Administration Mild/Mod Pain Or Temp >/= 101 Clonazepam 1 mg 08/10/25 08:18 08/11/25 10:14 Clonazepam 1 Mg Tablet PO 1 mg BID PRN Administration anxiety Clonidine HCl 0.2 mg 08/10/25 13:00 08/11/25 13:18 Clonidine 0.1 Mg Tablet PO 0.2 mg TID OMAR Administration Diphenhydramine HCl 25 mg 08/11/25 04:17 08/11/25 08:40 Diphenhydramine 50 Mg/Ml Sdv 1ml IVP 25 mg Q6H PRN Administration ITCHING Divalproex Sodium 500 mg 08/10/25 08:20 08/11/25 04:[address] 500 Mg Tablet PO 500 mg BID OMAR Administration Docusate Sodium 100 mg 08/10/25 17:00 08/11/25 04:29 Docusate Sodium 100 Mg Capsule PO 100 mg BID OMAR Administration Fluoxetine HCl 10 mg 08/10/25 08:20 08/11/25 04:29 Fluoxetine 10 Mg Capsule PO 10 mg DAILY OMAR Administration Heparin Sodium (Porcine) 5,000 unit 08/10/25 19:15 08/11/25 08:34 Heparin 5,000 Unit/Ml Inj 1 Ml SUBCUT Not Given Q12H OMAR Hydralazine HCl 100 mg 08/10/25 13:00 08/11/25 13:18 Hydralazine 50 Mg Tablet PO 100 mg TID OMAR Administration Labetalol HCl 300 mg 08/10/25 08:20 08/11/25 04:28 Labetalol 200 Mg Tablet PO 300 mg BID OMAR Administration Losartan Potassium 100 mg 08/11/25 05:00 08/11/25 04:28 Losartan 50 Mg Tablet PO 100 mg DAILY OMAR Administration Morphine Sulfate 4 mg 08/10/25 06:14 08/11/25 03:59 Morphine 4 Mg/Ml Sdv 1 Ml IVP 4 mg Q4H PRN Administration SEVERE PAIN Nifedipine 90 mg 08/10/25 15:32 08/11/25 04:28 Nifedipine Er (24 Hr) 30 Mg Tablet PO 90 mg DAILY OMAR Administration Ondansetron HCl 4 mg 08/10/25 05:59 08/11/25 05:42 Ondansetron 2 Mg/Ml Sdv 2 Ml IVP 4 mg Q6H PRN Administration NAUSEA AND VOMITING Pantoprazole Sodium 40 mg 08/11/25 05:00 08/11/25 04:[address] 40 Mg Tablet PO 40 mg DAILY OMAR Administration Senna 17.2 mg 08/10/25 21:00 08/10/25 21:30 Sennosides 8.6 Mg Tablet PO 17.2 mg BEDTIME OMAR Administration PFSH NPU 2 PFSH: Medical History Anemia Renal transplant failure and rejection Kidney transplant failure Noncompliance with renal dialysis Adrenal insufficiency Hypoglycemia CKD (chronic kidney disease) stage V requiring chronic dialysis Generalized anxiety disorder Other stimulant dependence, in remission Problems related to lack of adequate sleep Substance abuse Depression Anxiety Surgical History Kidney transplant recipient Social History Smoking and tobacco/nicotine status: tobacco/nicotine user, details unknown e- cigarettes E-Cigarette Details: vaporizer device and with nicotine E-cig/vape details: 6 mg and smokeless tobacco Smokeless tobacco user: chewing tobacco Smokeless tobacco details: 1 can/3 days. Quit status (tobacco/nicotine): has tried quititng Number of times tried to quit tobacco: 4 Second hand smoke exposure: No Alcohol intake: never Substance/Drug Use: current Substance/Drug use frequency: Special occassions/opportunity only Additional social history: Patient uses marijuana 1 g every other day he has remote history of some meth use. He reports chewing tobacco and using nicotine pouches but denies smoking cigarettes. He denies suicidal ideation. Patient is companied by his girlfriend and his CODE STATUS is always been full code confirmed with the patient on 06/05/2025 that he wants full CODE STATUS by Daron Ayala MD Patient admits to THC use Mental Status Exam 2 MSE Comments: This is a short diminutive white male with adequate grooming and fair eye contact. There is no evidence of any abnormal involuntary motor movements, tics or tremors appreciated. There was evidence of mild psychomotor retardation. He was cooperative on interview and appeared in mild distress. There was some tattoos on his exposed skin. His speech was normal in regards to rate,rhythm, and prosody. His mood was described as better. His affect was mildly restricted. His thought process was linear, logical and goal-directed. His thought content showed no evidence of homicidal ideation or suicidal ideation. There was no clear evidence of delusional thinking. He did not appear to be responding to internal stimuli. He denied any auditory, or visual hallucinations. His attention span appeared adequate. His concentration appeared fair. His recent and remote memory was grossly intact. He was alert and oriented to person,place, time and situation. His insight is limited. His judgment is fair. His impulse control appeared adequate. Vitals/I&O/Wt Last Vital Signs Temp 98.9 F 08/11/25 13:30 Pulse 64 08/11/25 14:00 Resp 12 08/11/25 13:30 BP 117/78 08/11/25 13:30 Pulse Ox 98 08/11/25 13:30 O2 Del Method Room Air 08/11/25 13:30 08/11/25 08/11/25 08/11/25 06:59 14:59 22:59 Intake Total 200 / 1405 220 / 220 Output Total 0 / 3000 0 / 0 Balance 200 / -1595 220 / 220 Weight last 48 hrs Weight 47.4 kg Weight 50 kg Weight 49.895 kg Data NPU 08/10/25 04:54 08/11/25 04:37 A&P Assessment and plan 1. Major depressive disorder, recurrent: 2. Generalized anxiety disorder: 3. Acute anxiety: 4. Suicidal ideation: 5. ESRD on hemodialysis: 6. Parent-child relational problem: Plan: This is a 25-year-old, white male, with a long history of trauma, post- traumatic stress disorder, addiction, anxiety, and loss, who presents to ICU with hyperkalemia. Patient denies suicidal or homicidal ideation. RECOMMENDATION AND PLAN: 1. Continue current medications. 2. Recommend follow up appointment with Jack Ly NP at [facility] for medication management. Referral for psychotherapy at [facility] recommended as well. 3. Patient last prescribed Klonopin 1mg bid over 2 months ago. Would recommend holding this medication as patient does not use this medication routinely. PDMP PDMP Reviewed: Not Reviewed Involuntary Hold Information 2 96 Hour Hold: 96 Hour Involuntary Admission: Yes Attestations NPU 2 Medical Necessity Statement*: Inpatient psychiatric hospitalization not recommended. Coding Level of Care Code Acute Code for Chg Fwd Diagnoses Major depressive disorder, recurrent F33.9 Generalized anxiety disorder F41.1 Acute anxiety F41.9 Suicidal ideation R45.851 ESRD on hemodialysis N18.6; Z99.2 Parent-child relational problem Z62.820
--- NOTE | 2025-08-11 18:12 | PC.NURSE ---
1700 meds held, dialysis in progress. Plan to admin closer to dialysis end.
--- NOTE | 2025-08-11 18:24 | PC.NURSE ---
Shift summary: Pt rested in bed throughout the shift. He has been dozing intermittently for most of the shift. He has been polite and pleasant this shift. He is still picking at his meals. Had cereal for a snack this afternoon. He requested acetaminophen once for his posterior neck pain. He has had his PRN Clonazapam and once admin of Benadryl this shift. He is receiving dialysis at this time, to discharge after. No urine output this shift.
--- NOTE | 2025-08-11 18:55 | PC.NURSE ---
Dialysis to be completed in 1.5 hrs. Offered pt his Depakote and Labetalol. BP 109/86. Pt declined medications at this time, he wants to re-assess after dialysis.
== END 2025-08-11 21:02 | disposition home or self-care (01) | DRG 640 ==
LOC: ER 06:58 → ICU 07:03
PROVIDERS: Admitting Provider Internal Medicine; Emergency Provider Emergency Medicine; PCP Family Medicine; Visit Provider Family Medicine
DX: E87.5 Hyperkalemia (principal); N18.6 End stage renal disease; I13.2 Hypertensive heart and chronic kidney disease with heart failure and with stage 5 chronic kidney disease, or end stage renal disease; R45.851 Suicidal ideations; F33.9 Major depressive disorder, recurrent, unspecified; T86.11 Kidney transplant rejection; E27.40 Unspecified adrenocortical insufficiency; I16.0 Hypertensive urgency; I50.9 Heart failure, unspecified; F41.1 Generalized anxiety disorder; D63.1 Anemia in chronic kidney disease; F15.21 Other stimulant dependence, in remission; F17.290 Nicotine dependence, other tobacco product, uncomplicated; F43.10 Post-traumatic stress disorder, unspecified; M54.2 Cervicalgia; Z99.2 Dependence on renal dialysis; Z91.158 Patient's noncompliance with renal dialysis for other reason; Z63.8 Other specified problems related to primary support group
CPT/HCPCS: 36415; 36416; 80048; 80053; 80307; 82962; 83735; 83880; 84100; 85025; 90935; 93005; 96372; 96374; 96375; 99285; J0360; J0612; J1200; J1644; J1815; J2060; J2270; J2405; J3490; J7060; J7799; J9999

== ENCOUNTER 2025-08-17 19:59 | Inpatient (IN) | payer OTHER, MEDICAID, SELFPAY ==
--- OUTSIDE RECORDS SUMMARY | 2025-08-10 00:20 | XMS_ITS | Encounter Summary ---
Author Organization [facility] Address 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 May repeat in alternating nostrils every 2-3 min until responsive or EMS arrives. 2 Each 3 07/21/2025 cefdinir (OMNICEF) 300 mg capsule Take 1 Capsule by mouth 2 times daily. 07/12/2025 divalproex (DEPAKOTE) 500 mg delayed release tablet Take 1 Tablet by mouth 2 times daily. 06/30/2025 vit B,L-EK-lbva-miguel en-vit D3-E (RenaPlex-D) 800 mcg-12.5 mg -2,000 unit Tablet Take 1 Tablet by mouth. 02/15/2025 FLUoxetine (PROzac) 10 mg capsule Take 1 Capsule by mouth daily. 05/19/2025 methocarbamoL (ROBAXIN) 1,000 mg Tablet tablet Take 1 Tablet by mouth every 6 hours. 04/14/2025 methoxy peg-epoetin beta (MIRCERA INJECTION) 75 mcg every 2 weeks. 04/21/2025 amLODIPine (NORVASC) 10 mg tablet Take 1 Tablet (10 mg) by mouth daily. 30 Tablet 2 02/03/2025 hydrALAZINE (APRESOLINE) 50 mg tablet Take 1 Tablet (50 mg) by mouth every 8 hours. Take an additional dose every 6 hours prn if SBP > 160, DBP >100. 90 Tablet 2 02/03/2025 labetaloL (NORMODYNE) 100 mg tablet Take 1 Tablet (100 mg) by mouth 2 times daily. 60 Tablet 2 02/03/2025 losartan (COZAAR) 25 mg tablet Take 1 Tablet (25 mg) by mouth daily. 30 Tablet 2 02/03/2025 calcitRIOL (ROCALTROL) 0.25 mcg capsule Take 0.75 mcg by mouth daily. Post dialysis 01/09/2025 clonazePAM (KlonoPIN) 1 mg tablet Take 1 mg by mouth see administration instructions. Just on dialysis days 3x a week 01/31/2025 predniSONE (DELTASONE) 5 mg tablet Take 5 mg by mouth daily. 05/19/2023 oxyCODONE (ROXICODONE) 5 mg tabletIndicatio ns:Chronic neck pain Take 1 Tablet (5 mg) by mouth every 8 hours as needed for Pain. Max Daily Amount: 15 mg 21 Tablet 08/03/2025 documented as of this encounter Plan of Treatment Upcoming Encounters Date Type Department Care Team (Late st Contact Info) Description 12/05/2025 2:40 PM ADMINISTRATIVE VOLUNTEER Office Visit [facility] [address] [phone] Beverly Veronica MD [address] [phone] documented as of this encounter Visit Diagnoses Not on filedocumented in this encounter Additional Health Concerns Assessment Noted Time PHQ-9 Depression Total Score: 3 05/29/20 25 3:06 PM CDT documented as of this encounter Care Teams Director Of Manufacturing Operations Relationship Specialty Start Date End Date Beverly Veronica MD [address] [place] [phone] PCP - General Family Practice 05/29/25 documented as of this encounter
[2025-08-17] VITALS (10 sets, daily range): BP systolic 212–250; BP diastolic 143–156; PULSE 72–94; RESP 16–24; O2SAT 95–100
--- OUTSIDE RECORDS SUMMARY | 2025-08-17 20:04 | XMS_ITS | Encounter Summary ---
Author Organization [facility], [facility] Address [address] [place] [address] Phone Care Team Providers Care Movie Machine Operator Name Role Phone Unavailable Primary Care Provider Unavailabl e Encounter Details Date Type Department Care Team (Late st Contact Info) Description 08/12/2025 Orders Only [facility] [address] [place] [address] Shahriar Byers MD [address] [facility] [address] [place] [address] Social History Tobacco Use Types [...] Priority Date/Time Associated Diagnosis Comments HEMATOLOGY Routine 08/12/2025 documented in this encounter Results * (ABNORMAL) HEMATOLOGY (08/12/2025) Hemoglobin 11.7(L) 14.0 - 18.0 g/dL [facility] Hemoglobin x 3 35.1(L) 42.0 - 54.0 % [facility] 08/12/2025 08/16/2025 4:3 9 PM CDT Narrative [facility] - 08/16/2025 Unless otherwise specified, test(s) performed at: [facility], [address] [place] [address] RESIDENTIAL FEE APPRAISER: Ryan Singer M.D. For any questions, please call customer service at FREQUENCY:OTHER Resulting Agency Comment Specimen source: Blood us Shahriar Byers MD LAB BLOOD ORDERABLES Final Result [facility] See order comments or contact performing lab Unknown, [place] documented in this encounter Visit Diagnoses Not on filedocumented in this encounter
--- OUTSIDE RECORDS SUMMARY | 2025-08-17 20:04 | XMS_ITS | Encounter Summary ---
Author Organization [facility], [facility] Address [address] [facility] [address] [place] [address] Phone Care Team Providers Care Home Therapy Clinician Name Role Phone Unavailable Primary Care Provider Unavailabl e Encounter Details Date Type Department Care Team (Late st Contact Info) Description 02/15/2025 TCM in Dialysis Clinic [facility], [facility] [address] [place] [address] Saskia Peterson INCOME TAX ADMINISTRATOR [address] [facility] [address] [place] [address] Social History Tobacco Use Types [...] 02/15/2025 The patient was seen for a [id number] visit as part of Transitional Care Management services. 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 COMMENTS: See jennifer 1.0. Also hospitalized at [facility] this week for vol overload and hyperkalemia [...] Reviewed and updated list in p-hub. Current [facility] Outpatient Medications amlodipine 10 mg tablet [...] by mouth every night at bedtime. Current [facility] Allergies Allergen: No Known Allergies Allergen: [...] 99.1*F Current Dialysis Vitals BP Sit: 145/84 AP/HOSEMAN: -- Pulse: 88 CARE COORDINATION Post-discharge follow-up [...] Discussed with staff. VISIT DIAGNOSES CPT Code 28204 - High complexity, seen within 7 days [...]
--- OUTSIDE RECORDS SUMMARY | 2025-08-17 20:04 | XMS_ITS | Encounter Summary ---
Author Organization [facility], [facility] Address [address] [address] Phone Care Team Providers Care Beer Runner Name Role Phone Unavailable Primary Care Provider Unavailabl e Reason for Visit * Reason Comments Med Refill Encounter Details Date Type Department Care Team (Late st Contact Info) Description 04/14/2024 Refill [facility] [address] [facility] [address] [place] [address] Shahriar Byers MD [address] [address] Social History Tobacco Use Types [...]
--- OUTSIDE RECORDS SUMMARY | 2025-08-17 20:04 | XMS_ITS | Clinical Summary ---
Author Organization [facility], [facility] Address [address] [place] [address] Phone Care Team Providers Care Director Of Officiating Name Role Phone Unavailable Primary Care Provider Unavailabl e Encounters Date Type Department Care Team Description 08/12/2025 Orders Only [facility], [facility] [address] [place] [address] Shahriar Byers MD 08/03/[address] [place] [address] [facility], [facility] [address] [place] [address] Saskia Navas NP End stage renal disease; Dependence on renal dialysis 08/02/2025 Orders Only [facility], [facility] [address] [place] [address] Shahriar Byers MD 07/27/[address] [place] [address] [facility], [facility] [address] [place] [address] Saskia Navas NP Hyperkalemia; Hypertensive urgency; End stage renal disease; Dependence on renal dialysis 07/27/2025 TCM in Dialysis Clinic [address] [place] [address] [facility], [facility] [address] [place] [address] Saskia Navas NP 07/25/2025 Orders Only [facility], [facility] [address] [place] [address] Shahriar Byers MD 07/20/2025 Orders Only [facility], [facility] [address] [place] [phone] Shahriar Byers MD 07/20/2025 Treatment [facility], [facility] [address] [place] [address] Saskia Navas NP End stage renal disease; Dependence on renal dialysis 2025 Orders Only [facility], [facility] [address] [place] [address] Shahriar Byers MD 2025 Treatment [facility], [facility] [address] [place] [address] Shahriar Byers MD End stage renal disease; Dependence on renal dialysis 07/06/2025 [facility], [facility] [address] [place] [address] Shahriar Byers MD 07/06/2025 Treatment [facility], [facility] [address] [place] [address] Saskia Navas NP End stage renal disease; Dependence on renal dialysis 07/05/2025 Orders Only [facility], [facility] [address] [place] [address] Shahriar Byers MD 06/20/2025 Orders Only [facility], [facility] [address] [place] [address] Shahriar Byers MD 06/14/[address] [place] [address] [facility], [facility] [address] [place] [address] Shahriar Byers MD End stage renal disease; Dependence on renal dialysis 06/12/2025 Orders Only [facility], [facility] [address] [place] [address] Shahriar Byers MD 06/05/2025 Orders Only [facility], [facility] [address] [place] [address] Shahriar Byers MD 05/30/2025 Orders Only [facility], [facility] [address] [place] [phone] Shahriar Byers MD 05/26/2025 Treatment [facility], [facility] [address] [place] [address] Saskia Navas NP End stage renal disease; Dependence on renal dialysis 05/25/[facility] [facility], [facility] [address] [place] [address] Saskia Navas NP End stage renal disease; Dependence on renal dialysis 05/23/2025 Orders Only [facility], [facility] [address] [place] [address] Shahriar Byers MD from Last [...] Date/Time Associated Diagnosis Comments HEMATOLOGY Routine 08/12/2025 [facility] RESULTS Routine 08/02/2025 HD KINETICS Routine 08/02/2025 POST CHEMISTRY Routine 08/02/2025 CHEMISTRY Routine 08/02/2025 CHEMISTRY Routine 08/02/2025 HEMATOLOGY Routine 08/02/2025 HEMATOLOGY Routine 07/25/2025 HEMATOLOGY Routine 07/20/2025 TRACE [...] 05/30/2025 CHEMISTRY Routine 05/23/2025 HEMATOLOGY Routine 05/23/2025 from Last 3 Months Results * (ABNORMAL) HEMATOLOGY (08/12/2025) Only the most recent of11 resultswithin the time period is included. Hemoglobin 11.7(L) 14.0 - 18.0 g/dL [facility] Hemoglobin x 3 35.1(L) 42.0 - 54.0 % [facility] 08/12/2025 08/16/2025 4:3 9 PM CDT Narrative [facility] - 08/16/2025 Unless otherwise specified, test(s) performed at: [email or web address], [address] [place], [place] [id number] RECEIVING TEAM MEMBER: Ryan Singer M.D. For any questions, please call customer service at FREQUENCY:OTHER Resulting Agency Comment Specimen source: Blood us Shahriar Beyrs MD LAB BLOOD ORDERABLES Final Result [facility] See order comments or contact performing lab Unknown, [place] * HD KINETICS (08/02/2025) Only the most recent of4 resultswithin the time period is included. % Urea Reduction 69 65 - 80 % [facility] 08/02/2025 08/04/2025 1:5 2 PM CDT Narrative Resulting Agency Comment Specimen source: Plasma Shahriar Byers MD LAB BLOOD ORDERABLES Final Result Performing Organization Address City/[facility] Co de Phone Number [facility] See order comments or contact performing lab Unknown, [place] * (ABNORMAL) POST CHEMISTRY (08/02/2025) Only the most recent of4 resultswithin the time period is included. BUN Post Dialysis 28(H) 6 - 19 mg/dL [facility] 08/02/2025 08/04/2025 1:5 2 PM CDT Narrative [facility] - 08/04/2025 Unless otherwise specified, test(s) performed at: [email or web address], [address] [place] [address] RECEIVING TEAM MEMBER: Ryan Singer M.D. For any questions, please call customer service at FREQUENCY:MONTHLY Resulting Agency Comment Specimen source: Plasma Shahriar Byers MD LAB BLOOD ORDERABLES Final Result Performing Organization Address [facility] de Phone Number [facility] See order comments or contact performing lab Unknown, [place] * (ABNORMAL) [facility] (08/02/2025) Only the most recent of9 resultswithin the time period is included. BUN 89(H) 6 - 19 mg/dL [facility] Creatinine 12.93(H) 0.60 - 1.30 mg/dL [facility] BUN/Creatinine Ratio 6.9(L) 10.0 - 20.0 [facility] Sodium 138 136 - 145 mEq/L [facility] Potassium 6.6(H) 3.5 - 5.1 mEq/L [facility] Chloride 98 96 - 108 mEq/L [facility] Bicarbonate (CO2) 22 22 - 29 mEq/L [facility] Calcium 8.9 8.4 - 10.2 mg/dL [facility] Corrected Calcium 8.7 8.4 - 10.2 mg/dL [facility] Comment: Corrected Calcium is not equivalent to measured Ionized Calcium. Phosphorus 8.3(H) 2.6 - 4.5 mg/dL [facility] Calcium Phosphorus Product 74(H) 0 - 54 [facility] Calcium Phosporus Product, Cor 72(H) 0 - 54 [facility] Total Protein 6.4 6.0 - 8.5 g/dL [facility] Albumin 4.3 3.5 - 5.2 g/dL [facility] Globulin, Total 2.1 2.0 - 4.0 g/dL [facility] A/G Ratio 2.0 1.0 - 2.0 [facility] Glucose 77 70 - 100 mg/dL [facility] Iron 62 45 - 160 mcg/dL [facility] UIBC 206 155 - 355 mcg/dL [facility] TIBC 268 185 - 515 mcg/dL [facility] Iron Saturation (TSat) 23 20 - 55 % [facility] 08/02/2025 08/03/2025 11: 28 AM CDT Narrative [facility] Unless otherwise specified, test(s) performed at: [email or web address], [address] [place] [address] RECEIVING TEAM MEMBER: Ryan Singer M.D. For any questions, please call customer service at FREQUENCY:MONTHLY Resulting Agency Comment Specimen source: Serum Shahriar Byers MD LAB BLOOD ORDERABLES Final Result Performing Organization Address City/[facility]/ZIP Co de Phone Number [facility] See order comments or contact performing lab Unknown, [place] * [facility] Results (08/02/2025) Only the most recent of4 resultswithin the time period is included. eKdrt/V 1.06 [facility] WSTDKT/V 2.3 [facility] nPCR_HD 1.16 [facility] spKt/V (Daugirdas II) 1.43 [facility] PCR 68.26 [facility] Center spKt/V Gotch 1.39 Knowled [facility] Center eKt/V ([place]) 1.15 [facility] eNPCR 1.05 [facility] eKt/V Got 1.06 [facility] 08/02/2025 08/02/2025 [facility] [place] LAB BLOOD ORDERABLES Final Result [facility] Contact Performing lab Unknown, [place] * SPECIAL CHEMISTRY (2025) Only the most recent of2 resultswithin the time period is included. Pathologist [facility] Vitamin D, 25-OH, Total 48.0 30.0 - 100.0 ng/mL [facility] Comment: Please Note: Effective August 17, 2023, the methodology for this test has changed to the [facility]. 2025 07/14/2025 9:3 3 AM CDT Narrative Resulting Agency Comment Specimen source: Serum Shahriar Byers MD LAB BLOOD BANK TEST O RDERABLES Final Result Performing Organization Address [facility] de Phone Number [facility] See order comments or contact performing lab Unknown, [place] * TRACE ELEMENTS (2025) Pathologist [facility] Aluminum <5 0 - 10 mcg/L [facility] Comment: This test was developed and its performance characteristics determined by [email or web address]. It has not been cleared or approved by the FDA. The laboratory is regulated under CLIA as qualified to perform high complexity testing. This test is used for clinical purposes. It should not be regarded as investigational or for research. 2025 07/14/2025 9:3 2 AM CDT Narrative [facility] - 07/18/2025 Unless otherwise specified, test(s) performed at: [email or web address], [address] [place] [id number] RECEIVING TEAM MEMBER: Ryan Singer M.D. For any questions, please call customer service at FREQUENCY:MONTHLY Resulting Agency Comment Specimen source: Serum Shahriar Byers MD LAB BLOOD ORDERABLES Final Result Performing Organization Address [facility] de Phone Number [facility] See order comments or contact performing lab Unknown, [place] from Last 3 Months Insurance Medicaid [place] ([id number]) [facility] Medicare
--- OUTSIDE RECORDS SUMMARY | 2025-08-17 20:04 | XMS_ITS | Encounter Summary ---
Author Organization [facility], [facility] Address [address] [place] [address] Phone Care Team Providers Care Edge Finisher Name Role Phone Unavailable Primary Care Provider Unavailabl e Encounter Details Date Type Department Care Team (Late st Contact Info) Description 08/27/2022 [facility] [address] [place] [address] Kidney transplant status Social History [...]
--- OUTSIDE RECORDS SUMMARY | 2025-08-17 20:04 | XMS_ITS | Encounter Summary ---
Author Organization [facility] Address 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 Gender Identity Not on file Sexual Orientation [...] st Contact Info) Description 12/05/2025 2:40 PM DCS ENGINEER Office Visit [facility] [address] [address] Beverly Veronica MD [address] [address] documented as of this encounter Visit Diagnoses Not on filedocumented in this encounter Additional Health Concerns Assessment Noted Time PHQ-9 Depression Total Score: 3 05/29/20 25 3:06 PM CDT documented as of this encounter Care Teams Funeral Pre Arrangement Specialist Relationship Specialty Start Date End Date Beverly Veronica MD [address] [address] PCP - General Family Practice 05/29/25 documented as of this encounter
--- OUTSIDE RECORDS SUMMARY | 2025-08-17 20:04 | XMS_ITS | Encounter Summary ---
Author Organization [email or web address], [facility] Address [address] [place] [address] Phone Care Team Providers Care Parole Hearing Officer Name Role Phone Unavailable Primary Care Provider Unavailabl e Encounter Details Date Type Department Care Team (Late st Contact Info) Description 07/27/2025 TCM in Dialysis Clinic [email or web address], [facility] [address] [place] [address] Saskia Navas NP [address] [facility] [address] [place] [address] Social History Tobacco Use Types [...] Vance Sainz, 2000, 25y, M Dialysis Location: [facility] Attending Telegrapher Agent: Shahriar Byers Service Date: 07/27/2025 Service Provider: [...]
--- OUTSIDE RECORDS SUMMARY | 2025-08-17 20:04 | XMS_ITS | Encounter Summary ---
Author Organization [facility] Address [address] [address] Phone Care Team Providers Care Child Welfare Specialist Name Role Phone Unavailable Primary Care Provider Unavailabl e Encounter Details Date Type Department Care Team (Late st Contact Info) Description 04/01/2023 Telephone [facility] [address] [address] Shawn Betancourt MD [address] [place] [address] Social History Tobacco Use Types Packs/Day Years [...]
--- OUTSIDE RECORDS SUMMARY | 2025-08-17 20:04 | XMS_ITS | Clinical Summary ---
Author Organization [facility] [facility] Address [address] [place] [address] Phone Care Team Providers Care Compounding Assistant Name Role Phone Unavailable Primary Care [...] patient's age to complete this topic Insurance [employer] MEDICARE
--- OUTSIDE RECORDS SUMMARY | 2025-08-17 20:04 | XMS_ITS | Encounter Summary ---
Author Organization [facility] Address 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 Topic: Established Patient Care >> Jun 29, 2025 11:42 AM Asya Mckeon wrote: Is the patient established with a [facility] provider? Yes, select appropriate option in Discharge Facility SmartList Caller Name: Harjinder with [facility] Callback Number: [phone] Call Notes: Calling reporting pt will be discharging today 06/29 from [facility] hypertension urgency. Scheduled pt for first [...] st Contact Info) Description 12/05/2025 2:40 PM SALARY AND WAGE ADMINISTRATOR Office Visit [facility] [address] [address] Beverly Veronica MD [address] [address] documented as of this encounter Visit Diagnoses Not on filedocumented in this encounter Additional Health Concerns Assessment Noted Time PHQ-9 Depression Total Score: 3 05/29/20 25 3:06 PM CDT documented as of this encounter Care Teams Online Project Manager Relationship Specialty Start Date End Date Beverly Veronica MD [address] [place] [phone] PCP - General Family Practice 05/29/25 documented as of this encounter
--- OUTSIDE RECORDS SUMMARY | 2025-08-17 20:04 | XMS_ITS | Encounter Summary ---
Author Organization [facility] Address 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 Medication Refill Request Last Fill Date:08/03/25 Recent and Future Visits: Recent Visits Date Type Provider Dept 07/21/25 Office Visit Beverly Veronica MD [facility] 07/14/25 Office Visit Beverly Veronica MD [facility] 05/29/25 Office Visit Beverly Veronica MD [facility] Showing recent visits within past 540 days with a meds authorizing provider and meeting all other requirements Future Appointments Date Type Provider Dept 12/05/25 Appointment Beverly Veronica MD [facility] Showing future appointments within next 365 days with a meds authorizing provider and meeting all other requirements * Telephone Encounter - Leyla Young - 08/16/2025 2:56 PM CDT Copied from [facility] #[id number]. Topic: Medication Request >> Aug 16, 2025 2:54 PM Leyla Tabares wrote: Caller Name: Vance Sainz Callback Number: [phone] Medication (Ask patient/caregiver to spell if possible): oxyCODONE (ROXICODONE) 5 mg tablet Note: All medication prescriptions can be requested using one [facility] Preferred Pharmacy: [facility] [place] [address] [facility] [address] Hours: M-F [id number] Sat [phone] Sun closed Call Notes: Pt would like to know if he can have another week worth of medication. States he is still waiting to be seen at the pain management clinic. Pt is requesting a call back. Did caller contact the correct clinic for prescribing provider? Yes Ask caller if the refill is for a controlled medication. Is this for a controlled Medication? Yes Is there an encounter open? No documented in this encounter Plan of Treatment Upcoming Encounters Date Type Department Care Team (Late st Contact Info) Description 12/05/2025 2:40 PM AIR CONDITIONING UNIT ASSEMBLER Office Visit [address] [phone] Beverly Veronica MD [address] [phone] documented as of this encounter Visit Diagnoses Diagnosis Chronic neck pain Cervicalgia documented in this encounter Additional Health Concerns Assessment Noted Time PHQ-9 Depression Total Score: 3 05/29/20 25 3:06 PM CDT documented as of this encounter Care Teams Data Coordinator Relationship Specialty Start Date End Date Beverly Veronica MD [address] [place] [phone] PCP - General Family Practice 05/29/25 documented as of this encounter
--- OUTSIDE RECORDS SUMMARY | 2025-08-17 20:04 | XMS_ITS | Clinical Summary ---
Author Organization [facility] Address [address] [place] [address] Phone Care Team Providers Care Real Estate Coordinator Name Role Phone Beverly Veronica MD Primary Care Provider [phone] Allergies Active Allergy Reactions Criticality Noted Date [...] 30 Tablet 2 02/04/20 25 Active vit B,Y-AD-ryiy-se mishel-vit D3-E (RenaPlex-D) 800 mcg-12.5 mg -2,000 [...] 06/30/20 25 Active naloxone (NARCAN) 4 mg/spray [place], Non-Aerosol EMERGENCY USE ONLY: Administer 1 spray (4 mg) in one nostril one time. May repeat in alternating nostrils every 2-3 min until responsive or EMS arrives. 2 Each 3 07/21/20 25 Active oxyCODONE (ROXICODONE) 5 mg tabletIndicati ons:Chronic neck pain Take 1 Tablet (5 mg) by mouth every 8 hours as needed for Pain. Max Daily Amount: 15 mg 21 Tablet 08/17/20 25 Active HYDROcodone-ac etaminophen (NORCO) 5-325 mg tablet TAKE 1 TO 2 TABLETS ORALLY EVERY 6 HOURS 03/28/20 25 025 Discontinu ed(Alterna te therapy prescribed ) oxyCODONE (ROXICODONE) 5 mg tabletIndicati ons:Chronic neck pain Take 1 Tablet (5 mg) by mouth every 8 hours as needed for Pain. Max Daily Amount: 15 mg 21 Tablet 07/21/20 25 025 Discontinu ed(Reorder ) oxyCODONE (ROXICODONE) 5 mg tabletIndicati ons:Chronic neck pain Take 1 Tablet (5 mg) by mouth every 8 hours as needed for Pain. Max Daily Amount: 15 mg 21 Tablet 08/03/20 25 10/29/2 025 Discontinu ed(Reorder ) Active Problems Problem [...] Encounters Date Type Department Care Team Description 08/16/[address] [phone] Beverly Veronica MD Chronic neck pain 08/10/2025 12:20 AM CDT - 08/10/2025 11:59 PM CDT Hospital Encounter [facility] [address] [place] [address] Ambulance, [facility] Discharge Disposition: Short term [facility] 08/02/2025 Refill [facility] [address] [phone] Beverly Veronica MD Chronic neck pain 08/01/2025 External Device Data [facility] ABSTRACTION Provider, Abstract 07/25/2025 External Device Data [facility] ABSTRACTION Provider, Abstract 07/25/2025 External Device Data [facility] ABSTRACTION Provider, Abstract 07/21/2025 11:40 AM CDT Office Visit [facility] [address] [phone] Beverly Veronica MD Chronic neck pain (Primary Dx); Dependence on renal dialysis; Anemia in chronic kidney disease, on chronic dialysis (CMS/HCC) 07/20/2025 12:20 AM CDT - 07/20/2025 11:59 PM CDT Hospital Encounter [facility] [address] [phone] [facility] Discharge Disposition: Home or Self Care 07/19/2025 Orders Only [facility] [address] [place] [address] Provider, Abstract 07/14/2025 11:20 AM CDT Office Visit [facility] [address] [phone] Beverly Veronica MD Acute pulmonary edema (CMS/HCC) (Primary Dx); Abscess; ESRD (end stage renal disease) (CMS/HCC); Chronic neck pain; Refused influenza vaccine 07/10/2025 - 07/10/2025 11:59 PM CDT Hospital Encounter [facility] [address] [phone] [facility] Discharge Disposition: [facility] 07/08/2025 6:50 AM CDT - 07/08/2025 11:59 PM CDT Hospital Encounter [facility] [address] [phone] [facility] Discharge Disposition: [facility] 07/06/2025 1:50 PM CDT - 07/06/2025 11:59 PM CDT Hospital Encounter [facility] Emergency [facility] [address] [facility] [address] [place] [phone] Ambulance, [facility] Discharge Disposition: [facility] 07/04/2025 Orders Only [facility] [address] [place] [address] Provider, Abstract 07/03/2025 6:45 AM CDT - 07/03/2025 11:59 PM CDT Hospital Encounter [facility] Emergency [facility] [address] [facility] [address] [place] [phone] Ambulance, [facility] Discharge Disposition: [facility] 06/29/2025 Telephone [facility] [address] [phone] Beverly Veronica MD Information 06/27/2025 External Device Data [facility] ABSTRACTION Provider, Abstract 06/20/2025 External Device Data [facility] ABSTRACTION Provider, Abstract 06/20/2025 Results Follow-Up [facility] [address] [place] [address] Garry Randolph MD MRI CERVICAL WO CONTRAST 06/15/2025 11:29 AM CDT - 06/15/2025 11:59 PM CDT Hospital Encounter [facility] MRI [place] [address] [place] [address] Garry Randolph MD Discharge Disposition: Home or Self Care 05/30/2025 External Device Data ST[facility] ABSTRACTION Provider, Abstract 05/29/2025 2:40 PM CDT Office Visit [facility] [address] [phone] Beverly Veronica MD Abrasion, foot without infection (Primary Dx); Seizure disorder (CMS/HCC); Severe major depressive disorder (CMS/HCC); ESRD (end stage renal disease) ([facility]/HCC) 05/24/2025 External Device Data STL ABSTRACTION [...] PNEUM OCOCCAL CONJUGATE VACCINE 20-VALENT (PCV20), POLYSACCHARIDE VOH716 CONJUGATE, ADJUVANT 0.5 ML (PF) IM 12/14/2024 [...] on file Legal Sex Male 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 Gender Identity Not on file Sexual Orientation [...] st Contact Info) Description 12/05/2025 2:40 PM PSYCHIATRIC RN Office Visit [address] [phone] Beverly Veronica MD [address] [phone] Health Maintenance Due Date Last Done Comments HEPATITIS B VACCINES (1 of 1 - Risk Dialysis 4-dose series) 05/18/2002 05/18/2001, 2000, 2000, Additional history exists Medicare Ad[place]age ([place]) Preventative Visit/Annual Wellness Visit 10/19/2024 INFLUENZA VACCINE [...] Resu lt from Last 3 Months Insurance DUAL COMPLETE O [facility] [id number] RX [employer] RX Member Subscriber Plan / Payer (Ef fective 2025-Present) Name:Vance Sainz Relation to Subscriber:Self Name:Vance Sainz Subscriber ID:Not on file Payer ID:Not on file Group ID:[id number] Type:RX Medicare Part D Address: [address] Advance Directives For more information, please contact: [phone] * Full Code (Latest Code Status on File) Date Activated Date Inactivated Comments 01/31/2025 2:27 PM 02/03/2025 8:44 PM Care Teams Real Estate Coordinator Relationship Specialty Start Date End Date Beverly Veronica MD [address] [phone] PCP - General Family Practice 05/29/25
--- NOTE | 2025-08-17 20:20 | CTR_ITS ---
PROCEDURE INFORMATION: Exam: CT Chest Without Contrast; Diagnostic Exam date and time: 08/17/2025 8:36 PM Age: 25 years old Clinical indication: Other: Missed hd, seizures, concerns for pulm edema TECHNIQUE: Imaging protocol: Diagnostic computed tomography of the chest without contrast. Radiation optimization: All CT scans at this facility use at least one of these dose optimization techniques: automated exposure control; mA and/or kV adjustment per patient size (includes targeted exams where dose is matched to clinical indication); or iterative reconstruction. COMPARISON: CR (CHEST, ) 08/17/2025 8:23 PM RADIATION DOSE METRICS: Total DLP (mGy-cm): 483.9 FINDINGS: Lungs: Bilateral lung ground-glass opacity, or predominant centrally and inferiorly. Pleural spaces: Unremarkable. No pneumothorax. No pleural effusion. Heart: Mild cardiomegaly. No calcified coronary artery atherosclerosis. No large volume pericardial effusion. Lymph nodes: No mediastinal or hilar adenopathy. No axillary adenopathy. Vasculature: Unremarkable. No aortic aneurysm. Bones/joints: Unremarkable. No acute fracture. Soft tissues: Unremarkable. PROCEDURE INFORMATION: Exam: CT Abdomen And Pelvis Without Contrast Exam date and time: 08/17/2025 8:36 PM Age: 25 years old Clinical indication: Other: Missed hd, seizures, concerns for pulm edema TECHNIQUE: Imaging protocol: Computed tomography of the abdomen and pelvis without contrast. Radiation optimization: All CT scans at this facility use at least one of these dose optimization techniques: automated exposure control; mA and/or kV adjustment per patient size (includes targeted exams where dose is matched to clinical indication); or iterative reconstruction. COMPARISON: CT abdomen pelvis con [id number] 05/27/2024 5:18 PM RADIATION DOSE METRICS: Total DLP (mGy-cm): 483.9 FINDINGS: Liver: Normal. No mass. Gallbladder and biliary ducts: Normal. No calcified stones. No ductal dilation. Pancreas: Normal. No ductal dilation. Spleen: Normal. No splenomegaly. Adrenal glands: Normal. No mass. Kidneys and ureters: Severe atrophy of the bilateral [place] kidneys calcified renal artery atherosclerosis, unchanged. No hydronephrosis or urolithiasis. Right lower quadrant transplant kidney. Stomach and bowel: Unremarkable. No obstruction. No mucosal thickening. Appendix: No evidence of appendicitis. Intraperitoneal space: No free air. Small volume free fluid within the pelvis. Vasculature: See Kidneys and ureters finding. Lymph nodes: Unremarkable. No enlarged lymph nodes. Urinary bladder: Unremarkable as visualized. Reproductive: Unremarkable as visualized. Bones/joints: Unremarkable. No acute fracture. Soft tissues: Unremarkable. CT/[place] [id number] IMPRESSION: CHF with pulmonary edema. IMPRESSION: Small volume free fluid within the pelvis. No identified acute pathology within the abdomen or pelvis. Limited assessment of the right lower quadrant transplant kidney by noncontrast exam.
--- NOTE | 2025-08-17 20:20 | CTR_ITS ---
PROCEDURE INFORMATION: Exam: CT Head Without Contrast Exam date and time: 08/17/2025 8:33 PM Age: 25 years old Clinical indication: Other: Missed hd, seizures, concerns for pulm edema/refract seizures; Additional info: 4x missed hd, refract seizures TECHNIQUE: Imaging protocol: Computed tomography of the head without contrast. Radiation optimization: All CT scans at this facility use at least one of these dose optimization techniques: automated exposure control; mA and/or kV adjustment per patient size (includes targeted exams where dose is matched to clinical indication); or iterative reconstruction. COMPARISON: CT head wo con* [id number] 06/03/2025 7:03 PM RADIATION DOSE METRICS: Total DLP (mGy-cm): 791.04 FINDINGS: Brain: See Cerebral ventricles finding. Cerebral ventricles: Mild involutional changes of the ventricles and sulci. Paranasal sinuses: Visualized sinuses are unremarkable. No fluid levels. Mastoid air cells: Visualized mastoid air cells are well aerated. Bones: Unremarkable. No acute fracture. Soft tissues: Unremarkable. CT/CT head wo con* [id number] IMPRESSION: No acute intracranial abnormality.
--- NOTE | 2025-08-17 20:22 | XRR_ITS ---
PROCEDURE INFORMATION: Exam: XR Chest Exam date and time: 08/17/2025 8:23 PM Age: 25 years old Clinical indication: Other: Missed hd, seizures, concerns for pulm edema TECHNIQUE: Imaging protocol: Radiologic exam of the chest. Views: 1 view. COMPARISON: CR XR chest 1V portable [id number] 07/17/2025 2:41 PM FINDINGS: Lungs: Faint bilateral lung interstitial coarsening, increased in conspicuity relative to the comparison exam from 07/17/2025. No focal consolidation. Pleural spaces: Unremarkable. No pleural effusion. No pneumothorax. Heart/Mediastinum: Unremarkable. No cardiomegaly. Bones/joints: Unremarkable. XR/XR chest 1V portable [id number] IMPRESSION: CHF with developing pulmonary edema.
[2025-08-17] MEDS: LORazepam 1 MG/0.5 ML injection 4 MG IVP (20:34)
--- NOTE | 2025-08-17 20:48 | ECG_ITS ---
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 Measurements Intervals [place] Rate: 78 P: 85 MI: 150 QRS: 15 QRSD: 125 T: 69 QT: 416 QTc: 477 Interpretive Statements SINUS RHYTHM POSSIBLE LEFT ATRIAL ENLARGEMENT [-0.1mV P-WAVE IN V1/V2] POSSIBLE RIGHT VENTRICULAR CONDUCTION DELAY [RSR (QR) IN V1/V2] TALL T-WAVES, SUGGESTS HYPERKALEMIA Compared to ECG 08/10/2025 05:20:58 Sinus bradycardia no longer present Prolonged QT interval no longer present PEAKED T WAVES ARE NEW Electronically Signed On 08-19-2025 20:52:46 CDT by Orlando Brown M.D. [email or web address]
--- NOTE | 2025-08-17 20:48 | ED_ITS ---
HPI - Seizure 2 General: Chief Complaint: Seizure Stated Complaint: AKOSUA BHANDARI Time Seen by Provider: 08/17/25 20:20 History of Present Illness: HPI Narrative: Patient is a 25-year-old male with past medical history of ESRD on HD who presents to the ED with a seizure. Apparently has missed his last 4 dialysis sessions, EMS was initially called for headache, was originally in the waiting room and then slumped down and reportedly had a seizure. Patient's distress on arrival limiting ability to obtain history. Related Data Home Medications ?Medication ?Instructions ?Recorded ?Confirmed hydralazine 100 mg tablet 100 mg PO TID 04/05/2508/10 sumatriptan 20 mg/actuation nasal 20 mg intranasal Q12 H PRN Migraine 04/05/25 08/10/25 spray Headache fluoxetine 10 mg capsule 10 mg PO DAILY 06/28/2507/20 prednisone 5 mg tablet 5 mg PO DAILY 07/17/2508/10 sevelamer carbonate 800 mg tablet See Rx Instructions .Route .COMPLEX 07/17/25 08/10/25 Previous Rx's ?Medication ?Instructions ?Recorded clonazepam 1 mg tablet (Klonopin) 1 mg PO BID PRN anxi ety #10 tabs 01/09/25 acetaminophen 325 mg tablet 650 mg (2 x 325 mg) PO Q6H PRN 06/29/25 Mild/Mod Pain Or Temp >/= 101 #30 tabs clonidine HCl 0.1 mg tablet 0.2 mg (2 x 0.1 mg) PO TID #90 tabs 06/29/25 divalproex 500 mg tablet,delayed 500 mg PO BID #60 tab s 06/29/25 release methocarbamol 750 mg tablet 750 mg PO Q8H PRN muscle s pasm #30 07/08/25 tabs sodium zirconium cyclosilicate 5 5 g PO DAILY #11 ea 0 07/12/25 gram oral powder packet (Lokelma) labetalol 100 mg tablet 300 mg (3 x 100 mg) PO BID 3 0 days 08/11/25 #180 tabs losartan 50 mg tablet 100 mg (2 x 50 mg) PO DAILY 30 08/11/25 days #120 tabs nifedipine 90 mg tablet,extended 90 mg PO DAILY 30 day s #30 tabs 08/11/25 release Allergies Allergy/AdvReac Type Severity Reaction Status Date / Time NSAIDS (Non-Steroidal Allergy Severe unable to Verified 06/27/25 20:41 Anti-Inflamma take due to kidney disease sertraline (From Zoloft) Allergy Unknown Verified 06/27/25 20:41 Review of Systems 2 General: Reports: ROS unobtainable due to medical condition PFSH ED 2 PFSH: Medical History (Updated 08/18/25 @ 00:58 by Parag Mcgregor DO) Anemia Renal transplant failure and rejection Kidney transplant failure Noncompliance with renal dialysis Adrenal insufficiency Hypoglycemia CKD (chronic kidney disease) stage V requiring chronic dialysis Generalized anxiety disorder Other stimulant dependence, in remission Problems related to lack of adequate sleep Substance abuse Depression Anxiety Surgical History Kidney transplant recipient Social History Smoking and tobacco/nicotine status: tobacco/nicotine user, details unknown e- cigarettes E-Cigarette Details: vaporizer device and with nicotine E-cig/vape details: 6 mg and smokeless tobacco Smokeless tobacco user: chewing tobacco Smokeless tobacco details: 1 can/3 days. Quit status (tobacco/nicotine): has tried quititng Number of times tried to quit tobacco: 4 Second hand smoke exposure: No Alcohol intake: never Substance/Drug Use: current Substance/Drug use frequency: Special occassions/opportunity only Additional social history: Patient uses marijuana 1 g every other day he has remote history of some meth use. He reports chewing tobacco and using nicotine pouches but denies smoking cigarettes. He denies suicidal ideation. Patient is companied by his girlfriend and his CODE STATUS is always been full code confirmed with the patient on 06/05/2025 that he wants full CODE STATUS by Daron Ayala MD Patient admits to THC use Physical Exam 2 Narrative: EXAM NARRATIVE: Patient chronically ill-appearing, seizing on arrival, foaming at mouth, no corneal reflex, very hypertensive with systolics in the 230 region, fistula in place to right upper extremity. No obvious signs of trauma, abdomen with previous surgical scars, soft and nondistended, no leg swelling, tachypneic on room air but maintaining saturations. Course 2 Vital Signs: Vital signs: Vital Signs Pulse Rate 87 08/17/25 20:28 Respiratory Rate 16 08/17/25 21:43 Blood Pressure 234/156 08/17/25 20:28 Pulse Oximetry 95 08/17/25 20:28 Oxygen Delivery Me thod Room Air 08/17/25 20:28 Fraction of Inspir ed Oxygen 50 08/17/25 21:43 MDM - Seizure MDM Narrative Medical decision making narrative: -ddx: Seizure, cerebral edema, electrolyte abnormality, fluid overload, epilepsy, head trauma - Patient with seeming true seizure on my initial evaluation, no corneal reflex, no motor tone, drop arm test positive. Apparently had a seizure for EMS previous, questionably return to baseline, will be aggressive and give 4 mg of Ativan, Keppra load as well and have a low threshold for intubation, will evaluate with keita traumatic imaging because of questionable nature of how he got here and what happened prior, evaluate with labs and need for emergent dialysis in setting of his previous missed sessions. - Patient with seizure abated after 4 of Ativan, was postictal for bed and then started seizing again, 4 more milligrams of Ativan was given, with stoppage of GTC movement but still was having nystagmus, no corneal reflex, was then Keppra loaded and decision was made to intubate. Used induction with propofol to help with the seizure-like activity, paralyzed with laurie since already has hyperkalemia, intubated without issue. At 1 point a few minutes after, had unsustained V. tach, he had gotten 1 dose of calcium, this was repeated and he was given the remainder of hyperkalemia treatment. He was put on a propofol infusion post intubation for sedation. Started to wake up shortly after that, was given a dose of ketamine and then placed on a fentanyl drip. Multiple discussions were had with hospitalist, neurologist, collections clerk if he would require transfer to an outside hospital, I advocated that he was not stable for that and the thing that would correct his life-threatening condition the most would be getting dialysis and believe that to be the cause of his seizures as well. Nephrology agreed and the dialysis nurse was due to come in to start therapy, spoke with Dr. Wood of neurology whom agreement that this seemed metabolic in nature and not true epilepsy and any degree of his seizure-like activity beyond that was superseded by his need for HD and so then he was admitted to the ICU here for emergent HD and management of all his other abnormalities, immediately stabilized but still critical, no more observed seizure-like activity in ED. Lab Data 08/17/25 21:14 08/17/25 21:14 Labs: Radiology Impressions Chest/Abdomen/Pelvis CT 08/17/25 20:20 IMPRESSION: CHF with pulmonary edema. IMPRESSION: Small volume free fluid within the pelvis. No identified acute pathology within the abdomen or pelvis. Limited assessment of the right lower quadrant transplant kidney by noncontrast exam. Head CT 08/17/25 20:20 IMPRESSION: No acute intracranial abnormality. Laboratory Results WBC 9.81 10^3/uL (3.29-11.43) 08/17/25 21:14 RBC 3.05 10^6/uL (3.85-5.65) L 08/17/25 21:14 Hgb 9.20 g/dL (11.27-16.99) L 08/17/25 21:14 Hct 31.0 % (37-53) L 08/17/25 21:14 MCV 101.6 fl (82-101) H 08/17/25 21:14 MCH 30.2 pg (27-33) 08/17/25 21:14 MCHC 29.7 g/dL (30-55) L 08/17/25 21:14 RDW 15.9 % (12.1-15.1) H 08/17/25 21:14 Plt Count 172 10^3/cmm (157-399) 08/17/25 21:14 MPV 11.0 fL (7.4-10.4) H 08/17/25 21:14 Neut % (Auto) 78.9 % 08/17/25 21:14 Lymph % (Auto) 8.7 % 08/17/25 21:14 [place] % (Auto) 5.3 % 08/17/25 21:14 Eos % (Auto) 5.3 % 08/17/25 21:14 Baso % (Auto) 1.1 % 08/17/25 21:14 Neut # (Auto) 7.74 10^3/uL (1.8-7.7) H 08/17/25 21:14 Lymph # (Auto) 0.9 10^3/uL (0.8-4.8) 08/17/25 21:14 [place] # (Auto) 0.5 10^3/uL (0.2-0.9) 08/17/25 21:14 Eos # (Auto) 0.5 10^3/uL (0.0-0.8) 08/17/25 21:14 Baso # (Auto) 0.1 10^3/uL (0.0-0.1) 08/17/25 21:14 Nucleated RBC % (auto) 0 % 08/17/25 21:14 Nucleated RBCs # 0.0 /100WBC 08/17/25 21:14 Specimen Type Venous 08/17/25 21:14 Paul Test Pos 08/17/25 21:14 VBG pH 7.07 (7.32-7.42) L* 08/17/25 21:14 VBG pCO2 44.7 mmHg (41-51) 08/17/25 21:14 VBG pO2 77.5 mmHg (25-40) H 08/17/25 21:14 VBG HCO3 13.0 mmol/L (24-28) L 08/17/25 21:14 VBG Base Excess -16.3 mmol/L (-3.0-3.0) L 08/17/25 21:14 VBG Hematocrit 30.0 % (42-52) L 08/17/25 21:14 O2 Delivery Device None 08/17/25 21:14 FiO2 21.0 % 08/17/25 21:14 Director Pharmacology ID [email or web address] 08/17/25 21:14 Sodium 142 mmol/L (136-145) 08/17/25 21:14 Potassium 8.7 mmol/L (3.5-5.1) H* 08/17/25 21:14 Chloride 95 mmol/L (98-107) L 08/17/25 21:14 Carbon Dioxide 12 mmol/L (22-29) L 08/17/25 21:14 Anion Gap 43.7 (5-19) H 08/17/25 21:14 BUN 115 mg/dL (6-20) H* D 08/17/25 21:14 Creatinine 16.7 mg/dL (0.7-1.2) H* 08/17/25 21:14 GFR Calculation 3.5 mL/min (90-130) L 08/17/25 21:14 Glucose 86 mg/dL (65-115) 08/17/25 21:14 Calculated Osmolality 330 mOsm/kg (285-295) H 08/17/25 21:14 Lactic Acid 11.5 mmol/L (0.5-2.2) H* 08/17/25 21:14 Calcium 9.6 mg/dL (8.5-10.5) 08/17/25 21:14 Phosphorus 8.7 mg/dL (2.5-4.5) H* 08/17/25 21:14 Magnesium 3.5 mg/dL (1.7-2.3) H 08/17/25 21:14 Ammonia 34 umol/L (16-60) 08/17/25 21:14 Creatine Kinase 137 U/L (39-308) 08/17/25 21:14 Troponin T Baseline 60 ng/L (0-15) H 08/17/25 21:14 C-React Prot High Sens 0.840 mg/dL (0.0-0.3) H 08/17/25 21:14 NT-Pro-B Natriuret Pep > 33114 pg/mL (0-125) H 08/17/25 21:14 Procalcitonin 0.69 ng/mL (0-0.5) H 08/17/25 21:14 Ethyl Alcohol < 10 mg/dL (0-10) 08/17/25 21:14 All radiology interpretation(s) finalized by discharge EKG Data EKG 1: Interpretation: Normal sinus rhythm with LVH, peaked T waves, no interval prolongation, no ST elevation or depression Critical Care Time 2 Critical Care Time: Critical Care Time: Yes Total Critical Care Time: 103 Attestation: see MDM for details on status epilepticus requiring intubation, end-stage renal disease with significant derangements Discharge Plan Discharge Patient Disposition: Admitted As Inpatient Admit Provider: Mercedez Cordero Clinical Impression: Missed dialysis, Hyperkalemia, Generalized seizure Condition: Stable Coding Level of Care Code ED Prism Inspector for Diannag Lynsey
[2025-08-17] MEDS: rocuronium 10 mg/mL INJ 5mL 50 MG IVP (21:14)
[2025-08-17] MEDS: propofol 10 mg/mL SDV 20 mL 50 MG IVP (21:14)
[2025-08-17 21:20] LABS: Hematocrit 31.0 % (37-53); Hemoglobin 9.20 g/dL (11.27-16.99); Mean Corpuscular HGB Conc 29.7 g/dL (30-55); Mean Corpuscular Hemoglobin 30.2 pg (27-33); Mean Corpuscular Volume 101.6 fl (82-101); Nucleated Red Blood Cells % 0 %; Platelet Count 172 10^3/cmm (157-399); Red Blood Count 3.05 10^6/uL (3.85-5.65); White Blood Count 9.81 10^3/uL (3.29-11.43)
[2025-08-17 21:38] LABS: Troponin(5th) Baseline 60 ng/L (0-15)
[2025-08-17 21:39] LABS: Lactic Sepsis W/Reflex 11.5 mmol/L (0.5-2.2)
[2025-08-17 21:40] LABS: Ammonia 34 umol/L (16-60)
[2025-08-17 21:45] LABS: Base Excess VBG -16.3 mmol/L (-3.0-3.0); Blood Gas Allen Test Pos; Blood Gas Operator Identificat gerca; Blood Gas Sample Type Venous; HCO3 VBG 13.0 mmol/L (24-28); PCO2 VBG 44.7 mmHg (41-51); PO2 VBG 77.5 mmHg (25-40); Venous Blood Gas Hematocrit 30.0 % (42-52)
[2025-08-17] MEDS: propofol 1,000 MG/100 ML INJ 1.62 MG IV (21:45)
[2025-08-17 21:46] LABS: pH VBG 7.07 (7.32-7.42)
[2025-08-17 21:47] LABS: Procalcitonin 0.69 ng/mL (0-0.5)
[2025-08-17] MEDS: calcium gluconate 0.9% NaCL 1 GM/50 ML PREMIX IV (21:52)
[2025-08-17 21:59] LABS: CRP High Sensitivity Cardiac 0.840 mg/dL (0.0-0.3); Calcium 9.6 mg/dL (8.5-10.5); Carbon Dioxide 12 mmol/L (22-29); Chloride 95 mmol/L (98-107); Glucose 86 mg/dL (65-115); Magnesium 3.5 mg/dL (1.7-2.3); Sodium 142 mmol/L (136-145)
[2025-08-17] MEDS: insulin regular-human 100 units/1 mL 5 UNIT IVP (22:00)
[2025-08-17 22:08] LABS: Alcohol Level < 10 mg/dL (0-10); Osmolality Calculated 330 mOsm/kg (285-295)
[2025-08-17 22:11] LABS: NT Pro B Type Natriuretic Pept > 70000 pg/mL (0-125)
[2025-08-17 22:12] LABS: Anion Gap 43.7 (5-19)
[2025-08-17 22:13] LABS: Blood Urea Nitrogen 115 mg/dL (6-20); Potassium 8.7 mmol/L (3.5-5.1)
[2025-08-17] MEDS: levETIRAcetam 2,000 MG/200 ML PREMIX 400 MG IV (22:30)
--- NOTE | 2025-08-17 22:33 | XRR_ITS ---
PROCEDURE INFORMATION: Exam: XR Chest Exam date and time: 08/17/2025 9:45 PM Age: 25 years old Clinical indication: Device placement; Ett placement (vent status); Check S/P ett, og, and RT femoral central line placement; Additional info: Femoral central line and og tube placement TECHNIQUE: Imaging protocol: Radiologic exam of the chest. Views: 1 view. COMPARISON: [place] [id number] 08/17/2025 8:36 PM FINDINGS: Tubes, catheters and devices: ETT 5.5 cm above josias. NG tube tip is in the region of the gastric bubble. NG tube sideholes in the region of the esophagogastric junction. Lungs: Bilateral pulmonary infiltrates again noted. Pleural spaces: Unremarkable. No pleural effusion. No pneumothorax. Heart/Mediastinum: Unremarkable. No cardiomegaly. Bones/joints: Unremarkable. XR/XR chest 1V portable [id number] IMPRESSION: ETT 5.5 cm above josias. NG tube tip is in the region of the gastric bubble. NG tube sidehole in the region of the esophagogastric junction.
[2025-08-17] MEDS: ketamine 100 mg/mL Inj 5 mL 60 MG IVP (22:55)
[2025-08-17 23:05] LABS: Reflex Lactate Order REFLEX LACTIC ORDERD
--- NOTE | 2025-08-17 23:15 | PC.NURSE ---
counted patient's oxycodone 15 mg with TR, HS. 21 counted. 21 stated to be in the bottle. placed in bag with patient label and taped shut with tamper tape. placed in HS pyxis.
--- NOTE | 2025-08-17 23:16 | PC.NURSE ---
Addendum entered by Malathi Hagan RN 08/17/25 23:57: this is the same single amp of dextrose documented in an additional nursing note by MARLENE, RN. Original Note: 1 amp of dextrose given from crash cart at 2200.
[2025-08-17] MEDS: fentaNYL 1,000 MCG/100 ML BAG 5 MCG IV (23:32)
--- NOTE | 2025-08-17 23:50 | PC.NURSE ---
Following medications given when attempting to intubate pt and get central line access. 2201 sodium bicarb 2204 10% dextrose 250 ml bolus 2205 5 units of insulin
[2025-08-18] VITALS (109 sets, daily range): BP systolic 124–226; BP diastolic 67–151; PULSE 68–104; RESP 14–20; TEMP 35.4–39.3; O2SAT 87–100; BMI 21.4
[2025-08-18 00:12] LABS: Troponin 5 2HR 64.69 ng/L (0-15); Troponin 5 2HR Delta 4.69 ABS# (0-10)
[2025-08-18 00:13] LABS: Lactic Acid level (Lactate) 3.7 mmol/L (0.5-2.2)
--- NOTE | 2025-08-18 00:29 | P.HP_ITS ---
Providers/Chief Complaint 2 Admitting Physician: MERCEDEZ CORDERO--DO--patient admitted after 12 midnight Primary Care Provider: Beverly Veronica MD Chief Complaint: BHANDARI, ABD History of Present Illness Vance Sainz is a 25 year old male with medical history significant for medical noncompliance. Patient is noncompliant with chronic hemodialysis and also noncompliance with his medication I had seen and evaluated this patient a little over a week ago where he wanted to leave the emergency room with a blood pressure well above 250 systolic and 200 diastolic and also volume overloaded and in need of hemodialysis at the time. I pleaded and the patient agreed to stay. Patient was treated and discharged that hospitalization and since then he has been at least a week patient never went to follow-up or to have any ongoing hemodialysis. Patient is with polysubstance abuse especially the methamphetamine. Today patient felt a headache and called the EMS by the time the patient was attended to by the EMS patient was already seizing. The seizure resolved and in the emergency room patient was lucid and then patient had seizure after seizure for a total of 4 seizures in the emergency room not actually getting to a baseline and then there will be another seizure. Patient had status epilepticus which that was the question I had asked. That being said patient will need continuous EEG. I called Dr. Wood and discussed this with her and she related that we cannot do continuous EEG here because we do not have that capability and we do not have it. But answered my question. Another issue is patient seizure most likely is due to metabolic derangement along with polysubstance drug in the system. Patient is on propofol and that we will do to arrest further seizures and this can be managed along with Ativan. At my initial discussion with the ED doc regarding this patient, he had not spoken to construction secretary and my thought is nephrology on board immediately for emergent hemodialysis before sending the patient to ICU. Nephrology on the way and I am at this time writing orders for this patient to go to ICU for emergent care and treatment patient is on propofol and Versed for tube tolerance this will help with the seizures. Patient had undergone emergent hemodialysis and got 3 L taken off. Review of Systems 2 Narrative: System review is very limited patient is intubated sedated cannot participate Medications/Allergies Home Medications ?Medication ?Instructions ?Recorded ?Confirmed ?Last Taken ?Type clonazepam 1 mg tablet (Klonopin) 1 mg PO BID PRN anxi ety #10 tabs 01/09/25 08/10/25 02/12/25 09:00 Rx hydralazine 100 mg tablet 100 mg PO TID 04/05/2508/10 Unknown History sumatriptan 20 mg/actuation nasal 20 mg intranasal Q12 H PRN Migraine 04/05/25 08/10/25 Unknown History spray Headache fluoxetine 10 mg capsule 10 mg PO DAILY 06/28/25 10/2 01/1007/09/25 History acetaminophen 325 mg tablet 650 mg (2 x 325 mg) PO Q6H PRN 06/29/25 08/10/25 07/09/25 Rx Mild/Mod Pain Or Temp >/= 101 #30 tabs clonidine HCl 0.1 mg tablet 0.2 mg (2 x 0.1 mg) PO TID #90 tabs 06/29/25 08/10/25 07/09/25 Rx divalproex 500 mg tablet,delayed 500 mg PO BID #60 tab s 06/29/25 08/10/25 07/09/25 Rx release methocarbamol 750 mg tablet 750 mg PO Q8H PRN muscle s pasm #30 07/08/25 08/10/25 07/09/25 Rx tabs sodium zirconium cyclosilicate 5 5 g PO DAILY #11 ea 0 07/12/25 08/10/25 Unknown Rx gram oral powder packet (Lokelma) prednisone 5 mg tablet 5 mg PO DAILY 07/17/2508/10 Unknown History sevelamer carbonate 800 mg tablet See Rx Instructions .Route .COMPLEX 07/17/25 08/10/25 Unknown History labetalol 100 mg tablet 300 mg (3 x 100 mg) PO BID 3 0 days 08/11/25 Unknown Rx #180 tabs losartan 50 mg tablet 100 mg (2 x 50 mg) PO DAILY 30 08/11/25 Unknown Rx days #120 tabs nifedipine 90 mg tablet,extended 90 mg PO DAILY 30 day s #30 tabs 08/11/25 Unknown Rx release Allergies Allergy/AdvReac Type Severity Reaction Status Date / Time NSAIDS (Non-Steroidal Allergy Severe unable to Verified 06/27/25 20:41 Anti-Inflamma take due to kidney disease sertraline (From Zoloft) Allergy Unknown Verified 09/09/25 20:41 PFSH Acute 2 PFSH: Medical History Anemia Renal transplant failure and rejection Kidney transplant failure Noncompliance with renal dialysis Adrenal insufficiency Hypoglycemia CKD (chronic kidney disease) stage V requiring chronic dialysis Generalized anxiety disorder Other stimulant dependence, in remission Problems related to lack of adequate sleep Substance abuse Depression Anxiety Surgical History Kidney transplant recipient Social History Smoking and tobacco/nicotine status: tobacco/nicotine user, details unknown e- cigarettes E-Cigarette Details: vaporizer device and with nicotine E-cig/vape details: 6 mg and smokeless tobacco Smokeless tobacco user: chewing tobacco Smokeless tobacco details: 1 can/3 days. Quit status (tobacco/nicotine): has tried quititng Number of times tried to quit tobacco: 4 Second hand smoke exposure: No Alcohol intake: never Substance/Drug Use: current Substance/Drug use frequency: Special occassions/opportunity only Additional social history: Patient uses marijuana 1 g every other day he has remote history of some meth use. He reports chewing tobacco and using nicotine pouches but denies smoking cigarettes. He denies suicidal ideation. Patient is companied by his girlfriend and his CODE STATUS is always been full code confirmed with the patient on 06/05/2025 that he wants full CODE STATUS by Daron Ayala MD Patient admits to THC use Vitals/I&O/Wt Last Vital Signs Pulse 71 08/18/25 00:15 Resp 16 08/17/25 21:43 BP 219/148 08/18/25 00:15 Pulse Ox 100 08/18/25 00:15 O2 Del Method Mechanical Ventilation 08/18/25 00:15 FiO2 50 08/17/25 21:43 08/17/25 08/17/25 08/18/25 14:59 22:59 06:59 Intake Total 59.045 / 59.045 210.395 / 269.440 Balance 59.045 / 59.045 210.395 / 269.440 Weight last 48 hrs Weight 54 kg Physical Exam 2 Narrative: Generally patient is intubated sedated with recurrent seizures Versed had been added to propofol and fentanyl. HEENT normocephalic/atraumatic neck neck is supple cardiovascular heart rate is regular lungs are clear abdomen soft nontender nondistended unremarkable extremities are intact no edema has good pulses neurology has no focality lab studies lab studies reviewed and noted. Data 08/17/25 21:14 08/18/25 06:08 A&P Assessment and plan 1. Acute hyperkalemia: 2. Missed dialysis: 3. Malignant hypertension: 4. Congestive heart failure: 5. Status epilepticus: 6. Bilateral headaches: 7. Hyperkalemia: Plan: Status epilepticus - Patient on Versed drip as patient had continued with seizure will follow through with [facility] - No continuous EEG in this case, case fully discussed with the neurology Dr. Wood - Propofol and Versed to have the calming effect and as patient undergoes acute hemodialysis Toxins and undesirable metabolites will be cleared from the system as this is leading to patient's seizure Chronic end-stage renal disease on chronic hemodialysis - Noncompliance is a big issue - Patient is not compliant Rolph to all medical care not going to hemodialysis and not taking medications are not managing the blood pressures - Patient is status post hemodialysis here in the ICU and 3 L of fluid taken off. - Patient to undergo acute hemodialysis to help patient seizure activities to optimize Malignant hypertension - Patient systolic blood pressure in the 200s over 140s to 150s - IV hydralazine and oral hydralazine in place. Polysubstance abuse and use with methamphetamine and marijuana - This adds to undesirable metabolites along with the toxin from lack of dialysis - Patient needs serious counseling once extubated and able to mentate GI and DVT prophylaxis in place PDMP PDMP Reviewed: Last Reviewed 08/18/25 06:04 by Mercedez Cordero MD Attestations 2 Medical Necessity Statement*: Patient with recurrent seizures and not even coming to the alertness only to go through another 1 in series in the ED and still continues seizure in ICU with volume overload and renal failure requiring instant hemodialysis. Coding Level of Care Code 41071 Diagnoses Acute hyperkalemia E87.5 Missed dialysis Malignant hypertension I10 Congestive heart failure I50.9 Status epilepticus G40.901 Bilateral headaches R51.9 Hyperkalemia E87.5 Time Spent (min) 70
[2025-08-18] MEDS: hyDRALAzine 20 mg/mL INJ 1 mL 5 MG IVP ×2 (01:15→05:16)
[2025-08-18] MEDS: LORazepam 2 mg/mL INJ 1 mL IV (01:38)
[2025-08-18] MEDS: pantoprazole 40 mg SDV IVP (01:45)
[2025-08-18] MEDS: heparin 5,000 unit/mL INJ 1 mL 5000 UNIT SUBCUT ×2 (01:46→12:43)
[2025-08-18] MEDS: propofol 1,000 MG/100 ML INJ 24.3 MG IV (01:46)
[2025-08-18] MEDS: midazolam hcl 100 MG/100 ML BAG IV (03:01)
[2025-08-18 04:59] LABS: ABG PCO2 45.5 mmHg (35-45); ABG PH Result 7.39 (7.35-7.45); Alveolar-Arterial Oxygen Gradi 7.2 mmHg (5-10); Arterial Blood Gas Hematocrit 37.7 % (42-52); Blood Gas Allen Test Pos; Blood Gas Operator Identificat JDB; Blood Gas Sample Site Radial, left; Blood Gas Sample Type Arterial; Blood Gas Tidal Volume 0.37; Carboxyhemoglobin 0.8 %THgb (0.4-20.1); Glucose Level-ABG 128.0 mg/dL (70-115); HCO3 ABG 27.7 mmol/L (22-26); Ionized Calcium Level - ABG 1.2 mmol/L (1.1-1.4); Methemoglobin 1.3 % (0.4-1.5); Oxygen Saturation ABG > 99.1; PEEP 5.0 cmH20; PO2 ABG 171.0 mmHg (80.0-100.0); PO2 FiO2 Ratio Arterial Blood 427; Potassium Level - ABG 3.4 mmol/L (3.5-5.0); Sodium Level - ABG 142.0 mmol/L (131-143)
[2025-08-18] MEDS: fentaNYL 1,000 MCG/100 ML BAG 12.5 MCG IV (05:55)
--- NOTE | 2025-08-18 05:58 | P.CONIM_ITS ---
Providers/Reason For Consult 2 Consulting Physician/Specialty*: [facility] /Nephrology Reason for Consult*: ESRD Attending Physician: Mercedez Cordero MD Primary Care Provider: Beverly Veronica MD History of Present Illness History of Present Illness Vance Sainz is a 25 year old male With past medical history significant for multiple admissions to the hospital due to noncompliance with hemodialysis last discharged from the hospital on 08/11/2025. He did not get dialysis since discharge. Patient had called EMS due to severe headache but after that he was going to seizure by the EMS and while in the ER patient has repeat seizures. No prior history of seizures noted. Patient was intubated in the emergency department, and lab data, was significant for potassium of 8.7, CO2 was 12 BUN was 115 and creatinine was 16.7. Nephrology was consulted and planned for emergent hemodialysis. Review of Systems 2 Narrative: Unable to obtain from patient Medications/Allergies Home Medications ?Medication ?Instructions ?Recorded ?Confirmed ?Last Taken ?Type clonazepam 1 mg tablet (Klonopin) 1 mg PO BID PRN anxi ety #10 tabs 01/09/25 08/18/25 02/12/25 09:00 Rx hydralazine 100 mg tablet 100 mg PO TID 04/05/2508/18 Unknown History sumatriptan 20 mg/actuation nasal 20 mg intranasal Q12 H PRN Migraine 04/05/25 08/18/25 Unknown History spray Headache fluoxetine 10 mg capsule 10 mg PO DAILY 06/28/25 10/11/1207/09/25 History acetaminophen 325 mg tablet 650 mg (2 x 325 mg) PO Q6H PRN 06/29/25 08/18/25 07/09/25 Rx Mild/Mod Pain Or Temp >/= 101 #30 tabs clonidine HCl 0.1 mg tablet 0.2 mg (2 x 0.1 mg) PO TID #90 tabs 06/29/25 08/18/25 07/09/25 Rx divalproex 500 mg tablet,delayed 500 mg PO BID #60 tab s 06/29/25 08/18/25 07/09/25 Rx release methocarbamol 750 mg tablet 750 mg PO Q8H PRN muscle s pasm #30 07/08/25 08/18/25 07/09/25 Rx tabs sodium zirconium cyclosilicate 5 5 g PO DAILY #11 ea 0 07/12/25 08/18/25 Unknown Rx gram oral powder packet (Lokelma) prednisone 5 mg tablet 5 mg PO DAILY 07/17/2508/18 Unknown History sevelamer carbonate 800 mg tablet See Rx Instructions .Route .COMPLEX 07/17/25 08/18/25 Unknown History labetalol 100 mg tablet 300 mg (3 x 100 mg) PO BID 3 0 days 08/11/25 08/18/25 Unknown Rx #180 tabs losartan 50 mg tablet 100 mg (2 x 50 mg) PO DAILY 30 08/11/25 08/18/25 Unknown Rx days #120 tabs nifedipine 90 mg tablet,extended 90 mg PO DAILY 30 day s #30 tabs 08/11/25 08/18/25 Unknown Rx release Allergies Allergy/AdvReac Type Severity Reaction Status Date / Time NSAIDS (Non-Steroidal Allergy Severe unable to Verified 06/27/25 20:41 Anti-Inflamma take due to kidney disease sertraline (From Zoloft) Allergy Unknown Verified 06/27/25 20:41 Current Medications Generic Name Dose Route Start Last Admin Trade Name Freq PRN Reason Stop Dose Admin Docusate Sodium 100 mg 08/18/25 05:00 08/18/25 05:41 Docusate Sodium 100 Mg Capsule PO 100 mg BID OMAR Administration Heparin Sodium (Porcine) 5,000 unit 08/18/25 00:30 08/18/25 01:46 Heparin 5,000 Unit/Ml Inj 1 Ml SUBCUT 5,000 unit Q12H OMAR Administration Hydralazine HCl 100 mg 08/18/25 06:00 08/18/25 05:41 Hydralazine 50 Mg Tablet OG-TUBE 100 mg TID OMAR Administration Dextrose 250 mls @ 1,000 mls/hr 08/17/25 22:02 08/17/25 23:33 D10w IV 1,000 mls/hr PRN PRN Administration HYPOGLYCEMIA Fentanyl 1,000 mcg in 100 mls @ 0 mls/hr 08/17/25 23:00 08/18/25 05:55 Sublimaze IV 125 mcg/hr .Q0M OMAR 12.5 mls/hr Protocol Administration Per Protocol Propofol 1,000 mg in 100 mls @ 0 mls/hr 08/17/25 23:15 08/18/25 04:10 Diprivan IV 60 mcg/kg/min .Q0M OMAR 19.44 mls/hr Protocol Titration Per Protocol Dextrose 250 mls @ 30 mls/hr 08/18/25 01:30 08/18/25 05:34 D10w IV 08/18/25 07:06 30 mls/hr .Q8H20M OMAR Infusion Midazolam HCl 100 mg in 100 mls @ 0 mls/hr 08/18/25 02:30 08/18/25 03:01 Versed IV 1 mg/hr .Q0M OMAR 1 mls/hr Protocol Administration Per Protocol Lorazepam 2 mg 08/18/25 01:13 08/18/25 01:38 Lorazepam 2 Mg/Ml Inj 1 Ml IV 2 mg Q1H PRN Administration SEIZURES Pantoprazole Sodium 40 mg 08/18/25 00:30 08/18/25 01:45 Pantoprazole 40 Mg Sdv IVP 40 mg Q24H OMAR Administration PFSH Acute 2 PFSH: Medical History (Updated 08/18/25 @ 00:58 by Parag Mcgregor DO) Anemia Renal transplant failure and rejection Kidney transplant failure Noncompliance with renal dialysis Adrenal insufficiency Hypoglycemia CKD (chronic kidney disease) stage V requiring chronic dialysis Generalized anxiety disorder Other stimulant dependence, in remission Problems related to lack of adequate sleep Substance abuse Depression Anxiety Surgical History Kidney transplant recipient Social History Smoking and tobacco/nicotine status: tobacco/nicotine user, details unknown e- cigarettes E-Cigarette Details: vaporizer device and with nicotine E-cig/vape details: 6 mg and smokeless tobacco Smokeless tobacco user: chewing tobacco Smokeless tobacco details: 1 can/3 days. Quit status (tobacco/nicotine): has tried quititng Number of times tried to quit tobacco: 4 Second hand smoke exposure: No Alcohol intake: never Substance/Drug Use: current Substance/Drug use frequency: Special occassions/opportunity only Additional social history: Patient uses marijuana 1 g every other day he has remote history of some meth use. He reports chewing tobacco and using nicotine pouches but denies smoking cigarettes. He denies suicidal ideation. Patient is companied by his girlfriend and his CODE STATUS is always been full code confirmed with the patient on 06/05/2025 that he wants full CODE STATUS by Daron Ayala MD Patient admits to THC use Vitals/I&O/Wt Last Vital Signs Temp 99.1 F 08/18/25 04:00 Pulse 100 08/18/25 04:45 Resp 16 08/18/25 03:42 BP 207/149 08/18/25 04:45 Pulse Ox 98 08/18/25 04:45 O2 Del Method Mechanical Ventilation 08/18/25 04:45 O2 Flow Rate 40 08/18/25 02:15 FiO2 40 08/18/25 04:45 08/17/25 08/17/25 08/18/25 14:59 22:59 06:59 Intake Total 59.045 / 59.045 687.921 / 746.966 Balance 59.045 / 59.045 687.921 / 746.966 Weight last 48 hrs Weight 47.5 kg Weight 51.5 kg Weight 54 kg Physical Exam 2 Narrative: Currently intubated and sedated No acute distress S1-S2 regular rate and rhythm Lungs with crackles bilaterally Abdomen soft nontender Extremities with no edema Data 08/17/25 21:14 08/18/25 06:08 A&P Assessment and plan 1. ESRD on hemodialysis: Plan: 1. End-stage renal disease: Patient missed hemodialysis and now presented with severe hyperkalemia and also had seizures. Patient now intubated and sedated, emergent dialysis for severe hyperkalemia. Patient has multiple previous admission for noncompliance and missing dialysis. 2. Hypertensive urgency: Initial blood pressures 209/137, blood pressures have improved now 3. Hyperkalemia, emergent HD as above 4. Altered mental status, currently intubated 5. Recurrent seizures, patient with no prior history of seizures, 6. Anemia: Monitor RUBA when indicated Patient is seen and examined via audiovisual cart. Time spent 45 minutes. PDMP PDMP Reviewed: Not Reviewed Consult Attestations 2 Medical Necessity Statement: per medicine team Coding Level of Care Code Acute Code for Chg Fwd Diagnoses ESRD on hemodialysis N18.6; Z99.2
[2025-08-18] MEDS: propofol 1,000 MG/100 ML INJ 16.2 MG IV ×3 (06:32→19:09)
[2025-08-18] MEDS: hyDRALAzine 20 mg/mL INJ 1 mL IVP (06:35)
--- NOTE | 2025-08-18 06:38 | PC.NURSE ---
When patient arrived to ICU the patient had tremors like activity, potentially seizure like as was reported by ER staff. Propofol and Fentanyl increased. After speaking with Hospitalist shortly after arrival several orders were added: Versed drip added. Hydralazine IVP PRN added. D10 250mL bag added initially at 50mL/hr, later dropped to 30mL/hr with improving blood glucose. Hydralazine 100mg TID via OG tube later added to continue to address hypertension. 2mg IVP Ativan added for seizure like activity. Discussed sedation goals with Dr. Cordero to attempt to control seizure/tremor like activity. Bear hugger was applied shortly after arrival due to low rectal temperature. Later stopped with improving temperature. business economist reported almost 3L fluid removed.
[2025-08-18 06:56] LABS: Anion Gap 25.9 (5-19); Blood Urea Nitrogen 41 mg/dL (6-20); Calcium 9.5 mg/dL (8.5-10.5); Carbon Dioxide 25 mmol/L (22-29); Chloride 92 mmol/L (98-107); Creatinine Clr Calc Pharmacy 11.8335; Glucose 142 mg/dL (65-115); Osmolality Calculated 299 mOsm/kg (285-295); Potassium 4.9 mmol/L (3.5-5.1); Sodium 138 mmol/L (136-145)
[2025-08-18] MEDS: DILTIAZEM HCL/D5W 125 MG/125 ML BAG IV (09:03)
[2025-08-18] MEDS: fentaNYL 1,000 MCG/100 ML BAG 15 MCG IV ×2 (14:25→20:34)
--- NOTE | 2025-08-18 20:08 | PM.MISC ---
Miscellaneous Note Purpose of Documentation: status post intubation secondary to status epilepticus in the ER, Further clarifications were made by the patient girlfriend today who was at the bedside and informed that the patient missed his HD session intentionally and is not complaint to his treatment. Furthermore he also uses some drugs THC mixed with something that she is not boateng but there is some extra substance. Note: Interval history: Further clarifications were made by the patient girlfriend today who was at the bedside and informed that the patient missed his HD session intentionally and is not complaint to his treatment. Furthermore he also uses some drugs THC mixed with something that she is not boateng but there is some extra substance. patient had been on cardiazem drip started in the morning since his meds were not reconciled and due to status of hold by the ER physician during admission, the medications were locked and could not be given. the technical situation of reconciliation was sorted out with the IT, and later started gradually on his home medications that lead to turn off cardiazem drip. Sepsis: could be a possibility keita cultures and to start the pt on broad spectrum abx with zosyn and vanc MRSA maintain adequate hydration based on pt capillary refill and MAP, pt had high BP and ESRD, therefore to be cautious with hydration send urine for drug screen Neuro: Seizures likely metabolic in nature, missed sessions of the HD Head CT unremarkable cont sedation and titrate slowly since pt required high dose of opiods at baseline, daily SAT and SBT trials cont medications for agitation, clonazepam bid prn ( pt taking at home ) : ESRD, nephro onboard and to follow the plan HD as required and per schedule monitor and correction of electrolytes accordingly Resp: cont vent management currently on minimal settings chest ascultation exam unremarkable grossly CVS: off cardizem drip cont with labetalol, nifedipine, losartan, hydralazine 100mg tid and clonidine and hold losartan at the moment keep the MAP above 65mmhg however avoid BP systolic above 180s GI: start GI feed at the lowest rate with increments as tolerated with target goal nepro formula 10-20ml/hr as of now maintain I/O Endo: pt having normal Blood glucose however less than 100, started on NGT feeding, and cont on DW10 at 50ml/hr with regular glucose monitoring. Hyperkalemia: resolved, cont to monitor vte: heparin diet: NGT feeding nepro Patient condition has been discussed at length with the patient/family, I have independently reviewed the chart labs imaging/diagnostics/EKG. the goals of care and code status with the patient/family/NOK/legal food products sales representative, and documented accordingly. The management has been done according to the current clinical condition with respect to patient goals of care and based on recommendations/guidelines. The patient/family has been informed about the current condition and further plan of care. Agreed with the plan of care and understood without any language barrier. Every effort was made to ensure accuracy of industrial engineering manager. Any obvious errors or omissions should be clarified with the author of the document.
--- NOTE | 2025-08-18 20:31 | PHA.VACGOAL ---
Vancomycin Goal - Goal Vancomycin Goal:: 15-20 mg/L Vancomycin Indication:: Other - Therapy Current therapy:: Pip/Tazo Day of therpy:: Day []of [] . Actual body weight (kg): 104 lb 11.513 oz - Data Labs: WBC 9.81 10^3/uL (3.29-11.43) 08/17/25 21:14 RBC 3.05 10^6/uL (3.85-5.65) L 08/17/25 21:14 Hgb 9.20 g/dL (11.27-16.99) L 08/17/25 21:14 Hct 31.0 % (37-53) L 08/17/25 21:14 MCV 101.6 fl (82-101) H 08/17/25 21:14 MCH 30.2 pg (27-33) 08/17/25 21:14 MCHC 29.7 g/dL (30-55) L 08/17/25 21:14 RDW 15.9 % (12.1-15.1) H 08/17/25 21:14 Sodium 138 mmol/L (136-145) 08/18/25 06:08 Potassium 4.9 mmol/L (3.5-5.1) 08/18/25 06:08 Chloride 92 mmol/L (98-107) L 08/18/25 06:08 Carbon Dioxide 25 mmol/L (22-29) 08/18/25 06:08 Anion Gap 25.9 (5-19) H 08/18/25 06:08 BUN 41 mg/dL (6-20) H 08/18/25 06:08 Creatinine 6.8 mg/dL (0.7-1.2) H* D 08/18/25 06:08 GFR Calculation 10.0 mL/min (90-130) L 08/18/25 06:08 Treatment plan:: new consult Regimen:: HD PATIENT HD NOT SCHEDULED AT THIS TIME 1000 MG NOW FOLLOW UP WITH DOSE AFTER NEXT HD
[2025-08-18 20:58] LABS: Hematocrit 27.2 % (37-53); Hemoglobin 8.70 g/dL (11.27-16.99); Mean Corpuscular HGB Conc 32.0 g/dL (30-55); Mean Corpuscular Hemoglobin 30.6 pg (27-33); Mean Corpuscular Volume 95.8 fl (82-101); Nucleated Red Blood Cells % 0 %; Platelet Count 144 10^3/cmm (157-399); Red Blood Count 2.84 10^6/uL (3.85-5.65); White Blood Count 4.88 10^3/uL (3.29-11.43)
[2025-08-19] VITALS (103 sets, daily range): BP systolic 101–150; BP diastolic 53–94; PULSE 79–108; RESP 16–20; TEMP 37.5–38.8; O2SAT 83–100
[2025-08-19] MEDS: piperacillin-tazobactam 3.375 GM in sodium chloride 0.9% (plus) 50 ML IV ×2 (00:14→13:25)
[2025-08-19] MEDS: pantoprazole 40 mg SDV IVP (00:14)
[2025-08-19] MEDS: heparin 5,000 unit/mL INJ 1 mL 5000 UNIT SUBCUT ×2 (00:14→13:26)
[2025-08-19] MEDS: propofol 1,000 MG/100 ML INJ 16.2 MG IV ×3 (01:49→13:31)
[2025-08-19] MEDS: fentaNYL 1,000 MCG/100 ML BAG 15 MCG IV ×3 (01:50→14:06)
[2025-08-19 04:58] LABS: Hematocrit 23.7 % (37-53); Hemoglobin 7.50 g/dL (11.27-16.99); Mean Corpuscular HGB Conc 31.6 g/dL (30-55); Mean Corpuscular Hemoglobin 31.0 pg (27-33); Mean Corpuscular Volume 97.9 fl (82-101); Nucleated Red Blood Cells % 0 %; Platelet Count 139 10^3/cmm (157-399); Red Blood Count 2.42 10^6/uL (3.85-5.65); White Blood Count 5.23 10^3/uL (3.29-11.43)
[2025-08-19 05:04] LABS: ABG PCO2 38.7 mmHg (35-45); ABG PH Result 7.43 (7.35-7.45); Alveolar-Arterial Oxygen Gradi 10.4 mmHg (5-10); Arterial Blood Gas Hematocrit 30.3 % (42-52); Blood Gas Allen Test Pos; Blood Gas Operator Identificat JDB; Blood Gas Sample Site Radial, right; Blood Gas Sample Type Arterial; Blood Gas Tidal Volume 0.37; Carboxyhemoglobin 1.5 %THgb (0.4-20.1); Glucose Level-ABG 88.0 mg/dL (70-115); HCO3 ABG 25.4 mmol/L (22-26); Ionized Calcium Level - ABG 1.1 mmol/L (1.1-1.4); Methemoglobin 0.5 % (0.4-1.5); Oxygen Saturation ABG 97.6; PEEP 5.0 cmH20; PO2 ABG 85.7 mmHg (80.0-100.0); PO2 FiO2 Ratio Arterial Blood 285; Potassium Level - ABG 4.8 mmol/L (3.5-5.0); Sodium Level - ABG 134.0 mmol/L (131-143)
[2025-08-19 05:14] LABS: Alanine Aminotransferase 8 U/L (0-41); Albumin Level 3.7 g/dL (3.5-5.2); Alkaline Phosphatase 85 U/L (40-130); Anion Gap 22.1 (5-19); Aspartate Amino Transferase 16 U/L (0-40); Blood Urea Nitrogen 53 mg/dL (6-20); Calcium 8.8 mg/dL (8.5-10.5); Carbon Dioxide 22 mmol/L (22-29); Chloride 94 mmol/L (98-107); Creatinine Clr Calc Pharmacy 7.6636; Globulin 1.8 g/dL (1.3-4.6); Glucose 92 mg/dL (65-115); Magnesium 2.1 mg/dL (1.7-2.3); Osmolality Calculated 290 mOsm/kg (285-295); Potassium 5.1 mmol/L (3.5-5.1); Sodium 133 mmol/L (136-145); Total Protein 5.5 g/dL (6.6-8.7)
--- NOTE | 2025-08-19 05:29 | PC.NURSE ---
At approximately 0400, I pulled patient's home med, Oxycodone 15 mg bottle with tamper tape still intact, from House Sup pyxis and delivered it to Harjinder Arellano RN in ICU. Harjinder then placed the bottle of Oxycodone 15 mg in the ICU pyxis under Home Meds.
[2025-08-19 05:58] LABS: PCP Screen Urine Negative (Negative)
[2025-08-19] MEDS: midazolam hcl 100 MG/100 ML BAG IV (11:04)
--- NOTE | 2025-08-19 12:10 | P.PN_ITS ---
Subjective 2 Subjective: remains on vent Medications: Reviewed: Yes Vitals/I&O/Wt Last Vital Signs Temp 101.1 F H 08/19/25 08:00 Pulse 84 08/19/25 08:00 Resp 16 08/19/25 11:48 BP 118/71 08/19/25 08:00 Pulse Ox 95 08/19/25 11:48 O2 Del Method Mechanical Ventilation 08/19/25 08:00 O2 Flow Rate 40 08/18/25 02:15 FiO2 30 08/19/25 11:48 08/18/25 08/19/25 08/19/25 22:59 06:59 14:59 Intake Total 263.023 / 710.882 669 / 1379.882 304.137 / 304.137 Output Total 80 / 80 Balance 263.023 / 710.882 589 / 1299.882 304.137 / 304.137 Weight last 48 hrs Weight 49 kg Weight 47.5 kg Weight 47.5 kg Weight 51.5 kg Weight 54 kg Physical Exam 2 Narrative: Currently intubated and sedated No acute distress S1-S2 regular rate and rhythm Lungs with crackles bilaterally Abdomen soft nontender Extremities with no edema Data 08/19/25 04:28 08/19/25 04:28 Micro: Microbiology 08/17/25 21:14 Blood Culture - Preliminary Blood SPECIMEN COLLECTED 08/18/25 20:36 Blood Culture - Preliminary Blood SPECIMEN COLLECTED 08/18/25 11:05 Gram Stain - Final Sputum - Endotracheal Tube Aspirate A&P Assessment and plan 1. ESRD on hemodialysis: Plan: 1. End-stage renal disease: Patient missed hemodialysis and presented with severe hyperkalemia and also had seizures. Patient now intubated and sedated, emergent dialysis yesterday for severe hyperkalemia. Patient has multiple previous admission for noncompliance and missing dialysis. HD today 2. Hypertensive urgency: Initial blood pressures 209/137, blood pressures have improved now 3. Hyperkalemia, emergent HD as above, improved 4. Altered mental status, currently intubated 5. Recurrent seizures, patient with no prior history of seizures, 6. Anemia: Monitor RUBA when indicated Patient is seen and examined via audiovisual cart. Time spent 45 minutes. PDMP PDMP Reviewed: Not Reviewed Attestations 2 Medical Necessity Statement*: per medicne Coding Level of Care Code Acute Code for Chg Fwd Diagnoses ESRD on hemodialysis N18.6; Z99.2
[2025-08-19] MEDS: heparin, porcine 1,000 unit/mL INJ 10 mL 10000 UNIT INTRACATH (16:34)
--- NOTE | 2025-08-19 16:58 | P.CONIM_ITS ---
Providers/Reason For Consult 2 Consulting Physician/Specialty*: Dr Khan/pulm/cc Reason for Consult*: Intubated agitated methamphetamine withdrawal Attending Physician: Lavern Osuna MD Primary Care Provider: Beverly Veronica MD History of Present Illness History of Present Illness Vance Sainz is a 25 year old male with past history of medical compliance with chronic hemodialysis, multiple admissions in the past comes in here with headache after EMS found him seizing. Total of 4 seizures noted. He was recommended to have continuous EEG but neurology decided against it for now. He has been found with metabolic derangements and and methamphetamine positive. He was intubated to protect airway. Very difficult to sedate. Currently on propofol drip as well as Versed and fentanyl high-dose. Initially was hypotensive but current systolic blood pressure is 132 after dialysis, 2 L taken off emergently. Currently patient is awake and following commands. Not had any seizures since yesterday. Review of systems unobtainable patient is intubated Medications/Allergies Home Medications ?Medication ?Instructions ?Recorded ?Confirmed ?Last Taken ?Type clonazepam 1 mg tablet (Klonopin) 1 mg PO BID PRN anxi ety #10 tabs 01/09/25 08/18/25 02/12/25 09:00 Rx hydralazine 100 mg tablet 100 mg PO TID 04/05/2508/18 Unknown History sumatriptan 20 mg/actuation nasal 20 mg intranasal Q12 H PRN Migraine 04/05/25 08/18/25 Unknown History spray Headache fluoxetine 10 mg capsule 10 mg PO DAILY 06/28/25 10/11/1207/09/25 History acetaminophen 325 mg tablet 650 mg (2 x 325 mg) PO Q6H PRN 06/29/25 08/18/25 07/09/25 Rx Mild/Mod Pain Or Temp >/= 101 #30 tabs clonidine HCl 0.1 mg tablet 0.2 mg (2 x 0.1 mg) PO TID #90 tabs 06/29/25 08/18/25 07/09/25 Rx divalproex 500 mg tablet,delayed 500 mg PO BID #60 tab s 06/29/25 08/18/25 07/09/25 Rx release methocarbamol 750 mg tablet 750 mg PO Q8H PRN muscle s pasm #30 07/08/25 08/18/25 07/09/25 Rx tabs sodium zirconium cyclosilicate 5 5 g PO DAILY #11 ea 0 07/12/25 08/18/25 Unknown Rx gram oral powder packet (Lokelma) prednisone 5 mg tablet 5 mg PO DAILY 07/17/2508/18 Unknown History sevelamer carbonate 800 mg tablet See Rx Instructions .Route .COMPLEX 07/17/25 08/18/25 Unknown History labetalol 100 mg tablet 300 mg (3 x 100 mg) PO BID 3 0 days 08/11/25 08/18/25 Unknown Rx #180 tabs losartan 50 mg tablet 100 mg (2 x 50 mg) PO DAILY 30 08/11/25 08/18/25 Unknown Rx days #120 tabs nifedipine 90 mg tablet,extended 90 mg PO DAILY 30 day s #30 tabs 08/11/25 08/18/25 Unknown Rx release Allergies Allergy/AdvReac Type Severity Reaction Status Date / Time NSAIDS (Non-Steroidal Allergy Severe unable to Verified 06/27/25 20:41 Anti-Inflamma take due to kidney disease sertraline (From Zoloft) Allergy Unknown Verified 06/27/25 20:41 Current Medications Generic Name Dose Route Start Last Admin Trade Name Freq PRN Reason Stop Dose Admin Acetaminophen 650 mg 08/18/25 18:31 08/18/25 20:24 Acetaminophen 325 Mg Tablet PO 650 mg Q6H PRN Administration MILD PAIN OR INCREASE TEMP Clonidine HCl 0.2 mg 08/18/25 21:00 08/19/25 13:30 Clonidine 0.1 Mg Tablet PO Not Given TID OMAR Docusate Sodium 100 mg 08/18/25 05:00 08/19/25 05:44 Docusate Sodium 100 Mg Capsule PO 100 mg BID OMAR Administration Fluoxetine HCl 10 mg 08/19/25 05:00 08/19/25 05:44 Fluoxetine 10 Mg Capsule PO 10 mg DAILY OMAR Administration Heparin Sodium (Porcine) 5,000 unit 08/18/25 00:30 08/19/25 13:26 Heparin 5,000 Unit/Ml Inj 1 Ml SUBCUT 5,000 unit Q12H OMAR Administration Hydralazine HCl 100 mg 08/18/25 06:00 08/19/25 13:30 Hydralazine 50 Mg Tablet OG-TUBE Not Given TID OMAR Hydralazine HCl 20 mg 08/18/25 05:32 08/18/25 06:35 Hydralazine 20 Mg/Ml Inj 1 Ml IVP 20 mg Q6H PRN Administration Systolic Greater than 200 Dextrose 250 mls @ 1,000 mls/hr 08/17/25 22:02 08/18/25 07:22 D10w IV Infused PRN PRN Infusion HYPOGLYCEMIA Fentanyl 1,000 mcg in 100 mls @ 0 mls/hr 08/17/25 23:00 08/19/25 14:06 Sublimaze IV 150 mcg/hr .Q0M OMAR 15 mls/hr Protocol Administration Per Protocol Propofol 1,000 mg in 100 mls @ 0 mls/hr 08/17/25 23:15 08/19/25 14:48 Diprivan IV 45 mcg/kg/min .Q0M OMAR 14.58 mls/hr Protocol Titration Per Protocol Midazolam HCl 100 mg in 100 mls @ 0 mls/hr 08/18/25 02:30 08/19/25 11:04 Versed IV 4 mg/hr .Q0M OMAR 4 mls/hr Protocol Administration Per Protocol DILTIAZEM HCL/D5W 125 mg in 125 mls @ 0 mls/hr 08/18/25 08:45 08/18/25 17:19 Cardizem IV 0 mg/hr .Q0M OMAR 0 mls/hr Protocol Titration Per Protocol Piperacillin Sod/Tazobactam 50 mls @ 12.5 mls/hr 08/19/25 00:00 08/19/25 13:25 Sod 3.375 gm/ Sodium Chloride IV 12.5 mls/hr Q12H OMAR Administration Protocol Labetalol HCl 300 mg 08/18/25 17:00 08/19/25 07:45 Labetalol 200 Mg Tablet PO Not Given BID OMAR Losartan Potassium 100 mg 08/19/25 05:00 08/19/25 07:46 Losartan 100 Mg Tablet PO Not Given DAILY OMAR Nifedipine 90 mg 08/19/25 05:00 08/19/25 07:46 Nifedipine Er (24 Hr) 30 Mg Tablet PO Not Given DAILY OMAR Pantoprazole Sodium 40 mg 08/18/25 00:30 08/19/25 00:14 Pantoprazole 40 Mg Sdv IVP 40 mg Q24H OMAR Administration Prednisone 5 mg 08/19/25 05:00 08/19/25 05:44 Prednisone 5 Mg Tablet PO 5 mg DAILY OMAR Administration Senna 17.2 mg 08/18/25 21:00 08/18/25 20:23 Sennosides 8.6 Mg Tablet PO 17.2 mg BEDTIME OMAR Administration PFSH Acute 2 PFSH: Medical History (Updated 08/18/25 @ 00:58 by Parag Mcgregor DO) Anemia Renal transplant failure and rejection Kidney transplant failure Noncompliance with renal dialysis Adrenal insufficiency Hypoglycemia CKD (chronic kidney disease) stage V requiring chronic dialysis Generalized anxiety disorder Other stimulant dependence, in remission Problems related to lack of adequate sleep Substance abuse Depression Anxiety Surgical History Kidney transplant recipient Social History Smoking and tobacco/nicotine status: tobacco/nicotine user, details unknown e- cigarettes E-Cigarette Details: vaporizer device and with nicotine E-cig/vape details: 6 mg and smokeless tobacco Smokeless tobacco user: chewing tobacco Smokeless tobacco details: 1 can/3 days. Quit status (tobacco/nicotine): has tried quititng Number of times tried to quit tobacco: 4 Second hand smoke exposure: No Alcohol intake: never Substance/Drug Use: current Substance/Drug use frequency: Special occassions/opportunity only Additional social history: Patient uses marijuana 1 g every other day he has remote history of some meth use. He reports chewing tobacco and using nicotine pouches but denies smoking cigarettes. He denies suicidal ideation. Patient is companied by his girlfriend and his CODE STATUS is always been full code confirmed with the patient on 06/05/2025 that he wants full CODE STATUS by Daron Ayala MD Patient admits to THC use Vitals/I&O/Wt Last Vital Signs Temp 99.7 F H 08/19/25 16:15 Pulse 80 08/19/25 16:15 Resp 16 08/19/25 16:00 BP 121/77 08/19/25 16:15 Pulse Ox 100 08/19/25 16:15 O2 Del Method Mechanical Ventilation 08/19/25 16:15 O2 Flow Rate 40 08/18/25 02:15 FiO2 30 08/19/25 16:15 08/19/25 08/19/25 08/19/25 06:59 14:59 22:59 Intake Total 669 / 1379.882 451.777 / 451.777 Output Total 80 / 80 Balance 589 / 1299.882 451.777 / 451.777 Weight last 48 hrs Weight 108 lb 0.424 oz Weight 104 lb 11.513 oz Weight 104 lb 11.513 oz Weight 113 lb 8.609 oz Weight 119 lb 0.794 oz Physical Exam 2 Narrative: Per RN General: Intubated, awake agitated HEENT: EOMI Pulmonary: CTAB Cardiovascular: rrr, nl s1s2, Abdomen: soft, nt, nd, no r/g, Extremities: no edema Neurologic: grossly intact Agree with above exam Data 08/19/25 04:28 08/19/25 04:28 Micro: Microbiology 08/18/25 11:05 Gram Stain - Final Sputum - Endotracheal Tube Aspirate Sputum Culture - Final Moraxella catarrhalis 08/17/25 21:14 Blood Culture - Preliminary Blood Staphylococcus aureus 08/18/25 20:36 Blood Culture - Preliminary Blood SPECIMEN COLLECTED A&P Assessment and plan 1. Substance abuse: 2. Hypertensive urgency: 3. ESRD on dialysis: 4. Noncompliance with renal dialysis: Plan: # Acute hypoxemic respiratory failure most likely secondary to pulmonary edema -most likely secondary to acute pulmonary edema due to missed dialysis sessions. Vancomycin and Zosyn was started empirically for presumed pneumonia. Chest x- ray looks like pulmonary vascular congestion. Although underlying pneumonia cannot be ruled out. Awaiting sputum cultures. Currently growing mozzarella catarrhalis 08/19/2025. Continue ventilator support and wean as tolerated. Continue bronchopulmonary hygiene bronchodilator therapy SBT has been sedation is better controlled. # Status epilepticus -CT head reviewed 08/17/2025-negative for any acute events. - Status epilepticus was most likely secondary to methamphetamine use. Continuous EEG may be needed if he has any more recurrence episodes # Polysubstance abuse history/meth amphetamine abuse. Currently positive for opiates and benzos. - Watch for withdrawals. Currently very agitated. May need CIWA diazepam protocol if he does not tolerate scheduled meds. Will start Seroquel 100 mg p.o. twice daily -Will start Oxy IR at 10 mg p.o. 3 times daily along with Ativan 2 mg p.o. 3 times daily for agitation control # Hypekalemia Status post dialysis. 3 L out. Current pH is 5.1 08/19/2025 # Acute on chronic renal failure on chronic hemodialysis Nephrology following appreciate help. Continue dialysis sessions # Medical noncompliance # Hyponatremia # Agitation issues secondary to methamphetamine withdrawal # Hyperglycemia-insulin sliding scale medium. Avoid hypoglycemia. Maintain blood sugars between 140-180. # Sedation-continue Versed as needed and fentanyl drip for now. Continue propofol drip and wean as tolerated. Seroquel Ativan Oxy IR added # Nutrition-continue tube feeds, monitor BMs # DVT GI prophylaxis-heparin SCDs and famotidine. # Goals of care-no family at bedside # CODE STATUS- FULL # Disposition-Will need full ICU support follow-up The high probability of a clinically significant, sudden or life threatening deterioration of the patient's [Respiratory, cardiac and renal] system(s) required my full and direct attention, intervention and personal management. The critical care time is as shown. This time is in addition to time spent performing any reported procedures but includes the following: [x] Data and vital sign review and interpretation [x] Patient assessment, examination and intervention [x] Documentation [x] Medication orders and management Critical Care Time (min): 35 Telemedicine Consent Patient seen today via Telemedicine by agreement and consent of patient.? Telemedicine technology used during the visit includes audio and, as available, review of images.? The patient encounter is appropriate and reasonable under the circumstances given the patient?s particular presentation at this time.? The patient has been advised of the potential risks and limitations of this mode of treatment (including but not limited to the absence of in-person examination) and has agreed to be treated in a remote fashion in spite of them.? Any, and all, of the patient?s/patient?s family?s questions on this issue have been answered and I have made no promises or guarantees to the patient. The patient has also been advised to contact this office for worsening conditions or problems, and seek emergency medical treatment and/or call 911 if the patient deems either necessary PDMP PDMP Reviewed: Not Reviewed Coding Level of Care Code Critical Care >/= 30 minutes Diagnoses Substance abuse F19.10 Hypertensive urgency I16.0 ESRD on dialysis N18.6; Z99.2 Noncompliance with renal dialysis Z91.158
[2025-08-19] MEDS: oxyCODONE 5 mg IR Tab/Cap 10 MG PO (17:10)
--- NOTE | 2025-08-19 17:16 | PC.NURSE ---
Tube feeding: Tube feeding paused per order. Started at 0100, paused at 1700. FWF: 1600ml FED: 320ml
--- NOTE | 2025-08-19 18:04 | P.PN_ITS ---
Subjective 2 Subjective: patient remains sedated and remains on vent gets agitated overnight intermittently and needs higher dose of sedation nephro onboard and for HD today called pulm for further recommendation and management Medications: Reviewed: Yes Vitals/I&O/Wt Last Vital Signs Temp 99.5 F 08/19/25 17:19 Pulse 79 08/19/25 17:19 Resp 20 H 08/19/25 17:19 BP 125/67 08/19/25 17:19 Pulse Ox 100 08/19/25 17:10 O2 Del Method Mechanical Ventilation 08/19/25 16:15 O2 Flow Rate 40 08/18/25 02:15 FiO2 30 08/19/25 16:15 08/19/25 08/19/25 08/19/25 06:59 14:59 22:59 Intake Total 669 / 1379.882 451.777 / 998.890 0453 / 2921.777 Output Total 80 / 80 2961 / 2961 Balance 589 / 1299.882 451.777 / 451.777 -491 / -39.223 Weight last 48 hrs Weight 48.5 kg Weight 49 kg Weight 47.5 kg Weight 47.5 kg Weight 51.5 kg Weight 54 kg Physical Exam 2 Narrative: General: Patient on mechanical ventilation and sedation, requiring high-dose sedation, mid dilated pupils sluggish in reaction with light since the patient is on high dose of fentanyl HEENT: Grossly unremarkable exam Resp system: Bilateral equal air entry through mechanical ventilation however there are conducting sounds therefore unable to comment on wheezing or stridor, grossly unremarkable exam CVS: Adequate pulses, S1-S2 without any murmurs GI: Grossly unremarkable soft nontender nondistended abdomen Neuro: Patient on sedation therefore unable to assess properly neurological status however gets agitated when weaned off sedation Extremities: Adequate pulses with good perfusion. Data 08/19/25 04:28 08/19/25 04:28 Micro: Microbiology 08/18/25 11:05 Gram Stain - Final Sputum - Endotracheal Tube Aspirate Sputum Culture - Final Moraxella catarrhalis 08/17/25 21:14 Blood Culture - Preliminary Blood Staphylococcus aureus 08/18/25 20:36 Blood Culture - Preliminary Blood SPECIMEN COLLECTED A&P Assessment and plan 1. Status epilepticus: Patient s/p intubation on high-dose sedation No previous history of seizures before Currently off sedation therefore EEG cannot further benefit due to hide sedation Continue to monitor and try to wean off sedation CT head was negative at admission 2. Acute hyperkalemia: Neurology on board, currently resolved Secondary to missed hemodialysis session Hemodialysis sessions as per nephrology plan Today for hemodialysis Continue to monitor his intake and output since he is still producing urine Monitor electrolytes and with further correction accordingly 3. Missed dialysis: Nephrology on board Hemodialysis session today and to follow the recommendations 4. Sepsis: Blood cultures and urine cultures to follow Patient ETT aspirate showed Moraxella species and to follow the sensitivity Continue on Zosyn and vancomycin Monitor intake and output Maintain normal vitals Maintain adequate hydration 5. Malignant hypertension: Patient had malignant hypertension at presentation, home medication reconciled. Initially he required Cardizem but after home medication reconciliation and resumption the blood pressure is better controlled Continue antihypertensive medications Maintain normal vitals PDMP PDMP Reviewed: Not Reviewed Attestations 2 Medical Necessity Statement*: Patient will require more than 2 midnights for the management of his status post intubation secondary to status epilepticus that could be related to his electrolyte imbalance secondary to missed session of dialysis and under follow- up with the export freight clerk Time Spent in Patient Care: 16 - 35 minutes (>than 50% of time sp ent in counselling and/or direct pt care on unit) . Other Attestations: Patient condition has been discussed at length with the patient/family, I have independently reviewed the chart labs imaging/diagnostics/EKG. the goals of care and code status with the patient/family/NOK/legal customer care representative, and documented accordingly. The management has been done according to the current clinical condition with respect to patient goals of care and based on recommendations/guidelines. The patient/family has been informed about the current condition and further plan of care. Agreed with the plan of care and understood without any language barrier. Every effort was made to ensure accuracy of messenger floorperson. Any obvious errors or omissions should be clarified with the author of the document. Coding Level of Care Code 95463 Diagnoses Status epilepticus G40.901 Acute hyperkalemia E87.5 Missed dialysis Sepsis A41.9 Malignant hypertension I10
--- NOTE | 2025-08-19 18:08 | PC.NURSE ---
Shift Note: Dialysis received this shift. Patient remains intubated. Slight decrease in sedation, patient awoke to verbal stimuli. Opens eyes and pulls at restraints, biting ET tube and mouth swab. Patient will pull at restraints and turn his head from side to side, sitting up in bed. Does not follow commands at this time. Temperatures range from 101.2- 99.7 rectally. Frequent suctioning to clear ET tube required, patient coughing often, yellow and brown colored sputum. No bowel movement this shift, 55ml urine out.
[2025-08-19] MEDS: propofol 1,000 MG/100 ML INJ 12.96 MG IV (18:25)
[2025-08-19] MEDS: vancomycin 500 MG in sodium chloride 0.9% (plus) 100 ML 200 MG IV (20:06)
[2025-08-20] VITALS (107 sets, daily range): BP systolic 89–172; BP diastolic 48–117; PULSE 61–85; RESP 15–23; TEMP 36.9–37.9; O2SAT 90–100
[2025-08-20] MEDS: piperacillin-tazobactam 3.375 GM in sodium chloride 0.9% (plus) 50 ML IV ×2 (01:08→12:14)
[2025-08-20] MEDS: heparin 5,000 unit/mL INJ 1 mL 5000 UNIT SUBCUT ×2 (01:09→12:15)
[2025-08-20] MEDS: pantoprazole 40 mg SDV IVP (01:09)
[2025-08-20] MEDS: oxyCODONE 5 mg IR Tab/Cap 10 MG PO ×3 (01:09→16:06)
--- NOTE | 2025-08-20 01:32 | PC.NURSE ---
Addendum entered by Eddi Robertson RN 08/21/25 03:08: TF stopped at 0000. 30mL/hr w/ 100mL flush Q2h. Original Note: TF restarted, 0130.
[2025-08-20] MEDS: propofol 1,000 MG/100 ML INJ 14.58 MG IV (01:53)
[2025-08-20] MEDS: NIFEdipine ER (24 hr) 30 mg Tablet 90 MG PO (04:18)
[2025-08-20 04:19] LABS: Hematocrit 22.7 % (37-53); Hemoglobin 7.20 g/dL (11.27-16.99); Mean Corpuscular HGB Conc 31.7 g/dL (30-55); Mean Corpuscular Hemoglobin 30.8 pg (27-33); Mean Corpuscular Volume 97.0 fl (82-101); Nucleated Red Blood Cells % 0 %; Platelet Count 146 10^3/cmm (157-399); Red Blood Count 2.34 10^6/uL (3.85-5.65); White Blood Count 8.29 10^3/uL (3.29-11.43)
[2025-08-20 04:58] LABS: Alanine Aminotransferase 14 U/L (0-41); Albumin Level 3.5 g/dL (3.5-5.2); Alkaline Phosphatase 107 U/L (40-130); Aspartate Amino Transferase 21 U/L (0-40); Blood Urea Nitrogen 28 mg/dL (6-20); Calcium 8.9 mg/dL (8.5-10.5); Carbon Dioxide 25 mmol/L (22-29); Chloride 96 mmol/L (98-107); Creatinine Clr Calc Pharmacy 13.0818; Globulin 2.1 g/dL (1.3-4.6); Glucose 90 mg/dL (65-115); Magnesium 2.1 mg/dL (1.7-2.3); Osmolality Calculated 285 mOsm/kg (285-295); Sodium 135 mmol/L (136-145); Total Protein 5.6 g/dL (6.6-8.7)
[2025-08-20 05:00] LABS: Anion Gap 19.0 (5-19); Potassium 5.0 mmol/L (3.5-5.1)
--- NOTE | 2025-08-20 06:09 | PC.NURSE ---
Patient was given 3/5 scheduled BP medications: Clonidine, Hydralazine, Nifedipine. Afterwards, patient's BP dropped from systolic ~150's, down to systolic 80's and 90's, with 2 MAP readings slightly below 65. Losartan and lobetolol were both held after decreasing BP. No tremors or seizure activity were noticed during this shift.
[2025-08-20] MEDS: propofol 1,000 MG/100 ML INJ 12.96 MG IV (06:33)
--- NOTE | 2025-08-20 10:31 | P.PN_ITS ---
Subjective 2 Subjective: remains on vent Medications: Reviewed: Yes Vitals/I&O/Wt Last Vital Signs Temp 98.4 F 08/20/25 06:00 Pulse 77 08/20/25 08:30 Resp 16 08/20/25 09:58 BP 109/61 08/20/25 08:30 Pulse Ox 98 08/20/25 09:58 O2 Del Method Mechanical Ventilation 08/20/25 06:00 O2 Flow Rate 40 08/18/25 02:15 FiO2 30 08/20/25 09:58 08/19/25 08/20/25 08/20/25 22:59 05:59 14:59 Intake Total 4113.692 / 4565.469 426.312 / 4965.653 Output Total 2961 / 2961 Balance 1152.692 / 1604.469 426.312 / 2004.653 Weight last 48 hrs Weight 47.5 kg Weight 48.5 kg Weight 49 kg Physical Exam 2 Narrative: Currently intubated and sedated No acute distress S1-S2 regular rate and rhythm Lungs with crackles bilaterally Abdomen soft nontender Extremities with no edema Data 08/20/25 04:05 08/20/25 04:05 Micro: Microbiology 08/18/25 20:36 Blood Culture - Preliminary Blood NEGATIVE TO DATE 08/18/25 11:05 Gram Stain - Final Sputum - Endotracheal Tube Aspirate Sputum Culture - Final Moraxella catarrhalis 08/17/25 21:14 Blood Culture - Preliminary Blood Staphylococcus aureus A&P Assessment and plan 1. ESRD on hemodialysis: Plan: 1. End-stage renal disease: Patient missed hemodialysis and presented with severe hyperkalemia and also had seizures. Patient now intubated and sedated. Patient has multiple previous admission for noncompliance and missing dialysis. HD yesterday 2. Hypertensive urgency: Initial blood pressures 209/137, blood pressures have improved now 3. Hyperkalemia, emergent HD as above, improved 4. Altered mental status, currently intubated 5. Recurrent seizures, patient with no prior history of seizures, 6. Anemia: Monitor RUBA when indicated 7. Acute resp filure , remains on vent Patient is seen and examined via audiovisual cart. Time spent 45 minutes. PDMP PDMP Reviewed: Not Reviewed Attestations 2 Medical Necessity Statement*: per anju Coding Level of Care Code Acute Code for Chg Fwd Diagnoses ESRD on hemodialysis N18.6; Z99.2
[2025-08-20] MEDS: midazolam hcl 100 MG/100 ML BAG IV (12:26)
[2025-08-20] MEDS: propofol 1,000 MG/100 ML INJ 16.2 MG IV (12:26)
--- NOTE | 2025-08-20 13:16 | XRR_ITS ---
PROCEDURE INFORMATION: Exam: XR Chest Exam date and time: 08/20/2025 5:29 PM Age: 25 years old Clinical indication: Device placement; Ng tube; Additional info: Og confirmation TECHNIQUE: Imaging protocol: Radiologic exam of the chest. Views: 1 view. COMPARISON: CR XR chest 1V portable [id number] 08/17/2025 9:45 PM FINDINGS: Tubes, catheters and devices: Enteric catheter present in satisfactory position. Endotracheal tube terminates above the josias by 2.0 cm. Lungs: Patchy opacity right lower lobe. Pleural spaces: Unremarkable. No pleural effusion. No pneumothorax. Heart/Mediastinum: Unremarkable. No cardiomegaly. Bones/joints: Unremarkable. XR/XR chest 1V portable [id number] IMPRESSION: 1. Endotracheal tube terminates above the josias by 2.0 cm. 2. Enteric catheter present in satisfactory position. 3. Right lower lobe airspace disease.
--- NOTE | 2025-08-20 14:48 | P.PN_ITS ---
Subjective 2 Subjective: Vance Sainz is a 25 year old male with past history of medical compliance with chronic hemodialysis, multiple admissions in the past comes in here with headache after EMS found him seizing. Total of 4 seizures noted. He was recommended to have continuous EEG but neurology decided against it for now. He has been found with metabolic derangements and and methamphetamine positive. He was intubated to protect airway. Very difficult to sedate. Currently on propofol drip as well as Versed and fentanyl high-dose. Initially was hypotensive but current systolic blood pressure is 132 after dialysis, 2 L taken off emergently. Currently patient is awake and following commands. Not had any seizures since yesterday. 08/20/2025 On propofol 50, fentanyl 125 and Versed 3. Trying to climb out of bed. Tolerating ventilator well otherwise. Review of systems unobtainable patient is intubated Vitals/I&O/Wt Last Vital Signs Temp 98.4 F 08/20/25 06:00 Pulse 65 08/20/25 14:39 Resp 17 08/20/25 13:12 BP 129/86 08/20/25 13:30 Pulse Ox 97 08/20/25 13:30 O2 Del Method Mechanical Ventilation 08/20/25 06:00 O2 Flow Rate 40 08/18/25 02:15 FiO2 30 08/20/25 13:12 08/19/25 08/20/25 08/20/25 22:59 05:59 14:59 Intake Total 4113.692 / 4565.469 426.312 / 4965.653 133.432 / 133.432 Output Total 2961 / 2961 Balance 1152.692 / 1604.469 426.312 / 2004.653 133.432 / 133.432 Weight last 48 hrs Weight 104 lb 11.513 oz Weight 106 lb 14.787 oz Weight 108 lb 0.424 oz Physical Exam 2 Narrative: Per RN General: Intubated, awake agitated HEENT: EOMI Pulmonary: CTAB Cardiovascular: rrr, nl s1s2, Abdomen: soft, nt, nd, no r/g, Extremities: no edema Neurologic: grossly intact Agree with above exam Data 08/20/25 04:05 08/20/25 04:05 Micro: Microbiology 08/18/25 05:30 Urine Culture - Preliminary Urine Catheterized 08/18/25 20:36 Blood Culture - Preliminary Blood NEGATIVE TO DATE 08/18/25 11:05 Gram Stain - Final Sputum - Endotracheal Tube Aspirate Sputum Culture - Final Moraxella catarrhalis 08/17/25 21:14 Blood Culture - Preliminary Blood Staphylococcus aureus A&P Assessment and plan 1. Substance abuse: 2. Hypertensive urgency: 3. ESRD on dialysis: 4. Noncompliance with renal dialysis: Plan: # Acute hypoxemic respiratory failure most likely secondary to pulmonary edema -most likely secondary to acute pulmonary edema due to missed dialysis sessions. Vancomycin and Zosyn was started empirically for presumed pneumonia. Chest x- ray looks like pulmonary vascular congestion. Although underlying pneumonia cannot be ruled out. Awaiting sputum cultures. Currently growing mozzarella catarrhalis 08/19/2025. Continue ventilator support and wean as tolerated. Continue bronchopulmonary hygiene bronchodilator therapy SBT tomorrow and plan to extubate. Chest x-ray today # Status epilepticus-no prior history of seizures back to polysubstance abuse -CT head reviewed 08/17/2025-negative for any acute events. - Status epilepticus was most likely secondary to polysubstance use. Continuous EEG may be needed if he has any more recurrence episodes - Stat CT head for any new neurochanges. As needed Ativan 2 mg for any new onset seizures, plan to repeat in 5 minutes if they recur. # Polysubstance abuse history/meth amphetamine abuse. Currently positive for opiates and benzos. - Watch for withdrawals. Currently very agitated. May need CIWA diazepam protocol if he does not tolerate scheduled meds. Will start Seroquel 100 mg p.o. twice daily -Continue Oxy IR at 10 mg p.o. 3 times daily along with Ativan 2 mg p.o. 3 times daily for agitation control # Hypertensive urgency - Resolved after dialysis # Hypekalemia Status post dialysis. 3 L out. Appreciate nephrology help. # Acute on chronic renal failure on chronic hemodialysis Nephrology following appreciate help. Continue dialysis sessions # Medical noncompliance # Hyponatremia. Sodium was 135 today. # Agitation issues secondary to methamphetamine withdrawal # Hyperglycemia-insulin sliding scale medium. Avoid hypoglycemia. Maintain blood sugars between 140-180. # Sedation-continue Versed as needed and fentanyl drip and propofol drip and wean as tolerated. Seroquel Ativan Oxy IR added. Wean off propofol drip and use Precedex along with Versed drip. Wean off fentanyl drip as well # Nutrition-continue tube feeds, monitor BMs # DVT GI prophylaxis-heparin SCDs and famotidine. # Goals of care-no family at bedside # CODE STATUS- FULL # Disposition-Will need full ICU support follow-up The high probability of a clinically significant, sudden or life threatening deterioration of the patient's [Respiratory, cardiac and renal] system(s) required my full and direct attention, intervention and personal management. The critical care time is as shown. This time is in addition to time spent performing any reported procedures but includes the following: [x] Data and vital sign review and interpretation [x] Patient assessment, examination and intervention [x] Documentation [x] Medication orders and management Critical Care Time (min): 35 Telemedicine Consent Patient seen today via Telemedicine by agreement and consent of patient.? Telemedicine technology used during the visit includes audio and, as available, review of images.? The patient encounter is appropriate and reasonable under the circumstances given the patient?s particular presentation at this time.? The patient has been advised of the potential risks and limitations of this mode of treatment (including but not limited to the absence of in-person examination) and has agreed to be treated in a remote fashion in spite of them.? Any, and all, of the patient?s/patient?s family?s questions on this issue have been answered and I have made no promises or guarantees to the patient. The patient has also been advised to contact this office for worsening conditions or problems, and seek emergency medical treatment and/or call 911 if the patient deems either necessary PDMP PDMP Reviewed: Not Reviewed Attestations 2 Medical Necessity Statement*: Intubated sedated Coding Level of Care Code Critical Care >/= 30 minutes Diagnoses Substance abuse F19.10 Hypertensive urgency I16.0 ESRD on dialysis N18.6; Z99.2 Noncompliance with renal dialysis Z91.158
--- NOTE | 2025-08-20 15:28 | P.PN_ITS ---
Subjective 2 Subjective: the patient was seen in the morning and high doses of sedation to avoid any agitation currently on versed, propofol and fentanyl. he requires these high doses since he has been taking opioids and with polysubstance abuse at baseline and has been non compliant with the management of his comorbid conditions for a better life. Medications: Reviewed: Yes Vitals/I&O/Wt Last Vital Signs Temp 98.4 F 08/20/25 06:00 Pulse 65 08/20/25 14:39 Resp 16 08/20/25 15:23 BP 129/86 08/20/25 13:30 Pulse Ox 99 08/20/25 15:23 O2 Del Method Mechanical Ventilation 08/20/25 06:00 O2 Flow Rate 40 08/18/25 02:15 FiO2 30 08/20/25 15:23 08/20/25 08/20/25 08/20/25 05:59 14:59 22:59 Intake Total 426.312 / 4965.653 133.432 / 133.432 Balance 426.312 / 2004.653 133.432 / 133.432 Weight last 48 hrs Weight 47.5 kg Weight 48.5 kg Weight 49 kg Physical Exam 2 Narrative: General: Patient on mechanical ventilation and sedation, requiring high-dose sedation, mid dilated pupils sluggish in reaction with light since the patient is on high dose of fentanyl HEENT: Grossly unremarkable exam Resp system: Bilateral equal air entry through mechanical ventilation however there are conducting sounds therefore unable to comment on wheezing or stridor, grossly unremarkable exam CVS: Adequate pulses, S1-S2 without any murmurs GI: Grossly unremarkable soft nontender nondistended abdomen Neuro: Patient on sedation therefore unable to assess properly neurological status however gets agitated when weaned off sedation Extremities: Adequate pulses with good perfusion. Data 08/20/25 04:05 08/20/25 04:05 Micro: Microbiology 08/18/25 05:30 Urine Culture - Preliminary Urine Catheterized 08/18/25 20:36 Blood Culture - Preliminary Blood NEGATIVE TO DATE 08/18/25 11:05 Gram Stain - Final Sputum - Endotracheal Tube Aspirate Sputum Culture - Final Moraxella catarrhalis 08/17/25 21:14 Blood Culture - Preliminary Blood Staphylococcus aureus A&P Assessment and plan 1. Status epilepticus: Patient s/p intubation on high-dose sedation No previous history of seizures before Currently on sedation therefore EEG cannot further benefit due to high sedation with propofol, fentanyl and midazolam,. however if any abnormal movements or agitation, can consider continuous EEG. As needed Ativan 2 mg for new onset seizures. If there is any changes in his neurological status then stat CT head can be considered with neurology on board to be taken accordingly. Continue to monitor and try to wean off sedation CT head was negative at admission For SBT tomorrow and possible extubation Burial Needs Salesperson on board for further management 2. Sepsis: Blood cultures and urine cultures to follow Patient ETT aspirate showed Moraxella species and to follow the sensitivity Continue on Zosyn and vancomycin Monitor intake and output Maintain normal vitals Maintain adequate hydration 3. Acute hyperkalemia: Neurology on board, currently resolved Secondary to missed hemodialysis session Hemodialysis sessions guided as per nephrology plan Continue to monitor his intake and output since he is still producing urine Monitor electrolytes and with further correction accordingly 4. Missed dialysis: Nephrology on board Hemodialysis session today and to follow the recommendations 5. Malignant hypertension: Patient had malignant hypertension at presentation, home medication reconciled. Initially he required Cardizem but after home medication reconciliation and resumption the blood pressure is better controlled Continue antihypertensive medications Maintain normal vitals 6. Polysubstance abuse: Patient agitation is secondary to polysubstance abuse. Continue antiagitation measures, Ativan as needed for agitation As per pulm recommendation to start Seroquel 100 mg twice daily Continue adequate analgesia and monitor for any agitation Neurochecks every shift 7. Noncompliance with medication regimen: Patient girlfriend/family has informed about his noncompliant behavior with his medical management for his comorbidities. After stabilizing patient and extubation to emphasize and counseled about his condition with the compliance of treatment for better quality of life. 8. Encounter for screening involving social determinants of health (SDoH): Case management on board to further guide about patient management since there might be some social obstacles regarding his medical condition that requires further guidance to avoid readmissions and help the patient for better quality of life PDMP PDMP Reviewed: Not Reviewed Attestations 2 Medical Necessity Statement*: Patient will stay more than 2 midnights in ICU for further management of his status epilepticus s/p intubation, malignant hypertension, end-stage renal disease with electrolyte disturbance requiring dialysis sessions with nephrology and pulmonology on board Time Spent in Patient Care: 16 - 35 minutes (>than 50% of time sp ent in counselling and/or direct pt care on unit) . Other Attestations: Patient condition has been discussed at length with the patient/family, I have independently reviewed the chart labs imaging/diagnostics/EKG. the goals of care and code status with the patient/family/NOK/legal customer solutions representative, and documented accordingly. The management has been done according to the current clinical condition with respect to patient goals of care and based on recommendations/guidelines. The patient/family has been informed about the current condition and further plan of care. Agreed with the plan of care and understood without any language barrier. Every effort was made to ensure accuracy of tankroom tender. Any obvious errors or omissions should be clarified with the author of the document. Coding Level of Care Code 84426 Diagnoses Status epilepticus G40.901 Sepsis A41.9 Acute hyperkalemia E87.5 Missed dialysis Malignant hypertension I10 Polysubstance abuse F19.10 Noncompliance with medication regimen Z91.148 Encounter for screening involving social determinants of health (SDoH) Z13.9
[2025-08-20] MEDS: propofol 1,000 MG/100 ML INJ 19.44 MG IV (17:41)
--- NOTE | 2025-08-20 18:58 | PC.NURSE ---
uneventful shift, gave order to increase feeding rate to 30 ml/hr. Pulmonology wanted fentanyl and propofol weaned and patient switched to precedex for possible extubation tomorrow, patient did not tolerate weaning kept trying to pull at ET tube but not willingly following commands.
[2025-08-21] VITALS (79 sets, daily range): BP systolic 121–203; BP diastolic 70–142; PULSE 65–105; RESP 9–23; TEMP 36.5–37.1; O2SAT 88–100
[2025-08-21] MEDS: heparin 5,000 unit/mL INJ 1 mL 5000 UNIT SUBCUT ×2 (00:50→11:59)
[2025-08-21] MEDS: piperacillin-tazobactam 3.375 GM in sodium chloride 0.9% (plus) 50 ML IV ×2 (00:50→11:58)
[2025-08-21] MEDS: propofol 1,000 MG/100 ML INJ 17.82 MG IV ×2 (00:50→05:34)
[2025-08-21] MEDS: pantoprazole 40 mg SDV IVP (00:50)
[2025-08-21] MEDS: oxyCODONE 5 mg IR Tab/Cap 10 MG PO ×3 (00:57→18:16)
[2025-08-21] MEDS: dexmedeTOMIDine 0.9 % NaCL 400 MCG/100 ML PREMIX IV (02:40)
[2025-08-21 03:56] LABS: Hematocrit 22.3 % (37-53); Hemoglobin 7.20 g/dL (11.27-16.99); Mean Corpuscular HGB Conc 32.3 g/dL (30-55); Mean Corpuscular Hemoglobin 31.2 pg (27-33); Mean Corpuscular Volume 96.5 fl (82-101); Nucleated Red Blood Cells % 0 %; Platelet Count 155 10^3/cmm (157-399); Red Blood Count 2.31 10^6/uL (3.85-5.65); White Blood Count 7.46 10^3/uL (3.29-11.43)
[2025-08-21] MEDS: NIFEdipine ER (24 hr) 30 mg Tablet 90 MG PO (04:09)
[2025-08-21 04:26] LABS: Alanine Aminotransferase 11 U/L (0-41); Albumin Level 3.6 g/dL (3.5-5.2); Alkaline Phosphatase 88 U/L (40-130); Anion Gap 24.7 (5-19); Aspartate Amino Transferase 13 U/L (0-40); Blood Urea Nitrogen 41 mg/dL (6-20); Calcium 8.9 mg/dL (8.5-10.5); Carbon Dioxide 21 mmol/L (22-29); Chloride 92 mmol/L (98-107); Creatinine Clr Calc Pharmacy 10.4504; Globulin 1.7 g/dL (1.3-4.6); Glucose 77 mg/dL (65-115); Magnesium 2.3 mg/dL (1.7-2.3); Osmolality Calculated 285 mOsm/kg (285-295); Potassium 4.7 mmol/L (3.5-5.1); Sodium 133 mmol/L (136-145); Total Protein 5.3 g/dL (6.6-8.7)
[2025-08-21] MEDS: LOSARTAN 100 MG TABLET PO (05:36)
--- NOTE | 2025-08-21 08:13 | XR_ITS ---
WS: [id number] Portable AP semiupright chest, 08/21/2025 Clinical Data: daily for intubation Comparison: Portable chest, 08/20/2025 Findings: The patchy right lower lobe opacity has diminished slightly. No nodules, masses or effusions are seen. The heart is enlarged. The pulmonary vascularity is not increased. No pneumonia or pneumothorax is seen. The endotracheal tube and nasogastric tube remain in the same position. There are monitor leads on the chest wall. XR/XR chest 1V portable [id number] Impression: 1. Minimal decrease in patchy right lower lobe opacity. 2. Satisfactory position of endotracheal tube and nasogastric tube. 3. Cardiomegaly.
--- NOTE | 2025-08-21 08:57 | PC.NUTR ---
Consult for TF recommendations. Per MD: Nepro 1.8 20cc/hr with continuous feeding for 16 hours and hold for 8 hours, FWF 100cc Q2H. Recommend Nepro 1.8 beginning @ 20cc/hr running continuously, increasing as tolerated to goal rate of 30 cc/hr w/FWF of 100cc Q4H or per MD discretion. Nepro 1.8 @30cc/hr will provide 1296kcals or 88% Pt's estimated kcal needs, 58.3 grams protein or 93% Pt's estimated protein needs and 526cc+600ccFWF or 77% Pt's estimated fluid needs.
[2025-08-21] MEDS: propofol 1,000 MG/100 ML INJ 21.06 MG IV (10:24)
--- NOTE | 2025-08-21 11:36 | P.PN_ITS ---
Subjective 2 Subjective: remains on vent Medications: Reviewed: Yes Vitals/I&O/Wt Last Vital Signs Temp 98.7 F 08/21/25 04:00 Pulse 73 08/21/25 09:00 Resp 16 08/21/25 09:56 BP 156/106 08/21/25 09:00 Pulse Ox 98 08/21/25 09:56 O2 Del Method Mechanical Ventilation 08/21/25 04:00 O2 Flow Rate 40 08/18/25 02:15 FiO2 30 08/21/25 09:56 08/20/25 08/21/25 08/21/25 22:59 06:59 14:59 Intake Total 1330.524 / 1463.956 455.870 / 1919.826 146.212 / 146.212 Balance 1330.524 / 1463.956 455.870 / 1919.826 146.212 / 146.212 Weight last 48 hrs Weight 50 kg Weight 47.5 kg Weight 48.5 kg Physical Exam 2 Narrative: Currently intubated and sedated No acute distress S1-S2 regular rate and rhythm Lungs with crackles bilaterally Abdomen soft nontender Extremities with no edema Data 08/21/25 03:29 08/21/25 03:29 Micro: Microbiology 08/17/25 21:14 Blood Culture - Preliminary Blood Staphylococcus aureus 08/18/25 05:30 Urine Culture - Final Urine Catheterized A&P Assessment and plan 1. ESRD on hemodialysis: Plan: 1. End-stage renal disease: Patient missed hemodialysis and presented with severe hyperkalemia and also had seizures. Patient now intubated and sedated. Patient has multiple previous admission for noncompliance and missing dialysis. HD today 2. Hypertensive urgency: Initial blood pressures 209/137, blood pressures have improved now 3. Hyperkalemia, emergent HD as above, improved 4. Altered mental status, currently intubated 5. Recurrent seizures, patient with no prior history of seizures, 6. Anemia: Monitor RUBA when indicated 7. Acute resp filure , remains on vent Patient is seen and examined via audiovisual cart. Time spent 45 minutes. PDMP PDMP Reviewed: Not Reviewed Attestations 2 Medical Necessity Statement*: per medicine Coding Level of Care Code Acute Code for Chg Fwd Diagnoses ESRD on hemodialysis N18.6; Z99.2
--- NOTE | 2025-08-21 12:18 | P.PN_ITS ---
Subjective 2 Subjective: Vance Sainz is a 25 year old male with past history of medical compliance with chronic hemodialysis, multiple admissions in the past comes in here with headache after EMS found him seizing. Total of 4 seizures noted. He was recommended to have continuous EEG but neurology decided against it for now. He has been found with metabolic derangements and and methamphetamine positive. He was intubated to protect airway. Very difficult to sedate. Currently on propofol drip as well as Versed and fentanyl high-dose. Initially was hypotensive but current systolic blood pressure is 132 after dialysis, 2 L taken off emergently. Currently patient is awake and following commands. Not had any seizures since yesterday. 08/20/2025 On propofol 50, fentanyl 125 and Versed 3. Trying to climb out of bed. Tolerating ventilator well otherwise. 08/21/2025 On Precedex 0.6. Versed 2 Fentanyl at 100 propofol at 60. Still awake trying to sit up and climb out of bed tolerating ventilator well. Good cuff leak Review of systems unobtainable patient is intubated Vitals/I&O/Wt Last Vital Signs Temp 98.7 F 08/21/25 04:00 Pulse 73 08/21/25 09:00 Resp 16 08/21/25 11:42 BP 178/123 08/21/25 11:59 Pulse Ox 100 08/21/25 11:42 O2 Del Method Mechanical Ventilation 08/21/25 04:00 O2 Flow Rate 40 08/18/25 02:15 FiO2 30 08/21/25 11:42 08/20/25 08/21/25 08/21/25 22:59 06:59 14:59 Intake Total 1330.524 / 1463.956 455.870 / 1919.826 146.212 / 146.212 Balance 1330.524 / 1463.956 455.870 / 1919.826 146.212 / 146.212 Weight last 48 hrs Weight 110 lb 3.698 oz Weight 104 lb 11.513 oz Weight 106 lb 14.787 oz Physical Exam 2 Narrative: Per RN General: Intubated, awake agitated trying to climb out of bed HEENT: EOMI Pulmonary: CTAB Cardiovascular: rrr, nl s1s2, Abdomen: soft, nt, nd, no r/g, Extremities: no edema Neurologic: grossly intact Agree with above exam Data 08/21/25 03:29 08/21/25 03:29 Micro: Microbiology 08/17/25 21:14 Blood Culture - Preliminary Blood Staphylococcus aureus 08/18/25 05:30 Urine Culture - Final Urine Catheterized A&P Assessment and plan 1. Substance abuse: 2. Hypertensive urgency: 3. ESRD on dialysis: 4. Noncompliance with renal dialysis: Plan: # Acute hypoxemic respiratory failure most likely secondary to pulmonary edema -most likely secondary to acute pulmonary edema due to missed dialysis sessions. Vancomycin and Zosyn was started empirically for presumed pneumonia. Stop vancomycin today. Chest x-ray looks like pulmonary vascular congestion. Chest x-ray looks improved especially on the right lower lobe today 08/21/2025. Awaiting sputum cultures. Currently growing mozzarella catarrhalis 08/19/2025. Continue ventilator support and wean as tolerated. Continue bronchopulmonary hygiene bronchodilator therapy SBT tomorrow and plan to extubate today. # Status epilepticus-no prior history of seizures back to polysubstance abuse -CT head reviewed 08/17/2025-negative for any acute events. - Status epilepticus was most likely secondary to polysubstance use. Continuous EEG may be needed if he has any more recurrence episodes - Stat CT head for any new neurochanges. As needed Ativan 2 mg for any new onset seizures, plan to repeat in 5 minutes if they recur. # Polysubstance abuse history/meth amphetamine abuse. Currently positive for opiates and benzos. - Watch for withdrawals. Stop Seroquel 100 mg p.o. twice daily -Continue Oxy IR at 10 mg p.o. 3 times daily along with Ativan 2 mg p.o. 3 times daily for agitation control - Wean off fentanyl drip as well as propofol. # Hypertensive urgency - Resolved after dialysis # Hypekalemia Status post dialysis. 3 L out. Appreciate nephrology help. # Acute on chronic renal failure on chronic hemodialysis Nephrology following appreciate help. Continue dialysis sessions # Medical noncompliance # Hyponatremia. Sodium was 135 today. # Agitation issues secondary to methamphetamine withdrawal # Hyperglycemia-insulin sliding scale medium. Avoid hypoglycemia. Maintain blood sugars between 140-180. # Sedation-continue Versed as needed and fentanyl drip and propofol drip and wean as tolerated. Seroquel Ativan Oxy IR added. Wean off propofol drip and use Precedex along with Versed drip. Wean off fentanyl drip as well # Nutrition-continue tube feeds, monitor BMs # DVT GI prophylaxis-heparin SCDs and famotidine. # Goals of care-no family at bedside # CODE STATUS- FULL # Disposition-Will need full ICU support follow-up The high probability of a clinically significant, sudden or life threatening deterioration of the patient's [Respiratory, cardiac and renal] system(s) required my full and direct attention, intervention and personal management. The critical care time is as shown. This time is in addition to time spent performing any reported procedures but includes the following: [x] Data and vital sign review and interpretation [x] Patient assessment, examination and intervention [x] Documentation [x] Medication orders and management Critical Care Time (min): 35 Telemedicine Consent Patient seen today via Telemedicine by agreement and consent of patient.? Telemedicine technology used during the visit includes audio and, as available, review of images.? The patient encounter is appropriate and reasonable under the circumstances given the patient?s particular presentation at this time.? The patient has been advised of the potential risks and limitations of this mode of treatment (including but not limited to the absence of in-person examination) and has agreed to be treated in a remote fashion in spite of them.? Any, and all, of the patient?s/patient?s family?s questions on this issue have been answered and I have made no promises or guarantees to the patient. The patient has also been advised to contact this office for worsening conditions or problems, and seek emergency medical treatment and/or call 911 if the patient deems either necessary PDMP PDMP Reviewed: Not Reviewed Attestations 2 Medical Necessity Statement*: Intubated intubated on the vent Coding Level of Care Code Critical Care >/= 30 minutes Diagnoses Substance abuse F19.10 Hypertensive urgency I16.0 ESRD on dialysis N18.6; Z99.2 Noncompliance with renal dialysis Z91.158
--- NOTE | 2025-08-21 12:54 | PC.SOCIAL ---
IMM Updated Pt is intubated & not expected to d/c within the next 24-48hrs. Provided pt a copy. Initialed, dated, & timed a copy & placed in chart.
--- NOTE | 2025-08-21 16:11 | P.PN_ITS ---
Subjective 2 Subjective: Patient has been extubated today. Tolerated extubation. Alert awake and oriented afterwards. Medications: Reviewed: Yes Vitals/I&O/Wt Last Vital Signs Temp 98.7 F 08/21/25 04:00 Pulse 79 08/21/25 14:00 Resp 9 L 08/21/25 15:31 BP 182/122 08/21/25 14:00 Pulse Ox 100 08/21/25 15:31 O2 Del Method Mechanical Ventilation 08/21/25 04:00 O2 Flow Rate 40 08/18/25 02:15 FiO2 30 08/21/25 15:31 08/21/25 08/21/25 08/21/25 06:59 14:59 22:59 Intake Total 455.870 / 1919.826 146.212 / 146.212 Balance 455.870 / 1919.826 146.212 / 146.212 Weight last 48 hrs Weight 50 kg Weight 47.5 kg Weight 48.5 kg Data 08/21/25 03:29 08/21/25 03:29 Micro: Microbiology 08/17/25 21:14 Blood Culture - Preliminary Blood Staphylococcus aureus 08/18/25 05:30 Urine Culture - Final Urine Catheterized A&P Assessment and plan 1. Status epilepticus: 2. Sepsis: 3. Acute hyperkalemia: 4. Missed dialysis: 5. Malignant hypertension: 6. Polysubstance abuse: 7. Noncompliance with medication regimen: 8. Staphylococcus aureus bacteremia with sepsis: Plan: August 21, 2025 Chart reviewed. 25-year-old male with a past medical history of CKD on dialysis, reportedly noncompliant with medication. Additionally with a history of methamphetamine abuse. He was admitted to the hospital on August 18, 2025 after complaining of a headache and when found by EMS was noted to be seizing. He had a total of 4 seizures in the emergency room. He was intubated in view of status epilepticus. Seizures were thought to be related to metabolic encephalopathy, likely related to missed dialysis. Patient was successfully extubated today after a spontaneous breathing and weaning trial. He is currently alert awake and oriented x 3. No acute complaints. He denies any IV drug use after being extubated. Diagnosis of sepsis noted on admission. Blood culture showing MSSA from August 17, 2025. Subsequent blood culture from August 18, 2025 clear. Patient has been on piperacillin/tazobactam thus far. Discontinue Zosyn today. Changed to cefazolin 1 g IV every 24 hours for organism directed treatment or if MSSA septicemia. Echocardiogram ordered to assess for any vegetations. Dialysis access is AV fistula on the right arm. Denies any problems with the fistula access recently. No gross signs of cellulitis redness or fistula infection noted at this time. Patient will need at least 6 weeks of organism directed therapy, will aim for cefazolin 2 g IV with dialysis as outpatient. Encourage strict compliance with dialysis once discharged. Noted Moraxella catarrhalis on sputum cultures. Will add azithromycin with discontinuation of piperacillin/tazobactam. No current seizures noted. Patient awake alert oriented x 3. Plan for dialysis this afternoon. PDMP PDMP Reviewed: Not Reviewed Attestations 2 Medical Necessity Statement*: MSSA septicemia, changed to cefazolin today. Plan dialysis today. Extubated today. Coding Level of Care Code Acute Code for Chg Fwd High MDM includes number and complexity of problems actively addressed during encounter, amount and/or complexity of data reviewed/ordered and described risk of complication, morbidity or mortality of management as documented Diagnoses Status epilepticus G40.901 Sepsis A41.9 Acute hyperkalemia E87.5 Missed dialysis Malignant hypertension I10 Polysubstance abuse F19.10 Noncompliance with medication regimen Z91.148 Staphylococcus aureus bacteremia with sepsis A41.01
--- NOTE | 2025-08-21 16:33 | PC.NURSE ---
patient extubated By RT jovanni patient alert oriented and talking upon removal voice is weak breathing even and no non labored
[2025-08-21] MEDS: ceFAZolin 1,000 mg SDV 1000 MG IVP (17:43)
[2025-08-21] MEDS: diphenhydrAMINE 50 mg/mL SDV 1mL IVP (18:49)
[2025-08-21] MEDS: hyDRALAzine 20 mg/mL INJ 1 mL IVP (19:06)
--- NOTE | 2025-08-21 21:15 | PM.MISC ---
Miscellaneous Note Purpose of Documentation: Just called to the patient's bedside that he is threatening to leave AGAINST MEDICAL ADVICE while the dialysis procedure is going on. Patient is reaching out trying to pull the dialysis catheter from himself and he was stopped. He was telling the Dialysis nurse to stop the dialysis Note: I am putting the patient on a 96-hour hold because he is in danger to himself he is very weak and could not even ambulate. This time yesterday patient was still intubated vented only got extubated today not even up to 24 hours of extubation. Patient also trying to rip the dialysis catheter out does not make sense. When you tried to explain and talk to him he is not coordinating he is not making sense and he is not in any position to make a good decision for himself. His cognition is not good. He is now in 96-hour hold
[2025-08-22] VITALS (30 sets, daily range): BP systolic 132–189; BP diastolic 71–127; PULSE 84–102; RESP 18; TEMP 36.7–37.6; O2SAT 90–100
[2025-08-22] MEDS: pantoprazole 40 mg SDV IVP ×2 (00:09→23:54)
[2025-08-22] MEDS: heparin 5,000 unit/mL INJ 1 mL 5000 UNIT SUBCUT (00:09)
[2025-08-22] MEDS: oxyCODONE 5 mg IR Tab/Cap 10 MG PO ×3 (00:10→16:18)
[2025-08-22] MEDS: vancomycin 500 MG in sodium chloride 0.9% (plus) 100 ML 200 MG IV (00:17)
--- NOTE | 2025-08-22 00:52 | PC.NURSE ---
96 HH Pt was served with copy of 96 HH by this RN and security. Pt A&Ox3. Pt asked Does this start now or when the Dr told me? Pt educated that the 96 HH had started when the physician stated it at bedside and this was just the Right form.
--- NOTE | 2025-08-22 01:20 | PC.NURSE ---
Addendum entered by Sophia Kruger RN 08/22/25 01:21: Witnessed waste with EUGENIA Montague Original Note: 65mL Propofol, 45mL Versed, and 220mL Fentanyl wasted from leftover sedation medications in the room. Witnessed by EUGENIA Cortes.
--- NOTE | 2025-08-22 04:22 | PC.NURSE ---
At beginning of shift pt mother was in hallway visibly upset. Stated pt was in room and was verbally abusing her and she felt like her presence was upsetting him further. Stated over the previous month that pt had became more and more angry and manipulative and she was hopeful that he could be seen by psychiatry and get help before he is discharged. She then went back to room and asked pt if she could come back in room and he gave consent. Pt behavior continued to escalate and mother came back out of room and stated she was going to go home but she was concerned for pt significant other as he was verbally abusing her as well. Made aware that visiting hours had ended 30 min prior and that especially considering patient was increasingly upset and hypertensive that visitors would be asked to leave. Upon entering room, significant other was informed of visiting policy, and kindly told pt goodbye and left. Pt started pointing his finger at this nurse and said I'm fucking leaving! You let her stay or I'll rip my dialysis lines out! Attempted to discuss that with his behavior escalation and anger that he needed to finish his dialysis and rest, but pt continued yelling and cursing at this nurse, repeatedly threatening to pull out dialysis lines and yelling that it was his right to he is fucking leaving AMA and he wants hospice . This nurse informed pt that he was under the influence of narcotics he had requested, therefore was not able to make competent decisions and would not be allowed to leave AMA until those drugs were out of his system. Pt argued that he takes them all the time and they don't even fucking work and nobody could fucking stop him . Pt then used left hand and grabbed his right arm over the dialysis lines attempting to pull them out. This nurse physically intervened and staff gently removed hand. Pt continued yelling and stated he wanted his significant other back, she was his support system. This nurse asked if significant other was to come back, if he would calm, do dialysis, and not continue arguing with her and rest. Stated he would do so. During escalation of behavior security contacted for standby, Dr. Cordero contacted to come to bedside, and powerhouse oiler contacted and came to unit. This nurse then contacted pt significant other and informed of behavior and that he agreed to calm down if she came back. She stated that she could not continue to argue with him tonight as that was what he would do, and she had to rest for work tomorrow or she would lose her job. She stated she had already had her hours cut due to having to care for him when he would threaten suicide at home. Shortly thereafter Dr. Cordero came to bedside and discussed pt behavior. Dr. Castilloa unable to reason with pt and continued to yell vulgar language and threatened self harm. She informed him at that time he was going to be 96 hour hold.
[2025-08-22] MEDS: LOSARTAN 100 MG TABLET PO (04:24)
[2025-08-22] MEDS: NIFEdipine ER (24 hr) 30 mg Tablet 90 MG PO (04:26)
--- NOTE | 2025-08-22 05:00 | PC.NURSE ---
Aprox. 20:40, this nurse entered the room for additional assessments, and overheard patient being verbally aggressive with mother and girlfriend at bedside. During assessment of the central line and providing education to patient and family regarding the patient's stay thus far, patient continued to escalate in his agitation. Patient than told his family members he would be leaving AMA if you are going to be like that . This nurse stepped out and advised charge nurse of the situation. Shortly after, this nurse was present with charge nurse conversing with the patient regarding leaving. Patient was at that time receiving dialysis treatment, and during the course of the conversation, threatened to and reached to pull out his dialysis access lines stating I don't want any fucking treatment . Dr. Cordero was notified and requested to come to bedside to see patient. While waiting the brief time for Dr. Cordero to arrive, the roll over loader did offer to stop treatment, and requested he give her a few minutes to properly stop treatment and discontinue his lines. Aprox. 21:00 this nurse was present with Dr. Cordero at bedside to evaluate patient. Patient was agitated and aggressive with Dr. Cordero, who was unable to explain to patient the danger of leaving AMA. The patient frequently interrupted and said I'm fucking leaving I know my rights and I have the right to in my bed . This nurse was also present when Dr. Cordero was advised patient that she would be placing him on a [address] Cordero further gave verbal orders to roll over loader to continue treatment. Shortly after, this nurse provided education on the rules on a 96 hour hold, such as limited phone call access and limited visitor hours. The patient seemed to understand and was overall less agitated, stating he just wants to sleep . Patient also finished his dialysis treatment without further threats of pulling his lines out mid-treatment.
--- NOTE | 2025-08-22 05:18 | PC.NURSE ---
During morning medication pass, this patient advised he could not take any of his pills in pudding or jello, as the CHILD NEUROLOGIST note suggests. This nurse provided education regarding limited options and the potential risks of aspiration given his weaker ability to swallow safely. Patient continued to refuse, and began saying I shouldn't fucking be here anyway and this is your fault that I might . Contacted Dr. Cordero in reference to the refusal of medications, and received orders to allow him some liquid during this med pass. This nurse preformed a nursing bedside swallow eval assessment, and patient seemed to tolerate liquids. Medication administration then continued with patient saying thanks for helping me .
[2025-08-22 08:34] LABS: Anion Gap 24.1 (5-19); Blood Urea Nitrogen 25 mg/dL (6-20); Calcium 9.3 mg/dL (8.5-10.5); Carbon Dioxide 22 mmol/L (22-29); Chloride 96 mmol/L (98-107); Creatinine Clr Calc Pharmacy 13.0134; Glucose 96 mg/dL (65-115); Osmolality Calculated 290 mOsm/kg (285-295); Potassium 4.1 mmol/L (3.5-5.1); Sodium 138 mmol/L (136-145)
--- NOTE | 2025-08-22 08:53 | PC.NURSE ---
Patient had bm in chair, refusing to be cleaned, refusing to cooperate with staff. this nurse informed patient of 96 hour hold and the need to cooperate for care, patient stated I know what I need, I have the right to go home, I have the right to go hospice if I want, that [place] doctor didn't give me those rights so she has a law suit on her hands, I can do what I want, she caused me to miss my dialysis today
--- NOTE | 2025-08-22 09:01 | P.PN_ITS ---
Subjective 2 Subjective: s/p HD yesterday extubated yesterday Medications: Reviewed: Yes Vitals/I&O/Wt Last Vital Signs Temp 98.0 F 08/22/25 04:00 Pulse 89 08/22/25 07:30 Resp 18 08/21/25 22:45 BP 167/114 08/22/25 08:51 Pulse Ox 94 08/22/25 01:30 O2 Del Method Nasal Cannula 08/21/25 20:00 O2 Flow Rate 2 08/21/25 20:00 FiO2 30 08/21/25 15:31 08/21/25 08/22/25 08/22/25 22:59 06:59 14:59 Intake Total 800 / 946.212 220 / 1166.212 Output Total 3000 / 3000 Balance -2200 / -2053.788 220 / -1833.788 Weight last 48 hrs Weight 45.8 kg Weight 49 kg Weight 50 kg Physical Exam 2 Narrative: extubated No acute distress S1-S2 regular rate and rhythm Lungs with crackles bilaterally Abdomen soft nontender Extremities with no edema Data 08/21/25 03:29 08/22/25 07:53 Micro: Microbiology 08/17/25 21:14 Blood Culture - Preliminary Blood Staphylococcus aureus 08/18/25 05:30 Urine Culture - Final Urine Catheterized A&P Assessment and plan 1. ESRD on hemodialysis: Plan: 1. End-stage renal disease: Patient missed hemodialysis and presented with severe hyperkalemia and also had seizures. Patient now intubated and sedated. Patient has multiple previous admission for noncompliance and missing dialysis. HD done yesterday , next hd tomorrow 2. Hypertensive urgency: Initial blood pressures 209/137, blood pressures have improved now 3. Hyperkalemia, emergent HD as above, improved 4. Altered mental status ,post ictal , improved 5. Recurrent seizures, patient with no prior history of seizures, 6. Anemia: Monitor RUBA when indicated 7. Acute resp filure , remains on vent Patient is seen and examined via audiovisual cart. Time spent 45 minutes. PDMP PDMP Reviewed: Not Reviewed Attestations 2 Medical Necessity Statement*: per medicine Coding Level of Care Code Acute Code for Chg Fwd Diagnoses ESRD on hemodialysis N18.6; Z99.2
--- NOTE | 2025-08-22 13:38 | PC.NURSE ---
Patient refusing all medications and care, refusing vital signs. Dr. Lange notified, psyc on unit
--- NOTE | 2025-08-22 14:29 | P.NPUHP_ITS ---
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 and using nicotine pouches but denies smoking cigarettes. He denies suicidal ideation. Patient is companied by his girlfriend and his CODE STATUS is always been full code confirmed with the patient on 06/05/2025 that he wants full CODE STATUS by Daron Ayala MD Patient admits to THC use Mental Status Exam 2 MSE Comments: This is a short, diminutive, white male, in hospital garb on with adequate grooming and eye contact. No abnormal movements except for mild psychomotor agitation. Mostly cooperative with exam in moderate distress. Some tattoos on exposed skin and noted torturous port in his right forearm. Speech was slightly decreased rate and volume. Mood described as frustrated and annoyed at being here and dealing with this stuff again; affect congruent . Thought process, linear and organized. Thought content: patient denied suicidal or homicidal ideation, there were no delusions reported or noted, patient denied any auditory or visual hallucinations. Attention and concentration appear intact, and memory appear mostly reliable but none were formally tested. He is alert and oriented times 3. Insight is fair and judgment and impulse control limited versus impaired. Vitals/I&O/Wt Last Vital Signs Temp 99.2 F 08/23/25 05:00 Pulse 98 08/22/25 21:04 Resp 22 H 08/23/25 00:03 BP 203/135 08/23/25 05:15 Pulse Ox 100 08/22/25 21:04 O2 Del Method Nasal Cannula 08/21/25 20:00 O2 Flow Rate 2 08/21/25 20:00 FiO2 30 08/21/25 15:31 08/22/25 08/22/25 08/23/25 14:59 22:59 06:59 Intake Total 200 / 200 Balance 200 / 200 Weight last 48 hrs Weight 45.8 kg Weight 49 kg Weight 50 kg Data NPU 08/21/25 03:29 08/22/25 07:53 A&P Assessment and plan 1. Other stimulant dependence, in remission: 2. Generalized anxiety disorder: 3. Acute anxiety: 4. Suicidal ideation: 5. Major depressive disorder, recurrent: 6. ESRD on hemodialysis: 7. Parent-child relational problem: Plan: This is a [age]-year-old, white male, with a long history of trauma, post- traumatic stress disorder, addiction, anxiety, and loss, who presents with recent missing of dialysis appointments with his comment to his history with a recent attempt to disrupt his dialysis and medication administration leading to him being put on a 96-hour hold. RECOMMENDATION AND PLAN: 1. Continue current medication. 2. Agree with current treatment. 3. At this point would not plan for a psychiatric admission but will continue to follow and evaluate based on his progress. 4. No credible lethality noted and he is not in need of acute psychiatric care. However he is prone to being very histrionic and emotive when he is frustrated and will often say things that later he takes back. He acknowledges that he made the statements that led to the doctor's appropriate placement on a 96-hour hold but now is able to communicate that this was an expression of frustration about the situation and that he does not want to and that he does has challenges getting to dialysis and challenges making it completely through the often 3-hour process. Explained to him however that in this circumstance if he were to be resistant to these treatments that he is agreed to I would agree with him being compelled to and this might also indicate a need for an inpatient mental health stay. 5. Will continue to follow. PDMP PDMP Reviewed: Not Reviewed Involuntary Hold Information 2 96 Hour Hold: 96 Hour Involuntary Admission: Yes Attestations NPU 2 Medical Necessity Statement*: N/A. Please see primary team note for medical necessity but agree with continued inpatient medical treatment in the ICU with continued psychiatric involvement. 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
--- NOTE | 2025-08-22 16:00 | P.PN_ITS ---
Subjective 2 Subjective: Patient was agitated overnight and wanted to leave AMA. Reportedly he was pulling at his dialysis lines. He was disoriented at the time and was placed on a 96-hour hold. Patient is awake alert oriented this morning however refusing his medications this afternoon. He has a history of severe depression. Psychiatry service has been consulted. Medications: Reviewed: Yes Vitals/I&O/Wt Last Vital Signs Temp 98.0 F 08/22/25 04:00 Pulse 89 08/22/25 07:30 Resp 18 08/21/25 22:45 BP 167/114 08/22/25 11:30 Pulse Ox 94 08/22/25 01:30 O2 Del Method Nasal Cannula 08/21/25 20:00 O2 Flow Rate 2 08/21/25 20:00 FiO2 30 08/21/25 15:31 08/22/25 08/22/25 08/22/25 06:59 14:59 22:59 Intake Total 220 / 1166.212 Balance 220 / -1833.788 Weight last 48 hrs Weight 45.8 kg Weight 49 kg Weight 50 kg Physical Exam 2 Narrative: General: No acute distress, AO x3 HEENT: PERRLA, pupils bilaterally equal and reactive, pallors not present Chest: Normal vesicular breath sounds, no added sounds, equal good air entry bilaterally CVS: S1-S2 regular, no murmurs, no tachycardia, no gallops, no rubs Abdomen: Soft, nontender, no organomegaly, bowel sounds present Neuro: No focal deficits, no facial deformity, AO x3, power 5/5 in all limbs Data 08/21/25 03:29 08/22/25 07:53 A&P Assessment and plan 1. Status epilepticus: 2. Sepsis: 3. Acute hyperkalemia: 4. Missed dialysis: 5. Malignant hypertension: 6. Polysubstance abuse: 7. Noncompliance with medication regimen: 8. Staphylococcus aureus bacteremia with sepsis: Plan: August 21, 2025 Chart reviewed. 25-year-old male with a past medical history of CKD on dialysis, reportedly noncompliant with medication. Additionally with a history of methamphetamine abuse. He was admitted to the hospital on August 18, 2025 after complaining of a headache and when found by EMS was noted to be seizing. He had a total of 4 seizures in the emergency room. He was intubated in view of status epilepticus. Seizures were thought to be related to metabolic encephalopathy, likely related to missed dialysis. Patient was successfully extubated today after a spontaneous breathing and weaning trial. He is currently alert awake and oriented x 3. No acute complaints. He denies any IV drug use after being extubated. Diagnosis of sepsis noted on admission. Blood culture showing MSSA from August 17, 2025. Subsequent blood culture from August 18, 2025 clear. Patient has been on piperacillin/tazobactam thus far. Discontinue Zosyn today. Changed to cefazolin 1 g IV every 24 hours for organism directed treatment or if MSSA septicemia. Echocardiogram ordered to assess for any vegetations. Dialysis access is AV fistula on the right arm. Denies any problems with the fistula access recently. No gross signs of cellulitis redness or fistula infection noted at this time. Patient will need at least 6 weeks of organism directed therapy, will aim for cefazolin 2 g IV with dialysis as outpatient. Encourage strict compliance with dialysis once discharged. Noted Moraxella catarrhalis on sputum cultures. Will add azithromycin with discontinuation of piperacillin/tazobactam. No current seizures noted. Patient awake alert oriented x 3. Plan for dialysis this afternoon. August 22, 2025 Patient was able to complete dialysis last evening. Next dialysis is due tomorrow. He is refusing p.o. medications this afternoon. He was placed on a 96-hour hold last evening. Psychiatry service consulted. Last febrile on 08/20/2025 at midnight. Has been afebrile since then. Follow-up blood culture from August 18, 2025 remains negative. Continue Ancef 1 g IV every 24 hours. Echocardiogram reviewed, no signs of gross vegetation on TTE. Plan for 6 weeks of IV cefazolin 2 g after dialysis on HD days. Remove Bill catheter today. PDMP PDMP Reviewed: Not Reviewed Attestations 2 Medical Necessity Statement*: 96-hour hold, psychiatry assessment, con tinuing IV medication. Coding Level of Care Code Acute Code for Chg Fwd High MDM includes number and complexity of problems actively addressed during encounter, amount and/or complexity of data reviewed/ordered and described risk of complication, morbidity or mortality of management as documented Diagnoses Status epilepticus G40.901 Sepsis A41.9 Acute hyperkalemia E87.5 Missed dialysis Malignant hypertension I10 Polysubstance abuse F19.10 Noncompliance with medication regimen Z91.148 Staphylococcus aureus bacteremia with sepsis A41.01
[2025-08-22] MEDS: ceFAZolin 1,000 mg SDV 1000 MG IVP (16:14)
--- NOTE | 2025-08-22 16:18 | USCV_ITS ---
Vance Sainz Age: 25 Gender: M : 2000 Exam Date: 08/22/2025 03:32 Ordering Phys: Melissa Lange MD Technologist: EVIN [place] [facility] [place]ication: assess for endocarditis, Staph aureus bacteremia, polysubstance abuse BP: 164 / 93 HR: 90 Rhythm: Sinus Technical Quality: Adequate MEASUREMENTS (Male / Female) Normal Values 2D ECHO LV Diastolic Diameter PLAX 4.4 cm 4.2 - 5.9 / 3.9 - 5.3 cm IVS Diastolic Thickness 1.2 cm 0.6 - 1.0 / 0.6 - 0.9 cm IVS Systolic Thickness 1.7 cm LVPW Diastolic Thickness 1.2 cm 0.6 - 1.0 / 0.6 - 0.9 cm LVPW Systolic Thickness 2.0 cm LVOT Diameter 1.8 cm LV Ejection Fraction 2D Teich 61.8 % LV Ejection Fraction MOD 4C 71.0 % LV Ejection Fraction MOD 2C 60.7 % LV Ejection Fraction 2C AL 62.0 % LA Diameter 2.8 cm Aorta at Sinotubular Diameter 2.6 cm IVC Diameter 1.6 cm M-MODE LA Ao Ratio MM 1.1 AV Cusp Separation MM 2.0 cm DOPPLER AV Peak Velocity 158.0 cm/s LVOT Peak Velocity 154.0 cm/s AV Area Cont Eq vti 3.9 cm squared AV Area Cont Eq pk 2.6 cm squared MV Peak Velocity 115.0 cm/s MV Area PHT 5.6 cm squared Mitral E to A Ratio 0.9 TV Peak Velocity 211.3 cm/s TR Peak Velocity 214.0 cm/s TR Peak Gradient 18.3 mmHg TV Peak E Velocity 69.0 cm/s PV Peak Velocity 124.0 cm/s FINDINGS Left Ventricle Normal left ventricular size and systolic function, EF 62%.mild left ventricular hypertrophy. No regional wall motion abnormalities. Grade I/IV diastolic dysfunction (abnormal relaxation filling pattern), normal to mildly elevated filling pressures. Right Ventricle Normal right ventricular size and systolic function. Right Atrium Normal right atrial size. Left Atrium Normal left atrial size. IA Septum Normal appearance of the interatrial septum. Mitral Valve No masses or vegetations noted Aortic Valve No masses or vegetations noted Tricuspid Valve No masses or vegetations noted.trace tricuspid valve regurgitation. Pulmonic Valve Minimally thickened . No masses Pericardium No pericardial effusion. Aorta Normal aortic annulus size. IVC Normal inferior vena cava. CONCLUSIONS Normal left ventricular size and systolic function, EF 62%.mild left ventricular hypertrophy. No regional wall motion abnormalities. Grade I/IV diastolic dysfunction (abnormal relaxation filling pattern), normal to mildly elevated filling pressures. Normal cardiac chamber sizes. No intracardiac masses or vegetations. Trace tricuspid valve regurgitation. Compared to the study from 07/18/2025, there may not be a significant change Dr Nuha Garcia MD FAC (Electronically Signed) Final Date: 22 August 2025 08:48 S
--- NOTE | 2025-08-22 19:43 | PC.NURSE ---
2100 dose of senna held due to patient having frequent bowel movements today.
--- NOTE | 2025-08-22 21:37 | PC.NURSE ---
Patient refusing continuous and intermittent cardiac monitoring. He was agreeable to a pulse ox and blood pressure reading prior to administration of 2100 medications. Educated patient on importance of monitoring. He was calm but still refusing.
[2025-08-23] VITALS (46 sets, daily range): BP systolic 120–206; BP diastolic 82–135; PULSE 72–117; RESP 11–27; TEMP 36.6–37.6; O2SAT 95–100
[2025-08-23] MEDS: oxyCODONE 5 mg IR Tab/Cap 10 MG PO ×3 (00:03→17:22)
--- NOTE | 2025-08-23 02:33 | PC.NURSE ---
Provider notified that patient requesting Benadryl to help rest and relax. Provider gave a one time order of 50mg IVP diphehydramine. Order placed. See MAR
[2025-08-23] MEDS: diphenhydrAMINE 50 mg/mL SDV 1mL IVP ×2 (02:37→17:22)
[2025-08-23] MEDS: hyDRALAzine 20 mg/mL INJ 1 mL IVP (02:53)
--- NOTE | 2025-08-23 03:03 | PC.NURSE ---
Addendum entered by ABIMAEL Roldan 08/23/25 05:06: At approximately 0415 PSA notified this nurse that patient was extremely agitated about being unable to rest. This nurse entered patients room who was sitting up in bed. He was visibly extremely agitated and said I don't give a fuck what anyone says I am getting my people and going home. You can call security, the doctors, or whoever the fuck you want but I am going to my house, to sleep in my bed, and I will set my own dialysis up at my clinic. You guys are so loud and disrespectful and I can hear every fucking word that is said. This nurse again attempted to listen to patients concerns. He continued to be belligerent, demand he was leaving, and said he wanted an regulatory attorney. He made more threats of legal action against staff and facility. Attempts to continue to verbally calm patient and explain it is understandable that there is noise, but there are other patients, some who are hard of hearing, as well morning med pass and morning lab draws. Patient continued to get louder and switch house operator entered patients room. Patient repeated all his same problems to her. Patient given options for this nurse to contact provider again and would also administer his 0500 medications that may help as well. Patient was still demanding to leave, but did want this nurse to contact provider and ask for pain medication as well as another sleep aide. Patient did refuse morning fluoxetine and upset it was on his home medication list. This nurse has made numerous attempts to contact provider but the trimming machine set up operator continues to report that providers phone will not ring. Also attempted to voalte proivder as well. Provider called unit while note is in progress. She gave telephone orders for one time dose of 4mg IVP Morphine. Order placed. See MAR Original Note: This nurse heard patients voice escalating in his room while talking with the PSA. Upon entering the room, patient was very agitated. He was upset over not being able to sleep and stating the IV in his left forearm was no good He stated 'I will not be getting fucking dialysis tomorrow. I'm going home and Id like to see somebody try to fucking stop me. They can try to give me shots to make me stay but I am going to [facility] this hospital and that black doctor, the female one. I will get a lot of money from this and Ill live how I want to the rest of my life. My IV is bad, they cant put me on a 96 hour hold and I need to heal but I cant get any fucking sleep He then stated my bed has not been made all damn day either and I have never had worse care. In an attempt to deescalate the situation, this nurse attempted to empathize with patients frustrations. This nurse informed patient that I would contact the provider with his request for something to help him rest, but educated patient on the importance of his mentation being as clear as possible due to his extreme hypertension, which could lead to stroke, his history of seizures and to notice any neurological changes as soon as possible, so while I was willing to ask, I could not guarantee any orders would be given. He stated Ativan does not calm him down, but the Benadryl he gets before dialysis calms him and helps him rest. This nurse also asked if I could remove the coban from his IV site to look closer at the site. He was agreeable. Educated patient that some medications are irritating to the vein and so it could have just been the medication being administered. He then became agitated again and began to raise his voice stating This is going to give me a worse infection and no one fucking cares. Do you just think Im a liar and I dont know? This nurse explained to patient I was not questioning him, but educated him on the importance of having IV access in emergent situations as well as if there was a problem with the IV, we may need to take further measures to address the issue. This nurse also explained I needed to be able to document a reason for removal. Patient seemed to be understanding of this. This nurse stepped out and notified provider who gave patient a one time order for 50mg IVP diphehydramine. Updated patient that he had a one time order for the diphehydramine. This nurse and PSA also reoriented patient that new linens were placed on his bed at the start of shift change, as he was sitting in the recliner. Patient again became agreeable to allowing this nurse to remove coban and slowly flush IV in left arm. The site had no redness, was not warm, and no swelling. After assessing the site, patient agreed to allow this nurse to flush IV. Upon flushing patient denied pain and stated maybe it was the antibiotic that burned. This nurse told patient I do not see any issues with the IV, but if it hurts and you would like it removed I will remove it. Patient stated I think its okay and you can leave it in. This nurse then educated patient on importance of monitoring blood pressure and he was agreeable to allowing it. PRN Hydralazine administered as blood pressure parameters allowed for it. New swab caps placed on patients central line and left peripheral IV. Patient had calmed significantly. PSA present during interaction.
[2025-08-23] MEDS: NIFEdipine ER (24 hr) 30 mg Tablet 90 MG PO (04:48)
[2025-08-23] MEDS: LOSARTAN 100 MG TABLET PO (04:48)
[2025-08-23] MEDS: morphine 4 mg/mL SDV 1 mL IVP (06:17)
--- NOTE | 2025-08-23 07:05 | PC.NURSE ---
Shift report received from EUGENIA Call. Removed phone with cord from bedside for safety. Pt's belongings now in locker ICU 9.
--- NOTE | 2025-08-23 07:23 | P.NPUPN_ITS ---
Subjective NPU 2 Subjective: Patient presented today reporting that he doing fine. We discussed the plan for discharge and he agreed he will be following up as expected with dialysis tomorrow. He also really will be taking his medication as prescribed and denied any lethality. He denied any side effects to his medication. Mental Status Exam 2 MSE Comments: This is a short, diminutive, white male, in hospital garb on with adequate grooming and eye contact. No abnormal movements except for mild psychomotor agitation. Mostly cooperative with exam in moderate distress. Some tattoos on exposed skin and noted torturous port in his right forearm. Speech was slightly decreased rate and volume. Mood described as better; affect congruent . Thought process, linear and organized. Thought content: patient denied suicidal or homicidal ideation, there were no delusions reported or noted, patient denied any auditory or visual hallucinations. Attention and concentration appear intact, and memory appear mostly reliable but none were formally tested. He is alert and oriented times 3. Insight is fair and judgment and impulse control limited versus impaired. Vitals/I&O/Wt Last Vital Signs Temp 99.2 F 08/23/25 05:00 Pulse 98 08/22/25 21:04 Resp 18 08/23/25 06:17 BP 203/135 08/23/25 05:15 Pulse Ox 100 08/22/25 21:04 O2 Del Method Nasal Cannula 08/21/25 20:00 O2 Flow Rate 2 08/21/25 20:00 FiO2 30 08/21/25 15:31 08/22/25 08/23/25 08/23/25 22:59 06:59 14:59 Intake Total 200 / 200 Balance 200 / 200 Weight last 48 hrs Weight 46.2 kg Weight 45.8 kg Weight 49 kg Data NPU 08/23/25 09:37 08/23/25 09:37 A&P Assessment and plan 1. Other stimulant dependence, in remission: 2. Generalized anxiety disorder: 3. Acute anxiety: 4. Suicidal ideation: 5. Major depressive disorder, recurrent: 6. ESRD on hemodialysis: 7. Parent-child relational problem: Plan: This is a [age]-year-old, white male, with a long history of trauma, post- traumatic stress disorder, addiction, anxiety, and loss, who presents with recent missing of dialysis appointments with his comment to his history with a recent attempt to disrupt his dialysis and medication administration leading to him being put on a 96-hour hold. RECOMMENDATION AND PLAN: 1. Continue current medication. 2. Agree with current treatment. 3. At this point would not plan for a psychiatric admission but will continue to follow and evaluate based on his progress. 4. No credible lethality noted and he is not in need of acute psychiatric care. However he is prone to being very histrionic and emotive when he is frustrated and will often say things that later he takes back. He acknowledges that he made the statements that led to the doctor's appropriate placement on a 96-hour hold but now is able to communicate that this was an expression of frustration about the situation and that he does not want to and that he does has challenges getting to dialysis and challenges making it completely through the often 3-hour process. 5. Agree with discharge. Reconsult if there is additional questions. PDMP PDMP Reviewed: Not Reviewed Involuntary Hold Information 2 96 Hour Hold: 96 Hour Involuntary Admission: Yes Attestations NPU 2 Medical Necessity Statement*: N/A. Please see primary team note for medical necessity. 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
[2025-08-23 09:48] LABS: Hematocrit 26.0 % (37-53); Hemoglobin 8.30 g/dL (11.27-16.99); Mean Corpuscular HGB Conc 31.9 g/dL (30-55); Mean Corpuscular Hemoglobin 30.3 pg (27-33); Mean Corpuscular Volume 94.9 fl (82-101); Nucleated Red Blood Cells % 0 %; Platelet Count 184 10^3/cmm (157-399); Red Blood Count 2.74 10^6/uL (3.85-5.65); White Blood Count 8.39 10^3/uL (3.29-11.43)
--- NOTE | 2025-08-23 10:00 | PM.PN ---
Subjective Subjective: The patient was seen and examined. Patient wants go home. He excepts dialysis today. He is upset. Denies nausea vomiting or shortness of breath or chest pain. Medications: Reviewed: Yes Medication Review Details: Current Medications Acetaminophen (Acetaminophen 325 Mg Tablet) 650 mg PO Q6H PRN PRN Reason: MILD PAIN OR INCREASE TEMP Last Admin: 08/19/25 20:07 Dose: 650 mg Azithromycin (Azithromycin 250 Mg Tablet) 500 mg PO DAILY [facility]; Protocol Last Admin: 08/23/25 04:49 Dose: 500 mg Cefazolin Sodium (Cefazolin 1,000 Mg Sdv) 1,000 mg IVP Q24H [facility]; Protocol Last Admin: 08/22/25 16:14 Dose: 1,000 mg Clonidine HCl (Clonidine 0.1 Mg Tablet) 0.2 mg PO TID [facility] Last Admin: 08/23/25 04:47 Dose: 0.2 mg Diphenhydramine HCl (Diphenhydramine 50 Mg/Ml Sdv 1ml) 50 mg IVP ONCE PRN PRN Reason: ITCHING Last Admin: 08/21/25 18:49 Dose: 50 mg Docusate Sodium (Docusate Sodium 100 Mg Capsule) 100 mg PO BID [facility] Last Admin: 08/23/25 04:54 Dose: Not Given Epoetin Ji-epbx (Epoetin Ji-Epbx 10,000 Unit/Ml Sdv (Esrd)) 10,000 unit SUBCUT NOW [facility] Last Admin: 08/21/25 09:04 Dose: 10,000 unit Fluoxetine HCl (Fluoxetine 10 Mg Capsule) 10 mg PO DAILY [facility] Last Admin: 08/23/25 04:53 Dose: Not Given Heparin Sodium (Porcine) (Heparin 5,000 Unit/Ml Inj 1 Ml) 5,000 unit SUBCUT Q12H [facility] Last Admin: 08/23/25 00:03 Dose: Not Given Hydralazine HCl (Hydralazine 20 Mg/Ml Inj 1 Ml) 20 mg IVP Q6H PRN PRN Reason: Systolic Greater than 200 Last Admin: 08/23/25 02:53 Dose: 20 mg Hydralazine HCl (Hydralazine 50 Mg Tablet) 100 mg PO TID [facility] Last Admin: 08/23/25 04:48 Dose: 100 mg Dextrose (D10w) 250 mls @ 1,000 mls/hr IV PRN PRN PRN Reason: HYPOGLYCEMIA Last Infusion: 08/18/25 07:22 Dose: Infused Sodium Chloride (Sodium Chloride 0.9%) 1,000 mls @ 0 mls/hr IV .Q0M PRN PRN Reason: hypotension or symptomatic Albumin Human (Albumin) 12.5 gm in 50 mls @ 60 mls/hr IV PRN PRN PRN Reason: Hypotension and/or symptomatic Sodium Chloride (Sodium Chloride 0.9%) 1,000 mls @ 0 mls/hr IV .Q0M PRN PRN Reason: hypotension or symptomatic Albumin Human (Albumin) 12.5 gm in 50 mls @ 60 mls/hr IV PRN PRN PRN Reason: Hypotension and/or symptomatic Dexmedetomidine/Sodium Chloride (Precedex) 400 mcg in 100 mls @ 0 mls/hr IV .Q0M [facility]; Protocol Last Titration: 08/21/25 06:35 Dose: 0.6 mcg/kg/hr, 7.13 mls/hr Sodium Chloride (Sodium Chloride 0.9%) 1,000 mls @ 0 mls/hr IV .Q0M PRN PRN Reason: hypotension or symptomatic Albumin Human (Albumin) 12.5 gm in 50 mls @ 60 mls/hr IV PRN PRN PRN Reason: Hypotension and/or symptomatic Labetalol HCl (Labetalol 200 Mg Tablet) 300 mg PO BID [facility] Last Admin: 08/23/25 04:48 Dose: 300 mg Lorazepam (Lorazepam 2 Mg Tablet) 2 mg PO Q8H PRN PRN Reason: ANXIETY Last Admin: 08/23/25 04:47 Dose: 2 mg Lorazepam (Lorazepam 2 Mg/Ml Inj 1 Ml) 2 mg IVP Q5M PRN PRN Reason: SEIZURES Losartan Potassium (Losartan 100 Mg Tablet) 100 mg PO DAILY [facility] Last Admin: 08/23/25 04:48 Dose: 100 mg Nifedipine (Nifedipine Er (24 Hr) 30 Mg Tablet) 90 mg PO DAILY [facility] Last Admin: 08/23/25 04:48 Dose: 90 mg Oxycodone HCl (Oxycodone 5 Mg Ir Tab/Cap) 10 mg PO Q8H [facility] Last Admin: 08/23/25 09:26 Dose: 10 mg Pantoprazole Sodium (Pantoprazole 40 Mg Sdv) 40 mg IVP Q24H [facility] Last Admin: 08/22/25 23:54 Dose: 40 mg Prednisone (Prednisone 5 Mg Tablet) 5 mg PO DAILY [facility] Last Admin: 08/23/25 04:47 Dose: 5 mg Senna (Sennosides 8.6 Mg Tablet) 17.2 mg PO BEDTIME [facility] Last Admin: 08/22/25 19:43 Dose: Not Given Vitals/I&O/Wt Last Vital Signs Temp 98.7 F 08/23/25 07:30 Pulse 79 08/23/25 07:30 Resp 18 08/23/25 06:17 BP 148/104 08/23/25 07:00 Pulse Ox 96 08/23/25 07:30 O2 Del Method Room Air 08/23/25 07:30 O2 Flow Rate 2 08/21/25 20:00 FiO2 30 08/21/25 15:31 08/22/25 08/23/25 08/23/25 22:59 06:59 14:59 Intake Total 200 / 200 0 / 0 Output Total 0 / 0 Balance 200 / 200 0 / 0 Weight last 48 hrs Weight 46.2 kg Weight 45.8 kg Weight 49 kg Physical Exam Narrative: Patient is comfortable in bed no apparent distress blood pressure elevated HEENT normocephalic atraumatic. Neck is supple no JVP no carotid bruits. Lungs clear to auscultation bilaterally. Heart is regular positive S1-S2. Abdomen is soft nontender nondistended positive bowel sounds. Extremities no edema. He has a right upper extremity AV fistula with a thrill and bruit. Neuro awake alert oriented moves all extremities. Patient was seen examined using audiovisual equipment with the aid of a nurse. Data 08/23/25 09:37 08/22/25 07:53 A&P Assessment and plan 1. ESRD on hemodialysis: 25-year-old man history of ESRD on dialysis also history of methamphetamine use. Patient was admitted with seizures. Patient had bacteremia with MSSA patient has been improving with dialysis and antibiotics. Unfortunately patient missed his dialysis as an outpatient and presented with uremic symptoms and hyperkalemia. Also with hypertensive urgency. Echocardiogram had grade 1 out of 4 diastolic dysfunction and no pericardial effusion. ESRD-plan for dialysis today. Potassium metabolic acidosis albumin are well improved. Hyperphosphatemia monitor with dialysis and also with binders. Anemia with very high ferritin in June. Once blood pressure improves would give Epogen. Antibiotics as per medical team. Patient wants to go home. Case discussed in detail with the patient. Patient was seen and examined using audiovisual equipment with aid for nurse. This was a telehealth visit. The patient consents to telehealth entering the dialysis. Plan: See above PDMP PDMP Reviewed: Not Reviewed Attestations Medical Necessity Statement*: Per medical team, patient has ESRD hypertension and a MSSA bacteremia. Time Spent in Patient Care: 16 - 35 minutes (>than 50% of time spent in counselling and/or direct pt care on unit). Coding Level of Care Code Acute Code for Chg Fwd Diagnoses ESRD on hemodialysis N18.6; Z99.2
[2025-08-23 10:11] LABS: Alanine Aminotransferase 11 U/L (0-41); Albumin Level 4.0 g/dL (3.5-5.2); Alkaline Phosphatase 90 U/L (40-130); Anion Gap 24.5 (5-19); Aspartate Amino Transferase 25 U/L (0-40); Blood Urea Nitrogen 44 mg/dL (6-20); Calcium 9.3 mg/dL (8.5-10.5); Carbon Dioxide 21 mmol/L (22-29); Chloride 99 mmol/L (98-107); Creatinine Clr Calc Pharmacy 9.1537; Globulin 2.5 g/dL (1.3-4.6); Glucose 94 mg/dL (65-115); Osmolality Calculated 301 mOsm/kg (285-295); Potassium 4.5 mmol/L (3.5-5.1); Sodium 140 mmol/L (136-145); Total Protein 6.5 g/dL (6.6-8.7)
--- NOTE | 2025-08-23 10:54 | PC.NURSE ---
Pt cooperative and calm. 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 He continues he wants to incorporate honey into his health foods. He wants then to brig them to [employer] so they can have healthy snacks. He then stated he wants to come in to [employer] and volunteer to help them. So the people have some one to help them. He stated he realized he needed to do better for himself. HE wants to be a resource for his community. I am asked all the time about my fistula and do I recommend one. People asked me all the time about this. I could be a good resource for them to protect their nondenominational. But I need to take care of mine too.
--- NOTE | 2025-08-23 12:38 | PC.NURSE ---
1300 Medications: pt refused the heparin sub q. He requested to defere the PO medications until 1400 with his food. His tray is at bedside now.
--- NOTE | 2025-08-23 13:49 | P.DS_ITS ---
Discharge Providers Date of Admission: 08/18/25 00:30 Date of Discharge: August 23, 2025 Attending Provider at Admission: Mercedez Cordero MD Attending Provider at Discharge: Melissa Lange MD Primary Care Provider: Beverly Veronica MD Diagnoses at Discharge Discharge Diagnosis 1. 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 He was admitted to the hospital on August 18, 2025 after complaining of a headache and when found by EMS was noted to be seizing. Urine drug screen negative for methamphetamines, positive opiates and benzodiazepines which are his prescribed home medications. He had a total of 4 seizures in the emergency room. He was intubated in view of status epilepticus. Seizures were thought to be related to metabolic encephalopathy, likely related to missed dialysis. Patient was successfully extubated on 08/21/25. He is alert awake and oriented x 3 afterwards. Hospital course was notable for MSSA septicemia for which patient has received IV antibiotics during the course of admission. Narrowed down to cefazolin 2 g IV 3 times a week after dialysis on dialysis days over the next 6 weeks. TTE negative for any vegetations. No signs of infection at IV fistula access site. Weekly LFT and CBC to be checked while on the above cefazolin treatment. Sputum culture notable for Moraxella catarrhalis for which she received azithromycin. Psychiatry service was consulted, patient had been placed on a brief 96-hour hold due to agitation on the night of 08/21/2025. Patient also has a history of severe depression and on 08/22 was refusing medications. He was much more compliant after having talked to psychiatry. He is being discharged today after dialysis and confirms that he intends to keep up with his outpatient dialysis sessions on Thursday and IV antibiotics. This documentation was created by [employer] cabin supervisor software. Every effort was made to ensure accuracy of cabin supervisor. Any obvious errors or omissions should be clarified with the author of the document. Physical Exam Narrative: General: No acute distress, AO x1 HEENT: PERRLA, pupils bilaterally equal and reactive, pallors not present Chest: Normal vesicular breath sounds, no added sounds, equal good air entry bilaterally CVS: S1-S2 regular, no murmurs, no tachycardia, no gallops, no rubs Abdomen: Soft, nontender, no organomegaly, bowel sounds present Neuro: No focal deficits, no facial deformity, AO x3, power 5/5 in all limbs Extremities: Healthy surgical dressing present on the right hip, mild tenderness, soft no erythema. Discharge Data Studies Completed and Pending Completed Studies During Hospitalization Category [place] [id number] Stat Cat Scan 08/17/25 20:[address] head wo con* [id number] Stat Cat Scan 08/17/25 20:20 Completed CXRP [XR chest 1V portable [id number]] Routine Exams 08/20/25 13:16 Completed CXRP [XR chest 1V portable [id number]] Routine Exams 08/21/25 08:13 Completed CXRP [XR chest 1V portable [id number]] Stat Exams 08/17/25 20:22 Completed XR chest 1V portable [id number] Stat Exams 08/17/25 22:33 Completed CV. echo limited [id number] Routine Ultrasound 08/22/25 16:18 Completed Pending at discharge Category Date Time Status Blood Culture Stat Lab 08/18/25 20:36 Results Comprehensive Metabolic Panel AM LABS Lab 08/24/25 04:00 Ordered Comprehensive Metabolic Panel AM LABS Lab 08/25/25 04:00 Ordered Comprehensive Metabolic Panel AM LABS Lab 08/26/25 04:00 Ordered MRSA PCR OZH (swab) Routine Lab 08/18/25 20:39 Ordered Magnesium AM LABS Lab 08/24/25 04:00 Ordered Magnesium AM LABS Lab 08/25/25 04:00 Ordered Magnesium AM LABS Lab 08/26/25 04:00 Ordered Phosphorus AM LABS Lab 08/24/25 04:00 Ordered Phosphorus AM LABS Lab 08/25/25 04:00 Ordered Phosphorus AM LABS Lab 08/26/25 04:00 Ordered VBG [Venous Blood Gas] Stat Lab 08/17/25 21:14 Results Radiology Impressions Chest/Abdomen/Pelvis CT 08/17/25 20:20 IMPRESSION: CHF with pulmonary edema. IMPRESSION: Small volume free fluid within the pelvis. No identified acute pathology within the abdomen or pelvis. Limited assessment of the right lower quadrant transplant kidney by noncontrast exam. Head CT 08/17/25 20:20 IMPRESSION: No acute intracranial abnormality. Chest X-Ray 08/21/25 08:13 Impression: 1. Minimal decrease in patchy right lower lobe opacity. 2. Satisfactory position of endotracheal tube and nasogastric tube. 3. Cardiomegaly. Laboratory Results WBC 8.39 10^3/uL (3.29-11.43) 08/23/25 09:37 RBC 2.74 10^6/uL (3.85-5.65) L 08/23/25 09:37 Hgb 8.30 g/dL (11.27-16.99) L 08/23/25 09:37 Hct 26.0 % (37-53) L 08/23/25 09:37 MCV 94.9 fl (82-101) 08/23/25 09:37 MCH 30.3 pg (27-33) 08/23/25 09:37 MCHC 31.9 g/dL (30-55) 08/23/25 09:37 RDW 15.4 % (12.1-15.1) H 08/23/25 09:37 Plt Count 184 10^3/cmm (157-399) 08/23/25 09:37 MPV 9.3 fL (7.4-10.4) 08/23/25 09:37 Neut % (Auto) 71.2 % 08/23/25 09:37 Lymph % (Auto) 9.3 % 08/23/25 09:37 [place] % (Auto) 10.7 % 08/23/25 09:37 Eos % (Auto) 3.8 % 08/23/25 09:37 Baso % (Auto) 1.1 % 08/23/25 09:37 Neut # (Auto) 5.97 10^3/uL (1.8-7.7) 08/23/25 09:37 Lymph # (Auto) 0.8 10^3/uL (0.8-4.8) 08/23/25 09:37 [place] # (Auto) 0.9 10^3/uL (0.2-0.9) 08/23/25 09:37 Eos # (Auto) 0.3 10^3/uL (0.0-0.8) 08/23/25 09:37 Baso # (Auto) 0.1 10^3/uL (0.0-0.1) 08/23/25 09:37 Nucleated RBC % (auto) 0 % 08/23/25 09:37 Nucleated RBCs # 0.0 /100WBC 08/23/25 09:37 Specimen Type Arterial 08/19/25 04:50 Sample Site Radial, right 08/19/25 04:50 ABG pH 7.43 (7.35-7.45) 08/19/25 04:50 ABG pCO2 38.7 mmHg (35-45) 08/19/25 04:50 ABG pO2 85.7 mmHg (80.0-100.0) 08/19/25 04:50 ABG PO2/FiO2 Ratio 285 08/19/25 04:50 ABG HCO3 25.4 mmol/L (22-26) 08/19/25 04:50 ABG O2 Saturation 97.6 08/19/25 04:50 ABG Base Excess 1.0 mmol/L (-2.0-2.0) 08/19/25 04:50 Paul Test Pos 08/19/25 04:50 VBG pH 7.07 (7.32-7.42) L* 08/17/25 21:14 VBG pCO2 44.7 mmHg (41-51) 08/17/25 21:14 VBG pO2 77.5 mmHg (25-40) H 08/17/25 21:14 VBG HCO3 13.0 mmol/L (24-28) L 08/17/25 21:14 VBG Base Excess -16.3 mmol/L (-3.0-3.0) L 08/17/25 21:14 VBG Hematocrit 30.0 % (42-52) L 08/17/25 21:14 A-a O2 Gradient 10.4 mmHg (5-10) H 08/19/25 04:50 Hematocrit 30.3 % (42-52) L 08/19/25 04:50 Hgb O2 Saturation 95.7 % (95-100) 08/19/25 04:50 Carboxyhemoglobin 1.5 %THgb (0.4-20.1) 08/19/25 04:50 Methemoglobin 0.5 % (0.4-1.5) 08/19/25 04:50 Total Hemoglobin 9.9 g/dL (14-18) L 08/19/25 04:50 Sodium 134.0 mmol/L (131-143) 08/19/25 04:50 Potassium 4.8 mmol/L (3.5-5.0) 08/19/25 04:50 Glucose 88.0 mg/dL (70-115) 08/19/25 04:50 Ionized Calcium 1.1 mmol/L (1.1-1.4) 08/19/25 04:50 O2 Delivery Device Vent 08/19/25 04:50 FiO2 30.0 % 08/19/25 04:50 Tidal Volume 0.37 08/19/25 04:50 PEEP 5.0 cmH20 08/19/25 04:50 [employer] Mechanic ID [id number] 08/19/25 04:50 Sodium 140 mmol/L (136-145) 08/23/25 09:37 Potassium 4.5 mmol/L (3.5-5.1) 08/23/25 09:37 Chloride 99 mmol/L (98-107) 08/23/25 09:37 Carbon Dioxide 21 mmol/L (22-29) L 08/23/25 09:37 Anion Gap 24.5 (5-19) H 08/23/25 09:37 BUN 44 mg/dL (6-20) H 08/23/25 09:37 Creatinine 8.7 mg/dL (0.7-1.2) H* 08/23/25 09:37 GFR Calculation 7.5 mL/min (90-130) L 08/23/25 09:37 Glucose 94 mg/dL (65-115) 08/23/25 09:37 POC Glucose 109 mg/dL (70-110) 08/20/25 19:45 Calculated Osmolality 301 mOsm/kg (285-295) H 08/23/25 09:37 Lactic Acid 11.5 mmol/L (0.5-2.2) H* 08/17/25 21:14 Lactic Acid (Sepsis) 3.7 mmol/L (0.5-2.2) H 08/17/25 23:39 Calcium 9.3 mg/dL (8.5-10.5) 08/23/25 09:37 Phosphorus 8.0 mg/dL (2.5-4.5) H* 08/21/25 03:29 Magnesium 2.3 mg/dL (1.7-2.3) 08/21/25 03:29 Total Bilirubin 0.3 mg/dL (0.15-1.2) 08/23/25 09:37 AST 25 U/L (0-40) 08/23/25 09:37 ALT 11 U/L (0-41) 08/23/25 09:37 Alkaline Phosphatase 90 U/L (40-130) 08/23/25 09:37 Ammonia 34 umol/L (16-60) 08/17/25 21:14 Creatine Kinase 137 U/L (39-308) 08/17/25 21:14 Troponin T Baseline 60 ng/L (0-15) H 08/17/25 21:14 Troponin T 120 Minute 64.69 ng/L (0-15) H 08/17/25 23:39 Delta Troponin T 4.69 ABS# (0-10) 08/17/25 23:39 C-React Prot High Sens 0.840 mg/dL (0.0-0.3) H 08/17/25 21:14 NT-Pro-B Natriuret Pep > 93331 pg/mL (0-125) H 08/17/25 21:14 Total Protein 6.5 g/dL (6.6-8.7) L 08/23/25 09:37 Albumin 4.0 g/dL (3.5-5.2) 08/23/25 09:37 Globulin 2.5 g/dL (1.3-4.6) 08/23/25 09:37 Procalcitonin 0.69 ng/mL (0-0.5) H 08/17/25 21:14 Random Vancomycin 22.0 ug/mL (20.0-40.0) 08/21/25 03:29 Urine Opiates Screen Positive ng/mL (Negative) H 08/18/25 05:30 Ur Barbiturates Screen Negative ng/mL (Negative) 08/18/25 05:30 Ur Phencyclidine Scrn Negative ng/mL (Negative) 08/18/25 05:30 Ur Amphetamines Screen Negative ng/mL (Negative) 08/18/25 05:30 U Benzodiazepines Scrn Positive ng/mL (Negative) H 08/18/25 05:30 Urine Cocaine Screen Negative ng/mL (Negative) 08/18/25 05:30 U Marijuana (THC) Screen Negative ng/mL (Negative) 08/18/25 05:30 Ethyl Alcohol < 10 mg/dL (0-10) 08/17/25 21:14 Vitals Last Vital Signs Temp 97.8 F 08/23/25 12:30 Pulse 79 08/23/25 12:30 Resp 25 H 08/23/25 12:30 BP 149/91 08/23/25 13:19 Pulse Ox 97 08/23/25 12:30 O2 Del Method Room Air 08/23/25 12:30 O2 Flow Rate 2 08/21/25 20:00 FiO2 30 08/21/25 15:31 Discharge Plan Discharge Patient Disposition: Home Condition: Stable Prescriptions: New azithromycin 250 mg Tablet 500 mg PO DAILY 5 Days Qty: 5 0RF Continued sumatriptan 20 mg/actuation spray,non-aerosol 20 mg INTRANASAL Q12H PRN (Reason: Migraine Headache) hydralazine 100 mg tablet 100 mg PO TID Lokelma 5 gram powder in packet 5 g PO DAILY Qty: 11 2RF prednisone 5 mg tablet 5 mg PO DAILY sevelamer carbonate 800 mg tablet See Rx Instructions .ROUTE .COMPLEX Rx Instructions: TAKE 2 TABLETS BY MOUTH DAILY FOR 4 WEEKS, THEN 1 TABLET DAILY THEREAFTER. clonazepam [Klonopin] 1 mg tablet 1 mg PO BID PRN (Reason: anxiety) Qty: 10 0RF fluoxetine 10 mg capsule 10 mg PO DAILY acetaminophen 325 mg Tablet 650 mg PO Q6H PRN (Reason: Mild/Mod Pain Or Temp >/= 101) Qty: 30 0RF clonidine HCl 0.1 mg Tablet 0.2 mg PO TID Qty: 90 0RF divalproex 500 mg Tablet,Delayed Release (Dr/Ec) 500 mg PO BID Qty: 60 0RF methocarbamol 750 mg tablet 750 mg PO Q8H PRN (Reason: muscle spasm) Qty: 30 0RF losartan 50 mg Tablet 100 mg PO DAILY 30 Days Qty: 120 0RF nifedipine 90 mg tablet extended release 90 mg PO DAILY 30 Days Qty: 30 0RF labetalol 100 mg tablet 300 mg PO BID 30 Days Qty: 180 0RF Referrals: Beverly Veronica MD [Primary Care Provider, Family Practice] - 4-7 days Referral Note: hospital discharge follow up Discharge Activity: Resume usual activity Patient Instructions: Opioid Safety, Patient Portal & [facility]ria Instructions Discharge Attestations Time Spent in Discharge Care*: greater than 30 min Status at Discharge: Cognitive status at discharge: cognitively intact , Behavioral status at discharge: cooperative and can be uncooperative , Quality Metrics Clinical Quality Measures [ No reported AMI, CVA or VTE this stay] Coding Level of Care Code Acute Code for Chg Fwd Diagnoses ESRD on hemodialysis N18.6; Z99.2
--- NOTE | 2025-08-23 15:33 | PC.SOCIAL ---
IMM Updated Updated pt on IMM. No questions voiced. Provided pt a copy. Initialed, dated, & timed copy in chart.
--- NOTE | 2025-08-23 16:15 | PC.NURSE ---
Cefazolin administration delay related to dialysis Dialysis in progress at time due, will admin near end of dialysis.
[2025-08-23] MEDS: heparin, porcine 1,000 unit/mL INJ 10 mL 1000 UNIT IV (17:23)
--- NOTE | 2025-08-23 17:24 | PC.NURSE ---
Labetalol held until dialysis nearly finished.
--- NOTE | 2025-08-23 18:20 | PC.NURSE ---
Shift summary: Pt rested in bed throughout the shift. He has been cooperative and pleasant. He has be pontificating about his latter-day beliefs. BP has been well controlled today. Sinus rhythm noted on monitor. He was started oa diet which he picked at in his usual fashion. No urine putout this shift. He is received hemodialysis as this note is written. No BM this shift. He has reported neck pain once which acetaminophen was admin for it. He received Benadryl IV for itching due to dialysis this evening.
[2025-08-23] MEDS: ceFAZolin 1,000 mg SDV 1000 MG IVP (19:20)
--- NOTE | 2025-08-23 19:48 | PC.NURSE ---
Removed femoral line at 1940. Patient tolerated well. No blood upon removal. Pressure held for 5 minutes. Site covered with gauze and tegaderm. Patient denied pain at site.
--- NOTE | 2025-08-23 19:59 | PC.NURSE ---
Patient left with significant other at 1956. Wheeled to personal vehicle in wheelchair by charge nurse EUGENIA Grande. Patient confirmed he had all personal belongings.
--- NOTE | 2025-08-23 20:09 | PC.NURSE ---
Addendum entered by ABIMAEL Roldan 08/23/25 20:18: This nurse heard conversation during patients discharge and his plans to obtain drugs after discharge. Original Note: Upon entering room to give discharge instructions, pt interrupted this nurse and asked if I knew what time the dispensary closed. I replied that I had no knowledge of that and he attempted to find information on his phone. Stated I feel like shit and I need something to make me feel better . Made a phone call and asked his mother to villatoro megan him $100 and stated he was going to go to the dispensary to get something to make him feel better. He quickly hung up the phone and said she just pisses me off. She won't give me money because she doesn't know why I would want to smoke anything after having all that stuff in my lungs. She is stupid, I can get edibles. Pt then received discharge instructions, including that he would need to make his own appointments to follow up with primary physician and call dialysis to let them know he is discharged and to set up next appointment. Stated that tomorrow is and he will have an appointment at 0700. Pt sat in wheelchair and this nurse assisted him to the car. Pt continuously discussed marijuana and repeatedly stated that he was going to get some as soon as he leaves because he feels like shit . He asked my opinion of marijuana and I told him as a medical professional I cannot recommend it, especially if he was going to smoke it after being intubated. Assisted into car at 1999.
== END 2025-08-23 19:57 | disposition home or self-care (01) | DRG 640 ==
LOC: ER 08-18 00:30 → ICU 08-18 00:31
PROVIDERS: Hospitalist; Student in an Organized Health Care Education/Training Program; Admitting Provider Internal Medicine; Emergency Provider Student in an Organized Health Care Education/Training Program; PCP Family Medicine; Visit Provider Student in an Organized Health Care Education/Training Program
DX: E87.5 Hyperkalemia (principal); A41.01 Sepsis due to Methicillin susceptible Staphylococcus aureus; J96.01 Acute respiratory failure with hypoxia; N18.6 End stage renal disease; I13.2 Hypertensive heart and chronic kidney disease with heart failure and with stage 5 chronic kidney disease, or end stage renal disease; T86.12 Kidney transplant failure; N17.9 Acute kidney failure, unspecified; F19.139 Other psychoactive substance abuse with withdrawal, unspecified; R45.851 Suicidal ideations; F33.2 Major depressive disorder, recurrent severe without psychotic features; I16.0 Hypertensive urgency; D63.1 Anemia in chronic kidney disease; F41.1 Generalized anxiety disorder; J45.909 Unspecified asthma, uncomplicated; R45.1 Restlessness and agitation; R56.9 Unspecified convulsions; R51.9 Headache, unspecified; E87.20 Acidosis, unspecified; R73.9 Hyperglycemia, unspecified; E87.1 Hypo-osmolality and hyponatremia; I50.9 Heart failure, unspecified; Z91.158 Patient's noncompliance with renal dialysis for other reason; Z99.2 Dependence on renal dialysis; Z79.899 Other long term (current) drug therapy; Z88.6 Allergy status to analgesic agent; Z88.8 Allergy status to other drugs, medicaments and biological substances; Z87.891 Personal history of nicotine dependence; Z56.0 Unemployment, unspecified
CPT/HCPCS: 36415; 36416; 36592; 36600; 70450; 71045; 71250; 74176; 80048; 80051; 80053; 80202; 80306; 80307; 82140; 82330; 82550; 82803; 82805; 82962; 83605; 83735; 83880; 84100; 84145; 84484; 85025; 86141; 87040; 87070; 87077; 87086; 87150; 87186; 87205; 90935; 92526; 92610; 93005; 93308; 94002; 94003; 94799; 96365; 96367; 96372; 96375; 99291; J0360; J0612; J0690; J1200; J1644; J1815; J1953; J2060; J2250; J2270; J2470; J2543; J2704; J3010; J3373; J3490; J7050; J7512; J7799; J9999; Q0144; Q3014; Q5105

== ENCOUNTER 2025-09-03 05:52 | Inpatient (IN) | payer MEDICARE, MEDICAID, SELFPAY ==
[2025-09-03] VITALS (64 sets, daily range): BP systolic 82–224; BP diastolic 65–174; PULSE 80–144; RESP 18–46; TEMP 36.3–38.4; O2SAT 60–100; BMI 27.3; BMI 2973.3
--- NOTE | 2025-09-03 06:01 | XRR_ITS ---
PROCEDURE INFORMATION: Exam: XR Chest Exam date and time: 09/03/2025 6:26 AM Age: 25 years old Clinical indication: Cough TECHNIQUE: Imaging protocol: Radiologic exam of the chest. Views: 1 view. COMPARISON: CR XR chest 1V portable [id number] 08/21/2025 9:19 AM FINDINGS: Lungs: Extensive bilateral partially consolidative pneumonia is present in each lower lobe, left slightly greater than right. The right infiltrate is slightly more nodular than before, the extensive left-sided infiltrate is new. Pleural spaces: Unremarkable. No pleural effusion. No pneumothorax. Heart/Mediastinum: See Vasculature finding. Vasculature: Mild cardiomegaly and uncoiling of the thoracic aorta. Bones/joints: Unremarkable. Other findings: Life support lines have been removed. XR/XR chest 1V portable [id number] IMPRESSION: Fairly extensive bilateral pneumonia.
--- NOTE | 2025-09-03 06:02 | ECG_ITS ---
[facility] Date: 2025-09-03 Pat Name: Vance Sainz Department: Room: Gender: Male [employer] Principal: : [id number] Requested By: Serafin Peña Order Number: [id number] Raman MD: Orlando Brown M.D. Measurements Intervals [place] Rate: 122 P: -85 VA: 160 QRS: -5 QRSD: 114 T: 66 QT: 316 QTc: 451 Interpretive Statements SINUS TACHYCARDIA MODERATE INTRAVENTRICULAR CONDUCTION DELAY [110+ ms QRS DURATION] MINIMAL ST DEPRESSION [0.025+ mV ST DEPRESSION] Compared to ECG 08/17/2025 20:48:44 NO SIGNIFICANT CHANGE Electronically Signed On 09-03-2025 15:04:42 [employer]EREAL SUPERVISOR by Orlando Brown M.D. [email or web address]
--- NOTE | 2025-09-03 06:17 | ED_ITS ---
HPI - URI/Sore Throat 2 General: Chief Complaint: Upper Respiratory Infection Stated Complaint: coughing for 2 hours Source: patient and EMS Mode of arrival: EMS Limitations: no limitations History of Present Illness: 25-year-old male is very well-known to t he ER history of end-stage renal disease on dialysis. States that he missed dialysis all last week been having some shortness of breath along with cough started overnight. He denies any fevers he denies any increasing pain patient denies any worse or improving factors. Has had some slight hemoptysis. Related Data Home Medications ?Medication ?Instructions ?Recorded ?Confirmed hydralazine 100 mg tablet 100 mg PO TID 04/05/2508/18 sumatriptan 20 mg/actuation nasal 20 mg intranasal Q12 H PRN Migraine 04/05/25 08/18/25 spray Headache fluoxetine 10 mg capsule 10 mg PO DAILY 06/28/2507/21 prednisone 5 mg tablet 5 mg PO DAILY 07/17/2508/18 sevelamer carbonate 800 mg tablet See Rx Instructions .Route .COMPLEX 07/17/25 08/18/25 Previous Rx's ?Medication ?Instructions ?Recorded clonazepam 1 mg tablet (Klonopin) 1 mg PO BID PRN anxi ety #10 tabs 01/09/25 acetaminophen 325 mg tablet 650 mg (2 x 325 mg) PO Q6H PRN 06/29/25 Mild/Mod Pain Or Temp >/= 101 #30 tabs clonidine HCl 0.1 mg tablet 0.2 mg (2 x 0.1 mg) PO TID #90 tabs 06/29/25 divalproex 500 mg tablet,delayed 500 mg PO BID #60 tab s 06/29/25 release methocarbamol 750 mg tablet 750 mg PO Q8H PRN muscle s pasm #30 07/08/25 tabs sodium zirconium cyclosilicate 5 5 g PO DAILY #11 ea 0 07/12/25 gram oral powder packet (Lokelma) labetalol 100 mg tablet 300 mg (3 x 100 mg) PO BID 3 0 days 08/11/25 #180 tabs losartan 50 mg tablet 100 mg (2 x 50 mg) PO DAILY 30 08/11/25 days #120 tabs nifedipine 90 mg tablet,extended 90 mg PO DAILY 30 day s #30 tabs 08/11/25 release Allergies Allergy/AdvReac Type Severity Reaction Status Date / Time NSAIDS (Non-Steroidal Allergy Severe unable to Verified 06/27/25 20:41 Anti-Inflamma take due to kidney disease sertraline (From Zoloft) Allergy Unknown Verified 06/27/25 20:41 Review of Systems 2 Resp: Reports: non-productive cough PFSH ED 2 PFSH: Medical History (Updated 09/03/25 @ 07:44 by Serafin Peña MD) Anemia Renal transplant failure and rejection Kidney transplant failure Noncompliance with renal dialysis Adrenal insufficiency Hypoglycemia CKD (chronic kidney disease) stage V requiring chronic dialysis Generalized anxiety disorder Other stimulant dependence, in remission Problems related to lack of adequate sleep Substance abuse Depression Anxiety Surgical History Kidney transplant recipient Social History Smoking and tobacco/nicotine status: tobacco/nicotine user, details unknown e- cigarettes E-Cigarette Details: vaporizer device and with nicotine E-cig/vape details: 6 mg and smokeless tobacco Smokeless tobacco user: chewing tobacco Smokeless tobacco details: 1 can/3 days. Quit status (tobacco/nicotine): has tried quititng Number of times tried to quit tobacco: 4 Second hand smoke exposure: No Alcohol intake: never Substance/Drug Use: current Substance/Drug use frequency: Special occassions/opportunity only Additional social history: Patient uses marijuana 1 g every other day he has remote history of some meth use. He reports chewing tobacco and using nicotine pouches but denies smoking cigarettes. He denies suicidal ideation. Patient is companied by his girlfriend and his CODE STATUS is always been full code confirmed with the patient on 06/05/2025 that he wants full CODE STATUS by Daron Ayala MD Patient admits to THC use Physical Exam 2 Const: COMMON NORMALS: patient oriented x3 HENMT: COMMON NORMALS: normocephalic and atraumatic HEAD & SCALP: n ormocephalic and atraumatic Eye: COMMON NORMALS: Equal, round and reactive pupils present and EOMs intact bilaterally PUPIL: Yes Equal, round and reactive pupils present Neck/C-Spine: COMMON NORMALS: full ROM and supple Chest: COMMONS NORMALS: normal inspection of the chest and normal palpation of entire chest wall Resp: COMMON NORMALS: No retractions and No use of accessory muscles EFFORT & INSPECTION: Yes respiratory distress AUSCULTATION: rales Cardio: COMMON NORMALS: regular rate, regular rhythm and No murmurs present (Cardio) RATE: regular rate RHYTHM: regular rhythm GI: COMMON NORMALS: Normal to inspection, nondistended, normoactive bowel sounds present, Soft to palpation, non-tender and no masses PALPATION: Yes Soft to palpation Extremity: COMMON NORMALS: normal to inspection and full ROM Neuro: COMMON NORMALS: patient oriented x3, moves all extremities and no focal motor deficits Psych: COMMON NORMALS: mental status grossly normal, Normal thought process present and cooperative THOUGHT PROCESS: Normal thought process present Skin: COMMON NORMALS: no rashes or lesions noted and no wounds GENERAL SKIN EXAM: no rashes or lesions noted Course 2 Vital Signs: Vital signs: Vital Signs Temperature 97.6 F 09/03/25 05:55 Pulse Rate 109 H 09/03/25 07:23 Respiratory Rate 26 H 09/03/25 07:23 Blood Pressure 208/154 09/03/25 07:23 Pulse Oximetry 88 L 09/03/25 07:23 Oxygen Delivery Me thod Nasal Cannula 09/03/25 07:23 Oxygen Flow Rate 2 09/03/25 07:23 MDM - URI/Sore Throat Medical Decision Making 25-year-old male well-known to the ER history of end-stage renal disease on dialysis with noncompliance. He presented here with cough along with shortness of breath. Differential includes pneumonia, fluid overload. His chest x-ray interpreted by me shows bilateral pneumonia he is found to be hyperkalemic as well with a potassium 7.7 likely due to missing his dialysis patient did get blood cultures IV antibiotics gave him 10 units of insulin along with D10 and calcium gluconate. He is hypertensive as well has a chronic hypertension did give him hydralazine and labetalol he has no EKG changes here EKG interpreted by me showed sinus tach heart rate [address] elevation QRS 114 QTc 388. Patient has not had any hypoxia here did speak to hospitalist and will admit to the ICU at this time. critical care time 50 min The high probability of a clinically significant, sudden or life threatening deterioration of the patient's resp system(s) required my full and direct attention, intervention and personal management. The critical care time is as shown. This time is in addition to time spent performing any reported procedures but includes the following: [x] Data and vital sign review and interpretation [x] Patient assessment, examination and intervention [x] Documentation [x] Medication orders and management Medical Records I reviewed the patient's medical records. Lab Data I reviewed the patient's lab results. 09/03/25 06:42 09/03/25 06:42 Radiology Impressions Chest X-Ray 09/03/25 06:01 IMPRESSION: Fairly extensive bilateral pneumonia. Laboratory Results WBC 16.71 10^3/uL (3.29-11.43) H 09/03/25 06:42 RBC 2.50 10^6/uL (3.85-5.65) L 09/03/25 06:42 Hgb 7.90 g/dL (11.27-16.99) L 09/03/25 06:42 Hct 25.9 % (37-53) L 09/03/25 06:42 MCV 103.6 fl (82-101) H 09/03/25 06:42 MCH 31.6 pg (27-33) 09/03/25 06:42 MCHC 30.5 g/dL (30-55) 09/03/25 06:42 RDW 19.2 % (12.1-15.1) H 09/03/25 06:42 Plt Count 224 10^3/cmm (157-399) 09/03/25 06:42 MPV 10.2 fL (7.4-10.4) 09/03/25 06:42 Neut % (Auto) 83.5 % 09/03/25 06:42 Lymph % (Auto) 5.4 % 09/03/25 06:42 [place] % (Auto) 8.8 % 09/03/25 06:42 Eos % (Auto) 1.3 % 09/03/25 06:42 Baso % (Auto) 0.6 % 09/03/25 06:42 Neut # (Auto) 13.94 10^3/uL (1.8-7.7) H 09/03/25 06:42 Lymph # (Auto) 0.9 10^3/uL (0.8-4.8) 09/03/25 06:42 [place] # (Auto) 1.5 10^3/uL (0.2-0.9) H 09/03/25 06:42 Eos # (Auto) 0.2 10^3/uL (0.0-0.8) 09/03/25 06:42 Baso # (Auto) 0.1 10^3/uL (0.0-0.1) 09/03/25 06:42 Nucleated RBC % (auto) 0 % 09/03/25 06:42 Nucleated RBCs # 0.0 /100WBC 09/03/25 06:42 Sodium 142 mmol/L (136-145) 09/03/25 06:42 Potassium 7.7 mmol/L (3.5-5.1) H* 09/03/25 06:42 Chloride 102 mmol/L (98-107) 09/03/25 06:42 Carbon Dioxide 17 mmol/L (22-29) L 09/03/25 06:42 Anion Gap 30.7 (5-19) H 09/03/25 06:42 BUN 118 mg/dL (6-20) H* D 09/03/25 06:42 Creatinine 15.8 mg/dL (0.7-1.2) H* 09/03/25 06:42 GFR Calculation 3.8 mL/min (90-130) L 09/03/25 06:42 Glucose 95 mg/dL (65-115) 09/03/25 06:42 Calculated Osmolality 331 mOsm/kg (285-295) H 09/03/25 06:42 Calcium 9.3 mg/dL (8.5-10.5) 09/03/25 06:42 Total Bilirubin 0.2 mg/dL (0.15-1.2) 09/03/25 06:42 AST 14 U/L (0-40) 09/03/25 06:42 ALT < 5 U/L (0-41) 09/03/25 06:42 Alkaline Phosphatase 88 U/L (40-130) 09/03/25 06:42 NT-Pro-B Natriuret Pep > 25290 pg/mL (0-125) H 09/03/25 06:42 Total Protein 6.2 g/dL (6.6-8.7) L 09/03/25 06:42 Albumin 4.3 g/dL (3.5-5.2) 09/03/25 06:42 Globulin 1.9 g/dL (1.3-4.6) 09/03/25 06:42 All radiology interpretation(s) finalized by discharge EKG Data EKG 1: I personally reviewed and interpreted this EKG as follows: EKG interpretation date: 09/03/25 EKG interpretation time: 06:56 Interpretation: sinus tach hr [address] elevation qrs 114 qtc 388 Critical Care Time 2 Critical Care Time: Critical Care Time: Yes Total Critical Care Time: 50 Attestation: The high probability of a clinically significant, sudden or life threatening deterioration of the patient's resp system(s) required my full and direct attention, intervention and personal management. The critical care time is as shown. This time is in addition to time spent performing any reported procedures but includes the following: [x] Data and vital sign review and interpretation [x] Patient assessment, examination and intervention [x] Documentation [x] Medication orders and management Discharge Plan Discharge Patient Disposition: Admitted As Inpatient Admit Provider: Jack Carreon Clinical Impression: ESRD on dialysis, Hyperkalemia, Pneumonia, Hypertension Condition: Stable Coding Level of Care Code ED [employer] Technician for [facility]g Lyn[facility]
[2025-09-03] MEDS: hyDRALAzine 20 mg/mL INJ 1 mL 10 MG IVP (06:31)
[2025-09-03] MEDS: LORazepam 2 mg/mL INJ 1 mL 1 MG IVP (06:32)
[2025-09-03 06:47] LABS: Hematocrit 25.9 % (37-53); Hemoglobin 7.90 g/dL (11.27-16.99); Mean Corpuscular HGB Conc 30.5 g/dL (30-55); Mean Corpuscular Hemoglobin 31.6 pg (27-33); Mean Corpuscular Volume 103.6 fl (82-101); Nucleated Red Blood Cells % 0 %; Platelet Count 224 10^3/cmm (157-399); Red Blood Count 2.50 10^6/uL (3.85-5.65); White Blood Count 16.71 10^3/uL (3.29-11.43)
[2025-09-03] MEDS: ondansetron 2 mg/ML SDV 2 mL 4 MG IVP ×2 (07:05→22:28)
[2025-09-03] MEDS: morphine 4 mg/mL SDV 1 mL IVP ×2 (07:06→09:00)
[2025-09-03] MEDS: labetalol 5 mg/mL SDV 20mL 20 MG IVP ×2 (07:10→09:05)
[2025-09-03 07:13] LABS: Alanine Aminotransferase < 5 U/L (0-41); Albumin Level 4.3 g/dL (3.5-5.2); Alkaline Phosphatase 88 U/L (40-130); Aspartate Amino Transferase 14 U/L (0-40); Calcium 9.3 mg/dL (8.5-10.5); Chloride 102 mmol/L (98-107); Globulin 1.9 g/dL (1.3-4.6); Glucose 95 mg/dL (65-115); Sodium 142 mmol/L (136-145)
[2025-09-03] MEDS: cefTRIAXone 1,000 mg SDV 1000 MG IVP (07:14)
[2025-09-03 07:31] LABS: Anion Gap 30.7 (5-19); Carbon Dioxide 17 mmol/L (22-29); Osmolality Calculated 331 mOsm/kg (285-295); Total Protein 6.2 g/dL (6.6-8.7)
[2025-09-03 07:32] LABS: Blood Urea Nitrogen 118 mg/dL (6-20); Potassium 7.7 mmol/L (3.5-5.1)
[2025-09-03 07:36] LABS: NT Pro B Type Natriuretic Pept > 70000 pg/mL (0-125)
[2025-09-03 07:45] LABS: Respiratory Syncytial Virus Ce NEGATIVE (Negative); SARS-CoV-2 PCR NEGATIVE (Negative)
--- NOTE | 2025-09-03 08:00 | PC.NURSE ---
arrived from er [facility] on [facility] accompanied by 2 staff , bloody white frothy foam dripping from mouth unable to breath call for assist to transfer t amd o icu bed to attempt treatment and doctor called for stat orders for obvious resp distress , skin diaphoretic and dusky unable to obtain any vital signs, iv site left arm intact attempt to talk with pt , explained intubation replied he did not want to be intubated , starting given sedation medications and morphine for resp distress abg drawn he has been on speaker phoe with mom through whole transfer from er mom also related he did not want to be intubated, doctor here order calcium d10 and insuling , started bipap multiple medications given for blood pressure
[2025-09-03] MEDS: insulin regular-human 100 units/1 mL 10 UNIT IVP (08:32)
[2025-09-03] MEDS: calcium gluconate 0.1 gm/mL 10% SDV 10mL 1 GM IVP (08:32)
[2025-09-03 08:33] LABS: Alveolar-Arterial Oxygen Gradi 50.1 mmHg (5-10); Arterial Blood Gas Hematocrit 29.1 % (42-52); Blood Gas Allen Test Pos; Blood Gas Operator Identificat CAK; Blood Gas Sample Site Radial, left; Blood Gas Sample Type Arterial; Carboxyhemoglobin 1.2 %THgb (0.4-20.1); Glucose Level-ABG 130.0 mg/dL (70-115); HCO3 ABG 15.7 mmol/L (22-26); Ionized Calcium Level - ABG 1.2 mmol/L (1.1-1.4); Methemoglobin 1.1 % (0.4-1.5); Oxygen Saturation ABG 92.3; PO2 ABG 105.0 mmHg (80.0-100.0); PO2 FiO2 Ratio Arterial Blood 131; Potassium Level - ABG 7.0 mmol/L (3.5-5.0); Sodium Level - ABG 146.0 mmol/L (131-143)
[2025-09-03] MEDS: LORazepam 2 mg/mL INJ 1 mL (08:33)
[2025-09-03 08:34] LABS: ABG PCO2 66.4 mmHg (35-45); ABG PH Result 6.98 (7.35-7.45)
[2025-09-03] MEDS: dexmedeTOMIDine 0.9 % NaCL 400 MCG/100 ML PREMIX 16.5 MCG (08:35)
--- NOTE | 2025-09-03 08:46 | ECG_ITS ---
[facility] Date: 2025-09-03 Pat Name: Vance Sainz Department: Room: [facility] Gender: Male Scleroscope Tester: : 2000 Requested By: Jack Rae Order Number: [id number] Danisha MD: Orlando Brown M.D. Measurements Intervals Diamond Rate: 88 P: 56 MO: 158 QRS: 36 QRSD: 133 T: 68 QT: 423 QTc: 514 Interpretive Statements SINUS RHYTHM INTRAVENTRICULAR CONDUCTION DELAY [130+ ms QRS DURATION] Compared to ECG 09/03/2025 06:56:57 ST deviation no longer present Electronically Signed On 09-03-2025 15:36:52 SENIOR SOFTWARE MANAGER by Orlando Brown M.D. [email or web address]
--- NOTE | 2025-09-03 08:53 | P.MISC_ITS ---
Miscellaneous Note Purpose of Documentation: Conversation about CODE STATUS Note: I was called about 30 minutes ago to patient reported to be having severe difficulty breathing. He had just been admitted from the ER, after presenting with difficulty breathing this morning. On getting here, patient was foaming from the mouth. He was also in severely mentally altered, combative and unable to be controlled. He is not following commands, and apparently barely to understand me, let alone give give clear and coherent instructions. On exam, patient in bed. Unremarkable respiratory distress. Combative, diaphoretic, he was remarkable disruptiveness. Severe tachycardic with heart rate of 136 bpm, he is remarkably dyspneic, and has bilateral diffuse crackles on exam He was put on BiPAP, immediately put on though he was able to be fighting that. I made an immediate determination to get him intubated, and mechanically ventilated, given apparent severe hypoxia, with O2 saturation dropping down to the 50s to 70s, amongst other unstable vital signs. At the same time, I got information from the RN about a call from the patient's father, Mr. Rio Sainz, advising that the patient had expressed to them that he did not want to be intubated. I called back family later, and personally spoke with with Mr. Pate and the , Cleo, both of whom identified themselves as patient's parents; they categorically and clearly told me that patient had told them after his last admission last week that he did not want to be intubated. There is no obvious requests or direction of this that is in writing; patient has no advanced directives. Consequently, I spoke with the [id number], who later spoke with risk-management personnel, and I was advised to follow-up patient's/parents instructions, though that is not in writing. So, at the moment, I will continue patient on BiPAP, and continue ongoing empiric therapy for ongoing problems of severe metabolic acidosis with associated peulm edema froom non-compliance with dialysis. I went ahead and spoke with the heel cover softener, who plans to see the patient is not urgent since. In the meantime, 2 Ampoules of bicarb has been ordered, given severely low pH level, IV labetalol given for severe hypertension with tachycardia. Morphine, Precedex, etc., also started, so as to further help control patient's combativeness. More orders to be putting and adjusted. Full H&P, with more details coming up soon.
[2025-09-03] MEDS: morphine 4 mg/mL SDV 1 mL (08:59)
--- NOTE | 2025-09-03 09:00 | PC.NURSE ---
precedex gtt infusing also bipap lowering blood pressure as tolerated , awaiting mother to arrive for further
[2025-09-03] MEDS: labetalol 5 mg/mL SDV 20mL 10 MG IVP ×2 (09:01→09:25)
[2025-09-03] MEDS: dexmedeTOMIDine 0.9 % NaCL 400 MCG/100 ML PREMIX 12.48 MCG IV ×3 (09:02→19:48)
--- NOTE | 2025-09-03 09:09 | PM.CCNAC ---
Critical Care Event Note The high probability of a clinically significant, sudden or life threatening deterioration of the patient's [renal, cardiovascular, pulmonary and neurologic] system(s) required my full and direct attention, intervention and personal management. The critical care time is as shown. This time is in addition to time spent performing any reported procedures but includes the following: [x] Data and vital sign review and interpretation [x] Patient assessment, examination and intervention [x] Documentation [x] Medication orders and management Critical Care Time Code activated: No Critical Care Time (min): 45 Additional information about critical care time: I was called about 30 minutes ago to patient reported to be having severe difficulty breathing. He had just been admitted from the ER, after presenting with difficulty breathing this morning. On getting here, patient was foaming from the mouth. He was also in severely mentally altered, combative and unable to be controlled. He is not following commands, and apparently barely to understand me, let alone give give clear and coherent instructions. On exam, patient in bed. Unremarkable respiratory distress. Combative, diaphoretic, he was remarkable disruptiveness. Severe tachycardic with heart rate of 136 bpm, he is remarkably dyspneic, and has bilateral diffuse crackles on exam He was put on BiPAP, immediately put on though he was able to be fighting that. I made an immediate determination to get him intubated, and mechanically ventilated, given apparent severe hypoxia, with O2 saturation dropping down to the 50s to 70s, amongst other unstable vital signs. At the same time, I got information from the RN about a call from the patient's father, Mr. Rio Sainz, advising that the patient had expressed to them that he did not want to be intubated. I called back family later, and personally spoke with with Mr. Pate and the , Cleo, both of whom identified themselves as patient's parents; they categorically and clearly told me that patient had told them after his last admission last week that he did not want to be intubated. There is no obvious requests or direction of this that is in writing; patient has no advanced directives. Consequently, I spoke with the [id number], who later spoke with risk-management personnel, and I was advised to follow-up patient's/parents instructions, though that is not in writing. So, at the moment, I will continue patient on BiPAP, and continue ongoing empiric therapy for ongoing problems of severe metabolic acidosis with associated pulm edema froom non-compliance with dialysis. I went ahead and spoke with the metal wire coating operator, who plans to see the patient is not urgent since. In the meantime, 2 Ampoules of bicarb has been ordered, given severely low pH level, IV labetalol given for severe hypertension with tachycardia. Morphine, Precedex, etc., also started, so as to further help control patient's combativeness. More orders to be putting and adjusted. IV Lasix also started; will consider putting him on a Lasix drip, but will defer this to the metal wire coating operator. Also, consider putting patient on a nicardipine drip if the blood pressure persist to be high. Further plans to be adjusted as clinical picture evolves. Full H&P, with more details coming up soon. Coding Level of Care Code Acute Code for Chg Fwarchana
--- NOTE | 2025-09-03 09:15 | PM.HP ---
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 He comes in today with complaint of difficulty breathing. No known provoking factor. However, information has the patient has not had his dialysis since last and he was discharged from this hospital about a week ago. While in the ER, he was in remarkable respiratory distress. Imaging revealed apparent chest infiltrate suspected to be due to some pneumonia versus pulmonary edema. The patient therefore started on some IV antibiotics, and therefore recommended for admission. Shortly after patient go to the ICU, he has clinical condition rapidly deteriorated; he was reports of going to severe respiratory distress. For this, I was called overhead to the ICU. Upon evaluation, he was in severe respiratory distress, very mentally altered, severely lethargic, tachycardic, hypoxic, with saturation in the 50s to 60s. . Consequently, I recommended intubating patient, but was countered by family who directed that patient had requested not to be made intubated. (See [facility] Critical Care Note for more detail) Otherwise, all present symptoms were treated empirically, including giving patient is on IV Lasix x 1, IV calcium gluconate, IV sodium bicarb, IV morphine, IV lorazepam, as well as IV labetalol plus started him on Precedex drip and the Cardene drip for severe hypertension. Review of Systems Narrative: Unable to obtain reliable review of system because of patient's severe altered mental status. Medications/Allergies Home Medications ?Medication ?Instructions ?Recorded ?Confirmed ?Last Taken ?Type clonazepam 1 mg tablet (Klonopin) 1 mg PO BID PRN anxiety #10 tabs 01/09/25 09/03/25 02/12/25 09:00 Rx hydralazine 100 mg tablet 100 mg PO TID 04/05/25 09/03/25 Unknown History sumatriptan 20 mg/actuation nasal 20 mg intranasal Q12H PRN Migraine 04/05/25 09/03/25 Unknown History spray Headache fluoxetine 10 mg capsule 10 mg PO DAILY 06/28/25 09/03/25 07/09/25 History acetaminophen 325 mg tablet 650 mg (2 x 325 mg) PO Q6H PRN 06/29/25 09/03/25 07/09/25 Rx Mild/Mod Pain Or Temp >/= 101 #30 tabs clonidine HCl 0.1 mg tablet 0.2 mg (2 x 0.1 mg) PO TID #90 tabs 06/29/25 09/03/25 07/09/25 Rx divalproex 500 mg tablet,delayed 500 mg PO BID #60 tabs 06/29/25 09/03/25 07/09/25 Rx release sodium zirconium cyclosilicate 5 5 g PO DAILY #11 ea 07/12/25 09/03/25 Unknown Rx gram oral powder packet (Lokelma) prednisone 5 mg tablet 5 mg PO DAILY 07/17/25 09/03/25 Unknown History sevelamer carbonate 800 mg tablet See Rx Instructions .Route .COMPLEX 07/17/25 09/03/25 Unknown History labetalol 100 mg tablet 300 mg (3 x 100 mg) PO BID 30 days 08/11/25 09/03/25 Unknown Rx #180 tabs losartan 50 mg tablet 100 mg (2 x 50 mg) PO DAILY 30 08/11/25 09/03/25 Unknown Rx days #120 tabs nifedipine 90 mg tablet,extended 90 mg PO DAILY 30 days #30 tabs 08/11/25 09/03/25 Unknown Rx release oxycodone 5 mg tablet 5 mg PO Q8H PRN Pain 09/03/25 09/03/25 Unknown History Allergies Allergy/AdvReac Type Severity Reaction Status Date / Time NSAIDS (Non-Steroidal Allergy Severe unable to Verified 06/27/25 20:41 Anti-Inflamma take due to kidney disease sertraline (From Zoloft) Allergy Unknown Verified 06/27/25 20:41 PFSH Acute PFSH: Medical History Anemia Renal transplant failure and rejection Kidney transplant failure Noncompliance with renal dialysis Adrenal insufficiency Hypoglycemia CKD (chronic kidney disease) stage V requiring chronic dialysis Generalized anxiety disorder Other stimulant dependence, in remission Problems related to lack of adequate sleep Substance abuse Depression Anxiety Surgical History Kidney transplant recipient Social History Smoking and tobacco/nicotine status: tobacco/nicotine user, details unknown e-cigarettes E-Cigarette Details: vaporizer device and with nicotine E-cig/vape details: 6 mg and smokeless tobacco Smokeless tobacco user: chewing tobacco Smokeless tobacco details: 1 can/3 days. Quit status (tobacco/nicotine): has tried quititng Number of times tried to quit tobacco: 4 Second hand smoke exposure: No Alcohol intake: never Substance/Drug Use: current Substance/Drug use frequency: Special occassions/opportunity only Additional social history: Patient uses marijuana 1 g every other day he has remote history of some meth use. He reports chewing tobacco and using nicotine pouches but denies smoking cigarettes. He denies suicidal ideation. Patient is companied by his girlfriend and his CODE STATUS is always been full code confirmed with the patient on 06/05/2025 that he wants full CODE STATUS by Daron Ayala MD Patient admits to THC use Vitals/I&O/Wt Last Vital Signs Temp 97.6 F 09/03/25 05:55 Pulse 120 H 09/03/25 08:12 Resp 26 H 09/03/25 07:23 BP 208/154 09/03/25 07:45 Pulse Ox 94 09/03/25 08:12 O2 Del Method Nasal Cannula 09/03/25 07:23 O2 Flow Rate 2 09/03/25 07:23 FiO2 60 09/03/25 08:12 09/02/25 09/03/25 09/03/25 22:59 06:59 14:59 Intake Total 0 / 0 Balance 0 / 0 Weight last 48 hrs Weight 49.9 kg Weight 65.771 kg Physical Exam Narrative: General: Severely lethargic patient. Combative. Remarkable respiratory distress. Diaphoretic. Neuro/Psych: Very encephalopathic. Moves all extremities. Chest/Resp: Frothy sputum oozing from the mouth. Diffuse bilateral crackles. CVS: Severe tachycardia, heart rate of 140 bpm. Otherwise, regular rhythm. No obvious murmurs appreciated. GI: Soft and non-tender abdomen. No obvious organomegaly. Extremities: Bilateral equal pulses. No obvious pitting pedal edema. Skin: No obvious skin rashes or significant lesions. Significantly cool extremities. MSK: No obvious joint effusions or bony deformities noted. Data 09/03/25 06:42 09/03/25 06:42 CXR: My impression: Chest imaging personally reviewed by me, and shows apparent diffuse pulmonary infiltrates that look more like pulmonary edema. Radiologist's impression: FINDINGS: Lungs: Extensive bilateral partially consolidative pneumonia is present in each lower lobe, left slightly greater than right. The right infiltrate is slightly more nodular than before, the extensive left-sided infiltrate is new. Pleural spaces: Unremarkable. No pleural effusion. No pneumothorax. Heart/Mediastinum: See Vasculature finding. Vasculature: Mild cardiomegaly and uncoiling of the thoracic aorta. Bones/joints: Unremarkable. IMPRESSION: Fairly extensive bilateral pneumonia. EKG 1: My Interpretation: First EKG done at 6.02AM shows apparent sinus tachycardia without significant ST abnormalities. Senior Marketing Analyst Interpretation: ECTOPIC ATRIAL TACHYCARDIA WITH FIRST DEGREE AV BLOCK MODERATE INTRAVENTRICULAR CONDUCTION DELAY [110+ ms QRS DURATION] MINIMAL ST DEPRESSION [0.025+ mV ST DEPRESSION] EKG 2: My Interpretation: Second EKG done at 8:46 AM this morning shows apparent sinus tachycardia with no significant ST abnormalities appreciated by me. Senior Marketing Analyst Interpretation: SINUS RHYTHM INTRAVENTRICULAR CONDUCTION DELAY [130+ ms QRS DURATION] ABG Interpretation 1: 09/03/25 08:22 ABG pH 6.98 L* ABG pCO2 66.4 H* ABG pO2 105.0 H ABG HCO3 15.7 L ABG O2 Saturation 92.3 ABG Base Excess -15.6 L My Interpretation: Severe acute metabolic acidosis A&P Assessment and plan 1. Acute pulmonary edema: The initial impression ago was the patient is an uric. However, I was later informed that his pants were wet, therefore suggested he was make urine. Consequently, one-time dose of IV Lasix given. 2. Acute respiratory failure with hypoxia: Likely from #1 above, with reported pneumonia in the chest x-ray. Patient currently on BiPAP, continue with this. The mother later came around, advised that patient had told them once during the week that he did not want to be intubated. I am not sure the circumstances under which this information was given, and whether patient remained this or not. I would like this to be put in writing, so that I could officially make patient DNR without fear of contradiction. 3. Pneumonia of both lungs due to infectious organism, unspecified part of lung: Evaluated hospital admission, I will treat this as hospital-associated pneumonia. Patient has some IV cefepime and vancomycin; pharmacy to dose. 4. Acute respiratory distress: See #1 and #2 and #3 above. 5. Acute metabolic acidosis: Likely due to combination of factors, including the acute on chronic CKD with severe acidemia: One-time dose of sodium bicarb given. Defer further treatment/advised to nephrology teams. 6. Hypertensive emergency: Unable to respond to 2 doses of labetalol; nicardipine drip started. 7. Acute metabolic encephalopathy: Apparent to due to combination of some or all of the above. Monitor closely. At this moment, I do not think patient has capacity to make any decision. Therefore, I will continue to sedate/tocolyse him with Precedex for the next 6 to 12 hours. Reassess in the morning, and take it from there. 8. Uremia, acute: See above. Dr. Faust spoken to personally by me, and he recommended starting patient on dialysis immediately. He will come see patient later. Defer to them for further advice. 9. Acute hyperkalemia: Patient got some calcium gluconate, bicarb, dextrose plus insulin. Defer to nephrology, otherwise, for further advice on this. 10. ESRD on dialysis: Nephrology consulted. Also, see #8 problem above. 11. Noncompliance with medication regimen: Plan: See the notes & comments above in the Assessment & Plan Section. Patient is currently admitted to the ICU, where he is expected to be here for the next 2 to 3 days. In the meantime, patient's medium to long-term prognosis appears very dim, or guarded at best. Upon review about 1-2 hours later, after he has been on BiPAP for more than an hour, he looks much better. The vital signs are much more stable, with heart rate dropping into the 100s, oxygen saturation staying around 90, and respiratory rate in the 30s. Blood pressure has also dropped down to the 160s/90s, on room air from 200s/120s mmHg. Will get a repeat ABG, as well as get a repeat chest x-ray. Going forward, we will continue ever ongoing treatment plans, and make further changes as needed. See my orders for more details. Meanwhile, patient's mother later came around, and we discussed extensively. She makes clear to me that the patient is very stubborn, and makes a lot of erratic decisions and the irrational and impulsive statements. She also further clarifies that they (the parents) had advised him (patient) to put the directive into writing & signed, but he apparently declined to do this. This all puts into a big question the validity and/or seriousness of his claimed/reported request last week by the patient to be made DNR when he presents to the hospital again. Given all of these, after due considerations, I will take the request from the parents to make patient DNR in advisement, pending when this is confirmed by the patient and/or seen in put in writing. If patient codes, this advice would be put into consideration in continuing further life-saving care and interventions, including cardiac resuscitation. So, at the very moment, I will keep patient FULL CODE ti further readvised or dissuaded. PDMP PDMP Reviewed: Not Reviewed Attestations Medical Necessity Statement*: Patient admitted for apparent severe clinical condition, as outlined in the Assessment & Plan section above. Patient will need up to 2 midnight stay, estimated, at least, to adequately and appropriately treat and optimally control above-named clinical conditions. Time Spent in Patient Care: Greater than 35 minutes Critical Care Time: The high probability of a clinically significant, sudden or life threatening deterioration of the patient's [renal, neurologic, respiratory, cardiovascular, etc] system(s) required my full and direct attention, intervention and personal management. The critical care time is as shown. This time is in addition to time spent performing any reported procedures but includes the following: [x] Data and vital sign review and interpretation [x] Patient assessment, examination and intervention [x] Documentation [x] Medication orders and management Critical Care Time (min): 60 Coding Level of Care Code Critical Care >/= 30 minutes Critical care time (in minutes): 60 The high probability of a clinically significant, sudden or life threatening deterioration, as referenced in this documentation, required my full and direct attention, intervention and personal management. The critical care time shown is in addition to time spent performing any reported separately billable procedures and includes the following: [x] Data and vital sign review and interpretation [x] Patient assessment, examination and intervention [x] Medication orders and management [x] Patient/Family updates as able [x] Care Coordination and Documentation. Diagnoses Acute pulmonary edema J81.0 Acute respiratory failure with hypoxia J96.01 Pneumonia of both lungs due to infectious organism, unspecified part of lung J18.9 Pneumonia type: due to unspecified organism Lung location: unspecified part of lung Acute respiratory distress R06.03 Acute metabolic acidosis E87.21 Hypertensive emergency I16.1 Acute metabolic encephalopathy G93.41 Uremia, acute N19 Acute hyperkalemia E87.5 ESRD on dialysis N18.6; Z99.2 Noncompliance with medication regimen Z91.148
[2025-09-03] MEDS: FUROsemide 10 mg/mL SDV 4mL 40 MG (09:16)
[2025-09-03 09:20] LABS: Lactic Sepsis W/Reflex 1.5 mmol/L (0.5-2.2)
[2025-09-03] MEDS: pantoprazole 40 mg SDV IVP (09:25)
[2025-09-03] MEDS: LORazepam 2 mg/mL INJ 1 mL IVP ×4 (09:26→23:54)
[2025-09-03] MEDS: FUROsemide 10 mg/mL SDV 4mL 40 MG IVP (09:26)
--- NOTE | 2025-09-03 09:48 | PM.CONSULT ---
Providers/Reason For Consult Consulting Physician/Specialty*: Reyes Wilson md / Telenephrology Reason for Consult*: ESRD, volume overload, hyperkalemia Requesting Physician: Dr Carreon Attending Physician: Jack Carreon MD Primary Care Provider: Beverly Veronica MD History of Present Illness History of Present Illness Vance Sainz is a 25 year old male he was admitted this morning with severe shortness of breath altered mental status confusion.The patient missed multiple dialysis episodes. Unfortunately has a history of doing this. Patient was made to the ICU given Precedex started on BiPAP potassium treated medically I was called. Dialysis nurse was already called to initiate emergent dialysis. Review of Systems Narrative: Confusion shortness of breath headaches. + Altered mental status and weakness. On BiPAP. I am unable to obtain further history or review of systems at this time as he is confused and lethargic Medications/Allergies Home Medications ?Medication ?Instructions ?Recorded ?Confirmed ?Last Taken ?Type clonazepam 1 mg tablet (Klonopin) 1 mg PO BID PRN anxiety #10 tabs 01/09/25 09/03/25 02/12/25 09:00 Rx hydralazine 100 mg tablet 100 mg PO TID 04/05/25 09/03/25 Unknown History sumatriptan 20 mg/actuation nasal 20 mg intranasal Q12H PRN Migraine 04/05/25 09/03/25 Unknown History spray Headache fluoxetine 10 mg capsule 10 mg PO DAILY 06/28/25 09/03/25 07/09/25 History acetaminophen 325 mg tablet 650 mg (2 x 325 mg) PO Q6H PRN 06/29/25 09/03/25 07/09/25 Rx Mild/Mod Pain Or Temp >/= 101 #30 tabs clonidine HCl 0.1 mg tablet 0.2 mg (2 x 0.1 mg) PO TID #90 tabs 06/29/25 09/03/25 07/09/25 Rx divalproex 500 mg tablet,delayed 500 mg PO BID #60 tabs 06/29/25 09/03/25 07/09/25 Rx release sodium zirconium cyclosilicate 5 5 g PO DAILY #11 ea 07/12/25 09/03/25 Unknown Rx gram oral powder packet (Lokelma) prednisone 5 mg tablet 5 mg PO DAILY 07/17/25 09/03/25 Unknown History sevelamer carbonate 800 mg tablet See Rx Instructions .Route .COMPLEX 07/17/25 09/03/25 Unknown History labetalol 100 mg tablet 300 mg (3 x 100 mg) PO BID 30 days 08/11/25 09/03/25 Unknown Rx #180 tabs losartan 50 mg tablet 100 mg (2 x 50 mg) PO DAILY 30 08/11/25 09/03/25 Unknown Rx days #120 tabs nifedipine 90 mg tablet,extended 90 mg PO DAILY 30 days #30 tabs 08/11/25 09/03/25 Unknown Rx release oxycodone 5 mg tablet 5 mg PO Q8H PRN Pain 09/03/25 09/03/25 Unknown History Allergies Allergy/AdvReac Type Severity Reaction Status Date / Time NSAIDS (Non-Steroidal Allergy Severe unable to Verified 06/27/25 20:41 Anti-Inflamma take due to kidney disease sertraline (From Zoloft) Allergy Unknown Verified 06/27/25 20:41 Current Medications Generic Name Dose Route Start Last Admin Trade Name Freq PRN Reason Stop Dose Admin Enoxaparin Sodium 30 mg 09/03/25 09:00 09/03/25 09:15 Enoxaparin 30 Mg/0.3 Ml Syringe SUBCUT 30 mg Q24H OMAR Administration Dextrose 250 mls @ 1,000 mls/hr 09/03/25 07:33 09/03/25 08:35 D10w IV 1,000 mls/hr PRN PRN Administration HYPOGLYCEMIA Dexmedetomidine/Sodium Chloride 400 mcg in 100 mls @ 0 mls/hr 09/03/25 09:00 09/03/25 09:02 Precedex IV 1 mcg/kg/hr .Q0M OMAR 12.48 mls/hr Protocol Administration Per Protocol Pantoprazole Sodium 40 mg 09/03/25 09:00 09/03/25 09:25 Pantoprazole 40 Mg Sdv IVP 40 mg DAILY OMAR Administration PFSH Acute PFSH: Medical History (Updated 09/03/25 @ 07:44 by Serafin Peña MD) Anemia Renal transplant failure and rejection Kidney transplant failure Noncompliance with renal dialysis Adrenal insufficiency Hypoglycemia CKD (chronic kidney disease) stage V requiring chronic dialysis Generalized anxiety disorder Other stimulant dependence, in remission Problems related to lack of adequate sleep Substance abuse Depression Anxiety Surgical History Kidney transplant recipient Social History Smoking and tobacco/nicotine status: tobacco/nicotine user, details unknown e-cigarettes E-Cigarette Details: vaporizer device and with nicotine E-cig/vape details: 6 mg and smokeless tobacco Smokeless tobacco user: chewing tobacco Smokeless tobacco details: 1 can/3 days. Quit status (tobacco/nicotine): has tried quititng Number of times tried to quit tobacco: 4 Second hand smoke exposure: No Alcohol intake: never Substance/Drug Use: current Substance/Drug use frequency: Special occassions/opportunity only Additional social history: Patient uses marijuana 1 g every other day he has remote history of some meth use. He reports chewing tobacco and using nicotine pouches but denies smoking cigarettes. He denies suicidal ideation. Patient is companied by his girlfriend and his CODE STATUS is always been full code confirmed with the patient on 06/05/2025 that he wants full CODE STATUS by Daron Ayala MD Patient admits to THC use Vitals/I&O/Wt Last Vital Signs Temp 97.6 F 09/03/25 05:55 Pulse 120 H 09/03/25 08:12 Resp 26 H 09/03/25 07:23 BP 208/154 09/03/25 07:45 Pulse Ox 94 09/03/25 08:12 O2 Del Method Nasal Cannula 09/03/25 07:23 O2 Flow Rate 2 09/03/25 07:23 FiO2 60 09/03/25 08:12 09/02/25 09/03/25 09/03/25 22:59 06:59 14:59 Intake Total 0 / 0 Balance 0 / 0 Weight last 48 hrs Weight 49.9 kg Weight 65.771 kg Physical Exam Narrative: Blood pressure elevated. On BiPAP Uncomfortable. HEENT normocephalic atraumatic Neck is supple Lungs have crackles bilaterally. Heart regular. Abdomen is soft positive bowel sounds. Extremities trace edema. Dialysis access right upper extremity AV fistula with thrill and bruit. Patient was examined by nurse telehealth visit. A/V equipment was used as this was a telehealth visit. Data 09/03/25 06:42 09/03/25 06:42 A&P Assessment and plan 1. 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 Patient unfortunately has poor compliance with dialysis and has used drugs in the past. Patient has also had septicemia recently been intubated in the past. Patient is here with confusion altered mental status hypertensive urgency. agree w/ cardene drip 1. Emergent dialysis with fluid removal 2. Hyperkalemia monitor with dialysis 3. Increased anion gap metabolic acidosis. Patient also has respiratory acidosis. normal lactate. 4. Elevated BNP remove fluids on dialysis 6. please send urine tox 7. consider psych evaluation Plan: emergent HD PDMP PDMP Reviewed: Not Reviewed Consult Attestations Medical Necessity Statement: htn emergency, hyperkalemia, AMS, volume overload Time Spent in Patient Care: Greater than 35 minutes (>than 50% of time spent in counselling and/or direct pt care on unit). Coding Level of Care Code Acute Code for Chg Fwd Diagnoses ESRD on hemodialysis N18.6; Z99.2
[2025-09-03] MEDS: nicardipine 20 MG/200 ML PREMIX 50 MG IV ×3 (09:55→22:19)
--- NOTE | 2025-09-03 10:00 | PC.NURSE ---
sedated now resting with bipap in place , precedex gtt and cardene gtt infusing blood pressure better control monitor now sr 90s mother at bedside pending dialysis emergent
[2025-09-03 10:31] LABS: Hepatitis B Surface Antigen Non-Reactive (Nonreactive)
[2025-09-03] MEDS: heparin, porcine 1,000 unit/mL INJ 10 mL 1000 UNIT IV (10:50)
--- NOTE | 2025-09-03 12:42 | XRR_ITS ---
PROCEDURE INFORMATION: Exam: XR Chest Exam date and time: 09/03/2025 4:38 PM Age: 25 years old Clinical indication: Shortness of breath post BiPAP TECHNIQUE: Imaging protocol: Radiologic exam of the chest. Views: 1 view. COMPARISON: CR (CHEST, ) 09/03/2025 6:26 AM FINDINGS: Lungs: Patchy opacities throughout the bilateral mid and lower lungs, increased compared to exam from 6:27 a.m. today. Pleural spaces: Probable left pleural effusion no pneumothorax. Heart/Mediastinum: Cardiac silhouette is obscured by adjacent opacities. Bones/joints: Unremarkable. XR/XR chest 1V portable [id number] IMPRESSION: Worsening bilateral patchy opacities. Probable left pleural effusion, new.
--- NOTE | 2025-09-03 14:48 | PHA.VACGOAL ---
Vancomycin Goal - Goal Vancomycin Goal:: 15-20 mg/L Vancomycin Indication:: Pneumonia - Therapy Current therapy:: Cefepime Day of therpy:: Day []of [] . Actual body weight (kg): 49.9 kg - Data Labs: WBC 16.71 10^3/uL (3.29-11.43) H 09/03/25 06:42 RBC 2.50 10^6/uL (3.85-5.65) L 09/03/25 06:42 Hgb 7.90 g/dL (11.27-16.99) L 09/03/25 06:42 Hct 25.9 % (37-53) L 09/03/25 06:42 MCV 103.6 fl (82-101) H 09/03/25 06:42 MCH 31.6 pg (27-33) 09/03/25 06:42 MCHC 30.5 g/dL (30-55) 09/03/25 06:42 RDW 19.2 % (12.1-15.1) H 09/03/25 06:42 Sodium 142 mmol/L (136-145) 09/03/25 06:42 Potassium 7.7 mmol/L (3.5-5.1) H* 09/03/25 06:42 Chloride 102 mmol/L (98-107) 09/03/25 06:42 Carbon Dioxide 17 mmol/L (22-29) L 09/03/25 06:42 Anion Gap 30.7 (5-19) H 09/03/25 06:42 BUN 118 mg/dL (6-20) H* D 09/03/25 06:42 Creatinine 15.8 mg/dL (0.7-1.2) H* 09/03/25 06:42 GFR Calculation 3.8 mL/min (90-130) L 09/03/25 06:42 Treatment plan:: new consult Regimen:: New start vancomycin for Pneumonia. Patient is receiving HD today 09/03/25. 1000 mg load dose ordered.
[2025-09-03] MEDS: cefepime 1,000 mg SDV 1000 MG IVP (14:59)
[2025-09-03] MEDS: water for injection-sterile 10 ML 10000 ML (14:59)
--- NOTE | 2025-09-03 15:16 | PC.NURSE ---
dialysis complete, 3500cc removed when awaken becomes very agitated and pulling off all lines requires al lot of redirection. less frothing edema from mouth at this time
--- NOTE | 2025-09-03 16:13 | PC.NURSE ---
reposition linen change done and bath done , continues to have frothy bloody sputum at this time on bipap
--- NOTE | 2025-09-03 18:59 | PC.NURSE ---
Addendum entered by Sophia Kruger RN 09/03/25 19:14: Witnessed conversation with patient's mother and girlfriend with [facility]. Original Note: talked at length with mother and girlfriend at bedside aware of worsening cxr and status mother understand but does not want to sign no intubation order so explained that he would be a full code and if condition warrented then he would be intubated, reviewed overall plan night to keep sedated and bipap in place until am, when they could reassess status
--- NOTE | 2025-09-03 21:14 | XRR_ITS ---
PROCEDURE INFORMATION: Exam: XR Chest Exam date and time: 09/03/2025 9:16 PM Age: 25 years old Clinical indication: Shortness of breath, potential aspiration TECHNIQUE: Imaging protocol: Radiologic exam of the chest. Views: 1 view. COMPARISON: CR (CHEST, ) 09/03/2025 4:38 PM FINDINGS: Lungs: Patchy opacities in the bilateral mid and lower lungs, slightly increased and more confluent in the lung bases compared to prior exam. Pleural spaces: No pneumothorax. Probable bilateral pleural effusions. Heart/Mediastinum: Cardiac silhouette is poorly evaluated due to adjacent opacities. Bones/joints: Unremarkable. XR/XR chest 1V portable [id number] IMPRESSION: Patchy opacities in the bilateral mid and lower lungs. These appear more confluent in the lung bases on the current exam compared to prior exam. This appearance may be secondary to increasing opacities versus new pleural effusions. Differential includes pneumonia and/or aspiration.
[2025-09-03 21:31] LABS: ABG PCO2 32.9 mmHg (35-45); ABG PH Result 7.49 (7.35-7.45); Alveolar-Arterial Oxygen Gradi 8.8 mmHg (5-10); Arterial Blood Gas Hematocrit 31.2 % (42-52); Blood Gas Allen Test Pos; Blood Gas LPM 15.0 %; Blood Gas Operator Identificat SAM; Blood Gas Sample Site Radial, left; Blood Gas Sample Type Arterial; Carboxyhemoglobin 1.6 %THgb (0.4-20.1); Glucose Level-ABG 75.0 mg/dL (70-115); HCO3 ABG 25.1 mmol/L (22-26); Ionized Calcium Level - ABG 1.1 mmol/L (1.1-1.4); Methemoglobin 0.3 % (0.4-1.5); Oxygen Saturation ABG 76.4; PO2 ABG 41.3 mmHg (80.0-100.0); Potassium Level - ABG 6.0 mmol/L (3.5-5.0); Sodium Level - ABG 142.0 mmol/L (131-143)
--- NOTE | 2025-09-03 21:54 | PC.RESP ---
2100 Called to patient room for decreasing sats. Pt in distress and starting to vomit. RN and RT pulled the BIPAP mask off and suctioned patient. placed on oxymask at 15lpm. Pt c/o sob and was anxious. refused BIPAP. RT called hospitalist to come see patient. ABG's done. Pt made DNR. Nebs ordered and CXRay ordered.
[2025-09-03] MEDS: morphine 4 mg/mL SDV 1 mL 1 MG IVP (22:28)
--- NOTE | 2025-09-03 22:45 | PC.NURSE ---
Respiratory therapist and this nurse at bedside with patient. Patient began vomiting into Bipap mask. Removed Bipap mask and suctioned patient's mouth. Patient placed on oxymask by RT. Patient maintaining saturations in the 70s on oxymask but patient unable to go back on Bipap due to vomiting. Contacted Dr Morrison regarding patient's respiratory status. Dr Morrison to bedside. Received order for chest x-ray, ABG, and placement of NG tube. Provided Dr Morrison with patient's mother's phone number to discuss patient's respiratory status and possibility of intubation. Dr Morrison told this RN that patient's family had stated he was to be a DNI. Called Dr Morrison to clarify if patient was an AND or DNI as he had stated DNI to this nurse but placed order for AND status. Dr Morrison stated that he had called patient's family back and that they wished him to be an AND. Charge nurse Eddi spoke with patient's mother to clarify patient's code status and the wishes of the family regarding resuscitation. She reiterated that patient was to be a DNR. This nurse spoke with patient's father regarding NG tube placement and what that entailed. Answered all questions. Patient agitated and thrashing around in bed upon NG tube placement. Patient stating, My nose hurts. It childs. I need to sit up. I don't feel right. I feel like I'm going to be sick. Administered ordered morphine and zofran to patient. Patient now resting in bed on precedex drip.
[2025-09-03] MEDS: methylPREDNISolone sod succ 125 mg/2 mL INJ IVP (23:27)
--- NOTE | 2025-09-03 23:46 | XRR_ITS ---
PROCEDURE INFORMATION: Exam: XR Chest Exam date and time: 09/03/2025 11:56 PM Age: 25 years old Clinical indication: Device placement; Ng tube; Additional info: Ng tube placement TECHNIQUE: Imaging protocol: Radiologic exam of the chest. Views: 1 view. COMPARISON: CR (CHEST, ) 09/03/2025 9:16 PM FINDINGS: Tubes, catheters and devices: Interval placement of an NG tube with the tip projecting over the stomach and the side hole beyond the GE junction. Lungs: Unchanged opacities in the bilateral mid and lower lungs. Pleural spaces: Probable small pleural effusions. No pneumothorax. Heart/Mediastinum: Cardiac silhouette is not well evaluated due to adjacent opacities. Bones/joints: Unremarkable. XR/XR chest 1V portable [id number] IMPRESSION: 1. NG tube is present with the tip projecting over the stomach and the side hole beyond the GE junction. 2. Unchanged opacities in the mid and lower lungs with probable small left pleural effusion.
[2025-09-04] VITALS (107 sets, daily range): BP systolic 123–210; BP diastolic 68–134; PULSE 69–109; RESP 6–38; TEMP 36.8–37.6; O2SAT 78–100
[2025-09-04] MEDS: dexmedeTOMIDine 0.9 % NaCL 400 MCG/100 ML PREMIX 12.48 MCG IV ×3 (01:20→11:03)
[2025-09-04] MEDS: nicardipine 20 MG/200 ML PREMIX 50 MG IV ×4 (02:12→18:05)
[2025-09-04 05:16] LABS: Hematocrit 24.1 % (37-53); Hemoglobin 7.70 g/dL (11.27-16.99); Mean Corpuscular HGB Conc 32.0 g/dL (30-55); Mean Corpuscular Hemoglobin 32.8 pg (27-33); Mean Corpuscular Volume 102.6 fl (82-101); Nucleated Red Blood Cells % 0 %; Platelet Count 139 10^3/cmm (157-399); Red Blood Count 2.35 10^6/uL (3.85-5.65); White Blood Count 7.63 10^3/uL (3.29-11.43)
[2025-09-04 05:34] LABS: Alanine Aminotransferase < 5 U/L (0-41); Albumin Level 4.0 g/dL (3.5-5.2); Alkaline Phosphatase 76 U/L (40-130); Anion Gap 24.2 (5-19); Aspartate Amino Transferase 13 U/L (0-40); Blood Urea Nitrogen 58 mg/dL (6-20); Calcium 9.3 mg/dL (8.5-10.5); Carbon Dioxide 24 mmol/L (22-29); Chloride 99 mmol/L (98-107); Globulin 2.0 g/dL (1.3-4.6); Glucose 136 mg/dL (65-115); Magnesium 2.3 mg/dL (1.7-2.3); Osmolality Calculated 308 mOsm/kg (285-295); Sodium 140 mmol/L (136-145); Total Protein 6.0 g/dL (6.6-8.7)
[2025-09-04 05:51] LABS: Potassium 7.2 mmol/L (3.5-5.1)
[2025-09-04 05:52] LABS: ABG PCO2 39.0 mmHg (35-45); ABG PH Result 7.42 (7.35-7.45); Arterial Blood Gas Hematocrit 30.4 % (42-52); Blood Gas Allen Test Pos; Blood Gas Operator Identificat SAM; Blood Gas Sample Site Radial, left; Blood Gas Sample Type Arterial; HCO3 ABG 25.1 mmol/L (22-26); PO2 ABG 148.0 mmHg (80.0-100.0); PO2 FiO2 Ratio Arterial Blood 185
--- NOTE | 2025-09-04 06:00 | PC.NURSE ---
Addendum entered by Sophia Kruger RN 09/04/25 06:26: Order for D5NS gtt and insulin gtt entered by Dr Morrison. See MAR. Original Note: Reported critical labs to Dr Morrison. Potassium 7.2, creatinine 9.4, and phosphorus 8.4. No new orders received.
[2025-09-04] MEDS: pantoprazole 40 mg SDV IVP (06:41)
[2025-09-04] MEDS: dextrose 5%-sod chloride 0.9% 1,000 ML 100 ML IV (07:23)
--- NOTE | 2025-09-04 07:41 | P.PN_ITS ---
Subjective 2 Subjective: more awaek, still on cardene drio and bipap Medications: Reviewed: Yes Medication Review Details: Current Medications Acetaminophen (Acetaminophen 325 Mg Tablet) 650 mg NG-TUBE Q6H PRN PRN Reason: FEVER Last Admin: 09/04/25 00:16 Dose: 650 mg Albuterol/Ipratropium (Ipratropium-Albuterol 3 Ml Neb) 3 ml INHALATION Q4H.RESPIRATORY OMAR Last Admin: 09/04/25 03:33 Dose: 3 ml Calcium Gluconate (Calcium Gluconate 0.1 Gm/Ml 10% Sdv 10ml) 1 gm IVP ONCE ONE Stop: 09/04/25 07:39 Cefepime HCl (Cefepime 1,000 Mg Sdv) 1,000 mg IVP Q24H OMAR; Protocol Last Admin: 09/03/25 14:59 Dose: 1,000 mg Dextrose/Sodium Chloride (Dextrose 5%-Ns 0.9% 1,000 Ml Bag) 100 ml IV CONT OMAR Enoxaparin Sodium (Enoxaparin 30 Mg/0.3 Ml Syringe) 30 mg SUBCUT Q24H OMAR Last Admin: 09/03/25 09:15 Dose: 30 mg Glucagon (Glucagon 1 Mg/Ml Kit 1 Ml) 1 mg IM ONCE PRN; Protocol PRN Reason: Adult Acute Hypoglycemia Nursing Prot. Dextrose (D10w) 250 mls @ 1,000 mls/hr IV PRN PRN PRN Reason: HYPOGLYCEMIA Last Infusion: 09/03/25 11:40 Dose: Infused Dexmedetomidine/Sodium Chloride (Precedex) 400 mcg in 100 mls @ 0 mls/hr IV .Q0M OMAR; Protocol Last Admin: 09/04/25 05:53 Dose: 1 mcg/kg/hr, 12.48 mls/hr Nicardipine/Sodium Chloride (Cardene) 20 mg in 200 mls @ 0 mls/hr IV .Q0M OMAR; Protocol Last Admin: 09/04/25 05:53 Dose: 5 mg/hr, 50 mls/hr Dextrose (D5w) 500 mls @ 0 mls/hr IV ONCE PRN; Protocol PRN Reason: Adult Acute Hypoglycemia Prot Dextrose (D10w) 125 mls @ 750 mls/hr IV PRN PRN; Protocol PRN Reason: Adult Acute Hypoglycemia Nursing Protocol Dextrose (D10w) 250 mls @ 1,000 mls/hr IV PRN PRN; Protocol PRN Reason: Adult Acute Hypoglycemia Nursing Protocol Insulin Human Regular (Myxredlin 100 Unit/100 Ml Bag) 100 unit in 100 mls @ 0 mls/hr IV PROTOCOL OMAR Dextrose/Sodium Chloride (Dextrose 5%-Sod Chloride 0.9%) 1,000 mls @ 100 mls/hr IV .Q10H [facility] Last Admin: 09/04/25 07:23 Dose: 100 mls/hr Dextrose (D10w) 125 mls @ 750 mls/hr IV PRN PRN PRN Reason: HYPOGLYCEMIA Insulin Human Regular (Insulin Regular-Human 100 Units/1 Ml) 10 unit IVP ONCE ONE Stop: 09/04/25 07:39 Lorazepam (Lorazepam 2 Mg/Ml Inj 1 Ml) 2 mg IVP Q4H PRN PRN Reason: ANXIETY Last Admin: 09/03/25 23:54 Dose: 2 mg Morphine Sulfate (Morphine 4 Mg/Ml Sdv 1 Ml) 1 mg IVP Q2H PRN PRN Reason: SEVERE PAIN Last Admin: 09/03/25 22:28 Dose: 1 mg Ondansetron HCl (Ondansetron 2 Mg/Ml Sdv 2 Ml) 4 mg IVP Q6H PRN PRN Reason: NAUSEA AND VOMITING Last Admin: 09/03/25 22:28 Dose: 4 mg Pantoprazole Sodium (Pantoprazole 40 Mg Sdv) 40 mg IVP DAILY [facility] Last Admin: 09/04/25 06:41 Dose: 40 mg Vancomycin HCl (Vancomycin 1,000 Mg Sdv (Pharmacy Mix)) 0 mg XX PRN PRN PRN Reason: Pharmacy to Dose Vitals/I&O/Wt Last Vital Signs Temp 98.7 F 09/04/25 05:42 Pulse 81 09/04/25 06:00 Resp 19 H 09/04/25 06:00 BP 128/78 09/04/25 06:00 Pulse Ox 100 09/04/25 06:00 O2 Del Method BiPAP 09/04/25 03:33 O2 Flow Rate 2 09/03/25 07:23 FiO2 80 09/04/25 05:34 09/03/25 09/04/25 09/04/25 22:59 06:59 14:59 Intake Total 1027.261 / 1424.672 467.566 / 1892.238 Output Total 0 / 0 Balance 1027.261 / 1424.672 467.566 / 1892.238 Weight last 48 hrs Weight 49.9 kg Weight 65.771 kg Physical Exam 2 Narrative: Blood pressure noted on cardene drip On BiPAP, more awake and responsive then yesterday HEENT normocephalic atraumatic Neck is supple Lungs have crackles bilaterally. Heart regular. Abdomen is soft positive bowel sounds. Extremities trace edema. Dialysis access right upper extremity AV fistula with thrill and bruit. neuro- responds, lethargic but awakens, confused Patient was examined by nurse telehealth visit. A/V equipment was used as this was a telehealth visit. Data 09/04/25 04:57 09/04/25 04:57 A&P Assessment and plan 1. 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 Patient unfortunately has poor compliance with dialysis and has used drugs in the past. Patient has also had septicemia recently been intubated in the past. Patient is here with confusion altered mental status hypertensive urgency. 1. ESRD and hyperkalemia- repeat dialysis today 2. Hyperkalemia monitor with dialysis. give d50, reg insulin, and calcium 3. Increased anion gap metabolic acidosis. improved w/ dialysus 4. HTN-improving. wean off cardene drip. fluid removal on dialysis. will start amlodipine 5. anemia-please send iron studies 6. please send urine tox 7. consider psych evaluation 8. BIPAP as per hospitalist Plan: treat k, emergent HD. wean off cardene drip PDMP PDMP Reviewed: Not Reviewed Attestations 2 Medical Necessity Statement*: esrd, hyperkalemia, AMS, HTN Time Spent in Patient Care: 16 - 35 minutes (>than 50% of time sp ent in counselling and/or direct pt care on unit) . Coding Level of Care Code Acute Code for Chg Fwd Diagnoses ESRD on hemodialysis N18.6; Z99.2
[2025-09-04] MEDS: calcium gluconate 0.1 gm/mL 10% SDV 10mL 1 GM IVP (07:46)
[2025-09-04] MEDS: insulin regular-human 100 units/1 mL 10 UNIT IVP (07:56)
[2025-09-04 08:22] LABS: Iron 17 ug/dL (59-158); Total Iron Binding Capacity 169 mcg/dl; Unsaturated Iron Binding 152 ug/dL (112-347)
[2025-09-04 08:35] LABS: Ferritin 1581 ng/mL (30-400)
[2025-09-04] MEDS: heparin, porcine 1,000 unit/mL INJ 10 mL 1000 UNIT IV (09:30)
--- NOTE | 2025-09-04 09:56 | P.PN_ITS ---
Subjective 2 Subjective: Patient is seen again this morning in the ICU. He is still on BiPAP, states which is essentially maxed out. The heart rate is better controlled, however blood pressures are better controlled. He is still on nicardipine drip, as well as Precedex drip. He reportedly got worse respiration-strauss last night, and had some episodes of vomiting. For this, NG tube was passed, and intermittent suctioning started. The question of DNR came up last night, and the physician on-call last night and went ahead and made patient DNR, after reported consultation with the family. I was not informed of any request of the DNR status put in writing, as I was anticipating/suggesting yesterday. Medications: Medication Review Details: Precedex drip and nicardipine drip. V cefepime and vancomycin, IV fluids, IV D10 + insulin for hyperkalemia, etc. Vitals/I&O/Wt Last Vital Signs Temp 98.7 F 09/04/25 05:42 Pulse 81 09/04/25 07:47 Resp 27 H 09/04/25 07:46 BP 128/78 09/04/25 06:00 Pulse Ox 100 09/04/25 07:47 O2 Del Method BiPAP 09/04/25 07:46 O2 Flow Rate 2 09/03/25 07:23 FiO2 60 09/04/25 09:16 09/03/25 09/04/25 09/04/25 22:59 06:59 14:59 Intake Total 1027.261 / 1424.672 467.566 / 1892.238 132.249 / 132.249 Output Total 0 / 0 Balance 1027.261 / 1424.672 467.566 / 1892.238 132.249 / 132.249 Weight last 48 hrs Weight 49.9 kg Weight 65.771 kg Physical Exam 2 Narrative: General: Sedated patient. BiPAP initiated. Mild respiratory distress on BiPAP Chest/Resp: Bilateral crackles globally CVS: Tachycardic, heart rate in the 90s rhythm: Regular heart rate and rhythm. GI: Soft and non-tender abdomen. No obvious organomegaly. Extremities: Bilateral equal pulses. No obvious pitting pedal edema. Data 09/04/25 04:57 09/04/25 04:57 Micro: Microbiology 09/03/25 06:42 Blood Culture - Preliminary Blood NEGATIVE TO DATE 09/03/25 06:40 Blood Culture - Preliminary Blood NEGATIVE TO DATE 09/04/25 04:58 Blood Culture - Preliminary Blood SPECIMEN COLLECTED 09/04/25 04:57 Blood Culture - Preliminary Blood SPECIMEN COLLECTED CXR: My impression: Chest x-ray image done at 9:16 PM last night reviewed by me. It shows bilateral worsening patchy to dense opacities. Radiologist's impression: Patchy opacities in the bilateral mid and lower lungs. These appear more confluent in the lung bases on the current exam compared to prior exam. This appearance may be secondary to increasing opacities versus new pleural effusions. Differential includes pneumonia and/or aspiration. Repeat CXR at 11.46.=pm: My impression: Image also reviewed by me, and shows apparent persistent bilateral dense to patchy opacities that are worse in the lower lobes. Radiologist's impression: 1. NG tube is present with the tip projecting over the stomach and the side hole beyond the GE junction. 2. Unchanged opacities in the mid and lower lungs with probable small left pleural effusion. A&P Assessment and plan 1. Acute respiratory failure with hypoxia: Resolving. Continue BiPAP, and wean off as tolerated. 2. Acute respiratory distress: Obviously resolved at this time. 3. Pneumonia of both lungs due to infectious organism, unspecified part of lung: . Otherwise stable. Continue on cefepime and vancomycin. Consider infectious disease consult for further advice, given nosocomial nature of infection. 4. Hypertensive emergency: Resolving and stabilizing with nicardipine drip. I see the bone process operator added amlodipine this morning; this sound like a good idea. I will put patient on scheduled oral anti-HTN meds especially now that he has an NG tube. Resume patient's home dose of clonidine, hydralazine, lorsartan & labetalol and other meds which he takes tid. That way, we can possibly controll his BP better and wean him off on the Cardene drip. 5. Acute metabolic encephalopathy: Resolving. 6. Acute metabolic acidosis: Results at this time. On ABG shows normal results 7. Acute pulmonary edema: Also resolving. 8. Acute hyperkalemia: Defer to nephrology on this. Getting dialysis this morning, is almost 9. Medical non-compliance: Noted. Apparently the crux of the matter. Plan: Patient remains critically ill. Like mentioned above, he is currently DNR/DNI, as ordered by the night physician. We will continue other ongoing treatment plans. Further plans to be adjusted as clinical picture evolves. I do spoke with Dr. Lange, the infectious disease expert, who is hereby consulted. See A&P above for more details. PDMP PDMP Reviewed: Not Reviewed Attestations 2 Medical Necessity Statement*: Patient admitted for apparent severe clinical condition, as outlined in the Assessment & Plan section above. Patient will need up to 2 midnight stay in the ICU or little to the medical floor, estimated, at least, to adequately and appropriately treat and optimally control above-named clinical conditions. Coding Level of Care Code 16941 Diagnoses Acute respiratory failure with hypoxia J96.01 Acute respiratory distress R06.03 Pneumonia of both lungs due to infectious organism, unspecified part of lung J18.9 Pneumonia type: due to unspecified organism Lung location: unspecified part of lung Hypertensive emergency I16.1 Acute metabolic encephalopathy G93.41 Acute metabolic acidosis E87.21 Acute pulmonary edema J81.0 Acute hyperkalemia E87.5 Medical non-compliance Z91.199
--- NOTE | 2025-09-04 11:39 | PM.CONSULT ---
Providers/Reason For Consult Consulting Physician/Specialty*: Melissa Lange MD/Infectious Disease Reason for Consult*: pneumonia/ARDS Requesting Physician: Jack Carreon MD Attending Physician: Jack Carreon MD Primary Care Provider: Beverly Veronica MD History of Present Illness History of Present Illness Vance Sainz is a 25 year old male with PMH failed renal transplant, currently on HD TTS, recently discharged from the hospital on 08/23/25 after being treated for MSSA bacteremia, pneumonia and seizures related to metabolic encephalopathy from missed dialysis. He has a h/o depression followed by psychiatry and has a h/o missing dialysis related to the same. He is currently admitted since 09/03/25 after presenting with shortness of breath in the setting of missing dialysis since discharge. He had been discharged with iv cefazolin 2g three times a week with dialysis due to MSSA bacteremia, however he has not received any abx either, presumably since he has not been to dialysis. He was in severe respiratory distress, lethargic and hypoxic with 02 sat 50-60%. CXR showed B/L infiltrates, likely a combination of pulmonary edema and pneuonia. ID consulted for abx recommendations given b/l pneumonia. He had been on Bipap support since admission, however at time of this assessment he is currently on 3lpm supplemental 02. per RN report, he had an episode of vomiting on bipap yesterday and now has an NGT. He is DNI therefore not intubated for airway protection. He has just completed dialysis. He remains lethargic, able to answer simple questions yes or no, able to answer his name. He had Review of Systems General: Reports: ROS unobtainable due to mental status Medications/Allergies Home Medications ?Medication ?Instructions ?Recorded ?Confirmed ?Last Taken ?Type clonazepam 1 mg tablet (Klonopin) 1 mg PO BID PRN anxiety #10 tabs 01/09/25 09/03/25 02/12/25 09:00 Rx hydralazine 100 mg tablet 100 mg PO TID 04/05/25 09/03/25 Unknown History sumatriptan 20 mg/actuation nasal 20 mg intranasal Q12H PRN Migraine 04/05/25 09/03/25 Unknown History spray Headache fluoxetine 10 mg capsule 10 mg PO DAILY 06/28/25 09/03/25 07/09/25 History acetaminophen 325 mg tablet 650 mg (2 x 325 mg) PO Q6H PRN 06/29/25 09/03/25 07/09/25 Rx Mild/Mod Pain Or Temp >/= 101 #30 tabs clonidine HCl 0.1 mg tablet 0.2 mg (2 x 0.1 mg) PO TID #90 tabs 06/29/25 09/03/25 07/09/25 Rx divalproex 500 mg tablet,delayed 500 mg PO BID #60 tabs 06/29/25 09/03/25 07/09/25 Rx release sodium zirconium cyclosilicate 5 5 g PO DAILY #11 ea 07/12/25 09/03/25 Unknown Rx gram oral powder packet (Lokelma) prednisone 5 mg tablet 5 mg PO DAILY 07/17/25 09/03/25 Unknown History sevelamer carbonate 800 mg tablet See Rx Instructions .Route .COMPLEX 07/17/25 09/03/25 Unknown History labetalol 100 mg tablet 300 mg (3 x 100 mg) PO BID 30 days 08/11/25 09/03/25 Unknown Rx #180 tabs losartan 50 mg tablet 100 mg (2 x 50 mg) PO DAILY 30 08/11/25 09/03/25 Unknown Rx days #120 tabs nifedipine 90 mg tablet,extended 90 mg PO DAILY 30 days #30 tabs 08/11/25 09/03/25 Unknown Rx release oxycodone 5 mg tablet 5 mg PO Q8H PRN Pain 09/03/25 09/03/25 Unknown History Allergies Allergy/AdvReac Type Severity Reaction Status Date / Time sertraline (From [employer]) Allergy Unknown Verified 06/27/25 20:41 Current Medications Generic Name Dose Route Start Last Admin Trade Name Freq PRN Reason Stop Dose Admin Acetaminophen 650 mg 09/03/25 23:47 09/04/25 00:16 Acetaminophen 325 Mg Tablet NG-TUBE 650 mg Q6H PRN Administration FEVER Albuterol/Ipratropium 3 ml 09/04/25 00:00 09/04/25 15:46 Ipratropium-Albuterol 3 Ml Neb INHALATION Not Given Q4H.RESPIRATORY OMAR Amlodipine Besylate 5 mg 09/04/25 07:55 09/04/25 07:59 Amlodipine 5 Mg Tablet PO Not Given DAILY OMAR Clonidine HCl 0.2 mg 09/04/25 13:00 09/04/25 12:02 Clonidine 0.1 Mg Tablet PO 0.2 mg TID OMAR Administration Lidocaine HCl 15 ml/ 0 ml 09/04/25 12:33 09/04/25 13:22 Diphenhydramine HCl 37.5 mg/ MUCOUS MEM 15 ml Nystatin 500,000 unit/ Al Q4H PRN Administration Hydrox/Mg Hydrox/Simethicone MOUTH PAIN 10 ml Enoxaparin Sodium 30 mg 09/03/25 09:00 09/04/25 10:07 Enoxaparin 30 Mg/0.3 Ml Syringe SUBCUT 30 mg Q24H OMAR Administration Hydralazine HCl 100 mg 09/04/25 13:00 09/04/25 12:03 Hydralazine 50 Mg Tablet PO 100 mg TID OMAR Administration Dextrose 250 mls @ 1,000 mls/hr 09/03/25 07:33 09/03/25 11:40 D10w IV Infused PRN PRN Infusion HYPOGLYCEMIA Dexmedetomidine/Sodium Chloride 400 mcg in 100 mls @ 0 mls/hr 09/03/25 09:00 09/04/25 16:06 Precedex IV 0.4 mcg/kg/hr .Q0M OMAR 4.99 mls/hr Protocol Titration Per Protocol Nicardipine/Sodium Chloride 20 mg in 200 mls @ 0 mls/hr 09/03/25 09:45 09/04/25 14:48 Cardene IV 5 mg/hr .Q0M OMAR 50 mls/hr Protocol Administration Per Protocol Dextrose 125 mls @ 750 mls/hr 09/04/25 07:38 09/04/25 12:25 D10w IV Infused PRN PRN Infusion HYPOGLYCEMIA Piperacillin Sod/Tazobactam 50 mls @ 12.5 mls/hr 09/04/25 12:45 09/04/25 13:24 Sod 3.375 gm/ Sodium Chloride IV 12.5 mls/hr Q12H OMAR Administration Labetalol HCl 200 mg 09/04/25 17:00 09/04/25 17:04 Labetalol 200 Mg Tablet PO 200 mg BID OMAR Administration Lorazepam 2 mg 09/03/25 08:46 09/03/25 23:54 Lorazepam 2 Mg/Ml Inj 1 Ml IVP 2 mg Q4H PRN Administration ANXIETY Morphine Sulfate 1 mg 09/03/25 11:48 09/04/25 11:54 Morphine 4 Mg/Ml Sdv 1 Ml IVP 1 mg Q2H PRN Administration SEVERE PAIN Ondansetron HCl 4 mg 09/03/25 08:46 09/03/25 22:28 Ondansetron 2 Mg/Ml Sdv 2 Ml IVP 4 mg Q6H PRN Administration NAUSEA AND VOMITING Pantoprazole Sodium 40 mg 09/03/25 09:00 09/04/25 06:41 Pantoprazole 40 Mg Sdv IVP 40 mg DAILY OMAR Administration Sevelamer Carbonate 1,600 mg 09/04/25 13:00 09/04/25 12:03 Sevelamer 800 Mg Tablet PO 1,600 mg TID OMAR Administration PFSH Acute PFSH: Medical History Anemia Renal transplant failure and rejection Kidney transplant failure Noncompliance with renal dialysis Adrenal insufficiency Hypoglycemia CKD (chronic kidney disease) stage V requiring chronic dialysis Generalized anxiety disorder Other stimulant dependence, in remission Problems related to lack of adequate sleep Substance abuse Depression Anxiety Surgical History Kidney transplant recipient Social History Smoking and tobacco/nicotine status: tobacco/nicotine user, details unknown e-cigarettes E-Cigarette Details: vaporizer device and with nicotine E-cig/vape details: 6 mg and smokeless tobacco Smokeless tobacco user: chewing tobacco Smokeless tobacco details: 1 can/3 days. Quit status (tobacco/nicotine): has tried quititng Number of times tried to quit tobacco: 4 Second hand smoke exposure: No Alcohol intake: never Substance/Drug Use: current Substance/Drug use frequency: Special occassions/opportunity only Additional social history: Patient uses marijuana 1 g every other day he has remote history of some meth use. He reports chewing tobacco and using nicotine pouches but denies smoking cigarettes. He denies suicidal ideation. Patient is companied by his girlfriend and his CODE STATUS is always been full code confirmed with the patient on 06/05/2025 that he wants full CODE STATUS by Daron Ayala MD Patient admits to THC use Vitals/I&O/Wt Last Vital Signs Temp 99.1 F 09/04/25 12:45 Pulse 106 H 09/04/25 15:46 Resp 22 H 09/04/25 15:46 BP 168/107 09/04/25 15:15 Pulse Ox 94 09/04/25 15:46 O2 Del Method Nasal Cannula 09/04/25 15:46 O2 Flow Rate 3 09/04/25 15:46 FiO2 60 09/04/25 09:16 09/04/25 09/04/25 09/04/25 06:59 14:59 22:59 Intake Total 467.566 / 1892.238 429.024 / 429.024 11.209 / 440.233 Output Total 0 / 0 Balance 467.566 / 1892.238 429.024 / 429.024 11.209 / 440.233 Weight last 48 hrs Weight 49.9 kg Weight 65.771 kg Physical Exam Narrative: General: lethargic, ill appearing, AO x2 HEENT: PERRLA, pupils bilaterally equal and reactive, pallors not present Chest: coarse breath sounds Abdomen: Soft, nontender, non distended Neuro: No focal deficits, lethargic, ill appearing Data 09/04/25 04:57 09/04/25 04:57 Micro: Microbiology 09/03/25 06:42 Blood Culture - Preliminary Blood NEGATIVE TO DATE 09/03/25 06:40 Blood Culture - Preliminary Blood NEGATIVE TO DATE 09/04/25 04:58 Blood Culture - Preliminary Blood SPECIMEN COLLECTED 09/04/25 04:57 Blood Culture - Preliminary Blood SPECIMEN COLLECTED Other data: Patient: Vance Sainz Unit #: [id number] : 2000 Age/Sex: 25 / M ADM Date: 09/03/25 Loc: ICU Room/Bed: [place] [address]: Jack Carreon MD Ordering Provider/Ordering MD: Flakito Morrison DO Date of Service: 09/03/25 Procedure(s): XR chest 1V portable [id number] Accession Number(s): [id number] Report Number: [id number] PROCEDURE INFORMATION: Exam: XR Chest Exam date and time: 09/03/2025 9:16 PM Age: 25 years old Clinical indication: Shortness of breath, potential aspiration TECHNIQUE: Imaging protocol: Radiologic exam of the chest. Views: 1 view. COMPARISON: CR (CHEST, ) 09/03/2025 4:38 PM FINDINGS: Lungs: Patchy opacities in the bilateral mid and lower lungs, slightly increased and more confluent in the lung bases compared to prior exam. Pleural spaces: No pneumothorax. Probable bilateral pleural effusions. Heart/Mediastinum: Cardiac silhouette is poorly evaluated due to adjacent opacities. Bones/joints: Unremarkable. XR/XR chest 1V portable [id number] IMPRESSION: Patchy opacities in the bilateral mid and lower lungs. These appear more confluent in the lung bases on the current exam compared to prior exam. This appearance may be secondary to increasing opacities versus new pleural effusions. Differential includes pneumonia and/or aspiration. A&P Assessment and plan 1. Sepsis: 2. Acute pulmonary edema: 3. Multifocal pneumonia: 4. Chronic steroid use: Plan: 25 year old male with h/o failed kidney transplant, on chronic steroid prednisone 5 mg (?compliance) ,non compliant with dialysis, recent admission for MSSA bacteremia, pneumonia with moraxella catarrhalis and sepsis readmitted on 09/03 with acute respiratory distress. Discharged with iv cefazolin with HD on last discharge on 08/23, however has likely not received any abx due to missed dialysis. Currently CXR shows B/l infiltrates likely related to combination of pneumonia and pulmonary edema. He had a witnessed episode of vomiting yesterday therefore aspiration likely contributing as well. Plan: Change cefepime to zosyn renally dosed for additional anerobic coverage for aspiration continue iv vancomycin Blood cx pending Check MRSA nasal screen , sputum cx and gram stain , urine legionella ag check CT chest w/contrast to assess for PE, possible septic emboli , possible empyema negative flu, covid and RSV PCR given chronic steroid use and B/L infiltrates, check sputum PJP PCR, serum fungitell and LDH will follow PDMP PDMP Reviewed: Not Reviewed Coding Level of Care Code Acute Code for Chg Fwd Diagnoses Sepsis A41.9 Acute pulmonary edema J81.0 Multifocal pneumonia J18.8 Chronic steroid use
[2025-09-04] MEDS: morphine 4 mg/mL SDV 1 mL 1 MG IVP ×2 (11:54→23:26)
--- NOTE | 2025-09-04 12:33 | CTR_ITS ---
PROCEDURE INFORMATION: Exam: CT Chest With Contrast; Diagnostic Exam date and time: 09/04/2025 2:19 PM Age: 25 years old Clinical indication: Other: Worsening infiltrates; Additional info: Worsening infiltrates, recent mssa bacteremia and pneumonia, now with worsened TECHNIQUE: Imaging protocol: Diagnostic computed tomography of the chest with contrast. Radiation optimization: All CT scans at this facility use at least one of these dose optimization techniques: automated exposure control; mA and/or kV adjustment per patient size (includes targeted exams where dose is matched to clinical indication); or iterative reconstruction. Contrast material: [id number]; Contrast volume: 100 ml; Contrast route: INTRAVENOUS (IV); COM[place]ISON[place] [id number] 08/17/2025 8:36 PM; chest radiograph 09/04/2025 RADIATION DOSE METRICS: Total DLP (mGy-cm): 269.03 FINDINGS: Tubes, catheters and devices: There is a nasogastric tube which extends into the stomach. Lungs: There is extensive consolidation in the lower lobes bilaterally, where previously there were only ground-glass opacities. Ground-glass opacities and patchy consolidation seen in the right middle lobe and lingula as well as the left upper lobe. This is also increased/new. Ground-glass opacities and small scattered nodular consolidation in the right upper lobe are seen. Pleural spaces: Unremarkable. No pneumothorax. No pleural effusion. Heart: Unremarkable. No cardiomegaly. No pericardial effusion. Lymph nodes: Unremarkable. No enlarged lymph nodes. Vasculature: Unremarkable. No aortic aneurysm. Kidneys: The lummi kidneys are very small and atrophic. Bones/joints: Unremarkable. No acute fracture. Soft tissues: Unremarkable. CT/CT chest w con* [id number] IMPRESSION: Diffuse multilobar pulmonary consolidation and ground-glass opacities which have significantly increased, particularly in the lower lobes and bases. Findings consistent with pneumonia/ARDS.
[2025-09-04] MEDS: piperacillin-tazobactam 3.375 GM in sodium chloride 0.9% (plus) 50 ML IV (13:24)
[2025-09-04] MEDS: iohexol 350 mg/mL 500 mL Btl (per mL) IV (14:27)
--- NOTE | 2025-09-04 18:21 | PC.NURSE ---
Shift Summary: After receiving dialysis, patient has significantly improved. Only slight crackles in the lungs heard now compared to coarse crackles this morning. Titrated from 70% FIO2 Bipap down to 3L NC. Titrated off of precedex. Oriented to person, place, time and situation. Dialysis received today. 2500mL removed. Had a CT with contrast, Dr Rankin aware, will order dialysis for tomorrow.
--- NOTE | 2025-09-04 20:03 | PC.NURSE ---
Addendum entered by ABIMAEL Roldan 09/04/25 22:08: Patients IV repositioned and nicardipene restarted. Patient stated there was no pain with flushing. Original Note: Patient refused PICC line placement today and as of shift change both IVs occluded and attempting to get line so Nicardipine currently paused in an attempt to get access. Giving 2100 PO meds to help control blood pressure.
[2025-09-05] VITALS (78 sets, daily range): BP systolic 134–216; BP diastolic 78–148; PULSE 71–117; RESP 13–31; TEMP 36.8–37.3; O2SAT 91–100
[2025-09-05] MEDS: nicardipine 20 MG/200 ML PREMIX 25 MG IV ×2 (01:40→11:10)
[2025-09-05] MEDS: piperacillin-tazobactam 3.375 GM in sodium chloride 0.9% (plus) 50 ML IV ×2 (01:40→12:56)
[2025-09-05 03:59] LABS: Alanine Aminotransferase < 5 U/L (0-41); Albumin Level 3.7 g/dL (3.5-5.2); Alkaline Phosphatase 67 U/L (40-130); Anion Gap 22.3 (5-19); Aspartate Amino Transferase 10 U/L (0-40); Blood Urea Nitrogen 35 mg/dL (6-20); Calcium 9.1 mg/dL (8.5-10.5); Carbon Dioxide 23 mmol/L (22-29); Chloride 100 mmol/L (98-107); Globulin 2.0 g/dL (1.3-4.6); Glucose 124 mg/dL (65-115); Osmolality Calculated 299 mOsm/kg (285-295); Potassium 5.3 mmol/L (3.5-5.1); Sodium 140 mmol/L (136-145); Total Protein 5.7 g/dL (6.6-8.7)
[2025-09-05 04:00] LABS: Magnesium 2.3 mg/dL (1.7-2.3)
--- NOTE | 2025-09-05 05:04 | PC.NURSE ---
Patient made no urine this shift so unable to collect void sample and unable to collect sputum as cough is currently unproductive.
[2025-09-05] MEDS: pantoprazole 40 mg SDV IVP (05:10)
[2025-09-05] MEDS: morphine 4 mg/mL SDV 1 mL 1 MG IVP ×5 (05:20→22:31)
--- NOTE | 2025-09-05 07:48 | PICC.NOTE ---
Charge nurse confirms pt is refusing PICC line at this time. Order cancelled.
--- NOTE | 2025-09-05 08:00 | P.PN_ITS ---
Subjective 2 Subjective: Patient seen and examined. He feels better no nausea no vomiting no shortness of breath. He is awake alert and appropriate. Patient wants to go home. Patient remains on a Cardene drip. Medications: Reviewed: Yes Medication Review Details: Current Medications Acetaminophen (Acetaminophen 325 Mg Tablet) 650 mg NG-TUBE Q6H PRN PRN Reason: FEVER Last Admin: 09/04/25 00:16 Dose: 650 mg Albuterol/Ipratropium (Ipratropium-Albuterol 3 Ml Neb) 3 ml INHALATION Q4H.RESPIRATORY OMAR Last Admin: 09/05/25 04:01 Dose: Not Given Amlodipine Besylate (Amlodipine 5 Mg Tablet) 5 mg PO DAILY OMAR Last Admin: 09/05/25 05:12 Dose: 5 mg Clonidine HCl (Clonidine 0.1 Mg Tablet) 0.2 mg PO TID OMAR Last Admin: 09/05/25 05:10 Dose: 0.2 mg Lidocaine HCl 15 ml/Diphenhydramine HCl 37.5 mg/Nystatin 500,000 unit/ Al Hydrox/Mg Hydrox/Simethicone 10 ml 0 ml MUCOUS MEM Q4H PRN PRN Reason: MOUTH PAIN Last Admin: 09/04/25 13:22 Dose: 15 ml Enoxaparin Sodium (Enoxaparin 30 Mg/0.3 Ml Syringe) 30 mg SUBCUT Q24H OMAR Last Admin: 09/04/25 10:07 Dose: 30 mg Hydralazine HCl (Hydralazine 50 Mg Tablet) 100 mg PO TID OMAR Last Admin: 09/05/25 05:12 Dose: 100 mg Dextrose (D10w) 250 mls @ 1,000 mls/hr IV PRN PRN PRN Reason: HYPOGLYCEMIA Last Infusion: 09/03/25 11:40 Dose: Infused Dexmedetomidine/Sodium Chloride (Precedex) 400 mcg in 100 mls @ 0 mls/hr IV .Q0M OMAR; Protocol Last Titration: 09/04/25 18:05 Dose: 0 mcg/kg/hr, 0 mls/hr Nicardipine/Sodium Chloride (Cardene) 20 mg in 200 mls @ 0 mls/hr IV .Q0M OMAR; Protocol Last Admin: 09/05/25 01:40 Dose: 2.5 mg/hr, 25 mls/hr Dextrose (D10w) 125 mls @ 750 mls/hr IV PRN PRN PRN Reason: HYPOGLYCEMIA Last Infusion: 09/04/25 12:25 Dose: Infused Dextrose (D10w) 125 mls @ 750 mls/hr IV PRN PRN PRN Reason: HYPOGLYCEMIA Piperacillin Sod/Tazobactam (Sod 3.375 gm/ Sodium Chloride) 50 mls @ 12.5 mls/hr IV Q12H [facility] Last Infusion: 09/05/25 05:33 Dose: Infused Labetalol HCl (Labetalol 200 Mg Tablet) 200 mg PO BID [facility] Last Admin: 09/05/25 05:12 Dose: 200 mg Lorazepam (Lorazepam 2 Mg/Ml Inj 1 Ml) 2 mg IVP Q4H PRN PRN Reason: ANXIETY Last Admin: 09/03/25 23:54 Dose: 2 mg Morphine Sulfate (Morphine 4 Mg/Ml Sdv 1 Ml) 1 mg IVP Q2H PRN PRN Reason: SEVERE PAIN Last Admin: 09/05/25 05:20 Dose: 1 mg Ondansetron HCl (Ondansetron 2 Mg/Ml Sdv 2 Ml) 4 mg IVP Q6H PRN PRN Reason: NAUSEA AND VOMITING Last Admin: 09/03/25 22:28 Dose: 4 mg Pantoprazole Sodium (Pantoprazole 40 Mg Sdv) 40 mg IVP DAILY [facility] Last Admin: 09/05/25 05:10 Dose: 40 mg Sevelamer Carbonate (Sevelamer 800 Mg Tablet) 1,600 mg PO TID [facility] Last Admin: 09/05/25 05:12 Dose: 1,600 mg Vancomycin HCl (Vancomycin 1,000 Mg Sdv (Pharmacy Mix)) 0 mg XX PRN PRN PRN Reason: Pharmacy to Dose Vitals/I&O/Wt Last Vital Signs Temp 99.0 F 09/05/25 06:00 Pulse 88 09/05/25 06:00 Resp 20 H 09/05/25 06:00 BP 150/93 09/05/25 06:00 Pulse Ox 98 09/05/25 06:00 O2 Del Method Nasal Cannula 09/05/25 04:00 O2 Flow Rate 3 09/05/25 04:00 FiO2 60 09/04/25 09:16 09/04/25 09/05/25 09/05/25 22:59 06:59 14:59 Intake Total 577.773 / 1506.797 747.5 / 2254.297 Balance 577.773 / -1494.203 747.5 / -746.703 Weight last 48 hrs Weight 41.9 kg Weight 41.7 kg Weight 47.2 kg Physical Exam 2 Narrative: Blood pressure noted on cardene drip He is awake and alert oriented and following commands. Comfortable no apparent respiratory distress. HEENT normocephalic atraumatic Neck is supple Lungs have decreased crackles bilaterally. Heart regular. Abdomen is soft positive bowel sounds. Extremities do not have edema. Dialysis access right upper extremity AV fistula with thrill and bruit. neuro-awake alert oriented x 3. Moves all extremities Patient was examined by nurse telehealth visit. A/V equipment was used as this was a telehealth visit. Data 09/04/25 04:57 09/05/25 03:15 Micro: Microbiology 09/04/25 04:58 Blood Culture - Preliminary Blood NEGATIVE TO DATE 09/04/25 04:57 Blood Culture - Preliminary Blood NEGATIVE TO DATE 09/03/25 06:42 Blood Culture - Preliminary Blood NEGATIVE TO DATE 09/03/25 06:40 Blood Culture - Preliminary Blood NEGATIVE TO DATE A&P Assessment and plan 1. 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 Patient unfortunately has poor compliance with dialysis and has used drugs in the past. Patient has also had septicemia recently been intubated in the past. Patient is here with confusion altered mental status hypertensive urgency. 1. ESRD and hyperkalemia-improved status post dialysis x 2. Patient is in a low potassium diet. Will repeat dialysis today or tomorrow. 2. Pneumonia renal dose antibiotics. 3. HTN-improving. wean off cardene drip. Patient is prescribed at home clonidine hydralazine losartan and labetalol. Unfortunately I do not think the patient is able to take all of these medications at home. Would attempt to make once to twice daily medications and I would try to avoid clonidine in this patient as he likely has significant rebound hypertension. For now we will increase amlodipine to 10 mg daily, will change labetalol to metoprolol XL. Please avoid MINGO inhibitors and ARB's as patient has had multiple admissions for hyperkalemia and misses dialysis. 4. anemia-patient's iron saturation is only 10% however ferritin is 1581. Will start Epogen as long as blood pressure is controlled. Avoid IV iron 5. Increase Renvela dose. Patient was seen and examined using audiovisual equipment with the aid of a nurse. The patient consented to telehealth and to dialysis. Plan: As above. PDMP PDMP Reviewed: Not Reviewed Attestations 2 Medical Necessity Statement*: Pneumonia, hyperkalemia, hypertension Time Spent in Patient Care: 16 - 35 minutes (>than 50% of time sp ent in counselling and/or direct pt care on unit) . Coding Level of Care Code Acute Code for Chg Fwd Diagnoses ESRD on hemodialysis N18.6; Z99.2
--- NOTE | 2025-09-05 09:14 | P.PN_ITS ---
Subjective 2 Subjective: Patient seen again this morning in the ICU. He is more awake today, and reports feeling much better today. He is currently off oxygen. He acknowledges receiving paperwork for advanced directives, and reports that he is going to take his time and pray over it before he finally makes final decisions on that. His vital signs have remained stable, current blood pressure, which has remained about 160/90 and recent hours. He is still on Cardene drip, which is currently turned off after it infiltrated. Patient acknowledges that this is the best his blood pressure has been in the last 2 weeks, reporting that his blood pressure typically stays in the 200s/100s. He acknowledges that he gets dialysis every Thursday, and Thursday, and looking forward to possible discharge today. Vitals/I&O/Wt Last Vital Signs Temp 99.0 F 09/05/25 06:00 Pulse 86 09/05/25 08:05 Resp 16 09/05/25 08:05 BP 140/80 09/05/25 08:00 Pulse Ox 94 09/05/25 08:05 O2 Del Method Room Air 09/05/25 08:05 O2 Flow Rate 3 09/05/25 04:00 FiO2 60 09/04/25 09:16 09/04/25 09/05/25 09/05/25 22:59 06:59 14:59 Intake Total 577.773 / 1506.797 747.5 / 2254.297 415 / 415 Balance 577.773 / -1494.203 747.5 / -746.703 415 / 415 Weight last 48 hrs Weight 41.9 kg Weight 41.7 kg Weight 47.2 kg Physical Exam 2 Narrative: General: Awake and alert. Cooperative. Chest/Resp: Normal respiratory chest movts; no obvious respiratory distress. CVS: Rhythm: Regular heart rate and rhythm. GI: Non-distended; No obvious organomegaly. Extremities: No obvious pitting pedal edema. Skin: No obvious new rashes or new skin lesions. Data 09/04/25 04:57 09/05/25 03:15 Micro: Microbiology 09/04/25 04:58 Blood Culture - Preliminary Blood NEGATIVE TO DATE 09/04/25 04:57 Blood Culture - Preliminary Blood NEGATIVE TO DATE 09/03/25 06:42 Blood Culture - Preliminary Blood NEGATIVE TO DATE 09/03/25 06:40 Blood Culture - Preliminary Blood NEGATIVE TO DATE CXR: My impression: Imaging personally viewed by me, and shows persistent but apparent remarkable decrease in the bilateral dense/fluffy opacities. Radiologist's impression: Compared to the previous examination of 09/04/2025 there has been partial resolution of the diffuse reticular interstitial and groundglass opacities in the mid and lower lung lackey. Moderate residual opacity remains. No other interval change or new finding compared to the previous study. A&P Assessment and plan 1. Acute respiratory failure with hypoxia: 2. Pneumonia of both lungs due to infectious organism, unspecified part of lun. Hypertensive emergency: 4. Severe hypertension: 5. Acute metabolic encephalopathy: 6. Acute hyperkalemia: 7. Acute metabolic acidosis: 8. Acute pulmonary edema: 9. Acute respiratory distress: 10. Generalized seizure: 11. Medical non-compliance: Plan: Currently stable patient. I spoke with the infectious disease doctor, Dr. Lange, who recommends starting patient on some weekly Dalvance upon discharge. Will continue ongoing IV antibiotics, otherwise. Continue ongoing antihypertensives, as he is getting, and make further changes as needed. We can go ahead and discontinue the Cardene drip entirely. Patient can be moved to the step-down unit, we will monitor closely, and possibly discharge him tomorrow if he remains stable. Further plans to be adjusted as clinical picture evolves. In the meantime, I can see his history of generalized seizures, for which patient takes on anti-seizure medications. So, I will resume his antiseizure medications at this time. Continue to monitor closely, and make further changes as clinical picture evolves. PDMP PDMP Reviewed: Not Reviewed Attestations 2 Medical Necessity Statement*: As outlined in the Assessment & Plan section above, patient will need up to 1-2 midnight stay, estimated, at least, to adequately and appropriately treat and optimally control above-named clinical conditions,. Coding Level of Care Code 48502 Diagnoses Acute respiratory failure with hypoxia J96.01 Pneumonia of both lungs due to infectious organism, unspecified part of lung J18.9 Pneumonia type: due to unspecified organism Lung location: unspecified part of lung Hypertensive emergency I16.1 Severe hypertension I10 Acute metabolic encephalopathy G93.41 Acute hyperkalemia E87.5 Acute metabolic acidosis E87.21 Acute pulmonary edema J81.0 Acute respiratory distress R06.03 Generalized seizure R56.9 Medical non-compliance Z91.199
--- NOTE | 2025-09-05 09:57 | P.PN_ITS ---
Subjective 2 Subjective: Infectious disease progress note Clinically much better today. He has been weaned down to room air. Able to speak in full sentences. Blood cultures so far negative from 09/03/2025. Medications: Reviewed: Yes Medication Review Details: Current Medications Acetaminophen (Acetaminophen 325 Mg Tablet) 650 mg NG-TUBE Q6H PRN PRN Reason: FEVER Last Admin: 09/04/25 00:16 Dose: 650 mg Albuterol/Ipratropium (Ipratropium-Albuterol 3 Ml Neb) 3 ml INHALATION Q4H.RESPIRATORY OMAR Last Admin: 09/05/25 04:01 Dose: Not Given Amlodipine Besylate (Amlodipine 5 Mg Tablet) 5 mg PO DAILY OMAR Last Admin: 09/05/25 05:12 Dose: 5 mg Clonidine HCl (Clonidine 0.1 Mg Tablet) 0.2 mg PO TID OMAR Last Admin: 09/05/25 05:10 Dose: 0.2 mg Lidocaine HCl 15 ml/Diphenhydramine HCl 37.5 mg/Nystatin 500,000 unit/ Al Hydrox/Mg Hydrox/Simethicone 10 ml 0 ml MUCOUS MEM Q4H PRN PRN Reason: MOUTH PAIN Last Admin: 09/04/25 13:22 Dose: 15 ml Enoxaparin Sodium (Enoxaparin 30 Mg/0.3 Ml Syringe) 30 mg SUBCUT Q24H OMAR Last Admin: 09/04/25 10:07 Dose: 30 mg Hydralazine HCl (Hydralazine 50 Mg Tablet) 100 mg PO TID OMAR Last Admin: 09/05/25 05:12 Dose: 100 mg Dextrose (D10w) 250 mls @ 1,000 mls/hr IV PRN PRN PRN Reason: HYPOGLYCEMIA Last Infusion: 09/03/25 11:40 Dose: Infused Dexmedetomidine/Sodium Chloride (Precedex) 400 mcg in 100 mls @ 0 mls/hr IV .Q0M OMAR; Protocol Last Titration: 09/04/25 18:05 Dose: 0 mcg/kg/hr, 0 mls/hr Nicardipine/Sodium Chloride (Cardene) 20 mg in 200 mls @ 0 mls/hr IV .Q0M OMAR; Protocol Last Admin: 09/05/25 01:40 Dose: 2.5 mg/hr, 25 mls/hr Dextrose (D10w) 125 mls @ 750 mls/hr IV PRN PRN PRN Reason: HYPOGLYCEMIA Last Infusion: 09/04/25 12:25 Dose: Infused Dextrose (D10w) 125 mls @ 750 mls/hr IV PRN PRN PRN Reason: HYPOGLYCEMIA Piperacillin Sod/Tazobactam (Sod 3.375 gm/ Sodium Chloride) 50 mls @ 12.5 mls/hr IV Q12H [facility] Last Infusion: 09/05/25 05:33 Dose: Infused Labetalol HCl (Labetalol 200 Mg Tablet) 200 mg PO BID [facility] Last Admin: 09/05/25 05:12 Dose: 200 mg Lorazepam (Lorazepam 2 Mg/Ml Inj 1 Ml) 2 mg IVP Q4H PRN PRN Reason: ANXIETY Last Admin: 09/03/25 23:54 Dose: 2 mg Morphine Sulfate (Morphine 4 Mg/Ml Sdv 1 Ml) 1 mg IVP Q2H PRN PRN Reason: SEVERE PAIN Last Admin: 09/05/25 05:20 Dose: 1 mg Ondansetron HCl (Ondansetron 2 Mg/Ml Sdv 2 Ml) 4 mg IVP Q6H PRN PRN Reason: NAUSEA AND VOMITING Last Admin: 09/03/25 22:28 Dose: 4 mg Pantoprazole Sodium (Pantoprazole 40 Mg Sdv) 40 mg IVP DAILY [facility] Last Admin: 09/05/25 05:10 Dose: 40 mg Sevelamer Carbonate (Sevelamer 800 Mg Tablet) 1,600 mg PO TID [facility] Last Admin: 09/05/25 05:12 Dose: 1,600 mg Vancomycin HCl (Vancomycin 1,000 Mg Sdv (Pharmacy Mix)) 0 mg XX PRN PRN PRN Reason: Pharmacy to Dose Vitals/I&O/Wt Last Vital Signs Temp 99.0 F 09/05/25 06:00 Pulse 86 09/05/25 08:05 Resp 20 H 09/05/25 09:52 BP 140/80 09/05/25 08:00 Pulse Ox 95 09/05/25 09:52 O2 Del Method Room Air 09/05/25 08:05 O2 Flow Rate 3 09/05/25 04:00 FiO2 60 09/04/25 09:16 09/04/25 09/05/25 09/05/25 22:59 06:59 14:59 Intake Total 577.773 / 1506.797 747.5 / 2254.297 415 / 415 Balance 577.773 / -1494.203 747.5 / -746.703 415 / 415 Weight last 48 hrs Weight 41.9 kg Weight 41.7 kg Weight 47.2 kg Physical Exam 2 Narrative: General: Awake alert oriented x 3 HEENT: PERRLA, pupils bilaterally equal and reactive, pallors not present Chest: coarse breath sounds Abdomen: Soft, nontender, non distended Neuro: No focal deficits, lethargic, ill appearing Data 09/04/25 04:57 09/05/25 03:15 Micro: Microbiology 09/04/25 04:58 Blood Culture - Preliminary Blood NEGATIVE TO DATE 09/04/25 04:57 Blood Culture - Preliminary Blood NEGATIVE TO DATE 09/03/25 06:42 Blood Culture - Preliminary Blood NEGATIVE TO DATE 09/03/25 06:40 Blood Culture - Preliminary Blood NEGATIVE TO DATE A&P Assessment and plan 1. Sepsis: 2. Acute pulmonary edema: 3. Multifocal pneumonia: 4. Chronic steroid use: Plan: 25 year old male with h/o failed kidney transplant, on chronic steroid prednisone 5 mg (?compliance) ,non compliant with dialysis, recent admission for MSSA bacteremia, pneumonia with moraxella catarrhalis and sepsis readmitted on 09/03 with acute respiratory distress. Discharged with iv cefazolin with HD on last discharge on 08/23, however has likely not received any abx due to missed dialysis. Currently CXR shows B/l infiltrates likely related to combination of pneumonia and pulmonary edema. He had a witnessed episode of vomiting yesterday therefore aspiration likely contributing as well. Plan: Change cefepime to zosyn renally dosed for additional anerobic coverage for aspiration continue iv vancomycin Blood cx pending Check MRSA nasal screen , sputum cx and gram stain , urine legionella ag check CT chest w/contrast to assess for PE, possible septic emboli , possible empyema negative flu, covid and RSV PCR given chronic steroid use and B/L infiltrates, check sputum PJP PCR, serum fungitell and LDH will follow September 05, 2025 Clinically much improved today. He has been weaned down to room air. Able to talk in full sentences. Tmax 99 Fahrenheit. Unable to expectorate any sputum for dedicated PJP and sputum culture testing. LDH mildly elevated 235. Serum Fungitell currently pending. Given clinical improvement without dedicated PJP treatment and only mildly elevated LDH considered lower possibility at that this time. Would not add an empiric course. Okay to resume chronic prednisone 5 mg p.o. daily from an ID standpoint. Previous admission With MSSA bacteremia for which patient had been planned for a 6-week IV cefazolin course with dialysis, however given his noncompliance with dialysis he has not been able to comply with antibiotics either. Since compliance is likely to be an issue moving forward, we will instead switch to dalbavancin with first dose to be administered on day of discharge followed by subsequent dose 1 week later. For aspiration pneumonia, will transition to oral antibiotics when nearing discharge. For now continue empiric piperacillin/tazobactam and vancomycin. MRSA nasal screen is currently pending at this time. PDMP PDMP Reviewed: Not Reviewed Attestations 2 Medical Necessity Statement*: per admitting note Coding Level of Care Code Acute Code for [facility] Diagnoses Sepsis A41.9 Acute pulmonary edema J81.0 Multifocal pneumonia J18.8 Chronic steroid use
[2025-09-05 10:32] LABS: MRSA PCR OZH (swab) NOT DETECTED (Negative)
--- NOTE | 2025-09-05 10:36 | XR_ITS ---
WS: [id number] XR chest 1V portable [id number] REASON FOR EXAM: baseline of lungs FINDINGS: The nasogastric tube is been removed. Compared to the previous examination of 09/04/2025 there has been partial resolution of the diffuse reticular interstitial and groundglass opacities in the mid and lower lung lackey. Moderate residual opacity remains. No other interval change or new finding compared to the previous study. XR/XR chest 1V portable [id number] IMPRESSION: Improving abnormal chest.
[2025-09-05] MEDS: heparin, porcine 1,000 unit/mL INJ 10 mL 1000 UNIT IV (15:45)
[2025-09-05] MEDS: diphenhydrAMINE 50 mg/mL SDV 1mL IVP (16:10)
[2025-09-05] MEDS: NIFEdipine ER (24 hr) 30 mg Tablet 90 MG PO (18:17)
[2025-09-05] MEDS: divalproex DR 500 mg Tablet PO (18:18)
[2025-09-05] MEDS: vancomycin 500 MG in sodium chloride 0.9% (plus) 100 ML 200 MG IV (20:25)
[2025-09-06] VITALS (59 sets, daily range): BP systolic 117–157; BP diastolic 68–102; PULSE 80–98; RESP 12–31; TEMP 37.1–37.2; O2SAT 92–100
[2025-09-06] MEDS: piperacillin-tazobactam 3.375 GM in sodium chloride 0.9% (plus) 50 ML IV (00:37)
--- NOTE | 2025-09-06 00:56 | PC.NURSE ---
notified of patients continued pruritis even after dialysis administration of diphenhydramine. Orders given for 50mg IVP diphenydramine q6h for pruritis. Order placed. See MAR
[2025-09-06] MEDS: diphenhydrAMINE 50 mg/mL SDV 1mL IVP ×2 (01:09→10:04)
[2025-09-06 05:15] LABS: Alanine Aminotransferase < 5 U/L (0-41); Albumin Level 3.6 g/dL (3.5-5.2); Alkaline Phosphatase 58 U/L (40-130); Anion Gap 18.5 (5-19); Aspartate Amino Transferase 8 U/L (0-40); Blood Urea Nitrogen 20 mg/dL (6-20); Calcium 8.8 mg/dL (8.5-10.5); Carbon Dioxide 28 mmol/L (22-29); Chloride 102 mmol/L (98-107); Globulin 2.0 g/dL (1.3-4.6); Glucose 94 mg/dL (65-115); Magnesium 2.2 mg/dL (1.7-2.3); Osmolality Calculated 300 mOsm/kg (285-295); Potassium 4.5 mmol/L (3.5-5.1); Sodium 144 mmol/L (136-145); Total Protein 5.6 g/dL (6.6-8.7)
[2025-09-06] MEDS: pantoprazole 40 mg SDV IVP (05:22)
[2025-09-06] MEDS: divalproex DR 500 mg Tablet PO (05:23)
[2025-09-06] MEDS: NIFEdipine ER (24 hr) 30 mg Tablet 90 MG PO (05:24)
[2025-09-06] MEDS: morphine 4 mg/mL SDV 1 mL 1 MG IVP ×3 (05:36→12:16)
[2025-09-06] MEDS: LORazepam 2 mg/mL INJ 1 mL IVP (07:30)
--- NOTE | 2025-09-06 09:26 | PM.PN ---
Subjective Subjective: The patient is feeling better. No nausea vomiting shortness of breath or chest pain or headaches. He has diarrhea. Medications: Reviewed: Yes Medication Review Details: Current Medications Acetaminophen (Acetaminophen 325 Mg Tablet) 650 mg NG-TUBE Q6H PRN PRN Reason: FEVER Last Admin: 09/04/25 00:16 Dose: 650 mg Albuterol/Ipratropium (Ipratropium-Albuterol 3 Ml Neb) 3 ml INHALATION Q4H.RESPIRATORY OMAR Last Admin: 09/06/25 08:33 Dose: 3 ml Clonazepam (Clonazepam 1 Mg Tablet) 1 mg PO BID PRN PRN Reason: ANXIETY Last Admin: 09/06/25 05:23 Dose: 1 mg Lidocaine HCl 15 ml/Diphenhydramine HCl 37.5 mg/Nystatin 500,000 unit/ Al Hydrox/Mg Hydrox/Simethicone 10 ml 0 ml MUCOUS MEM Q4H PRN PRN Reason: MOUTH PAIN Last Admin: 09/04/25 13:22 Dose: 15 ml Diphenhydramine HCl (Diphenhydramine 50 Mg/Ml Sdv 1ml) 50 mg IVP DAILY PRN PRN Reason: Itching, only with dialysis Last Admin: 09/05/25 16:10 Dose: 50 mg Diphenhydramine HCl (Diphenhydramine 50 Mg/Ml Sdv 1ml) 50 mg IVP Q6H PRN PRN Reason: pruritis Last Admin: 09/06/25 01:09 Dose: 50 mg Divalproex Sodium (Divalproex Dr 500 Mg Tablet) 500 mg PO BID OMAR Last Admin: 09/06/25 05:23 Dose: 500 mg Enoxaparin Sodium (Enoxaparin 30 Mg/0.3 Ml Syringe) 30 mg SUBCUT Q24H OMAR Last Admin: 09/06/25 08:46 Dose: Not Given Hydralazine HCl (Hydralazine 50 Mg Tablet) 100 mg PO TID [facility] Last Admin: 09/06/25 05:24 Dose: 100 mg Dextrose (D10w) 250 mls @ 1,000 mls/hr IV PRN PRN PRN Reason: HYPOGLYCEMIA Last Infusion: 09/03/25 11:40 Dose: Infused Nicardipine/Sodium Chloride (Cardene) 20 mg in 200 mls @ 0 mls/hr IV .Q0M OMAR; Protocol Last Titration: 09/05/25 18:33 Dose: 0 mg/hr, 0 mls/hr Dextrose (D10w) 125 mls @ 750 mls/hr IV PRN PRN PRN Reason: HYPOGLYCEMIA Last Infusion: 09/04/25 12:25 Dose: Infused Dextrose (D10w) 125 mls @ 750 mls/hr IV PRN PRN PRN Reason: HYPOGLYCEMIA Piperacillin Sod/Tazobactam (Sod 3.375 gm/ Sodium Chloride) 50 mls @ 12.5 mls/hr IV Q12H OMAR Last Infusion: 09/06/25 04:40 Dose: Infused Labetalol HCl (Labetalol 200 Mg Tablet) 400 mg PO BID [facility] Last Admin: 09/06/25 05:24 Dose: 400 mg Lorazepam (Lorazepam 2 Mg/Ml Inj 1 Ml) 2 mg IVP Q4H PRN PRN Reason: ANXIETY Last Admin: 09/06/25 07:30 Dose: 2 mg Losartan Potassium (Losartan 50 Mg Tablet) 100 mg PO DAILY [facility] Last Admin: 09/06/25 05:24 Dose: 100 mg Morphine Sulfate (Morphine 4 Mg/Ml Sdv 1 Ml) 1 mg IVP Q2H PRN PRN Reason: SEVERE PAIN Last Admin: 09/06/25 07:36 Dose: 1 mg Nifedipine (Nifedipine Er (24 Hr) 30 Mg Tablet) 90 mg PO DAILY [facility] Last Admin: 09/06/25 05:24 Dose: 90 mg Non-Formulary Medication (Sodium Zirconium Cyclosilicate [Lokelma]) 5 gm PO DAILY [facility] Ondansetron HCl (Ondansetron 2 Mg/Ml Sdv 2 Ml) 4 mg IVP Q6H PRN PRN Reason: NAUSEA AND VOMITING Last Admin: 09/03/25 22:28 Dose: 4 mg Pantoprazole Sodium (Pantoprazole 40 Mg Sdv) 40 mg IVP DAILY [facility] Last Admin: 09/06/25 05:22 Dose: 40 mg Sevelamer Carbonate (Sevelamer 800 Mg Tablet) 1,600 mg PO TID [facility] Last Admin: 09/06/25 07:49 Dose: 1,600 mg Vancomycin HCl (Vancomycin 1,000 Mg Sdv (Pharmacy Mix)) 0 mg XX PRN PRN PRN Reason: Pharmacy to Dose Vitals/I&O/Wt Last Vital Signs Temp 98.8 F 09/06/25 07:45 Pulse 88 09/06/25 08:47 Resp 18 09/06/25 08:33 BP 131/75 09/06/25 08:45 Pulse Ox 95 09/06/25 08:45 O2 Del Method Room Air 09/06/25 08:45 O2 Flow Rate 3 09/05/25 04:00 FiO2 60 09/04/25 09:16 09/05/25 09/06/25 09/06/25 22:59 06:59 14:59 Intake Total 715.417 / 1200.417 50 / 1250.417 360 / 360 Output Total 5494 / 5494 Balance -4778.583 / -4293.583 50 / -4243.583 360 / 360 Weight last 48 hrs Weight 41.5 kg Weight 41.4 kg Weight 41.9 kg Weight 41.7 kg Physical Exam Narrative: Blood pressure improved He is awake and alert oriented and following commands. Comfortable no apparent respiratory distress. HEENT normocephalic atraumatic Neck is supple Lungs have decreased crackles bilaterally. Heart regular. Abdomen is soft positive bowel sounds. Extremities do not have edema. Dialysis access right upper extremity AV fistula with thrill and bruit. neuro-awake alert oriented x 3. Moves all extremities Patient was examined by nurse telehealth visit. A/V equipment was used as this was a telehealth visit. Data 09/04/25 04:57 09/06/25 04:20 Micro: Microbiology 09/06/25 00:23 Legionella Urinary Antigen - Final Urine,Voided 09/04/25 04:58 Blood Culture - Preliminary Blood NEGATIVE TO DATE 09/04/25 04:57 Blood Culture - Preliminary Blood NEGATIVE TO DATE A&P Assessment and plan 1. 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 Patient unfortunately has poor compliance with dialysis and has used drugs in the past. Patient has also had septicemia recently been intubated in the past. Patient is here with confusion altered mental status hypertensive urgency. 1. ESRD and hyperkalemia-improved status post dialysis x3. Patient is in a low potassium diet. Will repeat dialysis tomorrow 2. Pneumonia renal dose antibiotics. 3. HTN-improved, off cardene drip Please avoid MINGO inhibitors and ARB's as patient has had multiple admissions for hyperkalemia and misses dialysis. can increase nifedipine if needed. consider catapress patch 4. anemia-patient's iron saturation is only 10% however ferritin is 1581. Will start Epogen as long as blood pressure is controlled. Avoid IV iron 5. continue Renvela dose. Patient was seen and examined using audiovisual equipment with the aid of a nurse. The patient consented to telehealth and to dialysis. Plan: As above. PDMP PDMP Reviewed: Not Reviewed Attestations Medical Necessity Statement*: per hospitalist Time Spent in Patient Care: 16 - 35 minutes (>than 50% of time spent in counselling and/or direct pt care on unit). Coding Level of Care Code Acute Code for [facility] Diagnoses ESRD on hemodialysis N18.6; Z99.2
--- NOTE | 2025-09-06 09:58 | PM.DCS ---
Discharge Providers Date of Admission: 09/03/25 07:35 Date of Discharge: September 06, 2025 Attending Provider at Admission: Jack Carreon MD Attending Provider at Discharge: Jack Carreon MD Primary Care Provider: Beverly Veronica MD Diagnoses at Discharge Discharge Diagnosis 1. Pneumonia of both lungs due to infectious organism, unspecified part of lun. Acute hyperkalemia: 3. Acute metabolic acidosis: 4. Malignant hypertension: 5. Severe hypertension: 6. Acute metabolic encephalopathy: 7. Acute pulmonary edema: 8. Acute respiratory distress: 9. Acute respiratory failure with hypoxia: 10. Noncompliance with medication regimen: 11. Generalized seizure: 12. ESRD on hemodialysis: 13. Chronic steroid use: Reason for Visit Reason for Visit: Difficulty breathing Brief History: Patient is a 25-year-old noncompliant patient with end-stage renal disease on dialysis, who presented to the ER with difficulty breathing. He was found to have significant pulmonary edema, severe hypertension, leading to hypertensive emergency, and an acute metabolic acidosis, acute hyperkalemia, with severely elevated BUN and creatinine. He was admitted to the ICU, where a decision was made to intubate him. Given reported request to be made DNR, patient was very treated with BiPAP. IV Lasix was given, while urgent dialysis was started. IV nicardipine drip was started, given severe elevated BP, with blood pressures in the 240s/140s mmHg. Other associated symptoms were treated empirically for Hospital Course Hospital Course Nephrology was consulted. Also, infectious disease was consulted, given finding of bilateral infiltrates suggesting pneumonia. Otherwise, for the bilateral pneumonia, he was started on IV cefepime and vancomycin, while rest of antihypertensive medications were resumed. His dose of oral labetalol was further escalated, while the Cardene drip was gradually withdrawn. Patient made gradual but steady improvement. By day #2, he was maintained on oxygen by nasal cannula, and finally weaned off oxygen about 24 hours ago. He was further evaluated on monitor, while he got daily dialysis, as directed by nephrology. His seizure medications were also resumed. As of today, patient symptoms have remarkably resolved, therefore making him to request to be discharged. He is therefore discharged as requested. Of note, as of discharge time, given noncompliance, and questionable failure of prior recommended IV and oral antibiotics, Dr. Lange (ID) recommended giving patient a one-time dose of IV Dalvance today, which is repeated every week, as to be directed. See my discharge orders and discharge instructions for more details. Physical Exam Narrative: General: Awake and alert patient. Resp: No obvious respiratory distress or difficulty breathing. Skin: No obvious rashes or new skin lesions. All other physical findings essentially within normal limits. Discharge Data Studies Completed and Pending Completed Studies During Hospitalization Category Date Time Status CT chest w con* [id number] Routine Cat Scan 09/04/25 12:33 Completed CXRP [XR chest 1V portable [id number]] Stat Exams 09/03/25 23:46 Completed XR chest 1V portable [id number] Routine Exams 09/03/25 12:42 Completed XR chest 1V portable [id number] Routine Exams 09/03/25 21:14 Completed XR chest 1V portable [id number] Routine Exams 09/05/25 10:36 Completed XR chest 1V portable [id number] Stat Exams 09/03/25 06:01 Completed Pending at discharge Category Date Time Status Blood Culture Stat Lab 09/03/25 06:42 Results Blood Culture Stat Lab 09/04/25 04:58 Results Complete Blood Count w/Auto AM LABS Lab 09/07/25 04:00 Ordered Complete Blood Count w/Auto AM LABS Lab 09/08/25 04:00 Ordered Complete Blood Count w/Auto AM LABS Lab 09/09/25 04:00 Ordered Comprehensive Metabolic Panel AM LABS Lab 09/07/25 04:00 Ordered Comprehensive Metabolic Panel AM LABS Lab 09/08/25 04:00 Ordered Comprehensive Metabolic Panel AM LABS Lab 09/09/25 04:00 Ordered Fungitell Glucan Assay (Blood) AM LABS Lab 09/05/25 03:15 Received Magnesium AM LABS Lab 09/07/25 04:00 Ordered Magnesium AM LABS Lab 09/08/25 04:00 Ordered Magnesium AM LABS Lab 09/09/25 04:00 Ordered PJP PCR [Pneumocystis jirovecii, QT PCR] Routine Lab 09/04/25 11:02 Uncollected Phosphorus AM LABS Lab 09/07/25 04:00 Ordered Phosphorus AM LABS Lab 09/08/25 04:00 Ordered Phosphorus AM LABS Lab 09/09/25 04:00 Ordered Sputum Culture and Gram Stain Stat Lab 09/04/25 11:35 Uncollected Urine Drug Monitoring Panel 1 Routine Lab 09/03/25 10:00 Received Radiology Impressions Chest CT 09/04/25 12:33 IMPRESSION: Diffuse multilobar pulmonary consolidation and ground-glass opacities which have significantly increased, particularly in the lower lobes and bases. Findings consistent with pneumonia/ARDS. Chest X-Ray 09/05/25 10:36 IMPRESSION: Improving abnormal chest. Vitals Last Vital Signs Temp 98.8 F 09/06/25 07:45 Pulse 88 09/06/25 08:47 Resp 18 09/06/25 08:33 BP 131/75 09/06/25 08:45 Pulse Ox 95 09/06/25 08:45 O2 Del Method Room Air 09/06/25 08:45 O2 Flow Rate 3 09/05/25 04:00 FiO2 60 09/04/25 09:16 Discharge Plan Discharge Patient Disposition: Home Condition: Stable Prescriptions: New labetalol 200 mg Tablet 400 mg PO BID Qty: 60 3RF morphine 15 mg tablet 15 - 30 mg PO Q6H PRN (Reason: intractable pain) Qty: 90 0RF amoxicillin-pot clavulanate [Augmentin] 500-125 mg tablet 1 tab PO BID 5 Days Qty: 10 0RF levofloxacin 250 mg tablet 250 mg PO DAILY 5 Days Qty: 5 0RF Continued sumatriptan 20 mg/actuation spray,non-aerosol 20 mg INTRANASAL Q12H PRN (Reason: Migraine Headache) hydralazine 100 mg tablet 100 mg PO TID Lokelma 5 gram powder in packet 5 g PO DAILY Qty: 11 2RF prednisone 5 mg tablet 5 mg PO DAILY sevelamer carbonate 800 mg tablet See Rx Instructions .ROUTE .COMPLEX Rx Instructions: TAKE 2 TABLETS BY MOUTH DAILY FOR 4 WEEKS, THEN 1 TABLET DAILY THEREAFTER. clonazepam [Klonopin] 1 mg tablet 1 mg PO BID PRN (Reason: anxiety) Qty: 10 0RF fluoxetine 10 mg capsule 10 mg PO DAILY acetaminophen 325 mg Tablet 650 mg PO Q6H PRN (Reason: Mild/Mod Pain Or Temp >/= 101) Qty: 30 0RF clonidine HCl 0.1 mg Tablet 0.2 mg PO TID Qty: 90 0RF divalproex 500 mg Tablet,Delayed Release (Dr/Ec) 500 mg PO BID Qty: 60 0RF losartan 50 mg Tablet 100 mg PO DAILY 30 Days Qty: 120 0RF nifedipine 90 mg tablet extended release 90 mg PO DAILY 30 Days Qty: 30 0RF Discontinued oxycodone 5 mg tablet 5 mg PO Q8H PRN (Reason: Pain) labetalol 100 mg tablet 300 mg PO BID 30 Days Qty: 180 0RF 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 OK for DC: Infectious Disease and Nephrology Discharge Order = DC NOW: Discharge Order (Routine); Ordered 09/06/25 Ordered By: Jack Carreon Referrals: [facility] [Outside] - 09/08/25 9:30 am Beverly Veronica MD [Primary Care Provider, Family Practice] - 4-7 days Referral Note: Please caLL pRIMARY CARE FOR 4-7 DAY FOLLOW UP ,AT [facility] [phone] NOT LONGER AT CLINIC IN [facility] Discharge Diet: Usual diet Discharge Activity: Resume usual activity and Increase activity as tolerated Patient Instructions: Labetalol (By mouth) (Normodyne, Trandate), Amoxicillin/Clavulanate Potassium (By mouth) (Augmentin, Augmentin..., Morphine, Rapid Release (By mouth), Levofloxacin (By mouth) (Levaquin, Levaquin Leva-ben), Hypertension (DC), End Stage Kidney Disease (DC), Opioid Safety, Pneumonia Stoplight, Patient Portal & Adria Instructions Activity Restrictions/Additional Instructions: Follow up with you PCP within the next 5-7 days/as needed.[facility] Beverly Veronica [phone] Follow up with nephrology as already scheduled/directed. follow up phone number [phone] patient wants [facility] [phone] Discharge Attestations Time Spent in Discharge Care*: greater than 30 min Status at Discharge: Cognitive status at discharge: cognitively intact, Behavioral status at discharge: cooperative and can be uncooperative, Quality Metrics Clinical Quality Measures [ No reported AMI, CVA or VTE this stay] Coding Level of Care Code 62323 Diagnoses Pneumonia of both lungs due to infectious organism, unspecified part of lung J18.9 Pneumonia type: due to unspecified organism Lung location: unspecified part of lung Acute hyperkalemia E87.5 Acute metabolic acidosis E87.21 Malignant hypertension I10 Severe hypertension I10 Acute metabolic encephalopathy G93.41 Acute pulmonary edema J81.0 Acute respiratory distress R06.03 Acute respiratory failure with hypoxia J96.01 Noncompliance with medication regimen Z91.148 Generalized seizure R56.9 ESRD on hemodialysis N18.6; Z99.2 Chronic steroid use
--- NOTE | 2025-09-06 11:20 | P.PN_ITS ---
Subjective 2 Subjective: ID progress note - seen via telehealth Patient i sbeing discharged today. He is on room air, no respiratory distress denies any new complaints Medications: Reviewed: Yes Medication Review Details: Current Medications Acetaminophen (Acetaminophen 325 Mg Tablet) 650 mg NG-TUBE Q6H PRN PRN Reason: FEVER Last Admin: 09/04/25 00:16 Dose: 650 mg Albuterol/Ipratropium (Ipratropium-Albuterol 3 Ml Neb) 3 ml INHALATION Q4H.RESPIRATORY OMAR Last Admin: 09/06/25 08:33 Dose: 3 ml Clonazepam (Clonazepam 1 Mg Tablet) 1 mg PO BID PRN PRN Reason: ANXIETY Last Admin: 09/06/25 05:23 Dose: 1 mg Lidocaine HCl 15 ml/Diphenhydramine HCl 37.5 mg/Nystatin 500,000 unit/ Al Hydrox/Mg Hydrox/Simethicone 10 ml 0 ml MUCOUS MEM Q4H PRN PRN Reason: MOUTH PAIN Last Admin: 09/04/25 13:22 Dose: 15 ml Diphenhydramine HCl (Diphenhydramine 50 Mg/Ml Sdv 1ml) 50 mg IVP DAILY PRN PRN Reason: Itching, only with dialysis Last Admin: 09/05/25 16:10 Dose: 50 mg Diphenhydramine HCl (Diphenhydramine 50 Mg/Ml Sdv 1ml) 50 mg IVP Q6H PRN PRN Reason: pruritis Last Admin: 09/06/25 01:09 Dose: 50 mg Divalproex Sodium (Divalproex Dr 500 Mg Tablet) 500 mg PO BID OMAR Last Admin: 09/06/25 05:23 Dose: 500 mg Enoxaparin Sodium (Enoxaparin 30 Mg/0.3 Ml Syringe) 30 mg SUBCUT Q24H OMAR Last Admin: 09/06/25 08:46 Dose: Not Given Hydralazine HCl (Hydralazine 50 Mg Tablet) 100 mg PO TID OMAR Last Admin: 09/06/25 05:24 Dose: 100 mg Dextrose (D10w) 250 mls @ 1,000 mls/hr IV PRN PRN PRN Reason: HYPOGLYCEMIA Last Infusion: 09/03/25 11:40 Dose: Infused Nicardipine/Sodium Chloride (Cardene) 20 mg in 200 mls @ 0 mls/hr IV .Q0M [facility]; Protocol Last Titration: 09/05/25 18:33 Dose: 0 mg/hr, 0 mls/hr Dextrose (D10w) 125 mls @ 750 mls/hr IV PRN PRN PRN Reason: HYPOGLYCEMIA Last Infusion: 09/04/25 12:25 Dose: Infused Dextrose (D10w) 125 mls @ 750 mls/hr IV PRN PRN PRN Reason: HYPOGLYCEMIA Piperacillin Sod/Tazobactam (Sod 3.375 gm/ Sodium Chloride) 50 mls @ 12.5 mls/hr IV Q12H [facility] Last Infusion: 09/06/25 04:40 Dose: Infused Labetalol HCl (Labetalol 200 Mg Tablet) 400 mg PO BID [facility] Last Admin: 09/06/25 05:24 Dose: 400 mg Lorazepam (Lorazepam 2 Mg/Ml Inj 1 Ml) 2 mg IVP Q4H PRN PRN Reason: ANXIETY Last Admin: 09/06/25 07:30 Dose: 2 mg Losartan Potassium (Losartan 50 Mg Tablet) 100 mg PO DAILY [facility] Last Admin: 09/06/25 05:24 Dose: 100 mg Morphine Sulfate (Morphine 4 Mg/Ml Sdv 1 Ml) 1 mg IVP Q2H PRN PRN Reason: SEVERE PAIN Last Admin: 09/06/25 07:36 Dose: 1 mg Nifedipine (Nifedipine Er (24 Hr) 30 Mg Tablet) 90 mg PO DAILY [facility] Last Admin: 09/06/25 05:24 Dose: 90 mg Non-Formulary Medication (Sodium Zirconium Cyclosilicate [Lokelma]) 5 gm PO DAILY [facility] Ondansetron HCl (Ondansetron 2 Mg/Ml Sdv 2 Ml) 4 mg IVP Q6H PRN PRN Reason: NAUSEA AND VOMITING Last Admin: 09/03/25 22:28 Dose: 4 mg Pantoprazole Sodium (Pantoprazole 40 Mg Sdv) 40 mg IVP DAILY [facility] Last Admin: 09/06/25 05:22 Dose: 40 mg Sevelamer Carbonate (Sevelamer 800 Mg Tablet) 1,600 mg PO TID [facility] Last Admin: 09/06/25 07:49 Dose: 1,600 mg Vancomycin HCl (Vancomycin 1,000 Mg Sdv (Pharmacy Mix)) 0 mg XX PRN PRN PRN Reason: Pharmacy to Dose Vitals/I&O/Wt Last Vital Signs Temp 98.8 F 09/06/25 07:45 Pulse 94 09/06/25 10:15 Resp 24 H 09/06/25 10:15 BP 136/82 09/06/25 10:15 Pulse Ox 99 09/06/25 10:15 O2 Del Method Room Air 09/06/25 10:15 O2 Flow Rate 3 09/05/25 04:00 FiO2 60 09/04/25 09:16 09/05/25 09/06/25 09/06/25 22:59 06:59 14:59 Intake Total 715.417 / 1200.417 50 / 1250.417 360 / 360 Output Total 5494 / 5494 Balance -4778.583 / -4293.583 50 / -4243.583 360 / 360 Weight last 48 hrs Weight 41.5 kg Weight 41.4 kg Weight 41.9 kg Weight 41.7 kg Physical Exam 2 Narrative: General: Awake alert oriented x 3, no acute distress, able to talk in complete sentences Patient seen vi [facility] today Data 09/04/25 04:57 09/06/25 04:20 Micro: Microbiology 09/06/25 00:23 Legionella Urinary Antigen - Final Urine,Voided A&P Assessment and plan 1. Sepsis: 2. Acute pulmonary edema: 3. Multifocal pneumonia: 4. Chronic steroid use: Plan: 25 year old male with h/o failed kidney transplant, on chronic steroid prednisone 5 mg (?compliance) ,non compliant with dialysis, recent admission for MSSA bacteremia, pneumonia with moraxella catarrhalis and sepsis readmitted on 09/03 with acute respiratory distress. Discharged with iv cefazolin with HD on last discharge on 08/23, however has likely not received any abx due to missed dialysis. Currently CXR shows B/l infiltrates likely related to combination of pneumonia and pulmonary edema. He had a witnessed episode of vomiting yesterday therefore aspiration likely contributing as well. Plan: Change cefepime to zosyn renally dosed for additional anerobic coverage for aspiration continue iv vancomycin Blood cx pending Check MRSA nasal screen , sputum cx and gram stain , urine legionella ag check CT chest w/contrast to assess for PE, possible septic emboli , possible empyema negative flu, covid and RSV PCR given chronic steroid use and B/L infiltrates, check sputum PJP PCR, serum fungitell and LDH will follow September 05, 2025 Clinically much improved today. He has been weaned down to room air. Able to talk in full sentences. Tmax 99 Fahrenheit. Unable to expectorate any sputum for dedicated PJP and sputum culture testing. LDH mildly elevated 235. Serum Fungitell currently pending. Given clinical improvement without dedicated PJP treatment and only mildly elevated LDH considered lower possibility at that this time. Would not add an empiric course. Okay to resume chronic prednisone 5 mg p.o. daily from an ID standpoint. Previous admission With MSSA bacteremia for which patient had been planned for a 6-week IV cefazolin course with dialysis, however given his noncompliance with dialysis he has not been able to comply with antibiotics either. Since compliance is likely to be an issue moving forward, we will instead switch to dalbavancin with first dose to be administered on day of discharge followed by subsequent dose 1 week later. For aspiration pneumonia, will transition to oral antibiotics when nearing discharge. For now continue empiric piperacillin/tazobactam and vancomycin. MRSA nasal screen is currently pending at this time. Sep 06, 2025 Remains on room air. No respiratory distress. Afebrile. Blood cx negative to date from 09/03 and 09/04. Patient has been discharged today per primary team. He was discharged with 6 weeks of iv cefazolin for MSSA bacteremia on previous admission, he is yet to complete remaining 3 weeks course. Given his non compliance with dialysis and oral antibiotics (reports missing and sometimes taking excess medications intentionally when acutely stressed), arranging iv cefazolin with HD or oral abx regimen for the bacteremia is unreliable for Mr. Sainz. He will received one dose of dalbavancin 1000mg today with subsequent doses of dalbavancin 750mg x 1 one week later and one dose 2 weeks later to be arranged by case management at the infusion center. For his current pneumonia, he may be discharged with 5 days of oral Augmentin 500/125mg BID and levaquin 250mg daily x 5 days to complete course. Low suspicion for PJP currently. He is unable to expectorate for sputum testing. PDMP PDMP Reviewed: Not Reviewed Attestations 2 Medical Necessity Statement*: per admitting Coding Level of Care Code Acute Code for [facility] Fwd Diagnoses Sepsis A41.9 Acute pulmonary edema J81.0 Multifocal pneumonia J18.8 Chronic steroid use
--- NOTE | 2025-09-06 13:00 | PC.NURSE ---
Patient was given all discharge instructions, follow up appointments, and prescriptions. IV was discontinued. Patient was stable during discharge.
--- NOTE | 2025-09-07 17:35 | DCPLANNER ---
CALLED [facility] FOR PRIMARY CARE FOR Vance ,clinic responds that pcp now at [facility] ATTEMPT TO SCHEDULED APPOINTMENT , NO ONE ANSWERS PHONE. nurse advised to give patients instructions to call clinic to schedule his appointments for follow up .
[2025-09-08 16:58] LABS: Amphetamines Level NEGATIVE ng/mL (<500)
[2025-09-10 17:04] LABS: Fungitell 1-3-B Glucan Assay 41 pg/mL (<60); Interpretation Negative (Negative)
== END 2025-09-06 12:46 | disposition home or self-care (01) | DRG 193 ==
LOC: ER 06:19 → ICU 07:41
PROVIDERS: Internal Medicine; Internal Medicine Nephrology; Student in an Organized Health Care Education/Training Program; Admitting Provider Family Medicine; Emergency Provider Emergency Medicine; PCP Family Medicine; Visit Provider Family Medicine
DX: J18.9 Pneumonia, unspecified organism (principal); G93.41 Metabolic encephalopathy; J96.01 Acute respiratory failure with hypoxia; N18.6 End stage renal disease; E87.21 Acute metabolic acidosis; G40.89 Other seizures; I12.0 Hypertensive chronic kidney disease with stage 5 chronic kidney disease or end stage renal disease; I16.1 Hypertensive emergency; J69.0 Pneumonitis due to inhalation of food and vomit; E87.5 Hyperkalemia; Z99.2 Dependence on renal dialysis; F17.290 Nicotine dependence, other tobacco product, uncomplicated; F17.220 Nicotine dependence, chewing tobacco, uncomplicated; Z91.158 Patient's noncompliance with renal dialysis for other reason; D64.9 Anemia, unspecified; Z66 Do not resuscitate; Z79.52 Long term (current) use of systemic steroids; F41.9 Anxiety disorder, unspecified; T36.96XA Underdosing of unspecified systemic antibiotic, initial encounter; Z91.128 Patient's intentional underdosing of medication regimen for other reason; Y92.9 Unspecified place or not applicable
CPT/HCPCS: 36415; 36416; 36600; 71045; 71260; 80051; 80053; 80202; 80307; 82330; 82728; 82803; 82805; 82962; 83540; 83550; 83605; 83615; 83735; 83880; 84100; 85025; 86706; 86803; 87040; 87340; 87449; 87637; 90935; 93005; 94640; 94660; 96365; 96372; 96375; 99291; A4570; J0360; J0456; J0612; J0692; J0696; J0875; J1200; J1644; J1650; J1815; J1938; J2060; J2270; J2404; J2405; J2470; J2543; J2919; J3373; J3490; J7042; J7050; J7060; J7799; J9999; P9047; Q3014

== ENCOUNTER 2025-10-06 16:03 | Inpatient (IN) | payer MEDICARE, MEDICAID, SELFPAY ==
[2025-10-06] VITALS (72 sets, daily range): BP systolic 147–242; BP diastolic 100–193; PULSE 62–148; RESP 7–40; TEMP 36.6; O2SAT 86–100; BMI 21.7; BMI 20.4
--- OUTSIDE RECORDS SUMMARY | 2025-10-06 16:08 | XMS_ITS | Encounter Summary ---
Author Organization [facility], [facility] Address [address] [facility] [address] [place] [address] Phone Care Team Providers Care Smelter Operator Name Role Phone Unavailable Primary Care Provider Unavailabl e Encounter Details Date Type Department Care Team (Late st Contact Info) Description 09/07/2025 TCM in Dialysis Clinic [facility], [facility] [address] [place] [address] Cori Sy CNP [address] [facility] [address] [facility] [address] [place] [address] Social History Tobacco Use Types Packs/Day Years Used Date Smoking Tobacco: Never Assessed Sex and Gender Information Value Date Recorded Sex Assigned at Not on file Legal Sex Male 12:34 PM EST Gender Identity Not on file Sexual Orientation Not on file documented as of this encounter Progress Notes * Cori Sy CNP - 09/07/2025 12:00 AM CST Patient: Vance Sainz : 2000 Note Type: Dialysis TCM Service Date: 09/07/2025 The patient was seen for a [id number]-[id number] visit as part of Transitional Care Management services. 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 HOSPITALIZATION SUMMARY Patient transitioned from: Hospital Patient transitioned to: Home Admit Date: 09/03/2025 Discharge Date: 09/06/2025 Reason for admission: I don't have a finalized DC summary with notes to review, suspect pt dx with PNA was started on IV abx during pt stay, per last draft of DC summary he was to be on Cefazolin IV but pt says it was changed to PO he is unsure name of it but declines need for IV abx staff to contact hospital to get final DC summary HOME MEDICATIONS Discharge med list reviewed - changes reconciled and discussed with patient. TREATMENT MEDICATIONS ORDERS Cefazolin 2000 mg IV Every Treatment Post Dialysis 08/24/2025 - 09/19/2025 Heparin Sodium (Porcine) 1,000 Units/mL Systemic 300 units IVP Every Treatment 06/22/2025 - 06/21/2026 Heparin Sodium (Porcine) 1,000 Units/mL Systemic 2000 units IVP Every Treatment 06/22/2025 - 06/21/2026 Lidocaine HCl 1% 0.4 mL ID Every Treatment Pre Dialysis 06/22/2025 - 06/21/2026 Mircera 150 mcg IVP Every 2 weeks During Dialysis 09/05/2025 - 09/04/2026 Vitamin D (Calcitriol) Oral 1.0 mcg ORAL 3X Week Post Dialysis 07/18/2025 - 07/17/2026 PHYSICAL EXAM Exam performed. Vital Signs Reviewed. CV - Blood pressure noted. No edema. DIALYSIS PRESCRIPTION Dry weight during admission reviewed - no change to EDW. Treatment Data Treatment Date: 09/07/2025 started at: 9:28 AM Dialysate / Machine Temp (prescribed): 37.0*C Dialysate / Machine Temp (actual): 37.2*C BFR (prescribed): 450 BFR (actual): 450 DFR (prescribed): Autoflow 2.0 DFR (actual): 500 Prescribed Time: 03:00 EDW (kg): 45.0 Dialyzer: FX CorAL 80 Dialysate: 2.0 K, 2.5 Ca, 1.0 Mg, 100 Dextrose (N2251) Sodium: 137 Bicarb: 35 Pre Dialysis Vitals Pre BP Sit: 211/132 Pre Wt (kg): 49.6 EDW Deviation (kg): 4.6 Temp: 98.2*F Current Dialysis Vitals BP Sit: 186/125 AP/RF ENGINEER: -- Pulse: 120 CARE COORDINATION Post-discharge follow-up appointments reviewed with the patient. EDUCATION Education relevant to the discharge diagnosis provided to the patient or caregiver IMPRESSION & PLAN COMMENTS: 1. Cont HD 3 times/week with labs PRN and MOnthly 2. HTN - recommend take meds as prescribed, make adjustments as needed VISIT DIAGNOSES CPT Code 41890 - High complexity, seen within 7 days of discharge. N18.6 End stage renal disease COMMENTS: Monitor labs monthly and PRN for dialysis Evaluate that clearance is met as well as treatment compliance. Assess for any changes that may be needed to help with clearance. Treat with dialysis 3 times/week I12.0 Hypertensive chronic kidney disease with stage 5 chronic kidney disease or end stage renal disease COMMENTS: Monitor BP while at dialysis review medications adjust as needed discuss weight Signed by: CORI SY CNP on 09/07/2025 at 03:08:08 PM Transcribed by: CORI SY CNP on 09/07/2025 at 03:08:08 PM documented in this encounter Plan of Treatment Not on file documented as of this encounter Visit Diagnoses Not on filedocumented in this encounter
--- OUTSIDE RECORDS SUMMARY | 2025-10-06 16:08 | XMS_ITS | Encounter Summary ---
Author Organization [facility], [facility] Address [address] [facility] [address] [place] [address] Phone Care Team Providers Care Clerical Associate Name Role Phone Unavailable Primary Care Provider Unavailabl e Encounter Details Date Type Department Care Team (Late st Contact Info) Description 02/15/2025 TCM in Dialysis Clinic 8[facility], [facility] [address] [place] [address] Saskia Peterson OVERHEAD CRANE TECHNICIAN [address] [facility] [address] [place] [address] Social History Tobacco Use Types [...] 02/15/2025 The patient was seen for a osmz-[id number] visit as part of Transitional Care Management services. 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 COMMENTS: See jennifer 1.0. Also hospitalized at [facility] this week for vol overload and [...] Reviewed and updated list in p-hub. Current [facility] Outpatient Medications amlodipine 10 mg tablet [...] by mouth every night at bedtime. Current [facility] Allergies Allergen: No Known Allergies Allergen: [...] 99.1*F Current Dialysis Vitals BP Sit: 145/84 AP/VENEER REPAIRER MACHINE: -- Pulse: 88 CARE COORDINATION Post-discharge follow-up [...] Discussed with staff. VISIT DIAGNOSES CPT Code 12558 - High complexity, seen within 7 days [...]
--- OUTSIDE RECORDS SUMMARY | 2025-10-06 16:08 | XMS_ITS | Encounter Summary ---
Author Organization [facility], [facility] Address [address] [place] [address] Phone Care Team Providers Care Assembler For Puller Over Machine Name Role Phone Unavailable Primary Care Provider Unavailabl e Encounter Details Date Type Department Care Team (Late st Contact Info) Description 07/27/2025 TCM in Dialysis Clinic [facility], [facility] [address] [place] [address] Saskia Navas NP [address] [facility] [address] [facility] [address] [place] [address] Social History Tobacco Use Types [...] Vance Sainz, 2000, 25y, M Dialysis Location: [facility] Attending Fire Lieutenant: Shahriar Byers Service Date: 07/27/2025 Service Provider: [...]
--- OUTSIDE RECORDS SUMMARY | 2025-10-06 16:08 | XMS_ITS | Encounter Summary ---
Author Organization [email or web address], [facility] Address [address] [facility] [address] [place] [address] Phone Care Team Providers Care Canal Boat Captain Name Role Phone Unavailable Primary Care Provider Unavailabl e Encounter Details Date Type Department Care Team (Late st Contact Info) Description 10/03/2025 Orders Only [email or web address] [address] [place] [address] [place] [address] Shahriar Byers MD [address] [facility] [facility] [address] [place] [address] Social History Tobacco Use Types [...] Procedure Name Priority Date/Time Associated Diagnosis Comments HEMOGLOBIN Routine 10/03/2025 documented in this encounter Results * (ABNORMAL) Hemoglobin (10/03/2025) Hemoglobin 10.5(L) 13.2 - 14.0 g/dL [facility] 10/03/2025 09/28/2025 5:2 8 AM 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
--- OUTSIDE RECORDS SUMMARY | 2025-10-06 16:08 | XMS_ITS | Encounter Summary ---
Author Organization [facility], [facility] Address [address] [facility] [address] [place] [address] Phone Care Team Providers Care Computer Operations Manager Name Role Phone Unavailable Primary Care Provider Unavailabl e Encounter Details Date Type Department Care Team (Late st Contact Info) Description 08/24/2025 TCM in Dialysis Clinic [facility], [facility] [address] [facility] [address] [place] [address] Sorin John NP [address] [address] Social History Tobacco Use Types Packs/Day Years Used Date Smoking Tobacco: Never Assessed Sex and Gender Information Value Date Recorded Sex Assigned at Not on file Legal Sex Male 12:34 PM EST Gender Identity Not on file Sexual Orientation Not on file documented as of this encounter Progress Notes * Sorin John NP - 08/24/2025 12:00 AM CST Patient: Vance Sainz : 2000 Note Type: Dialysis TCM Service Date: 08/24/2025 The patient was seen for a [id number] visit as part of Transitional Care Management services. 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 COMMENTS: Reviewed hospital stay, ongoing iv antibiotic plan, oral medications for disease management. HOSPITALIZATION SUMMARY Patient transitioned from: Hospital Patient transitioned to: Home Admit Date: 08/18/2025 Discharge Date: 08/23/2025 Discharged info reviewed: No outstanding diagnostic tests and treatments Reason for admission: Seizures post extended period of missing dialysis treatments, found to have MSSA bacteremia, records do not cite expected source. Of note, his blood sample was positive for methamphetamine. HOME MEDICATIONS Discharge med list reviewed - changes reconciled and discussed with patient. Active treatment medication orders reviewed - no changes. TREATMENT MEDICATIONS ORDERS Heparin Sodium (Porcine) 1,000 Units/mL Systemic 300 units IVP Every Treatment 06/22/2025 - 06/21/2026 Heparin Sodium (Porcine) 1,000 Units/mL Systemic 2000 units IVP Every Treatment 06/22/2025 - 06/21/2026 Iron Sucrose (Venofer) 100 mg IVP Every Treatment During Dialysis 08/10/2025 - 08/31/2025 Lidocaine HCl 1% 0.4 mL ID Every Treatment Pre Dialysis 06/22/2025 - 06/21/2026 Mircera 100 mcg IVP Every 2 weeks During Dialysis 08/10/2025 - 08/09/2026 Vitamin D (Calcitriol) Oral 1.0 mcg ORAL 3X Week Post Dialysis 07/18/2025 - 07/17/2026 PHYSICAL EXAM Exam not performed. DIALYSIS PRESCRIPTION Dry weight during admission reviewed - no change to EDW. Treatment Data Treatment Date: 08/24/2025 started at: 9:33 AM Dialysate / Machine Temp (prescribed): 37.0*C Dialysate / Machine Temp (actual): 36.5*C BFR (prescribed): 450 BFR (average delivered): 450 DFR (prescribed): Autoflow 2.0 DFR (average delivered): 800 Prescribed Time: 03:00 Actual Time: 02:04 EDW (kg): 45.0 Dialyzer: FX CorAL 80 Dialysate: 2.0 K, 2.5 Ca, 1.0 Mg, 100 Dextrose (N2251) Sodium: 137 Bicarb: 35 Pre Dialysis Vitals Pre BP Sit: 176/122 Pre Wt (kg): 46.6 EDW Deviation (kg): 1.6 Temp: 98.6*F Post Dialysis Vitals Post BP Sit: 193/120 Post Wt (kg): 46.2 CARE COORDINATION Post-discharge follow-up appointments reviewed with the patient. COMMENTS: Unclear if actively established with PCP: reviewed need to obtain SW visiting with patient regarding health follow up, compliance and management: reviewing available resources for support IMPRESSION & PLAN COMMENTS: Administer IV abt for MSSA, monitor for increasing or new symptoms of infection. VISIT DIAGNOSES CPT Code 03345 - High complexity, seen within 7 days of discharge. B95.61 Methicillin susceptible Staphylococcus aureus infection as the cause of diseases classified elsewhere COMMENTS: Discharge follow up abt 18 doses to be given with each dialysis treatment. Reviewed, monitor for declining function, new or advancing infectious symptoms Signed by: SORIN JOHN NP on 08/24/2025 at 02:50:28 PM Transcribed by: SORIN JOHN NP on 08/24/2025 at 02:18:07 PM documented in this encounter Plan of Treatment Not on file documented as of this encounter Visit Diagnoses Not on filedocumented in this encounter
--- OUTSIDE RECORDS SUMMARY | 2025-10-06 16:08 | XMS_ITS | Encounter Summary ---
Author Organization [facility], [facility] Address [address] [place] [address] Phone Care Team Providers Care Timber Spotter Name Role Phone Unavailable Primary Care Provider Unavailabl e Encounter Details Date Type Department Care Team (Late st Contact Info) Description 09/28/2025 [facility] [place], [facility] [address] [place] [place] [address] Saskia Navas NP [address] [facility] [address] [facility] [address] [place] [address] End stage renal disease; Dependence [...] Dialysis Note - Saskia Navas NP - 09/28/2025 12:00 AM CST Patient: Vance Sainz, 2000, 25y, M Dialysis Location: [place] Attending Real Time Analyst: Shahriar Byers Service Date: 09/28/2025 Service Provider: Saskia Navas NP I met face to face with the patient today. 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 He does look like he is feeling better today and reports that he is feeling better. Blood pressure elevated with noncompliance with medication's. I visited with him with him and his significant other Chantell. He tellsme that 2 to 3 weeks ago he took 90 prednisone trying to kill himself. Tells me today he has no suicidal ideation and no plans to harm himself. His girlfriend with him is in agreement with the statements he has made today. I spoke with social work who will report this to adult protective services. I once again encouraged Vance to follow up on the many mental health assistance referrals we have provided to him. Medications and labs reviewed. HOME MEDICATIONS Home Medications: morphine 15 mg, 15-30 mg q 6 hrs PRN #90 tablets given 09/06/2025 no refills from hospital labetalol 400 mg, by mouth, Take 1 tablet twice a day losartan 50 mg, by mouth, 2 tablet once a day nifedipine 90 mg, by mouth, Take 1 tablet once a day as directed prednisone 5 mg, by mouth, Take 1 tablet once a day as directed history of kidney transplant Lokelma (sodium zirconium cyclosilicate) 5 gram, dissolved in water, Take 1 packet once a day as directed clonidine HCl tablet 0.1 mg, as directed, Take 2 tablet three times a day as directed Sevelamer Carbonate Tablet (Renvela) 800 mg, By Mouth, Take 2 Tablet Three times a day With Meals Take 1-2 tablets po TID with meals. 2 tablets for larger meals and 1 for smaller meals. hydralazine 100 mg, by mouth, Take 1 tablet three times a day for high blood pressure methocarbamol 750 mg, by mouth, Take 1 tablet every eight hours as needed for muscle spasm sumatriptan 20 mg/actuation, into one nostril, 1 spray every twelve hours as needed Allergies: No Known Allergies LAST HOSPITALIZATION Discharge Diagnosis: J18.9 Pneumonia, unspecified organism J80 Acute respiratory distress syndrome Admission Date 09/02/25 Discharge Date 09/06/25 DIALYSIS PRESCRIPTION IHD 3x Week Start date: 09/21/25 Dialyzer: FX CorAL 80 BFR: 450 DFR: Autoflow 2 Potassium: 2.0 Sodium: 137 EDW: 44 Duration: 3:00 Calcium: 2.5 Bicarb: 35 Rx updated on: 09/21/2025 TREATMENT ASSESSMENT Comments: non compliant, missed Hd treatments, meds Blood pressure elevated. BP Stand Pre 09/28/2025: 191/129 09/26/2025: 209/138 09/23/2025: 204/131 BP Sit Pre 09/28/2025: 191/136 09/26/2025: 207/131 09/23/2025: 200/136 BP Stand Post 09/28/2025: 171/121 09/26/2025: 165/120 09/23/2025: 185/139 BP Sit Post 09/28/2025: 183/123 09/26/2025: 162/127 09/23/2025: 186/122 Prescribed Tx time 09/28/2025: 3:00 09/26/2025: 3:00 09/23/2025: 3:00 Tx Duration 09/28/2025: 1:57 09/26/2025: 2:02 09/23/2025: 1:30 Missed Treatments 3 - last 30 days 7 - last 60 days 09/02 - recent FLUID ASSESSMENT Comments: non compliant, missed treatments Fluid status not acceptable. Interdialytic weight gain not acceptable. Optimal weight discussed. EDW (kg) 09/28/2025: 44.0 09/26/2025: 44.0 09/23/2025: 44.0 Weight Pre (kg) 09/28/2025: 48.7 09/26/2025: 50.6 09/23/2025: 48.5 Weight Post (kg) 09/28/2025: 47.2 09/26/2025: 47.1 09/23/2025: 46.1 PWV (kg) 09/28/2025: 3.2 09/26/2025: 3.1 09/23/2025: 2.1 UF Rate (mL/kg/hr) 09/28/2025: 16.3 09/26/2025: 36.5 09/23/2025: 34.7 ACCESS ASSESSMENT Access Type: AVFistula Access SubType: Standard Access Status: Active (In Use) - 08/14/2023 Access Location: Right Forearm Created: --/--/---- Flow 09/21/2025: 726 05/26/2025: 385 05/03/2025: 842 Vascular access reviewed. Current access is permanent and functioning well. ANEMIA ASSESSMENT Comments: suspect some dilutional with vol excess. not here to receive RUBA, has infection. HGB below goal. Treatment protocol ordered. 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 Resumed dialysis in 2022 at [facility]. Patient is stable. Patient discussed with nursing. Patient data updated 09/28/2025 at 4:29 PM Signed By: Saskia Navas NP on 09/28/2025 4:33:36 PM documented in this encounter Plan of Treatment Not on file documented as of this encounter Visit Diagnoses Diagnosis End stage renal disease Dependence on renal dialysis documented in this encounter
--- OUTSIDE RECORDS SUMMARY | 2025-10-06 16:08 | XMS_ITS | Encounter Summary ---
Author Organization [facility], [facility] Address [address] [address] Phone Care Team Providers Care Payroll Technician Name Role Phone Unavailable Primary Care Provider Unavailabl e Reason for Visit * Reason Comments Med Refill Encounter Details Date Type Department Care Team (Late st Contact Info) Description 04/14/2024 Refill [facility] [address] [facility] [address] [place] [address] Shahriar Byers MD [address] [address] Social History Tobacco Use Types [...]
--- OUTSIDE RECORDS SUMMARY | 2025-10-06 16:08 | XMS_ITS | Encounter Summary ---
Author Organization [facility], [facility] Address [address] [place] [address] Phone Care Team Providers Care Sr. Operations Manager Name Role Phone Unavailable Primary Care Provider Unavailabl e Encounter Details Date Type Department Care Team (Late st Contact Info) Description 10/06/2025 Treatment [facility] [address] [place] [address] Saskia Navas NP [address] [facility] [address] [facility] [address] [place] [address] End stage renal disease; Dependence [...] Dialysis Note - Saskia Navas NP - 10/06/2025 12:00 AM CST Patient: Vance Sainz, 2000, 25y, M Dialysis Location: [place] Attending Dock Attendant: Shahriar Byers Service Date: 10/06/2025 Service Provider: Saskia Navas NP I met face to face with the patient today. 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 BP remains uncontrolled. Does not like to take BP meds at same time as pain meds soonly took pain meds this am. Discussed importance of BP management. Seeing Dr. Veronica for PCP, has adjusted pain medications. Medications and labs reviewed. HOME MEDICATIONS Home Medications: amlodipine 10 mg, by mouth, Take 1 tablet once a day for high blood pressure clonidine HCl (clonidine hcl) 0.2 mg, by mouth, Take 1 tablet every eight hours for high blood pressure morphine 15 mg, 15-30 mg q 6 hrs PRN #90 tablets given 09/06/2025 no refills from hospital labetalol 400 mg, by mouth, Take 1 tablet twice a day losartan 50 mg, by mouth, 2 tablet once a day prednisone 5 mg, by mouth, Take 1 tablet once a day as directed history of kidney transplant Lokelma (sodium zirconium cyclosilicate) 5 gram, dissolved in water, Take 1 packet once a day as directed Sevelamer Carbonate Tablet [...] 35 Rx updated on: 09/21/2025 TREATMENT ASSESSMENT Blood pressure elevated. Medications adjusted. BP Stand Pre 10/03/2025: 185/111 09/30/2025: 198/130 09/28/2025: 191/129 BP Sit Pre 10/03/2025: 190/119 09/30/2025: 224/138 09/28/2025: 191/136 BP Stand Post 10/03/2025: 181/110 09/30/2025: 169/127 09/28/2025: 171/121 BP Sit Post 10/03/2025: 210/70 09/30/2025: 190/126 09/28/2025: 183/123 Prescribed Tx time 10/03/2025: 3:00 09/30/2025: 3:00 09/28/2025: 3:00 Tx Duration 10/03/2025: 2:19 09/30/2025: 2:17 09/28/2025: 1:57 Missed Treatments 1 - last 30 days 7 - last 60 days 10/05 - recent FLUID ASSESSMENT Comments: non compliant Fluid status not acceptable. Interdialytic weight gain not acceptable. EDW (kg) 10/03/2025: 44.0 09/30/2025: 44.0 09/28/2025: 44.0 Weight Pre (kg) 10/03/2025: 47.4 09/30/2025: 49.4 09/28/2025: 48.7 Weight Post (kg) 10/03/2025: 46.1 09/30/2025: 46.1 09/28/2025: 47.2 PWV (kg) 10/03/2025: 2.1 09/30/2025: 2.1 09/28/2025: 3.2 UF Rate (mL/kg/hr) 10/03/2025: 12.2 09/30/2025: 31.4 09/28/2025: 16.3 ACCESS ASSESSMENT Access Type: AVFistula Access SubType: Standard Access Status: Active (In Use) - 08/14/2023 Access Location: Right Forearm Created: --/--/---- Flow 09/21/2025: 726 05/26/2025: 385 05/03/2025: 842 Vascular access reviewed. Current access is permanent and functioning well. ANEMIA ASSESSMENT Comments: suspect some dilutional with vol excess. not here to receive RUBA, has infection. HGB at goal. Treatment protocol ordered. 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 Resumed dialysis in 2022 at [facility]. Patient is stable. Patient discussed with nursing. Patient data updated 10/06/2025 at 1:33 PM Signed By: Saskia Navas NP on 10/06/2025 1:36:11 PM documented in this encounter Plan of Treatment Not on file documented as of this encounter Visit Diagnoses Diagnosis End stage renal disease Dependence on renal dialysis documented in this encounter
--- OUTSIDE RECORDS SUMMARY | 2025-10-06 16:08 | XMS_ITS | Clinical Summary ---
Author Organization [facility] [employer], [facility] Address [address] [place] [address] Phone Care Team Providers Care Pantry Attendant Name Role Phone Unavailable Primary Care Provider Unavailabl e Encounters Date Type Department Care Team Description 10/06/2025 Treatment [facility], [facility] [address] [place] [phone] Saskia Navas NP End stage renal disease; Dependence on renal dialysis 10/03/2025 Orders Only [place] [facility], [facility] [address] [place] [address] Shahriar Byers MD 09/28/[address] [place] [address] [facility], [facility] [address] [place] [address] Saskia Navas NP End stage renal disease; Dependence on renal dialysis 09/26/2025 Orders Only [place] [facility], [facility] [address] [place] [address] Shahriar Byers MD 09/23/2025 Orders Only [place] [facility] [address] [place] [address] Shahriar Byers MD 09/23/2025 Orders Only [place] [facility] [address] [place] [address] Shahriar Byers MD 09/21/[address] [place] [address] [facility], [facility] [address] [place] [address] Saskia Navas NP End stage renal disease; Dependence on renal dialysis 09/21/2025 Orders Only [place] [facility], [facility] [address] [place] [address] Shahriar Byers MD 09/19/2025 [facility], [facility] [address] [place] [address] Shahriar Byers MD 09/12/2025 Orders Only [facility], [facility] [address] [place] [address] Shahriar Byers MD 09/12/[address] [place] [address], [facility] [address] [place] [address] Shahriar Byers MD End stage renal disease; Dependence on renal dialysis 09/07/2025 Orders Only [place] [facility], [facility] [address] [place] [address] Shahriar Byers MD 09/07/2025 TCM in Dialysis Clinic [address] [place], [place] [address]rology [facility], [facility] [address] [place] [address] Cori Bedolla CNP 09/07/[address] [place] [address], [facility] [address] [place] [address] Cori Bedolla CNP End stage renal disease; Dependence on renal dialysis 08/31/2025 Documentation Only [address] [place] [address] Ne[facility]rology [facility], [facility] [address] [place] [address] Saskia Navas NP 08/24/2025 Orders Only [facility], [facility] [address] [place] [address] Shahriar Byers MD 08/24/2025 TCM in Dialysis Clinic [address] [place], [place] [address]rology [facility], [facility] [address] [place] [address] Amanda John, ITNO 08/24/[address] [place] [address], [facility] [address] [place] [address] Amanda John, TINO End stage renal disease; Dependence on renal dialysis; 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 08/12/2025 [facility], [facility] [address] [place] [address] Shahriar Byers MD 08/03/[address] [place] [address], [facility] [address] [place] [address] Saskia Navas NP End stage renal disease; Dependence on renal dialysis 08/02/2025 Orders Only [facility], [facility] [address] [place] [address] Shahriar Byers MD 07/27/[address] [place] [address], [facility] [address] [place] [address] Saskia Navas, TINO Hyperkalemia; Hypertensive urgency; End stage renal disease; Dependence on renal dialysis 07/27/2025 TCM in Dialysis Clinic [address] [place] [address], [facility] [address] [place] [address] Saskia Navas NP 07/25/2025 [facility], [facility] [address] [place] [address] Shahriar Byers MD 07/20/2025 Orders Only [place] [facility], [facility] [address] [place] [address] Shahriar Byers MD 07/20/[address] [place], [place] [address]rology [facility], [facility] [address] [place] [address] Saskia Navas NP End stage renal disease; Dependence on renal dialysis 2025 Orders Only [place] [facility] [address] [place] [address] Shahriar Byers MD 2025 Treatment [facility] [address] [place] [address] Shahriar Byers MD End stage renal disease; [...] Date/Time Associated Diagnosis Comments HEMOGLOBIN Routine 10/03/2025 HEMOGLOBIN Routine 09/26/2025 BLOOD CULTURE Routine 09/23/2025 CULTURE,BLOOD-2ND SET Routine 09/23/2025 BLOOD CULTURE Routine 09/23/2025 CULTURE,BLOOD-2ND SET Routine 09/23/2025 DIFFERENTIAL WITH WBC Routine 09/21/2025 CBC Routine 09/21/2025 PLATELET COUNT Routine 09/21/2025 [facility] LAB RESULTS Routine 09/19/2025 DIFFERENTIAL WITH WBC Routine 09/19/2025 CBC Routine 09/19/2025 PLATELET COUNT Routine 09/19/2025 POST DIALYSIS BUN Routine 09/19/2025 IRON AND TIBC Routine 09/19/2025 GLUCOSE, RANDOM Routine 09/19/2025 ALBUMIN Routine 09/19/2025 PROTEIN, TOTAL, SERUM Routine 09/19/2025 PHOSPHATE ( PHOSPHORUS) Routine 09/19/2025 CALCIUM Routine 09/19/2025 CO2, TOTAL Routine 09/19/2025 CHLORIDE Routine 09/19/2025 SODIUM Routine 09/19/2025 BUN Routine 09/19/2025 CREATININE, SERUM Routine 09/19/2025 POTASSIUM Routine 09/19/2025 HEMOGLOBIN Routine 09/12/2025 S[facility] LAB RESULTS Routine 09/07/2025 FERRITIN Routine 09/07/2025 HEMOGLOBIN Routine 09/07/2025 POST DIALYSIS BUN Routine 09/07/2025 BUN Routine 09/07/2025 HEMATOLOGY Routine 08/24/2025 CHEMISTRY Routine 08/24/2025 HEMATOLOGY Routine 08/12/2025 S[facility] LAB RESULTS Routine 08/02/2025 HD KINETICS Routine 08/02/2025 POST CHEMISTRY Routine 08/02/2025 CHEMISTRY Routine 08/02/2025 CHEMISTRY Routine 08/02/2025 HEMATOLOGY Routine 08/02/2025 HEMATOLOGY Routine 07/25/2025 HEMATOLOGY Routine 07/20/2025 TRACE ELEMENTS Routine 2025 [facility] LAB RESULTS Routine 2025 SPECIAL CHEMISTRY Routine 2025 HD KINETICS Routine 2025 POST CHEMISTRY Routine 2025 CHEMISTRY Routine 2025 HEMATOLOGY Routine 2025 CHEMISTRY Routine 2025 from Last 3 Months Results * (ABNORMAL) Hemoglobin (10/03/2025) Only the most recent of4 resultswithin the time period is included. Hemoglobin 10.5(L) 13.2 - 14.0 g/dL [facility] 10/03/2025 09/28/2025 5:2 8 AM VISCOSE CELLAR CHARGE HAND Narrative Resulting Agency Comment Performing Organization Information: Site ID: ANT Name: Luis Carlos Mcdaniela Address: [address] [place] [address] Director: Gonzalo Costa MD Shahriar Byers MD LAB BLOOD ORDERABLES Final Result Performing Organization Address [facility] de Phone Number [facility] Luis Carlos [address] [address] * Blood culture (09/23/2025) Only the most recent of2 resultswithin the time period is included. Culture Result, Blood-2nd Set SEE NOTE [facility] Comment: CULTURE, BLOOD NO.2 Micro Number: [id number] Test Status: Final Specimen Source: Blood,fistula/graft Specimen Quality: Adequate Result: No growth after 5 days TRANSPORT MEDIA: Aerobic bottle only received. 09/23/2025 09/29/2025 12: 43 PM VISCOSE CELLAR CHARGE HAND Narrative [facility] - 09/29/2025 2:12 PM VISCOSE CELLAR CHARGE HAND SPLIT FROM [id number] FASTING: UNKNOWN Resulting Agency Comment Performing Organization Information: Site ID: ANT Name: Luis Carlos Schmitz Address: [address] [place] [phone] Director: Gonzalo Costa MD Shahriar Byers MD LAB MICROBIOLOGY - NERAL ORDERABLES Final Result Performing Organization Address City/[facility] [address]/[facility] de Phone Number [facility] Luis Carlos [address]cd[address] [address] * Blood culture (09/23/2025) Only the most recent of2 resultswithin the time period is included. Culture, Blood SEE NOTE [facility] Comment: CULTURE, BLOOD Micro Number: [id number] Test Status: Final Specimen Source: Blood,cvc (a/v)catheter-indwel Specimen Quality: Adequate Result: No growth after 5 days TRANSPORT MEDIA: Anaerobic bottle only received. 09/23/2025 09/29/2025 12: 44 PM VISCOSE CELLAR CHARGE HAND Narrative [facility] - 09/29/2025 2:27 PM VISCOSE CELLAR CHARGE HAND SPLIT FROM [id number] FASTING: UNKNOWN Resulting Agency Comment Performing Organization Information: Site ID: ANT Name: [facility] Address: [address] [place] [phone] Director: Gonzalo Costa MD Shahriar Byers MD LAB MICROBIOLOGY - [facility] ORDERABLES Final Result [facility] Luis Carlos Foy-Iliana [address] [place] [address] [place] [address] * (ABNORMAL) Differential with WBC (09/21/2025) Only the most recent of2 resultswithin the time period is included. WBC 5.0 3.8 - 10.8 Thousand/u L [facility] Neutrophils Absolute 2,260 1,500 - 7,800 cells/uL [facility] Lymphocytes Absolute 1,170 850 - 3,900 cells/uL [facility] Monocytes Absolute 1,140(H) 200 - 950 cells/uL [facility] Eosinophils Absolute 320 15 - 500 cells/uL [facility] Basophils Absolute 110 0 - 200 cells/uL [facility] Neutrophils Relative 45.2 % [facility] Lymphocytes 23.4 % [facility] Monocytes 22.8 % [facility] Eosinophils 6.4 % [facility] Basophils Relative 2.2 % [facility] Comment(s) [facility] Comment: The above test was performed; however, the results may be compromised due to the presence of fibrin. Please resubmit if clinically indicated. 09/21/2025 09/21/2025 10: 57 AM VISCOSE CELLAR CHARGE HAND Narrative Resulting Agency Comment Performing Organization Information: Site ID: ANT Name: [facility] Address: [address] [place] [address] [place] [address] Director: Gonzalo Costa MD Shahriar Byers MD LAB BLOOD ORDERABLES Final Result Performing Organization Address [facility] Co de Phone Number [facility] [address] [place] [phone] * Platelet count (09/21/2025) Only the most recent of2 resultswithin the time period is included. Pathologist [facility] Platelets 201 140 - 400 Thousand/uL [facility] 09/21/2025 09/21/2025 10: 57 AM VISCOSE CELLAR CHARGE HAND Narrative Resulting Agency Comment Performing Organization Information: Site ID: [place] Name: [facility] Address: [address] [place] [phone] Director: Gonzalo Costa MD Shahriar Byers MD LAB BLOOD ORDERABLES Final Result Performing Organization Address [facility] [address]/[facility] de Phone Number [facility] [address] [place] [phone] * (ABNORMAL) CBC (09/21/2025) Only the most recent of2 resultswithin the time period is included. Pathologist [facility] WBC 5.0 3.8 - 10.8 Thousand/u L [facility] RBC 2.77(L) 4.20 - 5.80 Million/uL [facility] Hemoglobin 8.9(L) 13.2 - 14.0 g/dL [facility] Hematocrit 27.7(L) 39.4 - 51.1 % [facility] MCV 100.0 81.4 - 101.7 fL [facility] MCH 32.1 27.0 - 33.0 pg [facility] MCHC 32.1 31.6 - 35.4 g/dL [facility] Comment: For adults, a slight decrease in the calculated MCHC value (in the range of 30 to 32 g/dL) is most likely not clinically significant; however, it should be interpreted with caution in correlation with other red cell parameters and the patient's clinical condition. RDW 17.8(H) 11.0 - 15.0 % [facility] 09/21/2025 09/21/2025 10: 57 AM VISCOSE CELLAR CHARGE HAND Narrative Resulting Agency Comment Performing Organization Information: Site ID: ANT Name: [facility] Address: [address] [place] [phone] Director: Gonzalo Costa MD Shahriar Byers MD LAB BLOOD ORDERABLES Final Result Performing Organization Address City/[facility] [address]/ZIP Co de Phone Number [facility] [address] [place] [phone] * (ABNORMAL) Iron and TIBC (09/19/2025) Pathologist [facility] Iron, Total 56 50 - 195 mcg/dL [facility] TIBC 195(L) 250 - 425 mcg/dL (calc) [facility] Iron Saturation (TSat) 29 20 - 48 % (calc) [facility] 09/19/2025 09/13/2025 5:5 6 AM VISCOSE CELLAR CHARGE HAND Narrative Resulting Agency Comment Performing Organization Information: Site ID: ANT Name: [facility] Address: [address] [place] [phone] Director: Gonzalo Costa MD Shahriar Byers MD LAB BLOOD ORDERABLES Final Result Performing Organization Address City/[facility] [address]/ZIP Co de Phone Number [facility] [address] [place] [phone] * [facility] Lab Results (09/19/2025) Only the most recent of4 resultswithin the time period is included. spKt/V Gotch 1.85 [facility] PCR 46.77 [facility] eNPCR 0.74 [facility] eKdrt/V 1.51 [facility] eKt/V (Tattersall) 1.60 [facility] WSTDKT/V 2.6 [facility] spKt/V (Daugirdas II) 1.91 [facility] nPCR_HD 0.77 [facility] eKt/V Gotch 1.51 [facility] 09/19/2025 09/19/2025 [facility] Ordering Provider LAB BLOOD ORDERABLES Final Result [facility] Contact Performing lab Unknown, [place] * Post Dialysis BUN (09/19/2025) Only the most recent of2 resultswithin the time period is included. BUN Post Dialysis 10 7 - 25 mg/dL [facility] 09/19/2025 09/13/2025 5:5 6 AM VISCOSE CELLAR CHARGE HAND Narrative Resulting Agency Comment Performing Organization Information: Site ID: ANT Name: [facility] Address: [address] [place], [place] [address] [address] Director: Gonzalo Costa MD Shahriar Byers MD LAB BLOOD ORDERABLES Final Result Performing Organization Address City/[facility] Co de Phone Number [facility] [id number] [place], [place] [address] [address] * (ABNORMAL) BUN (09/19/2025) Only the most recent of2 resultswithin the time period is included. BUN 49(H) 7 - 25 mg/dL [facility] 09/19/2025 09/13/2025 5:5 6 AM VISCOSE CELLAR CHARGE HAND Narrative Resulting Agency Comment Performing Organization Information: Site ID: ANT Name: [facility] Address: [address] [place], [place] [address]ner [place] [address] Director: Gonzalo Costa MD Shahriar Byers MD LAB BLOOD ORDERABLES Final Result Performing Organization Address City/[facility] [address]/ZIP Co de Phone Number [facility] [address] [place], [place] [address] [address] * Sodium (09/19/2025) Sodium 144 135 - 146 mmol/L [facility] 09/19/2025 09/13/2025 5:5 6 AM VISCOSE CELLAR CHARGE HAND Narrative Resulting Agency Comment Performing Organization Information: Site ID: ANT Name: Luis Carlos [facility] Address: [facility] Lana [facility] [place] [address] Director: Gonzalo Costa MD Shahriar Byers MD LAB BLOOD ORDERABLES Final Result Performing Organization Address City/[facility] [address]/ZIP Co de Phone Number [facility] [address] [place], [place] [address] [facility] [place] [address] * Protein, total (09/19/2025) Total Protein 6.1 6.1 - 8.1 g/dL [facility] 09/19/2025 09/13/2025 5:5 6 AM VISCOSE CELLAR CHARGE HAND Narrative Resulting Agency Comment Performing Organization Information: Site ID: ANT Name: Luis Carlos Schmitz Address: [address] [place], [place] [address] [facility] [place] [address] Director: Gonzalo Costa MD Shahriar Byers MD LAB BLOOD ORDERABLES Final Result Performing Organization Address City/[facility] [address]/ZIP Co de Phone Number [facility] [address] [place] [address] [place] [address] * Potassium (09/19/2025) Potassium 5.3 3.5 - 5.3 mmol/L [facility] 09/19/2025 09/13/2025 5:5 6 AM VISCOSE CELLAR CHARGE HAND Narrative Resulting Agency Comment Performing Organization Information: Site ID: ANT Name: Luis Carlos Schmitz Address: [address] [place], [place] [address] [facility] [place] [address] Director: Gonzalo Costa MD us Shahriar Byers MD LAB BLOOD ORDERABLES Final Result Performing Organization Address City/[facility] [address]/ZIP Co de Phone Number [facility] [address] [address] * (ABNORMAL) Phosphorus (09/19/2025) Phosphorus 8.1(H) 3.0 - 4.5 mg/dL [facility] 09/19/2025 09/13/2025 5: 56 AM VISCOSE CELLAR CHARGE HAND Narrative Resulting Agency Comment Performing Organization Information: Site ID: ANT Name: [facility] Address: [place] [address] Director: Gonzalo Costa MD us Shahriar Byers MD LAB BLOOD ORDERABLES Final Result Performing Organization Address [facility] Co de Phone Number [facility] [address] [facility] [place] [address] * (ABNORMAL) Glucose, random (09/19/2025) Glucose 106(H) 65 - 99 mg/dL [facility] Comment: For someone without known diabetes, a glucose value between 100 and 125 mg/dL is consistent with prediabetes and should be confirmed with a follow-up test. 09/19/2025 09/13/2025 5:5 6 AM VISCOSE CELLAR CHARGE HAND Narrative Resulting Agency Comment Performing Organization Information: Site ID: [place] Name: [facility] Address: Teresa Schwartz [facility] [place] [address] Director: Gonzalo Costa MD Shahriar Byers MD LAB BLOOD ORDERABLES Final Result Performing Organization Address City/[facility] Co de Phone Number [facility] [address] [facility] [address] * (ABNORMAL) Creatinine, serum (09/19/2025) Creatinine 12.1(H) 0.60 - 1.24 mg/dL [facility] Comment: Verified by repeat analysis. 09/19/2025 09/13/2025 5:5 6 AM VISCOSE CELLAR CHARGE HAND Narrative Resulting Agency Comment Performing Organization Information: Site ID: ANT Name: [facility] Address: [address] [place], [place] [address] [address] Director: Gonzalo Costa MD us Shahriar Byers MD LAB BLOOD ORDERABLES Final Result Performing Organization Address [facility]/ZIP Co de Phone Number [facility] [address] [place], [place] [address] [address] * Chloride (09/19/2025) Chloride 100 98 - 110 mmol/L [facility] 09/19/2025 09/13/2025 5:5 6 AM VISCOSE CELLAR CHARGE HAND Narrative Resulting Agency Comment Performing Organization Information: Site ID: ANT Name: [facility] Address: [address] [place], [place] [address] [address] Director: Gonzalo Costa MD Shahriar Byers MD LAB BLOOD ORDERABLES Final Result Performing Organization Address [facility] Co de Phone Number [facility] [address] [place], [place] [address] [address] * CO2 (09/19/2025) Bicarbonate (CO2) 28 20 - 29 mmol/L [facility] 09/19/2025 09/13/2025 5:5 6 AM VISCOSE CELLAR CHARGE HAND Narrative Resulting Agency Comment Performing Organization Information: Site ID: ANT Name: [facility] Address: [address] [place], [place] [address] [address] Director: Gonzalo Costa MD Shahriar Byers MD LAB BLOOD ORDERABLES Final Result Performing Organization Address City/[facility] [address]/ZIP Co de Phone Number [facility] [id number] [place] [phone] * Calcium (09/19/2025) Calcium 8.9 8.6 - 10.0 mg/dL [facility] 09/19/2025 09/13/2025 5:5 6 AM VISCOSE CELLAR CHARGE HAND Narrative Resulting Agency Comment Performing Organization Information: Site ID: ANT Name: [facility] Address: [address] [place] [phone] Director: Gonazlo Costa MD us Shahriar Byers MD LAB BLOOD ORDERABLES Final Result Performing Organization Address City/[facility] [address]/[facility] Co de Phone Number [facility] [address] [place], [place] [address] [address] * Albumin (09/19/2025) Albumin 4.3 3.6 - 5.1 g/dL [facility] 09/19/2025 09/13/2025 5:5 6 AM VISCOSE CELLAR CHARGE HAND Narrative Resulting Agency Comment Performing Organization Information: Site ID: ANT Name: [facility] Address: [address] [place] [phone] Director: Gonzalo Costa MD us Shahriar Byers MD LAB BLOOD ORDERABLES Final Result Performing Organization Address City/[facility] [address]/[facility] Co de Phone Number [facility] [address] [place] [phone] * (ABNORMAL) Ferritin (09/07/2025) Ferritin 1,213(H) 38 - 380 ng/mL [facility] 09/07/2025 09/07/2025 1:5 4 PM VISCOSE CELLAR CHARGE HAND Narrative Resulting Agency Comment Performing Organization Information: Site ID: [place] Name: [facility] Address: [address] [place] [address] Director: Gonzalo Costa MD Shahriar Byers MD LAB BLOOD ORDERABLES Final Result Performing Organization Address City/[facility] Street/[facility] Co de Phone Number [facility] [id number] Schwartz ANT [place] [phone] * (ABNORMAL) HEMATOLOGY (08/24/2025) Only the most recent of6 resultswithin the time period is included. Hemoglobin 8.6(L) 14.0 - 18.0 g/dL [facility] Comment: Verified by repeat analysis. Hemoglobin x 3 25.8(L) 42.0 - 54.0 % [facility] 08/24/2025 08/25/2025 9:4 6 AM VISCOSE CELLAR CHARGE HAND Narrative [facility] - 08/25/2025 Unless otherwise specified, test(s) performed at: [facility], [address] [place] [address] CHIPPING MACHINE OPERATOR: Ryan Singer M.D. For any questions, please call customer service at FREQUENCY:OTHER Resulting Agency Comment Specimen source: Blood Shahriar Byers MD LAB BLOOD ORDERABLES Final Result Performing Organization Address [facility] [facility] [address]/[facility] Co de Phone Number [facility] See order comments or contact performing lab Unknown, [place] * (ABNORMAL) [facility] Chemistry (08/24/2025) Only the most recent of5 resultswithin the time period is included. Pathologist [facility] BUN 36(H) 6 - 19 mg/dL [facility] 08/24/2025 08/25/2025 10: 30 AM VISCOSE CELLAR CHARGE HAND Narrative [facility] - 08/25/2025 Unless otherwise specified, test(s) performed at: [facility], [address] [place] [address] CHIPPING MACHINE OPERATOR: Ryan Singer M.D. For any questions, please call customer service at FREQUENCY:OTHER Resulting Agency Comment Specimen source: Serum Shahriar Byers MD LAB BLOOD ORDERABLES Final Result Performing Organization Address City/[facility] [address]/ZIP Co de Phone Number [facility] See order comments or contact performing lab Unknown, [place] * HD KINETICS (08/02/2025) Only the most recent of2 resultswithin the time period is included. % Urea Reduction 69 65 - 80 % [facility] 08/02/2025 08/04/2025 1:5 2 PM CDT Narrative Resulting Agency Comment Specimen source: Plasma Shahriar Byers MD LAB BLOOD ORDERABLES Final Result Performing Organization Address [facility] [address]/[facility] de Phone Number [facility] See order comments or contact performing lab Unknown, [place] * (ABNORMAL) POST CHEMISTRY (08/02/2025) Only the most recent of2 resultswithin the time period is included. Pathologist [facility] BUN Post Dialysis 28(H) 6 - 19 mg/dL [facility] 08/02/2025 08/04/2025 1:5 2 PM CDT Narrative [facility] - 08/04/2025 Unless otherwise specified, test(s) performed at: [facility], [address] [place] [address] CHIPPING MACHINE OPERATOR: Ryan Singer M.D. For any questions, please call customer service at FREQUENCY:MONTHLY Resulting Agency Comment Specimen source: Plasma Shahriar Byers MD LAB BLOOD ORDERABLES Final Result Performing Organization Address City/[facility] [address]/[facility] Co de Phone Number [facility] See order comments or contact performing lab Unknown, [place] * SPECIAL CHEMISTRY (2025) Vitamin D, 25-OH, Total 48.0 30.0 - 100.0 ng/mL [facility] Comment: Please Note: Effective August 17, 2023, the methodology for this test has changed to the [facility]. 2025 07/14/2025 9:3 3 AM CDT Narrative Resulting Agency Comment Specimen source: Serum Shahriar Byers MD LAB BLOOD BANK TEST O RDERABLES Final Result Performing Organization Address City/[facility] [address]/ZIP Co de Phone Number [facility] See order comments or contact performing lab Unknown, [place] * TRACE ELEMENTS (2025) Aluminum <5 0 - 10 mcg/L [facility] Comment: This test was developed and its performance characteristics determined by [facility]. It has not been cleared or approved by the FDA. The laboratory is regulated under CLIA as qualified to perform high complexity testing. This test is used for clinical purposes. It should not be regarded as investigational or for research. 2025 07/14/2025 9:3 2 AM CDT Narrative [facility] - 07/18/2025 Unless otherwise specified, test(s) performed at: [facility], [address] [place], [place] [id number] CHIPPING MACHINE OPERATOR: Ryan Singer M.D. For any questions, please call customer service at FREQUENCY:MONTHLY Resulting Agency Comment Specimen source: Serum Shahriar Byers MD LAB BLOOD ORDERABLES Final Result Performing Organization Address [facility] [address]/[facility] Co de Phone Number [facility] See order comments or contact performing lab Unknown, [place] from Last 3 Months Insurance Medicaid [place] ([id number]) [facility] Medicare
--- OUTSIDE RECORDS SUMMARY | 2025-10-06 16:09 | XMS_ITS | Encounter Summary ---
Author Organization [facility] Address [address] [address] Phone Care Team Providers Care Motor Teacher Name Role Phone Unavailable Primary Care Provider Unavailabl e Encounter Details Date Type Department Care Team (Late st Contact Info) Description 04/01/2023 Telephone [facility] [address] [address] Shawn Betancourt MD [address] [place] [address] Social History Tobacco Use Types Packs/Day Years [...]
--- OUTSIDE RECORDS SUMMARY | 2025-10-06 16:09 | XMS_ITS | Encounter Summary ---
Author Organization [facility] Address [address] [facility] [address] [place] [address] Phone Care Team Providers Care Golf Ball Trimmer Name Role Phone Unavailable Primary Care Provider Unavailabl e Encounter Details Date Type Department Care Team (Late st Contact Info) Description 08/27/2022 [facility] [address] [facility] [address] [place] [address] Kidney transplant status Social History [...]
--- OUTSIDE RECORDS SUMMARY | 2025-10-06 16:09 | XMS_ITS | Clinical Summary ---
Author Organization [facility] Address [address] [place] [address] Phone Care Team Providers Care Cargo Handler Name Role Phone Beverly Veronica MD Primary Care Provider +1- [phone] Allergies Active Allergy Reactions Criticality Noted Date Comments Nsaids (Non-Steroidal Anti-Inflammatory Drug) Unknown 06/24/2023 Remdesivir Other (See Comments) 07/22/2023 Pt doesnot want to take Sertraline Other (See Comments) Medium 09/14/2019 Causes suicidal thoughts. Medications predniSONE (DELTASONE) 5 mg tablet Take 5 mg by mouth daily. 05/19/20 23 Active calcitRIOL (ROCALTROL) 0.25 mcg capsule Take 0.75 mcg by mouth daily. Post dialysis 01/10/20 25 2025 Active clonazePAM (KlonoPIN) 1 mg tablet Take [...] 30 Tablet 2 02/04/20 25 Active vit B,C-FA-zinc-s dede-vit D3-E (RenaPlex-D) 800 mcg-12.5 mg -2,000 unit Tablet Take 1 Tablet by mouth. 02/16/20 25 Active FLUoxetine (PROzac) 10 mg capsule Take 1 Capsule by mouth daily. 05/19/20 25 Active methocarbamoL (ROBAXIN) 1,000 mg Tablet tablet Take 1 Tablet by mouth every 6 hours. 04/14/20 25 Active methoxy peg-epoetin beta (MIRCERA INJECTION) 75 mcg every 2 weeks. 04/21/20 25 2025 Active cefdinir (OMNICEF) 300 mg capsule Take 1 Capsule by mouth 2 times daily. 07/12/20 25 Active divalproex (DEPAKOTE) 500 mg delayed release tablet Take 1 Tablet by mouth 2 times daily. 06/30/20 25 Active naloxone (NARCAN) 4 mg/spray [place], Non-Aerosol EMERGENCY USE ONLY: Administer 1 spray (4 mg) in one nostril one time. May repeat in alternating nostrils every 2-3 min until responsive or EMS arrives. 2 Each 3 07/21/20 25 Active oxyCODONE (ROXICODONE) 10 mg tabletIndicat ions:Chronic neck pain,ESRD (end stage renal disease) ([facility]/HCC) Take 1 Tablet (10 mg) by mouth every 6 hours as needed for Pain, Moderate. Max Daily Amount: 40 mg 120 Tablet 10/05/20 25 Active oxyCODONE (ROXICODONE) 10 mg tabletIndicat ions:Chronic neck pain,ESRD (end stage renal disease) (CMS/HCC) Take 1 Tablet (10 mg) by mouth every 6 hours as needed for Pain, Moderate. Max Daily Amount: 40 mg 120 Tablet 11/03/19 26 Active oxyCODONE (ROXICODONE) 10 mg tabletIndicat ions:Chronic neck pain,ESRD (end stage renal disease) (CMS/HCC) Take 1 Tablet (10 mg) by mouth every 6 hours as needed for Pain, Moderate. Max Daily Amount: 40 mg 120 Tablet 12/01/19 26 Active oxyCODONE (ROXICODONE) 5 mg tabletIndicat ions:Chronic neck pain Take 1 Tablet (5 mg) by mouth every 8 hours as needed for Pain. Max Daily Amount: 15 mg 21 Tablet 08/17/20 25 2024 Discontinued oxyCODONE (ROXICODONE) 10 mg tabletIndicat ions:Chronic neck pain,ESRD (end stage renal disease) (CMS/HCC) Take 1 Tablet (10 mg) by mouth every 6 hours as needed for Pain, Moderate. Max Daily Amount: 40 mg 28 Tablet 09/29/20 25 2024 Discontinued Active Problems Problem Noted Date Diagnosed Date [...] as well. Depression 03/13/2010 Overview (05/29/2025): Assessment: Vanec has difficulty coping with his hopitalizations and [...] Encounters Date Type Department Care Team Description 10/04/2025 Refill [facility] [address] [phone] Beverly Veronica MD Chronic neck pain; ESRD (end stage renal disease) ([facility]) 10/03/2025 External Device Data STL ABSTRACTION Provider, Abstract 09/27/2025 Telephone [facility] [address] [phone] Beverly Veronica MD Needs Orders Written; Information 09/03/2025 12:55 AM POLISHING MACHINE TENDER - 09/03/2025 11:59 PM POLISHING MACHINE TENDER Hospital Encounter [facility] Emergency Medical Services [address] [phone] [facility] 08/29/2025 External Device Data STL ABSTRACTION Provider, Abstract 08/16/[address] [phone] Beverly Veronica MD Chronic neck pain 08/10/2025 12:20 AM CDT - 08/10/2025 11:59 PM CDT Hospital Encounter [facility] Emergency [address] [address] [facility] 08/02/[address] [phone] Beverly Veronica MD Chronic neck pain 08/01/2025 External Device Data STL ABSTRACTION Provider, Abstract 07/25/2025 External Device Data STL ABSTRACTION Provider, Abstract 07/25/2025 External Device Data STL ABSTRACTION Provider, Abstract 07/21/2025 11:40 AM CDT Office Visit [address] [phone] Beverly Veronica MD Chronic neck pain (Primary Dx); Dependence on renal dialysis; Anemia in chronic kidney disease, on chronic dialysis ([facility]/HCC) 07/20/2025 12:20 AM CDT - 07/20/2025 11:59 PM CDT Hospital Encounter [facility] Emergency Medical Services [address] [phone] [facility] Discharge Disposition: Home or Self Care 07/19/2025 Orders Only [facility] Health Information Management [place] [address] [place] [address] Provider, Abstract 07/14/2025 11:20 AM CDT Office Visit [facility] Family [facility] [place] [address] [phone] Beverly Veronica MD Acute pulmonary edema (CMS/HCC) (Primary Dx); Abscess; ESRD (end stage renal disease) (CMS/HCC); Chronic neck pain; Refused influenza vaccine 07/10/2025 - 07/10/2025 11:59 PM CDT Hospital Encounter [facility] Emergency Medical Services [address] [phone] [facility] Discharge Disposition: [facility] 07/08/2025 6:50 AM CDT - 07/08/2025 11:59 PM CDT Hospital Encounter [facility] Medical Services [address] [address] [facility] Discharge Disposition: [facility] from Last 3 Months Immunizations Immunization Administration [...] PNEUM OCOCCAL CONJUGATE VACCINE 20-VALENT (PCV20), POLYSACCHARIDE YUL870 CONJUGATE, ADJUVANT 0.5 ML (PF) IM 12/14/2024 [...] on file Legal Sex Male 8:04 PM POLISHING MACHINE TENDER Gender Identity Not on file Sexual Orientation [...] st Contact Info) Description 12/05/2025 2:40 PM POLISHING MACHINE TENDER Office Visit [facility] [address] [phone] Beverly Veronica MD [address] [phone] Health Maintenance Due Date Last Done Comments [...] METABOLIC PANEL Routine 07/17/2025 8:51 AM CDT from Last 3 Months Results * COMPREHENSIVE METABOLIC PANEL (07/18/2025 8:51 AM CDT) Only the most recent of2 resultswithin the time period is included. Blood us Abstract Provider CHEMISTRY ORDERABLES Final Res ult * ECHO COMPLETE - CONTRAST AND STRAIN IF INDICATED (07/18/2025 8:50 AM CDT) us Abstract Provider US ORDERABLES Final Result * BASIC METABOLIC PANEL (07/17/2025 8:52 AM CDT) Blood us Abstract Provider CHEMISTRY ORDERABLES Final Res ult from Last 3 Months Insurance MEDICAID [place] DUAL COMPLETE O [facility] [id number] RX [employer] RX Member Subscriber Plan / Payer (Ef fective 2025-Present) Name:AlistairVance Relation to Subscriber:Self Name:Alistair Vancemichael Barrera Subscriber ID:Not on file Payer ID:Not on file Group ID:[id number] Type:RX Medicare Part D Address: [place] [place] Advance Directives For more information, please contact: [phone] * Full Code (Latest Code Status on File) Date Activated Date Inactivated Comments 01/31/2025 2:27 PM 02/03/2025 8:44 PM Care Teams Cargo Handler Relationship Specialty Start Date End Date Beverly Veronica MD [address] [place] [phone] PCP - General Family Practice 05/29/25
--- OUTSIDE RECORDS SUMMARY | 2025-10-06 16:09 | XMS_ITS | Clinical Summary ---
Author Organization [facility] [employer] [facility] Address [address] [place] [address] Phone Care Team Providers Care Curtain Stitcher Name Role Phone Unavailable Primary Care Provider [...] (1 - Male 3-dose series) 2015 Pneumococcal Vaccines (3 of 3 - PCV20 or PCV21) 09/21/2017 07/27/2017, 08/30/2010, 09/21/2003 Depression Screening 2018 Hepatitis C Screening 2018 Social Drivers of Health (SDoH) 2018 Hepatitis B Vaccines (1 of 3 - 19+ 3-dose series) 2019 Medicare Initial AWV [id number] 11/19/2022 COVID-19 Vaccines (1 - 2024- season) 2025 Influenza Vaccine (#1) 2025 , [...] patient's age to complete this topic Insurance [facility]ORMERLY [facility] UNITED HE[employer] MEDICARE
--- OUTSIDE RECORDS SUMMARY | 2025-10-06 16:09 | XMS_ITS | Encounter Summary ---
Author Organization [facility] Address [address] [place] [address] Care Team Providers Care Health Occupations Teacher Name Role Phone Beverly Veronica MD Primary Care Provider +1- [phone] Reason for Visit * Reason Comments Med Refill Encounter Details Date Type Department Care Team ([facility] st Contact Info) Description 10/04/2025 Refill [facility] Medicine [address] [phone] Beverly Veronica MD [address] [place] [phone] Chronic neck pain; ESRD (end stage renal disease) ([facility]) Social History Tobacco Use Types Packs/Day Years [...] on file Legal Sex Male 8:04 PM LIPSTICK MOLDER Gender Identity Not on file Sexual Orientation Not on file documented as of this encounter Miscellaneous Notes * Telephone Encounter - Maryjane Cabrales RN - 10/05/2025 11:33 AM CST Medication Refill Request Last Fill Date:09/29/25 Recent and Future Visits: Recent Visits Date Type Provider Dept 10/02/25 Appointment Beverly Veronica MD [facility] 07/21/25 Office Visit Beverly Veronica MD [facility] 07/14/25 Office Visit Beverly Veronica MD [facility] 05/29/25 Office Visit Beverly Veronica MD [facility] Showing recent visits within past 540 days with a meds authorizing provider and meeting all other requirements Future Appointments Date Type Provider Dept 12/05/25 Appointment Beverly Veronica MD [facility] Showing future appointments within next 365 days with a meds authorizing provider and meeting all other requirements TICK MOLDER documented in this encounter Plan of Treatment Upcoming Encounters Date Type Department Care Team (Late st Contact Info) Description 12/05/2025 2:40 PM LIPSTICK MOLDER Office Visit [address] [phone] Beverly Veroncia MD [address] [phone] documented as of this encounter Visit Diagnoses Diagnosis Chronic neck pain Cervicalgia ESRD (end stage renal disease) ([facility]) End stage renal disease documented in this encounter Additional Health Concerns Assessment Noted Time PHQ-9 Depression Total Score: 3 05/29/20 25 3:06 PM CDT documented as of this encounter Care Teams Health Occupations Teacher Relationship Specialty Start Date End Date Beverly Veronica MD [address] [place] [phone] PCP - General Family Practice 05/29/25 documented as of this encounter
--- OUTSIDE RECORDS SUMMARY | 2025-10-06 16:09 | XMS_ITS | Encounter Summary ---
Author Organization [facility] Address [address] [place] [address] Care Team Providers Care Livestock Judging Coach Name Role Phone Beverly Veronica MD Primary Care Provider +1- [phone] Reason for Referral * Eval and Treat (Routine) - Closed Specialty Diagnoses / Procedures Referred By Contac t Referred To Contact Pain Management Diagnoses Chronic neck pain ESRD (end stage renal disease) ([facility]) Procedures [place] OFFICE/OUTPATIENT ESTABLISHED MOD MDM 30 MIN [place] OFFICE/OUTPATIENT NEW MODERATE MDM 45 MINUTES Beverly Veronica MD [address] [address] Phone: tel: fax: [facility] [address] [place] [address] Phone: tel: Referral ID Status Reason Start Date Expiration Date Visits Re quested Visits Authorized [id number] Closed 09/28/2025 09/28/2026 1 1 [employer] [employer] Reason for Visit * Reason Onset Date Comments Needs Orders Written Information 09/27/2025 Encounter Details Date Type Department Care Team ([facility] st Contact Info) Description 09/27/2025 Telephone [facility] Medicine [place] [address] [phone] Beverly Veronica MD [address] [phone] Needs Orders Written; Information Social History Tobacco Use Types Packs/Day [...] file Legal Sex Male 8:04 PM DIRECTOR NEW PRODUCT Gender Identity Not on file Sexual Orientation Not on file documented as of this encounter Miscellaneous Notes * Telephone Encounter - Maryjane Cabrales RN - 09/29/2025 10:31 AM CST 09/29/2025 10:31 AM Returned call and spoke with patient. Voiced understanding. Maryjane BELLO [facility] [employer] * Telephone Encounter - Beverly Veronica MD - 09/29/2025 9:09 AM DIRECTOR NEW PRODUCT Sent morphine equivalent in oxycodone and we can discuss nursing home plan Thursday. Thanks! [employer] * Telephone Encounter - Maryjane Cabrales RN - 09/29/2025 8:59 AM CST 09/29/2025 8:59 AM Returned call and spoke with patient. He states that he is open to what ever options you deem are appropriate for his pain. He states that he has been on oxycodone in the past but he did say he generally has to take 2-3 at a time just to get any relief. He took his last morphine yesterday so he is needing something sent in today so he does not go through withdrawals over the weekend. He does havean appointment scheduled with you for Thursday morning so you guys can discuss further. Maryjane RN [employer] * Telephone Encounter - Maryjane Cabrales RN - 09/28/2025 12:52 PM CST 09/28/2025 12:52 PM [facility] and they said they do not take his insurance. He said he had been in so much pain that he had to go to ER and they prescribed morphine 15 mg 1-2 q 6 hours number 90. He said this has worked for his pain and he has been able to go to dialysis. He wants to see what can be done so that he can keep getting the pain meds while he is waiting on a new referral somewhere else. He said without some kind of meds doing any thing and going to dialysis is hard on him. Would you bewilling to get him some meds until the referral can be picked up by someone? Maryjane RN [employer] * Telephone Encounter - Barbara Levine - 09/28/2025 12:36 PM DIRECTOR NEW PRODUCT Copied from [facility] #[id number]. Topic: Patient or Caregiver Communication Request >> Sep 28, 2025 12:36 PM Barbara Mckeon wrote: Caller Name: Vance Sainz Callback Number: [phone] (work) Call Notes: Is the patient reporting any new or worsening symptoms? No Patient needs to report following up on pain medication [facility] [employer] * Telephone Encounter - Niki Quesada - 09/28/2025 11:31 AM CST 09/28/2025 11:32 AM Pt came into clinic requesting a new script for morphine 15 mg that was prescribed by [facility] . Pt takes every 6 yours and 90 pills. PT will call back with the exact dosage. The patient's preferred pharmacy is [facility] - [place], [place] - [address] [facility]. Last appt:07/21/25 Next appt:12/05/2025 Niki [employer] * Telephone Encounter - Eunice Jarrettissa Melissa - 09/27/2025 2:31 PM CST Copied from [facility] #[id number]. Topic: CPA Information Request - Order or Referral Request >> Sep 27, 2025 2:30 PM Yady Parsons wrote: Caller Name: PT Patient/Caregiver Callback Number: Telephone Information: Call Notes: Called asking for a sooner appt then November for his pain medication , and is asking for a call back to schedule sooner [employer] documented in this encounter Plan of Treatment Upcoming Encounters Date Type Department Care Team (Late st Contact Info) Description 12/05/2025 2:40 PM DIRECTOR NEW PRODUCT Office Visit [facility] [address] [phone] Beverly Veronica MD [address] [phone] Scheduled Referrals Name Type Priority Associated Diagnoses Orde r Schedule AMB REFERRAL TO PAIN CLINIC Outpatient Referral Routine Chronic neck pain ESRD (end stage renal disease) ([facility]) Ordered: 09/28/2025 documented as of this encounter Visit Diagnoses Diagnosis Chronic neck pain- Primary Cervicalgia ESRD (end stage renal disease) ([facility]) End stage renal disease documented in this encounter Additional Health Concerns Assessment Noted Time PHQ-9 Depression Total Score: 3 05/29/20 25 3:06 PM CDT documented as of this encounter Care Teams Livestock Judging Coach Relationship Specialty Start Date End Date Beverly Veronica MD [address] [phone] PCP - General Family Practice 05/29/25 documented as of this encounter
--- OUTSIDE RECORDS SUMMARY | 2025-10-06 16:09 | XMS_ITS | Encounter Summary ---
Author Organization [facility] Address [address] [place] [address] Care Team Providers Care Dog Hair Clipper Name Role Phone Beverly Veronica MD Primary Care Provider [phone] Encounter Details Date Type Department Care Team ([facility] Contact Info) Description 10/03/2025 External Device Data ST[facility] ABSTRACTION Provider, [...] on file Legal Sex Male 8:04 PM FIBER OPTIC SPLICER Gender Identity Not on file Sexual Orientation Not on file documented as of this encounter Plan of Treatment Upcoming Encounters Date Type Department Care Team ([facility] Contact Info) Description 12/05/2025 2:40 PM FIBER OPTIC SPLICER Office Visit [facility] [address] [phone] Beverly Veronica MD [address] [place] [phone] documented as of this encounter Visit Diagnoses Not on filedocumented in this encounter Additional Health Concerns Assessment Noted Time PHQ-9 Depression Total Score: 3 05/29/20 25 3:06 PM CDT documented as of this encounter Care Teams Dog Hair Clipper Relationship Specialty Start Date End Date Beverly Veronica MD [address] [place] [phone] PCP - General Family Practice 05/29/25 documented as of this encounter
--- NOTE | 2025-10-06 16:19 | XRR_ITS ---
PROCEDURE INFORMATION: Exam: XR Chest Exam date and time: 10/06/2025 4:35 PM Age: 25 years old Clinical indication: Other: Seizure TECHNIQUE: Imaging protocol: Radiologic exam of the chest. Views: 1 view. COMPARISON: CR XR chest 1V portable [id number] 09/05/2025 11:40 AM FINDINGS: Lungs: Unremarkable. No consolidation. Pleural spaces: Unremarkable. No pleural effusion. No pneumothorax. Heart/Mediastinum: Unremarkable. No cardiomegaly. Bones/joints: Unremarkable. XR/XR chest 1V portable [id number] IMPRESSION: No acute findings.
--- NOTE | 2025-10-06 16:19 | ECG_ITS ---
[facility] Test Date: 2025-10-06 Pat Name: Vance Sainz Department: Room: Gender: Male General Ledger Bookkeeper: : 2000 Requested By: Wade Rice Order Number: [id number] Reading MD: VAIBHAV WARREN Measurements Intervals [place] Rate: 71 P: 76 MO: 140 QRS: -13 QRSD: 100 T: 47 QT: 423 QTc: 461 Interpretive Statements SINUS RHYTHM WITH MARKED SINUS ARRHYTHMIA NONSPECIFIC T-WAVE ABNORMALITY Compared to ECG 09/03/2025 09:56:29 T-wave abnormality now present Intraventricular conduction delay no longer present Electronically Signed On 10-10-2025 12:09:13 OUTPATIENT PHYSICAL THERAPIST by VAIBHAV WARREN [email or web address]
--- NOTE | 2025-10-06 16:19 | PC.NURSE ---
seizure pads placed on bilateral bed rails, suction available at bedside.
[2025-10-06 16:28] LABS: Hematocrit 35.0 % (37-53); Hemoglobin 10.90 g/dL (11.27-16.99); Mean Corpuscular HGB Conc 31.1 g/dL (30-55); Mean Corpuscular Hemoglobin 31.4 pg (27-33); Mean Corpuscular Volume 100.9 fl (82-101); Nucleated Red Blood Cells % 0 %; Platelet Count 275 10^3/cmm (157-399); Red Blood Count 3.47 10^6/uL (3.85-5.65); White Blood Count 6.15 10^3/uL (3.29-11.43)
--- NOTE | 2025-10-06 16:31 | PC.NURSE ---
last received dialysis thursday, but did not stay for a full treatment per [facility]. only received one hour of treatment today.
[2025-10-06 16:40] LABS: ABG PCO2 45.4 mmHg (35-45); ABG PH Result 7.39 (7.35-7.45); Alveolar-Arterial Oxygen Gradi 4.9 mmHg (5-10); Arterial Blood Gas Hematocrit 32.7 % (42-52); Blood Gas Allen Test Pos; Blood Gas Operator Identificat glc; Blood Gas Sample Site Radial, left; Blood Gas Sample Type Arterial; Carboxyhemoglobin 3.6 %THgb (0.4-20.1); Glucose Level-ABG 80.0 mg/dL (70-115); HCO3 ABG 27.7 mmol/L (22-26); Ionized Calcium Level - ABG 1.1 mmol/L (1.1-1.4); Methemoglobin 0.1 % (0.4-1.5); Oxygen Saturation ABG 88.2; PO2 ABG 56.8 mmHg (80.0-100.0); PO2 FiO2 Ratio Arterial Blood 270; Potassium Level - ABG 5.0 mmol/L (3.5-5.0); Sodium Level - ABG 139.0 mmol/L (131-143)
--- NOTE | 2025-10-06 16:47 | ED_ITS ---
HPI - Seizure 2 General: Chief Complaint: Seizure Stated Complaint: possible seizure Time Seen by Provider: 10/06/25 16:04 History of Present Illness: HPI Narrative: 25-year-old male presents to the emergen cy room he has a history of end-stage renal disease. He has a known history of seizure disorder as well. Presents to the emergency room via EMS he had been 1 hour into a dialysis run and had a witnessed seizure had a second witnessed seizure while and route to the emergency room. He is postictal on arrival. He is on valproic acid. He is unable to tell us if he has missed any of his medications recently. Seizure History: Yes Related Data Home Medications ?Medication ?Instructions ?Recorded ?Confirmed hydralazine 100 mg tablet 100 mg PO TID 04/05/2510/07 sumatriptan 20 mg/actuation nasal 20 mg intranasal Q12 H PRN Migraine 04/05/25 10/07/25 spray Headache prednisone 5 mg tablet 5 mg PO DAILY 07/17/2510/07 clonidine HCl 0.2 mg tablet 0.2 mg PO Q8H 10/07/25 oxycodone 10 mg tablet 10 mg PO Q6H PRN Pain 10/07/25 Previous Rx's ?Medication ?Instructions ?Recorded clonazepam 1 mg tablet (Klonopin) 1 mg PO BID PRN anxi ety #10 tabs 01/09/25 acetaminophen 325 mg tablet 650 mg (2 x 325 mg) PO Q6H PRN 06/29/25 Mild/Mod Pain Or Temp >/= 101 #30 tabs divalproex 500 mg tablet,delayed 500 mg PO BID #60 tab s 06/29/25 release sodium zirconium cyclosilicate 5 5 g PO DAILY #11 ea 0 07/12/25 gram oral powder packet (Lokelma) losartan 50 mg tablet 100 mg (2 x 50 mg) PO DAILY 30 08/11/25 days #120 tabs nifedipine 90 mg tablet,extended 90 mg PO DAILY 30 day s #30 tabs 08/11/25 release labetalol 200 mg tablet 400 mg (2 x 200 mg) PO BID # 60 tabs 09/06/25 morphine 15 mg immediate release 15 - 30 mg (1 - 2 x 1 5 mg) PO Q6H 11/19/25 tablet PRN intractable pain #90 tab s pantoprazole 20 mg tablet,delayed 20 mg PO DAILY #60 t abs 10/08/25 release Allergies Allergy/AdvReac Type Severity Reaction Status Date / Time sertraline (From Zoloft) Allergy Unknown Verified 10/06/25 16:18 Review of Systems 2 General: Reports: ROS unobtainable due to mental status PFSH ED 2 PFSH: Medical History Anemia Renal transplant failure and rejection Kidney transplant failure Noncompliance with renal dialysis Adrenal insufficiency Hypoglycemia CKD (chronic kidney disease) stage V requiring chronic dialysis Generalized anxiety disorder Other stimulant dependence, in remission Problems related to lack of adequate sleep Substance abuse Depression Anxiety Surgical History Kidney transplant recipient Social History Smoking and tobacco/nicotine status: tobacco/nicotine user, details unknown e- cigarettes E-Cigarette Details: vaporizer device and with nicotine E-cig/vape details: 6 mg and smokeless tobacco Smokeless tobacco user: chewing tobacco Smokeless tobacco details: 1 can/3 days. Quit status (tobacco/nicotine): has tried quititng Number of times tried to quit tobacco: 4 Second hand smoke exposure: No Alcohol intake: never Substance/Drug Use: current Substance/Drug use frequency: Special occassions/opportunity only Additional social history: Patient uses marijuana 1 g every other day he has remote history of some meth use. He reports chewing tobacco and using nicotine pouches but denies smoking cigarettes. He denies suicidal ideation. Patient is companied by his girlfriend and his CODE STATUS is always been full code confirmed with the patient on 06/05/2025 that he wants full CODE STATUS by Daron Ayala MD Patient admits to THC use Physical Exam 2 Const: ORIENTATION/CONSCIOUSNESS: Yes awake HENMT: COMMON NORMALS: normocephalic, atraumatic and hearing grossly normal bilaterally HEAD & SCALP: normocephalic and atraumatic Resp: COMMON NORMALS: normal respiratory effort, No retractions, No use of accessory muscles and clear to auscultation bilaterally AUSCULTATION: clear to auscultation bilaterally Cardio: COMMON NORMALS: regular rate, regular rhythm and No murmurs present (Cardio) RATE: regular rate RHYTHM: regular rhythm GI: COMMON NORMALS: Soft to palpation and No hepatosplenomegaly present A USCULTATION: Yes normoactive bowel sounds PALPATION: Yes Soft to palpation, No Tenderness to palpation present (GI), No Guarding due to palpation present (GI) and Yes No hepatosplenomegaly present Extremity: COMMON NORMALS: normal to inspection, capillary refill normal, no clubbing, cyanosis or edema, no calf tenderness and no pedal edema Skin: COMMON NORMALS: no rashes or lesions noted GENERAL SKIN EXAM: no rashes or lesions noted Course 2 Vital Signs: Vital signs: Vital Signs Temperature 97.8 F 10/08/25 15:46 Pulse Rate 80 10/08/25 15:46 Respiratory Rate 20 H 10/08/25 15:46 Blood Pressure 168/94 10/08/25 15:46 Pulse Oximetry 99 10/08/25 15:46 Oxygen Delivery Me thod Nasal Cannula 10/08/25 14:00 Oxygen Flow Rate 5 10/08/25 14:00 MDM - Seizure MDM Narrative Medical decision making narrative: Medical decision making Social determinants: Patient poorly compliant with medical therapies I reviewed the patient's medical record. I reviewed the patient's current home meds. Alternate historians: Mother Differential diagnosis: Breakthrough seizures, noncompliance, metabolic encephalopathy Lab Review: CBC white count 6.15 hemoglobin 10.9 patient is chronically anemic hematocrit 35 platelets 275. Blood gas pH 739 pCO2 45 pO2 56.8 bicarb 27 7 this was done immediately after patient had had a seizure. Chemistries creatinine 7.8 potassium 5.3 anion gap 29.3 BUN 37 lactic acid 10.3 magnesium 2.9 liver functions are normal. Valproic acid level 2.8 Imaging:Chest x-ray unremarkable no acute infiltrates no effusions no increased pulmonary vasculature Assessment of risk Level of risk: High Hospitalization considerations: Seizures due to noncompliance with medications. Reexamination: Patient postictal. Assessment and plan: Patient had several breakthrough seizures he only had 1 run of dialysis this week he missed 1 and then only had a very short run of dialysis today. His valproic acid level was extremely low he is not been taking it obviously. I think this is the cause of his breakthrough seizures he had 2 seizures to arrival 1 seizure after arrival he was given valproic acid IV as well as Keppra. He has also been given Ativan for his seizures. He is postictal at this time on 2 L by nasal cannula and is satting well. At this point I do not believe he needs to be intubated however if he has further seizures he may require intubation and has been monitored in the ICU. Discussed with hospitalist orders written we have also consulted nephrology. He is being given IV fluids he had very mild hyperkalemia. Discussed with nephrology given this was drawn immediately after his seizure and he is getting fluids which did not start any medications for hyperkalemia at this time. Patient will likely require dialysis in the morning. Orders written for admission to ICU Lab Data 10/08/25 03:53 10/08/25 03:53 Labs: Radiology Impressions Chest X-Ray 10/06/25 16:19 IMPRESSION: No acute findings. Head CT 10/07/25 08:00 IMPRESSION: 1. No CT evidence of acute intracranial pathology. 2. Additional findings, as above. Laboratory Results WBC 6.15 10^3/uL (3.29-11.43) 10/06/25 16:20 RBC 3.47 10^6/uL (3.85-5.65) L 10/06/25 16:20 Hgb 10.90 g/dL (11.27-16.99) L 10/06/25 16:20 Hct 35.0 % (37-53) L 10/06/25 16:20 MCV 100.9 fl (82-101) 10/06/25 16:20 MCH 31.4 pg (27-33) 10/06/25 16:20 MCHC 31.1 g/dL (30-55) 10/06/25 16:20 RDW 19.7 % (12.1-15.1) H 10/06/25 16:20 Plt Count 275 10^3/cmm (157-399) 10/06/25 16:20 MPV 10.5 fL (7.4-10.4) H 10/06/25 16:20 Neut % (Auto) 61.1 % 10/06/25 16:20 Lymph % (Auto) 16.4 % 10/06/25 16:20 [place] % (Auto) 13.0 % 10/06/25 16:20 Eos % (Auto) 7.5 % 10/06/25 16:20 Baso % (Auto) 1.3 % 10/06/25 16:20 Neut # (Auto) 3.76 10^3/uL (1.8-7.7) 10/06/25 16:20 Lymph # (Auto) 1.0 10^3/uL (0.8-4.8) 10/06/25 16:20 [place] # (Auto) 0.8 10^3/uL (0.2-0.9) 10/06/25 16:20 Eos # (Auto) 0.5 10^3/uL (0.0-0.8) 10/06/25 16:20 Baso # (Auto) 0.1 10^3/uL (0.0-0.1) 10/06/25 16:20 Nucleated RBC % (auto) 0 % 10/06/25 16:20 Nucleated RBCs # 0.0 /100WBC 10/06/25 16:20 Specimen Type Arterial 10/06/25 16:28 Sample Site Radial, left 10/06/25 16:28 ABG pH 7.39 (7.35-7.45) 10/06/25 16:28 ABG pCO2 45.4 mmHg (35-45) H 10/06/25 16:28 ABG pO2 56.8 mmHg (80.0-100.0) L 10/06/25 16:28 ABG PO2/FiO2 Ratio 270 10/06/25 16:28 ABG HCO3 27.7 mmol/L (22-26) H 10/06/25 16:28 ABG O2 Saturation 88.2 10/06/25 16:28 ABG Base Excess 2.3 mmol/L (-2.0-2.0) H 10/06/25 16:28 Paul Test Pos 10/06/25 16:28 A-a O2 Gradient 4.9 mmHg (5-10) L 10/06/25 16:28 Hematocrit 32.7 % (42-52) L 10/06/25 16:28 Hgb O2 Saturation 84.9 % (95-100) L 10/06/25 16:28 Carboxyhemoglobin 3.6 %THgb (0.4-20.1) 10/06/25 16:28 Methemoglobin 0.1 % (0.4-1.5) L 10/06/25 16:28 Total Hemoglobin 10.7 g/dL (14-18) L 10/06/25 16:28 Sodium 139.0 mmol/L (131-143) 10/06/25 16:28 Potassium 5.0 mmol/L (3.5-5.0) 10/06/25 16:28 Glucose 80.0 mg/dL (70-115) 10/06/25 16:28 Ionized Calcium 1.1 mmol/L (1.1-1.4) 10/06/25 16:28 O2 Delivery Device Room air 10/06/25 16:28 FiO2 21.0 % 10/06/25 16:28 Counter Help ID glc 10/06/25 16:28 Sodium 137 mmol/L (136-145) 10/06/25 16:20 Potassium 5.3 mmol/L (3.5-5.1) H 10/06/25 16:20 Chloride 90 mmol/L (98-107) L 10/06/25 16:20 Carbon Dioxide 23 mmol/L (22-29) 10/06/25 16:20 Anion Gap 29.3 (5-19) H 10/06/25 16:20 BUN 37 mg/dL (6-20) H 10/06/25 16:20 Creatinine 7.8 mg/dL (0.7-1.2) H* 10/06/25 16:20 GFR Calculation 8.5 mL/min (90-130) L 10/06/25 16:20 Glucose 87 mg/dL (65-115) 10/06/25 16:20 Calculated Osmolality 292 mOsm/kg (285-295) 10/06/25 16:20 Lactic Acid 10.3 mmol/L (0.5-2.2) H* 10/06/25 16:20 Calcium 9.5 mg/dL (8.5-10.5) 10/06/25 16:20 Magnesium 2.9 mg/dL (1.7-2.3) H 10/06/25 16:20 Total Bilirubin 0.4 mg/dL (0.15-1.2) 10/06/25 16:20 AST 19 U/L (0-40) 10/06/25 16:20 ALT < 5 U/L (0-41) 10/06/25 16:20 Alkaline Phosphatase 91 U/L (40-130) 10/06/25 16:20 Total Protein 6.3 g/dL (6.6-8.7) L 10/06/25 16:20 Albumin 4.8 g/dL (3.5-5.2) 10/06/25 16:20 Globulin 1.5 g/dL (1.3-4.6) 10/06/25 16:20 Valproic Acid 2.8 ug/mL (50-100) L 10/06/25 16:20 All radiology interpretation(s) finalized by discharge EKG Data EKG 1: Attestation: I personally reviewed and interpreted this EKG as follows: Interpretation: EKG 10/06/1612 normal sinus arrhythmia with occasional sinus pauses. Rate of 71 NH interval 140 QTc 461 no peaked T waves noted. No acute ST changes Compared with EKG 09/03/2025 T waves markedly less prominent on today's EKG sinus arrhythmia has replaced sinus rhythm Critical Care Time 2 Critical Care Time: Critical Care Time: Yes Total Critical Care Time: 40 Attestation: The high probability of a clinically significant, sudden or life threatening deterioration of the patient's cardiovascular metabolic and neurologic system(s) required my full and direct attention, intervention and personal management. The critical care time is as shown. This time is in addition to time spent performing any reported procedures but includes the following: [x] Data and vital sign review and interpretation [x] Patient assessment, examination and intervention [x] Documentation [x] Medication orders and management Discharge Plan Discharge Patient Disposition: Admitted As Inpatient Admit Provider: Lavern Osuna Clinical Impression: Generalized seizure, ESRD on hemodialysis, Hyperkalemia Hypertension Qualifiers: Hypertension type: renovascular hypertension Qualified Code(s): I15.0 - Renovascular hypertension Condition: Stable Coding Level of Care Code ED Dishcloth Folder for Loida Menon
[2025-10-06 16:52] LABS: Alanine Aminotransferase < 5 U/L (0-41); Albumin Level 4.8 g/dL (3.5-5.2); Alkaline Phosphatase 91 U/L (40-130); Anion Gap 29.3 (5-19); Aspartate Amino Transferase 19 U/L (0-40); Blood Urea Nitrogen 37 mg/dL (6-20); Calcium 9.5 mg/dL (8.5-10.5); Carbon Dioxide 23 mmol/L (22-29); Chloride 90 mmol/L (98-107); Globulin 1.5 g/dL (1.3-4.6); Glucose 87 mg/dL (65-115); Magnesium 2.9 mg/dL (1.7-2.3); Osmolality Calculated 292 mOsm/kg (285-295); Potassium 5.3 mmol/L (3.5-5.1); Sodium 137 mmol/L (136-145); Total Protein 6.3 g/dL (6.6-8.7)
[2025-10-06] MEDS: valproic acid inj 500 MG in sodium chloride 0.9% (plus) 50 ML 55 MG IV (17:40)
[2025-10-06] MEDS: LORazepam 2 mg/mL INJ 1 mL (17:40)
[2025-10-06] MEDS: hyDRALAzine 20 mg/mL INJ 1 mL 10 MG IVP (17:40)
[2025-10-06] MEDS: labetalol 5 mg/mL SDV 20mL 10 MG IVP (17:40)
--- NOTE | 2025-10-06 17:41 | PC.NURSE ---
pt had a seizure approx @1725, lasting approx 20sec. ED provider at bedside, verbal orders for IV 2mg ativan. suction available. pt placed in bilateral soft upper extremity restraints d/t postictal phase, ED provider at bedside at this time. pt intermittently alert.
[2025-10-06] MEDS: levETIRAcetam 2,000 MG/200 ML PREMIX 400 MG IV (18:13)
--- NOTE | 2025-10-06 19:30 | P.HP_ITS ---
Providers/Chief Complaint 2 Admitting Physician: Lavern Osuna MD Primary Care Provider: Beverly Veronica MD Chief Complaint: possible seizure History of Present Illness As per the previous retrospective notes and the patient's girlfriend was standing nearby since the patient lives with her: Patient has been given lorazepam and was sleeping therefore adequate history was not taken from the patient. Vance Sainz is a 25 year old male with past medical history of multiple admissions secondary to noncompliance to his hemodialysis and medications and also history of polysubstance use disorder, presented to ER via EMS as he was having dialysis for an hour and had a witnessed seizures, the second seizure happened while he was coming through EMS and route. He was postictal on arrival. The patient girlfriend further explained that he has been feeling unwell from the last 3 to 4 days and was having fevers and chills. He has been laying in the bed from the last 3 to 4 days. But no shortness of breath lower leg swellings or chest pain or chest pressure complaints were endorsed to the girlfriend. She further mentioned that on and off he misses his medications and is noncompliant but from the last few days he has been compliant to his hemodialysis sessions. He further mentioned that he was also having on and off jerking movements from the last 3 to 4 days but was not much postictal, however she is unable to further elaborate on this query. Patient admitted in ER as a case of hypertensive urgency which could be triggered due to seizures requiring ICU monitoring and further management Review of Systems 2 General: Reports: ROS unobtainable due to mental status Medications/Allergies Home Medications ?Medication ?Instructions ?Recorded ?Confirmed ?Last Taken ?Type clonazepam 1 mg tablet (Klonopin) 1 mg PO BID PRN anxi ety #10 tabs 01/09/25 09/03/25 02/12/25 09:00 Rx hydralazine 100 mg tablet 100 mg PO TID 04/05/2509/03 Unknown History sumatriptan 20 mg/actuation nasal 20 mg intranasal Q12 H PRN Migraine 04/05/25 09/03/25 Unknown History spray Headache fluoxetine 10 mg capsule 10 mg PO DAILY 06/28/2508/1907/09/25 History acetaminophen 325 mg tablet 650 mg (2 x 325 mg) PO Q6H PRN 06/29/25 09/03/25 07/09/25 Rx Mild/Mod Pain Or Temp >/= 101 #30 tabs clonidine HCl 0.1 mg tablet 0.2 mg (2 x 0.1 mg) PO TID #90 tabs 06/29/25 09/03/25 07/09/25 Rx divalproex 500 mg tablet,delayed 500 mg PO BID #60 tab s 06/29/25 09/03/25 07/09/25 Rx release sodium zirconium cyclosilicate 5 5 g PO DAILY #11 ea 0 07/12/25 09/03/25 Unknown Rx gram oral powder packet (Lokelma) prednisone 5 mg tablet 5 mg PO DAILY 07/17/2509/03 Unknown History sevelamer carbonate 800 mg tablet See Rx Instructions .Route .COMPLEX 07/17/25 09/03/25 Unknown History losartan 50 mg tablet 100 mg (2 x 50 mg) PO DAILY 30 08/11/25 09/03/25 Unknown Rx days #120 tabs nifedipine 90 mg tablet,extended 90 mg PO DAILY 30 day s #30 tabs 08/11/25 09/03/25 Unknown Rx release labetalol 200 mg tablet 400 mg (2 x 200 mg) PO BID # 60 tabs 09/06/25 Unknown Rx morphine 15 mg immediate release 15 - 30 mg (1 - 2 x 1 5 mg) PO Q6H 09/06/25 Unknown Rx tablet PRN intractable pain #90 tab s Allergies Allergy/AdvReac Type Severity Reaction Status Date / Time sertraline (From Zoloft) Allergy Unknown Verified 10/06/25 16:18 PFSH Acute 2 PFSH: Medical History (Updated 10/06/25 @ 21:26 by Lavern Osuna MD) Anemia Renal transplant failure and rejection Kidney transplant failure Noncompliance with renal dialysis Adrenal insufficiency Hypoglycemia CKD (chronic kidney disease) stage V requiring chronic dialysis Generalized anxiety disorder Other stimulant dependence, in remission Problems related to lack of adequate sleep Substance abuse Depression Anxiety Surgical History Kidney transplant recipient Social History Smoking and tobacco/nicotine status: tobacco/nicotine user, details unknown e- cigarettes E-Cigarette Details: vaporizer device and with nicotine E-cig/vape details: 6 mg and smokeless tobacco Smokeless tobacco user: chewing tobacco Smokeless tobacco details: 1 can/3 days. Quit status (tobacco/nicotine): has tried quititng Number of times tried to quit tobacco: 4 Second hand smoke exposure: No Alcohol intake: never Substance/Drug Use: current Substance/Drug use frequency: Special occassions/opportunity only Additional social history: Patient uses marijuana 1 g every other day he has remote history of some meth use. He reports chewing tobacco and using nicotine pouches but denies smoking cigarettes. He denies suicidal ideation. Patient is companied by his girlfriend and his CODE STATUS is always been full code confirmed with the patient on 06/05/2025 that he wants full CODE STATUS by Daron Ayala MD Patient admits to THC use Vitals/I&O/Wt Last Vital Signs Temp 97.8 F 10/06/25 16:15 Pulse 86 10/06/25 19:21 Resp 16 10/06/25 19:21 BP 171/125 10/06/25 19:21 Pulse Ox 97 10/06/25 19:21 O2 Del Method Room Air 10/06/25 19:21 10/06/25 10/06/25 10/06/25 06:59 14:59 22:59 Intake Total 55 / 55 Balance 55 / 55 Weight last 48 hrs Weight 52.254 kg Physical Exam 2 Narrative: General: Disoriented and was sleeping, arousable but not interactive, patient looks euvolemic HEENT: Normocephalic, atraumatic, grossly unremarkable exam Cardio: Sinus tachycardia, normal S1-S2 without murmurs and rubs Respiratory: Bilateral equal air entry without any wheezes or stridor, no crackles observed GI: Abdomen soft, nontender, nondistended, normoactive bowel sounds present all 4 quadrants, Neuro: Unable to assess since the patient was sleeping Behavior can be uncooperative Extremities: Adequate palpable pulses, patient looks pale but no cyanosis and no decreased capillary refill, adequate palpable pulses present Data 10/06/25 16:20 10/06/25 16:20 A&P Assessment and plan 1. Sepsis: Collateral history from the girlfriend suspected for sepsis considering having high fevers and chills and tiredness from the last 3 to 4 days although no wbcs, and pt is immunocompromised therefore given the benefit of doubt to work for infectious cause as well. Stat blood cultures and urine cultures Patient did not receive sepsis bolus since the patient is hemodialysis dependent end-stage renal disease on the blood pressure was on the higher side Lactate series Patient has adequate capillary refill Acute and cephalopathy secondary to hypertensive urgency versus emergency Maintain MAP above 65 Hydration based on the patient volume status Telemetry Maintain intake and output Daily blood work and electrolytes monitoring with correction accordingly 2. Hypertensive emergency: Patient received IV labetalol hydralazine in the ER Patient has history of noncompliance with medications Currently the blood pressure is in 170s systolic Nephrology consultation has been done by the ER and consider hemodialysis session since the patient did not complete his hemodialysis session UTOX Resume home antihypertensive medications The patient is not awake or unable to take orally then consider Cardizem drip with slow titration Slowly titrate down the blood pressure and avoid aggressive therapy 3. Hyperkalemia: patient drowsy unable to take oral kexylate, insulin 5 units with DW and to follow tomorrow nephro onboard and to follow the plan of care. HD session to consider 4. Generalized seizure: Gentle hydration with Ringer lactate 75 mL/h for 10 hours since the patient has high lactate secondary to seizures Resume home medications for antiseizure's IV lorazepam as needed for seizures If the patient has continuous or subsequent seizure episode, low threshold for intubation Check patient pulse ox CT head urgent Monitor neurochecks Telemetry 5. Missed dialysis: Nephrology consulted and follow the plan of recommendation To consider hemodialysis as the patient had missed the session today 6. Congestive heart failure: currently euvolemic cont to monitor EF: 62% on 08/12, grade 1/4 diastolic dysfunction monitor hemodynamics telemetry 7. Medical non-compliance: By the patient is stable then to emphasize on medication compliance and to legal counsel about his medical condition with all the risk and benefits 8. Substance abuse: UTOX Once the patient is stable and alert then to legal counsel about substance abuse abstinence and inquire PDMP PDMP Reviewed: Not Reviewed Attestations 2 Medical Necessity Statement*: Patient will stay more than 2 midnights in ICU requiring ICU monitoring secondary to multiple severe episodes, low threshold for intubation, hemodialysis dependent Time Spent in Patient Care: Greater than 35 minutes (>than 50% of time spent in counselling and/or direct pt care on unit) . Critical Care Time: The high probability of a clinically significant, sudden or life threatening deterioration, as referenced in this documentation, required my full and direct attention, intervention and personal management. The critical care time shown is in addition to time spent performing any reported separately billable procedures and includes the following: [x] Data and vital sign review and interpretation [x ] Patient assessment, examination and intervention [x] Medication orders and management [x] Patient/Family updates as able [x] Care Coordination and Documentation. Critical Care Time (min): 40 Other Attestations: I was only able to discuss his current clinical condition and acuity of his critical condition with the girlfriend. DPOA are the foster parents who are not around. The care has been delivered in the best interest of the patient based on the patient current CODE STATUS. I have reviewed all the images/labs/investigations independently. Management as per internal based on the recommendation and guidelines and patient's current clinical condition. Coding Level of Care Code Critical Care >/= 30 minutes Diagnoses Sepsis A41.9 Hypertensive emergency I16.1 Hyperkalemia E87.5 Generalized seizure R56.9 Missed dialysis Congestive heart failure I50.9 Medical non-compliance Z91.199 Substance abuse F19.10
[2025-10-06 20:20] LABS: Lactic Sepsis W/Reflex 10.3 mmol/L (0.5-2.2)
[2025-10-06 20:25] LABS: Reflex Lactate Order REFLEX LACTIC ORDERD
[2025-10-06] MEDS: piperacillin-tazobactam 3.375 GM in sodium chloride 0.9% (plus) 50 ML IV (20:45)
[2025-10-06] MEDS: heparin 5,000 unit/mL INJ 1 mL 5000 UNIT SUBCUT (20:46)
[2025-10-06 20:48] LABS: Lactic Acid level (Lactate) 1.6 mmol/L (0.5-2.2)
--- NOTE | 2025-10-06 20:56 | PC.NURSE ---
Rcd pt from ER. Pt oriented to person, place, and year, but states it is November. Pt repeatedly stating he is in pain all over and in my neck . Pt consistently rating pain 8-9/10. Pt unable to swallow or suck from a straw.
[2025-10-06] MEDS: hyDRALAzine 20 mg/mL INJ 1 mL IVP (21:27)
[2025-10-06] MEDS: dexmedeTOMIDine 0.9 % NaCL 400 MCG/100 ML PREMIX IV (21:27)
[2025-10-07] VITALS (103 sets, daily range): BP systolic 136–216; BP diastolic 77–150; PULSE 57–100; RESP 8–32; TEMP 36.6–37.9; O2SAT 90–100
[2025-10-07] MEDS: morphine 4 mg/mL SDV 1 mL IVP ×3 (00:27→21:35)
[2025-10-07] MEDS: nitroglycerin 1 gm/inch oint Pkt 1.5 INCH TOPICAL ×2 (01:15→07:15)
[2025-10-07] MEDS: LORazepam 2 mg/mL INJ 1 mL 1 MG IVP ×2 (02:47→10:16)
--- NOTE | 2025-10-07 04:10 | PC.NURSE ---
Pt continued to be hypertensive. Dr. Ayala repeatedly notified and new orders given (see MAR). Pt crying, yelling out in pain stating things such as you don't understand , help me , I hurt , I am so sick .
[2025-10-07] MEDS: pantoprazole 40 mg SDV IVP (04:17)
[2025-10-07] MEDS: labetalol 5 mg/mL SDV 20mL 40 MG IVP ×4 (04:17→11:36)
[2025-10-07 04:43] LABS: Hematocrit 35.5 % (37-53); Hemoglobin 11.20 g/dL (11.27-16.99); Mean Corpuscular HGB Conc 31.5 g/dL (30-55); Mean Corpuscular Hemoglobin 31.8 pg (27-33); Mean Corpuscular Volume 100.9 fl (82-101); Nucleated Red Blood Cells % 0 %; Platelet Count 265 10^3/cmm (157-399); Red Blood Count 3.52 10^6/uL (3.85-5.65); White Blood Count 8.08 10^3/uL (3.29-11.43)
[2025-10-07 04:59] LABS: Alanine Aminotransferase < 5 U/L (0-41); Albumin Level 4.1 g/dL (3.5-5.2); Alkaline Phosphatase 85 U/L (40-130); Anion Gap 22.6 (5-19); Aspartate Amino Transferase 16 U/L (0-40); Blood Urea Nitrogen 45 mg/dL (6-20); Calcium 9.3 mg/dL (8.5-10.5); Carbon Dioxide 25 mmol/L (22-29); Chloride 93 mmol/L (98-107); Globulin 1.8 g/dL (1.3-4.6); Glucose 93 mg/dL (65-115); Osmolality Calculated 289 mOsm/kg (285-295); Sodium 134 mmol/L (136-145); Total Protein 5.9 g/dL (6.6-8.7)
[2025-10-07 05:15] LABS: Potassium 6.6 mmol/L (3.5-5.1)
[2025-10-07] MEDS: divalproex DR 500 mg Tablet PO ×2 (05:53→16:55)
[2025-10-07] MEDS: insulin regular-human 100 units/1 mL 10 UNIT IVP (06:10)
[2025-10-07] MEDS: ondansetron 2 mg/ML SDV 2 mL 4 MG IVP (06:10)
[2025-10-07] MEDS: HYDROcodone-acetaminophen 5-325 mg Tablet 1 TAB PO ×4 (07:15→19:20)
[2025-10-07] MEDS: heparin 5,000 unit/mL INJ 1 mL 5000 UNIT SUBCUT (07:16)
--- NOTE | 2025-10-07 07:31 | PM.CONSULT ---
Providers/Reason For Consult Consulting Physician/Specialty*: kommana/nephrology Reason for Consult*: ESRD Attending Physician: Lavern Osuna MD Primary Care Provider: Beverly Veronica MD History of Present Illness History of Present Illness Vance Sainz is a 25 year old male With past medical history of end-stage renal disease on dialysis per TTS schedule, polysubstance abuse, multiple prior admissions for noncompliance with hemodialysis and recurrent hyperkalemia, Presented to the emergency department after patient had a witnessed seizure while he was on dialysis. Dialysis was stopped and was sent to the emergency department. Patient had another witnessed seizure in the emergency department. Lab data reviewed potassium was 5.3. Patient admitted to ICU repeat potassium this morning is 6.6.. Review of Systems Narrative: negative Medications/Allergies Home Medications ?Medication ?Instructions ?Recorded ?Confirmed ?Last Taken ?Type clonazepam 1 mg tablet (Klonopin) 1 mg PO BID PRN anxiety #10 tabs 01/09/25 09/03/25 02/12/25 09:00 Rx hydralazine 100 mg tablet 100 mg PO TID 04/05/25 09/03/25 Unknown History sumatriptan 20 mg/actuation nasal 20 mg intranasal Q12H PRN Migraine 04/05/25 09/03/25 Unknown History spray Headache fluoxetine 10 mg capsule 10 mg PO DAILY 06/28/25 09/03/25 07/09/25 History acetaminophen 325 mg tablet 650 mg (2 x 325 mg) PO Q6H PRN 06/29/25 09/03/25 07/09/25 Rx Mild/Mod Pain Or Temp >/= 101 #30 tabs clonidine HCl 0.1 mg tablet 0.2 mg (2 x 0.1 mg) PO TID #90 tabs 06/29/25 09/03/25 07/09/25 Rx divalproex 500 mg tablet,delayed 500 mg PO BID #60 tabs 06/29/25 09/03/25 07/09/25 Rx release sodium zirconium cyclosilicate 5 5 g PO DAILY #11 ea 07/12/25 09/03/25 Unknown Rx gram oral powder packet (Lokelma) prednisone 5 mg tablet 5 mg PO DAILY 07/17/25 09/03/25 Unknown History sevelamer carbonate 800 mg tablet See Rx Instructions .Route .COMPLEX 07/17/25 09/03/25 Unknown History losartan 50 mg tablet 100 mg (2 x 50 mg) PO DAILY 30 08/11/25 09/03/25 Unknown Rx days #120 tabs nifedipine 90 mg tablet,extended 90 mg PO DAILY 30 days #30 tabs 08/11/25 09/03/25 Unknown Rx release labetalol 200 mg tablet 400 mg (2 x 200 mg) PO BID #60 tabs 09/06/25 Unknown Rx morphine 15 mg immediate release 15 - 30 mg (1 - 2 x 15 mg) PO Q6H 09/06/25 Unknown Rx tablet PRN intractable pain #90 tabs Allergies Allergy/AdvReac Type Severity Reaction Status Date / Time sertraline (From [employer]) Allergy Unknown Verified 10/06/25 16:18 Current Medications Generic Name Dose Route Start Last Admin Trade Name Freq PRN Reason Stop Dose Admin Hydrocodone Bitart/Acetaminophen 1 tab 10/06/25 19:30 10/07/25 07:15 Hydrocodone-Acetaminophen 5-325 Mg Tablet PO 1 tab Q4H OMAR Administration Clonidine HCl 0.2 mg 10/06/25 21:00 10/07/25 05:53 Clonidine 0.1 Mg Tablet PO 0.2 mg TID OMAR Administration Divalproex Sodium 500 mg 10/07/25 05:00 10/07/25 05:[address] 500 Mg Tablet PO 500 mg BID OMAR Administration Fluoxetine HCl 10 mg 10/07/25 05:00 10/07/25 05:39 Fluoxetine 10 Mg Capsule PO Not Given DAILY [facility] Heparin Sodium (Porcine) 5,000 unit 10/06/25 19:30 10/07/25 07:16 Heparin 5,000 Unit/Ml Inj 1 Ml SUBCUT 5,000 unit Q12H OMAR Administration Hydralazine HCl 100 mg 10/06/25 21:00 10/07/25 05:53 Hydralazine 50 Mg Tablet PO 100 mg TID OMAR Administration Hydralazine HCl 20 mg 10/06/25 21:16 10/06/25 21:27 Hydralazine 20 Mg/Ml Inj 1 Ml IVP 20 mg Q4H PRN Administration HYPERTENSION Piperacillin Sod/Tazobactam 50 mls @ 12.5 mls/hr 10/06/25 20:00 10/07/25 00:19 Sod 3.375 gm/ Sodium Chloride IV Infused Q12H OMAR Infusion Protocol Sodium Chloride 1,000 mls @ 100 mls/hr 10/06/25 19:53 10/07/25 06:01 Sodium Chloride 0.9% IV Not Given .Q10H OMAR Dexmedetomidine/Sodium Chloride 400 mcg in 100 mls @ 0 mls/hr 10/06/25 21:15 10/07/25 04:00 Precedex IV 0.4 mcg/kg/hr .Q0M OMAR 4.9 mls/hr Protocol Titration Per Protocol Dextrose 125 mls @ 750 mls/hr 10/07/25 05:37 10/07/25 06:11 D10w IV 750 mls/hr PRN PRN Administration HYPOGLYCEMIA Labetalol HCl 400 mg 10/07/25 05:00 10/07/25 05:39 Labetalol 200 Mg Tablet PO Not Given BID OMAR Labetalol HCl 40 mg 10/07/25 00:00 10/07/25 04:17 Labetalol 5 Mg/Ml Sdv 20ml IVP 40 mg Q4H OMAR Administration Lorazepam 1 mg 10/07/25 02:37 10/07/25 02:47 Lorazepam 2 Mg/Ml Inj 1 Ml IVP 1 mg Q4H PRN Administration ANXIETY Losartan Potassium 100 mg 10/07/25 05:00 10/07/25 05:53 Losartan 50 Mg Tablet PO 100 mg DAILY OMAR Administration Morphine Sulfate 15 mg 10/06/25 19:53 10/07/25 06:30 Morphine Ir 15 Mg Tablet PO 15 mg Q6H PRN Administration intractable pain Morphine Sulfate 4 mg 10/07/25 00:14 10/07/25 05:08 Morphine 4 Mg/Ml Sdv 1 Ml IVP 4 mg Q2H PRN Administration SEVERE PAIN Nitroglycerin 1.5 inch 10/07/25 01:15 10/07/25 07:15 Nitroglycerin 1 Gm/Inch Oint Pkt TOPICAL 1.5 inch Q6H OMAR Administration Pantoprazole Sodium 40 mg 10/07/25 05:00 10/07/25 04:17 Pantoprazole 40 Mg Sdv IVP 40 mg DAILY OMAR Administration Senna 17.2 mg 10/06/25 21:00 10/06/25 20:51 Sennosides 8.6 Mg Tablet PO Not Given BEDTIME OMAR Sevelamer Carbonate 800 mg 10/07/25 05:00 10/07/25 05:52 Sevelamer 800 Mg Tablet PO 800 mg DAILY OMAR Administration PFSH Acute PFSH: Medical History (Updated 10/06/25 @ 21:26 by Lavern Osuna MD) Anemia Renal transplant failure and rejection Kidney transplant failure Noncompliance with renal dialysis Adrenal insufficiency Hypoglycemia CKD (chronic kidney disease) stage V requiring chronic dialysis Generalized anxiety disorder Other stimulant dependence, in remission Problems related to lack of adequate sleep Substance abuse Depression Anxiety Surgical History Kidney transplant recipient Social History Smoking and tobacco/nicotine status: tobacco/nicotine user, details unknown e-cigarettes E-Cigarette Details: vaporizer device and with nicotine E-cig/vape details: 6 mg and smokeless tobacco Smokeless tobacco user: chewing tobacco Smokeless tobacco details: 1 can/3 days. Quit status (tobacco/nicotine): has tried quititng Number of times tried to quit tobacco: 4 Second hand smoke exposure: No Alcohol intake: never Substance/Drug Use: current Substance/Drug use frequency: Special occassions/opportunity only Additional social history: Patient uses marijuana 1 g every other day he has remote history of some meth use. He reports chewing tobacco and using nicotine pouches but denies smoking cigarettes. He denies suicidal ideation. Patient is companied by his girlfriend and his CODE STATUS is always been full code confirmed with the patient on 06/05/2025 that he wants full CODE STATUS by Daron Ayala MD Patient admits to THC use Vitals/I&O/Wt Last Vital Signs Temp 97.8 F 10/06/25 16:15 Pulse 73 10/07/25 07:15 Resp 20 H 10/07/25 06:30 BP 177/120 10/07/25 07:15 Pulse Ox 100 10/07/25 05:00 O2 Del Method Room Air 10/06/25 20:36 10/06/25 10/07/25 10/07/25 22:59 06:59 14:59 Intake Total 260.376 / 260.376 101.441 / 361.817 Balance 260.376 / 260.376 101.441 / 361.817 Weight last 48 hrs Weight 49 kg Weight 52.254 kg Physical Exam Narrative: Patient is lethargic, no acute distress No JVD PERRLA S1-S2 regular rate and rhythm Lungs clear bilaterally Abdomen soft nontender Extremities no pedal edema Skin no rash Data 10/07/25 03:48 10/07/25 03:48 Micro: Microbiology 10/06/25 19:57 Blood Culture - Preliminary Blood SPECIMEN COLLECTED 10/06/25 19:42 Blood Culture - Preliminary Blood SPECIMEN COLLECTED A&P Assessment and plan 1. Hyperkalemia: 1. End-stage renal disease: On HD per TTS schedule, hemodialysis today on a low K dialysis today due to hyperkalemia. Ultrafiltration as tolerated 2. Hyperkalemia: Low potassium diet, status post med management and hemodialysis as above 3. Status post seizure, management per primary team 4. Anemia: Hemoglobin stable 5 history of polysubstance abuse. Patient evaluated using audiovisual cart. Time spent 40 minutes. 2. ESRD on dialysis: PDMP PDMP Reviewed: Not Reviewed Consult Attestations Medical Necessity Statement: per medicine team Coding Level of Care Code Acute Code for Chg Fwd Diagnoses Hyperkalemia E87.5 ESRD on dialysis N18.6; Z99.2
[2025-10-07] MEDS: piperacillin-tazobactam 3.375 GM in sodium chloride 0.9% (plus) 50 ML IV ×2 (07:37→19:21)
[2025-10-07] MEDS: FUROsemide 10 mg/mL SDV 10mL 80 MG IVP (07:38)
--- NOTE | 2025-10-07 07:49 | ECG_ITS ---
[facility] Test Date: 2025-10-07 Pat Name: Vance Sianz Department: Room: ICU08 Gender: Male Supervising Bailiff: : [id number] Requested By: Lavern Osuna Order Number: [id number] Danisha MD: VAIBHAV WARREN Measurements Intervals [place] Rate: 88 P: 66 HI: 142 QRS: 38 QRSD: 100 T: 69 QT: 424 QTc: 514 Interpretive Statements SINUS RHYTHM POSSIBLE RIGHT ATRIAL ENLARGEMENT [0.25mV P-WAVE] MODERATE T-WAVE ABNORMALITY, CONSIDER ANTERIOR ISCHEMIA [-0.1+ mV T-WAVE IN V3/V4] Compared to ECG 10/06/2025 16:12:31 Possible ischemia now present Sinus arrhythmia no longer present T-wave abnormality still present Electronically Signed On 10-10-2025 12:07:06 MANAGER PROGRAMS by VAIBHAV WARREN [email or web address]
--- NOTE | 2025-10-07 08:00 | CTR_ITS ---
PROCEDURE INFORMATION: Exam: CT Head Without Contrast Exam date and time: 10/07/2025 12:51 PM Age: 25 years old Clinical indication: Altered mental status/memory loss; Additional info: AMS and seizures? TECHNIQUE: Imaging protocol: Computed tomography of the head without contrast. Axial, coronal and sagittal reformatted images were created and reviewed. Radiation optimization: All CT scans at this facility use at least one of these dose optimization techniques: automated exposure control; mA and/or kV adjustment per patient size (includes targeted exams where dose is matched to clinical indication); or iterative reconstruction. COMPARISON: CT head wo con* [id number] 08/17/2025 8:33 PM RADIATION DOSE METRICS: Total DLP (mGy-cm): 1008.98 FINDINGS: Brain: No CT evidence of acute intracranial hemorrhage or acute territorial infarction. No significant mass effect or midline shift. Basal cisterns patent. Cerebral ventricles: Normal in size and configuration. Paranasal sinuses: Mild polypoid sphenoid and maxillary sinus mucosal thickening. No air-fluid levels. Mastoid air cells: Grossly unremarkable. Bones: Unremarkable. No acute fracture. Soft tissues: Grossly unremarkable. CT/CT head wo con* [id number]: 1[address] No CT evidence of acute intracranial pathology. 2. Additional findings, as above.
[2025-10-07] MEDS: calcium gluconate 0.9% NaCL 1 GM/50 ML PREMIX IV ×2 (08:10→09:46)
--- NOTE | 2025-10-07 09:32 | PC.NURSE ---
BG 67, IV dextrose given per DEC recheck BG 100. Patient is receiving dialysis. 5units IV insulin not given due to BG being 67 and Dialysis in the room setting up.
--- NOTE | 2025-10-07 12:05 | PC.NURSE ---
Patient refused straight cath stating, if you get near me with that thing I will leave. Dr Osuna notified of refusal.
--- NOTE | 2025-10-07 12:37 | PC.PHAR ---
Spoke with [facility] adn they state Patient isn't consistently filling his Prescriptions. Pharmacy states Patient fills and picks up own medications ,and sometimes parents will call and check but not often enough. Patient did fill his Amlodipine and Clonidine 10/06/25 and did pick it up , but all other meds are over 30 , 60 , 90 days late.
[2025-10-07 15:59] LABS: Anion Gap 21.2 (5-19); Blood Urea Nitrogen 20 mg/dL (6-20); Calcium 9.7 mg/dL (8.5-10.5); Carbon Dioxide 26 mmol/L (22-29); Chloride 97 mmol/L (98-107); Glucose 88 mg/dL (65-115); Osmolality Calculated 292 mOsm/kg (285-295); Potassium 4.2 mmol/L (3.5-5.1); Sodium 140 mmol/L (136-145)
--- NOTE | 2025-10-07 16:38 | P.PN_ITS ---
Subjective 2 Subjective: Patient was seen in the morning, he was sleeping no agitation. Overnight the patient was agitated and was started on Precedex which calmed him down. He also required IV doses of antihypertensive medications to control his blood pressure since he was aggressive and uncooperative. I saw the patient in the morning he was stable, I also met his foster mother Ms. Gallo who further explained that she is the DPOA and both the patient and herself had a discussion for his goals of care and the patient always wanted DO NOT RESUSCITATE as his CODE STATUS. And she also want to proceed with that. Patient and the family decisions has been respected and proceeded with it. Vitals/I&O/Wt Last Vital Signs Temp 100.3 F H 10/07/25 15:41 Pulse 99 10/07/25 16:30 Resp 22 H 10/07/25 16:30 BP 143/77 10/07/25 16:30 Pulse Ox 98 10/07/25 16:30 O2 Del Method Room Air 10/07/25 16:30 10/07/25 10/07/25 10/07/25 06:59 14:59 22:59 Intake Total 101.441 / 287.326 9307.75 / 1243.75 Balance 101.441 / 776.213 0467.75 / 1243.75 Weight last 48 hrs Weight 49 kg Weight 52.254 kg Physical Exam 2 Narrative: General: Patient was sleeping however better than yesterday, arousable, euvolemic, at room air saturating 98% HEENT: Normocephalic, atraumatic, grossly unremarkable exam Cardio: Sinus tachycardia, normal S1-S2 without murmurs and rubs Respiratory: Bilateral equal air entry without any wheezes or stridor, no crackles observed GI: Abdomen soft, nontender, nondistended, normoactive bowel sounds present all 4 quadrants, Neuro: Unable to assess since the patient was sleeping Behavior can be uncooperative Extremities: Adequate palpable pulses, patient looks pale but no cyanosis and no decreased capillary refill, adequate palpable pulses present Data 10/07/25 03:48 10/07/25 15:34 Micro: Microbiology 10/06/25 19:57 Blood Culture - Preliminary Blood SPECIMEN COLLECTED 10/06/25 19:42 Blood Culture - Preliminary Blood SPECIMEN COLLECTED A&P Assessment and plan 1. Sepsis: -Collateral history from the girlfriend suspected for sepsis considering having high fevers and chills and tiredness from the last 3 to 4 days, although no WBCs but still patient at risk of infection since she is immunocompromised -Prelim blood cultures negative, unable to get urine culture since the patient did not allow straight cath -Continue Zosyn, and if blood cultures are not suggestive of any infection then to de-escalate/discontinue -Received hemodialysis today and potassium level has improved -Patient has adequate capillary refill and lactate levels improved -Initially acute encephalopathy, CT head was unremarkable -Blood pressure better controlled, keep the MAP above 65 -Maintain euvolemia and hemodialysis sessions accordingly -Telemetry -Maintain intake and output 2. Hypertensive emergency: -Patient received IV labetalol hydralazine in the ER -Patient has history of noncompliance with medications -Currently the blood pressure is better and s/p hemodialysis -Nephro on board and to follow the plan of care -Continue home medication clonidine 0.2 mg p.o. 3 times daily, labetalol 400 mg twice daily, losartan 100 mg daily as needed hypertension -UTOX cannot be collected since the patient refused for straight cath and for urine sample. -Monitor hemodynamics 3. Hyperkalemia: S/p hemodialysis session and resolved Continue to follow 4. Generalized seizure: Patient is euvolemic, lactate improved Continue home medication for seizures Depakote 500 mg twice daily. Check patient pulse ox CT head unremarkable Monitor neurochecks Telemetry 5. Missed dialysis: Nephrology consulted and follow the plan of recommendation To consider hemodialysis as the patient had missed the session today 6. Congestive heart failure: currently euvolemic cont to monitor EF: 62% on 08/12, grade 1/4 diastolic dysfunction monitor hemodynamics telemetry 7. Medical non-compliance: By the patient is stable then to emphasize on medication compliance and to clinical mental health counselor about his medical condition with all the risk and benefits 8. Substance abuse: UTOX Once the patient is stable and alert then to clinical mental health counselor about substance abuse abstinence and inquire PDMP PDMP Reviewed: Not Reviewed Attestations 2 Medical Necessity Statement*: Patient was stable over midnight for the management of his hypertensive urgency anemia that required hemodialysis and need further monitoring with porter sample case involvement before discharge Time Spent in Patient Care: 16 - 35 minutes (>than 50% of time sp ent in counselling and/or direct pt care on unit) . Critical Care Time: The high probability of a clinically significant, sudden or life threatening deterioration, as referenced in this documentation, required my full and direct attention, intervention and personal management. The critical care time shown is in addition to time spent performing any reported separately billable procedures and includes the following: [x] Data and vital sign review and interpretation [x ] Patient assessment, examination and intervention [x] Medication orders and management [x] Patient/Family updates as able [x] Care Coordination and Documentation. Critical Care Time (min): 35 Other Attestations: Patient condition has been discussed at length with the patient/family, I have independently reviewed the chart labs imaging/diagnostics/EKG. the goals of care and code status with the patient/family/NOK/legal b2b outside sales representative, and documented accordingly. I have reconciled the medications after confirmation/comorbidities/current clinical condition. The management has been done according to the current clinical condition with respect to patient goals of care and based on recommendations/guidelines. The patient/family has been informed about the current condition and further plan of care. Agreed with the plan of care and understood without any language barrier. Every effort was made to ensure accuracy of assisted living assistant. Any obvious errors or omissions should be clarified with the author of the document. Coding Level of Care Code Critical Care >/= 30 minutes Diagnoses Sepsis A41.9 Hypertensive emergency I16.1 Hyperkalemia E87.5 Generalized seizure R56.9 Missed dialysis Congestive heart failure I50.9 Medical non-compliance Z91.199 Substance abuse F19.10
[2025-10-08] VITALS (62 sets, daily range): BP systolic 138–205; BP diastolic 71–144; PULSE 56–90; RESP 7–27; TEMP 36.4–37.1; O2SAT 90–100
[2025-10-08] MEDS: HYDROcodone-acetaminophen 5-325 mg Tablet 1 TAB PO ×4 (00:09→12:00)
[2025-10-08] MEDS: labetalol 5 mg/mL SDV 20mL 40 MG IVP ×2 (00:12→03:34)
[2025-10-08] MEDS: haloperidol inj 5 mg/mL INJ 1 mL IVP (00:37)
[2025-10-08 04:29] LABS: Hematocrit 35.5 % (37-53); Hemoglobin 11.10 g/dL (11.27-16.99); Mean Corpuscular HGB Conc 31.3 g/dL (30-55); Mean Corpuscular Hemoglobin 31.8 pg (27-33); Mean Corpuscular Volume 101.7 fl (82-101); Nucleated Red Blood Cells % 0 %; Platelet Count 256 10^3/cmm (157-399); Red Blood Count 3.49 10^6/uL (3.85-5.65); White Blood Count 6.28 10^3/uL (3.29-11.43)
[2025-10-08] MEDS: divalproex DR 500 mg Tablet PO (04:43)
[2025-10-08] MEDS: pantoprazole 40 mg SDV IVP (04:46)
[2025-10-08 05:02] LABS: Alanine Aminotransferase < 5 U/L (0-41); Albumin Level 4.4 g/dL (3.5-5.2); Alkaline Phosphatase 79 U/L (40-130); Anion Gap 20.9 (5-19); Aspartate Amino Transferase 12 U/L (0-40); Blood Urea Nitrogen 24 mg/dL (6-20); Calcium 9.4 mg/dL (8.5-10.5); Carbon Dioxide 28 mmol/L (22-29); Chloride 95 mmol/L (98-107); Globulin 1.7 g/dL (1.3-4.6); Glucose 106 mg/dL (65-115); Osmolality Calculated 294 mOsm/kg (285-295); Potassium 3.9 mmol/L (3.5-5.1); Sodium 140 mmol/L (136-145); Total Protein 6.1 g/dL (6.6-8.7)
--- NOTE | 2025-10-08 06:35 | PC.NURSE ---
Agitation: Overnight, patient had multiple outbursts and threatened to leave AMA stating you guys aren't doing anything for me! . This nurse, along with Dr. Ayala, were able to deescalate the patient and he agreed to stay, however, patient continues to have angry outbursts when he does not agree with the treatment and will throw things and yell at staff.
[2025-10-08] MEDS: piperacillin-tazobactam 3.375 GM in sodium chloride 0.9% (plus) 50 ML IV (08:11)
[2025-10-08] MEDS: morphine 4 mg/mL SDV 1 mL IVP (08:18)
[2025-10-08] MEDS: heparin, porcine 1,000 unit/mL INJ 10 mL 1000 UNIT IV (11:40)
[2025-10-08] MEDS: diphenhydrAMINE 50 mg/mL SDV 1mL IVP (12:05)
--- NOTE | 2025-10-08 15:49 | PC.NURSE ---
Discharge Patient received dialysis today. 2 L removed. Received full treatment. Post dialysis, patient ambulated approximately 200 feet. States he fells capable of completing his ADLs. Received discharge orders. New medications sent to [facility]. Unable to make appointment with primary care provider Beverly Veronica, unable to leave message as they have no messaging/after hours appointment service. Instructions included with discharge instruct patient to contact PCP. Nurse encouraged the patient to contact [facility] on thursday to double check his pre-existing dialysis schedule as there may be changes due to the upcoming holiday. Patient states that he is aware of the schedule changes and he has an updated schedule at home. Both IVs to left are removed before discharge.
--- NOTE | 2025-10-08 19:49 | PM.DCS ---
Discharge Providers Date of Admission: 10/06/25 17:54 Date of Discharge: October 08, 2025 Attending Provider at Admission: Lavern Osuna MD Attending Provider at Discharge: Lavern Osuna MD Primary Care Provider: Beverly Veronica MD Diagnoses at Discharge Discharge Diagnosis 1. Sepsis: 2. Hypertensive emergency: 3. Hyperkalemia: 4. Generalized seizure: 5. Missed dialysis: 6. Congestive heart failure: 7. Medical non-compliance: 8. Substance abuse: Reason for Visit Reason for Visit: possible seizure Brief History: History at the time of admission: It was taken from the patient's girlfriend and the foster monitor during his stay, since he was obtunded after getting lorazepam from the ER due to his aggressive behavior and uncooperative behavior: Vance Sainz is a 25 year old male with past medical history of multiple admissions secondary to noncompliance to his hemodialysis and medications and also history of polysubstance use disorder, presented to ER via EMS as he was having dialysis for an hour and had a witnessed seizures, the second seizure happened while he was coming through EMS and route. He was postictal on arrival. The patient girlfriend further explained that he has been feeling unwell from the last 3 to 4 days and was having fevers and chills. He has been laying in the bed from the last 3 to 4 days. But no shortness of breath lower leg swellings or chest pain or chest pressure complaints were endorsed to the girlfriend. She further mentioned that on and off he misses his medications and is noncompliant but from the last few days he has been compliant to his hemodialysis sessions. He further mentioned that he was also having on and off jerking movements from the last 3 to 4 days but was not much postictal, however she is unable to further elaborate on this query. Patient admitted in ER as a case of hypertensive urgency which could be triggered due to seizures requiring ICU monitoring and further management Hospital Course Hospital Course During patient hospital stay he was admitted as a case of hypertensive emergency, hyperkalemia, noncompliance to medication and dialysis, hence possible sepsis based on history. Sepsis workup sent, it was unremarkable till the time of discharge for any infectious pathology based on blood cultures and WBCs. He did not receive sepsis bolus since patient was dialysis dependent and there was adequate perfusion with MAP. And also there was a risk of fluid overload. For his hypertensive emergency his home medications were resumed and he also received IV labetalol and hydralazine which further optimized his blood pressure. Architectural Intern was consulted and appreciated the recommendations. He received hemodialysis session and potassium level improved. Home medications were resumed. The most likely reason of his current admission was noncompliance to hemodialysis and medications. Upon further discussion when the patient was stabilized and also with the girlfriend and the foster mother Ms. Gallo it was informed that the patient does not want to have endotracheal intubation and would only prefer chest compression or shocks when he his heart stops in terms of his resuscitation. It was documented in proceeded accordingly. Over the course of hospital he stabilized after resumption of his home medications and regular dialysis session. His hospital course was uncomplicated Medications were reconciled after confirmation and according to patient comorbidities and appropriate follow-ups and referrals were provided at the time of discharge. Patient condition has been discussed at length with the patient/family, I have independently reviewed the chart labs imaging/diagnostics/EKG. the goals of care and code status with the patient/family/NOK/legal senior customer service representative, and documented accordingly. The management has been done according to the current clinical condition with respect to patient goals of care and based on recommendations/guidelines. The patient/family has been informed about the current condition and further plan of care. Agreed with the plan of care and understood without any language barrier. 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 Any obvious errors or omissions should be clarified with the author of the document. Physical Exam Narrative: General: Patient was sleeping however better than yesterday, arousable, euvolemic, at room air saturating 98% HEENT: Normocephalic, atraumatic, grossly unremarkable exam Cardio: Sinus tachycardia, normal S1-S2 without murmurs and rubs Respiratory: Bilateral equal air entry without any wheezes or stridor, no crackles observed GI: Abdomen soft, nontender, nondistended, normoactive bowel sounds present all 4 quadrants, Neuro: Unable to assess since the patient was sleeping Behavior can be uncooperative Extremities: Adequate palpable pulses, patient looks pale but no cyanosis and no decreased capillary refill, adequate palpable pulses present Discharge Data Studies Completed and Pending Completed Studies During Hospitalization Category Date Time Status CT head wo con* [id number] Stat Cat Scan 10/07/25 08:00 Completed XR chest 1V portable [id number] Stat Exams 10/06/25 16:19 Completed Pending at discharge Category Date Time Status Blood Culture Stat Lab 10/06/25 19:57 Results Radiology Impressions Chest X-Ray 10/06/25 16:19 IMPRESSION: No acute findings. Head CT 10/07/25 08:00 IMPRESSION: 1. No CT evidence of acute intracranial pathology. 2. Additional findings, as above. Laboratory Results WBC 6.28 10^3/uL (3.29-11.43) 10/08/25 03:53 RBC 3.49 10^6/uL (3.85-5.65) L 10/08/25 03:53 Hgb 11.10 g/dL (11.27-16.99) L 10/08/25 03:53 Hct 35.5 % (37-53) L 10/08/25 03:53 MCV 101.7 fl (82-101) H 10/08/25 03:53 MCH 31.8 pg (27-33) 10/08/25 03:53 MCHC 31.3 g/dL (30-55) 10/08/25 03:53 RDW 19.9 % (12.1-15.1) H 10/08/25 03:53 Plt Count 256 10^3/cmm (157-399) 10/08/25 03:53 MPV 10.6 fL (7.4-10.4) H 10/08/25 03:53 Neut % (Auto) 67.9 % 10/08/25 03:53 Lymph % (Auto) 15.0 % 10/08/25 03:53 Rowan % (Auto) 13.4 % 10/08/25 03:53 Eos % (Auto) 2.4 % 10/08/25 03:53 Baso % (Auto) 1.1 % 10/08/25 03:53 Neut # (Auto) 4.27 10^3/uL (1.8-7.7) 10/08/25 03:53 Lymph # (Auto) 0.9 10^3/uL (0.8-4.8) 10/08/25 03:53 Rowan # (Auto) 0.8 10^3/uL (0.2-0.9) 10/08/25 03:53 Eos # (Auto) 0.2 10^3/uL (0.0-0.8) 10/08/25 03:53 Baso # (Auto) 0.1 10^3/uL (0.0-0.1) 10/08/25 03:53 Nucleated RBC % (auto) 0 % 10/08/25 03:53 Nucleated RBCs # 0.0 /100WBC 10/08/25 03:53 Specimen Type Arterial 10/06/25 16:28 Sample Site Radial, left 10/06/25 16:28 ABG pH 7.39 (7.35-7.45) 10/06/25 16:28 ABG pCO2 45.4 mmHg (35-45) H 10/06/25 16:28 ABG pO2 56.8 mmHg (80.0-100.0) L 10/06/25 16:28 ABG PO2/FiO2 Ratio 270 10/06/25 16:28 ABG HCO3 27.7 mmol/L (22-26) H 10/06/25 16:28 ABG O2 Saturation 88.2 10/06/25 16:28 ABG Base Excess 2.3 mmol/L (-2.0-2.0) H 10/06/25 16:28 Paul Test Pos 10/06/25 16:28 A-a O2 Gradient 4.9 mmHg (5-10) L 10/06/25 16:28 Hematocrit 32.7 % (42-52) L 10/06/25 16:28 Hgb O2 Saturation 84.9 % (95-100) L 10/06/25 16:28 Carboxyhemoglobin 3.6 %THgb (0.4-20.1) 10/06/25 16:28 Methemoglobin 0.1 % (0.4-1.5) L 10/06/25 16:28 Total Hemoglobin 10.7 g/dL (14-18) L 10/06/25 16:28 Sodium 139.0 mmol/L (131-143) 10/06/25 16:28 Potassium 5.0 mmol/L (3.5-5.0) 10/06/25 16:28 Glucose 80.0 mg/dL (70-115) 10/06/25 16:28 Ionized Calcium 1.1 mmol/L (1.1-1.4) 10/06/25 16:28 O2 Delivery Device Room air 10/06/25 16:28 FiO2 21.0 % 10/06/25 16:28 Electrical Line Splicer ID glc 10/06/25 16:28 Sodium 140 mmol/L (136-145) 10/08/25 03:53 Potassium 3.9 mmol/L (3.5-5.1) 10/08/25 03:53 Chloride 95 mmol/L (98-107) L 10/08/25 03:53 Carbon Dioxide 28 mmol/L (22-29) 10/08/25 03:53 Anion Gap 20.9 (5-19) H 10/08/25 03:53 BUN 24 mg/dL (6-20) H 10/08/25 03:53 Creatinine 6.6 mg/dL (0.7-1.2) H* 10/08/25 03:53 GFR Calculation 10.3 mL/min (90-130) L 10/08/25 03:53 Glucose 106 mg/dL (65-115) 10/08/25 03:53 POC Glucose 95 mg/dL (70-110) 10/07/25 14:48 Calculated Osmolality 294 mOsm/kg (285-295) 10/08/25 03:53 Lactic Acid 10.3 mmol/L (0.5-2.2) H* 10/06/25 16:20 Lactic Acid (Sepsis) 1.6 mmol/L (0.5-2.2) 10/06/25 20:23 Calcium 9.4 mg/dL (8.5-10.5) 10/08/25 03:53 Magnesium 2.9 mg/dL (1.7-2.3) H 10/06/25 16:20 Total Bilirubin 0.4 mg/dL (0.15-1.2) 10/08/25 03:53 AST 12 U/L (0-40) 10/08/25 03:53 ALT < 5 U/L (0-41) 10/08/25 03:53 Alkaline Phosphatase 79 U/L (40-130) 10/08/25 03:53 Total Protein 6.1 g/dL (6.6-8.7) L 10/08/25 03:53 Albumin 4.4 g/dL (3.5-5.2) 10/08/25 03:53 Globulin 1.7 g/dL (1.3-4.6) 10/08/25 03:53 Valproic Acid 2.8 ug/mL (50-100) L 10/06/25 16:20 Vitals Last Vital Signs Temp 97.8 F 10/08/25 15:46 Pulse 80 10/08/25 15:46 Resp 20 H 10/08/25 15:46 BP 168/94 10/08/25 15:46 Pulse Ox 99 10/08/25 15:46 O2 Del Method Nasal Cannula 10/08/25 14:00 O2 Flow Rate 5 10/08/25 14:00 Discharge Plan Discharge Patient Disposition: Home Condition: Stable Prescriptions: New pantoprazole 20 mg tablet,delayed release (DR/EC) 20 mg PO DAILY Qty: 60 0RF Continued sumatriptan 20 mg/actuation spray,non-aerosol 20 mg INTRANASAL Q12H PRN (Reason: Migraine Headache) hydralazine 100 mg tablet 100 mg PO TID Lokelma 5 gram powder in packet 5 g PO DAILY Qty: 11 2RF prednisone 5 mg tablet 5 mg PO DAILY labetalol 200 mg Tablet 400 mg PO BID Qty: 60 3RF morphine 15 mg tablet 15 - 30 mg PO Q6H PRN (Reason: intractable pain) Qty: 90 0RF clonidine HCl 0.2 mg tablet 0.2 mg PO Q8H oxycodone 10 mg tablet 10 mg PO Q6H PRN (Reason: Pain) Rx Instructions: max daily 40mg clonazepam [Klonopin] 1 mg tablet 1 mg PO BID PRN (Reason: anxiety) Qty: 10 0RF acetaminophen 325 mg Tablet 650 mg PO Q6H PRN (Reason: Mild/Mod Pain Or Temp >/= 101) Qty: 30 0RF divalproex 500 mg Tablet,Delayed Release (Dr/Ec) 500 mg PO BID Qty: 60 0RF losartan 50 mg Tablet 100 mg PO DAILY 30 Days Qty: 120 0RF nifedipine 90 mg tablet extended release 90 mg PO DAILY 30 Days Qty: 30 0RF 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 Please Call on thursday to make appointment. Discharge Diet: Advance as tolerated and Low Salt Discharge Activity: Resume usual activity Patient Instructions: Pantoprazole (By mouth) (Protonix), Opioid Safety, Pain Management, Patient Portal & [facility]ria Instructions Discharge Attestations Time Spent in Discharge Care*: greater than 30 min Specific Discharge Activities: educating patient, educating and/or supporting family/caregiver, discussing with pcp/other providers, discussing with case checker/social workers/dc planners, documenting/other paperwork and evaluating patient/reviewing data Status at Discharge: Cognitive status at discharge: cognitively intact, Behavioral status at discharge: cooperative and can be uncooperative, Overall status at discharge: patient is back to baseline Quality Metrics Clinical Quality Measures [ No reported AMI, CVA or VTE this stay] Coding Level of Care Code Critical Care >/= 30 minutes Diagnoses Sepsis A41.9 Hypertensive emergency I16.1 Hyperkalemia E87.5 Generalized seizure R56.9 Missed dialysis Congestive heart failure I50.9 Medical non-compliance Z91.199 Substance abuse F19.10
== END 2025-10-08 16:00 | disposition home or self-care (01) | DRG 640 ==
LOC: ER 19:25 → ICU 19:40
PROVIDERS: Admitting Provider Student in an Organized Health Care Education/Training Program; Emergency Provider Family Medicine; PCP Family Medicine; Visit Provider Student in an Organized Health Care Education/Training Program
DX: E87.5 Hyperkalemia (principal); N18.6 End stage renal disease; I16.1 Hypertensive emergency; D84.9 Immunodeficiency, unspecified; T86.12 Kidney transplant failure; I13.2 Hypertensive heart and chronic kidney disease with heart failure and with stage 5 chronic kidney disease, or end stage renal disease; G40.909 Epilepsy, unspecified, not intractable, without status epilepticus; Z66 Do not resuscitate; F41.1 Generalized anxiety disorder; I50.9 Heart failure, unspecified; F19.10 Other psychoactive substance abuse, uncomplicated; D63.1 Anemia in chronic kidney disease; F17.290 Nicotine dependence, other tobacco product, uncomplicated; Z91.148 Patient's other noncompliance with medication regimen for other reason; Z99.2 Dependence on renal dialysis; Z79.899 Other long term (current) drug therapy; Z88.8 Allergy status to other drugs, medicaments and biological substances; Z91.158 Patient's noncompliance with renal dialysis for other reason
CPT/HCPCS: 36415; 36416; 36600; 70450; 71045; 80048; 80051; 80053; 80164; 82330; 82805; 82962; 83605; 83735; 85025; 87040; 90935; 93005; 96365; 96367; 96372; 96375; 99291; J0360; J0612; J1200; J1630; J1644; J1815; J1938; J1953; J2060; J2270; J2405; J2470; J2543; J3490; J7120; J7799; J9999; Q3014